=== PATIENT | male | born 1935 | race Caucasian/White ===

== ENCOUNTER → 2021-11-28 | Outpatient (CLI) | payer MEDICARE, SELFPAY ==
[2021-11-28 11:39] LABS: Absolute Lymphocyte Count 3.25 X10^3/uL (0.83-4.51); Absolute Neutrophil Count 2.6 X10^3/uL (2.0-7.7); Basophil# 0.04 X10^3/uL; Basophil% 0.6 % (0-1); Eosinophil# 0.09 X10^3/uL; Eosinophils% 1.4 % (0-5); Hematocrit 43.5 % (40-54); Hemoglobin 14.5 g/dL (13.0-16.5); Lymphocyte # 3.25 X10^3/ul (0.83-4.51); Lymphocyte % 50.5 % (19-41); Mean Corp Hgb Conc 33.3 g/dL (32-36); Mean Corpuscular Hgb 33.2 pg (27.0-32.0); Mean Corpuscular Volume 99.5 fL (80-94); Mean Platelet Vol. 10.8 fl (6.2-12.0); Monocyte# 0.44 X10^3/uL; Monocyte% 6.8 % (0-10); NRBC Flagged by Analyzer 0 % (0-5); Neutrophil # 2.59 X10^3/uL (2.7-7.7); Neutrophil % 40.4 % (47-70); Platelet Count 193 K/mm3 (150-450); RBC Distribution Width CV 13.2 % (11.6-14.6); RBC Distribution Width SD 48.6 fl (35.1-43.9); Red Blood Count 4.37 M/mm3 (4.6-6.2); White Blood Count 6.4 K/mm3 (4.4-11.0)
[2021-11-28 12:07] LABS: ALB/GLOB Ratio 0.9 RATIO (0.9-2.4); AST(SGOT) 19 U/L (15-37); Alanine Aminotransfer ALT/SGPT 16 U/L (16-61); Albumin, Serum 3.4 g/dL (3.2-5.0); Alkaline Phosphatase 55 U/L (45-117); Anion Gap 2 (5-15); BUN 25 mg/dL (7-18); BUN/Creat Ratio 22.1 RATIO (10-20); Chloride 111 mmol/L (98-107); Cholesterol 167 mg/dL (200); Creatinine, Serum 1.13 mg/dL (0.70-1.30); EST Glomerular Filtration Rate 66 mL/min (>60); Est Glom Filt Rate - Afr Amer 79 mL/min (>60); Globulin 3.7 g/dL (2.2-4.2); Glucose 122 mg/dL (74-106); High Density Lipoprotein 54 mg/dL; Potassium 4.6 mmol/L (3.5-5.1); Protein, Total 7.1 g/dL (6.4-8.2); Sodium Level 142 mmol/L (136-145); Triglycerides 67 mg/dL; Very Low Density Lipoprotein 13 mg/dL (5-40)
== END | disposition home or self-care (01) ==
PROVIDERS: PCP Internal Medicine; Referring Provider Internal Medicine; Visit Provider Internal Medicine
DX: E11.9 Type 2 diabetes mellitus without complications (principal)
CPT/HCPCS: 36415; 80053; 80061; 85025

== ENCOUNTER → 2023-01-21 | Outpatient (CLI) | payer MEDICARE, SELFPAY ==
[2023-01-21 11:33] LABS: Bacteria 0 SEEN /hpf (None Seen); Mucous, Urine 0 SEEN /hpf (<or=2+); Red Blood Cells-Urine 0 SEEN /hpf (0-5); Squamous Epithelial Cells - UA 0 SEEN /hpf (0-5); White Blood Cells 0 SEEN /hpf (0-5)
[2023-01-21 12:23] LABS: Color, Urine Yellow (Yellow); Glucose, Dipstick Normal (Normal); Ketone-Dipstick 5 mg/dl (Negative); Leukocyte Esterase-Dipstick Negative /ul (Negative); Nitrite-Dipstick Negative (Negative); Occult Blood-Urine Negative /ul (Negative); Protein-Dipstick Negative (Negative); Urine Bilirubin Dipstick Negative (Negative); Urine Clarity Clear (Clear); Urine Urobilinogen Normal (Normal)
[2023-01-21 12:28] LABS: Erythrocyte Sedimentation Rate 6 mm/hr (0-20)
[2023-01-21 12:30] LABS: Absolute Lymphocyte Count 2.87 X10^3/uL (0.83-4.51); Absolute Neutrophil Count 3.1 X10^3/uL (2.0-7.7); Basophil# 0.04 X10^3/uL; Basophil% 0.6 % (0-1); Eosinophil# 0.08 X10^3/uL; Eosinophils% 1.2 % (0-5); Hematocrit 46.1 % (40-54); Hemoglobin 14.9 g/dL (13.0-16.5); Lymphocyte # 2.87 X10^3/ul (0.83-4.51); Lymphocyte % 43.9 % (19-41); Mean Corp Hgb Conc 32.3 g/dL (32-36); Mean Corpuscular Volume 102.2 fL (80-94); Mean Platelet Vol. 10.5 fl (6.2-12.0); Monocyte# 0.45 X10^3/uL; Monocyte% 6.9 % (0-10); NRBC Flagged by Analyzer 0 % (0-5); Neutrophil # 3.08 X10^3/uL (2.7-7.7); Neutrophil % 47.1 % (47-70); Platelet Count 213 K/mm3 (150-450); RBC Distribution Width CV 13.3 % (11.6-14.6); RBC Distribution Width SD 50.8 fl (35.1-43.9); Red Blood Count 4.51 M/mm3 (4.6-6.2); White Blood Count 6.5 K/mm3 (4.4-11.0)
[2023-01-21 13:27] LABS: ALB/GLOB Ratio 0.9 RATIO (0.9-2.4); AST(SGOT) 14 U/L (15-37); Alanine Aminotransfer ALT/SGPT 15 U/L (16-61); Albumin, Serum 3.5 g/dL (3.2-5.0); Alkaline Phosphatase 84 U/L (45-117); Anion Gap 7 (5-15); BUN 22 mg/dL (7-18); BUN/Creat Ratio 19.8 RATIO (10-20); Calcium,Total 9.2 mg/dL (8.5-10.1); Chloride 109 mmol/L (98-107); Cholesterol 164 mg/dL (200); Creatinine, Serum 1.11 mg/dL (0.70-1.30); EST Glomerular Filtration Rate 67 mL/min (>60); Est Glom Filt Rate - Afr Amer 81 mL/min (>60); Globulin 3.7 g/dL (2.2-4.2); Glucose 129 mg/dL (74-106); High Density Lipoprotein 54 mg/dL; Potassium 4.6 mmol/L (3.5-5.1); Protein, Total 7.2 g/dL (6.4-8.2); Sodium Level 141 mmol/L (136-145); T4 Free Direct 1.15 ng/dL (0.76-1.46); Thyroid Stim Hormone (TSH) 1.86 uIU/mL (0.358-3.74); Triglycerides 88 mg/dL; Very Low Density Lipoprotein 18 mg/dL (5-40)
== END | disposition home or self-care (01) ==
LOC: BIMLAB 08:47
PROVIDERS: PCP Internal Medicine; Referring Provider Internal Medicine; Visit Provider Internal Medicine
DX: E11.9 Type 2 diabetes mellitus without complications (principal); N40.0 Benign prostatic hyperplasia without lower urinary tract symptoms; Z12.5 Encounter for screening for malignant neoplasm of prostate
CPT/HCPCS: 36415; 80053; 80061; 81001; 84153; 84439; 84443; 85025; 85652; G0103

== ENCOUNTER 2023-02-12 12:53 | Observation (INO) | payer MEDICARE, SELFPAY ==
[2023-02-12 12:54] VITALS: BP 141/89; PULSE 74; RESP 18; TEMP 36.6; O2SAT 97; BMI 25.5
--- NOTE | 2023-02-12 14:11 | EX.ED.UPPERE ---
HPI History of Present Illness HPI Narrative: On Wednesday injuring his left upper extremity. Has developed pain, redness and swelling in the forearm and elbow. Was seen today in urgent care they did x-rays of the elbow, left forearm, left hand and wrist. There is soft tissue swelling but no broken bones. Sent to the emergency department. Chief Complaint: Upper Extremity Injury Informant: patient and spouse/S.O. Occured/Mechanism Mechanism/Context: Yes injury and Yes blunt trauma Onset/Context/Timing Onset: Days Context: Sudden Onset Timing: Continuous Quality of Pain: Dull and Aching Current Severity: Moderate Maximum Severity: Moderate Associated Symptoms Associated Symptoms: Negative for Parasthesia Narrative Narrative: 87-year-old male no seen past medical history. States that he tripped and fell at home over his slippers on Wednesday morning since that time he has developed redness and swelling to his left elbow and forearm. Trouble using the left arm. Denies shoulder pain. Denies wrist or hand pain. Was seen in urgent care earlier today had x-ray showing soft tissue swelling but no fracture. He was sent to the emergency department. Prior similar symptoms: No Recent Illness/Hospitalization: No PFSH PFSH Medical History (Updated 02/12/23 @ 15:[address] Mariana Brown MD) Bone fracture BPH (benign prostatic hyperplasia) Change in skin mole Elevated PSA Flu vaccine need Hypertension Type 2 diabetes mellitus Weight loss, non-intentional Home Medications multivitamin (Daily Multi-Vitamin tablet) 1 tab PO DAILY 02/12/23 [History Last Taken 02/12/23] Allergy/AdvReac Type Severity Reaction Status Date / Time shellfish derived Allergy Mild swelling Verified 02/12/23 12:54 in throat Family History Father Melanoma Mother Ovarian cancer Surgical History (Updated 02/12/23 @ 15:[address] Mariana Brown MD) History of dental surgery Social History (Updated 02/12/23 @ 15:[address] Mariana Brown MD) household members: spouse Smoking Status: Never smoker alcohol intake: never substance use type: does not use what type of physical activity do you participate in: none ROS ROS ED ROS Narrative Denies recent illness. Review of Systems ROS Unobtainable: Denies due to encephalopathy Constitutional Constitutional ED: Denies chills or fever(s) Eyes Eyes: Denies blurry vision ENT ENT ED: Denies ear pain Cardiovascular Cardiovascular: Denies chest pain or palpitations Respiratory/Chest Respiratory/Chest: Denies cough or dyspnea Gastrointestinal Gastrointestinal: Denies abdominal pain Genitourinary Genitourinary ED: Denies dysuria or hematuria Musculoskeletal Musculoskeletal: Denies back pain Integumentary Denies abscess Neurologic Neurologic: Denies headache(s) Psychiatric Psychiatric: Denies anxiety Endocrine Endocrinology: Denies cold intolerance Hematologic/Lymphatic Hematologic/Lymphatic: Denies easy bleeding or easy bruising Allergic/Immunologic Allergic/Immunologic ED: Denies mouth swelling or tongue swelling EXAM Physical Exam Narrative Exam Narrative: 87-year-old male. Vital signs stable afebrile. HEENT exam unremarkable atraumatic. Moist mucous membranes. Neck nontender. Back spine nontender. Lungs clear to auscultation bilaterally. Heart regular rhythm rate about 70 no murmur. Chest wall and ribs nontender. Abdomen soft nontender. Right upper and both lower extremities are nontender. No deformity. Normal range of motion. Normal strength. He does have 1+ pitting edema both lower extremities which is chronic. The left shoulder is nontender is able to shrug the shoulder. There is no deformity. From the left elbow down to the left hand is swollen. Redness consistent with cellulitis of the elbow and proximal and mid forearm. There does not appear to be a septic joint. He can flex and extend the elbow. He has a strong radial pulse. He has hairspring staker strength in his left hand. And sensation. Neurologically he is awake and alert. Answering questions and following commands. Const Vital Signs: 02/12/23 12:54 Temperature 97.8 F Temperature Source Temporal Pulse Rate 74 Respiratory Rate 18 Blood Pressure 141/89 H Blood Pressure Mean 106 Pulse Ox 97 Oxygen Delivery Method Room Air Positive well nourished and well developed; Negative for cachectic, contractures or unkempt General Appearance ED: well developed and NAD; Negative for unkempt, cachectic, contractures, cyanotic or diaphoretic Nutritional Appearance: Negative for cachectic HEENT Reports moist mucous membranes normocephalic and atraumatic; Negative for trauma or tenderness Eyes PERRL and EOMs intact bilaterally General Eye ED: Negative for other Neck full ROM and supple General: Negative for tenderness Lymph Lymphatic: Negative for other Chest Wall inspection of chest normal and palpation of chest normal Chest: Negative for other Resp normal respiratory effort and clear to auscultation bilaterally Effort and Inspection: Negative for pain with movement Auscultation: Negative for rales, rhonchi, wheezes or diminished lung sounds Cardio regular rate, regular rhythm, S1 normal heart sound, S2 normal heart sound and no murmurs Rate: Negative for bradycardia or tachycardic GI non-tender, non-distended and no masses Inspection: Negative for abdominal distention Auscultation: normoactive bowel sounds Palpation: soft; Negative for tender or guarding Bladder / Kidney Exam: No other Back/Spine no CVA tenderness General Back: Negative for CVA tenderness Cervical Spine: Negative for cervical spine tenderness Thoracic Spine / Upper Back: Negative for thoracic spinal tenderness Lumbar Spine / Lower Back: Negative for lumbar spinal tenderness Extremity Negative for normal to inspection Extremity Narrative: Left arm cellulitis. From the elbow to the wrist. Normal hairspring staker strength. Normal radial pulse. Swelling of the forearm, elbow and hand. The proximal humerus is nontender. No deformity. He is able to shrug his shoulder. Normal touch sensation in his hand. Normal radial pulse. General Extremety ED: Yes edema General Extremity: edema Neuro oriented x3, CN's II-XII intact bilaterally and moves all extremities Sensorium / Orientation: alert, oriented to person, oriented to place and oriented to time; Negative for orientation impaired, lethargic or stuporous Motor Exam: strength 5/5 throughout Psych mental status grossly normal Appearance: Negative for unkempt Attitude: No agitated Mood & Affect: Negative for depressed, anxious or tearful Skin Skin Narrative: Cellulitis left forearm. General Skin Exam: Negative for petechiae Lesions: no lesions Rashes: No no rashes MDM MDM MDM Narrative Medical decision making narrative: There is [id number] male who has had recent falls. Is soft tissue swelling to his left arm. There is also cellulitis. Will be started on IV Unasyn. Screening labs to be obtained. He had x-rays already done at the urgent care today I reviewed them the elbow, forearm, wrist and hand have no acute fractures. Soft tissue swelling. I am can obtain an x-ray of his humerus but I do not believe there to be a fracture. No signs of a septic joint and he can flex and extend the elbow and the wrist. Repeat exam patient doing well at 2:58 PM. Given morphine for pain Zofran to prevent nausea. Will be placed in a long arm posterior splint of the left upper arm to immobilize the midshaft humerus fracture. He will be admitted to medicine and they can consult orthopedics. History & Record Review Discussion w/independent historian: Patient and Family Additional record(s) reviewed:: Prior inpatient record, Prior outpatient record, Prior ED visit and Prior labs Lab Data Attestation: I reviewed the patient's lab results. Lab results narrative: CBC unremarkable. White count of 7. H&H 14 and 44. Chemistries unremarkable other than BUN 28 creatinine 1. Glucose 145. Admitting physician ordered a noninvasive study of the left upper extremity there was no signs of any DVT. Radiography Diagnostic Testing: Left humerus x-ray 2 views interpreted by myself shows a midshaft humerus fracture with mild angulation. Procedures Upper Extremity Splints Upper Extremity Splint: Orthoglass and Long arm Splint Fabrication: Fabricated Location: Left Discharge Plan Dx/Rx/DC Orders Clinical Impression: Fall, Cellulitis of arm, left, Closed left humeral fracture, History of diabetes mellitus Disposition Disposition: Acute Care Hospital [facility]
--- NOTE | 2023-02-12 14:20 | RAD_ITS ---
STUDY: X-RAY - LEFT HUMERUS REASON FOR EXAM: Male, 87 years old. Pain following a fall. TECHNIQUE: 2 view(s) of the humerus. COMPARISON: None. FINDINGS: Transverse fracture through the mid humeral diaphysis. This is suspicious for a pathological fracture. There is no demonstrated fracture or osseous destructive process. Soft tissue swelling. RAD/Humerus min 2 Views IMPRESSION: Transverse fracture through the mid humeral diaphysis. This is suspicious for a pathological fracture. Electronically Signed: Jai Menjviar MD at 14:42 EDT ,
[2023-02-12 14:26] LABS: Absolute Lymphocyte Count 1.81 X10^3/uL (0.83-4.51); Absolute Neutrophil Count 5.2 X10^3/uL (2.0-7.7); Basophil# 0.03 X10^3/uL; Basophil% 0.4 % (0-1); Eosinophil# 0.04 X10^3/uL; Eosinophils% 0.5 % (0-5); Hematocrit 44.4 % (40-54); Hemoglobin 14.4 g/dL (13.0-16.5); Lymphocyte # 1.81 X10^3/ul (0.83-4.51); Lymphocyte % 23.5 % (19-41); Mean Corp Hgb Conc 32.4 g/dL (32-36); Mean Corpuscular Hgb 32.7 pg (27.0-32.0); Mean Corpuscular Volume 100.7 fL (80-94); Mean Platelet Vol. 9.2 fl (6.2-12.0); Monocyte# 0.63 X10^3/uL; Monocyte% 8.2 % (0-10); NRBC Flagged by Analyzer 0 % (0-5); Neutrophil # 5.15 X10^3/uL (2.7-7.7); Neutrophil % 66.8 % (47-70); Platelet Count 160 K/mm3 (150-450); RBC Distribution Width SD 48.6 fl (35.1-43.9); Red Blood Count 4.41 M/mm3 (4.6-6.2); White Blood Count 7.7 K/mm3 (4.4-11.0)
[2023-02-12 14:32] VITALS: BP 150/67; PULSE 77; RESP 20; O2SAT 98
--- OUTSIDE RECORDS SUMMARY | 2023-02-12 14:35 | XMS RPT_ITS | CCD ---
Author Name Unknown Address [address] [place] [address] Organization [facility] Care Team Providers Care Religious Activities Director Name Role Phone Catarina Corcoran MD Primary Care Provider Allergies Allergy Classification Reported Allergen(s) Allergy Type Date of Onset Reaction(s) Facility (1 source) Shellfish Drug Allergy 12-12-2015 Swelling [facility] Medications Completed/Discontinued Medications Medication Drug Class(es) Dates Sig (Normalized) Sig (Original) 24 hr metFORMIN hydrochloride 500 mg extended release oral tablet (2 sources) Biguanide Start: 12-13-2020 End: 12-10-2021 metFORMIN ER (GLUCOPHAGE XR) 500 mg 24 hr tablet Indications: Controlled type 2 diabetes mellitus with stage 3 chronic kidney disease, without long-term current use of insulin (HCC) TAKE 1 TABLET BY MOUTH EVERY DAY WITH BREAKFAST 90 tablet 0 12/10/2021 Active Problems Active Problems Problem Classification Problem Date Documented Da te Episodic/Chronic Diabetes mellitus with complications (1 source) Type 2 diabetes mellitus; Translations: [Type 2 diabetes mellitus with diabetic chronic kidney disease] Chronic Past or Other Problems Problem Classification Problem Date Documented Da te Episodic/Chronic Fracture of lower limb (1 source) Closed fracture of fibula; Translations: [Unspecified fracture of shaft of unspecified fibula, initial encounter for closed fracture] Onset: 12-24-2015 12-24-2015 Episodic Results Test Name Value Interpretation Reference Range Facil ity Encounters Encounter Date Encounter Type Care Provider Facility Start: 12-10-2021 Refill Glen Roach PRN.CNP Work Phone: [facility] Plan of Treatment Date Care Activity Detail Author Start: 11-23-2023 DIABETES SCREEN DIABETES SCREEN [facility] Start: 01-22-2022 Influenza vaccination INFLUENZA (#1) [facility] Start: 05-24-2021 ADVANCE DIRECTIVE DISCUSSION ADVANCE DIRECTIVE DISCUSSION [facility] Start: 02-18-2021 COVID-19 VACCINE (3 - Booster for Moderna series) COVID-19 VACCINE (3 - Booster for Moderna series) [facility] Start: 02-07-2021 PNEUMOCOCCAL: 65+ (2 - PPSV23 or PCV20) PNEUMOCOCCAL: 65+ (2 - PPSV23 or PCV20) [facility] Start: 1954 Urine microalbumin profile DTAP,TDAP ,TD (1 - Tdap) [facility] Immunizations Immunization Date Immunization Notes Care Provider Fa clay 09-18-2020 COVID-19 vaccine, fu ll dose (MODERNA) Glen Montalvo APRN.[facility] Work Phone: [facility] 08-20-2020 COVID-19 vaccine, fu ll dose (MODERNA) Glen Montalvo APRN.[facility] Work Phone: [facility] Work Phone: 04-11-2020 zoster vaccine recombinant Glen Montalvo APRN.[facility] Work Phone: [facility] Work Phone: 02-08-2020 influenza, injectabl e, quadrivalent, preservative free Glen Montalvo APRN.[facility] Work Phone: [facility] Work Phone: 02-08-2020 pneumococcal conjuga te vaccine, 13 valent Glen Montalvo APRN.[employer]PER[employer] Work Phone: [facility] Work Phone: 02-08-2020 zoster vaccine recombinant Glen Montalvo APRN.[employer] SUPERVISOR Work Phone: [facility] Work Phone: Payers Date Payer Category Payer Medicare A[employer] MEDICARE A ETNA MEDICARE PPO [id number] 2014-Present [phone] [address] [place] [address] PPO 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) [facility] Start: 1935 Sex Assigned At Not on file [facility] Note 12-10-2021 Telephone Encounter - Sania Gregory APRN.CNP - 12/10/2021 2:44 PM EDTTelephone Encounter - Kimi Reyes - 12/10/2021 8:02 AM EDT Note Date & Type Note Facility 12-10-2021 Miscellaneous Notes Patient is overdue for annual exam Thank you Sania Gregory APRN.[facility] electronically sent a request for the following prescription(s) Pending Prescriptions Disp Refills METFORMIN ER 500 MG TABLET,EXTENDED RELEASE 24 HR 90 tablet 3 Sig: TAKE 1 TABLET BY MOUTH EVERY DAY WITH BREAKFAST MICA: Yes Patient aware RX will be sent to pharmacy. No need to notify patient. Last Office Visit: 09/20/2020 with Glen Montalvo CNP Next Office Visit: NONE Please review. Kimi Reyes documented in this encounter [facility] Progress note 11-28-2020 Note Date & Type Note Facility 11-28-2020 Note HNO ID: [id number] Author: Sophia Pineda LPN Service: ? Author Type: ? Type: Progress Notes Filed: 11/28/2020 10:01 AM Note Text: Manual Readin/80 Pulse: 104 BP [place] average: 132/79 P: 105 Repeat BP Check: 147/86 P111 #1 135/79 P105 #2 131/76 P102 #3 128/79 P108 #4 129/77 P102 #5 123/74 P99 #6 Reason for blood pressure check - Last BP elevated Patient is: Taking medication as prescribed Yes Took medication today Yes If no, date medication last taken N/A Experiencing side effects No BP was elevated at last appt 09/20/20. No BP medication changes were made at that time. Taking all medications as prescribed. Denies any chest pain, shortness of breath, dizziness, or headaches. Daily caffeine use; none today. No personal history of tobacco use; no current exposure. Alert and oriented. Pt has been identified by name and birthdate: Yes Allergies reviewed: Yes Latex allergy: no. Medication - prescribed and OTC reviewed and updated: Yes Do you need any prescription refills prior to your next visit: No Health Maintenance: Reviewed and not up to date and provider notified Patient advised to continue with current medications and would be contacted if any further instructions after review by PCP. Sophia Pineda LPN [facility] Progress note 09-20-2020 Note Date & Type Note Facility 09-20-2020 Note HNO ID: [id number] Author: Glen Montalvo APRN.[employer] SUPERVISOR Service: ? Author Type: Nurse Practitioner Type: Progress Notes Filed: 09/23/2020 8:09 AM Note Text: CC: Patient presents with: Follow Up: DM follow up; rx refills HPI Serafin Reyes is a 85 year old male who presents today for DM follow up. DIABETES MELLITUS: Mr. Reyes was last seen 1 year ago. Since our last visit he denies excessive thirst or increased frequency of urination, new or unusual visual symptoms, low sugar/hypoglycemic reactions, weight loss/gain, lightheadedness/dizziness and bowel changes/loose stools. He has avoided white sugar for the last year until recently- accidentally had sugar in his coffee. Weight is stable. Patient's last HgA1C was Hemoglobin A1C (%) Date Value 06/04/2020 5.7 08/31/2019 5.9 ) Eye exam: in the last 2 months. Small adjustment to prescription. Elevated BP in office today. Denies any new headaches, chest pain, palpitations, edema or dizziness. BP 143/87 at home this morning HR 86. Admits he may have been consuming more salt recently Mood: notes that COVID has triggered some increased emotions. Noting over the last year- doesn't go anywhere, weather kept him indoors. 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 Also reflecting on life- several friends or close acquaintances are . Patient is somewhat tearful during our discussion. Patient admits that he has not routinely admitted his feelings to his providers, thanked him for trusting me enough to share this information. No SI/HI. Not interested in medication. Looking forward to warmer weather. Recently completed the COVID vaccine series, hopeful this will allow for more socialization REVIEW OF SYSTEMS General: no fevers, no chills, no change in appetite, no change in energy and no significant changes in weight HEENT: no frequent or significant headaches, no visual changes, no sinus or nasal problems Respiratory: no cough, no wheezing, no shortness of breath Cardiovascular: no chest pain, no chest pressure, no palpitations and no swelling GI: No nausea, vomiting, or diarrhea : Negative for dysuria and hematuria, Positive for frequency every 1.5-2 hours, chronic Endocrine: no fatigue, no weight gain, no weight loss, no polyuria, no polyphagia and no polydipsia Neurologic: no headaches, no syncope, no dizziness Psych: see HPI See HPI No past medical history on file. PAST SURGICAL HISTORY Procedure Laterality Date - NONE ALLERGIES Shellfish Derived MEDICATIONS metFORMIN ER (GLUCOPHAGE XR) 500 mg 24 hr tablet Take 1 tablet by mouth daily with breakfast. multivit-min/FA/lycopen/lutein (CENTRUM SILVER MEN ORAL) Take by mouth. polyethylene glycol 3350 (MIRALAX, GLYCOLAX) 17 gram/dose powder Take 17 g by mouth once daily. Drink a mix of 1 scoop in 8oz of water/beverage once daily as needed for constipation. FAMILY HISTORY Problem Relation Age of Onset - Cancer Mother ovarian - Cancer Father melanoma - Diabetes Unknown - Diabetes Father - Diabetes Unknown Social History Tobacco Use - Smoking status: Former Smoker Years: 1.00 Types: Cigarettes - Smokeless tobacco: Never Used Substance Use Topics - Alcohol use: No - Drug use: No PHYSICAL EXAM BP 150/96 Pulse 88 Resp 16 Ht 179.1 cm (5' 10.5 ) Wt 84.4 kg (186 lb) BMI 26.31 kg/m? General Appearance: well appearing, in no acute distress, alert Pysch: mood and affect broad and appropriate, tearful at times as above Skin: Skin color, texture, turgor normal for age; Head: normocephalic, atraumatic Eyes: EOM's intact, conjunctiva pink and moist, no icterus, sclera white, non-injected Lungs: Lungs clear to auscultation. No wheezing, rhonchi, rales. Heart: RRR without murmur, gallop, or rubs. No ectopy Bilateral Lower Extremities: no edema DTAP,TDAP,TD(1 - Tdap) Never done SHINGRIX VACCINE(1 of 2) Never done ADVANCE DIRECTIVE DISCUSSION Never done PNEUMOVAX AGE 65 AND OVER WITH 5YR LOOKBACK(1) Never done COVID-19 VACCINE(2 - Moderna 2-dose series) due on 09/17/2020 DIABETES SCREEN due on 06/04/2023 INFLUENZA Completed MENINGOCOCCAL CONJUGATE Aged Out ASSESSMENT/PLAN: 1. Controlled type 2 diabetes mellitus with stage 3 chronic kidney disease, without long-term current use of insulin (HCC) - ICD9: 250.40, 585.3, ICD10: E11.22, N18.30 (primary diagnosis) Controlled. - Continue current medications - Check HgA1C and BMP in October 2020 as discussed - Follow up in 6 months, sooner should any other issues arise. - BP goal of <130/80 - LDL goal of <100 - BMP (BMP) (FOR REMOTE [facility] USE) - HEMOGLOBIN A1C (FOR REMOTE [facility] USE) 2. Elevated blood pressure reading without diagnosis of hypertension - ICD9: 796.2, ICD10: R03.0 - Encouraged dietary sodium restriction/DASH diet - Recheck in 2-4 weeks, sooner if needed. 3. Situation (more content not included)... [facility] Evaluation note Note Date & Type Note Facility documented in this encounter [facility] Summary Purpose Family History No Family History Records Found Advance Directives No Advanced Directives Records Found Additional Source Comments (unrecognized sect ion and content) No Status Records Found INFORMATION SOURCE (unrecogn ized section and content) Source Comments (unrecognize d section and content) In the event this informatio n is protected by the Federal Confidentiality of Alcohol and Drug Abuse Patient Records regulations: The Federal rules restrict any use of the information to criminally investigate or prosecute any alcohol or drug abuse patient.[facility] Reason for Visit (unrecogniz ed section and content) Care Teams (unrecognized sec tion and content) FOR RECORDS PERTAINING TO PATIENTS WHO ARE OR HAVE BEEN ENROLLED IN A CHEMICAL DEPENDENCY/SUBSTANCEABUSE PROGRAM, SOME INFORMATION MAY BE OMITTED. This clinical summary was aggregated from multiple sources. Caution should be exercised in using it in the provision of clinical care. This summary normalizes information from multiple sources, and as a consequence, information in this document may materially change the coding, format and clinical context of patient data. In addition, data may be omitted in some cases. CLINICAL DECISIONS SHOULD BE BASED ON THE PRIMARY CLINICAL RECORDS. [facility]. provides no warranty or guarantee of the accuracy or completeness of information in this document.
[2023-02-12] MEDS: Ampicillin/Sulbactam 3 GM in 0.9% Normal Saline (100mL MB+) 100 ML IV ×2 (14:41→23:26)
[2023-02-12 14:42] LABS: Anion Gap 1 (5-15); BUN 28 mg/dL (7-18); BUN/Creat Ratio 26.4 RATIO (10-20); Calcium,Total 8.9 mg/dL (8.5-10.1); Chloride 110 mmol/L (98-107); Creatinine, Serum 1.06 mg/dL (0.70-1.30); EST Glomerular Filtration Rate 70 mL/min (>60); Est Glom Filt Rate - Afr Amer 85 mL/min (>60); Estimated Creatinine Clearance 52.61 ml/min; Glucose 145 mg/dL (74-106); Potassium 3.6 mmol/L (3.5-5.1); Sodium Level 142 mmol/L (136-145)
[2023-02-12] MEDS: Morphine 4 MG/ML Syringe IV ×2 (15:00→16:00)
[2023-02-12] MEDS: Ondansetron 4 MG/2 ML Vial IV (15:00)
--- NOTE | 2023-02-12 15:28 | VDUE_ITS ---
Reason For Study: Left arm swelling Left Proximal Left jugular vein is spontaneous, widely patent, phasic, with no intraluminal echogenicity noted. Left subclavian vein is spontaneous, widely patent, phasic, with no intraluminal echogenicity noted. Left Arm Left axillary vein is spontaneous, patent, phasic, competent, compressible and demonstrates augmentation. Left brachial vein is compressible. Left cephalic vein is compressible. Left basilic vein is compressible. Left Lower Arm Left radial vein is compressible. Left ulnar vein is compressible. Patient Safety Preliminary report given to Dr. Gusman and Cathryn RN. VL/Venous Duplex US, Unilateral Interpretation Summary Deep veins of the left upper extremity are patent and compressible segmentally. There is no evidence of deep vein thrombosis. Superficial veins of the left upper extremity are patent and compressible segme ntally. There is no evidence of superficial vein thrombosis. Ordering Physician: Mariana Brown Referring Physician: Maximiliano Kyle Performed By: Judy Dorman RVT ???
--- NOTE | 2023-02-12 15:28 | PCM.HP.STD ---
HPI - General General Date of Admission: 02/12/23 Date of Service: 02/12/23 Chief Complaint: LUE pain, redness, swelling s/p fall. HPI Narrative The patient is an 87 y/o M w/ PMHx: BPH, HTN, Diabetes mellitus type II who presents to the [facility] ED on 02/12/23 with history of mechanical fall on 02/08/23 with unclear injury pattern but since then left arm discomfort and swelling as well as redness prompting initially evaluation at the urgent care earlier in the day reporting difficulty moving it since with increased redness and swelling over the last 48 hours with no fevers or chills with plain films at their site with specifically of forearm, hand and elbow film with no obvious findings per report as well as no acute finding per radiology follow-up read at that time however encouraged ED follow-up given appearance and ongoing discomfort. In the ED upon arrival patient with significant swelling from the left elbow down to the left hand with erythema from the elbow region as well as in the proximal and mid forearm consistent with cellulitic findings with appropriate sensation and energy conservation representative strength with dressing and splint taken down for duplex while in the room. Discussed weight loss as patient had noted initially unintentional weight loss however from discussion starting in 2019 when he had an elevated hemoglobin A1c he did alter his diet notably and lost weight with most recently potentially over the last several months a 6 to 7 pound weight loss but he does report that this amount of weight was not intentional. With dressing and splint takedown in the room patient reporting pain increased to the left upper extremity with muscle fasciculations with pain dull/aching/throbbing 8 out of 10 in severity work-up in the ED included vital signs with T97.8, heart rate 74, BP 141/89, respiratory rate 18, 97% on room air, CBC with WBC 7.7, hemoglobin 14.4, platelet 160 without marked shift, BMP with chloride 110, BUN/creatinine 28/1.06, glucose 145 otherwise no marked findings, plain film of the left humerus with a transverse fracture through the mid humeral diaphysis suspicious for pathological fracture. Given findings on plain film of the humerus patient was placed in a long-arm posterior splint to immobilize the midshaft humeral fracture. In the ED patient ministered Unasyn, morphine 4 mg IV x1, Zofran 4 mg IV x1. ED physician discussed case with Dr. Starks Orthopedic surgery who noted intention to see patient in consult. [facility] Medical History (Updated 02/12/23 @ 15:[address] Mariana Brown MD) Bone fracture BPH (benign prostatic hyperplasia) Change in skin mole Elevated PSA Flu vaccine need Hypertension Type 2 diabetes mellitus Weight loss, non-intentional Home Medications multivitamin (Daily Multi-Vitamin tablet) 1 tab PO DAILY 02/12/23 [History Last Taken 02/12/23] Allergy/AdvReac Type Severity Reaction Status Date / Time shellfish derived Allergy Mild swelling Verified 02/12/23 12:54 in throat Family History Father Melanoma Mother Ovarian cancer Surgical History (Updated 02/12/23 @ 15:[address] Mariana Brown MD) History of dental surgery Social History (Updated 02/12/23 @ 15:[address] Mariana Brown MD) household members: spouse Smoking Status: Never smoker alcohol intake: never substance use type: does not use what type of physical activity do you participate in: none ROS ROS Narrative Admission Review of Systems: CONSTITUTIONAL: No weight loss, fever, chills, + weakness or fatigue. HEENT: Eyes: No visual loss, blurred vision, double vision or yellow sclerae. Ears, Nose, Throat: No hearing loss, sneezing, congestion, runny nose or sore throat. SKIN: + Left upper extremity erythema, edema, pain. CARDIOVASCULAR: + Left upper extremity pain status post fall otherwise no peripheral l edema. No chest pain, chest pressure or chest discomfort, palpitations, orthopnea, syncopal events. RESPIRATORY: No shortness of breath, cough or sputum, wheezing, hemoptysis. GASTROINTESTINAL: No anorexia, nausea, vomiting or diarrhea, abdominal pain, melena, BRBPR. GENITOURINARY: No dysuria, frequency, urgency or retention. NEUROLOGICAL: No headache, dizziness, syncope, paralysis, ataxia, numbness or tingling in the extremities, focal weakness, change in bowel or bladder control, seizure. MUSCULOSKELETAL: + muscle, back pain, joint pain or stiffness. HEMATOLOGIC: + Easy bleeding or bruising. LYMPHATICS: No enlarged nodes. No history of splenectomy. PSYCHIATRIC: No history of depression or anxiety. ENDOCRINOLOGIC: No reports of sweating, cold or heat intolerance. No polyuria or polydipsia. ALLERGIES: + history of significant shellfish allergy. Vital Signs Vital Signs Vital Signs: 02/12/23 12:54 02/12/23 14:32 Temperature 97.8 F Temperature Source Temporal Pulse Rate 74 77 Respiratory Rate 18 20 H Blood Pressure 141/89 H 150/67 H Blood Pressure Mean 106 94 Pulse Ox 97 98 Oxygen Delivery Method Room Air Room Air Weight Weight: 178 lb Body Mass Index (BMI) 25.5 Physical Exam Narrative Physical Examination: General: Awake, alert, oriented x 3 and cooperative, seated upright in the ED bed in no apparent distress but with takedown of the splint for duplex he does report 10 out of 10 focal pain to the left upper extremity with some shaking and muscle fasciculation associated. Skin: Normal color, normal turgor, no icterus, no cyanosis except significant swelling from the left elbow down to the left hand with erythema from the elbow region as well as in the proximal and mid forearm as well as occasional staged ecchymoses and abrasion to the extremities. HEENT: AT/NC, EOMI, PERRLA, mildly dry MM, no carotid bruits or JVD noted. Lungs: CTA bilaterally, moderate effort, mild decrease BL bases, no rales, ronchi or wheezing. Heart: Regular rate and rhythm; no gallop, rub audible. Abdomen: Soft, NTTP, ND, hyperactive BS, no HSM. Extremities: No cyanosis, no clubbing, see skin as noted above. Neurological: Patient awake, alert, oriented as noted, cognitive function intact; pupils equally reactive to light and accommodation, cranial nerves grossly normal, moving all 4 extremities except extremely limited left upper extremity movement given fracture and pain elicited as well as initially splint in place, strength accordingly moderately globally decreased. Psychiatric: Affect appears uncomfortable, fatigued, no acute evidence of depressive or anxiety feelings. Results Lab / Micro Data 02/12/23 14:18 02/12/23 14:18 Labs: Laboratory Results - last 24 hr 02/12/23 14:18: WBC 7.7, RBC 4.41 L, Hgb 14.4, Hct 44.4, MCV 100.7 H, MCH 32.7 H, MCHC 32.4, RDW Std Deviation 48.6 H, RDW Coeff of Danilo 13.0, Plt Count 160, MPV 9.2, Immature Gran % (Auto) 0.600, Neut % (Auto) 66.8, Lymph % (Auto) 23.5, Brooks % (Auto) 8.2, Eos % (Auto) 0.5, Baso % (Auto) 0.4, Absolute Neuts (auto) 5.2, Absolute Lymphs (auto) 1.81, Nucleated RBC % 0, Sodium 142, Potassium 3.6, Chloride 110 H, Carbon Dioxide 31.0, Anion Gap 1 L, BUN 28 H, Creatinine 1.06, Estim Creat Clear Calc 52.61, Est GFR (MDRD) Af Amer 85, Est GFR (MDRD) Non-Af 70, BUN/Creatinine Ratio 26.4 H, Glucose 145 H, Calcium 8.9 Radiology Impression Humerus X-Ray 02/12/23 14:20 IMPRESSION: Transverse fracture through the mid humeral diaphysis. This is suspicious for a pathological fracture. Electronically Signed: Jai Menjivar MD at 14:42 EDT , Assessment & Plan Assessment/Plan (1) Closed left humeral fracture: (2) Cellulitis of arm, left: PLAN: Plan The patient is an 87 y/o M w/ PMHx: BPH, HTN, Diabetes mellitus type II who presents to the [facility] ED on 02/12/23 with history of mechanical fall on 02/08/23 with unclear injury pattern but since then left arm discomfort and swelling as well as redness prompting initially evaluation at the urgent care earlier in the day reporting difficulty moving it since with increased redness and swelling over the last 48 hours with no fevers or chills with plain films at their site with specifically of forearm, hand and elbow film with no obvious findings per report as well as no acute finding per radiology follow-up read at that time however encouraged ED follow-up given appearance and ongoing discomfort. #1. Mechanical fall with left humeral transverse fracture through the mid humeral diaphysis complicated by concurrent Acute Cellulitis as well as noted radiology read noting questionable pathologic however patient did fall of note: Will admit to medical surgical floor, maintain on IV Unasyn, requested MRSA PCR, plan repeat CBC in AM, continue affected extremity elevation above heart when seated and in bed, sling, ice application, will continue posterior splint initiated per ED with nonweightbearing status, monitor erythema outline with VS checks, will request duplex US to assure no DVT concurrently, orthopedic surgery consulted and evaluation pending but given concern for possible possible pathologic may need further imaging but will defer to Orthopedic surgery discretion. #2. Initially reported unintentional weight loss: Lengthy discussion with patient and he notes attempted diet changes given elevated blood sugars in 2019 with weight loss following which was at that time intentional however the last several months he reports approximately 6 to 7 pound weight loss and this has been unintentional thus the drop in weight has not been as severe. He does report that he felt as though he was eating less well but cannot give exact specifics. We will continue to monitor I's and O's and awaiting surgery follow-up as noted above #1 given radiology comments about possible pathologic nature. #3. Diabetes mellitus type II, reportedly diet controlled: Not on regimen per current review but prior PCP visit with metformin usage, glucose upon presentation 145, 01/20/23 POC in office with PCP noted to be 6.2%, mildly increased from the prior 5.7%, will maintain on ADA diet, accu checks w/ ISS and encourage lifestyle/diet changes with ongoing close PCP follow-up. #4. Hypertension, not on regimen: Noted in history, BP mildly above goal upon presentation but given age not severe, will continue to monitor and add oral regimen if appropriate but in the interim we will maintain on IV as needed hydralazine. #5. BPH: Per home medication list not on regimen however if necessary urinary retention issues may add Flomax. #6. DVT prophylaxis: SCDs, hold chemoprophylaxis pending orthopedic surgery evaluation in case of OR needs. #7. CODE status: Patient does note have HCPOA or LW in place. Notes his who is present would be his decision maker if he was unable. Discussed CODE status at length including difference between FULL code, DNR-CCA and DNR-CC status. He notes several mates who decided to have no interventions and he is current unsure. Following discussions about the differences in these status, requested to be placed as full code status at this time but would think further on it and if he changes his mind will notify staff. Advanced Care Planning Face to Face Time: 16 minutes. Charges/Coding Visit Charges Inpatient E&M: 72945 Init Hosp L3 Procedures Hospitalists Procedures: 75471 Advncd Care Plan 30 Min
[2023-02-12 15:44] VITALS: BP 160/76; PULSE 85; RESP 20; TEMP 36.8; O2SAT 95
--- OUTSIDE RECORDS SUMMARY | 2023-02-12 15:53 | XMS RPT_ITS | CCD ---
Author Name Unknown Address [address] [place] [address] Organization [facility] Care Team Providers Care Manager Of Manufacturing Name Role Phone Catarina Corcoran MD Primary Care Provider Allergies Allergy Classification Reported Allergen(s) Allergy Type Date of Onset Reaction(s) Facility (1 source) Shellfish Drug Allergy 12-12-2015 Swelling [facility] Medications Completed/Discontinued Medications Medication Drug Class(es) Dates [...] Glen Roach PRN.CNP Work Phone: Internal Medicine [facility] Plan of Treatment Date Care Activity Detail Author Start: 11-23-2023 DIABETES SCREEN DIABETES SCREEN [facility] Start: 01-22-2022 Influenza vaccination INFLUENZA (#1) [facility] Start: 05-24-2021 ADVANCE DIRECTIVE DISCUSSION ADVANCE DIRECTIVE DISCUSSION [facility] Start: 02-18-2021 COVID-19 VACCINE (3 - Booster for Moderna series) COVID-19 VACCINE (3 - Booster for Moderna series) [facility] Start: 02-07-2021 PNEUMOCOCCAL: 65+ (2 - PPSV23 or PCV20) PNEUMOCOCCAL: 65+ (2 - PPSV23 or PCV20) [facility] Start: 1954 Urine microalbumin profile DTAP,TDAP ,TD (1 - Tdap) [facility] Immunizations Immunization Date Immunization Notes Care Provider Fa clay 09-18-2020 COVID-19 vaccine, fu ll dose (MODERNA) Glen Montalvo APRN.[facility] Work Phone: [facility] 08-20-2020 COVID-19 vaccine, fu ll dose (MODERNA) Glen Montalvo APRN.[facility] Work Phone: [facility] Work Phone: 04-11-2020 zoster vaccine recombinant Glen Montalvo APRN.[facility] Work Phone: [facility] Work Phone: 02-08-2020 influenza, injectabl e, quadrivalent, preservative free Glen Montalvo APRN.[facility] Work Phone: [facility] Work Phone: 02-08-2020 pneumococcal conjuga te vaccine, 13 valent Glen Montalvo APRN.M48 M60 [employer] Work Phone: [facility] Work Phone: 02-08-2020 zoster vaccine recombinant Glen Montalvo APRN.M48 M60 [employer] Work Phone: [facility] Work Phone: Payers Date Payer Category Payer Medicare [employer] MEDICARE A ETNA MEDICARE PPO [id number] 2014-Present [phone] [address] [place] [address] PPO [id number] Social History Date Type Detail Facility Start: 12-24-2015 [facility] Work Phone: History of tobacco use Cigarette Smoker [facility] Work Phone: Start: 12-24-2015 Tobacco use and exposure Smokeless tobacco non-user [facility] Work Phone: Start: 11-28-2020 Alcohol intake Current non-dr typist of alcohol (finding) [facility] Start: 1935 Sex Assigned At Not on file [facility] Note 12-10-2021 Telephone Encounter - Sania [...] review. Kimi Reyes documented in this encounter [facility] Progress note 11-28-2020 Note Date & Type Note Facility 11-28-2020 Note HNO ID: [id number] Author: Sophia Pineda LPN Service: ? Author [...] after review by PCP. Sophia Pineda LPN [facility] Progress note 09-20-2020 Note Date & Type Note Facility 09-20-2020 Note HNO ID: [id number] Author: Glen Montalvo APRN.M48 M60 [employer] Service: ? Author Type: Nurse Practitioner Type: [...] of <100 - BMP (BMP) (FOR REMOTE COUNTS INCLUDE 234 BEDS AT THE [facility] USE) - HEMOGLOBIN A1C (FOR REMOTE COUNTS INCLUDE 234 [facility]S AT THE [facility] USE) 2. Elevated blood pressure reading without diagnosis of hypertension - ICD9: 796.2, ICD10: R03.0 - Encouraged dietary sodium restriction/DASH diet - Recheck in 2-4 weeks, sooner if needed. 3. Situation (more content not included)... [facility] Evaluation note Note Date & Type Note Facility documented in this encounter [facility] Summary Purpose Family History No Family History [...] or prosecute any alcohol or drug abuse patient.[facility] Reason for Visit (unrecogniz ed section and [...] BE BASED ON THE PRIMARY CLINICAL RECORDS. [employer] [facility]. provides no warranty or guarantee of the accuracy or completeness of information in this document.
[2023-02-12 16:05] LABS: Magnesium 2.5 mg/dL (1.6-2.6)
[2023-02-12 16:45] VITALS: BP 138/76; PULSE 80; PULSE 94; RESP 18; TEMP 37; O2SAT 98; BMI 25.5
[2023-02-12 17:38] LABS: Bedside Glucose 76 mg/dL (74-106)
[2023-02-12 20:30] VITALS: O2SAT 98
[2023-02-12] MEDS: 0.9% Normal Saline (1000mL) 1,000 ML 100 ML IV (21:11)
[2023-02-12 21:14] VITALS: BP 142/71; PULSE 76; RESP 16; TEMP 36.6; O2SAT 97
[2023-02-12 21:52] LABS: Bedside Glucose 170 mg/dL (74-106)
[2023-02-13] VITALS (8 sets, daily range): BP systolic 97–114; BP diastolic 66–69; PULSE 87–100; RESP 16–18; TEMP 36.6–37.1; O2SAT 89–95; BMI 25.5
[2023-02-13] MEDS: Ampicillin/Sulbactam 3 GM in 0.9% Normal Saline (100mL MB+) 100 ML IV ×4 (05:16→23:32)
[2023-02-13 06:15] LABS: Absolute Lymphocyte Count 1.61 X10^3/uL (0.83-4.51); Absolute Neutrophil Count 5.1 X10^3/uL (2.0-7.7); Basophil# 0.04 X10^3/uL; Basophil% 0.5 % (0-1); Eosinophil# 0.06 X10^3/uL; Eosinophils% 0.8 % (0-5); Hemoglobin 13.5 g/dL (13.0-16.5); Lymphocyte # 1.61 X10^3/ul (0.83-4.51); Lymphocyte % 21.9 % (19-41); Mean Corp Hgb Conc 32.9 g/dL (32-36); Mean Corpuscular Hgb 33.3 pg (27.0-32.0); Mean Platelet Vol. 9.7 fl (6.2-12.0); Monocyte# 0.55 X10^3/uL; Monocyte% 7.5 % (0-10); NRBC Flagged by Analyzer 0 % (0-5); Neutrophil # 5.07 X10^3/uL (2.7-7.7); Neutrophil % 68.9 % (47-70); Platelet Count 144 K/mm3 (150-450); RBC Distribution Width CV 12.9 % (11.6-14.6); RBC Distribution Width SD 48.1 fl (35.1-43.9); Red Blood Count 4.06 M/mm3 (4.6-6.2); White Blood Count 7.4 K/mm3 (4.4-11.0)
[2023-02-13 07:02] LABS: ALB/GLOB Ratio 0.8 RATIO (0.9-2.4); AST(SGOT) 10 U/L (15-37); Alanine Aminotransfer ALT/SGPT 12 U/L (16-61); Albumin, Serum 2.6 g/dL (3.2-5.0); Alkaline Phosphatase 89 U/L (45-117); Anion Gap 5 (5-15); BUN 20 mg/dL (7-18); BUN/Creat Ratio 21.8 RATIO (10-20); Calcium,Total 8.3 mg/dL (8.5-10.1); Chloride 112 mmol/L (98-107); Creatinine, Serum 0.92 mg/dL (0.70-1.30); EST Glomerular Filtration Rate 83 mL/min (>60); Est Glom Filt Rate - Afr Amer 101 mL/min (>60); Estimated Creatinine Clearance 60.61 ml/min; Globulin 3.2 g/dL (2.2-4.2); Glucose 134 mg/dL (74-106); Protein, Total 5.8 g/dL (6.4-8.2); Sodium Level 143 mmol/L (136-145)
--- NOTE | 2023-02-13 08:11 | PCM.PN.HOSP ---
Reason for Visit Reason for Visit: Diagnoses Cellulitis of left upper limb (02/12/23) Unspecified fracture of shaft of humerus, left arm, initial encounter for closed fracture (02/12/23) Objective Data Objective Data Vital Signs: Vital Signs Temp Pulse Resp BP Pulse Ox O2 Del Method 98.4 F 100 16 97/67 93 Room Air 02/13/23 04:30 02/13/23 04:30 02/13/23 04:30 02/13/23 04:30 02/13/23 04:30 02/13/23 04:30 Oxygen Delivery Method Room Air Weight: 178 lb 2.136 oz Body Mass Index (BMI) 25.5 Intake & Output: Intake and Output for Last 24 Hours 02/11/23 02/12/23 02/13/23 23:59 23:59 23:59 Intake Total 837 / 837 499 / 499 Output Total 200 / 200 Balance 837 / 837 299 / 299 Lab / Micro Data 02/13/23 05:29 02/13/23 05:29 Labs: Laboratory Results - last 24 hr 02/12/23 14:18: WBC 7.7, RBC 4.41 L, Hgb 14.4, Hct 44.4, MCV 100.7 H, MCH 32.7 H, MCHC 32.4, RDW Std Deviation 48.6 H, RDW Coeff of Danilo 13.0, Plt Count 160, MPV 9.2, Immature Gran % (Auto) 0.600, Neut % (Auto) 66.8, Lymph % (Auto) 23.5, Livingston % (Auto) 8.2, Eos % (Auto) 0.5, Baso % (Auto) 0.4, Absolute Neuts (auto) 5.2, Absolute Lymphs (auto) 1.81, Nucleated RBC % 0, Sodium 142, Potassium 3.6, Chloride 110 H, Carbon Dioxide 31.0, Anion Gap 1 L, BUN 28 H, Creatinine 1.06, Estim Creat Clear Calc 52.61, Est GFR (MDRD) Af Amer 85, Est GFR (MDRD) Non-Af 70, BUN/Creatinine Ratio 26.4 H, Glucose 145 H, Calcium 8.9, Magnesium 2.5 02/12/23 17:17: POC Glucose 76 02/12/23 21:30: POC Glucose 170 H 02/13/23 05:29: WBC 7.4, RBC 4.06 L, Hgb 13.5, Hct 41.0, MCV 101.0 H, MCH 33.3 H, MCHC 32.9, RDW Std Deviation 48.1 H, RDW Coeff of Danilo 12.9, Plt Count 144 L, MPV 9.7, Immature Gran % (Auto) 0.400, Neut % (Auto) 68.9, Lymph % (Auto) 21.9, Livingston % (Auto) 7.5, Eos % (Auto) 0.8, Baso % (Auto) 0.5, Absolute Neuts (auto) 5.1, Absolute Lymphs (auto) 1.61, Nucleated RBC % 0, Sodium 143, Potassium 4.0, Chloride 112 H, Carbon Dioxide 26.0, Anion Gap 5, BUN 20 H, Creatinine 0.92, Estim Creat Clear Calc 60.61, Est GFR (MDRD) Af Amer 101, Est GFR (MDRD) Non-Af 83, BUN/Creatinine Ratio 21.8 H, Glucose 134 H, Calcium 8.3 L, Total Bilirubin 0.70, AST 10 L, ALT 12 L, Alkaline Phosphatase 89, Total Protein 5.8 L, Albumin 2.6 L, Globulin 3.2, Albumin/Globulin Ratio 0.8 L Radiography Diagnostic Testing: Radiology Impression Humerus X-Ray 02/12/23 14:20 IMPRESSION: Transverse fracture through the mid humeral diaphysis. This is suspicious for a pathological fracture. Electronically Signed: Jai Menjivar MD at 14:42 EDT , Physical Exam Narrative Seen and examined. Patient history. He had a ground-level trip and fall on 918 55-year-old he had some prior left shoulder decreased mobility as he states he was mainly right-handed person denies pain, prior dislocation or fracture of the left upper extremity or tomorrow or osteomyelitis. Physical exam General: Alert, Oriented x3, Cooperative HEENT: Atraumatic, PERRLA, EOMI, Normocephalic Oral: No Gingival or Mucosal Lesions/ Ulcerations Neck: Supple, No JVD, Negative Carotid Bruits Lungs: Air entry diminished in bilateral lung bases. No crepitation/rhonchi Cardiovascular: Regular rate, Regular Rhythm, Normal S1, Normal S2, No murmurs Abdomen: Bowel Sounds Present, Soft, Non Tender, Non-Distended : No renal angle tenderness. No suprapubic tenderness. Extremities: No edema, Capillary Refill Less than 3 Seconds Skin: No rashes, No breakdown Musculoskeletal: Left upper extremity swath. Tenderness present over left midshaft of humerus. Left shoulder nontender but mobility/ROM could not be checked because of fracture. No Tenderness to Palpation of other joints or Extremities Neurological: Cranial nerves II-XII grossly intact, DTR 2+/4. No acute focal neurological deficit. Psych/Mental Status: Normal Affect, Appropriate. Assessment & Plan Assessment/Plan (1) Closed left humeral fracture: QUALIFIERS: Encounter type: initial encounter Humerus Location: shaft Fracture morphology: transverse Fracture alignment: nondisplaced Qualified Code(s): S42.325A - Nondisplaced transverse fracture of shaft of humerus, left arm, initial encounter for closed fracture (2) Cellulitis of arm, left: PLAN: Plan The patient is an 87 y/o M is admitted with left arm discomfort and swelling as well as redness, difficulty in ROM, with continued worsening in last 48 hours with no fevers or chills was admitted with left humeral transverse fracture #1. Mechanical fall with left humeral transverse fracture, nondisplaced of the midshaft/diaphysis, complicated by concurrent Acute Cellulitis with possibility of pathological fracture: The patient is admitted to [facility] floor. Patient was evaluated by the orthopedic surgeon and we discussed. X-rays reviewed and shows moth-eaten appearance suggestive of pathological fracture history of injury, osteoporosis, tumor or vascular Currently nonweightbearing, sling and swath.Dr. Starks advised Trujillo clamshell type brace to the left upper arm for better stabilization early range of motion. Patient on IV Unasyn. Upper extremity MRIs done but not reported. #2. Initially reported unintentional weight loss: Patient has weight loss of about 6 to 7 pounds last several months. History does not lead to suspicion for focal cancer #3. Diabetes mellitus type II, reportedly diet controlled: glucose upon presentation 145, 01/20/23 POC in office with PCP noted to be 6.2%, mildly increased from the prior 5.7%. Accu-Cheks AC at bedtime with Humalog sliding scale #4. Hypertension: Blood pressure in normal range. #5. BPH: Currently no obstructive or irritative acute lower urinary tract symptoms. #6. DVT prophylaxis: SCDs, hold chemoprophylaxis pending orthopedic surgery evaluation in case of OR needs. #7. CODE status: Patient does note have HCPOA or LW in place. Notes his who is present would be his decision maker if he was unable. Discussed CODE status at length including difference between FULL code, DNR-CCA and DNR-CC status. He notes several mates who decided to have no interventions and he is current unsure. Following discussions about the differences in these status, requested to be placed as full code status at this time but would think further on it and if he changes his mind will notify staff. Discussed with the patient's 's and son regarding diagnosis, conservative management, expected hospital course and possible discharge Laboratory Results 02/12/23 14:18: Magnesium 2.5 02/12/23 17:17: POC Glucose 76 02/12/23 21:30: POC Glucose 170 H 02/13/23 05:29: WBC 7.4, RBC 4.06 L, Hgb 13.5, Hct 41.0, MCV 101.0 H, MCH 33.3 H, MCHC 32.9, RDW Std Deviation 48.1 H, RDW Coeff of Danilo 12.9, Plt Count 144 L, MPV 9.7, Immature Gran % (Auto) 0.400, Neut % (Auto) 68.9, Lymph % (Auto) 21.9, Livingston % (Auto) 7.5, Eos % (Auto) 0.8, Baso % (Auto) 0.5, Absolute Neuts (auto) 5.1, Absolute Lymphs (auto) 1.61, Nucleated RBC % 0, Sodium 143, Potassium 4.0, Chloride 112 H, Carbon Dioxide 26.0, Anion Gap 5, BUN 20 H, Creatinine 0.92, Estim Creat Clear Calc 60.61, Est GFR (MDRD) Af Amer 101, Est GFR (MDRD) Non-Af 83, BUN/Creatinine Ratio 21.8 H, Glucose 134 H, Calcium 8.3 L, Total Bilirubin 0.70, AST 10 L, ALT 12 L, Alkaline Phosphatase 89, Total Protein 5.8 L, Albumin 2.6 L, Globulin 3.2, Albumin/Globulin Ratio 0.8 L 02/13/23 07:12: POC Glucose 149 H Charges/Coding Visit Charges Inpatient E&M: 66498 Subs Hosp L2
--- NOTE | 2023-02-13 08:21 | MRI_ITS ---
STUDY: MRI UPPER EXTREMITY LEFT HUMERUS WITH T WITHOUT CONTRAST REASON FOR EXAM: Male, 87 years old. fx left humerus possible pathological TECHNIQUE: Standardized fat and water weighted pulse sequences were obtained in all 3 orthogonal planes, pre-and post contrast administration. IV 16ML CLARISCAN was administered for the contrast portion of the examination. COMPARISON: X-ray 02/12/2023 FINDINGS: There is diffuse non-specific edema of the upper extremity. There is no demonstrated solid, cystic, or lipomatous mass within the subcutaneous adipose space. There is diffuse muscular edema. Normal visualized neurovascular bundles. 6 cm marrow replacing lesion of the midshaft of the left humerus with cortical destruction anteriorly and possible extension of the mass into the surrounding soft tissues. Findings are worrisome for osteosarcoma or solitary metastasis. Furthermore, there is a nondisplaced fracture at the inferior margin of the mass consistent with a pathologic fracture. MRI/Upper Ext No Joint W/WO Cont IMPRESSION: 6 cm marrow replacing lesion the mid shaft of the humerus with nondisplaced pathologic fracture at the inferior margin and soft tissue extension worrisome for primary osteosarcoma or metastatic disease. Correlation with bone scan would be useful. Electronically Signed: Mahin Meng MD at 16:09 EDT ,
[2023-02-13] MEDS: Multivitamins,Therapeutic Tablet 1 TABLET PO (08:39)
--- NOTE | 2023-02-13 10:30 | NURSING ---
dr mera stopped to see pt and then pt to MRI via w/ch
--- NOTE | 2023-02-13 10:39 | CON.PCM_ITS ---
Assessment & Plan Assessment/Plan (1) Cellulitis of arm, left: (2) Nondisplaced transverse fracture of shaft of humerus, left arm, initial encounter for closed fracture: PLAN: Plan X-ray concerning for pathologic fracture ordered MRI left humerus, if underlying pathologic process would need orthopedic oncology for biopsy if wanted. Patient would benefit from a Trujillo clamshell type brace to the left upper arm which would allow better stabilization and early range of motion that his current splint in addition will allow elbow range of motion immediately to prevent stiffness. Antibiotic treatment for cellulitis left upper extremity. HPI Consult Data Date of Consult: 02/13/23 HPI Narrative Reason for Consultation: Left transverse humerus fracture HPI Narrative: JESS JAMES, is a 87 M who presents after ground-level fall on carpet 02/08/2023 onto his left upper extremity. He did not present to the emergency room until . He does have some cellulitis on his left upper extremity that is being treated. He does not have any known history of cancer however he does have a family history for melanoma and he does have a skin lesion on his right shoulder that was going to be worked up by dermatology. He did have x-rays in the emergency room department that demonstrated transverse left humeral shaft fracture that was in relatively good alignment however did have moth-eaten appearance consistent concerning for pathologic fracture. [facility] Medical History (Updated 02/13/23 @ 10:[address] Theodore Starks DO) Bone fracture BPH (benign prostatic hyperplasia) Change in skin mole Elevated PSA Flu vaccine need Hypertension Type 2 diabetes mellitus Weight loss, non-intentional Home Medications multivitamin (Daily Multi-Vitamin tablet) 1 tab PO DAILY 02/12/23 [History Last Taken 02/12/23] Allergy/AdvReac Type Severity Reaction Status Date / Time shellfish derived Allergy Mild swelling Verified 02/12/23 12:54 in throat Family History Father Melanoma Mother Ovarian cancer Surgical History (Updated 02/12/23 @ 15:[address] Mariana Brown MD) History of dental surgery Social History (Updated 02/12/23 @ 15:[address] Mariana Brown MD) household members: spouse Smoking Status: Never smoker alcohol intake: never substance use type: does not use what type of physical activity do you participate in: none Physical Exam Const alert, oriented x3 and no apparent distress General Appearance: cooperative and comfortable Extremity Extremity Narrative: Compartments soft arm and forearm and hand he is neurovascular intact radial median ulnar AIN PIN axillary , musculoocutaneous nerves. palpable radial pulse. Wrist capillary refill he is in a posterior slab splint and sling. Lab / Micro Data 02/13/23 05:29 02/13/23 05:29 Labs: Laboratory Results - last 24 hr 02/12/23 14:18: WBC 7.7, RBC 4.41 L, Hgb 14.4, Hct 44.4, MCV 100.7 H, MCH 32.7 H , MCHC 32.4, RDW Std Deviation 48.6 H, RDW Coeff of Danilo 13.0, Plt Count 160, MPV 9.2, Immature Gran % (Auto) 0.600, Neut % (Auto) 66.8, Lymph % (Auto) 23.5, Dickens % (Auto) 8.2, Eos % (Auto) 0.5, Baso % (Auto) 0.4, Absolute Neuts (auto) 5.2, Absolute Lymphs (auto) 1.81, Nucleated RBC % 0, Sodium 142, Potassium 3.6, Chloride 110 H, Carbon Dioxide 31.0, Anion Gap 1 L, BUN 28 H, Creatinine 1.06, Estim Creat Clear Calc 52.61, Est GFR (MDRD) Af Amer 85, Est GFR (MDRD) Non-Af 70, BUN/Creatinine Ratio 26.4 H, Glucose 145 H, Calcium 8.9, Magnesium 2.5 02/12/23 17:17: POC Glucose 76 02/12/23 21:30: POC Glucose 170 H 02/13/23 05:29: WBC 7.4, RBC 4.06 L, Hgb 13.5, Hct 41.0, MCV 101.0 H, MCH 33.3 H , MCHC 32.9, RDW Std Deviation 48.1 H, RDW Coeff of Danilo 12.9, Plt Count 144 L, MPV 9.7, Immature Gran % (Auto) 0.400, Neut % (Auto) 68.9, Lymph % (Auto) 21.9, Dickens % (Auto) 7.5, Eos % (Auto) 0.8, Baso % (Auto) 0.5, Absolute Neuts (auto) 5.1, Absolute Lymphs (auto) 1.61, Nucleated RBC % 0, Sodium 143, Potassium 4.0, Chloride 112 H, Carbon Dioxide 26.0, Anion Gap 5, BUN 20 H, Creatinine 0.92, Estim Creat Clear Calc 60.61, Est GFR (MDRD) Af Amer 101, Est GFR (MDRD) Non-Af 83, BUN/Creatinine Ratio 21.8 H, Glucose 134 H, Calcium 8.3 L, Total Bilirubin 0.70, AST 10 L, ALT 12 L, Alkaline Phosphatase 89, Total Protein 5.8 L, Albumin 2.6 L, Globulin 3.2, Albumin/Globulin Ratio 0.8 L Radiology Impression Humerus X-Ray 02/12/23 14:20 IMPRESSION: Transverse fracture through the mid humeral diaphysis. This is suspicious for a pathological fracture. Electronically Signed: Jai Menjivar MD at 14:42 EDT ,
--- NOTE | 2023-02-13 11:55 | CASEMGMT ---
MAVIS PATTON Face to Face with family for initial transition planning/care coordination assessment as patient is currently at MRI. MAVIS PATTON introduced self and role at [facility]. and son willing to participate in assessment and is able to answer all questions appropriately. Care providers, pharmacy, and demographics verified. and son wish for patient to discharge home, denies need for home health at this time. and son state theu have no further needs or concerns at this time. CM to follow for discharge planning needs that may arise. PCP: Saroj Specialists: John Quintanilla Pharmacy: [facility] Insurance: [employer] [facility] Prescription Benefit: yes Living Will/HPOA: none LNOK: , son Living Arrangements: Patient lives with in a single story home with 2 steps and railing to enter the home. Patient was independent at home. Transportation: self, sons DME/HHC: Patient has shower chair, raised toilet, cane, and grab bars. No previous HHC or SNF. Per son patient has appt with [email or web address] on Wednesday for sling/brace. Disposition Plan: Patient to discharge home with family support and follow-up plans in place. Judy BRADSHAW, RN, CM
[2023-02-13 12:10] LABS: Bedside Glucose 149 mg/dL (74-106)
[2023-02-13] MEDS: 0.9% Saline Lock 10 ML Syringe IV (12:53)
[2023-02-13] MEDS: Enoxaparin 40 MG/0.4 ML Syringe SC (17:48)
[2023-02-13] MEDS: Menthol/Lanolin/Calamine/Znox 113 GM Tube 1 APPLIC TOPICAL (22:08)
[2023-02-14] MEDS: Ampicillin/Sulbactam 3 GM in 0.9% Normal Saline (100mL MB+) 100 ML IV (05:33)
[2023-02-14 05:41] VITALS: BP 130/75; PULSE 77; RESP 16; TEMP 36.9; O2SAT 99
[2023-02-14 06:00] VITALS: BMI 25.7
[2023-02-14 07:40] VITALS: BP 140/77; PULSE 79; RESP 16; TEMP 36.5; O2SAT 98
[2023-02-14] MEDS: Acetaminophen 325 MG Tablet 650 MG PO (07:48)
[2023-02-14] MEDS: oxyCODONE 5 MG Tablet 2.5 MG PO (07:49)
[2023-02-14 07:58] VITALS: O2SAT 97
[2023-02-14] MEDS: Multivitamins,Therapeutic Tablet 1 TABLET PO (10:16)
[2023-02-14] MEDS: Enoxaparin 40 MG/0.4 ML Syringe SC (10:16)
--- NOTE | 2023-02-14 10:30 | PN.ORTHO_ITS ---
Subjective Subjective Seen and examined doing okay pain controlled. Family present and son. Objective Data Objective Data Vital Signs: Vital Signs Temp Pulse Resp BP Pulse Ox O2 Del Method O2 Flow Rate 97.7 F L 79 16 140/77 H 97 Room Air 2 02/14/23 07:40 02/14/23 07:40 02/14/23 07:40 02/14/23 07:40 02/14/23 07:58 02/14/23 08:25 02/14/23 05:41 Oxygen Flow Rate (L/min) 2 Oxygen Delivery Method Room Air Weight: 179 lb 7.3 oz Body Mass Index (BMI) 25.7 Intake & Output: Intake and Output for Last 24 Hours 02/12/23 02/13/23 02/14/23 23:59 23:59 23:59 Intake Total 837 / 837 923 / 923 224 / 224 Output Total 200 / 200 Balance 837 / 837 723 / 723 224 / 224 Lab / Micro Data 02/13/23 05:29 02/13/23 05:29 Labs: Laboratory Results - last 24 hr 02/13/23 07:12: POC Glucose 149 H Radiography Diagnostic Testing: Radiology Impression Upper Extremity MRI 02/13/23 08:21 IMPRESSION: 6 cm marrow replacing lesion the mid shaft of the humerus with nondisplaced pathologic fracture at the inferior margin and soft tissue extension worrisome for primary osteosarcoma or metastatic disease. Correlation with bone scan would be useful. Electronically Signed: Mahin Meng MD at 16:09 EDT , Physical Exam Const alert and oriented x3 General Appearance: cooperative Extremity Extremity Narrative: Compartments soft arm and forearm and hand he is neurovascular intact radial median ulnar AIN PIN axillary , musculoocutaneous nerves. palpable radial pulse. Wrist capillary refill he is in a posterior slab splint and sling. 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 No known primary. Patient's splint was changed today to a coaptation splint that extended more proximal than the previous posterior slab. This will provide better stability of the fracture site in addition I provided him with a prescription for a Trujillo clamshell brace to be obtained from [employer]. Instructed to call prior to arriving. Patient will need follow-up with oncology for further work-up and follow-up with orthopedic oncology for definitive diagnosis and treatment of pathologic humerus fracture. All questions were answered the best my ability.
--- NOTE | 2023-02-14 11:03 | DCINST_ITS ---
Discharge Instructions Diet Discharge Diet: No restrictions Activity Discharge Activity: Return to Normal Activity Weight Bearing Status: Weight bearing as tolerated Dressing / Incision Call your doctor if you observe: Fever of 101 or Higher, Coldness, Increased Pain, Numbness or Tingling, Change in Color, Inability to urinate, Inability to have a bowel movement, Shortness of breath, Dizziness, Fainting spells, Swelling in the ankles, Chest pain, Prolonged hiccupping, Increased palpitations (irregular heartbeat) and Calf discomfort Follow Up Care When: IN 2 WEEKS Test Results: Test results from this visit will be discussed in further detail at your follow- up appointment, if applicable. Discharge Plan Admission Admit Date/Time: 02/12/23 15:21 Primary Reason for Your Visit: Pathologic fracture of left humerus. Attending Provider: Ted Lee Primary Care Provider: Maximiliano Kyle Consulting Providers: Theodore Starks; Mariana Brown Instructions Additional Instructions / Restrictions: call [employer] [id number] [[facility] [id number]] and bring prescription to obtain Trujillo clam shell brace to left humerus. than begin elbow ROM and shoulder pendulums as demonstrated by dr Starks 3x/day, in addition to finger and wrist ROM to avoid loss of function and maintain range of motion. No lifting pushing or pulling with left arm. Advised to follow-up orthopedic oncology, Dr. Nicholas Menendez, [facility] Ortho quality are Dr. Lopez, in [facility]. Discharge Orders/Prescriptions Prescriptions: New oxycodone 5 mg Tablet 2.5 - 5 mg PO Q4H PRN PRN (Reason: Pain Score 4-10) 7 Days Qty: 20 0RF acetaminophen 325 mg Tablet 1,000 mg PO Q8H Qty: 0 0RF Rx Instructions: Lfsw-dmi-tksnndy. 1000 mg every 8 hourly for 1 week and then as needed. sennosides-docusate sodium [Stool Softener-Stimulant Laxat] 8.6-50 mg Tablet 2 tab PO BID Qty: 0 0RF Rx Instructions: scheduled while taking pain meds. OTC amoxicillin-pot clavulanate 875-125 mg tablet 1 tab PO BID 5 Days Qty: 10 0RF Continued multivitamin [Daily Multi-Vitamin] Tablet 1 tab PO DAILY Referrals / Follow Up: Maximiliano Kyle MD [Primary Care Provider] - Within 1 Week Carolina Mcgee MD [Med Staff - Active Staff] - Within 2 Weeks (Work-up for possible osteosarcoma unclear primary or secondary.) Disposition Disposition (needs filled in before D/C Order can be placed): Home, Self Care
--- NOTE | 2023-02-14 11:10 | PCM.DC.SUM ---
Providers Date of Admission: 02/12/23 Date of Discharge: 02/14/23 Primary Care Physician: Dr. Maximiliano Kyle MD Consultations 02/12/23 17:21 Consult: Orthopedics Routine Consulting Provider: Theodore Starks Reason for Consult: L humeral fracture with concurrent cellulitis EMERGENT Consult: No MD Notified: Yes Date Notified: 02/12/23 Time Notified: 15:27 Method of Notification: ED Physician Initiated Reason For Visit: FALL L HUMERAL FX,CELLULITIS Diagnosis Discharge Diagnosis (1) Pathologic fracture of humerus: Status: Acute Code(s): M84.429A - Pathological fracture, unspecified humerus, initial encounter for fracture Qualifiers: Encounter type: subsequent encounter Fracture healing: with routine healing Laterality: left Pathology associated with fracture: neoplastic disease Qualified Code(s): M84.522D - Pathological fracture in neoplastic disease, left humerus, subsequent encounter for fracture with routine healing Plan The patient is an 87 y/o M is admitted with left arm discomfort and swelling as well as redness, difficulty in ROM, with continued worsening in last 48 hours with no fevers or chills was admitted with left humeral transverse fracture #1. Mechanical fall with left humeral transverse fracture, nondisplaced of the midshaft/diaphysis, complicated by concurrent Acute Cellulitis with possibility of pathological fracture: [facility] Patient was evaluated by the orthopedic surgeon and we discussed. X-rays reviewed and shows moth-eaten appearance suggestive of pathological fracture history of injury, osteoporosis, tumor or vascular Currently nonweightbearing, sling and swath.Dr. Starks advised [place] clamshell type brace to the left upper arm for better stabilization early range of motion. Patient on IV Unasyn. Upper extremity MRIs done but not reported. 02/14: MRI reported 6 cm marrow replacing lesion in the midshaft of the humerus with nondisplaced pathologic fracture with soft tissue extension, worrisome for primary osteosarcoma or metastatic disease. This was discussed with orthopedics. Dr. Starks rounded on the patient and explained MRI findings with the patient and his family. Advised follow-up with the orthopedic oncologist, Dr. Nicholas Menendez, [facility] Ortho quality are Dr. Lopez, in [facility]. Discharge instructions were given to call [phone] [[facility] [address]] and ROM. #2. Initially reported unintentional weight loss: Patient has weight loss of about 6 to 7 pounds last several months. May be due to cancer admission #3. Diabetes mellitus type II, reportedly diet controlled: glucose upon presentation 145, 01/20/23 POC in office with PCP noted to be 6.2%, mildly increased from the prior 5.7%. Accu-Cheks AC at bedtime with Humalog sliding scale #4. Hypertension: Blood pressure in normal range. #5. BPH: Currently no obstructive or irritative acute lower urinary tract symptoms. #6. DVT prophylaxis: SCDs, hold chemoprophylaxis pending orthopedic surgery evaluation in case of OR needs. #7. CODE status: Patient does note have HCPOA or LW in place. Notes his who is present would be his decision maker if he was unable. Discussed CODE status at length including difference between FULL code, DNR-CCA and DNR-CC status. He notes several mates who decided to have no interventions and he is current unsure. Following discussions about the differences in these status, requested to be placed as full code status at this time but would think further on it and if he changes his mind will notify staff. Discussed with the patient's 's and son regarding diagnosis, conservative management, expected hospital course and possible discharge Clinical Impression(s) from Imaging Studies Humerus X-Ray 02/12/23 14:20 IMPRESSION: Transverse fracture through the mid humeral diaphysis. This is suspicious for a pathological fracture. Upper Extremity MRI 02/13/23 08:21 IMPRESSION: 6 cm marrow replacing lesion the mid shaft of the humerus with nondisplaced pathologic fracture at the inferior margin and soft tissue extension worrisome for primary osteosarcoma or metastatic disease. Correlation with bone scan would be useful. Electronically Signed: Mahin Meng MD at 16:09 EDT , Medications at Discharge Home Medications multivitamin (Daily Multi-Vitamin tablet) 1 tab PO DAILY 02/12/23 acetaminophen 325 mg tablet 1,000 mg (3.0769 x 325 mg) PO Q8H Fever, pain 1-10 #0 tabs 02/14/23 amoxicillin 875 mg-potassium clavulanate 125 mg tablet 1 tab PO BID 5 days #10 tabs 02/14/23 oxycodone 5 mg tablet 2.5 - 5 mg (0.5 - 1 x 5 mg) PO Q4H PRN PRN Pain Score 4-10 7 days #20 tabs 02/14/23 sennosides 8.6 mg-docusate sodium 50 mg tablet (Stool Softener-Stimulant Laxative) 2 tab PO BID #0 tabs 02/14/23 Physical Exam Narrative Seen and examined. Patient history. Right upper extremity splint was changed by orthopedic surgeon Dr. Starks and was padded well. Physical exam General: Alert, Oriented x3, Cooperative HEENT: Atraumatic, PERRLA, EOMI, Normocephalic Oral: No Gingival or Mucosal Lesions/ Ulcerations Neck: Supple, No JVD, Negative Carotid Bruits Lungs: Air entry diminished in bilateral lung bases. No crepitation/rhonchi Cardiovascular: Regular rate, Regular Rhythm, Normal S1, Normal S2, No murmurs Abdomen: Bowel Sounds Present, Soft, Non Tender, Non-Distended : No renal angle tenderness. No suprapubic tenderness. Extremities: No edema, Capillary Refill Less than 3 Seconds Skin: No rashes, No breakdown Musculoskeletal: Left upper extremity swath. Tenderness present over left midshaft of humerus. Left shoulder nontender. No Tenderness to Palpation of other joints or Extremities Neurological: Cranial nerves II-XII grossly intact, DTR 2+/4. No acute focal neurological deficit. Psych/Mental Status: Normal Affect, Appropriate. Weight / BMI Weight Weight: 179 lb 7.3 oz Body Mass Index (BMI) 25.7 ABG / Lab / Microbiology Data 02/13/23 05:29 02/13/23 05:29 Laboratory: Laboratory Results - last 24 hr 02/13/23 07:12: POC Glucose 149 H Radiography Diagnostic Testing: Radiology Impression Upper Extremity MRI 02/13/23 08:21 IMPRESSION: 6 cm marrow replacing lesion the mid shaft of the humerus with nondisplaced pathologic fracture at the inferior margin and soft tissue extension worrisome for primary osteosarcoma or metastatic disease. Correlation with bone scan would be useful. Electronically Signed: Mahin Meng MD at 16:09 EDT , D/C Instructions Discharge Diet: No restrictions Weight Bearing Status: Weight bearing as tolerated Call your doctor if you observe: Fever of 101 or Higher, Coldness, Increased Pain, Numbness or Tingling, Change in Color, Inability to urinate, Inability to have a bowel movement, Shortness of breath, Dizziness, Fainting spells, Swelling in the ankles, Chest pain, Prolonged hiccupping, Increased palpitations (irregular heartbeat) and Calf discomfort When: IN 2 WEEKS Meaningful Use Info Meaningful Use Diagnoses (Choose all that apply): None applicable Discharge Plan Admission Admit Date/Time: 02/12/23 15:21 Primary Reason for Your Visit: Pathologic fracture of left humerus. Attending Provider: Ted Lee Primary Care Provider: Maximiliano Kyle Consulting Providers: Theodore Starks; Mariana Brown Instructions Additional Instructions / Restrictions: call [address] [phone] [[facility] [id number]] and bring prescription to obtain [place] clam shell brace to left humerus. than begin elbow ROM and shoulder pendulums as demonstrated by dr Starks 3x/day, in addition to finger and wrist ROM to avoid loss of function and maintain range of motion. No lifting pushing or pulling with left arm. Advised to follow-up orthopedic oncology, Dr. Nicholas Menendez, [facility] Ortho quality are Dr. Lopez, in [facility]. Discharge Orders/Prescriptions Prescriptions: New oxycodone 5 mg Tablet 2.5 - 5 mg PO Q4H PRN PRN (Reason: Pain Score 4-10) 7 Days Qty: 20 0RF acetaminophen 325 mg Tablet 1,000 mg PO Q8H Qty: 0 0RF Rx Instructions: Wwpd-tmt-eopjuab. 1000 mg every 8 hourly for 1 week and then as needed. sennosides-docusate sodium [Stool Softener-Stimulant Laxat] 8.6-50 mg Tablet 2 tab PO BID Qty: 0 0RF Rx Instructions: scheduled while taking pain meds. OTC amoxicillin-pot clavulanate 875-125 mg tablet 1 tab PO BID 5 Days Qty: 10 0RF Continued multivitamin [Daily Multi-Vitamin] Tablet 1 tab PO DAILY Referrals / Follow Up: Maximiliano Kyle MD [Primary Care Provider] - Within 1 Week Carolina Mcgee MD [Med Staff - Active Staff] - Within 2 Weeks (Work-up for possible osteosarcoma unclear primary or secondary.) Disposition Disposition (needs filled in before D/C Order can be placed): Home, Self Care Charges/Coding Visit Charges Inpatient E&M: 17132 Disch Hosp >30min
--- OUTSIDE RECORDS SUMMARY | 2023-06-24 18:24 | XMS RPT_ITS | CCD ---
Author Name Unknown Address [address] [place] [address] Organization [facility] Care Team Providers Care Outdoor Education Teacher Name Role Phone Nilo COVARRUBIAS, Catarina Primary Care Provider [phone] Maximiliano Kyle MD Primary Care Provider [facility]rely [facility] Unavailable Eileen Molina RN Unavailable Unavailable CASSANDRA, EFEWONGBE B Referring Unavailable CASSANDRA, EFEWONGBE B Primary Care Unavailable LONNIE FISCHER Attending Unavailable CASSANDRA, EFEWONGBE B Primary Care Unavailable LONNIE FISCHER Referring Unavailable LONNIE FISCHER Attending Unavailable CAROLINA MCGEE Referring Unavailable CASSANDRA, EFEWONGBE B Primary Care Unavailable LONNIE FISCHER Attending Unavailable LONNIE FISCHER Attending Unavailable CASSANDRA, EFEWONGBE B Primary Care Unavailable LONNIE FISCHER Referring Unavailable Allergies Allergy Classification Reported Allergen(s) Allergy Type Date of Onset Reaction(s) Facility (1 source) Shellfish Drug Allergy 12-12-2015 [facility] (2 sources) Shellfish-Derive d Products Propensity to adverse reactions to drug 03-08-2023 [facility] Medications Current Medications Medication Drug Class(es) Dates Sig (Normalized) Sig (Original) acetaminophen 325 mg oral tablet (2 sources) take 1 tablet by mouth every four hours Acetaminophen 325 MG tablet Take 1 tablet by mouth every 4 hours. 0 Active enzalutamide 80 mg oral tablet (2 sources) Androgen Receptor Inhibitor Start: 03-02-2023 take 2 tablets by mouth once daily Xtandi 80 MG tablet Take 160 mg by mouth daily. 0 03/02/2023 Active Completed/Discontinued Medications Medication Drug Class(es) Dates Sig [...] Classification Problem Date Documented Da te Episodic/Chronic Cancer of bone and connective tissue (2 sources) Malignant neoplasm of bone and articular cartilage, unspecified; Translations: [Malignant neoplasm of bone and articular cartilage, unspecified] Onset: 02-26-2023 Chronic Cancer of prostate (2 sources) Malignant neoplasm of prostate; Translations: [Malignant neoplasm of prostate] Onset: 02-26-2023 Chronic Diabetes mellitus with complications (1 source) Type 2 diabetes mellitus; Translations: [Type 2 diabetes mellitus with diabetic chronic kidney disease] Chronic Pathological fracture (4 sources) 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; Translations: [Pathological fracture in neoplastic disease, left humerus, initial encounter for fracture] Onset: 04-12-2023 03-12-2023 Episodic Secondary malignancies (2 sources) Secondary malignant neoplasm of genital organs; 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-2023 Chronic Secondary malignancies (2 sources) Secondary malignant neoplasm of bone; Translations: [Secondary malignant neoplasm of bone] Onset: 02-26-2023 Chronic Past or Other Problems Problem Classification Problem Date Documented Da te Episodic/Chronic Fracture of lower limb (1 source) Closed fracture of fibula; Translations: [Unspecified fracture of shaft of unspecified fibula, initial encounter for closed fracture] Onset: 12-24-2015 12-24-2015 Episodic Mood disorders (2 sources) Mood disorders Onset: 03-12-2023 Resolved: 04-12-2023 03-12-2023 Unclassified (2 sources) Onset: 03-12-2023 Resolved: 04-12-2023 03-12-2023 NEGATED: Highlighted row has been ruled out!Unclassified (2 sources) No known active problems 03-12-2023 Results Test Name Value Interpretation Reference Range Facil ity Encounters Encounter Date Encounter Type Care Provider Facility Start: 04-12-2023 ambulatory MAXIMILAINO Gomez lity:[facility] Start: 04-12-2023 End: 04-12-2023 Subsequent hospital visit by physician Lonnie Fischer MD Work Phone: Department of Radiology Procedures Date Procedure Procedure Detail Performing Clinician Start: 04-12-2023 Radex humerus minimu m 2 views Lonnie Fischer MD Work Phone: Start: 03-12-2023 Radex humerus minimu m 2 views Daniel Carlos MD Work Phone: Plan of Treatment Date Care Activity Detail Author Start: 11-23-2023 DIABETES SCREEN DIABETES SCREEN [facility] Start: 05-12-2023 End: 05-12-2023 Patient encounter procedure Department of Radiology Start: 04-12-2023 End: 04-12-2023 Patient encounter procedure Department of Radiology Start: 01-22-2023 COVID-19 VACCINE ( season) COVID-19 VACCINE ( season) [facility] Start: 01-22-2023 Influenza vaccination INFLUENZA VACC INE (#1) [facility] Start: 01-22-2022 Influenza vaccination INFLUENZA (#1) [facility] Start: 05-24-2021 ADVANCE DIRECTIVE DISCUSSION ADVANCE DIRECTIVE DISCUSSION [facility] Start: 02-18-2021 COVID-19 VACCINE (3 - Booster for Moderna series) COVID-19 VACCINE (3 - Booster for Moderna series) [facility] Start: 02-07-2021 PNEUMOCOCCAL: 65+ (2 - PPSV23 or PCV20) PNEUMOCOCCAL: 65+ (2 - PPSV23 or PCV20) [facility] Start: 1982 Screening for malign ant neoplasm of colon COLORECTAL CANCER SCREENING DISCUSSION [facility] Start: 1956 Third diphtheria, tetanus and acellular pertussis (DTaP) vaccination TDAP (ADULT) [facility] Start: 1956 Urine microalbumin profile DTAP,TDAP,TD (1 - Tdap) [facility] Start: 1937 Tetanus vaccination TETANUS [facility] Immunizations Immunization Date Immunization Notes Care Provider Fa cility 04-06-2022 influenza virus vaccine, unspecified formulation Lonnie Fischer MD Work Phone: [facility] 09-18-2020 COVID-19 vaccine, fu ll dose (MODERNA) Glen Montalvo APRN.EXHAUSTER Work Phone: [facility] 08-20-2020 COVID-19 vaccine, fu ll dose (MODERNA) Glen Montalvo APRN.EXHAUSTER Work Phone: [facility] Work Phone: 04-11-2020 zoster vaccine recombinant Glen Montalvo APRN.EXHAUSTER Work Phone: [facility] Work Phone: 02-08-2020 influenza, injectabl e, quadrivalent, preservative free Glen Montalvo APRN.EXHAUSTER Work Phone: [facility] Work Phone: 02-08-2020 pneumococcal conjuga te vaccine, 13 valent Glen Montalvo APRN.EXHAUSTER Work Phone: [facility] Work Phone: 02-08-2020 zoster vaccine recombinant Glen Montalvo APRN.EXHAUSTER Work Phone: [facility] Work Phone: Payers Date Payer Category Payer Medicare MEDICARE AETNA H [place] PPO MEDICARE AETNA PPO [id number] 2021-Present [address] [place] [address] [id number] 2021 Medicare [id number] 2014 Medicare AETNA MEDICARE A ETNA MEDICARE PPO [id number] 2014-Present [phone] [address] [place] [address] O [id number] 1937 Unknown [id number] 1937 Unknown [id number] 1937 Unknown [id number] 1937 Unknown [id number] 1937 Unknown [id number] Social History Date Type Detail Facility [facility]: [facility] Work Phone: History of tobacco use Cigarette Smoker C [facility] Work Phone: Start: 12-24-2015 End: 03-12-2023 Tobacco use and exposure Smokeless tobacco non-user [facility] Work Phone: Start: 11-28-2020 Alcohol intake Current non-dr margin trimmer of alcohol (finding) [facility] Start: 1935 Sex Assigned At Not on file C [facility] Start: 03-12-2023 Tobacco smoking stat [facility] Never smoked tobacco [facility] Start: 03-12-2023 End: 04-12-2023 Alcohol intake Ex-drinker (finding) [facility] Start: 03-12-2023 End: 04-12-2023 History of Social function [facility] Start: 03-12-2023 End: 04-12-2023 Tobacco use panel [facility] Adolescent depressio n screening assessment 2 [facility] XR Humerus - left Views 04-12-2023 Note Date & Type Note Facility 04-12-2023 Note IMPRESSION: 1. Stable alignment and progressive healing of a mildly angulated pathologic fracture at the mid left humeral diaphysis. Underlying aggressive lytic lesion with cortical invasion. OLOGY Note 12-10-2021 Telephone Encounter - Sania Gregory [...] review. Kimi Reyes documented in this encounter [facility] Progress note 11-28-2020 Note Date & Type Note Facility 11-28-2020 Note HNO ID: [id number] Author: Sophia Pineda LPN Service: ? Author [...] after review by PCP. Sophia Pineda LPN [facility] Progress note 09-20-2020 Note Date & Type Note Facility 09-20-2020 Note HNO ID: [id number] Author: Glen Montalvo APRN.EXHAUSTER Service: ? Author Type: Nurse Practitioner Type: [...] of <100 - BMP (BMP) (FOR REMOTE [facility] USE) - HEMOGLOBIN A1C (FOR REMOTE [facility] USE) 2. Elevated blood pressure reading without diagnosis of hypertension - ICD9: 796.2, ICD10: R03.0 - Encouraged dietary sodium restriction/DASH diet - Recheck in 2-4 weeks, sooner if needed. 3. Situation (more content not included)... [facility] Evaluation note Note Date & Type Note Facility documented in this encounter 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, initial encounter Procedures XR HUMERUS LEFT Lonnie Fischer MD [address] [place] [address] Referral ID Status Reason Start Date Expiration Date V isits Requested Visits Authorized [id number] New Request 03/12/2023 04/05/2024 1 1 Additional Source Comments (unrecognized sect ion and content) No Status Records FoundNo Status Records Found INFORMATION SOURCE (unrecogn ized section and content) DATE CREATED AUTHOR AUTHOR'S ORGANIZ ATION 05/09/2023 [facility] Source Comments (unrecognize d section and content) In the event this informatio n is protected by the Federal Confidentiality of Alcohol and Drug Abuse Patient Records regulations: The Federal rules restrict any use of the information to criminally investigate or prosecute any alcohol or drug abuse patient.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, initial encounter Procedures XR HUMERUS LEFT Lonnie Fischer MD [address] [place] [id number] Referral ID Status Reason Start Date Expiration Date V isits Requested Visits Authorized [id number] New Request 03/12/2023 04/05/2024 1 1 Care Teams (unrecognized sec tion and content) Outdoor Education Teacher Relationship Specialty Start Date End Date Maximiliano Kyle MD [address] [address] PCP - General Internal Medicine 03/01/23 Carolina cMgee [facility] [address] [facility] [place], [place] [phone] Oncologist Medical Oncology 03/01/23 Eileen Molina, RN Registered Nurse 03/01/23 Outdoor Education Teacher Relationship Specialty Start Date End Date Maximiliano Kyle MD [address] [phone] PCP - General Internal Medicine 03/01/23 Carolina Mcgee [facility] [address] [facility] [address] [place], [place] [phone]- Oncologist Medical Oncology 03/01/23 Eileen Molina, RN Registered Nurse 03/01/23 FOR RECORDS PERTAINING TO PATIENTS WHO ARE [...] BE BASED ON THE PRIMARY CLINICAL RECORDS. [employer] [facility]. provides no warranty or guarantee of the accuracy or completeness of information in this document.
== END 2023-02-14 11:40 | disposition home or self-care (01) | DRG 543 ==
LOC: ED 15:02 → MS3 16:05
PROVIDERS: Admitting Provider Family Medicine; Emergency Provider Emergency Medicine; PCP Internal Medicine; Visit Provider Internal Medicine
DX: M84.522A Pathological fracture in neoplastic disease, left humerus, initial encounter for fracture (principal); C40.02 Malignant neoplasm of scapula and long bones of left upper limb; E11.9 Type 2 diabetes mellitus without complications; L03.114 Cellulitis of left upper limb; I10 Essential (primary) hypertension; N40.0 Benign prostatic hyperplasia without lower urinary tract symptoms; W01.198A Fall on same level from slipping, tripping and stumbling with subsequent striking against other object, initial encounter; R63.4 Abnormal weight loss; Z68.25 Body mass index [BMI] 25.0-25.9, adult; R29.6 Repeated falls; Y92.009 Unspecified place in unspecified non-institutional (private) residence as the place of occurrence of the external cause
CPT/HCPCS: 29105; 36415; 73060; 73080; 73090; 73130; 73220; 80048; 80053; 82962; 83735; 85025; 93971; 94668; 96361; 96365; 96366; 96372; 96375; 96376; 97161; 97166; 99221; 99252; 99284; A9575; J7030; J7050; A4216; G0378; G0463; J0295; J2405

== ENCOUNTER → 2023-02-12 | Outpatient (CLI) | payer MEDICARE, SELFPAY ==
--- NOTE | 2023-02-12 11:51 | RAD_ITS ---
STUDY: X-RAY - LEFT HAND REASON FOR EXAM: Male, 87 years old. Injury due to a fall. TECHNIQUE: 3 view(s) of the hand. COMPARISON: None. FINDINGS: Normal radiocarpal articulation. Normal distal radioulnar joint. Old avulsion fracture of the ulnar styloid. Normal visualized carpal bones. Normal carpal articulations Normal carpometacarpal articulation of the thumb. Normal second through fifth carpometacarpal joints. Normal metacarpi. Normal metacarpophalangeal joint of the thumb. Normal interphalangeal joint of the thumb. Normal proximal and distal phalanges of the thumb. Normal metacarpophalangeal joints of the second through fifth fingers. There is articular joint space narrowing of the proximal and distal interphalangeal joints of the second through fifth fingers, but without erosive changes or periarticular soft tissue swelling. Normal phalanges of the second through fifth fingers. Diffuse soft tissue swelling. RAD/Hand Min 3 Views IMPRESSION: Diffuse soft tissue swelling. Old avulsion fracture of the ulnar styloid. 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 Electronically Signed: Jai Menjivar MD at 12:25 EDT ,
--- NOTE | 2023-02-12 11:51 | RAD_ITS ---
STUDY: X-RAY - LEFT ELBOW REASON FOR EXAM: Male, 87 years old. Left arm inj Bindu 3 fall. TECHNIQUE: 3 view(s) of the elbow. COMPARISON: None. FINDINGS: Normal visualized humerus, radius and ulna. Normal radiocapitellar and ulnotrochlear articulations. Diffuse soft tissue swelling. RAD/Elbow min 3 Views IMPRESSION: Diffuse soft tissue swelling. Electronically Signed: Jai Menjivar MD at 12:26 EDT ,
--- NOTE | 2023-02-12 11:55 | RAD_ITS ---
STUDY: X-RAY - LEFT RADIUS AND ULNA REASON FOR EXAM: Male, 87 years old. Swelling due to recent injury. TECHNIQUE: 2 view(s) of the forearm. COMPARISON: None. FINDINGS: There is non-specific soft tissue swelling. Normal visualized radius. Normal visualized ulna. RAD/Forearm 2 Views IMPRESSION: Soft tissue swelling. Electronically Signed: Jai Menjivar MD at 12:23 EDT ,
== END | disposition home or self-care (01) ==
LOC: MTRAD 11:51
PROVIDERS: PCP Internal Medicine; Visit Provider Physician Assistant Surgical
DX: S59.912A Unspecified injury of left forearm, initial encounter (principal)
CPT/HCPCS: 73080; 73090; 73130

== ENCOUNTER → 2023-02-16 | Outpatient (CLI) | payer MEDICARE, SELFPAY ==
--- NOTE | 2023-02-16 14:42 | CT_ITS ---
STUDY: CT ABDOMEN AND PELVIS WITH CONTRAST REASON FOR EXAM: Male, 87 years old. Nonintentional Weight Loss. Elevated PSA RADIATION DOSAGE (If Supplied By Facility): CTDIvol = ( 17.75 ) mGy, DLP = ( 1138.04 ) mGycm TECHNIQUE: Transaxial images were obtained from the dome of the diaphragm to the symphysis pubis without oral contrast. IV 100mL Isovue-300 was administered. Sagittal and coronal images were reconstructed. Individualized dose optimization techniques were used for this CT. COMPARISON: None. FINDINGS: Increased linear markings at the lung bases suggests bibasilar scarring. Coronary artery calcification. There is a 1.3 cm cyst in the medial aspect of the left lobe of the liver. Normal gallbladder and extrahepatic biliary system. Normal spleen. Normal pancreas. Normal bilateral adrenal glands. There is an 8.3 cm x 10.9 cm x 13 cm cyst in the posterior aspect of the right kidney. There is a 6.1 mm calculus in the lower pole calyx of the right kidney. Mild degree of nonspecific right perinephric stranding. Normal left kidney. Normal visualized stomach. Normal small intestine. Normal colon. The appendix is visualized and appears normal. There is scattered atherosclerotic calcification of the abdominal aorta and its major visceral branches, without a demonstrated aneurysm. Normal inferior vena cava. Normal retroperitoneum. Normal urinary bladder. There is heterogeneous enlargement of the prostate. The prostate measures 4.97 x 5.4 cm. Calcifications are seen within the prostate. Biopsy is recommended. Normal abdominal wall. There are degenerative changes of the visualized lumbar spine. Grade 1 anterior listhesis of L4 on L5. Heterogeneous appearance of the inferior endplate of the L5 vertebrae. CT/Abdomen/Pelvis W IV Cont ONLY IMPRESSION: Heterogeneous enlargement of the prostate. Large right renal cyst and nonobstructive calculus in the right kidney. Small cyst in the left lobe of the liver. Heterogeneous appearance of the inferior endplate of the L5 vertebrae. Electronically Signed: Jai Menjivar MD at 15:20 EDT ,
== END | disposition home or self-care (01) ==
LOC: CT 14:20
PROVIDERS: PCP Internal Medicine; Referring Provider Internal Medicine; Visit Provider Internal Medicine
DX: R63.4 Abnormal weight loss (principal); R97.20 Elevated prostate specific antigen [PSA]
CPT/HCPCS: 74177; Q9967; A4216

== ENCOUNTER 2023-03-04 14:04 | Outpatient (RCR) | payer MEDICARE, SELFPAY ==
--- NOTE | 2023-03-05 11:51 | HP.OTEVAL ---
Patient's Visit Information Visit Information Visit Information: JESS JAMES is a 87 year old M, referred to Occupational Therapy by Dr. Carolina Mcgee MD, with a diagnosis of lymphedema. Date of Evaluation: 03/05/23 Occupational Therapist: Dona Payne, TERI/Crow, CHT Subjective Subjective: This 87 year old male was seen for OT eval with dx of lymphedema - pt had a fall on 02/12/23. pt suffered mid shaft humerus fx. Secondary malignant neoplasm of bone, malignant neoplasm of prostate. pt arrives with , left clamshell humerus support on. states he has not had if off yet- left UE swollen- denies tingling- states swelling was so bad his forearm was seeping. they both want to know what they can do to decrease edema Lymphedema (Circumferential Measure) MCP: left 22 right 20 Wrist: left 20 right 16 Lower forearm: left 22 right 17 Largest forearm: left 29 right 24 Elbow: right 30 left 25cm Upper Exremity Comments: pt demo with edema elbow distally- clam shell on humerus for support Goals Goal: Patient will demonstrate a 20% reduction in edema by discharge: Yes Goal: Patient will demonstrate adequate knowledge of self-massage by the end of the second week.: Yes Goal: Patient will demonstrate adequate knowledge of skin care and precautions by the end of the first week.: Yes Goal: Patient will demonstrate adequate knowledge of therapeutic exercises by discharge.: Yes Goal: Patient will select an appropriate compression garment and demonstrate adequate knowledge of correct donning technique, care and wearing schedule by discharge.: Yes Goal: Patient will voice understanding of need to replace compression garment every four to six months by discharge.: Yes Goal: Patient will demonstrate ROM WFL by discharge.: Yes Rehabilitation General Assessment: pt arrives with humerus clam shell on- edema of left UE- pt demo need for OT services for ed. on need of compression- and sizing form compression sleeve and glove- Therapist applied a tubigrip to assist with mtg of edema until pts can get 15-20 mmHg compression garment- (due to skin integrity went with a lightly marketing assistant [employer] compression value but still will assist with edema mtg.) ed. on edema glove as well- pt and pts family was given information to purchase garment and size. family to return next week to ensure fit of compression sleeve and glove. Rehabilitation Potential: Good Anticipated Interventions Anticipated Interventions: Neuro Reeducation, Education re Diagnosis, Education re Life-long lymphedema Management, Education re Self-Bandaging Techniques, Education re Skin Care and Precautions, Education re Self Massage Techniques, Education re Correct Donning Tech,Care&Wearing Sched Comp Garments, Caregiver Training and Home Program Visit Plan Frequency: 1-2x /Week Duration: 3 Weeks TEXT: Thank you for the opportunity to evaluate your patient. For Medicare and Medicare HMO plans, please review the plan of care and approve it. It will need to be FAXED BACK to us at [phone] for Medicare purposes. Please let me know if there are questions or concerns regarding this plan of care. Physician Signature: Date:
== END 2023-03-04 19:00 | disposition home or self-care (01) ==
LOC: OT 14:04
PROVIDERS: PCP Internal Medicine; Visit Provider Internal Medicine Hematology & Oncology
DX: C61 Malignant neoplasm of prostate (principal); C79.51 Secondary malignant neoplasm of bone; I89.0 Lymphedema, not elsewhere classified
CPT/HCPCS: 97166; 97530

== ENCOUNTER → 2023-03-08 | Outpatient (CLI) | payer MEDICARE, SELFPAY ==
--- NOTE | 2023-03-08 09:57 | NM_ITS ---
CLINICAL: 87-year-old male with history of primary prostate carcinoma. WHOLE BODY 99m Tc MDP RADIONUCLIDE BONE SCINTIGRAPHY COMPARISON: None available FINDINGS: Following the intravenous administration of 27.8 mCi of 99m Tc MDP, whole body bone images reveal: 1. Increased radiopharmaceutical concentration is identified in the intertrochanteric aspect of the right proximal femur, the mid-distal left humeral diaphysis, the right frontal and bilateral temporal calvarium, the proximal and distal left clavicle, the sacrum posteriorly, the left posterior ninth and left lateral ninth-10th ribs, the right anterior seventh rib. 2. Enhanced uptake is noted in the posterior compartment of the left ankle, the acromioclavicular compartments of both shoulders, the sternoclavicular compartment of the right shoulder, the seventh thoracic vertebra. 3. The remaining skeletal structures are scintigraphically unremarkable with left renal image and faintly demonstrated right kidney, urinary bladder activity identified. NM/Bone Scan Whole Body IMPRESSION: 1. The multifocal increase in tracer uptake noted in the left mid-distal diaphysis is commensurate with the patient''s known trauma-fracture, likely pathologic. 2. 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 3. Degenerative arthrosis is defined in the left ankle, the bilateral shoulders, the seventh thoracic vertebra. Electronically Signed: Mahin Haley DO at 22:48 EDT ,
== END | disposition home or self-care (01) ==
LOC: NM 09:56
PROVIDERS: PCP Internal Medicine; Referring Provider Internal Medicine Hematology & Oncology; Visit Provider Internal Medicine Hematology & Oncology
DX: C41.9 Malignant neoplasm of bone and articular cartilage, unspecified (principal)
CPT/HCPCS: 78306; A9503

== ENCOUNTER → 2023-03-30 | Outpatient (CLI) | payer MEDICARE, SELFPAY ==
--- NOTE | 2023-03-30 14:30 | RAD_ITS ---
STUDY: X-RAY - RIGHT FEMUR REASON FOR STUDY: Male, 87 years old. Prostatic carcinoma with bone metastases. TECHNIQUE: 2 view(s) of the femur on 4 images. COMPARISON: None. FINDINGS: Osteopenia. No lytic or blastic lesions. Vascular calcification. RAD/Femur Min 2 Views IMPRESSION: Osteopenia with no other abnormality. Electronically Signed: Logan Alexandre MD at 15:57 EST ,
== END | disposition home or self-care (01) ==
PROVIDERS: PCP Internal Medicine; Visit Provider Internal Medicine Hematology & Oncology
DX: C61 Malignant neoplasm of prostate (principal); C79.51 Secondary malignant neoplasm of bone; C41.9 Malignant neoplasm of bone and articular cartilage, unspecified
CPT/HCPCS: 73552

== ENCOUNTER → 2023-05-11 | Outpatient (CLI) | payer MEDICARE, SELFPAY ==
--- NOTE | 2023-05-11 11:52 | RAD_ITS ---
STUDY: X-RAY - LEFT HUMERUS REASON FOR EXAM: Male, 87 years old. PATH FX HEELING TECHNIQUE: 2 view(s) of the humerus. COMPARISON: 02/12/2023 FINDINGS: Healing nondisplaced fracture the midshaft of the humerus with abundant callus formation but a fracture line still evident worrisome for delayed union. There is no demonstrated fracture or osseous destructive process. There is no demonstrated soft tissue abnormality. RAD/Humerus min 2 Views IMPRESSION: Delayed union of fracture of the midshaft humerus. Electronically Signed: Mahin Meng MD at 20:24 EST ,
== END | disposition home or self-care (01) ==
LOC: RAD 11:49
PROVIDERS: PCP Internal Medicine; Referring Provider Radiology Diagnostic Radiology; Visit Provider Radiology Diagnostic Radiology
DX: M84.522A Pathological fracture in neoplastic disease, left humerus, initial encounter for fracture (principal); C79.82 Secondary malignant neoplasm of genital organs
CPT/HCPCS: 73060

== ENCOUNTER → 2023-07-13 | Outpatient (CLI) | payer MEDICARE, SELFPAY ==
--- OUTSIDE RECORDS SUMMARY | 2023-07-13 11:43 | XMS RPT_ITS | CCD ---
Author Name Unknown Address [address] [place] [address] Organization [facility] Care Team Providers Care Parts Person Name Role Phone Nilo COVARRUBIAS, Catarina Primary Care Provider Maximiliano Kyle MD Primary Care Provider [facility] Unavailable Eileen Molina RN Unavailable Unavailable LONNIE FISCHER Attending Unavailable OLEGHE, EFEWONGBE B Referring Unavailable OLEGHE, EFEWONGBE B Primary Care Unavailable ALVINO MONROE Attending Unavailable OLEGHE, EFEWONGBE B Referring Unavailable OLEGHE, EFEWONGBE B Primary Care Unavailable LONNIE FISCHER Attending Unavailable OLEGHE, EFEWONGBE B Primary Care Unavailable CRISTOPHERE, EFEWONGBE B Referring Unavailable LONNIE FISCHER Attending Unavailable LONNIE FISCHER Referring Unavailable OLEGHE, EFEWONGBE B Primary Care Unavailable LONNIE FISCHER Attending Unavailable LONNIE FISCHER Referring Unavailable OLEGHE, EFEWONGBE B Primary Care Unavailable LONNIE FISCHER Attending Unavailable OLEGHE, EFEWONGBE B Primary Care Unavailable CAROLINA MCGEE Referring Unavailable Allergies Allergy Classification Reported Allergen(s) Allergy Type Date of Onset Reaction(s) Facility (1 source) Shellfish Drug Allergy 12-12-2015 [facility] (2 sources) Shellfish-Derive d Products Propensity to adverse reactions to drug 03-08-2023 [facility] Medications Current Medications Medication Drug Class(es) Dates [...] left humerus, initial encounter for fracture] Onset: 05-12-2023 03-12-2023 Episodic Secondary malignancies (2 sources) Secondary [...] Date Encounter Type Care Provider Facility Start: 07-12-2023 ambulatory LONNIE Covarrubias TERRY Lay ty:[facility] Start: 05-12-2023 ambulatory ALVINO MONROE Facil ty:[facility] Start: 04-12-2023 ambulatory LONNIE Lay ty:[facility] Start: 04-12-2023 End: 04-12-2023 Subsequent [...] Author Start: 11-23-2023 DIABETES SCREEN DIABETES SCREEN [facility] Start: 05-12-2023 End: 05-12-2023 Patient encounter procedure Department of Radiology Start: 04-12-2023 End: 04-12-2023 Patient encounter procedure Department of Radiology Start: 01-22-2023 COVID-19 VACCINE ( season) COVID-19 VACCINE ( season) [facility] Start: 01-22-2023 Influenza vaccination INFLUENZA VACC INE (#1) [facility] Start: 01-22-2022 Influenza vaccination INFLUENZA (#1) [facility] Start: 05-24-2021 ADVANCE DIRECTIVE DISCUSSION ADVANCE DIRECTIVE DISCUSSION [facility] Start: 02-18-2021 COVID-19 VACCINE (3 - Booster for Moderna series) COVID-19 VACCINE (3 - Booster for Moderna series) [facility] Start: 02-07-2021 PNEUMOCOCCAL: 65+ (2 - PPSV23 or PCV20) PNEUMOCOCCAL: 65+ (2 - PPSV23 or PCV20) [facility] Start: 1982 Screening for malign ant neoplasm of colon COLORECTAL CANCER SCREENING DISCUSSION [facility] Start: 1956 Third diphtheria, tetanus and acellular pertussis (DTaP) vaccination TDAP (ADULT) [facility] Start: 1956 Urine microalbumin profile DTAP,TDAP,TD (1 - Tdap) [facility] Start: 1937 Tetanus vaccination TETANUS [facility] Immunizations Immunization Date Immunization Notes Care Provider Garrett williamson 04-06-2022 influenza virus vaccine, unspecified formulation Lonnie Fischer MD Work Phone: [facility] 09-18-2020 COVID-19 vaccine, fu ll dose (MODERNA) Glen Montalvo APRN.LABEL OPERATOR Work Phone: [facility] 08-20-2020 COVID-19 vaccine, fu ll dose (MODERNA) Glen Montalvo APRN.[facility] Work Phone: [facility] Work Phone: 04-11-2020 zoster vaccine recombinant Glen Montalvo APRN.[facility] Work Phone: [facility] Work Phone: 02-08-2020 influenza, injectabl e, quadrivalent, preservative free Glen Montalvo APRN.LABEL OPERATOR Work Phone: [facility] Work Phone: 02-08-2020 pneumococcal conjuga te vaccine, 13 valent Glen Montalvo APRN.[facility] Work Phone: [facility] Work Phone: 02-08-2020 zoster vaccine recombinant Glen Montalvo APRN.[facility] Work Phone: [facility] Work Phone: Payers Date Payer Category Payer Medicare MEDICARE AETNA H [place] PPO MEDICARE AETNA PPO [id number] 2021-Present [address] [place] [address] [id number] 2021 Medicare [id number] 2014 Medicare AETNA MEDICARE A ETNA MEDICARE PPO [id number] 2014-Present [phone] [address] [place] [address] [facility] [id number] 1937 Unknown [id number] 1937 Unknown [id number] 1937 Unknown [id number] 1937 Unknown [id number] 1937 Unknown [id number] 1937 Unknown [id number] 1937 Unknown [id number] Social History Date Type Detail Facility Start: 12-24-[facility] Work Phone: History of tobacco use Cigarette Smoker C [facility] Work Phone: Start: 12-24-2015 End: 03-12-2023 Tobacco use and exposure Smokeless tobacco non-user [facility] Work Phone: Start: 11-28-2020 Alcohol intake Current non-dr solution manager of alcohol (finding) [facility] Start: 1935 Sex Assigned At Not on file [facility] Start: 03-12-2023 Tobacco smoking stat [facility] Never smoked tobacco [facility] Start: 03-12-2023 End: 04-12-2023 Alcohol intake Ex-drinker (finding) [facility] Start: 03-12-2023 End: 04-12-2023 History of Social function [facility] Start: 03-12-2023 End: 04-12-2023 Tobacco use panel [facility] Adolescent depressio n screening [facility] 04-12-2023 Note [...] for annual exam Thank you Sania Gregory APRN.LABEL OPERATOR Pharmacy electronically sent a request for the [...] review. Kimi Reyes documented in this encounter [facility] Progress note 11-28-2020 Note Date & Type Note Facility 11-28-2020 Note HNO ID: [id number] Author: Sophia Pineda LPN Service: ? Author [...] after review by PCP. Sophia Pineda LPN [facility] Progress note 09-20-2020 Note Date & Type Note Facility 09-20-2020 Note HNO ID: [id number] Author: Glen Montalvo APRN.LABEL OPERATOR Service: ? Author Type: Nurse Practitioner Type: Progress Notes Filed: 09/23/2020 8:09 AM Note Text: CC: Patient presents with: Follow Up: DM follow up; rx refills HPI Jess Reyes is a 85 year old male [...] of <100 - BMP (BMP) (FOR REMOTE [facility] USE) - HEMOGLOBIN A1C (FOR REMOTE [facility] USE) 2. Elevated blood pressure reading without diagnosis of hypertension - ICD9: 796.2, ICD10: R03.0 - Encouraged dietary sodium restriction/DASH diet - Recheck in 2-4 weeks, sooner if needed. 3. Situation (more content not included)... [facility] Evaluation note Note Date & Type Note Facility documented in this encounter [facility] Evaluation note Note Date & Type Note Facility documented in this encounter [facility] Evaluation note Note Date & Type Note Facility documented in this encounter [facility] Summary Purpose Family History No Family History Records FoundNo Family History Records Found Advance Directives No Advanced Directives Records FoundNo Advanced Directives Records Found Reason for Referral Specialty Diagnoses / Procedures Referred By Ailyn valera Referred To Contact Diagnoses 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, initial encounter Procedures XR HUMERUS LEFT Lonnie Fischer MD [address] [place] [address] Referral ID Status Reason Start Date Expiration Date V isits Requested Visits Authorized [id number] New Request 03/12/2023 04/05/2024 1 1 Care Teams (unrecognized sec tion and content) Parts Person Relationship Specialty Start Date End Date Maximiliano Kyle MD [address] [facility] [address] [place] [address] PCP - General Internal Medicine 03/01/23 Carolina Mcgee [facility] [address] [place] [address] Oncologist Medical Oncology 03/01/23 Eileen Molina, RN Registered Nurse 03/01/23 Parts Person Relationship Specialty Start Date End Date Maximiliano Kyle MD [address] [phone] PCP - General Internal Medicine 03/01/23 Carolina Mcgee [facility] [address] [place], [place] [phone] Oncologist Medical Oncology 03/01/23 Eileen Molina, RN [...] BE BASED ON THE PRIMARY CLINICAL RECORDS. [employer] [facility]. provides no warranty or guarantee of the accuracy or completeness of information in this document.
--- NOTE | 2023-07-13 11:50 | RAD_ITS ---
STUDY: X-RAY - LEFT HUMERUS REASON FOR EXAM: Male, 88 years old. S/P PATHOLOGIC HUMERUS FACTURE TECHNIQUE: 3 view(s) of the humerus. COMPARISON: Comparison is made with prior study dated May 11, 2023. FINDINGS: There is healing of a mid humeral fracture with callus bony formation. There is no demonstrated soft tissue abnormality. RAD/Humerus min 2 Views IMPRESSION: Healing humeral fracture with interval bony callus formation. Electronically Signed: Jai Menjivar MD at 15:42 EST ,
== END | disposition home or self-care (01) ==
PROVIDERS: PCP Internal Medicine
DX: M84.422A Pathological fracture, left humerus, initial encounter for fracture (principal)
CPT/HCPCS: 73060

== ENCOUNTER → 2023-07-16 | Outpatient (CLI) | payer MEDICARE, SELFPAY ==
--- NOTE | 2023-07-16 10:07 | CDU_ITS ---
Reason For Study: LT Carotid Bruit Rt. Velocities/BP Lt. Velocities/BP Prox CCA 81.8/8.1 cm/sec. Prox CCA 72.1/16.0 cm/sec. Mid CCA 76.9/14.2 cm/sec. Mid CCA 73.2/16.0 cm/sec. Dist CCA 55.2/13.9 cm/sec. Dist CCA 56.7/14.9 cm/sec. Prox ICA 54.5/12.5 cm/sec. Mid ICA 55.6/16.0 cm/sec. Mid ICA 39.6/11.8 cm/sec. Prox ICA 49.0/16.0 cm/sec. Dist ICA 54.4/15.7 cm/sec. Dist ICA 66.0/18.9 cm/sec. Rt. ICA/CCA = 0.7. Lt. ICA/CCA = 0.9. Prox ECA 77.1/11.0 cm/sec. Prox ECA 72.1/7.3 cm/sec. Rt. Vert. 39.3/7.2 cm/sec. Lt. Vert. 38.4/10.0 cm/sec. Right Extracranial There is homogeneous, smooth atherosclerotic plaque noted in the right common carotid artery. The right common carotid artery is tortuous. There is heterogeneous, irregular atherosclerotic plaque noted in the right internal carotid artery. There is intimal thickening but no significant atherosclerotic plaque noted in the right external carotid artery. Antegrade flow is noted in the right vertebral artery. Left Extracranial There is heterogeneous, irregular atherosclerotic plaque noted in the left common carotid artery. The left common carotid artery is tortuous. There is heterogeneous, irregular atherosclerotic plaque noted in the left internal carotid artery. There is intimal thickening but no significant atherosclerotic plaque noted in the left external carotid artery. Antegrade flow is noted in the left vertebral artery. Procedure Carotid Duplex 22809. This is a Carotid Duplex examination using B-mode, color flow and specral Doppler. The exam was diagnostic. Exam performed in department. VL/Carotid Duplex Ultrasound Interpretation Summary Mild (<50%) stenosis right extracranial internal carotid. Mild (<50%) stenosis left extracranial internal carotid. Patent and antegrade vertebrals bilaterally. Ordering Physician: Maximiliano Kyel Referring Physician: Maximiliano Kyle Performed By: Sam Irvin RVT
--- OUTSIDE RECORDS SUMMARY | 2023-07-16 10:39 | XMS RPT_ITS | CCD ---
Author Name Unknown Address [address] [place] [address] Organization [facility] Care Team Providers Care Oil Burner Mechanic Name Role Phone Nilo COVARRUBIAS, Catarina Primary Care Provider [phone] Maximiliano Kyle MD Primary Care Provider [phone] [facility] Un[facility] Eileen Molina RN Unavailable Unavailable LONNIE [...] Facility (1 source) Shellfish Drug Allergy 12-12-2015 [facility] (2 sources) Shellfish-Derive d Products Propensity to adverse reactions to drug 03-08-2023 [facility] Medications Current Medications Medication Drug Class(es) Dates [...] Facility Start: 07-12-2023 ambulatory LONNIE Covarrubias TERRY aLy ty:[facility] Start: 05-12-2023 ambulatory ALVINO MONROE Facil ty:[facility] Start: 04-12-2023 ambulatory LONNIE Lay ty:[facility] Start: 04-12-2023 End: 04-12-2023 Subsequent hospital visit [...] Author Start: 11-23-2023 DIABETES SCREEN DIABETES SCREEN [facility] Start: 05-12-2023 End: 05-12-2023 Patient encounter procedure Department of Radiology Start: 04-12-2023 End: 04-12-2023 Patient encounter procedure Department of Radiology Start: 01-22-2023 COVID-19 VACCINE ( season) COVID-19 VACCINE ( season) [facility] Start: 01-22-2023 Influenza vaccination INFLUENZA VACC INE (#1) [facility] Start: 01-22-2022 Influenza vaccination INFLUENZA (#1) [facility] Start: 05-24-2021 ADVANCE DIRECTIVE DISCUSSION ADVANCE DIRECTIVE DISCUSSION [facility] Start: 02-18-2021 COVID-19 VACCINE (3 - Booster for Moderna series) COVID-19 VACCINE (3 - Booster for Moderna series) [facility] Start: 02-07-2021 PNEUMOCOCCAL: 65+ (2 - PPSV23 or PCV20) PNEUMOCOCCAL: 65+ (2 - PPSV23 or PCV20) [facility] Start: 1982 Screening for malign ant neoplasm of colon COLORECTAL CANCER SCREENING DISCUSSION [facility] Start: 1956 Third diphtheria, tetanus and acellular pertussis (DTaP) vaccination TDAP (ADULT) [facility] Start: 1956 Urine microalbumin profile DTAP,TDAP,TD (1 - Tdap) [facility] Start: 1937 Tetanus vaccination TETANUS [facility] Immunizations Immunization Date Immunization Notes Care Provider Garrett [email or web address] 04-06-2022 influenza virus vaccine, unspecified formulation Lonnie Fischer MD Work Phone: [facility] 09-18-2020 COVID-19 vaccine, fu ll dose (MODERNA) Glen Montalvo APRN.[employer] Work Phone: [facility] 08-20-2020 COVID-19 vaccine, fu ll dose (MODERNA) Glen Montalvo APRN.[facility] Work Phone: [facility] Work Phone: 04-11-2020 zoster vaccine recombinant Glen Montalvo APRN.[facility] Work Phone: [facility] Work Phone: 02-08-2020 influenza, injectabl e, quadrivalent, preservative free Glen Montalvo APRN.[employer] Work Phone: [facility] Work Phone: 02-08-2020 pneumococcal conjuga te vaccine, 13 valent Glen Montalvo APRN.[facility] Work Phone: [facility] Work Phone: 02-08-2020 zoster vaccine recombinant Glen Montalvo APRN.[facility] Work Phone: [facility] Work Phone: Payers Date Payer Category Payer Medicare MEDICARE AET[place] MEDICARE AETNA PPO [id number] 2021-Present [address] [place] [address] [id number] 2021 Medicare [id number] 2014 Medicare AETNA MEDICARE A ETNA MEDICARE PPO [id number] 2014-Present [phone] [address] [place] [address] [facility] [id number] 1937 Unknown [id number] 1937 Unknown [id number] 1937 Unknown [id number] 1937 Unknown [id number] 1937 Unknown [id number] 1937 Unknown [id number] 1937 Unknown [id number] Social History Date Type Detail Facility Start: 12-24-2015 Tobacco smoking stat RUSTIS Ex-smoker [facility] Work Phone: History of tobacco use Cigarette Smoker [facility] Work Phone: Start: 12-24-2015 End: 03-12-2023 Tobacco use and exposure Smokeless tobacco non-user [facility] Work Phone: Start: 11-28-2020 Alcohol intake Current non-dr engineering director of alcohol (finding) [facility] Start: 1935 Sex Assigned At Not on file [facility] Start: 03-12-2023 Tobacco smoking stat [facility] Never smoked tobacco [facility] Start: 03-12-2023 End: 04-12-2023 Alcohol intake Ex-drinker (finding) [facility] Start: 03-12-2023 End: 04-12-2023 History of Social function [facility] Start: 03-12-2023 End: 04-12-2023 Tobacco use panel [facility] Adolescent depressio n screening assessment [facility] Humerus - left Views 04-12-2023 Note [...] for annual exam Thank you Sania Gregory APRN.[employer] Pharmacy electronically sent a request for the [...] review. Kimi Reyes documented in this encounter [facility] Progress note 11-28-2020 Note Date & Type Note Facility 11-28-2020 Note HNO ID: [id number] Author: Sophia Pineda LPN Service: ? Author [...] by PCP. Sophia Pineda LPN [facility] Progress note 09-20-2020 Note Date & Type Note Facility 09-20-2020 Note HNO ID: [id number] Author: Glen Montalvo APRN.[employer] Service: ? Author Type: Nurse Practitioner [...] of <100 - BMP (BMP) (FOR REMOTE [facility] USE) - HEMOGLOBIN A1C (FOR REMOTE [facility] USE) 2. Elevated blood pressure reading without diagnosis of hypertension - ICD9: 796.2, ICD10: R03.0 - Encouraged dietary sodium restriction/DASH diet - Recheck in 2-4 weeks, sooner if needed. 3. Situation (more content not included)... [facility] Evaluation note Note Date & Type Note Facility documented in this encounter [facility] Evaluation note Note Date & Type Note Facility documented in this encounter [facility] Evaluation note Note Date & Type Note Facility documented in this encounter [facility] Summary Purpose Family History No Family History Records FoundNo Family History Records Found Advance Directives No Advanced Directives Records FoundNo Advanced Directives Records Found Reason for Referral Specialty Diagnoses / Procedures Referred By Ailyn valera Referred To Contact Diagnoses 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, initial encounter Procedures XR HUMERUS LEFT Lonnie Fischer MD [address] [place] [address] Referral ID Status Reason Start Date Expiration Date V isits Requested Visits Authorized [id number] New Request 03/12/2023 04/05/2024 1 1 Additional Source Comments (unrecognized sect ion and content) No Status Records FoundNo Status Records Found INFORMATION SOURCE (unrecogn ized section and content) DATE CREATED AUTHOR AUTHOR'S ORGANIZ ATION 07/12/2023 [facility] Comments (unrecognize d section and content) In the event this informatio n is protected by the Federal Confidentiality of Alcohol and Drug Abuse Patient Records regulations: The Federal rules restrict any use of the information to criminally investigate or prosecute any alcohol or drug abuse patient.[facility] Reason for Visit (unrecogniz ed section and content) Specialty Diagnoses / Procedures Referred By Contac t Referred To Contact Diagnoses 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, initial encounter Procedures XR HUMERUS LEFT Lonnie Fischer MD [address] [place] [address] Referral ID Status Reason Start Date Expiration Date V isits Requested Visits Authorized [id number] New Request 03/12/2023 04/05/2024 1 1 Care Teams (unrecognized sec tion and content) Oil Burner Mechanic Relationship Specialty Start Date End Date Maximiliano Kyle MD [address] [facility] [address] [place] [address] PCP - General Internal Medicine 03/01/23 Carolina Mcgee [facility] [address] [place] [address] Oncologist Medical Oncology 03/01/23 Eileen Molina, RN Registered Nurse 03/01/23 Oil Burner Mechanic Relationship Specialty Start Date End Date Maximiliano Kyle MD [address] [id number] PCP - General Internal Medicine 03/01/23 Carolina Mcgee [facility] [address] [place], [place] [id number] Oncologist Medical Oncology 03/01/23 Eileen Molina, RN [...] BE BASED ON THE PRIMARY CLINICAL RECORDS. [facility]. provides no warranty or guarantee of the accuracy or completeness of information in this document.
== END | disposition home or self-care (01) ==
LOC: CVS 10:07
PROVIDERS: PCP Internal Medicine; Referring Provider Internal Medicine; Visit Provider Internal Medicine
DX: R09.89 Other specified symptoms and signs involving the circulatory and respiratory systems (principal); I77.9 Disorder of arteries and arterioles, unspecified; I65.22 Occlusion and stenosis of left carotid artery
CPT/HCPCS: 93880

== ENCOUNTER → 2023-10-07 | Outpatient (CLI) | payer MEDICARE, SELFPAY ==
[2023-10-07 17:28] LABS: BNP,B-Type NATRIURETIC PEPTIDE 960.6 pg/mL (0-100)
== END | disposition home or self-care (01) ==
LOC: BIMLAB 14:45
PROVIDERS: PCP Internal Medicine; Visit Provider Internal Medicine
DX: R06.00 Dyspnea, unspecified (principal)
CPT/HCPCS: 36415; 83880

== ENCOUNTER → 2023-11-08 | Outpatient (CLI) | payer MEDICARE, SELFPAY ==
[2023-11-08 16:58] LABS: BNP,B-Type NATRIURETIC PEPTIDE 1036.8 pg/mL (0-100)
[2023-11-08 20:35] LABS: Anion Gap 7 (5-15); BUN 25 mg/dL (7-18); BUN/Creat Ratio 24.5 RATIO (10-20); Calcium,Total 9.2 mg/dL (8.5-10.1); Chloride 110 mmol/L (98-107); Creatinine, Serum 1.02 mg/dL (0.70-1.30); EST Glomerular Filtration Rate 74 mL/min (>60); Est Glom Filt Rate - Afr Amer 89 mL/min (>60); Glucose 115 mg/dL (74-106); Potassium 4.6 mmol/L (3.5-5.1); Sodium Level 144 mmol/L (136-145)
[2023-11-08 23:05] LABS: Hemoglobin A1c 5.8 % (3.8-5.6)
== END | disposition home or self-care (01) ==
LOC: BIMLAB 14:28
PROVIDERS: PCP Internal Medicine; Visit Provider Internal Medicine
DX: R06.02 Shortness of breath (principal); I10 Essential (primary) hypertension; Z86.39 Personal history of other endocrine, nutritional and metabolic disease
CPT/HCPCS: 36415; 80048; 83036; 83880

== ENCOUNTER → 2023-11-09 | Outpatient (CLI) | payer MEDICARE, SELFPAY ==
--- NOTE | 2023-11-09 11:35 | RAD_ITS ---
STUDY: X-RAY CHEST REASON FOR EXAM: Male, 88 years old. Dyspnea. TECHNIQUE: Frontal and lateral views of the chest. COMPARISON: None. FINDINGS: Diffuse mild interstitial prominence, most marked in the bases. Bilateral small pleural effusions/pleural thickening, left greater than right. Cardiomegaly. Normal mediastinum and preston. Normal visualized pulmonary arteries. Aortic tortuosity with calcification. Thoracic osteopenia with diffuse spondylosis and increased kyphosis. Normal visualized ribs, clavicles, and shoulders. No abnormality of the visualized soft tissue structures of the upper abdomen. RAD/Chest PA and Lateral IMPRESSION: Findings compatible with mild interstitial edema/congestive failure with small effusions. Follow-up chest imaging to resolution recommended. Electronically Signed: Logan Alexandre MD at 12:48 EDT ,
== END | disposition home or self-care (01) ==
LOC: MTRAD 11:35
PROVIDERS: PCP Internal Medicine; Referring Provider Internal Medicine; Visit Provider Internal Medicine
DX: R06.00 Dyspnea, unspecified (principal)
CPT/HCPCS: 71046

== ENCOUNTER 2023-11-12 15:35 | Inpatient (IN) | payer MEDICARE, SELFPAY ==
[2023-11-12 15:36] VITALS: BP 122/78; PULSE 101; RESP 18; TEMP 35.7; O2SAT 98
[2023-11-12 15:44] VITALS: O2SAT 98
--- NOTE | 2023-11-12 15:53 | RAD_ITS ---
INDICATION: sob EXAMINATION/TECHNIQUE: X-RAY - XR Chest 2 Views COMPARISON: November 09, 2019 FINDINGS: LINES/DEVICES: None. LUNGS: Interstitial prominence. Basilar atelectasis. Mild bilateral pleural effusions. No pneumothorax. MEDIASTINUM AND CARDIOVASCULAR STRUCTURES: Cardiac silhouette is slightly enlarged. Central airways and mediastinal contour are unremarkable. BONES AND SOFT TISSUES: Unremarkable. RAD/Chest PA and Lateral IMPRESSION: Interstitial prominence. Basilar atelectasis. Mild bilateral pleural effusions. Electronically Signed: Berny Manzano DO at 16:35 EDT ,
--- NOTE | 2023-11-12 15:53 | EKG12_ITS ---
Test Reason : SOB Blood Pressure : / mmHG Vent. Rate : 095 BPM Atrial Rate : 095 BPM P-R Int : 186 ms QRS Dur : 158 ms QT Int : 416 ms P-R-T Axes : 028 008 149 degrees QTc Int : 522 ms Sinus rhythm with frequent Premature ventricular complexes Left bundle branch block Abnormal ECG Confirmed by Daniel Phillips ([id number]), online content editor LETY GAMBOA ([id number]) on 11/16/2023 6:00:57 AM Referred By: Confirmed By:Daniel Phillips
[2023-11-12 16:02] LABS: Absolute Lymphocyte Count 2.15 X10^3/uL (0.83-4.51); Basophil# 0.01 X10^3/uL; Basophil% 0.2 % (0-1); Eosinophil# 0.04 X10^3/uL; Eosinophils% 0.7 % (0-5); Hematocrit 41.9 % (40-54); Hemoglobin 13.8 g/dL (13.0-16.5); Lymphocyte # 2.15 X10^3/ul (0.83-4.51); Lymphocyte % 37.3 % (19-41); Mean Corp Hgb Conc 32.9 g/dL (32-36); Mean Corpuscular Hgb 33.7 pg (27.0-32.0); Mean Corpuscular Volume 102.2 fL (80-94); Monocyte# 0.51 X10^3/uL; Monocyte% 8.9 % (0-10); NRBC Flagged by Analyzer 0 % (0-5); Neutrophil # 3.04 X10^3/uL (2.7-7.7); Neutrophil % 52.7 % (47-70); Platelet Count 192 K/mm3 (150-450); RBC Distribution Width SD 48.8 fl (35.1-43.9); White Blood Count 5.8 K/mm3 (4.4-11.0)
[2023-11-12 16:03] VITALS: BMI 27.6
--- NOTE | 2023-11-12 16:11 | EDS_ITS ---
HPI History of Present Illness Chief Complaint: Shortness of Breath Informant: patient Narrative Narrative: Patient sent over status post an echocardiogram for evaluation. He states he saw his PCP little over a week ago states he has been having signs of orthopnea with sleeping more inclined that makes him feel better but noting leg swelling. He has been more short of breath when he walks long distance. He denies chest tightness or pain with walking. He was put on a diuretic and had a chest x-ray with echocardiogram ordered. Since being on the diuretic he states legs seem to be slightly improving. He has no cardiac history. History of prostate cancer in the past from his description there was bony metastasis in his left arm that had a pathological fracture with nonsurgical repair. He denied any upper respiratory illness prior to symptoms occurring. Presentation pulse ox 98% on room air. Vitals are stable he is nontoxic in no distress. I discussed with cardiology department, they reported he had an EF of 10 to 15% with no previous echocardiograms. This was ran by the on-call delivery nurse Dr. Epstein, per department they also discussed with the PCP Dr. Kyle, both recommended going through the emergency department and requiring further testing. 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 Prostate cancer Abnormal CT of the abdomen Bone cancer Pathologic fracture of humerus Nondisplaced transverse fracture of shaft of humerus, left arm, initial encounter for closed fracture Elevated PSA BPH (benign prostatic hyperplasia) Weight loss, non-intentional Flu vaccine need Hypertension Change in skin mole Type 2 diabetes mellitus Bone fracture Home Medications ?Medication ?Instructions ?Recorded ?Last Taken ?Type JUXTA LITE #2 ea 03/24/23 Unknown Rx enzalutamide 80 mg tablet (Xtandi) 160 mg PO DAILY 03/24/23 11/11/23 History furosemide 20 mg tablet 20 mg PO BID 11/12/23 11/11/23 History Allergy/AdvReac Type Severity Reaction Status Date / Time shellfish derived Allergy Mild swelling Verified 11/12/23 15:36 in throat Family History Father Melanoma Mother Ovarian cancer Surgical History History of dental surgery Social History household members: spouse Smoking Status: Never smoker alcohol intake: never substance use type: does not use what type of physical activity do you participate in: none ROS ROS ED Constitutional Constitutional ED: Denies chills, fever(s) or sweats Eyes Eyes: Denies change in vision ENT ENT ED: Denies dysphagia or sore throat Cardiovascular Cardiovascular: Reports leg edema and orthopnea; Denies chest pain, palpitations or racing heartbeat Respiratory/Chest Respiratory/Chest: Reports dyspnea, dyspnea on exertion and orthopnea; Denies cough Gastrointestinal Gastrointestinal: Denies abdominal pain, diarrhea, nausea or vomiting Genitourinary Genitourinary ED: Denies dysuria, hematuria or urinary frequency Musculoskeletal Musculoskeletal: Denies back pain, extremity pain or neck pain Integumentary Denies rash or wounds Neurologic Neurologic: Denies headache(s), paresthesias or weakness EXAM Physical Exam Const Vital Signs: 11/12/23 15:36 11/12/23 15:44 11/12/23 16:35 Temperature 96.2 F L 97.8 F Temperature Source Temporal Pulse Rate 101 H 88 Respiratory Rate 18 18 Respiratory Pattern Normal Blood Pressure 122/78 H 122/78 H Blood Pressure Mean 92 92 Pulse Ox 98 98 Oxygen Delivery Method Room Air Room Air 11/12/23 16:51 Temperature Temperature Source Pulse Rate 82 Respiratory Rate 18 Respiratory Pattern Blood Pressure 147/85 H Blood Pressure Mean 105 Pulse Ox 96 Oxygen Delivery Method Room Air Positive well nourished and well developed General Appearance ED: well developed and NAD HEENT Reports moist mucous membranes normocephalic and atraumatic Eyes EOMs intact bilaterally and conjunctivae normal General Eye ED: Yes normal appearance of both eyes Neck no lymphadenopathy and supple General: Negative for tenderness Chest Wall Chest: Negative for tenderness Resp normal respiratory effort and normal air movement Effort and Inspection: symmetric chest movement; Negative for respiratory distress Cardio regular rate, regular rhythm and no murmurs Peripheral Pulses: pulses 2+ throughout GI normal to inspection, nondistended, normoactive bowel sounds and non-tender Palpation: Negative for guarding or rebound tenderness present Back/Spine no CVA tenderness and no thoracic nor lumbar tenderness Extremity normal to inspection Extremity Narrative: 1+ bilateral lower extremity edema at the proximal tibia. No calf tenderness. General Extremety ED: Yes edema; Negative for tenderness General Extremity: edema Neuro oriented x3 and no sensory deficits noted Sensorium / Orientation: awake and alert Skin no rashes or lesions noted and no wounds MDM MDM MDM Narrative Medical decision making narrative: Interventions / MDM: Differential diagnosis: Acute congestive heart failure, left bundle branch block Diagnosis considered but do not suspect: N/A My EKG interpretation: Sinus rate of 95, no ST changes, left bundle branch block noted, PVC noted. No old EKG for comparison. Imaging independently reviewed and interpreted by myself: 2 view chest x-ray: Mild pleural effusion bilaterally. External documents reviewed: N/A Test considered but not ordered:N/A ED course: Patient presented with CHF symptoms reported to me echo 10 to 15%. He has a new left bundle branch block. He has no angina symptoms. I will check cardiac labs, chest x-ray, I will speak with on-call delivery nurse for disposition plans. Pulse ox 98% on arrival. Labs BNP 836, glucose 124 initial troponin 50. Chest x-ray bilateral pleural effusion. I did speak with Dr. Epstein, he confirms that he did direct the patient to the emergency department. With a EF of 10 to 15%. Discussed the left bundle branch block with no old for comparison. Discussed no angina symptoms at this time. He recommended diuresis in the hospital starting baby aspirin, cycling troponins and admit to hospitalist with his consult for planned heart catheterization on Wednesday. Patient and family in the room updated on plan of care. Baby aspirin ordered along with 20 mg of IV Lasix. I spoke with Dr. Lee for admission to PCU. Re-evaluation: stable Disposition discussed with patient/family/significant other: Patient and family Case discussed with consulting clinician: Cardiology, hospitalist This note was generated with [employer] dictation software. It may contain incorrect words, spelling, and punctuation that were not noted in checking the note before signing. Lab Data Attestation: I reviewed the patient's lab results. Labs: Laboratory Results - last 24 hr 11/12/23 15:45 WBC 5.8 RBC 4.10 L Hgb 13.8 Hct 41.9 MCV 102.2 H MCH 33.7 H MCHC 32.9 RDW Std Deviation 48.8 H RDW Coeff of Danilo 13.0 Plt Count 192 MPV 10.0 Immature Gran % (Auto) 0.200 Neut % (Auto) 52.7 Lymph % (Auto) 37.3 [place] % (Auto) 8.9 Eos % (Auto) 0.7 Baso % (Auto) 0.2 Absolute Neuts (auto) 3.0 Absolute Lymphs (auto) 2.15 Nucleated RBC % 0 PT 14.9 INR 1.2 APTT 29.7 Sodium 141 Potassium 3.9 Chloride 107 Carbon Dioxide 28.0 Anion Gap 6 BUN 22 H Creatinine 1.02 Estim Creat Clear Calc 53.68 Est GFR (MDRD) Af Amer 89 Est GFR (MDRD) Non-Af 74 BUN/Creatinine Ratio 21.6 H Glucose 124 H Calcium 9.5 Phosphorus 3.2 Magnesium 2.2 Total Bilirubin 0.80 Direct Bilirubin 0.25 AST 20 ALT 13 L Alkaline Phosphatase 64 Troponin I High Sens 50 B-Natriuretic Peptide 836.8 H Total Protein 7.3 Albumin 3.5 Globulin 3.8 Radiography Diagnostic Testing: Clinical Impression(s) from Imaging Studies Chest X-Ray 11/12/23 15:53 IMPRESSION: Interstitial prominence. Basilar atelectasis. Mild bilateral pleural effusions. Electronically Signed: Berny Manzano DO at 16:35 EDT Reading Location ID and State: [facility] / [place] Tel [phone], Service support , Discharge Plan Dx/Rx/DC Orders Clinical Impression: Acute CHF (congestive heart failure), Cardiomyopathy, Complete left bundle branch block Disposition Disposition: Acute Care Hospital [facility] Discharge Date/Time: 11/12/23 18:02
[2023-11-12 16:19] LABS: International Normalized Ratio 1.2; Prothrombin Time (Protime)PT. 14.9 SECONDS (11.7-14.9)
[2023-11-12 16:20] LABS: Anion Gap 6 (5-15); BUN 22 mg/dL (7-18); BUN/Creat Ratio 21.6 RATIO (10-20); Calcium,Total 9.5 mg/dL (8.5-10.1); Chloride 107 mmol/L (98-107); Creatinine, Serum 1.02 mg/dL (0.70-1.30); EST Glomerular Filtration Rate 74 mL/min (>60); Est Glom Filt Rate - Afr Amer 89 mL/min (>60); Estimated Creatinine Clearance 53.68 ml/min; Glucose 124 mg/dL (74-106); Potassium 3.9 mmol/L (3.5-5.1); Sodium Level 141 mmol/L (136-145); Troponin-I HS 50 pg/mL (3.0-78.0)
[2023-11-12 16:21] LABS: Partial Thromboplast Time 29.7 Seconds (24.1-36.2)
[2023-11-12 16:35] VITALS: BP 122/78; PULSE 88; RESP 18; TEMP 36.6; O2SAT 98
[2023-11-12 16:35] LABS: BNP,B-Type NATRIURETIC PEPTIDE 836.8 pg/mL (0-100)
[2023-11-12] MEDS: Aspirin 81 MG TAB.CHEW PO (16:38)
[2023-11-12] MEDS: Furosemide 40 MG/4 ML Vial 20 MG IV (16:38)
[2023-11-12 16:51] VITALS: BP 147/85; PULSE 82; RESP 18; O2SAT 96
--- NOTE | 2023-11-12 17:20 | HP.PCM.HOS_ITS ---
HPI - General General Date of Admission: 11/12/23 Date of Service: 11/12/23 Chief Complaint: Shortness of breath, orthopnea was found to have low EF 10 to 15% on echocardiogram, new finding HPI Narrative JESS JAMES, wei a 88 M was seen by PCP over a week ago for shortness of breath on exertion, orthopnea requiring more pillows and was ordered outpatient echo. On the echo patient was found to have 10 to 15% and geological manager Dr. Epstein discussed with PCP Dr. Kyle and patient was told to go to ED Patient is states he feels dyspnea on exertion like walking 200 feet to get his mail and he feels winded for last 1 month. He also has bilateral leg swelling which he is not aware. Denies acute cough, sputum production, fever, chest pain, tightness or pressure. In ED, patient had an EKG which shows sinus rhythm with frequent PVCs, LBBB at 95 beats per 100. QTc 522 ms. 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 Prostate cancer Abnormal CT of the abdomen Bone cancer Pathologic fracture of humerus Nondisplaced transverse fracture of shaft of humerus, left arm, initial encounter for closed fracture Elevated PSA BPH (benign prostatic hyperplasia) Weight loss, non-intentional Flu vaccine need Hypertension Change in skin mole Type 2 diabetes mellitus Bone fracture Home Medications ?Medication ?Instructions ?Recorded ?Last Taken ?Type JUXTA LITE #2 ea 03/24/23 Unknown Rx enzalutamide 80 mg tablet (Xtandi) 160 mg PO DAILY 03/24/23 11/11/23 History furosemide 20 mg tablet 20 mg PO BID 11/12/23 11/11/23 History Allergy/AdvReac Type Severity Reaction Status Date / Time shellfish derived Allergy Mild swelling Verified 11/12/23 15:36 in throat Family History Father Melanoma Mother Ovarian cancer Surgical History History of dental surgery Social History household members: spouse Smoking Status: Never smoker alcohol intake: never substance use type: does not use what type of physical activity do you participate in: none ROS ROS Narrative Constitutional: Reports chronic and gradually progressive fatigue and weakness. No fever. HEENT: Reports systems reviewed and no addt'l complaints, except as documented Respiratory/Chest: As described in HPI. CVS: As described in HPI. Gastrointestinal: Denies coffee ground emesis, hematemesis or vomiting. No abdominal pain Genitourinary: Denies burning urination or new urinary tract symptoms Musculoskeletal: Denies acute joint pain or limited range of motion. No acute injury Neurologic: Denies seizure-like symptoms. skin: No ulcer. No rash Endocrinology: Reports systems reviewed and no addt'l complaints, except as documented Hematologic/Lymphatic: Reports systems reviewed and no addt'l complaints, except as documented Rest 14 ROS are negative except as mentioned in HPI Vital Signs Vital Signs Vital Signs: 11/12/23 15:36 11/12/23 15:44 11/12/23 16:35 Temperature 96.2 F L 97.8 F Temperature Source Temporal Pulse Rate 101 H 88 Respiratory Rate 18 18 Respiratory Pattern Normal Blood Pressure 122/78 H 122/78 H Blood Pressure Mean 92 92 Pulse Ox 98 98 Oxygen Delivery Method Room Air Room Air 11/12/23 16:51 Temperature Temperature Source Pulse Rate 82 Respiratory Rate 18 Respiratory Pattern Blood Pressure 147/85 H Blood Pressure Mean 105 Pulse Ox 96 Oxygen Delivery Method Room Air Weight Weight: 192 lb 14.472 oz Body Mass Index (BMI) 27.6 Physical Exam Narrative General: Alert, Oriented x3, Cooperative HEENT: Atraumatic, PERRLA, EOMI, Normocephalic Oral: Oral mucosa dry. No Gingival or Mucosal Lesions/ Ulcerations Neck: Supple, No JVD, Negative Carotid Bruits Chest wall/Lungs: Air entry diminished in bilateral lung bases. No crepitation/rhonchi. Dyspnea on exertion. Cardiovascular: Regular rate, Regular Rhythm, Normal S1, Normal S2, soft systolic murmur Abdomen: Bowel Sounds Present, Soft, Non Tender, Non-Distended : No dysuria. No renal angle tenderness. No suprapubic tenderness. Extremities: Bilateral lower extremity below-knee pitting edema edema, Capillary Refill Less than 3 Seconds Skin: No rashes, No breakdown Musculoskeletal: Uses 4-prong cane for ambulation. No Tenderness to Palpation of Joints or Extremities Neurological: Cranial nerves II-XII grossly intact, DTR 2+/4. No acute focal neurological deficit. Psych/Mental Status: Normal Affect, Appropriate. Results Lab / Micro Data 11/12/23 15:45 11/12/23 15:45 Labs: Laboratory Results - last 24 hr 11/12/23 15:45: WBC 5.8, RBC 4.10 L, Hgb 13.8, Hct 41.9, MCV 102.2 H, MCH 33.7 H , MCHC 32.9, RDW Std Deviation 48.8 H, RDW Coeff of Danilo 13.0, Plt Count 192, MPV 10.0, Immature Gran % (Auto) 0.200, Neut % (Auto) 52.7, Lymph % (Auto) 37.3, [place] % (Auto) 8.9, Eos % (Auto) 0.7, Baso % (Auto) 0.2, Absolute Neuts (auto) 3.0, Absolute Lymphs (auto) 2.15, Nucleated RBC % 0, PT 14.9, INR 1.2, APTT 29.7, Sodium 141, Potassium 3.9, Chloride 107, Carbon Dioxide 28.0, Anion Gap 6, BUN 22 H, Creatinine 1.02, Estim Creat Clear Calc 53.68, Est GFR (MDRD) Af Amer 89, Est GFR (MDRD) Non-Af 74, BUN/Creatinine Ratio 21.6 H, Glucose 124 H, Calcium 9.5, Troponin I High Sens 50, B-Natriuretic Peptide 836.8 H Imaging Radiology Impression Chest X-Ray 11/12/23 15:53 IMPRESSION: Interstitial prominence. Basilar atelectasis. Mild bilateral pleural effusions. Electronically Signed: Berny Manzano DO at 16:35 EDT Reading Location ID and State: [facility] / [place] Tel [phone], Service support , Assessment & Plan Assessment/Plan (1) Acute CHF (congestive heart failure): PLAN: Plan This is a 88-year-old gentleman being admitted for slowly progressive heart failure symptoms including dyspnea on exertion, orthopnea leg swelling and echo findings. 1. Acute HFrEF, etiology unclear, new onset: Patient is being admitted in PCU. Started on furosemide 40 mg every 12 hourly. Heart failure core measures including intake and output, fluid restriction less than 1500 mL, daily weight monitoring, kidney and electrolytes monitoring. Palliative Care Physician is consulted. Patient had 2 serial troponins therefore ACS ruled out and patient does not have any recent anginal-like symptoms. Started on low-dose carvedilol and lisinopril. Plan for possible cardiac cath or ischemic evaluation on Wednesday. 2. History of pathological fracture of left humerus on 02/14/2023 most likely due to metastatic prostate cancer: Patient follows Dr. Carolina Mcgee. Last seen 10/25/2023. PSA over 500 diagnostic of metastatic prostate cancer. Patient had a spontaneous developed left humerus pathological fracture and was evaluated by orthopedic oncology at [facility] acute treatment was recommended. Bone scan shows multiple metastatic bone lesions. Started on androgen deprivation therapy on the monitor 93 [place] will respond both clinically and PSA. On TIMOTHY agonist Lupron and antiandrogen 70. On zoledronic acid every every 12 weekly. 3. Diabetes mellitus type 2: Glucose is 124. Diet controlled. A1c ordered for tomorrow AM 4. Hypertension: Blood pressure in normal range. 135/93. #5. BPH: Currently no obstructive or irritative acute lower urinary tract symptoms. #6. DVT prophylaxis: SCDs, hold chemoprophylaxis pending orthopedic surgery evaluation in case of OR needs. #7. Living will/advanced directive/end of life care: Patient does not have living will or advanced directive. His is next of kin but does not have power of disability attorney for health. After discussion of benefits/risks procedures involved with full code, DNR CC arrest and DNR CC, the patient is not sure about the decision but he is kind of scared. For now, patient does want artificial life support including intubation, tube feed, ventilator and/chest compression, central venous catheter, vasopressor and DC shock if needed Total time spent in [id number] encounter in discussion of advanced directive 17 minutes. Laboratory Results 11/12/23 15:45: WBC 5.8, RBC 4.10 L, Hgb 13.8, Hct 41.9, MCV 102.2 H, MCH 33.7 H , MCHC 32.9, RDW Std Deviation 48.8 H, RDW Coeff of Danilo 13.0, Plt Count 192, MPV 10.0, Immature Gran % (Auto) 0.200, Neut % (Auto) 52.7, Lymph % (Auto) 37.3, [place] % (Auto) 8.9, Eos % (Auto) 0.7, Baso % (Auto) 0.2, Absolute Neuts (auto) 3.0, Absolute Lymphs (auto) 2.15, Nucleated RBC % 0, PT 14.9, INR 1.2, APTT 29.7, Sodium 141, Potassium 3.9, Chloride 107, Carbon Dioxide 28.0, Anion Gap 6, BUN 22 H, Creatinine 1.02, Estim Creat Clear Calc 53.68, Est GFR (MDRD) Af Amer 89, Est GFR (MDRD) Non-Af 74, BUN/Creatinine Ratio 21.6 H, Glucose 124 H, Calcium 9.5, Troponin I High Sens 50, B-Natriuretic Peptide 836.8 H Clinical Impression(s) from Imaging Studies Chest X-Ray 11/12/23 15:53 IMPRESSION: Interstitial prominence. Basilar atelectasis. Mild bilateral pleural effusions. Interpretation Summary The estimated ejection fraction is 10-15 %. Moderately dilated left ventricle. The left atrium is mildly enlarged. Moderate (2+) mitral valve insufficiency. Mild (1+) pulmonic valve insufficiency. No previous study for comparison The study was technically difficult. Contrast injection was performed. Charges/Coding Visit Charges Inpatient E&M: 17209 Init Hosp Procedures Hospitalists Procedures: 33114 Advncd Care Plan 30 Min
[2023-11-12 17:56] LABS: AST(SGOT) 20 U/L (15-37); Alanine Aminotransfer ALT/SGPT 13 U/L (16-61); Albumin, Serum 3.5 g/dL (3.2-5.0); Alkaline Phosphatase 64 U/L (45-117); Bilirubin, Direct 0.25 mg/dL (0.00-0.30); Globulin 3.8 g/dL (2.2-4.2); Magnesium 2.2 mg/dL (1.6-2.6); Phosphorus 3.2 mg/dL (2.5-4.9); Protein, Total 7.3 g/dL (6.4-8.2)
[2023-11-12 18:24] VITALS: BP 135/93; PULSE 89; RESP 18; TEMP 36.2; O2SAT 97
[2023-11-12 18:35] VITALS: BMI 24.1
[2023-11-12 19:34] LABS: Troponin-I HS 67 pg/mL (3.0-78.0)
[2023-11-12 20:28] VITALS: BP 111/62; PULSE 78; RESP 18; TEMP 36.1; O2SAT 94
[2023-11-12] MEDS: Enoxaparin 40 MG/0.4 ML Syringe SC (20:34)
[2023-11-12] MEDS: Carvedilol 3.125 MG TABLET PO (20:37)
[2023-11-12] MEDS: 0.9% Saline Lock 10 ML Syringe IV (20:37)
[2023-11-12] MEDS: Furosemide 20 MG/2 ML VIAL IV (20:37)
[2023-11-12 21:42] LABS: Troponin-I HS 73 pg/mL (3.0-78.0)
[2023-11-13 03:00] VITALS: BP 116/66; PULSE 66; RESP 16; TEMP 35.9; O2SAT 95
[2023-11-13 07:12] LABS: Absolute Lymphocyte Count 2.23 X10^3/uL (0.83-4.51); Absolute Neutrophil Count 2.2 X10^3/uL (2.0-7.7); Basophil# 0.03 X10^3/uL; Basophil% 0.6 % (0-1); Eosinophil# 0.08 X10^3/uL; Eosinophils% 1.6 % (0-5); Hematocrit 39.8 % (40-54); Hemoglobin 12.9 g/dL (13.0-16.5); Lymphocyte # 2.23 X10^3/ul (0.83-4.51); Lymphocyte % 44.4 % (19-41); Mean Corp Hgb Conc 32.4 g/dL (32-36); Mean Corpuscular Hgb 33.2 pg (27.0-32.0); Mean Corpuscular Volume 102.3 fL (80-94); Mean Platelet Vol. 10.3 fl (6.2-12.0); Monocyte# 0.49 X10^3/uL; Monocyte% 9.8 % (0-10); NRBC Flagged by Analyzer 0 % (0-5); Neutrophil # 2.16 X10^3/uL (2.7-7.7); Platelet Count 170 K/mm3 (150-450); RBC Distribution Width SD 49.1 fl (35.1-43.9); Red Blood Count 3.89 M/mm3 (4.6-6.2)
[2023-11-13 07:43] LABS: Anion Gap 3 (5-15); BUN 21 mg/dL (7-18); BUN/Creat Ratio 18.6 RATIO (10-20); Calcium,Total 8.9 mg/dL (8.5-10.1); Chloride 109 mmol/L (98-107); Cholesterol 142 mg/dL (200); Creatinine, Serum 1.13 mg/dL (0.70-1.30); EST Glomerular Filtration Rate 65 mL/min (>60); Est Glom Filt Rate - Afr Amer 79 mL/min (>60); Estimated Creatinine Clearance 49.98 ml/min; Glucose 99 mg/dL (74-106); High Density Lipoprotein 52 mg/dL; Potassium 3.9 mmol/L (3.5-5.1); Sodium Level 142 mmol/L (136-145); Thyroid Stim Hormone (TSH) 2.36 uIU/mL (0.358-3.74); Triglycerides 86 mg/dL; Very Low Density Lipoprotein 17 mg/dL (5-40)
[2023-11-13 08:05] VITALS: O2SAT 97
[2023-11-13 08:46] VITALS: BP 117/77; PULSE 75; RESP 16; TEMP 36.4; O2SAT 95
[2023-11-13] MEDS: Furosemide 20 MG/2 ML VIAL IV ×2 (08:50→18:24)
[2023-11-13] MEDS: Carvedilol 3.125 MG TABLET PO ×2 (08:50→20:58)
[2023-11-13] MEDS: Enoxaparin 40 MG/0.4 ML Syringe SC (08:50)
[2023-11-13] MEDS: Lisinopril 2.5 MG Tablet PO (08:50)
--- NOTE | 2023-11-13 10:45 | CASEMGMT ---
MAVIS PATTON Assessment: Face to Face with pt for initial transition planning/care coordination assessment. RN ABDI introduced self and role at [facility], pt voices understanding and consents to assessment. Pt is A&O x4 and answers all questions appropriately at this time. Pt sitting up in bed in no distress on RA. Care providers, pharmacy, and demographics verified/updated. Admitting Dx: CHF exac PCP:Saroj Specialists:BRENDAN, cardio; Arely, onc; Uzair, [place] Preferred Pharmacy: [facility] Insurance: [employer] Prescription Benefit: yes LNOK: Chela Reyes, Living Arrangements: Pt lives with in a single story home with 2 steps to enter. Pt reports he is typically I in ADL's and denies concerns at home. Transportation: Pt drives self and denies concerns with transportation. DME:shower chair, 3 canes HHC/SNF: Pt denies hx of HHC or SNF stays. Pt states he is active with CCN. He does want to continue this upon dc. Pt states no concerns with going home at time of dc. Discussed with pt having skilled HHC to see him in addition to his CCN for disease education and monitoring of CHF. Pt states he was told recently to weigh himself but he thinks it is because healthcare providers feel he might be losing too much weight. Attempted to educate on weighing self due to possible fluid gain. Pt needs much reinforcement of this as well as fluid/diet education. Pt unable to make decision if he would like HHC at this time. Pt needed time to process this information. Pt states no further concerns/needs. CM to follow. Advised pt to ask CM if any further question/concerns/needs arise, voices understanding. Pt Goal: Home with CCN resuming Plan: Home with CCN resuming and possible skilled HHC for SN [place] GAMBLE CM
--- NOTE | 2023-11-13 11:24 | PN.HOSP_ITS ---
Reason for Visit Reason for Visit: Diagnoses Heart failure, unspecified (11/12/23) Subjective Subjective Patient was admitted yesterday afternoon for new onset HFrEF noted on outpatient echo and volume overload. No acute events overnight. Saw patient at bedside this morning. Patient was sitting up comfortably in bed, conversing normally, in no acute distress. He was breathing comfortably on room air at rest. Patient states he feels mildly better today compared to yesterday but had not worked with physical therapy yet. He reports significant urine output on IV Lasix, has external catheter with wall suction set up for urine collection. Denies any other acute concerns morning. Objective Data Objective Data Vital Signs: Vital Signs Temp Pulse Resp BP Pulse Ox O2 Del Method 97.6 F L 75 16 117/77 95 Room Air 11/13/23 08:46 11/13/23 08:46 11/13/23 08:46 11/13/23 08:46 11/13/23 08:46 11/13/23 08:46 Oxygen Delivery Method Room Air Weight: 78.6 kg Body Mass Index (BMI) 24.1 Intake & Output: Intake and Output for Last 24 Hours 11/11/23 11/12/23 11/13/23 23:59 23:59 23:59 Intake Total 50 / 50 Output Total 1150 / 1150 Balance -1100 / -1100 Lab / Micro Data 11/13/23 06:19 11/13/23 06:19 Labs: Laboratory Results - last 24 hr 11/12/23 15:45: WBC 5.8, RBC 4.10 L, Hgb 13.8, Hct 41.9, MCV 102.2 H, MCH 33.7 H , MCHC 32.9, RDW Std Deviation 48.8 H, RDW Coeff of Danilo 13.0, Plt Count 192, MPV 10.0, Immature Gran % (Auto) 0.200, Neut % (Auto) 52.7, Lymph % (Auto) 37.3, [place] % (Auto) 8.9, Eos % (Auto) 0.7, Baso % (Auto) 0.2, Absolute Neuts (auto) 3.0, Absolute Lymphs (auto) 2.15, Nucleated RBC % 0, PT 14.9, INR 1.2, APTT 29.7, Sodium 141, Potassium 3.9, Chloride 107, Carbon Dioxide 28.0, Anion Gap 6, BUN 22 H, Creatinine 1.02, Estim Creat Clear Calc 53.68, Est GFR (MDRD) Af Amer 89, Est GFR (MDRD) Non-Af 74, BUN/Creatinine Ratio 21.6 H, Glucose 124 H, Calcium 9.5, Phosphorus 3.2, Magnesium 2.2, Total Bilirubin 0.80, Direct Bilirubin 0.25, AST 20, ALT 13 L, Alkaline Phosphatase 64, Troponin I High Sens 50, B-Natriuretic Peptide 836.8 H, Total Protein 7.3, Albumin 3.5, Globulin 3.8 11/12/23 19:07: Troponin I High Sens 67 11/12/23 21:16: Troponin I High Sens 73 11/13/23 06:19: WBC 5.0, RBC 3.89 L, Hgb 12.9 L, Hct 39.8 L, MCV 102.3 H, MCH 33.2 H, MCHC 32.4, RDW Std Deviation 49.1 H, RDW Coeff of Danilo 13.0, Plt Count 170, MPV 10.3, Immature Gran % (Auto) 0.600, Neut % (Auto) 43.0 L, Lymph % (Auto) 44.4 H, [place] % (Auto) 9.8, Eos % (Auto) 1.6, Baso % (Auto) 0.6, Absolute Neuts (auto) 2.2, Absolute Lymphs (auto) 2.23, Nucleated RBC % 0, Sodium 142, Potassium 3.9, Chloride 109 H, Carbon Dioxide 30.0, Anion Gap 3 L, BUN 21 H, Creatinine 1.13, Estim Creat Clear Calc 49.98, Est GFR (MDRD) Af Amer 79, Est GFR (MDRD) Non-Af 65, BUN/Creatinine Ratio 18.6, Glucose 99, Calcium 8.9, Triglycerides 86, Cholesterol 142, LDL Cholesterol 73, VLDL Cholesterol 17, HDL Cholesterol 52, TSH 2.36 Radiography Diagnostic Testing: Radiology Impression Chest X-Ray 11/12/23 15:53 IMPRESSION: Interstitial prominence. Basilar atelectasis. Mild bilateral pleural effusions. Electronically Signed: Berny Manzano DO at 16:35 EDT Reading Location ID and State: [facility] / [place] Tel [phone], Service support , Physical Exam Const alert, oriented x3, no apparent distress and average body habitus Constitutional Narrative: Pleasant elderly male, sitting up comfortably in bed, conversing normally, in no acute distress. General Appearance: cooperative and comfortable HEENT normocephalic, head/scalp atraumatic, hearing grossly normal bilaterally, nasal mucous membranes and turbinates normal and moist oral mucous membranes Eyes PERRL, EOMs intact bilaterally and conjunctivae normal Neck full ROM Chest inspection of chest normal Resp normal respiratory effort and no use of accessory muscles Resp Narrative: Mildly decreased breath sounds noted in bilateral lung bases with crackles noted. No wheezing noted. Breathing comfortably on room air at rest. Cardio regular rate, regular rhythm, no murmurs and peripheral pulses 2+ throughout GI normal to inspection, nondistended, normoactive bowel sounds, soft to palpation, non-tender and non-distended Back/Spine normal ROM Extremity full ROM Extremity Narrative: +3-4 lower extremity pitting edema noted up to knees. Skin no rashes or lesions noted Neuro moves all extremities and no focal motor deficits Speech: speech normal Psych mental status grossly normal Assessment & Plan Assessment/Plan (1) Acute CHF (congestive heart failure): (2) Debility: PLAN: Plan Patient is an 88-year-old male who presented [facility] ED on 11/12/2023 with abnormal outpatient echo and worsening shortness of breath on exertion. 1. New onset HFrEF with hypoxia on exertion ? Cardiology consulted. Echo 11/11 showed EF 10 to 15%, moderately dilated LV, severe global LV dysfunction, mildly enlarged LA, no significant valve disease. Chest x-ray showed interstitial edema with mild bilateral pleural effusions. Patient requiring low-flow oxygen at rest on admit, weaned off by hospital day 2 but still requiring supplemental oxygen with exertion. Has had good urine output on IV diuresis. Continue IV Lasix 20 mg twice daily. Follow daily BMP and urine output. Suspect patient will need ischemic evaluation prior to discharge but appreciate cardiology recommendations. Continue cardiac monitoring. 2. History of prostate cancer with metastasis to bone, history of pathologic left humerus fracture ? Previously followed with oncology at [facility], now follows with Dr. Mcgee with Oncology, last office visit on 10/25/2023. Initially diagnosed with prostate cancer in January 2023; sustained fall at that time with pathologic fracture of left humerus and was found to have a diagnostic PSA over 500. Fracture managed conservatively. Has had great treatment response with medication therapy. Continue home Xtandi while inpatient. Continue scheduled infusions of leuprolide and zoledronic acid on discharge. 3. Mild acute on chronic debility ? PT/OT/case management following. Lives at home with , uses cane for ambulation. Mildly weaker than his baseline currently presumed secondary to HFrEF exacerbation. Likely home with home health care on discharge. 4. Type 2 diabetes mellitus ? Diet controlled. Most recent A1c less than 6%. No need for sliding scale insulin with meals while inpatient. 5. Hypertension ? Reported history but not on any home antihypertensives. Blood pressure has been normotensive since admission. DVT prophylaxis: Lovenox CODE STATUS: Full code, verified Expected disposition: Home with home health care, TBD Total clinical time spent by myself addressing the patient's medical issues, reviewing all the data, and collaborating with patient's care team: 35 minutes. Charges/Coding Visit Charges Inpatient E&M: 36976 Subs Hosp L2
--- NOTE | 2023-11-13 15:07 | CON.PCM.CA_ITS ---
<Statement entered by Salvador Epstein MD - 11/13/23 15:15> Pt seen & evaluated w/BARBARA. I personally interviewed & exam the pt. I was involved in all aspects of pt's orders, interpretation of results & treatment Assessment & Plan Assessment/Plan (1) Debility: (2) Complete left bundle branch block: (3) Dyspnea: (4) Bilateral lower extremity edema: (5) Pathologic fracture of humerus: QUALIFIERS: Pathology associated with fracture: neoplastic disease Encounter type: subsequent encounter Laterality: left Fracture healing: with routine healing Qualified Code(s): M84.522D - Pathological fracture in neoplastic disease, left humerus, subsequent encounter for fracture with routine healing (6) Metastasis to bone: (7) Acute CHF (congestive heart failure): PLAN: Plan 88-year-old patient, seen and evaluated in PCU along with the nursing staff and family today Patient was sent from his primary care physician with bilateral lower extremity swelling or shortness of breath Echocardiogram revealed severe LV systolic dysfunction ejection fraction of 10- 15% And admitted for management of CHF. He is feeling better since started on low-dose diuretic with Lasix symptoms of shortness of breath is improving. He admitted to chronic symptoms of shortness of breath and home he been using 2 pillows at night and having still shortness of breath Denied any symptoms of chest pain. This patient has multiple other medical comorbidities With debility, complete left bundle branch block which is chronic Has longstanding history of bilateral lower extremity edema carotid bruit also has prostate cancer with metastasis to bone and pathological fracture of the humerus. On review of the EKG he had underlying left bundle branch block with PVC Review of the echocardiogram showed severe LV systolic dysfunction EF in the range of 10-15%. Cardiac care plan and recommendations; 1. I reviewed his current medication we will continue the current treatment Patient will need guideline directed medical therapy in the form of Entresto, carvedilol, Aldactone, Farxiga. This will be discussed further following a cardiac catheterization to assess for ischemic cardiomyopathy. Patient has been limited in activity he does not have any chest pain however he had severe LV dysfunction and chronic left bundle branch block. He will be scheduled for cardiac catheterization on Wednesday. His renal function is normal, noted BNP level elevated. Salvador Epstein MD,[facility] HPI Consult Data Date of Consult: 11/13/23 HPI Narrative Reason for Consultation: Patient with acute systolic heart failure HPI Narrative: JESS JAMES, is a 88 M who presents [facility] Medical History Bilateral lower extremity edema Dyspnea Carotid arterial disease Carotid artery bruit Arrhythmia Venous insufficiency of both lower extremities Metastasis to bone Prostate cancer Abnormal CT of the abdomen Bone cancer Pathologic fracture of humerus Nondisplaced transverse fracture of shaft of humerus, left arm, initial encounter for closed fracture Elevated PSA BPH (benign prostatic hyperplasia) Weight loss, non-intentional Flu vaccine need Hypertension Change in skin mole Type 2 diabetes mellitus Bone fracture Home Medications ?Medication ?Instructions ?Recorded ?Last Taken ?Type JUXTA LITE #2 ea 03/24/23 Unknown Rx enzalutamide 80 mg tablet (Xtandi) 160 mg PO QHS chemo 03/24/23 11/11/23 History furosemide 20 mg tablet 20 mg PO BID 11/12/23 11/11/23 History Allergy/AdvReac Type Severity Reaction Status Date / Time shellfish derived Allergy Mild swelling Verified 11/12/23 15:36 in throat Family History Father Melanoma Mother Ovarian cancer Surgical History History of dental surgery Social History household members: spouse Smoking Status: Never smoker alcohol intake: never substance use type: does not use what type of physical activity do you participate in: none Physical Exam Cardio Cardio Narrative: Patient seen and evaluated at bedside along with the nursing staff in PCU Family and son were at bedside at time of evaluation potline monitor reviewed Which revealed normal sinus with PVCs Cardiac exam; S1-S2 is regular Systolic murmur heard in the mitral valve area There is no diastolic murmur Chest examination mildly diminished air entry bilateral Examination lower extremity had +2?+3 lower extremity edema. Risk Stratification Risk Stratification Applicable: No Objective Data Vital Signs: Vital Signs Temp Pulse Resp BP Pulse Ox O2 Del Method 97.6 F L 75 16 117/77 95 Room Air 11/13/23 08:46 11/13/23 08:46 11/13/23 08:46 11/13/23 08:46 11/13/23 08:46 11/13/23 08:46 Oxygen Delivery Method Room Air Weight: 173 lb 4.533 oz Body Mass Index (BMI) 24.1 Intake & Output: Intake and Output for Last 24 Hours 11/11/23 11/12/23 11/13/23 23:59 23:59 23:59 Intake Total 50 / 50 Output Total 1150 / 1150 Balance -1100 / -1100 Lab / Micro Data 11/13/23 06:19 11/13/23 06:19 Labs: Laboratory Results - last 24 hr 11/12/23 15:45: WBC 5.8, RBC 4.10 L, Hgb 13.8, Hct 41.9, MCV 102.2 H, MCH 33.7 H , MCHC 32.9, RDW Std Deviation 48.8 H, RDW Coeff of Danilo 13.0, Plt Count 192, MPV 10.0, Immature Gran % (Auto) 0.200, Neut % (Auto) 52.7, Lymph % (Auto) 37.3, Wells % (Auto) 8.9, Eos % (Auto) 0.7, Baso % (Auto) 0.2, Absolute Neuts (auto) 3.0, Absolute Lymphs (auto) 2.15, Nucleated RBC % 0, PT 14.9, INR 1.2, APTT 29.7, Sodium 141, Potassium 3.9, Chloride 107, Carbon Dioxide 28.0, Anion Gap 6, BUN 22 H, Creatinine 1.02, Estim Creat Clear Calc 53.68, Est GFR (MDRD) Af Amer 89, Est GFR (MDRD) Non-Af 74, BUN/Creatinine Ratio 21.6 H, Glucose 124 H, Calcium 9.5, Phosphorus 3.2, Magnesium 2.2, Total Bilirubin 0.80, Direct Bilirubin 0.25, AST 20, ALT 13 L, Alkaline Phosphatase 64, Troponin I High Sens 50, B-Natriuretic Peptide 836.8 H, Total Protein 7.3, Albumin 3.5, Globulin 3.8 11/12/23 19:07: Troponin I High Sens 67 11/12/23 21:16: Troponin I High Sens 73 11/13/23 06:19: WBC 5.0, RBC 3.89 L, Hgb 12.9 L, Hct 39.8 L, MCV 102.3 H, MCH 33.2 H, MCHC 32.4, RDW Std Deviation 49.1 H, RDW Coeff of Danilo 13.0, Plt Count 170, MPV 10.3, Immature Gran % (Auto) 0.600, Neut % (Auto) 43.0 L, Lymph % (Auto) 44.4 H, Wells % (Auto) 9.8, Eos % (Auto) 1.6, Baso % (Auto) 0.6, Absolute Neuts (auto) 2.2, Absolute Lymphs (auto) 2.23, Nucleated RBC % 0, Sodium 142, Potassium 3.9, Chloride 109 H, Carbon Dioxide 30.0, Anion Gap 3 L, BUN 21 H, Creatinine 1.13, Estim Creat Clear Calc 49.98, Est GFR (MDRD) Af Amer 79, Est GFR (MDRD) Non-Af 65, BUN/Creatinine Ratio 18.6, Glucose 99, Calcium 8.9, Triglycerides 86, Cholesterol 142, LDL Cholesterol 73, VLDL Cholesterol 17, HDL Cholesterol 52, TSH 2.36 Cardiology Labs/Tests 11/12/23 15:45: WBC 5.8, RBC 4.10 L, Hgb 13.8, Hct 41.9, MCV 102.2 H, MCH 33.7 H , MCHC 32.9, Plt Count 192, MPV 10.0, Immature Gran % (Auto) 0.200, Neut % (Auto) 52.7, Lymph % (Auto) 37.3, Wells % (Auto) 8.9, Eos % (Auto) 0.7, Baso % (Auto) 0.2, Absolute Neuts (auto) 3.0, Nucleated RBC % 0, PT 14.9, INR 1.2, APTT 29.7, Sodium 141, Potassium 3.9, Chloride 107, Carbon Dioxide 28.0, Anion Gap 6, BUN 22 H, Creatinine 1.02, Est GFR (MDRD) Af Amer 89, Est GFR (MDRD) Non-Af 74, BUN/Creatinine Ratio 21.6 H, Glucose 124 H, Calcium 9.5, Phosphorus 3.2, Magnesium 2.2, Total Bilirubin 0.80, Direct Bilirubin 0.25, B-Natriuretic Peptide 836.8 H 11/13/23 06:19: WBC 5.0, RBC 3.89 L, Hgb 12.9 L, Hct 39.8 L, MCV 102.3 H, MCH 33.2 H, MCHC 32.4, Plt Count 170, MPV 10.3, Immature Gran % (Auto) 0.600, Neut % (Auto) 43.0 L, Lymph % (Auto) 44.4 H, Wells % (Auto) 9.8, Eos % (Auto) 1.6, Baso % (Auto) 0.6, Absolute Neuts (auto) 2.2, Nucleated RBC % 0, Sodium 142, Potassium 3.9, Chloride 109 H, Carbon Dioxide 30.0, Anion Gap 3 L, BUN 21 H, Creatinine 1.13, Est GFR (MDRD) Af Amer 79, Est GFR (MDRD) Non-Af 65, BUN/Creatinine Ratio 18.6, Glucose 99, Calcium 8.9, Triglycerides 86, Cholesterol 142, LDL Cholesterol 73, VLDL Cholesterol 17, HDL Cholesterol 52 Rhythm: EKG: ECHO: Stress Test: Cardiac Cath: PCI: CT Surgery: Holter monitor: EPS: PPM: CXR: Chest CT Scan: Radiography Diagnostic Testing: Radiology Impression Chest X-Ray 11/12/23 15:53 IMPRESSION: Interstitial prominence. Basilar atelectasis. Mild bilateral pleural effusions. Electronically Signed: Berny Manzano DO at 16:35 EDT Reading Location ID and State: [facility] / [place] Tel [phone], Service support ,
[2023-11-13 15:20] VITALS: BP 106/63; PULSE 68; RESP 16; TEMP 36.4; O2SAT 93
[2023-11-13 18:22] VITALS: BP 106/61; PULSE 75; RESP 16; TEMP 36.4; O2SAT 95
[2023-11-13] MEDS: ENZALUTAMIDE 80 MG TABLET 160 MG PO (19:52)
[2023-11-13 20:58] VITALS: BP 108/66; PULSE 69
[2023-11-14] VITALS (7 sets, daily range): BP systolic 97–116; BP diastolic 62–69; PULSE 64–75; RESP 16–18; TEMP 36.2–36.8; O2SAT 93–97; BMI 24.1
[2023-11-14 05:39] LABS: Anion Gap 5 (5-15); BUN 25 mg/dL (7-18); Calcium,Total 8.9 mg/dL (8.5-10.1); Chloride 109 mmol/L (98-107); Creatinine, Serum 1.04 mg/dL (0.70-1.30); EST Glomerular Filtration Rate 72 mL/min (>60); Est Glom Filt Rate - Afr Amer 87 mL/min (>60); Glucose 96 mg/dL (74-106); Potassium 3.8 mmol/L (3.5-5.1); Sodium Level 144 mmol/L (136-145)
[2023-11-14] MEDS: Carvedilol 3.125 MG TABLET PO ×2 (09:26→21:42)
[2023-11-14] MEDS: Enoxaparin 40 MG/0.4 ML Syringe SC (09:26)
[2023-11-14] MEDS: Senna/Docusate Sodium 1 Tablet 2 TABLET PO (09:26)
[2023-11-14] MEDS: SACUBITRIL/VALSARTAN 24/26 MG TABLET 1 EACH PO ×2 (09:30→21:42)
[2023-11-14] MEDS: 0.9% Saline Lock 10 ML Syringe IV ×3 (10:14→17:27)
[2023-11-14] MEDS: Furosemide 20 MG/2 ML VIAL IV ×2 (10:14→17:14)
--- NOTE | 2023-11-14 11:04 | PN.HOSP_ITS ---
Reason for Visit Reason for Visit: Diagnoses Secondary malignant neoplasm of bone (11/12/23) Left bundle-branch block, unspecified (11/12/23) Heart failure, unspecified (11/12/23) Pathological fracture in neoplastic disease, left humerus, subsequent encounter for fracture with routine healing (11/12/23) Dyspnea, unspecified (11/12/23) Other malaise (11/12/23) Localized edema (11/12/23) Subjective Subjective No acute events overnight. Saw patient at bedside this morning. Patient was just finishing using urinal in bed when I saw him. Reports continued heavy urine output after dose of IV Lasix. Mcgrady like he did well working with therapy yesterday and is being encouraged by nursing staff to get up and use the restroom in the room as able. He is breathing comfortably on room air at rest, similar to yesterday. Tolerating the new medications started per cardiology recommendations for his heart failure. No other new concerns morning. Objective Data Objective Data Vital Signs: Vital Signs Temp Pulse Resp BP Pulse Ox O2 Del Method 98.2 F 75 18 102/62 97 Room Air 11/14/23 09:10 11/14/23 09:10 11/14/23 09:10 11/14/23 10:14 11/14/23 09:10 11/14/23 09:19 Oxygen Delivery Method Room Air Weight: 78.5 kg Body Mass Index (BMI) 24.1 Intake & Output: Intake and Output for Last 24 Hours 11/12/23 11/13/23 11/14/23 23:59 23:59 23:59 Intake Total 970 / 1070 175 / 175 Output Total 1999 / 2374 650 / 650 Balance -1030 / -1305 -475 / -475 Lab / Micro Data 11/13/23 06:19 11/14/23 04:33 Labs: Laboratory Results - last 24 hr 11/14/23 04:33: Sodium 144, Potassium 3.8, Chloride 109 H, Carbon Dioxide 30.0, Anion Gap 5, BUN 25 H, Creatinine 1.04, Estim Creat Clear Calc 54.30, Est GFR (MDRD) Af Amer 87, Est GFR (MDRD) Non-Af 72, BUN/Creatinine Ratio 24.0 H, Glucose 96, Calcium 8.9 Physical Exam Const alert, oriented x3, no apparent distress and average body habitus Constitutional Narrative: Pleasant elderly male, sitting up comfortably in bed, conversing normally, in no acute distress. General Appearance: cooperative and comfortable HEENT normocephalic, head/scalp atraumatic, hearing grossly normal bilaterally, nasal mucous membranes and turbinates normal and moist oral mucous membranes Eyes PERRL, EOMs intact bilaterally and conjunctivae normal Neck full ROM Chest inspection of chest normal Resp normal respiratory effort and no use of accessory muscles Resp Narrative: Mildly decreased breath sounds noted in bilateral lung bases with crackles noted. No wheezing noted. Breathing comfortably on room air at rest. Stable. Cardio regular rate, regular rhythm, no murmurs and peripheral pulses 2+ throughout GI normal to inspection, nondistended, normoactive bowel sounds, soft to palpation, non-tender and non-distended Back/Spine normal ROM Extremity full ROM Extremity Narrative: +2-3 lower extremity pitting edema noted up to knees. Improving. Skin no rashes or lesions noted Neuro moves all extremities and no focal motor deficits Speech: speech normal Psych mental status grossly normal Assessment & Plan Assessment/Plan (1) Acute CHF (congestive heart failure): (2) Debility: PLAN: Plan Patient is an 88-year-old male who presented [facility] ED on 11/12/2023 with abnormal outpatient echo and worsening shortness of breath on exertion. 1. New onset HFrEF with hypoxia on exertion ? Cardiology following. Echo 11/11 showed EF 10 to 15%, moderately dilated LV, severe global LV dysfunction, mildly enlarged LA, no significant valve disease. Chest x-ray showed interstitial edema with mild bilateral pleural effusions. Patient requiring low-flow oxygen at rest on admit, weaned off by hospital day 2 but still requiring supplemental oxygen with exertion. Has had good urine output on IV diuresis. Continue IV Lasix 20 mg twice daily. Started on low- dose Entresto, Coreg and spironolactone on 11/13 per cardiology recommendations. Continue to follow daily BMP and urine output. Planning for left heart cath tomorrow for ischemic evaluation, n.p.o. at midnight. Continue cardiac monitoring. 2. History of prostate cancer with metastasis to bone, history of pathologic left humerus fracture ? Previously followed with oncology at [facility], now follows with Dr. Mcgee with Oncology, last office visit on 10/25/2023. Initially diagnosed with prostate cancer in January 2023; sustained fall at that time with pathologic fracture of left humerus and was found to have a diagnostic PSA over 500. Fracture managed conservatively. Has had great treatment response with medication therapy. Continue home Xtandi while inpatient. Continue scheduled infusions of leuprolide and zoledronic acid on discharge. 3. Mild acute on chronic debility ? PT/OT/case management following. Lives at home with , uses cane for ambulation. Mildly weaker than his baseline currently presumed secondary to HFrEF exacerbation. Likely home with home health care on discharge. 4. Type 2 diabetes mellitus ? Diet controlled. Most recent A1c less than 6%. No need for sliding scale insulin with meals while inpatient. 5. Hypertension ? Reported history but not on any home antihypertensives. Blood pressure has been normotensive since admission. DVT prophylaxis: Lovenox CODE STATUS: Full code, verified Expected disposition: Home with home health care, 1 to 2 days Total clinical time spent by myself addressing the patient's medical issues, reviewing all the data, and collaborating with patient's care team: 35 minutes. Charges/Coding Visit Charges Inpatient E&M: 58854 Subs Hosp L2
[2023-11-14] MEDS: Spironolactone 25 MG Tablet 12.5 MG PO (12:09)
--- NOTE | 2023-11-14 17:03 | PCM.PN.CARD ---
Subjective Subjective Patient seen and evaluated today at bedside along with the nursing staff Is feeling better and has been on low-dose diuretic. Does not have any active chest pain Still have bilateral lower extremity edema +2?+3 He was able to walk today, along with physical therapy assistance. Objective Data Vital Signs: Vital Signs Temp Pulse Resp BP Pulse Ox O2 Del Method 97.1 F L 69 16 104/67 94 Room Air 11/14/23 14:53 11/14/23 14:53 11/14/23 14:53 11/14/23 14:53 11/14/23 14:53 11/14/23 14:53 Oxygen Delivery Method Room Air Weight: 173 lb 1.006 oz Body Mass Index (BMI) 24.1 Intake & Output: Intake and Output for Last 24 Hours 11/12/23 11/13/23 11/14/23 23:59 23:59 23:59 Intake Total 970 / 1070 250 / 250 Output Total 2000 / 2375 950 / 950 Balance -1030 / -1305 -700 / -700 Lab / Micro Data 11/13/23 06:19 11/14/23 04:33 Labs: Laboratory Results - last 24 hr 11/14/23 04:33: Sodium 144, Potassium 3.8, Chloride 109 H, Carbon Dioxide 30.0, Anion Gap 5, BUN 25 H, Creatinine 1.04, Estim Creat Clear Calc 54.30, Est GFR (MDRD) Af Amer 87, Est GFR (MDRD) Non-Af 72, BUN/Creatinine Ratio 24.0 H, Glucose 96, Calcium 8.9 Cardiology Labs/Tests 11/14/23 04:33: Sodium 144, Potassium 3.8, Chloride 109 H, Carbon Dioxide 30.0, Anion Gap 5, BUN 25 H, Creatinine 1.04, Est GFR (MDRD) Af Amer 87, Est GFR (MDRD) Non-Af 72, BUN/Creatinine Ratio 24.0 H, Glucose 96, Calcium 8.9 Rhythm: EKG: ECHO: Stress Test: Cardiac Cath: PCI: CT Surgery: Holter monitor: EPS: PPM: CXR: Chest CT Scan: Physical Exam Cardio Cardio Narrative: Review of the cardiac telemetry revealed normal sinus with PVC no evidence of nonsustained ventricular tachycardia. Cardiac exam regular venous pressure mildly elevated S1-S2 is regular Chest exam mildly diminished air entry bilateral Examination lower extremity had +2?+3 lower extremity edema. Assessment & Plan Assessment/Plan (1) Debility: (2) Complete left bundle branch block: (3) Cardiomyopathy: (4) Dyspnea: (5) Prostate cancer: (6) History of diabetes mellitus: PLAN: Plan Cardiac care plan 88-year-old patient presented with acute systolic heart failure Has history of bilateral extremity edema and symptoms of shortness of breath Patient has multiple medical comorbidities Patient has history of prostate cancer with metastasis to bone.I Type 2 diabetes mellitus He has a chronic debility Hypertension From cardiac standpoint he has been evaluated by transthoracic echocardiogram Showed severe LV systolic dysfunction Ejection fraction in the range of 10 to 15%. He has moderate mitral regurgitation Trivial tricuspid and aortic regurgitation no pericardial effusion Patient currently on guideline directed medical therapy for CHF/acute systolic heart failure I scheduled the patient for cardiac catheterization/by Dr. Bettencourt and further plan will be based on results of cardiac cath. Cardiac care plan discussed in detail with the patient as well as nursing staff. Salvador Epstein MD,[facility]ACC,[facility]
[2023-11-14] MEDS: ENZALUTAMIDE 80 MG TABLET 160 MG PO (19:00)
[2023-11-14 19:21] LABS: Magnesium 2.2 mg/dL (1.6-2.6)
[2023-11-15] VITALS (11 sets, daily range): BP systolic 88–117; BP diastolic 53–73; PULSE 63–91; RESP 16–18; TEMP 36.3–36.6; O2SAT 92–99; BMI 24.0
--- NOTE | 2023-11-15 05:00 | EKG12_ITS ---
Test Reason : AM EKG Blood Pressure : / mmHG Vent. Rate : 064 BPM Atrial Rate : 064 BPM P-R Int : 190 ms QRS Dur : 164 ms QT Int : 498 ms P-R-T Axes : 021 000 154 degrees QTc Int : 513 ms Normal sinus rhythm Left bundle branch block Abnormal ECG When compared with ECG of 12-NOV-2023 16:00, MANUAL COMPARISON REQUIRED, DATA IS UNCONFIRMED Confirmed by Daniel Phillips ([id number]), newspaper or periodical editor SANJAY LOPEZ ([id number]) on 11/16/2023 8:20:10 AM Referred By: KATIE Confirmed By:Daniel Phillips
[2023-11-15] MEDS: SACUBITRIL/VALSARTAN 24/26 MG TABLET 1 EACH PO (05:55)
[2023-11-15] MEDS: Carvedilol 3.125 MG TABLET PO (05:55)
[2023-11-15 06:34] LABS: Anion Gap 6 (5-15); BUN 26 mg/dL (7-18); Calcium,Total 8.6 mg/dL (8.5-10.1); Chloride 107 mmol/L (98-107); EST Glomerular Filtration Rate 75 mL/min (>60); Est Glom Filt Rate - Afr Amer 91 mL/min (>60); Estimated Creatinine Clearance 56.48 ml/min; Glucose 113 mg/dL (74-106); Potassium 3.4 mmol/L (3.5-5.1); Sodium Level 142 mmol/L (136-145)
[2023-11-15] MEDS: Potassium Chloride Oral Tablet 20 MEQ 60 MEQ PO (06:50)
--- NOTE | 2023-11-15 08:32 | PN.CARD_ITS ---
Subjective Subjective Patient seen and evaluated. Underwent cardiac catheterization today. Objective Data Vital Signs: Vital Signs Temp Pulse Resp BP Pulse Ox O2 Del Method 97.4 F L 69 16 117/71 99 Room Air 11/15/23 05:53 11/15/23 05:53 11/15/23 05:53 11/15/23 05:53 11/15/23 05:53 11/15/23 05:53 Oxygen Delivery Method Room Air Weight: 172 lb 2.896 oz Body Mass Index (BMI) 24.0 Intake & Output: Intake and Output for Last 24 Hours 11/13/23 11/14/23 11/15/23 23:59 23:59 23:59 Intake Total 970 / 1070 370 / 370 Output Total 1999 / 2374 150 / 150 Balance -1030 / -1305 -1605 / -1605 -150 / -150 Lab / Micro Data 11/13/23 06:19 11/15/23 04:16 Labs: Laboratory Results - last 24 hr 11/14/23 18:47: Magnesium 2.2 11/15/23 04:16: Sodium 142, Potassium 3.4 L, Chloride 107, Carbon Dioxide 29.0, Anion Gap 6, BUN 26 H, Creatinine 1.00, Estim Creat Clear Calc 56.48, Est GFR (MDRD) Af Amer 91, Est GFR (MDRD) Non-Af 75, BUN/Creatinine Ratio 26.0 H, G lucose 113 H, Calcium 8.6 Cardiology Labs/Tests 11/14/23 18:47: Magnesium 2.2 11/15/23 04:16: Sodium 142, Potassium 3.4 L, Chloride 107, Carbon Dioxide 29.0, Anion Gap 6, BUN 26 H, Creatinine 1.00, Est GFR (MDRD) Af Amer 91, Est GFR (MDRD) Non-Af 75, BUN/Creatinine Ratio 26.0 H, Glucose 113 H, Calcium 8.6 Rhythm: EKG: ECHO: Stress Test: Cardiac Cath: PCI: CT Surgery: Holter monitor: EPS: PPM: CXR: Chest CT Scan: Physical Exam Const alert, oriented x3 and no apparent distress General Appearance: cooperative HEENT hearing grossly normal bilaterally Head and Scalp: atraumatic Eyes EOMs intact bilaterally Neck General: normal visual inspection Chest inspection of chest normal and palpation of chest normal Resp normal respiratory effort Auscultation: clear to auscultation bilaterally Cardio regular rate, regular rhythm, S1 normal heart sound and S2 normal heart sound Jugular Venous Distention: JVD GI normal to inspection, nondistended, normoactive bowel sounds Extremity normal capillary refill and no pedal edema Peripheral Pulses: Yes pulses 2+ throughout and femoral pulses present Skin no rashes or lesions noted Neuro oriented x3 and CN's II-XII intact bilaterally Psych Appearance: grossly normal and appropriate Assessment & Plan Assessment/Plan (1) Cardiomyopathy: PLAN: He presents with a cardiomyopathy with an estimated ejection fraction of 10 to 15%. His cardiac catheterization today demonstrated the following: Normal left main coronary artery. Left anterior descending artery with no significant stenosis. Nondominant but large left circumflex artery with no significant stenosis. Dominant right coronary artery with 60% mid segment stenosis. Reduced ejection fraction estimated at 10 to 15%. Based on the above angiographic findings would recommend aggressive guideline directed medical therapy as follows: Carvedilol 6.25 mg twice a day and titrate as appropriate Continue sacubitril Lasix 40 mg a day Continue spironolactone Add empagliflozin 10 mg a day Hopeful discharge later today for outpatient follow-up with the heart group.
--- NOTE | 2023-11-15 09:03 | CASEMGMT ---
Insurance review for hospitals In-network with?[employer] insurance if transfer is recommended is as follows: [facility], [facility], [facility], [facility], [facility], [facility]), [facility], [facility], and . Jing Reynolds, Discharge Planning Asst.
[2023-11-15] MEDS: Empagliflozin 10 MG Tablet PO (10:25)
[2023-11-15] MEDS: Furosemide 40 MG Tablet PO (10:25)
--- NOTE | 2023-11-15 11:32 | DCINST_ITS ---
Discharge Instructions Diet Discharge Diet: 4000 mg Sodium Diet Activity Discharge Activity: No Restrictions Follow Up Care Test Results: Test results from this visit will be discussed in further detail at your follow- up appointment, if applicable. Discharge Plan Admission Admit Date/Time: 11/12/23 17:21 Primary Reason for Your Visit: Worsening shortness of breath with exertion Attending Provider: Amado Jean Primary Care Provider: Maximiliano Kyle Consulting Providers: Salvador Epstein; Ted Lee Discharge Orders/Prescriptions Prescriptions: No Action (DME) JUXTA LITE See Rx Instructions .Route .MEDSUPPLY Qty: 2 0RF Rx Instructions: 30 - 40 mmHg Xtandi 80 mg tablet 160 mg PO QHS Patient Comments: PT STATES TAKES AT 1530 furosemide 20 mg tablet 20 mg PO BID Referrals / Follow Up: Maximiliano Kyle MD [Primary Care Provider] -
--- NOTE | 2023-11-15 11:32 | PCM.DC.SUM ---
Providers Date of Admission: 11/12/23 Date of Discharge: 11/15/23 Primary Care Physician: Dr. Maximiliano Kyle MD Consultations 11/12/23 18:15 Consult: Cardiology Routine Consulting Provider: Salvador Epstein Reason for Consult: New onset HF, EF 10-15% EMERGENT Consult: No MD Notified: Yes Date Notified: 11/12/23 Time Notified: 17:27 Method of Notification: ED Physician Initiated Reason For Visit: CHF EXA Diagnosis Discharge Diagnosis (1) Cardiomyopathy: Status: Acute Code(s): I42.9 - Cardiomyopathy, unspecified Medications at Discharge Home Medications JUXTA LITE #2 ea 03/24/23 enzalutamide 80 mg tablet (Xtandi) 160 mg PO QHS chemo 03/24/23 carvedilol 6.25 mg tablet 6.25 mg PO BID 30 days #60 tabs 11/15/23 empagliflozin 10 mg tablet (Jardiance) 10 mg PO DAILY 30 days #30 tabs 11/15/23 furosemide 40 mg tablet 40 mg PO DAILY 30 days #30 tabs 11/15/23 sacubitril 24 mg-valsartan 26 mg tablet (Entresto) 1 tab PO BID 30 days #60 tabs 11/15/23 spironolactone 25 mg tablet 12.5 mg (1/2 x 25 mg) PO LUNCH 30 days #15 tabs 11/15/23 Hospital Course Operations None Procedures Cardiac catheterization, EKG, Transthoracic echo and - (Chest x-ray) Summary of Care Provided Minutes Spent on Discharge: 35 Hospital Course: Patient is an 88-year-old male who presented [facility] ED on 11/12/2023 with abnormal outpatient echo and worsening shortness of breath on exertion. Hospital course as noted below. Patient discharged home in stable condition on 11/14. 1. 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 Cardiology followed. Echo 11/11 showed EF 10 to 15%, moderately dilated LV, severe global LV dysfunction, mildly enlarged LA, no significant valve disease. Chest x-ray showed interstitial edema with mild bilateral pleural effusions. Patient requiring low-flow oxygen at rest on admit, weaned off by hospital day 2. Treated with IV Lasix 20 mg twice daily from admission till morning of discharge with good urine output and improvement in lower extremity swelling and dyspnea on exertion. Was also started on low-dose Entresto, Coreg and spironolactone on 11/13 per cardiology recommendations and tolerated these well. Had left heart cath on 11/14 that showed no coronary artery disease. Patient was transitioned to p.o. Lasix at that time. Completed ambulatory O2 testing on day of discharge and did not require any supplemental oxygen. Stable for discharge home on new cardiac medications with close outpatient cardiology follow-up scheduled. 2. History of prostate cancer with metastasis to bone, history of pathologic left humerus fracture ? Previously followed with oncology at [facility], now follows with Dr. Mcgee with Oncology, last office visit on 10/25/2023. Initially diagnosed with prostate cancer in January 2023; sustained fall at that time with pathologic fracture of left humerus and was found to have a diagnostic PSA over 500. Fracture managed conservatively. Has had great treatment response with medication therapy. Continued home Xtandi while inpatient. Continue scheduled infusions of leuprolide and zoledronic acid on discharge. 3. Mild acute on chronic debility ? PT/OT/case management followed. Lives at home with , uses cane for ambulation. Mildly weaker than his baseline presumed secondary to HFrEF exacerbation but did well work with therapy and was fine for discharge home without home health care. 4. Type 2 diabetes mellitus ? Diet controlled. Most recent A1c less than 6%. No need for sliding scale insulin with meals while inpatient. Outpatient follow-up with PCP. 5. Hypertension ? Reported history but not on any home antihypertensives. Blood pressure normotensive during admission. Started on several medications as noted above with stable blood pressure. Total clinical time spent by myself addressing the patient's medical issues, reviewing all the data, and collaborating with patient's care team: 35 minutes. Physical Exam Const alert, oriented x3, no apparent distress and average body habitus Constitutional Narrative: Pleasant elderly male, sitting up comfortably in bed, conversing normally, in no acute distress. General Appearance: cooperative and comfortable HEENT normocephalic, head/scalp atraumatic, hearing grossly normal bilaterally, nasal mucous membranes and turbinates normal and moist oral mucous membranes Eyes PERRL, EOMs intact bilaterally and conjunctivae normal Neck full ROM Chest inspection of chest normal Resp normal respiratory effort and no use of accessory muscles Resp Narrative: Mildly decreased breath sounds noted in bilateral lung bases with crackles noted. No wheezing noted. Breathing comfortably on room air at rest. Stable. Cardio regular rate, regular rhythm, no murmurs and peripheral pulses 2+ throughout GI normal to inspection, nondistended, normoactive bowel sounds, soft to palpation, non-tender and non-distended Back/Spine normal ROM Extremity full ROM Extremity Narrative: +1-2 lower extremity pitting edema noted. Improving. Skin no rashes or lesions noted Neuro moves all extremities and no focal motor deficits Speech: speech normal Psych mental status grossly normal Weight / BMI Weight Weight: 78.1 kg Body Mass Index (BMI) 24.0 ABG / Lab / Microbiology Data 11/13/23 06:19 11/15/23 04:16 Laboratory: Laboratory Results - last 24 hr 11/14/23 18:47: Magnesium 2.2 11/15/23 04:16: Sodium 142, Potassium 3.4 L, Chloride 107, Carbon Dioxide 29.0, Anion Gap 6, BUN 26 H, Creatinine 1.00, Estim Creat Clear Calc 56.48, Est GFR (MDRD) Af Amer 91, Est GFR (MDRD) Non-Af 75, BUN/Creatinine Ratio 26.0 H, Glucose 113 H, Calcium 8.6 Meaningful Use Info Meaningful Use Meaningful Use Diagnoses (Choose all that apply): CHF CHF OSCAR/ARB ordered at discharge?: Yes Documented LVEF (%): 15 Ischemic Stroke Statin Dosing Therapy Reference: STATIN DOSE THERAPY REFERENCE: * Patients > 75 years receive moderate or high dose statin therapy. * Patients 75 years or YOUNGER should receive HIGH intensity statin dose unless contraindicated. You will be required to document reason for non-treatment if statin daily dose does not meet guidelines. HIGH DOSE STATIN THERAPY DAILY Atorvastatin > than or = to 40 mg Rosuvastatin > than or = to 20 mg Amlodipine + Atorvastatin > than or = to 2.5/40 mg Ezetimibe + Simvastatin 10/80 mg Simvastatin 80mg Discharge Plan Admission Admit Date/Time: 11/12/23 17:21 Primary Reason for Your Visit: Worsening shortness of breath with exertion Attending Provider: Amado Jean Primary Care Provider: Maximiliano Kyle Consulting Providers: Salvador Epstein; Ted Lee Instructions Additional Instructions / Restrictions: Please take all new medications for your heart failure as noted below. Follow-up with cardiology in the office as scheduled by them. Discharge Orders/Prescriptions Prescriptions: New furosemide 40 mg Tablet 40 mg PO DAILY 30 Days Qty: 30 2RF carvedilol 6.25 mg Tablet 6.25 mg PO BID 30 Days Qty: 60 2RF spironolactone 25 mg Tablet 12.5 mg PO LUNCH 30 Days Qty: 15 2RF Jardiance 10 mg Tablet 10 mg PO DAILY 30 Days Qty: 30 2RF Entresto 24-26 mg Tablet 1 tab PO BID 30 Days Qty: 60 2RF Continued (DME) JUXTA LITE See Rx Instructions .Route .MEDSUPPLY Qty: 2 0RF Rx Instructions: 30 - 40 mmHg Xtandi 80 mg tablet 160 mg PO QHS Patient Comments: PT STATES TAKES AT 1530 Discontinued furosemide 20 mg tablet 20 mg PO BID Referrals / Follow Up: Maximiliano Kyle MD [Primary Care Provider] - Disposition Disposition (needs filled in before D/C Order can be placed): Home, Self Care Charges/Coding Visit Charges Inpatient E&M: 59100 Disch Hosp >30min
[2023-11-15] MEDS: Spironolactone 25 MG Tablet 12.5 MG PO (12:06)
--- NOTE | 2023-11-15 12:12 | CASEMGMT ---
Patient does not have a Healthcare Power of Formula Bottler or a Healthcare Living Will. Per admission questions patient is not interested in documents. Francesca XIONG
--- NOTE | 2023-11-15 15:51 | CHAPLAIN ---
Type of Pastoral Visit _x__ Initial Visit ___ Follow-up Visit ___ On-call Visit ___ General Patient Visit ___ Spiritual Assessment ___ Family Conference ___ Bereavement ___ Rapid Response ___ Code Blue ___ Other (describe below) Pastoral Care Referral From _x__ Patient ___ Family ___ Nurse ___ Physician ___ Secondary Education Professor ___ [employer]man [employer] ___ Other (describe below) Sacrament/Intervention _x__ Active listening ___ Anointing ___ Mormon ___ Bereavement ___ Communion _x__ Christin exploration ___ _x__ Life review _x__ Prayer ___ Reconciliation ___ Sacrament of Sick _x__ Supportive presence ___ Wedding ___ Other (describe below) Pastoral Comments patient is welcoming and 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; pt is talkative and describes his last couple of days of learning of his illnesses and new diagnosis; pt goes into greater detail about his life experiences and his current family situation; pt has had some encounters that lead him to spirituality which he is now getting more in touch with and he admits this; pt has some questions about christin and admits to some honest reflection and praying that he has been doing; pt is given time to express himself and share his feelings and concerns; pt is also aware of needs that his might have if he is not around anymore; pt was baptized as a young man in the [employer] christ[employer] but has not been active in a chrsitin community in adulthood; pt desires for prayers and support from 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
--- NOTE | 2023-11-15 16:17 | CASEMGMT ---
Patient has order for discharge. RN CM called [facility] to inquire about Jardiance and Entresto, no copay for either. Patient ambulated 450ft with therapy. MAVIS CM in to discuss needs at discharge with patient, and son at bedside. Patient denies needs or help at discharge. 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 Patient, , and son had no further questions or concerns.
--- NOTE | 2023-11-23 12:53 | CL.D_ITS ---
Patient Name: JESS JAMES Study Date: 11/15/2023 Performing: Yadiel Bettencourt MD Ht: 71 inches 180.34 cm : 1935 Wt: 172.4 lbs 78.1 kg Age: 88 Gender: male BSA: 1.98 PROCEDURE(S) PERFORMED DC01-(69905)LHC/COR/LV CLINICAL PROFILE AND INDICATIONS Indications: Cardiomyopathy Heart Failure: NYHA Class: 3, Newly Diagnosed: Yes, Heart Failure Type: Systolic Stress/Imaging Stress/Image Study Performed: No CAD Presentations: Other: sob CONCLUSIONS Severe cardiomyopathy out of proportion to the extent of the right coronary artery lesion. RECOMMENDATIONS Medical therapy DESCRIPTION OF PROCEDURE The patient arrived to the procedure lab. The risks and benefits of the procedure as well as a full description of our services here and current unavailability of surgical backup were fully explained to the patient and/or their significant other prior to the catheterization. The Timeout was completed, verifying the correct patient and procedure. The patient's procedural site was prepped and draped in the usual fashion. Local anesthetic was given subcutaneously to right radial region with Lidocaine 2%. Using a modified Seldinger technique, arterial access was obtained via the right radial artery, a 6Fr sheath was inserted. rio bower Right Coronary Artery selective angiography was then performed in multiple views using a 5 Fr. 4.0 [place] catheter. Left Coronary Artery selective angiography was performed in multiple views using a 5 Fr. 4.0 [place] catheter. Left Ventriculography was performed in SANDOVAL projection using a 5 Fr. Pigtail catheter. LV to AO pullback pressures were then recorded.The arterial sheath was pulled and a TR Band was applied for hemostasis CORONARY ANGIOGRAPHY DOMINANCE: Right Dominant LEFT HEART ASSESSMENT Left Ventricular Ejection Fraction: by LV Gram 12 % Global Hypokinesis - Severe Depressed Left Ventricular systolic function LEFT MAIN: Angiographically normal LEFT ANTERIOR DESCENDING ARTERY: Mild luminal irregularities CIRCUMFLEX ARTERY: Mild luminal irregularities RIGHT CORONARY ARTERY: MID RCA: 60 smooth % Stenosis DISTAL RCA: Mild luminal irregularities COMPLICATIONS No Complications PROCEDURE MEDICATIONS Versed 1 mg IV Fentanyl 50 mcg IV Aspirin (325mg) 1 Tabs PO 11/15/2023 08:05:14 Benadryl 50 mg IV @ 11/15/2023 08:05:23 Heparin given IA 11/15/2023 08:15:19 Solu-medrol 125 mg IV 11/15/2023 08:05:30 SUMMARY OF HEMODYNAMIC DATA Time AIR REST ECG 08:01:10 AO 86/52 (69) SA 08:19:33 LV 60/-1, 4 08:27:06 LV 103/-1, 0 08:27:14 LV 91/0, 17 08:28:25 LV 98/0, 1 08:28:34 LVp 102/0, 2 08:28:38 AOp 0/-27 (10) 08:28:45 Signed By Yadiel Bettencourt MD On 11/23/2023 12:52:58 Yadiel Bettencourt MD
== END 2023-11-15 17:15 | disposition home or self-care (01) | DRG 286 ==
LOC: ED 16:57 → PCU 17:36
PROVIDERS: Internal Medicine Interventional Cardiology; Admitting Provider Internal Medicine; Emergency Provider Emergency Medicine; PCP Internal Medicine; Visit Provider Hospitalist
DX: I11.0 Hypertensive heart disease with heart failure (principal); I50.21 Acute systolic (congestive) heart failure; C79.51 Secondary malignant neoplasm of bone; I42.9 Cardiomyopathy, unspecified; E11.9 Type 2 diabetes mellitus without complications; C61 Malignant neoplasm of prostate; I08.0 Rheumatic disorders of both mitral and aortic valves; I44.7 Left bundle-branch block, unspecified; Z66 Do not resuscitate; R53.81 Other malaise; I49.3 Ventricular premature depolarization; M84.522D Pathological fracture in neoplastic disease, left humerus, subsequent encounter for fracture with routine healing; Z80.8 Family history of malignant neoplasm of other organs or systems; R09.02 Hypoxemia; Z51.5 Encounter for palliative care; Z80.41 Family history of malignant neoplasm of ovary
CPT/HCPCS: 36415; 71046; 80048; 80061; 80076; 83735; 83880; 84100; 84443; 84484; 85025; 85610; 85730; 93005; 93306; 93458; 94668; 97162; 97165; 97530; 97535; 99152; 99153; 99285; Q9957; Q9967; A4216; C1769; C1894; C8929; J1940

== ENCOUNTER → 2023-11-12 | Outpatient (CLI) | payer MEDICARE, SELFPAY ==
--- NOTE | 2023-11-12 14:08 | ECHOCS_ITS ---
Reason For Study: DYSPNEA Procedure This was a 2D Doppler, Color Flow transthoracic echocardiogram. The study was technically difficult. D/T poor accoustic windows. Contrast injection was performed. Exam performed in department. PT was taken to ED for further evaluation per Dr. Kyle and Dr. Epstein at conclusion of exam. Left Ventricle Moderately dilated left ventricle. Severe global left ventricular systolic dysfunction. The estimated ejection fraction is 10-15 %. Right Ventricle Normal RV size. Normal systolic function. Atria The left atrium is mildly enlarged. Normal right atrium. Mitral Valve The mitral valve is structurally normal. No prolapse or stenosis seen. Moderate (2+) mitral valve insufficiency. Tricuspid Valve Normal tricuspid valve. Trivial tricuspid valve insufficiency. Pulmonary artery systolic pressure is 46 mmHg. Aortic Valve Trisinus/trileaflet aortic valve. Mild focal aortic valve calcification. There is no aortic stenosis. Trivial aortic valve insufficiency. Pulmonic Valve Normal pulmonic valve. Mild (1+) pulmonic valve insufficiency. Great Vessels Normal aortic root. Pericardium/Pleural No pericardial effusion. Medication 22 gauge I.V. with prn adaptor inserted into right arm. Diluted definity 1.0ml given slow IV push to enhance endocardial definition. MMode/2D Measurements & Calculations LVIDd: 5.9 cm IVSd: 1.1 cm Ao root diam: 3.7 cm LVIDs: 5.1 cm LVPWd: 1.1 cm RVDd: 3.7 cm FS: 13.5 % LAV(MOD-bp): 120.2 ml LVAd ap4: 50.8 cm2 LVAd ap2: 38.8 cm2 LAV(MOD-bp) Indexed: 60.3 ml/m2 LVLd ap4: 10.2 cm LVLd ap2: 9.5 cm LAV(MOD-sp2): 136.6 ml EDV(MOD-sp4): 203.8 ml EDV(MOD-sp2): 130.2 ml LAV(MOD-sp4): 101.1 ml EDV(sp4-el): 215.8 ml EDV(sp2-el): 134.5 ml LVAs ap4: 46.9 cm2 LVAs ap2: 36.9 cm2 LVLs ap4: 9.7 cm LVLs ap2: 9.8 cm ESV(MOD-sp4): 185.0 ml ESV(MOD-sp2): 115.9 ml ESV(sp4-el): 192.9 ml ESV(sp2-el): 117.5 ml EF(MOD-sp4): 9.2 % EF(MOD-sp2): 11.0 % EF(sp4-el): 10.6 % SV(MOD-sp4): 18.7 ml SV(MOD-sp2): 14.3 ml SV(sp4-el): 22.9 ml LA A4 area: 27.7 cm2 LA dimension(2D): 4.1 cm RA A4 area: 21.2 cm2 TAPSE: 1.8 cm Doppler Measurements & Calculations MV E max greg: 113.8 cm/sec MV V2 max: 141.0 cm/sec MV P1/2t max greg: 143.7 cm/sec MV max P.0 mmHg MV P1/2t: 40.9 msec MV V2 mean: 72.3 cm/sec MV dec slope: 1028 cm/sec2 MV mean P.5 mmHg MV V2 VTI: 23.9 cm MVA(P1/2t): 5.4 cm2 Ao V2 max: 98.1 cm/sec LV V1 max: 81.0 cm/sec MR max greg: 493.2 cm/sec Ao max P.8 mmHg LV V1 max P.6 mmHg MR max P.3 mmHg Ao V2 mean: 71.6 cm/sec LV V1 mean P.5 mmHg MR mean greg: 374.6 cm/sec Ao mean P.4 mmHg LV V1 mean: 58.0 cm/sec MR mean P.7 mmHg Ao V2 VTI: 16.8 cm LV V1 VTI: 15.5 cm MR VTI: 159.0 cm AV (velocity ratio): 0.92 PA V2 max: 78.0 cm/sec PI end-d greg: 203.7 cm/sec TR max greg: 327.4 cm/sec PA V2 mean: 51.0 cm/sec TR max P.9 mmHg ECHO/Echo Complete W/ Contrast Interpretation Summary The estimated ejection fraction is 10-15 %. Moderately dilated left ventricle. The left atrium is mildly enlarged. Moderate (2+) mitral valve insufficiency. Mild (1+) pulmonic valve insufficiency. No previous study for comparison The study was technically difficult. Contrast injection was performed. Ordering Physician: Maximiliano Kyle Referring Physician: Maximiliano Kyle Performed By: Remedios Crisostomo, MELI, RVT
== END | disposition home or self-care (01) ==
PROVIDERS: PCP Internal Medicine; Referring Provider Internal Medicine; Visit Provider Internal Medicine
DX: R06.00 Dyspnea, unspecified (principal)
CPT/HCPCS: 93306; Q9957; A4216; C8929

== ENCOUNTER → 2023-11-30 | Outpatient (CLI) | payer MEDICARE, SELFPAY ==
[2023-11-30 15:57] LABS: Absolute Lymphocyte Count 2.37 X10^3/uL (0.83-4.51); Basophil# 0.04 X10^3/uL; Basophil% 0.7 % (0-1); Eosinophil# 0.08 X10^3/uL; Eosinophils% 1.4 % (0-5); Hematocrit 43.5 % (40-54); Hemoglobin 14.3 g/dL (13.0-16.5); Lymphocyte # 2.37 X10^3/ul (0.83-4.51); Lymphocyte % 40.2 % (19-41); Mean Corp Hgb Conc 32.9 g/dL (32-36); Mean Corpuscular Hgb 33.3 pg (27.0-32.0); Mean Corpuscular Volume 101.2 fL (80-94); Mean Platelet Vol. 10.6 fl (6.2-12.0); Monocyte# 0.43 X10^3/uL; Monocyte% 7.3 % (0-10); NRBC Flagged by Analyzer 0 % (0-5); Neutrophil # 2.96 X10^3/uL (2.7-7.7); Neutrophil % 50.1 % (47-70); Platelet Count 162 K/mm3 (150-450); RBC Distribution Width CV 13.2 % (11.6-14.6); White Blood Count 5.9 K/mm3 (4.4-11.0)
[2023-11-30 16:07] LABS: Anion Gap 6 (5-15); BUN 31 mg/dL (7-18); BUN/Creat Ratio 27.9 RATIO (10-20); Calcium,Total 8.9 mg/dL (8.5-10.1); Chloride 111 mmol/L (98-107); Creatinine, Serum 1.11 mg/dL (0.70-1.30); EST Glomerular Filtration Rate 67 mL/min (>60); Est Glom Filt Rate - Afr Amer 81 mL/min (>60); Glucose 127 mg/dL (74-106); Potassium 4.4 mmol/L (3.5-5.1); Sodium Level 141 mmol/L (136-145)
[2023-11-30 16:07] LABS: ALB/GLOB Ratio 0.8 RATIO (0.9-2.4); AST(SGOT) 16 U/L (15-37); Alanine Aminotransfer ALT/SGPT 10 U/L (16-61); Albumin, Serum 3.1 g/dL (3.2-5.0); Alkaline Phosphatase 60 U/L (45-117); Anion Gap 6 (5-15); BUN 31 mg/dL (7-18); BUN/Creat Ratio 28.7 RATIO (10-20); Calcium,Total 8.9 mg/dL (8.5-10.1); Chloride 111 mmol/L (98-107); Creatinine, Serum 1.08 mg/dL (0.70-1.30); EST Glomerular Filtration Rate 69 mL/min (>60); Est Glom Filt Rate - Afr Amer 83 mL/min (>60); Globulin 3.8 g/dL (2.2-4.2); Glucose 126 mg/dL (74-106); PSA,Total- Diagnostic 0.16 ng/mL (0.0-4.0); Potassium 4.3 mmol/L (3.5-5.1); Protein, Total 6.9 g/dL (6.4-8.2); Sodium Level 141 mmol/L (136-145)
== END | disposition home or self-care (01) ==
LOC: BIMLAB 11:25
PROVIDERS: Internal Medicine Hematology & Oncology; PCP Internal Medicine; Referring Provider Internal Medicine Cardiovascular Disease; Visit Provider Internal Medicine Cardiovascular Disease
DX: I42.0 Dilated cardiomyopathy (principal); C79.51 Secondary malignant neoplasm of bone; I50.20 Unspecified systolic (congestive) heart failure; C61 Malignant neoplasm of prostate
CPT/HCPCS: 36415; 80048; 80053; 83880; 84153; 85025

== ENCOUNTER → 2023-12-31 | Outpatient (CLI) | payer MEDICARE, SELFPAY ==
[2023-12-31 12:52] LABS: Anion Gap 4 (5-15); BUN 21 mg/dL (7-18); BUN/Creat Ratio 19.1 RATIO (10-20); Calcium,Total 8.8 mg/dL (8.5-10.1); Chloride 110 mmol/L (98-107); EST Glomerular Filtration Rate 67 mL/min (>60); Est Glom Filt Rate - Afr Amer 82 mL/min (>60); Glucose 147 mg/dL (74-106); Potassium 4.3 mmol/L (3.5-5.1); Sodium Level 142 mmol/L (136-145)
== END | disposition home or self-care (01) ==
LOC: BIMLAB 10:27
PROVIDERS: PCP Internal Medicine; Referring Provider Physician Assistant; Visit Provider Internal Medicine Cardiovascular Disease
DX: I50.20 Unspecified systolic (congestive) heart failure (principal)
CPT/HCPCS: 36415; 80048

== ENCOUNTER → 2024-03-03 | Outpatient (CLI) | payer MEDICARE, SELFPAY ==
--- NOTE | 2024-03-03 16:09 | RAD_ITS ---
INDICATION: right hip pain EXAMINATION/TECHNIQUE: X-RAY - XR Pelvis 1 View COMPARISON: FINDINGS: PELVIC BONES: No displaced fracture, destructive or sclerotic lesions. Note that overlapping bowel shadows may however obscure fine detail. Sacroiliac joints are unremarkable. No widening of the pubic symphysis. HIPS: The articular structures are unremarkable. There is a 3cm sclerotic bony lesion in the proximal right femur. No displaced fracture seen in this frontal view. SOFT TISSUES: No soft tissue swelling or gas. RAD/Pelvis 1 or 2 Views IMPRESSION: Sclerotic right femoral lesion. Electronically Signed: Berny Manzano DO at 20:03 EDT Reading Location ID and State: [facility] / [place] Tel [phone], Service support ,
--- NOTE | 2024-03-03 16:09 | RAD_ITS ---
STUDY: X-RAY - RIGHT FEMUR REASON FOR STUDY: Male, 88 years old. right hip pain TECHNIQUE: 2 view(s) of the femur. COMPARISON: 03/30/2023 FINDINGS: 3 cm round sclerotic lesion with geographic margins of the intertrochanteric right femur and correlation with bone scan and MRI may be useful. Normal visualized soft tissue structure. RAD/Femur Min 2 Views IMPRESSION: 3 cm sclerotic lesion of the intertrochanteric femur and correlation with bone scan and MRI may be useful. Electronically Signed: Mahin Meng MD at 23:19 EDT ,
== END | disposition home or self-care (01) ==
LOC: MTRAD 16:09
PROVIDERS: PCP Internal Medicine; Referring Provider Internal Medicine Hematology & Oncology; Visit Provider Internal Medicine Hematology & Oncology
DX: M25.551 Pain in right hip (principal)
CPT/HCPCS: 72170; 73552

== ENCOUNTER → 2024-03-23 | Outpatient (CLI) | payer MEDICARE, SELFPAY ==
--- NOTE | 2024-03-23 13:13 | ECHOLC_ITS ---
Reason For Study: lvef recovery Procedure This was a limited 2D transthoracic echocardiogram. The study was technically difficult. Contrast injection was performed. Exam performed in department. Left Ventricle Normal LV size. The left ventricular ejection fraction is 35 %. There is moderate global hypokinesis of the left ventricle. Right Ventricle Normal RV size. Normal systolic function. Atria Normal left atrium. Normal right atrium. Mitral Valve Normal mitral valve. Tricuspid Valve Normal tricuspid valve. Aortic Valve Trisinus/trileaflet aortic valve. Mild focal aortic valve calcification. Great Vessels Normal aortic root. Pericardium/Pleural No pericardial effusion. Medication 22 gauge I.V. with prn adaptor inserted into right arm. Diluted definity 1ml given slow IV push to enhance endocardial definition. MMode/2D Measurements & Calculations LVOT diam: 2.0 cm LAV(MOD-bp): 56.9 ml LVAd ap4: 47.4 cm2 LVOT area: 3.1 cm2 LAV(MOD-bp) Indexed: 28.5 ml/m2 LVLd ap4: 9.9 cm LAV(MOD-sp2): 70.3 ml EDV(MOD-sp4): 180.7 ml LAV(MOD-sp4): 43.3 ml EDV(sp4-el): 191.7 ml LVAs ap4: 37.5 cm2 LVLs ap4: 9.6 cm ESV(MOD-sp4): 127.0 ml ESV(sp4-el): 123.5 ml EF(MOD-sp4): 29.7 % EF(sp4-el): 35.6 % SV(MOD-sp4): 53.7 ml SV(sp4-el): 68.2 ml LA A4 area: 18.7 cm2 SI(MOD-sp4): 26.8 ml/m2 RA A4 area: 13.7 cm2 ECHO/Echo Limited w/Contrast Interpretation Summary The left ventricular ejection fraction is 35 %. Normal LV size. There is moderate global hypokinesis of the left ventricle. Contrast injection was performed. Compared to previous study, the left ventricu lar systolic function has improved.. Ordering Physician: Daniel Phillips Referring Physician: Daniel Phillips Performed By: Mattie Yoder and Student
== END | disposition home or self-care (01) ==
LOC: CVS 13:05
PROVIDERS: PCP Internal Medicine; Referring Provider Internal Medicine Cardiovascular Disease; Visit Provider Internal Medicine Cardiovascular Disease
DX: R60.0 Localized edema (principal); I50.9 Heart failure, unspecified
CPT/HCPCS: 93308; Q9957; A4216; C8924; J2785

== ENCOUNTER 2024-06-03 17:30 | Emergency (ER) | payer MEDICARE, SELFPAY ==
[2024-06-03 17:31] VITALS: BP 143/67; PULSE 57; RESP 18; TEMP 36; O2SAT 96
--- NOTE | 2024-06-03 17:39 | EDS_ITS ---
HPI History of Present Illness Chief Complaint: Foreign Body [facility] Medical History Bradycardia Driving safety issue Complete left bundle branch block Cardiomyopathy History of diabetes mellitus Bilateral lower extremity edema Dyspnea Carotid arterial disease Carotid artery bruit Arrhythmia Venous insufficiency of both lower extremities Metastasis to bone Prostate cancer Abnormal CT of the abdomen Bone cancer Pathologic fracture of humerus Nondisplaced transverse fracture of shaft of humerus, left arm, initial encounter for closed fracture Elevated PSA BPH (benign prostatic hyperplasia) Weight loss, non-intentional Flu vaccine need Hypertension Change in skin mole Type 2 diabetes mellitus Bone fracture Home Medications ?Medication ?Instructions ?Recorded ?Last Taken ?Type enzalutamide 80 mg tablet (Xtandi) 160 mg PO QHS chemo 03/24/23 11/11/23 History spironolactone 25 mg tablet 25 mg PO LUNCH 30 days #30 tabs 11/23/23 Unknown Rx sacubitril 49 mg-valsartan 51 mg 1 tab PO BID #60 tabs 12/07/23 Unknown Rx tablet (Entresto) carvedilol 25 mg tablet 25 mg PO BID 30 days #60 tabs 01/03/24 Unknown Rx empagliflozin 10 mg tablet 10 mg PO DAILY 30 days #30 tabs 02/16/24 Unknown Rx (Jardiance) furosemide 40 mg tablet 40 mg PO DAILY #90 tabs 03/20/24 Unknown Rx Allergy/AdvReac Type Severity Reaction Status Date / Time shellfish derived Allergy Mild swelling Verified 06/03/24 17:31 in throat Family History Father Melanoma Mother Ovarian cancer Surgical History History of dental surgery Social History household members: spouse Smoking Status: Never smoker alcohol intake: never substance use type: does not use what type of physical activity do you participate in: none EXAM Physical Exam Const Vital Signs: 06/03/24 17:31 06/03/24 17:40 06/03/24 18:38 Temperature 96.8 F L 96.8 F L Temperature Source Temporal Pulse Rate 57 L 57 L Respiratory Rate 18 18 Respiratory Pattern Normal Blood Pressure 143/67 H 143/67 H Blood Pressure Mean 92 92 Pulse Ox 96 96 Oxygen Delivery Method [place] [facility] [place] Medical decision making narrative: HISTORY OF PRESENT ILLNESS: 89-year-old male presents with concern for esophageal foreign body. Notes take his pills this evening he notes he feels like there is something stuck in my throat. REVIEW OF SYSTEMS: Pertinent positives: Esophageal foreign body Pertinent negatives: Chest pain, shortness of breath PHYSICAL EXAM: Nursing triage notes reviewed, Vital signs reviewed Constitutional: please see [facility] HENT: MMM, no drooling, posterior oropharynx patent, no pooling secretions Eyes: Pupils equal round and reactive to light, Extraocular muscles intact Neck: No stridor, no JVD, full neck ROM Lungs: Patient speaking in full sentences clear to auscultation, No wheezing or rales. No increased work of breathing, no conversational dyspnea, no accessory muscle use, no nasal flaring. No respiratory distress noted Heart: Regular rate and rhythm, No murmurs, No rubs and No gallops, 2+ distal pulses (radial, femoral, posterior tibial) in all extremities Abdomen: Soft, there is no tenderness, rigidity, rebound or guarding, no obvious peritoneal signs, no palpable pulsatile abdominal masses, no auscultated abdominal bruit : No CVAT Extremities: No edema Neuro: No new focal neurological deficits, cranial nerves II through XII intact, 5/5 strength in all present extremities. Intact sensation to light touch in all present extremities, 2+ reflexes bilateral patella tendons. Skin: No rash or lesions noted MEDICAL DECISION MAKING: Chief Complaint: Esophageal foreign body External records reviewed: Reviewed problem list, prior imaging studies Factors affecting care: Type 2 diabetes, prostate cancer with bone metastasis, Social determinants of health: none History obtained from others: none Consults: none [facility] Narrative: Patient was initially hemodynamically stable, afebrile and nontoxic-appearing. Exam respiratory distress, esophageal impaction obstruction, without signs of airway compromise. I considered the following differential diagnosis: Esophageal foreign body, indigestion Patient was given kenia orally and was able to swallow without vomiting. States he feels better. Discussed with pharmacy. Entresto is compounded with cellulose (carbohydrate) this should be automatically broken down by the patient's endogenous salivary amylase. Low concern for esophageal food impaction requiring emergent GI evaluation. 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 I discussed my suspicion that he would pass the pill on its own given his mostly carbohydrate-based. Discussed possible transfer to nearest center with GI capability. Patient refused transfer at this time. States he felt better after drinking kenia joy. The patient was tolerating p.o. He is appropriate for discharge home. Strict return precautions were discussed. The patient and/or family, caregivers express understanding. The patient and/or family, caregivers agrees with the plan. Shared decision making: I will have a discussion with the patient and or visitors regarding risk /benefits of further testing or admission. They will be made aware of of the risk/benefits inherent in this decision they will be given the opportunity to voice understanding. Total critical care time today provided was at least 0 minutes. This excludes separately billable procedures. Critical care time (if documented) is secondary to the patient having high probability of clinically significant/life threatening deterioration in the patient's condition which required my urgent intervention. Impression: 1. Esophageal foreign body 2. Pill esophagitis Dispo: Discharge This note was generated with [employer] dictation software. It may contain incorrect words, spelling, and punctuation that were not noted in review of the chart prior to signing. Discharge Plan Triage Chief Complaint: Foreign Body ED Provider: Carl Anders Dx/Rx/DC Orders Clinical Impression: Esophageal foreign body Instructions: ED Esophageal Foreign Body, Resolved Prescriptions: No Action spironolactone 25 mg tablet 25 mg PO LUNCH 30 Days Qty: 30 11RF Entresto 49-51 mg tablet 1 tab PO BID Qty: 60 11RF Xtandi 80 mg tablet 160 mg PO QHS Patient Comments: PT STATES TAKES AT 1530 carvedilol 25 mg tablet 25 mg PO BID 30 Days Qty: 60 11RF Jardiance 10 mg tablet 10 mg PO DAILY 30 Days Qty: 30 11RF furosemide 40 mg tablet 40 mg PO DAILY Qty: 90 3RF Primary Care Provider: Maximiliano Kyle Referrals: Maximiliano Kyle MD [Primary Care Provider] - Activity Restrictions/Additional Instructions: Thank you for trusting us with your care today! It is safe to crush your tablet of Entresto. Please return to the emergency department if your symptoms change or worsen. Specifically develop drooling, difficulty breathing, choking, vomiting, if he cannot tolerate food by mouth. Please follow with your primary care physician for further outpatient evaluation and management. Print Language: Danish Disposition Disposition: Home, Self Care Discharge Date/Time: 06/03/24 18:57
--- NOTE | 2024-06-03 17:52 | ED.RN ---
Dr. Anders bedside
[2024-06-03 18:38] VITALS: BP 143/67; PULSE 57; RESP 18; TEMP 36; O2SAT 96
== END 2024-06-03 18:57 | disposition home or self-care (01) ==
PROVIDERS: Emergency Provider Emergency Medicine; PCP Internal Medicine; Visit Provider Emergency Medicine
DX: T18.198A Other foreign object in esophagus causing other injury, initial encounter (principal); C79.51 Secondary malignant neoplasm of bone; C61 Malignant neoplasm of prostate; E11.9 Type 2 diabetes mellitus without complications; W44.8XXA Other foreign body entering into or through a natural orifice, initial encounter; I10 Essential (primary) hypertension; I87.2 Venous insufficiency (chronic) (peripheral); Z79.84 Long term (current) use of oral hypoglycemic drugs; Z79.899 Other long term (current) drug therapy
CPT/HCPCS: 99282

== ENCOUNTER → 2024-08-07 | Outpatient (CLI) | payer MEDICARE, SELFPAY ==
--- NOTE | 2024-08-07 09:38 | NM_ITS ---
PROCEDURE: Nuclear medicine bone scan. REASON FOR EXAM: Follow-up metastatic prostate cancer. TECHNIQUE: After the intravenous administration of 28 mCi technetium 99 M MDP, scintigraphic images of the axial and appendicular skeletal structures were obtained. COMPARISON: Prior nuclear medicine bone scan 03/08/2023 FINDINGS: There is activity in the left kidney and faint activity in the right kidney, similar to the previous study. Tiny focus of activity in the intertrochanteric region of the proximal right femur is similar. Decreased activity mid left humeral diaphysis. Activity in the region of the proximal sacrum/lower lumbar region is slightly decreased. Foci of activity projecting over the calvarium on the prior study are not clearly demonstrated on the current examination. Similar activity of the medial clavicles, greatest on the left. Activity of the distal left clavicle is slightly decreased. NM/Bone Scan Whole Body IMPRESSION: Overall, findings are suggestive of partial interval treatment response. The d egree of activity associated with the mid left humeral diaphysis and lower lumbar spine/sacrum is decreased. 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 Reading Location: [facility]
== END | disposition home or self-care (01) ==
LOC: NM 09:36
PROVIDERS: PCP Internal Medicine; Referring Provider Internal Medicine Hematology & Oncology; Visit Provider Internal Medicine Hematology & Oncology
DX: C61 Malignant neoplasm of prostate (principal); C79.51 Secondary malignant neoplasm of bone; C41.9 Malignant neoplasm of bone and articular cartilage, unspecified
CPT/HCPCS: 78306; A9503

== ENCOUNTER 2024-12-18 11:51 | Inpatient (IN) | payer MEDICARE, SELFPAY ==
[2024-12-18] VITALS (7 sets, daily range): BP systolic 117–167; BP diastolic 61–87; PULSE 50–80; RESP 16–18; TEMP 36.5–36.8; O2SAT 96–100; BMI 26.4; BMI 25.7
--- NOTE | 2024-12-18 12:59 | ED.VIS.FALL ---
HPI HPI - Fall History of Present Illness Chief Complaint: Fall Occured/Mechanism Occurred: Today Mechanism/Context: Yes same level fall Usually ambulates: Cane Pain/Injury Pain Location: lower extremity (Right hip) Quality of Pain: Aching Worsened by: Movement Relieved by: Rest Associated Symptoms Associated Symptoms: Negative for Parasthesias, Weakness, Loss of function, Inability to ambulate, Loss of consciousness or Amnesia Narrative Narrative: Patient presents after a fall that occurred today. Patient states his started to fall and she fell into him and knocked him down. Patient denies hitting his head. Patient admits to some abrasions over his posterior elbows bilaterally. Patient complains of pain in his right hip. Patient states he is unable to bear any weight since the fall. Patient describes her pain as aching. Patient states it is worse with movement. Patient denies any paresthesias or weakness. Patient denies any other injuries. [facility] Medical History (Updated 12/18/24 @ 15:38 by Elzbieta Rodriges) Non-smoker Irregular heart beat Cutaneous horn Congestive heart failure (CHF) Bradycardia Driving safety issue Complete left bundle branch block Cardiomyopathy Bilateral lower extremity edema Dyspnea Carotid arterial disease Carotid artery bruit Arrhythmia Venous insufficiency of both lower extremities Metastasis to bone Prostate cancer Abnormal CT of the abdomen Bone cancer Pathologic fracture of humerus Nondisplaced transverse fracture of shaft of humerus, left arm, initial encounter for closed fracture History of diabetes mellitus Elevated PSA BPH (benign prostatic hyperplasia) Weight loss, non-intentional Flu vaccine need Hypertension Change in skin mole Type 2 diabetes mellitus Bone fracture Home Medications ?Medication ?Instructions ?Recorded ?Last Taken ?Type enzalutamide 80 mg tablet (Xtandi) 160 mg PO QHS chemo 03/24/23 11/11/23 History empagliflozin 10 mg tablet 10 mg PO DAILY 30 days #30 tabs 02/16/24 Unknown Rx (Jardiance) spironolactone 25 mg tablet 25 mg PO LUNCH 90 days #90 tabs 06/29/24 Unknown Rx aspirin 81 mg tablet,delayed 81 mg PO QDAY #90 tabs 09/13/24 Unknown Rx release (Adult Aspirin Regimen) atorvastatin 10 mg tablet 10 mg PO QDAY #90 tabs 09/13/24 Unknown Rx furosemide 40 mg tablet 40 mg PO DAILY 10/25/24 Unknown History sacubitril 49 mg-valsartan 51 mg 1 tab PO BID #60 tabs 11/20/24 Unknown Rx tablet (Entresto) carvedilol 25 mg tablet 25 mg PO BID 30 days #180 tabs 12/11/24 Unknown Rx Allergy/AdvReac Type Severity Reaction Status Date / Time shellfish derived Allergy Mild swelling Verified 12/18/24 11:54 in throat Family History Father Melanoma Mother Ovarian cancer Surgical History History of dental surgery Social History household members: spouse Smoking Status: Never smoker alcohol intake: never substance use type: does not use what type of physical activity do you participate in: none ROS ROS ED Constitutional Constitutional ED: Denies chills or fever(s) Eyes Eyes: Reports blurry vision; Denies diplopia ENT ENT ED: Reports rhinorrhea; Denies sore throat Cardiovascular Cardiovascular: Denies chest pain or palpitations Respiratory/Chest Respiratory/Chest: Denies cough or dyspnea Gastrointestinal Gastrointestinal: Denies nausea or vomiting Genitourinary Genitourinary ED: Denies dysuria or hematuria Musculoskeletal Musculoskeletal: Denies back pain or neck pain Integumentary Denies abscess or rash Neurologic Neurologic: Denies headache(s) or weakness Allergic/Immunologic Allergic/Immunologic ED: Denies mouth swelling or urticaria EXAM Physical Exam Const Vital Signs: 12/18/24 11:52 12/18/24 11:55 12/18/24 13:51 Temperature 97.7 F L Temperature Source Oral Pulse Rate 80 58 L Respiratory Rate 16 16 Respiratory Effort Normal Respiratory Depth Normal Respiratory Pattern Normal Blood Pressure 167/78 H 146/82 H Blood Pressure Mean 107 103 Pulse Ox 97 99 Oxygen Delivery Method Room Air Room Air Positive well nourished and well developed General Appearance ED: well developed and NAD HEENT Reports normocephalic atraumatic Neck full ROM and supple Extremity Extremity Narrative: There is tenderness to palpation over the right hip. There is no obvious deformity noted. There is decreased range of motion of the right lower extremity secondary to pain. There is pain with internal and external rotation. Pedal pulses are equal bilaterally. Sensation was intact to light touch in all digits. Capillary refill was less than 2 seconds in all digits. Strength is 5/5 bilaterally in the lower extremities. Neuro oriented x3, CN's II-XII intact bilaterally, moves all extremities, no focal motor deficits and no sensory deficits noted Zaki Coma Scale: document GCS findings Spontaneous Obeys Commands Oriented 15 Sensorium / Orientation: alert Motor Exam: strength 5/5 throughout MDM MDM MDM Narrative Medical decision making narrative: Differential diagnosis includes hip fracture, contusion, and sprain. X-rays of the right hip will be obtained to assess for fracture. History & Record Review Additional record(s) reviewed:: Prior outpatient record and Prior labs Lab Data Attestation: I reviewed the patient's lab results. Lab results narrative: CBC was reviewed and was essentially within normal limits. Basic metabolic profile was reviewed. BUN was slightly elevated at 25. Chloride was slightly elevated at 110. Glucose was slightly elevated at 114. The remainder is within normal limits. Labs: Laboratory Results - last 24 hr 12/18/24 14:15 WBC 6.2 RBC 3.82 L Hgb 13.3 Hct 39.9 L MCV 104.5 H MCH 34.8 H MCHC 33.3 RDW Std Deviation 50.2 H RDW Coeff of Danilo 13.1 Plt Count 120 L MPV 9.5 Immature Gran % (Auto) 0.600 Neut % (Auto) 64.2 Lymph % (Auto) 28.2 [place] % (Auto) 5.6 Eos % (Auto) 1.1 Baso % (Auto) 0.3 Absolute Neuts (auto) 4.0 Absolute Lymphs (auto) 1.75 Nucleated RBC % 0 Sodium 142 Potassium 4.2 Chloride 110 H Carbon Dioxide 19.5 L Anion Gap 12 BUN 25 H Creatinine 1.05 Estim Creat Clear Calc 51.18 Est GFR (MDRD) Non-Af 69 BUN/Creatinine Ratio 23.4 H Glucose 114 H Calcium 8.7 Total Bilirubin 0.51 Direct Bilirubin 0.21 AST 17 ALT 7 Alkaline Phosphatase 44 NT pro BNP II 1126 Total Protein 6.0 Albumin 3.3 L Globulin 2.7 Radiography Chest X-Ray - ED: 1 View, Read by ED Physician, Read by Radiologist, No Acute Disease and Chronic Changes Diagnostic Testing: Clinical Impression(s) from Imaging Studies Chest X-Ray 12/18/24 13:15 IMPRESSION: Cardiomegaly. Findings suggestive of scarring in both lungs. Reading Location: [id number] Hip/Pelvis X-Ray 12/18/24 13:15 IMPRESSION: There is a fracture through the right femoral neck with 0.9 cm impaction. Critical results were discussed with Dr. Alberto by Dr. Bello at the time of dictation. [facility] of the right hip were obtained. There are 3 views. On my independent interpretation, there is a basicervical fracture of the right femoral neck. There is some mild impaction noted. Radiologist also interpreted the x-rays and agrees. Portable 1 view chest x-ray was obtained. On my independent interpretation, lung wyatt shows some scarring of both bases. There is normal cardiac silhouette. Bony thorax is normal. There is no acute process noted. Radiologist also interpreted the x-ray and agrees. Management Discussion w/another healthcare provider: Hospitalist Treatment and Re-Evaluation Narrative: Patient and family were advised of his findings. Case was discussed with Dr. Hamilton from orthopedics. He is agreeable to keep the patient here. Medical screening labs were obtained. CBC was obtained to assess for leukocytosis and anemia. Basic metabolic profile was obtained to assess for electrolyte abnormality renal function. Urinalysis was obtained to assess for urinary tract infection and hematuria. EKG was obtained to assess for cardiac dysrhythmia and cardiac ischemia. Case was discussed with the hospitalist. He will admit the patient to his service. Patient and family understood and were agreeable with plan. All questions were answered. Discharge Plan Dx/Rx/DC Orders Clinical Impression: Fracture of femoral neck, right, closed, Prostate cancer, Hypertension Disposition Disposition: Acute Care Hospital [facility] Discharge Date/Time: 12/18/24 15:17
--- NOTE | 2024-12-18 13:15 | RAD_ITS ---
PROCEDURE: CHEST 1 VIEW 12/18/2024 REASON FOR EXAM: FALL TECHNIQUE: Frontal view of the chest. COMPARISON: None FINDINGS: Hardware: None Heart: Cardiomegaly. Lungs: Increased interstitial markings in both lungs worse in the right hemithorax suggestive of chronic scarring. Bones: Degenerative changes are identified within the thoracic spine. Other: Calcification of the aortic arch. RAD/Chest 1 View IMPRESSION: Cardiomegaly. Findings suggestive of scarring in both lungs. Reading Location: [id number]
--- NOTE | 2024-12-18 13:15 | RAD_ITS ---
PROCEDURE: HIP, UNI W/ PELVIS 2-3 VIEWS 12/18/2024 REASON FOR EXAM: INJURY/PAIN TECHNIQUE: HIP, UNI W/ PELVIS 2-3 VIEWS COMPARISON: None FINDINGS: There is a fracture through the right femoral neck with 0.9 cm impaction. There is no dislocation. 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 The pelvic bones appear intact. Vascular calcifications are visible. RAD/HIP, UNI W/ Pelvis 2-3 Views IMPRESSION: There is a fracture through the right femoral neck with 0.9 cm impaction. Critical results were discussed with Dr. Alberto by Dr. Bello at the time of dictation. Reading Location: [facility]
--- NOTE | 2024-12-18 14:02 | EKG12_ITS ---
Test Reason : FALL Blood Pressure : */* mmHG Vent. Rate : 49 BPM Atrial Rate : 49 BPM P-R Int : 218 ms QRS Dur : 160 ms QT Int : 480 ms P-R-T Axes : 37 -4 135 degrees QTcB Int : 433 ms Sinus bradycardia with sinus arrhythmia with 1st degree A-V block Left bundle branch block Abnormal ECG Confirmed by YVROSE COVARRUBIAS, ELIEL ([id number]), editor department LETY GAMBOA ([id number]) on 12/19/2024 1:02:09 PM Referred By: Confirmed By: ELIEL FRANCES MD
[2024-12-18 14:24] LABS: Hematocrit 39.9 % (40-54); Hemoglobin 13.3 g/dL (13.0-16.5); Immature Granulocytes Count 0.040 X10^3/uL (0.0-0.0); Mean Corp Hgb Conc 33.3 g/dL (32-36); Mean Corpuscular Volume 104.5 fL (80-94); Mean Platelet Vol. 9.5 fl (6.2-12.0); NRBC Flagged by Analyzer 0 % (0-5); Platelet Count 120 K/mm3 (150-450); RBC Distribution Width CV 13.1 % (11.6-14.6); RBC Distribution Width SD 50.2 fl (35.1-43.9); Red Blood Count 3.82 M/mm3 (4.6-6.2); White Blood Count 6.2 K/mm3 (4.4-11.0)
--- NOTE | 2024-12-18 14:35 | PCM.HP.STD ---
HPI - General General Date of Admission: 12/18/24 Date of Service: 12/18/24 Chief Complaint: Fall with right hip pain HPI Narrative JESS JAMES, is a 89 M who presented to [facility] ED on 12/18/2024 with right hip pain after a fall at home. Patient lives at home with his . Medical history significant for HFrEF and prostate cancer. Patient follows with Dr. Mcgee, last office visit on 11/07. 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 Has now been on androgen deprivation therapy since March 2023 as well as zoledronic acid and has responded very well. He was found to have new onset acute heart failure with EF 10 to 15% in October 2023. Has been following with our cardiology group since then. 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 Had fairly good recovery of ejection fraction with medical therapy with most recent EF 35% in February 2024. Patient unfortunately fell at home today. His actually fell into him and knocked him to the ground, and he had significant right hip pain post fall and was unable to get up, so EMS brought him in for further evaluation. Hip x-ray showed a fracture through the right femoral neck with 0.9 cm impaction. Case was discussed with Dr. Hamilton with orthopedics who noted patient was okay to remain here with plan for surgical intervention likely tomorrow. Hospitalist was then contacted for admission. I saw the patient at bedside in the ED, was present. Patient was mildly fatigued appearing but otherwise sitting back fairly comfortably in bed, conversing normally and in no acute distress. He had been given a dose of IV morphine for the pain and noted this was moderately helpful. He does have pain with essentially any movement. Notes that home health care has been doing therapy with him and he does have a moderate degree of debility at baseline. He has been to a rehab facility in the past and would be willing to do this again if needed on discharge. Otherwise she denies any fever/chills or other systemic symptoms currently. Will be admitted for further management. [facility] Medical History (Updated 12/18/24 @ 15:38 by Elzbieta Rodriges) Non-smoker Irregular heart beat Cutaneous horn Congestive heart failure (CHF) Bradycardia Driving safety issue Complete left bundle branch block Cardiomyopathy Bilateral lower extremity edema Dyspnea Carotid arterial disease Carotid artery bruit Arrhythmia Venous insufficiency of both lower extremities Metastasis to bone Prostate cancer Abnormal CT of the abdomen Bone cancer Pathologic fracture of humerus Nondisplaced transverse fracture of shaft of humerus, left arm, initial encounter for closed fracture History of diabetes mellitus Elevated PSA BPH (benign prostatic hyperplasia) Weight loss, non-intentional Flu vaccine need Hypertension Change in skin mole Type 2 diabetes mellitus Bone fracture Home Medications ?Medication ?Instructions ?Recorded ?Last Taken ?Type enzalutamide 80 mg tablet (Xtandi) 160 mg PO QHS chemo 03/24/23 11/11/23 History empagliflozin 10 mg tablet 10 mg PO DAILY 30 days #30 tabs 02/16/24 Unknown Rx (Jardiance) spironolactone 25 mg tablet 25 mg PO LUNCH 90 days #90 tabs 06/29/24 Unknown Rx aspirin 81 mg tablet,delayed 81 mg PO QDAY #90 tabs 09/13/24 Unknown Rx release (Adult Aspirin Regimen) atorvastatin 10 mg tablet 10 mg PO QDAY #90 tabs 09/13/24 Unknown Rx furosemide 40 mg tablet 40 mg PO DAILY 10/25/24 Unknown History sacubitril 49 mg-valsartan 51 mg 1 tab PO BID #60 tabs 11/20/24 Unknown Rx tablet (Entresto) carvedilol 25 mg tablet 25 mg PO BID 30 days #180 tabs 12/11/24 Unknown Rx Allergy/AdvReac Type Severity Reaction Status Date / Time shellfish derived Allergy Mild swelling Verified 12/18/24 11:54 in throat Family History Father Melanoma Mother Ovarian cancer Surgical History History of dental surgery Social History household members: spouse Smoking Status: Never smoker alcohol intake: never substance use type: does not use what type of physical activity do you participate in: none ROS Constitutional Constitutional: Reports fatigue and weakness; Denies chills or fever(s) Eyes Eyes: Denies change in vision Cardiovascular Cardiovascular: Denies chest pain Respiratory/Chest Respiratory/Chest: Denies shortness of breath at rest Gastrointestinal Gastrointestinal: Denies abdominal pain Musculoskeletal Musculoskeletal: Reports joint pain; Denies myalgias Vital Signs Vital Signs Vital Signs: 12/18/24 11:52 12/18/24 11:55 12/18/24 13:51 Temperature 97.7 F L Temperature Source Oral Pulse Rate 80 58 L Respiratory Rate 16 16 Respiratory Effort Normal Respiratory Depth Normal Respiratory Pattern Normal Blood Pressure 167/78 H 146/82 H Blood Pressure Mean 107 103 Pulse Ox 97 99 Oxygen Delivery Method Room Air Room Air Weight Weight: 83.5 kg Body Mass Index (BMI) 26.4 Physical Exam Const alert, oriented x3, no apparent distress and average body habitus Constitutional Narrative: Elderly male, mildly fatigued appearing but otherwise sitting back fairly comfortably in bed, conversing normally, in no acute distress. General Appearance: cooperative and comfortable HEENT normocephalic, head/scalp atraumatic, hearing grossly normal bilaterally, nasal mucous membranes and turbinates normal and moist oral mucous membranes Eyes PERRL, EOMs intact bilaterally and conjunctivae normal Neck full ROM Chest inspection of chest normal Resp normal respiratory effort, normal air movement, no use of accessory muscles and clear to auscultation bilaterally Cardio regular rate, regular rhythm, no murmurs and peripheral pulses 2+ throughout GI normal to inspection, nondistended, normoactive bowel sounds, soft to palpation, non-tender and non-distended Back/Spine normal ROM Extremity Extremity Narrative: Tenderness to palpation over right hip noted. No obvious deformity noted. Did not attempt range of motion. Skin no rashes or lesions noted Psych mental status grossly normal Results Lab / Micro Data 12/18/24 14:15 12/18/24 14:15 Labs: Laboratory Results - last 24 hr 12/18/24 14:15: WBC 6.2, RBC 3.82 L, Hgb 13.3, Hct 39.9 L, MCV 104.5 H, MCH 34.8 H, MCHC 33.3, RDW Std Deviation 50.2 H, RDW Coeff of Danilo 13.1, Plt Count 120 L, MPV 9.5, Immature Gran % (Auto) 0.600, Neut % (Auto) 64.2, Lymph % (Auto) 28.2, [place] % (Auto) 5.6, Eos % (Auto) 1.1, Baso % (Auto) 0.3, Absolute Neuts (auto) 4.0, Absolute Lymphs (auto) 1.75, Nucleated RBC % 0 Imaging Radiology Impression Chest X-Ray 12/18/24 13:15 IMPRESSION: Cardiomegaly. Findings suggestive of scarring in both lungs. Reading Location: [id number] Hip/Pelvis X-Ray 12/18/24 13:15 IMPRESSION: There is a fracture through the right femoral neck with 0.9 cm impaction. Critical results were discussed with Dr. Alberto by Dr. Bello at the time of dictation. Reading Location: [facility] Assessment & Plan Assessment/Plan (1) Fracture of femoral neck, right, closed: PLAN: Plan Patient is an 89-year-old male who presented [facility] ED on 12/18/2024 with right hip pain after a fall at home. 1. Right femoral neck fracture ? Admit under inpatient status to [facility]. Orthopedic surgery consulted. PT/OT/case management consulted. Had mechanical fall at home with resultant right hip pain. Hip x-ray showed fracture through right femoral neck with 0.9 cm impaction. N.p.o. at midnight with plan for surgery tomorrow. Preoperative evaluation as below. Pain control with scheduled Tylenol, p.o. oxycodone as needed and IV Dilaudid as needed. SCDs for DVT prophylaxis for now. Patient currently active with home health care; suspect he will need placement on discharge. 2. Preoperative evaluation ? NSQIP score: Patient has average risk of complication, serious complication and discharge to rehab facility based on risk factors of age, mild systemic disease, metastatic cancer, hypertension and heart failure. ? Labs/imaging: Hemoglobin stable at baseline 13.1. Platelets slightly down at 120, baseline 150-200. Creatinine at baseline 1.05 and BMP otherwise normal. PT/INR and PTT ordered. Repeat CBC and BMP ordered for tomorrow morning. No further imaging needed. ? Cardiac eval: Last echo in February 2024 with EF 35%. In ED here, patient hemodynamically stable on room air at rest. Chest x-ray with no volume overload noted. BNP normal. EKG with normal sinus rhythm, stable from previous. Given that patient is in compensated heart failure, no need for further cardiac workup at this time. ? Medications: Continue home beta-keisha periprocedurally. Will hold home Lasix, spironolactone, Entresto and empagliflozin on day of procedure tomorrow, then will be okay to resume on postop day 1. Holding home baby aspirin; follow-up orthopedic recommendations for DVT prophylaxis postoperatively. ? Prior procedural complications: None. ? Recommendation: Patient is medically optimized for procedure. 3. Chronic HFrEF, hypertension, hyperlipidemia ? Follows with cardiology, last office visit in August. Most recent echo with EF 35% in February 2024 as above. Hemodynamically stable and no evidence of volume overload on admission. Continue home beta-keisha and statin. Holding other home medications on the day of procedure as above with plan to restart postoperatively. 4. Prostate cancer with metastasis to bone ? Follows with oncology, last office visit in October. Diagnosed in 2022 and had pathologic left humerus fracture at that time. Has responded very well to antiandrogen therapy. Continue home Xtandi. No inpatient oncology needs, continue close outpatient follow-up. DVT prophylaxis: SCDs for now, will defer to orthopedics CODE STATUS: Full code, verified Expected disposition: TBD Total clinical time spent by myself addressing the patient's medical issues, reviewing all the data, and collaborating with patient's care team: 75 minutes. Charges/Coding Visit Charges Inpatient E&M: 49561 Init Hosp L3
[2024-12-18 14:45] LABS: Anion Gap 12 (5-15); BUN 25 mg/dL (4-19); BUN/Creat Ratio 23.4 RATIO (10-20); Calcium,Total 8.7 mg/dL (7.6-11.0); Carbon Dioxide 19.5 mmol/L (21.0-32.0); Chloride 110 mmol/L (98-108); Estimated Creatinine Clearance 51.18 ml/min (50-250); Glucose 114 mg/dL (70-99); Potassium 4.2 mmol/L (3.3-5.1)
[2024-12-18 15:40] LABS: Pro- Brain NATRIURETIC PEPTIDE 1126 pg/mL (<=1800)
[2024-12-18 15:44] LABS: AST(SGOT) 17 U/L (<=37); Alanine Aminotransfer ALT/SGPT 7 U/L (<=46); Albumin, Serum 3.3 g/dL (3.4-4.8); Alkaline Phosphatase 44 U/L (40-129); Bilirubin, Direct 0.21 mg/dL (0.00-0.30); Globulin 2.7 g/dL (2.2-4.2)
[2024-12-18 17:07] LABS: Color, Urine Yellow (Yellow); Glucose, Dipstick 1000 mg/dl (Normal); Ketone-Dipstick 15 mg/dl (Negative); Leukocyte Esterase-Dipstick Negative /ul (Negative); Mucous, Urine 0 SEEN /hpf (<or=2+); Nitrite-Dipstick Negative (Negative); Occult Blood-Urine 10 /ul (Negative); Protein-Dipstick 15 mg/dl (Negative); Specific Gravity, Urine 1.010 (1.002-1.030); Squamous Epithelial Cells - UA 0 SEEN /hpf (0-5); Urine Bilirubin Dipstick Negative (Negative)
[2024-12-18 17:12] LABS: Prothrombin Time (Protime)PT. 14.8 SECONDS (11.7-14.9)
[2024-12-18 17:13] LABS: Partial Thromboplast Time 30.4 Seconds (24.1-36.2)
[2024-12-18 17:43] LABS: Red Blood Cells-Urine 0-5 SEEN /hpf (0-5)
[2024-12-18] MEDS: ENZALUTAMIDE 80 MG TABLET 160 MG PO (18:40)
[2024-12-18] MEDS: Senna Tablet 1 TABLET PO (21:58)
[2024-12-19] VITALS (13 sets, daily range): BP systolic 102–153; BP diastolic 50–95; PULSE 62–79; RESP 15–18; TEMP 36.3–36.9; O2SAT 86–100; BMI 25.7
[2024-12-19 05:55] LABS: Hematocrit 35.8 % (40-54); Hemoglobin 12.1 g/dL (13.0-16.5); Mean Corp Hgb Conc 33.8 g/dL (32-36); Mean Corpuscular Volume 102.9 fL (80-94); Mean Platelet Vol. 10.1 fl (6.2-12.0); Platelet Count 127 K/mm3 (150-450); RBC Distribution Width CV 13.2 % (11.6-14.6); RBC Distribution Width SD 49.3 fl (35.1-43.9); Red Blood Count 3.48 M/mm3 (4.6-6.2); White Blood Count 7.3 K/mm3 (4.4-11.0)
[2024-12-19 06:14] LABS: Anion Gap 11 (5-15); BUN 24 mg/dL (4-19); BUN/Creat Ratio 23.2 RATIO (10-20); Calcium,Total 8.4 mg/dL (7.6-11.0); Carbon Dioxide 22.6 mmol/L (21.0-32.0); Chloride 109 mmol/L (98-108); Estimated Creatinine Clearance 51.67 ml/min (50-250); Glucose 122 mg/dL (70-99); Potassium 3.8 mmol/L (3.3-5.1)
--- NOTE | 2024-12-19 07:42 | PCM.PN.HOSP ---
Reason for Visit Chief Complaint: Fall with right hip pain Subjective Subjective Patient states that he is having some discomfort in the hip overnight. Plan is for OR later today. Extensive discussion with regards to CODE STATUS given metastatic disease, age, and for EF. Patient elects to remain full code at this time despite extensive description of what cardiopulmonary arrest entails with regards to resuscitation and long-term outcomes. Objective Data Objective Data Vital Signs: Vital Signs Temp Pulse Resp BP Pulse Ox O2 Del Method O2 Flow Rate 98.4 F 62 18 109/56 L 96 Room Air 2 12/19/24 05:17 12/19/24 05:17 12/19/24 05:17 12/19/24 05:17 12/19/24 05:17 12/19/24 05:18 12/18/24 15:56 Oxygen Flow Rate (L/min) 2 Oxygen Delivery Method Room Air Weight: 81.238 kg Body Mass Index (BMI) 25.7 Intake & Output: Intake and Output for Last 24 Hours 12/17/24 12/18/24 12/19/24 23:59 23:59 23:59 Output Total 250 / 650 700 / 700 Balance -250 / -650 -700 / -700 Lab / Micro Data 12/19/24 04:50 12/19/24 04:50 Labs: Laboratory Results - last 24 hr 12/18/24 14:15: WBC 6.2, RBC 3.82 L, Hgb 13.3, Hct 39.9 L, MCV 104.5 H, MCH 34.8 H, MCHC 33.3, RDW Std Deviation 50.2 H, RDW Coeff of Danilo 13.1, Plt Count 120 L, MPV 9.5, Immature Gran % (Auto) 0.600, Neut % (Auto) 64.2, Lymph % (Auto) 28.2, [place] % (Auto) 5.6, Eos % (Auto) 1.1, Baso % (Auto) 0.3, Absolute Neuts (auto) 4.0, Absolute Lymphs (auto) 1.75, Nucleated RBC % 0, Sodium 142, Potassium 4.2, Chloride 110 H, Carbon Dioxide 19.5 L, Anion Gap 12, BUN 25 H, Creatinine 1.05, Estim Creat Clear Calc 51.18, Est GFR (MDRD) Non-Af 69, BUN/Creatinine Ratio 23.4 H, Glucose 114 H, Calcium 8.7, Total Bilirubin 0.51, Direct Bilirubin 0.21, AST 17, ALT 7, Alkaline Phosphatase 44, NT pro BNP II 1126, Total Protein 6.0, Albumin 3.3 L, Globulin 2.7 12/18/24 16:22: PT 14.8, INR 1.1, APTT 30.4 12/18/24 16:40: Urine Color Yellow, Urine Clarity Clear, Urine pH 7.0, Ur Specific [place] 1.010, Urine Protein 15 H, Urine Glucose (UA) 1000 H, Urine Ketones 15 H, Urine Occult Blood 10 H, Urine Nitrite Negative, Urine Bilirubin Negative, Urine Urobilinogen Normal, Ur Leukocyte Esterase Negative, Urine RBC 0-5 SEEN, Urine WBC 0 SEEN, Ur Squamous Epith Cells 0 SEEN, Urine Bacteria 0 SEEN, Urine Mucus 0 SEEN 12/19/24 04:50: WBC 7.3, RBC 3.48 L, Hgb 12.1 L, Hct 35.8 L, MCV 102.9 H, MCH 34.8 H, MCHC 33.8, RDW Std Deviation 49.3 H, RDW Coeff of Danilo 13.2, Plt Count 127 L, MPV 10.1, Sodium 142, Potassium 3.8, Chloride 109 H, Carbon Dioxide 22.6, Anion Gap 11, BUN 24 H, Creatinine 1.04, Estim Creat Clear Calc 51.67, Est GFR (MDRD) Non-Af 69, BUN/Creatinine Ratio 23.2 H, Glucose 122 H, Calcium 8.4, Blood Type A NEGATIVE, Antibody Screen NEGATIVE Radiography Diagnostic Testing: Radiology Impression Chest X-Ray 12/18/24 13:15 IMPRESSION: Cardiomegaly. Findings suggestive of scarring in both lungs. Reading Location: [id number] Hip/Pelvis X-Ray 12/18/24 13:15 IMPRESSION: There is a fracture through the right femoral neck with 0.9 cm impaction. Critical results were discussed with Dr. Alberto by Dr. Bello at the time of dictation. Reading [facility] Physical Exam Const alert, oriented x3, no apparent distress, average body habitus and well nourished Constitutional Narrative: Elderly, white male, sitting up in bed, appears comfortable as long as he is not moving his right lower extremity, nontoxic, very pleasant HEENT head/scalp atraumatic and moist oral mucous membranes Head and Scalp: normocephalic Resp normal respiratory effort, no retractions, no use of accessory muscles and clear to auscultation bilaterally Auscultation: Negative for rales, rhonchi or wheezes Cardio regular rate, regular rhythm, S1 normal heart sound, S2 normal heart sound, no murmurs, no rub, no gallops and no clicks GI normal to inspection, nondistended, normoactive bowel sounds, soft to palpation and non-tender Extremity Extremity Narrative: Trace lower extremity edema, no cyanosis or clubbing, pedal and radial pulses are 2+ bilaterally, right lower extremity is shortened and externally rotated Neuro oriented x3 and no focal motor deficits Neuro Narrative: Unable to move right lower extremity moves all other extremities without difficulty Speech: speech normal Psych affect normal Psych Narrative: Very pleasant, eye contact is good and patient interacts appropriately Assessment & Plan Assessment/Plan (1) Fracture of femoral neck, right, closed: QUALIFIERS: Encounter type: initial encounter Qualified Code(s): S72.001A - Fracture of unspecified part of neck of right femur, initial encounter for closed fracture PLAN: Plan Right femoral neck fracture-suspect pathological fracture with metastatic prostate cancer - Hold aspirin - OR today with Dr. Hamilton - Continue scheduled Tylenol - Continue as needed oxycodone - DVT prophylaxis per primary service postoperatively - PT/OT consultation postoperatively - Social work/case management consultation for assistance with either home health or placement after discharge depending on functional status - Per discussion with him both he and his do ambulate with canes and it sounds like they both may be frail Chronic HFrEF - Most recent echocardiogram from 03/12/2024 shows an EF of 35% - Hold Jardiance, Lasix, Aldactone, Entresto and restart postoperatively if able - Monitor closely in the perioperative period for volume overload Essential hypertension/hyperlipidemia - Continue home beta-keisha - Continue home statin - Continue home aspirin Chronic LBBB - last left heart catheterization 11/23/2023 demonstrating 60% smooth stenosis in the mid RCA and mild luminal irregularities in the distal RCA, circumflex artery, LAD - monitor post-op 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 Mcgee - bone supportive therapy with zoledronic acid every 12 weeks - monitor for post-op retention DM-2 - hold Jardiance perioperatively and restart post op - Last a1c 5.7 on 10/25/24 - Thrombocytopenia - plts down but stable - likely related to consumption with fracture DVT Prophylaxis - SCD's - post op chemoprophylaxis per ortho Code Status -FULL CODE--> will remain full code after extensive discussion Charges/Coding Visit Charges Inpatient E&M: 88315 Subs Hosp L2
--- NOTE | 2024-12-19 11:00 | CASEMGMT ---
MAVIS PATTON Assessment Face to Face with patient for initial transition planning/care coordination assessment. MAVIS PATTON introduced self and role at [facility], pt voices understanding. Pt is A&Ox4 and is resting comfortably in bed and is calm. Care providers, pharmacy, and demographics verified. Admitting dx: Right Hip Fracture after fall, see H&P. DANIE Strata: 2 PCP: Saroj Specialists: BRENDAN, Arely (Oncology), Joe (ENT), Uzair (Dermatology), Alfonso (Ortho) Preferred Pharmacy: [facility] Insurance: [employer] [facility] Prescription Benefit: Yes LNOK: Chela (W), Gordon (Son), Robson (Son), Simeon (Son) Living Arrangements: Pt lives with his in a single story home with a basement with a FFSU and 4 total steps to enter the home ADLs/IADLs: Reports indep @ baseline. Pt states that his mainly does the cooking.Pt states that his son Gordon helps with mowing. States that his other son Simeon comes q Wednesday to help with anything else they need. Transportation: Pt states that his does not drive any longer. Pt states that he normally drives and that his sons drive. SW plans to follow up for transportation needs/resources DME: Noted that the pt has a hx of DMII. Pt states that he does not need or want the equipment to check his BS levels and states that his PCP manages this and that the pt manages his diet accordingly with nutrient dense, high fiber foods. Pt also states that he has a cane, shower chair, FWW, hearing aids, and exercise equipment. Pt denies medical alert system resources at this time HHC/SNF/OP: Pt states that he is active with [facility] and wishes to continue their services. Pt states that he has been to in the past for OP PT. Pt?s goal: Return to PLOF Plan: TBD. Pt is scheduled for surgery today at 1330. PT/OT to follow. At this time, the pt states that it is too early to tell what he will need or want at the time of DC. Pt denies further questions or concerns at this time. Repot given to BIBIANA GAMBLE CM. David Montemayor RN, CM
--- NOTE | 2024-12-19 12:43 | CONS.ORTHO ---
HPI Consult Data Date of Consult: 12/19/24 HPI Narrative HPI Narrative: JESS JAMES, is a 89 M who presents with right hip pain after fall. Patient had a fall when his fell towards him yesterday at the parking lot. This was a ground-level fall. He was brought in and was found to have right femoral neck fracture. I was consulted for orthopedics. Saw the patient today in 324. Patient had some balance issues and was able to walk with 2 canes or a walker over the last year. He was predominantly household ambulator. He had a right tibia fracture many years ago which was treated conservatively. He had a left humerus fracture likely metastatic from prostate cancer which also healed nonoperatively. He is on Xtandi for chemotherapy for prostate cancer. He has known baseline bilateral pedal edema which may likely be from cardiac comorbidities. Patient is on baby aspirin. Medical history significant for HFrEF and prostate cancer. Patient follows with Dr. Mcgee, last office visit on 11/07. 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 Has now been on androgen deprivation therapy since March 2023 as well as zoledronic acid and has responded very well. He was found to have new onset acute heart failure with EF 10 to 15% in October 2023. Has been following with our cardiology group since then. 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 Had fairly good recovery of ejection fraction with medical therapy with most recent EF 35% in February 2024. [facility] Medical History (Updated 12/19/24 @ 12:[address] Bj Hamilton MD) Diabetes Difficulty swallowing Non-smoker Irregular heart beat Cutaneous horn Congestive heart failure (CHF) Bradycardia Driving safety issue Complete left bundle branch block Cardiomyopathy Bilateral lower extremity edema Dyspnea Carotid arterial disease Carotid artery bruit Arrhythmia Venous insufficiency of both lower extremities Metastasis to bone Prostate cancer Abnormal CT of the abdomen Bone cancer Pathologic fracture of humerus Nondisplaced transverse fracture of shaft of humerus, left arm, initial encounter for closed fracture History of diabetes mellitus Elevated PSA BPH (benign prostatic hyperplasia) Weight loss, non-intentional Flu vaccine need Hypertension Change in skin mole Type 2 diabetes mellitus Bone fracture Home Medications ?Medication ?Instructions ?Recorded ?Last Taken ?Type enzalutamide 80 mg tablet (Xtandi) 160 mg PO QHS chemo 03/24/23 11/11/23 History empagliflozin 10 mg tablet 10 mg PO DAILY 30 days #30 tabs 02/16/24 Unknown Rx (Jardiance) spironolactone 25 mg tablet 25 mg PO LUNCH 90 days #90 tabs 06/29/24 Unknown Rx aspirin 81 mg tablet,delayed 81 mg PO QDAY #90 tabs 09/13/24 Unknown Rx release (Adult Aspirin Regimen) atorvastatin 10 mg tablet 10 mg PO QDAY #90 tabs 09/13/24 Unknown Rx furosemide 40 mg tablet 40 mg PO DAILY 10/25/24 Unknown History sacubitril 49 mg-valsartan 51 mg 1 tab PO BID #60 tabs 11/20/24 Unknown Rx tablet (Entresto) carvedilol 25 mg tablet 25 mg PO BID 30 days #180 tabs 12/11/24 Unknown Rx Allergy/AdvReac Type Severity Reaction Status Date / Time shellfish derived Allergy Mild swelling Verified 12/18/24 11:54 in throat Family History Father Melanoma Mother Ovarian cancer Surgical History History of dental surgery Social History household members: spouse Smoking Status: Never smoker alcohol intake: never substance use type: does not use what type of physical activity do you participate in: none Vital Signs Vital Signs Vital Signs: 12/18/24 13:51 12/18/24 15:00 12/18/24 15:03 Temperature 97.8 F Temperature Source Pulse Rate 58 L 50 L 59 L Pulse Strength Respiratory Rate 16 16 16 Respiratory Effort Respiratory Depth Respiratory Pattern Blood Pressure 146/82 H 158/86 H 144/87 H Blood Pressure Mean 103 110 106 Blood Pressure Source Blood Pressure Position Blood Pressure Location Pulse Ox 99 98 98 Oxygen Delivery Method Oxygen Flow Rate (L/min) 12/18/24 15:43 12/18/24 15:56 12/18/24 22:00 Temperature 98.2 F 97.7 F L Temperature Source Oral Oral Pulse Rate 65 60 61 Pulse Strength Respiratory Rate 18 16 Respiratory Effort Normal Respiratory Depth Respiratory Pattern Blood Pressure 162/61 H 117/69 Blood Pressure Mean 94 85 Blood Pressure Source Monitor Monitor Blood Pressure Position Semi-Fowlers Semi-Fowlers Blood Pressure Location Right Arm Right Arm Pulse Ox 100 96 Oxygen Delivery Method Nasal Cannula Nasal Cannula Room Air Oxygen Flow Rate (L/min) 2 2 12/18/24 22:00 12/19/24 05:17 12/19/24 05:18 Temperature 98.4 F Temperature Source Oral Pulse Rate 62 Pulse Strength Respiratory Rate 18 Respiratory Effort Normal Non-Labored Respiratory Depth Normal Respiratory Pattern Normal Blood Pressure 109/56 L Blood Pressure Mean 73 Blood Pressure Source Monitor Blood Pressure Position Semi-Fowlers Blood Pressure Location Left Arm Pulse Ox 96 Oxygen Delivery Method Room Air Room Air Room Air Oxygen Flow Rate (L/min) 12/19/24 09:02 12/19/24 09:52 12/19/24 10:00 Temperature 98.4 F Temperature Source Oral Pulse Rate 62 Pulse Strength Normal (2+) Respiratory Rate 15 Respiratory Effort Respiratory Depth Respiratory Pattern Blood Pressure 113/57 L Blood Pressure Mean 75 Blood Pressure Source Monitor Blood Pressure Position Semi-Fowlers Blood Pressure Location Left Arm Pulse Ox 92 Oxygen Delivery Method Room Air Room Air Oxygen Flow Rate (L/min) Weight Weight: 179 lb 1.6 oz Body Mass Index (BMI) 25.7 Physical Exam Narrative Exam to the right lower extremity shows shortening, external rotation, pain around the right hip with tenderness. No obvious bruises or skin break around the right hip. Bruises noticed around her olecranon bilaterally with no significant swelling and full range of motion. Distal neurovascular exam in the right lower extremity is intact. Bilateral pedal edema noticed. Lab / Micro Data 12/19/24 04:50 12/19/24 04:50 Labs: Laboratory Results - last 24 hr 12/18/24 14:15: WBC 6.2, RBC 3.82 L, Hgb 13.3, Hct 39.9 L, MCV 104.5 H, MCH 34.8 H, MCHC 33.3, RDW Std Deviation 50.2 H, RDW Coeff of Danilo 13.1, Plt Count 120 L, MPV 9.5, Immature Gran % (Auto) 0.600, Neut % (Auto) 64.2, Lymph % (Auto) 28.2, [place] % (Auto) 5.6, Eos % (Auto) 1.1, Baso % (Auto) 0.3, Absolute Neuts (auto) 4.0, Absolute Lymphs (auto) 1.75, Nucleated RBC % 0, Sodium 142, Potassium 4.2, Chloride 110 H, Carbon Dioxide 19.5 L, Anion Gap 12, BUN 25 H, Creatinine 1.05, Estim Creat Clear Calc 51.18, Est GFR (MDRD) Non-Af 69, BUN/Creatinine Ratio 23.4 H, Glucose 114 H, Calcium 8.7, Total Bilirubin 0.51, Direct Bilirubin 0.21, AST 17, ALT 7, Alkaline Phosphatase 44, NT pro BNP II 1126, Total Protein 6.0, Albumin 3.3 L, Globulin 2.7 12/18/24 16:22: PT 14.8, INR 1.1, APTT 30.4 12/18/24 16:40: Urine Color Yellow, Urine Clarity Clear, Urine pH 7.0, Ur Specific [place] 1.010, Urine Protein 15 H, Urine Glucose (UA) 1000 H, Urine Ketones 15 H, Urine Occult Blood 10 H, Urine Nitrite Negative, Urine Bilirubin Negative, Urine Urobilinogen Normal, Ur Leukocyte Esterase Negative, Urine RBC 0-5 SEEN, Urine WBC 0 SEEN, Ur Squamous Epith Cells 0 SEEN, Urine Bacteria 0 SEEN, Urine Mucus 0 SEEN 12/19/24 04:50: WBC 7.3, RBC 3.48 L, Hgb 12.1 L, Hct 35.8 L, MCV 102.9 H, MCH 34.8 H, MCHC 33.8, RDW Std Deviation 49.3 H, RDW Coeff of Danilo 13.2, Plt Count 127 L, MPV 10.1, Sodium 142, Potassium 3.8, Chloride 109 H, Carbon Dioxide 22.6, Anion Gap 11, BUN 24 H, Creatinine 1.04, Estim Creat Clear Calc 51.67, Est GFR (MDRD) Non-Af 69, BUN/Creatinine Ratio 23.2 H, Glucose 122 H, Calcium 8.4, Blood Type A NEGATIVE, Antibody Screen NEGATIVE 12/19/24 11:40: POC Glucose 117 H Imaging Radiology Impression Chest X-Ray 12/18/24 13:15 IMPRESSION: Cardiomegaly. Findings suggestive of scarring in both lungs. Reading Location: [id number] Hip/Pelvis X-Ray 12/18/24 13:15 IMPRESSION: There is a fracture through the right femoral neck with 0.9 cm impaction. Critical results were discussed with Dr. Alberto by Dr. Bello at the time of dictation. Reading Location: [facility] Assessment & Plan Assessment/Plan (1) Fracture of femoral neck, right, closed: QUALIFIERS: Encounter type: initial encounter Qualified Code(s): S72.001A - Fracture of unspecified part of neck of right femur, initial encounter for closed fracture PLAN: Plan I reviewed the x-rays of the pelvis and hip done in the ER yesterday. These showed right femoral neck fracture, transcervical, displaced. Discussed imaging findings in detail. Explained to him that patient has intracapsular femoral neck fracture which is displaced. Explained to patient that this is a surgical injury and will require surgical treatment. Hemiarthroplasty was recommended and discussed in detail. All risk benefits and alternatives were discussed. The risks include but are not limited to infection, bleeding, injury to nerves and vessels, sciatic nerve injury, foot drop, hematoma formation, need for further surgery, need for total hip replacement in future, periprosthetic fracture, cement embolism, DVT, pulm embolism, cardiopulmonary event, . Patient understands and agrees to proceed with surgery. All questions were answered with the patient and family. Charges/Coding Visit Charges Inpatient E&M: 36376 Init Hosp L3
--- NOTE | 2024-12-19 12:43 | NURSING ---
pt leaving unit via bed for scheduled procedure
[2024-12-19] MEDS: Lactated Ringers 1,000 ML 15 ML IV (13:06)
--- NOTE | 2024-12-19 13:18 | PCM.PRE.AN2 ---
ASA Classification* ASA Classification ASA Classification: 3 Assessment & Plan Anesthesia* Anesthesia Assessment Anesthesia Assessment: Discussed sedation and/or anesthesia options, risks, benefits, and alternatives with patient/parents/legal guardian/POA. Questions invited. The patient/parents/legal guardian/POA seems to understand and agrees to proceed with anesthesia plan. Reviewed the physical assessment, medical history, allergy history and patient home medications list prior to surgery/procedure/anesthetic and documented any changes. Performed airway and anesthesia risk assessments. Anesthesia Type Anesthesia Type: General History Source History Obtained from:: Patient and Chart Anesthesia Focused Assessment* Temperature: 98.4 F Pulse Rate: 62 Blood Pressure: 113/57 Respiratory Rate: 15 Pulse Ox: 92 Oxygen Delivery Method: Room Air Oxygen Flow Rate (L/min): 2 Airway Assessment Mouth opens: >3 cm Mallampati Score: I Teeth Condition: Caps/Crowns (Patient has 1 crown it is tight.) Neck Range of motion (ROM): Limited ROM (Somewhat Decreased) Labs Anesthesia Preop lab: CBC WBC 7.3 K/mm3 (4.4-11.0) 12/19/24 04:50 12/19/24 RBC 3.48 M/mm3 (4.6-6.2) L 12/19/24 04:50 12/19/24 Hgb 12.1 g/dL (13.0-16.5) L 12/19/24 04:50 12/19/24 Hct 35.8 % (40-54) L 12/19/24 04:50 12/19/24 Plt Count 127 K/mm3 (150-450) L 12/19/24 04:50 12/19/24 CHEMISTRY Potassium 3.8 mmol/L (3.3-5.1) 12/19/24 04:50 12/19/24 Sodium 142 mmol/L (133-145) 12/19/24 04:50 12/19/24 Magnesium 2.2 mg/dL (1.6-2.6) 11/14/23 18:47 11/14/23 Phosphorus 3.2 mg/dL (2.5-4.9) 11/12/23 15:45 11/12/23 BUN 24 mg/dL (4-19) H 12/19/24 04:50 12/19/24 Creatinine 1.04 mg/dL (0.70-1.20) 12/19/24 04:50 12/19/24 Glucose 122 mg/dL (70-99) H 12/19/24 04:50 12/19/24 POC Glucose 117 mg/dL (74-106) H 12/19/24 11:40 12/19/24 TSH 2.36 uIU/mL (0.358-3.74) 11/13/23 06:19 11/13/23 COAG PT 14.8 SECONDS (11.7-14.9) 12/18/24 16:22 12/18/24 Pre-Assessment Diagnosis/Proposed Procedure Planned Operative Procedure(s): Right hip hemiarthroplasty. Anesthesia History Anesthesia History - registered route associate: Anesthesia History - registered route associate Hx Hospitalization Any Problems With Anesthesia No 12/19/24 10:42 Cholinesterase deficiency No 12/19/24 10:42 You/Your Family Experience No 12/19/24 10:42 fever (hyperthermia) with Relationship Recent Exposure to Contagious No 12/19/24 10:42 Disease Does patient have nerve No 12/19/24 10:42 stimulator Patient instructed to have device shut off --Does patient have Pacemaker No 12/19/24 10:42 or ICD? When Was Last Pacemaker Check QUESTION #4 FULL TEXT: You/Your Family Experience fever (hyperthermia) with Anesthesia Last Oral Intake Last Oral intake: Last Oral Intake NPO since 00:01 12/19/24 10:42 Meds taken in AM with sips of No 12/19/24 10:42 water? Meds patient instructed to take am of surgery Any additional information?: Yes Meds taken in AM with sips of water?: No PONV PONV - registered route associate: PONV - registered route associate Female HX of Motion Sickness HX of N/V After Surgery Non-Smoker Duration of Surgery greater than 60 minutes Number of Risk Factors PONV Score Height & Weight Height & Weight: Anesthesia: Height & Weight Height 5 ft 10 in 12/19/24 10:42 Weight: 81.238 kg 12/19/24 10:42 Body Mass Index (BMI) 25.7 12/19/24 10:42 Respiratory Assessment Respiratory Assessment - registered route associate: Respiratory Tract Infection Hx - registered route associate Hx Respiratory Tract Infection No 12/19/24 10:42 STOP Sleep Apnea STOP Sleep Apnea - registered route associate: STOP Sleep Apnea - registered route associate Hx Hypertension No 12/18/24 15:28 Hx Sleep Apnea No 12/18/24 15:28 CPAP BIPAP Do you snore loudly (louder No 12/18/24 15:28 than talking or can be heard Do you often feel tired/ Yes 12/18/24 15:28 fatigued/ sleepy during daytime? Has anyone observed you stop No 12/18/24 15:28 breathing during sleep? STOP Results Negative 12/18/24 15:28 QUESTION #5 FULL TEXT : Do you snore loudly (louder than talking or can be heard through closed doors)? Tobacco Use History Tobacco Use History - registered route associate: Tobacco Use History - registered route associate Tobacco Use Smoking Status Never smoker 12/18/24 15:28 Hx Tobacco Use No 12/18/24 15:28 Years Smoking Packs Smoked per Day Smoking Cessation Date was within the last 15 years Hx Smoking Cessation Date Hx Smoking Cessation Counseling Hematologic Medial History Hematologic Hx - registered route associate: Hematologic Medical Hx - back tender paper machine Hx of Blood Transfusion No 12/18/24 15:28 Hx of Transfusion in last 3 No 12/18/24 15:28 Months Date of Last Transfusion (if within last 3 months) Ever experience any problems No 12/18/24 15:28 with transfusion(s)? Specify any problems Hx of Preganancy in last 3 N/A 12/18/24 15:28 Months Nurse Filling Out Transfusion FSTEINER 12/18/24 15:28 & Questions: Date: 12/18/24 12/18/24 15:28 Time: 15:31 12/18/24 15:28 Patient unable to answer at this time (ie. confused, unrespo /Reproduction History /Reproductive History - registered route associate: /Reproductive Hx- registered route associate Hx Now No 12/19/24 10:42 Gestational Age (in weeks): EDC: Hx Hx Para Hx Section SAB Active Medications Active Medications: Current Medications Generic Name Dose Route Start Last Admin Trade Name Freq PRN Reason Stop Dose Admin Acetaminophen 1,000 mg 12/18/24 17:00 12/19/24 05:20 Acetaminophen 500 Mg Tablet PO Not Given Q8 NURIS Aspirin 81 mg 12/20/24 08:00 Aspirin E.C. 81 Mg Tablet PO BREAKFAST [facility] Atorvastatin Calcium 10 mg 12/18/24 22:00 12/18/24 21:58 Atorvastatin Calcium 10 Mg Tablet PO 10 mg QHS [facility] Administration Carvedilol 25 mg 12/18/24 17:00 12/19/24 09:04 Carvedilol 25 Mg Tablet PO Not Given BIDCM [facility] Protocol Empagliflozin 10 mg 12/20/24 10:00 Empagliflozin 10 Mg Tablet PO DAILY [facility] Furosemide 40 mg 12/20/24 10:00 Furosemide 40 Mg Tablet PO DAILY [facility] Protocol Hydromorphone HCl 0.5 mg 12/18/24 16:06 Hydromorphone 0.5 Mg/0.5 Ml Syringe IV Q4H PRN PRN Pain Score 6-10 Sodium Chloride 250 mls @ 15 mls/hr 12/18/24 15:40 IV .[id number] PRN Saline Flush Sodium Chloride 250 mls @ 15 mls/hr 12/18/24 15:40 IV .[id number] PRN Additional IVPB Infusion Lactated Ringer's 1,000 mls @ 15 mls/hr 12/19/24 13:15 12/19/24 13:06 IV 15 mls/hr .Q48H NURIS Administration Melatonin 3 mg 12/18/24 16:06 Melatonin 3 Mg Tablet PO QHS PRN PRN INSOMNIA Ondansetron HCl 4 mg 12/18/24 16:06 Ondansetron 4 Mg/2 Ml Vial IV Q8H PRN PRN NAUSEA/VOMITING Oxycodone HCl 5 mg 12/18/24 16:06 Oxycodone 5 Mg Tablet PO Q4H PRN PRN Pain Score 4-10 Sacubitril/Valsartan 1 each 12/20/24 10:00 Sacubitril/Valsartan 49-51 Mg Tablet PO BID NURIS Senna 1 tablet 12/18/24 22:00 12/19/24 07:09 Senna Tablet PO Not Given BID [facility] Sodium Chloride 10 - 40 ml 12/18/24 15:40 0.9% Saline Lock 10 Ml Syringe IV UD PRN SALINE FLUSH Spironolactone 25 mg 12/20/24 12:00 Spironolactone 25 Mg Tablet PO LUNCH [facility] Protocol [facility] Medical History (Updated 12/19/24 @ 13:[address] Bernardino Brian MD) Left humeral fracture Diabetes Difficulty swallowing Non-smoker Irregular heart beat Cutaneous horn Congestive heart failure (CHF) Bradycardia Driving safety issue Complete left bundle branch block Cardiomyopathy Bilateral lower extremity edema Dyspnea Carotid arterial disease Carotid artery bruit Arrhythmia Venous insufficiency of both lower extremities Metastasis to bone Prostate cancer Abnormal CT of the abdomen Bone cancer Pathologic fracture of humerus Nondisplaced transverse fracture of shaft of humerus, left arm, initial encounter for closed fracture History of diabetes mellitus Elevated PSA BPH (benign prostatic hyperplasia) Weight loss, non-intentional Flu vaccine need Hypertension Change in skin mole Type 2 diabetes mellitus Bone fracture Home Medications ?Medication ?Instructions ?Recorded ?Last Taken ?Type enzalutamide 80 mg tablet (Xtandi) 160 mg PO QHS chemo 03/24/23 12/18/24 History empagliflozin 10 mg tablet 10 mg PO DAILY 30 days #30 tabs 02/16/24 Unknown Rx (Jardiance) spironolactone 25 mg tablet 25 mg PO LUNCH 90 days #90 tabs 06/29/24 Unknown Rx aspirin 81 mg tablet,delayed 81 mg PO QDAY #90 tabs 09/13/24 Unknown Rx release (Adult Aspirin Regimen) atorvastatin 10 mg tablet 10 mg PO QDAY #90 tabs 09/13/24 Unknown Rx furosemide 40 mg tablet 40 mg PO DAILY 10/25/24 Unknown History sacubitril 49 mg-valsartan 51 mg 1 tab PO BID #60 tabs 11/20/24 Unknown Rx tablet (Entresto) carvedilol 25 mg tablet 25 mg PO BID 30 days #180 tabs 12/11/24 Unknown Rx Allergy/AdvReac Type Severity Reaction Status Date / Time shellfish derived Allergy Mild swelling Verified 12/19/24 13:02 in throat Family History Father Melanoma Mother Ovarian cancer Surgical History History of dental surgery Social History household members: spouse Smoking Status: Never smoker alcohol intake: never substance use type: does not use what type of physical activity do you participate in: none Review of Systems (Anesthesia) ROS Narrative System reviewed and no additional complaints, except as documented.
--- NOTE | 2024-12-19 15:03 | CHAPLAIN ---
Type of Pastoral Visit ___ Initial Visit ___ Follow-up Visit ___ On-call Visit ___ General Patient Visit ___ Spiritual Assessment ___ Family Conference ___ Bereavement ___ Rapid Response ___ Code Blue ___ Other (describe below) Pastoral Care Referral From ___ Patient ___ Family ___ Nurse ___ Physician ___ Cyanide Case Hardener ___ Vice President [employer] Sales ___ Other (describe below) Sacrament/Intervention ___ Active listening ___ Anointing ___ Yazidism ___ Bereavement ___ Communion ___ Christin exploration ___ ___ Life review ___ Prayer ___ Reconciliation ___ Sacrament of Sick ___ Supportive presence ___ Wedding ___ Other (describe below) Pastoral Comments patient had been taken to surgery right before attempted visit
[2024-12-19] MEDS: JPS (Morphine 10mg/ml) OPERA.SITE (15:50)
--- NOTE | 2024-12-19 15:50 | RAD_ITS ---
PROCEDURE: HIP 1 VIEW WITH PELVIS 12/19/2024 REASON FOR EXAM: HIP HEMIARTHROPLASTY TECHNIQUE: Single intraoperative view of the right hip COMPARISON: Preoperative study of 12/18/2024 RAD/Hip 1 view with Pelvis IMPRESSION: Interval placement a right proximal femoral endoprosthesis. No complication is seen on the solitary view obtained. Reading Location: [place] [id number]
--- NOTE | 2024-12-19 16:37 | PCM.POST.ANE ---
Anesthesia: Postop Eval I Current Vital Signs Temperature: 98.1 F Pulse Rate: 74 Blood Pressure: 146/95 Respiratory Rate: 16 Pulse Ox: 99 Oxygen Delivery Method: Simple Mask Oxygen Flow Rate (L/min): 6 Assessment Airway patent: Yes Spontaneous unlabored respirations: Yes Mental status: Asleep nausea: No Vomiting: No Anesthesia Complication: No Fluid Hydration Crystalloid volume administer (ml): 900 Total IV fluid infused: 900 Progress Note Anesthesia document: Postop Eval 1 completed: Yes
--- NOTE | 2024-12-19 16:42 | OP.PCM_ITS ---
Procedures Musculoskeletal 20xxx-29xxx: Other Procedure See Report Operative Report (Standard) Operative Information Date of Procedure: 12/19/24 Pre-Operative Diagnosis: Right femoral neck fracture, transcervical, displaced Post-Operative Diagnosis: Same Surgery/Procedure Performed: Right hip cemented hemiarthroplasty chemical equipment controller: Yes Wooden Barrel Mechanic: Linda Bernstein Tasks completed by certified surgical tech/first assistant: Closing, Removing tissue, Implanting device, Hemostasis: Electrocautery and Retracting Type of Anesthesia: General RN Documented Start/Stop Times: Operation Date: 12/19/24 13:30 Case Time Into Pre-Op 12/19/24 13:02 Anesthesia Start 12/19/24 13:50 Into Room 12/19/24 13:50 Procedure Start 12/19/24 14:27 Procedure End 12/19/24 16:24 Anesthesia End 12/19/24 16:31 Out of Room 12/19/24 16:31 Into Recovery 12/19/24 16:35 Procedure Start Time: 14:27 Procedure Stop Time: 16:24 Select all DRAINS/GRAFTS/IMPLANTS that apply: Prosthetic device Prosthetic device details: Frances Accolade C cemented hip hemiarthroplasty Estimated Blood Loss: 50 cc Specimen collected: No Description of surgery: PRINCIPAL PRE-OP DIAGNOSIS: Right displaced FEMORAL NECK FRACTURE PRINCIPAL POST-OP DIAG: Same PRINCIPAL PROCEDURE: Right cemented HIP HEMIARTHROPLASTY CPT 11565 Surgeon: Bj Hamilton MD ANESTHESIA: General Anesthesia Record E.B.L. 50 SPECIMENS: None COMPLICATIONS: None DISPOSITION: PACU then potentially floor Implants: Purlear Accolade C cemented femoral stem, bipolar head OPERATIVE REPORT: INDICATION FOR SURGERY: Patient sustained a ground-level fall on the right hip with a subsequent displaced right femoral neck fracture. After discussion with the patient as well as family risk, patient elected for operative intervention with a hemiarthroplasty. Risks were discussed with the patient family including but not limited to blood loss, infection, nerve damage, instability, need for revision surgery, intraoperative fracture, cardiac arrest, . Patient signed consent for surgery. Patient was evaluated preoperatively by anesthesia who deemed the patient medically appropriate for the operating room. PROCEDURE: The patient was brought to the operating room and initial timeout was performed prior to induction of anesthesia. After confirming the patient's side, patient name with 2 unique identifiers as well as surgical plan, the patient was sedated per the anesthesiologist and intubated. Preoperative IV antibiotic was given. Patient was then placed in left lateral decubitus position with a beanbag and all bony prominences well-padded. The right lower extremity was sterilely prepped and draped in standard fashion. A second confirmatory timeout was completed which the patient's name and identification with 2 unique identifiers as well as the appropriate side and procedure was confirmed by everyone in the operating room. A standard posterior approach to the hip was performed with sharp dissection through the IT band and fascia. The piriformis tendon and some of the short external rotators were released off of the right hip and tagged. Capsulotomy was performed and tagging stitch was also placed in the capsule. The femoral neck was then cut 1 cm proximal to the lesser trochanter. The femoral head was then removed. The head measured a 54 and a trial of 54 and 55 mm were used. 55 mm head appeared to have a more stable fit. Next the femoral canal was prepped, the canal was broached up to a size 4 stem which had stable fixation. The canal was then prepped and a size 4 stem was cemented into the femur. After the cement was hard, a 26 shell standard offset, 0 neck was trialed which had appropriate leg length, range of motion, and stability. Trial was then removed the acetabulum was irrigated to ensure there was no cement in the acetabulum. A 26 shell with a 55 head standard offset, 0 neck was then placed and hip was reduced. Stability was then confirmed as well as leg length and range of motion which were all adequate and appropriate. The wound was then again irrigated with Pulsavac saline. Betadine solution was then placed in the wound for 5 minutes & washed off. Irrisept solution was then placed in the wound for 1 minutes & washed off. The short external rotators were repaired as well as the capsule through 3 drill holes in the greater trochanter. Pain cocktail was then injected into the local soft tissues. The wound was then closed in layered fashion with interrupted0 Vicryl, #2 strata fix for deep fascia, 2-0 Vicryl for subcutaneous. And the skin was closed with dutch. Wound was covered with mepilex dressing. The patient was awoken from anesthesia which they tolerated well. Patient was then taken to the PACU in stable fashion. Patient will be weightbearing as tolerated with posterior hip precautions of the right lower extremity. They will complete a course of postoperative DVT prophylaxis. We will see them back in clinic in 2 weeks for x-rays, wound check. Surgical Findings: See operative note Complications Complications: No
[2024-12-19] MEDS: ENZALUTAMIDE 80 MG TABLET 160 MG PO (17:45)
--- NOTE | 2024-12-19 20:24 | NURSING ---
if case management or social work would like to talk to a family member, please call stewart (patient's son) at [phone]
--- NOTE | 2024-12-19 20:34 | POSTOPAN2_ITS ---
Anesthesia Postop Eval I Sum Postop Eval Completion status Anesthesia document: Postop Eval 1 completed: Yes Anesthesia Postop Eval I Summary Anesthesia Postop Eval I Summary: Anesthesia Postop Eval I: Assessment Summary Airway patent Yes 12/19/24 16:38 QUARRYING MANAGER.[email or web address] Spontaneous unlabored Yes 12/19/24 16:38 QUARRYING MANAGER.[place] respirations Mental status Asleep 12/19/24 16:38 QUARRYING MANAGER.[place] nausea No 12/19/24 16:38 QUARRYING MANAGER.[place] Vomiting No 12/19/24 16:38 QUARRYING MANAGERTONY Anesthesia Postop Eval I: Fluid Summary Crystalloid volume administer 900 12/19/24 16:38 QUARRYING MANAGER.[place] (ml) Colloids volume administered ( ml) Blood Product volume administered (ml) Total IV fluid infused 900 12/19/24 16:38 QUARRYING MANAGER.[place] Anesthesia Postop Eval I: Summary Notes Anesthesia Complication No 12/19/24 16:38 QUARRYING MANAGERTONY Anesthesia Complication Comment: Post-operative progress note Anesthesia: Postop Eval II Evaluation Mental status: Awake and Calm Pain Level: 2 nausea: No Vomiting: No Complications Anesthesia Complication: No
--- NOTE | 2024-12-19 20:34 | PCM.POSTANE2 ---
Anesthesia Postop Eval I Sum Postop Eval Completion status Anesthesia document: Postop Eval 1 completed: Yes Anesthesia Postop Eval I Summary Anesthesia Postop Eval I Summary: Anesthesia Postop Eval I: Assessment Summary Airway patent Yes 12/19/24 16:38 BUSH AND VINE FRUIT CROP FARMER.[email or web address] Spontaneous unlabored Yes 12/19/24 16:38 B[employer] FRUIT CROP FARMER.[place] respirations Mental status Asleep 12/19/24 16:38 B[employer] FRUIT CROP FARMER.[place] nausea No 12/19/24 16:38 BUSH [employer]INE FRUIT CROP FARMER.[place] Vomiting No 12/19/24 16:38 BUSH AND VINE FRUIT CROP FARMERTONY Anesthesia Postop Eval I: Fluid Summary Crystalloid volume administer 900 12/19/24 16:38 B[employer] FR[employer] CROP FARMER.[place] (ml) Colloids volume administered ( ml) Blood Product volume administered (ml) Total IV fluid infused 900 12/19/24 16:38 BUSH AND VINE FRUIT CROP FARMER.[place] Anesthesia Postop Eval I: Summary Notes Anesthesia Complication No 12/19/24 16:38 BUSH AND VINE FRUIT CROP FARMERTONY Anesthesia Complication Comment: Post-operative progress note Anesthesia: Postop Eval II Evaluation Mental status: Awake and Calm Pain Level: 2 nausea: No Vomiting: No Complications Anesthesia Complication: No
[2024-12-19] MEDS: Cefazolin 2 GM in 0.9% Normal Saline (100mL Bag) 100 ML IV (21:51)
[2024-12-19] MEDS: 0.9% Normal Saline (250mL Bag) 250 ML 15 ML IV (21:59)
[2024-12-19] MEDS: Senna Tablet 1 TABLET PO (22:00)
[2024-12-19] MEDS: APIXABAN 2.5 MG TABLET (WCH) PO (22:00)
[2024-12-20] VITALS (7 sets, daily range): BP systolic 91–131; BP diastolic 44–59; PULSE 61–86; RESP 15–16; TEMP 36.3–36.8; O2SAT 94–99
[2024-12-20] MEDS: 0.9% Saline Lock 10 ML Syringe IV (06:20)
[2024-12-20] MEDS: Cefazolin 2 GM in 0.9% Normal Saline (100mL Bag) 100 ML IV (06:21)
[2024-12-20 06:29] LABS: Hematocrit 33.4 % (40-54); Hemoglobin 11.3 g/dL (13.0-16.5); Mean Corp Hgb Conc 33.8 g/dL (32-36); Mean Corpuscular Volume 103.4 fL (80-94); Mean Platelet Vol. 9.4 fl (6.2-12.0); Platelet Count 117 K/mm3 (150-450); RBC Distribution Width CV 13.2 % (11.6-14.6); RBC Distribution Width SD 50.2 fl (35.1-43.9); Red Blood Count 3.23 M/mm3 (4.6-6.2); White Blood Count 10.2 K/mm3 (4.4-11.0)
[2024-12-20 07:04] LABS: Anion Gap 11 (5-15); BUN 34 mg/dL (4-19); BUN/Creat Ratio 22.6 RATIO (10-20); Calcium,Total 8.4 mg/dL (7.6-11.0); Carbon Dioxide 23.9 mmol/L (21.0-32.0); Chloride 108 mmol/L (98-108); Estimated Creatinine Clearance 35.59 ml/min (50-250); Glucose 138 mg/dL (70-99); Potassium 4.7 mmol/L (3.3-5.1)
[2024-12-20] MEDS: Aspirin E.C. 81 MG Tablet PO (07:51)
[2024-12-20] MEDS: APIXABAN 2.5 MG TABLET (WCH) PO ×2 (07:52→21:32)
--- NOTE | 2024-12-20 13:40 | PN.HOSP_ITS ---
Reason for Visit Chief Complaint: Fall with right hip pain Subjective Subjective Patient states his right hip pain is minimal after surgery. Would like to go to acute rehab at discharge we did explain the process with regards to his insurance. No current issues. Objective Data Objective Data Vital Signs: Vital Signs Temp Pulse Resp BP Pulse Ox O2 Del Method O2 Flow Rate 97.4 F L 61 15 103/44 L 97 Room Air 2 12/20/24 07:38 12/20/24 07:38 12/20/24 07:38 12/20/24 07:38 12/20/24 07:38 12/20/24 07:38 12/19/24 21:40 Oxygen Flow Rate (L/min) 2 Oxygen Delivery Method Room Air Weight: 81.238 kg Body Mass Index (BMI) 25.7 Intake & Output: Intake and Output for Last 24 Hours 12/18/24 12/19/24 12/20/24 23:59 23:59 23:59 Intake Total 258 / 258 356.5 / 356.5 Output Total 250 / 650 1050 / 1350 450 / 450 Balance -250 / -650 -792 / -1092 -93.5 / -93.5 Lab / Micro Data 12/20/24 06:23 12/20/24 06:23 Labs: Laboratory Results - last 24 hr 12/20/24 06:23: WBC 10.2, RBC 3.23 L, Hgb 11.3 L, Hct 33.4 L, MCV 103.4 H, MCH 35.0 H, MCHC 33.8, RDW Std Deviation 50.2 H, RDW Coeff of Danilo 13.2, Plt Count 117 L, MPV 9.4, Sodium 143, Potassium 4.7, Chloride 108, Carbon Dioxide 23.9, Anion Gap 11, BUN 34 H, Creatinine 1.51 H, Estim Creat Clear Calc 35.59 L, Est GFR (MDRD) Non-Af 44 L, BUN/Creatinine Ratio 22.6 H, Glucose 138 H, Calcium 8.4 Radiography Diagnostic Testing: Radiology Impression Hip/Pelvis X-Ray 12/19/24 15:50 IMPRESSION: Interval placement a right proximal femoral endoprosthesis. No complication is seen on the solitary view obtained. Reading Location: [id number] Physical Exam Const alert, oriented x3, no apparent distress, average body habitus and well nourished Constitutional Narrative: Elderly, white male, sitting up in a chair at the bedside, appears comfortable, nontoxic General Appearance: cooperative and comfortable HEENT normocephalic, head/scalp atraumatic and moist oral mucous membranes HEENT Narrative: Moderate hearing loss, dentition is fair, Mallampati is 2, no thrush Resp normal respiratory effort, normal air movement, no retractions, no use of accessory muscles and clear to auscultation bilaterally Auscultation: Negative for rales, rhonchi or wheezes Cardio regular rate, regular rhythm, S1 normal heart sound, S2 normal heart sound, no murmurs, no rub, no gallops and no clicks GI normal to inspection, nondistended, normoactive bowel sounds, soft to palpation and non-tender Extremity Extremity Narrative: Trace lower extremity edema, no cyanosis or clubbing, pedal and radial pulses are 2+ bilaterally, right lower extremity within normal limits and postop dressing in place and is clean dry and intact Neuro moves all extremities and no focal motor deficits Speech: speech normal Psych mental status grossly normal and affect normal Psych Narrative: Very pleasant, eye contact is good and patient interacts appropriately Assessment & Plan Assessment/Plan (1) Fracture of femoral neck, right, closed: QUALIFIERS: Encounter type: initial encounter Qualified Code(s): S72.001A - Fracture of unspecified part of neck of right femur, initial encounter for closed fracture PLAN: Plan Right femoral neck fracture-suspect pathological fracture with metastatic prostate cancer - Restart aspirin -Postop day 1 status post right hip cemented hemiarthroplasty with Dr. Hamilton - Continue scheduled Tylenol - Continue as needed oxycodone -DVT prophylaxis per primary with Eliquis 2.5 mg p.o. twice daily - PT/OT following and recommending rehab at discharge - Social work/case management following and working on placement CODY secondary to ATN - Patient was noted to get multiple doses of phenylephrine in the OR and was hypotensive -will hold home antihypertensives today as well as diuretics - Avoid aggressive fluids due to history of heart failure - Try to maintain MAP greater than 65 and recheck lab in a.m. Mild anemia - Hemoglobin 11.3 with about 1 g drop postoperatively - Likely related to intraoperative blood loss and possibly dilutional - Continue to monitor Thrombocytopenia - Platelet count 117,000 - Likely consumptive related to fracture and postop - Can continue to monitor Chronic HFrEF - Most recent echocardiogram from 03/12/2024 shows an EF of 35% -Continue Jardiance but continue to hold Lasix, Aldactone, Entresto, and beta- keisha - Monitor closely in the perioperative period for volume overload Essential hypertension/hyperlipidemia -Hold home beta-keisha - Continue home statin - Continue home aspirin Chronic LBBB - last left heart catheterization 11/23/2023 demonstrating 60% smooth stenosis in the mid RCA and mild luminal irregularities in the distal RCA, circumflex artery, LAD - monitor post-op 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 Mcgee - bone supportive therapy with zoledronic acid every 12 weeks - monitor for post-op retention DM-2 -Continue Jardiance - Last a1c 5.7 on 10/25/24 DVT Prophylaxis - SCD's -Eliquis 2.5 mg p.o. twice daily Code Status -FULL CODE Charges/Coding Visit Charges Inpatient E&M: 14466 Subs Hosp L2
--- NOTE | 2024-12-20 14:05 | PN.ORTHO_ITS ---
Subjective Subjective Postop day 1 status post right hip cemented hemiarthroplasty. Saw patient in 324 today. Patient was sitting on recliner. Says there is no pain. He was able to walk with physical therapy in the hallway. Uses a walker. Objective Data Objective Data Vital Signs: Vital Signs Temp Pulse Resp BP Pulse Ox O2 Del Method O2 Flow Rate 97.4 F L 61 15 103/44 L 97 Room Air 2 12/20/24 07:38 12/20/24 07:38 12/20/24 07:38 12/20/24 07:38 12/20/24 07:38 12/20/24 07:38 12/19/24 21:40 Oxygen Flow Rate (L/min) 2 Oxygen Delivery Method Room Air Weight: 179 lb 1.6 oz Body Mass Index (BMI) 25.7 Intake & Output: Intake and Output for Last 24 Hours 12/18/24 12/19/24 12/20/24 23:59 23:59 23:59 Intake Total 258 / 258 356.5 / 356.5 Output Total 250 / 650 1050 / 1350 450 / 450 Balance -250 / -650 -792 / -1092 -93.5 / -93.5 Lab / Micro Data 12/20/24 06:23 12/20/24 06:23 Labs: Laboratory Results - last 24 hr 12/20/24 06:23: WBC 10.2, RBC 3.23 L, Hgb 11.3 L, Hct 33.4 L, MCV 103.4 H, MCH 35.0 H, MCHC 33.8, RDW Std Deviation 50.2 H, RDW Coeff of Danilo 13.2, Plt Count 117 L, MPV 9.4, Sodium 143, Potassium 4.7, Chloride 108, Carbon Dioxide 23.9, Anion Gap 11, BUN 34 H, Creatinine 1.51 H, Estim Creat Clear Calc 35.59 L, Est GFR (MDRD) Non-Af 44 L, BUN/Creatinine Ratio 22.6 H, Glucose 138 H, Calcium 8.4 Radiography Diagnostic Testing: Radiology Impression Hip/Pelvis X-Ray 12/19/24 15:50 IMPRESSION: Interval placement a right proximal femoral endoprosthesis. No complication is seen on the solitary view obtained. Reading Location: [facility] Physical Exam Narrative Dressing?CDI. Distal neurovascular exam is intact. Assessment & Plan Assessment/Plan (1) Status post hemiarthroplasty of right hip: PLAN: Plan Postop day 1 status post right hip hemiarthroplasty. Pain well-controlled. Was able to walk with PT. DVT chemoprophylaxis with Eliquis. Weightbearing as tolerated. Posterior hip precautions. Follow-up in clinic in 2 weeks for staple removal.
--- NOTE | 2024-12-20 14:23 | CHAPLAIN ---
Type of Pastoral Visit _x__ Initial Visit ___ Follow-up Visit ___ On-call Visit ___ General Patient Visit ___ Spiritual Assessment ___ Family Conference ___ Bereavement ___ Rapid Response ___ Code Blue ___ Other (describe below) Pastoral Care Referral From _x__ Patient ___ Family ___ Nurse ___ Physician ___ Concrete Wall Grinder Operator ___ Marine Pipefitter Helper ___ Other (describe below) Sacrament/Intervention _x__ Active listening ___ Anointing ___ Pentecostal ___ Bereavement ___ Communion ___ Christin exploration ___ ___ Life review ___ Prayer ___ Reconciliation ___ Sacrament of Sick _x__ Supportive presence ___ Wedding ___ Other (describe below) Pastoral Comments patient, spouse, and two sons are together in the room; introduction of self and role given to all; patient gives description of his day and surgery experience; pt admits to some confusion of yesterday but feeling like he is regaining sense of self; family members also offered support but they are mostly quiet allowing pt to answer questions for himself; no other needs identified; family acknowledges that they are waiting for a plan of what is coming next for pt
[2024-12-20] MEDS: ENZALUTAMIDE 80 MG TABLET 160 MG PO (15:39)
--- NOTE | 2024-12-20 16:07 | CASEMGMT ---
Social Work- SW met with pt, pt , and pt son to discuss discharge plans. Pt reports that he would like to go home, but pt reports that she cannot take care of him if he needs assistance. Pt son reports that his dtr works at [facility]; pt agreeable for referral there. Pt reports that he has 4-5 steps total to get into home that he has to be able to complete. Pt reports that he will need to be able to toilet as well. SW completed referral to [facility] via [facility]. SW remains available to follow. NORTH Maravilla
[2024-12-20] MEDS: Senna Tablet 1 TABLET PO (21:32)
[2024-12-21 01:21] VITALS: BP 95/52; PULSE 86; RESP 16; TEMP 36.4; O2SAT 94
[2024-12-21 03:12] VITALS: BP 111/47
[2024-12-21 05:15] VITALS: BP 125/60; PULSE 77; RESP 16; TEMP 36.8; O2SAT 97
[2024-12-21 06:19] LABS: Hematocrit 30.8 % (40-54); Hemoglobin 10.3 g/dL (13.0-16.5); Mean Corp Hgb Conc 33.4 g/dL (32-36); Mean Corpuscular Volume 104.8 fL (80-94); Mean Platelet Vol. 9.6 fl (6.2-12.0); Platelet Count 109 K/mm3 (150-450); RBC Distribution Width CV 13.0 % (11.6-14.6); RBC Distribution Width SD 50.3 fl (35.1-43.9); Red Blood Count 2.94 M/mm3 (4.6-6.2); White Blood Count 9.2 K/mm3 (4.4-11.0)
[2024-12-21 06:50] LABS: Anion Gap 11 (5-15); BUN 49 mg/dL (4-19); BUN/Creat Ratio 32.2 RATIO (10-20); Calcium,Total 8.4 mg/dL (7.6-11.0); Carbon Dioxide 22.8 mmol/L (21.0-32.0); Chloride 106 mmol/L (98-108); Estimated Creatinine Clearance 35.12 ml/min (50-250); Glucose 115 mg/dL (70-99); Potassium 4.0 mmol/L (3.3-5.1)
[2024-12-21 06:54] LABS: Scan Indicated on CBC? Y/N NO
--- NOTE | 2024-12-21 08:23 | PN.HOSP_ITS ---
Reason for Visit Chief Complaint: Fall with right hip pain Objective Data Objective Data Vital Signs: Vital Signs Temp Pulse Resp BP Pulse Ox O2 Del Method O2 Flow Rate 98.3 F 77 16 125/60 H 97 Room Air 2 12/21/24 05:15 12/21/24 05:15 12/21/24 05:15 12/21/24 05:15 12/21/24 05:15 12/21/24 05:15 12/19/24 21:40 Oxygen Flow Rate (L/min) 2 Oxygen Delivery Method Room Air Weight: 81.238 kg Body Mass Index (BMI) 25.7 Intake & Output: Intake and Output for Last 24 Hours 12/19/24 12/20/24 12/21/24 23:59 23:59 23:59 Intake Total 258 / 258 356.5 / 506.5 350 / 350 Output Total 1050 / 1350 450 / 450 Balance -792 / -1092 -93.5 / 56.5 350 / 350 Lab / Micro Data 12/21/24 06:04 12/21/24 06:04 Labs: Laboratory Results - last 24 hr 12/21/24 06:04: WBC 9.2, RBC 2.94 L, Hgb 10.3 L, Hct 30.8 L, MCV 104.8 H, MCH 35.0 H, MCHC 33.4, RDW Std Deviation 50.3 H, RDW Coeff of Danilo 13.0, Plt Count 109 L, MPV 9.6, Sodium 140, Potassium 4.0, Chloride 106, Carbon Dioxide 22.8, Anion Gap 11, BUN 49 H, Creatinine 1.53 H, Estim Creat Clear Calc 35.12 L, Est GFR (MDRD) Non-Af 44 L, BUN/Creatinine Ratio 32.2 H, Glucose 115 H, Calcium 8.4 Physical Exam Const alert, oriented x3, no apparent distress, average body habitus and well nourished Constitutional Narrative: Elderly, white male, sitting up in a chair at the bedside, appears comfortable, nontoxic General Appearance: cooperative and comfortable HEENT normocephalic, head/scalp atraumatic, hearing grossly normal bilaterally, nasal mucous membranes and turbinates normal and moist oral mucous membranes Eyes PERRL, EOMs intact bilaterally and conjunctivae normal Neck full ROM Chest inspection of chest normal Resp normal respiratory effort, normal air movement, no retractions, no use of accessory muscles and clear to auscultation bilaterally Auscultation: Negative for rales, rhonchi or wheezes Cardio regular rate, regular rhythm, S1 normal heart sound, S2 normal heart sound, no murmurs, no rub, no gallops, no clicks and peripheral pulses 2+ throughout GI normal to inspection, nondistended, normoactive bowel sounds, soft to palpation, non-tender and non-distended Back/Spine normal ROM Extremity Extremity Narrative: Trace lower extremity edema, no cyanosis or clubbing, pedal and radial pulses are 2+ bilaterally, right lower extremity within normal limits and postop dressing in place and is clean dry and intact Skin no rashes or lesions noted Neuro oriented x3, moves all extremities and no focal motor deficits Neuro Narrative: Unable to move right lower extremity moves all other extremities without difficulty Speech: speech normal Psych mental status grossly normal and affect normal Psych Narrative: Very pleasant, eye contact is good and patient interacts appropriately Assessment & Plan Assessment/Plan (1) Fracture of femoral neck, right, closed: QUALIFIERS: Encounter type: initial encounter Qualified Code(s): S72.001A - Fracture of unspecified part of neck of right femur, initial encounter for closed fracture PLAN: Plan Right femoral neck fracture-suspect pathological fracture with metastatic prostate cancer - Continue aspirin - Postop day 2 status post right hip cemented hemiarthroplasty with Dr. Hamilton - Continue scheduled Tylenol - Continue as needed oxycodone - continue DVT prophylaxis per primary with Eliquis 2.5 mg p.o. twice daily - PT/OT following - Social work/case management following and working on placement -[facility] once approved by insurance CODY secondary to ATN - Patient was noted to get multiple doses of phenylephrine in the OR and was hypotensive - continue to hold home antihypertensives today as well as diuretics - Avoid aggressive fluids due to history of heart failure - Try to maintain MAP greater than 65 and recheck lab in a.m. - renal function is stable but still elevated suspect should start trending down with the next 24 hours Mild anemia -Hemoglobin relatively stable -Repeat CBC in a.m. - Likely related to intraoperative blood loss and possibly dilutional from intraoperative volume expansion Thrombocytopenia - Platelet count 109,000 - Likely consumptive related to fracture and postop - continue to monitor Chronic HFrEF - Most recent echocardiogram from 03/12/2024 shows an EF of 35% -Continue Jardiance but continue to hold Lasix, Aldactone, Entresto, and beta- keisha - Monitor closely in the perioperative period for volume overload Essential hypertension/hyperlipidemia - Hold home beta-keisha/Lasix/Aldactone/Entresto - Continue home statin - Continue home aspirin Chronic LBBB - last left heart catheterization 11/23/2023 demonstrating 60% smooth stenosis in the mid RCA and mild luminal irregularities in the distal RCA, circumflex artery, LAD - monitor post-op 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 Mcgee - bone supportive therapy with zoledronic acid every 12 weeks - monitor for post-op retention DM-2 -Continue Jardiance - Last a1c 5.7 on 10/25/24 - Fasting blood sugar 115 DVT Prophylaxis - SCD's -Eliquis 2.5 mg p.o. twice daily Code Status -FULL CODE Charges/Coding Visit Charges Inpatient E&M: 35103 Subs Hosp L2
[2024-12-21] MEDS: APIXABAN 2.5 MG TABLET (WCH) PO ×2 (10:14→20:10)
[2024-12-21] MEDS: Senna Tablet 1 TABLET PO ×2 (10:14→20:10)
[2024-12-21] MEDS: Aspirin E.C. 81 MG Tablet PO (10:14)
--- NOTE | 2024-12-21 11:13 | CASEMGMT ---
Addendum entered by Kenya Jimenez 12/21/24 13:07: SW requested [facility] start precert, as family would like to proceed with placement. NORTH Maravilla Original Note: Social Work- SW spoke with therapists for updates. JILLIAN then called pt to follow up on [facility] referral. Pt agreeable to providing chemo medication for [facility]. SW updated pt son as well on discharge readiness. JILLIAN updated [facility]. SW remains available to follow. NORTH Maravilla
[2024-12-21] MEDS: Polyethylene Glycol 3350 17 GM PACKET PO (20:10)
[2024-12-21 20:20] VITALS: BP 93/48; PULSE 88; RESP 16; TEMP 36.9; O2SAT 94
[2024-12-21] MEDS: MELATONIN 3 MG TABLET PO (20:40)
[2024-12-22 03:06] VITALS: BP 116/46; PULSE 75; RESP 16; TEMP 36.4; O2SAT 97
[2024-12-22 07:01] LABS: Hematocrit 28.3 % (40-54); Hemoglobin 9.5 g/dL (13.0-16.5); Mean Corp Hgb Conc 33.6 g/dL (32-36); Mean Corpuscular Volume 103.7 fL (80-94); Mean Platelet Vol. 9.9 fl (6.2-12.0); Platelet Count 134 K/mm3 (150-450); RBC Distribution Width CV 13.2 % (11.6-14.6); RBC Distribution Width SD 50.1 fl (35.1-43.9); Red Blood Count 2.73 M/mm3 (4.6-6.2); White Blood Count 6.9 K/mm3 (4.4-11.0)
[2024-12-22 07:27] LABS: Anion Gap 11 (5-15); BUN 40 mg/dL (4-19); BUN/Creat Ratio 36.6 RATIO (10-20); Calcium,Total 8.2 mg/dL (7.6-11.0); Carbon Dioxide 19.9 mmol/L (21.0-32.0); Chloride 110 mmol/L (98-108); Estimated Creatinine Clearance 49.30 ml/min (50-250); Glucose 81 mg/dL (70-99); Potassium 3.9 mmol/L (3.3-5.1)
--- NOTE | 2024-12-22 07:54 | PN.ORTHO_ITS ---
Subjective Subjective Patient seen 12/21/[address] Hamilton. Postop day 2 status post right hip cemented hemiarthroplasty. Saw patient in 324 today. Saw patient at bedside. Says there is minimal pain. He was able to walk with physical therapy in the hallway. Uses a walker. Objective Data Objective Data Vital Signs: Vital Signs Temp Pulse Resp BP Pulse Ox O2 Del Method O2 Flow Rate 97.5 F L 75 16 116/46 L 97 Room Air 2 12/22/24 03:06 12/22/24 03:06 12/22/24 03:06 12/22/24 03:06 12/22/24 03:06 12/22/24 03:06 12/19/24 21:40 Oxygen Flow Rate (L/min) 2 Oxygen Delivery Method Room Air Weight: 179 lb 1.586 oz Body Mass Index (BMI) 25.7 Intake & Output: Intake and Output for Last 24 Hours 12/20/24 12/21/24 12/22/24 23:59 23:59 23:59 Intake Total 356.5 / 506.5 1190 / 1190 Output Total 450 / 450 600 / 600 300 / 300 Balance -93.5 / 56.5 590 / 590 -300 / -300 Lab / Micro Data 12/22/24 06:11 12/22/24 06:11 Labs: Laboratory Results - last 24 hr 12/22/24 06:11: WBC 6.9, RBC 2.73 L, Hgb 9.5 L, Hct 28.3 L, MCV 103.7 H, MCH 34.8 H, MCHC 33.6, RDW Std Deviation 50.1 H, RDW Coeff of Danilo 13.2, Plt Count 134 L, MPV 9.9, Sodium 140, Potassium 3.9, Chloride 110 H, Carbon Dioxide 19.9 L , Anion Gap 11, BUN 40 H, Creatinine 1.09, Estim Creat Clear Calc 49.30 L, Est GFR (MDRD) Non-Af 66, BUN/Creatinine Ratio 36.6 H, Glucose 81, Calcium 8.2 Physical Exam Narrative Dressing?CDI. Distal neurovascular exam is intact. No significant lower extremity edema. No pain in distal extremity. Mika's negative. Const alert, oriented x3 and no apparent distress Assessment & Plan Assessment/Plan (1) Status post hemiarthroplasty of right hip: PLAN: Plan Postop day 2 status post right hip hemiarthroplasty. Pain well-controlled. Was able to walk with PT. DVT chemoprophylaxis with Eliquis. Weightbearing as tolerated. Posterior hip precautions. Plan for SNF discharge. Orthopedics will sign off. Follow-up in clinic in 2 weeks for staple removal.
[2024-12-22] MEDS: Aspirin E.C. 81 MG Tablet PO (08:27)
[2024-12-22] MEDS: APIXABAN 2.5 MG TABLET (WCH) PO ×2 (09:37→20:39)
[2024-12-22] MEDS: Senna Tablet 1 TABLET PO ×2 (09:39→20:40)
--- NOTE | 2024-12-22 10:59 | CASEMGMT ---
Addendum entered by Kenya Jimenez 12/22/24 17:52: Social Work- SW met with pt, pt , and pt sons to discuss precert status. SW provided updates and answered questions. SW remains available to follow. PASRR, transport, and green sheet on chart in the event of weekend discharge. [place] Original Note: Social Work- SW sent updates to [facility] via [employer]. JILLIAN remains available to follow. [place]
[2024-12-22 12:35] LABS: Hemoglobin 10.0 g/dL (13.0-16.5)
[2024-12-22 13:52] VITALS: BP 109/47; PULSE 73; RESP 16; TEMP 36.8; O2SAT 97
--- NOTE | 2024-12-22 16:38 | PCM.PN.HOSP ---
Reason for Visit Chief Complaint: Fall with right hip pain Subjective Subjective No issues overnight. Patient is moving bowels. States he is feeling okay. No complaints at this time. Awaiting pre-CERT. Objective Data Objective Data Vital Signs: Vital Signs Temp Pulse Resp BP Pulse Ox O2 Del Method O2 Flow Rate 98.2 F 73 16 109/47 L 97 Room Air 2 12/22/24 13:52 12/22/24 13:52 12/22/24 13:52 12/22/24 13:52 12/22/24 13:52 12/22/24 13:52 12/19/24 21:40 Oxygen Flow Rate (L/min) 2 Oxygen Delivery Method Room Air Weight: 81.238 kg Body Mass Index (BMI) 25.7 Intake & Output: Intake and Output for Last 24 Hours 12/20/24 12/21/24 12/22/24 23:59 23:59 23:59 Intake Total 356.5 / 506.5 1190 / 1190 Output Total 450 / 450 600 / 600 300 / 300 Balance -93.5 / 56.5 590 / 590 -300 / -300 Lab / Micro Data 12/22/24 12:27 12/22/24 06:11 Labs: Laboratory Results - last 24 hr 12/22/24 06:11: WBC 6.9, RBC 2.73 L, Hgb 9.5 L, Hct 28.3 L, MCV 103.7 H, MCH 34.8 H, MCHC 33.6, RDW Std Deviation 50.1 H, RDW Coeff of Danilo 13.2, Plt Count 134 L, MPV 9.9, Sodium 140, Potassium 3.9, Chloride 110 H, Carbon Dioxide 19.9 L, Anion Gap 11, BUN 40 H, Creatinine 1.09, Estim Creat Clear Calc 49.30 L, Est GFR (MDRD) Non-Af 66, BUN/Creatinine Ratio 36.6 H, Glucose 81, Calcium 8.2 12/22/24 12:27: Hgb 10.0 L Physical Exam Const alert, oriented x3, no apparent distress, average body habitus and well nourished Constitutional Narrative: Elderly, white male, sitting up in a chair at the bedside, appears comfortable, nontoxic General Appearance: cooperative and comfortable HEENT normocephalic and head/scalp atraumatic HEENT Narrative: Hard of hearing Extremity no clubbing, cyanosis or edema Psych mental status grossly normal and affect normal Psych Narrative: Very pleasant, eye contact is good and patient interacts appropriately Assessment & Plan Assessment/Plan (1) Fracture of femoral neck, right, closed: QUALIFIERS: Encounter type: initial encounter Qualified Code(s): S72.001A - Fracture of unspecified part of neck of right femur, initial encounter for closed fracture PLAN: Plan Right femoral neck fracture-suspect pathological fracture with metastatic prostate cancer - Continue aspirin - Postop day 3 status post right hip cemented hemiarthroplasty with Dr. Hamilton - Continue scheduled Tylenol - Continue as needed oxycodone - continue DVT prophylaxis per primary with Eliquis 2.5 mg p.o. twice daily - PT/OT following - Social work/case management following and working on placement -[facility] once approved by insurance CODY secondary to ATN -Renal function has normalized Mild anemia -Hemoglobin relatively stable with slight drop this morning however repeat is stable -Repeat CBC in a.m. - Likely related to intraoperative blood loss and possibly dilutional from intraoperative volume expansion Thrombocytopenia -Platelet count is trending up and is now 134,000 and normalizing - Likely consumptive related to fracture and postop - continue to monitor Chronic HFrEF - Most recent echocardiogram from 03/12/2024 shows an EF of 35% -Continue Jardiance we will continue to hold Lasix Aldactone, Entresto and beta-keisha and monitor blood pressure for appropriateness of reinitiation - Monitor closely in the perioperative period for volume overload Essential hypertension/hyperlipidemia -Continue to hold home beta-keisha/Lasix/Aldactone/Entresto - Continue home statin - Continue home aspirin Chronic LBBB - last left heart catheterization 11/23/2023 demonstrating 60% smooth stenosis in the mid RCA and mild luminal irregularities in the distal RCA, circumflex artery, LAD - monitor post-op 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 Mcgee - bone supportive therapy with zoledronic acid every 12 weeks - monitor for post-op retention DM-2 -Continue Jardiance - Last a1c 5.7 on 10/25/24 - Fasting blood sugar 81 DVT Prophylaxis - SCD's -Eliquis 2.5 mg p.o. twice daily Code Status -FULL CODE Charges/Coding Visit Charges Inpatient E&M: 47773 Subs Hosp L1 Date medically ready for discharge: 12/22/24 Reason for DC delay: Precert pending from insurance
[2024-12-22 20:43] VITALS: BP 105/43; PULSE 65; RESP 16; TEMP 36.5; O2SAT 100
[2024-12-22] MEDS: MELATONIN 3 MG TABLET PO (20:49)
[2024-12-23 04:55] VITALS: BP 132/48; PULSE 66; RESP 16; TEMP 36.8; O2SAT 98
[2024-12-23 08:39] VITALS: PULSE 90
[2024-12-23 08:44] VITALS: BP 114/89; PULSE 74; RESP 16; TEMP 36.7; O2SAT 96
[2024-12-23] MEDS: Aspirin E.C. 81 MG Tablet PO (08:49)
[2024-12-23] MEDS: Polyethylene Glycol 3350 17 GM PACKET PO (08:49)
[2024-12-23] MEDS: Senna Tablet 1 TABLET PO ×2 (08:50→20:46)
[2024-12-23] MEDS: APIXABAN 2.5 MG TABLET (WCH) PO ×2 (08:50→20:46)
--- NOTE | 2024-12-23 15:36 | PCM.PN.HOSP ---
Reason for Visit Chief Complaint: Fall with right hip pain Subjective Subjective Patient is having bowel movements. Does not complain of any considerable pain at this time. No complaints. Objective Data Objective Data Vital Signs: Vital Signs Temp Pulse Resp BP Pulse Ox O2 Del Method O2 Flow Rate 98.0 F 74 16 114/89 H 96 Room Air 2 12/23/24 08:44 12/23/24 08:44 12/23/24 08:44 12/23/24 08:44 12/23/24 08:44 12/23/24 08:44 12/19/24 21:40 Oxygen Flow Rate (L/min) 2 Oxygen Delivery Method Room Air Weight: 81.238 kg Body Mass Index (BMI) 25.7 Intake & Output: Intake and Output for Last 24 Hours 12/21/24 12/22/24 12/23/24 23:59 23:59 23:59 Intake Total 1190 / 1190 150 / 150 150 / 150 Output Total 600 / 600 700 / 700 350 / 350 Balance 590 / 590 -550 / -550 -200 / -200 Lab / Micro Data 12/22/24 12:27 12/22/24 06:11 Physical Exam Const alert, oriented x3, no apparent distress, average body habitus and well nourished Constitutional Narrative: Elderly, white male, sitting up in a chair at the bedside, appears comfortable, nontoxic General Appearance: cooperative and comfortable HEENT normocephalic, head/scalp atraumatic and moist oral mucous membranes; Negative for hearing grossly normal bilaterally HEENT Narrative: Moderate to severe hearing loss Neuro moves all extremities and no focal motor deficits Neuro Narrative: Unable to move right lower extremity moves all other extremities without difficulty Speech: speech normal Psych mental status grossly normal and affect normal Psych Narrative: Very pleasant, eye contact is good and patient interacts appropriately Assessment & Plan Assessment/Plan (1) Fracture of femoral neck, right, closed: QUALIFIERS: Encounter type: initial encounter Qualified Code(s): S72.001A - Fracture of unspecified part of neck of right femur, initial encounter for closed fracture PLAN: Plan Right femoral neck fracture-suspect pathological fracture with metastatic prostate cancer - Continue aspirin - Postop day 4 status post right hip cemented hemiarthroplasty with Dr. Hamilton - Continue scheduled Tylenol - Continue as needed oxycodone - continue DVT prophylaxis per primary with Eliquis 2.5 mg p.o. twice daily - PT/OT following - Social work/case management following and working on placement -[facility] once approved by insurance Mild anemia -Hemoglobin is stabilized Thrombocytopenia -Thrombocytopenia is stable - Repeat lab in a.m. Chronic HFrEF - Most recent echocardiogram from 03/12/2024 shows an EF of 35% -Continue Jardiance we will continue to hold Lasix Aldactone, Entresto and beta-keisha and monitor blood pressure for appropriateness of reinitiation - Monitor closely in the perioperative period for volume overload Essential hypertension/hyperlipidemia -Continue to hold home beta-keisha/Lasix/Aldactone/Entresto - Continue home statin - Continue home aspirin Chronic LBBB - last left heart catheterization 11/23/2023 demonstrating 60% smooth stenosis in the mid RCA and mild luminal irregularities in the distal RCA, circumflex artery, LAD - monitor post-op 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 Mcgee - bone supportive therapy with zoledronic acid every 12 weeks - monitor for post-op retention DM-2 -Continue Jardiance - Last a1c 5.7 on 10/25/24 - Fasting blood sugar 81 DVT Prophylaxis - SCD's -Eliquis 2.5 mg p.o. twice daily Code Status -FULL CODE Charges/Coding Visit Charges Inpatient E&M: 27785 [facility] Hosp L1 Date medically ready for discharge: 12/22/24 Reason for DC delay: Precert pending from insurance
[2024-12-23 16:28] VITALS: PULSE 80
[2024-12-23 20:36] VITALS: BP 127/54; PULSE 78; RESP 16; TEMP 37.2; O2SAT 98
[2024-12-24 04:39] VITALS: BP 148/61; PULSE 60; RESP 16; TEMP 36.1; O2SAT 99
[2024-12-24 04:55] LABS: Hematocrit 28.0 % (40-54); Hemoglobin 9.4 g/dL (13.0-16.5); Mean Corp Hgb Conc 33.6 g/dL (32-36); Mean Corpuscular Volume 103.3 fL (80-94); Mean Platelet Vol. 9.6 fl (6.2-12.0); Platelet Count 187 K/mm3 (150-450); RBC Distribution Width CV 13.2 % (11.6-14.6); RBC Distribution Width SD 50.4 fl (35.1-43.9); Red Blood Count 2.71 M/mm3 (4.6-6.2); White Blood Count 5.4 K/mm3 (4.4-11.0)
[2024-12-24 05:35] LABS: Anion Gap 10 (5-15); BUN 37 mg/dL (4-19); BUN/Creat Ratio 38.0 RATIO (10-20); Calcium,Total 8.1 mg/dL (7.6-11.0); Carbon Dioxide 21.8 mmol/L (21.0-32.0); Chloride 113 mmol/L (98-108); Estimated Creatinine Clearance 55.40 ml/min (50-250); Glucose 98 mg/dL (70-99); Potassium 3.9 mmol/L (3.3-5.1)
[2024-12-24 07:21] VITALS: BP 145/58; PULSE 64; RESP 20; TEMP 36.4; O2SAT 97
[2024-12-24 07:24] VITALS: PULSE 70
--- NOTE | 2024-12-24 07:27 | PCM.PN.HOSP ---
Reason for Visit Chief Complaint: Fall with right hip pain Objective Data Objective Data Vital Signs: Vital Signs Temp Pulse Resp BP Pulse Ox O2 Del Method O2 Flow Rate 97.6 F L 64 20 H 145/58 H 97 Room Air 2 12/24/24 07:21 12/24/24 07:21 12/24/24 07:21 12/24/24 07:21 12/24/24 07:21 12/24/24 07:21 12/19/24 21:40 Oxygen Flow Rate (L/min) 2 Oxygen Delivery Method Room Air Weight: 81.238 kg Body Mass Index (BMI) 25.7 Intake & Output: Intake and Output for Last 24 Hours 12/22/24 12/23/24 12/24/24 23:59 23:59 23:59 Intake Total 150 / 150 150 / 300 300 / 300 Output Total 700 / 700 350 / 525 475 / 475 Balance -550 / -550 -200 / -225 -175 / -175 Lab / Micro Data 12/24/24 03:34 12/24/24 03:34 Labs: Laboratory Results - last 24 hr 12/24/24 03:34: WBC 5.4, RBC 2.71 L, Hgb 9.4 L, Hct 28.0 L, MCV 103.3 H, MCH 34.7 H, MCHC 33.6, RDW Std Deviation 50.4 H, RDW Coeff of Danilo 13.2, Plt Count 187, MPV 9.6, Sodium 144, Potassium 3.9, Chloride 113 H, Carbon Dioxide 21.8, Anion Gap 10, BUN 37 H, Creatinine 0.97, Estim Creat Clear Calc 55.40, Est GFR (MDRD) Non-Af 76, BUN/Creatinine Ratio 38.0 H, Glucose 98, Calcium 8.1 Date medically ready for discharge: 12/22/24 Reason for DC delay: Precert pending from insurance
[2024-12-24] MEDS: Senna Tablet 1 TABLET PO (07:34)
[2024-12-24] MEDS: APIXABAN 2.5 MG TABLET (WCH) PO (07:35)
[2024-12-24] MEDS: Aspirin E.C. 81 MG Tablet PO (07:35)
--- NOTE | 2024-12-24 11:21 | NURSING ---
Spoke with pt's son, Simeon about pt's med xtandi. Simeon had called the company about taking it while here in the hospital. the company said they would contact his cancer Dr. Dr. Cope said it was fine for him to take it, and Simeon was fine with this plan. Dr Cope was notified, and replied Okay.
--- NOTE | 2024-12-24 13:09 | NURSING ---
Report called to Brenda the nurse.
--- NOTE | 2024-12-24 13:21 | PCM.TXEXTCAR ---
Diet Diet Order/Speech Therapy: INPATIENT Hospital Diet / Speech Therapy Order(s) 12/20/24 10:33 Diet: Regular - No Added Salt Food consistency:: Regular Liquid Consistency:: Regular/Thin Type of Dietary Supplement:: Ensure Plus High Protein Diet Comments: 240mL ensure plus HP w/ breakfast tray Routine Orders/Code Status Suppository Frequency: Daily PRN Routine Lab Work: CBC (1 week) and BMP (1 week) Code Status: Full Code DC O2, CPAP, BIPAP needs Home O2 Discharge instructions: No Wound(s) rt elbow: Wound Type: Skin Tear left elbow: Wound Type: Skin Tear RIGHT HIP, LATERAL: Wound Type: Surgical Incision Suggestions for Active Care Change Position every (hours): 2 Hours to sit in a chair: 2 Times a day to sit in chair: 3 Therapies Weight Bearing: Weight bearing as tolerated Extremity Affected:: Left Lower Physical Therapy: Eval and Treat Occupational Therapy: Eval and Treat Problem/Diagnosis (1) Fracture of femoral neck, right, closed: Status: Acute Code(s): S72.001A - Fracture of unspecified part of neck of right femur, initial encounter for closed fracture Allergies/Procedures Done in Hospital Allergies shellfish derived Allergy (Mild, Verified 12/19/24 13:02) swelling in throat Procedures: EKG and - (Chest x-ray/hip and pelvic x-rays) Type of Care/Length of Stay Estimated LOS: Convalescent Care Less Than 30 days Type of Care Needed: Skilled Rehab Potential: Good Prognosis: Fair Additional Orders/Day of Discharge Day of Discharge: 12/24/24 Dietary and Speech Recommendations Dietitian Recommendations/Changes: Will continue Regular; no added salt diet. Will add 240mL Ensure Plus HP w/ breakfast tray. Fluid restriction as needed per physician given diuretics and history of CHF. Follow Up Care Please Follow Up With: Adi Lopez DO When: 2 weeks Discharge Plan Admission Admit Date/Time: 12/18/24 14:35 Attending Provider: Radha Cope Primary Care Provider: Maximiliano Kyle Consulting Providers: Bj Hamilton; Amado Jean Discharge Orders/Prescriptions Prescriptions: No Action furosemide 40 mg tablet 40 mg PO DAILY aspirin [Adult Aspirin Regimen] 81 mg tablet,delayed release (DR/EC) 81 mg PO QDAY Qty: 90 3RF atorvastatin 10 mg tablet 10 mg PO QDAY Qty: 90 3RF Xtandi 80 mg tablet 160 mg PO QHS Patient Comments: PT STATES TAKES AT 1530 Jardiance 10 mg tablet 10 mg PO DAILY 30 Days Qty: 30 11RF spironolactone 25 mg tablet 25 mg PO LUNCH 90 Days Qty: 90 3RF Entresto 49-51 mg tablet 1 tab PO BID Qty: 60 11RF carvedilol 25 mg tablet 25 mg PO BID 30 Days Qty: 180 3RF Referrals / Follow Up: Maximiliano Kyle MD [Primary Care Provider] - 12/27/24 11:00 am (1) Fracture of femoral neck, right, closed Qualifiers: Encounter type: initial encounter Qualified Code(s): S72.001A - Fracture of unspecified part of neck of right femur, initial encounter for closed fracture
--- NOTE | 2024-12-24 13:22 | PCM.DC.SUM ---
Providers Date of Admission: 12/18/24 Date of Discharge: 12/24/24 Primary Care Physician: Dr. Maximiliano Kyle MD Consultations 12/18/24 16:06 Consult: Orthopedics Routine Consulting Provider: Bj Hamilton Reason for Consult: right hip fracture EMERGENT Consult: No MD Notified: Yes Date Notified: 12/18/24 Time Notified: 14:40 Method of Notification: Text Reason For Visit: RIGHT HIP FRACTURE Diagnosis Discharge Diagnosis (1) Fracture of femoral neck, right, closed: Status: Acute Code(s): S72.001A - Fracture of unspecified part of neck of right femur, initial encounter for closed fracture Qualifiers: Encounter type: initial encounter Qualified Code(s): S72.001A - Fracture of unspecified part of neck of right femur, initial encounter for closed fracture Medications at Discharge Home Medications enzalutamide 80 mg tablet (Xtandi) 160 mg PO QHS chemo 03/24/23 empagliflozin 10 mg tablet (Jardiance) 10 mg PO DAILY 30 days #30 tabs 02/16/24 spironolactone 25 mg tablet 25 mg PO LUNCH 90 days #90 tabs 06/29/24 aspirin 81 mg tablet,delayed release (Adult Aspirin Regimen) 81 mg PO QDAY #90 tabs 09/13/24 atorvastatin 10 mg tablet 10 mg PO QDAY #90 tabs 09/13/24 furosemide 40 mg tablet 40 mg PO DAILY 10/25/24 sacubitril 49 mg-valsartan 51 mg tablet (Entresto) 1 tab PO BID #60 tabs 11/20/24 Held on 12/24/24. Instructions: Restart once systolic blood pressure is consistently greater than 130 carvedilol 25 mg tablet 25 mg PO BID 30 days #180 tabs 12/11/24 Held on 12/24/24. Instructions: Restart once systolic blood pressure is consistently greater than 130 acetaminophen 500 mg tablet 1,000 mg (2 x 500 mg) PO Q8 #0 tabs 12/24/24 apixaban 5 mg tablet (Eliquis) 2.5 mg (1/2 x 5 mg) PO BID #0 tabs 12/24/24 calcium carbonate 500 mg (2.5 x 200 mg calcium (500 mg)) PO TIDCM #0 tabs 12/24/24 sennosides 8.6 mg tablet (senna) 8.6 mg PO BID #1 TAB 12/24/24 Hospital Course Operations None Procedures EKG and - (Chest x-ray/hip and pelvic x-rays x 2) Summary of Care Provided Minutes Spent on Discharge: 38 Hospital Course: Mr. Reyes is an 89-year-old white male with a history of metastatic prostate cancer to bone who follows with oncology and reported the emergency department was from the hospital on 12/10/2024 status post mechanical fall and resultant right hip pain. Patient had a pathologic fracture of his left humerus in 2022 and was at time found to have metastatic prostate cancer to bone. He has been on androgen deprivation therapy since that point in time as well as zoledronic acid and had responded very well. He was found to have a new acute onset heart failure with an EF of 10 to 15% in October 2023 with improved echocardiogram in February with an EF of 35%. Patient suffered a fall. They were at Dr. Diaz's office and his actually fell and knocked him to the ground. Following the fall EMS to the emergency department for the evaluation. Imaging revealed a fracture of the right femoral neck with a 0.9 cm impaction. The case was discussed with orthopedic surgery by the emergency department physician and plan was for surgical intervention. He was admitted to medical surgical floor. Vital signs on presentation showed temperature of 97.7, heart rate was 80, respiratory 16, blood pressure was 167/78 and pulse ox was 97% on room air. CBC showed mild stable thrombocytopenia. Chemistry panel was overall unremarkable. Chest x-ray was unremarkable for any acute findings.'s EKG was unremarkable for any acute changes. He was admitted to the medical floor and orthopedic surgery was consulted. He was taken to the OR on 12/19/2024 at which time a right cemented hip hemiarthroplasty was performed. Patient overall had a fairly uneventful postoperative course. He was noted to have some hypotension intraoperatively and ended up with some mild CODY following which had resolved by the time of discharge. Blood pressures were starting to increase at the time of discharge so we did restart his Lasix and Aldactone but his carvedilol and Entresto were remained on hold and were instructed to remain on hold until his systolic pressures were consistently greater than 130 at that time they should be restarted. He was not requiring any narcotic pain medication at the time of discharge and was doing well with scheduled Tylenol. He will continue this at discharge. He is to follow posterior hip precautions per orthopedic surgery and be weightbearing as tolerated. He is on Eliquis 2.5 mg p.o. twice daily at least for a month and until instructed otherwise by orthopedic surgery for DVT prophylaxis. He was evaluated by physical and Occupational Therapy and they felt he would benefit from ongoing rehab after discharge. He was accepted at [facility] and pre-CERT was obtained by his insurance company on the evening of 12/23/2024. We were notified by the nursing facility midday on 12/24/2024 that pre-CERT was obtained and he was discharged to [facility] in stable condition at that time. He has to follow-up with Dr. Hamilton in 2 weeks. Discharge diagnoses: Right femoral neck fracture-suspected pathological with history of metastatic prostate cancer Postop day 5 right cemented hip hemiarthroplasty Mild anemia Thrombocytopenia Chronic HFrEF Essential hypertension CODY-resolved Hyperlipidemia Chronic left bundle branch block Metastatic prostate cancer BPH DM-2 Physical Exam Narrative Patient states he had a bowel movement this morning. He states it was not large but he had several small turds Const alert, oriented x3, no apparent distress, average body habitus, no limitations and well nourished Constitutional Narrative: Elderly, white male, sitting up in a chair at the bedside, appears comfortable, nontoxic General Appearance: cooperative, comfortable, well kempt and well developed Exam Limitations: no limitations HEENT normocephalic and head/scalp atraumatic; Negative for hearing grossly normal bilaterally HEENT Narrative: Marked hearing loss, Mallampati 2-3, no thrush Eyes conjunctivae normal Eyes Narrative: No scleral icterus Neck supple Neck Narrative: Trachea midline Resp normal respiratory effort, normal air movement, no retractions, no use of accessory muscles and clear to auscultation bilaterally Auscultation: Negative for rales, rhonchi or wheezes Cardio regular rate, regular rhythm, S1 normal heart sound, S2 normal heart sound, no murmurs, no rub, no gallops and no clicks GI normal to inspection, nondistended, normoactive bowel sounds, soft to palpation and non-tender GI Narrative: Excellent bowel sounds Extremity Extremity Narrative: Trace lower extremity edema, no cyanosis or clubbing, pedal and radial pulses are 2+ bilaterally, right lower extremity within normal limits and postop dressing in place and is clean dry and intact Skin Skin Narrative: Postoperative dressing right hip in place with no signs of ecchymosis, dressing is clean dry and intact Neuro oriented x3, moves all extremities and no focal motor deficits Neuro Narrative: Generalized weakness, proximal greater than distal accentuated in right lower extremity due to injury Speech: speech normal Psych mental status grossly normal and affect normal Psych Narrative: Very pleasant, eye contact is good and patient interacts appropriately Weight / BMI Weight Weight: 81.238 kg Body Mass Index (BMI) 25.7 ABG / Lab / Microbiology Data 12/24/24 03:34 12/24/24 03:34 Laboratory: Laboratory Results - last 24 hr 12/24/24 03:34: WBC 5.4, RBC 2.71 L, Hgb 9.4 L, Hct 28.0 L, MCV 103.3 H, MCH 34.7 H, MCHC 33.6, RDW Std Deviation 50.4 H, RDW Coeff of Danilo 13.2, Plt Count 187, MPV 9.6, Sodium 144, Potassium 3.9, Chloride 113 H, Carbon Dioxide 21.8, Anion Gap 10, BUN 37 H, Creatinine 0.97, Estim Creat Clear Calc 55.40, Est GFR (MDRD) Non-Af 76, BUN/Creatinine Ratio 38.0 H, Glucose 98, Calcium 8.1 D/C Instructions DC O2, CPAP, BIPAP Needs Home O2 Discharge instructions: No Please Follow Up With: Adi Lopez, DO Meaningful Use Info Meaningful Use Meaningful Use Diagnoses (Choose all that apply): None applicable Discharge Plan Admission Admit Date/Time: 12/18/24 14:35 Primary Reason for Your Visit: Right hip pain after fall Attending Provider: Radha Cope Primary Care Provider: Maximiliano Kyle Consulting Providers: Bj Hamilton; Amado Jean Instructions Additional Instructions / Restrictions: 1. Patient should have a repeat BMP and CBC in 1 week 2. Weightbearing as tolerated right lower extremity 3. DVT prophylaxis with Eliquis until instructed to stop by orthopedic surgery 4. Posterior hip precautions Discharge Orders/Prescriptions Prescriptions: New sennosides [senna] 8.6 mg Tablet 8.6 mg PO BID Qty: 1 0RF acetaminophen 500 mg Tablet 1,000 mg PO Q8 Qty: 0 0RF calcium carbonate 200 mg calcium (500 mg) Tablet,Chewable 500 mg PO TIDCM Qty: 0 0RF Eliquis 5 mg Tablet 2.5 mg PO BID Qty: 0 0RF Continued furosemide 40 mg tablet 40 mg PO DAILY aspirin [Adult Aspirin Regimen] 81 mg tablet,delayed release (DR/EC) 81 mg PO QDAY Qty: 90 3RF atorvastatin 10 mg tablet 10 mg PO QDAY Qty: 90 3RF Xtandi 80 mg tablet 160 mg PO QHS Patient Comments: PT STATES TAKES AT 1530 Jardiance 10 mg tablet 10 mg PO DAILY 30 Days Qty: 30 11RF spironolactone 25 mg tablet 25 mg PO LUNCH 90 Days Qty: 90 3RF Held Entresto 49-51 mg tablet 1 tab PO BID Qty: 60 11RF Hold Instructions: Restart once systolic blood pressure is consistently greater than 130 carvedilol 25 mg tablet 25 mg PO BID 30 Days Qty: 180 3RF Hold Instructions: Restart once systolic blood pressure is consistently greater than 130 Referrals / Follow Up: Bj Hamilton MD [Med Staff - Active Staff] - Within 2 Weeks Maximiliano Kyle MD [Primary Care Provider] - 12/27/24 11:00 am Disposition Disposition (needs filled in before D/C Order can be placed): [facility] Charges/Coding Visit Charges Inpatient E&M: 80816 SNF Disch >30 Min
[2024-12-24 13:49] VITALS: BP 108/60; PULSE 83; RESP 18; TEMP 36.9; O2SAT 95
== END 2024-12-24 15:11 | disposition skilled nursing facility (03) | DRG 480 ==
LOC: ED 14:26 → MS3 15:02
PROVIDERS: Orthopaedic Surgery Orthopaedic Surgery of the Spine; Admitting Provider Hospitalist; Emergency Provider Emergency Medicine; PCP Internal Medicine; Visit Provider Internal Medicine
PROC: 0QS604Z Reposition Right Upper Femur with Internal Fixation Device, Open Approach (ICD-10-PCS; CPT 27125; principal; 2024-12-19 13:10)
DX: M84.551A Pathological fracture in neoplastic disease, right femur, initial encounter for fracture (principal); N17.0 Acute kidney failure with tubular necrosis; C79.51 Secondary malignant neoplasm of bone; I42.8 Other cardiomyopathies; I50.22 Chronic systolic (congestive) heart failure; D69.6 Thrombocytopenia, unspecified; D64.9 Anemia, unspecified; C61 Malignant neoplasm of prostate; I11.0 Hypertensive heart disease with heart failure; E11.9 Type 2 diabetes mellitus without complications; S50.311A Abrasion of right elbow, initial encounter; E78.5 Hyperlipidemia, unspecified; S50.312A Abrasion of left elbow, initial encounter; I44.7 Left bundle-branch block, unspecified; W19.XXXA Unspecified fall, initial encounter; Z79.899 Other long term (current) drug therapy; Z79.890 Hormone replacement therapy; Z80.8 Family history of malignant neoplasm of other organs or systems; Z79.84 Long term (current) use of oral hypoglycemic drugs; Z79.82 Long term (current) use of aspirin; Z79.01 Long term (current) use of anticoagulants; N40.0 Benign prostatic hyperplasia without lower urinary tract symptoms
CPT/HCPCS: 36415; 71045; 73501; 73502; 80048; 80076; 81001; 82962; 83880; 85018; 85025; 85027; 85610; 85730; 86850; 86900; 86901; 93005; 94668; 97116; 97162; 97165; 97530; 97535; 99285; C1776; A4216; J2405

== ENCOUNTER → 2025-01-09 05:00 | Outpatient (REF) | payer MEDICARE, SELFPAY ==
--- OUTSIDE RECORDS SUMMARY | 2025-01-09 04:00 | XMS RPT_ITS | CCD ---
Author Organization [facility] Care Team Providers Care Floral Designer Name Role Phone Brenda Raymond Attending Provider Unavailable Rosi Adair Attending Provider Unavailable Dr. Dyan Kyle Primary Care Provider [phone] Dr. Dyan Kyle Attending Provider [phone] Dr. Dyan Kyle Referring Provider [phone] Jennifer Trent MD Primary Care Provider Dr. Dyan Kyle Primary Care Provider [phone] Dr. Dyan Kyle Attending Provider [phone] Dr. Dyan Kyle Referring Provider [phone] KELSIE De La Rosa Attending Provider Dr. Simeon Gusman Emergency Provider Dr. Mariana Brown Admit Provider Dr. Mariana Brown Attending Provider Dr. Mariana Brown Other Provider Dr. Theodore Starks Other Provider Dr. Ted Lee Attending Provider Dr. Ted Lee Other Provider Dr. Theodore Starks Attending Provider Dr. Win Ramey Attending Provider Dr. Ted Lee Referring Provider KELSIE De La Rosa Attending Provider Dr. Mariana Brown Referring Provider Dr. Carolina Mcgee Attending Provider Dyan Kyle MD Primary Care Provider Carolina Prieto Unavailable Jesse GAMBLE, Eileen Unavailable Unavailable Dr. Dyan Kyle Primary Care Provider Dr. Dyan Kyle Attending Provider Dr. Dyan Kyle Referring Provider KELSIE De La Rosa Attending Provider Dr. Simeon Gusman Emergency Provider Dr. Mariana Brown Admit Provider Dr. Mariana Brown Attending Provider Dr. Mariana Brown Other Provider Dr. Win Ramey Attending Provider Dr. Mariana Brown Referring Provider Dr. Theodore Starks Other Provider Dr. Ted Lee Attending Provider Dr. Ted Lee Other Provider Dr. Theodore Starks Attending Provider Dr. Ted Lee Referring Provider Dr. Carolina Mcgee Attending Provider Albino EAP COUNSELOR, EAP COUNSELOR-C Rachael Attending Provider Dr. Dyan Kyle Primary Care Provider Dr. Dyan Kyle Attending Provider Dr. Dyan Kyle Referring Provider Dr. Carolina Mcgee Attending Provider Dr. Win Ramey Attending Provider DYAN KYLE Referring Unavailable DYAN KYLE Primary Care Unavailable LONNIE FISCHER Attending Unavailable MAADO, LONNIE H Attending Unavailable OLEGHE, EFEWONGBE B Referring Unavailable OLEGHE, EFEWONGBE B Primary Care Unavailable OLEGHE, EFEWONGBE B Primary Care Unavailable LONNIE FISCHER H Attending Unavailable CAROLINA MCGEE Referring Unavailable OLEGHE, EFEWONGBE B Primary Care Unavailable AMADO, LONNIE H Attending Unavailable AMADO, LONNIE H Referring Unavailable OLEGHE, EFEWONGBE B Primary Care Unavailable AMADO, LONNIE H Referring Unavailable AMADO, LONNIE H Attending Unavailable OLEGHE, EFEWONGBE B Referring Unavailable OLEGHE, EFEWONGBE B Primary Care Unavailable AMADO, LONNIE H Attending Unavailable OLEGHE, EFEWONGBE B Referring Unavailable OLEGHE, EFEWONGBE B Primary Care Unavailable TIFFANIE MONROE Attending Unavailable Saroj COVARRUBIAS, Dr. Viera Primary Care Provider Saroj COVARRUBIAS, Dr. Viera Attending Provider [phone] Saroj COVARRUBIAS, Dr. Viera Referring Provider [phone] Albino MELCHOR-C, Rachael Attending Provider Dr. Carl Anders DO Attending Provider Dr. Carl Anders DO Emergency Provider Dr. Carolina Mcgee MD Attending Provider Dr. Carolina Mcgee MD Referring Provider Dr. Dyan Kyle MD Primary Care Provider Dr. Dyan Kyle MD Referring Provider [phone] Dr. Carolina Mcgee MD Attending Provider Dr. Carolina Mcgee MD Referring Provider Bob Johnson Attending Provider Dr. Dyan Kyle MD Attending Provider [phone] Dr. Dyan Kyle MD Primary Care Provider Dr. Carolina Mcgee MD Attending Provider Dr. Dyan Kyle MD Referring Provider Saroj COVARRUBIAS, Dr. Viera Primary Care Provider Saroj COVARRUBIAS, Dr. Viera Referring Provider Arely COVARRUBIAS, Dr. Figueroa Attending Provider Arely COVARRUBIAS, Dr. Figueroa Referring Provider oDlly NUÑEZ, Dr. Walden Emergency Provider Miranda NUÑEZ, Dr. Fischer Admit Provider Miranda NUÑEZ, Dr. Fischer Attending Provider Miranda NUÑEZ, Dr. Fischer Other Provider Alfonso COVARRUBIAS, Dr. Lorenzo Other Provider Anatoliy NUÑEZ, Dr. Garcia Attending Provider Anatoliy NUÑEZ, Dr. Garcia Other Provider Alfonso COVARRUBIAS, Dr. Lorenzo Attending Provider Renae Araujo Attending Provider Trista COVARRUBIAS, Dr. Hinkle Attending Provider Unavail michelle Patel NP-CJackie Attending Provider Sg COVARRUBIAS, Dr. Cotto Attending Provider Arely, Vaishnaviour Referring Unavailable Carolina Mcgee Attending Unavailable Oleghe, Efewongbe Primary Care Unavailable Oleghe, Efewongbe Primary Care Unavailable Carl Anders Attending Unavailable Oleghe, Efewongbe Primary Care Unavailable Arin Kline Attending Unavailable Kaciekarus, Carolina Attending Unavailable Oleghe, Efewongbe Primary Care Unavailable Isckarus, Mansour Referring Unavailable Oleghe, Efewongbe Attending Unavailable Oleghe, Efewongbe Primary Care Unavailable Oleghe, Efewongbe Referring Unavailable Isckarus, Mansour Attending Unavailable Oleghe, Efewongbe Primary Care Unavailable Oleghe, Efewongbe Referring Unavailable Oleghe, Efewongbe Primary Care Unavailable Lisy Nguyễn Attending Unavailable Amado Jean Admitting Unavailable Oleghe, Efewongbe Primary Care Unavailable Amado Jean Attending Unavailable Amado Jean Consulting Unavailable Arin Kline Attending Unavailable Oleghe, Efewongbe Primary Care Unavailable Carolina Mcgee Attending Unavailable Oleghe, Efewongbe Referring Unavailable Oleghe, Efewongbe Primary Care Unavailable Oleghe, Efewongbe Primary Care Unavailable Albino EAP COUNSELOR, Rachael Attending Unavailable Oleghe, Efewongbe Referring Unavailable Oleghe, Efewongbe Primary Care Unavailable Oleghe, Efewongbe Referring Unavailable Oleghe, Efewongbe Attending Unavailable Oleghe, Efewongbe Primary Care Unavailable Albino EAP COUNSELOR, Rachael Attending Unavailable Oleghe, Efewongbe Referring Unavailable Oleghe, Efewongbe Primary Care Unavailable Yadiel Bettencourt Attending Unavailable Bj Hamilton Consulting Unavailable Renae Rodríguez Attending Unavailable Radha Cope Consulting Unavailable Radha Cope Attending Unavailable Oleghe, Efewongbe Primary Care Unavailable Yadiel Bettencourt Attending Unavailable Oleghe, Efewongbe Primary Care Unavailable Daniel Phillips Attending Unavailable Oleghe, Efewongbe Referring Unavailable KaciekarCarolina woodward Attending Unavailable Oleghe, Efewongbe Referring Unavailable Oleghe, Efewongbe Primary Care Unavailable Bob Snyder Attending Unavailable Oleghe, Efewongbe Referring Unavailable Oleghe, Efewongbe Primary Care Unavailable Bj Hamilton Attending Unavailable Carolina Mcgee Attending Unavailable Arely Mansour Referring Unavailable Oleghe, Efewongbe Primary Care Unavailable Radha Cope Attending Unavailable Bj Hamilton Consulting Unavailable Amado Jean Admitting Unavailable Oleghe, Efewongbe Primary Care Unavailable Amado Jean Consulting Unavailable Oleghe, Efewongbe Primary Care Unavailable NURSE, CHERELLE Attending Unavailable Oleghe, Efewongbe Referring Unavailable Oleghe, Efewongbe Primary Care Unavailable Albino EAP COUNSELOR, Rachael Attending Unavailable Oleghe, Efewongbe Referring Unavailable Oleghe, Efewongbe Primary Care Unavailable Oleghe, Efewongbe Referring Unavailable Albino EAP COUNSELOR, Rachael Attending Unavailable Oleghe, Efewongbe Primary Care Unavailable Oleghe, Efewongbe Attending Unavailable Oleghe, Efewongbe Referring Unavailable IsckarusCarolina Attending Unavailable Oleghe, Efewongbe Primary Care Unavailable Oleghe, Efewongbe Referring Unavailable Oleghe, Efewongbe Primary Care Unavailable Jackie Patel Attending Unavailable Olejuliane, Efewongbe Referring Unavailable Olejuliane, Efewongbe Primary Care Unavailable Daniel Phillips Referring Unavailable Daniel Phillips Attending Unavailable Allergies Allergy Classification Reported Allergen(s) Allergy Type Date of Onset Reaction(s) Facility (20 sources) Shellfish; Translations: [shellfish derived] Allergy to substance 12-12-2015 [facility] (2 sources) Shellfish-Derive d Products Propensity to adverse reactions to drug 03-08-2023 [facility] Medications Current Medications Medication Drug Class(es) Dates Sig (Normalized) Sig (Original) acetaminophen 650 mg rectal suppository (20 sources) Start: 01-05-2025 take 1 capsule by mouth once as needed Acetaminophen 325 mg capsule Active 325 mg PO ONCE as needed January 05, 2025 12:00am Start: 01-05-2025 Acetaminophen 650 mg suppository Active 650 mg RC Q4H as needed January 05, 2025 12:00am Start: 12-24-2024 End: 01-05-2025 take 2 tablets by mouth every eight hours Acetaminophen 500 mg Tablet Discontinued 1000 mg PO EVERY 8 HOURS 0 0 December 24, 2024 12:00am January 05, 2025 9:26am Start: 02-14-2023 End: 03-12-2023 Acetaminophen 325 mg Tablet Discontinued 1000 mg PO Q8H 0 0 February 14, 2023 12:00am March 12, 2023 3:31pm Fever, pain 1-10 Rgmy-xsn-ftrvzpb. 1000 mg every 8 hourly for 1 week and then as needed. Start: 02-14-2023 End: 03-12-2023 Acetaminophen Discontinued 1 000 MG PO Q8H 0 February 13, 2023 11:00pm March 12, 2023 2:31pm Rwke-kgr-dxszwis. 1000 mg every 8 hourly for 1 week and then as needed. take 1 tablet by bernardino th every four hours Acetaminophen 325 MG tablet Take 1 tablet by mouth every 4 hours. 0 Active Aluminum-Magnesium Hydroxide 225-200 mg/5 mL suspension (2 sources) Start: 01-05-2025 take 1 mL by mouth every four hours as needed Aluminum-Magnesium Hydroxide 225-200 mg/5 mL suspension Active 30 mL PO EVERY 4 HOURS NEEDED January 05, 2025 12:00am apixaban 5 mg oral tablet (3 sources) Factor Xa Inhibitor Start: 12-24-2024 take 2.5 mg by mouth twice daily Apixaban (Eliquis) 5 mg Tablet Active 2.5 mg PO TWICE A DAY 0 0 December 24, 2024 12:00am aspirin 81 mg delayed release oral tablet (6 sources) Platelet Aggregation Inhibitor, Nonsteroidal Anti-inflammatory Drug Start: 09-13-2024 take 1 tablet by mouth once daily Aspirin (Adult Aspirin Regimen) 81 mg tablet,delayed release (DR/EC) Active 81 mg PO daily 90 September 13, 2024 12:00am atorvastatin 10 mg oral tablet (6 sources) HMG-CoA Reductase Inhibitor Start: 09-13-2024 take 1 tablet by mouth once daily Atorvastatin 10 mg tablet Active 10 mg PO daily 90 September 13, 2024 12:00am bisacodyl 10 mg rectal suppository (2 sources) Stimulant Laxative Start: 01-05-2025 Bisacodyl 10 mg suppository Active 10 mg RC ONCE January 05, 2025 12:00am calcium carbonate 500 mg chewable tablet (3 sources) Start: 12-24-2024 take 1 tablet by mouth three times daily at mealtime Calcium Carbonate 200 mg calcium (500 mg) Tablet,Chewable Active 500 mg PO 3 TIMES DAILY WITH MEALS 0 0 December 24, 2024 12:00am dapagliflozin 5 mg oral tablet (2 sources) Sodium-Glucose Cotransporter 2 Inhibitor Start: 01-05-2025 take 1 tablet by mouth once daily in the morning Dapagliflozin Propanediol 5 mg tablet Active 5 mg PO EVERY MORNING January 05, 2025 12:00am ergocalciferol 1.25 mg oral capsule (2 sources) Provitamin D2 Compound Start: 01-05-2025 Ergocalciferol (Vitamin D2) 1,250 mcg (50,000 unit) capsule Active 1250 ug PO EVERY WEEK January 05, 2025 12:00am glucagon (rdna) 1 mg injection (2 sources) Antihypoglycemic Agent Start: 01-05-2025 Glucagon (Glucagon Emergency Kit (Human)) 1 mg recon soln Active 1 mg SC Q20M as needed January 05, 2025 12:00am until target blood sugar attained glucose 0.4 mg/mg oral gel (2 sources) Start: 01-05-2025 Dextrose (Glucose Gel) 40 % gel Active 10 g PO Q15M as needed January 05, 2025 12:00am until symptoms of low blood sugar are controlled guaiFENesin 20 mg/ml oral solution (2 sources) Start: 01-05-2025 take 200 mg by mouth every four hours as needed Guaifenesin 100 mg/5 mL liquid Active 200 mg PO Q4H as needed January 05, 2025 12:00am Lift Chair (2 sources) Start: 01-02-2025 Lift Chair Active 0 .Route .MEDSUPPLY 1 0 January 02, 2025 12:00am Malignant neoplasm metastatic to bone Debility Cardiomyopathy Secondary malignant neoplasm of bone Other malaise Cardiomyopathy, unspecified As directed Magnesium Hydroxide (2 sources) Start: 01-05-2025 take 1 mL by mouth once as needed Magnesium Hydroxide (Milk Of Magnesia) 400 mg/5 mL suspension Active 30 mL PO ONCE as needed January 05, 2025 12:00am Multiple Vitamin (multivitamin) capsule (2 sources) take 1 capsule by mouth once daily Multiple Vitamin (multivitamin) capsule Take 1 capsule by mouth daily. 0 Active Sennosides (Senna) 8.6 mg Tablet (3 sources) Start: 12-24-2024 take 1 tablet by mouth twice daily Sennosides (Senna) 8.6 mg Tablet Active 8.6 mg PO TWICE A DAY 1 0 December 24, 2024 12:00am sennosides, long-term 8.6 mg oral tablet (2 sources) take 1 tablet by mouth once daily Senna 8.6 MG tablet Take 1 tablet by mouth daily. 0 Active spironolactone 25 mg oral tablet (20 sources) Aldosterone Antagonist Start: 11-23-2023 End: 06-29-2024 take 1 tablet by mouth at lunch Spironolactone 25 mg tablet Active 25 mg PO WITH LUNCH 90 90 3 June 29, 2024 10:48am Start: 11-15-2023 End: 11-23-2023 Spironolactone 25 mg Tablet Discontinued 12.5 mg PO WITH LUNCH 15 30 2 November 15, 2023 12:00am November 23, 2023 9:08am Completed/Discontinued Medications Medication Drug Class(es) Dates Sig (Normalized) Sig (Original) amoxicillin 875 mg / clavulanate 125 mg oral tablet (16 sources) Penicillin-class Antibacterial Start: 02-14-2023 End: 03-12-2023 Amoxicillin-Pot Clavulanate 875-125 mg tablet Discontinued 1 {tbl} PO TWICE A DAY 10 5 0 February 14, 2023 12:00am March 12, 2023 3:31pm Start: 02-14-2023 End: 03-12-2023 take 1 tablet by mouth twice daily Amoxicillin-Pot Clavulanate Discontinued 1 TABLET PO TWICE A DAY 10 5 February 13, 2023 11:00pm March 12, 2023 2:31pm Ascorbic Yxzg-Kdawdslx-Evl (Vitamin C Fizzy Drink) 1,000 mg powder effervescent in packet (7 sources) Start: 10-25-2023 End: 11-12-2023 Ascorbic Ldgo-Pbcxrcgx-Dng (Vitamin C Fizzy Drink) 1,000 mg powder effervescent in packet Discontinued NMA PO October 25, 2023 12:00am November 12, 2023 4:42pm carvedilol 25 mg oral tablet (20 sources) alpha-Adrenergi c Keisha, beta-Adrenergic Keisha Start: 12-11-2024 Carvedilol 25 mg tab let Active 25 mg PO TWICE A DAY 180 30 December 11, 2024 11:14am On Hold: Restart once systolic blood pressure is consistently greater than 130 Start: 01-03-2024 End: 12-11-2024 take 1 tablet by mouth twice daily Carvedilol 25 mg tablet Discontinued 25 mg PO TWICE A DAY 60 30 January 03, 2024 3:23pm December 11, 2024 11:15am Start: 11-23-2023 End: 01-03-2024 take 1 tablet by mouth twice daily Carvedilol 12.5 mg tablet Discontinued 12.5 mg PO TWICE A DAY 60 30 November 23, 2023 9:05am January 03, 2024 3:23pm Start: 11-15-2023 End: 11-23-2023 take 1 tablet by mouth twice daily Carvedilol 6.25 mg Tablet Discontinued 6.25 mg PO TWICE A DAY 60 30 2 November 15, 2023 12:00am November 23, 2023 9:08am docusate sodium 50 mg / sennosides, long-term 8.6 mg oral tablet (16 sources) Start: 02-14-2023 End: 03-24-2023 Sennosides-Docusate Sodium (Stool Softener-Stimulant Laxat) 8.6-50 mg Tablet Discontinued 2 {tbl} PO TWICE A DAY 0 0 February 14, 2023 12:00am March 24, 2023 10:35am scheduled while taking pain meds. OTC empagliflozin 10 mg oral tablet (14 sources) Sodium-Glucose Cotransporter 2 Inhibitor Start: 11-15-2023 End: 01-05-2025 take 1 tablet by mouth once daily Empagliflozin (Jardiance) 10 mg tablet Discontinued 10 mg PO DAILY 30 22 04February 16, 2024 12:04pm January 05, 2025 9:35am enzalutamide 80 mg oral tablet (20 sources) Androgen Receptor Inhibitor Start: 03-02-2023 End: 03-24-2023 Enzalutamide (Enzalutamide 80 Mg Tablet) 80 mg tablet Discontinued mg PO March 12, 2023 12:00am March 24, 2023 10:35am Start: 03-02-2023 take 2 tablets by mo uth once daily Xtandi 80 MG tablet Take 160 mg by mouth daily. 0 03/02/2023 Active furosemide 40 mg oral tablet (20 sources) Loop Diuretic Start: 11-15-2023 End: 10-25-2024 take 1 tablet by mouth once daily Furosemide 40 mg tablet Discontinued 40 mg PO DAILY 90 3 March 20, 2024 1:38pm October 25, 2024 2:44pm Start: 11-09-2023 End: 11-15-2023 take 1 tablet by mouth twice daily Furosemide 20 mg tablet Discontinued 20 mg PO TWICE A DAY November 12, 2023 12:00am November 15, 2023 3:33pm Start: 10-08-2023 End: 11-09-2023 take 1 tablet by mouth once daily Furosemide 20 mg tablet Discontinued 20 mg PO DAILY 30 1 November 01, 2023 4:43pm November 08, 2023 2:18pm JUXTA LITE (12 sources) Start: 03-24-2023 End: 12-06-2023 JUXTA LITE Discontinued 0 .R oute .MEDSUPPLY 2 0 March 24, 2023 12:00am December 06, 2023 1:09pm Venous insufficiency of both lower extremities Venous insufficiency (chronic) (peripheral) 30 - 40 mmHg Start: 03-24-2023 End: 12-06-2023 JUXTA LITE Discontinued 0 .R oute .MEDSUPPLY 2 March 24, 2023 12:00am December 06, 2023 1:09pm 30 - 40 mmHg Start: 03-24-2023 JUXTA LITE Act chloe 0 .Route .MEDSUPPLY 2 March 23, 2023 11:00pm 30 - 40 mmHg metFORMIN hydrochloride 500 mg oral tablet (20 sources) Biguanide Start: 10-16-2021 End: 04-06-2022 take 1 tablet by mouth once daily Metformin 500 mg tablet Discontinued 500 mg PO DAILY October 16, 2021 12:00am April 06, 2022 2:17pm Start: 12-13-2020 End: 12-10-2021 metFORMIN ER (GLUCOPHAGE XR) 500 mg 24 hr tablet Indications: Controlled type 2 diabetes mellitus with stage 3 chronic kidney disease, without long-term current use of insulin (HCC) TAKE 1 TABLET BY MOUTH EVERY DAY WITH BREAKFAST 90 tablet 0 12/10/2021 Active Comment on above: TAKE 1 TABLET BY BERNARDINO TH EVERY DAY WITH BREAKFAST Take 1 tablet by bernardino th daily with breakfast. multivit-min/FA/lycopen/l utein (CENTRUM SILVER MEN ORAL) (1 source) multivit-min/FA/ lycopen/ lutein (CENTRUM SILVER MEN ORAL) Take by mouth. 0 Active Comment on above: Take by mouth. Multivitamin (Daily Multi-Vitamin) tablet (17 sources) Start: 02-12-2023 End: 10-25-2023 Multivitamin (Daily Multi-Vitamin) tablet Discontinued 1 {tbl} PO DAILY February 12, 2023 12:00am October 25, 2023 2:07pm Start: 02-12-2023 take 1 tablet by bernardino th once daily Multivitamin (Daily Multi-Vitamin) tablet Active 1 TABLET PO DAILY February 11, 2023 11:00pm Start: 02-12-2023 take 1 tablet by bernardino th once daily Multivitamin (Daily Multi-Vitamin) tablet Active 1 TABLET PO DAILY February 12, 2023 12:00am Fd-Evj-Vitwf-S6-Nwrbxou-Pkqv in (Centrum Silver Men) 300-600-300 mcg tablet (17 sources) Start: 04-06-2022 End: 07-09-2022 Wk-Ptx-Fzuwb-P5-Orfkloi-Disv in (Centrum Silver Men) 300-600-300 mcg tablet Discontinued 1 {tbl} PO DAILY April 06, 2022 1:00am July 09, 2022 3:51pm Start: 04-06-2022 End: 07-09-2022 take 300-600 tablets by mouth once daily Bp-Fvk-Gvmag-V9-Waiovzd-Buefte (Centrum Silver Men) 300-600-300 mcg tablet Discontinued 1 TABLET PO DAILY April 06, 2022 12:00am July 09, 2022 2:51pm Start: 04-06-2022 End: 07-09-2022 take 300-600 tablets by mouth once daily Az-Fri-Kcbtv-V7-Rpktyfg-Ucbyid (Centrum Silver Men) 300-600-300 mcg tablet Discontinued 1 TABLET PO DAILY April 06, 2022 1:00am July 09, 2022 3:51pm oxyCODONE hydrochloride 5 mg oral tablet (18 sources) Opioid Agonist Start: 02-14-2023 End: 03-24-2023 take 2.5-5 mg by mouth every four hours as needed for pain Oxycodone 5 mg Tablet Discontinued 2.5 - 5 mg PO EVERY 4 HOURS NEEDED as needed for Pain Score 4-10 20 7 0 February 14, 2023 March 24, 2023 10:35am sacubitril 49 mg / valsartan 51 mg oral tablet (18 sources) Angiotensin 2 Receptor Keisha Start: 12-07-2023 End: 11-20-2024 Sacubitril-Valsart an (Entresto) 49-51 mg tablet Active 1 {tbl} PO TWICE A DAY 60 November 20, 2024 12:25pm On Hold: Restart once systolic blood pressure is consistently greater than 130 Start: 11-15-2023 End: 12-07-2023 Sacubitril-Valsartan (Entres to) 24-26 mg Tablet Discontinued 1 {tbl} PO TWICE A DAY 60 30 November 15, 2023 12:00am December 07, 2023 2:22pm Vitamin B Complex (B Complex-Vitamin B12) tablet (17 sources) Start: 04-06-2022 End: 02-12-2023 Vitamin B Complex (B Complex-Vitamin B12) tablet Discontinued 1 {tbl} PO DAILY April 06, 2022 1:00am February 12, 2023 3:13pm Start: 04-06-2022 End: 02-12-2023 take 1 tablet by mouth once daily Vitamin B Complex (B Complex-Vitamin B12) tablet Discontinued 1 TABLET PO DAILY April 06, 2022 12:00am February 12, 2023 2:13pm Start: 04-06-2022 End: 02-12-2023 take 1 tablet by mouth once daily Vitamin B Complex (B Complex-Vitamin B12) tablet Discontinued 1 TABLET PO DAILY April 06, 2022 1:00am February 12, 2023 3:13pm Problems Active Problems Problem Classification Problem Date Documented Date Episodic/Chronic Cancer of bone and connective tissue (20 sources) Malignant neoplasm of bone; Translations: [Malignant neoplasm of bone and articular cartilage, unspecified] Onset: 02-26-2023 02-17-2023 Chronic Cancer of prostate (20 sources) Malignant tumor of prostate; Translations: [Malignant neoplasm of prostate] Onset: 02-26-2023 02-24-2023 Chronic Cardiac dysrhythmias (17 sources) Cardiac arrhythmia; Translations: [Cardiac arrhythmia, unspecified] 03-24-2023 Chronic Cardiac dysrhythmias (8 sources) Bradycardia; Translations: [Bradycardia, unspecified] 04-26-2024 Episodic Conduction disorders (20 sources) Complete left bundle branch block; Translations: [Left bundle-branch block, unspecified] 11-16-2023 Chronic Congestive heart failure; nonhypertensive (20 sources) Heart failure with reduced ejection fraction; Translations: [Unspecified systolic (congestive) heart failure] 01-19-2024 Chronic Coronary atherosclerosis and other heart disease (12 sources) Non-obstructive atherosclerosis of coronary artery; Translations: [Atherosclerotic heart disease of [place] coronary artery without angina pectoris] 09-13-2024 Chronic Diabetes mellitus without complication (20 sources) Type 2 diabetes mellitus; Translations: [Type 2 diabetes mellitus without complications] Onset: 10-25-2024 Chronic E Codes: Fall (20 sources) Fall; Translations: [Unspecified fall, initial encounter] 02-12-2023 Episodic Essential hypertension (20 sources) Hypertensive disorder; Translations: [Essential (primary) hypertension] 01-20-2023 Chronic Fracture of neck of femur (hip) (11 sources) Closed fracture of neck of femur; Translations: [Fracture of unspecified part of neck of right femur, initial encounter for closed fracture] Onset: 12-24-2024 12-18-2024 Episodic Fracture of upper limb (20 sources) Closed fracture of humerus; Translations: [Unspecified fracture of shaft of humerus, left arm, initial encounter for closed fracture] 02-12-2023 Episodic Hyperplasia of prostate (20 sources) Benign prostatic hyperplasia; Translations: [Benign prostatic hyperplasia without lower urinary tract symptoms] 01-20-2023 Chronic Malaise and fatigue (7 sources) Asthenia; Translations: [Other malaise] 11-16-2023 Episodic Other aftercare (4 sources) Long-term current use of diuretic; Translations: [Encounter for therapeutic drug level monitoring] 12-13-2024 Episodic Other and unspecified benign neoplasm (18 sources) Change in skin lesion; Translations: [Melanocytic nevi, unspecified] 11-27-2021 Episodic Other and unspecified benign neoplasm (8 sources) Melanocytic nevi, unspecified; Translations: [Benign neoplasm of skin, site unspecified] Episodic Other circulatory disease (9 sources) Disorder of carotid artery; Translations: [Disorder of arteries and arterioles, unspecified] 07-07-2023 Chronic Other circulatory disease (18 sources) Elevated blood pressure; Translations: [Elevated blood-pressure reading, without diagnosis of hypertension] 02-12-2023 Episodic Other circulatory disease (1 source) Elevated blood-pressure reading, without diagnosis of hypertension; Translations: [Elevated blood pressure reading without diagnosis of hypertension] Episodic Other circulatory disease (9 sources) Carotid bruit; Translations: [Other specified symptoms and signs involving the circulatory and respiratory systems] 07-07-2023 Episodic Other circulatory disease (2 sources) Other specified symptoms and signs involving the circulatory and respiratory systems; Translations: [Other symptoms involving cardiovascular system] 07-07-2023 Episodic Other connective tissue disease (8 sources) History of repair of hip joint; Translations: [Presence of right artificial hip joint] 12-20-2024 Chronic Other connective tissue disease (2 sources) Presence of right artificial hip joint; Translations: [Presence of right artificial hip joint] Onset: 12-24-2024 Chronic Other diseases of veins and lymphatics (12 sources) Venous insufficiency of leg; Translations: [Venous insufficiency (chronic) (peripheral)] 03-24-2023 Episodic Other diseases of veins and lymphatics (7 sources) Venous insufficiency (chronic) (peripheral); Translations: [Venous (peripheral) insufficiency, unspecified] 03-24-2023 Episodic Other injuries and conditions due to external causes (17 sources) Injury of forearm; Translations: [Unspecified injury of left forearm, initial encounter] 02-12-2023 Episodic Other injuries and conditions due to external causes (7 sources) Unspecified injury of left forearm, initial encounter; Translations: [Elbow, forearm, and wrist injury] 02-12-2023 Episodic Other injuries and conditions due to external causes (7 sources) Foreign body in esophagus; Translations: [Unspecified foreign body in esophagus causing other injury, initial encounter] 06-11-2024 Episodic Other lower respiratory disease (7 sources) Dyspnea; Translations: [Dyspnea, unspecified] 11-16-2023 Episodic Other nutritional; endocrine; and metabolic disorders (17 sources) Unintentional weight loss; Translations: [Abnormal weight loss] 01-20-2023 Episodic Other nutritional; endocrine; and metabolic disorders (17 sources) H/O: diabetes mellitus; Translations: [Personal history of other endocrine, nutritional and metabolic disease] 02-12-2023 Episodic Other nutritional; endocrine; and metabolic disorders (9 sources) Abnormal weight loss; Translations: [Loss of weight] 01-20-2023 Episodic Other nutritional; endocrine; and metabolic disorders (7 sources) Personal history of other endocrine, nutritional and metabolic disease; Translations: [Personal history of other endocrine, metabolic, and immunity disorders] 02-12-2023 Episodic Other screening for suspected conditions (not mental disorders or infectious disease) (20 sources) Raised prostate specific antigen; Translations: [Elevated prostate specific antigen [PSA]] 01-21-2023 Episodic Pathological fracture (20 sources) Pathological fracture - upper arm; Translations: [Pathological fracture, unspecified humerus, initial encounter for fracture] Onset: 05-12-2023 02-14-2023 Episodic Maru-; endo-; and myocarditis; cardiomyopathy (except that caused by tuberculosis or sexually transmitted disease) (7 sources) Cardiomyopathy; Translations: [Cardiomyopathy, unspecified] 11-16-2023 Chronic Residual codes; unclassified (8 sources) Driving fitness status; Translations: [Other specified personal risk factors, not elsewhere classified] 04-26-2024 Episodic Residual codes; unclassified (7 sources) Bilateral lower limb edema; Translations: [Localized edema] 11-16-2023 Episodic Residual codes; unclassified (4 sources) Edema; Translations: [Edema, unspecified] 12-13-2024 Episodic Secondary malignancies (20 sources) Secondary malignant neoplasm of bone; 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 Secondary malignancies (19 sources) Secondary malignant neoplasm of bone; 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] Onset: 02-26-2023 02-24-2023 Chronic Secondary malignancies (2 sources) Secondary malignant neoplasm of genital organs; 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-2023 Chronic Skin and subcutaneous tissue infections (20 sources) Cellulitis of upper limb; Translations: [Cellulitis of left upper limb] 02-12-2023 Episodic Past or Other Problems Problem Classification Problem Date Documented Da te Episodic/Chronic Fracture of lower limb (1 source) Closed fracture of fibula; Translations: [Unspecified fracture of shaft of unspecified fibula, initial encounter for closed fracture] Onset: 12-24-2015 12-24-2015 Episodic Immunizations and screening for infectious disease (18 sources) Needs influenza immunization; Translations: [Encounter for immunization] Onset: 03-03-2024 04-06-2022 Episodic Mood disorders (2 sources) Mood disorders Onset: 03-12-2023 Resolved: 04-12-2023 03-12-2023 Nonspecific chest pain (1 source) Chest pain, unspecified; Translations: [Chest pain, unspecified] Onset: 06-26-2024 Episodic Other non-traumatic joint disorders (1 source) Pain in right hip; Translations: [Pain in right hip] Onset: 03-27-2024 Episodic Residual codes; unclassified (1 source) Localized edema; Translations: [Localized edema] Onset: 04-11-2024 Episodic Unclassified (2 sources) Onset: 03-12-2023 Resolved: 11-20-2023 10-20-2023 NEGATED: Highlighted row has been ruled out!Unclassified (2 sources) No known active problems 03-12-2023 Results Test Name Value Interpretation Reference Range Facility HIP, UNI W/ Pelvis 2-3 Views on 01-05-2025 HIP, UNI W/ Pelvis 2-3 Views Normal [facility] Orthopedic Visit Reporton Orthopedic Visit Report Normal [facility] Absolute lymphocyte countOrd ered By: Arin Weston on 01-02-2025 Lymphocytes Auto (Unsp spec) [#/Vol] 1.73 10*3/uL 0.83-4.51 [facility] Absolute neutrophil countOrd ered By: Arinpierre Weston on 01-02-2025 Neutrophils (Bld) [#/Vol] 2.8 10*3/uL 2.0-7.7 [facility] Anion gap in Serum or Plasma Ordered By: Arin Weston on 01-02-2025 Anion gap [Moles/Vol] 11 mmol/L 10-05 [facility] Automated lymphocyte count a s percentage of total leukocytesOrdered By: Arin Weston on 01-02-2025 Lymphocytes/100 WBC Auto (Unsp spec) 32.7 % [facility] BUN/creatinine ratioOrdered By: Arin Weston on 01-02-2025 Urea nitrogen/Creatinine [Mass ratio] 28.5 mg/mg High 03-12 [facility] Basophil percentageOrdered B y: Arin Weston on 01-02-2025 Basophils/100 WBC (Bld) 0.4 % 0- [facility] Bilirubin, totalOrdered By: Arin Weston on 01-02-2025 Bilirubin [Mass/Vol] 0.50 mg/dL 0.00-1.30 [facility] CBC W/Diff, Automatedon 12-22 Absolute Lymph 1.73 X10 3/uL Normal 0.83-4.51 [facility] Comment on above: Order Comment: 210 Performed By: #### L 500.4050, L501.9985, L501.5200, L501.9520, L506.1001, L500.4100, L100.0100 ####[facility] [address] [place], [address] Absolute Neut 2.8 X10 3/uL Normal 2.0-7.7 [facility] Comment on above: Order Comment: 210 Performed By: #### L 500.4050, L501.9985, L501.5200, L501.9520, L506.1001, L500.4100, L100.0100 ####[facility] [address] [place], [address] Basophils/100 WBC (Bld) 0.4 % Normal 0-1 [facility] Comment on above: Order Comment: 210 Performed By: #### L 500.4050, L501.9985, L501.5200, L501.9520, L506.1001, L500.4100, L100.0100 ####[facility] [address] [place], [address] Eosinophils/100 WBC (Bld) 3.6 % Normal 0-5 [facility] Comment on above: Order Comment: 210 Performed By: #### L 500.4050, L501.9985, L501.5200, L501.9520, L506.1001, L500.4100, L100.0100 ####[facility] [address] [place], [address] Erythrocyte distribution width (RBC) [Ratio] 14.6 % Normal 11.6-14.6 [facility] Comment on above: Order Comment: 210 Performed By: #### L 500.4050, L501.9985, L501.5200, L501.9520, L506.1001, L500.4100, L100.0100 ####[facility] [address] [place], [address] Hematocrit (Bld) [Volume fraction] 33.1 % Low 40-54 [facility] Comment on above: Order Comment: 210 Performed By: #### L 500.4050, L501.9985, L501.5200, L501.9520, L506.1001, L500.4100, L100.0100 ####[facility] [address] [place], [address] Hemoglobin (Bld) [Mass/Vol] 10.7 g/dL Low 13.0-16.5 [facility] Comment on above: Order Comment: 210 Performed By: #### L 500.4050, L501.9985, L501.5200, L501.9520, L506.1001, L500.4100, L100.0100 ####[facility] [address] [place], [address]( IG% 1.100 High 0.0-0.9 [facility] Comment on above: Order Comment: 210 Result Comment: IG% - Immature Granulocytes (promyelocytes, myelocytes andmetamyelocytes) > 1% indicates that a LEFT SHIFT is Present. Performed By: #### L 500.4050, L501.9985, L501.5200, L501.9520, L506.1001, L500.4100, L100.0100 ####[facility] [address] [place], [address] Lymphocytes/100 WBC (Bld) 32.7 % Normal 19-41 [facility] Comment on above: Order Comment: 210 Performed By: #### L 500.4050, L501.9985, L501.5200, L501.9520, L506.1001, L500.4100, L100.0100 ####[facility] [address] [place], [address] MCH (RBC) [Entitic mass] 35.0 pg High 27.0-32.0 [facility] Comment on above: Order Comment: 210 Performed By: #### L 500.4050, L501.9985, L501.5200, L501.9520, L506.1001, L500.4100, L100.0100 ####[facility] [address] [place], [address] MCHC (RBC) [Mass/Vol] 32.3 g/dL Normal 32-36 [facility] Comment on above: Order Comment: 210 Performed By: #### L 500.4050, L501.9985, L501.5200, L501.9520, L506.1001, L500.4100, L100.0100 ####[facility] [address] [place], [address] MCV (RBC) [Entitic vol] 108.2 fL High 80-94 [facility] Comment on above: Order Comment: 210 Performed By: #### L 500.4050, L501.9985, L501.5200, L501.9520, L506.1001, L500.4100, L100.0100 ####[facility] [address] [place], [address] Monocytes/100 WBC (Bld) 9.5 % Normal 0-10 [facility] Comment on above: Order Comment: 210 Performed By: #### L 500.4050, L501.9985, L501.5200, L501.9520, L506.1001, L500.4100, L100.0100 ####[facility] [address] [place], [address] Neutrophils/100 WBC (Bld) 52.7 % Normal 47-70 [facility] Comment on above: Order Comment: 210 Performed By: #### L 500.4050, L501.9985, L501.5200, L501.9520, L506.1001, L500.4100, L100.0100 ####[facility] [address] [place], [address] Nucleated RBC (Bld) [#/Vol] 0 10*3/uL Normal 0-5 [facility] Comment on above: Order Comment: 210 Performed By: #### L 500.4050, L501.9985, L501.5200, L501.9520, L506.1001, L500.4100, L100.0100 ####[facility] [address] [place], [address] Platelet mean volume (Bld) [Entitic vol] 9.1 fL Normal 6.2-12.0 [facility] Comment on above: Order Comment: 210 Performed By: #### L 500.4050, L501.9985, L501.5200, L501.9520, L506.1001, L500.4100, L100.0100 ####[facility] [address] [place], [address] Platelets (Bld) [#/Vol] 378 10*3/uL Normal 150-450 [facility] Comment on above: Order Comment: 210 Performed By: #### L 500.4050, L501.9985, L501.5200, L501.9520, L506.1001, L500.4100, L100.0100 ####[facility] [address] [place], [address] RBC (Bld) [#/Vol] 3.06 10*6/uL Low 4.6-6.2 [facility] Comment on above: Order Comment: 210 Performed By: #### L 500.4050, L501.9985, L501.5200, L501.9520, L506.1001, L500.4100, L100.0100 ####[facility] [address] [place], [address] RDW SD 57.1 fl High 35.1-43.9 [facility] Comment on above: Order Comment: 210 Performed By: #### L 500.4050, L501.9985, L501.5200, L501.9520, L506.1001, L500.4100, L100.0100 ####[facility] [address] [place], [address] WBC (Bld) [#/Vol] 5.3 10*3/uL Normal 4.4-11.0 [facility] Comment on above: Order Comment: 210 Performed By: #### L 500.4050, L501.9985, L501.5200, L501.9520, L506.1001, L500.4100, L100.0100 ####[facility] [address] [place], [address] Calculated very low density lipoprotein (VLDL) cholesterol measurementOrdered By: Arin Weston on 01-02-2025 Calculated very low density lipoprotein (VLDL) cholesterol measurement 19 mg/dL 5-40 [facility] Carbon dioxide, total [Moles /volume] in Central venous bloodOrdered By: Arin Weston on 01-02-2025 CO2 [Moles/Vol] 24.5 mmol/L 21.0-32.0 [facility] Chloride assayOrdered By: Lebron Weston on 01-02-2025 Chloride [Moles/Vol] 108 mmol/L 98-108 [facility] Comprehensive Metabolic Prof ilon 01-02-2025 Albumin [Mass/Vol] 3.2 g/dL Low 3.4-4.8 [facility] Comment on above: Order Comment: 210 Performed By: #### L 500.4050, L501.9985, L501.5200, L501.9520, L506.1001, L500.4100, L100.0100 ####[facility] [address] [place], [address] Albumin/Globulin [Mass ratio] 1.2 {ratio} Normal 0.9-2.4 [facility] Comment on above: Order Comment: 210 Performed By: #### L 500.4050, L501.9985, L501.5200, L501.9520, L506.1001, L500.4100, L100.0100 ####[facility] [address] [place], [address] ALK PHOS 64 U/L Normal 40-129 [facility] Comment on above: Order Comment: 210 Performed By: #### L 500.4050, L501.9985, L501.5200, L501.9520, L506.1001, L500.4100, L100.0100 ####[facility] [address] [place], [address] ALT [Catalytic activity/Vol] 8 U/L Normal <=46 [facility] Comment on above: Order Comment: 210 Performed By: #### L 500.4050, L501.9985, L501.5200, L501.9520, L506.1001, L500.4100, L100.0100 ####[facility] [address] [place], [address] AST [Catalytic activity/Vol] 15 U/L Normal <=37 [facility] Comment on above: Order Comment: 210 Performed By: #### L 500.4050, L501.9985, L501.5200, L501.9520, L506.1001, L500.4100, L100.0100 ####[facility] [address] [place], [address] Bilirubin [Mass/Vol] 0.50 mg/dL Normal 0.00-1.30 [facility] Comment on above: Order Comment: 210 Performed By: #### L 500.4050, L501.9985, L501.5200, L501.9520, L506.1001, L500.4100, L100.0100 ####[facility] [address] [place], [address] BUN/CRE 28.5 RATIO High 10-20 [facility] Comment on above: Order Comment: 210 Performed By: #### L 500.4050, L501.9985, L501.5200, L501.9520, L506.1001, L500.4100, L100.0100 ####[facility] [address] [place], [address] Calcium [Mass/Vol] 8.9 mg/dL Normal 7.6-11.0 [facility] Comment on above: Order Comment: 210 Performed By: #### L 500.4050, L501.9985, L501.5200, L501.9520, L506.1001, L500.4100, L100.0100 ####[facility] [address] [place], [address] Chloride [Moles/Vol] 108 mmol/L Normal 98-108 [facility] Comment on above: Order Comment: 210 Performed By: #### L 500.4050, L501.9985, L501.5200, L501.9520, L506.1001, L500.4100, L100.0100 ####[facility] [address] [place], [address] CO2 [Moles/Vol] 24.5 mmol/L Normal 21.0-32.0 [facility] Comment on above: Order Comment: 210 Performed By: #### L 500.4050, L501.9985, L501.5200, L501.9520, L506.1001, L500.4100, L100.0100 ####[facility] [address] [place], [address] Creatinine [Mass/Vol] 1.06 mg/dL Normal 0.70-1.20 [facility] Comment on above: Order Comment: 210 Performed By: #### L 500.4050, L501.9985, L501.5200, L501.9520, L506.1001, L500.4100, L100.0100 ####[facility] [address] [place], [address] GAP 11 Normal 5-15 [facility] Comment on above: Order Comment: 210 Performed By: #### L 500.4050, L501.9985, L501.5200, L501.9520, L506.1001, L500.4100, L100.0100 ####[facility] [address] [place], [address] GFR/1.73 sq M.predicted among non-blacks MDRD (S/P/Bld) [Vol rate/Area] 68 mL/min/{1.73_m2} Normal >60 [facility] Comment on above: Order Comment: 210 Result Comment: mL/m in/1.73m2 CKD-EPI Creatinine Equation (2020) Performed By: #### L 500.4050, L501.9985, L501.5200, L501.9520, L506.1001, L500.4100, L100.0100 ####[facility] [address] [place], [address] Globulin (S) [Mass/Vol] 2.7 g/dL Normal 2.2-4.2 [facility] Comment on above: Order Comment: 210 Performed By: #### L 500.4050, L501.9985, L501.5200, L501.9520, L506.1001, L500.4100, L100.0100 ####[facility] [address] [place], [address] Glucose [Mass/Vol] 91 mg/dL Normal 70-99 [facility] Comment on above: Order Comment: 210 Performed By: #### L 500.4050, L501.9985, L501.5200, L501.9520, L506.1001, L500.4100, L100.0100 ####[facility] [address] [place], [address] Potassium [Moles/Vol] 3.8 mmol/L Normal 3.3-5.1 [facility] Comment on above: Order Comment: 210 Performed By: #### L 500.4050, L501.9985, L501.5200, L501.9520, L506.1001, L500.4100, L100.0100 ####[facility] [address] [place], [address] Sodium [Moles/Vol] 144 mmol/L Normal 133-145 [facility] Comment on above: Order Comment: 210 Performed By: #### L 500.4050, L501.9985, L501.5200, L501.9520, L506.1001, L500.4100, L100.0100 ####[facility] [address] [place], [address] T PROT 5.9 g/dL Normal 5.9-8.4 [facility] Comment on above: Order Comment: 210 Performed By: #### L 500.4050, L501.9985, L501.5200, L501.9520, L506.1001, L500.4100, L100.0100 ####[facility] [address] [place], [address] Urea nitrogen [Mass/Vol] 30 mg/dL High 4-19 [facility] Comment on above: Order Comment: 210 Performed By: #### L 500.4050, L501.9985, L501.5200, L501.9520, L506.1001, L500.4100, L100.0100 ####[facility] [address] [place], [address] Eosinophil percentageOrdered By: Arin Weston on 01-02-2025 Eosinophils/100 WBC (Bld) 3.6 % 0-5 [facility] Erythrocyte distribution wid th ratioOrdered By: Arin Weston on 01-02-2025 Erythrocyte distribution width (RBC) [Ratio] 14.6 % 11.6-14.6 [facility] Erythrocyte distribution wid th standard deviationOrdered By: Arin Weston on 01-02-2025 Erythrocyte distribution width (RBC) [Ratio] 57.1 fl High 35.1-43.9 [facility] Glomerular filtration rate ( GFR) estimation/1.73 sq m using serum, plasma, or whole bOrdered By: Arin Weston on 01-02-2025 GFR/1.73 sq M.predicted among non-blacks MDRD (S/P/Bld) [Vol rate/Area] 68 mL/min/{1.73_m2} >60 [facility] Comment on above: mL/min/1.73m2 CKD-EP I Creatinine Equation (2020) Hematocrit Auto (Bld) [Volum e fraction]Ordered By: Arin Weston on 01-02-2025 Hematocrit (Bld) [Volume fraction] 33.1 % Low 40-54 [facility] Hemoglobin A1con 01-02-2025 HbA1c (Bld) [Mass fraction] 5.5 % Normal <=5.6 [facility] Comment on above: Order Comment: 210 Result Comment: Norm al < 5.7 % Prediabetic 5.7 - 6.4 % Diabetic >or= 6.5 % Please note range changes. Performed By: #### L 500.4050, L501.9985, L501.5200, L501.9520, L506.1001, L500.4100, L100.0100 ####[facility] [address] [place], [place], [address] Hemoglobin A1c percentageOrd ered By: Arin Weston on 01-02-2025 HbA1c (Bld) [Mass fraction] 5.5 % <5.7 [facility] Comment on above: Normal < 5.7 % Predi abetic 5.7 - 6.4 % Diabetic >or= 6.5 % Please note range changes. Hemoglobin measurementOrdere d By: Arin Weston on 01-02-2025 Hemoglobin (Bld) [Mass/Vol] 10.7 g/dL Low 13.0-16.5 [facility] Immature granulocytes/100 WB C Auto (Bld)Ordered By: Arin Weston on 01-02-2025 Immature granulocytes/100 WBC (Bld) 1.100 % High 0.0-0.9 [facility] Comment on above: IG% - Immature Granu locytes (promyelocytes, myelocytes and metamyelocytes) > 1% indicates that a LEFT SHIFT is Present. LDL calc ser/plasOrdered By: Arin Weston on 01-02-2025 Cholesterol in LDL [Mass/Vol] 52 mg/dL [facility] Comment on above: Ibqjueoaix=906-723 m g/dL & Higher Hbpo=100 mg/dL or greaterFriedwald Equation for LDL-C Laboratory - Chemistry and C hemistry - challengeOrdered By: Arin Weston on 01-02-2025 AST [Catalytic activity/Vol] 15 U/L <38 [facility] Lipid Profileon 01-02-2025 CHOL:HDL 2.39 Normal [facility] Comment on above: Order Comment: 210 Performed By: #### L 500.4050, L501.9985, L501.5200, L501.9520, L506.1001, L500.4100, L100.0100 ####[facility] [address] [place], [address] Cholesterol [Mass/Vol] 121 mg/dL Normal <=200 [facility] Comment on above: Order Comment: 210 Result Comment: Chol esterol level, Desirable <200 mg/dLBorderline high cholesterol 200-239 mg/dLHigh cholesterol >=240 mg/dLRecommendations of the NCEP Adult Treatment Panel for thefollowing risk-cutoff thresholds for the [place] Americanpulation. Performed By: #### L 500.4050, L501.9985, L501.5200, L501.9520, L506.1001, L500.4100, L100.0100 ####[facility] [address] [place], [address] Cholesterol in HDL [Mass/Vol] 51 mg/dL Normal [facility] Comment on above: Order Comment: 210 Result Comment: Kelly onal Cholesterol Education Program (NCEP) guidelines:<40 mg/dL: Low HDL-cholesterol (major risk factor for CHD)>= 60 mg/dL: High HDL-cholesterol (negative risk factor forCHD)HDL-cholesterol is affected by a number of factors, e.g.smoking, exercise, hormones, sex and age. Performed By: #### L 500.4050, L501.9985, L501.5200, L501.9520, L506.1001, L500.4100, L100.0100 ####[facility] [address] [place], [address] Cholesterol in LDL [Mass/Vol] 52 mg/dL Normal [facility] Comment on above: Order Comment: 210 Result Comment: Bord ppbhiv=921-803 mg/dL Higher Celq=882 mg/dL or greaterFriedwald Equation for LDL-C Performed By: #### L 500.4050, L501.9985, L501.5200, L501.9520, L506.1001, L500.4100, L100.0100 ####[facility] [address] [place], [address] Cholesterol in VLDL [Mass/Vol] 19 mg/dL Normal 5-40 [facility] Comment on above: Order Comment: 210 Performed By: #### L 500.4050, L501.9985, L501.5200, L501.9520, L506.1001, L500.4100, L100.0100 ####[facility] [address] [place], [address] Triglyceride [Mass/Vol] 93 mg/dL Normal [facility] Comment on above: Order Comment: 210 Result Comment: The drugs N-Acetylcysteine and Metamizole may falselydepress this assay.Normal range: <150 mg/dLBorderline High: 150-199 mg/dLHigh: 200-499 mg/dLVery High: >500 mg/dL Performed By: #### L 500.4050, L501.9985, L501.5200, L501.9520, L506.1001, L500.4100, L100.0100 ####[facility] [address] [place], [address] MCV (mean corpuscular volume ) determinationOrdered By: Arin Weston on 01-02-2025 MCV (RBC) [Entitic vol] 108.2 fL High 80-94 [facility] Magnesiumon 01-02-2025 Magnesium [Mass/Vol] 2.5 mg/dL High 1.5-2.2 [facility] Comment on above: Order Comment: 210 Performed By: #### L 500.4050, L501.9985, L501.5200, L501.9520, L506.1001, L500.4100, L100.0100 ####[facility] [address] [facility] [place], [address] Magnesium measurement (mass/ volume)Ordered By: Arin Weston on 01-02-2025 Magnesium (Unsp spec) [Mass/Vol] 2.5 mg/dL High 1.5-2.2 [facility] Mean corpuscular hemoglobin (MCH) determinationOrdered By: Arni Weston on 01-02-2025 MCH (RBC) [Entitic mass] 35.0 pg High 27.0-32.0 [facility] Mean corpuscular hemoglobin concentration (MCHC) determinationOrdered By: Arin Weston on 01-02-2025 MCHC (RBC) [Mass/Vol] 32.3 g/dL 32-36 [facility] Mean platelet volume determi nationOrdered By: Arin Weston on 01-02-2025 Platelet mean volume (Bld) [Entitic vol] 9.1 fL 6.2-12.0 [facility] Monocyte percentageOrdered B y: Arin Weston on 01-02-2025 Monocytes/100 WBC (Bld) 9.5 % 0-10 [facility] Neutrophil percentageOrdered By: Arin Weston on 01-02-2025 Neutrophils/100 WBC (Bld) 52.7 % 47-70 [facility] Nucleated red blood cell per centageOrdered By: Arin Weston on 01-02-2025 Nucleated RBC/100 WBC (Bld) [Ratio] 0 % 0-5 [facility] Platelet countOrdered By: Lebron Weston on 01-02-2025 Platelets (Bld) [#/Vol] 378 10*3/uL 150-450 [facility] Potassium measurement (mass/ volume)Ordered By: Arin Weston on 01-02-2025 Potassium (Unsp spec) [Mass/Vol] 3.8 mmol/L 3.3-5.1 [facility] RBC Auto (Bld) [#/Vol]Ordere d By: Arin Weston on 01-02-2025 RBC (Bld) [#/Vol] 3.06 10*6/uL Low 4.6-6.2 [facility] Screening total cholesterol/ high density lipoprotein (HDL) cholesterol ratioOrdered By: Arin Weston on 01-02-2025 Cholesterol.total/Choles terol in HDL [Mass ratio] 2.39 {ratio} [facility] Serum creatinine measurement (mass/volume)Ordered By: Arin Weston on 01-02-2025 Creatinine [Mass/Vol] 1.06 mg/dL 0.70-1.20 [facility] Serum globulin measurementOr dered By: Arin Weston on 01-02-2025 Globulin (S) [Mass/Vol] 2.7 g/dL 2.2-4.2 [facility] Serum glucose measurement (m ass/volume)Ordered By: Arin Weston on 01-02-2025 Glucose [Mass/Vol] 91 mg/dL 70-99 [facility] Serum or plasma alanine rausch otransferase (ALT) measurementOrdered By: Arin Weston on 01-02-2025 ALT [Catalytic activity/Vol] 8 U/L <47 [facility] Serum or plasma albumin patricia urement (mass/volume)Ordered By: Arin Weston on 01-02-2025 Albumin [Mass/Vol] 3.2 g/dL Low 3.4-4.8 [facility] Serum or plasma albumin/glob ulin mass ratioOrdered By: Arin Weston on 01-02-2025 Albumin/Globulin [Mass ratio] 1.2 {ratio} 0.9-2.4 [facility] Serum or plasma alkaline martín sphatase measurementOrdered By: Arin Weston on 01-02-2025 ALP [Catalytic activity/Vol] 64 U/L 40-129 [facility] Serum or plasma calcium patricia urement (mass/volume)Ordered By: Arin Weston on 01-02-2025 Calcium [Mass/Vol] 8.9 mg/dL 7.6-11.0 [facility] Serum or plasma cholesterol in HDL measurement (mass/volume)Ordered By: Arin Weston on 01-02-2025 Cholesterol in HDL [Mass/Vol] 51 mg/dL >40 [facility] Comment on above: National Cholesterol Education Program (NCEP) guidelines:<40 mg/dL: Low HDL-cholesterol (major risk factor for CHD)>= 60 mg/dL: High HDL-cholesterol (negative risk factor for CHD)HDL-cholesterol is affected by a number of factors, e.g. smoking, exercise, hormones, sex and age. Serum or plasma cholesterol measurement (mass/volume)Ordered By: Arin Weston on 01-02-2025 Cholesterol [Mass/Vol] 121 mg/dL <201 [facility] Comment on above: Cholesterol level, D esirable <200 mg/dLBorderline high cholesterol 200-239 mg/dLHigh cholesterol >=240 mg/dLRecommendations of the NCEP Adult Treatment Panel for the following risk-cutoff thresholds for the [place] population. Serum or plasma urea nitroge n measurement (mass/volume)Ordered By: Arin Weston on 01-02-2025 Urea nitrogen [Mass/Vol] 30 mg/dL High 4-19 [facility] Sodium levelOrdered By: Chapo Weston on 01-02-2025 Sodium [Moles/Vol] 144 mmol/L 133-145 [facility] TSH DL <= 0.005 mIU/L QnOrde red By: Arin Weston on 01-02-2025 TSH Qn 1.620 uIU/mL 0.300-4.200 [facility] Thyroid Stim Hormone (TSH)on 01-02-2025 TSH 1.620 uIU/mL Normal 0.300-4.200 [facility] Comment on above: Order Comment: 210 Performed By: #### L 500.4050, L501.9985, L501.5200, L501.9520, L506.1001, L500.4100, L100.0100 ####[facility] [address] [place], [place], [id number] Total proteinOrdered By: Hari Weston on 01-02-2025 Protein [Mass/Vol] 5.9 g/dL 5.9-8.4 [facility] Triglycerides measurementOrd ered By: Arin Weston on 01-02-2025 Triglyceride [Mass/Vol] 93 mg/dL <199 [facility] Comment on above: The drugs N-Acetylcy steine and Metamizole may falsely depress this assay. Normal range: <150 mg/dLBorderline High: 150-199 mg/dLHigh: 200-499 mg/dLVery High: >500 mg/dL Vitamin D,25 Hydroxyon 01-02 Vitamin D 25-OH 14.1 ng/mL Low 30-100 [facility] Comment on above: Order Comment: 210 Result Comment: Marita min D StatusDeficiency: <20 ng/mL (50nmol/L)Insufficiency: 20-30 ng/mL (50-75 nmol/L)Sufficiency: 30-100 ng/mL (75-250 nmol/L)Toxicity: >100 ng/mL (>250 nmol/L) Performed By: #### L 500.4050, L501.9985, L501.5200, L501.9520, L506.1001, L500.4100, L100.0100 ####[facility] [address] [place], [place], [id number] White blood cell (WBC) count Ordered By: Arin Weston on 01-02-2025 WBC (Bld) [#/Vol] 5.3 10*3/uL 4.4-11.0 [facility] Absolute lymphocyte countOrd ered By: Arin Weston on 12-26-2024 Lymphocytes Auto (Unsp spec) [#/Vol] 2.08 10*3/uL 0.83-4.51 [facility] Absolute neutrophil countOrd ered By: Arin Weston on 12-26-2024 Neutrophils (Bld) [#/Vol] 2.6 10*3/uL 2.0-7.7 [facility] Anion gap in Serum or Plasma Ordered By: Arin Weston on 12-26-2024 Anion gap [Moles/Vol] 10 mmol/L 5-15 [facility] Automated lymphocyte count a s percentage of total leukocytesOrdered By: rAin Weston on 12-26-2024 Lymphocytes/100 WBC Auto (Unsp spec) 38.0 % 19-41 [facility] BUN/creatinine ratioOrdered By: Arin Weston on 12-26-2024 Urea nitrogen/Creatinine [Mass ratio] 26.8 mg/mg High 10-20 [facility] Basic Metabolic Profile (BMP )on 12-26-2024 BUN/CRE 26.8 RATIO High 10-20 [facility] Comment on above: Order Comment: 210 Performed By: #### L 100.0100, L500.2500 ####[facility] [address] [place], [address] Calcium [Mass/Vol] 8.4 mg/dL Normal 7.6-11.0 [facility] Comment on above: Order Comment: 210 Performed By: #### L 100.0100, L500.2500 ####[facility] [address] [place], [address] Chloride [Moles/Vol] 110 mmol/L High 98-108 [facility] Comment on above: Order Comment: 210 Performed By: #### L 100.0100, L500.2500 ####[facility] [address] [place], [address] CO2 [Moles/Vol] 24.6 mmol/L Normal 21.0-32.0 [facility] Comment on above: Order Comment: 210 Performed By: #### L 100.0100, L500.2500 ####[facility] [address] [place], [address] Creatinine [Mass/Vol] 0.94 mg/dL Normal 0.70-1.20 [facility] Comment on above: Order Comment: 210 Performed By: #### L 100.0100, L500.2500 ####[facility] [address] [place], [address] GAP 10 Normal 5-15 [facility] Comment on above: Order Comment: 210 Performed By: #### L 100.0100, L500.2500 ####[facility] [address] [place], [address] GFR/1.73 sq M.predicted among non-blacks MDRD (S/P/Bld) [Vol rate/Area] 78 mL/min/{1.73_m2} Normal >60 [facility] Comment on above: Order Comment: 210 Result Comment: mL/m in/1.73m2 CKD-EPI Creatinine Equation (2020) Performed By: #### L 100.0100, L500.2500 ####[facility] [address] [place], [address] Glucose [Mass/Vol] 103 mg/dL High 70-99 [facility] Comment on above: Order Comment: 210 Performed By: #### L 100.0100, L500.2500 ####[facility] [address] [place], [address] Potassium [Moles/Vol] 4.1 mmol/L Normal 3.3-5.1 [facility] Comment on above: Order Comment: 210 Performed By: #### L 100.0100, L500.2500 ####[facility] [address] [place], [address] Sodium [Moles/Vol] 144 mmol/L Normal 133-145 [facility] Comment on above: Order Comment: 210 Performed By: #### L 100.0100, L500.2500 ####[facility] [address] [place], [address] Urea nitrogen [Mass/Vol] 25 mg/dL High 4-19 [facility] Comment on above: Order Comment: 210 Performed By: #### L 100.0100, L500.2500 ####[facility] [address] [place], [address] Basophil percentageOrdered B y: Arin Ralfoscarroland on 12-26-2024 Basophils/100 WBC (Bld) 0.4 % 0-1 [facility] CBC W/Diff, Automatedon Absolute Lymph 2.08 X10 3/uL Normal 0.83-4.51 [facility] Comment on above: Order Comment: 210 Performed By: #### L 100.0100, L500.2500 ####[facility] [address] [place], [address] Absolute Neut 2.6 X10 3/uL Normal 2.0-7.7 [facility] Comment on above: Order Comment: 210 Performed By: #### L 100.0100, L500.2500 ####[facility] [address] [place], [address] Basophils/100 WBC (Bld) 0.4 % Normal 0-1 [facility] Comment on above: Order Comment: 210 Performed By: #### L 100.0100, L500.2500 ####[facility] [address] [place], [address] Eosinophils/100 WBC (Bld) 2.7 % Normal 0-5 [facility] Comment on above: Order Comment: 210 Performed By: #### L 100.0100, L500.2500 ####[facility] [address] [place], [address] Erythrocyte distribution width (RBC) [Ratio] 13.5 % Normal 11.6-14.6 [facility] Comment on above: Order Comment: 210 Performed By: #### L 100.0100, L500.2500 ####[facility] [address] [place], [address] Hematocrit (Bld) [Volume fraction] 29.9 % Low 40-54 [facility] Comment on above: Order Comment: 210 Performed By: #### L 100.0100, L500.2500 ####[facility] [address] [place], [address] Hemoglobin (Bld) [Mass/Vol] 9.8 g/dL Low 13.0-16.5 [facility] Comment on above: Order Comment: 210 Performed By: #### L 100.0100, L500.2500 ####[facility] [address] [place], [address] IG% 2.000 High 0.0-0.9 [facility] Comment on above: Order Comment: 210 Result Comment: IG% - Immature Granulocytes (promyelocytes, myelocytes andmetamyelocytes) > 1% indicates that a LEFT SHIFT is Present. Performed By: #### L 100.0100, L500.2500 ####[facility] [address] [place], [address] Lymphocytes/100 WBC (Bld) 38.0 % Normal 19-41 [facility] Comment on above: Order Comment: 210 Performed By: #### L 100.0100, L500.2500 ####[facility] [address] [place], [address] MCH (RBC) [Entitic mass] 34.5 pg High 27.0-32.0 [facility] Comment on above: Order Comment: 210 Performed By: #### L 100.0100, L500.2500 ####[facility] [address] [place], [address] MCHC (RBC) [Mass/Vol] 32.8 g/dL Normal 32-36 [facility] Comment on above: Order Comment: 210 Performed By: #### L 100.0100, L500.2500 ####[facility] [address] [place], [address] MCV (RBC) [Entitic vol] 105.3 fL High 80-94 [facility] Comment on above: Order Comment: 210 Performed By: #### L 100.0100, L500.2500 ####[facility] [address] [place], [address] Monocytes/100 WBC (Bld) 9.3 % Normal 0-10 [facility] Comment on above: Order Comment: 210 Performed By: #### L 100.0100, L500.2500 ####[facility] [address] [place], [address] Neutrophils/100 WBC (Bld) 47.6 % Normal 47-70 [facility] Comment on above: Order Comment: 210 Performed By: #### L 100.0100, L500.2500 ####[facility] [address] [place], [address] Nucleated RBC (Bld) [#/Vol] 0 10*3/uL Normal 0-5 [facility] Comment on above: Order Comment: 210 Performed By: #### L 100.0100, L500.2500 ####[facility] [address] [place], [address] Platelet mean volume (Bld) [Entitic vol] 9.7 fL Normal 6.2-12.0 [facility] Comment on above: Order Comment: 210 Performed By: #### L 100.0100, L500.2500 ####[facility] [address] [place], [address] Platelets (Bld) [#/Vol] 250 10*3/uL Normal 150-450 [facility] Comment on above: Order Comment: 210 Performed By: #### L 100.0100, L500.2500 ####[facility] [address] [place], [address] RBC (Bld) [#/Vol] 2.84 10*6/uL Low 4.6-6.2 [facility] Comment on above: Order Comment: 210 Performed By: #### L 100.0100, L500.2500 ####[facility] [address] [place], [address] RDW SD 52.7 fl High 35.1-43.9 [facility] Comment on above: Order Comment: 210 Performed By: #### L 100.0100, L500.2500 ####[facility] [address] [place], [address] WBC (Bld) [#/Vol] 5.5 10*3/uL Normal 4.4-11.0 [facility] Comment on above: Order Comment: 210 Performed By: #### L 100.0100, L500.2500 ####[facility] [address] [place], [address] Carbon dioxide, total [Moles /volume] in Central venous bloodOrdered By: Arin Weston on 12-26-2024 CO2 [Moles/Vol] 24.6 mmol/L 21.0-32.0 [facility] Chloride assayOrdered By: Lebron Weston on 12-26-2024 Chloride [Moles/Vol] 110 mmol/L High 98-108 [facility] Eosinophil percentageOrdered By: Arin Weston on 12-26-2024 Eosinophils/100 WBC (Bld) 2.7 % 0-5 [facility] Erythrocyte distribution wid th ratioOrdered By: Arin Weston on 12-26-2024 Erythrocyte distribution width (RBC) [Ratio] 13.5 % 11.6-14.6 [facility] Erythrocyte distribution wid th standard deviationOrdered By: Arin Weston on 12-26-2024 Erythrocyte distribution width (RBC) [Ratio] 52.7 fl High 35.1-43.9 [facility] Glomerular filtration rate ( GFR) estimation/1.73 sq m using serum, plasma, or whole bOrdered By: Arin Weston on 12-26-2024 GFR/1.73 sq M.predicted among non-blacks MDRD (S/P/Bld) [Vol rate/Area] 78 mL/min/{1.73_m2} >60 [facility] Comment on above: mL/min/1.73m2 CKD-EP I Creatinine Equation (2020) Hematocrit Auto (Bld) [Volum e fraction]Ordered By: Arin Weston on 12-26-2024 Hematocrit (Bld) [Volume fraction] 29.9 % Low 40-54 [facility] Hemoglobin measurementOrdere d By: Arin Weston on 12-26-2024 Hemoglobin (Bld) [Mass/Vol] 9.8 g/dL Low 13.0-16.5 [facility] Immature granulocytes/100 WB C Auto (Bld)Ordered By: Arin Weston on 12-26-2024 Immature granulocytes/100 WBC (Bld) 2.000 % High 0.0-0.9 [facility] Comment on above: IG% - Immature Granu locytes (promyelocytes, myelocytes and metamyelocytes) > 1% indicates that a LEFT SHIFT is Present. MCV (mean corpuscular volume ) determinationOrdered By: Arin Weston on 12-26-2024 MCV (RBC) [Entitic vol] 105.3 fL High 80-94 [facility] Mean corpuscular hemoglobin (MCH) determinationOrdered By: Arin Weston on 12-26-2024 MCH (RBC) [Entitic mass] 34.5 pg High 27.0-32.0 [facility] Mean corpuscular hemoglobin concentration (MCHC) determinationOrdered By: Arin Weston on 12-26-2024 MCHC (RBC) [Mass/Vol] 32.8 g/dL 32-36 [facility] Mean platelet volume determi nationOrdered By: Arin eWston on 12-26-2024 Platelet mean volume (Bld) [Entitic vol] 9.7 fL 6.2-12.0 [facility] Monocyte percentageOrdered B y: Arin Weston on 12-26-2024 Monocytes/100 WBC (Bld) 9.3 % 0-10 [facility] Neutrophil percentageOrdered By: Arin Weston on 12-26-2024 Neutrophils/100 WBC (Bld) 47.6 % 47-70 [facility] Nucleated red blood cell per centageOrdered By: Arin Weston on 12-26-2024 Nucleated RBC/100 WBC (Bld) [Ratio] 0 % 0-5 [facility] Platelet countOrdered By: Lebron Weston on 12-26-2024 Platelets (Bld) [#/Vol] 250 10*3/uL 150-450 [facility] Potassium measurement (mass/ volume)Ordered By: Arin Weston on 12-26-2024 Potassium (Unsp spec) [Mass/Vol] 4.1 mmol/L 3.3-5.1 [facility] RBC Auto (Bld) [#/Vol]Ordere d By: Arin Weston on 12-26-2024 RBC (Bld) [#/Vol] 2.84 10*6/uL Low 4.6-6.2 [facility] Serum creatinine measurement (mass/volume)Ordered By: Arin Weston on 12-26-2024 Creatinine [Mass/Vol] 0.94 mg/dL 0.70-1.20 [facility] Serum glucose measurement (m ass/volume)Ordered By: Arin Weston on 12-26-2024 Glucose [Mass/Vol] 103 mg/dL High 70-99 [facility] Serum or plasma calcium patricia urement (mass/volume)Ordered By: Arin Weston on 12-26-2024 Calcium [Mass/Vol] 8.4 mg/dL 7.6-11.0 [facility] Serum or plasma urea nitroge n measurement (mass/volume)Ordered By: Arin Weston on 12-26-2024 Urea nitrogen [Mass/Vol] 25 mg/dL High 4-19 [facility] Sodium levelOrdered By: Chapo Weston on 12-26-2024 Sodium [Moles/Vol] 144 mmol/L 133-145 [facility] White blood cell (WBC) count Ordered By: Arin Weston on 12-26-2024 WBC (Bld) [#/Vol] 5.5 10*3/uL 4.4-11.0 [facility] Anion gap in Serum or Plasma Ordered By: Radha Cope on 12-24-2024 Anion gap [Moles/Vol] 10 mmol/L 5-15 [facility] BUN/creatinine ratioOrdered By: Radha Cope on 12-24-2024 Urea nitrogen/Creatinine [Mass ratio] 38.0 mg/mg High 10- [facility] Basic Metabolic Profile (BMP )on 12-24-2024 BUN/CRE 38.0 RATIO High - [facility] Comment on above: Performed By: #### L 100.0500, L500.2500 ####[facility] [address] [place], [address] Calcium [Mass/Vol] 8.1 mg/dL Normal 7.6-11.0 [facility] Comment on above: Performed By: #### L 100.0500, L500.2500 ####[facility] [address] [place], [address] Chloride [Moles/Vol] 113 mmol/L High 98-108 [facility] Comment on above: Performed By: #### L 100.0500, L500.2500 ####[facility] [address] [place], [address] CO2 [Moles/Vol] 21.8 mmol/L Normal 21.0-32.0 [facility] Comment on above: Performed By: #### L 100.0500, L500.2500 ####[facility] [address] [place], [address] Creatinine [Mass/Vol] 0.97 mg/dL Normal 0.70-1.20 [facility] Comment on above: Performed By: #### L 100.0500, L500.2500 ####[facility] [address] [place], [address] ECRCL 55.40 ml/min Normal 50-250 [facility] Comment on above: Performed By: #### L 100.0500, L500.2500 ####[facility] [address] [place], [address] GAP 10 Normal 5-15 [facility] Comment on above: Performed By: #### L 100.0500, L500.2500 ####[facility] [address] [place], [address] GFR/1.73 sq M.predicted among non-blacks MDRD (S/P/Bld) [Vol rate/Area] 76 mL/min/{1.73_m2} Normal >60 [facility] Comment on above: Result Comment: mL/m in/1.73m2 CKD-EPI Creatinine Equation (2020) Performed By: #### L 100.0500, L500.2500 ####[facility] [address] [place], [address] Glucose [Mass/Vol] 98 mg/dL Normal 70-99 [facility] Comment on above: Performed By: #### L 100.0500, L500.2500 ####[facility] [address] [place], [address] Potassium [Moles/Vol] 3.9 mmol/L Normal 3.3-5.1 [facility] Comment on above: Performed By: #### L 100.0500, L500.2500 ####[facility] [address] [place], [address] Sodium [Moles/Vol] 144 mmol/L Normal 133-145 [facility] Comment on above: Performed By: #### L 100.0500, L500.2500 ####[facility] [address] [place], [address] Urea nitrogen [Mass/Vol] 37 mg/dL High 4-19 [facility] Comment on above: Performed By: #### L 100.0500, L500.2500 ####[facility] [address] [place], [address] CBC-Complete Blood Cnt No Di ffon 12-24-2024 Erythrocyte distribution width (RBC) [Ratio] 13.2 % Normal 11.6-14.6 [facility] Comment on above: Performed By: #### L 100.0500, L500.2500 ####[facility] [address] [place], [address] Hematocrit (Bld) [Volume fraction] 28.0 % Low 40-54 [facility] Comment on above: Performed By: #### L 100.0500, L500.2500 ####[facility] [address] [place], [address] Hemoglobin (Bld) [Mass/Vol] 9.4 g/dL Low 13.0-16.5 [facility] Comment on above: Performed By: #### L 100.0500, L500.2500 ####[facility] [address] [place], [address] MCH (RBC) [Entitic mass] 34.7 pg High 27.0-32.0 [facility] Comment on above: Performed By: #### L 100.0500, L500.2500 ####[facility] [address] [place], [address] MCHC (RBC) [Mass/Vol] 33.6 g/dL Normal 32-36 [facility] Comment on above: Performed By: #### L 100.0500, L500.2500 ####[facility] [address] [place], [address] MCV (RBC) [Entitic vol] 103.3 fL High 80-94 [facility] Comment on above: Performed By: #### L 100.0500, L500.2500 ####[facility] [address] [place], [address] Platelet mean volume (Bld) [Entitic vol] 9.6 fL Normal 6.2-12.0 [facility] Comment on above: Performed By: #### L 100.0500, L500.2500 ####[facility] [address] [place], [address] Platelets (Bld) [#/Vol] 187 10*3/uL Normal 150-450 [facility] Comment on above: Performed By: #### L 100.0500, L500.2500 ####[facility] [address] [place], [address] RBC (Bld) [#/Vol] 2.71 10*6/uL Low 4.6-6.2 [facility] Comment on above: Performed By: #### L 100.0500, L500.2500 ####[facility] [address] [place], [address] RDW SD 50.4 fl High 35.1-43.9 [facility] Comment on above: Performed By: #### L 100.0500, L500.2500 ####[facility] [address] [place], [address] WBC (Bld) [#/Vol] 5.4 10*3/uL Normal 4.4-11.0 [facility] Comment on above: Performed By: #### L 100.0500, L500.2500 ####[facility] [address] [place], [address] Carbon dioxide, total [Moles /volume] in Central venous bloodOrdered By: Radha Cope on 12-24-2024 CO2 [Moles/Vol] 21.8 mmol/L 21.0-32.0 [facility] Chloride assayOrdered By: Heather Cope on 12-24-2024 Chloride [Moles/Vol] 113 mmol/L High 98-108 [facility] Erythrocyte distribution wid th ratioOrdered By: Radha Cope on 12-24-2024 Erythrocyte distribution width (RBC) [Ratio] 13.2 % 11.6-14.6 [facility] Erythrocyte distribution wid th standard deviationOrdered By: Radha Cope on 12-24-2024 Erythrocyte distribution width (RBC) [Ratio] 50.4 fl High 35.1-43.9 [facility] Glomerular filtration rate ( GFR) estimation/1.73 sq m using serum, plasma, or whole bOrdered By: Radha Cope on 12-24-2024 GFR/1.73 sq M.predicted among non-blacks MDRD (S/P/Bld) [Vol rate/Area] 76 mL/min/{1.73_m2} >60 [facility] Comment on above: mL/min/1.73m2 CKD-EP I Creatinine Equation (2020) Hematocrit Auto (Bld) [Volum e fraction]Ordered By: Radha Cope on 12-24-2024 Hematocrit (Bld) [Volume fraction] 28.0 % Low 40-54 [facility] Hemoglobin measurementOrdere d By: Radha Cope on 12-24-2024 Hemoglobin (Bld) [Mass/Vol] 9.4 g/dL Low 13.0-16.5 [facility] MCV (mean corpuscular volume ) determinationOrdered By: Radha Cope on 12-24-2024 MCV (RBC) [Entitic vol] 103.3 fL High 80-94 [facility] Mean corpuscular hemoglobin (MCH) determinationOrdered By: Radha Cope on 12-24-2024 MCH (RBC) [Entitic mass] 34.7 pg High 27.0-32.0 [facility] Mean corpuscular hemoglobin concentration (MCHC) determinationOrdered By: Radha Cope on 12-24-2024 MCHC (RBC) [Mass/Vol] 33.6 g/dL 32-36 [facility] Mean platelet volume determi nationOrdered By: Radha Cope on 12-24-2024 Platelet mean volume (Bld) [Entitic vol] 9.6 fL 6.2-12.0 [facility] Platelet countOrdered By: Heather Cope on 12-24-2024 Platelets (Bld) [#/Vol] 187 10*3/uL 150-450 [facility] Potassium measurement (mass/ volume)Ordered By: Radha Cope on 12-24-2024 Potassium (Unsp spec) [Mass/Vol] 3.9 mmol/L 3.3-5.1 [facility] RBC Auto (Bld) [#/Vol]Ordere d By: Radha Cope on 12-24-2024 RBC (Bld) [#/Vol] 2.71 10*6/uL Low 4.6-6.2 [facility] Serum creatinine measurement (mass/volume)Ordered By: Radha Cope on 12-24-2024 Creatinine [Mass/Vol] 0.97 mg/dL 0.70-1.20 [facility] Serum glucose measurement (m ass/volume)Ordered By: Radha Cope on 12-24-2024 Glucose [Mass/Vol] 98 mg/dL 70-99 [facility] Serum or plasma calcium patricia urement (mass/volume)Ordered By: Radha Cope on 12-24-2024 Calcium [Mass/Vol] 8.1 mg/dL 7.6-11.0 [facility] Serum or plasma urea nitroge n measurement (mass/volume)Ordered By: Radha Cope on 12-24-2024 Urea nitrogen [Mass/Vol] 37 mg/dL High 4-19 [facility] Sodium levelOrdered By: Sola Cope on 12-24-2024 Sodium [Moles/Vol] 144 mmol/L 133-145 [facility] White blood cell (WBC) count Ordered By: Radha Cope on 12-24-2024 WBC (Bld) [#/Vol] 5.4 10*3/uL 4.4-11.0 [facility] Basic Metabolic Profile (BMP )on 12-22-2024 BUN/CRE 36.6 RATIO High 10-20 [facility] Comment on above: Performed By: #### L 500.2500 ####[facility] [address] [place], [address] Calcium [Mass/Vol] 8.2 mg/dL Normal 7.6-11.0 [facility] Comment on above: Performed By: #### L 500.2500 ####[facility] [address] [place], [address] Chloride [Moles/Vol] 110 mmol/L High 98-108 [facility] Comment on above: Performed By: #### L 500.2500 ####[facility] [address] [place], [address] CO2 [Moles/Vol] 19.9 mmol/L Low 21.0-32.0 [facility] Comment on above: Performed By: #### L 500.2500 ####[facility] [address] [place], [address] Creatinine [Mass/Vol] 1.09 mg/dL Normal 0.70-1.20 [facility] Comment on above: Performed By: #### L 500.2500 ####[facility] [address] [place], [address] ECRCL 49.30 ml/min Low 50-250 [facility] Comment on above: Performed By: #### L 500.2500 ####[facility] [address] [place], [address] GAP 11 Normal 5-15 [facility] Comment on above: Performed By: #### L 500.2500 ####[facility] [address] [place], [address] GFR/1.73 sq M.predicted among non-blacks MDRD (S/P/Bld) [Vol rate/Area] 66 mL/min/{1.73_m2} Normal >60 [facility] Comment on above: Result Comment: mL/m in/1.73m2 CKD-EPI Creatinine Equation (2020) Performed By: #### L 500.2500 ####[facility] [address] [place], [address] Glucose [Mass/Vol] 81 mg/dL Normal 70-99 [facility] Comment on above: Performed By: #### L 500.2500 ####[facility] [address] [place], [address] Potassium [Moles/Vol] 3.9 mmol/L Normal 3.3-5.1 [facility] Comment on above: Performed By: #### L 500.2500 ####[facility] [address] [place], [address] Sodium [Moles/Vol] 140 mmol/L Normal 133-145 [facility] Comment on above: Performed By: #### L 500.2500 ####[facility] [address] [place], [address] Urea nitrogen [Mass/Vol] 40 mg/dL High 4-19 [facility] Comment on above: Performed By: #### L 500.2500 ####[facility] [address] [place], [address] CBC-Complete Blood [facility]nt [facility] Erythrocyte distribution width (RBC) [Ratio] 13.2 % Normal 11.6-14.6 [facility] Comment on above: Performed By: #### L 100.0500 ####[facility] [address] [place], [address] Hematocrit (Bld) [Volume fraction] 28.3 % Low 40-54 [facility] Comment on above: Performed By: #### L 100.0500 ####[facility] [address] [place], [address] Hemoglobin (Bld) [Mass/Vol] 9.5 g/dL Low 13.0-16.5 [facility] Comment on above: Performed By: #### L 100.0500 ####[facility] [address] [place] [facility] [place], [address] MCH (RBC) [Entitic mass] 34.8 pg High 27.0-32.0 [facility] Comment on above: Performed By: #### L 100.0500 ####[facility] [address] [place], [address] MCHC (RBC) [Mass/Vol] 33.6 g/dL Normal 32-36 [facility] Comment on above: Performed By: #### L 100.0500 ####[facility] [address] [place], [address] MCV (RBC) [Entitic vol] 103.7 fL High 80-94 [facility] Comment on above: Performed By: #### L 100.0500 ####[facility] [address] [place], [address] Platelet mean volume (Bld) [Entitic vol] 9.9 fL Normal 6.2-12.0 [facility] Comment on above: Performed By: #### L 100.0500 ####[facility] [address] [place], [address] Platelets (Bld) [#/Vol] 134 10*3/uL Low 150-450 [facility] Comment on above: Performed By: #### L 100.0500 ####[facility] [address] [place], [address] RBC (Bld) [#/Vol] 2.73 10*6/uL Low 4.6-6.2 [facility] Comment on above: Performed By: #### L 100.0500 ####[facility] [address] [place], [address] RDW SD 50.1 fl High 35.1-43.9 [facility] Comment on above: Performed By: #### L 100.0500 ####[facility] [address] [place], [address] WBC (Bld) [#/Vol] 6.9 10*3/uL Normal 4.4-11.0 [facility] Comment on above: Performed By: #### L 100.0500 ####[facility] [address] [place], [address] Hemoglobinon 12-22-2024 Hemoglobin (Bld) [Mass/Vol] 10.0 g/dL Low 13.0-16.5 [facility] Comment on above: Performed By: #### L 100.1300 ####[facility] [address] [place], [address] Basic Metabolic Profile (BMP )on 12-21-2024 BUN/CRE 32.2 RATIO High 10-20 [facility] Comment on above: Performed By: #### L 500.2500 ####[facility] [address] [place], [address] Calcium [Mass/Vol] 8.4 mg/dL Normal 7.6-11.0 [facility] Comment on above: Performed By: #### L 500.2500 ####[facility] [address] [place], [address] Chloride [Moles/Vol] 106 mmol/L Normal 98-108 [facility] Comment on above: Performed By: #### L 500.2500 ####[facility] [address] [place], [address] CO2 [Moles/Vol] 22.8 mmol/L Normal 21.0-32.0 [facility] Comment on above: Performed By: #### L 500.2500 ####[facility] [address] [place], [address] Creatinine [Mass/Vol] 1.53 mg/dL High 0.70-1.20 [facility] Comment on above: Performed By: #### L 500.2500 ####[facility] [address] [place], [address] ECRCL 35.12 ml/min Low 50-250 [facility] Comment on above: Performed By: #### L 500.2500 ####[facility] [address] [place], [address] GAP 11 Normal 5-15 [facility] Comment on above: Performed By: #### L 500.2500 ####[facility] [address] [place], [address] GFR/1.73 sq M.predicted among non-blacks MDRD (S/P/Bld) [Vol rate/Area] 44 mL/min/{1.73_m2} Low >60 [facility] Comment on above: Result Comment: mL/m in/1.73m2 CKD-EPI Creatinine Equation (2020) Performed By: #### L 500.2500 ####[facility] [address] [place], [address] Glucose [Mass/Vol] 115 mg/dL High 70-99 [facility] Comment on above: Performed By: #### L 500.2500 ####[facility] [address] [place], [address] Potassium [Moles/Vol] 4.0 mmol/L Normal 3.3-5.1 [facility] Comment on above: Performed By: #### L 500.2500 ####[facility] [address] [place], [address] Sodium [Moles/Vol] 140 mmol/L Normal 133-145 [facility] Comment on above: Performed By: #### L 500.2500 ####[facility] [address] [place], [address] Urea nitrogen [Mass/Vol] 49 mg/dL High 4-19 [facility] Comment on above: Performed By: #### L 500.2500 ####[facility] [address] [place], [address] CBC-Complete Blood Cnt No Ida pritchardon 12-21-2024 Erythrocyte distribution width (RBC) [Ratio] 13.0 % Normal 11.6-14.6 [facility] Comment on above: Performed By: #### L 100.0500 ####[facility] [address] [place], [address] Hematocrit (Bld) [Volume fraction] 30.8 % Low 40-54 [facility] Comment on above: Performed By: #### L 100.0500 ####[facility] [address] [place], [address] Hemoglobin (Bld) [Mass/Vol] 10.3 g/dL Low 13.0-16.5 [facility] Comment on above: Performed By: #### L 100.0500 ####[facility] [address] [place], [address] MCH (RBC) [Entitic mass] 35.0 pg High 27.0-32.0 [facility] Comment on above: Performed By: #### L 100.0500 ####[facility] [address] [place], [address] MCHC (RBC) [Mass/Vol] 33.4 g/dL Normal 32-36 [facility] Comment on above: Performed By: #### L 100.0500 ####[facility] [address] [place], [address] MCV (RBC) [Entitic vol] 104.8 fL High 80-94 [facility] Comment on above: Performed By: #### L 100.0500 ####[facility] [address] [place], [address] Platelet mean volume (Bld) [Entitic vol] 9.6 fL Normal 6.2-12.0 [facility] Comment on above: Performed By: #### L 100.0500 ####[facility] [address] [place], [address] Platelets (Bld) [#/Vol] 109 10*3/uL Low 150-450 [facility] Comment on above: Performed By: #### L 100.0500 ####[facility] [address] [place], [address] RBC (Bld) [#/Vol] 2.94 10*6/uL Low 4.6-6.2 [facility] Comment on above: Performed By: #### L 100.0500 ####[facility] [address] [place], [address] RDW SD 50.3 fl High 35.1-43.9 [facility] Comment on above: Performed By: #### L 100.0500 ####[facility] [address] [place], [address] WBC (Bld) [#/Vol] 9.2 10*3/uL Normal 4.4-11.0 [facility] Comment on above: Performed By: #### L 100.0500 ####[facility] [address] [place], [address] Basic Metabolic Profile (BMP )on 12-20-2024 BUN/CRE 22.6 RATIO High 10-20 [facility] Comment on above: Performed By: #### L 100.0500, L500.2500 ####[facility] [address] [place], [address] Calcium [Mass/Vol] 8.4 mg/dL Normal 7.6-11.0 [facility] Comment on above: Performed By: #### L 100.0500, L500.2500 ####[facility] [address] [place], [address] Chloride [Moles/Vol] 108 mmol/L Normal 98-108 [facility] Comment on above: Performed By: #### L 100.0500, L500.2500 ####[facility] [address] [place], [address] CO2 [Moles/Vol] 23.9 mmol/L Normal 21.0-32.0 [facility] Comment on above: Performed By: #### L 100.0500, L500.2500 ####[facility] [address] [place], [address] Creatinine [Mass/Vol] 1.51 mg/dL High 0.70-1.20 [facility] Comment on above: Performed By: #### L 100.0500, L500.2500 ####[facility] [address] [place], [address] ECRCL 35.59 ml/min Low 50-250 [facility] Comment on above: Performed By: #### L 100.0500, L500.2500 ####[facility] [address] [place], [address] GAP 11 Normal 5-15 [facility] Comment on above: Performed By: #### L 100.0500, L500.2500 ####[facility] [address] [place], [address] GFR/1.73 sq M.predicted among non-blacks MDRD (S/P/Bld) [Vol rate/Area] 44 mL/min/{1.73_m2} Low >60 [facility] Comment on above: Result Comment: mL/m in/1.73m2 CKD-EPI Creatinine Equation (2020) Performed By: #### L 100.0500, L500.2500 ####[facility] [address] [place], [address] Glucose [Mass/Vol] 138 mg/dL High 70-99 [facility] Comment on above: Performed By: #### L 100.0500, L500.2500 ####[facility] [address] [place], [address] Potassium [Moles/Vol] 4.7 mmol/L Normal 3.3-5.1 [facility] Comment on above: Performed By: #### L 100.0500, L500.2500 ####[facility] [address] [place], [address] Sodium [Moles/Vol] 143 mmol/L Normal 133-145 [facility] Comment on above: Performed By: #### L 100.0500, L500.2500 ####[facility] [address] [place], [address] Urea nitrogen [Mass/Vol] 34 mg/dL High 4-19 [facility] Comment on above: Performed By: #### L 100.0500, L500.2500 ####[facility] [address] [place], [address] CBC-Complete Blood Cnt No Di ffon 12-20-2024 Erythrocyte distribution width (RBC) [Ratio] 13.2 % Normal 11.6-14.6 [facility] Comment on above: Performed By: #### L 100.0500, L500.2500 ####[facility] [address] [place], [address] Hematocrit (Bld) [Volume fraction] 33.4 % Low 40-54 [facility] Comment on above: Performed By: #### L 100.0500, L500.2500 ####[facility] [address] [place], [address] Hemoglobin (Bld) [Mass/Vol] 11.3 g/dL Low 13.0-16.5 [facility] Comment on above: Performed By: #### L 100.0500, L500.2500 ####[facility] [address] [place], [address] MCH (RBC) [Entitic mass] 35.0 pg High 27.0-32.0 [facility] Comment on above: Performed By: #### L 100.0500, L500.2500 ####[facility] [address] [place], [address] MCHC (RBC) [Mass/Vol] 33.8 g/dL Normal 32-36 [facility] Comment on above: Performed By: #### L 100.0500, L500.2500 ####[facility] [address] [place], [address] MCV (RBC) [Entitic vol] 103.4 fL High 80-94 [facility] Comment on above: Performed By: #### L 100.0500, L500.2500 ####[facility] [address] [place], [address] Platelet mean volume (Bld) [Entitic vol] 9.4 fL Normal 6.2-12.0 [facility] Comment on above: Performed By: #### L 100.0500, L500.2500 ####[facility] [address] [place], [address] Platelets (Bld) [#/Vol] 117 10*3/uL Low 150-450 [facility] Comment on above: Performed By: #### L 100.0500, L500.2500 ####[facility] [address] [place], [address] RBC (Bld) [#/Vol] 3.23 10*6/uL Low 4.6-6.2 [facility] Comment on above: Performed By: #### L 100.0500, L500.2500 ####[facility] [address] [place], [address] RDW SD 50.2 fl High 35.1-43.9 [facility] Comment on above: Performed By: #### L 100.0500, L500.2500 ####[facility] [address] [place], [address] WBC (Bld) [#/Vol] 10.2 10*3/uL Normal 4.4-11.0 [facility] Comment on above: Performed By: #### L 100.0500, L500.2500 ####[facility] [address] [place], [address] Basic Metabolic Profile (BMP )on 12-19-2024 BUN/CRE 23.2 RATIO High 10-20 [facility] Comment on above: Performed By: #### L 500.2500, L100.0500 ####[facility] [address] [place], [address] Calcium [Mass/Vol] 8.4 mg/dL Normal 7.6-11.0 [facility] Comment on above: Performed By: #### L 500.2500, L100.0500 ####[facility] [address] [place], [address] Chloride [Moles/Vol] 109 mmol/L High 98-108 [facility] Comment on above: Performed By: #### L 500.2500, L100.0500 ####[facility] [address] [place], [address] CO2 [Moles/Vol] 22.6 mmol/L Normal 21.0-32.0 [facility] Comment on above: Performed By: #### L 500.2500, L100.0500 ####[facility] [address] [place], [address] Creatinine [Mass/Vol] 1.04 mg/dL Normal 0.70-1.20 [facility] Comment on above: Performed By: #### L 500.2500, L100.0500 ####[facility] [address] [place], [address] ECRCL 51.67 ml/min Normal 50-250 [facility] Comment on above: Performed By: #### L 500.2500, L100.0500 ####[facility] [address] [place], [address] GAP 11 Normal 5-15 [facility] Comment on above: Performed By: #### L 500.2500, L100.0500 ####[facility] [address] [place], [address] GFR/1.73 sq M.predicted among non-blacks MDRD (S/P/Bld) [Vol rate/Area] 69 mL/min/{1.73_m2} Normal >60 [facility] Comment on above: Result Comment: mL/m in/1.73m2 CKD-EPI Creatinine Equation (2020) Performed By: #### L 500.2500, L100.0500 ####[facility] [address] [place], [address] Glucose [Mass/Vol] 122 mg/dL High 70-99 [facility] Comment on above: Performed By: #### L 500.2500, L100.0500 ####[facility] [address] [place], [address] Potassium [Moles/Vol] 3.8 mmol/L Normal 3.3-5.1 [facility] Comment on above: Result Comment: Hemo lysis present, Results??could be affected.?? Performed By: #### L 500.2500, L100.0500 ####[facility] [address] [place], [address] Sodium [Moles/Vol] 142 mmol/L Normal 133-145 [facility] Comment on above: Performed By: #### L 500.2500, L100.0500 ####[facility] [address] [place], [address] Urea nitrogen [Mass/Vol] 24 mg/dL High 4-19 [facility] Comment on above: Performed By: #### L 500.2500, L100.0500 ####[facility] [address] [place], [address] Bedside Glucoseon 12-19-2024 FINGERSTICK GLU 117 mg/dL High 74-106 [facility] Comment on above: Result Comment: RADHA MENDOZA OF PATIENT CARE PER NURSING PROTOCOL Performed By: #### L 501.080 ####[facility] [address] [place], [address] CBC-Complete Blood Cnt No Di ffon 12-19-2024 Erythrocyte distribution width (RBC) [Ratio] 13.2 % Normal 11.6-14.6 [facility] Comment on above: Performed By: #### L 500.2500, L100.0500 ####[facility] [address] [place], [address] Hematocrit (Bld) [Volume fraction] 35.8 % Low 40-54 [facility] Comment on above: Performed By: #### L 500.2500, L100.0500 ####[facility] [address] [place], [address] Hemoglobin (Bld) [Mass/Vol] 12.1 g/dL Low 13.0-16.5 [facility] Comment on above: Performed By: #### L 500.2500, L100.0500 ####[facility] [address] [place], [address] MCH (RBC) [Entitic mass] 34.8 pg High 27.0-32.0 [facility] Comment on above: Performed By: #### L 500.2500, L100.0500 ####[facility] [address] [place], [address] MCHC (RBC) [Mass/Vol] 33.8 g/dL Normal 32-36 [facility] Comment on above: Performed By: #### L 500.2500, L100.0500 ####[facility] [address] [place], [address] MCV (RBC) [Entitic vol] 102.9 fL High 80-94 [facility] Comment on above: Performed By: #### L 500.2500, L100.0500 ####[facility] [address] [place], [address] Platelet mean volume (Bld) [Entitic vol] 10.1 fL Normal 6.2-12.0 [facility] Comment on above: Performed By: #### L 500.2500, L100.0500 ####[facility] [address] [place], [address] Platelets (Bld) [#/Vol] 127 10*3/uL Low 150-450 [facility] Comment on above: Performed By: #### L 500.2500, L100.0500 ####[facility] [address] [place], [address] RBC (Bld) [#/Vol] 3.48 10*6/uL Low 4.6-6.2 [facility] Comment on above: Performed By: #### L 500.2500, L100.0500 ####[facility] [address] [place], [address] RDW SD 49.3 fl High 35.1-43.9 [facility] Comment on above: Performed By: #### L 500.2500, L100.0500 ####[facility] [address] [place], [address] WBC (Bld) [#/Vol] 7.3 10*3/uL Normal 4.4-11.0 [facility] Comment on above: Performed By: #### L 500.2500, L100.0500 ####[facility] [address] [place], [address] Consultation - Orthopedicson 12-19-2024 Consultation - Orthopedics Normal [facility] Electrocardiogram reportOrde red By: Yadiel Bettencourt on 12-19-2024 EKG study [facility] [address] [place] [address] 12 Lead EKG 12/18/24 1428 MR#: [id number] Acct: [id number] Name: JESS JAMES Rep #:[id number] : [id number] 89 From: Yadiel Bettencourt MD Attending Dr: Dr. Radha Cope DO S tatus: ADM IN Ordering Dr: Win Alberto DO Date: 12/18/24 [place] [facility] [place] M C Admitted: 12/18/24 Test Reason : FALL Blood Pressure : */* mmHG Vent. Rate : 49 BPM Atrial Rate : 49 BPM P-R Int : 218 ms QRS Dur : 160 ms QT Int : 480 ms P-R-T Axes : 37 -4 135 degrees QTcB Int : 433 ms Sinus bradycardia with sinus arrhythmia with 1st degree A-V block Left bundle branch block Abnormal ECG Confirmed by SG COVARRUBIAS, YADIEL ([id number]), development editor LETY GAMBOA ([id number]) on 51:02:09 PM Referred By: Confirmed By: YADIEL BETTENCOURT MD 12/19/24 1302 Date _ Yadiel Bettencourt MD CC: Dr. Dyan Kyle MD; Dr. Win Alberto DO; Dr. Radha Cope DO ~ Signed [facility] Other Glucose measurement at bedsi deOrdered By: Radha Cope on 12-19-2024 Glucose [Mass/Vol] 117 mg/dL High 74-106 [facility] Comment on above: MANAGEMENT OF PATIEN T CARE PER NURSING PROTOCOL Hip 1 view with Pelvison Hip 1 view with Pelvis Normal [facility] MR/POSTOP.ANEon 12-19-2024 MR/POSTOP.ANE Normal [facility] MR/[id number] 12-19-2024 MR/POSTOPAN2 Normal [facility] Operative Reporton Operative Report Normal [facility] Type AND Screenon 12-19-2024 ABO and Rh group Nom (Bld) Blood group A Rh(D) negative Normal [facility] Comment on above: Order Comment: S Performed By: #### B TS ####[facility] [address] [place], [address] 12 Lead EKGon 12-18-2024 12 Lead EKG Normal [facility] Absolute lymphocyte countOrd ered By: Win Alberto on 12-18-2024 Lymphocytes Auto (Unsp spec) [#/Vol] 1.75 10*3/uL 0.83-4.51 [facility] Absolute neutrophil countOrd ered By: Win Alberto on 12-18-2024 Neutrophils (Bld) [#/Vol] 4.0 10*3/uL 2.0-7.7 [facility] Activated partial thrombopla stin time (aPTT) in platelet poor plasma by coagulation aOrdered By: Amado Jean on 12-18-2024 aPTT Coag (PPP) [Time] 30.4 s 24.1-36.2 [facility] Anion gap in Serum or Plasma Ordered By: Win Alberto on 12-18-2024 Anion gap [Moles/Vol] 12 mmol/L 5-15 [facility] Automated lymphocyte count a s percentage of total leukocytesOrdered By: Wni Alberto on 12-18-2024 Lymphocytes/100 WBC Auto (Unsp spec) 28.2 % 19-41 [facility] BUN/creatinine ratioOrdered By: Win Alberto on 12-18-2024 Urea nitrogen/Creatinine [Mass ratio] 23.4 mg/mg High 10- [facility] Basic Metabolic Profile (BMP )on 12-18-2024 BUN/CRE 23.4 RATIO High 03-12 [facility] Comment on above: Performed By: #### L 100.0100, L500.2500 ####[facility] [address] [place], [address] Calcium [Mass/Vol] 8.7 mg/dL Normal 7.6-11.0 [facility] Comment on above: Performed By: #### L 100.0100, L500.2500 ####[facility] [address] [place], [address] Chloride [Moles/Vol] 110 mmol/L High 98-108 [facility] Comment on above: Performed By: #### L 100.0100, L500.2500 ####[facility] [address] [place], [address] CO2 [Moles/Vol] 19.5 mmol/L Low 21.0-32.0 [facility] Comment on above: Performed By: #### L 100.0100, L500.2500 ####[facility] [address] [place], [address] Creatinine [Mass/Vol] 1.05 mg/dL Normal 0.70-1.20 [facility] Comment on above: Performed By: #### L 100.0100, L500.2500 ####[facility] [address] [place], [address] ECRCL 51.18 ml/min Normal 50-250 [facility] Comment on above: Performed By: #### L 100.0100, L500.2500 ####[facility] [address] [place], [address] GAP 12 Normal 5-15 [facility] Comment on above: Performed By: #### L 100.0100, L500.2500 ####[facility] [address] [place], [address] GFR/1.73 sq M.predicted among non-blacks MDRD (S/P/Bld) [Vol rate/Area] 69 mL/min/{1.73_m2} Normal >60 [facility] Comment on above: Result Comment: mL/m in/1.73m2 CKD-EPI Creatinine Equation (2020) Performed By: #### L 100.0100, L500.2500 ####[facility] [address] [place], [address] Glucose [Mass/Vol] 114 mg/dL High 70-99 [facility] Comment on above: Performed By: #### L 100.0100, L500.2500 ####[facility] [address] [place], [address] Potassium [Moles/Vol] 4.2 mmol/L Normal 3.3-5.1 [facility] Comment on above: Result Comment: Hemo lysis present, Results??could be affected.?? Performed By: #### L 100.0100, L500.2500 ####[facility] [address] [place], [address] Sodium [Moles/Vol] 142 mmol/L Normal 133-145 [facility] Comment on above: Performed By: #### L 100.0100, L500.2500 ####[facility] [address] [place], [address] Urea nitrogen [Mass/Vol] 25 mg/dL High 4-19 [facility] Comment on above: Performed By: #### L 100.0100, L500.2500 ####[facility] [address] [place], [address] Basophil percentageOrdered B y: Win Alberto on 12-18-2024 Basophils/100 WBC (Bld) 0.3 % 0-1 [facility] Bilirubin Test strip Ql (U)O rdered By: Win Alberto on 12-18-2024 Bilirubin Ql (U) Negative Negative [facility] Bilirubin directOrdered By: Amado Jean on 12-18-2024 Bilirubin.direct [Mass/Vol] 0.21 mg/dL 0.00-0.30 [facility] Comment on above: Hemolysis present, R esults could be affected. Bilirubin, totalOrdered By: Amado Jean on 12-18-2024 Bilirubin [Mass/Vol] 0.51 mg/dL 0.00-1.30 [facility] CBC W/Diff, Automatedon 11-22 Absolute Lymph 1.75 X10 3/uL Normal 0.83-4.51 [facility] Comment on above: Performed By: #### L 100.0100, L500.2500 ####[facility] [address] [place], [address] Absolute Neut 4.0 X10 3/uL Normal 2.0-7.7 [facility] Comment on above: Performed By: #### L 100.0100, L500.2500 ####[facility] [address] [place], [address] Basophils/100 WBC (Bld) 0.3 % Normal 0-1 [facility] Comment on above: Performed By: #### L 100.0100, L500.2500 ####[facility] [address] [place], [address] Eosinophils/100 WBC (Bld) 1.1 % Normal 0-5 [facility] Comment on above: Performed By: #### L 100.0100, L500.2500 ####[facility] [address] [place], [address] Erythrocyte distribution width (RBC) [Ratio] 13.1 % Normal 11.6-14.6 [facility] Comment on above: Performed By: #### L 100.0100, L500.2500 ####[facility] [address] [place], [address] Hematocrit (Bld) [Volume fraction] 39.9 % Low 40-54 [facility] Comment on above: Performed By: #### L 100.0100, L500.2500 ####[facility] [address] [place], [address] Hemoglobin (Bld) [Mass/Vol] 13.3 g/dL Normal 13.0-16.5 [facility] Comment on above: Performed By: #### L 100.0100, L500.2500 ####[facility] [address] [place], [address] IG% 0.600 Normal 0.0-0.9 [facility] Comment on above: Result Comment: IG% - Immature Granulocytes (promyelocytes, myelocytes andmetamyelocytes) > 1% indicates that a LEFT SHIFT is Present. Performed By: #### L 100.0100, L500.2500 ####[facility] [address] [place], [address] Lymphocytes/100 WBC (Bld) 28.2 % Normal 19-41 [facility] Comment on above: Performed By: #### L 100.0100, L500.2500 ####[facility] [address] [place], [address] MCH (RBC) [Entitic mass] 34.8 pg High 27.0-32.0 [facility] Comment on above: Performed By: #### L 100.0100, L500.2500 ####[facility] [address] [place], [address] MCHC (RBC) [Mass/Vol] 33.3 g/dL Normal 32-36 [facility] Comment on above: Performed By: #### L 100.0100, L500.2500 ####[facility] [address] [place], [address] MCV (RBC) [Entitic vol] 104.5 fL High 80-94 [facility] Comment on above: Performed By: #### L 100.0100, L500.2500 ####[facility] [address] [place], [address] Monocytes/100 WBC (Bld) 5.6 % Normal 0-10 [facility] Comment on above: Performed By: #### L 100.0100, L500.2500 ####[facility] [address] [place], [address] Neutrophils/100 WBC (Bld) 64.2 % Normal 47-70 [facility] Comment on above: Performed By: #### L 100.0100, L500.2500 ####[facility] [address] [place], [address] Nucleated RBC (Bld) [#/Vol] 0 10*3/uL Normal 0-5 [facility] Comment on above: Performed By: #### L 100.0100, L500.2500 ####[facility] [address] [place], [address] Platelet mean volume (Bld) [Entitic vol] 9.5 fL Normal 6.2-12.0 [facility] Comment on above: Performed By: #### L 100.0100, L500.2500 ####[facility] [address] [place], [address] Platelets (Bld) [#/Vol] 120 10*3/uL Low 150-450 [facility] Comment on above: Performed By: #### L 100.0100, L500.2500 ####[facility] [address] [place], [address] RBC (Bld) [#/Vol] 3.82 10*6/uL Low 4.6-6.2 [facility] Comment on above: Performed By: #### L 100.0100, L500.2500 ####[facility] [address] [place], [address] RDW SD 50.2 fl High 35.1-43.9 [facility] Comment on above: Performed By: #### L 100.0100, L500.2500 ####[facility] [address] [place], [address] WBC (Bld) [#/Vol] 6.2 10*3/uL Normal 4.4-11.0 [facility] Comment on above: Performed By: #### L 100.0100, L500.2500 ####[facility] [address] [place], [address] Carbon dioxide, total [Moles /volume] in Central venous bloodOrdered By: Win Alberto on 12-18-2024 CO2 [Moles/Vol] 19.5 mmol/L Low 21.0-32.0 [facility] Chest 1 Viewon 12-18-2024 Chest 1 View Normal [facility] Chloride assayOrdered By: Derek Alberto on 12-18-2024 Chloride [Moles/Vol] 110 mmol/L High 98-108 [facility] Emergency Department Summary on 12-18-2024 Emergency Department Summary Normal [facility] Eosinophil percentageOrdered By: Win Alberto on 12-18-2024 Eosinophils/100 WBC (Bld) 1.1 % 0-5 [facility] Erythrocyte distribution wid th ratioOrdered By: Win Alberto on 12-18-2024 Erythrocyte distribution width (RBC) [Ratio] 13.1 % 11.6-14.6 [facility] Erythrocyte distribution wid th standard deviationOrdered By: Win Alberto on 12-18-2024 Erythrocyte distribution width (RBC) [Ratio] 50.2 fl High 35.1-43.9 [facility] Glomerular filtration rate ( GFR) estimation/1.73 sq m using serum, plasma, or whole bOrdered By: Win Alberto on 12-18-2024 GFR/1.73 sq M.predicted among non-blacks MDRD (S/P/Bld) [Vol rate/Area] 69 mL/min/{1.73_m2} >60 [facility] Comment on above: mL/min/1.73m2 CKD-EP I Creatinine Equation (2020) H AND P Exam - Hospitaliston 12-18-2024 H&P Exam - Hospitalist Normal [facility] HIP, UNI W/ Pelvis 2-3 Views on 12-18-2024 HIP, UNI W/ Pelvis 2-3 Views Normal [facility] Hematocrit Auto (Bld) [Volum e fraction]Ordered By: Win Alberto on 12-18-2024 Hematocrit (Bld) [Volume fraction] 39.9 % Low 40-54 [facility] Hemoglobin measurementOrdere d By: Win Alberto on 12-18-2024 Hemoglobin (Bld) [Mass/Vol] 13.3 g/dL 13.0-16.5 [facility] Immature granulocytes/100 WB C Auto (Bld)Ordered By: Win Alberto on 12-18-2024 Immature granulocytes/100 WBC (Bld) 0.600 % 0.0-0.9 [facility] Comment on above: IG% - Immature Granu locytes (promyelocytes, myelocytes and metamyelocytes) > 1% indicates that a LEFT SHIFT is Present. International normalized rat io (INR) calculationOrdered By: Amado Jean on 12-18-2024 INR Coag (Bld) [Relative time] 1.1 {INR} [facility] Ketones Test strip Ql (U)Ord ered By: Win Alberto on 12-18-2024 Ketones Ql (U) 15 mg/dl High Negative [facility] Laboratory - Chemistry and C hemistry - challengeOrdered By: Amado Jean on 12-18-2024 AST [Catalytic activity/Vol] 17 U/L <38 [facility] Comment on above: Hemolysis present, R esults could be affected. Liver Profileon 12-18-2024 Albumin [Mass/Vol] 3.3 g/dL Low 3.4-4.8 [facility] Comment on above: Performed By: #### L 500.3400, L503.7505 ####[facility] [address] [place], [place], [id number] ALK PHOS 44 U/L Normal 40-129 [facility] Comment on above: Performed By: #### L 500.3400, L503.7505 ####[facility] [address] [place], [address] ALT [Catalytic activity/Vol] 7 U/L Normal <=46 [facility] Comment on above: Performed By: #### L 500.3400, L503.7505 ####[facility] [address] [place], [address] AST [Catalytic activity/Vol] 17 U/L Normal <=37 [facility] Comment on above: Result Comment: Hemo lysis present, Results??could be affected.?? Performed By: #### L 500.3400, L503.7505 ####[facility] [address] [place], [address] Bilirubin [Mass/Vol] 0.51 mg/dL Normal 0.00-1.30 [facility] Comment on above: Performed By: #### L 500.3400, L503.7505 ####[facility] [address] [place], [address] Bilirubin.direct [Mass/Vol] 0.21 mg/dL Normal 0.00-0.30 [facility] Comment on above: Result Comment: Hemo lysis present, Results??could be affected.?? Performed By: #### L 500.3400, L503.7505 ####[facility] [address] [place], [address] Globulin (S) [Mass/Vol] 2.7 g/dL Normal 2.2-4.2 [facility] Comment on above: Performed By: #### L 500.3400, L503.7505 ####[facility] [address] [place], [address] T PROT 6.0 g/dL Normal 5.9-8.4 [facility] Comment on above: Performed By: #### L 500.3400, L503.7505 ####[facility] [address] [place], [address] MCV (mean corpuscular volume ) determinationOrdered By: Win Alberto on 12-18-2024 MCV (RBC) [Entitic vol] 104.5 fL High 80-94 [facility] Mean corpuscular hemoglobin (MCH) determinationOrdered By: Win Alberto on 12-18-2024 MCH (RBC) [Entitic mass] 34.8 pg High 27.0-32.0 [facility] Mean corpuscular hemoglobin concentration (MCHC) determinationOrdered By: Win Alberto on 12-18-2024 MCHC (RBC) [Mass/Vol] 33.3 g/dL 32-36 [facility] Mean platelet volume determi nationOrdered By: Win Alberto on 12-18-2024 Platelet mean volume (Bld) [Entitic vol] 9.5 fL 6.2-12.0 [facility] Microscopic analysis of urin e for red blood cells (RBC)Ordered By: Win Alberto on 12-18-2024 Microscopic analysis of urine for red blood cells (RBC) 0-5 SEEN /hpf 0-5 [facility] Monocyte percentageOrdered B y: Win Alberto on 12-18-2024 Monocytes/100 WBC (Bld) 5.6 % 0-10 [facility] Mucus LM Ql (Urine sed)Order ed By: Win Alberto on 12-18-2024 Mucus Ql (Urine sed) 0 SEEN /hpf [facility] Natriuretic peptide.B prohor leo N-Terminal [Mass/volume] in Serum or PlasmaOrdered By: Amado Jean on 12-18-2024 Natriuretic peptide.B prohormone N-Terminal [Mass/Vol] 1126 pg/mL <1800 [facility] Comment on above: Heart Failure Unlike ly: < 300 pg/mLHeart Failure Likely< 50 Years: > 450 pg/mL50-75 Years: > 900 pg/mL>75 Years: > 1800 pg/mL Neutrophil percentageOrdered By: Win Alberto on 12-18-2024 Neutrophils/100 WBC (Bld) 64.2 % 47-70 [facility] Nitrite Test strip Ql (U)Ord ered By: Win Alberto on 12-18-2024 Nitrite Ql (U) Negative Negative [facility] Nucleated red blood cell per centageOrdered By: Win Alberto on 12-18-2024 Nucleated RBC/100 WBC (Bld) [Ratio] 0 % 0-5 [facility] Partial Thromboplast Timeon 12-18-2024 aPTT Coag (Bld) [Time] 30.4 s Normal 24.1-36.2 [facility] Comment on above: Performed By: #### L 300.3900, L300.4310 ####[facility] [address] [place], [address] Platelet countOrdered By: Derek Alberto on 12-18-2024 Platelets (Bld) [#/Vol] 120 10*3/uL Low 150-450 [facility] Potassium measurement (mass/ volume)Ordered By: Win Alberto on 12-18-2024 Potassium (Unsp spec) [Mass/Vol] 4.2 mmol/L 3.3-5.1 [facility] Comment on above: Hemolysis present, R esults could be affected. Pro- Brain NATRIURETIC PEPTI Rylee 12-18-2024 Natriuretic peptide B (Bld) [Mass/Vol] 1126 pg/mL Normal <=1800 [facility] Comment on above: Result Comment: Hear t Failure Unlikely: < 300 pg/mLHeart Failure Likely< 50 Years: > 450 pg/mL50-75 Years: > 900 pg/mL>75 Years: > 1800 pg/mL Performed By: #### L 500.3400, L503.1925 ####[facility] [address] [place], [place], [id number] Protein Test strip Ql (U)Ord ered By: Win Alberto on 12-18-2024 Protein Ql (U) 15 mg/dl High Negative [facility] Prothrombin Time w/INRon INR Coag (PPP) [Relative time] 1.1 {INR} Normal [facility] Comment on above: Performed By: #### L 300.3900, L300.4310 ####[facility] [address] [place], [address] PT Coag (PPP) [Time] 14.8 s Normal 11.7-14.9 [facility] Comment on above: Performed By: #### L 300.9258, L362.3721 ####[facility] [address] [place], [address] Prothrombin timeOrdered By: Amado Jean on 12-18-2024 PT Coag (PPP) [Time] 14.8 s 11.7-14.9 [facility] RBC Auto (Bld) [#/Vol]Ordere d By: Win Alberto on 12-18-2024 RBC (Bld) [#/Vol] 3.82 10*6/uL Low 4.6-6.2 [facility] Serum creatinine measurement (mass/volume)Ordered By: Win Alberto on 12-18-2024 Creatinine [Mass/Vol] 1.05 mg/dL 0.70-1.20 [facility] Serum globulin measurementOr dered By: Amado Jean on 12-18-2024 Globulin (S) [Mass/Vol] 2.7 g/dL 2.2-4.2 [facility] Serum glucose measurement (m ass/volume)Ordered By: Win Alberto on 12-18-2024 Glucose [Mass/Vol] 114 mg/dL High 70-99 [facility] Serum or plasma alanine rausch otransferase (ALT) measurementOrdered By: Amado Jean on 12-18-2024 ALT [Catalytic activity/Vol] 7 U/L <47 [facility] Serum or plasma albumin patricia urement (mass/volume)Ordered By: Amado Jean on 12-18-2024 Albumin [Mass/Vol] 3.3 g/dL Low 3.4-4.8 [facility] Serum or plasma alkaline martín sphatase measurementOrdered By: Amado Jean on 12-18-2024 ALP [Catalytic activity/Vol] 44 U/L 40-129 [facility] Serum or plasma calcium patricia urement (mass/volume)Ordered By: Win Alberto on 12-18-2024 Calcium [Mass/Vol] 8.7 mg/dL 7.6-11.0 [facility] Serum or plasma urea nitroge n measurement (mass/volume)Ordered By: Win Alberto on 12-18-2024 Urea nitrogen [Mass/Vol] 25 mg/dL High 4-19 [facility] Sodium levelOrdered By: Win Alberto on 12-18-2024 Sodium [Moles/Vol] 142 mmol/L 133-145 [facility] Squamous epithelial cells de tection in urine sediment by light microscopyOrdered By: Win Alberto on 12-18-2024 Epithelial cells.squamous LM Ql (Urine sed) 0 SEEN /hpf 0-5 [facility] Total proteinOrdered By: Alysia Jean on 12-18-2024 Protein [Mass/Vol] 6.0 g/dL 5.9-8.4 [facility] Urinalysis, Completeon 12-18 RBC 0-5 SEEN Normal 0-5 [facility] Comment on above: Order Comment: CLEAN CATCH Performed By: #### L 400.0001 ####[facility] [address] [place], [place], [id number] BACTERIA 0 SEEN Normal None Seen [facility] Comment on above: Order Comment: CLEAN CATCH Performed By: #### L 400.0001 ####[facility] [address] [place], [address] EPI,SQUAMOUS 0 SEEN Normal 0-5 [facility] Comment on above: Order Comment: CLEAN CATCH Performed By: #### L 400.0001 ####[facility] [address] [place], [address] Mucus Ql (Urine sed) 0 SEEN Normal [facility] Comment on above: Order Comment: CLEAN CATCH Performed By: #### L 400.0001 ####[facility] [address] [place], [address] WBC 0 SEEN Normal 0-5 [facility] Comment on above: Order Comment: CLEAN CATCH Performed By: #### L 400.0001 ####[facility] [address] [place], [place], [id number] Urine clarityOrdered By: Cindy Alberto on 12-18-2024 Clarity (U) Clear Clear [facility] Urine color determinationOrd ered By: Win Alberto on 12-18-2024 Color (U) Yellow Yellow [facility] Urine glucose detectionOrder ed By: Win Alberto on 12-18-2024 Glucose Ql (U) 1000 mg/dl High Normal [facility] Urine leukocyte esterase det ection by dipstickOrdered By: Win Alberto on 12-18-2024 Leukocyte esterase Test strip Ql (U) Negative Negative [facility] Urine pHOrdered By: Win yu on 12-18-2024 pH (U) 7.0 [pH] 5.0 - 8.0 [facility] Urine sediment bacteria coun t by microscopy (number/high power field)Ordered By: Win Alberto on 12-18-2024 Bacteria LM.HPF (Urine sed) [#/Area] 0 /[HPF] None Seen [facility] Urine specific gravity measu rementOrdered By: Win Alberto on 12-18-2024 Specific gravity (U) [Rel density] 1.010 1.002-1.030 [facility] Urine urobilinogen measureme ntOrdered By: Win Alberto on 12-18-2024 Urobilinogen Ql (U) Normal mg/dl Normal [facility] White blood cell (WBC) count Ordered By: Win Alberto on 12-18-2024 WBC (Bld) [#/Vol] 6.2 10*3/uL 4.4-11.0 [facility] White blood cell countOrdere d By: Win Alberto on 12-18-2024 White blood cell count 0 SEEN /hpf 0-5 [facility] Absolute lymphocyte countOrd ered By: Carolina Mcgee on 11-07-2024 Lymphocytes Auto (Unsp spec) [#/Vol] 2.56 10*3/uL 0.83-4.51 [facility] Absolute neutrophil countOrd ered By: Carolina Mcgee on 11-07-2024 Neutrophils (Bld) [#/Vol] 2.3 10*3/uL 2.0-7.7 [facility] Anion gap in Serum or Plasma Ordered By: Carolina Mcgee on 11-07-2024 Anion gap [Moles/Vol] 11 mmol/L 5-15 [facility] Automated lymphocyte count a s percentage of total leukocytesOrdered By: Carolina Arely on 11-07-2024 Lymphocytes/100 WBC Auto (Unsp spec) 45.7 % High 19-41 [facility] BUN/creatinine ratioOrdered By: [facility] on 11-07-2024 Urea nitrogen/Creatinine [Mass ratio] 23.8 mg/mg High 10-20 [facility] Basophil percentageOrdered B y: Carolina Arely on 11-07-2024 Basophils/100 WBC (Bld) 0.5 % 0-1 [facility] Bilirubin, totalOrdered By: [facility] on 11-07-2024 Bilirubin [Mass/Vol] 0.55 mg/dL 0.00-1.30 [facility] CBC W/Diff, Automatedon 10-22 Absolute Lymph 2.56 X10 3/uL Normal 0.83-4.51 [facility] Comment on above: Performed By: #### L 100.0100, L500.4050, L501.9940 ####[facility] [address] [place], [address] Absolute Neut 2.3 X10 3/uL Normal 2.0-7.7 [facility] Comment on above: Performed By: #### L 100.0100, L500.4050, L501.9940 ####[facility] [address] [place], [address] Basophils/100 WBC (Bld) 0.5 % Normal 0-1 [facility] Comment on above: Performed By: #### L 100.0100, L500.4050, L501.9940 ####[facility] [address] [place], [address] Eosinophils/100 WBC (Bld) 3.0 % Normal 0-5 [facility] Comment on above: Performed By: #### L 100.0100, L500.4050, L501.9940 ####[facility] [address] [place], [address] Erythrocyte distribution width (RBC) [Ratio] 13.5 % Normal 11.6-14.6 [facility] Comment on above: Performed By: #### L 100.0100, L500.4050, L501.9940 ####[facility] [address] [place], [address] Hematocrit (Bld) [Volume fraction] 39.6 % Low 40-54 [facility] Comment on above: Performed By: #### L 100.0100, L500.4050, L501.9940 ####[facility] [address] [place], [address] Hemoglobin (Bld) [Mass/Vol] 13.4 g/dL Normal 13.0-16.5 [facility] Comment on above: Performed By: #### L 100.0100, L500.4050, L501.9940 ####[facility] [address] [place], [address] IG% 0.700 Normal 0.0-0.9 [facility] Comment on above: Result Comment: IG% - Immature Granulocytes (promyelocytes, myelocytes andmetamyelocytes) > 1% indicates that a LEFT SHIFT is Present. Performed By: #### L 100.0100, L500.4050, L501.9940 ####[facility] [address] [place], [address] Lymphocytes/100 WBC (Bld) 45.7 % High 19-41 [facility] Comment on above: Performed By: #### L 100.0100, L500.4050, L501.9940 ####[facility] [address] [place], [address] MCH (RBC) [Entitic mass] 34.3 pg High 27.0-32.0 [facility] Comment on above: Performed By: #### L 100.0100, L500.4050, L501.9940 ####[facility] [address] [place], [address] MCHC (RBC) [Mass/Vol] 33.8 g/dL Normal 32-36 [facility] Comment on above: Performed By: #### L 100.0100, L500.4050, L501.9940 ####[facility] [address] [place], [address] MCV (RBC) [Entitic vol] 101.3 fL High 80-94 [facility] Comment on above: Performed By: #### L 100.0100, L500.4050, L501.9940 ####[facility] [address] [place], [address] Monocytes/100 WBC (Bld) 9.1 % Normal 0-10 [facility] Comment on above: Performed By: #### L 100.0100, L500.4050, L501.9940 ####[facility] [address] [place], [address] Neutrophils/100 WBC (Bld) 41.0 % Low 47-70 [facility] Comment on above: Performed By: #### L 100.0100, L500.4050, L501.9940 ####[facility] [address] [place], [address] Nucleated RBC (Bld) [#/Vol] 0 10*3/uL Normal 0-5 [facility] Comment on above: Performed By: #### L 100.0100, L500.4050, L501.9940 ####[facility] [address] [place], [address] Platelet mean volume (Bld) [Entitic vol] 9.1 fL Normal 6.2-12.0 [facility] Comment on above: Performed By: #### L 100.0100, L500.4050, L501.9940 ####[facility] [address] [place], [address] Platelets (Bld) [#/Vol] 153 10*3/uL Normal 150-450 [facility] Comment on above: Performed By: #### L 100.0100, L500.4050, L501.9940 ####[facility] [address] [place], [address] RBC (Bld) [#/Vol] 3.91 10*6/uL Low 4.6-6.2 [facility] Comment on above: Performed By: #### L 100.0100, L500.4050, L501.9940 ####[facility] [address] [place], [address] RDW SD 50.3 fl High 35.1-43.9 [facility] Comment on above: Performed By: #### L 100.0100, L500.4050, L501.9940 ####[facility] [address] [place], [address] WBC (Bld) [#/Vol] 5.6 10*3/uL Normal 4.4-11.0 [facility] Comment on above: Performed By: #### L 100.0100, L500.4050, L501.9940 ####[facility] [address] [place], [address] Carbon dioxide, total [Moles /volume] in Central venous bloodOrdered By: Carolina Mcgee on 11-07-2024 CO2 [Moles/Vol] 22.5 mmol/L 21.0-32.0 [facility] Chloride assayOrdered By: Sánchez Mcgee on 11-07-2024 Chloride [Moles/Vol] 111 mmol/L High 98-108 [facility] Comprehensive Metabolic Prof ilon 11-07-2024 Albumin [Mass/Vol] 3.8 g/dL Normal 3.4-4.8 [facility] Comment on above: Performed By: #### L 100.0100, L500.4050, L501.9940 ####[facility] [address] [place], [address] Albumin/Globulin [Mass ratio] 1.3 {ratio} Normal 0.9-2.4 [facility] Comment on above: Performed By: #### L 100.0100, L500.4050, L501.9940 ####[facility] [address] [place], [address] ALK PHOS 51 U/L Normal 40-129 [facility] Comment on above: Performed By: #### L 100.0100, L500.4050, L501.9940 ####[facility] [address] [place], [address] ALT [Catalytic activity/Vol] U/L Normal <=46 [facility] Comment on above: Performed By: #### L 100.0100, L500.4050, L501.9940 ####[facility] [address] [place], [address] AST [Catalytic activity/Vol] 15 U/L Normal <=37 [facility] Comment on above: Performed By: #### L 100.0100, L500.4050, L501.9940 ####[facility] [address] [place], [address] Bilirubin [Mass/Vol] 0.55 mg/dL Normal 0.00-1.30 [facility] Comment on above: Performed By: #### L 100.0100, L500.4050, L501.9940 ####[facility] [address] [place], [address] BUN/CRE 23.8 RATIO High 10-20 [facility] Comment on above: Performed By: #### L 100.0100, L500.4050, L501.9940 ####[facility] [address] [place], [address] Calcium [Mass/Vol] 8.9 mg/dL Normal 7.6-11.0 [facility] Comment on above: Performed By: #### L 100.0100, L500.4050, L501.9940 ####[facility] [address] [place], [address] Chloride [Moles/Vol] 111 mmol/L High 98-108 [facility] Comment on above: Performed By: #### L 100.0100, L500.4050, L501.9940 ####[facility] [address] [place], [address] CO2 [Moles/Vol] 22.5 mmol/L Normal 21.0-32.0 [facility] Comment on above: Performed By: #### L 100.0100, L500.4050, L501.9940 ####[facility] [address] [place], [address] Creatinine [Mass/Vol] 0.90 mg/dL Normal 0.70-1.20 [facility] Comment on above: Performed By: #### L 100.0100, L500.4050, L501.9940 ####[facility] [address] [place], [address] ECRCL 59.71 ml/min Normal 50-250 [facility] Comment on above: Performed By: #### L 100.0100, L500.4050, L501.9940 ####[facility] [address] [place], [address] GAP 11 Normal 5-15 [facility] Comment on above: Performed By: #### L 100.0100, L500.4050, L501.9940 ####[facility] [address] [place], [address] GFR/1.73 sq M.predicted among non-blacks MDRD (S/P/Bld) [Vol rate/Area] 83 mL/min/{1.73_m2} Normal >60 [facility] Comment on above: Result Comment: mL/m in/1.73m2 CKD-EPI Creatinine Equation (2020) Performed By: #### L 100.0100, L500.4050, L501.9940 ####[facility] [address] [place], [address] Globulin (S) [Mass/Vol] 2.9 g/dL Normal 2.2-4.2 [facility] Comment on above: Performed By: #### L 100.0100, L500.4050, L501.9940 ####[facility] [address] [place], [address] Glucose [Mass/Vol] 107 mg/dL High 70-99 [facility] Comment on above: Performed By: #### L 100.0100, L500.4050, L501.9940 ####[facility] [address] [place], [address] Potassium [Moles/Vol] 4.2 mmol/L Normal 3.3-5.1 [facility] Comment on above: Performed By: #### L 100.0100, L500.4050, L501.9940 ####[facility] [address] [place], [address] Sodium [Moles/Vol] 145 mmol/L Normal 133-145 [facility] Comment on above: Performed By: #### L 100.0100, L500.4050, L501.9940 ####[facility] [address] [place], [address] T PROT 6.7 g/dL Normal 5.9-8.4 [facility] Comment on above: Performed By: #### L 100.0100, L500.4050, L501.9940 ####[facility] [address] [place], [place], [id number] Urea nitrogen [Mass/Vol] 21 mg/dL High 4-19 [facility] Comment on above: Performed By: #### L 100.0100, L500.4050, L501.9940 ####[facility] [address] [place], [place], [id number] Eosinophil percentageOrdered By: Carolina Mcgee on 11-07-2024 Eosinophils/100 WBC (Bld) 3.0 % 0-5 [facility] Erythrocyte distribution wid th ratioOrdered By: [facility] on 11-07-2024 Erythrocyte distribution width (RBC) [Ratio] 13.5 % 11.6-14.6 [facility] Erythrocyte distribution wid th standard deviationOrdered By: [facility] on 11-07-2024 Erythrocyte distribution width (RBC) [Ratio] 50.3 fl High 35.1-43.9 [facility] Glomerular filtration rate ( GFR) estimation/1.73 sq m using serum, plasma, or whole bOrdered By: Carolina Mcgee on 11-07-2024 GFR/1.73 sq M.predicted among non-blacks MDRD (S/P/Bld) [Vol rate/Area] 83 mL/min/{1.73_m2} >60 [facility] Comment on above: mL/min/1.73m2 CKD-EP I Creatinine Equation (2020) Hematocrit Auto (Bld) [Volum e fraction]Ordered By: Carolina Mcgee on 11-07-2024 Hematocrit (Bld) [Volume fraction] 39.6 % Low 40-54 [facility] Hemoglobin measurementOrdere d By: Carolina Mcgee on 11-07-2024 Hemoglobin (Bld) [Mass/Vol] 13.4 g/dL 13.0-16.5 [facility] Immature granulocytes/100 WB C Auto (Bld)Ordered By: Carolina Mcgee on 11-07-2024 Immature granulocytes/100 WBC (Bld) 0.700 % 0.0-0.9 [facility] Comment on above: IG% - Immature Granu locytes (promyelocytes, myelocytes and metamyelocytes) > 1% indicates that a LEFT SHIFT is Present. Laboratory - Chemistry and C hemistry - challengeOrdered By: Carolina Mcgee on 11-07-2024 AST [Catalytic activity/Vol] 15 U/L <38 [facility] MCV (mean corpuscular volume ) determinationOrdered By: Carolina Mcgee on 11-07-2024 MCV (RBC) [Entitic vol] 101.3 fL High 80-94 [facility] Mean corpuscular hemoglobin (MCH) determinationOrdered By: [facility] on 11-07-2024 MCH (RBC) [Entitic mass] 34.3 pg High 27.0-32.0 [facility] Mean corpuscular hemoglobin concentration (MCHC) determinationOrdered By: [facility] on 11-07-2024 MCHC (RBC) [Mass/Vol] 33.8 g/dL 32-36 [facility] Mean platelet volume determi nationOrdered By: Carolina Mcgee on 11-07-2024 Platelet mean volume (Bld) [Entitic vol] 9.1 fL 6.2-12.0 [facility] Monocyte percentageOrdered B y: Carolina Mcgee on 11-07-2024 Monocytes/100 WBC (Bld) 9.1 % 0-10 [facility] Neutrophil percentageOrdered By: [facility] Arely on 11-07-2024 Neutrophils/100 WBC (Bld) 41.0 % Low 47-70 [facility] Nucleated red blood cell per centageOrdered By: [facility] on 11-07-2024 Nucleated RBC/100 WBC (Bld) [Ratio] 0 % 0-5 [facility] Oncology Visit Reporton 10-22 Oncology Visit Report Normal [facility] PSA,Total- Diagnosticon 10-22 PSA, DIAGNOSTIC < 0.02 Normal 0.00-4.00 [facility] Comment on above: Result Comment: This test was performed using the Jose Wizer tPSAmethod. Measured values of a patient??sample can varydepending on the testing procedure used. PSA valuesdetermined on patient samples by different testingprocedures cannot be used interchangeably. If there is achange in PSA assays while monitoring therapy, sequentialtesting should be performed to confirm baseline values. Performed By: #### L 100.0100, L500.4050, L501.9940 ####[facility] [address] [place], [address] Platelet countOrdered By: Sánchez Mcgee on 11-07-2024 Platelets (Bld) [#/Vol] 153 10*3/uL 150-450 [facility] Potassium measurement (mass/ volume)Ordered By: Carolina Mcgee on 11-07-2024 Potassium (Unsp spec) [Mass/Vol] 4.2 mmol/L 3.3-5.1 [facility] RBC Auto (Bld) [#/Vol]Ordere d By: Carolina Mcgee on 11-07-2024 RBC (Bld) [#/Vol] 3.91 10*6/uL Low 4.6-6.2 [facility] Serum creatinine measurement (mass/volume)Ordered By: Carolina Mcgee on 11-07-2024 Creatinine [Mass/Vol] 0.90 mg/dL 0.70-1.20 [facility] Serum globulin measurementOr dered By: Carolina Mcgee on 11-07-2024 Globulin (S) [Mass/Vol] 2.9 g/dL 2.2-4.2 [facility] Serum glucose measurement (m ass/volume)Ordered By: Carolina Mcgee on 11-07-2024 Glucose [Mass/Vol] 107 mg/dL High 70-99 [facility] Serum or plasma alanine rausch otransferase (ALT) measurementOrdered By: Carolina Mcgee on 11-07-2024 ALT [Catalytic activity/Vol] U/L <47 [facility] Serum or plasma albumin patricia urement (mass/volume)Ordered By: Carolina Mcgee on 11-07-2024 Albumin [Mass/Vol] 3.8 g/dL 3.4-4.8 [facility] Serum or plasma albumin/glob ulin mass ratioOrdered By: Carolina Mcgee on 11-07-2024 Albumin/Globulin [Mass ratio] 1.3 {ratio} 0.9-2.4 [facility] Serum or plasma alkaline martín sphatase measurementOrdered By: Carolina Mcgee on 11-07-2024 ALP [Catalytic activity/Vol] 51 U/L 40-129 [facility] Serum or plasma calcium patircia urement (mass/volume)Ordered By: Carolina Mcgee on 11-07-2024 Calcium [Mass/Vol] 8.9 mg/dL 7.6-11.0 [facility] Serum or plasma urea nitroge n measurement (mass/volume)Ordered By: Carolina Mcgee on 11-07-2024 Urea nitrogen [Mass/Vol] 21 mg/dL High 4-19 [facility] Sodium levelOrdered By: Vaishnavi Mcgee on 11-07-2024 Sodium [Moles/Vol] 145 mmol/L 133-145 [facility] Total proteinOrdered By: Graham Mcgee on 11-07-2024 Protein [Mass/Vol] 6.7 g/dL 5.9-8.4 [facility] White blood cell (WBC) count Ordered By: Carolina Mcgee on 11-07-2024 WBC (Bld) [#/Vol] 5.6 10*3/uL 4.4-11.0 [facility] Internal Medicine Office Vis odin 10-25-2024 Internal Medicine Office Visit Normal [facility] Laboratory - Hematology and Cell countsOrdered By: Dyan Kyle on 10-25-2024 HbA1c (Bld) [Mass fraction] 5.7 % 4.2-6.3 [facility] Absolute lymphocyte countOrd ered By: Carolina Mcgee on 09-26-2024 Lymphocytes Auto (Unsp spec) [#/Vol] 2.33 10*3/uL 0.83-4.51 [facility] Absolute neutrophil countOrd ered By: Carolina Mcgee on 09-26-2024 Neutrophils (Bld) [#/Vol] 2.0 10*3/uL 2.0-7.7 [facility] Anion gap in Serum or Plasma Ordered By: Carolina Mcgee on 09-26-2024 Anion gap [Moles/Vol] 10 mmol/L 5-15 [facility] Automated lymphocyte count a s percentage of total leukocytesOrdered By: Carolina Hesterloretta on 09-26-2024 Lymphocytes/100 WBC Auto (Unsp spec) 46.6 % High 19-41 [facility] BUN/creatinine ratioOrdered By: [facility] Hesterloretta on 09-26-2024 Urea nitrogen/Creatinine [Mass ratio] 24.2 mg/mg High 10-20 [facility] Basophil percentageOrdered B y: Carolina Arely on 09-26-2024 Basophils/100 WBC (Bld) 0.6 % 0-1 [facility] Bilirubin, totalOrdered By: [facility] Kacieloretta on 09-26-2024 Bilirubin [Mass/Vol] 0.54 mg/dL 0.00-1.30 [facility] CBC W/Diff, Automatedon Absolute Lymph 2.33 X10 3/uL Normal 0.83-4.51 [facility] Comment on above: Performed By: #### L 501.9940, L500.4050, L100.0100 ####[facility] [address] [place], [address] Absolute Neut 2.0 X10 3/uL Normal 2.0-7.7 [facility] Comment on above: Performed By: #### L 501.9940, L500.4050, L100.0100 ####[facility] [address] [place], [address] Basophils/100 WBC (Bld) 0.6 % Normal 0-1 [facility] Comment on above: Performed By: #### L 501.9940, L500.4050, L100.0100 ####[facility] [address] [place], [address] Eosinophils/100 WBC (Bld) 2.8 % Normal 0-5 [facility] Comment on above: Performed By: #### L 501.9940, L500.4050, L100.0100 ####[facility] [address] [place], [address] Erythrocyte distribution width (RBC) [Ratio] 13.4 % Normal 11.6-14.6 [facility] Comment on above: Performed By: #### L 501.9940, L500.4050, L100.0100 ####[facility] [address] [place], [address] Hematocrit (Bld) [Volume fraction] 40.2 % Normal 40-54 [facility] Comment on above: Performed By: #### L 501.9940, L500.4050, L100.0100 ####[facility] [address] [place], [address] Hemoglobin (Bld) [Mass/Vol] 13.4 g/dL Normal 13.0-16.5 [facility] Comment on above: Performed By: #### L 501.9940, L500.4050, L100.0100 ####[facility] [address] [place], [address] IG% 0.600 Normal 0.0-0.9 [facility] Comment on above: Result Comment: IG% - Immature Granulocytes (promyelocytes, myelocytes andmetamyelocytes) > 1% indicates that a LEFT SHIFT is Present. Performed By: #### L 501.9940, L500.4050, L100.0100 ####[facility] [address] [place], [address] Lymphocytes/100 WBC (Bld) 46.6 % High 19-41 [facility] Comment on above: Performed By: #### L 501.9940, L500.4050, L100.0100 ####[facility] [address] [place], [address] MCH (RBC) [Entitic mass] 34.4 pg High 27.0-32.0 [facility] Comment on above: Performed By: #### L 501.9940, L500.4050, L100.0100 ####[facility] [address] [place], [address] MCHC (RBC) [Mass/Vol] 33.3 g/dL Normal 32-36 [facility] Comment on above: Performed By: #### L 501.9940, L500.4050, L100.0100 ####[facility] [address] [place], [address] MCV (RBC) [Entitic vol] 103.1 fL High 80-94 [facility] Comment on above: Performed By: #### L 501.9940, L500.4050, L100.0100 ####[facility] [address] [place], [address] Monocytes/100 WBC (Bld) 8.8 % Normal 0-10 [facility] Comment on above: Performed By: #### L 501.9940, L500.4050, L100.0100 ####[facility] [address] [place], [address] Neutrophils/100 WBC (Bld) 40.6 % Low 47-70 [facility] Comment on above: Performed By: #### L 501.9940, L500.4050, L100.0100 ####[facility] [address] [place], [address] Nucleated RBC (Bld) [#/Vol] 0 10*3/uL Normal 0-5 [facility] Comment on above: Performed By: #### L 501.9940, L500.4050, L100.0100 ####[facility] [address] [place], [address] Platelet mean volume (Bld) [Entitic vol] 9.2 fL Normal 6.2-12.0 [facility] Comment on above: Performed By: #### L 501.9940, L500.4050, L100.0100 ####[facility] [address] [place], [address] Platelets (Bld) [#/Vol] 175 10*3/uL Normal 150-450 [facility] Comment on above: Performed By: #### L 501.9940, L500.4050, L100.0100 ####[facility] [address] [place], [address] RBC (Bld) [#/Vol] 3.90 10*6/uL Low 4.6-6.2 [facility] Comment on above: Performed By: #### L 501.9940, L500.4050, L100.0100 ####[facility] [address] [place], [address] RDW SD 51.2 fl High 35.1-43.9 [facility] Comment on above: Performed By: #### L 501.9940, L500.4050, L100.0100 ####[facility] [address] [place], [address] WBC (Bld) [#/Vol] 5.0 10*3/uL Normal 4.4-11.0 [facility] Comment on above: Performed By: #### L 501.9940, L500.4050, L100.0100 ####[facility] [address] [place], [address] Carbon dioxide, total [Moles /volume] in Central venous bloodOrdered By: Carolina Mcgee on 09-26-2024 CO2 [Moles/Vol] 25.9 mmol/L 21.0-32.0 [facility] Chloride assayOrdered By: Sánchez Mcgee on 09-26-2024 Chloride [Moles/Vol] 107 mmol/L 98-108 [facility] Comprehensive Metabolic Prof ilon 09-26-2024 Albumin [Mass/Vol] 3.7 g/dL Normal 3.4-4.8 [facility] Comment on above: Performed By: #### L 501.9940, L500.4050, L100.0100 ####[facility] [address] [place], [address] Albumin/Globulin [Mass ratio] 1.2 {ratio} Normal 0.9-2.4 [facility] Comment on above: Performed By: #### L 501.9940, L500.4050, L100.0100 ####[facility] [address] [place], [address] ALK PHOS 52 U/L Normal 40-129 [facility] Comment on above: Performed By: #### L 501.9940, L500.4050, L100.0100 ####[facility] [address] [place], [address] ALT [Catalytic activity/Vol] U/L Normal <=46 [facility] Comment on above: Performed By: #### L 501.9940, L500.4050, L100.0100 ####[facility] [address] [place], [address] AST [Catalytic activity/Vol] 16 U/L Normal <=37 [facility] Comment on above: Performed By: #### L 501.9940, L500.4050, L100.0100 ####[facility] [address] [place], [address] Bilirubin [Mass/Vol] 0.54 mg/dL Normal 0.00-1.30 [facility] Comment on above: Performed By: #### L 501.9940, L500.4050, L100.0100 ####[facility] [address] [place], [address] BUN/CRE 24.2 RATIO High 10-20 [facility] Comment on above: Performed By: #### L 501.9940, L500.4050, L100.0100 ####[facility] [address] [place], [address] Calcium [Mass/Vol] 9.0 mg/dL Normal 7.6-11.0 [facility] Comment on above: Performed By: #### L 501.9940, L500.4050, L100.0100 ####[facility] [address] [place], [address] Chloride [Moles/Vol] 107 mmol/L Normal 98-108 [facility] Comment on above: Performed By: #### L 501.9940, L500.4050, L100.0100 ####[facility] [address] [place], [address] CO2 [Moles/Vol] 25.9 mmol/L Normal 21.0-32.0 [facility] Comment on above: Performed By: #### L 501.9940, L500.4050, L100.0100 ####[facility] [address] [place], [address] Creatinine [Mass/Vol] 1.05 mg/dL Normal 0.70-1.20 [facility] Comment on above: Performed By: #### L 501.9940, L500.4050, L100.0100 ####[facility] [address] [place], [address] ECRCL 51.18 ml/min Normal 50-250 [facility] Comment on above: Performed By: #### L 501.9940, L500.4050, L100.0100 ####[facility] [address] [place], [address] GAP 10 Normal 5-15 [facility] Comment on above: Performed By: #### L 501.9940, L500.4050, L100.0100 ####[facility] [address] [place], [address] GFR/1.73 sq M.predicted among non-blacks MDRD (S/P/Bld) [Vol rate/Area] 69 mL/min/{1.73_m2} Normal >60 [facility] Comment on above: Result Comment: mL/m in/1.73m2 CKD-EPI Creatinine Equation (2020) Performed By: #### L 501.9940, L500.4050, L100.0100 ####[facility] [address] [place], [address] Globulin (S) [Mass/Vol] 3.0 g/dL Normal 2.2-4.2 [facility] Comment on above: Performed By: #### L 501.9940, L500.4050, L100.0100 ####[facility] [address] [place], [address] Glucose [Mass/Vol] 121 mg/dL High 70-99 [facility] Comment on above: Performed By: #### L 501.9940, L500.4050, L100.0100 ####[facility] [address] [place], [address] Potassium [Moles/Vol] 4.2 mmol/L Normal 3.3-5.1 [facility] Comment on above: Performed By: #### L 501.9940, L500.4050, L100.0100 ####[facility] [address] [place], [address] Sodium [Moles/Vol] 143 mmol/L Normal 133-145 [facility] Comment on above: Performed By: #### L 501.9940, L500.4050, L100.0100 ####[facility] [address] [place], [address] T PROT 6.8 g/dL Normal 5.9-8.4 [facility] Comment on above: Performed By: #### L 501.9940, L500.4050, L100.0100 ####[facility] [address] [place], [place], [address] Urea nitrogen [Mass/Vol] 25 mg/dL High 4-19 [facility] Comment on above: Performed By: #### L 501.9940, L500.4050, L100.0100 ####[facility] [address] [place], [address] Eosinophil percentageOrdered By: Carolina Mcgee on 09-26-2024 Eosinophils/100 WBC (Bld) 2.8 % 0-5 [facility] Erythrocyte distribution wid th ratioOrdered By: [facility] 09-[facility]24 Erythrocyte distribution width (RBC) [Ratio] 13.4 % 11.6-14.6 [facility] Erythrocyte distribution wid th standard deviationOrdered By: [facility] on 09-26-2024 Erythrocyte distribution width (RBC) [Ratio] 51.2 fl High 35.1-43.9 [facility] Glomerular filtration rate ( GFR) estimation/1.73 sq m using serum, plasma, or whole bOrdered By: Carolina Mcgee on 09-26-2024 GFR/1.73 sq M.predicted among non-blacks MDRD (S/P/Bld) [Vol rate/Area] 69 mL/min/{1.73_m2} >60 [facility] Comment on above: mL/min/1.73m2 CKD-EP I Creatinine Equation (2020) Hematocrit Auto (Bld) [Volum e fraction]Ordered By: Carolina Mcgee on 09-26-2024 Hematocrit (Bld) [Volume fraction] 40.2 % 40-54 [facility] Hemoglobin measurementOrdere d By: Carolina Mcgee on 09-26-2024 Hemoglobin (Bld) [Mass/Vol] 13.4 g/dL 13.0-16.5 [facility] Immature granulocytes/100 WB C Auto (Bld)Ordered By: Carolina Mcgee on 09-26-2024 Immature granulocytes/100 WBC (Bld) 0.600 % 0.0-0.9 [facility] Comment on above: IG% - Immature Granu locytes (promyelocytes, myelocytes and metamyelocytes) > 1% indicates that a LEFT SHIFT is Present. Laboratory - Chemistry and C hemistry - challengeOrdered By: Carolina Mcgee on 09-26-2024 AST [Catalytic activity/Vol] 16 U/L <38 [facility] MCV (mean corpuscular volume ) determinationOrdered By: [facility] Arely on 09-26-2024 MCV (RBC) [Entitic vol] 103.1 fL High 80-94 [facility] Mean corpuscular hemoglobin (MCH) determinationOrdered By: [facility] Arely on 09-26-2024 MCH (RBC) [Entitic mass] 34.4 pg High 27.0-32.0 [facility] Mean corpuscular hemoglobin concentration (MCHC) determinationOrdered By: [facility] Arely on 09-26-2024 MCHC (RBC) [Mass/Vol] 33.3 g/dL 32-36 [facility] Mean platelet volume determi nationOrdered By: [facility] on 09-26-2024 Platelet mean volume (Bld) [Entitic vol] 9.2 fL 6.2-12.0 [facility] Monocyte percentageOrdered B y: [facility] Arely on 09-26-2024 Monocytes/100 WBC (Bld) 8.8 % 0-10 [facility] Neutrophil percentageOrdered By: [facility] Arely on 09-26-2024 Neutrophils/100 WBC (Bld) 40.6 % Low 47-70 [facility] Nucleated red blood cell per centageOrdered By: [facility] on 09-26-2024 Nucleated RBC/100 WBC (Bld) [Ratio] 0 % 0-5 [facility] Oncology Visit Reporton Oncology Visit Report Normal [facility] PSA,Total- Diagnosticon PSA, DIAGNOSTIC < 0.02 Normal 0.00-4.00 [facility] Comment on above: Result Comment: This test was performed using the [employer] tPSAmethod. Measured values of a patient??sample can varydepending on the testing procedure used. PSA valuesdetermined on patient samples by different testingprocedures cannot be used interchangeably. If there is achange in PSA assays while monitoring therapy, sequentialtesting should be performed to confirm baseline values. Performed By: #### L 501.9900, L500.4050, L100.0100 ####[facility] [address] [place], [address] Platelet countOrdered By: Sánchez Mcgee on 09-26-2024 Platelets (Bld) [#/Vol] 175 10*3/uL 150-450 [facility] Potassium measurement (mass/ volume)Ordered By: Carolina Mcgee on 09-26-2024 Potassium (Unsp spec) [Mass/Vol] 4.2 mmol/L 3.3-5.1 [facility] RBC Auto (Bld) [#/Vol]Ordere d By: Carolina Mcgee on 09-26-2024 RBC (Bld) [#/Vol] 3.90 10*6/uL Low 4.6-6.2 [facility] Serum creatinine measurement (mass/volume)Ordered By: Carolina Mcgee on 09-26-2024 Creatinine [Mass/Vol] 1.05 mg/dL 0.70-1.20 [facility] Serum globulin measurementOr dered By: Carolina Mcgee on 09-26-2024 Globulin (S) [Mass/Vol] 3.0 g/dL 2.2-4.2 [facility] Serum glucose measurement (m ass/volume)Ordered By: Carolina Mcgee on 09-26-2024 Glucose [Mass/Vol] 121 mg/dL High 70-99 [facility] Serum or plasma alanine rausch otransferase (ALT) measurementOrdered By: Carolina Mcgee on 09-26-2024 ALT [Catalytic activity/Vol] U/L <47 [facility] Serum or plasma albumin patricia urement (mass/volume)Ordered By: Carolina Mcgee on 09-26-2024 Albumin [Mass/Vol] 3.7 g/dL 3.4-4.8 [facility] Serum or plasma albumin/glob ulin mass ratioOrdered By: Carolina Mcgee on 09-26-2024 Albumin/Globulin [Mass ratio] 1.2 {ratio} 0.9-2.4 [facility] Serum or plasma alkaline martín sphatase measurementOrdered By: Carolina Mcgee on 09-26-2024 ALP [Catalytic activity/Vol] 52 U/L 40-129 [facility] Serum or plasma calcium patricia urement (mass/volume)Ordered By: Carolina Mcgee on 09-26-2024 Calcium [Mass/Vol] 9.0 mg/dL 7.6-11.0 [facility] Serum or plasma urea nitroge n measurement (mass/volume)Ordered By: Carolina Mcgee on 09-26-2024 Urea nitrogen [Mass/Vol] 25 mg/dL High 4-19 [facility] Sodium levelOrdered By: Vaishnavi Mcgee on 09-26-2024 Sodium [Moles/Vol] 143 mmol/L 133-145 [facility] Total proteinOrdered By: Graham Mcgee on 09-26-2024 Protein [Mass/Vol] 6.8 g/dL 5.9-8.4 [facility] White blood cell (WBC) count Ordered By: Carolina Mcgee on 09-26-2024 WBC (Bld) [#/Vol] 5.0 10*3/uL 4.4-11.0 [facility] Cardiology Visit Reporton Cardiology Visit Report Normal [facility] CBC W/Diff, Automatedon 07-23 Absolute Lymph 2.43 X10 3/uL Normal 0.83-4.51 [facility] Comment on above: Performed By: #### L 500.4050, L100.0100, L501.9940 ####[facility] [address] [place], [address] Absolute Neut 2.2 X10 3/uL Normal 2.0-7.7 [facility] Comment on above: Performed By: #### L 500.4050, L100.0100, L501.9940 ####[facility] [address] [place], [address] Basophils/100 WBC (Bld) 0.6 % Normal 0-1 [facility] Comment on above: Performed By: #### L 500.4050, L100.0100, L501.9940 ####[facility] [address] [place], [address] Eosinophils/100 WBC (Bld) 1.9 % Normal 0-5 [facility] Comment on above: Performed By: #### L 500.4050, L100.0100, L501.9940 ####[facility] [address] [place], [address] Erythrocyte distribution width (RBC) [Ratio] 13.5 % Normal 11.6-14.6 [facility] Comment on above: Performed By: #### L 500.4050, L100.0100, L501.9940 ####[facility] [address] [place], [address] Hematocrit (Bld) [Volume fraction] 41.1 % Normal 40-54 [facility] Comment on above: Performed By: #### L 500.4050, L100.0100, L501.9940 ####[facility] [address] [place], [address] Hemoglobin (Bld) [Mass/Vol] 14.0 g/dL Normal 13.0-16.5 [facility] Comment on above: Performed By: #### L 500.4050, L100.0100, L501.9940 ####[facility] [address] [place], [address] IG% 0.600 Normal 0.0-0.9 [facility] Comment on above: Result Comment: IG% - Immature Granulocytes (promyelocytes, myelocytes andmetamyelocytes) > 1% indicates that a LEFT SHIFT is Present. Performed By: #### L 500.4050, L100.0100, L501.9940 ####[facility] [address] [place], [address] Lymphocytes/100 WBC (Bld) 46.3 % High 19-41 [facility] Comment on above: Performed By: #### L 500.4050, L100.0100, L501.9940 ####[facility] [address] [place], [address] MCH (RBC) [Entitic mass] 34.4 pg High 27.0-32.0 [facility] Comment on above: Performed By: #### L 500.4050, L100.0100, L501.9940 ####[facility] [address] [place], [address] MCHC (RBC) [Mass/Vol] 34.1 g/dL Normal 32-36 [facility] Comment on above: Performed By: #### L 500.4050, L100.0100, L501.9940 ####[facility] [address] [place], [address] MCV (RBC) [Entitic vol] 101.0 fL High 80-94 [facility] Comment on above: Performed By: #### L 500.4050, L100.0100, L501.9940 ####[facility] [address] [place], [address] Monocytes/100 WBC (Bld) 8.8 % Normal 0-10 [facility] Comment on above: Performed By: #### L 500.4050, L100.0100, L501.9940 ####[facility] [address] [place], [address] Neutrophils/100 WBC (Bld) 41.8 % Low 47-70 [facility] Comment on above: Performed By: #### L 500.4050, L100.0100, L501.9940 ####[facility] [address] [place], [address] Nucleated RBC (Bld) [#/Vol] 0 10*3/uL Normal 0-5 [facility] Comment on above: Performed By: #### L 500.4050, L100.0100, L501.9940 ####[facility] [address] [place], [address] Platelet mean volume (Bld) [Entitic vol] 9.2 fL Normal 6.2-12.0 [facility] Comment on above: Performed By: #### L 500.4050, L100.0100, L501.9940 ####[facility] [address] [place], [address] Platelets (Bld) [#/Vol] 167 10*3/uL Normal 150-450 [facility] Comment on above: Performed By: #### L 500.4050, L100.0100, L501.9940 ####[facility] [address] [place], [address] RBC (Bld) [#/Vol] 4.07 10*6/uL Low 4.6-6.2 [facility] Comment on above: Performed By: #### L 500.4050, L100.0100, L501.9940 ####[facility] [address] [place], [address] RDW SD 50.0 fl High 35.1-43.9 [facility] Comment on above: Performed By: #### L 500.4050, L100.0100, L501.9940 ####[facility] [address] [place], [address] WBC (Bld) [#/Vol] 5.3 10*3/uL Normal 4.4-11.0 [facility] Comment on above: Performed By: #### L 500.4050, L100.0100, L501.9940 ####[facility] [address] [place], [address] Comprehensive Metabolic Prof [facility] 08-15-2024 BUN/CRE 20.9 RATIO High 10-20 [facility] Comment on above: Performed By: #### L 500.4050, L100.0100, L501.9940 ####[facility] [address] [place], [address] Urea nitrogen [Mass/Vol] 19 mg/dL Normal 4-19 [facility] Comment on above: Performed By: #### L 500.4050, L100.0100, L501.9940 ####[facility] [address] [place], [address] Oncology Visit Reporton 07-23 Oncology Visit Report Normal [facility] PSA,Total- Diagnosticon 07-23 PSA, DIAGNOSTIC < 0.02 Normal 0.00-4.00 [facility] Comment on above: Result Comment: This test was performed using the [employer] tPSAmethod. Measured values of a patient??sample can varydepending on the testing procedure used. PSA valuesdetermined on patient samples by different testingprocedures cannot be used interchangeably. If there is achange in PSA assays while monitoring therapy, sequentialtesting should be performed to confirm baseline values. Performed By: #### L 500.4050, L100.0100, L501.9940 ####[facility] [address] [place], [address] Bone Scan Whole Bodyon 08-07 Bone Scan Whole Body Normal [facility] Absolute neutrophil countOrd ered By: Rachael Posada on 07-04-2024 Neutrophils (Bld) [#/Vol] 2.5 10*3/uL 2.0-7.7 [facility] Albumin to globulin ratioOrd ered By: Rachael Posada on 07-04-2024 Albumin/Globulin [Mass ratio] 0.8 {ratio} Low 0.9-2.4 [facility] Basophil percentageOrdered B y: Rachael Posada on 07-04-2024 Basophils/100 WBC (Bld) 0.3 % 0-1 [facility] Bilirubin, totalOrdered By: Rachael Posada on 07-04-2024 Bilirubin [Mass/Vol] 0.60 mg/dL 0.20-1.00 [facility] Comment on above: For patients on eltr ombopag therapy, use of Dimension [place] TBIL is not recommended. Blood urea nitrogen (BUN)/cr eatinine ratioOrdered By: Rachael Posada on 07-04-2024 Urea nitrogen/Creatinine [Mass ratio] 17.5 mg/mg 10-20 [facility] CBC W/Diff, Automatedon 06-24 Absolute Lymph 2.73 X10 3/uL Normal 0.83-4.51 [facility] Comment on above: Performed By: #### L 100.0100, L500.4050, L501.9940 ####[facility] [address] [place], [address] Absolute Neut 2.5 X10 3/uL Normal 2.0-7.7 [facility] Comment on above: Performed By: #### L 100.0100, L500.4050, L501.9940 ####[facility] [address] [place], [address] Basophils/100 WBC (Bld) 0.3 % Normal 0-1 [facility] Comment on above: Performed By: #### L 100.0100, L500.4050, L501.9940 ####[facility] [address] [place], [address] Eosinophils/100 WBC (Bld) 1.2 % Normal 0-5 [facility] Comment on above: Performed By: #### L 100.0100, L500.4050, L501.9940 ####[facility] [address] [place], [address] Erythrocyte distribution width (RBC) [Ratio] 13.6 % Normal 11.6-14.6 [facility] Comment on above: Performed By: #### L 100.0100, L500.4050, L501.9940 ####[facility] [address] [place], [address] Hematocrit (Bld) [Volume fraction] 41.3 % Normal 40-54 [facility] Comment on above: Performed By: #### L 100.0100, L500.4050, L501.9940 ####[facility] [address] [place], [address] Hemoglobin (Bld) [Mass/Vol] 13.5 g/dL Normal 13.0-16.5 [facility] Comment on above: Performed By: #### L 100.0100, L500.4050, L501.9940 ####[facility] [address] [place], [address] IG% 0.300 Normal 0.0-0.9 [facility] Comment on above: Result Comment: IG% - Immature Granulocytes (promyelocytes, myelocytes andmetamyelocytes) > 1% indicates that a LEFT SHIFT is Present. Performed By: #### L 100.0100, L500.4050, L501.9940 ####[facility] [address] [place], [address] Lymphocytes/100 WBC (Bld) 47.7 % High 19-41 [facility] Comment on above: Performed By: #### L 100.0100, L500.4050, L501.9940 ####[facility] [address] [place], [address] MCH (RBC) [Entitic mass] 33.8 pg High 27.0-32.0 [facility] Comment on above: Performed By: #### L 100.0100, L500.4050, L501.9940 ####[facility] [address] [place], [address] MCHC (RBC) [Mass/Vol] 32.7 g/dL Normal 32-36 [facility] Comment on above: Performed By: #### L 100.0100, L500.4050, L501.9940 ####[facility] [address] [place], [address] MCV (RBC) [Entitic vol] 103.3 fL High 80-94 [facility] Comment on above: Performed By: #### L 100.0100, L500.4050, L501.9940 ####[facility] [address] [place], [address] Monocytes/100 WBC (Bld) 7.3 % Normal 0-10 [facility] Comment on above: Performed By: #### L 100.0100, L500.4050, L501.9940 ####[facility] [address] [place], [address] Neutrophils/100 WBC (Bld) 43.2 % Low 47-70 [facility] Comment on above: Performed By: #### L 100.0100, L500.4050, L501.9940 ####[facility] [address] [place], [address] Nucleated RBC (Bld) [#/Vol] 0 10*3/uL Normal 0-5 [facility] Comment on above: Performed By: #### L 100.0100, L500.4050, L501.9940 ####[facility] [address] [place], [address] Platelet mean volume (Bld) [Entitic vol] 9.2 fL Normal 6.2-12.0 [facility] Comment on above: Performed By: #### L 100.0100, L500.4050, L501.9940 ####[facility] [address] [place], [address] Platelets (Bld) [#/Vol] 161 10*3/uL Normal 150-450 [facility] Comment on above: Performed By: #### L 100.0100, L500.4050, L501.9940 ####[facility] [address] [place], [address] RBC (Bld) [#/Vol] 4.00 10*6/uL Low 4.6-6.2 [facility] Comment on above: Performed By: #### L 100.0100, L500.4050, L501.9940 ####[facility] [address] [place], [address] RDW SD 51.8 fl High 35.1-43.9 [facility] Comment on above: Performed By: #### L 100.0100, L500.4050, L501.9940 ####[facility] [address] [place], [address] WBC (Bld) [#/Vol] 5.7 10*3/uL Normal 4.4-11.0 [facility] Comment on above: Performed By: #### L 100.0100, L500.4050, L501.9940 ####[facility] [address] [place], [address] Carbon dioxide measurementOr dered By: Rachael Posada on 07-04-2024 CO2 [Moles/Vol] 28.0 mmol/L 21.0-32.0 [facility] Chloride measurementOrdered By: Rachael Posada on 07-04-2024 Chloride [Moles/Vol] 112 mmol/L High 98-107 [facility] Comprehensive Metabolic Prof ilon 07-04-2024 Albumin [Mass/Vol] 3.2 g/dL Normal 3.2-5.0 [facility] Comment on above: Performed By: #### L 100.0100, L500.4050, L501.9940 ####[facility] [address] [place], [address] Albumin/Globulin [Mass ratio] 0.8 {ratio} Low 0.9-2.4 [facility] Comment on above: Performed By: #### L 100.0100, L500.4050, L501.9940 ####[facility] [address] [place], [address] ALK P 51 U/L Normal 45-117 [facility] Comment on above: Performed By: #### L 100.0100, L500.4050, L501.9940 ####[facility] [address] [place], [address] ALT [Catalytic activity/Vol] 13 U/L Low 16-61 [facility] Comment on above: Performed By: #### L 100.0100, L500.4050, L501.9940 ####[facility] [address] [place], [address] AST [Catalytic activity/Vol] 15 U/L Normal 15-37 [facility] Comment on above: Performed By: #### L 100.0100, L500.4050, L501.9940 ####[facility] [address] [place], [address] Bilirubin [Mass/Vol] 0.60 mg/dL Normal 0.20-1.00 [facility] Comment on above: Result Comment: For patients on eltrombopag therapy, use of Dimension [place] TBIL is not recommended. Performed By: #### L 100.0100, L500.4050, L501.9940 ####[facility] [address] [place], [address] BUN/CRE 17.5 RATIO Normal 10-20 [facility] Comment on above: Performed By: #### L 100.0100, L500.4050, L501.9940 ####[facility] [address] [place], [address] CA,Total 8.8 mg/dL Normal 8.5-10.1 [facility] Comment on above: Performed By: #### L 100.0100, L500.4050, L501.9940 ####[facility] [address] [place], [address] Chloride [Moles/Vol] 112 mmol/L High 98-107 [facility] Comment on above: Performed By: #### L 100.0100, L500.4050, L501.9940 ####[facility] [address] [place], [address] CO2 [Moles/Vol] 28.0 mmol/L Normal 21.0-32.0 [facility] Comment on above: Performed By: #### L 100.0100, L500.4050, L501.9940 ####[facility] [address] [place], [address] Creatinine [Mass/Vol] 1.14 mg/dL Normal 0.70-1.30 [facility] Comment on above: Result Comment: The validity of the calculated GFR GFRAA in patients over70 years has not been determined. Clinical correlation isessential. Performed By: #### L 100.0100, L500.4050, L501.9940 ####[facility] [address] [place], [address] ECRCL 47.14 ml/min Normal [facility] Comment on above: Performed By: #### L 100.0100, L500.4050, L501.9940 ####[facility] [address] [place], [address] EST GFR - AA 78 mL/min Normal >60 [facility] Comment on above: Result Comment: Afri can Finnish GFR Calc Performed By: #### L 100.0100, L500.4050, L501.9940 ####[facility] [address] [place], [address] GAP 5 Normal 5-15 [facility] Comment on above: Performed By: #### L 100.0100, L500.4050, L501.9940 ####[facility] [address] [place], [address] GFR/1.73 sq M.predicted among non-blacks MDRD (S/P/Bld) [Vol rate/Area] 65 mL/min/{1.73_m2} Normal >60 [facility] Comment on above: Result Comment: Non- GFR Calc Performed By: #### L 100.0100, L500.4050, L501.9940 ####[facility] [address] [place], [address] Globulin (S) [Mass/Vol] 3.8 g/dL Normal 2.2-4.2 [facility] Comment on above: Performed By: #### L 100.0100, L500.4050, L501.9940 ####[facility] [address] [place], [address] Glucose [Mass/Vol] 107 mg/dL High 74-106 [facility] Comment on above: Result Comment: Fast ing Glucose result from 100 to 125 mg/dLsuggests IMPAIRED HOMEOSTASIS per A.D.A. criteria. Performed By: #### L 100.0100, L500.4050, L501.9940 ####[facility] [address] [place], [address] Potassium [Moles/Vol] 3.9 mmol/L Normal 3.5-5.1 [facility] Comment on above: Performed By: #### L 100.0100, L500.4050, L501.9940 ####[facility] [address] [place], [address] Sodium [Moles/Vol] 146 mmol/L High 136-145 [facility] Comment on above: Performed By: #### L 100.0100, L500.4050, L501.9940 ####[facility] [address] [place], [address] T PROT 7.0 g/dL Normal 6.4-8.2 [facility] Comment on above: Performed By: #### L 100.0100, L500.4050, L501.9940 ####[facility] [address] [place], [address] Urea nitrogen [Mass/Vol] 20 mg/dL High 7-18 [facility] Comment on above: Performed By: #### L 100.0100, L500.4050, L501.9940 ####[facility] [address] [place], [address] Diagnostic total prostate sp ecific antigen (PSA) measurementOrdered By: Rachael Posada on 07-04-2024 Prostate Specific Antigen Total 0.02 ng/mL 0.0-4.0 [facility] Comment on above: This test was perfor med using the TPSA assay method for [employer] chemistry system. Values obtained with differentassay methods cannot be used interchangably.When changing PSA assays in the course of monitoring apatient, additional sequential testing should be carriedout to confirm baseline values. Eosinophil percentageOrdered By: Rachael Posada on 07-04-2024 Eosinophils/100 WBC (Bld) 1.2 % 0-5 [facility] Erythrocyte distribution wid th ratioOrdered By: Rachael Posada on 07-04-2024 Erythrocyte distribution width (RBC) [Ratio] 13.6 % 11.6-14.6 [facility] Erythrocyte distribution wid th standard deviationOrdered By: Rachael Posada on 07-04-2024 Erythrocyte distribution width (RBC) [Entitic vol] 51.8 fL High 35.1-43.9 [facility] Estimated glomerular filtrat ion rate (GFR) AmericanOrdered By: Rachael Posada on 07-04-2024 Estimated GFR (MDRD) Amer 78 mL/min >60 [facility] Comment on above: GFR Calc Estimation of creatinine lenora aranceOrdered By: Rachael Posada on 07-04-2024 Estimated Creatinine Clearance Calc 47.14 ml/min [facility] Glomerular filtration rate ( GFR) estimationOrdered By: Rachael Posada on 07-04-2024 Estimated GFR (MDRD) Non-Af Amer 65 mL/min >60 [facility] Comment on above: Non- GFR Calc Glucose measurementOrdered B y: Rachael Posada on 07-04-2024 Glucose [Mass/Vol] 107 mg/dL High 74-106 [facility] Comment on above: Fasting Glucose resu lt from 100 to 125 mg/dL suggests IMPAIRED HOMEOSTASIS per A.D.A. criteria. Hematocrit Auto (Bld) [Volum e fraction]Ordered By: Rachael Posada on 07-04-2024 Hematocrit (Bld) [Volume fraction] 41.3 % 40-54 [facility] Hemoglobin measurementOrdere d By: Rachael Posada on 07-04-2024 Hemoglobin (Bld) [Mass/Vol] 13.5 g/dL 13.0-16.5 [facility] Immature granulocytes/100 WB C Auto (Bld)Ordered By: Rachael Posada on 07-04-2024 Immature granulocytes/100 WBC (Bld) 0.300 % 0.0-0.9 [facility] Comment on above: IG% - Immature Granu locytes (promyelocytes, myelocytes and metamyelocytes) > 1% indicates that a LEFT SHIFT is Present. Laboratory - Chemistry and C hemistry - challengeOrdered By: Rachael Posada on 07-04-2024 AST [Catalytic activity/Vol] 15 U/L 15-37 [facility] Lymphocytes Auto (Unsp spec) [#/Vol]Ordered By: Rachael Posada on 07-04-2024 Lymphocytes (Bld) [#/Vol] 2.73 10*3/uL 0.83-4.51 [facility] Lymphocytes/100 WBC Auto (Un sp spec)Ordered By: Rachael Posada on 07-04-2024 Lymphocytes/100 WBC (Bld) 47.7 % High 19-41 [facility] MCV (mean corpuscular volume ) determinationOrdered By: Rachael Posada on 07-04-2024 MCV (RBC) [Entitic vol] 103.3 fL High 80-94 [facility] Mean corpuscular hemoglobin (MCH) determinationOrdered By: Rachael Posada on 07-04-2024 MCH (RBC) [Entitic mass] 33.8 pg High 27.0-32.0 [facility] Mean corpuscular hemoglobin concentration (MCHC) determinationOrdered By: Rachael McclellanAlbino on 07-04-2024 MCHC (RBC) [Mass/Vol] 32.7 g/dL 32-36 [facility] Mean platelet volume determi nationOrdered By: Rachael McclellanAlbino on 07-04-2024 Platelet mean volume (Bld) [Entitic vol] 9.2 fL 6.2-12.0 [facility] Monocyte percentageOrdered B y: Rachael Posada on 07-04-2024 Monocytes/100 WBC (Bld) 7.3 % 0-10 [facility] Neutrophil percentageOrdered By: Rachael Posada on 07-04-2024 Neutrophils/100 WBC (Bld) 43.2 % Low 47-70 [facility] Nucleated red blood cell per centageOrdered By: Rachael Posada on 07-04-2024 Nucleated RBC/100 WBC (Bld) [Ratio] 0 % 0-5 [facility] Oncology Visit Reporton 06-24 Oncology Visit Report Normal [facility] PSA,Total- Diagnosticon 06-24 PSA, DIAGNOSTIC 0.02 ng/mL Normal 0.0-4.0 [facility] Comment on above: Result Comment: This test was performed using the TPSA assay method for [facility] system. Values obtained with differentassay methods cannot be used interchangably.When changing PSA assays in the course of monitoring apatient, additional sequential testing should be carriedout to confirm baseline values. Performed By: #### L 100.0100, L500.4050, L501.9940 ####[facility] [address] [place], [address] Platelet countOrdered By: Anurag Posada on 07-04-2024 Platelets (Bld) [#/Vol] 161 10*3/uL 150-450 [facility] Potassium measurementOrdered By: Rachael Posada on 07-04-2024 Potassium [Moles/Vol] 3.9 mmol/L 3.5-5.1 [facility] RBC Auto (Bld) [#/Vol]Ordere d By: Rachael Posada on 07-04-2024 RBC (Bld) [#/Vol] 4.00 10*6/uL Low 4.6-6.2 [facility] Serum anion gap measurementO rdered By: Rachael Posada on 07-04-2024 Anion gap [Moles/Vol] 5 mmol/L 5-15 [facility] Serum globulin measurementOr dered By: Rachael Posada on 07-04-2024 Globulin (S) [Mass/Vol] 3.8 g/dL 2.2-4.2 [facility] Serum or plasma alanine rausch otransferase (ALT) measurementOrdered By: Rachael Posada on 07-04-2024 ALT [Catalytic activity/Vol] 13 U/L Low 16-61 [facility] Serum or plasma albumin patricia urement (mass/volume)Ordered By: Rachael Posada on 07-04-2024 Albumin [Mass/Vol] 3.2 g/dL 3.2-5.0 [facility] Serum or plasma alkaline martín sphatase measurementOrdered By: Rachael Posada on 07-04-2024 ALP [Catalytic activity/Vol] 51 U/L 45-117 [facility] Serum or plasma calcium patricia urement (mass/volume)Ordered By: Rachael Posada on 07-04-2024 Calcium [Mass/Vol] 8.8 mg/dL 8.5-10.1 [facility] Serum or plasma creatinine m easurement (mass/volume)Ordered By: Rachael Posada on 07-04-2024 Creatinine [Mass/Vol] 1.14 mg/dL 0.70-1.30 [facility] Comment on above: The validity of the calculated GFR & GFRAA in patients over 70 years has not been determined. Clinical correlation is essential. Serum or plasma urea nitroge n measurement (mass/volume)Ordered By: Rachael Posada on 07-04-2024 Urea nitrogen [Mass/Vol] 20 mg/dL High 7-18 [facility] Sodium levelOrdered By: Rachael Posada on 07-04-2024 Sodium [Moles/Vol] 146 mmol/L High 136-145 [facility] Total proteinOrdered By: Mert Posada on 07-04-2024 Protein [Mass/Vol] 7.0 g/dL 6.4-8.2 [facility] White blood cell (WBC) count Ordered By: Rachael Posada on 07-04-2024 WBC (Bld) [#/Vol] 5.7 10*3/uL 4.4-11.0 [facility] Emergency Department Summary on 06-03-2024 Emergency Department Summary Normal [facility] CBC W/Diff, Automatedon 12-3 Absolute Lymph 2.24 X10 3/uL Normal 0.83-4.51 [facility] Comment on above: Performed By: #### L 501.9940, L100.0100, L500.4050 ####[facility] [address] [place], [address] Absolute Neut 2.1 X10 3/uL Normal 2.0-7.7 [facility] Comment on above: Performed By: #### L 501.9940, L100.0100, L500.4050 ####[facility] [address] [place], [address] Basophils/100 WBC (Bld) 0.8 % Normal 0-1 [facility] Comment on above: Performed By: #### L 501.9940, L100.0100, L500.4050 ####[facility] [address] [place], [address] Eosinophils/100 WBC (Bld) 3.8 % Normal 0-5 [facility] Comment on above: Performed By: #### L 501.9940, L100.0100, L500.4050 ####[facility] [address] [place], [address] Erythrocyte distribution width (RBC) [Ratio] 12.9 % Normal 11.6-14.6 [facility] Comment on above: Performed By: #### L 501.9940, L100.0100, L500.4050 ####[facility] [address] [place], [address] Hematocrit (Bld) [Volume fraction] 43.7 % Normal 40-54 [facility] Comment on above: Performed By: #### L 501.9940, L100.0100, L500.4050 ####[facility] [address] [place], [address] Hemoglobin (Bld) [Mass/Vol] 14.6 g/dL Normal 13.0-16.5 [facility] Comment on above: Performed By: #### L 501.9940, L100.0100, L500.4050 ####[facility] [address] [place], [address] IG% 0.800 Normal 0.0-0.9 [facility] Comment on above: Result Comment: IG% - Immature Granulocytes (promyelocytes, myelocytes andmetamyelocytes) > 1% indicates that a LEFT SHIFT is Present. Performed By: #### L 501.9940, L100.0100, L500.4050 ####[facility] [address] [place], [address] Lymphocytes/100 WBC (Bld) 44.8 % High 19-41 [facility] Comment on above: Performed By: #### L 501.9940, L100.0100, L500.4050 ####[facility] [address] [place], [address] MCH (RBC) [Entitic mass] 33.9 pg High 27.0-32.0 [facility] Comment on above: Performed By: #### L 501.9940, L100.0100, L500.4050 ####[facility] [address] [place], [address] MCHC (RBC) [Mass/Vol] 33.4 g/dL Normal 32-36 [facility] Comment on above: Performed By: #### L 501.9940, L100.0100, L500.4050 ####[facility] [address] [place], [address] MCV (RBC) [Entitic vol] 101.4 fL High 80-94 [facility] Comment on above: Performed By: #### L 501.9940, L100.0100, L500.4050 ####[facility] [address] [place], [address] Monocytes/100 WBC (Bld) 8.2 % Normal 0-10 [facility] Comment on above: Performed By: #### L 501.9940, L100.0100, L500.4050 ####[facility] [address] [place], [address] Neutrophils/100 WBC (Bld) 41.6 % Low 47-70 [facility] Comment on above: Performed By: #### L 501.9940, L100.0100, L500.4050 ####[facility] [address] [place], [address] Nucleated RBC (Bld) [#/Vol] 0 10*3/uL Normal 0-5 [facility] Comment on above: Performed By: #### L 501.9940, L100.0100, L500.4050 ####[facility] [address] [place], [address] Platelet mean volume (Bld) [Entitic vol] 9.2 fL Normal 6.2-12.0 [facility] Comment on above: Performed By: #### L 501.9940, L100.0100, L500.4050 ####[facility] [address] [place], [address] Platelets (Bld) [#/Vol] 207 10*3/uL Normal 150-450 [facility] Comment on above: Performed By: #### L 501.9940, L100.0100, L500.4050 ####[facility] [address] [place], [address] RBC (Bld) [#/Vol] 4.31 10*6/uL Low 4.6-6.2 [facility] Comment on above: Performed By: #### L 501.9940, L100.0100, L500.4050 ####[facility] [address] [place], [address] RDW SD 48.8 fl High 35.1-43.9 [facility] Comment on above: Performed By: #### L 501.9940, L100.0100, L500.4050 ####[facility] [address] [place], [address] WBC (Bld) [#/Vol] 5.0 10*3/uL Normal 4.4-11.0 [facility] Comment on above: Performed By: #### L 501.9940, L100.0100, L500.4050 ####[facility] [address] [place], [address] Comprehensive Metabolic Prof [facility] 05-23-2024 Albumin [Mass/Vol] 3.1 g/dL Low 3.2-5.0 [facility] Comment on above: Performed By: #### L 501.9940, L100.0100, L500.4050 ####[facility] [address] [place], [address] Albumin/Globulin [Mass ratio] 0.7 {ratio} Low 0.9-2.4 [facility] Comment on above: Performed By: #### L 501.9940, L100.0100, L500.4050 ####[facility] [address] [place], [address] ALK P 61 U/L Normal 45-117 [facility] Comment on above: Performed By: #### L 501.9940, L100.0100, L500.4050 ####[facility] [address] [place], [address] ALT [Catalytic activity/Vol] 9 U/L Low 16-61 [facility] Comment on above: Performed By: #### L 501.9940, L100.0100, L500.4050 ####[facility] [address] [place], [address] AST [Catalytic activity/Vol] 10 U/L Low 15-37 [facility] Comment on above: Performed By: #### L 501.9940, L100.0100, L500.4050 ####[facility] [address] [place], [address] Bilirubin [Mass/Vol] 0.80 mg/dL Normal 0.20-1.00 [facility] Comment on above: Result Comment: For patients on eltrombopag therapy, use of Dimension [place] TBIL is not recommended. Performed By: #### L 501.9940, L100.0100, L500.4050 ####[facility] [address] [place], [address] BUN/CRE 19.3 RATIO Normal 10-20 [facility] Comment on above: Performed By: #### L 501.9940, L100.0100, L500.4050 ####[facility] [address] [place], [address] CA,Total 8.7 mg/dL Normal 8.5-10.1 [facility] Comment on above: Performed By: #### L 501.9940, L100.0100, L500.4050 ####[facility] [address] [place], [address] Chloride [Moles/Vol] 111 mmol/L High 98-107 [facility] Comment on above: Performed By: #### L 501.9940, L100.0100, L500.4050 ####[facility] [address] [place], [address] CO2 [Moles/Vol] 27.0 mmol/L Normal 21.0-32.0 [facility] Comment on above: Performed By: #### L 501.9940, L100.0100, L500.4050 ####[facility] [address] [place], [address] Creatinine [Mass/Vol] 0.99 mg/dL Normal 0.70-1.30 [facility] Comment on above: Result Comment: The validity of the calculated GFR GFRAA in patients over70 years has not been determined. Clinical correlation isessential. Performed By: #### L 501.9940, L100.0100, L500.4050 ####[facility] [address] [place], [address] ECRCL 54.28 ml/min Normal [facility] Comment on above: Performed By: #### L 501.9940, L100.0100, L500.4050 ####[facility] [address] [place], [address] EST GFR - AA 92 mL/min Normal >60 [facility] Comment on above: Result Comment: Afri can Finnish GFR Calc Performed By: #### L 501.9940, L100.0100, L500.4050 ####[facility] [address] [place], [address] GAP 6 Normal 5-15 [facility] Comment on above: Performed By: #### L 501.9940, L100.0100, L500.4050 ####[facility] [address] [place], [address] GFR/1.73 sq M.predicted among non-blacks MDRD (S/P/Bld) [Vol rate/Area] 76 mL/min/{1.73_m2} Normal >60 [facility] Comment on above: Result Comment: Non- GFR Calc Performed By: #### L 501.9940, L100.0100, L500.4050 ####[facility] [address] [place], [address] Globulin (S) [Mass/Vol] 4.2 g/dL Normal 2.2-4.2 [facility] Comment on above: Performed By: #### L 501.9940, L100.0100, L500.4050 ####[facility] [address] [place], [address] Glucose [Mass/Vol] 121 mg/dL High 74-106 [facility] Comment on above: Result Comment: Fast ing Glucose result from 100 to 125 mg/dLsuggests IMPAIRED HOMEOSTASIS per A.D.A. criteria. Performed By: #### L 501.9940, L100.0100, L500.4050 ####[facility] [address] [place], [address] Potassium [Moles/Vol] 3.8 mmol/L Normal 3.5-5.1 [facility] Comment on above: Performed By: #### L 501.9940, L100.0100, L500.4050 ####[facility] [address] [place], [address] Sodium [Moles/Vol] 144 mmol/L Normal 136-145 [facility] Comment on above: Performed By: #### L 501.9940, L100.0100, L500.4050 ####[facility] [address] [place], [address] T PROT 7.3 g/dL Normal 6.4-8.2 [facility] Comment on above: Performed By: #### L 501.9940, L100.0100, L500.4050 ####[facility] [address] [place], [address] Urea nitrogen [Mass/Vol] 19 mg/dL High 7-18 [facility] Comment on above: Performed By: #### L 501.9940, L100.0100, L500.4050 ####[facility] [address] [place], [address] Oncology Visit Reporton 04-25 Oncology Visit Report Normal [facility] PSA,Total- Diagnosticon 04-25 PSA, DIAGNOSTIC 0.03 ng/mL Normal 0.0-4.0 [facility] Comment on above: Result Comment: This test was performed using the TPSA assay method for [employer] chemistry system. Values obtained with differentassay methods cannot be used interchangably.When changing PSA assays in the course of monitoring apatient, additional sequential testing should be carriedout to confirm baseline values. Performed By: #### L 501.9940, L100.0100, L500.4050 ####[facility] [address] [place], [address] Internal Medicine Office Vis iton 04-26-2024 Internal Medicine Office Visit Normal [facility] Laboratory - Hematology and Cell countson 04-26-2024 HbA1c (Bld) [Mass fraction] 5.7 % 4.2-6.3 [facility] CBC W/Diff, Automatedon 03-24 Absolute Lymph 2.41 X10 3/uL Normal 0.83-4.51 [facility] Comment on above: Performed By: #### L 500.4050, L100.0100, L501.9940 ####[facility] [address] [place], [address] Absolute Neut 2.1 X10 3/uL Normal 2.0-7.7 [facility] Comment on above: Performed By: #### L 500.4050, L100.0100, L501.9940 ####[facility] [address] [place], [address] Basophils/100 WBC (Bld) 0.4 % Normal 0-1 [facility] Comment on above: Performed By: #### L 500.4050, L100.0100, L501.9940 ####[facility] [address] [place], [address] Eosinophils/100 WBC (Bld) 1.4 % Normal 0-5 [facility] Comment on above: Performed By: #### L 500.4050, L100.0100, L501.9940 ####[facility] [address] [place], [address] Erythrocyte distribution width (RBC) [Ratio] 13.1 % Normal 11.6-14.6 [facility] Comment on above: Performed By: #### L 500.4050, L100.0100, L501.9940 ####[facility] [address] [place], [address] Hematocrit (Bld) [Volume fraction] 42.6 % Normal 40-54 [facility] Comment on above: Performed By: #### L 500.4050, L100.0100, L501.9940 ####[facility] [address] [place], [address] Hemoglobin (Bld) [Mass/Vol] 14.3 g/dL Normal 13.0-16.5 [facility] Comment on above: Performed By: #### L 500.4050, L100.0100, L501.9940 ####[facility] [address] [place], [address] IG% 0.200 Normal 0.0-0.9 [facility] Comment on above: Result Comment: IG% - Immature Granulocytes (promyelocytes, myelocytes andmetamyelocytes) > 1% indicates that a LEFT SHIFT is Present. Performed By: #### L 500.4050, L100.0100, L501.9940 ####[facility] [address] [place], [address] Lymphocytes/100 WBC (Bld) 48.0 % High 19-41 [facility] Comment on above: Performed By: #### L 500.4050, L100.0100, L501.9940 ####[facility] [address] [place], [address] MCH (RBC) [Entitic mass] 34.5 pg High 27.0-32.0 [facility] Comment on above: Performed By: #### L 500.4050, L100.0100, L501.9940 ####[facility] [address] [place], [address] MCHC (RBC) [Mass/Vol] 33.6 g/dL Normal 32-36 [facility] Comment on above: Performed By: #### L 500.4050, L100.0100, L501.9940 ####[facility] [address] [place], [address] MCV (RBC) [Entitic vol] 102.7 fL High 80-94 [facility] Comment on above: Performed By: #### L 500.4050, L100.0100, L501.9940 ####[facility] [address] [place], [address] Monocytes/100 WBC (Bld) 8.6 % Normal 0-10 [facility] Comment on above: Performed By: #### L 500.4050, L100.0100, L501.9940 ####[facility] [address] [place], [address] Neutrophils/100 WBC (Bld) 41.4 % Low 47-70 [facility] Comment on above: Performed By: #### L 500.4050, L100.0100, L501.9940 ####[facility] [address] [place], [address] Nucleated RBC (Bld) [#/Vol] 0 10*3/uL Normal 0-5 [facility] Comment on above: Performed By: #### L 500.4050, L100.0100, L501.9940 ####[facility] [address] [place], [address] Platelet mean volume (Bld) [Entitic vol] 9.1 fL Normal 6.2-12.0 [facility] Comment on above: Performed By: #### L 500.4050, L100.0100, L501.9940 ####[facility] [address] [place], [address] Platelets (Bld) [#/Vol] 157 10*3/uL Normal 150-450 [facility] Comment on above: Performed By: #### L 500.4050, L100.0100, L501.9940 ####[facility] [address] [place], [address] RBC (Bld) [#/Vol] 4.15 10*6/uL Low 4.6-6.2 [facility] Comment on above: Performed By: #### L 500.4050, L100.0100, L501.9940 ####[facility] [address] [place], [address] RDW SD 50.2 fl High 35.1-43.9 [facility] Comment on above: Performed By: #### L 500.4050, L100.0100, L501.9940 ####[facility] [address] [place], [address] WBC (Bld) [#/Vol] 5.0 10*3/uL Normal 4.4-11.0 [facility] Comment on above: Performed By: #### L 500.4050, L100.0100, L501.9940 ####[facility] [address] [place], [address] Comprehensive Metabolic [facility] ilon 04-10-2024 Albumin [Mass/Vol] 3.5 g/dL Normal 3.2-5.0 [facility] Comment on above: Performed By: #### L 500.4050, L100.0100, L501.9940 ####[facility] [address] [place], [address] Albumin/Globulin [Mass ratio] 1.0 {ratio} Normal 0.9-2.4 [facility] Comment on above: Performed By: #### L 500.4050, L100.0100, L501.9940 ####[facility] [address] [place], [address] ALK P 47 U/L Normal 45-117 [facility] Comment on above: Performed By: #### L 500.4050, L100.0100, L501.9940 ####[facility] [address] [place], [address] ALT [Catalytic activity/Vol] 14 U/L Low 16-61 [facility] Comment on above: Performed By: #### L 500.4050, L100.0100, L501.9940 ####[facility] [address] [place], [address] AST [Catalytic activity/Vol] 12 U/L Low 15-37 [facility] Comment on above: Performed By: #### L 500.4050, L100.0100, L501.9940 ####[facility] [address] [place], [address] Bilirubin [Mass/Vol] 0.80 mg/dL Normal 0.20-1.00 [facility] Comment on above: Result Comment: For patients on eltrombopag therapy, use of Dimension [place] TBIL is not recommended. Performed By: #### L 500.4050, L100.0100, L501.9940 ####[facility] [address] [place], [address] BUN/CRE 18.9 RATIO Normal 10-20 [facility] Comment on above: Performed By: #### L 500.4050, L100.0100, L501.9940 ####[facility] [address] [place], [address] CA,Total 8.9 mg/dL Normal 8.5-10.1 [facility] Comment on above: Performed By: #### L 500.4050, L100.0100, L501.9940 ####[facility] [address] [place], [address] Chloride [Moles/Vol] 111 mmol/L High 98-107 [facility] Comment on above: Performed By: #### L 500.4050, L100.0100, L501.9940 ####[facility] [address] [place], [address] CO2 [Moles/Vol] 27.0 mmol/L Normal 21.0-32.0 [facility] Comment on above: Performed By: #### L 500.4050, L100.0100, L501.9940 ####[facility] [address] [place], [address] Creatinine [Mass/Vol] 1.06 mg/dL Normal 0.70-1.30 [facility] Comment on above: Result Comment: The validity of the calculated GFR GFRAA in patients over70 years has not been determined. Clinical correlation isessential. Performed By: #### L 500.4050, L100.0100, L501.9940 ####[facility] [address] [place], [address] ECRCL 51.65 ml/min Normal [facility] Comment on above: Performed By: #### L 500.4050, L100.0100, L501.9940 ####[facility] [address] [place], [address] EST GFR - AA 85 mL/min Normal >60 [facility] Comment on above: Result Comment: Afri can Finnish GFR Calc Performed By: #### L 500.4050, L100.0100, L501.9940 ####[facility] [address] [place], [address] GAP 4 Low 5-15 [facility] Comment on above: Performed By: #### L 500.4050, L100.0100, L501.9940 ####[facility] [address] [place], [address] GFR/1.73 sq M.predicted among non-blacks MDRD (S/P/Bld) [Vol rate/Area] 70 mL/min/{1.73_m2} Normal >60 [facility] Comment on above: Result Comment: Non- GFR Calc Performed By: #### L 500.4050, L100.0100, L501.9940 ####[facility] [address] [place], [address] Globulin (S) [Mass/Vol] 3.4 g/dL Normal 2.2-4.2 [facility] Comment on above: Performed By: #### L 500.4050, L100.0100, L501.9940 ####[facility] [address] [place], [address] Glucose [Mass/Vol] 137 mg/dL High 74-106 [facility] Comment on above: Result Comment: Fast ing Glucose result greater than or equal to 126 mg/dLsuggests DIABETES MELLITUS per A.D.A. criteria. Performed By: #### L 500.4050, L100.0100, L501.9940 ####[facility] [address] [place], [address] Potassium [Moles/Vol] 4.1 mmol/L Normal 3.5-5.1 [facility] Comment on above: Performed By: #### L 500.4050, L100.0100, L501.9940 ####[facility] [address] [place], [address] Sodium [Moles/Vol] 142 mmol/L Normal 136-145 [facility] Comment on above: Performed By: #### L 500.4050, L100.0100, L501.9940 ####[facility] [address] [place], [address] T PROT 6.9 g/dL Normal 6.4-8.2 [facility] Comment on above: Performed By: #### L 500.4050, L100.0100, L501.9940 ####[facility] [address] [place], [address] Urea nitrogen [Mass/Vol] 20 mg/dL High 7-18 [facility] Comment on above: Performed By: #### L 500.4050, L100.0100, L501.9940 ####[facility] [address] [place], [address] Oncology Visit Reporton 03-24 Oncology Visit Report Normal [facility] PSA,Total- Diagnosticon 03-24 PSA, DIAGNOSTIC 0.03 ng/mL Normal 0.0-4.0 [facility] Comment on above: Result Comment: This test was performed using the TPSA assay method for [employer] chemistry system. Values obtained with differentassay methods cannot be used interchangably.When changing PSA assays in the course of monitoring apatient, additional sequential testing should be carriedout to confirm baseline values. Performed By: #### L 500.4050, L100.0100, L501.9940 ####[facility] [address] [place], [address] Echo Limited w/Contraston Echo Limited w/Contrast Normal [facility] Femur Min 2 Viewson 03-03-20 Femur Min 2 Views Normal [facility] Office Visit Reporton 2023 Office Visit Report Normal [facility] Pelvis 1 or 2 Viewson 2023 Pelvis 1 or 2 Views Normal [facility] Cardiology Visit Reporton Cardiology Visit Report Normal [facility] CBC W/Diff, Automatedon Absolute Lymph 2.50 X10 3/uL Normal 0.83-4.51 [facility] Comment on above: Performed By: #### L 100.0100 ####[facility] [address] [place], [address] Absolute Neut 2.0 X10 3/uL Normal 2.0-7.7 [facility] Comment on above: Performed By: #### L 100.0100 ####[facility] [address] [place], [address] Basophils/100 WBC (Bld) 0.2 % Normal 0-1 [facility] Comment on above: Performed By: #### L 100.0100 ####[facility] [address] [place], [address] Eosinophils/100 WBC (Bld) 1.0 % Normal 0-5 [facility] Comment on above: Performed By: #### L 100.0100 ####[facility] [address] [place], [address] Erythrocyte distribution width (RBC) [Ratio] 13.6 % Normal 11.6-14.6 [facility] Comment on above: Performed By: #### L 100.0100 ####[facility] [address] [place], [address] Hematocrit (Bld) [Volume fraction] 42.7 % Normal 40-54 [facility] Comment on above: Performed By: #### L 100.0100 ####[facility] [address] [place], [address] Hemoglobin (Bld) [Mass/Vol] 14.4 g/dL Normal 13.0-16.5 [facility] Comment on above: Performed By: #### L 100.0100 ####[facility] [address] [place], [address] IG% 0.400 Normal 0.0-0.9 [facility] Comment on above: Result Comment: IG% - Immature Granulocytes (promyelocytes, myelocytes andmetamyelocytes) > 1% indicates that a LEFT SHIFT is Present. Performed By: #### L 100.0100 ####[facility] [address] [place], [address] Lymphocytes/100 WBC (Bld) 49.9 % High 19-41 [facility] Comment on above: Performed By: #### L 100.0100 ####[facility] [address] [place], [address] MCH (RBC) [Entitic mass] 34.5 pg High 27.0-32.0 [facility] Comment on above: Performed By: #### L 100.0100 ####[facility] [address] [place], [address] MCHC (RBC) [Mass/Vol] 33.7 g/dL Normal 32-36 [facility] Comment on above: Performed By: #### L 100.0100 ####[facility] [address] [place], [address] MCV (RBC) [Entitic vol] 102.4 fL High 80-94 [facility] Comment on above: Performed By: #### L 100.0100 ####[facility] [address] [place], [address] Monocytes/100 WBC (Bld) 7.8 % Normal 0-10 [facility] Comment on above: Performed By: #### L 100.0100 ####[facility] [address] [place], [address] Neutrophils/100 WBC (Bld) 40.7 % Low 47-70 [facility] Comment on above: Performed By: #### L 100.0100 ####[facility] [address] [place], [address] Nucleated RBC (Bld) [#/Vol] 0 10*3/uL Normal 0-5 [facility] Comment on above: Performed By: #### L 100.0100 ####[facility] [address] [place], [address] Platelet mean volume (Bld) [Entitic vol] 9.5 fL Normal 6.2-12.0 [facility] Comment on above: Performed By: #### L 100.0100 ####[facility] [address] [place], [address] Platelets (Bld) [#/Vol] 157 10*3/uL Normal 150-450 [facility] Comment on above: Performed By: #### L 100.0100 ####[facility] [address] [place], [address] RBC (Bld) [#/Vol] 4.17 10*6/uL Low 4.6-6.2 [facility] Comment on above: Performed By: #### L 100.0100 ####[facility] [address] [place], [address] RDW SD 51.1 fl High 35.1-43.9 [facility] Comment on above: Performed By: #### L 100.0100 ####[facility] [address] [place], [address] WBC (Bld) [#/Vol] 5.0 10*3/uL Normal 4.4-11.0 [facility] Comment on above: Performed By: #### L 100.0100 ####[facility] [address] [place], [address] Comprehensive Metabolic Prof ilon 02-28-2024 Albumin [Mass/Vol] 3.4 g/dL Normal 3.2-5.0 [facility] Comment on above: Performed By: #### L 500.4050, L501.9940 ####[facility] [address] [place], [address] Albumin/Globulin [Mass ratio] 0.9 {ratio} Normal 0.9-2.4 [facility] Comment on above: Performed By: #### L 500.4050, L501.9940 ####[facility] [address] [place], [address] ALK P 49 U/L Normal 45-117 [facility] Comment on above: Performed By: #### L 500.4050, L501.9940 ####[facility] [address] [place], [address] ALT [Catalytic activity/Vol] 11 U/L Low 16-61 [facility] Comment on above: Performed By: #### L 500.4050, L501.9940 ####[facility] [address] [place], [address] AST [Catalytic activity/Vol] 16 U/L Normal 15-37 [facility] Comment on above: Result Comment: Slig ht Hemolysis, Result may be falsely increased. Performed By: #### L 500.4050, L501.9940 ####[facility] [address] [place], [address] Bilirubin [Mass/Vol] 0.80 mg/dL Normal 0.20-1.00 [facility] Comment on above: Result Comment: For patients on eltrombopag therapy, use of Dimension [place] TBIL is not recommended. Performed By: #### L 500.4050, L501.9940 ####[facility] [address] [place], [address] BUN/CRE 24.4 RATIO High 10-20 [facility] Comment on above: Performed By: #### L 500.4050, L501.9940 ####[facility] [address] [place], [address] CA,Total 9.0 mg/dL Normal 8.5-10.1 [facility] Comment on above: Performed By: #### L 500.4050, L501.9940 ####[facility] [address] [place], [address] Chloride [Moles/Vol] 110 mmol/L High 98-107 [facility] Comment on above: Performed By: #### L 500.4050, L501.9940 ####[facility] [address] [place], [address] CO2 [Moles/Vol] 30.0 mmol/L Normal 21.0-32.0 [facility] Comment on above: Performed By: #### L 500.4050, L501.9940 ####[facility] [address] [place], [address] Creatinine [Mass/Vol] 1.19 mg/dL Normal 0.70-1.30 [facility] Comment on above: Result Comment: The validity of the calculated GFR GFRAA in patients over70 years has not been determined. Clinical correlation isessential. Performed By: #### L 500.4050, L501.9940 ####[facility] [address] [place], [address] ECRCL 46.01 ml/min Normal [facility] Comment on above: Performed By: #### L 500.4050, L501.9940 ####[facility] [address] [place], [address] EST GFR - AA 74 mL/min Normal >60 [facility] Comment on above: Result Comment: Afri can Finnish GFR Calc Performed By: #### L 500.4050, L501.9940 ####[facility] [address] [place], [address] GAP 4 Low 5-15 [facility] Comment on above: Performed By: #### L 500.4050, L501.9940 ####[facility] [address] [place], [address] GFR/1.73 sq M.predicted among non-blacks MDRD (S/P/Bld) [Vol rate/Area] 62 mL/min/{1.73_m2} Normal >60 [facility] Comment on above: Result Comment: Non- GFR Calc Performed By: #### L 500.4050, L501.9940 ####[facility] [address] [place], [address] Globulin (S) [Mass/Vol] 3.7 g/dL Normal 2.2-4.2 [facility] Comment on above: Performed By: #### L 500.4050, L501.9940 ####[facility] [address] [place], [address] Glucose [Mass/Vol] 113 mg/dL High 74-106 [facility] Comment on above: Result Comment: Fast ing Glucose result from 100 to 125 mg/dLsuggests IMPAIRED HOMEOSTASIS per A.D.A. criteria. Performed By: #### L 500.4050, L501.9940 ####[facility] [address] [place], [address] Potassium [Moles/Vol] 4.2 mmol/L Normal 3.5-5.1 [facility] Comment on above: Result Comment: Slig ht Hemolysis, Result may be falsely increased. Performed By: #### L 500.4050, L501.9940 ####[facility] [address] [place], [address] Sodium [Moles/Vol] 144 mmol/L Normal 136-145 [facility] Comment on above: Performed By: #### L 500.4050, L501.9940 ####[facility] [address] [place], [address] T PROT 7.1 g/dL Normal 6.4-8.2 [facility] Comment on above: Performed By: #### L 500.4050, L501.9940 ####[facility] [address] [place], [address] Urea nitrogen [Mass/Vol] 29 mg/dL High 7-18 [facility] Comment on above: Performed By: #### L 500.4050, L501.9940 ####[facility] [address] [place], [address] Oncology Visit Reporton 10-0 Oncology Visit Report Normal [facility] PSA,Total- Diagnosticon 10-0 PSA, DIAGNOSTIC 0.04 ng/mL Normal 0.0-4.0 [facility] Comment on above: Result Comment: This test was performed using the TPSA assay method for [employer] chemistry system. Values obtained with differentassay methods cannot be used interchangably.When changing PSA assays in the course of monitoring apatient, additional sequential testing should be carriedout to confirm baseline values. Performed By: #### L 500.4050, L501.9940 ####[facility] [address] [place], [address] Internal Medicine Office Vis iton 01-19-2024 Internal Medicine Office Visit Normal [facility] CBC W/Diff, Automatedon 08-2 Absolute Lymph 2.30 X10 3/uL Normal 0.83-4.51 [facility] Comment on above: Performed By: #### L 501.9940, L500.4050, L100.0100 ####[facility] [address] [place], [address] Absolute Neut 2.0 X10 3/uL Normal 2.0-7.7 [facility] Comment on above: Performed By: #### L 501.9940, L500.4050, L100.0100 ####[facility] [address] [place], [address] Basophils/100 WBC (Bld) 0.4 % Normal 0-1 [facility] Comment on above: Performed By: #### L 501.9940, L500.4050, L100.0100 ####[facility] [address] [place], [address] Eosinophils/100 WBC (Bld) 1.5 % Normal 0-5 [facility] Comment on above: Performed By: #### L 501.9940, L500.4050, L100.0100 ####[facility] [address] [place], [address] Erythrocyte distribution width (RBC) [Ratio] 13.9 % Normal 11.6-14.6 [facility] Comment on above: Performed By: #### L 501.9940, L500.4050, L100.0100 ####[facility] [address] [place], [address] Hematocrit (Bld) [Volume fraction] 40.5 % Normal 40-54 [facility] Comment on above: Performed By: #### L 501.9940, L500.4050, L100.0100 ####[facility] [address] [place], [address] Hemoglobin (Bld) [Mass/Vol] 13.5 g/dL Normal 13.0-16.5 [facility] Comment on above: Performed By: #### L 501.9940, L500.4050, L100.0100 ####[facility] [address] [place], [address] IG% 0.400 Normal 0.0-0.9 [facility] Comment on above: Result Comment: IG% - Immature Granulocytes (promyelocytes, myelocytes andmetamyelocytes) > 1% indicates that a LEFT SHIFT is Present. Performed By: #### L 501.9940, L500.4050, L100.0100 ####[facility] [address] [place], [address] Lymphocytes/100 WBC (Bld) 47.8 % High 19-41 [facility] Comment on above: Performed By: #### L 501.9940, L500.4050, L100.0100 ####[facility] [address] [place], [address] MCH (RBC) [Entitic mass] 33.6 pg High 27.0-32.0 [facility] Comment on above: Performed By: #### L 501.9940, L500.4050, L100.0100 ####[facility] [address] [place], [address] MCHC (RBC) [Mass/Vol] 33.3 g/dL Normal 32-36 [facility] Comment on above: Performed By: #### L 501.9940, L500.4050, L100.0100 ####[facility] [address] [place], [address] MCV (RBC) [Entitic vol] 100.7 fL High 80-94 [facility] Comment on above: Performed By: #### L 501.9940, L500.4050, L100.0100 ####[facility] [address] [place], [address] Monocytes/100 WBC (Bld) 8.9 % Normal 0-10 [facility] Comment on above: Performed By: #### L 501.9940, L500.4050, L100.0100 ####[facility] [address] [place], [address] Neutrophils/100 WBC (Bld) 41.0 % Low 47-70 [facility] Comment on above: Performed By: #### L 501.9940, L500.4050, L100.0100 ####[facility] [address] [place], [address] Nucleated RBC (Bld) [#/Vol] 0 10*3/uL Normal 0-5 [facility] Comment on above: Performed By: #### L 501.9940, L500.4050, L100.0100 ####[facility] [address] [place], [address] Platelet mean volume (Bld) [Entitic vol] 9.1 fL Normal 6.2-12.0 [facility] Comment on above: Performed By: #### L 501.9940, L500.4050, L100.0100 ####[facility] [address] [place], [address] Platelets (Bld) [#/Vol] 155 10*3/uL Normal 150-450 [facility] Comment on above: Performed By: #### L 501.9940, L500.4050, L100.0100 ####[facility] [address] [place], [address] RBC (Bld) [#/Vol] 4.02 10*6/uL Low 4.6-6.2 [facility] Comment on above: Performed By: #### L 501.9940, L500.4050, L100.0100 ####[facility] [address] [place], [address] RDW SD 51.6 fl High 35.1-43.9 [facility] Comment on above: Performed By: #### L 501.9940, L500.4050, L100.0100 ####[facility] [address] [place], [address] WBC (Bld) [#/Vol] 4.8 10*3/uL Normal 4.4-11.0 [facility] Comment on above: Performed By: #### L 501.9940, L500.4050, L100.0100 ####[facility] [address] [place], [address] Comprehensive Metabolic Prof [facility] 01-17-2024 Albumin [Mass/Vol] 3.1 g/dL Low 3.2-5.0 [facility] Comment on above: Performed By: #### L 501.9940, L500.4050, L100.0100 ####[facility] [address] [place], [address] Albumin/Globulin [Mass ratio] 0.9 {ratio} Normal 0.9-2.4 [facility] Comment on above: Performed By: #### L 501.9940, L500.4050, L100.0100 ####[facility] [address] [place], [address] ALK P 54 U/L Normal 45-117 [facility] Comment on above: Performed By: #### L 501.9940, L500.4050, L100.0100 ####[facility] [address] [place], [address] ALT [Catalytic activity/Vol] 11 U/L Low 16-61 [facility] Comment on above: Performed By: #### L 501.9940, L500.4050, L100.0100 ####[facility] [address] [place], [address] AST [Catalytic activity/Vol] 13 U/L Low 15-37 [facility] Comment on above: Performed By: #### L 501.9940, L500.4050, L100.0100 ####[facility] [address] [place], [address] Bilirubin [Mass/Vol] 0.60 mg/dL Normal 0.20-1.00 [facility] Comment on above: Result Comment: For patients on eltrombopag therapy, use of Dimension [place] TBIL is not recommended. Performed By: #### L 501.9940, L500.4050, L100.0100 ####[facility] [address] [place], [address] BUN/CRE 25.5 RATIO High 10-20 [facility] Comment on above: Performed By: #### L 501.9940, L500.4050, L100.0100 ####[facility] [address] [place], [address] CA,Total 8.5 mg/dL Normal 8.5-10.1 [facility] Comment on above: Performed By: #### L 501.9940, L500.4050, L100.0100 ####[facility] [address] [place], [address] Chloride [Moles/Vol] 111 mmol/L High 98-107 [facility] Comment on above: Performed By: #### L 501.9940, L500.4050, L100.0100 ####[facility] [address] [place], [address] CO2 [Moles/Vol] 27.0 mmol/L Normal 21.0-32.0 [facility] Comment on above: Performed By: #### L 501.9940, L500.4050, L100.0100 ####[facility] [address] [place], [address] Creatinine [Mass/Vol] 1.10 mg/dL Normal 0.70-1.30 [facility] Comment on above: Result Comment: The validity of the calculated GFR GFRAA in patients over70 years has not been determined. Clinical correlation isessential. Performed By: #### L 501.9940, L500.4050, L100.0100 ####[facility] [address] [place], [address] ECRCL 49.77 ml/min Normal [facility] Comment on above: Performed By: #### L 501.9940, L500.4050, L100.0100 ####[facility] [address] [place], [address] EST GFR - AA 82 mL/min Normal >60 [facility] Comment on above: Result Comment: Afri can Finnish GFR Calc Performed By: #### L 501.9940, L500.4050, L100.0100 ####[facility] [address] [place], [address] GAP 5 Normal 5-15 [facility] Comment on above: Performed By: #### L 501.9940, L500.4050, L100.0100 ####[facility] [address] [place], [address] GFR/1.73 sq M.predicted among non-blacks MDRD (S/P/Bld) [Vol rate/Area] 67 mL/min/{1.73_m2} Normal >60 [facility] Comment on above: Result Comment: Non- GFR Calc Performed By: #### L 501.9940, L500.4050, L100.0100 ####[facility] [address] [place], [address] Globulin (S) [Mass/Vol] 3.5 g/dL Normal 2.2-4.2 [facility] Comment on above: Performed By: #### L 501.9940, L500.4050, L100.0100 ####[facility] [address] [place], [address] Glucose [Mass/Vol] 122 mg/dL High 74-106 [facility] Comment on above: Result Comment: Fast ing Glucose result from 100 to 125 mg/dLsuggests IMPAIRED HOMEOSTASIS per A.D.A. criteria. Performed By: #### L 501.9940, L500.4050, L100.0100 ####[facility] [address] [place], [address] Potassium [Moles/Vol] 4.2 mmol/L Normal 3.5-5.1 [facility] Comment on above: Performed By: #### L 501.9940, L500.4050, L100.0100 ####[facility] [address] [place], [address] Sodium [Moles/Vol] 143 mmol/L Normal 136-145 [facility] Comment on above: Performed By: #### L 501.9940, L500.4050, L100.0100 ####[facility] [address] [place], [address] T PROT 6.6 g/dL Normal 6.4-8.2 [facility] Comment on above: Performed By: #### L 501.9940, L500.4050, L100.0100 ####[facility] [address] [place], [address] Urea nitrogen [Mass/Vol] 28 mg/dL High 7-18 [facility] Comment on above: Performed By: #### L 501.9940, L500.4050, L100.0100 ####[facility] [address] [place], [address] Oncology Visit Reporton 08-2 6-2024 Oncology Visit Report Normal [facility] PSA,Total- Diagnosticon 12-23 PSA, DIAGNOSTIC 0.05 ng/mL Normal 0.0-4.0 [facility] Comment on above: Result Comment: This test was performed using the TPSA assay method for theDimension chemistry system. Values obtained with differentassay methods cannot be used interchangably.When changing PSA assays in the course of monitoring apatient, additional sequential testing should be carriedout to confirm baseline values. Performed By: #### L 501.9940, L500.4050, L100.0100 ####[facility] [address] [place], [address] Absolute lymphocyte countOrd ered By: Rachael Posada on 06-21-2023 Lymphocytes Auto (Unsp spec) [#/Vol] 3.26 10*3/uL 0.83-4.51 [facility] Automated lymphocyte count a s percentage of total leukocytesOrdered By: Rachael Posada on 06-21-2023 Lymphocytes/100 WBC Auto (Unsp spec) 47.8 % 19-41 [facility] Basophil percentageOrdered B y: Rachael Posada on 06-21-2023 Basophil percentage 7.03 ng/mL 0.0-4.0 [facility] Comment on above: This test was perfor med using the TPSA assay method for theDimension chemistry system. Values obtained with differentassay methods cannot be used interchangably.When changing PSA assays in the course of monitoring apatient, additional sequential testing should be carriedout to confirm baseline values. Basophils/100 WBC (Bld) 0.3 % 0-1 [facility] Bilirubin [Mass/Vol] 1.10 mg/dL 0.20-1.00 [facility] Comment on above: For patients on eltr ombopag therapy, use of Dimension [place] TBIL is not recommended. Chloride [Moles/Vol] 108 mmol/L 98-107 [facility] Eosinophils/100 WBC (Bld) 0.6 % 0-5 [facility] Glucose [Mass/Vol] 110 mg/dL 74-106 [facility] Comment on above: Fasting Glucose resu lt from 100 to 125 mg/dL suggests IMPAIRED HOMEOSTASIS per A.D.A. criteria. Hemoglobin (Bld) [Mass/Vol] 14.2 g/dL 13.0-16.5 [facility] Monocytes/100 WBC (Bld) 8.7 % 0-10 [facility] Neutrophils (Bld) [#/Vol] 2.9 10*3/uL 2.0-7.7 [facility] Neutrophils/100 WBC (Bld) 42.3 % 47-70 [facility] Potassium [Moles/Vol] 3.4 mmol/L 3.5-5.1 [facility] Protein [Mass/Vol] 7.5 g/dL 6.4-8.2 [facility] Sodium [Moles/Vol] 140 mmol/L 136-145 [facility] WBC (Bld) [#/Vol] 6.8 10*3/uL 4.4-11.0 [facility] Determination of erythrocyte mean corpuscular volume (MCV)Ordered By: Rachael Posada on 06-21-2023 MCV (RBC) [Entitic vol] 100.0 fL 80-94 [facility] Erythrocyte distribution wid th ratioOrdered By: Rachael Posada on 06-21-2023 Erythrocyte distribution width (RBC) [Ratio] 13.4 % 11.6-14.6 [facility] Erythrocyte distribution wid th standard deviationOrdered By: Rachael Posada on 06-21-2023 Erythrocyte distribution width (RBC) [Entitic vol] 49.7 fL 35.1-43.9 [facility] Hematocrit Auto (Bld) [Volum e fraction]Ordered By: Rachael Posada on 06-21-2023 Hematocrit (Bld) [Volume fraction] 43.6 % 40-54 [facility] Immature granulocytes/100 WB C Auto (Bld)Ordered By: Rachael Posada on 06-21-2023 Immature granulocytes/100 WBC (Bld) 0.300 % 0.0-0.9 [facility] Comment on above: IG% - Immature Granu locytes (promyelocytes, myelocytes and metamyelocytes) > 1% indicates that a LEFT SHIFT is Present. Laboratory - Chemistry and C hemistry - challengeOrdered By: Rachael Posada on 06-21-2023 Albumin/Globulin [Mass ratio] 0.8 {ratio} 0.9-2.4 [facility] ALP [Catalytic activity/Vol] 76 U/L 45-117 [facility] ALT [Catalytic activity/Vol] 13 U/L 16-61 [facility] CO2 [Moles/Vol] 30.0 mmol/L 21.0-32.0 [facility] Globulin (S) [Mass/Vol] 4.1 g/dL 2.2-4.2 [facility] Urea nitrogen/Creatinine [Mass ratio] 21.9 mg/mg 10-20 [facility] Laboratory - Hematology and Cell countsOrdered By: Rachael Posada on 06-21-2023 MCH (RBC) [Entitic mass] 32.6 pg 27.0-32.0 [facility] MCHC (RBC) [Mass/Vol] 32.6 g/dL 32-36 [facility] Nucleated RBC/100 WBC (Bld) [Ratio] 0 % 0-5 [facility] Platelets (Bld) [#/Vol] 181 10*3/uL 150-450 [facility] No Panel InformationOrdered By: Rachael Posada on 06-21-2023 Estimated Creatinine Clearance Calc 60.16 ml/min [facility] Estimated GFR (MDRD) Amer 101 mL/min >60 [facility] Comment on above: GFR Calc Estimated GFR (MDRD) Non-Af Amer 84 mL/min >60 [facility] Comment on above: Non- GFR Calc Platelet mean volume Santhosh-Ec ker (Bld) [Entitic vol]Ordered By: Rachael Posada on 06-21-2023 Platelet mean volume (Bld) [Entitic vol] 9.5 fL 6.2-12.0 [facility] RBC Auto (Bld) [#/Vol]Ordere d By: Rachael Posada on 06-21-2023 RBC (Bld) [#/Vol] 4.36 10*6/uL 4.6-6.2 [facility] Serum or plasma calcium patricia urement (mass/volume)Ordered By: Rachael Posada on 06-21-2023 Calcium [Mass/Vol] 9.0 mg/dL 8.5-10.1 [facility] Serum or plasma creatinine m easurement (mass/volume)Ordered By: Rachael Posada on 06-21-2023 Creatinine [Mass/Vol] 0.91 mg/dL 0.70-1.30 [facility] Comment on above: The validity of the calculated GFR & GFRAA in patients over 70 years has not been determined. Clinical correlation is essential. Serum or plasma urea nitroge n measurement (mass/volume)Ordered By: Rachael Posada on 06-21-2023 Urea nitrogen [Mass/Vol] 20 mg/dL 7-18 [facility] Thin prep Papanicolaou smear with manual screeningOrdered By: Rachael Posada on 06-21-2023 Thin prep Papanicolaou smear with manual screening 3.4 g/dL 3.2-5.0 [facility] Thin prep Papanicolaou smear with manual screening 14 U/L 15-37 [facility] Thin prep Papanicolaou smear with manual screening 2 5-15 [facility] Absolute lymphocyte countOrd ered By: Carolina Mcgee on 05-10-2023 Lymphocytes Auto (Unsp spec) [#/Vol] 2.45 10*3/uL 0.83-4.51 [facility] Basophil percentageOrdered B y: Carolina Mcgee on 05-10-2023 Basophils/100 WBC (Bld) 0.5 % 0-1 [facility] Bilirubin [Mass/Vol] 0.60 mg/dL 0.20-1.00 [facility] Comment on above: For patients on eltr ombopag therapy, use of Dimension [place] TBIL is not recommended. Chloride [Moles/Vol] 112 mmol/L 98-107 [facility] Eosinophils/100 WBC (Bld) 0.9 % 0-5 [facility] Glucose [Mass/Vol] 124 mg/dL 74-106 [facility] Comment on above: Fasting Glucose resu lt from 100 to 125 mg/dL suggests IMPAIRED HOMEOSTASIS per A.D.A. criteria. Neutrophils (Bld) [#/Vol] 2.8 10*3/uL 2.0-7.7 [facility] Neutrophils/100 WBC (Bld) 48.5 % 47-70 [facility] Potassium [Moles/Vol] 3.6 mmol/L 3.5-5.1 [facility] Protein [Mass/Vol] 7.1 g/dL 6.4-8.2 [facility] Sodium [Moles/Vol] 145 mmol/L 136-145 [facility] WBC (Bld) [#/Vol] 5.8 10*3/uL 4.4-11.0 [facility] Blood erythrocytes count (nu mber/volume)Ordered By: Carolina Mcgee on 05-10-2023 RBC (Bld) [#/Vol] 4.14 10*6/uL 4.6-6.2 [facility] Blood hemoglobin measurement (mass/volume)Ordered By: Carolina Mcgee on 05-10-2023 Hemoglobin (Bld) [Mass/Vol] 13.5 g/dL 13.0-16.5 [facility] Blood lymphocytes/100 leukoc ytesOrdered By: Carolina Mcgee on 05-10-2023 Lymphocytes/100 WBC (Bld) 42.5 % 19-41 [facility] Blood monocytes/100 leukocyt esOrdered By: Carolina Mcgee on 05-10-2023 Monocytes/100 WBC (Bld) 7.3 % 0-10 [facility] Blood platelet mean volumeOr dered By: Carolina Mcgee on 05-10-2023 Platelet mean volume (Bld) [Entitic vol] 9.1 fL 6.2-12.0 [facility] Determination of erythrocyte mean corpuscular volume (MCV)Ordered By: Carolina Mcgee on 05-10-2023 MCV (RBC) [Entitic vol] 100.2 fL 80-94 [facility] Hematocrit Auto (Bld) [Volum e fraction]Ordered By: Carolina Mcgee on 05-10-2023 Hematocrit (Bld) [Volume fraction] 41.5 % 40-54 [facility] Laboratory - Chemistry and C hemistry - challengeOrdered By: Carolina Mcgee on 05-10-2023 ALP [Catalytic activity/Vol] 90 U/L 45-117 [facility] ALT [Catalytic activity/Vol] 13 U/L 16-61 [facility] CO2 [Moles/Vol] 25.0 mmol/L 21.0-32.0 [facility] Globulin (S) [Mass/Vol] 3.8 g/dL 2.2-4.2 [facility] Urea nitrogen/Creatinine [Mass ratio] 19.8 mg/mg 10-20 [facility] Laboratory - Hematology and Cell countsOrdered By: Carolina Mcgee on 05-10-2023 Erythrocyte distribution width (RBC) [Entitic vol] 49.9 fL 35.1-43.9 [facility] Erythrocyte distribution width (RBC) [Ratio] 13.3 % 11.6-14.6 [facility] Immature granulocytes/100 WBC (Bld) 0.300 % 0.0-0.9 [facility] Comment on above: IG% - Immature Granu locytes (promyelocytes, myelocytes and metamyelocytes) > 1% indicates that a LEFT SHIFT is Present. MCH (RBC) [Entitic mass] 32.6 pg 27.0-32.0 [facility] Nucleated RBC/100 WBC (Bld) [Ratio] 0 % 0-5 [facility] MCHC Auto (RBC) [Mass/Vol]Or dered By: Carolina Mcgee on 05-10-2023 MCHC (RBC) [Mass/Vol] 32.5 g/dL 32-36 [facility] No Panel InformationOrdered By: Carolina Mcgee on 05-10-2023 Estimated Creatinine Clearance Calc 52.61 ml/min [facility] Estimated GFR (MDRD) Amer 85 mL/min >60 [facility] Comment on above: GFR Calc Estimated GFR (MDRD) Non-Af Amer 70 mL/min >60 [facility] Comment on above: Non- GFR Calc Prostate Specific Antigen Total 32.00 ng/mL 0.0-4.0 [facility] Comment on above: This test was perfor med using the [facility] method [facility]. Values obtained with differentassay methods cannot be used interchangably.When changing PSA assays in the course of monitoring apatient, additional sequential testing should be carriedout to confirm baseline values. Platelets bldOrdered By: Graham Mcgee on 05-10-2023 Platelets (Bld) [#/Vol] 204 10*3/uL 150-450 [facility] Serum or plasma albumin patricia urement (mass/volume)Ordered By: Carolina Mcgee on 05-10-2023 Albumin [Mass/Vol] 3.3 g/dL 3.2-5.0 [facility] Serum or plasma albumin/glob ulin mass ratioOrdered By: [facility] Albumin/Globulin [Mass ratio] 0.9 {ratio} 0.9-2.4 [facility] Serum or plasma calcium patricia urement (mass/volume)Ordered By: [facility] on 05-10-2023 Calcium [Mass/Vol] 8.0 mg/dL 8.5-10.1 [facility] Serum or plasma creatinine m easurement (mass/volume)Ordered By: [facility] on 05-10-2023 Creatinine [Mass/Vol] 1.06 mg/dL 0.70-1.30 [facility] Comment on above: The validity of the calculated GFR & GFRAA in patients over 70 years has not been determined. Clinical correlation is essential. Serum or plasma urea nitroge n measurement (mass/volume)Ordered By: [facility] on 05-10-2023 Urea nitrogen [Mass/Vol] 21 mg/dL 7-18 [facility] Thin prep Papanicolaou smear with manual screeningOrdered By: [facility] Arely on 05-10-2023 Thin prep Papanicolaou smear with manual screening 13 U/L 15-37 [facility] Thin prep Papanicolaou smear with manual screening 8 5-15 [facility] XR HUMERUS LEFTon 04-12-2023 XR HUMERUS LEFT EXAM: XR HUMERUS LEF T 4 VIEWS, 04/12/2023 14:12 PM COMPARISON: March 12, 2023 CLINICAL INDICATIONS: left humeral shaft fracture RELEVANT CLINICAL HISTORY: 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 Soft Tissue: There is no obvious soft tissue swelling. Bone: Redemonstrated lytic lesion with indistinct margins in the mid humeral diaphysis with mild expansion and cortical invasion. Associated transverse pathologic fracture with mild apex medial angulation across the dominant fracture fragments. Increased volume and maturation of callus formation at the fracture margin. Joint: Limited evaluation of the elbow joint shows anatomic alignment. IMPRESSION: 1. Stable alignment and progressive healing of a mildly angulated pathologic fracture at the mid left humeral diaphysis. Underlying aggressive lytic lesion with cortical invasion. 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 Soft Tissue: There is no obvious soft tissue swelling. Bone: Redemonstrated lytic lesion with indistinct margins in the mid humeral diaphysis with mild expansion and cortical invasion. Associated transverse pathologic fracture with mild apex medial angulation across the dominant fracture fragments. Increased volume and maturation of callus formation at the fracture margin. Joint: Limited evaluation of the elbow joint shows anatomic alignment. 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 Soft Tissue: There is no obvious soft tissue swelling. Bone: Redemonstrated lytic lesion with indistinct margins in the mid humeral diaphysis with mild expansion and cortical invasion. Associated transverse pathologic fracture with mild apex medial angulation across the dominant fracture fragments. Increased volume and maturation of callus formation at the fracture margin. Joint: Limited evaluation of the elbow joint shows anatomic alignment. IMPRESSION IMPRESSION: 1. Stable alignment and progressive healing of a mildly angulated pathologic fracture at the mid left humeral diaphysis. Underlying aggressive lytic lesion with cortical invasion. [facility] Radiology Study observation (narrative) [facility] XR Humerus - left ViewsOrder ed By: Paulo Trujillo on 04-12-2023 [facility] Work Phone: Absolute lymphocyte countOrd ered By: Carolina Mcgee on 03-29-2023 Lymphocytes Auto (Unsp spec) [#/Vol] 3.04 10*3/uL 0.83-4.51 [facility] Basophil percentageOrdered B y: Carolina Mcgee on 03-29-2023 Basophils/100 WBC (Bld) 0.4 % 0-1 [facility] Bilirubin [Mass/Vol] 0.50 mg/dL 0.20-1.00 [facility] Comment on above: For patients on eltr ombopag therapy, use of Dimension [place] TBIL is not recommended. Chloride [Moles/Vol] 111 mmol/L 98-107 [facility] Eosinophils/100 WBC (Bld) 1.2 % 0-5 [facility] Glucose [Mass/Vol] 134 mg/dL 74-106 [facility] Comment on above: Fasting Glucose resu lt greater than or equal to 126 mg/dL suggests DIABETES MELLITUS per A.D.A. criteria. Neutrophils (Bld) [#/Vol] 3.0 10*3/uL 2.0-7.7 [facility] Neutrophils/100 WBC (Bld) 44.6 % 47-70 [facility] Potassium [Moles/Vol] 3.7 mmol/L 3.5-5.1 [facility] Protein [Mass/Vol] 7.5 g/dL 6.4-8.2 [facility] Sodium [Moles/Vol] 142 mmol/L 136-145 [facility] WBC (Bld) [#/Vol] 6.7 10*3/uL 4.4-11.0 [facility] Blood erythrocytes count (nu mber/volume)Ordered By: Carolina Mcgee on 03-29-2023 RBC (Bld) [#/Vol] 4.13 10*6/uL 4.6-6.2 [facility] Blood hemoglobin measurement (mass/volume)Ordered By: Carolina Mcgee on 03-29-2023 Hemoglobin (Bld) [Mass/Vol] 13.9 g/dL 13.0-16.5 [facility] Blood lymphocytes/100 leukoc ytesOrdered By: [facility] Arely on 03-29-2023 Lymphocytes/100 WBC (Bld) 45.6 % 19-41 [facility] Blood monocytes/100 leukocyt esOrdered By: [facility]23 Monocytes/100 WBC (Bld) 7.8 % 0-10 [facility] Blood platelet mean volumeOr dered By: [facility] Arely on 03-29-2023 Platelet mean volume (Bld) [Entitic vol] 8.8 fL 6.2-12.0 [facility] Determination of erythrocyte mean corpuscular volume (MCV)Or[facility] By: [facility] 03-29-2023 MCV (RBC) [Entitic vol] 101.5 fL 80-94 [facility] Hematocrit Auto (Bld) [Volum e fraction]Ordered By: [facility] Arely on 03-29-2023 Hematocrit (Bld) [Volume fraction] 41.9 % 40-54 [facility] Laboratory - Chemistry and C hemistry - challengeOrdered By: [facility] Arely on 03-29-2023 ALP [Catalytic activity/Vol] 134 U/L 45-117 [facility] ALT [Catalytic activity/Vol] 14 U/L 16-61 [facility] CO2 [Moles/Vol] 27.0 mmol/L 21.0-32.0 [facility] Globulin (S) [Mass/Vol] 4.2 g/dL 2.2-4.2 [facility] Urea nitrogen/Creatinine [Mass ratio] 23.9 mg/mg 10-20 [facility] Laboratory - Hematology and Cell countsOrdered By: [facility] Arely on 03-29-2023 Erythrocyte distribution width (RBC) [Entitic vol] 49.7 fL 35.1-43.9 [facility] Erythrocyte distribution width (RBC) [Ratio] 13.2 % 11.6-14.6 [facility] Immature granulocytes/100 WBC (Bld) 0.400 % 0.0-0.9 [facility] Comment on above: IG% - Immature Granu locytes (promyelocytes, myelocytes and metamyelocytes) > 1% indicates that a LEFT SHIFT is Present. MCH (RBC) [Entitic mass] 33.7 pg 27.0-32.0 [facility] Nucleated RBC/100 WBC (Bld) [Ratio] 0 % 0-5 [facility] MCHC Auto (RBC) [Mass/Vol]Or dered By: Carolina Mcgee on 03-29-2023 MCHC (RBC) [Mass/Vol] 33.2 g/dL 32-36 [facility] No Panel InformationOrdered By: Carolina Mcgee on 03-29-2023 Estimated Creatinine Clearance Calc 49.35 ml/min [facility] Estimated GFR (MDRD) Amer 79 mL/min >60 [facility] Comment on above: GFR Calc Estimated GFR (MDRD) Non-Af Amer 65 mL/min >60 [facility] Comment on above: Non- GFR Calc Prostate Specific Antigen Total 539.00 ng/mL 0.0-4.0 [facility] Comment on above: This test was perfor med using the TPSA assay method for the[employer] chemistry system. Values obtained with differentassay methods cannot be used interchangably.When changing PSA assays in the course of monitoring apatient, additional sequential testing should be carriedout to confirm baseline values. Platelets bldOrdered By: Graham Mcgee on 03-29-2023 Platelets (Bld) [#/Vol] 196 10*3/uL 150-450 [facility] Serum or plasma albumin patricia urement (mass/volume)Ordered By: Carolina Mcgee on 03-29-2023 Albumin [Mass/Vol] 3.3 g/dL 3.2-5.0 [facility] Serum or plasma albumin/glob ulin mass ratioOrdered By: Carolina Mcgee on 03-29-2023 Albumin/Globulin [Mass ratio] 0.8 {ratio} 0.9-2.4 [facility] Serum or plasma calcium patricia urement (mass/volume)Ordered By: Carolina Mcgee on 03-29-2023 Calcium [Mass/Vol] 8.7 mg/dL 8.5-10.1 [facility] Serum or plasma creatinine m easurement (mass/volume)Ordered By: Carolina Mcgee on 03-29-2023 Creatinine [Mass/Vol] 1.13 mg/dL 0.70-1.30 [facility] Comment on above: The validity of the calculated GFR & GFRAA in patients over 70 years has not been determined. Clinical correlation is essential. Serum or plasma urea nitroge n measurement (mass/volume)Ordered By: Carolina Mcgee on 03-29-2023 Urea nitrogen [Mass/Vol] 27 mg/dL 7-18 [facility] Thin prep Papanicolaou smear with manual screeningOrdered By: Carolina Mcgee on 03-29-2023 Thin prep Papanicolaou smear with manual screening 11 U/L 15-37 [facility] Thin prep Papanicolaou smear with manual screening 4 5-15 [facility] Laboratory - Hematology and Cell countson 03-24-2023 HbA1c (Bld) [Mass fraction] 5.9 % 4.2-6.3 [facility] XR HUMERUS LEFTon 03-12-2023 XR HUMERUS LEFT EXAM: XR HUMERUS LEF T 3 VIEWS, 03/12/2023 15:14 PM COMPARISON: February 12, 2023 CLINICAL INDICATIONS: pathologic fracture of left humerus RELEVANT CLINICAL HISTORY: 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 Soft Tissue: There is no obvious soft tissue swelling. Bone: Redemonstrated lytic lesion with indistinct margins in the mid humeral diaphysis with mild expansion and cortical invasion. Associated transverse pathologic fracture with mild apex medial angulation across the dominant fracture fragments. Increased volume of incompletely bridging immature callus formation at the fracture margin. Joint: Limited evaluation of the elbow joint shows anatomic alignment. IMPRESSION: 1. Redemonstrated mildly displaced and angulated pathologic fracture at the mid left humeral diaphysis. Underlying aggressive lytic lesion with cortical invasion. Interval increase in partially bridging immature callus formation at the fracture margin. Normal [facility] XR Humerus - left Viewson IMPRESSION: 1. Redemonstrated mildly displaced and angulated pathologic fracture at the mid left humeral diaphysis. Underlying aggressive lytic lesion with cortical invasion. Interval increase in partially bridging immature callus formation at the fracture margin. 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 Soft Tissue: There is no obvious soft tissue swelling. Bone: Redemonstrated lytic lesion with indistinct margins in the mid humeral diaphysis with mild expansion and cortical invasion. Associated transverse pathologic fracture with mild apex medial angulation across the dominant fracture fragments. Increased volume of incompletely bridging immature callus formation at the fracture margin. Joint: Limited evaluation of the elbow joint shows anatomic alignment. 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 Soft Tissue: There is no obvious soft tissue swelling. Bone: Redemonstrated lytic lesion with indistinct margins in the mid humeral diaphysis with mild expansion and cortical invasion. Associated transverse pathologic fracture with mild apex medial angulation across the dominant fracture fragments. Increased volume of incompletely bridging immature callus formation at the fracture margin. Joint: Limited evaluation of the elbow joint shows anatomic alignment. IMPRESSION IMPRESSION: 1. Redemonstrated mildly displaced and angulated pathologic fracture at the mid left humeral diaphysis. Underlying aggressive lytic lesion with cortical invasion. Interval increase in partially bridging immature callus formation at the fracture margin. [facility] Radiology Study observation (narrative) [facility] XR Humerus - left ViewsOrder ed By: Paulo Trujillo on 03-12-2023 [facility] Work Phone: Absolute lymphocyte countOrd ered By: Carolina Mcgee on 02-24-2023 Lymphocytes Auto (Unsp spec) [#/Vol] 1.69 10*3/uL 0.83-4.51 [facility] Basophil percentageOrdered B y: Carolina Mcgee on 02-24-2023 Basophils/100 WBC (Bld) 0.4 % 0-1 [facility] Bilirubin [Mass/Vol] 0.70 mg/dL 0.20-1.00 [facility] Comment on above: For patients on eltr ombopag therapy, use of Dimension [place] TBIL is not recommended. Chloride [Moles/Vol] 108 mmol/L 98-107 [facility] Eosinophils/100 WBC (Bld) 0.4 % 0-5 [facility] Glucose [Mass/Vol] 139 mg/dL 74-106 [facility] Comment on above: Fasting Glucose resu lt greater than or equal to 126 mg/dL suggests DIABETES MELLITUS per A.D.A. criteria. Neutrophils (Bld) [#/Vol] 5.0 10*3/uL 2.0-7.7 [facility] Neutrophils/100 WBC (Bld) 67.8 % 47-70 [facility] Potassium [Moles/Vol] 4.2 mmol/L 3.5-5.1 [facility] Protein [Mass/Vol] 7.3 g/dL 6.4-8.2 [facility] Sodium [Moles/Vol] 139 mmol/L 136-145 [facility] WBC (Bld) [#/Vol] 7.4 10*3/uL 4.4-11.0 [facility] Blood erythrocytes count (nu mber/volume)Ordered By: Carolina Mcgee on 02-24-2023 RBC (Bld) [#/Vol] 4.42 10*6/uL 4.6-6.2 [facility] Blood hemoglobin measurement (mass/volume)Ordered By: Carolina Mcgee on 02-24-2023 Hemoglobin (Bld) [Mass/Vol] 14.5 g/dL 13.0-16.5 [facility] Blood lymphocytes/100 leukoc ytesOrdered By: Carolina Mcgee on 02-24-2023 Lymphocytes/100 WBC (Bld) 22.8 % 19-41 [facility] Blood monocytes/100 leukocyt esOrdered By: Carolina Mcgee on 02-24-2023 Monocytes/100 WBC (Bld) 7.4 % 0-10 [facility] Blood platelet mean volumeOr dered By: Carolina Mcgee on 02-24-2023 Platelet mean volume (Bld) [Entitic vol] 8.8 fL 6.2-12.0 [facility] Determination of erythrocyte mean corpuscular volume (MCV)Ordered By: Carolina Mcgee on 02-24-2023 MCV (RBC) [Entitic vol] 100.9 fL 80-94 [facility] Hematocrit Auto (Bld) [Volum e fraction][facility]: [facility] 02-24-2023 Hematocrit (Bld) [Volume fraction] 44.6 % 40-54 [facility] Laboratory - Chemistry and C hemistry - challengeOrdered By: [facility] Arely on 02-24-2023 ALP [Catalytic activity/Vol] 228 U/L 45-117 [facility] ALT [Catalytic activity/Vol] 18 U/L 16-61 [facility] CO2 [Moles/Vol] 27.0 mmol/L 21.0-32.0 [facility] Globulin (S) [Mass/Vol] 4.0 g/dL 2.2-4.2 [facility] Urea nitrogen/Creatinine [Mass ratio] 20.9 mg/mg 10-20 [facility] Laboratory - Hematology and Cell countsOrdered By: [facility] Arely on 02-24-2023 Erythrocyte distribution width (RBC) [Entitic vol] 48.3 fL 35.1-43.9 [facility] Erythrocyte distribution width (RBC) [Ratio] 12.9 % 11.6-14.6 [facility] Immature granulocytes/100 WBC (Bld) 1.200 % 0.0-0.9 [facility] Comment on above: IG% - Immature Granu locytes (promyelocytes, myelocytes and metamyelocytes) > 1% indicates that a LEFT SHIFT is Present. MCH (RBC) [Entitic mass] 32.8 pg 27.0-32.0 [facility] Nucleated RBC/100 WBC (Bld) [Ratio] 0 % 0-5 [facility] MCHC Auto (RBC) [Mass/Vol]Or dered [facility]: [facility] on 02-24-[facility]23 MCHC (RBC) [Mass/Vol] 32.5 g/dL 32-36 [facility] No Panel InformationOrdered By: Carolina Mcgee on 02-24-2023 Estimated GFR (MDRD) Amer 82 mL/min >60 [facility] Comment on above: GFR Calc Estimated GFR (MDRD) Non-Af Amer 68 mL/min >60 [facility] Comment on above: Non- GFR Calc Prostate Specific Antigen Total 823.00 ng/mL 0.0-4.0 [facility] Comment on above: This test was perfor med using the TPSA assay method for the[employer] chemistry system. Values obtained with differentassay methods cannot be used interchangably.When changing PSA assays in the course of monitoring apatient, additional sequential testing should be carriedout to confirm baseline values. Platelets bldOrdered By: Graham Mcgee on 02-24-2023 Platelets (Bld) [#/Vol] 229 10*3/uL 150-450 [facility] Serum or plasma albumin patricia urement (mass/volume)Ordered By: Carolina Mcgee on 02-24-2023 Albumin [Mass/Vol] 3.3 g/dL 3.2-5.0 [facility] Serum or plasma albumin/glob ulin mass ratioOrdered By: Carolina Mcgee on 02-24-2023 Albumin/Globulin [Mass ratio] 0.8 {ratio} 0.9-2.4 [facility] Serum or plasma calcium patricia urement (mass/volume)Ordered By: Carolina Mcgee on 02-24-2023 Calcium [Mass/Vol] 8.8 mg/dL 8.5-10.1 [facility] Serum or plasma creatinine m easurement (mass/volume)Ordered By: Carolina Mcgee on 02-24-2023 Creatinine [Mass/Vol] 1.10 mg/dL 0.70-1.30 [facility] Comment on above: The validity of the calculated GFR & GFRAA in patients over 70 years has not been determined. Clinical correlation is essential. Serum or plasma urea nitroge n measurement (mass/volume)Ordered By: Carolina Mcgee on 02-24-2023 Urea nitrogen [Mass/Vol] 23 mg/dL 7-18 [facility] Thin prep Papanicolaou smear with manual screeningOrdered By: Carolina Hesterloretta on 02-24-2023 Thin prep Papanicolaou smear with manual screening 16 U/L 15-37 [facility] Thin prep Papanicolaou smear with manual screening 4 5-15 [facility] Absolute lymphocyte countOrd ered By: Mariana Stephanie on 02-13-2023 Lymphocytes Auto (Unsp spec) [#/Vol] 1.61 10*3/uL 0.83-4.51 [facility] Basophil percentageOrdered B y: Mariana Brown on 02-13-2023 Basophils/100 WBC (Bld) 0.5 % 0-1 [facility] Bilirubin [Mass/Vol] 0.70 mg/dL 0.20-1.00 [facility] Comment on above: For patients on eltr ombopag therapy, use of Dimension [place] TBIL is not recommended. Chloride [Moles/Vol] 112 mmol/L 98-107 [facility] Eosinophils/100 WBC (Bld) 0.8 % 0-5 [facility] Glucose [Mass/Vol] 134 mg/dL 74-106 [facility] Comment on above: Fasting Glucose resu lt greater than or equal to 126 mg/dL suggests DIABETES MELLITUS per A.D.A. criteria. Neutrophils (Bld) [#/Vol] 5.1 10*3/uL 2.0-7.7 [facility] Neutrophils/100 WBC (Bld) 68.9 % 47-70 [facility] Potassium [Moles/Vol] 4.0 mmol/L 3.5-5.1 [facility] Protein [Mass/Vol] 5.8 g/dL 6.4-8.2 [facility] Sodium [Moles/Vol] 143 mmol/L 136-145 [facility] WBC (Bld) [#/Vol] 7.4 10*3/uL 4.4-11.0 [facility] Blood erythrocytes count (nu mber/volume)Ordered By: Mariana Brown on 02-13-2023 RBC (Bld) [#/Vol] 4.06 10*6/uL 4.6-6.2 [facility] Blood hemoglobin measurement (mass/volume)Ordered By: Mariana Brown on 02-13-2023 Hemoglobin (Bld) [Mass/Vol] 13.5 g/dL 13.0-16.5 [facility] Blood lymphocytes/100 leukoc ytesOrdered By: Mariana Brown on 02-13-2023 Lymphocytes/100 WBC (Bld) 21.9 % 19-41 [facility] Blood monocytes/100 leukocyt esOrdered By: Mariana Brown on 02-13-2023 Monocytes/100 WBC (Bld) 7.5 % 0-10 [facility] Blood platelet mean volumeOr dered By: Mariana Brown on 02-13-2023 Platelet mean volume (Bld) [Entitic vol] 9.7 fL 6.2-12.0 [facility] Determination of erythrocyte mean corpuscular volume (MCV)Ordered By: Mariana Brown on 02-13-2023 MCV (RBC) [Entitic vol] 101.0 fL 80-94 [facility] Glucose Glucometer (dC) [M ass/Vol]Ordered By: Ted Lee on 02-13-2023 Glucose [Mass/Vol] 149 mg/dL 74-106 [facility] Comment on above: MANAGEMENT OF PATIEN T CARE PER NURSING PROTOCOL Hematocrit Auto (Bld) [Volum e fraction]Ordered By: Mariana Brown on 02-13-2023 Hematocrit (Bld) [Volume fraction] 41.0 % 40-54 [facility] Laboratory - Chemistry and C hemistry - challengeOrdered By: Mariana Brown on 02-13-2023 ALP [Catalytic activity/Vol] 89 U/L 45-117 [facility] ALT [Catalytic activity/Vol] 12 U/L 16-61 [facility] CO2 [Moles/Vol] 26.0 mmol/L 21.0-32.0 [facility] Globulin (S) [Mass/Vol] 3.2 g/dL 2.2-4.2 [facility] Urea nitrogen/Creatinine [Mass ratio] 21.8 mg/mg 10-20 [facility] Laboratory - Hematology and Cell countsOrdered By: Mariana Brown on 02-13-2023 Erythrocyte distribution width (RBC) [Entitic vol] 48.1 fL 35.1-43.9 [facility] Erythrocyte distribution width (RBC) [Ratio] 12.9 % 11.6-14.6 [facility] Immature granulocytes/100 WBC (Bld) 0.400 % 0.0-0.9 [facility] Comment on above: IG% - Immature Granu locytes (promyelocytes, myelocytes and metamyelocytes) > 1% indicates that a LEFT SHIFT is Present. MCH (RBC) [Entitic mass] 33.3 pg 27.0-32.0 [facility] Nucleated RBC/100 WBC (Bld) [Ratio] 0 % 0-5 [facility] MCHC Auto (RBC) [Mass/Vol]Or dered By: Mariana Brown on 02-13-2023 MCHC (RBC) [Mass/Vol] 32.9 g/dL 32-36 [facility] No Panel InformationOrdered By: Mariana Brown on 02-13-2023 Estimated Creatinine Clearance Calc 60.61 ml/min [facility] Estimated GFR (MDRD) Amer 101 mL/min >60 [facility] Comment on above: GFR Calc Estimated GFR (MDRD) Non-Af Amer 83 mL/min >60 [facility] Comment on above: Non- GFR Calc Platelets bldOrdered By: Martinez Brown on 02-13-2023 Platelets (Bld) [#/Vol] 144 10*3/uL 150-450 [facility] Serum or plasma albumin patricia urement (mass/volume)Ordered By: Mariana Brown on 02-13-2023 Albumin [Mass/Vol] 2.6 g/dL 3.2-5.0 [facility] Serum or plasma albumin/glob ulin mass ratioOrdered By: Mariana Brown on 02-13-2023 Albumin/Globulin [Mass ratio] 0.8 {ratio} 0.9-2.4 [facility] Serum or plasma calcium patricia urement (mass/volume)Ordered By: Mariana Brown on 02-13-2023 Calcium [Mass/Vol] 8.3 mg/dL 8.5-10.1 [facility] Serum or plasma creatinine m easurement (mass/volume)Ordered By: Mariana Brown on 02-13-2023 Creatinine [Mass/Vol] 0.92 mg/dL 0.70-1.30 [facility] Comment on above: The validity of the calculated GFR & GFRAA in patients over 70 years has not been determined. Clinical correlation is essential. Serum or plasma urea nitroge n measurement (mass/volume)Ordered By: Mariana Brown on 02-13-2023 Urea nitrogen [Mass/Vol] 20 mg/dL 7-18 [facility] Thin prep Papanicolaou smear with manual screeningOrdered By: Mariana Brown on 02-13-2023 Thin prep Papanicolaou smear with manual screening 10 U/L 15-37 [facility] Thin prep Papanicolaou smear with manual screening 5 5-15 [facility] Absolute lymphocyte countOrd ered By: Simeon Gusman on 02-12-2023 Lymphocytes Auto (Unsp spec) [#/Vol] 1.81 10*3/uL 0.83-4.51 [facility] Basophil percentageOrdered B y: Simeon Gusman on 02-12-2023 Basophils/100 WBC (Bld) 0.4 % 0-1 [facility] Chloride [Moles/Vol] 110 mmol/L 98-107 [facility] Eosinophils/100 WBC (Bld) 0.5 % 0-5 [facility] Glucose [Mass/Vol] 145 mg/dL 74-106 [facility] Comment on above: Fasting Glucose resu lt greater than or equal to 126 mg/dL suggests DIABETES MELLITUS per A.D.A. criteria. Neutrophils (Bld) [#/Vol] 5.2 10*3/uL 2.0-7.7 [facility] Neutrophils/100 WBC (Bld) 66.8 % 47-70 [facility] Potassium [Moles/Vol] 3.6 mmol/L 3.5-5.1 [facility] Sodium [Moles/Vol] 142 mmol/L 136-145 [facility] WBC (Bld) [#/Vol] 7.7 10*3/uL 4.4-11.0 [facility] Blood erythrocytes count (nu mber/volume)Ordered By: Simeon Gusman on 02-12-2023 RBC (Bld) [#/Vol] 4.41 10*6/uL 4.6-6.2 [facility] Blood hemoglobin measurement (mass/volume)Ordered By: Simeon Gusman on 02-12-2023 Hemoglobin (Bld) [Mass/Vol] 14.4 g/dL 13.0-16.5 [facility] Blood lymphocytes/100 leukoc ytesOrdered By: Simeon Gusman on 02-12-2023 Lymphocytes/100 WBC (Bld) 23.5 % 19-41 [facility] Blood monocytes/100 leukocyt esOrdered By: Simeon Gusman on 02-12-2023 Monocytes/100 WBC (Bld) 8.2 % 0-10 [facility] Blood platelet mean volumeOr dered By: Simeon Gusman on 02-12-2023 Platelet mean volume (Bld) [Entitic vol] 9.2 fL 6.2-12.0 [facility] Determination of erythrocyte mean corpuscular volume (MCV)Ordered By: Simeon Gusman on 02-12-2023 MCV (RBC) [Entitic vol] 100.7 fL 80-94 [facility] Hematocrit Auto (Bld) [Volum e fraction]Ordered By: Simeon Gusman on 02-12-2023 Hematocrit (Bld) [Volume fraction] 44.4 % 40-54 [facility] Laboratory - Chemistry and C hemistry - challengeOrdered By: Simeon Gusman on 02-12-2023 CO2 [Moles/Vol] 31.0 mmol/L 21.0-32.0 [facility] Urea nitrogen/Creatinine [Mass ratio] 26.4 mg/mg 10-20 [facility] Laboratory - Chemistry and C hemistry - challengeOrdered By: Mariana Brown on 02-12-2023 Magnesium [Mass/Vol] 2.5 mg/dL 1.6-2.6 [facility] Laboratory - Hematology and Cell countsOrdered By: Simeon Gusman on 02-12-2023 Erythrocyte distribution width (RBC) [Entitic vol] 48.6 fL 35.1-43.9 [facility] Erythrocyte distribution width (RBC) [Ratio] 13.0 % 11.6-14.6 [facility] Immature granulocytes/100 WBC (Bld) 0.600 % 0.0-0.9 [facility] Comment on above: IG% - Immature Granu locytes (promyelocytes, myelocytes and metamyelocytes) > 1% indicates that a LEFT SHIFT is Present. MCH (RBC) [Entitic mass] 32.7 pg 27.0-32.0 [facility] Nucleated RBC/100 WBC (Bld) [Ratio] 0 % 0-5 [facility] MCHC Auto (RBC) [Mass/Vol]Or dered By: Simeon Gusman on 02-12-2023 MCHC (RBC) [Mass/Vol] 32.4 g/dL 32-36 [facility] No Panel InformationOrdered By: Simeon Gusman on 02-12-2023 Estimated Creatinine Clearance Calc 52.61 ml/min [facility] Estimated GFR (MDRD) Amer 85 mL/min >60 [facility] Comment on above: GFR Calc Estimated GFR (MDRD) Non-Af Amer 70 mL/min >60 [facility] Comment on above: Non- GFR Calc Platelets bldOrdered By: Jerrell Gusman on 02-12-2023 Platelets (Bld) [#/Vol] 160 10*3/uL 150-450 [facility] Serum or plasma calcium patricia urement (mass/volume)Ordered By: Simeon Gusman on 02-12-2023 Calcium [Mass/Vol] 8.9 mg/dL 8.5-10.1 [facility] Serum or plasma creatinine m easurement (mass/volume)Ordered By: Simeon Gusman on 02-12-2023 Creatinine [Mass/Vol] 1.06 mg/dL 0.70-1.30 [facility] Comment on above: The validity of the calculated GFR & GFRAA in patients over 70 years has not been determined. Clinical correlation is essential. Serum or plasma urea nitroge n measurement (mass/volume)Ordered By: Simeon Gusman on 02-12-2023 Urea nitrogen [Mass/Vol] 28 mg/dL 7-18 [facility] Thin prep Papanicolaou smear with manual screeningOrdered By: Simeon Gusman on 02-12-2023 Thin prep Papanicolaou smear with manual screening 1 5-15 [facility] Absolute lymphocyte countOrd ered By: Dyan Kyle on 01-21-2023 Lymphocytes Auto (Unsp spec) [#/Vol] 2.87 10*3/uL 0.83-4.51 [facility] Basophil percentageOrdered B y: Dyan Kyle on 01-21-2023 Basophil percentage 0 SEEN /hpf 0-5 [facility] Basophils/100 WBC (Bld) 0.6 % 0-1 [facility] Bilirubin [Mass/Vol] 1.00 mg/dL 0.20-1.00 [facility] Comment on above: For patients on eltr ombopag therapy, use of Dimension [place] TBIL is not recommended. Chloride [Moles/Vol] 109 mmol/L 98-107 [facility] Cholesterol [Mass/Vol] 164 mg/dL <200 [facility] Comment on above: <200 mg/dL Desirable 200-240 mg/dL Borderline >240 mg/dL High Risk Eosinophils/100 WBC (Bld) 1.2 % 0-5 [facility] Glucose [Mass/Vol] 129 mg/dL 74-106 [facility] Comment on above: Fasting Glucose resu lt greater than or equal to 126 mg/dL suggests DIABETES MELLITUS per A.D.A. criteria. Neutrophils (Bld) [#/Vol] 3.1 10*3/uL 2.0-7.7 [facility] Neutrophils/100 WBC (Bld) 47.1 % 47-70 [facility] Potassium [Moles/Vol] 4.6 mmol/L 3.5-5.1 [facility] Protein [Mass/Vol] 7.2 g/dL 6.4-8.2 [facility] Sodium [Moles/Vol] 141 mmol/L 136-145 [facility] Triglyceride [Mass/Vol] 88 mg/dL <199 [facility] Comment on above: The drugs N-Acetylcy steine and Metamizole may falsely depress this assay.Serum Triglycerides Reference Interval Normal <150 mg/dL Borderline high 150 - 199 mg/dL High 200 - 499 mg/dL Very High > or = 500 mg/dL WBC (Bld) [#/Vol] 6.5 10*3/uL 4.4-11.0 [facility] Bilirubin Test strip Ql (U)O rdered By: Dyan Kyle on 01-21-2023 Bilirubin Ql (U) Negative Negative [facility] Blood erythrocytes count (nu mber/volume)Ordered By: Dyan Kyle on 01-21-2023 RBC (Bld) [#/Vol] 4.51 10*6/uL 4.6-6.2 [facility] Blood hemoglobin measurement (mass/volume)Ordered By: Dyan Kyle on 01-21-2023 Hemoglobin (Bld) [Mass/Vol] 14.9 g/dL 13.0-16.5 [facility] Blood lymphocytes/100 leukoc ytesOrdered By: Dyan Kyle on 01-21-2023 Lymphocytes/100 WBC (Bld) 43.9 % 19-41 [facility] Blood monocytes/100 leukocyt esOrdered By: Dyan Kyle on 01-21-2023 Monocytes/100 WBC (Bld) 6.9 % 0-10 [facility] Blood platelet mean volumeOr dered By: Dyan Kyle on 01-21-2023 Platelet mean volume (Bld) [Entitic vol] 10.5 fL 6.2-12.0 [facility] Determination of erythrocyte mean corpuscular volume (MCV)Ordered By: Dyan Kyle on 01-21-2023 MCV (RBC) [Entitic vol] 102.2 fL 80-94 [facility] Erythrocyte sedimentation ra teOrdered By: Dyan Kyle on 01-21-2023 ESR (Bld) [Velocity] 6 mm/h 0-20 [facility] Hematocrit Auto (Bld) [Volum e fraction]Ordered By: [facility] Kyle on 01-21-2023 Hematocrit (Bld) [Volume fraction] 46.1 % 40-54 [facility] Ketones Test strip Ql (U)Ord ered By: Dyan Kyle on 01-21-2023 Ketones Ql (U) 5 mg/dl Negative [facility] Laboratory - Chemistry and C hemistry - challengeOrdered By: Dyan Kyle on 01-21-2023 ALP [Catalytic activity/Vol] 84 U/L 45-117 [facility] ALT [Catalytic activity/Vol] 15 U/L 16-61 [facility] CO2 [Moles/Vol] 25.0 mmol/L 21.0-32.0 [facility] Free T4 [Mass/Vol] 1.15 ng/dL 0.76-1.46 [facility] Globulin (S) [Mass/Vol] 3.7 g/dL 2.2-4.2 [facility] Urea nitrogen/Creatinine [Mass ratio] 19.8 mg/mg 10-20 [facility] Laboratory - Hematology and Cell countsOrdered By: Dyan Kyle on 01-21-2023 Erythrocyte distribution width (RBC) [Entitic vol] 50.8 fL 35.1-43.9 [facility] Erythrocyte distribution width (RBC) [Ratio] 13.3 % 11.6-14.6 [facility] Immature granulocytes/100 WBC (Bld) 0.300 % 0.0-0.9 [facility] Comment on above: IG% - Immature Granu locytes (promyelocytes, myelocytes and metamyelocytes) > 1% indicates that a LEFT SHIFT is Present. MCH (RBC) [Entitic mass] 33.0 pg 27.0-32.0 [facility] Nucleated RBC/100 WBC (Bld) [Ratio] 0 % 0-5 [facility] MCHC Auto (RBC) [Mass/Vol]Or dered By: Dyan Kyle on 01-21-2023 MCHC (RBC) [Mass/Vol] 32.3 g/dL 32-36 [facility] Mucus LM Ql (Urine sed)Order ed By: Dyan Kyle on 01-21-2023 Mucus Ql (Urine sed) 0 SEEN /hpf [facility] Nitrite Test strip Ql (U)Ord ered By: Dyan Kyle on 01-21-2023 Nitrite Ql (U) Negative Negative [facility] No Panel InformationOrdered By: Dyan Kyle on 01-21-2023 Estimated GFR (MDRD) Amer 81 mL/min >60 [facility] Comment on above: GFR Calc Estimated GFR (MDRD) Non-Af Amer 67 mL/min >60 [facility] Comment on above: Non- GFR Calc Prostate Specific Antigen Screen 513.00 ng/mL 0.00-4.00 [facility] Comment on above: This test was perfor med using the TPSA assay method for the[employer] chemistry system. Values obtained with differentassay methods cannot be used interchangably.When changing PSA assays in the course of monitoring apatient, additional sequential testing should be carriedout to confirm baseline values. Thyroid Stimulating Hormone (TSH) 1.86 uIU/mL 0.358-3.74 [facility] Platelets bldOrdered By: Shayne Kyle on 01-21-2023 Platelets (Bld) [#/Vol] 213 10*3/uL 150-450 [facility] Protein Test strip Ql (U)Ord ered By: Dyan Kyle on 01-21-2023 Protein Ql (U) Negative Negative [facility] Serum or plasma albumin patricia urement (mass/volume)Ordered By: Lianechantalvania Sunjuliandayanara on 01-21-2023 Albumin [Mass/Vol] 3.5 g/dL 3.2-5.0 [facility] Serum or plasma albumin/glob ulin mass ratioOrdered By: Polloevachantalvania Sunjuliandayanara on 01-21-2023 Albumin/Globulin [Mass ratio] 0.9 {ratio} 0.9-2.4 [facility] Serum or plasma calcium patricia urement (mass/volume)Ordered By: Lianechantalvania Sunjuliandayanara on 01-21-2023 Calcium [Mass/Vol] 9.2 mg/dL 8.5-10.1 [facility] Serum or plasma cholesterol in HDL measurement (mass/volume)Ordered By: Polloevachantalvania Sunjuliandayanara on 01-21-2023 Cholesterol in HDL [Mass/Vol] 54 mg/dL >40 [facility] Comment on above: The drugs N-Acetylcy steine and Metamizole may falsely depress this assay. Reference Range HDL <40 mg/dL Low HDL Cholesterol HDL >or= 60 mg/dL High HDL Cholesterol Serum or plasma cholesterol in VLDL measurement (mass/volume)Ordered By: Dyan Kyle on 01-21-2023 Cholesterol in VLDL [Mass/Vol] 18 mg/dL 5-40 [facility] Serum or plasma creatinine m easurement (mass/volume)Ordered By: Polloevachantalvania Kyle on 01-21-2023 Creatinine [Mass/Vol] 1.11 mg/dL 0.70-1.30 [facility] Comment on above: The validity of the calculated GFR & GFRAA in patients over 70 years has not been determined. Clinical correlation is essential. Serum or plasma low density lipoprotein (LDL) cholesterol measurement (mass/volume)Ordered By: Dyan Kyle on 01-21-2023 Cholesterol in LDL [Mass/Vol] 92 mg/dL 0-130 [facility] Serum or plasma urea nitroge n measurement (mass/volume)Ordered By: Dyan Kyle on 01-21-2023 Urea nitrogen [Mass/Vol] 22 mg/dL 7-18 [facility] Squamous epithelial cells de tection in urine sediment by light microscopyOrdered By: Dyan Kyle on 01-21-2023 Epithelial cells.squamous LM Ql (Urine sed) 0 SEEN /hpf 0-5 [facility] Thin prep Papanicolaou smear with manual screeningOrdered By: Dyan Kyle on 01-21-2023 Thin prep Papanicolaou smear with manual screening 14 U/L 15-37 [facility] Thin prep Papanicolaou smear with manual screening 7 5-15 [facility] Urine blood detectionOrdered By: Dyan Kyle on 01-21-2023 RBC Ql (U) Negative Negative [facility] RBC Ql (U) 0 SEEN /hpf 0-5 [facility] Urine clarityOrdered By: Shayne Kyle on 01-21-2023 Clarity (U) Clear Clear [facility] Urine color determinationOrd ered By: Dyan Kyle on 01-21-2023 Color (U) Yellow Yellow [facility] Urine glucose detectionOrder ed By: Dyan Kyle on 01-21-2023 Glucose Ql (U) Normal mg/dl Normal [facility] Urine leukocyte esterase det ection by dipstickOrdered By: Dyan Kyle on 01-21-2023 Leukocyte esterase Test strip Ql (U) Negative Negative [facility] Urine pHOrdered By: Essence Kyle on 01-21-2023 pH (U) 5.0 [pH] 5.0 - 8.0 [facility] Urine sediment bacteria coun t by microscopy (number/high power field)Ordered By: Dyan Kyle on 01-21-2023 Bacteria LM.HPF (Urine sed) [#/Area] 0 /[HPF] None Seen [facility] Urine specific gravity measu rementOrdered By: Dyan Kyle on 01-21-2023 Specific gravity (U) [Rel density] 1.020 1.002-1.030 [facility] Urobilinogen Auto test strip Ql (U)Ordered By: Dyan Kyle on 01-21-2023 Urobilinogen Ql (U) Normal mg/dl Normal [facility] Laboratory - Hematology and Cell countson 01-20-2023 HbA1c (Bld) [Mass fraction] 6.2 % 4.2-6.3 [facility] Absolute lymphocyte counton 11-28-2021 Lymphocytes Auto (Unsp spec) [#/Vol] 3.25 10*3/uL 0.83-4.51 [facility] Work Phone: Basophil percentageon 2021 Basophils/100 WBC (Bld) 0.6 % 0-1 [facility] Work Phone: Bilirubin [Mass/Vol] 0.80 mg/dL 0.20-1.00 [facility] Work Phone: Comment on above: For patients on eltr ombopag therapy, use of Dimension [place] TBIL is not recommended. Chloride [Moles/Vol] 111 mmol/L 98-107 [facility] Work Phone: Cholesterol [Mass/Vol] 167 mg/dL <200 [facility] Work Phone: Comment on above: <200 mg/dL Desirable 200-240 mg/dL Borderline >240 mg/dL High Risk Eosinophils/100 WBC (Bld) 1.4 % 0-5 [facility] Work Phone: Glucose [Mass/Vol] 122 mg/dL 74-106 [facility] Work Phone: Comment on above: Fasting Glucose resu lt from 100 to 125 mg/dL suggests IMPAIRED HOMEOSTASIS per A.D.A. criteria. Neutrophils (Bld) [#/Vol] 2.6 10*3/uL 2.0-7.7 [facility] Work Phone: Neutrophils/100 WBC (Bld) 40.4 % 47-70 [facility] Work Phone: Potassium [Moles/Vol] 4.6 mmol/L 3.5-5.1 [facility] Work Phone: Protein [Mass/Vol] 7.1 g/dL 6.4-8.2 [facility] Work Phone: Sodium [Moles/Vol] 142 mmol/L 136-145 [facility] Work Phone: Triglyceride [Mass/Vol] 67 mg/dL <199 [facility] Work Phone: Comment on above: The drugs N-Acetylcy steine and Metamizole may falsely depress this assay.Serum Triglycerides Reference Interval Normal <150 mg/dL Borderline high 150 - 199 mg/dL High 200 - 499 mg/dL Very High > or = 500 mg/dL WBC (Bld) [#/Vol] 6.4 10*3/uL 4.4-11.0 [facility] Work Phone: Blood erythrocytes count (nu mber/volume)on 11-28-2021 RBC (Bld) [#/Vol] 4.37 10*6/uL 4.6-6.2 [facility] Work Phone: Blood hemoglobin measurement (mass/volume)on 11-28-2021 Hemoglobin (Bld) [Mass/Vol] 14.5 g/dL 13.0-16.5 [facility] Work Phone: Blood lymphocytes/100 leukoc yteson 11-28-2021 Lymphocytes/100 WBC (Bld) 50.5 % 19-41 [facility] Work Phone: Blood monocytes/100 leukocyt eson 11-28-2021 Monocytes/100 WBC (Bld) 6.8 % 0-10 [facility] Work Phone: Blood platelet mean volumeon 11-28-2021 Platelet mean volume (Bld) [Entitic vol] 10.8 fL 6.2-12.0 [facility] Work Phone: Determination of erythrocyte mean corpuscular volume (MCV)on 11-28-2021 MCV (RBC) [Entitic vol] 99.5 fL 80-94 [facility] Work Phone: [phone] Hematocrit Auto (Bld) [Volum e fraction]on 11-28-2021 Hematocrit (Bld) [Volume fraction] 43.5 % 40-54 [facility] Work Phone: Laboratory - Chemistry and C hemistry - challengeon 11-28-2021 ALP [Catalytic activity/Vol] 55 U/L 45-117 [facility] Work Phone: ALT [Catalytic activity/Vol] 16 U/L 16-61 [facility] Work Phone: [phone] CO2 [Moles/Vol] 29.0 mmol/L 21.0-32.0 [facility] Work Phone: [phone] Globulin (S) [Mass/Vol] 3.7 g/dL 2.2-4.2 [facility] Work Phone: [phone] Urea nitrogen/Creatinine [Mass ratio] 22.1 mg/mg 10-20 [facility] Work Phone: Laboratory - Hematology and Cell countson 11-28-2021 Erythrocyte distribution width (RBC) [Entitic vol] 48.6 fL 35.1-43.9 [facility] Work Phone: [phone] Erythrocyte distribution width (RBC) [Ratio] 13.2 % 11.6-14.6 [facility] Work Phone: Immature granulocytes/100 WBC (Bld) 0.300 % 0.0-0.9 [facility] Work Phone: [phone] Comment on above: IG% - Immature Granu locytes (promyelocytes, myelocytes and metamyelocytes) > 1% indicates that a LEFT SHIFT is Present. MCH (RBC) [Entitic mass] 33.2 pg 27.0-32.0 [facility] Work Phone: [phone] Nucleated RBC/100 WBC (Bld) [Ratio] 0 % 0-5 [facility] Work Phone: MCHC Auto (RBC) [Mass/Vol]on 11-28-2021 MCHC (RBC) [Mass/Vol] 33.3 g/dL 32-36 [facility] Work Phone: No Panel Informationon 11-28 Estimated GFR (MDRD) Amer 79 mL/min >60 [facility] Work Phone: Comment on above: GFR Calc Estimated GFR (MDRD) Non-Af Amer 66 mL/min >60 [facility] Work Phone: Comment on above: Non- GFR Calc Platelets bldon 11-28-2021 Platelets (Bld) [#/Vol] 193 10*3/uL 150-450 [facility] Work Phone: Serum or plasma albumin patricia urement (mass/volume)on 11-28-2021 Albumin [Mass/Vol] 3.4 g/dL 3.2-5.0 [facility] Work Phone: Serum or plasma albumin/glob ulin mass ratioon 11-28-2021 Albumin/Globulin [Mass ratio] 0.9 {ratio} 0.9-2.4 [facility] Work Phone: Serum or plasma calcium patricia urement (mass/volume)on 11-28-2021 Calcium [Mass/Vol] 9.0 mg/dL 8.5-10.1 [facility] Work Phone: Serum or plasma cholesterol in HDL measurement (mass/volume)on 11-28-2021 Cholesterol in HDL [Mass/Vol] 54 mg/dL >40 [facility] Work Phone: Comment on above: The drugs N-Acetylcy steine and Metamizole may falsely depress this assay. Reference Range HDL <40 mg/dL Low HDL Cholesterol HDL >or= 60 mg/dL High HDL Cholesterol Serum or plasma cholesterol in VLDL measurement (mass/volume)on 11-28-2021 Cholesterol in VLDL [Mass/Vol] 13 mg/dL 5-40 [facility] Work Phone: Serum or plasma creatinine m easurement (mass/volume)on 11-28-2021 Creatinine [Mass/Vol] 1.13 mg/dL 0.70-1.30 [facility] Work Phone: Comment on above: The validity of the calculated GFR & GFRAA in patients over 70 years has not been determined. Clinical correlation is essential. Serum or plasma low density lipoprotein (LDL) cholesterol measurement (mass/volume)on 11-28-2021 Cholesterol in LDL [Mass/Vol] 100 mg/dL 0-130 [facility] Work Phone: Serum or plasma urea nitroge n measurement (mass/volume)on 11-28-2021 Urea nitrogen [Mass/Vol] 25 mg/dL 7-18 [facility] Work Phone: Thin prep Papanicolaou smear with manual screeningon 11-28-2021 Thin prep Papanicolaou smear with manual screening 19 U/L 15-37 [facility] Work Phone: Thin prep Papanicolaou smear with manual screening 2 5-15 [facility] Work Phone: Laboratory - Hematology and Cell countson 11-27-2021 HbA1c (Bld) [Mass fraction] 5.7 % 4.2-6.3 [facility] Work Phone: [facility] ([id number]) 1935 M Date Time Provider Department 12/13/20 JENNIFER TRENT INTWS During your visit today, we recorded the following information about you: Lily Nguyễn RN 12/13/2020 4:13 PM Signed Patient notified of results and provider's instructions. Joce Hernandez APRN.[employer] 11/28/2020 11:49 PM EDT Back to Top Kidney function improved. A1C trending up, continue Metformin along with focus on low carb/low sugar diet and maintaining healthy weight. ? Joce Hernandez APRN.GEORGIE Patient verbalizes understanding. Lily Nguyễn RN Allergies As of Date: 12/13/2020 Noted Allergy Reaction SHELLFISH DERIVED 12/12/2015 7 - Swelling Date Reviewed: 11/28/2020 Reviewed by: Sophia Pineda LPN - Fully Assessed Reason for Visit: Results [95] Prescriptions as of 12/13/2020 - metFORMIN ER (GLUCOPHAGE XR) 500 mg 24 hr tablet Take 1 tablet by mouth daily with breakfast. - multivit-min/FA/lycop en/lutein (CENTRUM SILVER MEN ORAL) Take by mouth. Problem List As Of Date 12/13/2020 Noted Resolved Closed fracture of part of fibula [S82.409A] 12/24/2015 Encounter Status:Closed by LILY NGUYỄN on 12/13/20 [facility] OBSOLETEon 12-13-2020 OBSOLETE Refill (INTMWS) JESS JAMES ([id number]) 1935 M Date Time Provider Department 12/13/20 JENNIFER TRENT INTMWS During your visit today, we recorded the following information about you: Lily Nguyễn RN 12/13/2020 4:13 PM Signed Patient has been identified by name and date of : Yes Patient phones for refill(s): Pending Prescriptions Disp Refills METFORMIN ER 500 MG TABLET,EXTENDED RELEASE 24 HR 90 tablet 3 Sig: Take 1 tablet by mouth daily with breakfast. MICA: No Date of last office visit in primary care: 09/20/2020 Last 2 Encounter Wt Readings: Date: Wt: 09/20/2020 84.4 kg (186 lb) 06/23/2019 85.7 kg (189 lb) Previous labs/tests for medication: Diabetes: Hemoglobin A1C (%) Date Value 11/22/2020 6.1 06/04/2020 5.7 Please advise. Thank you. Lily Nguyễn RN Joce Hernandez APRN.[employer] 12/13/2020 4:15 PM Signed The following approved medication requests have been transmitted electronically. Signed Prescriptions Disp Refills metFORMIN ER (GLUCOPHAGE XR) 500 mg 24 hr tablet 90 tablet 3 Sig: Take 1 tablet by mouth daily with breakfast. MICA: No Authorizing Provider: JOCE HERNANDEZ APRN.[employer]ER Allergies As of Date: 12/13/2020 Noted Allergy Reaction SHELLFISH DERIVED 12/12/2015 7 - Swelling Date Reviewed: 11/28/2020 Reviewed by: Sophia Pineda LPN - Fully Assessed Reason for Visit: Refill Request [94] Visit Diagnosis:Controlled type 2 diabetes mellitus with stage 3 chronic kidney disease, without long-term current use of insulin (HCC) [E11.22, N18.30] Order(s):metFORMIN ER (GLUCOPHAGE XR) 500 mg 24 hr tabletTake 1 tablet by mouth daily with breakfast.Disp: 90 tabletRfl: 3 Prescriptions as of 12/13/2020 - metFORMIN ER (GLUCOPHAGE XR) 500 mg 24 hr tablet Take 1 tablet by mouth daily with breakfast. - multivit-min/FA/lycop en/lutein (CENTRUM SILVER MEN ORAL) Take by mouth. Problem List As Of Date 12/13/2020 Noted Resolved Closed fracture of part of fibula [S82.409A] 12/24/2015 Prescriptions ordered this encounter Disp Refills Start End METFORMIN ER 500 MG TABLET,EXTENDED * 90 t* 3 12/13/2020 Route: ORAL Sig: Take 1 tablet by mouth daily with breakfast. Medications Discontinued During This Encounter Prescriptions - metFORMIN ER (GLUCOPHAGE XR) 500 mg 24 hr tablet (Discontinued) Take 1 tablet by mouth daily with breakfast. Encounter Status:Closed by JOCE HERNANDEZ on 12/13/20 [facility] CNNURSEon 11-28-2020 [facility] Nurse Visit (FAMPWS) JESS JAMES ([id number]) 1935 M Date Time Provider Department 11/28/20 9:45 AM [place] NURSE MEGHAN During your visit today, we recorded the following information about you: Pulse Blood pressure 105/minute 132/79 Sophia Pineda LPN 11/28/2020 10:01 AM Signed Manual Readin/80 Pulse: 104 BP [place] average: [...] after review by PCP. Sophia Pineda LPN Referring Provider: JCOE HERNANDEZ [[id number]] Allergies As of Date: 11/28/2020 Noted Allergy Reaction SHELLFISH DERIVED 12/12/2015 7 - Swelling Date Reviewed: 11/28/2020 Reviewed by: Sophia Pineda LPN - Fully Assessed Reason for Visit: Blood Pressure Check [195] Primary Visit Diagnosis:Elevated blood pressure reading without diagnosis of hypertension [R03.0] Prescriptions as of 11/28/2020 - metFORMIN ER (GLUCOPHAGE XR) 500 mg 24 hr tablet Take 1 tablet by mouth daily with breakfast. - multivit-min/FA/lycop en/lutein (CENTRUM SILVER MEN ORAL) Take by mouth. Problem List As Of Date 11/28/2020 Noted Resolved Closed fracture of part of fibula [S82.409A] 12/24/2015 Encounter Status:Closed by SOPHIA PINEDA LPN on 11/28/20 [facility] 11-28-2020 [facility] Telephone (INTMWS) JESS JAMES ([id number]) 1935 M Date Time Provider Department 11/28/20 JENNIFER TRENT INTMWS During your visit today, we recorded the following information about you: Sophia Pineda LPN 11/28/2020 10:00 AM Signed Manual Readin/80 Pulse: 104 BP [place] average: [...] further instructions after review by PCP. Sophia Trent MD 11/28/2020 9:06 PM Signed Blood pressure is reasonable To cont the same , no medication changes Allergies As of Date: 11/28/2020 Noted Allergy Reaction SHELLFISH DERIVED 12/12/2015 7 - Swelling Date Reviewed: 11/28/2020 Reviewed by: Sophia Pineda LPN - Fully Assessed Reason for Visit: Blood Pressure Check [195] Prescriptions as of 11/29/2020 - metFORMIN ER (GLUCOPHAGE XR) 500 mg 24 hr tablet Take 1 tablet by mouth daily with breakfast. - multivit-min/FA/lycop en/lutein (CENTRUM SILVER MEN ORAL) Take by mouth. Problem List As Of Date 11/28/2020 Noted Resolved Closed fracture of part of fibula [S82.409A] 12/24/2015 Encounter Status:Closed by HAILEY PIMENTEL MA on 11/29/20 Normal [facility] Remote BMP (for [facility] use only )on 11-22-2020 Anion gap [Moles/Vol] 12 mmol/L Normal 9-18 [facility] Comment on above: Performed By: #### R BMP, RHBA1C #### [facility] [employer] [address] [place], [place] [address] Calcium [Mass/Vol] 9.4 mg/dL Normal 8.5-10.2 [facility] Comment on above: Performed By: #### R BMP, RHBA1C #### [facility] [employer] [address] [place], [place] [address] Chloride [Moles/Vol] 107 mmol/L High 97-105 [facility] Comment on above: Performed By: #### R BMP, RHBA1C #### [facility] [employer] [address] [place], [place] [address] CO2 [Moles/Vol] 24 mmol/L Normal 22-30 [facility] Comment on above: Performed By: #### R BMP, RHBA1C #### [facility] [employer] [address] [place], [place] [address] Creatinine [Mass/Vol] 1.15 mg/dL Normal 0.73-1.22 [facility] Comment on above: Performed By: #### R BMP, RHBA1C #### [facility] [address] [place], [place] [id number] eGFR- Amer. >60 Normal [facility] Comment on above: Performed By: #### R BMP, RHBA1C #### [facility] [address], [place] [id number] eGFR-All Other Races >60 Normal [facility] Comment on above: Result Comment: eGFR (Estimated GFR) Units of measure: mL/min/1.73 meters squared eGFR is derived from the reexpressed MDRD Study equation using the following parameters: serum creatinine, age, gender and race. The creatinine assay has been calibrated to be traceable to IDMS. An eGFR <60 mL/min/1.73m2 for >3 months is consistent with chronic kidney disease. Refer to KDOQI guidelines for clinical interpretation. In patients with unstable renal function, e.g. those with acute kidney injury, the eGFR may not accurately reflect actual GFR. Performed By: #### R BMP, RHBA1C #### [facility] [address], [place] [address] Glucose [Mass/Vol] 113 mg/dL High 74-99 [facility] Comment on above: Result Comment: The [place] Diabetes Association (ADA) provides guidance for cutoff values for fasting glucose and random glucose. The ADA defines fasting as no caloric intake for at least 8 hours. Fasting plasma glucose results between 100 to 125 mg/dL indicate increased risk for diabetes (prediabetes). Fasting plasma glucose results greater than or equal to 126 mg/dL meet the criteria for diagnosis of diabetes. In the absence of unequivocal hyperglycemia, results should be confirmed by repeat testing. In a patient with classic symptoms of hyperglycemia or hyperglycemic crisis, random plasma glucose results greater than or equal to 200 mg/dL meet the criteria for diagnosis of diabetes. Reference: Standards of Medical Care in Diabetes 2016, [place] Diabetes Association. Diabetes Care. 2016.39(Suppl 1). Performed By: #### R BMP, RHBA1C #### [facility] [address], [place] [address] Potassium [Moles/Vol] 4.5 mmol/L Normal 3.7-5.1 [facility] Comment on above: Performed By: #### R BMP, RHBA1C #### [facility] [employer] [address] [place] [address] Sodium [Moles/Vol] 143 mmol/L Normal 136-144 [facility] Comment on above: Performed By: #### R BMP, RHBA1C #### [facility] [employer] [facility] [place] [address] Urea nitrogen [Mass/Vol] 27 mg/dL High 9-24 [facility] Comment on above: Performed By: #### R BMP, RHBA1C #### [place] [address] Remote HBA1C (for [facility] use o nly)on 11-22-2020 Glucose [Mass/Vol] 128 mg/dL Normal [facility] Comment on above: Result Comment: eAG: (Estimated average glucose) is a calculated value from HgbA1c and is inside outside sales representative of the average blood glucose level in the last 2-3 month period. Performed By: #### R BMP, RHBA1C #### [place] [id number] [place] [address] HbA1c (Bld) [Mass fraction] 6.1 % High 4.3-5.6 [facility] Comment on above: Result Comment: Amer [place] Diabetes Association guidelines indicate that patients with HgbA1c in the range 5.7-6.4% are at increased risk for development of diabetes, and intervention by lifestyle modification may be beneficial. HgbA1c greater or equal to 6.5% is considered diagnostic of diabetes. Performed By: #### R BMP, RHBA1C #### [facility] [address] [place] [address] CNPNon 09-24-2020 CNPN Telephone (PSYLME) JACOBJESS ([id number]) 1935 M Date Time Provider Department 09/24/20 FAUSTO DUBOIS During your visit today, we recorded the following information about you: TYRESE Young 09/24/2020 1:42 PM Signed Behavioral Health Social Work Progress Note Patient identified for [facility] from: PCP (Joce Hernandez CNP) Reason for referral: Resources Behavioral Health Resources: Psychology - talk therapy (situational depression) [facility] encounter type: Telephone Encounter Attempts to Outreach: 1 attempt Final Disposition: Unable to reach (09-24-20 let ) Patient Discharged?: No Patient reported that caregiver was able to meet their needs today?: N/A [facility] received a consult from Joce Hernandez CNP, for psychology, to address situational depression -since pandemic increased emotions -doesn't go anywhere -isolation has been depressing -several friends have [facility] reviewed Pt's chart/insurance Pt resides in [facility]/[employer] medicare [facility]W attempted to contact Pt at [phone] -no answer -left vm to return call to [phone] -also left on voice message [facility] will be sending resources in a ltr [facility] will send the following resources in a ltr: [facility] [address] [facility], [address], [facility] [address] [facility] [address] [place] [address] [employer] [address] [place] [address] [place], [place] [id number] [address] [id number] If you are interested in receiving psychiatry/psychology services at the [facility], a behavioral health assessment needs to be completed prior to seeing a provider, I would be happy to complete your assessment, please call me at [phone] to schedule a virtual appointment. Crisis line [phone] [facility] will f/u with Pt TYRESE Young-S September 24, 2020 Allergies As of Date: 09/24/2020 Noted Allergy Reaction SHELLFISH DERIVED 12/12/2015 7 - Swelling Date Reviewed: 09/20/2020 Reviewed by: Viki Up MA - Fully Assessed Reason for Visit: Consult [173] Cmt: Initial [facility] Pt Outreach Prescriptions as of 09/24/2020 Sig: METFORMIN ER 500 MG TABLET,EX* Take 1 tablet by mouth daily * CENTRUM SILVER MEN ORAL Take by mouth. Problem List As Of Date 09/24/2020 Noted Resolved Closed fracture of part of fibula [S82.409A] 12/24/2015 Letter Text Encounter Status:Closed by FAUSTO DUBOIS on 09/24/20 Normal [facility] CNOVon 09-20-2020 CNOV Office Visit (INTMWS ) JESS JAMES ([id number]) 1935 M Date Time Provider Department 09/20/20 12:40 PM JOCE HERNANDEZ INTSabineWS During your visit today, we recorded the following information about you: Pulse Respiration Blood pressure Weight 88/minute 16/minute 150/96 84.4 kg Height 1.791 m Joce Hernandez APRN.CNP 09/23/2020 8:09 AM Signed CC: Patient presents with: Follow Up: DM follow up; rx refills HPI Jess James is a 85 year old male who presents today for DM follow up. DIABETES MELLITUS: Mr. James was last seen 1 year ago. Since our last visit he denies excessive thirst or increased frequency of urination, new or unusual visual symptoms, low sugar/hypoglycemic reactions, weight loss/gain, lightheadedness/dizzi ness and bowel changes/loose stools. He has avoided [...] 1 tablet by mouth daily with breakfast. multivit-min/FA/lycop en/lutein (CENTRUM SILVER MEN ORAL) Take by mouth. [...] 88 Resp 16 Ht 179.1 cm (5' 10.5") Wt 84.4 kg (186 lb) BMI 26.31 [...] - LDL goal of <100 - BMP (more content not included)... Normal [facility] OBSOLETEon 09-16-2020 OBSOLETE Refill (INTMWS) JESS JAMES ([id number]) 1935 M Date Time Provider Department 09/16/20 JOCE HERNANDEZ ([employer]KER) ANNABELLA During your visit today, we recorded the following information about you: Eileen Barajas Admin Sec 09/16/2020 11:17 AM Signed Patient has been identified by name and date of : Yes Last office visit in this department: 06/23/2019 RX INSTRUCTIONS: Patient aware RX will be sent to pharmacy. No need to notify patient. Patient phones requesting refills as follows: Pending Prescriptions Disp Refills METFORMIN ER 500 MG TABLET,EXTENDED RELEASE 24 HR 90 tablet 0 Sig: Take 1 tablet by mouth daily with breakfast. MICA: No Please review and advise. Eileen Barajas Admin Sec Susan Guerrero LPN 09/16/2020 12:44 PM Signed Patient has been identified by name and date of : Yes Patient phones for refill(s): Pending Prescriptions Disp Refills METFORMIN ER 500 MG TABLET,EXTENDED RELEASE 24 HR 90 tablet 0 Sig: Take 1 tablet by mouth daily with breakfast. MICA: No Date of last office visit in primary care: 09/04/2019 Last 2 Encounter Wt Readings: Date: Wt: 06/23/2019 85.7 kg (189 lb) 06/16/2019 87.5 kg (193 lb) Previous labs/tests for medication: Diabetes: Hemoglobin A1C (%) Date Value 06/04/2020 5.7 08/31/2019 5.9 Please advise. Thank you. Susan Guerrero LPN Appt made to see Joce WAYNE this Wednesday at 12:40 Allergies As of Date: 09/16/2020 Noted Allergy Reaction SHELLFISH DERIVED 12/12/2015 7 - Swelling Date Reviewed: 06/16/2019 Reviewed by: Rosa Chaudhry Ma - Fully Assessed Reason for Visit: Refill Request [94] Visit Diagnosis:Controlled type 2 diabetes mellitus with stage 3 chronic kidney disease, without long-term current use of insulin (HCC) [E11.22, N18.30] Order(s):metFORMIN ER (GLUCOPHAGE XR) 500 mg 24 hr tabletTake 1 tablet by mouth daily with breakfast.Disp: 90 tabletRfl: 0 Prescriptions as of 09/16/2020 Sig: METFORMIN ER 500 MG TABLET,EX* Take 1 tablet by mouth daily * CENTRUM SILVER MEN ORAL Take by mouth. POLYETHYLENE GLYCOL 3350 17 G* Take 17 g by mouth once daily* Problem List As Of Date 09/16/2020 Noted Resolved Closed fracture of part of fibula [S82.409A] 12/24/2015 Prescriptions ordered this encounter Disp Refills Start End METFORMIN ER 500 MG TABLET,EXTENDED * 90 t* 0 09/17/2020 Route: ORAL Sig: Take 1 tablet by mouth daily with breakfast. Medications Discontinued During This Encounter Prescriptions - metFORMIN ER (GLUCOPHAGE XR) 500 mg 24 hr tablet (Discontinued) Take 1 tablet by mouth daily with breakfast. Encounter Status:Closed by JENNIFER TRENT on 09/17/20 Normal [facility] Vital Signs Date Time Vital Sign Value Performing Clinician Jason dailey 12-24-2024 13:49-0400 Body temperature 98.5 [degF] Dr. Dyan Kyle MD Work Phone: [facility] 12-24-2024 13:49-0400 Diastolic blood pressure 60 mm[Hg] Dr. Dyan Kyle MD Work Phone: [facility] 12-24-2024 13:49-0400 Heart rate 83 /min Dr. Dyan Kyle MD Work Phone: [facility] 12-24-2024 13:49-0400 Respiratory rate 18 /min Dr. Dyan Kyle MD Work Phone: [facility] 12-24-2024 13:49-0400 SaO2% (BldA) [Mass fraction] 95 % Dr. Dyan Kyle MD Work Phone: [facility] 12-24-2024 13:49-0400 Systolic blood pressure 108 mm[Hg] Dr. Dyan Kyle MD Work Phone: [facility] 12-21-2024 16:07-0400 Body height 177.[address] Dyan Kyle MD Work Phone: [facility] 12-21-2024 16:07-0400 Body weight 81.[address] Dyan Kyle MD Work Phone: [facility] 12-19-2024 21:40-0400 Inhaled oxygen flow rate 2 L/min Dr. Dyan Kyle MD Work Phone: [facility] 12-19-2024 10:42-0400 Body mass index (BMI) [Ratio] 25.7 kg/m2 Dr. Dyan Kyle MD Work Phone: [facility] 12-18-2024 15:03-0400 Body temperature 97.8 [degF] Dr. Dyan Kyle MD Work Phone: [facility] 12-18-2024 15:03-0400 Diastolic blood pressure 87 mm[Hg] Dr. Dyan Kyle MD Work Phone: [facility] 12-18-2024 15:03-0400 Heart rate 59 /min Dr. Dyan Kyle MD Work Phone: [facility] 12-18-2024 15:03-0400 Respiratory rate 16 /min Dr. Dyan Kyle MD Work Phone: [facility] 12-18-2024 15:03-0400 SaO2% (BldA) [Mass fraction] 98 % Dr. Dyan Kyle MD Work Phone: [facility] 12-18-2024 15:03-0400 Systolic blood pressure 144 mm[Hg] Dr. Dyan Kyle MD Work Phone: [facility] 12-18-2024 11:52-0400 Body height 177.[address] Dyan Kyle MD Work Phone: [facility] 12-18-2024 11:52-0400 Body mass index (BMI) [Ratio] 26.4 kg/m2 Dr. Dyan Kyle MD Work Phone: [facility] 12-18-2024 11:52-0400 Body weight 83.[address] Dyan Kyle MD Work Phone: [facility] 11-07-2024 15:34-0400 Body temperature 97.5 [degF] Dr. Dyan Kyle MD Work Phone: [facility] 11-07-2024 15:34-0400 Diastolic blood pressure 74 mm[Hg] Dr. Dyan Kyle MD Work Phone: [facility] 11-07-2024 15:34-0400 Heart rate 49 /min Dr. Dyan Kyle MD Work Phone: [facility] 11-07-2024 15:34-0400 Respiratory rate 16 /min Dr. Dyan Kyle MD Work Phone: [facility] 11-07-2024 15:34-0400 SaO2% (BldA) [Mass fraction] 98 % Dr. Dyan Kyle MD Work Phone: [facility] 11-07-2024 15:34-0400 Systolic blood pressure 141 mm[Hg] Dr. Dyan Kyle MD Work Phone: [facility] 11-07-2024 14:56-0400 Body mass index (BMI) [Ratio] 25.5 kg/m2 Dr. Dyan Kyle MD Work Phone: [facility] 11-07-2024 14:56-0400 Body weight 80.[address] Dyan Kyle MD Work Phone: [facility] 11-07-2024 13:50-0400 Body height 177.[address] Dyan Kyle MD Work Phone: [facility] 11-07-2024 13:50-0400 Body mass index (BMI) [Ratio] 25.5 kg/m2 Dr. Dyan Kyle MD Work Phone: [facility] 11-07-2024 13:50-0400 Body temperature 97.9 [degF] Dr. Dyan Kyle MD Work Phone: [facility] 11-07-2024 13:50-0400 Body weight 80.[address] Dyan Kyle MD Work Phone: [facility] 11-07-2024 13:50-0400 Diastolic blood pressure 70 mm[Hg] Dr. Dyan Kyle MD Work Phone: [facility] 11-07-2024 13:50-0400 Heart rate 50 /min Dr. Dyan Kyle MD Work Phone: [facility] 11-07-2024 13:50-0400 Respiratory rate 16 /min Dr. Dyan Kyle MD Work Phone: [facility] 11-07-2024 13:50-0400 SaO2% (BldA) [Mass fraction] 94 % Dr. Dyan Kyle MD Work Phone: [facility] 11-07-2024 13:50-0400 Systolic blood pressure 130 mm[Hg] Dr. Dyan Kyle MD Work Phone: [facility] 10-25-2024 14:46-0400 Body height 177.[address] Dyan Kyle MD Work Phone: [facility] 10-25-2024 14:46-0400 Body mass index (BMI) [Ratio] 25.1 kg/m2 Dr. Dyan Kyle MD Work Phone: [facility] 10-25-2024 14:46-0400 Body temperature 97.7 [degF] Dr. Dyan Kyle MD Work Phone: [facility] 10-25-2024 14:46-0400 Body weight 79.[address] Dyan Kyle MD Work Phone: [facility] 10-25-2024 14:46-0400 Diastolic blood pressure 64 mm[Hg] Dr. Dyan Kyle MD Work Phone: [facility] 10-25-2024 14:46-0400 Heart rate 48 /min Dr. Dyan Kyle MD Work Phone: [facility] 10-25-2024 14:46-0400 Respiratory rate 16 /min Dr. Dyan Kyle MD Work Phone: [facility] 10-25-2024 14:46-0400 SaO2% (BldA) [Mass fraction] 97 % Dr. Dyan Kyle MD Work Phone: [facility] 10-25-2024 14:46-0400 Systolic blood pressure 110 mm[Hg] Dr. Dyan Kyle MD Work Phone: [facility] 09-26-2024 14:20-0400 Body mass index (BMI) [Ratio] 25.2 kg/m2 Dr. Dyan Kyle MD Work Phone: [facility] 09-26-2024 14:20-0400 Body temperature 97.3 [degF] Dr. Dyan Kyle MD Work Phone: [facility] 09-26-2024 14:20-0400 Body weight 79.[address] Dyan Kyle MD Work Phone: [facility] 09-26-2024 14:20-0400 Diastolic blood pressure 73 mm[Hg] Dr. Dyan Kyle MD Work Phone: [facility] 09-26-2024 14:20-0400 Heart rate 48 /min Dr. Dyan Kyle MD Work Phone: [facility] 09-26-2024 14:20-0400 Respiratory rate 16 /min Dr. Dyan Kyle MD Work Phone: [facility] 09-26-2024 14:20-0400 SaO2% (BldA) [Mass fraction] 93 % Dr. Dyan Kyle MD Work Phone: [facility] 09-26-2024 14:20-0400 Systolic blood pressure 121 mm[Hg] Dr. Dyan Kyle MD Work Phone: [facility] 09-12-2024 07:41-0400 Body mass index (BMI) [Ratio] 25.1 kg/m2 Dr. Dyan Kyle MD Work Phone: [facility] 09-12-2024 07:41-0400 Body weight 79.[address] Dyan Kyle MD Work Phone: [facility] 09-12-2024 07:41-0400 Diastolic blood pressure 89 mm[Hg] Dr. Dyan Kyle MD Work Phone: [facility] 09-12-2024 07:41-0400 Heart rate 59 /min Dr. Dyan Kyle MD Work Phone: [facility] 09-12-2024 07:41-0400 Respiratory rate 18 /min Dr. Dyan Kyle MD Work Phone: [facility] 09-12-2024 07:41-0400 SaO2% (BldA) [Mass fraction] 96 % Dr. Dyan Kyle MD Work Phone: [facility] 09-12-2024 07:41-0400 Systolic blood pressure 135 mm[Hg] Dr. Dyan Kyle MD Work Phone: [facility] 08-15-2024 17:04-0400 Diastolic blood pressure 55 mm[Hg] Dr. Dyan Kyle MD Work Phone: [facility] 08-15-2024 17:04-0400 Heart rate 48 /min Dr. Dyan Kyle MD Work Phone: [facility] 08-15-2024 17:04-0400 Respiratory rate 16 /min Dr. Dyan Kyle MD Work Phone: [facility] 08-15-2024 17:04-0400 Systolic blood pressure 140 mm[Hg] Dr. Dyan Kyle MD Work Phone: [facility] 08-15-2024 15:18-0400 Body mass index (BMI) [Ratio] 25.4 kg/m2 Dr. Dyan Kyle MD Work Phone: [facility] 08-15-2024 15:18-0400 Body temperature 97.7 [degF] Dr. Dyan Kyle MD Work Phone: [facility] 08-15-2024 15:18-0400 Body weight 80.[address] Dyan Kyle MD Work Phone: [facility] 08-15-2024 15:18-0400 Diastolic blood pressure 69 mm[Hg] Dr. Dyan Kyle MD Work Phone: [facility] 08-15-2024 15:18-0400 Heart rate 38 /min Dr. Dyan Kyle MD Work Phone: [facility] 08-15-2024 15:18-0400 Respiratory rate 16 /min Dr. Dyan Kyle MD Work Phone: [facility] 08-15-2024 15:18-0400 SaO2% (BldA) [Mass fraction] 94 % Dr. Dyan Kyle MD Work Phone: [facility] 08-15-2024 15:18-0400 Systolic blood pressure 132 mm[Hg] Dr. Dyan Kyle MD Work Phone: [facility] 07-04-2024 14:07-0500 Body height 177.[address] Dyan Kyle MD Work Phone: [facility] 07-04-2024 14:07-0500 Body mass index (BMI) [Ratio] 25.2 kg/m2 Dr. Dyan Kyle MD Work Phone: [facility] 07-04-2024 14:07-0500 Body temperature 97.6 [degF] Dr. Dyan Kyle MD Work Phone: [facility] 07-04-2024 14:07-0500 Body weight [address] Dyan Kyle MD Work Phone: [facility] 07-04-2024 14:07-0500 Diastolic blood pressure 82 mm[Hg] Dr. Dyan Kyle MD Work Phone: [facility] 07-04-2024 14:07-0500 Heart rate 53 /min Dr. Dyan Kyle MD Work Phone: [facility] 07-04-2024 14:07-0500 Respiratory rate 16 /min Dr. Dyan Kyle MD Work Phone: [facility] 07-04-2024 14:07-0500 SaO2% (BldA) [Mass fraction] 96 % Dr. Dyan Kyle MD Work Phone: [facility] 07-04-2024 14:07-0500 Systolic blood pressure 158 mm[Hg] Dr. Dyan Kyle MD Work Phone: [facility] 06-03-2024 18:38-0500 Body temperature 96.8 [degF] Dr. Dyan Kyle MD Work Phone: [facility] 06-03-2024 18:38-0500 Diastolic blood pressure 67 mm[Hg] Dr. Dyan Kyle MD Work Phone: [facility] 06-03-2024 18:38-0500 Heart rate 57 /min Dr. Dyan Kyle MD Work Phone: [facility] 06-03-2024 18:38-0500 Respiratory rate 18 /min Dr. Dyan Kyle MD Work Phone: [facility] 06-03-2024 18:38-0500 SaO2% (BldA) [Mass fraction] 96 % Dr. Dyan Kyle MD Work Phone: [facility] 06-03-2024 18:38-0500 Systolic blood pressure 143 mm[Hg] Dr. Dyan Kyle MD Work Phone: [facility] 05-23-2024 12:17-0500 Body temperature 96.3 [degF] Dr. Dyan Kyle MD Work Phone: [facility] 05-23-2024 12:17-0500 Diastolic blood pressure 64 mm[Hg] Dr. Dyan Kyle MD Work Phone: [facility] 05-23-2024 12:17-0500 Heart rate 51 /min Dr. Dyan Kyle MD Work Phone: [facility] 05-23-2024 12:17-0500 Respiratory rate 16 /min Dr. Dyan Kyle MD Work Phone: [facility] 05-23-2024 12:17-0500 SaO2% (BldA) [Mass fraction] 95 % Dr. Dyan Kyle MD Work Phone: [facility] 05-23-2024 12:17-0500 Systolic blood pressure 128 mm[Hg] Dr. Dyan Kyle MD Work Phone: [facility] 05-23-2024 11:23-0500 Body mass index (BMI) [Ratio] 25.2 kg/m2 Dr. Dyan Kyle MD Work Phone: [facility] 05-23-2024 10:32-0500 Body mass index (BMI) [Ratio] 25.2 kg/m2 Dr. Dyan Kyle MD Work Phone: [facility] 05-23-2024 10:32-0500 Body temperature 976 [degF] Dr. Dyan Kyle MD Work Phone: [facility] 05-23-2024 10:32-0500 Body weight 79.[address] Dyan Kyle MD Work Phone: [facility] 05-23-2024 10:32-0500 Diastolic blood pressure 66 mm[Hg] Dr. Dyan Kyle MD Work Phone: [facility] 05-23-2024 10:32-0500 Heart rate 53 /min Dr. Dyan Kyle MD Work Phone: [facility] 05-23-2024 10:32-0500 Respiratory rate 18 /min Dr. Dyan Kyle MD Work Phone: [facility] 05-23-2024 10:32-0500 SaO2% (BldA) [Mass fraction] 97 % Dr. Dyan Kyle MD Work Phone: [facility] 05-23-2024 10:32-0500 Systolic blood pressure 138 mm[Hg] Dr. Dyan Kyle MD Work Phone: [facility] 04-26-2024 16:45-0500 Body mass index (BMI) [Ratio] 17.8 kg/m2 Dr. Dyan Kyle MD Work Phone: [facility] 04-26-2024 16:45-0500 Body temperature 99.5 [degF] Dr. Dyan Kyle MD Work Phone: [facility] 04-26-2024 16:45-0500 Body weight 56.[address] Dyan Kyle MD Work Phone: [facility] 04-26-2024 16:45-0500 Diastolic blood pressure 78 mm[Hg] Dr. Dyan Kyle MD Work Phone: [facility] 04-26-2024 16:45-0500 Heart rate 48 /min Dr. Dyan Kyle MD Work Phone: [facility] 04-26-2024 16:45-0500 Respiratory rate 16 /min Dr. Dyan Kyle MD Work Phone: [facility] 04-26-2024 16:45-0500 SaO2% (BldA) [Mass fraction] 98 % Dr. Dyan Kyle MD Work Phone: [facility] 04-26-2024 16:45-0500 Systolic blood pressure 126 mm[Hg] Dr. Dyan Kyle MD Work Phone: [facility] 07-07-2023 10:40-0500 Body height 177.[address] Dyan Kyle Work Phone: [facility] 07-07-2023 10:40-0500 Body mass index (BMI) [Ratio] 25 kg/m2 Dr. Dyan Kyle Work Phone: [facility] 07-07-2023 10:40-0500 Body temperature 97.3 [degF] Dr. Dyan Kyle Work Phone: [facility] 07-07-2023 10:40-0500 Body weight 79.[address] Dyan Kyle Work Phone: [facility] 07-07-2023 10:40-0500 Diastolic blood pressure 80 mm[Hg] Dr. Dyan Kyle Work Phone: [facility] 07-07-2023 10:40-0500 Heart rate 92 /min Dr. Dyan Kyle Work Phone: [facility] 07-07-2023 10:40-0500 Respiratory rate 16 /min Dr. Dyan Kyle Work Phone: [facility] 07-07-2023 10:40-0500 SaO2% (BldA) [Mass fraction] 97 % Dr. Dyan Kyle Work Phone: [facility] 07-07-2023 10:40-0500 Systolic blood pressure 138 mm[Hg] Dr. Dyan Kyle Work Phone: [facility] 06-21-2023 16:21-0500 Body temperature 96.6 [degF] Dr. Dyan Kyle Work Phone: [facility] 06-21-2023 16:21-0500 Diastolic blood pressure 78 mm[Hg] Dr. Dyan Kyle Work Phone: [facility] 06-21-2023 16:21-0500 Heart rate 75 /min Dr. Dyan Kyle Work Phone: [facility] 06-21-2023 16:21-0500 Respiratory rate 16 /min Dr. Dyan Kyle Work Phone: [facility] 06-21-2023 16:21-0500 SaO2% (BldA) [Mass fraction] 99 % Dr. Dyan Kyle Work Phone: [facility] [facility]-2023 16:21-0500 Systolic blood pressure 143 mm[Hg] Dr. Dyan Kyle Work Phone: [facility] 06-21-2023 15:20-0500 Body height 177.[address] Dyan Kyle Work Phone: [facility] 06-21-2023 14:14-0500 Body mass index (BMI) [Ratio] 25.5 kg/m2 Dr. Dyan Kyle Work Phone: [facility] 06-21-2023 14:14-0500 Body temperature 97.8 [degF] Dr. Dyan Kyle Work Phone: [facility] 06-21-2023 14:14-0500 Body weight 80.[address] Dyan Kyle Work Phone: [facility] 06-21-2023 14:14-0500 Diastolic blood pressure 92 mm[Hg] Dr. Dyan Kyle Work Phone: [facility] 06-21-2023 14:14-0500 Heart rate 98 /min Dr. Dyan Kyle Work Phone: [facility] 06-21-2023 14:14-0500 Respiratory rate 15 /min Dr. Dyan Kyle Work Phone: [facility] 06-21-2023 14:14-0500 SaO2% (BldA) [Mass fraction] 97 % Dr. Dyan Kyle Work Phone: [facility] 06-21-2023 14:14-0500 Systolic blood pressure 169 mm[Hg] Dr. Dyan Kyle Work Phone: [facility] 05-10-2023 11:38-0500 Body height 177.[address] Dyan Kyle Work Phone: [facility] 05-10-2023 11:38-0500 Body mass index (BMI) [Ratio] 25.7 kg/m2 Dr. Dyan Kyle Work Phone: [facility] 05-10-2023 11:38-0500 Body temperature 98.3 [degF] Dr. Dyan Kyle Work Phone: [facility] 05-10-2023 11:38-0500 Body weight 81.[address] Dyan Kyle Work Phone: [facility] 05-10-2023 11:38-0500 Diastolic blood pressure 78 mm[Hg] Dr. Dyan Kyle Work Phone: [facility] 05-10-2023 11:38-0500 Heart rate 78 /min Dr. Dyan Kyle Work Phone: [facility] 05-10-2023 11:38-0500 Respiratory rate 18 /min Dr. Dyan Kyle Work Phone: [facility] 05-10-2023 11:38-0500 SaO2% (BldA) [Mass fraction] 97 % Dr. Dyan Kyle Work Phone: [facility] 05-10-2023 11:38-0500 Systolic blood pressure 140 mm[Hg] Dr. Dyan Kyle Work Phone: [facility] 03-29-2023 16:39-0500 Body temperature 97 [degF] Dr. Dyan Kyle Work Phone: [facility] 03-29-2023 16:39-0500 Diastolic blood pressure 68 mm[Hg] Dr. Dyan Kyle Work Phone: [facility] 03-29-2023 16:39-0500 Heart rate 67 /min Dr. Dyan Kyle Work Phone: [facility] 03-29-2023 16:39-0500 Respiratory rate 16 /min Dr. Dyan Kyle Work Phone: [facility] 03-29-2023 16:39-0500 SaO2% (BldA) [Mass fraction] 100 % Dr. Dyan Kyle Work Phone: [facility] 03-29-2023 16:39-0500 Systolic blood pressure 142 mm[Hg] Dr. Dyan Kyle Work Phone: [facility] 03-29-2023 15:37-0500 Body height 177.[address] Dyan Kyle Work Phone: [facility] 03-29-2023 15:37-0500 Body mass index (BMI) [Ratio] 25.3 kg/m2 Dr. Dyan Kyle Work Phone: [facility] 03-29-2023 15:37-0500 Body weight 80.[address] Dyan Kyle Work Phone: [facility] 03-29-2023 14:59-0500 Body mass index (BMI) [Ratio] 25.3 kg/m2 Dr. Dyan Kyle Work Phone: [facility] 03-29-2023 14:59-0500 Body temperature 97.5 [degF] Dr. Dyan Kyle Work Phone: [facility] 03-29-2023 14:59-0500 Body weight 80.[address] Dyan Kyle Work Phone: [facility] 03-29-2023 14:59-0500 Diastolic blood pressure 77 mm[Hg] Dr. Dyan Kyle Work Phone: [facility] 03-29-2023 14:59-0500 Heart rate 79 /min Dr. Dyan Kyle Work Phone: [facility] 03-29-2023 14:59-0500 Respiratory rate 18 /min Dr. Dyan Kyle Work Phone: [facility] 03-29-2023 14:59-0500 SaO2% (BldA) [Mass fraction] 97 % Dr. Dyan Kyle Work Phone: [facility] 03-29-2023 14:59-0500 Systolic blood pressure 151 mm[Hg] Dr. Dyan Kyle Work Phone: [facility] 03-24-2023 10:37-0400 Body mass index (BMI) [Ratio] 25.5 kg/m2 Dr. Dyan Kyle Work Phone: [facility] 03-24-2023 10:37-0400 Body temperature 97.9 [degF] Dr. Dyan Kyle Work Phone: [facility] 03-24-2023 10:37-0400 Body weight 80.[address] Dyan Kyle Work Phone: [facility] 03-24-2023 10:37-0400 Diastolic blood pressure 62 mm[Hg] Dr. Dyan Kyle Work Phone: [facility] 03-24-2023 10:37-0400 Heart rate 53 /min Dr. Dyan Kyle Work Phone: [facility] 03-24-2023 10:37-0400 Respiratory rate 16 /min Dr. Dyan Kyle Work Phone: [facility] 03-24-2023 10:37-0400 SaO2% (BldA) [Mass fraction] 93 % Dr. Dyan Kyle Work Phone: [facility] 03-24-2023 10:37-0400 Systolic blood pressure 120 mm[Hg] Dr. Dyan Kyle Work Phone: [facility] 02-24-2023 10:38-0400 Body height 177.[address] Dyan Kyle Work Phone: [facility] 02-24-2023 10:38-0400 Body mass index (BMI) [Ratio] 25.4 kg/m2 Dr. Dyan Kyle Work Phone: [facility] 02-24-2023 10:38-0400 Body temperature 97.5 [degF] Dr. Dyan Kyle Work Phone: [facility] 02-24-2023 10:38-0400 Body weight 80.[address] Dyan Kyle Work Phone: [facility] 02-24-2023 10:38-0400 Diastolic blood pressure 76 mm[Hg] Dr. Dyan Kyle Work Phone: [facility] 02-24-2023 10:38-0400 Heart rate 102 /min Dr. Dyan Kyle Work Phone: [facility] 02-24-2023 10:38-0400 Respiratory rate 16 /min Dr. Dyan Kyle Work Phone: [facility] 02-24-2023 10:38-0400 SaO2% (BldA) [Mass fraction] 94 % Dr. Dyan Kyle Work Phone: [facility] 02-24-2023 10:38-0400 Systolic blood pressure 134 mm[Hg] Dr. Dyan Kyle Work Phone: [facility] 02-17-2023 13:11-0400 Body height 177.[address] Dyan Kyle Work Phone: [facility] 02-17-2023 13:11-0400 Body mass index (BMI) [Ratio] 25.9 kg/m2 Dr. Dyan Kyle Work Phone: [facility] 02-17-2023 13:11-0400 Body temperature 97.4 [degF] Dr. Dyan Kyle Work Phone: [facility] 02-17-2023 13:11-0400 Body weight 81.[address] Dyan Kyle Work Phone: [facility] 02-17-2023 13:11-0400 Diastolic blood pressure 78 mm[Hg] Dr. Dyan Kyle Work Phone: [facility] 02-17-2023 13:11-0400 Heart rate 86 /min Dr. Dyan Kyle Work Phone: [facility] 02-17-2023 13:11-0400 Respiratory rate 18 /min Dr. Dyan Kyle Work Phone: [facility] 02-17-2023 13:11-0400 SaO2% (BldA) [Mass fraction] 96 % Dr. Dyan Kyle Work Phone: [facility] 02-17-2023 13:11-0400 Systolic blood pressure 126 mm[Hg] Dr. Dyan Kyle Work Phone: [facility] 02-14-2023 07:58-0400 SaO2% (BldA) [Mass fraction] 97 % Dr. Dyan Kyle Work Phone: [facility] 02-14-2023 07:40-0400 Body temperature 97.7 [degF] Dr. Dyan Kyle Work Phone: [facility] 02-14-2023 07:40-0400 Diastolic blood pressure 77 mm[Hg] Dr. Dyan Kyle Work Phone: [facility] 02-14-2023 07:40-0400 Heart rate 79 /min Dr. Dyan Kyle Work Phone: [facility] 02-14-2023 07:40-0400 Respiratory rate 16 /min Dr. Dyan Kyle Work Phone: [facility] 02-14-2023 07:40-0400 Systolic blood pressure 140 mm[Hg] Dr. Dyan Kyle Work Phone: [facility] 02-14-2023 06:00-0400 Body mass index (BMI) [Ratio] 25.7 kg/m2 Dr. Dyan Kyle Work Phone: [facility] 02-14-2023 06:00-0400 Body weight 81.[address] Dyan Kyle Work Phone: [facility] 02-14-2023 05:41-0400 Inhaled oxygen flow rate 2 L/min Dr. Dyan Kyle Work Phone: [facility] 02-12-2023 16:45-0400 Body height 177.[address] Dyan Kyle Work Phone: [facility] 02-12-2023 15:44-0400 Body temperature 98.3 [degF] Dr. Dyan Kyle Work Phone: [facility] 02-12-2023 15:44-0400 Diastolic blood pressure 76 mm[Hg] Dr. Dyan Kyle Work Phone: [facility] 02-12-2023 15:44-0400 Heart rate 85 /min Dr. Dyan Kyle Work Phone: [facility] 02-12-2023 15:44-0400 Respiratory rate 20 /min Dr. Dyan Kyle Work Phone: [facility] 02-12-2023 15:44-0400 SaO2% (BldA) [Mass fraction] 95 % Dr. Dyan Kyle Work Phone: [facility] 02-12-2023 15:44-0400 Systolic blood pressure 160 mm[Hg] Dr. Dyan Kyle Work Phone: [facility] 02-12-2023 12:54-0400 Body height 177.[address] Dyan Kyle Work Phone: [facility] 02-12-2023 12:54-0400 Body mass index (BMI) [Ratio] 25.5 kg/m2 Dr. Dyan Kyle Work Phone: [facility] 02-12-2023 12:54-0400 Body weight 80.[address] Dyan Kyle Work Phone: [facility] 02-12-2023 11:36-0400 Body mass index (BMI) [Ratio] 24 kg/m2 Dr. Dyan Kyle Work Phone: [facility] 02-12-2023 11:36-0400 Body temperature 99.6 [degF] Dr. Dyan Kyle Work Phone: [facility] 02-12-2023 11:36-0400 Body weight 80.[address] Dyan Kyle Work Phone: [facility] 02-12-2023 11:36-0400 Diastolic blood pressure 76 mm[Hg] Dr. Dyan Kyle Work Phone: [facility] 02-12-2023 11:36-0400 SaO2% (BldA) [Mass fraction] 97 % Dr. Dyan Kyle Work Phone: [facility] 02-12-2023 11:36-0400 Systolic blood pressure 124 mm[Hg] Dr. Dyan Kyle Work Phone: [facility] 01-20-2023 11:51-0400 Body mass index (BMI) [Ratio] 24 kg/m2 Dr. Dyan Kyle Work Phone: [facility] 01-20-2023 11:51-0400 Body temperature 97.1 [degF] Dr. Dyan Kyle Work Phone: [facility] 01-20-2023 11:51-0400 Body weight 80.[address] Dyan Kyle Work Phone: [facility] 01-20-2023 11:51-0400 Diastolic blood pressure 78 mm[Hg] Dr. Dyan Kyle Work Phone: [facility] 01-20-2023 11:51-0400 Heart rate 86 /min Dr. Dyan Kyle Work Phone: [facility] 01-20-2023 11:51-0400 Respiratory rate 16 /min Dr. Dyan Kyle Work Phone: [facility] 01-20-2023 11:51-0400 SaO2% (BldA) [Mass fraction] 98 % Dr. Dyan Kyle Work Phone: [facility] 01-20-2023 11:51-0400 Systolic blood pressure 142 mm[Hg] Dr. Dyan Kyle Work Phone: [facility] 11-27-2021 17:47-0400 Body height 182.88 cm [facility] Work Phone: 11-27-2021 17:47-0400 Body mass index (BMI) [Ratio] 24.9 kg/m2 [facility] Work Phone: 11-27-2021 17:47-0400 Body temperature 98 [degF] [facility] Work Phone: 11-27-2021 17:47-0400 Body weight 83.46 kg [facility] Work Phone: 11-27-2021 17:47-0400 Diastolic blood pressure 76 mm[Hg] [facility] Work Phone: 11-27-2021 17:47-0400 Heart rate 72 /min [facility] Work Phone: 11-27-2021 17:47-0400 Respiratory rate 14 /min [facility] Work Phone: 11-27-2021 17:47-0400 SaO2% (BldA) [Mass fraction] 98 % [facility] Work Phone: 11-27-2021 17:47-0400 Systolic blood pressure 142 mm[Hg] [facility] Work Phone: Encounters Encounter Date Encounter Type Care Provider Facility Start: 01-05-2025 End: 01-05-[address] Yadiel Bettencourt MD -[facility] Start: 01-05-2025 End: 01-05-[address] Dyan Kyle MD Work Phone: -[facility] Start: 01-02-2025 ambulatory Dyan Lay ty:[facility] Start: 01-02-[address] Arin Weston MD -[facility] Start: 12-26-2024 ambulatory Arin Lay ty:[facility] Start: 12-26-[address] Arin Weston MD -[facility] Start: 12-24-2024 Non-patient / Non-visit Dr. Radha Cope [facility] Work Phone: Start: 12-23-2024 Non-patient / Non-visit Dr. Radha Cope [facility] Work Phone: Start: 12-22-2024 Non-patient / Non-visit Dr. Radha Cope [facility] Work Phone: Start: 12-22-2024 [facility]: 12-21-2024 Non-patient / Non-visit Dr. Radha Cope [facility] Work Phone: Start: 12-20-2024 [facility]: 12-19-[facility] Start: 12-19-2024 Non-patient / Non-visit Dr. Radha Cope [facility] Work Phone: Start: 12-18-2024 ambulatory Amado Vick ility:[facility] Start: 12-18-2024 End: 12-24-2024 Evaluation and management of inpatient Dr. Amado Jean DO [facility] 3 Work Phone: Start: 11-07-[address] Lindsey Mcgee MD -[facility] Start: 11-07-2024 End: 11-07-[address] Carolina Mcgee MD -[facility] Work Phone: Start: 11-07-2024 End: 11-07-[address] Dyan Kyle MD Work Phone: [facility] Work Phone: Start: 10-25-2024 End: 10-25-[address] Dyan Kyle MD -[facility] Work Phone: Start: 10-25-2024 End: 10-25-[address] Dyan Kyle MD Work Phone: [facility] Work Phone: Start: 09-26-2024 End: 09-26-[address] Carolina Mcgee MD -[facility] Work Phone: Start: 09-26-2024 End: 09-26-2024 [facility] Start: 09-26-[address] Lindsey Mcgee MD -[facility] Start: 09-12-2024 End: 09-12-2024 Patient encounter procedure Bob Snyder CT -[facility] Work Phone: Start: 09-12-2024 End: 09-12-2024 ambulatory Bob Snyder Facility:[facility] Start: 08-15-2024 End: 08-15-[address] Carolina Mcgee MD -[facility] Work Phone: Start: 08-15-2024 End: 08-15-2024 [facility] Start: 08-07-2024 End: 08-07-[address] Dyan Kyle MD Work Phone: [facility] Work Phone: Start: 08-07-2024 End: 08-07-[address] Carolina Mcgee MD -Nuclear Medicine, [facility] Work Phone: Start: 08-07-2024 End: 08-07-2024 ambulatory Carolina Mcgee Facility:[facility] Start: 07-04-2024 End: 07-04-[address] Carolina Mcgee MD -[facility] Work Phone: Start: 07-04-2024 End: 07-04-2024 ambulatory [facility] Facility:[facility] Start: 07-04-[address] Lindsey Mcgee MD -[facility] Start: 06-03-2024 End: 06-03-2024 Emergency department patient visit Dr. Carl Anders DO -Emergency Department Work Phone: Start: 05-23-2024 End: 05-23-2024 Patient encounter procedure Rachael MONZON -[facility] Work Phone: Start: 05-23-2024 End: 05-23-2024 ambulatory Efewongbe Oleghe Facility:[facility] Start: 04-26-2024 End: 04-26-2024 ambulatory Efewongbe Oleghe Facility:[facility] Start: 04-26-2024 End: 04-26-[address] Dyan Kyle MD -[facility] Work Phone: Start: 04-10-2024 End: 04-10-2024 ambulatory Efewongbe Oleghe Facility:[facility] Start: 03-24-2024 ambulatory Efewongbe Oleghe Facili ty:[facility] Start: 03-23-2024 ambulatory Efewongbe Oleghe Facili ty:[facility] Start: 03-23-2024 End: 03-23-2024 ambulatory Efewongbe Oleghe Facility:[facility] Start: 03-03-2024 End: 03-03-2024 ambulatory Efewongbe Oleghe Facility:[facility] Start: 03-02-2024 End: 03-03-2024 [facility] Start: 02-28-2024 End: 02-28-2024 ambulatory Efewongbe Oleghe Facility:[facility] Start: 01-19-2024 End: 01-19-2024 ambulatory Efewongbe Oleghe Facility:[facility] Start: 01-17-2024 End: 01-17-2024 ambulatory Efewongbe Oleghe Facility:[facility] Start: 07-16-2023 Non-patient / Non-visit Dr. Pollo Kyle Work Phone: [facility] Start: 07-16-2023 End: 07-16-[address] Dyan Kyle Work Phone: [facility] Work Phone: Start: 07-16-2023 End: 07-16-[address] Dyan Kyle Work Phone: [facility]-Cardiovascular Services Work Phone: Start: 07-16-2023 ambulatory LONNIE AMADO Med[place] ty:[facility] Start: 07-13-2023 End: 07-13-[address] Dyan Kyle Work Phone: [facility] Work Phone: Start: 07-13-2023 End: 07-13-[address] Dyan Kyle Work Phone: [facility], [facility] Work Phone: Start: 07-12-2023 ambulatory DYAN Gomez lity:[facility] Start: 07-07-2023 End: 07-07-[address] Dyan Kyle Work Phone: [facility] Work Phone: Start: 06-21-2023 End: 06-21-[address] Dyan Kyle Work Phone: [facility] Work Phone: Start: 06-21-[address] Joaquin Kyle Work Phone: [facility] On[facility] Start: 05-12-2023 ambulatory DYAN Gomez lity:[facility] Start: 05-11-2023 End: 05-11-[address] Dyan Kyle Work Phone: [facility] Work Phone: Start: 05-11-2023 End: 05-11-[address] [facility] Work Phone: Start: 05-10-2023 End: 05-10-[address] Dyan Kyle Work Phone: [facility] Work Phone: Start: 05-10-[address] Joaquin Kyle Work Phone: [facility] Oncology Start: 04-12-2023 ambulatory EFEWONGBE B RAMIROGHE Faci lity:[facility] Start: 04-12-2023 End: 04-12-2023 Subsequent hospital visit by physician Lonnie Fischer MD Work Phone: Department of Radiology Comment on above: Arrived Start: 03-30-2023 End: 03-30-[address] Dyan Kyle Work Phone: [facility] Work Phone: Start: 03-30-2023 End: 03-30-[address] Dyan Kyle Work Phone: [facility] Work Phone: Start: 03-29-2023 End: 03-29-[address] Dyan Kyle Work Phone: [facility] Work Phone: Start: 03-29-[address] Joaquin Kyle Work Phone: [facility] Oncology Start: 03-24-2023 End: 03-24-[address] Dyan Kyle Work Phone: [facility] Work Phone: Start: 03-12-2023 ambulatory EFEWONGBE David SUNGHE Faci lity:[facility] Start: 03-12-2023 End: 03-12-2023 Subsequent hospital visit by physician Lonnie Fischer MD Work Phone: Department of Radiology Comment on above: Arrived Start: 03-12-[address] Joaquin Kyle Work Phone: [facility] Work Phone: Start: 03-12-2023 ambulatory DYAN Gomez lity:[facility] Start: 03-08-2023 End: 03-08-[address] Dyan Kyle Work Phone: [facility] Work Phone: Start: 03-08-2023 End: 03-08-[address] Dyan Kyle Work Phone: [facility]-Nuclear Medicine, [facility] Work Phone: Start: 03-04-2023 End: 03-04-[address] Dyan Kyle Work Phone: [facility] Work Phone: Start: 03-04-2023 End: 03-04-[address] Dyan Kyle Work Phone: [facility]-Occupational Therapy Work Phone: Start: 03-04-[address] Joaquin Kyle Work Phone: [facility]-Occupational Therapy Work Phone: Start: 02-26-2023 ambulatory DYAN Lay ty:[facility] Start: 02-24-[address] Joaquin Kyle Work Phone: [facility] Oncology Start: 02-24-2023 End: 02-24-[address] Dyan Kyle Work Phone: [facility] Work Phone: Start: 02-17-2023 End: 02-17-[address] Dyan Kyle Work Phone: [facility] Work Phone: Start: 02-16-2023 End: 02-16-[address] Dyan Kyle Work Phone: [facility] Work Phone: Start: 02-16-2023 End: 02-16-[address] Dyan Kyle Work Phone: [facility] Work Phone: Start: 02-14-2023 Non-patient / Non-visit Dr. Pollo Kyle Work Phone: [facility] Start: 02-13-2023 Non-patient / Non-visit Dr. Pollo Kyle Work Phone: [facility] Start: 02-13-2023 Non-patient / Non-visit Dr. Pollo Kyle Work Phone: [facility] Work Phone: Start: 02-12-2023 Non-patient / Non-visit Dr. Pollo Kyle Work Phone: [facility] Work Phone: Start: 02-12-2023 End: 02-14-2023 Evaluation and management of inpatient Dr. Dyan Kyle Work Phone: [facility]-Medical Surgical 3 Work Phone: Start: 02-12-2023 End: 02-12-[address] Dyan Kyle Work Phone: [facility] Work Phone: Start: 02-12-2023 End: 02-12-[address] Dyan Kyle Work Phone: [facility] Work Phone: Start: 01-21-2023 End: 01-21-[address] Dyan Kyle Work Phone: [facility] [place] Start: 01-20-2023 End: 01-20-[address] Dyan Kyle Work Phone: [facility] Work Phone: Start: 12-10-2021 Refill Joce Roach PRN.CNP Work Phone: Internal Medicine [place] Comment on above: Refill Request Start: 11-28-2021 End: 11-28-2021 Patient encounter procedure Brenda [facility] [place] Start: 11-27-2021 End: 11-27-2021 Patient encounter procedure [facility] Internal Medicine Start: 11-13-2021 Non-patient / Non-visit [facility] Start: 10-16-2021 Non-patient / Non-visit [facility] Internal Medicine Procedures Date Procedure Procedure Detail Performing Clinician Start: 01-02-2025 Vitamin D, 25-hydrox y measurement Dr. Dyan Kyle MD Work Phone: Comment on above: Vitamin D StatusDefi ciency: <20 ng/mL (50nmol/L)Insufficiency: 20-30 ng/mL (50-75 nmol/L)Sufficiency: 30-100 ng/mL (75-250 nmol/L)Toxicity: >100 ng/mL (>250 nmol/L) Start: 12-24-[address] Dyan Kyle MD Work Phone: Start: 12-19-2024 Plain x-ray of pelvi s and lower extremity Dr. Dyan Kyle MD Work Phone: Start: 12-19-2024 Prosthetic uncemente d hemiarthroplasty of hip Dr. Dyan Kyle MD Work Phone: Start: 12-18-2024 Urnls dip stick/tabl et reagent auto microscopy Dr. Dyan Kyle MD Work Phone: Start: 12-18-[address] Dyan Kyle MD Work Phone: Start: 12-18-2024 Plain chest X-ray Dr. Dayanara Kyle MD Work Phone: Start: 12-18-2024 Plain x-ray of pelvi s and lower extremity Dr. Dyan Kyle MD Work Phone: Start: 11-07-2024 Assay of prostate sp ecific antigen total Dr. Dyan Kyle MD Work Phone: Comment on above: This test was perfor med using the [employer] tPSA method. Measured values of a patient sample can vary depending on the testing procedure used. PSA values determined on patient samples by different testing procedures cannot be used interchangeably. If there is a change in PSA assays while monitoring therapy, sequential testing should be performed to confirm baseline values. Start: 11-07-[address] Dyan Kyle MD Work Phone: Start: 09-26-2024 Assay of prostate sp ecific antigen total Dr. Dyan Kyle MD Work Phone: Comment on above: This test was perfor med using the [employer] tPSA method. Measured values of a patient sample can vary depending on the testing procedure used. PSA values determined on patient samples by different testing procedures cannot be used interchangeably. If there is a change in PSA assays while monitoring therapy, sequential testing should be performed to confirm baseline values. Start: 09-26-[address] Dyan Kyle MD Work Phone: Start: 08-07-2024 Radionuclide whole b juan r bone study Dr. Dyan Kyle MD Work Phone: Start: 07-04-2024 Measurement of renal function Dr. Dyan Kyle MD Work Phone: Comment on above: GFR Calc Start: 07-13-2023 Plain x-ray of humerus Dr. Dyan Kyle Work Phone: Start: 05-11-2023 Plain x-ray of humerus Dr. Dyan Kyle Work Phone: Start: 04-12-2023 Radex humerus minimu m 2 views Lonnie Fischer MD Work Phone: Start: 03-30-2023 Plain X-ray of femur Dr Martina Kyle Work Phone: Start: 03-12-2023 Radex humerus minimu m 2 views Daniel Carlos MD Work Phone: Start: 03-08-2023 Radionuclide whole b juan r bone study Dr. Dyan Kyle Work Phone: Start: 02-16-2023 Computed tomography of abdomen and pelvis with intravenous contrast Dr. Dyan Kyle Work Phone: Start: 02-13-2023 MRI of upper limb Dr. Dayanara Kyle Work Phone: Start: 02-12-2023 Plain x-ray of humerus Dr. Dyan Kyle Work Phone: Start: 02-12-2023 X-ray of radius and ulna Dr. Dyan Kyle Work Phone: Start: 02-12-2023 Plain x-ray of elbow Dr Martina Kyle Work Phone: Start: 02-12-2023 Plain x-ray of hand Dr. Dyan Kyle Work Phone: Plan of Treatment Date Care Activity Detail Author Start: 01-05-2025 Plain X-ray of hip Hip uni 4+ views with Pelvis [facility] Start: 01-05-2025 XR Hip Views [facility] Start: 01-05-2025 Plain x-ray of pelvis and lower extremity HIP, UNI W/ Pelvis 2-3 Views [facility] Start: 01-05-2025 XR Pelvis and Hip Views [facility] Start: 12-24-2024 Patient discharge [facility] Start: 12-19-2024 End: 12-19-2024 [facility] Start: 12-19-2024 Ambulation therapy management [facility] Start: 12-19-2024 Application of device [facility] Start: 12-19-2024 Exercises [facility] Start: 12-19-2024 Following clinical pathway protocol [facility] Start: 12-19-2024 Introduction of urinary catheter [facility] Start: 12-19-2024 Neurovascular assessment [facility] Start: 12-19-2024 Patient education [facility] Start: 12-19-2024 Provision of activity privileges [facility] Start: 12-19-2024 Referral to occupational therapist [facility] Start: 12-19-2024 Referral to service [facility] Start: 12-19-2024 Vital signs measurements [facility] Start: 12-19-2024 Wound care [facility] Start: 12-18-2024 Application of intermittent pneumatic compression device [facility] Start: 12-18-2024 Assessment of risk of venous thromboembolism [facility] Start: 12-18-2024 Consultation [facility] Start: 12-18-2024 Insertion of catheter into peripheral vein [facility] Start: 12-18-2024 Measuring intake and output [facility] Start: 12-18-2024 Providing care according to standard [facility] Start: 12-18-2024 Provision of activity privileges [facility] Start: 12-18-2024 Referral to occupational therapist [facility] Start: 12-18-2024 Referral to service [facility] Start: 12-18-2024 [facility] Start: 12-18-2024 Following clinical pathway protocol [facility] Start: 12-18-2024 Verification routine [facility] Start: 12-18-2024 Hospital admission, emergency, from emergency room, medical nature [facility] Start: 12-18-2024 Admission procedure [facility] Start: 12-18-2024 Hepatic function panel [facility] Start: 12-18-2024 [facility] Start: 12-18-2024 Consultation [facility] Start: 12-18-2024 [facility] Start: 11-07-2024 [facility] Start: 06-03-2024 [facility] Start: 11-23-2023 DIABETES SCREEN DIABETES SCREEN [facility] Start: 05-12-2023 End: 05-12-2023 Patient encounter procedure [facility] Start: 04-12-2023 End: 04-12-2023 Patient encounter procedure [facility] Start: 03-24-2023 Evaluation of diagnostic study results [facility] Start: 02-24-2023 Patient referral [facility] Work Phone: Start: 02-17-2023 Patient referral [facility] Work Phone: Start: 02-14-2023 Patient discharge [facility] Start: 02-13-2023 Bacterial nucleic acid assay [facility] Start: 02-12-2023 Application of ice collar, cap or bag [facility] Start: 02-12-2023 Assessment of risk of venous thromboembolism [facility] Start: 02-12-2023 Consultation [facility] Start: 02-12-2023 Elevation of affected extremity [facility] Start: 02-12-2023 Fall prevention [facility] Start: 02-12-2023 Inhalation therapy procedure [facility] Start: 02-12-2023 Insertion of catheter into peripheral vein [facility] Start: 02-12-2023 Introduction of urinary catheter [facility] Start: 02-12-2023 Measuring intake and output [facility] Start: 02-12-2023 Methicillin resistant Staphylococcus aureus screening test [facility] Start: 02-12-2023 Providing care according to standard [facility] Start: 02-12-2023 Provision of activity privileges [facility] Start: 02-12-2023 Referral to occupational therapist [facility] Start: 02-12-2023 Referral to service [facility] Start: 02-12-2023 [facility] Start: 02-12-2023 Following clinical pathway protocol [facility] Start: 02-12-2023 Verification routine [facility] Start: 02-12-2023 Admission procedure [facility] Start: 02-12-2023 [facility] Start: 01-22-2023 COVID-19 VACCINE ( season) COVID-19 VACCINE ( season) [facility] Start: 01-22-2023 Influenza vaccination INFLUENZA VACCINE (#1) [facility] Start: 01-20-2023 Patient referral [facility] Work Phone: Start: 01-22-2022 Influenza vaccination INFLUENZA (#1) [facility] Start: 11-27-2021 Patient referral [facility] Work Phone: Start: 05-24-2021 ADVANCE DIRECTIVE DISCUSSION ADVANCE DIRECTIVE DISCUSSION [facility] Start: 02-18-2021 COVID-19 VACCINE (3 - Booster for Moderna series) COVID-19 VACCINE (3 - Booster for Moderna series) [facility] Start: 02-07-2021 PNEUMOCOCCAL: 65+ (2 - PPSV23 or PCV20) PNEUMOCOCCAL: 65+ (2 - PPSV23 or PCV20) [facility] Start: 1982 Screening for malignant neoplasm of colon COLORECTAL CANCER SCREENING DISCUSSION [facility] Start: 1956 Third diphtheria, tetanus and acellular pertussis (DTaP) vaccination TDAP (ADULT) [facility] Start: 1956 Urine microalbumin profile DTAP,TDAP,TD (1 - Tdap) [facility] Start: 1937 Tetanus vaccination TETANUS [facility] Alanine aminotransfe rase [Enzymatic activity/volume] in Serum or Plasma [facility] Albumin [Mass/volume ] in Serum or Plasma [facility] Alkaline phosphatase [Enzymatic activity/volume] in Serum or Plasma [facility] Bilirubin measuremen t, urine [facility] Bilirubin, total measurement [facility] Bilirubin.direct [Mass/volume] in Serum or Plasma [facility] CBC W Auto Different ial panel - Blood [facility] CBC W Auto Different ial panel - Blood [facility] CBC W Auto Different ial panel - Blood [facility] CBC W Auto Different ial panel - Blood [facility] CBC W Auto Different ial panel - Blood [facility] CBC W Auto Different ial panel - Blood [facility] metabo lic 1999 panel - Serum or Plasma [facility] metabo [facility] 1999 panel - Serum or Plasma [facility] 1999 panel - Serum or Plasma [facility] Hemoglobin [Presence ] in Urine [facility] Hemoglobin A1c/Hemoglobin.total in Blood [facility] Hepatic function panel [facility] Lipid 1995 panel - S alfonso or Plasma [facility] Measurement of keton es in urine using dipstick [facility] Microscopic urinalysis [facility] Natriuretic peptide. B prohormone N-Terminal [Mass/volume] in Serum or Plasma [facility] Patient Education ED Esophageal Foreign Body, Resolved [facility] Work Phone: Patient referral [facility] Work Phone: pH of Urine [facility] Prostate specific an tigen measurement [facility] Prostate specific an tigen measurement [facility] Prostate specific an tigen measurement [facility] Prostate specific an tigen measurement [facility] Prostate specific an tigen measurement [facility] Prostate specific an tigen measurement [facility] Specific gravity of Urine [facility] Total protein measurement [facility] Urine blood test [facility] Urine dipstick for glucose [facility] Urine dipstick for leukocyte esterase [facility] Urine dipstick for nitrite [facility] Urine dipstick for protein [facility] Urine examination [facility] Urine microscopy: epithelial cells [facility] Urine Microscopy: wh ite cells [facility] Urobilinogen [Presen ce] in Urine [facility] Immunizations Immunization Date Immunization Notes Care Provider Garrett williamson 03-03-2024 Seasonal trivalent influenza vaccine, adjuvanted, preservative free Dr. Dyan Kyle MD Work Phone: [facility] 07-07-2023 influenza, injectabl e, quadrivalent, preservative free Dr. Dyan Kyle Work Phone: [facility] 04-06-2022 influenza, injectabl e, quadrivalent, preservative free Dr. Dyan Kyle Work Phone: [facility] 04-06-2022 influenza virus vaccine, unspecified formulation Lonnie Fischer MD Work Phone: [facility] 09-18-2020 COVID-19 vaccine, fu ll dose (MODERNA) Joce Hernandez APRN.[employer] Work Phone: [facility] 08-20-2020 COVID-19 vaccine, fu ll dose (MODERNA) Joce Hernandez APRN.[facility] Work Phone: [facility] Work Phone: 04-11-2020 zoster vaccine recombinant Joce Hernandez APRN.[employer] Work Phone: [facility] Work Phone: 02-08-2020 influenza, injectabl e, quadrivalent, preservative free Joce Hernandez APRN.[employer] Work Phone: [facility] Work Phone: 02-08-2020 pneumococcal conjuga te vaccine, 13 valent Joce Hernandez APRN.[facility] Work Phone: [facility] Work Phone: 02-08-2020 zoster vaccine recombinant Joce Hernandez APRN.[facility] Work Phone: [facility] Work Phone: Payers Date Payer Category Payer Self-pay [id number] 2021 Medicare [place] MED[place] PPO [id number] 2021-Present [address] [place] [address] [id number] 2015 Private Health Insurance 101 [id number] 2014 Medicare AETNA MEDICARE A ETNA MEDICARE PPO [id number] 2014-Present [phone] [facility] [id number] [place] [address] PPO [id number] 1937 Unknown [id number] 2.16.840.1.715557.3.579.2.5 94 1937 Unknown [id number] 2.16.840.1.225180.3.579.2.5 94 1937 Unknown [id number] 2.16.840.1.011144.3.579.2.5 94 1937 Unknown [id number] 2.16.840.1.164055.3.579.2.5 94 1937 Unknown [id number] 2.16.840.1.340636.3.579.2.5 94 1937 Unknown [id number] 2.16.840.1.409343.3.579.2.5 94 1937 Unknown [id number] 2.16.840.1.504880.3.579.2.5 94 1937 Unknown [id number] 2.16.840.1.218113.3.579.2.5 94 Medicare [id number] Unknown [id number] 2.16.840.1.434129.3.579.2.4 62 Unknown [id number] 2.16.840.1.680093.3.579.2.4 62 Unknown [id number] 2.16.840.1.508713.3.579.2.4 62 Unknown [id number] 2.16.840.1.175488.3.579.2.4 62 Unknown [id number] 2.16.840.1.313361.3.579.2.4 62 Unknown [id number] 2.16.840.1.594295.3.579.2.4 62 Unknown [id number] 2.16.840.1.891455.3.579.2.4 62 Unknown [id number] 2.16.840.1.120714.3.579.2.4 62 Unknown [id number] 2.16.840.1.460542.3.579.2.4 62 Unknown [id number] 2.16.840.1.065079.3.579.2.4 62 Unknown [id number] 2.16.840.1.748182.3.579.2.4 62 Unknown [id number] 2.16.840.1.220203.3.579.2.4 62 Unknown [id number] 2.16.840.1.179569.3.579.2.4 62 Unknown [id number] 2.16.840.1.553531.3.579.2.4 62 Unknown [id number] 2.16.840.1.096893.3.579.2.4 62 Unknown [id number] 2.16.840.1.853415.3.579.2.4 62 Unknown [id number] 2.16.840.1.075717.3.579.2.4 62 Unknown [id number] 2.16.840.1.213869.3.579.2.4 62 Unknown [id number] 2.16.840.1.820946.3.579.2.4 62 Unknown [id number] 2.16.840.1.900714.3.579.2.4 62 Unknown [id number] 2.16.840.1.379887.3.579.2.4 62 Unknown [id number] 2.16.840.1.917754.3.579.2.4 62 Unknown [id number] 2.16.840.1.639214.3.579.2.4 62 Unknown [id number] 2.16.840.1.028427.3.579.2.4 62 Unknown [id number] 2.16.840.1.061113.3.579.2.4 62 Unknown [id number] 2.16.840.1.097053.3.579.2.4 62 Unknown [id number] 2.16.840.1.447783.3.579.2.4 62 Unknown [id number] 2.16.840.1.841326.3.579.2.4 62 Unknown [id number] 2.16.840.1.457451.3.579.2.4 62 Unknown [id number] 2.16.840.1.820722.3.579.2.4 62 Unknown [id number] 2.16.840.1.917277.3.579.2.4 62 Unknown [id number] 2.16.840.1.369030.3.579.2.4 62 Unknown [id number] 2.16.840.1.108584.3.579.2.4 62 Unknown [id number] 2.16.840.1.304443.3.579.2.4 62 Unknown [id number] 2.16.840.1.878351.3.579.2.4 62 Unknown [id number] 2.16.840.1.626527.3.579.2.4 62 Social History Date Type Detail Facility Start: 11-27-2021 End: 07-07-2023 Tobacco smoking status MNIS Unknown if ever smoked [facility] Start: 1935 Sex Assigned At Male W [facility] Start: 12-24-2015 Tobacco smoking stat us MNIS Ex-smoker [facility] Work Phone: History of tobacco use Cigarette Smoker [facility] Work Phone: Start: 12-24-2015 End: 03-12-2023 Tobacco use and exposure Smokeless tobacco non-user [facility] Work Phone: Start: 11-28-2020 Alcohol intake Current non-dr staple side laster of alcohol (finding) [facility] Start: 1935 Sex Assigned At Not on file [facility] Start: 03-12-2023 End: 12-18-2024 Tobacco smoking status NHIS Never smoked tobacco [facility] Start: 03-12-2023 End: 04-12-2023 Alcohol intake Ex-drinker (finding) [facility] Start: 03-12-2023 End: 04-12-2023 History of Social function [facility] Start: 03-12-2023 End: 04-12-2023 Tobacco use panel [facility] Adolescent depressio n screening assessment 2 [facility] Start: 08-14-2024 Sex Male (finding) [facility] Medical Equipment Procedure Code Equipment Code Equipment Origin al Text Equipment Identifier Dates Primary uncemented hemiarthroplasty of hip KIT,FEMORAL BONE CEMENT PREP FDA Start: 12-19-2024 Primary uncemented hemiarthroplasty of hip Metallic femoral head prosthesis ()[id number] FDA Start: 12-19-2024 Primary uncemented hemiarthroplasty of hip ([id number]) Orthopaedic cement spacer ()[id number] FDA Start: 12-19-2024 Primary uncemented hemiarthroplasty of hip Bipolar femoral head outer component, hemiarthroplasty ()[id number] FDA Start: 12-19-2024 Primary uncemented hemiarthroplasty of hip Uncoated hip femur prosthesis, modular ()[id number] FDA Start: 12-19-2024 Primary uncemented hemiarthroplasty of hip Orthopaedic cement, antimicrobial ()[id number] FDA Start: 12-19-2024 Primary uncemented hemiarthroplasty of hip KIT,FEMORAL BONE CEMENT PREP FDA Start: 12-19-2024 Primary uncemented hemiarthroplasty of hip KIT,FEMORAL BONE CEMENT PREP FDA Start: 12-19-2024 Goals Date Patient Goal Desired Activity /State Functional Status Date Assessment Result Facility 12-24-2024 Functional status Bathroom Privilege [facility] Work Phone: 02-14-2023 Functional status Activity Abili ty Standby Assist;With Assist of 1 [facility] Work Phone: 02-14-2023 Functional status Patient Activity Ambula sandoval [facility] Work Phone: 02-13-2023 Functional status Assistive Rossana lily Straight Cane [facility] Work Phone: Mental Status Date Assessment Result Facility 12-24-2024 Cognitive function Voice/Name [facility] Work Phone: 11-07-2024 Cognitive function Voice/Name [facility] Work Phone: 08-15-2024 Cognitive function Awake;Alert;A ppropriate;Loude[employer]o [employer] [facility] Work Phone: 06-03-2024 Cognitive function Level Of Cons ciousness Awake;Alert;Appropriate;Follo [facility] Work Phone: 05-23-2024 Cognitive function Voice/Name [facility] Work Phone: 06-21-2023 Cognitive function Awake;Alert;A ppropriate;[employer] Work Phone: 03-29-2023 Cognitive function Awake;Alert;A ppropriate;[facility] Work Phone: 02-14-2023 Cognitive function Voice/Name [facility] Work Phone: Clinical Notes 09-20-2020 to 12-24-2024 Note Date & Type Note Facility 12-24-2024 Hospital Discharg e instructions Additional Instructions 1. Patient should have a repeat BMP and CBC in 1 week 2. Weightbearing as tolerated right lower extremity 3. DVT prophylaxis with Eliquis until instructed to stop by orthopedic surgery 4. Posterior hip precautions Date of Discharge: 12/24/24 [facility] Work Phone: 12-24-2024 Discharge summary [facility] 12-24-2024 Discharge summary [facility] 12-24-2024 Note [facility] 12-23-2024 Progress note Note Date/Time December 23, 2024 3:40pm [facility] Medical Records Department [address] [place] [address] Progress Note - Hospitalist 12/23/24 1536 MR#: [id number] Acct: [id number] Name: JESS JAMES Rep #:[id number] : 1935 89 From: Radha Cope DO PCP: Dr. Dyan Kyle MD Status:A DM IN Location: MS3 [id number] Reason for Visit Chief Complaint: Fall with right hip pain Subjective Subjective Patient is having bowel movements. Does not complain of any considerable pain at this time. No complaints. Objective Data Objective Data Vital Signs: Vital Signs Temp Pulse Resp BP Pulse Ox O2 Del Method O2 Flow Rate 98.0 F 74 16 114/89 H 96 Room Air 2 12/23/24 08:44 12/23/24 08:44 12/23/24 08:44 12/23/24 08:44 12/23/24 08:44 12/23/24 08:44 12/19/24 21:40 Oxygen Flow Rate (L/min) 2 Oxygen Delivery Method Room Air Weight: 81.238 kg Body Mass Index (BMI) 25.7 Intake & Output: Intake and Output for Last 24 Hours 12/21/24 12/22/24 12/23/24 23:59 23:59 23:59 Intake Total 1190 / 1190 150 / 150 150 / 150 Output Total 600 / 600 700 / 700 350 / 350 Balance 590 / 590 -550 / -550 -200 / -200 Lab / Micro Data 12/22/24 12:27 12/22/24 06:11 Physical Exam Const alert, oriented x3, no apparent distress, average body habitus and well nourished Constitutional Narrative: Elderly, white male, sitting up in a chair at the bedside, appears comfortable, nontoxic General Appearance: cooperative and comfortable HEENT normocephalic, head/scalp atraumatic and moist oral mucous membranes; Negative for hearing grossly normal bilaterally HEENT Narrative: Moderate to severe hearing loss Neuro moves all extremities and no focal motor deficits Neuro Narrative: Unable to move right lower extremity moves all other extremities without difficulty Speech: speech normal Psych mental status grossly normal and affect normal Psych Narrative: Very pleasant, eye contact is good and patient interacts appropriately Assessment & Plan Assessment/Plan (1) Fracture of femoral neck, right, closed: QUALIFIERS: Encounter type: initial encounter Qualified Code(s): S72.001A - Fracture of unspecified part of neck of right femur, initial encounter for closed fracture PLAN: Plan Right femoral neck fracture-suspect pathological fracture with metastatic prostate cancer - Continue aspirin - Postop day 4 status post right hip cemented hemiarthroplasty with Dr. Hamilton - Continue scheduled Tylenol - Continue as needed oxycodone - continue DVT prophylaxis per primary with Eliquis 2.5 mg p.o. twice daily - PT/OT following - Social work/case management following and working on placement -[facility] once approved by insurance Mild anemia -Hemoglobin is stabilized Thrombocytopenia -Thrombocytopenia is stable - Repeat lab in a.m. Chronic HFrEF - Most recent echocardiogram from 03/12/2024 shows an EF of 35% -Continue Jardiance we will continue to hold Lasix Aldactone, Entresto and beta-keisha and monitor blood pressure for appropriateness of reinitiation - Monitor closely in the perioperative period for volume overload Essential hypertension/hyperlipidemia -Continue to hold home beta-keisha/Lasix/Aldactone/Entresto - Continue home statin - Continue home aspirin Chronic LBBB - last left heart catheterization 11/23/2023 demonstrating 60% smooth stenosis in the mid RCA and mild luminal irregularities in the distal RCA, circumflex artery, LAD - monitor post-op 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 Mcgee - bone supportive therapy with zoledronic acid every 12 weeks - monitor for post-op retention DM-2 -Continue Jardiance - Last a1c 5.7 on 10/25/24 - Fasting blood sugar 81 DVT Prophylaxis - SCD's -Eliquis 2.5 mg p.o. twice daily Code Status -FULL CODE Charges/Coding Visit Charges Inpatient E&M: 35573 Subs Hosp L1 Date medically ready for discharge: 12/22/24 Reason for DC delay: Precert pending from insurance 12/23/24 1540 <Electronically signed by Radha Cope DO> Cosigner Signature (if applicable): CC: ~ Signed [facility] Work Phone: 1(820) 440-820708-02-2025 Progress note [facility] Medical Records Department [address] [place] [address] Progress Note - Hospitalist 12/23/24 1536 MR#: [id number] Acct: [id number] Name: JESS JAMES Rep #:[id number] : 1935 89 From: Radha Cope DO PCP: Dr. Dyan Kyle MD Status:A DM IN Location: MS3 BT802-0 Reason for Visit Chief Complaint: Fall with right hip pain Subjective Subjective Patient is having bowel movements. Does not complain of any considerable pain at this time. No complaints. Objective Data Objective Data Vital Signs: Vital Signs Temp Pulse Resp BP Pulse Ox O2 Del Method O2 Flow Rate 98.0 F 74 16 114/89 H 96 Room Air 2 12/23/24 08:44 12/23/24 08:44 12/23/24 08:44 12/23/24 08:44 12/23/24 08:44 12/23/24 08:44 12/19/24 21:40 Oxygen Flow Rate (L/min) 2 Oxygen Delivery Method Room Air Weight: 81.238 kg Body Mass Index (BMI) 25.7 Intake & Output: Intake and Output for Last 24 Hours 12/21/24 12/22/24 12/23/24 23:59 23:59 23:59 Intake Total 1190 / 1190 150 / 150 150 / 150 Output Total 600 / 600 700 / 700 350 / 350 Balance 590 / 590 -550 / -550 -200 / -200 Lab / Micro Data 12/22/24 12:27 12/22/24 06:11 Physical Exam Const alert, oriented x3, no apparent distress, average body habitus and well nourished Constitutional Narrative: Elderly, white male, sitting up in a chair at the bedside, appears comfortable, nontoxic General Appearance: cooperative and comfortable HEENT normocephalic, head/scalp atraumatic and moist oral mucous membranes; Negative for hearing grossly normal bilaterally HEENT Narrative: Moderate to severe hearing loss Neuro moves all extremities and no focal motor deficits Neuro Narrative: Unable to move right lower extremity moves all other extremities without difficulty Speech: speech normal Psych mental status grossly normal and affect normal Psych Narrative: Very pleasant, eye contact is good and patient interacts appropriately Assessment & Plan Assessment/Plan (1) Fracture of femoral neck, right, closed: QUALIFIERS: Encounter type: initial encounter Qualified Code(s): S72.001A - Fracture of unspecifiedpart of neck of right femur, initial encounter for closed fracture PLAN: Plan Right femoral neck fracture-suspect pathological fracture with metastatic prostate cancer - Continue aspirin - Postop day 4 status post right hip cemented hemiarthroplasty with Dr. Hamilton - Continue scheduled Tylenol - Continue as needed oxycodone - continue DVT prophylaxis per primary with Eliquis 2.5 mg p.o. twice daily - PT/OT following - Social work/case management following and working on placement -[facility] once approved by insurance Mild anemia -Hemoglobin is stabilized Thrombocytopenia -Thrombocytopenia is stable - Repeat lab in a.m. Chronic HFrEF - Most recent echocardiogram from 03/12/2024 shows an EF of 35% -Continue Jardiance we will continue to hold Lasix Aldactone, Entresto and beta- keisha and monitorblood pressure for appropriateness of reinitiation - Monitor closely in the perioperative period for volume overload Essential hypertension/hyperlipidemia -Continue to hold home beta-keisha/Lasix/Aldactone/Entresto - Continue home statin - Continue home aspirin Chronic LBBB - last left heart catheterization 11/23/2023 demonstrating 60% smooth stenosis in the mid RCA and mild luminal irregularities in the distal RCA, circumflex artery, LAD - monitor post-op 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 Mcgee - bone supportive therapy with zoledronic acid every 12 weeks - monitor for post-op retention DM-2 -Continue Jardiance - Last a1c 5.7 on 10/25/24 - Fasting blood sugar 81 DVT Prophylaxis - SCD's -Eliquis 2.5 mg p.o. twice daily Code Status -FULL CODE Charges/Coding Visit Charges Inpatient E&M: 06535 Subs Hosp L1 Date medically ready for discharge: 12/22/24 Reason for DC delay: Precert pending from insurance 12/23/24 1540 Cosigner Signature (if applicable): CC: ~ Signed [facility]08-01-2025 Progress note Author Radha Cope [facility] Note Date/Time December 22, 2024 4:4 3pm [facility] Medical Records Department [address] [place] [address] Progress Note - Hospitalist 12/22/24 1638 MR#: [id number] Acct: [id number] Name: JESS JAMES Rep #:[id number] : 1935 89 From: Radha Cope DO PCP: Dr. Dyan Kyle MD Status:A DM IN Location: MS3 GG889-6 Reason for Visit Chief Complaint: Fall with right hip pain Subjective Subjective No issues overnight. Patient is moving bowels. States he is feeling okay. No complaints at this time. Awaiting pre-CERT. Objective Data Objective Data Vital Signs: Vital Signs Temp Pulse Resp BP Pulse Ox O2 Del Method O2 Flow Rate 98.2 F 73 16 109/47 L 97 Room Air 2 12/22/24 13:52 12/22/24 13:52 12/22/24 13:52 12/22/24 13:52 12/22/24 13:52 12/22/24 13:52 12/19/24 21:40 Oxygen Flow Rate (L/min) 2 Oxygen Delivery Method Room Air Weight: 81.238 kg Body Mass Index (BMI) 25.7 Intake & Output: Intake and Output for Last 24 Hours 12/20/24 12/21/24 12/22/24 23:59 23:59 23:59 Intake Total 356.5 / 506.5 1190 / 1190 Output Total 450 / 450 600 / 600 300 / 300 Balance -93.5 / 56.5 590 / 590 -300 / -300 Lab / Micro Data 12/22/24 12:27 12/22/24 06:11 Labs: Laboratory Results - last 24 hr 12/22/24 06:11: WBC 6.9, RBC 2.73 L, Hgb 9.5 L, Hct 28.3 L, MCV 103.7 H, MCH 34.8 H, MCHC 33.6, RDW Std Deviation 50.1 H, RDW Coeff of Danilo 13.2, Plt Count 134 L, MPV 9.9, Sodium 140, Potassium 3.9, Chloride 110 H, Carbon Dioxide 19.9 L, Anion Gap 11, BUN 40 H, Creatinine 1.09, Estim Creat Clear Calc 49.30 L, Est GFR (MDRD) Non-Af 66, BUN/Creatinine Ratio 36.6 H, Glucose 81, Calcium 8.2 12/22/24 12:27: Hgb 10.0 L Physical Exam Const alert, oriented x3, no apparent distress, average body habitus and well nourished Constitutional Narrative: Elderly, white male, sitting up in a chair at the bedside, appears comfortable, nontoxic General Appearance: cooperative and comfortable HEENT normocephalic and head/scalp atraumatic HEENT Narrative: Hard of hearing Extremity no clubbing, cyanosis or edema Psych mental status grossly normal and affect normal Psych Narrative: Very pleasant, eye contact is good and patient interacts appropriately Assessment & Plan Assessment/Plan (1) Fracture of femoral neck, right, closed: QUALIFIERS: Encounter type: initial encounter Qualified Code(s): S72.001A - Fracture of unspecified part of neck of right femur, initial encounter for closed fracture PLAN: Plan Right femoral neck fracture-suspect pathological fracture with metastatic prostate cancer - Continue aspirin - Postop day 3 status post right hip cemented hemiarthroplasty with Dr. Hamilton - Continue scheduled Tylenol - Continue as needed oxycodone - continue DVT prophylaxis per primary with Eliquis 2.5 mg p.o. twice daily - PT/OT following - Social work/case management following and working on placement -[facility] once approved by insurance CODY secondary to ATN -Renal function has normalized Mild anemia -Hemoglobin relatively stable with slight drop this morning however repeat is stable -Repeat CBC in a.m. - Likely related to intraoperative blood loss and possibly dilutional from intraoperative volume expansion Thrombocytopenia -Platelet count is trending up and is now 134,000 and normalizing - Likely consumptive related to fracture and postop - continue to monitor Chronic HFrEF - Most recent echocardiogram from 03/12/2024 shows an EF of 35% -Continue Jardiance we will continue to hold Lasix Aldactone, Entresto and beta-keisha and monitor blood pressure for appropriateness of reinitiation - Monitor closely in the perioperative period for volume overload Essential hypertension/hyperlipidemia -Continue to hold home beta-keisha/Lasix/Aldactone/Entresto - Continue home statin - Continue home aspirin Chronic LBBB - last left heart catheterization 11/23/2023 demonstrating 60% smooth stenosis in the mid RCA and mild luminal irregularities in the distal RCA, circumflex artery, LAD - monitor post-op 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 Mcgee - bone supportive therapy with zoledronic acid every 12 weeks - monitor for post-op retention DM-2 -Continue Jardiance - Last a1c 5.7 on 10/25/24 - Fasting blood sugar 81 DVT Prophylaxis - SCD's -Eliquis 2.5 mg p.o. twice daily Code Status -FULL CODE Charges/Coding Visit Charges Inpatient E&M: 21679 Subs Hosp L1 Date medically ready for discharge: 12/22/24 Reason for DC delay: Precert pending from insurance 12/22/24 1642 <Electronically signed by Radha Cope DO> Cosigner Signature (if applicable): CC: ~ Signed [facility] Work Phone: 1(206) 949-898408-01-2025 Progress note [facility] Medical Records Department [address] [place] [address] Progress Note - Hospitalist 12/22/24 1638 MR#: [id number] Acct: [id number] Name: JESS JAMES Rep #:[id number] : 1935 89 From: Radha Cope DO PCP: Dr. Dyan Kyle MD Status:A DM IN Location: VA3 WN982-5 Reason for Visit Chief Complaint: Fall with right hip pain Subjective Subjective No issues overnight. Patient is moving bowels. States he is feeling okay. No complaints at this time. Awaiting pre-CERT. Objective Data Objective Data Vital Signs: Vital Signs Temp Pulse Resp BP Pulse Ox O2 Del Method O2 Flow Rate 98.2 F 73 16 109/47 L 97 Room Air 2 12/22/24 13:52 12/22/24 13:52 12/22/24 13:52 12/22/24 13:52 12/22/24 13:52 12/22/24 13:52 12/19/24 21:40 Oxygen Flow Rate (L/min) 2 Oxygen Delivery Method Room Air Weight: 81.238 kg Body Mass Index (BMI) 25.7 Intake & Output: Intake and Output for Last 24 Hours 12/20/24 12/21/24 12/22/24 23:59 23:59 23:59 Intake Total 356.5 / 506.5 1190 / 1190 Output Total 450 / 450 600 / 600 300 / 300 Balance -93.5 / 56.5 590 / 590 -300 / -300 Lab / Micro Data 12/22/24 12:27 12/22/24 06:11 Labs: Laboratory Results - last 24 hr 12/22/24 06:11: WBC 6.9, RBC 2.73 L, Hgb 9.5 L, Hct 28.3 L, MCV 103.7 H, MCH 34.8 H, MCHC 33.6, RDWStd Deviation 50.1 H, RDW Coeff of Danilo 13.2, Plt Count 134 L, MPV 9.9, Sodium 140, Potassium 3.9, Chloride 110 H, Carbon Dioxide 19.9 L, Anion Gap 11, BUN 40 H, Creatinine 1.09, Estim Creat Clear Calc 49.30 L, Est GFR (MDRD) Non-Af 66, BUN/Creatinine Ratio 36.6 H, Glucose 81, Calcium 8.2 12/22/24 12:27: Hgb 10.0 L Physical Exam Const alert, oriented x3, no apparent distress, average body habitus and well nourished Constitutional Narrative: Elderly, white male, sitting up in a chair at the bedside, appears comfortable, nontoxic General Appearance: cooperative and comfortable HEENT normocephalic and head/scalp atraumatic HEENT Narrative: Hard of hearing Extremity no clubbing, cyanosis or edema Psych mental status grossly normal and affect normal Psych Narrative: Very pleasant, eye contact is good and patient interacts appropriately Assessment & Plan Assessment/Plan (1) Fracture of femoral neck, right, closed: QUALIFIERS: Encounter type: initial encounter Qualified Code(s): S72.001A - Fracture of unspecifiedpart of neck of right femur, initial encounter for closed fracture PLAN: Plan Right femoral neck fracture-suspect pathological fracture with metastatic prostate cancer - Continue aspirin - Postop day 3 status post right hip cemented hemiarthroplasty with Dr. Hamilton - Continue scheduled Tylenol - Continue as needed oxycodone - continue DVT prophylaxis per primary with Eliquis 2.5 mg p.o. twice daily - PT/OT following - Social work/case management following and working on placement -[facility] once approved by insurance CODY secondary to ATN -Renal function has normalized Mild anemia -Hemoglobin relatively stable with slight drop this morning however repeat is stable -Repeat CBC in a.m. - Likely related to intraoperative blood loss and possibly dilutional from intraoperative volume expansion Thrombocytopenia -Platelet count is trending up and is now 134,000 and normalizing - Likely consumptive related to fracture and postop - continue to monitor Chronic HFrEF - Most recent echocardiogram from 03/12/2024 shows an EF of 35% -Continue Jardiance we will continue to hold Lasix Aldactone, Entresto and beta- keisha and monitorblood pressure for appropriateness of reinitiation - Monitor closely in the perioperative period for volume overload Essential hypertension/hyperlipidemia -Continue to hold home beta-keisha/Lasix/Aldactone/Entresto - Continue home statin - Continue home aspirin Chronic LBBB - last left heart catheterization 11/23/2023 demonstrating 60% smooth stenosis in the mid RCA and mild luminal irregularities in the distal RCA, circumflex artery, LAD - monitor post-op 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 Mcgee - bone supportive therapy with zoledronic acid every 12 weeks - monitor for post-op retention DM-2 -Continue Jardiance - Last a1c 5.7 on 10/25/24 - Fasting blood sugar 81 DVT Prophylaxis - SCD's -Eliquis 2.5 mg p.o. twice daily Code Status -FULL CODE Charges/Coding Visit Charges Inpatient E&M: 34681 Subs Hosp L1 Date medically ready for discharge: 12/22/24 Reason for DC delay: Precert pending from insurance 12/22/24 1643 Cosigner Signature (if applicable): CC: ~ Signed [facility]08-01-2025 Progress note Author Renae Rodríguez [facility] Note Date/Time December 22, 2024 7:5 7am [facility] Medical Records Department [address] [place] [address] Progress Note - Orthopedic 12/22/24 7798 MR#: [id number] Acct: [id number] Name: JESS JAMES Rep #:[id number] : 1935 89 From: Renae IGLESIAS PCP: Dr. Dyan Kyle MD Status:A DM IN Location: MS3 XQ951-1 Subjective Subjective Patient seen 12/21/[address] Hamilton. Postop day 2 status post right hip cemented hemiarthroplasty. Saw patient in 324 today. Saw patient at bedside. Says there is minimal pain. He was able to walk with physical therapy in the hallway. Uses a walker. Objective Data Objective Data Vital Signs: Vital Signs Temp Pulse Resp BP Pulse Ox O2 Del Method O2 Flow Rate 97.5 F L 75 16 116/46 L 97 Room Air 2 12/22/24 03:06 12/22/24 03:06 12/22/24 03:06 12/22/24 03:06 12/22/24 03:06 12/22/24 03:06 12/19/24 21:40 Oxygen Flow Rate (L/min) 2 Oxygen Delivery Method Room Air Weight: 179 lb 1.586 oz Body Mass Index (BMI) 25.7 Intake & Output: Intake and Output for Last 24 Hours 12/20/24 12/21/24 12/22/24 23:59 23:59 23:59 Intake Total 356.5 / 506.5 1190 / 1190 Output Total 450 / 450 600 / 600 300 / 300 Balance -93.5 / 56.5 590 / 590 -300 / -300 Lab / Micro Data 12/22/24 06:11 12/22/24 06:11 Labs: Laboratory Results - last 24 hr 12/22/24 06:11: WBC 6.9, RBC 2.73 L, Hgb 9.5 L, Hct 28.3 L, MCV 103.7 H, MCH 34.8 H, MCHC 33.6, RDW Std Deviation 50.1 H, RDW Coeff of Danilo 13.2, Plt Count 134 L, MPV 9.9, Sodium 140, Potassium 3.9, Chloride 110 H, Carbon Dioxide 19.9 L, Anion Gap 11, BUN 40 H, Creatinine 1.09, Estim Creat Clear Calc 49.30 L, Est GFR (MDRD) Non-Af 66, BUN/Creatinine Ratio 36.6 H, Glucose 81, Calcium 8.2 Physical Exam Narrative Dressing?CDI. Distal neurovascular exam is intact. No significant lower extremity edema. No pain in distal extremity. Mika's negative. Const alert, oriented x3 and no apparent distress Assessment & Plan Assessment/Plan (1) Status post hemiarthroplasty of right hip: PLAN: Plan Postop day 2 status post right hip hemiarthroplasty. Pain well-controlled. Was able to walk with PT. DVT chemoprophylaxis with Eliquis. Weightbearing as tolerated. Posterior hip precautions. Plan for SNF discharge. Orthopedics will sign off. Follow-up in clinic in 2 weeks for staple removal. 12/22/24 0757 <Electronically signed by Renae IGLESIAS> Cosigner Signature (if applicable): CC: ~ Signed [facility] Work Phone: 1(315) 504-229108-01-2025 Progress note [facility] Medical Records Department [address] [place] [address] Progress Note - Orthopedic 12/22/24 0754 MR#: [id number] Acct: [id number] Name: JESS JAMES Rep #:[id number] : 1935 89 From: Renae IGLESIAS PCP: Dr. Dyan Kyle MD Status:A DM IN [place] [facility] Subjective Subjective Patient seen 12/21/[address] Hamilton. Postop day 2 status post right hip cemented hemiarthroplasty. Saw patient in 324 today. Saw patient at bedside. Says there is minimal pain. He was able to walk with physical therapy in the hallway. Uses a walker. Objective Data Objective Data Vital Signs: Vital Signs Temp Pulse Resp BP Pulse Ox O2 Del Method O2 Flow Rate 97.5 F L 75 16 116/46 L 97 Room Air 2 12/22/24 03:06 12/22/24 03:06 12/22/24 03:06 12/22/24 03:06 12/22/24 03:06 12/22/24 03:06 12/19/24 21:40 Oxygen Flow Rate (L/min) 2 Oxygen Delivery Method Room Air Weight: 179 lb 1.586 oz Body Mass Index (BMI) 25.7 Intake & Output: Intake and Output for Last 24 Hours 12/20/24 12/21/24 12/22/24 23:59 23:59 23:59 Intake Total 356.5 / 506.5 1190 / 1190 Output Total 450 / 450 600 / 600 300 / 300 Balance -93.5 / 56.5 590 / 590 -300 / -300 Lab / Micro Data 12/22/24 06:11 12/22/24 06:11 Labs: Laboratory Results - last 24 hr 12/22/24 06:11: WBC 6.9, RBC 2.73 L, Hgb 9.5 L, Hct 28.3 L, MCV 103.7 H, MCH 34.8 H, MCHC 33.6, RDWStd Deviation 50.1 H, RDW Coeff of Danilo 13.2, Plt Count 134 L, MPV 9.9, Sodium 140, Potassium 3.9, Chloride 110 H, Carbon Dioxide 19.9 L, Anion Gap 11, BUN 40 H, Creatinine 1.09, Estim Creat Clear Calc 49.30 L, Est GFR (MDRD) Non-Af 66, BUN/Creatinine Ratio 36.6 H, Glucose 81, Calcium 8.2 Physical Exam Narrative Dressing?CDI. Distal neurovascular exam is intact. No significant lower extremity edema. No pain indistal extremity. Mika's negative. Const alert, oriented x3 and no apparent distress Assessment & Plan Assessment/Plan (1) Status post hemiarthroplasty of right hip: PLAN: Plan Postop day 2 status post right hip hemiarthroplasty. Pain well-controlled. Was able to walk with PT. DVT chemoprophylaxis with Eliquis. Weightbearing as tolerated. Posterior hip precautions. Plan for SNF discharge. Orthopedics will sign off. Follow-up in clinic in 2 weeks for staple removal. 12/22/24 1210 Cosigner Signature (if applicable): CC: ~ Signed [facility]07-31-2025 Progress note Author Radha Cope [facility] Note Date/Time December 21, 2024 5:56 pm [facility] Medical Records Department [address] [place] [address] Progress Note - Hospitalist 12/21/24 0823 MR#: [id number] Acct: [id number] Name: JACOBJESS Covarrubias Rep #:[id number] : 1935 89 From: Radha Cope DO PCP: Dr. Dyan Kyle MD Status:A DM IN Location: MS3 FQ719-6 Reason for Visit Chief Complaint: Fall with right hip pain Objective Data Objective Data Vital Signs: Vital Signs Temp Pulse Resp BP Pulse Ox O2 Del Method O2 Flow Rate 98.3 F 77 16 125/60 H 97 Room Air 2 12/21/24 05:15 12/21/24 05:15 12/21/24 05:15 12/21/24 05:15 12/21/24 05:15 12/21/24 05:15 12/19/24 21:40 Oxygen Flow Rate (L/min) 2 Oxygen Delivery Method Room Air Weight: 81.238 kg Body Mass Index (BMI) 25.7 Intake & Output: Intake and Output for Last 24 Hours 12/19/24 12/20/24 12/21/24 23:59 23:59 23:59 Intake Total 258 / 258 356.5 / 506.5 350 / 350 Output Total 1050 / 1350 450 / 450 Balance -792 / -1092 -93.5 / 56.5 350 / 350 Lab / Micro Data 12/21/24 06:04 12/21/24 06:04 Labs: Laboratory Results - last 24 hr 12/21/24 06:04: WBC 9.2, RBC 2.94 L, Hgb 10.3 L, Hct 30.8 L, MCV 104.8 H, MCH 35.0 H, MCHC 33.4, RDW Std Deviation 50.3 H, RDW Coeff of Danilo 13.0, Plt Count 109 L, MPV 9.6, Sodium 140, Potassium 4.0, Chloride 106, Carbon Dioxide 22.8, Anion Gap 11, BUN 49 H, Creatinine 1.53 H, Estim Creat Clear Calc 35.12 L, Est GFR (MDRD) Non-Af 44 L, BUN/Creatinine Ratio 32.2 H, Glucose 115 H, Calcium 8.4 Physical Exam Const alert, oriented x3, no apparent distress, average body habitus and well nourished Constitutional Narrative: Elderly, white male, sitting up in a chair at the bedside, appears comfortable, nontoxic General Appearance: cooperative and comfortable HEENT normocephalic, head/scalp atraumatic, hearing grossly normal bilaterally, nasal mucous membranes and turbinates normal and moist oral mucous membranes Eyes PERRL, EOMs intact bilaterally and conjunctivae normal Neck full ROM Chest inspection of chest normal Resp normal respiratory effort, normal air movement, no retractions, no use of accessory muscles and clear to auscultation bilaterally Auscultation: Negative for rales, rhonchi or wheezes Cardio regular rate, regular rhythm, S1 normal heart sound, S2 normal heart sound, no murmurs, no rub, no gallops, no clicks and peripheral pulses 2+ throughout GI normal to inspection, nondistended, normoactive bowel sounds, soft to palpation,non-tender and non-distended Back/Spine normal ROM Extremity Extremity Narrative: Trace lower extremity edema, no cyanosis or clubbing, pedal and radial pulses are 2+ bilaterally, right lower extremity within normal limits and postop dressing in place and is clean dry and intact Skin no rashes or lesions noted Neuro oriented x3, moves all extremities and no focal motor deficits Neuro Narrative: Unable to move right lower extremity moves all other extremities without difficulty Speech: speech normal Psych mental status grossly normal and affect normal Psych Narrative: Very pleasant, eye contact is good and patient interacts appropriately Assessment & Plan Assessment/Plan (1) Fracture of femoral neck, right, closed: QUALIFIERS: Encounter type: initial encounter Qualified Code(s): S72.001A - Fracture of unspecified part of neck of right femur, initial encounter for closed fracture PLAN: Plan Right femoral neck fracture-suspect pathological fracture with metastatic prostate cancer - Continue aspirin - Postop day 2 status post right hip cemented hemiarthroplasty with Dr. Hamilton - Continue scheduled Tylenol - Continue as needed oxycodone - continue DVT prophylaxis per primary with Eliquis 2.5 mg p.o. twice daily - PT/OT following - Social work/case management following and working on placement -[facility] once approved by insurance CODY secondary to ATN - Patient was noted to get multiple doses of phenylephrine in the OR and was hypotensive - continue to hold home antihypertensives today as well as diuretics - Avoid aggressive fluids due to history of heart failure - Try to maintain MAP greater than 65 and recheck lab in a.m. - renal function is stable but still elevated suspect should start trending downwith the next 24 hours Mild anemia -Hemoglobin relatively stable -Repeat CBC in a.m. - Likely related to intraoperative blood loss and possibly dilutional from intraoperative volume expansion Thrombocytopenia - Platelet count 109,000 - Likely consumptive related to fracture and postop - continue to monitor Chronic HFrEF - Most recent echocardiogram from 03/12/2024 shows an EF of 35% -Continue Jardiance but continue to hold Lasix, Aldactone, Entresto, and beta- keisha - Monitor closely in the perioperative period for volume overload Essential hypertension/hyperlipidemia - Hold home beta-keisha/Lasix/Aldactone/Entresto - Continue home statin - Continue home aspirin Chronic LBBB - last left heart catheterization 11/23/2023 demonstrating 60% smooth stenosis in the mid RCA and mild luminal irregularities in the distal RCA, circumflex artery, LAD - monitor post-op 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 Mcgee - bone supportive therapy with zoledronic acid every 12 weeks - monitor for post-op retention DM-2 -Continue Jardiance - Last a1c 5.7 on 10/25/24 - Fasting blood sugar 115 DVT Prophylaxis - SCD's -Eliquis 2.5 mg p.o. twice daily Code Status -FULL CODE Charges/Coding Visit Charges Inpatient E&M: 23594 Subs Hosp L2 12/21/24 9357 <Electronically signed by Radha Cope DO> Cosigner Signature (if applicable): CC: ~ Signed [facility] Work Phone: 1(622) 279-466007-31-2025 Progress note [facility] Medical Records Department [address] [place] [address] Progress Note - Hospitalist 12/21/24 0823 MR#: [id number] Acct: [id number] Name: JESS JAMES Rep #:[id number] : 1935 89 From: Radha Cope DO PCP: Dr. Dyan Kyle MD Status:A DM IN [place] [facility]-4 Reason for Visit Chief Complaint: Fall with right hip pain Objective Data Objective Data Vital Signs: Vital Signs Temp Pulse Resp BP Pulse Ox O2 Del Method O2 Flow Rate 98.3 F 77 16 125/60 H 97 Room Air 2 12/21/24 05:15 12/21/24 05:15 12/21/24 05:15 12/21/24 05:15 12/21/24 05:15 12/21/24 05:15 12/19/24 21:40 Oxygen Flow Rate (L/min) 2 Oxygen Delivery Method Room Air Weight: 81.238 kg Body Mass Index (BMI) 25.7 Intake & Output: Intake and Output for Last 24 Hours 12/19/24 12/20/24 12/21/24 23:59 23:59 23:59 Intake Total 258 / 258 356.5 / 506.5 350 / 350 Output Total 1050 / 1350 450 / 450 Balance -792 / -1092 -93.5 / 56.5 350 / 350 Lab / Micro Data 12/21/24 06:04 12/21/24 06:04 Labs: Laboratory Results - last 24 hr 12/21/24 06:04: WBC 9.2, RBC 2.94 L, Hgb 10.3 L, Hct 30.8 L, MCV 104.8 H, MCH 35.0 H, MCHC 33.4, RDW Std Deviation 50.3 H, RDW Coeff of Danilo 13.0, Plt Count 109 L, MPV 9.6, Sodium 140, Potassium 4.0, Chloride 106, Carbon Dioxide 22.8, Anion Gap 11, BUN 49 H, Creatinine 1.53 H, Estim Creat Clear Calc35.12 L, Est GFR (MDRD) Non-Af 44 L, BUN/Creatinine Ratio 32.2 H, Glucose 115 H, Calcium 8.4 Physical Exam Const alert, oriented x3, no apparent distress, average body habitus and well nourished Constitutional Narrative: Elderly, white male, sitting up in a chair at the bedside, appears comfortable, nontoxic General Appearance: cooperative and comfortable HEENT normocephalic, head/scalp atraumatic, hearing grossly normal bilaterally, nasal mucous membranes and turbinates normal and moist oral mucous membranes Eyes PERRL, EOMs intact bilaterally and conjunctivae normal Neck full ROM Chest inspection of chest normal Resp normal respiratory effort, normal air movement, no retractions, no use of accessory muscles and clear to auscultation bilaterally Auscultation: Negative for rales, rhonchi or wheezes Cardio regular rate, regular rhythm, S1 normal heart sound, S2 normal heart sound, no murmurs, no rub, no gallops, no clicks and peripheral pulses 2+ throughout GI normal to inspection, nondistended, normoactive bowel sounds, soft to palpation,non-tender and non-distended Back/Spine normal ROM Extremity Extremity Narrative: Trace lower extremity edema, no cyanosis or clubbing, pedal and radial pulses are 2+ bilaterally, right lower extremity within normal limits and postop dressing in place and is clean dry and intact Skin no rashes or lesions noted Neuro oriented x3, moves all extremities and no focal motor deficits Neuro Narrative: Unable to move right lower extremity moves all other extremities without difficulty Speech: speech normal Psych mental status grossly normal and affect normal Psych Narrative: Very pleasant, eye contact is good and patient interacts appropriately Assessment & Plan Assessment/Plan (1) Fracture of femoral neck, right, closed: QUALIFIERS: Encounter type: initial encounter Qualified Code(s): S72.001A - Fracture of unspecifiedpart of neck of right femur, initial encounter for closed fracture PLAN: Plan Right femoral neck fracture-suspect pathological fracture with metastatic prostate cancer - Continue aspirin - Postop day 2 status post right hip cemented hemiarthroplasty with Dr. Hamilton - Continue scheduled Tylenol - Continue as needed oxycodone - continue DVT prophylaxis per primary with Eliquis 2.5 mg p.o. twice daily - PT/OT following - Social work/case management following and working on placement -[facility] once approved by insurance CODY secondary to ATN - Patient was noted to get multiple doses of phenylephrine in the OR and was hypotensive - continue to hold home antihypertensives today as well as diuretics - Avoid aggressive fluids due to history of heart failure - Try to maintain MAP greater than 65 and recheck lab in a.m. - renal function is stable but still elevated suspect should start trending downwith the next 24 hours Mild anemia -Hemoglobin relatively stable -Repeat CBC in a.m. - Likely related to intraoperative blood loss and possibly dilutional from intraoperative volume expansion Thrombocytopenia - Platelet count 109,000 - Likely consumptive related to fracture and postop - continue to monitor Chronic HFrEF - Most recent echocardiogram from 03/12/2024 shows an EF of 35% -Continue Jardiance but continue to hold Lasix, Aldactone, Entresto, and beta-keisha - Monitor closely in the perioperative period for volume overload Essential hypertension/hyperlipidemia - Hold home beta-keisha/Lasix/Aldactone/Entresto - Continue home statin - Continue home aspirin Chronic LBBB - last left heart catheterization 11/23/2023 demonstrating 60% smooth stenosis in the mid RCA and mild luminal irregularities in the distal RCA, circumflex artery, LAD - monitor post-op 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 Mcgee - bone supportive therapy with zoledronic acid every 12 weeks - monitor for post-op retention DM-2 -Continue Jardiance - Last a1c 5.7 on 10/25/24 - Fasting blood sugar 115 DVT Prophylaxis - SCD's -Eliquis 2.5 mg p.o. twice daily Code Status -FULL CODE Charges/Coding Visit Charges Inpatient E&M: 93130 Subs Hosp L2 12/21/24 5359 Cosigner Signature (if applicable): CC: ~ Signed [facility]07-30-2025 Progress note Author Bj Hamilton [facility] Note Date/Time December 20, 2024 2:06 pm [facility] Medical Records Department [address] [place] [address] Progress Note - Orthopedic 12/20/24 1405 MR#: [id number] Acct: [id number] Name: JESS JAMES Rep #:[id number] : 1935 89 From: Bj Haimlton MD PCP: Dr. Dyan Kyle MD Status:A DM IN [facility] Subject[facility] Subjective Postop day 1 status post right hip cemented hemiarthroplasty. Saw patient in 324 today. Patient was sitting on recliner. Says there is no pain. He was able to walk with physical therapy in the hallway. Uses a walker. Objective Data Objective Data Vital Signs: Vital Signs Temp Pulse Resp BP Pulse Ox O2 Del Method O2 Flow Rate 97.4 F L 61 15 103/44 L 97 Room Air 2 12/20/24 07:38 12/20/24 07:38 12/20/24 07:38 12/20/24 07:38 12/20/24 07:38 12/20/24 07:38 12/19/24 21:40 Oxygen Flow Rate (L/min) 2 Oxygen Delivery Method Room Air Weight: 179 lb 1.6 oz Body Mass Index (BMI) 25.7 Intake & Output: Intake and Output for Last 24 Hours 12/18/24 12/19/24 12/20/24 23:59 23:59 23:59 Intake Total 258 / 258 356.5 / 356.5 Output Total 250 / 650 1050 / 1350 450 / 450 Balance -250 / -650 -792 / -1092 -93.5 / -93.5 Lab / Micro Data 12/20/24 06:23 12/20/24 06:23 Labs: Laboratory Results - last 24 hr 12/20/24 06:23: WBC 10.2, RBC 3.23 L, Hgb 11.3 L, Hct 33.4 L, MCV 103.4 H, MCH 35.0 H, MCHC 33.8, RDW Std Deviation 50.2 H, RDW Coeff of Danilo 13.2, Plt Count 117 L, MPV 9.4, Sodium 143, Potassium 4.7, Chloride 108, Carbon Dioxide 23.9, Anion Gap 11, BUN 34 H, Creatinine 1.51 H, Estim Creat Clear Calc 35.59 L, Est GFR (MDRD) Non-Af 44 L, BUN/Creatinine Ratio 22.6 H, Glucose 138 H, Calcium 8.4 Radiography Diagnostic Testing: Radiology Impression Hip/Pelvis X-Ray 12/19/24 15:50 IMPRESSION: Interval placement a right proximal femoral endoprosthesis. No complication is seen on the solitary view obtained. Reading Location: [place] [address] Physical Exam Narrative Dressing?CDI. Distal neurovascular exam is intact. Assessment & Plan Assessment/Plan (1) Status post hemiarthroplasty of right hip: PLAN: Plan Postop day 1 status post right hip hemiarthroplasty. Pain well-controlled. Was able to walk with PT. DVT chemoprophylaxis with Eliquis. Weightbearing as tolerated. Posterior hip precautions. Follow-up in clinic in 2 weeks for staple removal. 12/20/24 1406 <Electronically signed by Bj Hamilton MD> Cosigner Signature (if applicable): CC: ~ Signed [facility] Work Phone: 1(907) 402-511607-30-2025 Progress note Author Radha Cope [facility] Note Date/Time December 20, 2024 1:48 pm [facility] Medical Records Department [address] [place] [address] Progress Note - Hospitalist 12/20/24 1340 MR#: [id number] Acct: [id number] Name: JESS JAMES Rep #:[id number] : 1935 89 From: Radha Cope DO PCP: Dr. Dyan Kyle MD Status:A DM IN Location: [facility] NO608-8 Reason for Visit Chief Complaint: Fall with right hip pain Subjective Subjective Patient states his right hip pain is minimal after surgery. Would like to go toacute rehab at discharge we did explain the process with regards to his insurance. No current issues. Objective Data Objective Data Vital Signs: Vital Signs Temp Pulse Resp BP Pulse Ox O2 Del Method O2 Flow Rate 97.4 F L 61 15 103/44 L 97 Room Air 2 12/20/24 07:38 12/20/24 07:38 12/20/24 07:38 12/20/24 07:38 12/20/24 07:38 12/20/24 07:38 12/19/24 21:40 Oxygen Flow Rate (L/min) 2 Oxygen Delivery Method Room Air Weight: 81.238 kg Body Mass Index (BMI) 25.7 Intake & Output: Intake and Output for Last 24 Hours 12/18/24 12/19/24 12/20/24 23:59 23:59 23:59 Intake Total 258 / 258 356.5 / 356.5 Output Total 250 / 650 1050 / 1350 450 / 450 Balance -250 / -650 -792 / -1092 -93.5 / -93.5 Lab / Micro Data 12/20/24 06:23 12/20/24 06:23 Labs: Laboratory Results - last 24 hr 12/20/24 06:23: WBC 10.2, RBC 3.23 L, Hgb 11.3 L, Hct 33.4 L, MCV 103.4 H, MCH 35.0 H, MCHC 33.8, RDW Std Deviation 50.2 H, RDW Coeff of Danilo 13.2, Plt Count 117 L, MPV 9.4, Sodium 143, Potassium 4.7, Chloride 108, Carbon Dioxide 23.9, Anion Gap 11, BUN 34 H, Creatinine 1.51 H, Estim Creat Clear Calc 35.59 L, Est GFR (MDRD) Non-Af 44 L, BUN/Creatinine Ratio 22.6 H, Glucose 138 H, Calcium 8.4 Radiography Diagnostic Testing: Radiology Impression Hip/Pelvis X-Ray 12/19/24 15:50 IMPRESSION: Interval placement a right proximal femoral endoprosthesis. No complication is seen on the solitary view obtained. Reading Location: [place] [address] Physical Exam Const alert, oriented x3, no apparent distress, average body habitus and well nourished Constitutional Narrative: Elderly, white male, sitting up in a chair at the bedside, appears comfortable, nontoxic General Appearance: cooperative and comfortable HEENT normocephalic, head/scalp atraumatic and moist oral mucous membranes HEENT Narrative: Moderate hearing loss, dentition is fair, Mallampati is 2, no thrush Resp normal respiratory effort, normal air movement, no retractions, no use of accessory muscles and clear to auscultation bilaterally Auscultation: Negative for rales, rhonchi or wheezes Cardio regular rate, regular rhythm, S1 normal heart sound, S2 normal heart sound, no murmurs, no rub, no gallops and no clicks GI normal to inspection, nondistended, normoactive bowel sounds, soft to palpation and non-tender Extremity Extremity Narrative: Trace lower extremity edema, no cyanosis or clubbing, pedal and radial pulses are 2+ bilaterally, right lower extremity within normal limits and postop dressing in place and is clean dry and intact Neuro moves all extremities and no focal motor deficits Speech: speech normal Psych mental status grossly normal and affect normal Psych Narrative: Very pleasant, eye contact is good and patient interacts appropriately Assessment & Plan Assessment/Plan (1) Fracture of femoral neck, right, closed: QUALIFIERS: Encounter type: initial encounter Qualified Code(s): S72.001A - Fracture of unspecified part of neck of right femur, initial encounter for closed fracture PLAN: Plan Right femoral neck fracture-suspect pathological fracture with metastatic prostate cancer - Restart aspirin -Postop day 1 status post right hip cemented hemiarthroplasty with Dr. Hamilton - Continue scheduled Tylenol - Continue as needed oxycodone -DVT prophylaxis per primary with Eliquis 2.5 mg p.o. twice daily - PT/OT following and recommending rehab at discharge - Social work/case management following and working on placement CODY secondary to ATN - Patient was noted to get multiple doses of phenylephrine in the OR and was hypotensive -will hold home antihypertensives today as well as diuretics - Avoid aggressive fluids due to history of heart failure - Try to maintain MAP greater than 65 and recheck lab in a.m. Mild anemia - Hemoglobin 11.3 with about 1 g drop postoperatively - Likely related to intraoperative blood loss and possibly dilutional - Continue to monitor Thrombocytopenia - Platelet count 117,000 - Likely consumptive related to fracture and postop - Can continue to monitor Chronic HFrEF - Most recent echocardiogram from 03/12/2024 shows an EF of 35% -Continue Jardiance but continue to hold Lasix, Aldactone, Entresto, and beta- keisha - Monitor closely in the perioperative period for volume overload Essential hypertension/hyperlipidemia -Hold home beta-keisha - Continue home statin - Continue home aspirin Chronic LBBB - last left heart catheterization 11/23/2023 demonstrating 60% smooth stenosis in the mid RCA and mild luminal irregularities in the distal RCA, circumflex artery, LAD - monitor post-op 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 Mcgee - bone supportive therapy with zoledronic acid every 12 weeks - monitor for post-op retention DM-2 -Continue Jardiance - Last a1c 5.7 on 10/25/24 DVT Prophylaxis - SCD's -Eliquis 2.5 mg p.o. twice daily Code Status -FULL CODE Charges/Coding Visit Charges Inpatient E&M: 15191 Subs Hosp L2 12/20/24 1348 <Electronically signed by Radha Cope DO> Cosigner Signature (if applicable): CC: ~ Signed [facility] Work Phone: 1(393) 936-447507-30-2025 Progress note [facility] Medical Records Department [address] [place] [address] Progress Note - Orthopedic 12/20/24 1405 MR#: [id number] Acct: [id number] Name: JESS JAMES Rep #:[id number] : 1935 89 From: Bj Hamilton MD PCP: Dr. Dyan Kyle MD Status:A DM IN Location: [facility] [id number] Subjective Subjective Postop day 1 status post right hip cemented hemiarthroplasty. Saw patient in 324 today. Patient was sitting on recliner. Says there is no pain. He was able to walk with physical therapy in the hallway. Uses a walker. Objective Data Objective Data Vital Signs: Vital Signs Temp Pulse Resp BP Pulse Ox O2 Del Method O2 Flow Rate 97.4 F L 61 15 103/44 L 97 Room Air 2 12/20/24 07:38 12/20/24 07:38 12/20/24 07:38 12/20/24 07:38 12/20/24 07:38 12/20/24 07:38 12/19/24 21:40 Oxygen Flow Rate (L/min) 2 Oxygen Delivery Method Room Air Weight: 179 lb 1.6 oz Body Mass Index (BMI) 25.7 Intake & Output: Intake and Output for Last 24 Hours 12/18/24 12/19/24 12/20/24 23:59 23:59 23:59 Intake Total 258 / 258 356.5 / 356.5 Output Total 250 / 650 1050 / 1350 450 / 450 Balance -250 / -650 -792 / -1092 -93.5 / -93.5 Lab / Micro Data 12/20/24 06:23 12/20/24 06:23 Labs: Laboratory Results - last 24 hr 12/20/24 06:23: WBC 10.2, RBC 3.23 L, Hgb 11.3 L, Hct 33.4 L, MCV 103.4 H, MCH 35.0 H, MCHC 33.8, RDW Std Deviation 50.2 H, RDW Coeff of Danilo 13.2, Plt Count 117 L, MPV 9.4, Sodium 143, Potassium 4.7,Chloride 108, Carbon Dioxide 23.9, Anion Gap 11, BUN 34 H, Creatinine 1.51 H, Estim Creat Clear Calc 35.59 L, Est GFR (MDRD) Non-Af 44 L, BUN/Creatinine Ratio 22.6 H, Glucose 138 H, Calcium 8.4 Radiography Diagnostic Testing: Radiology Impression Hip/Pelvis X-Ray 12/19/24 15:50 IMPRESSION: Interval placement a right proximal femoral endoprosthesis. No complication is seen on the solitaryview obtained. Reading Location: [place] [address] Physical Exam Narrative Dressing?CDI. Distal neurovascular exam is intact. Assessment & Plan Assessment/Plan (1) Status post hemiarthroplasty of right hip: PLAN: Plan Postop day 1 status post right hip hemiarthroplasty. Pain well-controlled. Was able to walk with PT. DVT chemoprophylaxis with Eliquis. Weightbearing as tolerated. Posterior hip precautions. Follow-up in clinic in 2 weeks for staple removal. 12/20/24 1406 Cosigner Signature (if applicable): CC: ~ Signed [facility]07-30-2025 Progress note [facility] Medical Records Department [address] [place] [address] Progress Note - Hospitalist 12/20/24 1340 MR#: [id number] Acct: [id number] Name: JESS JAMES Rep #:[id number] : 1935 89 From: Radha Cope DO PCP: Dr. Dyan Kyle MD Status:A DM IN [place] [facility]-6 Reason for Visit Chief Complaint: Fall with right hip pain Subjective Subjective Patient states his right hip pain is minimal after surgery. Would like to go toacute rehab at discharge we did explain the process with regards to his insurance. No current issues. Objective Data Objective Data Vital Signs: Vital Signs Temp Pulse Resp BP Pulse Ox O2 Del Method O2 Flow Rate 97.4 F L 61 15 103/44 L 97 Room Air 2 12/20/24 07:38 12/20/24 07:38 12/20/24 07:38 12/20/24 07:38 12/20/24 07:38 12/20/24 07:38 12/19/24 21:40 Oxygen Flow Rate (L/min) 2 Oxygen Delivery Method Room Air Weight: 81.238 kg Body Mass Index (BMI) 25.7 Intake & Output: Intake and Output for Last 24 Hours 12/18/24 12/19/24 12/20/24 23:59 23:59 23:59 Intake Total 258 / 258 356.5 / 356.5 Output Total 250 / 650 1050 / 1350 450 / 450 Balance -250 / -650 -792 / -1092 -93.5 / -93.5 Lab / Micro Data 12/20/24 06:23 12/20/24 06:23 Labs: Laboratory Results - last 24 hr 12/20/24 06:23: WBC 10.2, RBC 3.23 L, Hgb 11.3 L, Hct 33.4 L, MCV 103.4 H, MCH 35.0 H, MCHC 33.8, RDW Std Deviation 50.2 H, RDW Coeff of Danilo 13.2, Plt Count 117 L, MPV 9.4, Sodium 143, Potassium 4.7,Chloride 108, Carbon Dioxide 23.9, Anion Gap 11, BUN 34 H, Creatinine 1.51 H, Estim Creat Clear Calc 35.59 L, Est GFR (MDRD) Non-Af 44 L, BUN/Creatinine Ratio 22.6 H, Glucose 138 H, Calcium 8.4 Radiography Diagnostic Testing: Radiology Impression Hip/Pelvis X-Ray 12/19/24 15:50 IMPRESSION: Interval placement a right proximal femoral endoprosthesis. No complication is seen on the solitaryview obtained. Reading Location: [place] [address] Physical Exam Const alert, oriented x3, no apparent distress, average body habitus and well nourished Constitutional Narrative: Elderly, white male, sitting up in a chair at the bedside, appears comfortable, nontoxic General Appearance: cooperative and comfortable HEENT normocephalic, head/scalp atraumatic and moist oral mucous membranes HEENT Narrative: Moderate hearing loss, dentition is fair, Mallampati is 2, no thrush Resp normal respiratory effort, normal air movement, no retractions, no use of accessory muscles and clear to auscultation bilaterally Auscultation: Negative for rales, rhonchi or wheezes Cardio regular rate, regular rhythm, S1 normal heart sound, S2 normal heart sound, no murmurs, no rub, no gallops and no clicks GI normal to inspection, nondistended, normoactive bowel sounds, soft to palpation and non-tender Extremity Extremity Narrative: Trace lower extremity edema, no cyanosis or clubbing, pedal and radial pulses are 2+ bilaterally, right lower extremity within normal limits and postop dressing in place and is clean dry and intact Neuro moves all extremities and no focal motor deficits Speech: speech normal Psych mental status grossly normal and affect normal Psych Narrative: Very pleasant, eye contact is good and patient interacts appropriately Assessment & Plan Assessment/Plan (1) Fracture of femoral neck, right, closed: QUALIFIERS: Encounter type: initial encounter Qualified Code(s): S72.001A - Fracture of unspecifiedpart of neck of right femur, initial encounter for closed fracture PLAN: Plan Right femoral neck fracture-suspect pathological fracture with metastatic prostate cancer - Restart aspirin -Postop day 1 status post right hip cemented hemiarthroplasty with Dr. Hamilton - Continue scheduled Tylenol - Continue as needed oxycodone -DVT prophylaxis per primary with Eliquis 2.5 mg p.o. twice daily - PT/OT following and recommending rehab at discharge - Social work/case management following and working on placement CODY secondary to ATN - Patient was noted to get multiple doses of phenylephrine in the OR and was hypotensive -will hold home antihypertensives today as well as diuretics - Avoid aggressive fluids due to history of heart failure - Try to maintain MAP greater than 65 and recheck lab in a.m. Mild anemia - Hemoglobin 11.3 with about 1 g drop postoperatively - Likely related to intraoperative blood loss and possibly dilutional - Continue to monitor Thrombocytopenia - Platelet count 117,000 - Likely consumptive related to fracture and postop - Can continue to monitor Chronic HFrEF - Most recent echocardiogram from 03/12/2024 shows an EF of 35% -Continue Jardiance but continue to hold Lasix, Aldactone, Entresto, and beta-keisha - Monitor closely in the perioperative period for volume overload Essential hypertension/hyperlipidemia -Hold home beta-keisha - Continue home statin - Continue home aspirin Chronic LBBB - last left heart catheterization 11/23/2023 demonstrating 60% smooth stenosis in the mid RCA and mild luminal irregularities in the distal RCA, circumflex artery, LAD - monitor post-op 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 Mcgee - bone supportive therapy with zoledronic acid every 12 weeks - monitor for post-op retention DM-2 -Continue Jardiance - Last a1c 5.7 on 10/25/24 DVT Prophylaxis - SCD's -Eliquis 2.5 mg p.o. twice daily Code Status -FULL CODE Charges/Coding Visit Charges Inpatient E&M: 08936 Subs Hosp L2 12/20/24 1348 Cosigner Signature (if applicable): CC: ~ Signed [facility]07-29-2025 Consult note Author Bernardino Brian [facility] Note Date/Time December 19, 2024 8:35 pm [facility] Medical Records Department [address] [place] [address] Anesthesia Postop Eval II 12/19/242033 MR#: [id number] Acct: [id number] Name: JESS JAMES Rep #:[id number] : 1935 89 From: Bernardino Brian MD PCP: Dr. Dyan Kyle MD Status:A DM IN Y Race: C [place] [facility] [place] -1 Anesthesia Postop Eval I Sum Postop Eval Completion status Anesthesia document: Postop Eval 1 completed: Yes Anesthesia Postop Eval I Summary Anesthesia Postop Eval I Summary: Anesthesia Postop Eval I: Assessment Summary 3 Airway patent Yes 12/19/24 16:38 DAIRY POWDER MIXER OPERATOR.TOMOBY Spontaneous unlabored Yes 12/19/24 16:38 DAIRY POWDER MIXER OPERATOR.[place] respirations Mental status Asleep 12/19/24 16:38 DAIRY POWDER MIXER OPERATOR.TOMOBY nausea No 12/19/24 16:38 DAIRY POWDER MIXER OPERATOR.SKOBY Vomiting No 12/19/24 16:38 DAIRY POWDER MIXER OPERATOR.TOMOBY Anesthesia Postop Eval I: Fluid Summary Crystalloid volume administer 900 12/19/24 16:38 DAIRY POWDER MIXER OPERATOR.TOMOBY (ml) Colloids volume administered ( ml) Blood Product volume administered (ml) Total IV fluid infused 900 12/19/24 16:38 DAIRY POWDER MIXER OPERATOR.TOMOBY Anesthesia Postop Eval I: Summary Notes Anesthesia Complication No 12/19/24 16:38 DAIRY POWDER MIXER OPERATOR.TOMOBArturo Anesthesia Complication Comment: Post-operative progress note Anesthesia: Postop Eval II Evaluation Mental status: Awake and Calm Pain Level: 2 nausea: No Vomiting: No Complications Anesthesia Complication: No 12/19/242034 <Electronically signed by Bernardino bermudez MD> Date _ Bernardino Brian MD Cosigner Signature: Date CC: ~ Signed [facility] Work Phone: 1(731) 917-339307-29-2025 Consult note [facility] Medical Records Department [address] [place] [address] Anesthesia Postop Eval II 12/19/242033 MR#: [id number] Acct: [id number] Name: JESS JAMES Rep #:[id number] : 1935 89 From: Bernardino Brian MD PCP: Dr. Dyna Kyle MD Status:A DM IN Y Race: C [place] [facility] [id number] Anesthesia Postop Eval I Sum Postop Eval Completion status Anesthesia document: Postop Eval 1 completed: Yes Anesthesia Postop Eval I Summary Anesthesia Postop Eval I Summary: Anesthesia Postop Eval I: Assessment Summary 3 Airway patent Yes 12/19/24 16:38 DAIRY POWDER MIXER OPERATOR.TOMOBY Spontaneous unlabored Yes 12/19/24 16:38 DAIRY POWDER MIXER OPERATOR.TOMOBArturo respirations Mental status Asleep 12/19/24 16:38 DAIRY POWDER MIXER OPERATOR.SKOBY nausea No 12/19/24 16:38 DAIRY POWDER MIXER OPERATOR.SKOBY Vomiting No 12/19/24 16:38 DAIRY POWDER MIXER OPERATOR.SKOBY Anesthesia Postop Eval I: Fluid Summary Crystalloid volume administer 900 12/19/24 16:38 DAIRY POWDER MIXER OPERATOR.SKOBY (ml) Colloids volume administered ( ml) Blood Product volume administered (ml) Total IV fluid infused 900 12/19/24 16:38 DAIRY POWDER MIXER OPERATOR.SKOBY Anesthesia Postop Eval I: Summary Notes Anesthesia Complication No 12/19/24 16:38 DAIRY POWDER MIXER OPERATOR.SKOBY Anesthesia Complication Comment: Post-operative progress note Anesthesia: Postop Eval II Evaluation Mental status: Awake and Calm Pain Level: 2 nausea: No Vomiting: No Complications Anesthesia Complication: No 12/19/242034 aidan COVARRUBIAS> Date _ Bernardino Brian Cosigner Signature: Date CC: ~ Signed [facility]07-29-2025 Consult note Author Wanda Garcia [facility] Note Date/Time December 19, 2024 4:38 pm [facility] Medical Records Department [address] [place] [id number] Anesthesia Postop Eval I 12/19/241636 MR#: [id number] Acct: [id number] Name: JESS JAMES Rep #:[id number] : 1935 89 From: Wanda jensen DAIRY POWDER MIXER OPERATOR PCP: Dr. Dyan Kyle MD Status:A DM IN Y Race: C Location: [place] [address] Anesthesia: Postop Eval I Current Vital Signs Temperature: 98.1 F Pulse Rate: 74 Blood Pressure: 146/95 Respiratory Rate: 16 Pulse Ox: 99 Oxygen Delivery Method: Simple Mask Oxygen Flow Rate (L/min): 6 Assessment Airway patent: Yes Spontaneous unlabored respirations: Yes Mental status: Asleep nausea: No Vomiting: No Anesthesia Complication: No Fluid Hydration Crystalloid volume administer (ml): 900 Total IV fluid infused: 900 Progress Note Anesthesia document: Postop Eval 1 completed: Yes 12/19/241637 <Electronically signed by Wanda sandoval CRNA> Date _ Wanda Garcia CRNA Cosigner Signature: CC: ~ Signed [facility] Work Phone: 1(392) 886-221607-29-2025 Progress note Author Radha Cope [facility] Note Date/Time December 19, 2024 3:44 pm [facility] Medical Records Department [address] [place] [address] Progress Note - Hospitalist 12/19/24 0742 MR#: [id number] Acct: [id number] Name: JESS JAMES Rep #:[id number] : 1935 89 From: Radha Cope DO PCP: Dr. Dyan Kyle MD Status:A DM IN [facility] Reason for Visit Chief Complaint: Fall with right hip pain Subjective Subjective Patient states that he is having some discomfort in the hip overnight. Plan is for OR later today. Extensive discussion with regards to CODE STATUS given metastatic disease, age, and for EF. Patient elects to remain full code at thistime despite extensive description of what cardiopulmonary arrest entails with regards to resuscitation and long-term outcomes. Objective Data Objective Data Vital Signs: Vital Signs Temp Pulse Resp BP Pulse Ox O2 Del Method O2 Flow Rate 98.4 F 62 18 109/56 L 96 Room Air 2 12/19/24 05:17 12/19/24 05:17 12/19/24 05:17 12/19/24 05:17 12/19/24 05:17 12/19/24 05:18 12/18/24 15:56 Oxygen Flow Rate (L/min) 2 Oxygen Delivery Method Room Air Weight: 81.238 kg Body Mass Index (BMI) 25.7 Intake & Output: Intake and Output for Last 24 Hours 12/17/24 12/18/24 12/19/24 23:59 23:59 23:59 Output Total 250 / 650 700 / 700 Balance -250 / -650 -700 / -700 Lab / Micro Data 12/19/24 04:50 12/19/24 04:50 Labs: Laboratory Results - last 24 hr 12/18/24 14:15: WBC 6.2, RBC 3.82 L, Hgb 13.3, Hct 39.9 L, MCV 104.5 H, MCH 34.8H, MCHC 33.3, RDW Std Deviation 50.2 H, RDW Coeff of Danilo 13.1, Plt Count 120 L, MPV 9.5, Immature Gran % (Auto) 0.600, Neut % (Auto) 64.2, Lymph % (Auto) 28.2, Terry % (Auto) 5.6, Eos % (Auto) 1.1, Baso % (Auto) 0.3, Absolute Neuts (auto) 4.0, Absolute Lymphs (auto) 1.75, Nucleated RBC % 0, Sodium 142, Potassium 4.2, Chloride 110 H, Carbon Dioxide 19.5 L, Anion Gap 12, BUN 25 H, Creatinine 1.05, Estim Creat Clear Calc 51.18, Est GFR (MDRD) Non-Af 69, BUN/Creatinine Ratio 23.4 H, Glucose 114 H, Calcium 8.7, Total Bilirubin 0.51, Direct Bilirubin 0.21,AST 17, ALT 7, Alkaline Phosphatase 44, NT pro BNP II 1126, Total Protein 6.0, Albumin 3.3 L, Globulin 2.7 12/18/24 16:22: PT 14.8, INR 1.1, APTT 30.4 12/18/24 16:40: Urine Color Yellow, Urine Clarity Clear, Urine pH 7.0, Ur Specific [place] 1.010, Urine Protein 15 H, Urine Glucose (UA) 1000 H, Urine Ketones 15 H, Urine Occult Blood 10 H, Urine Nitrite Negative, Urine Bilirubin Negative, Urine Urobilinogen Normal, Ur Leukocyte Esterase Negative, Urine RBC 0-5 SEEN, Urine WBC 0 SEEN, Ur Squamous Epith Cells 0 SEEN, Urine Bacteria 0 SEEN, Urine Mucus 0 SEEN 12/19/24 04:50: WBC 7.3, RBC 3.48 L, Hgb 12.1 L, Hct 35.8 L, MCV 102.9 H, MCH 34.8 H, MCHC 33.8, RDW Std Deviation 49.3 H, RDW Coeff of Danilo 13.2, Plt Count 127 L, MPV 10.1, Sodium 142, Potassium 3.8, Chloride 109 H, Carbon Dioxide 22.6,Anion Gap 11, BUN 24 H, Creatinine 1.04, Estim Creat Clear Calc 51.67, Est GFR (MDRD) Non-Af 69, BUN/Creatinine Ratio 23.2 H, Glucose 122 H, Calcium 8.4, BloodType A NEGATIVE, Antibody Screen NEGATIVE Radiography Diagnostic Testing: Radiology Impression Chest X-Ray 12/18/24 13:15 IMPRESSION: Cardiomegaly. Findings suggestive of scarring in both lungs. Reading Location: [facility] Hip/Pelvis X-Ray 12/18/24 13:15 IMPRESSION: There is a fracture through the right femoral neck with 0.9 cm impaction. Critical results were discussed with Dr. Alberto by Dr. Bello at the time of dictation. Reading [facility] Physical Exam Const alert, oriented x3, no apparent distress, average body habitus and well nourished Constitutional Narrative: Elderly, white male, sitting up in bed, appears comfortable as long as he is notmoving his right lower extremity, nontoxic, very pleasant HEENT head/scalp atraumatic and moist oral mucous membranes Head and Scalp: normocephalic Resp normal respiratory effort, no retractions, no use of accessory muscles and clearto auscultation bilaterally Auscultation: Negative for rales, rhonchi or wheezes Cardio regular rate, regular rhythm, S1 normal heart sound, S2 normal heart sound, no murmurs, no rub, no gallops and no clicks GI normal to inspection, nondistended, normoactive bowel sounds, soft to palpation and non-tender Extremity Extremity Narrative: Trace lower extremity edema, no cyanosis or clubbing, pedal and radial pulses are 2+ bilaterally, right lower extremity is shortened and externally rotated Neuro oriented x3 and no focal motor deficits Neuro Narrative: Unable to move right lower extremity moves all other extremities without difficulty Speech: speech normal Psych affect normal Psych Narrative: Very pleasant, eye contact is good and patient interacts appropriately Assessment & Plan Assessment/Plan (1) Fracture of femoral neck, right, closed: QUALIFIERS: Encounter type: initial encounter Qualified Code(s): S72.001A - Fracture of unspecified part of neck of right femur, initial encounter for closed fracture PLAN: Plan Right femoral neck fracture-suspect pathological fracture with metastatic prostate cancer - Hold aspirin - OR today with Dr. Hamilton - Continue scheduled Tylenol - Continue as needed oxycodone - DVT prophylaxis per primary service postoperatively - PT/OT consultation postoperatively - Social work/case management consultation for assistance with either home health or placement after discharge depending on functional status - Per discussion with him both he and his do ambulate with canes and it sounds like they both may be frail Chronic HFrEF - Most recent echocardiogram from 03/12/2024 shows an EF of 35% - Hold Jardiance, Lasix, Aldactone, Entresto and restart postoperatively if able - Monitor closely in the perioperative period for volume overload Essential hypertension/hyperlipidemia - Continue home beta-keisha - Continue home statin - Continue home aspirin Chronic LBBB - last left heart catheterization 11/23/2023 demonstrating 60% smooth stenosis in the mid RCA and mild luminal irregularities in the distal RCA, circumflex artery, LAD - monitor post-op 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 Mcgee - bone supportive therapy with zoledronic acid every 12 weeks - monitor for post-op retention DM-2 - hold Jardiance perioperatively and restart post op - Last a1c 5.7 on 10/25/24 - Thrombocytopenia - plts down but stable - likely related to consumption with fracture DVT Prophylaxis - SCD's - post op chemoprophylaxis per ortho Code Status -FULL CODE--> will remain full code after extensive discussion Charges/Coding Visit Charges Inpatient E&M: 43992 Subs Hosp L2 12/19/24 1544 <Electronically signed by Radha Cope DO> Cosigner Signature (if applicable): CC: ~ Signed [facility] Work Phone: 1(424) 330-317707-29-2025 Procedure note [facility] Medical Records Department [address] [place] [address] Operative Report 12/19/24 1642 MR#: [id number] Acct: [id number] Name: JESS JAMES Rep #:[id number] : 1935 89 From: Bj Hamilton MD PCP: Dr. Dyan Kyle MD Status:A DM IN Location: MS3 [id number] Procedures Musculoskeletal 20xxx-29xxx: Other Procedure See Report Operative Report (Standard) Operative Information Date of Procedure: 12/19/24 Pre-Operative Diagnosis: Right femoral neck fracture, transcervical, displaced Post-Operative Diagnosis: Same Surgery/Procedure Performed: Right hip cemented hemiarthroplasty business applications developer: Yes Mine Inspector Federal: Linda Bernstein Tasks completed by roofer assistant: Closing, Removing tissue, Implanting device, Hemostasis: Electrocautery and Retracting Type of Anesthesia: General RN Documented Start/Stop Times: Operation Date: 12/19/24 13:30 Case Time Into Pre-Op 12/19/24 13:02 Anesthesia Start 12/19/24 13:50 Into Room 12/19/24 13:50 Procedure Start 12/19/24 14:27 Procedure End 12/19/24 16:24 Anesthesia End 12/19/24 16:31 Out of Room 12/19/24 16:31 Into Recovery 12/19/24 16:35 Procedure Start Time: 14:27 Procedure Stop Time: 16:24 Select all DRAINS/GRAFTS/IMPLANTS that apply: Prosthetic device Prosthetic device details: Frances Accolade C cemented hip hemiarthroplasty Estimated Blood Loss: 50 cc Specimen collected: No Description of surgery: PRINCIPAL PRE-OP DIAGNOSIS: Right displaced FEMORAL NECK FRACTURE PRINCIPAL POST-OP DIAG: Same PRINCIPAL PROCEDURE: Right cemented HIP HEMIARTHROPLASTY CPT 66903 Surgeon: Bj Hamilton MD ANESTHESIA: General Anesthesia Record E.B.L. 50 SPECIMENS: None COMPLICATIONS: None DISPOSITION: PACU then potentially floor Implants: [place] Accolade C cemented femoral stem, bipolar head OPERATIVE REPORT: INDICATION FOR SURGERY: Patient sustained a ground-level fall on the right hip with a subsequent displaced right femoral neck fracture. After discussion with the patient as well as family risk, patient elected for operative intervention with a hemiarthroplasty. Risks were discussed with the patient family including but not limited to blood loss, infection, nerve damage,instability, need for revision surgery, intraoperative fracture, cardiac arrest,. Patient signed consentfor surgery. Patient was evaluated preoperatively by anesthesia who deemed the patient medically appropriate for the operating room. PROCEDURE: The patient was brought to the operating room and initial timeout wasperformed prior to induction of anesthesia. After confirming the patient's side,patient name with 2 unique identifiers as well as surgical plan, the patient wassedated per the anesthesiologist and intubated. Preoperative IV antibiotic was given. Patient was then placed in left lateral decubitus position with a beanbagand all bony prominences well-padded. The right lower extremity was sterilely prepped and draped instandard fashion. A second confirmatory timeout was completed which the patient's name and identification with 2 unique identifiers as well as the appropriate side and procedure was confirmed by every one in the operating room. A standard posterior approach to the hip was performed with sharp dissection through the IT band and fascia. The piriformis tendon and some of the short external rotators were released off of the right hip and tagged. Capsulotomy was performed and tagging stitch was also placed in the capsule. The femoral neck was then cut 1 cm proximal to the lesser trochanter. The femoral head was then removed. The head measured a 54 and a trial of 54 and 55 mm were used. 55 mm headappeared to have a more stable fit.Next the femoral canal was prepped, the canal was broached up toa size 4 stem which had stable fixation. The canal was then prepped and a size 4 stem was cemented into the femur. After the cement was hard, a 26 shell standard offset, 0 neck was trialed which had appropriate leg length, range of motion, and stability. Trial was then removed the acetabulum was irrigated to ensure there was no cement in the acetabulum. A 26 shell with a 55 head standard offset, 0 neck was then placed and hip was reduced. Stability was then confirmed as well as leg length and range of motion which were all adequate and appropriate. The wound was then again irrigated with Pulsavac saline. Betadine solution was then placed in the wound for 5 minutes & washed off. Irriseptsolution was then placed in the wound for 1 minutes & washed off. The short external rotators we rerepaired as well as the capsule through 3 drill holes in the greater trochanter.Pain cocktail wasthen injected into the local soft tissues. The wound was thenclosed in layered fashion with interrupted0 Vicryl, #2 strata fix for deep fascia, 2-0 Vicryl for subcutaneous. And the skin was closed with dutch. Woundwas covered with mepilex dressing. The patient was awoken from anesthesia which they tolerated well. Patient was then taken to the PACU in stable fashion. Patient will be weightbearing as tolerated with posterior hip precautions of theright lower extremity. They will complete a course of postoperative DVT prophylaxis. We will see them back in clinic in 2 weeks for x-rays, wound check. Surgical Findings: See operative note Complications Complications: No 12/19/24 1645 Cosigner Signature (if applicable): CC: Dr. Amado Jean DO; Dr. Bj Hamilton MD; Dr. Dyan Kyle MD~ Signed [facility]07-29-2025 Consult note [facility] Medical Records Department [address] [place] [address] Anesthesia Postop Eval I 12/19/24 163 MR#: [id number] Acct: [id number] Name: JESS JAMES Rep #:[id number] : 1935 89 From: Wanda jensen CRNA PCP: Dr. Dyan Kyle MD Status:A DM IN Y Race: C Location: [place] [address] Anesthesia: Postop Eval I Current Vital Signs Temperature: 98.1 F Pulse Rate: 74 Blood Pressure: 146/95 Respiratory Rate: 16 Pulse Ox: 99 Oxygen Delivery Method: Simple Mask Oxygen Flow Rate (L/min): 6 Assessment Airway patent: Yes Spontaneous unlabored respirations: Yes Mental status: Asleep nausea: No Vomiting: No Anesthesia Complication: No Fluid Hydration Crystalloid volume administer (ml): 900 Total IV fluid infused: 900 Progress Note Anesthesia document: Postop Eval 1 completed: Yes 12/19/24 163 jaime DAIRY POWDER MIXER OPERATOR> Date _ Wanda Garcia DAIRY POWDER MIXER OPERATOR Cosigner Signature: Date CC: ~ Signed [facility]07-29-2025 Radiology Diagnostic study note [facility] Imaging Services [address] [place] [address] Hip 1 view with Pelvis MR#: [id number] Acct: [id number] Name: JESS JAMES Rep #: [id number] : 1935 M 89 From: Sanchez Aguayo MD PCP: Dr. Dyan Kyle MD Status: A DM IN Study:Hip 1 view with Pelvis Date of Exam: 12/19/24 Exam# [id number] Ordering Dr: Keysha Hamilton MD PROCEDURE: HIP 1 VIEW WITH PELVIS 12/19/2024 REASON FOR EXAM: HIP HEMIARTHROPLASTY TECHNIQUE: Single intraoperative view of the right hip COMPARISON: Preoperative study of 12/18/2024 RAD/Hip 1 view with Pelvis IMPRESSION: Interval placement a right proximal femoral endoprosthesis. No complication is seen on the solitaryview obtained. Reading Location: [place] [address] CC: Dr. Bj Hamilton MD; Dr. Dyan Kyle MD ~ Terrazzo Roller: Signed [facility]07-29-2025 Progress note [facility] Medical Records Department [address] [place] [address] Progress Note - Hospitalist 12/19/24 0742 MR#: [id number] Acct: [id number] Name: JESS JAMES Rep #:[id number] : 1935 89 From: Radha Cope DO PCP: Dr. Dyan Kyle MD Status:A DM IN Location: [place] [address] Reason for Visit Chief Complaint: Fall with right hip pain Subjective Subjective Patient states that he is having some discomfort in the hip overnight. Plan is for OR later today. Extensive discussion with regards to CODE STATUS given metastatic disease, age, and for EF. Patient elects to remain full code at thistime despite extensive description of what cardiopulmonary arrest entails with regards to resuscitation and long-term outcomes. Objective Data Objective Data Vital Signs: Vital Signs Temp Pulse Resp BP Pulse Ox O2 Del Method O2 Flow Rate 98.4 F 62 18 109/56 L 96 Room Air 2 12/19/24 05:17 12/19/24 05:17 12/19/24 05:17 12/19/24 05:17 12/19/24 05:17 12/19/24 05:18 12/18/24 15:56 Oxygen Flow Rate (L/min) 2 Oxygen Delivery Method Room Air Weight: 81.238 kg Body Mass Index (BMI) 25.7 Intake & Output: Intake and Output for Last 24 Hours 12/17/24 12/18/24 12/19/24 23:59 23:59 23:59 Output Total 250 / 650 700 / 700 Balance -250 / -650 -700 / -700 Lab / Micro Data 12/19/24 04:50 12/19/24 04:50 Labs: Laboratory Results - last 24 hr 12/18/24 14:15: WBC 6.2, RBC 3.82 L, Hgb 13.3, Hct 39.9 L, MCV 104.5 H, MCH 34.8H, MCHC 33.3, RDW Std Deviation 50.2 H, RDW Coeff of Danilo 13.1, Plt Count 120 L, MPV 9.5, Immature Gran % (Auto) 0.600, Neut % (Auto) 64.2, Lymph % (Auto) 28.2, Terry % (Auto) 5.6, Eos % (Auto) 1.1, Baso % (Auto) 0.3, Absolute Neuts (auto) 4.0, Absolute Lymphs (auto) 1.75, Nucleated RBC % 0, Sodium 142, Potassium 4.2, Chloride 110 H, Carbon Dioxide 19.5 L, Anion Gap 12, BUN 25 H, Creatinine 1.05, Estim Creat Clear Calc 51.18, Est GFR (MDRD) Non-Af 69, BUN/Creatinine Ratio 23.4 H, Glucose 114 H, Calcium 8.7, Total Bilirubin 0.51, Direct Bilirubin 0.21,AST 17, ALT 7, Alkaline Phosphatase 44, NT pro BNP II 1126, Total Protein 6.0, Albumin 3.3 L, Globulin 2.7 12/18/24 16:22: PT 14.8, INR 1.1, APTT 30.4 12/18/24 16:40: Urine Color Yellow, Urine Clarity Clear, Urine pH 7.0, Ur Specific [place] 1.010, Urine Protein 15 H, Urine Glucose (UA) 1000 H, Urine Ketones 15 H, Urine Occult Blood 10 H, Urine Nitrite Negative, Urine Bilirubin Negative, Urine Urobilinogen Normal, Ur Leukocyte Esterase Negative, Urine RBC 0-5 SEEN, Urine WBC 0 SEEN, Ur Squamous Epith Cells 0 SEEN, Urine Bacteria 0 SEEN, Urine Mucus 0 SEEN 12/19/24 04:50: WBC 7.3, RBC 3.48 L, Hgb 12.1 L, Hct 35.8 L, MCV 102.9 H, MCH 34.8 H, MCHC 33.8, RDW Std Deviation 49.3 H, RDW Coeff of Danilo 13.2, Plt Count 127 L, MPV 10.1, Sodium 142, Potassium 3.8,Chloride 109 H, Carbon Dioxide 22.6,Anion Gap 11, BUN 24 H, Creatinine 1.04, Estim Creat Clear Calc51.67, Est GFR (MDRD) Non-Af 69, BUN/Creatinine Ratio 23.2 H, Glucose 122 H, Calcium 8.4, BloodTypeA NEGATIVE, Antibody Screen NEGATIVE Radiography Diagnostic Testing: Radiology Impression Chest X-Ray 12/18/24 13:15 IMPRESSION: Cardiomegaly. Findings suggestive of scarring in both lungs. Reading Location: [facility] Hip/Pelvis X-Ray 12/18/24 13:15 IMPRESSION: There is a fracture through the right femoral neck with 0.9 cm impaction. Critical results were discussed with Dr. Alberto by Dr. Bello at the time of dictation. Reading Location: [facility] Physical Exam Const alert, oriented x3, no apparent distress, average body habitus and well nourished Constitutional Narrative: Elderly, white male, sitting up in bed, appears comfortable as long as he is notmoving his right lower extremity, nontoxic, very pleasant HEENT head/scalp atraumatic and moist oral mucous membranes Head and Scalp: normocephalic Resp normal respiratory effort, no retractions, no use of accessory muscles and clearto auscultation bilaterally Auscultation: Negative for rales, rhonchi or wheezes Cardio regular rate, regular rhythm, S1 normal heart sound, S2 normal heart sound, no murmurs, no rub, no gallops and no clicks GI normal to inspection, nondistended, normoactive bowel sounds, soft to palpation and non-tender Extremity Extremity Narrative: Trace lower extremity edema, no cyanosis or clubbing, pedal and radial pulses are 2+ bilaterally, right lower extremity is shortened and externally rotated Neuro oriented x3 and no focal motor deficits Neuro Narrative: Unable to move right lower extremity moves all other extremities without difficulty Speech: speech normal Psych affect normal Psych Narrative: Very pleasant, eye contact is good and patient interacts appropriately Assessment & Plan Assessment/Plan (1) Fracture of femoral neck, right, closed: QUALIFIERS: Encounter type: initial encounter Qualified Code(s): S72.001A - Fracture of unspecifiedpart of neck of right femur, initial encounter for closed fracture PLAN: Plan Right femoral neck fracture-suspect pathological fracture with metastatic prostate cancer - Hold aspirin - OR today with Dr. Hamilton - Continue scheduled Tylenol - Continue as needed oxycodone - DVT prophylaxis per primary service postoperatively - PT/OT consultation postoperatively - Social work/case management consultation for assistance with either home health or placement after discharge depending on functional status - Per discussion with him both he and his do ambulate with canes and it sounds like they both may be frail Chronic HFrEF - Most recent echocardiogram from 03/12/2024 shows an EF of 35% - Hold Jardiance, Lasix, Aldactone, Entresto and restart postoperatively if able - Monitor closely in the perioperative period for volume overload Essential hypertension/hyperlipidemia - Continue home beta-keisha - Continue home statin - Continue home aspirin Chronic LBBB - last left heart catheterization 11/23/2023 demonstrating 60% smooth stenosis in the mid RCA and mild luminal irregularities in the distal RCA, circumflex artery, LAD - monitor post-op 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 Mcgee - bone supportive therapy with zoledronic acid every 12 weeks - monitor for post-op retention DM-2 - hold Jardiance perioperatively and restart post op - Last a1c 5.7 on 10/25/24 - Thrombocytopenia - plts down but stable - likely related to consumption with fracture DVT Prophylaxis - SCD's - post op chemoprophylaxis per ortho Code Status -FULL CODE--> will remain full code after extensive discussion Charges/Coding Visit Charges Inpatient E&M: 93044 Subs Hosp L2 12/19/24 1544 Cosigner Signature (if applicable): CC: ~ Signed [facility]07-29-2025 Consult note Author Bernardino Brian [facility] Note Date/Time December 19, 2024 1:33 pm [facility] Medical Records Department [address] [place] [address] Pre-Anesthesia Evaluation 12/19/24 1318 MR#: [id number] Acct: [id number] Name: JESS JAMES Rep #:[id number] : [id number] From: Bernardino Brian MD PCP: Dr. Dyan Kyle MD Status:A DM IN Y Race: C Location: [address] ASA Classification* ASA Classification ASA Classification: 3 Assessment & Plan Anesthesia* Anesthesia Assessment Anesthesia Assessment: Discussed sedation and/or anesthesia options, risks, benefits, and alternatives with patient/parents/legal guardian/POA. Questions invited. The patient/parents/legal guardian/POA seems to understand and agrees to proceedwith anesthesia plan. Reviewed the physical assessment, medical history, allergy history and patient home medications list prior to surgery/procedure/anesthetic and documented any changes. Performed airway and anesthesia risk assessments. Anesthesia Type Anesthesia Type: General History Source History Obtained from:: Patient and Chart Anesthesia Focused Assessment* Temperature: 98.4 F Pulse Rate: 62 Blood Pressure: 113/57 Respiratory Rate: 15 Pulse Ox: 92 Oxygen Delivery Method: Room Air Oxygen Flow Rate (L/min): 2 Airway Assessment Mouth opens: >3 cm Mallampati Score: I Teeth Condition: Caps/Crowns (Patient has 1 crown it is tight.) Neck Range of motion (ROM): Limited ROM (Somewhat Decreased) Labs Anesthesia Preop lab: CBC WBC 7.3 K/mm3 (4.4-11.0) 12/19/24 04:50 12/19/24 RBC 3.48 M/mm3 (4.6-6.2) L 12/19/24 04:50 12/19/24 Hgb 12.1 g/dL (13.0-16.5) L 12/19/24 04:50 5 Hct 35.8 % (40-54) L 12/19/24 04:50 12/19/24 Plt Count 127 K/mm3 (150-450) L 12/19/24 04:50 12/19/24 CHEMISTRY Potassium 3.8 mmol/L (3.3-5.1) 12/19/24 04:50 12/19/24 Sodium 142 mmol/L (133-145) 12/19/24 04:50 12/19/24 Magnesium 2.2 mg/dL (1.6-2.6) 11/14/23 18:47 11/14/23 Phosphorus 3.2 mg/dL (2.5-4.9) 11/12/23 15:45 11/12/23 BUN 24 mg/dL (4-19) H 12/19/24 04:50 12/19/24 Creatinine 1.04 mg/dL (0.70-1.20) 12/19/24 04:50 12/19/24 Glucose 122 mg/dL (70-99) H 12/19/24 04:50 12/19/24 POC Glucose 117 mg/dL (74-106) H 12/19/24 11:40 12/19/24 TSH 2.36 uIU/mL (0.358-3.74) 11/13/23 06:19 COAG PT 14.8 SECONDS (11.7-14.9) 12/18/24 16:22 Pre-Assessment Diagnosis/Proposed Procedure Planned Operative Procedure(s): Right hip hemiarthroplasty. 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 When Was Last Pacemaker Check QUESTION #4 FULL TEXT: You/Your Family Experience fever (hyperthermia) with Anesthesia Last Oral Intake Last Oral intake: Last Oral Intake NPO since 00:01 12/19/24 10:42 Meds taken in AM with sips of No 12/19/24 10:42 water? Meds patient instructed to take am of surgery Any additional information?: Yes Meds taken in AM with sips of water?: No PONV PONV - political organizer: PONV - political organizer Female HX of Motion Sickness HX of N/V After Surgery Non-Smoker Duration of Surgery greater than 60 minutes Number of Risk Factors PONV Score Height & Weight Height & Weight: Anesthesia: Height & Weight Height 5 ft 10 in 12/19/24 10:42 Weight: 81.238 kg 12/19/24 10:42 Body Mass Index (BMI) 25.7 12/19/24 10:42 Respiratory Assessment Respiratory Assessment - political organizer: Respiratory Tract Infection Hx - political organizer Hx Respiratory Tract Infection No 12/19/24 10:42 STOP Sleep Apnea STOP Sleep Apnea - political organizer: STOP Sleep Apnea - political organizer Hx Hypertension No 12/18/24 15:28 Hx Sleep Apnea No 12/18/24 15:28 CPAP BIPAP Do you snore loudly (louder No 12/18/24 15:28 than talking or can be heard Do you often feel tired/ Yes 12/18/24 15:28 fatigued/ sleepy during daytime? Has anyone observed you stop No 12/18/24 15:28 breathing during sleep? STOP Results Negative 12/18/24 15:28 QUESTION #5 FULL TEXT : Do you snore loudly (louder than talking or can be heard through closed doors)? 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 Specify any problems Hx of Preganancy in last 3 N/A 12/18/24 15:28 Months Nurse Filling Out Transfusion FSTEINER 12/18/24 15:28 & Questions: Date: 12/18/24 12/18/24 15:28 Time: 15:31 12/18/24 15:28 Patient unable to answer at this time (ie. confused, unrespo /Reproduction History /Reproductive History - political organizer: /Reproductive Hx- political organizer Hx Now No 12/19/24 10:42 Gestational Age (in weeks): EDC: Hx Hx Para Hx Section SAB Active Medications Active Medications: Current Medications Generic Name Dose Route Start Last Admin Trade Name Freq PRN Reason Stop Dose Admin Acetaminophen 1,000 mg 12/18/24 17:00 12/19/24 05:20 Acetaminophen 500 Mg Tablet PO Not Given Q8 NURIS Aspirin 81 mg 12/20/24 08:00 Aspirin E.C. 81 Mg Tablet PO BREAKFAST NURIS Atorvastatin Calcium 10 mg 12/18/24 22:00 12/18/24 21:58 Atorvastatin Calcium 10 Mg Tablet PO 10 mg QHS NURIS Administration Carvedilol 25 mg 12/18/24 17:00 12/19/24 09:04 Carvedilol 25 Mg Tablet PO Not Given BIDCM NURIS Protocol Empagliflozin 10 mg 12/20/24 10:00 Empagliflozin 10 Mg Tablet PO DAILY NURIS Furosemide 40 mg 12/20/24 10:00 Furosemide 40 Mg Tablet PO DAILY NURIS Protocol Hydromorphone HCl 0.5 mg 12/18/24 16:06 Hydromorphone 0.5 Mg/0.5 Ml Syringe IV Q4H PRN PRN Pain Score 6-10 Sodium Chloride 250 mls @ 15 mls/hr 12/18/24 15:40 IV .[id number] PRN Saline Flush Sodium Chloride 250 mls @ 15 mls/hr 12/18/24 15:40 IV .[id number] PRN Additional IVPB Infusion Lactated Ringer's 1,000 mls @ 15 mls/hr 12/19/24 13:15 12/19/24 13:06 IV 15 mls/hr .Q48H NURIS Administration Melatonin 3 mg 12/18/24 16:06 Melatonin 3 Mg Tablet PO QHS PRN PRN INSOMNIA Ondansetron HCl 4 mg 12/18/24 16:06 Ondansetron 4 Mg/2 Ml Vial IV Q8H PRN PRN NAUSEA/VOMITING Oxycodone HCl 5 mg 12/18/24 16:06 Oxycodone 5 Mg Tablet PO Q4H PRN PRN Pain Score 4-10 Sacubitril/Valsartan 1 each 12/20/24 10:00 Sacubitril/Valsartan 49-51 Mg Tablet PO BID NURIS Senna 1 tablet 12/18/24 22:00 12/19/24 07:09 Senna Tablet PO Not Given BID NURIS Sodium Chloride 10 - 40 ml 12/18/24 15:40 0.9% Saline Lock 10 Ml Syringe IV UD PRN SALINE FLUSH Spironolactone 25 mg 12/20/24 12:00 Spironolactone 25 Mg Tablet PO LUNCH [facility] Protocol PFSH Medical History (Updated 12/19/24 @ 13:[address] Bernardino Brian MD) Left humeral fracture Diabetes Difficulty swallowing Non-smoker Irregular heart beat Cutaneous horn Congestive heart failure (CHF) Bradycardia Driving safety issue Complete left bundle branch block Cardiomyopathy Bilateral lower extremity edema Dyspnea Carotid arterial disease Carotid artery bruit Arrhythmia Venous insufficiency of both lower extremities Metastasis to bone Prostate cancer Abnormal CT of the abdomen Bone cancer Pathologic fracture of humerus Nondisplaced transverse fracture of shaft of humerus, left arm, initial encounter for closed fracture History of diabetes mellitus Elevated PSA BPH (benign prostatic hyperplasia) Weight loss, non-intentional Flu vaccine need Hypertension Change in skin mole Type 2 diabetes mellitus Bone fracture Home Medications ?Medication ?Instructions ?Recorded ?Last Taken ?Type enzalutamide 80 mg tablet (Xtandi) 160 mg PO QHS chemo 03/24/23 12/18/24 History empagliflozin 10 mg tablet 10 mg PO DAILY 30 days #30 tabs 02/16/24 Unknown Rx (Jardiance) spironolactone 25 mg tablet 25 mg PO LUNCH 90 days #90 tabs 06/29/24 Unknown Rx aspirin 81 mg tablet,delayed 81 mg PO QDAY #90 tabs Unknown Rx release (Adult Aspirin Regimen) atorvastatin 10 mg tablet 10 mg PO QDAY #90 tabs 09/13 Unknown Rx furosemide 40 mg tablet 40 mg PO DAILY 10/25/24 Unkn own History sacubitril 49 mg-valsartan 51 mg 1 tab PO BID #60 tabs 11/20/24 Unknown Rx tablet (Entresto) carvedilol 25 mg tablet 25 mg PO BID 30 days #180 ta bs 12/11/24 Unknown Rx Allergy/AdvReac Type Severity Reaction Status Date / Time shellfish derived Allergy Mild swelling Verified 12/19/24 13:02 in throat Family History Father Melanoma Mother Ovarian cancer Surgical History History of dental surgery Social History household members: spouse Smoking Status: Never smoker alcohol intake: never substance use type: does not use what type of physical activity do you participate in: none Review of Systems (Anesthesia) ROS Narrative System reviewed and no additional complaints, except as documented. 12/19/24 1333 <Electronically signed by Bernardino bermudez MD> Date _ Bernardino Brian MD Cosigner Signature: Date CC: ~ Signed [facility] Work Phone: [phone]) 461-346707-29-2025 Consult note Author Bj Hamilton [facility] Note Date/Time December 19, 2024 12:4 9pm [facility] Medical Records Department [address] [place] [id number] Consultation - Orthopedics 12/19/24 1243 MR#: [id number] Acct: [id number] Name: JESS JAMES Rep #:[id number] : 1935 89 From: Bj Hamilton MD PCP: Dr. Dyan Kyle MD Status:A DM IN [place] [facility] [place] [facility] HPI Consult Data Date of Consult: 12/19/24 HPI Narrative HPI Narrative: JESS JAMES, is a 89 M who presents with right hip pain after fall. Patient had a fall when his fell towards him yesterday at the parking lot. This was a ground-level fall. He was brought in and was found to have right femoral neck fracture. I was consulted for orthopedics. Saw the patient today in [facility]. Patient had some balance issues and was able to walk with 2 canes or a walker over the last year. He was predominantly household ambulator. He had a right tibia fracture many years ago which was treated conservatively. He had a left humerus fracture likely metastatic from prostate cancer which also healed nonoperatively. He is on Xtandi for chemotherapy for prostate cancer. He has known baseline bilateral pedal edema which may likely be from cardiac comorbidities. Patient is on baby aspirin. Medical history significant for HFrEF and prostate cancer. Patient follows withDr. Mcgee, last office visit on 11/07. 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 Has now been on androgen deprivation therapy since March 2023 as well as zoledronic acid and has responded very well. He was found to have new onset acute heart failure with EF 10 to 15% in October 2023. Has been following with our cardiology group since then. 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 Had fairly good recovery of ejection fraction with medical therapy with most recent EF 35% in February 2024. [facility] Medical History (Updated 12/19/24 @ 12:[address] Bj Hamilton MD) Diabetes Difficulty swallowing Non-smoker Irregular heart beat Cutaneous horn Congestive heart failure (CHF) Bradycardia Driving safety issue Complete left bundle branch block Cardiomyopathy Bilateral lower extremity edema Dyspnea Carotid arterial disease Carotid artery bruit Arrhythmia Venous insufficiency of both lower extremities Metastasis to bone Prostate cancer Abnormal CT of the abdomen Bone cancer Pathologic fracture of humerus Nondisplaced transverse fracture of shaft of humerus, left arm, initial encounter for closed fracture History of diabetes mellitus Elevated PSA BPH (benign prostatic hyperplasia) Weight loss, non-intentional Flu vaccine need Hypertension Change in skin mole Type 2 diabetes mellitus Bone fracture Home Medications ?Medication ?Instructions ?Recorded ?Last Taken ?Type enzalutamide 80 mg tablet (Xtandi) 160 mg PO QHS chemo 03/24/23 11/11/23 History empagliflozin 10 mg tablet 10 mg PO DAILY 30 days #30 tabs 02/16/24 Unknown Rx (Jardiance) spironolactone 25 mg tablet 25 mg PO LUNCH 90 days #90 tabs 06/29/24 Unknown Rx aspirin 81 mg tablet,delayed 81 mg PO QDAY #90 tabs Unknown Rx release (Adult Aspirin Regimen) atorvastatin 10 mg tablet 10 mg PO QDAY #90 tabs 09/13 Unknown Rx furosemide 40 mg tablet 40 mg PO DAILY 10/25/24 Unkn own History sacubitril 49 mg-valsartan 51 mg 1 tab PO BID #60 tabs 11/20/24 Unknown Rx tablet (Entresto) carvedilol 25 mg tablet 25 mg PO BID 30 days #180 ta bs 12/11/24 Unknown Rx Allergy/AdvReac Type Severity Reaction Status Date / Time shellfish derived Allergy Mild swelling Verified 12/18/24 11:54 in throat Family History Father Melanoma Mother Ovarian cancer Surgical History History of dental surgery Social History household members: spouse Smoking Status: Never smoker alcohol intake: never substance use type: does not use what type of physical activity do you participate in: none Vital Signs Vital Signs Vital Signs: 12/18/24 13:51 12/18/24 15:00 12/18/24 15:03 Temperature 97.8 F Temperature Source Pulse Rate 58 L 50 L 59 L Pulse Strength Respiratory Rate 16 16 16 Respiratory Effort Respiratory Depth Respiratory Pattern Blood Pressure 146/82 H 158/86 H 144/87 H Blood Pressure Mean 103 110 106 Blood Pressure Source Blood Pressure Position Blood Pressure Location Pulse Ox 99 98 98 Oxygen Delivery Method Oxygen Flow Rate (L/min) 12/18/24 15:43 12/18/24 15:56 12/18/24 22:00 Temperature 98.2 F 97.7 F L Temperature Source Oral Oral Pulse Rate 65 60 61 Pulse Strength Respiratory Rate 18 16 Respiratory Effort Normal Respiratory Depth Respiratory Pattern Blood Pressure 162/61 H 117/69 Blood Pressure Mean 94 85 Blood Pressure Source Monitor Monitor Blood Pressure Position Semi-Fowlers Semi-Fowlers Blood Pressure Location Right Arm Right Arm Pulse Ox 100 96 Oxygen Delivery Method Nasal Cannula Nasal Cannula Room Air Oxygen Flow Rate (L/min) 2 2 12/18/24 22:00 12/19/24 05:17 12/19/24 05:18 Temperature 98.4 F Temperature Source Oral Pulse Rate 62 Pulse Strength Respiratory Rate 18 Respiratory Effort Normal Non-Labored Respiratory Depth Normal Respiratory Pattern Normal Blood Pressure 109/56 L Blood Pressure Mean 73 Blood Pressure Source Monitor Blood Pressure Position Semi-Fowlers Blood Pressure Location Left Arm Pulse Ox 96 Oxygen Delivery Method Room Air Room Air Room Air Oxygen Flow Rate (L/min) 12/19/24 09:02 12/19/24 09:52 12/19/24 10:00 Temperature 98.4 F Temperature Source Oral Pulse Rate 62 Pulse Strength Normal (2+) Respiratory Rate 15 Respiratory Effort Respiratory Depth Respiratory Pattern Blood Pressure 113/57 L Blood Pressure Mean 75 Blood Pressure Source Monitor Blood Pressure Position Semi-Fowlers Blood Pressure Location Left Arm Pulse Ox 92 Oxygen Delivery Method Room Air Room Air Oxygen Flow Rate (L/min) Weight Weight: 179 lb 1.6 oz Body Mass Index (BMI) 25.7 Physical Exam Narrative Exam to the right lower extremity shows shortening, external rotation, pain around the right hip with tenderness. No obvious bruises or skin break around the right hip. Bruises noticed around her olecranon bilaterally with no significant swelling and full range of motion. Distal neurovascular exam in theright lower extremity is intact. Bilateral pedal edema noticed. Lab / Micro Data 12/19/24 04:50 12/19/24 04:50 Labs: Laboratory Results - last 24 hr 12/18/24 14:15: WBC 6.2, RBC 3.82 L, Hgb 13.3, Hct 39.9 L, MCV 104.5 H, MCH 34.8H, MCHC 33.3, RDW Std Deviation 50.2 H, RDW Coeff of Danilo 13.1, Plt Count 120 L, MPV 9.5, Immature Gran % (Auto) 0.600, Neut % (Auto) 64.2, Lymph % (Auto) 28.2, Terry % (Auto) 5.6, Eos % (Auto) 1.1, Baso % (Auto) 0.3, Absolute Neuts (auto) 4.0, Absolute Lymphs (auto) 1.75, Nucleated RBC % 0, Sodium 142, Potassium 4.2, Chloride 110 H, Carbon Dioxide 19.5 L, Anion Gap 12, BUN 25 H, Creatinine 1.05, Estim Creat Clear Calc 51.18, Est GFR (MDRD) Non-Af 69, BUN/Creatinine Ratio 23.4 H, Glucose 114 H, Calcium 8.7, Total Bilirubin 0.51, Direct Bilirubin 0.21,AST 17, ALT 7, Alkaline Phosphatase 44, NT pro BNP II 1126, Total Protein 6.0, Albumin 3.3 L, Globulin 2.7 12/18/24 16:22: PT 14.8, INR 1.1, APTT 30.4 12/18/24 16:40: Urine Color Yellow, Urine Clarity Clear, Urine pH 7.0, Ur Specific [place] 1.010, Urine Protein 15 H, Urine Glucose (UA) 1000 H, Urine Ketones 15 H, Urine Occult Blood 10 H, Urine Nitrite Negative, Urine Bilirubin Negative, Urine Urobilinogen Normal, Ur Leukocyte Esterase Negative, Urine RBC 0-5 SEEN, Urine WBC 0 SEEN, Ur Squamous Epith Cells 0 SEEN, Urine Bacteria 0 SEEN, Urine Mucus 0 SEEN 12/19/24 04:50: WBC 7.3, RBC 3.48 L, Hgb 12.1 L, Hct 35.8 L, MCV 102.9 H, MCH 34.8 H, MCHC 33.8, RDW Std Deviation 49.3 H, RDW Coeff of Danilo 13.2, Plt Count 127 L, MPV 10.1, Sodium 142, Potassium 3.8, Chloride 109 H, Carbon Dioxide 22.6,Anion Gap 11, BUN 24 H, Creatinine 1.04, Estim Creat Clear Calc 51.67, Est GFR (MDRD) Non-Af 69, BUN/Creatinine Ratio 23.2 H, Glucose 122 H, Calcium 8.4, BloodType A NEGATIVE, Antibody Screen NEGATIVE 12/19/24 11:40: POC Glucose 117 H Imaging Radiology Impression Chest X-Ray 12/18/24 13:15 IMPRESSION: Cardiomegaly. Findings suggestive of scarring in both lungs. Reading Location: [id number] Hip/Pelvis X-Ray 12/18/24 13:15 IMPRESSION: There is a fracture through the right femoral neck with 0.9 cm impaction. Critical results were discussed with Dr. Alberto by Dr. Bello at the time of dictation. Reading [facility] Assessment & Plan Assessment/Plan (1) Fracture of femoral neck, right, closed: QUALIFIERS: Encounter type: initial encounter Qualified Code(s): S72.001A - Fracture of unspecified part of neck of right femur, initial encounter for closed fracture PLAN: Plan I reviewed the x-rays of the pelvis and hip done in the ER yesterday. These showed right femoral neck fracture, transcervical, displaced. Discussed imaging findings in detail. Explained to him that patient has intracapsular femoral neck fracture which is displaced. Explained to patient that this is a surgical injury and will require surgical treatment. Hemiarthroplasty was recommended and discussed in detail. All risk benefits andalternatives were discussed. The risks include but are not limited to infection, bleeding, injury to nerves and vessels, sciatic nerve injury, foot drop, hematoma formation, need for further surgery, need for total hip replacement in future, periprosthetic fracture, cement embolism, DVT, pulm embolism, cardiopulmonary event, . Patient understands and agrees to proceed with surgery. All questions were answered with the patient and family. Charges/Coding Visit Charges Inpatient E&M: 67547 Init Hosp L3 12/19/24 1249 <Electronically signed by Bj Hamilton MD> Cosigner Signature (if applicable): CC: Dr. Dyan Kyle MD; Dr. Radha Cope, DO~ Signed [facility] Work Phone: [phone] Consult note [facility] Medical Records Department [address] [place] [id number] Pre-Anesthesia Evaluation 12/19/24 1318 MR#: [id number] Acct: [id number] Name: JESS JAMES Rep #:[id number] : 1935 89 From: Bernardino Brian MD PCP: Dr. Dyan Kyle MD Status:A DM IN Y Race: C [facility] -[facility] ASA Classification* ASA Classification ASA Classification: 3 Assessment & Plan Anesthesia* Anesthesia Assessment Anesthesia Assessment: Discussed sedation and/or anesthesia options, risks, benefits, and alternatives with patient/parents/legal guardian/POA. Questions invited. The patient/parents/legal guardian/POA seems to understand and agrees to proceedwith anesthesia plan. Reviewed the physical assessment, medical history, allergy history and patient home medications list prior to surgery/procedure/anesthetic and documented any changes. Performed airway and anesthesia risk assessments. Anesthesia Type Anesthesia Type: General History Source History Obtained from:: Patient and Chart Anesthesia Focused Assessment* Temperature: 98.4 F Pulse Rate: 62 Blood Pressure: 113/57 Respiratory Rate: 15 Pulse Ox: 92 Oxygen Delivery Method: Room Air Oxygen Flow Rate (L/min): 2 Airway Assessment Mouth opens: >3 cm Mallampati Score: I Teeth Condition: Caps/Crowns (Patient has 1 crown it is tight.) Neck Range of motion (ROM): Limited ROM (Somewhat Decreased) Labs Anesthesia Preop lab: CBC WBC 7.3 K/mm3 (4.4-11.0) 12/19/24 04:50 12/19/24 RBC 3.48 M/mm3 (4.6-6.2) L 12/19/24 04:50 12/19/24 Hgb 12.1 g/dL (13.0-16.5) L 12/19/24 04:50 5 Hct 35.8 % (40-54) L 12/19/24 04:50 12/19/24 Plt Count 127 K/mm3 (150-450) L 12/19/24 04:50 12/19/24 CHEMISTRY Potassium 3.8 mmol/L (3.3-5.1) 12/19/24 04:50 12/19/24 Sodium 142 mmol/L (133-145) 12/19/24 04:50 12/19/24 Magnesium 2.2 mg/dL (1.6-2.6) 11/14/23 18:47 11/14/23 Phosphorus 3.2 mg/dL (2.5-4.9) 11/12/23 15:45 11/12/23 BUN 24 mg/dL (4-19) H 12/19/24 04:50 12/19/24 Creatinine 1.04 mg/dL (0.70-1.20) 12/19/24 04:50 12/19/24 Glucose 122 mg/dL (70-99) H 12/19/24 04:50 12/19/24 POC Glucose 117 mg/dL (74-106) H 12/19/24 11:40 12/19/24 TSH 2.36 uIU/mL (0.358-3.74) 11/13/23 06:19 COAG PT 14.8 SECONDS (11.7-14.9) 12/18/24 16:22 Pre-Assessment Diagnosis/Proposed Procedure Planned Operative Procedure(s): Right hip hemiarthroplasty. 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 When Was Last Pacemaker Check QUESTION #4 FULL TEXT: You/Your Family Experience fever (hyperthermia) with Anesthesia Last Oral Intake Last Oral intake: Last Oral Intake NPO since 00:01 12/19/24 10:42 Meds taken in AM with sips of No 12/19/24 10:42 water? Meds patient instructed to take am of surgery Any additional information?: Yes Meds taken in AM with sips of water?: No PONV PONV - political organizer: PONV - political organizer Female HX of Motion Sickness HX of N/V After Surgery Non-Smoker Duration of Surgery greater than 60 minutes Number of Risk Factors PONV Score Height & Weight Height & Weight: Anesthesia: Height & Weight Height 5 ft 10 in 12/19/24 10:42 Weight: 81.238 kg 12/19/24 10:42 Body Mass Index (BMI) 25.7 12/19/24 10:42 Respiratory Assessment Respiratory Assessment - political organizer: Respiratory Tract Infection Hx - political organizer Hx Respiratory Tract Infection No 12/19/24 10:42 STOP Sleep Apnea STOP Sleep Apnea - political organizer: STOP Sleep Apnea - political organizer Hx Hypertension No 12/18/24 15:28 Hx Sleep Apnea No 12/18/24 15:28 CPAP BIPAP Do you snore loudly (louder No 12/18/24 15:28 than talking or can be heard Do you often feel tired/ Yes 12/18/24 15:28 fatigued/ sleepy during daytime? Has anyone observed you stop No 12/18/24 15:28 breathing during sleep? STOP Results Negative 12/18/24 15:28 QUESTION #5 FULL TEXT : Do you snore loudly (louder than talking or can be heard through closeddoors)? 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 Specify any problems Hx of Preganancy in last 3 N/A 12/18/24 15:28 Months Nurse Filling Out Transfusion FSTEINER 12/18/24 15:28 & Questions: Date: 12/18/24 12/18/24 15:28 Time: 15:31 12/18/24 15:28 Patient unable to answer at this time (ie. confused, unrespo /Reproduction History /Reproductive History - political organizer: /Reproductive Hx- political organizer Hx Now No 12/19/24 10:42 Gestational Age (in weeks): EDC: Hx Hx Para Hx Section SAB Active Medications Active Medications: Current Medications Generic Name Dose Route Start Last Admin Trade Name Freq PRN Reason Stop Dose Admin Acetaminophen 1,000 mg 12/18/24 17:00 12/19/24 05:20 Acetaminophen 500 Mg Tablet PO Not Given Q8 NURIS Aspirin 81 mg 12/20/24 08:00 Aspirin E.C. 81 Mg Tablet PO BREAKFAST NURIS Atorvastatin Calcium 10 mg 12/18/24 22:00 12/18/24 21:58 Atorvastatin Calcium 10 Mg Tablet PO 10 mg QHS [facility] Administration Carvedilol 25 mg 12/18/24 17:00 12/19/24 09:04 Carvedilol 25 Mg Tablet PO Not Given BIDCM [facility] Protocol Empagliflozin 10 mg 12/20/24 10:00 Empagliflozin 10 Mg Tablet PO DAILY NURIS Furosemide 40 mg 12/20/24 10:00 Furosemide 40 Mg Tablet PO DAILY [facility] Protocol Hydromorphone HCl 0.5 mg 12/18/24 16:06 Hydromorphone 0.5 Mg/0.5 Ml Syringe IV Q4H PRN PRN Pain Score 6-10 Sodium Chloride 250 mls @ 15 mls/hr 12/18/24 15:40 IV .[id number] PRN Saline Flush Sodium Chloride 250 mls @ 15 mls/hr 12/18/24 15:40 IV .[id number] PRN Additional IVPB Infusion Lactated Ringer's 1,000 mls @ 15 mls/hr 12/19/24 13:15 12/19/24 13:06 IV 15 mls/hr .Q48H [facility] Administration Melatonin 3 mg 12/18/24 16:06 Melatonin 3 Mg Tablet PO QHS PRN PRN INSOMNIA Ondansetron HCl 4 mg 12/18/24 16:06 Ondansetron 4 Mg/2 Ml Vial IV Q8H PRN PRN NAUSEA/VOMITING Oxycodone HCl 5 mg 12/18/24 16:06 Oxycodone 5 Mg Tablet PO Q4H PRN PRN Pain Score 4-10 Sacubitril/Valsartan 1 each 12/20/24 10:00 Sacubitril/Valsartan 49-51 Mg Tablet PO BID [facility] Senna 1 tablet 12/18/24 22:00 12/19/24 07:09 Senna Tablet PO Not Given BID [facility] Sodium Chloride 10 - 40 ml 12/18/24 15:40 0.9% Saline Lock 10 Ml Syringe IV UD PRN SALINE FLUSH Spironolactone 25 mg 12/20/24 12:00 Spironolactone 25 Mg Tablet PO LUNCH [facility] Protocol PFSH Medical History (Updated 12/19/24 @ 13:[address] Bernardino Brian MD) Left humeral fracture Diabetes Difficulty swallowing Non-smoker Irregular heart beat Cutaneous horn Congestive heart failure (CHF) Bradycardia Driving safety issue Complete left bundle branch block Cardiomyopathy Bilateral lower extremity edema Dyspnea Carotid arterial disease Carotid artery bruit Arrhythmia Venous insufficiency of both lower extremities Metastasis to bone Prostate cancer Abnormal CT of the abdomen Bone cancer Pathologic fracture of humerus Nondisplaced transverse fracture of shaft of humerus, left arm, initial encounter for closed fracture History of diabetes mellitus Elevated PSA BPH (benign prostatic hyperplasia) Weight loss, non-intentional Flu vaccine need Hypertension Change in skin mole Type 2 diabetes mellitus Bone fracture Home Medications ?Medication ?Instructions ?Recorded ?Last Taken ?Type enzalutamide 80 mg tablet (Xtandi) 160 mg PO QHS chemo 03/24/23 12/18/24 History empagliflozin 10 mg tablet 10 mg PO DAILY 30 days #30 tabs 02/16/24 Unknown Rx (Jardiance) spironolactone 25 mg tablet 25 mg PO LUNCH 90 days #90 tabs 06/29/24 Unknown Rx aspirin 81 mg tablet,delayed 81 mg PO QDAY #90 tabs Unknown Rx release (Adult Aspirin Regimen) atorvastatin 10 mg tablet 10 mg PO QDAY #90 tabs 09/13 Unknown Rx furosemide 40 mg tablet 40 mg PO DAILY 10/25/24 Unkn own History sacubitril 49 mg-valsartan 51 mg 1 tab PO BID #60 tabs 11/20/24 Unknown Rx tablet (Entresto) carvedilol 25 mg tablet 25 mg PO BID 30 days #180 ta bs 12/11/24 Unknown Rx Allergy/AdvReac Type Severity Reaction Status Date / Time shellfish derived Allergy Mild swelling Verified 12/19/24 13:02 in throat Family History Father Melanoma Mother Ovarian cancer Surgical History History of dental surgery Social History household members: spouse Smoking Status: Never smoker alcohol intake: never substance use type: does not use what type of physical activity do you participate in: none Review of Systems (Anesthesia) ROS Narrative System reviewed and no additional complaints, except as documented. 12/19/24 1333 aidan COVARRUBIAS> Date _ Bernardino Brian MD Cosigner Signature: Date CC: ~ Signed [facility]07-29-2025 Consult note [facility] Medical Records Department [address] [place] [address] Consultation - Orthopedics 12/19/24 1243 MR#: [id number] Acct: [id number] Name: JESS JAMES Rep #:[id number] : 1935 89 From: Bj Hamilton MD PCP: Dr. Dyan Kyle MD Status:A DM IN [place] [facility] [place] HPI Consult Data Date of Consult: 12/19/24 HPI Narrative HPI Narrative: JESS JAMES, is a 89 M who presents with right hip pain after fall. Patient had a fall when his fell towards him yesterday at the parking lot. This was a ground-level fall. He was brought in and was found to have right femoral neck fracture. I was consulted for orthopedics. Saw the patient today in [facility]. Patient had some balance issues and was able to walk with 2 canes or a walker over the last year. He was predominantly household ambulator. He had a right tibia fracturemany years ago which was treated conservatively. He had a left humerus fracture likely metastatic from prostate cancer which also healed nonoperatively. He is on Xtandi for chemotherapy for prostate cancer. He has known baseline bilateral pedal edema which may likely be from cardiac comorbidities. Patient is on baby aspirin. Medical history significant for HFrEF and prostate cancer. Patient follows withDr. Mcgee, last office visit on 11/07. 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 Has now been on androgen deprivation therapy since March 2023 as well as zoledronic acid and has responded very well. He was found to have new onsetacute heart failure with EF 10 to 15% in October 2023. Has been following with our cardiology group since then. 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 Had fairly good recovery of ejection fraction with medical therapy with most recent EF 35% in February 2024. [facility] Medical History (Updated 12/19/24 @ 12:[address] Bj Hamilton MD) Diabetes Difficulty swallowing Non-smoker Irregular heart beat Cutaneous horn Congestive heart failure (CHF) Bradycardia Driving safety issue Complete left bundle branch block Cardiomyopathy Bilateral lower extremity edema Dyspnea Carotid arterial disease Carotid artery bruit Arrhythmia Venous insufficiency of both lower extremities Metastasis to bone Prostate cancer Abnormal CT of the abdomen Bone cancer Pathologic fracture of humerus Nondisplaced transverse fracture of shaft of humerus, left arm, initial encounter for closed fracture History of diabetes mellitus Elevated PSA BPH (benign prostatic hyperplasia) Weight loss, non-intentional Flu vaccine need Hypertension Change in skin mole Type 2 diabetes mellitus Bone fracture Home Medications ?Medication ?Instructions ?Recorded ?Last Taken ?Type enzalutamide 80 mg tablet (Xtandi) 160 mg PO QHS chemo 03/24/23 11/11/23 History empagliflozin 10 mg tablet 10 mg PO DAILY 30 days #30 tabs 02/16/24 Unknown Rx (Jardiance) spironolactone 25 mg tablet 25 mg PO LUNCH 90 days #90 tabs 06/29/24 Unknown Rx aspirin 81 mg tablet,delayed 81 mg PO QDAY #90 tabs Unknown Rx release (Adult Aspirin Regimen) atorvastatin 10 mg tablet 10 mg PO QDAY #90 tabs 09/13 Unknown Rx furosemide 40 mg tablet 40 mg PO DAILY 10/25/24 Unkn own History sacubitril 49 mg-valsartan 51 mg 1 tab PO BID #60 tabs 11/20/24 Unknown Rx tablet (Entresto) carvedilol 25 mg tablet 25 mg PO BID 30 days #180 ta bs 12/11/24 Unknown Rx Allergy/AdvReac Type Severity Reaction Status Date / Time shellfish derived Allergy Mild swelling Verified 12/18/24 11:54 in throat Family History Father Melanoma Mother Ovarian cancer Surgical History History of dental surgery Social History household members: spouse Smoking Status: Never smoker alcohol intake: never substance use type: does not use what type of physical activity do you participate in: none Vital Signs Vital Signs Vital Signs: 12/18/24 13:51 12/18/24 15:00 12/18/24 15:03 Temperature 97.8 F Temperature Source Pulse Rate 58 L 50 L 59 L Pulse Strength Respiratory Rate 16 16 16 Respiratory Effort Respiratory Depth Respiratory Pattern Blood Pressure 146/82 H 158/86 H 144/87 H Blood Pressure Mean 103 110 106 Blood Pressure Source Blood Pressure Position Blood Pressure Location Pulse Ox 99 98 98 Oxygen Delivery Method Oxygen Flow Rate (L/min) 12/18/24 15:43 12/18/24 15:56 12/18/24 22:00 Temperature 98.2 F 97.7 F L Temperature Source Oral Oral Pulse Rate 65 60 61 Pulse Strength Respiratory Rate 18 16 Respiratory Effort Normal Respiratory Depth Respiratory Pattern Blood Pressure 162/61 H 117/69 Blood Pressure Mean 94 85 Blood Pressure Source Monitor Monitor Blood Pressure Position Semi-Fowlers Semi-Fowlers Blood Pressure Location Right Arm Right Arm Pulse Ox 100 96 Oxygen Delivery Method Nasal Cannula Nasal Cannula Room Air Oxygen Flow Rate (L/min) 2 2 12/18/24 22:00 12/19/24 05:17 12/19/24 05:18 Temperature 98.4 F Temperature Source Oral Pulse Rate 62 Pulse Strength Respiratory Rate 18 Respiratory Effort Normal Non-Labored Respiratory Depth Normal Respiratory Pattern Normal Blood Pressure 109/56 L Blood Pressure Mean 73 Blood Pressure Source Monitor Blood Pressure Position Semi-Fowlers Blood Pressure Location Left Arm Pulse Ox 96 Oxygen Delivery Method Room Air Room Air Room Air Oxygen Flow Rate (L/min) 12/19/24 09:02 12/19/24 09:52 12/19/24 10:00 Temperature 98.4 F Temperature Source Oral Pulse Rate 62 Pulse Strength Normal (2+) Respiratory Rate 15 Respiratory Effort Respiratory Depth Respiratory Pattern Blood Pressure 113/57 L Blood Pressure Mean 75 Blood Pressure Source Monitor Blood Pressure Position Semi-Fowlers Blood Pressure Location Left Arm Pulse Ox 92 Oxygen Delivery Method Room Air Room Air Oxygen Flow Rate (L/min) Weight Weight: 179 lb 1.6 oz Body Mass Index (BMI) 25.7 Physical Exam Narrative Exam to the right lower extremity shows shortening, external rotation, pain around the right hip with tenderness. No obvious bruises or skin break around the right hip. Bruises noticed around her olecranon bilaterally with no significant swelling and full range of motion. Distal neurovascular exam in theright lower extremity is intact. Bilateral pedal edema noticed. Lab / Micro Data 12/19/24 04:50 12/19/24 04:50 Labs: Laboratory Results - last 24 hr 12/18/24 14:15: WBC 6.2, RBC 3.82 L, Hgb 13.3, Hct 39.9 L, MCV 104.5 H, MCH 34.8H, MCHC 33.3, RDW Std Deviation 50.2 H, RDW Coeff of Danilo 13.1, Plt Count 120 L, MPV 9.5, Immature Gran % (Auto) 0.600, Neut % (Auto) 64.2, Lymph % (Auto) 28.2, Terry % (Auto) 5.6, Eos % (Auto) 1.1, Baso % (Auto) 0.3, Absolute Neuts (auto) 4.0, Absolute Lymphs (auto) 1.75, Nucleated RBC % 0, Sodium 142, Potassium 4.2, Chloride 110 H, Carbon Dioxide 19.5 L, Anion Gap 12, BUN 25 H, Creatinine 1.05, Estim Creat Clear Calc 51.18, Est GFR (MDRD) Non-Af 69, BUN/Creatinine Ratio 23.4 H, Glucose 114 H, Calcium 8.7, Total Bilirubin 0.51, Direct Bilirubin 0.21,AST 17, ALT 7, Alkaline Phosphatase 44, NT pro BNP II 1126, Total Protein 6.0, Albumin 3.3 L, Globulin 2.7 12/18/24 16:22: PT 14.8, INR 1.1, APTT 30.4 12/18/24 16:40: Urine Color Yellow, Urine Clarity Clear, Urine pH 7.0, Ur Specific [place] 1.010, Urine Protein 15 H, Urine Glucose (UA) 1000 H, Urine Ketones 15 H, Urine Occult Blood 10 H, Urine Nitrite Negative, Urine Bilirubin Negative, Urine Urobilinogen Normal, Ur Leukocyte Esterase Negative, Urine RBC 0-5 SEEN, Urine WBC 0 SEEN, Ur Squamous Epith Cells 0 SEEN, Urine Bacteria 0 SEEN, Urine Mucus 0 SEEN 12/19/24 04:50: WBC 7.3, RBC 3.48 L, Hgb 12.1 L, Hct 35.8 L, MCV 102.9 H, MCH 34.8 H, MCHC 33.8, RDW Std Deviation 49.3 H, RDW Coeff of Danilo 13.2, Plt Count 127 L, MPV 10.1, Sodium 142, Potassium 3.8,Chloride 109 H, Carbon Dioxide 22.6,Anion Gap 11, BUN 24 H, Creatinine 1.04, Estim Creat Clear Calc51.67, Est GFR (MDRD) Non-Af 69, BUN/Creatinine Ratio 23.2 H, Glucose 122 H, Calcium 8.4, BloodTypeA NEGATIVE, Antibody Screen NEGATIVE 12/19/24 11:40: POC Glucose 117 H Imaging Radiology Impression Chest X-Ray 12/18/24 13:15 IMPRESSION: Cardiomegaly. Findings suggestive of scarring in both lungs. Reading Location: [id number] Hip/Pelvis X-Ray 12/18/24 13:15 IMPRESSION: There is a fracture through the right femoral neck with 0.9 cm impaction. Critical results were discussed with Dr. Alberto by Dr. Bello at the time of dictation. Reading Location: [facility] Assessment & Plan Assessment/Plan (1) Fracture of femoral neck, right, closed: QUALIFIERS: Encounter type: initial encounter Qualified Code(s): S72.001A - Fracture of unspecifiedpart of neck of right femur, initial encounter for closed fracture PLAN: Plan I reviewed the x-rays of the pelvis and hip done in the ER yesterday. These showed right femoral neck fracture, transcervical, displaced. Discussed imaging findings in detail. Explained to him that patient has intracapsular femoral neck fracture which is displaced. Explained to patient that this is a surgical injury and will require surgical treatment. Hemiarthroplasty was recommended and discussed in detail. All risk benefits andalternatives were discussed. The risks include but are not limited to infection, bleeding, injury to nerves and vessels, sciatic nerve injury, foot drop, hematoma formation, need for further surgery, need for total hip replacement in future, periprosthetic fracture, cement embolism, DVT, pulm embolism,cardiopulmonary event, . Patient understands and agrees to proceed with surgery. All questionswere answered with the patient and family. Charges/Coding Visit Charges Inpatient E&M: 56233 Init Hosp L3 12/19/24 124 Cosigner Signature (if applicable): CC: Dr. Dyan Kyle MD; Dr. Radha Cope, DO~ Signed [facility]07-28-2025 Discharge summary Author Win Alberto [facility] Note Date/Time December 18, 2024 4:36 pm [facility] Medical Records Department [address] [place] [address] Emergency Department Summary 12/18/24 MR#: [id number] Acct: [id number] Name: JESS JAMES Rep #:[id number] : 1935 89 From: Win Morales PCP: Dr. Dyan Kyle MD Status:A DM IN Location: [facility] OC903-5 HPI HPI - Fall History of Present Illness Chief Complaint: Fall Occured/Mechanism Occurred: Today Mechanism/Context: Yes same level fall Usually ambulates: Cane Pain/Injury Pain Location: lower extremity (Right hip) Quality of Pain: Aching Worsened by: Movement Relieved by: Rest Associated Symptoms Associated Symptoms: Negative for Parasthesias, Weakness, Loss of function, Inability to ambulate, Loss of consciousness or Amnesia Narrative Narrative: Patient presents after a fall that occurred today. Patient states his started to fall and she fell into him and knocked him down. Patient denies hitting his head. Patient admits to some abrasions over his posterior elbows bilaterally. Patient complains of pain in his right hip. Patient states he is unable to bear any weight since the fall. Patient describes her pain as aching. Patient states it is worse with movement. Patient denies any paresthesias or weakness. Patient denies any other injuries. [facility] Medical History (Updated 12/18/24 @ 15:38 by Elzbieta Rodriges) Non-smoker Irregular heart beat Cutaneous horn Congestive heart failure (CHF) Bradycardia Driving safety issue Complete left bundle branch block Cardiomyopathy Bilateral lower extremity edema Dyspnea Carotid arterial disease Carotid artery bruit Arrhythmia Venous insufficiency of both lower extremities Metastasis to bone Prostate cancer Abnormal CT of the abdomen Bone cancer Pathologic fracture of humerus Nondisplaced transverse fracture of shaft of humerus, left arm, initial encounter for closed fracture History of diabetes mellitus Elevated PSA BPH (benign prostatic hyperplasia) Weight loss, non-intentional Flu vaccine need Hypertension Change in skin mole Type 2 diabetes mellitus Bone fracture Home Medications ?Medication ?Instructions ?Recorded ?Last Taken ?Type enzalutamide 80 mg tablet (Xtandi) 160 mg PO QHS chemo 03/24/23 11/11/23 History empagliflozin 10 mg tablet 10 mg PO DAILY 30 days #30 tabs 02/16/24 Unknown Rx (Jardiance) spironolactone 25 mg tablet 25 mg PO LUNCH 90 days #90 tabs 06/29/24 Unknown Rx aspirin 81 mg tablet,delayed 81 mg PO QDAY #90 tabs Unknown Rx release (Adult Aspirin Regimen) atorvastatin 10 mg tablet 10 mg PO QDAY #90 tabs 09/13 Unknown Rx furosemide 40 mg tablet 40 mg PO DAILY 10/25/24 Unkn own History sacubitril 49 mg-valsartan 51 mg 1 tab PO BID #60 tabs 11/20/24 Unknown Rx tablet (Entresto) carvedilol 25 mg tablet 25 mg PO BID 30 days #180 ta bs 12/11/24 Unknown Rx Allergy/AdvReac Type Severity Reaction Status Date / Time shellfish derived Allergy Mild swelling Verified 12/18/24 11:54 in throat Family History Father Melanoma Mother Ovarian cancer Surgical History History of dental surgery Social History household members: spouse Smoking Status: Never smoker alcohol intake: never substance use type: does not use what type of physical activity do you participate in: none ROS ROS ED Constitutional Constitutional ED: Denies chills or fever(s) Eyes Eyes: Reports blurry vision; Denies diplopia ENT ENT ED: Reports rhinorrhea; Denies sore throat Cardiovascular Cardiovascular: Denies chest pain or palpitations Respiratory/Chest Respiratory/Chest: Denies cough or dyspnea Gastrointestinal Gastrointestinal: Denies nausea or vomiting Genitourinary Genitourinary ED: Denies dysuria or hematuria Musculoskeletal Musculoskeletal: Denies back pain or neck pain Integumentary Denies abscess or rash Neurologic Neurologic: Denies headache(s) or weakness Allergic/Immunologic Allergic/Immunologic ED: Denies mouth swelling or urticaria EXAM Physical Exam Const Vital Signs: 12/18/24 11:52 12/18/24 11:55 12/18/24 13:51 Temperature 97.7 F L Temperature Source Oral Pulse Rate 80 58 L Respiratory Rate 16 16 Respiratory Effort Normal Respiratory Depth Normal Respiratory Pattern Normal Blood Pressure 167/78 H 146/82 H Blood Pressure Mean 107 103 Pulse Ox 97 99 Oxygen Delivery Method Room Air Room Air Positive well nourished and well developed General Appearance ED: well developed and NAD HEENT Reports normocephalic atraumatic Neck full ROM and supple Extremity Extremity Narrative: There is tenderness to palpation over the right hip. There is no obvious deformity noted. There is decreased range of motion of the right lower extremity secondary to pain. There is pain with internal and external rotation. Pedal pulses are equal bilaterally. Sensation was intact to light touch in alldigits. Capillary refill was less than 2 seconds in all digits. Strength is 5/5 bilaterally in the lower extremities. Neuro oriented x3, CN's II-XII intact bilaterally, moves all extremities, no focal motor deficits and no sensory deficits noted Zaki Coma Scale: document GCS findings Spontaneous Obeys Commands Oriented 15 Sensorium / Orientation: alert Motor Exam: strength 5/5 throughout MDM MDM MDM Narrative Medical decision making narrative: Differential diagnosis includes hip fracture, contusion, and sprain. X-rays of the right hip will be obtained to assess for fracture. History & Record Review Additional record(s) reviewed:: Prior outpatient record and Prior labs Lab Data Attestation: I reviewed the patient's lab results. Lab results narrative: CBC was reviewed and was essentially within normal limits. Basic metabolic profile was reviewed. BUN was slightly elevated at 25. Chloride was slightly elevated at 110. Glucose was slightly elevated at 114. The remainder is withinnormal limits. Labs: Laboratory Results - last 24 hr 12/18/24 14:15 WBC 6.2 RBC 3.82 L Hgb 13.3 Hct 39.9 L MCV 104.5 H MCH 34.8 H MCHC 33.3 RDW Std Deviation 50.2 H RDW Coeff of Danilo 13.1 Plt Count 120 L MPV 9.5 Immature Gran % (Auto) 0.600 Neut % (Auto) 64.2 Lymph % (Auto) 28.2 Terry % (Auto) 5.6 Eos % (Auto) 1.1 Baso % (Auto) 0.3 Absolute Neuts (auto) 4.0 Absolute Lymphs (auto) 1.75 Nucleated RBC % 0 Sodium 142 Potassium 4.2 Chloride 110 H Carbon Dioxide 19.5 L Anion Gap 12 BUN 25 H Creatinine 1.05 Estim Creat Clear Calc 51.18 Est GFR (MDRD) Non-Af 69 BUN/Creatinine Ratio 23.4 H Glucose 114 H Calcium 8.7 Total Bilirubin 0.51 Direct Bilirubin 0.21 AST 17 ALT 7 Alkaline Phosphatase 44 NT pro BNP II 1126 Total Protein 6.0 Albumin 3.3 L Globulin 2.7 Radiography Chest X-Ray - ED: 1 View, Read by ED Physician, Read by Radiologist, No Acute Disease and Chronic Changes Diagnostic Testing: Clinical Impression(s) from Imaging Studies Chest X-Ray 12/18/24 13:15 IMPRESSION: Cardiomegaly. Findings suggestive of scarring in both lungs. Reading Location: [facility] Hip/Pelvis X-Ray 12/18/24 13:15 IMPRESSION: There is a fracture through the right femoral neck with 0.9 cm impaction. Critical results were discussed with Dr. Alberto by Dr. Bello at the time of dictation. Reading Location: [facility] X-rays of the right hip were obtained. There are 3 views. On my independent interpretation, there is a basicervical fracture of the right femoral neck. There is some mild impaction noted. Radiologist also interpreted the x-rays andagrees. Portable 1 view chest x-ray was obtained. On my independent interpretation, lung wyatt shows some scarring of both bases. There is normal cardiac silhouette. Bony thorax is normal. There is no acute process noted. Radiologist also interpreted the x-ray and agrees. Management Discussion w/another healthcare provider: Hospitalist Treatment and Re-Evaluation Narrative: Patient and family were advised of his findings. Case was discussed with Dr. Hamilton from orthopedics. He is agreeable to keep the patient here. Medical screening labs were obtained. CBC was obtained to assess for leukocytosis and anemia. Basic metabolic profile was obtained to assess for electrolyte abnormality renal function. Urinalysis was obtained to assess for urinary tractinfection and hematuria. EKG was obtained to assess for cardiac dysrhythmia andcardiac ischemia. Case was discussed with the hospitalist. He will admit the patient to his service. Patient and family understood and were agreeable with plan. All questions were answered. Discharge Plan Dx/Rx/DC Orders Clinical Impression: Fracture of femoral neck, right, closed, Prostate cancer, Hypertension Disposition Disposition: Acute Care Hospital [facility] Discharge Date/Time: 12/18/24 15:17 What to do if you have Problems For any increased pain, shortness of breath, bleeding, nausea or vomiting, chestpain, or any unexpected problems, contact your Primary Care Provider. Call [facility] ([phone]) or report to the closest Emergency Room. Call 911 if necessary. 12/18/24 1636 <Electronically signed by Win Alberto DO> Cosigner Signature (if applicable): CC: Dr. Dyan Kyle MD ~ Signed [facility] Work Phone: [phone] 186-226307-28-2025 History and physical note Author Amado Jean [facility] Note Date/Time December 18, 2024 4:01 pm [facility] Medical Records Department [address] [place] [address] H&P Exam - Hospitalist 12/18/24 1435 MR#: [id number] Acct: [id number] Name: JESS JAMES Rep #:[id number] : 1935 89 From: Amado ramírez DO PCP: Dr. Dyan Kyle MD Status:A DM IN [place] [facility] [place]-[place] HPI - General General Date of Admission: 12/18/24 Date of Service: 12/18/24 Chief Complaint: Fall with right hip pain HPI Narrative JESS JAMES, is a 89 M who presented to [facility] ED on 12/18/2024 with right hip pain after a fall at home. Patient lives at home with his . Medical history significant for HFrEF and prostate cancer. Patient follows with Dr. Mcgee, last office visit on 11/07. 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 Has now been on androgen deprivation therapy since March 2023 as well as zoledronic acid and has responded very well. He was found to have new onset acute heart failure with EF 10 to 15% in October 2023. Has been following with our cardiology group since then. 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 Had fairly good recovery of ejection fraction with medical therapy with most recent EF 35% in February 2024. Patient unfortunately fell at home today. His actually fell into him and knocked him to the ground, and he had significant right hip pain post fall and was unable to get up, so EMS brought him in for further evaluation. Hip x-ray showed a fracture through the right femoral neck with 0.9 cm impaction. Case was discussed with Dr. Hamilton with orthopedics who noted patient was okay to remain here with plan for surgical intervention likely tomorrow. Hospitalist was then contacted for admission. I saw the patient at bedside in the ED, was present. Patient was mildly fatigued appearing but otherwise sitting back fairly comfortably in bed, conversing normally and in no acute distress. He had been given a dose of IV morphine for the pain and noted this was moderately helpful. He does have pain with essentially any movement. Notes that home health care has been doing therapy with him and he does have a moderate degree of debility at baseline. Hehas been to a rehab facility in the past and would be willing to do this again if needed on discharge. Otherwise she denies any fever/chills or other systemicsymptoms currently. Will be admitted for further management. [facility] Medical History (Updated 12/18/24 @ 15:38 by Elzbieta Rodriges) Non-smoker Irregular heart beat Cutaneous horn Congestive heart failure (CHF) Bradycardia Driving safety issue Complete left bundle branch block Cardiomyopathy Bilateral lower extremity edema Dyspnea Carotid arterial disease Carotid artery bruit Arrhythmia Venous insufficiency of both lower extremities Metastasis to bone Prostate cancer Abnormal CT of the abdomen Bone cancer Pathologic fracture of humerus Nondisplaced transverse fracture of shaft of humerus, left arm, initial encounter for closed fracture History of diabetes mellitus Elevated PSA BPH (benign prostatic hyperplasia) Weight loss, non-intentional Flu vaccine need Hypertension Change in skin mole Type 2 diabetes mellitus Bone fracture Home Medications ?Medication ?Instructions ?Recorded ?Last Taken ?Type enzalutamide 80 mg tablet (Xtandi) 160 mg PO QHS chemo 03/24/23 11/11/23 History empagliflozin 10 mg tablet 10 mg PO DAILY 30 days #30 tabs 02/16/24 Unknown Rx (Jardiance) spironolactone 25 mg tablet 25 mg PO LUNCH 90 days #90 tabs 06/29/24 Unknown Rx aspirin 81 mg tablet,delayed 81 mg PO QDAY #90 tabs Unknown Rx release (Adult Aspirin Regimen) atorvastatin 10 mg tablet 10 mg PO QDAY #90 tabs 09/13 Unknown Rx furosemide 40 mg tablet 40 mg PO DAILY 10/25/24 Unkn own History sacubitril 49 mg-valsartan 51 mg 1 tab PO BID #60 tabs 11/20/24 Unknown Rx tablet (Entresto) carvedilol 25 mg tablet 25 mg PO BID 30 days #180 ta bs 12/11/24 Unknown Rx Allergy/AdvReac Type Severity Reaction Status Date / Time shellfish derived Allergy Mild swelling Verified 12/18/24 11:54 in throat Family History Father Melanoma Mother Ovarian cancer Surgical History History of dental surgery Social History household members: spouse Smoking Status: Never smoker alcohol intake: never substance use type: does not use what type of physical activity do you participate in: none ROS Constitutional Constitutional: Reports fatigue and weakness; Denies chills or fever(s) Eyes Eyes: Denies change in vision Cardiovascular Cardiovascular: Denies chest pain Respiratory/Chest Respiratory/Chest: Denies shortness of breath at rest Gastrointestinal Gastrointestinal: Denies abdominal pain Musculoskeletal Musculoskeletal: Reports joint pain; Denies myalgias Vital Signs Vital Signs Vital Signs: 12/18/24 11:52 12/18/24 11:55 12/18/24 13:51 Temperature 97.7 F L Temperature Source Oral Pulse Rate 80 58 L Respiratory Rate 16 16 Respiratory Effort Normal Respiratory Depth Normal Respiratory Pattern Normal Blood Pressure 167/78 H 146/82 H Blood Pressure Mean 107 103 Pulse Ox 97 99 Oxygen Delivery Method Room Air Room Air Weight Weight: 83.5 kg Body Mass Index (BMI) 26.4 Physical Exam Const alert, oriented x3, no apparent distress and average body habitus Constitutional Narrative: Elderly male, mildly fatigued appearing but otherwise sitting back fairly comfortably in bed, conversing normally, in no acute distress. General Appearance: cooperative and comfortable HEENT normocephalic, head/scalp atraumatic, hearing grossly normal bilaterally, nasal mucous membranes and turbinates normal and moist oral mucous membranes Eyes PERRL, EOMs intact bilaterally and conjunctivae normal Neck full ROM Chest inspection of chest normal Resp normal respiratory effort, normal air movement, no use of accessory muscles and clear to auscultation bilaterally Cardio regular rate, regular rhythm, no murmurs and peripheral pulses 2+ throughout GI normal to inspection, nondistended, normoactive bowel sounds, soft to palpation,non-tender and non-distended Back/Spine normal ROM Extremity Extremity Narrative: Tenderness to palpation over right hip noted. No obvious deformity noted. Did not attempt range of motion. Skin no rashes or lesions noted Psych mental status grossly normal Results Lab / Micro Data 12/18/24 14:15 12/18/24 14:15 Labs: Laboratory Results - last 24 hr 12/18/24 14:15: WBC 6.2, RBC 3.82 L, Hgb 13.3, Hct 39.9 L, MCV 104.5 H, MCH 34.8H, MCHC 33.3, RDW Std Deviation 50.2 H, RDW Coeff of Danilo 13.1, Plt Count 120 L, MPV 9.5, Immature Gran % (Auto) 0.600, Neut % (Auto) 64.2, Lymph % (Auto) 28.2, Terry % (Auto) 5.6, Eos % (Auto) 1.1, Baso % (Auto) 0.3, Absolute Neuts (auto) 4.0, Absolute Lymphs (auto) 1.75, Nucleated RBC % 0 Imaging Radiology Impression Chest X-Ray 12/18/24 13:15 IMPRESSION: Cardiomegaly. Findings suggestive of scarring in both lungs. Reading Location: [id number] Hip/Pelvis X-Ray 12/18/24 13:15 IMPRESSION: There is a fracture through the right femoral neck with 0.9 cm impaction. Critical results were discussed with Dr. Alberto by Dr. Bello at the time of dictation. Reading Location: [facility] Assessment & Plan Assessment/Plan (1) Fracture of femoral neck, right, closed: PLAN: Plan Patient is an 89-year-old male who presented [facility] ED on 12/18/2024 with right hip pain after a fall at home. 1. Right femoral neck fracture ? Admit under inpatient status to [facility]. Orthopedic surgery consulted. PT/OT/case management consulted. Had mechanical fall at home with resultant right hip pain. Hip x-ray showed fracture through right femoral neck with 0.9 cm impaction. N.p.o. at midnight with plan for surgery tomorrow. Preoperative evaluation as below. Pain control with scheduled Tylenol, p.o. oxycodone as needed and IV Dilaudid as needed. SCDs for DVT prophylaxis for now. Patient currently active with home health care; suspect he will need placement on discharge. 2. Preoperative evaluation ? NSQIP score: Patient has average risk of complication, serious complication and discharge to rehab facility based on risk factors of age, mild systemic disease, metastatic cancer, hypertension and heart failure. ? Labs/imaging: Hemoglobin stable at baseline 13.1. Platelets slightly down at 120, baseline 150-200. Creatinine at baseline 1.05 and BMP otherwise normal. PT/INR and PTT ordered. Repeat CBC and BMP ordered for tomorrow morning. No further imaging needed. ? Cardiac eval: Last echo in February 2024 with EF 35%. In ED here, patient hemodynamically stable on room air at rest. Chest x-ray with no volume overloadnoted. BNP normal. EKG with normal sinus rhythm, stable from previous. Given that patient is in compensated heart failure, no need for further cardiac workupat this time. ? Medications: Continue home beta-keisha periprocedurally. Will hold home Lasix, spironolactone, Entresto and empagliflozin on day of procedure tomorrow, then will be okay to resume on postop day 1. Holding home baby aspirin; follow-up orthopedic recommendations for DVT prophylaxis postoperatively. ? Prior procedural complications: None. ? Recommendation: Patient is medically optimized for procedure. 3. Chronic HFrEF, hypertension, hyperlipidemia ? Follows with cardiology, last office visit in August. Most recent echo with EF35% in February 2024 as above. Hemodynamically stable and no evidence of volume overload on admission. Continue home beta-keisha and statin. Holding other home medications on the day of procedure as above with plan to restart postoperatively. 4. Prostate cancer with metastasis to bone ? Follows with oncology, last office visit in October. Diagnosed in 2022 and had pathologic left humerus fracture at that time. Has responded very well to antiandrogen therapy. Continue home Xtandi. No inpatient oncology needs, continue close outpatient follow-up. DVT prophylaxis: SCDs for now, will defer to orthopedics CODE STATUS: Full code, verified Expected disposition: TBD Total clinical time spent by myself addressing the patient's medical issues, reviewing all the data, and collaborating with patient's care team: 75 minutes. Charges/Coding Visit Charges Inpatient E&M: 72230 Init Hosp L3 12/18/24 1601 <Electronically signed by Amado Jean DO> Cosigner Signature (if applicable): CC: Dr. Amado Jean DO; Dr. Dyan Kyle MD~ Signed [facility] Work Phone: [phone]) 516-426807-28-2025 Discharge summary [facility] Medical Records Department [address] [place] [address] Emergency Department Summary 12/18/24 MR#: [id number] Acct: [id number] Name: JESS JAMES Rep #:[id number] : 1935 89 From: Win Morales PCP: Dr. Dyan Kyle MD Status:A DM IN Location: [place] [address] HPI HPI - Fall History of Present Illness Chief Complaint: Fall Occured/Mechanism Occurred: Today Mechanism/Context: Yes same level fall Usually ambulates: Cane Pain/Injury Pain Location: lower extremity (Right hip) Quality of Pain: Aching Worsened by: Movement Relieved by: Rest Associated Symptoms Associated Symptoms: Negative for Parasthesias, Weakness, Loss of function, Inability to ambulate, Loss of consciousness or Amnesia Narrative Narrative: Patient presents after a fall that occurred today. Patient states his started to fall and she fell into him and knocked him down. Patient denies hitting his head. Patient admits to some abrasions over his posterior elbows bilaterally. Patient complains of pain in his right hip. Patient states he is unable to bear any weight since the fall. Patient describes her pain as aching. Patient statesit is worse with movement. Patient denies any paresthesias or weakness. Patient denies any other injuries. [facility] Medical History (Updated 12/18/24 @ 15:38 by Elzbieta Rodriges) Non-smoker Irregular heart beat Cutaneous horn Congestive heart failure (CHF) Bradycardia Driving safety issue Complete left bundle branch block Cardiomyopathy Bilateral lower extremity edema Dyspnea Carotid arterial disease Carotid artery bruit Arrhythmia Venous insufficiency of both lower extremities Metastasis to bone Prostate cancer Abnormal CT of the abdomen Bone cancer Pathologic fracture of humerus Nondisplaced transverse fracture of shaft of humerus, left arm, initial encounter for closed fracture History of diabetes mellitus Elevated PSA BPH (benign prostatic hyperplasia) Weight loss, non-intentional Flu vaccine need Hypertension Change in skin mole Type 2 diabetes mellitus Bone fracture Home Medications ?Medication ?Instructions ?Recorded ?Last Taken ?Type enzalutamide 80 mg tablet (Xtandi) 160 mg PO QHS chemo 03/24/23 11/11/23 History empagliflozin 10 mg tablet 10 mg PO DAILY 30 days #30 tabs 02/16/24 Unknown Rx (Jardiance) spironolactone 25 mg tablet 25 mg PO LUNCH 90 days #90 tabs 06/29/24 Unknown Rx aspirin 81 mg tablet,delayed 81 mg PO QDAY #90 tabs Unknown Rx release (Adult Aspirin Regimen) atorvastatin 10 mg tablet 10 mg PO QDAY #90 tabs 09/13 Unknown Rx furosemide 40 mg tablet 40 mg PO DAILY 10/25/24 Unkn own History sacubitril 49 mg-valsartan 51 mg 1 tab PO BID #60 tabs 11/20/24 Unknown Rx tablet (Entresto) carvedilol 25 mg tablet 25 mg PO BID 30 days #180 ta bs 12/11/24 Unknown Rx Allergy/AdvReac Type Severity Reaction Status Date / Time shellfish derived Allergy Mild swelling Verified 12/18/24 11:54 in throat Family History Father Melanoma Mother Ovarian cancer Surgical History History of dental surgery Social History household members: spouse Smoking Status: Never smoker alcohol intake: never substance use type: does not use what type of physical activity do you participate in: none ROS ROS ED Constitutional Constitutional ED: Denies chills or fever(s) Eyes Eyes: Reports blurry vision; Denies diplopia ENT ENT ED: Reports rhinorrhea; Denies sore throat Cardiovascular Cardiovascular: Denies chest pain or palpitations Respiratory/Chest Respiratory/Chest: Denies cough or dyspnea Gastrointestinal Gastrointestinal: Denies nausea or vomiting Genitourinary Genitourinary ED: Denies dysuria or hematuria Musculoskeletal Musculoskeletal: Denies back pain or neck pain Integumentary Denies abscess or rash Neurologic Neurologic: Denies headache(s) or weakness Allergic/Immunologic Allergic/Immunologic ED: Denies mouth swelling or urticaria EXAM Physical Exam Const Vital Signs: 12/18/24 11:52 12/18/24 11:55 12/18/24 13:51 Temperature 97.7 F L Temperature Source Oral Pulse Rate 80 58 L Respiratory Rate 16 16 Respiratory Effort Normal Respiratory Depth Normal Respiratory Pattern Normal Blood Pressure 167/78 H 146/82 H Blood Pressure Mean 107 103 Pulse Ox 97 99 Oxygen Delivery Method Room Air Room Air Positive well nourished and well developed General Appearance ED: well developed and NAD HEENT Reports normocephalic atraumatic Neck full ROM and supple Extremity Extremity Narrative: There is tenderness to palpation over the right hip. There is no obvious deformity noted. There is decreased range of motion of the right lower extremity secondary to pain. There is pain with internal and external rotation. Pedal pulses are equal bilaterally. Sensation was intact to light touch in alldigits. Capillary refill was less than 2 seconds in all digits. Strength is 5/5 bilaterally in the lower extremities. Neuro oriented x3, CN's II-XII intact bilaterally, moves all extremities, no focal motor deficits and no sensory deficits noted Zaki Coma Scale: document GCS findings Spontaneous Obeys Commands Oriented 15 Sensorium / Orientation: alert Motor Exam: strength 5/5 throughout MDM MDM MDM Narrative Medical decision making narrative: Differential diagnosis includes hip fracture, contusion, and sprain. X-rays of the right hip will be obtained to assess for fracture. History & Record Review Additional record(s) reviewed:: Prior outpatient record and Prior labs Lab Data Attestation: I reviewed the patient's lab results. Lab results narrative: CBC was reviewed and was essentially within normal limits. Basic metabolic profile was reviewed. BUN was slightly elevated at 25. Chloride was slightly elevated at 110. Glucose was slightly elevated at 114. The remainder is withinnormal limits. Labs: Laboratory Results - last 24 hr 12/18/24 14:15 WBC 6.2 RBC 3.82 L Hgb 13.3 Hct 39.9 L MCV 104.5 H MCH 34.8 H MCHC 33.3 RDW Std Deviation 50.2 H RDW Coeff of Danilo 13.1 Plt Count 120 L MPV 9.5 Immature Gran % (Auto) 0.600 Neut % (Auto) 64.2 Lymph % (Auto) 28.2 Terry % (Auto) 5.6 Eos % (Auto) 1.1 Baso % (Auto) 0.3 Absolute Neuts (auto) 4.0 Absolute Lymphs (auto) 1.75 Nucleated RBC % 0 Sodium 142 Potassium 4.2 Chloride 110 H Carbon Dioxide 19.5 L Anion Gap 12 BUN 25 H Creatinine 1.05 Estim Creat Clear Calc 51.18 Est GFR (MDRD) Non-Af 69 BUN/Creatinine Ratio 23.4 H Glucose 114 H Calcium 8.7 Total Bilirubin 0.51 Direct Bilirubin 0.21 AST 17 ALT 7 Alkaline Phosphatase 44 NT pro BNP II 1126 Total Protein 6.0 Albumin 3.3 L Globulin 2.7 Radiography Chest X-Ray - ED: 1 View, Read by ED Physician, Read by Radiologist, No Acute Disease and Chronic Changes Diagnostic Testing: Clinical Impression(s) from Imaging Studies Chest X-Ray 12/18/24 13:15 IMPRESSION: Cardiomegaly. Findings suggestive of scarring in both lungs. Reading Location: [id number] Hip/Pelvis X-Ray 12/18/24 13:15 IMPRESSION: There is a fracture through the right femoral neck with 0.9 cm impaction. Critical results were discussed with Dr. Alberto by Dr. Bello at the time of dictation. Reading [facility] of the right hip were obtained. There are 3 views. On my independent interpretation, there is a basicervical fracture of the right femoral neck. There is some mild impaction noted. Radiologistalso interpreted the x-rays andagrees. Portable 1 view chest x-ray was obtained. On my independent interpretation, lung wyatt shows some scarring of both bases. There is normal cardiac silhouette. Bony thorax is normal. There is no acuteprocess noted. Radiologist also interpreted the x-ray and agrees. Management Discussion w/another healthcare provider: Hospitalist Treatment and Re-Evaluation Narrative: Patient and family were advised of his findings. Case was discussed with Dr. Hamilton from orthopedics. He is agreeable to keep the patient here. Medical screening labs were obtained. CBC was obtained to assess for leukocytosis and anemia. Basic metabolic profile was obtained to assess for electrolyte abnormality renal function. Urinalysis was obtained to assess for urinary tractinfection and hematuria. EKG was obtained to assess for cardiac dysrhythmia andcardiac ischemia. Case was discussed withthe hospitalist. He will admit the patient to his service. Patient and family understood and were agreeable with plan. All questions were answered. Discharge Plan Dx/Rx/DC Orders Clinical Impression: Fracture of femoral neck, right, closed, Prostate cancer, Hypertension Disposition Disposition: Acute Care Hospital [facility] Discharge Date/Time: 12/18/24 15:17 What to do if you have Problems For any increased pain, shortness of breath, bleeding, nausea or vomiting, chestpain, or any unexpected problems, contact your Primary Care Provider. Call [facility] ([phone]) or report tothe closest Emergency Room. Call 911 if necessary. 12/18/24 1636 Cosigner Signature (if applicable): CC: Dr. Dyan Kyle MD ~ Signed [facility]07-28-2025 History and physical note [facility] Medical Records Department [address] [place] [address] H&P Exam - Hospitalist 12/18/24 1435 MR#: [id number] Acct: [id number] Name: JESS JAMES Rep #:[id number] : 1935 89 From: Amado ramírez DO PCP: Dr. Dyan Kyle MD Status:A DM IN Location: [facility] [id number] HPI - General General Date of Admission: 12/18/24 Date of Service: 12/18/24 Chief Complaint: Fall with right hip pain HPI Narrative JESS JAMES, is a 89 M who presented to [facility] ED on 12/18/2024 with right hip pain after a fall at home. Patient lives at home with his . Medical history significant for HFrEFand prostate cancer. Patient follows with Dr. Mcgee, last office visit on 11/07. Suffered fall with pathologic left humerus fracture back in 2022 and was found to have metastatic prostate cancer atthat time. Has now been on androgen deprivation therapy since March 2023 as well as zoledronic acid and has responded very well. He was found to have new onset acute heart failure with EF 10 to 15% in October 2023. Has been following with our cardiology group since then. 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 Had fairly good recovery of ejection fraction with medical therapy with most recent EF 35% in February 2024. Patient unfortunately fell at home today. His actually fell into him and knocked him to the ground, and he had significant right hip pain post fall and was unable toget up, so EMS brought him in for further evaluation. Hip x-ray showed a fracture through the rightfemoral neck with 0.9 cm impaction. Case was discussed with Dr. Hamilton with orthopedics who noted patient was okay to remain here with plan for surgical intervention likely tomorrow. Hospitalist was then contacted for admission. I saw the patient at bedside in the ED, was present. Patient was mildly fatigued appearing but otherwise sitting back fairly comfortably in bed, conversing normally and in no acute distress. He had been given a dose of IV morphine for the pain and noted this was moderately helpful. He does have pain with essentially any movement. Notes that home health care has been doing therapy with him and he does have a moderate degree of debility at baseline. Hehas been to a rehab facility in the past and would be willing to do this again if needed on discharge. Otherwiseshe denies any fever/chills or other systemicsymptoms currently. Will be admitted for further management. [facility] Medical History (Updated 12/18/24 @ 15:38 by Elzbieta Rodriges) Non-smoker Irregular heart beat Cutaneous horn Congestive heart failure (CHF) Bradycardia Driving safety issue Complete left bundle branch block Cardiomyopathy Bilateral lower extremity edema Dyspnea Carotid arterial disease Carotid artery bruit Arrhythmia Venous insufficiency of both lower extremities Metastasis to bone Prostate cancer Abnormal CT of the abdomen Bone cancer Pathologic fracture of humerus Nondisplaced transverse fracture of shaft of humerus, left arm, initial encounter for closed fracture History of diabetes mellitus Elevated PSA BPH (benign prostatic hyperplasia) Weight loss, non-intentional Flu vaccine need Hypertension Change in skin mole Type 2 diabetes mellitus Bone fracture Home Medications ?Medication ?Instructions ?Recorded ?Last Taken ?Type enzalutamide 80 mg tablet (Xtandi) 160 mg PO QHS chemo 03/24/23 11/11/23 History empagliflozin 10 mg tablet 10 mg PO DAILY 30 days #30 tabs 02/16/24 Unknown Rx (Jardiance) spironolactone 25 mg tablet 25 mg PO LUNCH 90 days #90 tabs 06/29/24 Unknown Rx aspirin 81 mg tablet,delayed 81 mg PO QDAY #90 tabs Unknown Rx release (Adult Aspirin Regimen) atorvastatin 10 mg tablet 10 mg PO QDAY #90 tabs 09/13 Unknown Rx furosemide 40 mg tablet 40 mg PO DAILY 10/25/24 Unkn own History sacubitril 49 mg-valsartan 51 mg 1 tab PO BID #60 tabs 11/20/24 Unknown Rx tablet (Entresto) carvedilol 25 mg tablet 25 mg PO BID 30 days #180 ta bs 12/11/24 Unknown Rx Allergy/AdvReac Type Severity Reaction Status Date / Time shellfish derived Allergy Mild swelling Verified 12/18/24 11:54 in throat Family History Father Melanoma Mother Ovarian cancer Surgical History History of dental surgery Social History household members: spouse Smoking Status: Never smoker alcohol intake: never substance use type: does not use what type of physical activity do you participate in: none ROS Constitutional Constitutional: Reports fatigue and weakness; Denies chills or fever(s) Eyes Eyes: Denies change in vision Cardiovascular Cardiovascular: Denies chest pain Respiratory/Chest Respiratory/Chest: Denies shortness of breath at rest Gastrointestinal Gastrointestinal: Denies abdominal pain Musculoskeletal Musculoskeletal: Reports joint pain; Denies myalgias Vital Signs Vital Signs Vital Signs: 12/18/24 11:52 12/18/24 11:55 12/18/24 13:51 Temperature 97.7 F L Temperature Source Oral Pulse Rate 80 58 L Respiratory Rate 16 16 Respiratory Effort Normal Respiratory Depth Normal Respiratory Pattern Normal Blood Pressure 167/78 H 146/82 H Blood Pressure Mean 107 103 Pulse Ox 97 99 Oxygen Delivery Method Room Air Room Air Weight Weight: 83.5 kg Body Mass Index (BMI) 26.4 Physical Exam Const alert, oriented x3, no apparent distress and average body habitus Constitutional Narrative: Elderly male, mildly fatigued appearing but otherwise sitting back fairly comfortably in bed, conversing normally, in no acute distress. General Appearance: cooperative and comfortable HEENT normocephalic, head/scalp atraumatic, hearing grossly normal bilaterally, nasal mucous membranes and turbinates normal and moist oral mucous membranes Eyes PERRL, EOMs intact bilaterally and conjunctivae normal Neck full ROM Chest inspection of chest normal Resp normal respiratory effort, normal air movement, no use of accessory muscles and clear to auscultation bilaterally Cardio regular rate, regular rhythm, no murmurs and peripheral pulses 2+ throughout GI normal to inspection, nondistended, normoactive bowel sounds, soft to palpation,non-tender and non-distended Back/Spine normal ROM Extremity Extremity Narrative: Tenderness to palpation over right hip noted. No obvious deformity noted. Did not attempt range of motion. Skin no rashes or lesions noted Psych mental status grossly normal Results Lab / Micro Data 12/18/24 14:15 12/18/24 14:15 Labs: Laboratory Results - last 24 hr 12/18/24 14:15: WBC 6.2, RBC 3.82 L, Hgb 13.3, Hct 39.9 L, MCV 104.5 H, MCH 34.8H, MCHC 33.3, RDW Std Deviation 50.2 H, RDW Coeff of Danilo 13.1, Plt Count 120 L, MPV 9.5, Immature Gran % (Auto) 0.600, Neut % (Auto) 64.2, Lymph % (Auto) 28.2, Terry % (Auto) 5.6, Eos % (Auto) 1.1, Baso % (Auto) 0.3, Absolute Neuts (auto) 4.0, Absolute Lymphs (auto) 1.75, Nucleated RBC % 0 Imaging Radiology Impression Chest X-Ray 12/18/24 13:15 IMPRESSION: Cardiomegaly. Findings suggestive of scarring in both lungs. Reading Location: [id number] Hip/Pelvis X-Ray 12/18/24 13:15 IMPRESSION: There is a fracture through the right femoral neck with 0.9 cm impaction. Critical results were discussed with Dr. Alberto by Dr. Bello at the time of dictation. Reading Location: SERGIOSHAE Assessment & Plan Assessment/Plan (1) Fracture of femoral neck, right, closed: PLAN: Plan Patient is an 89-year-old male who presented [facility] ED on 12/18/2024 with right hip pain after a fall at home. 1. Right femoral neck fracture ? Admit under inpatient status to [facility]. Orthopedic surgery consulted. PT/OT/case management consulted. Had mechanical fall at home with resultant right hip pain. Hip x-ray showed fracture through right femoral neck with 0.9 cm impaction. N.p.o. at midnight with plan for surgery tomorrow. Preoperative evaluation as below. Pain control with scheduled Tylenol, p.o. oxycodone as needed and IV Dilaudid as needed. SCDs for DVT prophylaxis for now. Patient currently active with home health care; suspect he will need placement on discharge. 2. Preoperative evaluation ? NSQIP score: Patient has average risk of complication, serious complication and discharge to rehab facility based on risk factors of age, mild systemic disease, metastatic cancer, hypertension and heart failure. ? Labs/imaging: Hemoglobin stable at baseline 13.1. Platelets slightly down at 120, baseline 150-200. Creatinine at baseline 1.05 and BMP otherwise normal. PT/INR and PTT ordered. Repeat CBC and BMP ordered for tomorrow morning. No further imaging needed. ? Cardiac eval: Last echo in February 2024 with EF 35%. In ED here, patient hemodynamically stable on room air at rest. Chest x-ray with no volume overloadnoted. BNP normal. EKG with normal sinus rhythm, stable from previous. Given that patient is in compensated heart failure, no need for further cardiac workupat this time. ? Medications: Continue home beta-keisha periprocedurally. Will hold home Lasix, spironolactone, Entresto and empagliflozin on day of procedure tomorrow, then will be okay to resume on postop day 1.Holding home baby aspirin; follow-up orthopedic recommendations for DVT prophylaxis postoperatively. ? Prior procedural complications: None. ? Recommendation: Patient is medically optimized for procedure. 3. Chronic HFrEF, hypertension, hyperlipidemia ? Follows with cardiology, last office visit in August. Most recent echo with EF35% in February 2024 as above. Hemodynamically stable and no evidence of volume overload on admission. Continue home beta-keisha and statin. Holding other home medications on the day of procedure as above with plan to restart postoperatively. 4. Prostate cancer with metastasis to bone ? Follows with oncology, last office visit in October. Diagnosed in 2022 and had pathologic left humerus fracture at that time. Has responded very well to antiandrogen therapy. Continue home Xtandi. No inpatient oncology needs, continue close outpatient follow-up. DVT prophylaxis: SCDs for now, will defer to orthopedics CODE STATUS: Full code, verified Expected disposition: TBD Total clinical time spent by myself addressing the patient's medical issues, reviewing all the data, and collaborating with patient's care team: 75 minutes. Charges/Coding Visit Charges Inpatient E&M: 18435 Init Hosp L3 12/18/24 1601 Cosigner Signature (if applicable): CC: Dr. Amado Jean DO; Dr. Dyan Kyle MD~ Signed [facility]07-28-2025 Radiology Diagnostic study note [facility] Imaging Services [address] [place], [place] [id number] HIP, UNI W/ Pelvis 2-3 Views MR#: [id number] Acct: [id number] Name: JESS JAMES Rep #: [id number] : 1935 M 89 From: Mark Bello MD PCP: Dr. Dyan Kyle MD Status: R EG ER Study:HIP, UNI W/ Pelvis 2-3 Views Date of Ex am: 12/18/24 Exam# [id number] Ordering Dr: Win Alberto DO PROCEDURE: HIP, UNI W/ PELVIS 2-3 VIEWS 12/18/2024 REASON FOR EXAM: INJURY/PAIN TECHNIQUE: HIP, UNI W/ PELVIS 2-3 VIEWS COMPARISON: None FINDINGS: There is a fracture through the right femoral neck with 0.9 cm impaction. Thereis no dislocation. 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 The pelvic bones appear intact. Vascular calcifications are visible. RAD/HIP, UNI W/ Pelvis 2-3 Views IMPRESSION: There is a fracture through the right femoral neck with 0.9 cm impaction. Critical results were discussed with Dr. Alberto by Dr. Bello at the time of dictation. Reading Location: [facility] CC: Dr. Dyan Kyle MD; Dr. Win Alberto DO ~ Terrazzo Roller: Signed [facility]07-28-2025 Radiology Diagnostic study note [facility] Imaging Services [address] [place], [place] [id number] Chest 1 View MR#: [id number] Acct: [id number] Name: JESS JAMES Rep #: [id number] : 1935 M 89 From: Talat Menjivar MD PCP: Dr. Dyan Kyle MD Status: R ER Study:Chest 1 View Date of Exam: 5 Exam# [id number] Ordering Dr: Win Alberto DO PROCEDURE: CHEST 1 VIEW 12/18/2024 REASON FOR EXAM: FALL TECHNIQUE: Frontal view of the chest. COMPARISON: None FINDINGS: Hardware: None Heart: Cardiomegaly. Lungs: Increased interstitial markings in both lungs worse in the right hemithorax suggestive of chronic scarring. Bones: Degenerative changes are identified within the thoracic spine. Other: Calcification of the aortic arch. RAD/Chest 1 View IMPRESSION: Cardiomegaly. Findings suggestive of scarring in both lungs. Reading Location: SIOBHAN CC: Dr. Dyan Kyle MD; Dr. Win Schwiger, DO ~ Terrazzo Roller: Signed [facility]06-17-2025 Progress [facility] [address] [place] [address] OFFICE VISIT Date of Service: 11/07/24 1350 MR#: [id number] Acct: [id number] Name: JESS JAMES Rep #: [id number] : 1935 From: Carolina adams MD Age/Sex: 89/M [place] [facility] [place]: Signed HPI Subjective Date of Service 11/07/24 Chief Complaint prostate cancer on treatment History of Present Illness 89-year-old gentleman with no prior history of malignancies who accidentally fell in January sustained soft tissue injury mainly the left upper extremity with a pathologic fracture of the left humerus. A diagnostic PSA came back over 500. March 08, 2023 bone scan: IMPRESSION: 1. The multifocal increase in tracer uptake noted in the left mid-distal diaphysis is commensurate with the patient''s known trauma-fracture, likely pathologic. 2. 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 3. Degenerative arthrosis is defined in the left ankle, the bilateral shoulders, the seventh thoracic vertebra. March 12, 2023 orthopedic oncology evaluation at [facility], Dr. Fischer: Advised conservative management. August 07, 2024 bone scan: IMPRESSION: Overall, findings are suggestive of partial interval treatment response. The degree of activity associated with the mid left humeral diaphysis and lower lumbar spine/sacrum is decreased. The metastatic foci of the calvarium present on the prior study are not clearly demonstrated on the current examination. Treatment summary and response: Androgen deprivation therapy started with Xtandi February 2023 and Lupron starting March 29, 2023. Bone supportive therapy with Zometa every 12 weeks starting March 29, 2023 [facility] Medical History (Updated 11/07/24 @ 13:58 by Tiffanie Lucia) Cutaneous horn Congestive heart failure (CHF) Bradycardia Driving safety issue Complete left bundle branch block Cardiomyopathy History of diabetes mellitus Bilateral lower extremity edema Dyspnea Carotid arterial disease Carotid artery bruit Arrhythmia Venous insufficiency of both lower extremities Metastasis to bone Prostate cancer Abnormal CT of the abdomen Bone cancer Pathologic fracture of humerus Nondisplaced transverse fracture of shaft of humerus, left arm, initial encounter for closed fracture Elevated PSA BPH (benign prostatic hyperplasia) Weight loss, non-intentional Flu vaccine need Hypertension Change in skin mole Type 2 diabetes mellitus Bone fracture Surgical History History of dental surgery Family History Father Melanoma Mother Ovarian cancer Social History household members: spouse Smoking Status: Never smoker alcohol intake: never substance use type: does not use what type of physical activity do you participate in: none ROS Constitutional Constitutional: Reports systems reviewed and no addt'l complaints, except as documented; Denies fever(s) or weight loss Eyes Eyes: Reports systems reviewed and no addt'l complaints, except as documented ENT HEENT: Reports systems reviewed and no addt'l complaints, except as documented and hearing loss; Denies headache(s) Cardiovascular Cardiovascular: Reports systems reviewed and no addt'l complaints, except as documented and edema; Denies chest pain with activity Respiratory/Chest Respiratory/Chest: Reports systems reviewed and no addt'l complaints, except as documented; Denies cough, dyspnea or hemoptysis Gastrointestinal Gastrointestinal: Reports systems reviewed and no addt'l complaints, except as documented; Denies change in bowel habits, hematochezia or melena Genitourinary Genitourinary: Reports systems reviewed and no addt'l complaints, except as documented, urinary frequency, urinary incontinence and other Details: Urge incontinence, if not fast enough to go to the bathroom ; Denies hematuria Musculoskeletal Musculoskeletal: Reports systems reviewed and no addt'l complaints, except as documented; Denies back pain or extremity pain Integumentary Integumentary: Reports systems reviewed and no addt'l complaints, except as documented; Denies bleeding lesions or new lesions Neurologic Neurologic: Reports systems reviewed and no addt'l complaints, except as documented; Denies focal weakness, frequent falls or paresthesias Psychiatric Psychiatric: Reports systems reviewed and no addt'l complaints, except as documented Endocrine Endocrinology: Reports systems reviewed and no addt'l complaints, except as documented Hematologic/Lymphatic Hematologic/Lymphatic: Reports systems reviewed and no addt'l complaints, exceptas documented and easy bruising Allergic/Immunologic Allergic/Immunologic: Reports systems reviewed and no addt'l complaints, except as documented Intake Vital Signs 09/26/24 14:20 10/25/24 14:46 11/07/24 13:50 Height 5 ft 10 in 5 ft 10 in 5 ft 10 in Weight: 79.832 kg 79.379 kg 80.739 kg BMI 25.2 25.1 25.5 BP 121/73 H 110/64 130/70 H Blood Pressure Location Lt brachial Lt brachial Lt brachial Position Sitting Sitting Sitting Respiration 16 16 16 Pulse 48 L 48 L 50 L Pulse Source Monitor Monitor Monitor Temp 97.3 F L 97.7 F L 97.9 F Temperature Source Temporal Artery Temporal Artery Pulse Oximetry (%) 93 97 94 Oxygen Delivery Method room air room air room air Intake Agricultural Inspector Required: No Accompanied by: Is patient in pain?: No Allergies shellfish derived Allergy (Mild, Verified 11/07/24 13:54) swelling in throat Medications ?Medication ?Instructions ?Recorded ?Confirmed ?Type enzalutamide 80 mg tablet (Xtandi) 160 mg PO QHS chemo 03/24/23 11/07/24 History sacubitril 49 mg-valsartan 51 mg 1 tab PO BID #60 tabs 12/07/23 11/07/24 Rx tablet (Entresto) carvedilol 25 mg tablet 25 mg PO BID 30 days #60 tab s 01/03/24 11/07/24 Rx empagliflozin 10 mg tablet 10 mg PO DAILY 30 days #30 tabs 02/16/24 11/07/24 Rx (Jardiance) spironolactone 25 mg tablet 25 mg PO LUNCH 90 days #90 tabs 06/29/24 11/07/24 Rx aspirin 81 mg tablet,delayed 81 mg PO QDAY #90 tabs 11/07/24 Rx release (Adult Aspirin Regimen) atorvastatin 10 mg tablet 10 mg PO QDAY #90 tabs 09/1311/07/24 Rx furosemide 40 mg tablet 40 mg PO DAILY PRN 10/25/24 11/07/24 History Have you fallen in the past year?: Yes Central Venous Access Central Venous Access: No Laboratory Tests 01/21/23 02/24/23 03/29/23 08:47 11:51 14:30 PSA Screen 513.00 H Total PSA 823.00 H 539.00 H 05/10/23 06/21/23 08/02/23 11:10 13:58 13:17 PSA Screen Total PSA 32.00 H 7.03 H 1.75 09/13/23 10/25/23 11/30/23 13:53 13:24 11:29 PSA Screen Total PSA 0.81 0.44 0.16 04/10/24 05/23/24 07/04/24 12:57 10:12 13:22 PSA Screen Total PSA 0.03 0.03 0.02 08/15/24 09/26/24 11/07/24 14:53 13:53 13:30 PSA Screen Total PSA < 0.02 < 0.02 < 0.02 Exam Physical Exam Narrative Elderly, frail ECOG 2 Const alert and no apparent distress General Appearance: cooperative, comfortable and frail HEENT normocephalic Face and Sinus: normal facial exam General Ear: hearing grossly impaired Mouth: oral and palatal mucosa normal Eyes General Eye: normal appearance of both eyes Neck supple and no JVD Lymph Lymphatic: no lymphadenopathy noted and lymphedema moderate (Left upper extremity) Resp clear to auscultation bilaterally Cardio regular rate and regular rhythm Jugular Venous Distention: Negative for JVD GI soft to palpation, non-tender and non-distended; Negative for hepatosplenomegaly Back/Spine no thoracic nor lumbar tenderness Extremity Extremity Narrative: Left upper extremity in a sling, left arm in a fixation sleeve. Moderately severe lymphedema of theleft forearm. General Extremity: edema right lower extremity moderate and left lower extremitymild; Negative for clubbing or cyanosis Skin Skin Narrative: Left arm was wrapped, patient described it as intact but oozing skin General Skin Exam: ecchymosis Neuro CN's II-XII intact bilaterally, moves all extremities and no focal motor deficits Speech: speech normal Gait (Neuro): normal gait and assistive device used cane Coordination: [id number] test normal Psych mental status grossly normal Coding Level of Care Code Off vis,est,level 4 Exam Problem Focused Diagnoses Prostate cancer C61 Metastasis to bone C79.51 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, subsequent encounter M84.522D Encounter type: subsequent encounter Fracture healing: with routine healing Laterality: left Pathology associated with fracture: neoplastic disease Assessment and Plan Assessment and Plan (1) Prostate cancer: Status: Chronic (2) Metastasis to bone: Status: Chronic (3) Pathologic fracture of humerus: Status: Chronic Qualifiers: Encounter type: subsequent encounter Fracture healing: with routine healing Laterality: left Pathology associated with fracture: neoplastic disease Qualified Code(s): M84.522D - Pathological fracturein neoplastic disease, left humerus, subsequent encounter for fracture with routine healing Plan 89-year-old gentleman who presented after an accidental fall with a pathologic fracture of the lefthumerus. PSA over 500 diagnostic of metastatic prostate cancer. The patient had the left arm and a fixation sleeve and left upper extremity in asling. Had significant lymphedema that significantly improved over time. His pain is also subsided. Was evaluated by orthopedic oncology at [facility] and conservative management of the fractured left humerus advised. His bone scan shows multiple metastatic bone lesions. He started androgen deprivation therapy March 2023 and has shown favorable response both clinically and by PSA. Chronic comorbid conditions: Diabetes, hypertension, chronic congestive heart failure and history of frequent falls (twice in 2022, none reported in 2023) Plan: 1. Continue androgen deprivation therapy with combination LHRH agonist (Lupron)every 12 weeks and antiandrogen Xtandi daily. 2. Continue bone supportive therapy with zoledronic acid every 12 weeks. Patient was seen . Impression and plan discussed Carolina Mcgee MD [employer], [facility] Divisions of Medical Oncology & Hematology Department of Internal Medicine [place] [id number] This note was generated using a voice recognition system software. Although itwas reviewed by the author prior to finalization, it may still contain incorrectwords, spelling, and punctuation that were not noted when reviewing prior to saving. If a clinically significant typo or inaccurately typed phrase is noted,please notify the author. Clinical Quality Measures Falls Risk Screening/Assistive Devices Have you fallen in the past year?: Yes 11/07/[address] [place] [address]> Date _ Carolina Mcgee MD Cosigner Signature: Date (if applicable) CC: Dr. Dyan Kyle MD ~ [facility]06-17-2025 Progress note Author Carolina Mcgee [facility] Note Date/Time November 07, 2024 2:29 pm [facility] [address] [place] [id number] OFFICE VISIT Date of Service: 11/07/24 1350 MR#: [id number] Acct: [id number] Name: JESS JAMES Rep #: [id number] : 1935 From: Carolina adams MD Age/Sex: 89/M [place] [facility] [place]: Signed HPI Subjective Date of Service 11/07/24 Chief Complaint prostate cancer on treatment History of Present Illness 89-year-old gentleman with no prior history of malignancies who accidentally fell in January 2023 and sustained soft tissue injury mainly the left upper extremity with a pathologic fracture of the left humerus. A diagnostic PSA came back over 500. March 08, 2023 bone scan: IMPRESSION: 1. The multifocal increase in tracer uptake noted in the left mid-distal diaphysis is commensurate with the patient''s known trauma-fracture, likely pathologic. 2. 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 3. Degenerative arthrosis is defined in the left ankle, the bilateral shoulders, the seventh thoracic vertebra. March 12, 2023 orthopedic oncology evaluation at [facility], Dr. Fischer: Advised conservative management. August 07, 2024 bone scan: IMPRESSION: Overall, findings are suggestive of partial interval treatment response. The degree of activity associated with the mid left humeral diaphysis and lower lumbar spine/sacrum is decreased. The metastatic foci of the calvarium present on the prior study are not clearly demonstrated on the current examination. Treatment summary and response: Androgen deprivation therapy started with Xtandi February 2023 and Lupron starting March 29, 2023. Bone supportive therapy with Zometa every 12 weeks starting March 29, 2023 [facility] Medical History (Updated 11/07/24 @ 13:58 by Tiffanie Lucia) Cutaneous horn Congestive heart failure (CHF) Bradycardia Driving safety issue Complete left bundle branch block Cardiomyopathy History of diabetes mellitus Bilateral lower extremity edema Dyspnea Carotid arterial disease Carotid artery bruit Arrhythmia Venous insufficiency of both lower extremities Metastasis to bone Prostate cancer Abnormal CT of the abdomen Bone cancer Pathologic fracture of humerus Nondisplaced transverse fracture of shaft of humerus, left arm, initial encounter for closed fracture Elevated PSA BPH (benign prostatic hyperplasia) Weight loss, non-intentional Flu vaccine need Hypertension Change in skin mole Type 2 diabetes mellitus Bone fracture Surgical History History of dental surgery Family History Father Melanoma Mother Ovarian cancer Social History household members: spouse Smoking Status: Never smoker alcohol intake: never substance use type: does not use what type of physical activity do you participate in: none ROS Constitutional Constitutional: Reports systems reviewed and no addt'l complaints, except as documented; Denies fever(s) or weight loss Eyes Eyes: Reports systems reviewed and no addt'l complaints, except as documented ENT HEENT: Reports systems reviewed and no addt'l complaints, except as documented and hearing loss; Denies headache(s) Cardiovascular Cardiovascular: Reports systems reviewed and no addt'l complaints, except as documented and edema; Denies chest pain with activity Respiratory/Chest Respiratory/Chest: Reports systems reviewed and no addt'l complaints, except as documented; Denies cough, dyspnea or hemoptysis Gastrointestinal Gastrointestinal: Reports systems reviewed and no addt'l complaints, except as documented; Denies change in bowel habits, hematochezia or melena Genitourinary Genitourinary: Reports systems reviewed and no addt'l complaints, except as documented, urinary frequency, urinary incontinence and other Details: Urge incontinence, if not fast enough to go to the bathroom ; Denies hematuria Musculoskeletal Musculoskeletal: Reports systems reviewed and no addt'l complaints, except as documented; Denies back pain or extremity pain Integumentary Integumentary: Reports systems reviewed and no addt'l complaints, except as documented; Denies bleeding lesions or new lesions Neurologic Neurologic: Reports systems reviewed and no addt'l complaints, except as documented; Denies focal weakness, frequent falls or paresthesias Psychiatric Psychiatric: Reports systems reviewed and no addt'l complaints, except as documented Endocrine Endocrinology: Reports systems reviewed and no addt'l complaints, except as documented Hematologic/Lymphatic Hematologic/Lymphatic: Reports systems reviewed and no addt'l complaints, exceptas documented and easy bruising Allergic/Immunologic Allergic/Immunologic: Reports systems reviewed and no addt'l complaints, except as documented Intake Vital Signs 09/26/24 14:20 10/25/24 14:46 11/07/24 13:50 Height 5 ft 10 in 5 ft 10 in 5 ft 10 in Weight: 79.832 kg 79.379 kg 80.739 kg BMI 25.2 25.1 25.5 BP 121/73 H 110/64 130/70 H Blood Pressure Location Lt brachial Lt brachial Lt brachial Position Sitting Sitting Sitting Respiration 16 16 16 Pulse 48 L 48 L 50 L Pulse Source Monitor Monitor Monitor Temp 97.3 F L 97.7 F L 97.9 F Temperature Source Temporal Artery Temporal Artery Pulse Oximetry (%) 93 97 94 Oxygen Delivery Method room air room air room air Intake Agricultural Inspector Required: No Accompanied by: Is patient in pain?: No Allergies shellfish derived Allergy (Mild, Verified 11/07/24 13:54) swelling in throat Medications ?Medication ?Instructions ?Recorded ?Confirmed ?Type enzalutamide 80 mg tablet (Xtandi) 160 mg PO QHS chemo 03/24/23 11/07/24 History sacubitril 49 mg-valsartan 51 mg 1 tab PO BID #60 tabs 12/07/23 11/07/24 Rx tablet (Entresto) carvedilol 25 mg tablet 25 mg PO BID 30 days #60 tab s 01/03/24 11/07/24 Rx empagliflozin 10 mg tablet 10 mg PO DAILY 30 days #30 tabs 02/16/24 11/07/24 Rx (Jardiance) spironolactone 25 mg tablet 25 mg PO LUNCH 90 days #90 tabs 06/29/24 11/07/24 Rx aspirin 81 mg tablet,delayed 81 mg PO QDAY #90 tabs 11/07/24 Rx release (Adult Aspirin Regimen) atorvastatin 10 mg tablet 10 mg PO QDAY #90 tabs 09/1311/07/24 Rx furosemide 40 mg tablet 40 mg PO DAILY PRN 10/25/24 11/07/24 History Have you fallen in the past year?: Yes Central Venous Access Central Venous Access: No Laboratory Tests 01/21/23 02/24/23 03/29/23 08:47 11:51 14:30 PSA Screen 513.00 H Total PSA 823.00 H 539.00 H 05/10/23 06/21/23 08/02/23 11:10 13:58 13:17 PSA Screen Total PSA 32.00 H 7.03 H 1.75 09/13/23 10/25/23 11/30/23 13:53 13:24 11:29 PSA Screen Total PSA 0.81 0.44 0.16 04/10/24 05/23/24 07/04/24 12:57 10:12 13:22 PSA Screen Total PSA 0.03 0.03 0.02 08/15/24 09/26/24 11/07/24 14:53 13:53 13:30 PSA Screen Total PSA < 0.02 < 0.02 < 0.02 Exam Physical Exam Narrative Elderly, frail ECOG 2 Const alert and no apparent distress General Appearance: cooperative, comfortable and frail HEENT normocephalic Face and Sinus: normal facial exam General Ear: hearing grossly impaired Mouth: oral and palatal mucosa normal Eyes General Eye: normal appearance of both eyes Neck supple and no JVD Lymph Lymphatic: no lymphadenopathy noted and lymphedema moderate (Left upper extremity) Resp clear to auscultation bilaterally Cardio regular rate and regular rhythm Jugular Venous Distention: Negative for JVD GI soft to palpation, non-tender and non-distended; Negative for hepatosplenomegaly Back/Spine no thoracic nor lumbar tenderness Extremity Extremity Narrative: Left upper extremity in a sling, left arm in a fixation sleeve. Moderately severe lymphedema of the left forearm. General Extremity: edema right lower extremity moderate and left lower extremitymild; Negative for clubbing or cyanosis Skin Skin Narrative: Left arm was wrapped, patient described it as intact but oozing skin General Skin Exam: ecchymosis Neuro CN's II-XII intact bilaterally, moves all extremities and no focal motor deficits Speech: speech normal Gait (Neuro): normal gait and assistive device used cane Coordination: [id number] test normal Psych mental status grossly normal Coding Level of Care Code Off vis,est,level 4 Exam Problem Focused Diagnoses Prostate cancer C61 Metastasis to bone C79.51 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, subsequent encounter M84.522D Encounter type: subsequent encounter Fracture healing: with routine healing Laterality: left Pathology associated with fracture: neoplastic disease Assessment and Plan Assessment and Plan (1) Prostate cancer: Status: Chronic (2) Metastasis to bone: Status: Chronic (3) Pathologic fracture of humerus: Status: Chronic Qualifiers: Encounter type: subsequent encounter Fracture healing: with routine healing Laterality: left Pathology associated with fracture: neoplastic disease Qualified Code(s): M84.522D - Pathological fracture in neoplastic disease, left humerus, subsequent encounter for fracture with routine healing Plan 89-year-old gentleman who presented after an accidental fall with a pathologic fracture of the left humerus. PSA over 500 diagnostic of metastatic prostate cancer. The patient had the left arm and a fixation sleeve and left upper extremity in asling. Had significant lymphedema that significantly improved over time. His pain is also subsided. Was evaluated by orthopedic oncology at [facility] and conservative management of the fractured left humerus advised. His bone scan shows multiple metastatic bone lesions. He started androgen deprivation therapy March 2023 and has shown favorable response both clinically and by PSA. Chronic comorbid conditions: Diabetes, hypertension, chronic congestive heart failure and history of frequent falls (twice in 2022, none reported in 2023) Plan: 1. Continue androgen deprivation therapy with combination LHRH agonist (Lupron)every 12 weeks and antiandrogen Xtandi daily. 2. Continue bone supportive therapy with zoledronic acid every 12 weeks. Patient was seen . Impression and plan discussed Carolina Mcgee MD [employer], [facility] Divisions of Medical Oncology & Hematology Department of Internal Medicine [place] [id number] This note was generated using a voice recognition system software. Although itwas reviewed by the author prior to finalization, it may still contain incorrectwords, spelling, and punctuation that were not noted when reviewing prior to saving. If a clinically significant typo or inaccurately typed phrase is noted,please notify the author. Clinical Quality Measures Falls Risk Screening/Assistive Devices Have you fallen in the past year?: Yes 11/07/24 1429 <Electronically signed by Carolina romero MD> Date _ Carolina Mcgee MD Cosigner Signature: Date (if applicable) CC: Dr. 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 September 12, 2024 10:10am 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 September 1:49pm Pathologic fracture of humerus chron September 26, 2024 1:49pm Prostate cancer chronic September 26, 2024 1:49pm BPH (benign prostatic hyperplasia) chronic October 25, 2024 2 :05pm Congestive heart failure (CHF) chron ic October 25, 2024 2:05pm Hypertension chronic October 25 2:05pm Type 2 diabetes mellitus chronic October 25, 2024 2:05pm 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 October 222024 1:17pm Pathologic fracture of humerus chron November 07, 2024 1:17pm Prostate cancer chronic October 1:17pm [facility] Work Phone: 1(700) 629-243004-22-2025 Evaluation note* Diagnosis Onset Date Resolution Status Admit Date 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 September 12 10:10am Hypertension chronic September 12, 2024 10:10am Left bundle branch block chronic September 12, 2024 10:10am 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 September 12, 2024 10:10am 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 September 1:49pm Pathologic fracture of humerus chron ic September 26, 2024 1:49pm Prostate cancer chronic September 26, 2024 1:49pm BPH (benign prostatic hyperplasia) chronic October 25, 2024 2 :05pm Congestive heart failure (CHF) chron ic October 25, 2024 2:05pm Hypertension chronic October 25 2:05pm Type 2 diabetes mellitus chronic October 25, 2024 2:05pm 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 October 222024 1:17pm Pathologic fracture of humerus chron ic November 07, 2024 1:17pm Prostate cancer chronic October 1:17pm Fracture of femoral neck, ri ght, closed acute December 18, 2024 2:35pm Status post hemiarthroplasty of right hip acute December 18, 2024 2:35pm [facility] Work Phone: [phone]) 629-123304-22-2025 Evaluation note* Diagnosis Onset Date Resolution Status Admit Date 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 September 12 10:10am Hypertension chronic September 12, 2024 10:10am Left bundle branch block chronic September 12, 2024 10:10am 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 September 12, 2024 10:10am 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 September 1:49pm Pathologic fracture of humerus chron ic September 26, 2024 1:49pm Prostate cancer chronic September 26, 2024 1:49pm BPH (benign prostatic hyperplasia) chronic October 25, 2024 2 :05pm Congestive heart failure (CHF) chron ic October 25, 2024 2:05pm Hypertension chronic October 25 2:05pm Type 2 diabetes mellitus chronic October 25, 2024 2:05pm 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 October 222024 1:17pm Pathologic fracture of humerus chron ic November 07, 2024 1:17pm Prostate cancer chronic October 1:17pm Fracture of femoral neck, ri ght, closed acute December 18, 2024 2:35pm Status post hemiarthroplasty of right hip acute December 18, 2024 2:35pm Fracture of femoral neck, ri ght, closed acute January 05 8:59am Status post hemiarthroplasty of right hip acute January 05 8:59am [facility] Work Phone: [phone]) 754-215603-25-2025 Evaluation note* Diagnosis Onset Date Resolution Status Admit Date 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 August 15, 2024 2:18pm Pathologic fracture of humerus chron ic August 15, 2024 2:18pm Prostate cancer chronic July h2024 2:18pm 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 September 12 10:10am Hypertension chronic September 12, 2024 10:10am Left bundle branch block chronic September 12, 2024 10:10am 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 September 12, 2024 10:10am 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 September h, 2024 1:49pm Pathologic fracture of humerus chron September 26, 2024 1:49pm Prostate cancer chronic September 26, 2024 1:49pm BPH (benign prostatic hyperplasia) chronic October 25, 2024 2 :05pm Congestive heart failure (CHF) chron October 25, 2024 2:05pm Hypertension chronic October 25 2:05pm Type 2 diabetes mellitus chronic October 25, 2024 2:05pm 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 October 222024 1:17pm Pathologic fracture of humerus chron November 07, 2024 1:17pm Prostate cancer chronic October 1:17pm [facility] Work Phone: 1(915) 737-797303-18-2025 Nuclear medicine Diagnostic study note [facility] Imaging Services [address] [place], [place] [id number] Bone Scan Whole Body MR#: [id number] Acct: [id number] Name: JESS JAMES Rep #: [id number] : 1935 M 89 From: iBju Araujo DO PCP: Dr. Dyan Kyle MD Status: R EG CLI Study:Bone Scan Whole Body Date of Exam: 08/07/24 Exam# [id number] Ordering Dr: Carolina Mcgee MD PROCEDURE: Nuclear medicine bone scan. REASON FOR EXAM: Follow-up metastatic prostate cancer. TECHNIQUE: After the intravenous administration of 28 mCi technetium 99 M MDP, scintigraphic images of the axial and appendicular skeletal structures were obtained. COMPARISON: Prior nuclear medicine bone scan 03/08/2023 FINDINGS: There is activity in the left kidney and faint activity in the right kidney, similar to the previous study. Tiny focus of activity in the intertrochanteric region of the proximal right femur is similar. Decreased activitymid left humeral diaphysis. Activity in the region of the proximal sacrum/lower lumbar region is slightly decreased. Foci of activity projecting over the calvarium on the prior study are not clearly demonstrated on the current examination. Similar activity of the medial clavicles, greatest on the left. Activity of the distal left clavicle is slightly decreased. NM/Bone Scan Whole Body IMPRESSION: Overall, findings are suggestive of partial interval treatment response. The degree of activity associated with the mid left humeral diaphysis and lower lumbar spine/sacrum is decreased. 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 Reading Location: [facility] CC: Dr. Dyan Kyle MD; Dr. Carolina Mcgee MD ~ [employer]: Signed [facility]02-11-2025 Evaluation note* Diagnosis Onset Date Resolution Status Admit Date 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 Februa 2024 1:19pm Pathologic fracture of humerus chron July 04, 2024 1:19pm Prostate cancer chronic July 04, 2024 1:19pm 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 August 15, 2024 2:18pm Pathologic fracture of humerus chron August 15, 2024 2:18pm Prostate cancer chronic July 2:18pm 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 September 12 10:10am Hypertension chronic September 12, 2024 10:10am Left bundle branch block chronic September 12, 2024 10:10am 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 September 12, 2 025 10:10am 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 September 1:49pm Pathologic fracture of humerus chron September 26, 2024 1:49pm Prostate cancer chronic September 26, 2024 1:49pm [facility] Work Phone: [phone] Evaluation note* Diagnosis Onset Date Resolution Status Admit Date Bradycardia acute April 26, 2024 4:33pm Driving safety issue acute Dece mber 2023 4:33pm 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 April 26, 2024 4:33pm Hypertension chronic April 4:33pm Type 2 diabetes mellitus chronic April 26, 2024 4:33pm 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 Decemb er 2023 9:52am Prostate cancer chronic May 23, 2024 9:52am 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 Februa ry 2024 1:19pm Prostate cancer chronic July 04, 2024 1:19pm Pathologic fracture of humerus inactive July 04, 2 1:19pm [facility] Work Phone: [phone]) 370-437411-20-2023 NoteIMPRESSION: 1. Stable alignment and progressive healing of a mildly angulated pathologic fracture at the mid left humeral diaphysis. Underlying aggressive lytic lesion with cortical invasion. RADIOLOGY 02-13-2023 Progress note Author [facility] February 13, 2023 4:06pm Note Date/Time February 13, 2023 8:13am [facility] Medical Records Department [address] [place] [address] Progress Note - Hospitalist 02/13/23 0811 MR#: [id number] Acct: [id number] Name: JESS JAMES Rep #:[id number] : 1935 87 From: Ted Loya PCP: Dr. Dyan Kyle MD Status:A DM IN Location: [facility] WA246-2 Reason for Visit Reason for Visit: Diagnoses Cellulitis of left upper limb (02/12/23) Unspecified fracture of shaft of humerus, left arm, initial encounter for closedfracture (02/12/23) Objective Data Objective Data Vital Signs: Vital Signs Temp Pulse Resp BP Pulse Ox O2 Del Method 98.4 F 100 16 97/67 93 Room Air 02/13/23 04:30 02/13/23 04:30 02/13/23 04:30 02/13/23 04:30 02/13/23 04:30 02/13/23 04:30 Oxygen Delivery Method Room Air Weight: 178 lb 2.136 oz Body Mass Index (BMI) 25.5 Intake & Output: Intake and Output for Last 24 Hours 02/11/23 02/12/23 02/13/23 23:59 23:59 23:59 Intake Total 837 / 837 499 / 499 Output Total 200 / 200 Balance 837 / 837 299 / 299 Lab / Micro Data 02/13/23 05:29 02/13/23 05:29 Labs: Laboratory Results - last 24 hr 02/12/23 14:18: WBC 7.7, RBC 4.41 L, Hgb 14.4, Hct 44.4, MCV 100.7 H, MCH 32.7 H, MCHC 32.4, RDW Std Deviation 48.6 H, RDW Coeff of Danilo 13.0, Plt Count 160, MPV9.2, Immature Gran % (Auto) 0.600, Neut % (Auto) 66.8, Lymph % (Auto) 23.5, Terry% (Auto) 8.2, Eos % (Auto) 0.5, Baso % (Auto) 0.4, Absolute Neuts (auto) 5.2, Absolute Lymphs (auto) 1.81, Nucleated RBC % 0, Sodium 142, Potassium 3.6, Chloride 110 H, Carbon Dioxide 31.0, Anion Gap 1 L, BUN 28 H, Creatinine 1.06, Estim Creat Clear Calc 52.61, Est GFR (MDRD) Af Amer 85, Est GFR (MDRD) Non-Af 70, BUN/Creatinine Ratio 26.4 H, Glucose 145 H, Calcium 8.9, Magnesium 2.5 02/12/23 17:17: POC Glucose 76 02/12/23 21:30: POC Glucose 170 H 02/13/23 05:29: WBC 7.4, RBC 4.06 L, Hgb 13.5, Hct 41.0, MCV 101.0 H, MCH 33.3 H, MCHC 32.9, RDW Std Deviation 48.1 H, RDW Coeff of Danilo 12.9, Plt Count 144 L, MPV 9.7, Immature Gran % (Auto) 0.400, Neut % (Auto) 68.9, Lymph % (Auto) 21.9, Terry % (Auto) 7.5, Eos % (Auto) 0.8, Baso % (Auto) 0.5, Absolute Neuts (auto) 5.1, Absolute Lymphs (auto) 1.61, Nucleated RBC % 0, Sodium 143, Potassium 4.0, Chloride 112 H, Carbon Dioxide 26.0, Anion Gap 5, BUN 20 H, Creatinine 0.92, Estim Creat Clear Calc 60.61, Est GFR (MDRD) Af Amer 101, Est GFR (MDRD) Non-Af 83, BUN/Creatinine Ratio 21.8 H, Glucose 134 H, Calcium 8.3 L, Total Bilirubin 0.70, AST 10 L, ALT 12 L, Alkaline Phosphatase 89, Total Protein 5.8 L, Albumin 2.6 L, Globulin 3.2, Albumin/Globulin Ratio 0.8 L Radiography Diagnostic Testing: Radiology Impression Humerus X-Ray 02/12/23 14:20 IMPRESSION: Transverse fracture through the mid humeral diaphysis. This is suspicious for a pathological fracture. Electronically Signed: Jai Menjivar MD at 14:42 EDT , Physical Exam Narrative Seen and examined. Patient history. He had a ground-level trip and fall on 918 55-year-old he had some prior left shoulder decreased mobility as he states he was mainly right-handed person denies pain, prior dislocation or fracture of the left upperextremity or tomorrow or osteomyelitis. Physical exam General: Alert, Oriented x3, Cooperative HEENT: Atraumatic, PERRLA, EOMI, Normocephalic Oral: No Gingival or Mucosal Lesions/ Ulcerations Neck: Supple, No JVD, Negative Carotid Bruits Lungs: Air entry diminished in bilateral lung bases. No crepitation/rhonchi Cardiovascular: Regular rate, Regular Rhythm, Normal S1, Normal S2, No murmurs Abdomen: Bowel Sounds Present, Soft, Non Tender, Non-Distended : No renal angle tenderness. No suprapubic tenderness. Extremities: No edema, Capillary Refill Less than 3 Seconds Skin: No rashes, No breakdown Musculoskeletal: Left upper extremity swath. Tenderness present over left midshaft of humerus. Left shoulder nontender but mobility/ROM could not be checked because of fracture. No Tenderness to Palpation of other joints or Extremities Neurological: Cranial nerves II-XII grossly intact, DTR 2+/4. No acute focal neurological deficit. Psych/Mental Status: Normal Affect, Appropriate. Assessment & Plan Assessment/Plan (1) Closed left humeral fracture: QUALIFIERS: Encounter type: initial encounter Humerus Location: shaft Fracture morphology: transverse Fracture alignment: nondisplaced Qualified Code(s): S42.325A - Nondisplaced transverse fracture of shaft of humerus, left arm, initial encounter for closed fracture (2) Cellulitis of arm, left: PLAN: Plan The patient is an 87 y/o M is admitted with left arm discomfort and swelling as well as redness, difficulty in ROM, with continued worsening in last 48 hours with no fevers or chills was admitted with left humeral transverse fracture #1. Mechanical fall with left humeral transverse fracture, nondisplaced of the midshaft/diaphysis, complicated by concurrent Acute Cellulitis with possibility of pathological fracture: [facility] Patient wasevaluated by the orthopedic surgeon and we discussed. X-rays reviewed and showsmoth-eaten appearance suggestive of pathological fracture history of injury, osteoporosis, tumor or vascular Currently nonweightbearing, sling and swath.Dr. Starks advised Trujillo clamshell type brace to the left upper arm for better stabilization early range of motion. Patient on IV Unasyn. Upper extremity MRIs done but not reported. #2. Initially reported unintentional weight loss: Patient has weight loss of about 6 to 7 pounds last several months. History does not lead to suspicion forfocal cancer #3. Diabetes mellitus type II, reportedly diet controlled: glucose upon presentation 145, 01/20/23 POC in office with PCP noted to be 6.2%, mildly increased from the prior 5.7%. Accu-Cheks AC at bedtime with Humalog sliding scale #4. Hypertension: Blood pressure in normal range. #5. BPH: Currently no obstructive or irritative acute lower urinary tract symptoms. #6. DVT prophylaxis: SCDs, hold chemoprophylaxis pending orthopedic surgery evaluation in case of OR needs. #7. CODE status: Patient does note have HCPOA or LW in place. Notes his who is present would be his decision maker if he was unable. Discussed CODE status at length including difference between FULL code, DNR-CCA and DNR-CC status. He notes several mates who decided to have no interventions and he is current unsure. Following discussions about the differences in these status, requested to be placed as full code status at this time but would think further on it and if he changes his mind will notify staff. Discussed with the patient's 's and son regarding diagnosis, conservative management, expected hospital course and possible discharge Laboratory Results 02/12/23 14:18: Magnesium 2.5 02/12/23 17:17: POC Glucose 76 02/12/23 21:30: POC Glucose 170 H 02/13/23 05:29: WBC 7.4, RBC 4.06 L, Hgb 13.5, Hct 41.0, MCV 101.0 H, MCH 33.3 H, MCHC 32.9, RDW Std Deviation 48.1 H, RDW Coeff of Danilo 12.9, Plt Count 144 L, MPV 9.7, Immature Gran % (Auto) 0.400, Neut % (Auto) 68.9, Lymph % (Auto) 21.9, Terry % (Auto) 7.5, Eos % (Auto) 0.8, Baso % (Auto) 0.5, Absolute Neuts (auto) 5.1, Absolute Lymphs (auto) 1.61, Nucleated RBC % 0, Sodium 143, Potassium 4.0, Chloride 112 H, Carbon Dioxide 26.0, Anion Gap 5, BUN 20 H, Creatinine 0.92, Estim Creat Clear Calc 60.61, Est GFR (MDRD) Af Amer 101, Est GFR (MDRD) Non-Af 83, BUN/Creatinine Ratio 21.8 H, Glucose 134 H, Calcium 8.3 L, Total Bilirubin 0.70, AST 10 L, ALT 12 L, Alkaline Phosphatase 89, Total Protein 5.8 L, Albumin 2.6 L, Globulin 3.2, Albumin/Globulin Ratio 0.8 L 02/13/23 07:12: POC Glucose 149 H Charges/Coding Visit Charges Inpatient E&M: 23844 Subs Hosp L2 02/13/23 1606 <Electronically signed by Ted Lee MD> Cosigner Signature (if applicable): CC: ~ Signed [facility] Work Phone: 1(209) 144-690109-23-2023 Consult note Author Theodore Starks [facility] February 13, 2023 10:45am Note Date/Time February 13, 2023 10:45am [facility] Medical Records Department [address] [place] [address] Consultation 02/13/23 1039 MR#: [id number] Acct: [id number] Name: JESS JAMES Rep #:[id number] : 1935 87 From: Theodore Starks DO PCP: Dr. Dyan Kyle MD Status:A DM IN Location[place] [facility] [id number] Assessment & Plan Assessment/Plan (1) Cellulitis of arm, left: (2) Nondisplaced transverse fracture of shaft of humerus, left arm, initial encounter for closed fracture: PLAN: Plan X-ray concerning for pathologic fracture ordered MRI left humerus, if underlyingpathologic process would need orthopedic oncology for biopsy if wanted. Patient would benefit from a Trujillo clamshell type brace to the left upper arm which would allow better stabilization and early range of motion that his current splint in addition will allow elbow range of motion immediately to prevent stiffness. Antibiotic treatment for cellulitis left upper extremity. HPI Consult Data Date of Consult: 02/13/23 HPI Narrative Reason for Consultation: Left transverse humerus fracture HPI Narrative: JESS JAMES, is a 87 M who presents after ground-level fall on carpet 02/08/2023 onto his left upper extremity. He did not present to the emergency room until 02/12/2023. He does have some cellulitis on his left upper extremity that is being treated. He does not have any known history of cancer however he does have a family history for melanoma and he does have a skin lesion on his right shoulder that was going to be worked up by dermatology. He did have x-rays in the emergency room department that demonstrated transverse left humeral shaft fracture that was in relatively good alignment however did have moth-eaten appearance consistent concerning for pathologic fracture. [facility] Medical History (Updated 02/13/23 @ 10:[address] Theodore Borruso, DO) Bone fracture BPH (benign prostatic hyperplasia) Change in skin mole Elevated PSA Flu vaccine need Hypertension Type 2 diabetes mellitus Weight loss, non-intentional Home Medications multivitamin (Daily Multi-Vitamin tablet) 1 tab PO DAILY 02/12/23 [History Last Taken 02/12/23] Allergy/AdvReac Type Severity Reaction Status Date / Time shellfish derived Allergy Mild swelling Verified 02/12/23 12:54 in throat Family History Father Melanoma Mother Ovarian cancer Surgical History (Updated 02/12/23 @ 15:[address] Mariana Brown MD) History of dental surgery Social History (Updated 02/12/23 @ 15:[address] Mariana Brown MD) household members: spouse Smoking Status: Never smoker alcohol intake: never substance use type: does not use what type of physical activity do you participate in: none Physical Exam Const alert, oriented x3 and no apparent distress General Appearance: cooperative and comfortable Extremity Extremity Narrative: Compartments soft arm and forearm and hand he is neurovascular intact radial median ulnar AIN PIN axillary , musculoocutaneous nerves. palpable radial pulse. Wrist capillary refill he is in a posterior slab splint and sling. Lab / Micro Data 02/13/23 05:29 02/13/23 05:29 Labs: Laboratory Results - last 24 hr 02/12/23 14:18: WBC 7.7, RBC 4.41 L, Hgb 14.4, Hct 44.4, MCV 100.7 H, MCH 32.7 H, MCHC 32.4, RDW Std Deviation 48.6 H, RDW Coeff of Danilo 13.0, Plt Count 160, MPV9.2, Immature Gran % (Auto) 0.600, Neut % (Auto) 66.8, Lymph % (Auto) 23.5, Terry% (Auto) 8.2, Eos % (Auto) 0.5, Baso % (Auto) 0.4, Absolute Neuts (auto) 5.2, Absolute Lymphs (auto) 1.81, Nucleated RBC % 0, Sodium 142, Potassium 3.6, Chloride 110 H, Carbon Dioxide 31.0, Anion Gap 1 L, BUN 28 H, Creatinine 1.06, Estim Creat Clear Calc 52.61, Est GFR (MDRD) Af Amer 85, Est GFR (MDRD) Non-Af 70, BUN/Creatinine Ratio 26.4 H, Glucose 145 H, Calcium 8.9, Magnesium 2.5 02/12/23 17:17: POC Glucose 76 02/12/23 21:30: POC Glucose 170 H 02/13/23 05:29: WBC 7.4, RBC 4.06 L, Hgb 13.5, Hct 41.0, MCV 101.0 H, MCH 33.3 H, MCHC 32.9, RDW Std Deviation 48.1 H, RDW Coeff of Danilo 12.9, Plt Count 144 L, MPV 9.7, Immature Gran % (Auto) 0.400, Neut % (Auto) 68.9, Lymph % (Auto) 21.9, Terry % (Auto) 7.5, Eos % (Auto) 0.8, Baso % (Auto) 0.5, Absolute Neuts (auto) 5.1, Absolute Lymphs (auto) 1.61, Nucleated RBC % 0, Sodium 143, Potassium 4.0, Chloride 112 H, Carbon Dioxide 26.0, Anion Gap 5, BUN 20 H, Creatinine 0.92, Estim Creat Clear Calc 60.61, Est GFR (MDRD) Af Amer 101, Est GFR (MDRD) Non-Af 83, BUN/Creatinine Ratio 21.8 H, Glucose 134 H, Calcium 8.3 L, Total Bilirubin 0.70, AST 10 L, ALT 12 L, Alkaline Phosphatase 89, Total Protein 5.8 L, Albumin 2.6 L, Globulin 3.2, Albumin/Globulin Ratio 0.8 L Radiology Impression Humerus X-Ray 02/12/23 14:20 IMPRESSION: Transverse fracture through the mid humeral diaphysis. This is suspicious for a pathological fracture. Electronically Signed: Jai Menjivar MD at 14:42 EDT , 02/13/23 2291 <Electronically signed by Theodore Starks DO> Cosigner Signature (if applicable): CC: Dr. Mariana Brown MD; Dr. Dyan Kyle MD; Dr. Theodore Starks DO~ Signed [facility] Work Phone: 1(672) 457-854609-22-2023 Discharge summary Author Simeon Gusman [facility] February 12, 2023 4:47pm Note Date/Time February 12, 2023 2:16pm [facility] Medical Records Department [address] [place] [address] Emergency Department Summary 02/12/23 MR#: [id number] Acct: [id number] Name: JESS JAMES Rep #:[id number] : 1935 87 From: Simeon Gusman MD PCP: Dr. Dyan Kyle MD Status:A DM IN Location: [facility]3 QY877-7 HPI History of Present Illness HPI Narrative: On Wednesday injuring his left upper extremity. Has developed pain, redness and swelling in the forearm and elbow. Was seen today in urgent care they did x-rays of the elbow, left forearm, left hand and wrist. There is soft tissue swelling but no broken bones. Sent to the emergency department. Chief Complaint: Upper Extremity Injury Informant: patient and spouse/S.O. Occured/Mechanism Mechanism/Context: Yes injury and Yes blunt trauma Onset/Context/Timing Onset: Days Context: Sudden Onset Timing: Continuous Quality of Pain: Dull and Aching Current Severity: Moderate Maximum Severity: Moderate Associated Symptoms Associated Symptoms: Negative for Parasthesia Narrative Narrative: 87-year-old male no seen past medical history. States that he tripped and fell at home over his slippers on Wednesday morning since that time he has developed redness and swelling to his left elbow and forearm. Trouble using the left arm. Denies shoulder pain. Denies wrist or hand pain. Was seen in urgent care earlier today had x-ray showing soft tissue swelling but no fracture. He was sent to the emergency department. Prior similar symptoms: No Recent Illness/Hospitalization: No PFSH PFSH Medical History (Updated 02/12/23 @ 15:[address] Mariana Brown MD) Bone fracture BPH (benign prostatic hyperplasia) Change in skin mole Elevated PSA Flu vaccine need Hypertension Type 2 diabetes mellitus Weight loss, non-intentional Home Medications multivitamin (Daily Multi-Vitamin tablet) 1 tab PO DAILY 02/12/23 [History Last Taken 09/22/23] Allergy/AdvReac Type Severity Reaction Status Date / Time shellfish derived Allergy Mild swelling Verified 02/12/23 12:54 in throat Family History Father Melanoma Mother Ovarian cancer Surgical History (Updated 02/12/23 @ 15:[address] Mariana Brown MD) History of dental surgery Social History (Updated 02/12/23 @ 15:[address] Mariana Brown MD) household members: spouse Smoking Status: Never smoker alcohol intake: never substance use type: does not use what type of physical activity do you participate in: none ROS ROS ED ROS Narrative Denies recent illness. Review of Systems ROS Unobtainable: Denies due to encephalopathy Constitutional Constitutional ED: Denies chills or fever(s) Eyes Eyes: Denies blurry vision ENT ENT ED: Denies ear pain Cardiovascular Cardiovascular: Denies chest pain or palpitations Respiratory/Chest Respiratory/Chest: Denies cough or dyspnea Gastrointestinal Gastrointestinal: Denies abdominal pain Genitourinary Genitourinary ED: Denies dysuria or hematuria Musculoskeletal Musculoskeletal: Denies back pain Integumentary Denies abscess Neurologic Neurologic: Denies headache(s) Psychiatric Psychiatric: Denies anxiety Endocrine Endocrinology: Denies cold intolerance Hematologic/Lymphatic Hematologic/Lymphatic: Denies easy bleeding or easy bruising Allergic/Immunologic Allergic/Immunologic ED: Denies mouth swelling or tongue swelling EXAM Physical Exam Narrative Exam Narrative: 87-year-old male. Vital signs stable afebrile. HEENT exam unremarkable atraumatic. Moist mucous membranes. Neck nontender. Back spine nontender. Lungs clear to auscultation bilaterally. Heart regular rhythm rate about 70 no murmur. Chest wall and ribs nontender. Abdomen soft nontender. Right upper and both lower extremities are nontender. No deformity. Normal range of motion. Normal strength. He does have 1+ pitting edema both lower extremities which is chronic. The left shoulder is nontender is able to shrug the shoulder. There is no deformity. From the left elbow down to the left hand is swollen. Redness consistent with cellulitis of the elbow and proximal and mid forearm. There does not appear to be a septic joint. He can flex and extend the elbow. He has a strong radial pulse. He has physical education department chair strength in his left hand. And sensation. Neurologically he is awake and alert. Answering questions and following commands. Const Vital Signs: 02/12/23 12:54 Temperature 97.8 F Temperature Source Temporal Pulse Rate 74 Respiratory Rate 18 Blood Pressure 141/89 H Blood Pressure Mean 106 Pulse Ox 97 Oxygen Delivery Method Room Air Positive well nourished and well developed; Negative for cachectic, contracturesor unkempt General Appearance ED: well developed and NAD; Negative for unkempt, cachectic, contractures, cyanotic or diaphoretic Nutritional Appearance: Negative for cachectic HEENT Reports moist mucous membranes normocephalic and atraumatic; Negative for trauma or tenderness Eyes PERRL and EOMs intact bilaterally General Eye ED: Negative for other Neck full ROM and supple General: Negative for tenderness Lymph Lymphatic: Negative for other Chest Wall inspection of chest normal and palpation of chest normal Chest: Negative for other Resp normal respiratory effort and clear to auscultation bilaterally Effort and Inspection: Negative for pain with movement Auscultation: Negative for rales, rhonchi, wheezes or diminished lung sounds Cardio regular rate, regular rhythm, S1 normal heart sound, S2 normal heart sound and no murmurs Rate: Negative for bradycardia or tachycardic GI non-tender, non-distended and no masses Inspection: Negative for abdominal distention Auscultation: normoactive bowel sounds Palpation: soft; Negative for tender or guarding Bladder / Kidney Exam: No other Back/Spine no CVA tenderness General Back: Negative for CVA tenderness Cervical Spine: Negative for cervical spine tenderness Thoracic Spine / Upper Back: Negative for thoracic spinal tenderness Lumbar Spine / Lower Back: Negative for lumbar spinal tenderness Extremity Negative for normal to inspection Extremity Narrative: Left arm cellulitis. From the elbow to the wrist. Normal physical education department chair strength. Normal radial pulse. Swelling of the forearm, elbow and hand. The proximal humerus is nontender. No deformity. He is able to shrug his shoulder. Normal touch sensation in his hand. Normal radial pulse. General Extremety ED: Yes edema General Extremity: edema Neuro oriented x3, CN's II-XII intact bilaterally and moves all extremities Sensorium / Orientation: alert, oriented to person, oriented to place and oriented to time; Negative for orientation impaired, lethargic or stuporous Motor Exam: strength 5/5 throughout Psych mental status grossly normal Appearance: Negative for unkempt Attitude: No agitated Mood & Affect: Negative for depressed, anxious or tearful Skin Skin Narrative: Cellulitis left forearm. General Skin Exam: Negative for petechiae Lesions: no lesions Rashes: No no rashes MDM MDM MDM Narrative Medical decision making narrative: There is cn3-[id number]-dwu male who has had recent falls. Is soft tissue swelling tohis left arm. There is also cellulitis. Will be started on IV Unasyn. Screening labs to be obtained. He had x-rays already done at the urgent care today I reviewed them the elbow, forearm, wrist and hand have no acute fractures. Soft tissue swelling. I am can obtain an x-ray of his humerus but Ranjith not believe there to be a fracture. No signs of a septic joint and he can flex and extend the elbow and the wrist. Repeat exam patient doing well at 2:58 PM. Given morphine for pain Zofran to prevent nausea. Will be placed in a long arm posterior splint of the left upperarm to immobilize the midshaft humerus fracture. He will be admitted to medicine and they can consult orthopedics. History & Record Review Discussion w/independent historian: Patient and Family Additional record(s) reviewed:: Prior inpatient record, Prior outpatient record,Prior ED visit and Prior labs Lab Data Attestation: I reviewed the patient's lab results. Lab results narrative: CBC unremarkable. White count of 7. H&H 14 and 44. Chemistries unremarkable other than BUN 28 creatinine 1. Glucose 145. Admitting physician ordered a noninvasive study of the left upper extremity there was no signs of any DVT. Radiography Diagnostic Testing: Left humerus x-ray 2 views interpreted by myself shows a midshaft humerus fracture with mild angulation. Procedures Upper Extremity Splints Upper Extremity Splint: Orthoglass and Long arm Splint Fabrication: Fabricated Location: Left Discharge Plan Dx/Rx/DC Orders Clinical Impression: Fall, Cellulitis of arm, left, Closed left humeral fracture, History of diabetes mellitus Disposition Disposition: Acute Care Hospital [facility] What to do if you have Problems For any increased pain, shortness of breath, bleeding, nausea or vomiting, chestpain, or any unexpected problems, contact your Primary Care Provider. Call [facility] ([phone]) or report to the closest Emergency Room. Call 911 if necessary. 02/12/23 8876 <Electronically signed by Simeon Gusman MD> Cosigner Signature (if applicable): CC: Dr. Dyan Kyle MD ~ Signed [facility] Work Phone: 1(282) 671-688809-22-2023 History and physical note Author Mariana Brown [facility] February 12, 2023 3:54pm Note Date/Time February 12, 2023 3:32pm [facility] Medical Records Department [address] [place] [address] H&P Exam - Hospitalist 02/12/23 1528 MR#: [id number] Acct: [id number] Name: JESS JAMES Rep #:[id number] : 1935 87 From: Mariana Brown MD PCP: Dr. Dyan Kyle MD Status:A DM IN [place] [facility] [id number] HPI - General General Date of Admission: 02/12/23 Date of Service: 02/12/23 Chief Complaint: LUE pain, redness, swelling s/p fall. HPI Narrative The patient is an 87 y/o M w/ PMHx: BPH, HTN, Diabetes mellitus type II who presents to the [facility] ED on 02/12/23 with history of mechanical fall on 02/08/23 with unclear injury pattern but since then left arm discomfort and swelling as well as redness prompting initially evaluation at the urgent care earlier in theday reporting difficulty moving it since with increased redness and swelling over the last 48 hours with no fevers or chills with plain films at their site with specifically of forearm, hand and elbow film with no obvious findings per report as well as no acute finding per radiology follow-up read at that time however encouraged ED follow-up given appearance and ongoing discomfort. In theED upon arrival patient with significant swelling from the left elbow down to the left hand with erythema from the elbow region as well as in the proximal andmid forearm consistent with cellulitic findings with appropriate sensation and physical education department chair strength with dressing and splint taken down for duplex while in the room. Discussed weight loss as patient had noted initially unintentional weight loss however from discussion starting in 2019 when he had an elevated hemoglobin A1c he did alter his diet notably and lost weight with most recently potentially over the last several months a 6 to 7 pound weight loss but he does report that this amount of weight was not intentional. With dressing and splint takedown inthe room patient reporting pain increased to the left upper extremity with muscle fasciculations with pain dull/aching/throbbing 8 out of 10 in severity work-up in the ED included vital signs with T97.8, heart rate 74, BP 141/89, respiratory rate 18, 97% on room air, CBC with WBC 7.7, hemoglobin 14.4, platelet 160 without marked shift, BMP with chloride 110, BUN/creatinine 28/1.06, glucose 145 otherwise no marked findings, plain film of the left humerus with a transverse fracture through the mid humeral diaphysis suspicious for pathological fracture. Given findings on plain film of the humerus patient was placed in a long-arm posterior splint to immobilize the midshaft humeral fracture. In the ED patient ministered Unasyn, morphine 4 mg IV x1, Zofran 4 mgIV x1. ED physician discussed case with Dr. Starks Orthopedic surgery who notedintention to see patient in consult. [facility] Medical History (Updated 02/12/23 @ 15:[address] Mariana Brown MD) Bone fracture BPH (benign prostatic hyperplasia) Change in skin mole Elevated PSA Flu vaccine need Hypertension Type 2 diabetes mellitus Weight loss, non-intentional Home Medications multivitamin (Daily Multi-Vitamin tablet) 1 tab PO DAILY 02/12/23 [History Last Taken 02/12/23] Allergy/AdvReac Type Severity Reaction Status Date / Time shellfish derived Allergy Mild swelling Verified 02/12/23 12:54 in throat Family History Father Melanoma Mother Ovarian cancer Surgical History (Updated 02/12/23 @ 15:[address] Mariana Brown MD) History of dental surgery Social History (Updated 02/12/23 @ 15:[address] Mariana Brown MD) household members: spouse Smoking Status: Never smoker alcohol intake: never substance use type: does not use what type of physical activity do you participate in: none ROS ROS Narrative Admission Review of Systems: CONSTITUTIONAL: No weight loss, fever, chills, + weakness or fatigue. HEENT: Eyes: No visual loss, blurred vision, double vision or yellow sclerae. Ears, Nose, Throat: No hearing loss, sneezing, congestion, runny nose or sore throat. SKIN: + Left upper extremity erythema, edema, pain. CARDIOVASCULAR: + Left upper extremity pain status post fall otherwise no peripheral l edema. No chest pain, chest pressure or chest discomfort, palpitations, orthopnea, syncopal events. RESPIRATORY: No shortness of breath, cough or sputum, wheezing, hemoptysis. GASTROINTESTINAL: No anorexia, nausea, vomiting or diarrhea, abdominal pain, melena, BRBPR. GENITOURINARY: No dysuria, frequency, urgency or retention. NEUROLOGICAL: No headache, dizziness, syncope, paralysis, ataxia, numbness or tingling in the extremities, focal weakness, change in bowel or bladder control,seizure. MUSCULOSKELETAL: + muscle, back pain, joint pain or stiffness. HEMATOLOGIC: + Easy bleeding or bruising. LYMPHATICS: No enlarged nodes. No history of splenectomy. PSYCHIATRIC: No history of depression or anxiety. ENDOCRINOLOGIC: No reports of sweating, cold or heat intolerance. No polyuria orpolydipsia. ALLERGIES: + history of significant shellfish allergy. Vital Signs Vital Signs Vital Signs: 02/12/23 12:54 02/12/23 14:32 Temperature 97.8 F Temperature Source Temporal Pulse Rate 74 77 Respiratory Rate 18 20 H Blood Pressure 141/89 H 150/67 H Blood Pressure Mean 106 94 Pulse Ox 97 98 Oxygen Delivery Method Room Air Room Air Weight Weight: 178 lb Body Mass Index (BMI) 25.5 Physical Exam Narrative Physical Examination: General: Awake, alert, oriented x 3 and cooperative, seated upright in the ED bed in no apparent distress but with takedown of the splint for duplex he does report 10 out of 10 focal pain to the left upper extremity with some shaking andmuscle fasciculation associated. Skin: Normal color, normal turgor, no icterus, no cyanosis except significant swelling from the left elbow down to the left hand with erythema from the elbow region as well as in the proximal and mid forearm as well as occasional staged ecchymoses and abrasion to the extremities. HEENT: AT/NC, EOMI, PERRLA, mildly dry MM, no carotid bruits or JVD noted. Lungs: CTA bilaterally, moderate effort, mild decrease BL bases, no rales, ronchi or wheezing. Heart: Regular rate and rhythm; no gallop, rub audible. Abdomen: Soft, NTTP, ND, hyperactive BS, no HSM. Extremities: No cyanosis, no clubbing, see skin as noted above. Neurological: Patient awake, alert, oriented as noted, cognitive function intact; pupils equally reactive to light and accommodation, cranial nerves grossly normal, moving all 4 extremities except extremely limited left upper extremity movement given fracture and pain elicited as well as initially splint in place, strength accordingly moderately globally decreased. Psychiatric: Affect appears uncomfortable, fatigued, no acute evidence of depressive or anxiety feelings. Results Lab / Micro Data 02/12/23 14:18 02/12/23 14:18 Labs: Laboratory Results - last 24 hr 02/12/23 14:18: WBC 7.7, RBC 4.41 L, Hgb 14.4, Hct 44.4, MCV 100.7 H, MCH 32.7 H, MCHC 32.4, RDW Std Deviation 48.6 H, RDW Coeff of Danilo 13.0, Plt Count 160, MPV9.2, Immature Gran % (Auto) 0.600, Neut % (Auto) 66.8, Lymph % (Auto) 23.5, Terry% (Auto) 8.2, Eos % (Auto) 0.5, Baso % (Auto) 0.4, Absolute Neuts (auto) 5.2, Absolute Lymphs (auto) 1.81, Nucleated RBC % 0, Sodium 142, Potassium 3.6, Chloride 110 H, Carbon Dioxide 31.0, Anion Gap 1 L, BUN 28 H, Creatinine 1.06, Estim Creat Clear Calc 52.61, Est GFR (MDRD) Af Amer 85, Est GFR (MDRD) Non-Af 70, BUN/Creatinine Ratio 26.4 H, Glucose 145 H, Calcium 8.9 Radiology Impression Humerus X-Ray 02/12/23 14:20 IMPRESSION: Transverse fracture through the mid humeral diaphysis. This is suspicious for a pathological fracture. Electronically Signed: Jai Menjivar MD at 14:42 EDT , Assessment & Plan Assessment/Plan (1) Closed left humeral fracture: (2) Cellulitis of arm, left: PLAN: Plan The patient is an 87 y/o M w/ PMHx: BPH, HTN, Diabetes mellitus type II who presents to the [facility] ED on 02/12/23 with history of mechanical fall on 02/08/23 with unclear injury pattern but since then left arm discomfort and swelling as well as redness prompting initially evaluation at the urgent care earlier in theday reporting difficulty moving it since with increased redness and swelling over the last 48 hours with no fevers or chills with plain films at their site with specifically of forearm, hand and elbow film with no obvious findings per report as well as no acute finding per radiology follow-up read at that time however encouraged ED follow-up given appearance and ongoing discomfort. #1. Mechanical fall with left humeral transverse fracture through the mid humeral diaphysis complicated by concurrent Acute Cellulitis as well as noted radiology read noting questionable pathologic however patient did fall of note: Will admit to medical surgical floor, maintain on IV Unasyn, requested MRSA PCR,plan repeat CBC in AM, continue affected extremity elevation above heart when seated and in bed, sling, ice application, will continue posterior splint initiated per ED with nonweightbearing status, monitor erythema outline with VS checks, will request duplex US to assure no DVT concurrently, orthopedic surgeryconsulted and evaluation pending but given concern for possible possible pathologic may need further imaging but will defer to Orthopedic surgery discretion. #2. Initially reported unintentional weight loss: Lengthy discussion with patient and he notes attempted diet changes given elevated blood sugars in 2019 with weight loss following which was at that time intentional however the last several months he reports approximately 6 to 7 pound weight loss and this has been unintentional thus the drop in weight has not been as severe. He does report that he felt as though he was eating less well but cannot give exact specifics. We will continue to monitor I's and O's and awaiting surgery follow-up as noted above #1 given radiology comments about possible pathologic nature. #3. Diabetes mellitus type II, reportedly diet controlled: Not on regimen per current review but prior PCP visit with metformin usage, glucose upon presentation 145, 01/20/23 POC in office with PCP noted to be 6.2%, mildly increased from the prior 5.7%, will maintain on ADA diet, accu checks w/ ISS andencourage lifestyle/diet changes with ongoing close PCP follow-up. #4. Hypertension, not on regimen: Noted in history, BP mildly above goal upon presentation but given age not severe, will continue to monitor and add oral regimen if appropriate but in the interim we will maintain on IV as needed hydralazine. #5. BPH: Per home medication list not on regimen however if necessary urinary retention issues may add Flomax. #6. DVT prophylaxis: SCDs, hold chemoprophylaxis pending orthopedic surgery evaluation in case of OR needs. #7. CODE status: Patient does note have HCPOA or LW in place. Notes his who is present would be his decision maker if he was unable. Discussed CODE status at length including difference between FULL code, DNR-CCA and DNR-CC status. He notes several mates who decided to have no interventions and he is current unsure. Following discussions about the differences in these status, requested to be placed as full code status at this time but would think further on it and if he changes his mind will notify staff. Advanced Care Planning Face to Face Time: 16 minutes. Charges/Coding Visit Charges Inpatient E&M: 35266 Init Hosp L3 Procedures Hospitalists Procedures: 44285 Advncd Care Plan 30 Min 02/12/23 1554 <Electronically signed by Mariana Brown MD> Cosigner Signature (if applicable): CC: Dr. Mariana Brown MD; Dr. Dyan Kyle MD~ Signed [facility] Work Phone: 1(420) 720-319207-20-2022 Miscellaneous Notes* Telephone Encounter - Sania Gregory APRN.CNP - 12/10/2021 2:44 PM EDT Patient is overdue for annual exam Thank you Sania Gregory APRN.CNP * Telephone Encounter - Kimi Reyes - 12/10/2021 8:02 AM EDT Pharmacy electronically sent a request for the following prescription(s) Pending Prescriptions Disp Refills METFORMIN ER 500 MG TABLET,EXTENDED RELEASE 24 HR 90 tablet 3 Sig: TAKE 1 TABLET BY MOUTH EVERY DAY WITH BREAKFAST MICA: Yes Patient aware RX will be sent to pharmacy. No need to notify patient. Last Office Visit: 09/20/2020 with Joce Hernandez CNP Next Office Visit: NONE Please review. Kimi Reyes [facility]21 NoteHNO ID: [id number] Author: Sophia Pineda LPN Service: ? Author [...] instructions after review by PCP. [facility]ined[facility]ri[facility]21 NoteHNO ID: [id number] Author: Joce Hernandez APRN.GEOR[place]IE Service: ? Author Type: Nurse Practitioner Type: Progress Notes Filed: 09/23/2020 8:09 AM Note Text: CC: Patient presents with: Follow Up: DM follow up; rx refills HPI Jess James is a 85 year old male who presents today for DM follow up. DIABETES MELLITUS: Mr. James was last seen 1 year ago. Since [...] 88 Resp 16 Ht 179.1 cm (5' 10.5") Wt 84.4 kg (186 lb) BMI 26.31 [...] of <100 - BMP (BMP) (FOR REMOTE [facility] USE) - HEMOGLOBIN A1C (FOR REMOTE [facility] USE) 2. Elevated blood pressure reading without diagnosis of hypertension - ICD9: 796.2, ICD10: R03.0 - Encouraged dietary sodium restriction/DASH diet - Recheck in 2-4 weeks, sooner if needed. 3. Situation (more content not included)...[facility] Author Ted Lee [facility] February 14, 2023 11:10am Note Date/Time February 14, 2023 11:05am [facility] Medical Records Department [address] [place] [address] Instructions for Home/Discharge Instructions 02/14/23 1103 MR#: [id number] Acct: [id number] Name: JESS JAMES Rep #:[id number] : 1935 87 From: Ted Loya PCP: Dr. Dyan Kyle MD Status:A DM IN Discharge Instructions Diet Discharge Diet: No restrictions Activity Discharge Activity: Return to Normal Activity Weight Bearing Status: Weight bearing as tolerated Dressing / Incision Call your doctor if you observe: Fever of 101 or Higher, Coldness, Increased Pain, Numbness or Tingling, Change in Color, Inability to urinate, Inability to have a bowel movement, Shortness of breath, Dizziness, Fainting spells, Swellingin the ankles, Chest pain, Prolonged hiccupping, Increased palpitations (irregular heartbeat) and Calf discomfort Follow Up Care When: IN 2 WEEKS Test Results: Test results from this visit will be discussed in further detail at your follow- up appointment, if applicable. Discharge Plan Admission Admit Date/Time: 02/12/23 15:21 Primary Reason for Your Visit: Pathologic fracture of left humerus. Attending Provider: Ted Lee Primary Care Provider: Dyan Kyle Consulting Providers: Theodore Starks; Mariana Brown Instructions Additional Instructions / Restrictions: call [id number] [[facility] [address]] and bring prescription to obtain [place] clam shell brace to left humerus. than begin elbow ROM and shoulder pendulums as demonstrated by dr Starks 3x/day, in addition to finger and wrist ROM to avoid loss of function and maintain range ofmotion. No lifting pushing or pulling with left arm. Advised to follow-up orthopedic oncology, Dr. Nicholas Menendez, [facility] Ortho quality are Dr. Lopez, in [facility]. Discharge Orders/Prescriptions Prescriptions: New oxycodone 5 mg Tablet 2.5 - 5 mg PO Q4H PRN PRN (Reason: Pain Score 4-10) 7 Days Qty: 20 0RF acetaminophen 325 mg Tablet 1,000 mg PO Q8H Qty: 0 0RF Rx Instructions: Zidp-puf-wmqloab. 1000 mg every 8 hourly for 1 week and then as needed. sennosides-docusate sodium [Stool Softener-Stimulant Laxat] 8.6-50 mg Tablet 2 tab PO BID Qty: 0 0RF Rx Instructions: scheduled while taking pain meds. OTC amoxicillin-pot clavulanate 875-125 mg tablet 1 tab PO BID 5 Days Qty: 10 0RF Continued multivitamin [Daily Multi-Vitamin] Tablet 1 tab PO DAILY Referrals / Follow Up: Dyan Kyle MD [Primary Care Provider] - Within 1 Week Carolina Mcgee MD [Med Staff - Active Staff] - Within 2 Weeks (Work-up for possible osteosarcoma unclear primary or secondary.) Disposition Disposition (needs filled in before D/C Order can be placed): Home, Self Care 02/14/23 1110<Electronically signed by Ted Lee MD>Ted Lee MD CC: Dr. Mariana Brown MD; Dr. Dyan Kyle MD; Dr. Theodore Starks DO ~ Signed [facility] Work Phone: Discharge summary Author Radha Cope [facility] Note Date/Time December 24, 2024 1:2 8pm [facility] Medical Records Department [address] [place] [id number] Transfer to [facility] MR#: [id number] Acct: [id number] Name: JESS JAMES Rep #:[id number] : 1935 89 From: Radha Cope DO PCP: Dr. Dyan Kyle MD Status:A DM IN Certification of patient admission REQUIRED AT TIME OF ADMISSION. I CERTIFY THAT POST-HOSPITAL F SERVICES ARE REQUIRED TO BE GIVEN ON AN IN-PATIENT BASIS BECAUSE OF THE ABOVE NAMED PATIENT'S NEED FOR GROUP HOME CARE ON A CONTINUING BASIS FOR THE CONDITION(S) FOR WHICH HE/SHE WAS RECEIVINGIN-PATIENT HOSPITAL SERVICES PRIOR TO HIS/HER TRANSFER TO THE [facility]. 12/24/24 1322<Electronically signed by Radha Cope DO> Diet Diet Order/Speech Therapy: INPATIENT Hospital Diet / Speech Therapy Order(s) 12/20/24 10:33 Diet: Regular - No Added Salt Food consistency:: Regular Liquid Consistency:: Regular/Thin Type of Dietary Supplement:: Ensure Plus High Protein Diet Comments: 240mL ensure plus HP w/ breakfast tray Routine Orders/Code Status Suppository Frequency: Daily PRN Routine Lab Work: CBC (1 week) and BMP (1 week) Code Status: Full Code DC O2, CPAP, BIPAP needs Home O2 Discharge instructions: No Wound(s) rt elbow: Wound Type: Skin Tear left elbow: Wound Type: Skin Tear RIGHT HIP, LATERAL: Wound Type: Surgical Incision Suggestions for Active Care Change Position every (hours): 2 Hours to sit in a chair: 2 Times a day to sit in chair: 3 Therapies Weight Bearing: Weight bearing as tolerated Extremity Affected:: Left Lower Physical Therapy: Eval and Treat Occupational Therapy: Eval and Treat Problem/Diagnosis (1) Fracture of femoral neck, right, closed: Status: Acute Code(s): S72.001A - Fracture of unspecified part of neck of right femur, initial encounter for closed fracture Allergies/Procedures Done in Hospital Allergies shellfish derived Allergy (Mild, Verified 12/19/24 13:02) swelling in throat Procedures: EKG and - (Chest x-ray/hip and pelvic x-rays) Type of Care/Length of Stay Estimated LOS: Convalescent Care Less Than 30 days Type of Care Needed: Skilled Rehab Potential: Good Prognosis: Fair Additional Orders/Day of Discharge Day of Discharge: 12/24/24 Dietary and Speech Recommendations Dietitian Recommendations/Changes: Will continue Regular; no added salt diet. Will add 240mL Ensure Plus HP w/ breakfast tray. Fluid restriction as needed per physician given diuretics and history of CHF. Follow Up Care Please Follow Up With: Adi Lopez DO When: 2 weeks Discharge Plan Admission Admit Date/Time: 12/18/24 14:35 Attending Provider: Radha Cope Primary Care Provider: Dyan Kyle Consulting Providers: Bj Hamilton; Amado Jean Discharge Orders/Prescriptions Prescriptions: No Action furosemide 40 mg tablet 40 mg PO DAILY aspirin [Adult Aspirin Regimen] 81 mg tablet,delayed release (DR/EC) 81 mg PO QDAY Qty: 90 3RF atorvastatin 10 mg tablet 10 mg PO QDAY Qty: 90 3RF Xtandi 80 mg tablet 160 mg PO QHS Patient Comments: PT STATES TAKES AT 1530 Jardiance 10 mg tablet 10 mg PO DAILY 30 Days Qty: 30 11RF spironolactone 25 mg tablet 25 mg PO LUNCH 90 Days Qty: 90 3RF Entresto 49-51 mg tablet 1 tab PO BID Qty: 60 11RF carvedilol 25 mg tablet 25 mg PO BID 30 Days Qty: 180 3RF Referrals / Follow Up: Dyan Kyle MD [Primary Care Provider] - 12/27/24 11:00 am (1) Fracture of femoral neck, right, closed Qualifiers: Encounter type: initial encounter Qualified Code(s): S72.001A - Fracture of unspecified part of neck of right femur, initial encounter for closed fracture 12/24/24 1322 <Electronically signed by Radha Cope DO> Cosigner Signature (if applicable): CC: Dr. Amado Jean DO; Dr. Bj Hamilton MD; Dr. Dyan Kyle MD~ ADDENDUM by Dr. Radha Cope DO on 12/24/24 at 1327 Addendum Addendum to follow-up after discharge. Patient will follow-up with Dr. Hamilton not Dr. Lopez in 2 weeks 12/24/24 1327 <Electronically signed by Radha Cope DO> cc: Dr. Amado Jean DO; Dr. Bj Hamilton MD; Dr. Dyan Kyle MD~* Signed [facility] Work Phone: Discharge summary Author Radha Cope [facility] Note Date/Time December 24, 2024 1:3 6pm [facility] Medical Records Department [address] [place] [address] Discharge Summary 12/24/24 1322 MR#: [id number] Acct: [id number] Name: JESS JAMES Rep #:[id number] : 1935 89 From: Radha Cope DO PCP: Dr. Dyan Kyle MD Status:A DM IN Location: MS3 [id number] Providers Date of Admission: 12/18/24 Date of Discharge: 12/24/24 Primary Care Physician: Dr. Dyan Kyle MD Consultations 12/18/24 16:06 Consult: Orthopedics Routine Consulting Provider: Bj Hamilton Reason for Consult: right hip fracture EMERGENT Consult: No MD Notified: Yes Date Notified: 12/18/24 Time Notified: 14:40 Method of Notification: Text Reason For Visit: RIGHT HIP FRACTURE Diagnosis Discharge Diagnosis (1) Fracture of femoral neck, right, closed: Status: Acute Code(s): S72.001A - Fracture of unspecified part of neck of right femur, initial encounter for closed fracture Qualifiers: Encounter type: initial encounter Qualified Code(s): S72.001A - Fracture of unspecified part of neck of right femur, initial encounter for closed fracture Medications at Discharge Home Medications enzalutamide 80 mg tablet (Xtandi) 160 mg PO QHS chemo 03/24/23 empagliflozin 10 mg tablet (Jardiance) 10 mg PO DAILY 30 days #30 tabs 02/16/24 spironolactone 25 mg tablet 25 mg PO LUNCH 90 days #90 tabs 06/29/24 aspirin 81 mg tablet,delayed release (Adult Aspirin Regimen) 81 mg PO QDAY #90 tabs 09/13/24 atorvastatin 10 mg tablet 10 mg PO QDAY #90 tabs 09/13/24 furosemide 40 mg tablet 40 mg PO DAILY 10/25/24 sacubitril 49 mg-valsartan 51 mg tablet (Entresto) 1 tab PO BID #60 tabs 11/20/24 Held on 12/24/24. Instructions: Restart once systolic blood pressure is consistently greater than 130 carvedilol 25 mg tablet 25 mg PO BID 30 days #180 tabs 12/11/24 Held on 12/24/24. Instructions: Restart once systolic blood pressure is consistently greater than 130 acetaminophen 500 mg tablet 1,000 mg (2 x 500 mg) PO Q8 #0 tabs 12/24/24 apixaban 5 mg tablet (Eliquis) 2.5 mg (1/2 x 5 mg) PO BID #0 tabs 12/24/24 calcium carbonate 500 mg (2.5 x 200 mg calcium (500 mg)) PO TIDCM #0 tabs 12/24/24 sennosides 8.6 mg tablet (senna) 8.6 mg PO BID #1 TAB 12/24/24 Hospital Course Operations None Procedures EKG and - (Chest x-ray/hip and pelvic x-rays x 2) Summary of Care Provided Minutes Spent on Discharge: 38 Hospital Course: Mr. James is an 89-year-old white male with a history of metastatic prostate cancer to bone who follows with oncology and reported the emergency department was from the hospital on 12/10/2024 status post mechanical fall and resultant right hip pain. Patient had a pathologic fracture of his left humerus in 2022 and was at time found to have metastatic prostate cancer to bone. He has been on androgen deprivation therapy since that point in time as well as zoledronic acid and had responded very well. He was found to have a new acute onset heart failure with an EF of 10 to 15% in October 2023 with improved echocardiogram in February with an EF of 35%. Patient suffered a fall. They were at Dr. Diaz's office and his actually fell and knocked him to the ground. Following the fall EMS to the emergency department for the evaluation. Imaging revealed a fracture of the right femoral neck with a 0.9 cm impaction. The case was discussed with orthopedic surgery by the emergency department physician and jory for surgical intervention. He was admitted to medical surgical floor. Vital signs on presentation showed temperature of 97.7, heart rate was 80, respiratory 16, blood pressure was 167/78 and pulse ox was 97% on room air. CBCshowed mild stable thrombocytopenia. Chemistry panel was overall unremarkable. Chest x-ray was unremarkable for any acute findings.'s EKG was unremarkable for any acute changes. He was admitted to the medical floor and orthopedic surgery was consulted. He was taken to the OR on 12/19/2024 at which time a right cemented hip hemiarthroplasty was performed. Patient overall had a fairly uneventful postoperative course. He was noted to have some hypotension intraoperatively and ended up with some mild CODY following which had resolved bythe time of discharge. Blood pressures were starting to increase at the time ofdischarge so we did restart his Lasix and Aldactone but his carvedilol and Entresto were remained on hold and were instructed to remain on hold until his systolic pressures were consistently greater than 130 at that time they should be restarted. He was not requiring any narcotic pain medication at the time of discharge and was doing well with scheduled Tylenol. He will continue this at discharge. He is to follow posterior hip precautions per orthopedic surgery andbe weightbearing as tolerated. He is on Eliquis 2.5 mg p.o. twice daily at least for a month and until instructed otherwise by orthopedic surgery for DVT prophylaxis. He was evaluated by physical and Occupational Therapy and they felt he would benefit from ongoing rehab after discharge. He was accepted at [facility] and pre-CERT was obtained by his insurance company on the evening of 12/23/2024. We were notified by the nursing facility midday on 12/24/2024 that pre-CERT was obtained and he was discharged to [facility] in stable condition at that time. He has to follow-up with Dr. Hamilton in 2 weeks. Discharge diagnoses: Right femoral neck fracture-suspected pathological with history of metastatic prostate cancer Postop day 5 right cemented hip hemiarthroplasty Mild anemia Thrombocytopenia Chronic HFrEF Essential hypertension CODY-resolved Hyperlipidemia Chronic left bundle branch block Metastatic prostate cancer BPH DM-2 Physical Exam Narrative Patient states he had a bowel movement this morning. He states it was not largebut he had several small "turds" Const alert, oriented x3, no apparent distress, average body habitus, no limitations and well nourished Constitutional Narrative: Elderly, white male, sitting up in a chair at the bedside, appears comfortable, nontoxic General Appearance: cooperative, comfortable, well kempt and well developed Exam Limitations: no limitations HEENT normocephalic and head/scalp atraumatic; Negative for hearing grossly normal bilaterally HEENT Narrative: Marked hearing loss, Mallampati 2-3, no thrush Eyes conjunctivae normal Eyes Narrative: No scleral icterus Neck supple Neck Narrative: Trachea midline Resp normal respiratory effort, normal air movement, no retractions, no use of accessory muscles and clear to auscultation bilaterally Auscultation: Negative for rales, rhonchi or wheezes Cardio regular rate, regular rhythm, S1 normal heart sound, S2 normal heart sound, no murmurs, no rub, no gallops and no clicks GI normal to inspection, nondistended, normoactive bowel sounds, soft to palpation and non-tender GI Narrative: Excellent bowel sounds Extremity Extremity Narrative: Trace lower extremity edema, no cyanosis or clubbing, pedal and radial pulses are 2+ bilaterally, right lower extremity within normal limits and postop dressing in place and is clean dry and intact Skin Skin Narrative: Postoperative dressing right hip in place with no signs of ecchymosis, dressing is clean dry and intact Neuro oriented x3, moves all extremities and no focal motor deficits Neuro Narrative: Generalized weakness, proximal greater than distal accentuated in right lower extremity due to injury Speech: speech normal Psych mental status grossly normal and affect normal Psych Narrative: Very pleasant, eye contact is good and patient interacts appropriately Weight / BMI Weight Weight: 81.238 kg Body Mass Index (BMI) 25.7 ABG / Lab / Microbiology Data 12/24/24 03:34 12/24/24 03:34 Laboratory: Laboratory Results - last 24 hr 12/24/24 03:34: WBC 5.4, RBC 2.71 L, Hgb 9.4 L, Hct 28.0 L, MCV 103.3 H, MCH 34.7 H, MCHC 33.6, RDW Std Deviation 50.4 H, RDW Coeff of Danilo 13.2, Plt Count 187, MPV 9.6, Sodium 144, Potassium 3.9, Chloride 113 H, Carbon Dioxide 21.8, Anion Gap 10, BUN 37 H, Creatinine 0.97, Estim Creat Clear Calc 55.40, Est GFR (MDRD) Non-Af 76, BUN/Creatinine Ratio 38.0 H, Glucose 98, Calcium 8.1 D/C Instructions DC O2, CPAP, BIPAP Needs Home O2 Discharge instructions: No Please Follow Up With: Adi Lopez, DO Meaningful Use Info Meaningful Use Meaningful Use Diagnoses (Choose all that apply): None applicable Discharge Plan Admission Admit Date/Time: 12/18/24 14:35 Primary Reason for Your Visit: Right hip pain after fall Attending Provider: Radha Cope Primary Care Provider: Dyan Kyle Consulting Providers: Bj Hamilton; Amado Jean Instructions Additional Instructions / Restrictions: 1. Patient should have a repeat BMP and CBC in 1 week 2. Weightbearing as tolerated right lower extremity 3. DVT prophylaxis with Eliquis until instructed to stop by orthopedic surgery 4. Posterior hip precautions Discharge Orders/Prescriptions Prescriptions: New sennosides [senna] 8.6 mg Tablet 8.6 mg PO BID Qty: 1 0RF acetaminophen 500 mg Tablet 1,000 mg PO Q8 Qty: 0 0RF calcium carbonate 200 mg calcium (500 mg) Tablet,Chewable 500 mg PO TIDCM Qty: 0 0RF Eliquis 5 mg Tablet 2.5 mg PO BID Qty: 0 0RF Continued furosemide 40 mg tablet 40 mg PO DAILY aspirin [Adult Aspirin Regimen] 81 mg tablet,delayed release (DR/EC) 81 mg PO QDAY Qty: 90 3RF atorvastatin 10 mg tablet 10 mg PO QDAY Qty: 90 3RF Xtandi 80 mg tablet 160 mg PO QHS Patient Comments: PT STATES TAKES AT 1530 Jardiance 10 mg tablet 10 mg PO DAILY 30 Days Qty: 30 11RF spironolactone 25 mg tablet 25 mg PO LUNCH 90 Days Qty: 90 3RF Held Entresto 49-51 mg tablet 1 tab PO BID Qty: 60 11RF Hold Instructions: Restart once systolic blood pressure is consistently greater than 130 carvedilol 25 mg tablet 25 mg PO BID 30 Days Qty: 180 3RF Hold Instructions: Restart once systolic blood pressure is consistently greater than 130 Referrals / Follow Up: Bj Hamilton MD [Med Staff - Active Staff] - Within 2 Weeks Dyan Kyle MD [Primary Care Provider] - 12/27/24 11:00 am Disposition Disposition (needs filled in before D/C Order can be placed): [facility] Charges/Coding Visit Charges Inpatient E&M: 10576 SNF Disch >30 Min 12/24/24 1336 <Electronically signed by Radha Cope DO> Cosigner Signature (if applicable): CC: Dr. Bj Hamilton MD; Dr. Dyan Kyle MD; Dr. Radha Cope DO~ Signed [facility] Work Phone: Evaluation note* Diagnosis Onset Date Resolution Status Change in skin mole acute Elevated blood pressure reading acute Type 2 diabetes mellitus chr onic [facility] Work Phone: Evaluation note* Diagnosis Controlled type 2 diabetes mellitus with stage 3 chronic kidney disease, without long-term current use of insulin (HCC) [facility] Diagnosis Onset Date Resolution Status Change in skin mole acute BPH (benign prostatic hyperplasia) chronic Hypertension chronic Type 2 diabetes mellitus chr onic Weight loss, non-intentional chronic Cellulitis of left arm acute Injury of left lower arm acu te Type 2 diabetes mellitus chr onic Cellulitis of arm, left acut e Closed left humeral fracture acute Fall acute History of diabetes mellitus acute [facility] Work Phone: Evaluation note* Diagnosis Onset Date Resolution Status Change in skin mole acute BPH (benign prostatic hyperplasia) chronic Hypertension chronic Type 2 diabetes mellitus chr onic Weight loss, non-intentional chronic Cellulitis of left arm acute Injury of left lower arm acu te Type 2 diabetes mellitus chr onic Cellulitis of arm, left acut e Closed left humeral fracture acute Fall acute History of diabetes mellitus acute [id number] acute Pathologic fracture of humerus acute [facility] Work Phone: Evaluation note* Diagnosis Onset Date Resolution Status Change in skin mole acute BPH (benign prostatic hyperplasia) chronic Hypertension chronic Type 2 diabetes mellitus chr onic Weight loss, non-intentional chronic Cellulitis of left arm acute Injury of left lower arm acu te Type 2 diabetes mellitus chr onic Cellulitis of arm, left acut e Closed left humeral fracture acute Fall acute History of diabetes mellitus acute Abnormal CT of the abdomen a cute Bone cancer acute Elevated PSA acute Prostate enlargement acute [facility] Work Phone: Evaluation note* Diagnosis Onset Date Resolution Status Change in skin mole acute BPH (benign prostatic hyperplasia) chronic Hypertension chronic Type 2 diabetes mellitus chr onic Weight loss, non-intentional chronic Cellulitis of left arm acute Injury of left lower arm acu te Type 2 diabetes mellitus chr onic Cellulitis of arm, left acut e Closed left humeral fracture acute Fall acute History of diabetes mellitus acute Pathologic fracture of humerus acute Abnormal CT of the abdomen a cute Bone cancer acute Elevated PSA acute Pathologic fracture of humerus acute Metastasis to bone acute Pathologic fracture of humerus acute Prostate cancer acute [facility] Work Phone: Evaluation note* Diagnosis 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, initial encounter [facility] Diagnosis Onset Date Resolution Status Change in skin mole acute BPH (benign prostatic hyperplasia) chronic Hypertension chronic Type 2 diabetes mellitus chr onic Weight loss, non-intentional chronic Cellulitis of left arm acute Injury of left lower arm acu te Type 2 diabetes mellitus chr onic Cellulitis of arm, left acut e Closed left humeral fracture acute Fall acute History of diabetes mellitus acute Pathologic fracture of humerus chronic Abnormal CT of the abdomen a cute Bone cancer acute Elevated PSA acute Pathologic fracture of humerus chronic 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 Pathologic fracture of humerus chronic Prostate cancer chronic Arrhythmia acute Hypertension chronic Pathologic fracture of humerus chronic Prostate cancer chronic Type 2 diabetes mellitus chr onic 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 Pathologic fracture of humerus chronic Prostate cancer chronic [facility] Work Phone: Evaluation note* Diagnosis 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, initial encounter [facility] Diagnosis Onset Date Resolution Status Change in skin mole acute BPH (benign prostatic hyperplasia) chronic Hypertension chronic Type 2 diabetes mellitus chr onic Weight loss, non-intentional chronic Cellulitis of left arm acute Injury of left lower arm acu te Type 2 diabetes mellitus chr onic Cellulitis of arm, left acut e Closed left humeral fracture acute Fall acute History of diabetes mellitus acute Pathologic fracture of humerus chronic Abnormal CT of the abdomen a cute Bone cancer acute Elevated PSA acute Pathologic fracture of humerus chronic 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 Pathologic fracture of humerus chronic Prostate cancer chronic Arrhythmia acute Hypertension chronic Pathologic fracture of humerus chronic Prostate cancer chronic Type 2 diabetes mellitus chr onic 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 Pathologic fracture of humerus chronic Prostate cancer chronic 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 Pathologic fracture of humerus chronic Prostate cancer chronic [facility] Work Phone: Evaluation note* Diagnosis Onset Date Resolution Status Arrhythmia acute Hypertension chronic Pathologic fracture of humerus chronic Prostate cancer chronic Type 2 diabetes mellitus chr onic 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 Pathologic fracture of humerus chronic Prostate cancer chronic 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 Pathologic fracture of humerus chronic Prostate cancer chronic 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 Pathologic fracture of humerus chronic Prostate cancer chronic [facility] Work Phone: Evaluation note* Diagnosis Onset Date Resolution Status Arrhythmia acute Hypertension chronic Pathologic fracture of humerus chronic Prostate cancer chronic Type 2 diabetes mellitus chr onic 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 Pathologic fracture of humerus chronic Prostate cancer chronic 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 Pathologic fracture of humerus chronic Prostate cancer chronic 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 Pathologic fracture of humerus chronic Prostate cancer chronic Carotid artery bruit acute Hypertension chronic Prostate cancer chronic Type 2 diabetes mellitus chr onic 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 Dyan Kyle MD Status:A DM IN [place] [facility] [place] HPI - General General Date of Admission: 02/12/23 Date of Service: 02/12/23 Chief Complaint: LUE pain, redness, swelling s/p fall. HPI Narrative The patient is an 87 y/o M w/ PMHx: BPH, HTN, Diabetes mellitus type II who presents to the [facility] ED on 02/12/23 with history of mechanical fall on 02/08/23 with unclear injury pattern but since then left arm discomfort and swelling as well as redness prompting initially evaluation at the urgent care earlier in theday reporting difficulty moving it since with increased redness and swelling over the last 48 hours with no fevers or chills with plain films at their site with specifically of forearm, hand and elbow film with no obvious findings per report as well as no acute finding per radiology follow-up read at that time however encouraged ED follow-up given appearance and ongoing discomfort. In theED upon arrival patient with significant swelling from the left elbow down to the left hand with erythema from the elbow region as well as in the proximal andmid forearm consistent with cellulitic findings with appropriate sensation and physical education department chair strength with dressing and splint taken down for duplex while in the room. Discussed weight loss as patient had noted initially unintentional weight loss however from discussion starting in 2019 when he had an elevated hemoglobin A1c he did alter his diet notably and lost weight with most recently potentially over the last several months a 6 to 7 pound weight loss but he does report that this amount of weight was not intentional. With dressing and splint takedown inthe room patient reporting pain increased to the left upper extremity with muscle fasciculations with pain dull/aching/throbbing 8 out of 10 in severity work-up in the ED included vital signs with T97.8, heart rate 74, BP 141/89, respiratory rate 18, 97% on room air, CBC with WBC 7.7, hemoglobin 14.4, platelet 160 without marked shift, BMP with chloride 110, BUN/creatinine 28/1.06, glucose 145 otherwise no marked findings, plain film of the left humerus with a transverse fracture through the mid humeral diaphysis suspicious for pathological fracture. Given findings on plain film of the humerus patient was placed in a long-arm posterior splint to immobilize the midshaft humeral fracture. In the ED patient ministered Unasyn, morphine 4 mg IV x1, Zofran 4 mgIV x1. ED physician discussed case with Dr. Starks Orthopedic surgery who notedintention to see patient in consult. [facility] Medical History (Updated 02/12/23 @ 15:[address] Mariana Brown MD) Bone fracture BPH (benign prostatic hyperplasia) Change in skin mole Elevated PSA Flu vaccine need Hypertension Type 2 diabetes mellitus Weight loss, non-intentional Home Medications multivitamin (Daily Multi-Vitamin tablet) 1 tab PO DAILY 02/12/23 [History Last Taken 02/12/23] Allergy/AdvReac Type Severity Reaction Status Date / Time shellfish derived Allergy Mild swelling Verified 02/12/23 12:54 in throat Family History Father Melanoma Mother Ovarian cancer Surgical History (Updated 02/12/23 @ 15:[address] Mariana Brown MD) History of dental surgery Social History (Updated 02/12/23 @ 15:[address] Maraina Brown MD) household members: spouse Smoking Status: Never smoker alcohol intake: never substance use type: does not use what type of physical activity do you participate in: none ROS ROS Narrative Admission Review of Systems: CONSTITUTIONAL: No weight loss, fever, chills, + weakness or fatigue. HEENT: Eyes: No visual loss, blurred vision, double vision or yellow sclerae. Ears, Nose, Throat: No hearing loss, sneezing, congestion, runny nose or sore throat. SKIN: + Left upper extremity erythema, edema, pain. CARDIOVASCULAR: + Left upper extremity pain status post fall otherwise no peripheral l edema. No chest pain, chest pressure or chest discomfort, palpitations, orthopnea, syncopal events. RESPIRATORY: No shortness of breath, cough or sputum, wheezing, hemoptysis. GASTROINTESTINAL: No anorexia, nausea, vomiting or diarrhea, abdominal pain, melena, BRBPR. GENITOURINARY: No dysuria, frequency, urgency or retention. NEUROLOGICAL: No headache, dizziness, syncope, paralysis, ataxia, numbness or tingling in the extremities, focal weakness, change in bowel or bladder control,seizure. MUSCULOSKELETAL: + muscle, back pain, joint pain or stiffness. HEMATOLOGIC: + Easy bleeding or bruising. LYMPHATICS: No enlarged nodes. No history of splenectomy. PSYCHIATRIC: No history of depression or anxiety. ENDOCRINOLOGIC: No reports of sweating, cold or heat intolerance. No polyuria orpolydipsia. ALLERGIES: + history of significant shellfish allergy. Vital Signs Vital Signs Vital Signs: 02/12/23 12:54 02/12/23 14:32 Temperature 97.8 F Temperature Source Temporal Pulse Rate 74 77 Respiratory Rate 18 20 H Blood Pressure 141/89 H 150/67 H Blood Pressure Mean 106 94 Pulse Ox 97 98 Oxygen Delivery Method Room Air Room Air Weight Weight: 178 lb Body Mass Index (BMI) 25.5 Physical Exam Narrative Physical Examination: General: Awake, alert, oriented x 3 and cooperative, seated upright in the ED bed in no apparent distress but with takedown of the splint for duplex he does report 10 out of 10 focal pain to the left upper extremity with some shaking andmuscle fasciculation associated. Skin: Normal color, normal turgor, no icterus, no cyanosis except significant swelling from the left elbow down to the left hand with erythema from the elbow region as well as in the proximal and mid forearm as well as occasional staged ecchymoses and abrasion to the extremities. HEENT: AT/NC, EOMI, PERRLA, mildly dry MM, no carotid bruits or JVD noted. Lungs: CTA bilaterally, moderate effort, mild decrease BL bases, no rales, ronchi or wheezing. Heart: Regular rate and rhythm; no gallop, rub audible. Abdomen: Soft, NTTP, ND, hyperactive BS, no HSM. Extremities: No cyanosis, no clubbing, see skin as noted above. Neurological: Patient awake, alert, oriented as noted, cognitive function intact; pupils equally reactive to light and accommodation, cranial nerves grossly normal, moving all 4 extremities except extremely limited left upper extremity movement given fracture and pain elicited as well as initially splint in place, strength accordingly moderately globally decreased. Psychiatric: Affect appears uncomfortable, fatigued, no acute evidence of depressive or anxiety feelings. Results Lab / Micro Data 02/12/23 14:18 02/12/23 14:18 Labs: Laboratory Results - last 24 hr 02/12/23 14:18: WBC 7.7, RBC 4.41 L, Hgb 14.4, Hct 44.4, MCV 100.7 H, MCH 32.7 H, MCHC 32.4, RDW Std Deviation 48.6 H, RDW Coeff of Danilo 13.0, Plt Count 160, MPV9.2, Immature Gran % (Auto) 0.600, Neut % (Auto) 66.8, Lymph % (Auto) 23.5, Terry% (Auto) 8.2, Eos % (Auto) 0.5, Baso % (Auto) 0.4, Absolute Neuts (auto) 5.2, Absolute Lymphs (auto) 1.81, Nucleated RBC % 0, Sodium 142, Potassium 3.6, Chloride 110 H, Carbon Dioxide 31.0, Anion Gap 1 L, BUN 28 H, Creatinine 1.06, Estim Creat Clear Calc 52.61, Est GFR (MDRD) Af Amer 85, Est GFR (MDRD) Non-Af 70, BUN/Creatinine Ratio 26.4 H, Glucose 145 H, Calcium 8.9 Radiology Impression Humerus X-Ray 02/12/23 14:20 IMPRESSION: Transverse fracture through the mid humeral diaphysis. This is suspicious for a pathological fracture. Electronically Signed: Jai Menjivar MD at 14:42 EDT , Assessment & Plan Assessment/Plan (1) Closed left humeral fracture: (2) Cellulitis of arm, left: PLAN: Plan The patient is an 87 y/o M w/ PMHx: BPH, HTN, Diabetes mellitus type II who presents to the [facility] ED on 02/12/23 with history of mechanical fall on 02/08/23 with unclear injury pattern but since then left arm discomfort and swelling as well as redness prompting initially evaluation at the urgent care earlier in theday reporting difficulty moving it since with increased redness and swelling over the last 48 hours with no fevers or chills with plain films at their site with specifically of forearm, hand and elbow film with no obvious findings per report as well as no acute finding per radiology follow-up read at that time however encouraged ED follow-up given appearance and ongoing discomfort. #1. Mechanical fall with left humeral transverse fracture through the mid humeral diaphysis complicated by concurrent Acute Cellulitis as well as noted radiology read noting questionable pathologic however patient did fall of note: Will admit to medical surgical floor, maintain on IV Unasyn, requested MRSA PCR,plan repeat CBC in AM, continue affected extremity elevation above heart when seated and in bed, sling, ice application, will continue posterior splint initiated per ED with nonweightbearing status, monitor erythema outline with VS checks, will request duplex US to assure no DVT concurrently, orthopedic surgeryconsulted and evaluation pending but given concern for possible possible pathologic may need further imaging but will defer to Orthopedic surgery discretion. #2. Initially reported unintentional weight loss: Lengthy discussion with patient and he notes attempted diet changes given elevated blood sugars in 2019 with weight loss following which was at that time intentional however the last several months he reports approximately 6 to 7 pound weight loss and this has been unintentional thus the drop in weight has not been as severe. He does report that he felt as though he was eating less well but cannot give exact specifics. We will continue to monitor I's and O's and awaiting surgery follow-up as noted above #1 given radiology comments about possible pathologic nature. #3. Diabetes mellitus type II, reportedly diet controlled: Not on regimen per current review but prior PCP visit with metformin usage, glucose upon presentation 145, 01/20/23 POC in office with PCP noted to be 6.2%, mildly increased from the prior 5.7%, will maintain on ADA diet, accu checks w/ ISS andencourage lifestyle/diet changes with ongoing close PCP follow-up. #4. Hypertension, not on regimen: Noted in history, BP mildly above goal upon presentation but given age not severe, will continue to monitor and add oral regimen if appropriate but in the interim we will maintain on IV as needed hydralazine. #5. BPH: Per home medication list not on regimen however if necessary urinary retention issues may add Flomax. #6. DVT prophylaxis: SCDs, hold chemoprophylaxis pending orthopedic surgery evaluation in case of OR needs. #7. CODE status: Patient does note have HCPOA or LW in place. Notes his who is present would be his decision maker if he was unable. Discussed CODE status at length including difference between FULL code, DNR-CCA and DNR-CC status. He notes several mates who decided to have no interventions and he is current unsure. Following discussions about the differences in these status, requested to be placed as full code status at this time but would think further on it and if he changes his mind will notify staff. Advanced Care Planning Face to Face Time: 16 minutes. Charges/Coding Visit Charges Inpatient E&M: 08443 Init Hosp L3 Procedures Hospitalists Procedures: 74146 Advncd Care Plan 30 Min 02/12/23 1554 <Electronically signed by Mariana Brown MD> Cosigner Signature (if applicable): CC: Dr. Mariana Brown MD; Dr. Dyan Kyle MD~ Signed [facility] Work Phone: Hospital Discharge instructionsAmbulatory Orders* Oncology Location: None Selected [facility] Work Phone: Progress note Author Theodore [facility] February 14, 2023 10:40am Note Date/Time February 14, 2023 10:35am [facility] Medical Records Department [address] [place] [address] Progress Note - Orthopedic 02/14/23 1030 MR#: [id number] Acct: [id number] Name: JESS JAMES Rep #:[id number] : 1935 87 From: Theodore Starks DO PCP: Dr. Dyan Kyle MD Status:A DM IN Location: MS3 SD745-8 Subjective Subjective Seen and examined doing okay pain controlled. Family present and son. Objective Data Objective Data Vital Signs: Vital Signs Temp Pulse Resp BP Pulse Ox O2 Del Method O2 Flow Rate 97.7 F L 79 16 140/77 H 97 Room Air 2 02/14/23 07:40 02/14/23 07:40 02/14/23 07:40 02/14/23 07:40 02/14/23 07:58 02/14/23 08:25 02/14/23 05:41 Oxygen Flow Rate (L/min) 2 Oxygen Delivery Method Room Air Weight: 179 lb 7.3 oz Body Mass Index (BMI) 25.7 Intake & Output: Intake and Output for Last 24 Hours 02/12/23 02/13/23 02/14/23 23:59 23:59 23:59 Intake Total 837 / 837 923 / 923 224 / 224 Output Total 200 / 200 Balance 837 / 837 723 / 723 224 / 224 Lab / Micro Data 02/13/23 05:29 02/13/23 05:29 Labs: Laboratory Results - last 24 hr 02/13/23 07:12: POC Glucose 149 H Radiography Diagnostic Testing: Radiology Impression Upper Extremity MRI 02/13/23 08:21 IMPRESSION: 6 cm marrow replacing lesion the mid shaft of the humerus with nondisplaced pathologic fracture at the inferior margin and soft tissue extension worrisome for primary osteosarcoma or metastatic disease. Correlation with bone scan would be useful. Electronically Signed: Mahin Meng MD at 16:09 EDT , Physical Exam Const alert and oriented x3 General Appearance: cooperative Extremity Extremity Narrative: Compartments soft arm and forearm and hand he is neurovascular intact radial median ulnar AIN PIN axillary , musculoocutaneous nerves. palpable radial pulse. Wrist capillary refill he is in a posterior slab splint and sling. 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 No known primary. Patient's splint was changed today to a coaptation splint that extended more proximal than the previous posterior slab. This will provide better stability of the fracture site in addition I provided him with a prescription for a [place] clamshell brace to be obtained from [employer]. Instructed to call prior to arriving. Patient will need follow-up with oncology for further work-up and follow-up withorthopedic oncology for definitive diagnosis and treatment of pathologic humerusfracture. All questions were answered the best my ability. 02/14/23 1035 <Electronically signed by Theodore Starks DO> Cosigner Signature (if applicable): CC: ~ Signed ADDENDUM by Dr. Theodore Starks DO on 02/14/23 at 1040 Addendum Once brace is obtained from [employer] begin elbow range of motion and shoulder pendulum exercises as were demonstrated no lifting pushing or pulling left arm. I provided narcotic prescription left on the chart. 02/14/23 1040<Electronically signed by Theodore Starks DO> Cosigner Signature (if applicable): cc: ~* Signed [facility] Work Phone: Reason for referral (narrative)No reason for referral information availableWMercy [facility] Work Phone: Summary Purpose Family History No Family History Records Found Relationship Condition Age at Onset Recorded Date/T kae father Malignant melanoma Unknown mother Malignant neoplasm of ovary Unknown Advance Directives No Advanced Directives Records Found Advance Directive Response Recorded Date/ Time Living Will No February 12, 2023 2:32pm Power of Pharmacy Technologist No January 2:32pm Advance Directive Response Recorded Date/ Time Living Will No February 12, 2023 4:45pm Power of Pharmacy Technologist No January 4:45pm Advance Directive Response Recorded Date/ Time Living Will No February 12, 2023 3:45pm Power of Pharmacy Technologist No January 3:45pm Advance Directive Response Recorded Date/ Time Living Will No December 06, 2023 1:29pm Do you have a Healthcare Power of Pharmacy Technologist? No December 06, 2023 1:29pm Living Will No February 12, 2023 4:45pm Do you have a Healthcare Power of Pharmacy Technologist? No February 12, 2023 4:45pm Living Will No June 03 6:39pm Do you have a Healthcare Power of Pharmacy Technologist? No June 03, 2024 6:39pm Advance Directive Response Recorded Date/ Time Living Will No February 12, 2023 4:45pm Do you have a Healthcare Power of Pharmacy Technologist? No February 12, 2023 4:45pm Advance Directive Response Recorded Date/ Time Living Will No February 12, 2023 4:45pm Do you have a Healthcare Power of Pharmacy Technologist? No February 12, 2023 4:45pm Do you have a Healthcare Power of Pharmacy Technologist? No December 18, 2024 11:55am Advance Directive Response Recorded Date/ Time Living Will No February 12, 2023 4:45pm Do you have a Healthcare Power of Pharmacy Technologist? No February 12, 2023 4:45pm Do you have a Healthcare Power of Pharmacy Technologist? 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 CARE - NPP SENT Reason for Visit Change in skin mole Elevated blood pressure reading Type 2 diabetes mellitus Chief Complaint 6 M FU LEFT ARM INJURY Left arm inj l arm injury left arm injury FALL L HUMERUS FX,CELLULITIS FALL L HUMERUS FX,CELLULITIS Reason for Visit Change in skin mole BPH (benign prostatic hyperplasia) Hypertension Type 2 diabetes mellitus Weight loss, non-intentional Cellulitis of left arm Injury of left lower arm Type 2 diabetes mellitus Cellulitis of arm, left Closed left humeral fracture Fall History of diabetes mellitus Chief Complaint 6 M FU LEFT ARM INJURY Left arm inj l arm injury left arm injury FALL L HUMERAL FX,CELLULITIS FALL L HUMERUS FX,CELLULITIS FALL L HUMERAL FX,CELLULITIS FALL L HUMERAL FX,CELLULITIS FALL L HUMERAL FX,CELLULITIS Reason for Visit Change in skin mole BPH (benign prostatic hyperplasia) Hypertension Type 2 diabetes mellitus Weight loss, non-intentional Cellulitis of left arm Injury of left lower arm Type 2 diabetes mellitus Cellulitis of arm, left Closed left humeral fracture Fall History of diabetes mellitus [id number] Pathologic fracture of humerus Chief Complaint 6 M FU LEFT ARM INJURY Left arm inj l arm injury left arm injury FALL L HUMERAL FX,CELLULITIS FALL L HUMERUS FX,CELLULITIS FALL L HUMERAL FX,CELLULITIS FALL L HUMERAL FX,CELLULITIS FALL L HUMERAL FX,CELLULITIS FALL L HUMERAL FX,CELLULITIS Reason for Visit Change in skin mole BPH (benign prostatic hyperplasia) Hypertension Type 2 diabetes mellitus Weight loss, non-intentional Cellulitis of left arm Injury of left lower arm Type 2 diabetes mellitus Cellulitis of arm, left Closed left humeral fracture Fall History of diabetes mellitus [id number] Pathologic fracture of humerus Chief Complaint 6 M FU LEFT ARM INJURY Left arm inj l arm injury left arm injury FALL L HUMERAL FX,CELLULITIS FALL L HUMERUS FX,CELLULITIS FALL L HUMERAL FX,CELLULITIS FALL L HUMERAL FX,CELLULITIS FALL L HUMERAL FX,CELLULITIS FALL L HUMERAL FX,CELLULITIS ABN WEIGHT LOSS BROKEN ARM Reason for Visit Change in skin mole BPH (benign prostatic hyperplasia) Hypertension Type 2 diabetes mellitus Weight loss, non-intentional Cellulitis of left arm Injury of left lower arm Type 2 diabetes mellitus Cellulitis of arm, left Closed left humeral fracture Fall History of diabetes mellitus Abnormal CT of the abdomen Bone cancer Elevated PSA Prostate enlargement Chief Complaint 6 M FU LEFT ARM INJURY Left arm inj l arm injury left arm injury FALL L HUMERAL FX,CELLULITIS FALL L HUMERUS FX,CELLULITIS FALL L HUMERAL FX,CELLULITIS FALL L HUMERAL FX,CELLULITIS FALL L HUMERAL FX,CELLULITIS FALL L HUMERAL FX,CELLULITIS ABN WEIGHT LOSS BROKEN ARM NEW-BONE CA LYMPHEDMA. DR BLESSING RESTREPO RX Malignant neoplasm of bone and articular cartilage Reason for Visit Change in skin mole BPH (benign prostatic hyperplasia) Hypertension Type 2 diabetes mellitus Weight loss, non-intentional Cellulitis of left arm Injury of left lower arm Type 2 diabetes mellitus Cellulitis of arm, left Closed left humeral fracture Fall History of diabetes mellitus Pathologic fracture of humerus Abnormal CT of the abdomen Bone cancer Elevated PSA Pathologic fracture of humerus Metastasis to bone Pathologic fracture of humerus Prostate cancer Chief Complaint 6 M FU LEFT ARM INJURY Left arm inj l arm injury left arm injury FALL L HUMERAL FX,CELLULITIS FALL L HUMERUS FX,CELLULITIS FALL L HUMERAL FX,CELLULITIS FALL L HUMERAL FX,CELLULITIS FALL L HUMERAL FX,CELLULITIS FALL L HUMERAL FX,CELLULITIS ABN WEIGHT LOSS BROKEN ARM NEW-BONE CA LYMPHEDMA. DR BLESSING RESTREPO RX Malignant neoplasm of bone and articular cartilage Continuation of care fu F/U AFTER STARTING MEDS - LABS - [facility] F/U AFTER STARTING MEDS - LABS - [facility] Reason for Visit Change in skin mole BPH (benign prostatic hyperplasia) Hypertension Type 2 diabetes mellitus Weight loss, non-intentional Cellulitis of left arm Injury of left lower arm Type 2 diabetes mellitus Cellulitis of arm, left Closed left humeral fracture Fall History of diabetes mellitus Pathologic fracture of humerus Abnormal CT of the abdomen Bone cancer Elevated PSA Pathologic fracture of humerus Metastasis to bone Pathologic fracture of humerus Prostate cancer Arrhythmia Hypertension Pathologic fracture of humerus Prostate cancer Type 2 diabetes mellitus Venous insufficiency of both lower extremities Metastasis to bone Pathologic fracture of humerus Prostate cancer Chief Complaint 6 M FU LEFT ARM INJURY Left arm inj l arm injury left arm injury FALL L HUMERAL FX,CELLULITIS FALL L HUMERUS FX,CELLULITIS FALL L HUMERAL FX,CELLULITIS FALL L HUMERAL FX,CELLULITIS FALL L HUMERAL FX,CELLULITIS FALL L HUMERAL FX,CELLULITIS ABN WEIGHT LOSS BROKEN ARM NEW-BONE CA LYMPHEDMA. DR BLESSING RESTREPO RX Malignant neoplasm of bone and articular cartilage Continuation of care fu F/U AFTER STARTING MEDS - LABS - [facility] F/U AFTER STARTING MEDS - LABS - [facility] 6 WKS - LABS Reason for Visit Change in skin mole BPH (benign prostatic hyperplasia) Hypertension Type 2 diabetes mellitus Weight loss, non-intentional Cellulitis of left arm Injury of left lower arm Type 2 diabetes mellitus Cellulitis of arm, left Closed left humeral fracture Fall History of diabetes mellitus Pathologic fracture of humerus Abnormal CT of the abdomen Bone cancer Elevated PSA Pathologic fracture of humerus Metastasis to bone Pathologic fracture of humerus Prostate cancer Arrhythmia Hypertension Pathologic fracture of humerus Prostate cancer Type 2 diabetes mellitus Venous insufficiency of both lower extremities Metastasis to bone Pathologic fracture of humerus Prostate cancer Metastasis to bone Pathologic fracture of humerus Prostate cancer Chief Complaint LYMPHEDMA. DR BLESSING RESTREPO RX Malignant neoplasm of bone and articular cartilage Continuation of care fu F/U AFTER STARTING MEDS - LABS - [facility] 6 WKS - LABS F/U AFTER STARTING MEDS - LABS - [facility] 6 WKS - LABS - [facility]/ZOMETA Reason for Visit Arrhythmia Hypertension Pathologic fracture of humerus Prostate cancer Type 2 diabetes mellitus Venous insufficiency of both lower extremities Metastasis to bone Pathologic fracture of humerus Prostate cancer Metastasis to bone Pathologic fracture of humerus Prostate cancer Metastasis to bone Pathologic fracture of humerus Prostate cancer Chief Complaint fu F/U AFTER STARTING MEDS - LABS - LUPRON 6 WKS - LABS F/U AFTER STARTING MEDS - LABS - LUPRON 6 WKS - LABS - LUPRON/ZOMETA 3 M FU VERTIGO Reason for Visit Arrhythmia Hypertension Pathologic fracture of humerus Prostate cancer Type 2 diabetes mellitus Venous insufficiency of both lower extremities Metastasis to bone Pathologic fracture of humerus Prostate cancer Metastasis to bone Pathologic fracture of humerus Prostate cancer Metastasis to bone Pathologic fracture of humerus Prostate cancer Carotid artery bruit Hypertension Prostate cancer Type 2 diabetes mellitus Venous insufficiency of both lower extremities Weight loss, non-intentional Chief Complaint Admit Date 3 M FU April 26, 2024 4 :33pm 6WKS LABS ZOMETA/LUPRON May 23, 2 024 9:52am foreign body June 03, 2024 5 :30pm Eligard July 04, 2024 1:15pm 6 WKS - LABS July 04, 2024 1:19pm CANCER August 07, 2024 9:3 1am Reason for Visit Admit Date Bradycardia April 26, 2024 4 :33pm Driving safety issue April 26, 2024 4:33pm Heart failure with reduced ejection frac tion April 26, 2024 4:33pm Hypertension April 26, 2024 4 :33pm Type 2 diabetes mellitus April 26, 2 024 4:33pm Metastasis to bone May 23, 2024 9:52am Prostate cancer May 23, 2024 9:52am Metastasis to bone July 04, 2024 1:19pm Prostate cancer July 04, 2024 1:19pm Pathologic fracture of humerus July 04, 2024 1:19pm Chief Complaint Admit Date 6 WKS - LABS July 04, 2024 1:19pm CANCER August 07, 2024 9:3 1am 6 WKS - LABS - LUPRON/ZOMETA - REVIEW ROMELIA NE SCAN August 15, 2024 2:18pm 6 M FU September 12, 2024 10: 10am Eligard September 26, 2024 1:45pm 6 WKS - LABS September 26, 2024 1:49pm 6 M FU October 25, 2024 2:05p m Reason for Visit Admit Date Metastasis to bone July 04, 2024 1:19pm Pathologic fracture of humerus July 04, 2024 1:19pm Prostate cancer July 04, 2024 1:19pm Metastasis to bone August 15, 2024 2:1 8pm Pathologic fracture of humerus July 2:18pm Prostate cancer August 15, 2024 2:1 8pm Heart failure with reduced ejection frac tion September 12, 2024 10:10am Hypertension September 12, 2024 10: 10am Left bundle branch block September 12 10:10am Nonobstructive atherosclerosis of chapman ry artery September 12, 2024 10:10am Metastasis to bone September 26, 2024 1:49pm Pathologic fracture of humerus September 26, 2024 1:49pm Prostate cancer September 26, 2024 1:49pm Chief Complaint Admit Date CANCER August 07, 2024 9:3 1am 6 WKS - LABS - LUPRON/ZOMETA - REVIEW ROMELIA NE SCAN August 15, 2024 2:18pm 6 M FU September 12, 2024 10: 10am 6 WKS - LABS September 26, 2024 1:49pm 6 M FU October 25, 2024 2:05p m 6 WKS - LABS - LUPRON/ZOMETA November 07, 2024 1:17pm Eligard November 07, 2024 1:30 pm Reason for Visit Admit Date Metastasis to bone August 15, 2024 2:1 8pm Pathologic fracture of humerus July 2:18pm Prostate cancer August 15, 2024 2:1 8pm Heart failure with reduced ejection frac tion September 12, 2024 10:10am Hypertension September 12, 2024 10: 10am Left bundle branch block September 12 10:10am Nonobstructive atherosclerosis of chapman ry artery September 12, 2024 10:10am Metastasis to bone September 26, 2024 1:49pm Pathologic fracture of humerus September 26, 2024 1:49pm Prostate cancer September 26, 2024 1:49pm BPH (benign prostatic hyperplasia) October 25, 2024 2:05pm Congestive heart failure (CHF) October 25, 2024 2:05pm Hypertension October 25, 2024 2:05p m Type 2 diabetes mellitus October 25, 2024 2:05pm Metastasis to bone November 07, 2024 1:17 pm Pathologic fracture of humerus October 1:17pm Prostate cancer November 07, 2024 1:17 pm Chief Complaint Admit Date 6 M FU September 12, 2024 10: 10am 6 WKS - LABS September 26, 2024 1:49pm 6 M FU October 25, 2024 2:05p m 6 WKS - LABS - LUPRON/ZOMETA November 07, 2024 1:17pm Eligard November 07, 2024 1:30 pm RIGHT HIP FRACTURE December 18, 2024 2:35 pm Reason for Visit Admit Date Heart failure with reduced ejection frac tion September 12, 2024 10:10am Hypertension September 12, 2024 10: 10am Left bundle branch block September 12 10:10am Nonobstructive atherosclerosis of chapman ry artery September 12, 2024 10:10am Metastasis to bone September 26, 2024 1:49pm Pathologic fracture of humerus September 26, 2024 1:49pm Prostate cancer September 26, 2024 1:49pm BPH (benign prostatic hyperplasia) October 25, 2024 2:05pm Congestive heart failure (CHF) October 25, 2024 2:05pm Hypertension October 25, 2024 2:05p m Type 2 diabetes mellitus October 25, 2024 2:05pm Metastasis to bone November 07, 2024 1:17 pm Pathologic fracture of humerus October 1:17pm Prostate cancer November 07, 2024 1:17 pm Chief Complaint Admit Date 6 M FU September 12, 2024 10: 10am 6 WKS - LABS September 26, 2024 1:49pm 6 M FU October 25, 2024 2:05p m 6 WKS - LABS - LUPRON/ZOMETA November 07, 2024 1:17pm Eligard November 07, 2024 1:30 pm RIGHT HIP FRACTURE December 18, 2024 2:35 pm RIGHT HIP FRACTURE December 19, 2024 7:42 am RIGHT HIP FRACTURE December 19, 2024 12:4 3pm RIGHT HIP FRACTURE December 20, 2024 1:40 pm RIGHT HIP FRACTURE December 20, 2024 2:05 pm RIGHT HIP FRACTURE December 21, 2024 8:23 am RIGHT HIP FRACTURE December 22, 2024 7:5 4am RIGHT HIP FRACTURE December 22, 2024 4:3 8pm RIGHT HIP FRACTURE December 23, 2024 3:3 6pm RIGHT HIP FRACTURE December 24, 2024 1:2 1pm Reason for Visit Admit Date Heart failure with reduced ejection frac tion September 12, 2024 10:10am Hypertension September 12, 2024 10: 10am Left bundle branch block September 12 10:10am Nonobstructive atherosclerosis of chapman ry artery September 12, 2024 10:10am Metastasis to bone September 26, 2024 1:49pm Pathologic fracture of humerus September 26, 2024 1:49pm Prostate cancer September 26, 2024 1:49pm BPH (benign prostatic hyperplasia) October 25, 2024 2:05pm Congestive heart failure (CHF) October 25, 2024 2:05pm Hypertension October 25, 2024 2:05p m Type 2 diabetes mellitus October 25, 2024 2:05pm Metastasis to bone November 07, 2024 1:17 pm Pathologic fracture of humerus October 1:17pm Prostate cancer November 07, 2024 1:17 pm Fracture of femoral neck, right, closed December 18, 2024 2:35pm Status post hemiarthroplasty of right hi p December 18, 2024 2:35pm Chief Complaint Admit Date 6 M FU September 12, 2024 10: 10am 6 WKS - LABS September 26, 2024 1:49pm 6 M FU October 25, 2024 2:05p m 6 WKS - LABS - LUPRON/ZOMETA November 07, 2024 1:17pm Eligard November 07, 2024 1:30 pm RIGHT HIP FRACTURE December 18, 2024 2:35 pm RIGHT HIP FRACTURE December 19, 2024 7:42 am RIGHT HIP FRACTURE December 19, 2024 12:4 3pm RIGHT HIP FRACTURE December 20, 2024 1:40 pm RIGHT HIP FRACTURE December 20, 2024 2:05 pm RIGHT HIP FRACTURE December 21, 2024 8:23 am RIGHT HIP FRACTURE December 22, 2024 7:5 4am RIGHT HIP FRACTURE December 22, 2024 4:3 8pm RIGHT HIP FRACTURE December 23, 2024 3:3 6pm RIGHT HIP FRACTURE December 24, 2024 1:2 1pm RIGHT HIP January 05, 2025 8: 59am Room 4 January 05, 2025 9: 23am Reason for Visit Admit Date Heart failure with reduced ejection frac tion September 12, 2024 10:10am Hypertension September 12, 2024 10: 10am Left bundle branch block September 12 10:10am Nonobstructive atherosclerosis of chapman ry artery September 12, 2024 10:10am Metastasis to bone September 26, 2024 1:49pm Pathologic fracture of humerus September 26, 2024 1:49pm Prostate cancer September 26, 2024 1:49pm BPH (benign prostatic hyperplasia) October 25, 2024 2:05pm Congestive heart failure (CHF) October 25, 2024 2:05pm Hypertension October 25, 2024 2:05p m Type 2 diabetes mellitus October 25, 2024 2:05pm Metastasis to bone November 07, 2024 1:17 pm Pathologic fracture of humerus October 1:17pm Prostate cancer November 07, 2024 1:17 pm Fracture of femoral neck, right, closed December 18, 2024 2:35pm Status post hemiarthroplasty of right hi p December 18, 2024 2:35pm Fracture of femoral neck, right, closed January 05, 2025 8:59am Status post hemiarthroplasty of right hi p January 05, 2025 8:59am Reason for Referral Specialty Diagnoses / Procedures Referred By Ailyn t Referred To Contact Diagnoses 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, initial encounter Procedures XR HUMERUS LEFT Lonnie Fischer MD [address] [place] [address] Referral ID Status Reason Start Date Expiration Date V isits Requested Visits Authorized [id number] New Request 03/12/2023 04/05/2024 1 1 Additional Source Comments (unrecognized sect ion and content) No Status Records FoundNo Status Records FoundNo Status Records Found INFORMATION SOURCE (unrecogn ized section and content) DATE CREATED AUTHOR 06/20/2021 [facility] [place] DATE CREATED AUTHOR AUTHOR'S ORGANIZ ATION 11/11/2023 [facility] DATE CREATED AUTHOR AUTHOR'S ORGANIZ ATION 01/08/2025 [facility] Goals (unrecognized section and content) Goals may be documented in a n alternate sectionGoals may be documented in an alternate sectionGoals may be documented in an alternate sectionGoals may be documented in an alternate sectionGoals may be documented in an alternate sectionGoals may be documented in an alternate sectionGoals may be documented in an alternate sectionGoals may be documented in an alternate sectionGoals may be documented in an alternate section Source Comments (unrecognize d section and content) In the event this informatio n is protected by the Federal Confidentiality of Alcohol and Drug Abuse Patient Records regulations: The Federal rules restrict any use of the information to criminally investigate or prosecute any alcohol or drug abuse patient.[facility] Reason for Visit (unrecogniz ed section and content) Reason Comments Refill Request Specialty Diagnoses / Procedures Referred By Contac t Referred To Contact Diagnoses 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 Tian Roberto MD Family Provider Active Dr. Dyan Kyle MD Primary Care Provider Active Team Status: Inactive Member Role Status Dates Dr. Dyan Kyle MD Primary Care P kyler, Attending Provider, Referring Provider Active Team Status: Inactive Member Role Status Dates Dr. Dyan Kyle MD Primary Care Provider, Refer ring Provider Active KELSIE Benton Attending Provider Active Team Status: Active Member Role Status Dates Dr. Dyan Kyle MD Primary Care Provider Active Dr. Simeon Gusman MD Emergency Provider Active Dr. Mariana Brown MD Admit Provider, Attending Provider, Other Provider Active Team Status: Active Member Role Status Dates Dr. Dyan Kyle MD Primary Care Provider Active KELSIE Benton Attending Provider Active Gladis Moreira Referring Provider Active Team Status: Active Member Role Status Dates Dr. Dyan Kyle MD Primary Care Provider Active Dr. Simeon Gusman MD Emergency Provider Active Dr. Mariana Brown MD Admit Provider, Attending Prov ider Active Team Status: Active Member Role Status Dates Dr. Dyan Kyle MD Primary Care Provider Active Dr. Simeon Gusman MD Emergency Provider Active Dr. Mariana Brown MD Admit Provider, Other Provider Active Dr. Theodore Starks DO Attending Provider, Other Prov ider Active Dr. Ted Lee MD Other Provider Active Team Status: Active Member Role Status Dates Dr. Dyan Kyle MD Primary Care Provider Active Dr. Simeon Gusman MD Emergency Provider Active Dr. Mariana Brown MD Admit Provider, Other Provider Active Dr. Theodore Starks DO Other Provider Active Dr. Ted Lee MD Attending Provider, Other Provi marie Active Team Status: Inactive Member Role Status Dates Dr. Dyan Kyle MD Primary Care Provider Active Dr. Simeon Gusman MD Emergency Provider Active Dr. Mariana Brown MD Admit Provider, Other Provider Active Dr. Theodore Starks DO Other Provider Active Dr. Ted Lee MD Attending Provider Active Team Status: Active Member Role Status Dates Dr. Dyan Kyle MD Primary Care Provider Active Dr. Win Ramey MD Attending Provider Active Team Status: Inactive Member Role Status Dates Dr. Dyan Kyle MD Primary Care Provider Active Albin IGLESIAS, [place] Attending Provider Active Gladis Moreira Referring Provider Active Team Status: Active Member Role Status Dates Dr. Dyan Kyle MD Primary Care Provider Active Dr. Simeon Gusman MD Emergency Provider Active Dr. Mariana Brown MD Admit Provider, Other Provider Active Dr. Theodore Starks DO Attending Provider, Other Prov ider Active Dr. Ted Lee MD Referring Provider, Other Provi marie Active Team Status: Active Member Role Status Dates Dr. Dyan Kyle MD Primary Care Provider Active Dr. Win Ramey MD Attending Provider Active Dr. Mariana Brown MD Referring Provider Active Team Status: Inactive Member Role Status Dates Dr. Dyan Kyle MD Primary Care Provider, Refer ring Provider Active Dr. Carolina Mcgee MD Attending Provider Active Team Status: Active Member Role Status Dates Dr. Dyan Kyle MD Primary Care Provider Active Dr. Carolina Mcgee MD Attending Provider, Referrin g Provider Active Team Status: Inactive Member Role Status Dates Dr. Dyan Kyle MD Primary Care Provider Active Dr. Carolina Mcgee MD Attending Provider, Referrin g Provider Active Team Status: Active Member Role Status Dates Dr. Dyan Kyle MD Primary Care Provider Active Dr. Carolina Mcgee MD Attending Provider Active Floral Designer Relationship Specialty Start Date End Date Dyan Kyle MD [address] [phone] PCP - General Internal Medicine 03/01/23 Carolina Mcgee [facility] [address] [facility] [place] [place] [phone] Oncologist Medical Oncology 03/01/23 Eileen Molina, MAVIS Registered Nurse 03/01/23 Team Status: Inactive Member Role Status Dates Dr. Dyan Kyle MD Primary Care Provider Active Dr. Carolina Mcgee MD Attending Provider Active Team Status: Active Member Role Status Dates Dr. Dyan Kyle MD Primary Care Provider, Atten ding Provider Active Dr. Carolina Mcgee MD Other Provider Active Floral Designer Relationship Specialty Start Date End Date Dyan Kyle MD [address] [phone] PCP - General Internal Medicine 03/01/23 Carolina [facility]gee [facility] [address] [facility] [place], [place] [id number] [phone] Oncologist Medical Oncology 03/01/23 Eileen Molina, RN Registered Nurse 03/01/23 Team Status: Inactive Member Role Status Dates Dr. Dyan Kyle MD Primary Care Provider, Refer ring Provider Active Rachael Posada EAP COUNSELOR, EAP COUNSELOR-C Attending Provider Active Team Status: Inactive Member Role Status Dates Dr. Dyan Kyle MD Primary Care Provider Active Dr. Jewel Fischer MD Attending Provider, Referrin g Provider Active Team Status: Active Member Role Status Dates Dr. Dyan Kyle MD Primary Care P rovider, Attending Provider, Referring Provider Active Team Status: Inactive Member Role Status Dates FER DE OLIVEIRA Attending Provider, Referring Provider Active Dr. Dyan Kyle MD Primary Care Provider Active Team Status: Active Member Role Status Dates Dr. Dyan Kyle MD Primary Care Provider Active Team Status: Inactive Member Role Status Dates Dr. Dyan Kyle MD Primary Care Provider Active Start: April 26, 2024 End: April 26, 2024 Dr. Dyan Kyle MD Attending Provider Active Start: April 26, 2024 End: April 26, 2024 Dr. Dyan Kyle MD Referring Provider Active Start: April 26, 2024 End: April 26, 2024 Team Status: Inactive Member Role Status Dates Dr. Dyan Kyle MD Primary Care Provider Active Start: May 23, 2024 End: May 23, 2024 Dr. Dyan Kyle MD Referring Provider Active Start: May 23, 2024 End: May 23, 2024 Racahel Posada EAP COUNSELOR, EAP COUNSELOR-C Attending Provider Active Start: May 23, 2024 End: May 23, 2024 Team Status: Inactive Member Role Status Dates Dr. Dyan Kyle MD Primary Care Provider Active Start: June 03, 2024 End: June 03, 2024 Dr. Carl Anders DO Attending Provider Active Start: June 03, 2024 End: June 03, 2024 Dr. Carl Anders DO Emergency Provider Active Start: June 03, 2024 End: June 03, 2024 Team Status: Active Member Role Status Dates Dr. Dyan Kyle MD Primary Care Provider Active Start: July 04, 2024 Dr. Carolina Mcgee MD Attending Provider Active Start: July 04, 2024 Dr. Carolina Mcgee MD Referring Provider Active Start: July 04, 2024 Team Status: Inactive Member Role Status Dates Dr. Dyan Kyle MD Primary Care Provider Active Start: July 04, 2024 End: July 04, 2024 Dr. Dyan Kyle MD Referring Provider Active Start: July 04, 2024 End: July 04, 2024 Dr. Carolina Mcgee MD Attending Provider Active Start: July 04, 2024 End: July 04, 2024 Team Status: Inactive Member Role Status Dates Dr. Dyan Kyle MD Primary Care Provider Active Start: August 07, 2024 End: August 07, 2024 Dr. Carolina Mcgee MD Attending Provider Active Start: August 07, 2024 End: August 07, 2024 Dr. Carolina Mcgee MD Referring Provider Active Start: August 07, 2024 End: August 07, 2024 Team Status: Inactive Member Role Status Dates Dr. Dyan Kyle MD Primary Care Provider Active Start: August 15, 2024 End: August 15, 2024 Dr. Dyan Kyle MD Referring Provider Active Start: August 15, 2024 End: August 15, 2024 Dr. Carolina Mcgee MD Attending Provider Active Start: August 15, 2024 End: August 15, 2024 Team Status: Inactive Member Role Status Dates Dr. Dyan Kyle MD Primary Care Provider Active Start: September 12, 2024 End: September 12, 2024 Dr. Dyan Kyle MD Referring Provider Active Start: September 12, 2024 End: September 12, 2024 KELSIE Andres Attending Provider Active St art: September 12, 2024 End: September 12, 2024 Team Status: Active Member Role Status Dates Dr. Dyan Kyle MD Primary Care Provider Active Start: September 26, 2024 Dr. Carolina Mcgee MD Attending Provider Active Start: September 26, 2024 Dr. Carolina Mcgee MD Referring Provider Active Start: September 26, 2024 Team Status: Inactive Member Role Status Dates Dr. Dyan Kyle MD Primary Care Provider Active Start: September 26, 2024 End: September 26, 2024 Dr. Dyan Kyle MD Referring Provider Active Start: September 26, 2024 End: September 26, 2024 Dr. Carolina Mcgee MD Attending Provider Active Start: September 26, 2024 End: September 26, 2024 Team Status: Inactive Member Role Status Dates Dr. Dyan Kyle MD Primary Care Provider Active Start: October 25, 2024 End: October 25, 2024 Dr. Dyan Kyle MD Attending Provider Active Start: October 25, 2024 End: October 25, 2024 Dr. Dyan Kyle MD Referring Provider Active Start: October 25, 2024 End: October 25, 2024 Team Status: Inactive Member Role Status Dates Dr. Dyan Kyle MD Primary Care Provider Active Start: November 07, 2024 End: November 07, 2024 Dr. Dyan Kyle MD Referring Provider Active Start: November 07, 2024 End: November 07, 2024 Dr. Carolina Mcgee MD Attending Provider Active Start: November 07, 2024 End: November 07, 2024 Team Status: Active Member Role Status Dates Dr. Dyan Kyle MD Primary Care Provider Active Start: November 07, 2024 Dr. Carolina Mcgee MD Attending Provider Active Start: November 07, 2024 Dr. Carolina Mcgee MD Referring Provider Active Start: November 07, 2024 Team Status: Active Member Role/Relationship Status Dates Dr. Dyan Kyle MD Primary Care Provider Active Team Status: Inactive Member Role/Relationship Status Dates Dr. Dyan Kyle MD Primary Care Provider Active Start: September 12, 2024 End: September 12, 2024 Dr. Dyan Kyle MD Referring Provider Active Start: September 12, 2024 End: September 12, 2024 KELSIE Andres Attending Provider Active St art: September 12, 2024 End: September 12, 2024 Team Status: Inactive Member Role/Relationship Status Dates Dr. Dyan Kyle MD Primary Care Provider Active Start: September 26, 2024 End: September 26, 2024 Dr. Dyan Kyle MD Referring Provider Active Start: September 26, 2024 End: September 26, 2024 Dr. Carolina Mcgee MD Attending Provider Active Start: September 26, 2024 End: September 26, 2024 Team Status: Inactive Member Role/Relationship Status Dates Dr. Dyan Kyle MD Primary Care Provider Active Start: October 25, 2024 End: October 25, 2024 Dr. Dyan Kyle MD Attending Provider Active Start: October 25, 2024 End: October 25, 2024 Dr. Dyan Kyle MD Referring Provider Active Start: October 25, 2024 End: October 25, 2024 Team Status: Inactive Member Role/Relationship Status Dates Dr. Dyan Kyle MD Primary Care Provider Active Start: November 07, 2024 End: November 07, 2024 Dr. Dyan Kyle MD Referring Provider Active Start: November 07, 2024 End: November 07, 2024 Dr. Carolina Mcgee MD Attending Provider Active Start: November 07, 2024 End: November 07, 2024 Team Status: Active Member Role/Relationship Status Dates Dr. Dyan Kyle MD Primary Care Provider Active Start: November 07, 2024 Dr. Carolina Mcgee MD Attending Provider Active Start: November 07, 2024 Dr. Carolina Mcgee MD Referring Provider Active Start: November 07, 2024 Team Status: Active Member Role/Relationship Status Dates Dr. Dyan Kyle MD Primary Care Provider Active Start: December 18, 2024 Dr. Win Alberto DO Emergency Provider Active Start: December 18, 2024 Dr. Amado Jean DO Admit Provider Active Start: December 18, 2024 Dr. Amado Jean DO Attending Provider Active Start: December 18, 2024 Team Status: Inactive Member Role/Relationship Status Dates Dr. Dyan Kyle MD Primary Care Provider Active Start: December 18, 2024 End: December 24, 2024 Dr. Win Alberto DO Emergency Provider Active Start: December 18, 2024 End: December 24, 2024 Dr. Amado Jean DO Admit Provider Active Start: December 18, 2024 End: December 24, 2024 Dr. Amado Jean DO Other Provider Active Start: December 18, 2024 End: December 24, 2024 Dr. Bj Hamilton MD Other Provider Active Star t: December 18, 2024 End: December 24, 2024 Dr. Radha Cope , DO Attending Provider Active S tart: December 18, 2024 End: December 24, 2024 Team Status: Active Member Role/Relationship Status Dates Dr. Dyan Kyle MD Primary Care Provider Active Start: December 19, 2024 Dr. Win Alberto , DO Emergency Provider Active Start: December 19, 2024 Dr. Amado Jean , DO Admit Provider Active Start: December 19, 2024 Dr. Amado Jean , DO Other Provider Active Start: December 19, 2024 Dr. Bj Hamilton MD Other Provider Active Star t: December 19, 2024 Dr. Radha Cope , DO Attending Provider Active S tart: December 19, 2024 Dr. Radha Cope , DO Other Provider Active Start : December 19, 2024 Team Status: Active Member Role/Relationship Status Dates Dr. Dyan Kyle MD Primary Care Provider Active Start: December 19, 2024 Dr. Win Alberto , DO Emergency Provider Active Start: December 19, 2024 Dr. Amado Jean , DO Admit Provider Active Start: December 19, 2024 Dr. Amado Jean , DO Other Provider Active Start: December 19, 2024 Dr. Bj Hamilton MD Attending Provider Active Start: December 19, 2024 Dr. Bj Hamilton MD Other Provider Active Star t: December 19, 2024 Dr. Radha Cope , DO Other Provider Active Start : December 19, 2024 Team Status: Active Member Role/Relationship Status Dates Dr. Dyan Kyle MD Primary Care Provider Active Start: December 20, 2024 Dr. Win Alberto , DO Emergency Provider Active Start: December 20, 2024 Dr. Amado Jean , DO Admit Provider Active Start: December 20, 2024 Dr. Amado Jean , DO Other Provider Active Start: December 20, 2024 Dr. Bj Hamilton MD Other Provider Active Star t: December 20, 2024 Dr. Radha Cope , DO Attending Provider Active S tart: December 20, 2024 Dr. Radha Cope , DO Other Provider Active Start : December 20, 2024 Team Status: Active Member Role/Relationship Status Dates Dr. Dyan Kyle MD Primary Care Provider Active Start: December 20, 2024 Dr. Win Alberto , DO Emergency Provider Active Start: December 20, 2024 Dr. Amado Jean , DO Admit Provider Active Start: December 20, 2024 Dr. Amado Jean DO Other Provider Active Start: December 20, 2024 Dr. Bj Hamilton MD Attending Provider Active Start: December 20, 2024 Dr. Bj Hamilton MD Other Provider Active Star t: December 20, 2024 Dr. Radha Cope , DO Other Provider Active Start : December 20, 2024 Team Status: Active Member Role/Relationship Status Dates Dr. Dyan Kyle MD Primary Care Provider Active Start: December 21, 2024 Dr. Win Alberto , DO Emergency Provider Active Start: December 21, 2024 Dr. Amado Jean , Admit Provider Active Start: December 21, 2024 Dr. Amado Jean , DO Other Provider Active Start: December 21, 2024 Dr. Bj Hamilton MD Other Provider Active Star t: December 21, 2024 Dr. Radha Cope DO Attending Provider Active S tart: December 21, 2024 Dr. Radha Cope , DO Other Provider Active Start : December 21, 2024 Team Status: Active Member Role/Relationship Status Dates Dr. Dyan Kyle MD Primary Care Provider Active Start: December 22, 2024 Dr. Win Alberto , DO Emergency Provider Active Start: December 22, 2024 Dr. Amado Jean , DO Admit Provider Active Start: December 22, 2024 Dr. Amado Jean , DO Other Provider Active Start: December 22, 2024 Dr. Bj Hamilton MD Other Provider Active Star t: December 22, 2024 Dr. Radha Cope , DO Other Provider Active Start : December 22, 2024 KELSIE Pisano Attending Provider Active Star t: December 22, 2024 Team Status: Active Member Role/Relationship Status Dates Dr. Dyan Kyle MD Primary Care Provider Active Start: December 22, 2024 Dr. Win Alberto , DO Emergency Provider Active Start: December 22, 2024 Dr. Amado Jean , DO Admit Provider Active Start: December 22, 2024 Dr. Amado Jean , DO Other Provider Active Start: December 22, 2024 Dr. Bj Hamilton MD Other Provider Active Star t: December 22, 2024 Dr. Radha Cope , Attending Provider Active S tart: December 22, 2024 Dr. Radha Cope , DO Other Provider Active Start : December 22, 2024 Team Status: Active Member Role/Relationship Status Dates Dr. Dyan Kyle MD Primary Care Provider Active Start: December 23, 2024 Dr. Win Alberto , Emergency Provider Active Start: December 23, 2024 Dr. Amado Jean , Admit Provider Active Start: December 23, 2024 Dr. Amado Jean , DO Other Provider Active Start: December 23, 2024 Dr. Bj Hamilton MD Other Provider Active Star t: December 23, 2024 Dr. Radha Cope , Attending Provider Active S tart: December 23, 2024 Dr. Radha Cope DO Other Provider Active Start : December 23, 2024 Team Status: Active Member Role/Relationship Status Dates Dr. Dyan Kyle MD Primary Care Provider Active Start: December 24, 2024 Dr. Win Alberto DO Emergency Provider Active Start: December 24, 2024 Dr. Amado Jean , DO Admit Provider Active Start: December 24, 2024 Dr. Amado Jean , Other Provider Active Start: December 24, 2024 Dr. Bj Hamilton MD Other Provider Active Star t: December 24, 2024 Dr. Radha Cope DO Attending Provider Active S tart: December 24, 2024 Dr. Radha Cope DO Other Provider Active Start : December 24, 2024 Team Status: Active Member Role/Relationship Status Dates Dr. Dyan Kyle MD Primary Care Provider Active Start: December 26, 2024 Dr. Arin ARGUETA MD Attending Provider Active Start: December 26, 2024 Team Status: Active Member Role/Relationship Status Dates Dr. Dyan Kyle MD Primary Care Provider Active Start: January 02, 2025 Dr. Arin ARGUETA MD Attending Provider Active Start: January 02, 2025 Team Status: Active Member Role/Relationship Status Dates Dr. Dyan Kyle MD Primary Care Provider Active Start: January 05, 2025 Dr. Dyan Kyle MD Referring Provider Active Start: January 05, 2025 NICOLÁS Barnes Attending Provider Active Start: January 05, 2025 Team Status: Inactive Member Role/Relationship Status Dates Dr. Dyan Kyle MD Primary Care Provider Active Start: January 05, 2025 End: January 05, 2025 Dr. Yadiel Bettencourt MD Attending Provider Active S tart: January 05, 2025 End: January 05, 2025 Team Status: Inactive Member Role/Relationship Status Dates Dr. Dyan Kyle MD Primary Care Provider Active Start: January 05, 2025 End: January 05, 2025 Dr. Dyan Kyle MD Referring Provider Active Start: January 05, 2025 End: January 05, 2025 NICOLÁS Barnes Attending Provider Active Start: January 05, 2025 End: January 05, 2025 FOR RECORDS PERTAINING TO PATIENTS WHO ARE [...] BE BASED ON THE PRIMARY CLINICAL RECORDS. [facility] [email or web address] provides no warranty or guarantee of the accuracy or completeness of information in this document.
[2025-01-09 07:46] LABS: Hematocrit 32.8 % (40-54); Hemoglobin 10.6 g/dL (13.0-16.5); Immature Granulocytes Count 0.030 X10^3/uL (0.0-0.0); Mean Corp Hgb Conc 32.3 g/dL (32-36); Mean Corpuscular Volume 109.3 fL (80-94); Mean Platelet Vol. 9.8 fl (6.2-12.0); NRBC Flagged by Analyzer 0 % (0-5); Platelet Count 273 K/mm3 (150-450); RBC Distribution Width CV 14.6 % (11.6-14.6); RBC Distribution Width SD 58.7 fl (35.1-43.9); Red Blood Count 3.00 M/mm3 (4.6-6.2); White Blood Count 4.1 K/mm3 (4.4-11.0)
[2025-01-09 08:11] LABS: AST(SGOT) 17 U/L (<=37); Alanine Aminotransfer ALT/SGPT 6 U/L (<=46); Albumin, Serum 3.3 g/dL (3.4-4.8); Alkaline Phosphatase 73 U/L (40-129); Anion Gap 12 (5-15); BUN 32 mg/dL (4-19); BUN/Creat Ratio 28.9 RATIO (10-20); Calcium,Total 8.6 mg/dL (7.6-11.0); Carbon Dioxide 23.1 mmol/L (21.0-32.0); Chloride 111 mmol/L (98-108); Globulin 3.0 g/dL (2.2-4.2); Glucose 89 mg/dL (70-99); Magnesium 2.6 mg/dL (1.5-2.2); Potassium 3.7 mmol/L (3.3-5.1)
== END ==
LOC: OLS.SW 05:00
PROVIDERS: PCP Internal Medicine; Visit Provider Internal Medicine
DX: C61 Malignant neoplasm of prostate (principal); C79.51 Secondary malignant neoplasm of bone; N40.0 Benign prostatic hyperplasia without lower urinary tract symptoms; S72.001D Fracture of unspecified part of neck of right femur, subsequent encounter for closed fracture with routine healing
CPT/HCPCS: 36415; 80053; 83735; 85025

== ENCOUNTER → 2025-01-17 | Outpatient (CLI) | payer MEDICARE, SELFPAY ==
[2025-01-17 15:56] LABS: Anion Gap 13 (5-15); BUN 29 mg/dL (4-19); BUN/Creat Ratio 23.7 RATIO (10-20); Calcium,Total 9.3 mg/dL (7.6-11.0); Carbon Dioxide 23.7 mmol/L (21.0-32.0); Chloride 106 mmol/L (98-108); Glucose 153 mg/dL (70-99); Potassium 4.2 mmol/L (3.3-5.1)
--- OUTSIDE RECORDS SUMMARY | 2025-01-17 21:13 | XMS RPT_ITS | CCD ---
Author Organization [facility] Care Team Providers Care Briquette Molder Name Role Phone Brenda Raymond Attending Provider [...] MD Primary Care Provider Carolina Prieto Unavailable Eileen Molina RN Unavailable Unavailable Dr. Dyan Kyle Primary Care Provider Dr. Dyan Kyle Attending Provider [phone] Dr. Dyan Kyle Referring Provider KELSIE De [...] Provider Dr. Carolina Mcgee Attending Provider Albino FARM MANAGEMENT TEACHER, FARM MANAGEMENT TEACHER-C Rachael Attending Provider Dr. Dyan Kyle Primary Care Provider Dr. Dyan Kyle Attending Provider Dr. Dyan Kyle Referring Provider [phone] Dr. Carolina Mcgee Attending Provider Dr. Win Ramey Attending Provider DYAN KYLE Referring Unavailable DYAN KYLE Primary Care Unavailable LONNIE FISCHER Attending Unavailable AMADO, LONNIE H Attending Unavailable OLEGHE, [...] Viera Referring Provider [phone] Albino MELCHOR-C, Racahel Attending Provider Dr. Carl Anders DO Attending [...] Dr. Dyan Kyle MD Attending Provider [phone] Dr. Dyan Kyle MD Primary Care Provider Dr. Carolina Mcgee MD Attending Provider Dr. Dyan Kyle MD Referring Provider Saroj COVARRUBIAS, Dr. Viera Primary Care Provider Saroj COVARRUBIAS, Dr. Viera Referring Provider Arely COVARRUBIAS, Dr. Figueroa Attending Provider Arely COVARRUBIAS, Dr. Figueroa Referring Provider Dolly NUÑEZ, Dr. Walden Emergency Provider Miranda NUÑEZ, Dr. Fischer Admit Provider Miranda NUÑEZ, Dr. Fischer Attending Provider Miranda NUÑEZ, Dr. Fischer Other Provider Alfonso COVARRUBIAS, Dr. Lorenzo Other Provider Anatoliy NUÑEZ, Dr. Garcia Attending Provider Anatoliy NUÑEZ, Dr. Garcia Other Provider Alfonso COVARRUBIAS, Dr. Lorenzo Attending Provider Renae Araujo Attending Provider Dr. Arin Weston MD Attending Provider Unavaila michelle Patel NP-CJackie Attending Provider Sg COVARRUBIAS, Dr. Cotto Attending Provider Saroj COVARRUBIAS, Dr. Viera Primary Care Provider Saroj COVARRUBIAS, Dr. Viera Referring Provider Dr. Arin Weston MD Referring Provider Unavaila ble Carolina Mcgee Attending Unavailable Oleghe, Efewongbe Primary Care Unavailable Carolina Mcgee Referring Unavailable Oleghe, Efewongbe Primary Care Unavailable Arin Kline Attending Unavailable Oleghe, Efewongbe Primary Care Unavailable Gudla Arin ARGUETA Attending Unavailable Oleghe, Efewongbe Primary Care Unavailable Arin Kline Referring Unavailable Guoscara Arin ARGUETA Attending Unavailable Carolina Mcgee Referring Unavailable Carolina Mcgee Attending Unavailable Oleghe, Efewongbe Primary Care Unavailable Radha Cope Attending Unavailable Oleghe, Efewongbe Primary Care Unavailable Bj Hamilton Consulting Unavailable Amado Jean Admitting Unavailable Amado Jean Consulting Unavailable Radha Cope Consulting Unavailable Oleghe, Efewongbe Primary Care Unavailable Yadiel Bettencourt Attending Unavailable Oleghe, Efewongbe Primary Care Unavailable Lisy Nguyễn Attending Unavailable Bj Hamilton Consulting Unavailable Amado Jean Admitting Unavailable Oleghe, Efewongbe Primary Care Unavailable Radha Cope Attending Unavailable Amado Jean Consulting Unavailable Oleghe, Efewongbe Primary Care Unavailable Oleghe, Efewongbe Referring Unavailable Oleghe, Efewongbe Attending Unavailable Oleghe, Efewongbe Primary Care Unavailable Albino FARM MANAGEMENT TEACHER, Rachael Attending Unavailable Oleghe, Efewongbe Referring Unavailable Oleghe, Efewongbe Attending Unavailable Oleghe, Efewongbe Primary Care Unavailable Oleghe, Efewongbe Referring Unavailable Renae Rodríguez Attending Unavailable Oleghe, Efewongbe Primary Care Unavailable Oleghe, Efewongbe Attending Unavailable Oleghe, Efewongbe Referring Unavailable IscCarolina burgos Attending Unavailable Oleghe, Efewongbe Primary Care Unavailable Oleghe, Efewongbe Referring Unavailable IsckarCarolina woodward Attending Unavailable Oleghe, Efewongbe Referring Unavailable Oleghe, Efewongbe Primary Care Unavailable Bob Snyder Attending Unavailable Oleghe, Efewongbe Referring Unavailable Oleghe, Efewongbe Primary Care Unavailable Carolina Mcgee Attending Unavailable Oleghe, Efewongbe Referring Unavailable Oleghe, Efewongbe Primary Care Unavailable Oleghe, Efewongbe Primary Care Unavailable Albino FARM MANAGEMENT TEACHER, Rachael Attending Unavailable Oleghe, Efewongbe Referring Unavailable Oleghe, Efewongbe Primary Care Unavailable Daniel Phillips Referring Unavailable Daniel Phillips Attending Unavailable Amado Jean Attending Unavailable MagdyusCarolina Attending Unavailable Isckarus, Mansour Referring Unavailable Oleghe, Efewongbe Primary Care Unavailable Bj Hamilton Attending Unavailable Oleghe, Efewongbe Primary Care Unavailable NURSE, CHERELLE Attending Unavailable Oleghe, Efewongbe Referring Unavailable Oleghe, Efewongbe Primary Care Unavailable Albino FARM MANAGEMENT TEACHER, Rachael Attending Unavailable Oleghe, Efewongbe Referring Unavailable Oleghe, Efewongbe Primary Care Unavailable Oleghe, Efewongbe Referring Unavailable Rachael Posada NP Attending Unavailable Oleghe, Efewongbe Primary Care Unavailable Oleghe, Efewongbe Attending Unavailable Oleghe, Efewongbe Referring Unavailable Carolina Mcgee Attending Unavailable Oleghe, Efewongbe Primary Care Unavailable Oleghe, Efewongbe Referring Unavailable Oleghe, Efewongbe Primary Care Unavailable Jackie Patel Attending Unavailable Oleghe, Efewongbe Referring Unavailable Oleghe, Efewongbe Primary Care Unavailable Yadiel Bettencourt Attending Unavailable Oleghe, Efewongbe Primary Care Unavailable Daniel Phillips Attending Unavailable Oleghe, Efewongbe Referring Unavailable Oleghe, Efewongbe Primary Care Unavailable Carl Anders Attending Unavailable Allergies Allergy Classification Reported Allergen(s) Allergy Type Date of Onset Reaction(s) Facility (20 sources) Shellfish; Translations: [shellfish derived] Allergy to substance 12-12-2015 [facility] (2 sources) Shellfish-Derive d Products Propensity to adverse reactions to drug 03-08-2023 [facility] Medications Current Medications Medication Drug [...] March 12, 2023 3:31pm Fever, pain 1-10 Nflw-dud-eqgjxdh. 1000 mg every 8 hourly for 1 week and then as needed. Start: 02-14-2023 End: 03-12-2023 Acetaminophen Discontinued 1 000 MG PO Q8H 0 February 13, 2023 11:00pm March 12, 2023 2:31pm Poek-ozb-evxennv. 1000 mg every 8 hourly for 1 week and then as needed. take 1 tablet by bernardino th every four hours Acetaminophen 325 MG tablet Take 1 tablet by mouth every 4 hours. 0 Active Aluminum-Magnesium Hydroxide 225-200 mg/5 mL suspension (3 sources) Start: 01-05-2025 take 1 mL by mouth every four hours as needed Aluminum-Magnesium Hydroxide 225-200 mg/5 mL suspension Active 30 mL PO EVERY 4 HOURS NEEDED January 05, 2025 12:00am apixaban 5 mg oral tablet (4 sources) Factor Xa Inhibitor Start: 12-24-2024 take 2.5 mg by mouth twice daily Apixaban (Eliquis) 5 mg Tablet Active 2.5 mg PO TWICE A DAY 0 0 December 24, 2024 12:00am aspirin 81 mg delayed release oral tablet (7 sources) Platelet Aggregation Inhibitor, Nonsteroidal Anti-inflammatory Drug Start: 09-13-2024 take 1 tablet by mouth once daily Aspirin (Adult Aspirin Regimen) 81 mg tablet,delayed release (DR/EC) Active 81 mg PO daily 90 September 13, 2024 12:00am atorvastatin 10 mg oral tablet (7 sources) HMG-CoA Reductase Inhibitor Start: 09-13-2024 take 1 tablet by mouth once daily Atorvastatin 10 mg tablet Active 10 mg PO daily 90 September 13, 2024 12:00am bisacodyl 10 mg rectal suppository (3 sources) Stimulant Laxative Start: 01-05-2025 Bisacodyl 10 mg suppository Active 10 mg RC ONCE January 05, 2025 12:00am calcium carbonate 500 mg chewable tablet (4 sources) Start: 12-24-2024 take 1 tablet by mouth three times daily at mealtime Calcium Carbonate 200 mg calcium (500 mg) Tablet,Chewable Active 500 mg PO 3 TIMES DAILY WITH MEALS 0 0 December 24, 2024 12:00am dapagliflozin 5 mg oral tablet (3 sources) Sodium-Glucose Cotransporter 2 Inhibitor Start: 01-05-2025 take 1 tablet by mouth once daily in the morning Dapagliflozin Propanediol 5 mg tablet Active 5 mg PO EVERY MORNING January 05, 2025 12:00am empagliflozin 25 mg oral tablet (17 sources) Sodium-Glucose Cotransporter 2 Inhibitor Start: 01-15-2025 take 1 tablet by mouth once daily Empagliflozin (Jardiance) 25 mg tablet Active 25 mg PO daily 90 January 15, 2025 12:00am Start: 11-15-2023 End: 01-05-2025 take 1 tablet by mouth once daily Empagliflozin (Jardiance) 10 mg tablet Discontinued 10 mg PO DAILY 30 30 February 16, 2024 12:04pm January 05, 2025 9:35am ergocalciferol 1.25 mg oral capsule (3 sources) Provitamin D2 Compound Start: 01-05-2025 Ergocalciferol (Marita min D2) 1,250 mcg (50,000 unit) capsule Active 1250 ug PO EVERY WEEK January 05, 2025 12:00am furosemide 40 mg oral tablet (20 sources) Loop Diuretic Start: 01-15-2025 Furosemide 40 mg tablet Active 20 mg PO DAILY 90 January 15, 2025 8:21am Start: 11-15-2023 End: 01-15-2025 take 1 tablet by mouth once daily Furosemide 40 mg tablet Discontinued 40 mg PO DAILY 90 3 January 12, 2025 8:01am January 15, 2025 8:22am Start: 11-09-2023 End: 11-15-2023 take 1 tablet by mouth twice daily Furosemide 20 mg tablet Discontinued 20 mg PO TWICE A DAY November 12, 2023 12:00am November 15, 2023 3:33pm Start: 10-08-2023 End: 11-09-2023 take 1 tablet by mouth once daily Furosemide 20 mg tablet Discontinued 20 mg PO DAILY 30 November 01, 2023 4:43pm November 08, 2023 2:18pm glucagon (rdna) 1 mg injection (3 sources) Antihypoglycemic Agent Start: 01-05-2025 Glucagon (Glucagon Emergency Kit (Human)) 1 mg recon soln Active 1 mg SC Q20M as needed January 05, 2025 12:00am until target blood sugar attained glucose 0.4 mg/mg oral gel (3 sources) Start: 01-05-2025 Dextrose (Glucose Gel) 40 % gel Active 10 g PO Q15M as needed January 05, 2025 12:00am until symptoms of low blood sugar are controlled guaiFENesin 20 mg/ml oral solution (3 sources) Start: 01-05-2025 take 200 mg by mouth every four hours as needed Guaifenesin 100 mg/5 mL liquid Active 200 mg PO Q4H as needed January 05, 2025 12:00am Lift Chair (3 sources) Start: 01-02-2025 Lift Chair Active 0 .Route .MEDSUPPLY 1 0 January 02, 2025 12:00am Malignant neoplasm metastatic to bone Debility Cardiomyopathy Secondary malignant neoplasm of bone Other malaise Cardiomyopathy, unspecified As directed Magnesium Hydroxide (3 sources) Start: 01-05-2025 take 1 mL by mouth once as needed Magnesium Hydroxide (Milk Of Magnesia) 400 mg/5 mL suspension Active 30 mL PO ONCE as needed January 05, 2025 12:00am Multiple Vitamin (multivitamin) capsule (2 sources) take 1 capsule by mouth once daily Multiple Vitamin (multivitamin) capsule Take 1 capsule by mouth daily. 0 Active Sennosides (Senna) 8.6 mg Tablet (4 sources) Start: 12-24-2024 take 1 tablet by mouth twice daily Sennosides (Senna) 8.6 mg Tablet Active 8.6 mg PO TWICE A DAY 1 0 December 24, 2024 12:00am sennosides, retirement 8.6 mg oral tablet (2 sources) take [...] mg / clavulanate 125 mg oral tablet (17 sources) Penicillin-class Antibacterial Start: 02-14-2023 End: 03-12-2023 Amoxicillin-Pot Clavulanate 875-125 mg tablet Discontinued 1 {tbl} PO TWICE A DAY 10 5 0 February 14, 2023 12:00am March 12, 2023 3:31pm Start: 02-14-2023 End: 03-12-2023 take 1 tablet by mouth twice daily Amoxicillin-Pot Clavulanate Discontinued 1 TABLET PO TWICE A DAY 10 5 February 13, 2023 11:00pm March 12, 2023 2:31pm Ascorbic Tbeq-Gnhnbzqn-Xvf (Vitamin C Fizzy Drink) 1,000 mg powder effervescent in packet (8 sources) Start: 10-25-2023 End: 11-12-2023 Ascorbic Ecrz-Yhawbvdc-Pqd (Vitamin C Fizzy Drink) 1,000 mg powder effervescent in packet Discontinued NMA PO October 25, 2023 12:00am November 12, 2023 4:42pm carvedilol 25 mg oral tablet (20 sources) alpha-Adrenergi c Keisha, beta-Adrenergic Keihsa Start: 12-11-2024 Carvedilol 25 mg tab let Active 25 mg PO TWICE A DAY 180 30 3 December 11, 2024 11:14am On Hold: Restart once systolic blood pressure is consistently greater than 130 Start: 01-03-2024 End: 12-11-2024 take 1 tablet by mouth twice daily Carvedilol 25 mg tablet Discontinued 25 mg PO TWICE A DAY 60 30 11 January 03, 2024 3:23pm December 11, 2024 [...] 9:08am docusate sodium 50 mg / sennosides, retirement 8.6 mg oral tablet (17 sources) Start: 02-14-2023 End: 03-24-2023 Sennosides-Docusate Sodium (Stool Softener-Stimulant Laxat) 8.6-50 mg Tablet Discontinued 2 {tbl} PO TWICE A DAY 0 0 February 14, 2023 12:00am March 24, 2023 10:35am scheduled while taking pain meds. OTC enzalutamide 80 mg oral tablet (20 sources) Androgen Receptor Inhibitor Start: 03-02-2023 End: 03-24-2023 Enzalutamide (Enzalutamide 80 Mg Tablet) 80 mg tablet Discontinued mg PO March 12, 2023 12:00am March 24, 2023 10:35am Start: 03-02-2023 take 2 tablets by mo uth once daily Xtandi 80 MG tablet Take 160 mg by mouth daily. 0 03/02/2023 Active JUXTA LITE (13 sources) Start: 03-24-2023 End: 12-06-2023 JUXTA LITE [...] Take by mouth. Multivitamin (Daily Multi-Vitamin) tablet (18 sources) Start: 02-12-2023 End: 10-25-2023 Multivitamin (Daily [...] TABLET PO DAILY February 12, 2023 12:00am Eh-Hgo-Wxnmf-A0-Oennuji-Wmho in (Centrum Silver Men) 300-600-300 mcg tablet (18 sources) Start: 04-06-2022 End: 07-09-2022 Pa-Elr-Lwfsi-Y6-Dlbvvyo-Hxwe in (Centrum Silver Men) 300-600-300 mcg tablet Discontinued 1 {tbl} PO DAILY April 06, 2022 1:00am July 09, 2022 3:51pm Start: 04-06-2022 End: 07-09-2022 take 300-600 tablets by mouth once daily Ua-Set-Mjarw-P8-Gctldsv-Ktsitt (Centrum Silver Men) 300-600-300 mcg tablet Discontinued 1 TABLET PO DAILY April 06, 2022 12:00am July 09, 2022 2:51pm Start: 04-06-2022 End: 07-09-2022 take 300-600 tablets by mouth once daily Se-Wul-Rpusv-M5-Urkeqso-Kfgaxz (Centrum Silver Men) 300-600-300 mcg tablet Discontinued 1 TABLET PO DAILY April 06, 2022 1:00am July 09, 2022 3:51pm oxyCODONE hydrochloride 5 mg oral tablet (19 sources) Opioid Agonist Start: 02-14-2023 End: 03-24-2023 take 2.5-5 mg by mouth every four hours as needed for pain Oxycodone 5 mg Tablet Discontinued 2.5 - 5 mg PO EVERY 4 HOURS NEEDED as needed for Pain Score 4-10 20 7 0 February 14, 2023 March 24, 2023 10:35am sacubitril 49 mg / valsartan 51 mg oral tablet (20 sources) Angiotensin 2 Receptor Keisha Start: 12-07-2023 End: 11-20-2024 Sacubitril-Valsart an (Entresto) 49-51 mg tablet Active 1 {tbl} PO TWICE A DAY 60 11 November 20, 2024 12:25pm On Hold: Restart once systolic blood pressure is consistently greater than 130 Start: 11-15-2023 End: 12-07-2023 Sacubitril-Valsartan (Entres to) 24-26 mg Tablet Discontinued 1 {tbl} PO TWICE A DAY 60 30 2 November 15, 2023 12:00am December 07, 2023 2:22pm Vitamin B Complex (B Complex-Vitamin B12) tablet (18 sources) Start: 04-06-2022 End: 02-12-2023 Vitamin B [...] prostate] Onset: 02-26-2023 02-24-2023 Chronic Cardiac dysrhythmias (18 sources) Cardiac arrhythmia; Translations: [Cardiac arrhythmia, unspecified] 03-24-2023 Chronic Cardiac dysrhythmias (9 sources) Bradycardia; Translations: [Bradycardia, unspecified] 04-26-2024 Episodic Conduction disorders (20 sources) Complete left bundle branch block; Translations: [Left bundle-branch block, unspecified] 11-16-2023 Chronic Congestive heart failure; nonhypertensive (20 sources) Heart failure with reduced ejection fraction; Translations: [Unspecified systolic (congestive) heart failure] 01-19-2024 Chronic Coronary atherosclerosis and other heart disease (13 sources) Non-obstructive atherosclerosis of coronary artery; Translations: [Atherosclerotic heart disease of [place] coronary artery without angina pectoris] 09-13-2024 Chronic Diabetes mellitus without complication (20 sources) Type 2 diabetes mellitus; Translations: [Type 2 diabetes mellitus without complications] Onset: 10-25-2024 Chronic E Codes: Fall (20 sources) Fall; Translations: [Unspecified fall, initial encounter] 02-12-2023 Episodic Essential hypertension (20 sources) Hypertensive disorder; Translations: [Essential (primary) hypertension] 01-20-2023 Chronic Fracture of neck of femur (hip) (14 sources) Closed fracture of neck of femur; [...] tract symptoms] 01-20-2023 Chronic Malaise and fatigue (8 sources) Asthenia; Translations: [Other malaise] 11-16-2023 Episodic Nonspecific chest pain (1 source) Chest pain, unspecified; Translations: [Chest pain, unspecified] Onset: 01-15-2025 Episodic Other aftercare (5 sources) Long-term current use of diuretic; Translations: [Encounter for therapeutic drug level monitoring] 12-13-2024 Episodic Other and unspecified benign neoplasm (19 sources) Change in skin lesion; Translations: [Melanocytic nevi, unspecified] 11-27-2021 Episodic Other and unspecified benign neoplasm (8 sources) Melanocytic nevi, unspecified; Translations: [Benign neoplasm of skin, site unspecified] Episodic Other circulatory disease (10 sources) Disorder of carotid artery; Translations: [Disorder of arteries and arterioles, unspecified] 07-07-2023 Chronic Other circulatory disease (19 sources) Elevated blood pressure; Translations: [Elevated blood-pressure reading, without diagnosis of hypertension] 02-12-2023 Episodic Other circulatory disease (1 source) Elevated blood-pressure reading, without diagnosis of hypertension; Translations: [Elevated blood pressure reading without diagnosis of hypertension] Episodic Other circulatory disease (10 sources) Carotid bruit; Translations: [Other specified symptoms and signs involving the circulatory and respiratory systems] 07-07-2023 Episodic Other circulatory disease (2 sources) Other specified symptoms and signs involving the circulatory and respiratory systems; Translations: [Other symptoms involving cardiovascular system] 07-07-2023 Episodic Other connective tissue disease (11 sources) History of repair of hip joint; Translations: [Presence of right artificial hip joint] 12-20-2024 Chronic Other connective tissue disease (2 sources) Presence of right artificial hip joint; Translations: [Presence of right artificial hip joint] Onset: 12-24-2024 Chronic Other diseases of veins and lymphatics (13 sources) Venous insufficiency of leg; Translations: [Venous insufficiency (chronic) (peripheral)] 03-24-2023 Episodic Other diseases of veins and lymphatics (7 sources) Venous insufficiency (chronic) (peripheral); Translations: [Venous (peripheral) insufficiency, unspecified] 03-24-2023 Episodic Other injuries and conditions due to external causes (18 sources) Injury of forearm; Translations: [Unspecified injury of left forearm, initial encounter] 02-12-2023 Episodic Other injuries and conditions due to external causes (7 sources) Unspecified injury of left forearm, initial encounter; Translations: [Elbow, forearm, and wrist injury] 02-12-2023 Episodic Other injuries and conditions due to external causes (8 sources) Foreign body in esophagus; Translations: [Unspecified foreign body in esophagus causing other injury, initial encounter] 06-11-2024 Episodic Other lower respiratory disease (8 sources) Dyspnea; Translations: [Dyspnea, unspecified] 11-16-2023 Episodic Other nutritional; endocrine; and metabolic disorders (18 sources) Unintentional weight loss; Translations: [Abnormal weight loss] 01-20-2023 Episodic Other nutritional; endocrine; and metabolic disorders (18 sources) H/O: diabetes mellitus; Translations: [Personal history [...] caused by tuberculosis or sexually transmitted disease) (8 sources) Cardiomyopathy; Translations: [Cardiomyopathy, unspecified] 11-16-2023 Chronic Residual codes; unclassified (9 sources) Driving fitness status; Translations: [Other specified personal risk factors, not elsewhere classified] 04-26-2024 Episodic Residual codes; unclassified (8 sources) Bilateral lower limb edema; Translations: [Localized edema] 11-16-2023 Episodic Residual codes; unclassified (5 sources) Edema; Translations: [Edema, unspecified] 12-13-2024 Episodic [...] Episodic Immunizations and screening for infectious disease (19 sources) Needs influenza immunization; Translations: [Encounter for immunization] Onset: 03-03-2024 04-06-2022 Episodic Mood disorders (2 sources) Mood disorders Onset: 03-12-2023 Resolved: 04-12-2023 03-12-2023 Other non-traumatic joint disorders (1 source) Pain in right hip; Translations: [Pain in right hip] Onset: 03-27-2024 Episodic Residual codes; unclassified (1 source) Localized edema; Translations: [Localized edema] Onset: 04-11-2024 Episodic Unclassified (2 sources) Onset: 03-12-2023 Resolved: 04-12-2023 03-12-2023 NEGATED: Highlighted row has been ruled out!Unclassified (2 sources) No known active problems 03-12-2023 Results Test Name Value Interpretation Reference Range Facility Absolute lymphocyte countOrd ered By: Arin Weston on 01-09-2025 Lymphocytes Auto (Unsp spec) [#/Vol] 1.57 10*3/uL 0.83-4.51 [facility] Absolute neutrophil countOrd ered By: Arin Weston on 01-09-2025 Neutrophils (Bld) [#/Vol] 2.0 10*3/uL 2.0-7.7 [facility] Anion gap in Serum or Plasma Ordered By: Arin Weston on 01-09-2025 Anion gap [Moles/Vol] 12 mmol/L 5-15 [facility] Automated lymphocyte count a s percentage of total leukocytesOrdered By: Arin Weston on 01-09-2025 Lymphocytes/100 WBC Auto (Unsp spec) 38.1 % [facility] BUN/creatinine ratioOrdered By: Arin Weston on 01-09-2025 Urea nitrogen/Creatinine [Mass ratio] 28.9 mg/mg High 10-20 [facility] Basophil percentageOrdered B y: Arin Weston on 01-09-2025 Basophils/100 WBC (Bld) 1.2 % High 0-1 [facility] Bilirubin, totalOrdered By: Arin Weston on 01-09-2025 Bilirubin [Mass/Vol] 0.45 mg/dL 0.00-1.30 [facility] CBC W/Diff, Automatedon 12-22 Absolute Lymph 1.57 X10 3/uL Normal 0.83-4.51 [facility] Comment on above: Order Comment: 210.1 Performed By: #### L [id number], [id number], L100.0100 ####[facility] [id number] [place], [address] Absolute Neut 2.0 X10 3/uL Normal 2.0-7.7 [facility] Comment on above: Order Comment: 210.1 Performed By: #### L [id number], [id number], L100.0100 ####[facility] [address] [place], [address] Basophils/100 WBC (Bld) 1.2 % High 0-1 [facility] Comment on above: Order Comment: 210.1 Performed By: #### L [id number], [id number], L100.0100 ####[facility] [address] [place], [address] Eosinophils/100 WBC (Bld) 2.4 % Normal 0-5 [facility] Comment on above: Order Comment: 210.1 Performed By: #### L [id number], [id number], L100.0100 ####[facility] [address] [place], [address] Erythrocyte distribution width (RBC) [Ratio] 14.6 % Normal 11.6-14.6 [facility] Comment on above: Order Comment: 210.1 Performed By: #### L [id number], [id number], L100.0100 ####[facility] [address] [place], [address] Hematocrit (Bld) [Volume fraction] 32.8 % Low 40-54 [facility] Comment on above: Order Comment: 210.1 Performed By: #### L [id number], [id number], L100.0100 ####[facility] [address] [place], [address] Hemoglobin (Bld) [Mass/Vol] 10.6 g/dL Low 13.0-16.5 [facility] Comment on above: Order Comment: 210.1 Performed By: #### L [id number], [id number], L100.0100 ####[facility] [address] [place], [address] IG% 0.700 Normal 0.0-0.9 [facility] Comment on above: Order Comment: 210.1 Result Comment: IG% - Immature Granulocytes (promyelocytes, myelocytes andmetamyelocytes) > 1% indicates that a LEFT SHIFT is Present. Performed By: #### L [id number], [id number], L100.0100 ####[facility] [address] [place], [address] Lymphocytes/100 WBC (Bld) 38.1 % Normal 19-41 [facility] Comment on above: Order Comment: 210.1 Performed By: #### L [id number], [id number], L100.0100 ####[facility] [address] [place], [address] MCH (RBC) [Entitic mass] 35.3 pg High 27.0-32.0 [facility] Comment on above: Order Comment: 210.1 Performed By: #### L [id number], [id number], L100.0100 ####[facility] [address] [place], [address] MCHC (RBC) [Mass/Vol] 32.3 g/dL Normal 32-36 [facility] Comment on above: Order Comment: 210.1 Performed By: #### L 501.5200, L500.4050, L100.0100 ####[facility] [address] [place], [address] MCV (RBC) [Entitic vol] 109.3 fL High 80-94 [facility] Comment on above: Order Comment: 210.1 Performed By: #### L 501.5200, L500.4050, L100.0100 ####[facility] [address] [place], [address] Monocytes/100 WBC (Bld) 9.2 % Normal 0-10 [facility] Comment on above: Order Comment: 210.1 Performed By: #### L 501.5200, L500.4050, L100.0100 ####[facility] [address] [place], [address] Neutrophils/100 WBC (Bld) 48.4 % Normal 47-70 [facility] Comment on above: Order Comment: 210.1 Performed By: #### L 501.5200, L500.4050, L100.0100 ####[facility] [address] [place], [address] Nucleated RBC (Bld) [#/Vol] 0 10*3/uL Normal 0-5 [facility] Comment on above: Order Comment: 210.1 Performed By: #### L 501.5200, L500.4050, L100.0100 ####[facility] [address] [place], [address] Platelet mean volume (Bld) [Entitic vol] 9.8 fL Normal 6.2-12.0 [facility] Comment on above: Order Comment: 210.1 Performed By: #### L 501.5200, L500.4050, L100.0100 ####[facility] [address] [place], [address] Platelets (Bld) [#/Vol] 273 10*3/uL Normal 150-450 [facility] Comment on above: Order Comment: 210.1 Performed By: #### L 501.5200, L500.4050, L100.0100 ####[facility] [address] [place], [address] RBC (Bld) [#/Vol] 3.00 10*6/uL Low 4.6-6.2 [facility] Comment on above: Order Comment: 210.1 Performed By: #### L 501.5200, L500.4050, L100.0100 ####[facility] [address] [place], [address] RDW SD 58.7 fl High 35.1-43.9 [facility] Comment on above: Order Comment: 210.1 Performed By: #### L 501.5200, L500.4050, L100.0100 ####[facility] [address] [place], [address] WBC (Bld) [#/Vol] 4.1 10*3/uL Low 4.4-11.0 [facility] Comment on above: Order Comment: 210.1 Performed By: #### L 501.5200, L500.4050, L100.0100 ####[facility] [address] [place], [address] Carbon dioxide, total [Moles /volume] in Central venous bloodOrdered By: Arin Weston on 01-09-2025 CO2 [Moles/Vol] 23.1 mmol/L 21.0-32.0 [facility] Chloride assayOrdered By: Lebron Weston on 01-09-2025 Chloride [Moles/Vol] 111 mmol/L High 98-108 [facility] Comprehensive Metabolic Prof ilon 01-09-2025 Albumin [Mass/Vol] 3.3 g/dL Low 3.4-4.8 [facility] Comment on above: Order Comment: 210.1 Performed By: #### L 501.5200, L500.4050, L100.0100 ####[facility] [address] [place], [address] Albumin/Globulin [Mass ratio] 1.1 {ratio} Normal 0.9-2.4 [facility] Comment on above: Order Comment: 210.1 Performed By: #### L 501.5200, L500.4050, L100.0100 ####[facility] [address] [place], [address] ALK PHOS 73 U/L Normal 40-129 [facility] Comment on above: Order Comment: 210.1 Performed By: #### L 501.5200, L500.4050, L100.0100 ####[facility] [address] [place], [address] ALT [Catalytic activity/Vol] 6 U/L Normal <=46 [facility] Comment on above: Order Comment: 210.1 Performed By: #### L 501.5200, L500.4050, L100.0100 ####[facility] [address] [place], [address] AST [Catalytic activity/Vol] 17 U/L Normal <=37 [facility] Comment on above: Order Comment: 210.1 Performed By: #### L 501.5200, L500.4050, L100.0100 ####[facility] [address] [place], [address] Bilirubin [Mass/Vol] 0.45 mg/dL Normal 0.00-1.30 [facility] Comment on above: Order Comment: 210.1 Performed By: #### L 501.5200, L500.4050, L100.0100 ####[facility] [address] [place], [address] BUN/CRE 28.9 RATIO High 10-20 [facility] Comment on above: Order Comment: 210.1 Performed By: #### L 501.5200, L500.4050, L100.0100 ####[facility] [address] [place], [address] Calcium [Mass/Vol] 8.6 mg/dL Normal 7.6-11.0 [facility] Comment on above: Order Comment: 210.1 Performed By: #### L 501.5200, L500.4050, L100.0100 ####[facility] [address] [place], [address] Chloride [Moles/Vol] 111 mmol/L High 98-108 [facility] Comment on above: Order Comment: 210.1 Performed By: #### L 501.5200, L500.4050, L100.0100 ####[facility] [address] [place], [address] CO2 [Moles/Vol] 23.1 mmol/L Normal 21.0-32.0 [facility] Comment on above: Order Comment: 210.1 Performed By: #### L 501.5200, L500.4050, L100.0100 ####[facility] [address] [place], [address] Creatinine [Mass/Vol] 1.10 mg/dL Normal 0.70-1.20 [facility] Comment on above: Order Comment: 210.1 Performed By: #### L 501.5200, L500.4050, L100.0100 ####[facility] [address] [place], [address] GAP 12 Normal 5-15 [facility] Comment on above: Order Comment: 210.1 Performed By: #### L 501.5200, L500.4050, L100.0100 ####[facility] [address] [place], [address] GFR/1.73 sq M.predicted among non-blacks MDRD (S/P/Bld) [Vol rate/Area] 65 mL/min/{1.73_m2} Normal >60 [facility] Comment on above: Order Comment: 210.1 Result Comment: mL/m in/1.73m2 CKD-EPI Creatinine Equation (2020) Performed By: #### L 501.5200, L500.4050, L100.0100 ####[facility] [address] [place], [address] Globulin (S) [Mass/Vol] 3.0 g/dL Normal 2.2-4.2 [facility] Comment on above: Order Comment: 210.1 Performed By: #### L 501.5200, L500.4050, L100.0100 ####[facility] [address] [place], [address] Glucose [Mass/Vol] 89 mg/dL Normal 70-99 [facility] Comment on above: Order Comment: 210.1 Performed By: #### L 501.5200, L500.4050, L100.0100 ####[facility] [address] [place], [address] Potassium [Moles/Vol] 3.7 mmol/L Normal 3.3-5.1 [facility] Comment on above: Order Comment: 210.1 Performed By: #### L 501.5200, L500.4050, L100.0100 ####[facility] [address] [place], [address] Sodium [Moles/Vol] 146 mmol/L High 133-145 [facility] Comment on above: Order Comment: 210.1 Performed By: #### L 501.5200, L500.4050, L100.0100 ####[facility] [address] [place], [address] T PROT 6.3 g/dL Normal 5.9-8.4 [facility] Comment on above: Order Comment: 210.1 Performed By: #### L 501.5200, L500.4050, L100.0100 ####[facility] [address] [place], [address] Urea nitrogen [Mass/Vol] 32 mg/dL High 4-19 [facility] Comment on above: Order Comment: 210.1 Performed By: #### L 501.5200, L500.4050, L100.0100 ####[facility] [address] [place], [address] Eosinophil percentageOrdered By: Arin Weston on 01-09-2025 Eosinophils/100 WBC (Bld) 2.4 % 0-5 [facility] Erythrocyte distribution wid th ratioOrdered By: Arin Weston on 01-09-2025 Erythrocyte distribution width (RBC) [Ratio] 14.6 % 11.6-14.6 [facility] Erythrocyte distribution wid th standard deviationOrdered By: Arin Weston on 01-09-2025 Erythrocyte distribution width (RBC) [Ratio] 58.7 fl High 35.1-43.9 [facility] Glomerular filtration rate ( GFR) estimation/1.73 sq m using serum, plasma, or whole bOrdered By: Arin Weston on 01-09-2025 GFR/1.73 sq M.predicted among non-blacks MDRD (S/P/Bld) [Vol rate/Area] 65 mL/min/{1.73_m2} >60 [facility] Comment on above: mL/min/1.73m2 CKD-EP I Creatinine Equation (2020) Hematocrit Auto (Bld) [Volum e fraction]Ordered By: Arin Weston on 01-09-2025 Hematocrit (Bld) [Volume fraction] 32.8 % Low 40-54 [facility] Hemoglobin measurementOrdere d By: Arin Weston on 01-09-2025 Hemoglobin (Bld) [Mass/Vol] 10.6 g/dL Low 13.0-16.5 [facility] Immature granulocytes/100 WB C Auto (Bld)Ordered By: Arin Weston on 01-09-2025 Immature granulocytes/100 WBC (Bld) 0.700 % 0.0-0.9 [facility] Comment on above: IG% - Immature Granu locytes (promyelocytes, myelocytes and metamyelocytes) > 1% indicates that a LEFT SHIFT is Present. Laboratory - Chemistry and C hemistry - challengeOrdered By: Arin Weston on 01-09-2025 AST [Catalytic activity/Vol] 17 U/L <38 [facility] MCV (mean corpuscular volume ) determinationOrdered By: Arin Weston on 01-09-2025 MCV (RBC) [Entitic vol] 109.3 fL High 80-94 [facility] Magnesiumon 01-09-2025 Magnesium [Mass/Vol] 2.6 mg/dL High 1.5-2.2 [facility] Comment on above: Order Comment: 210.1 Performed By: #### L 501.5200, L500.4050, L100.0100 ####[facility] [address] [place], [address] Magnesium measurement (mass/ volume)Ordered By: Arin Weston on 01-09-2025 Magnesium (Unsp spec) [Mass/Vol] 2.6 mg/dL High 1.5-2.2 [facility] Mean corpuscular hemoglobin (MCH) determinationOrdered By: Arin Weston on 01-09-2025 MCH (RBC) [Entitic mass] 35.3 pg High 27.0-32.0 [facility] Mean corpuscular hemoglobin concentration (MCHC) determinationOrdered By: Arin Weston on 01-09-2025 MCHC (RBC) [Mass/Vol] 32.3 g/dL 32-36 [facility] Mean platelet volume determi nationOrdered By: Arin Weston on 01-09-2025 Platelet mean volume (Bld) [Entitic vol] 9.8 fL 6.2-12.0 [facility] Monocyte percentageOrdered B y: Arin Weston on 01-09-2025 Monocytes/100 WBC (Bld) 9.2 % 0-10 [facility] Neutrophil percentageOrdered By: Arin Weston on 01-09-2025 Neutrophils/100 WBC (Bld) 48.4 % 47-70 [facility] Nucleated red blood cell per centageOrdered By: Arin Weston on 01-09-2025 Nucleated RBC/100 WBC (Bld) [Ratio] 0 % 0-5 [facility] Platelet countOrdered By: Lebron Weston on 01-09-2025 Platelets (Bld) [#/Vol] 273 10*3/uL 150-450 [facility] Potassium measurement (mass/ volume)Ordered By: Arin Weston on 01-09-2025 Potassium (Unsp spec) [Mass/Vol] 3.7 mmol/L 3.3-5.1 [facility] RBC Auto (Bld) [#/Vol]Ordere d By: Arin Weston on 01-09-2025 RBC (Bld) [#/Vol] 3.00 10*6/uL Low 4.6-6.2 [facility] Serum creatinine measurement (mass/volume)Ordered By: Arin Weston on 01-09-2025 Creatinine [Mass/Vol] 1.10 mg/dL 0.70-1.20 [facility] Serum globulin measurementOr dered By: Arin Weston on 01-09-2025 Globulin (S) [Mass/Vol] 3.0 g/dL 2.2-4.2 [facility] Serum glucose measurement (m ass/volume)Ordered By: Arin Weston on 01-09-2025 Glucose [Mass/Vol] 89 mg/dL 70-99 [facility] Serum or plasma alanine rausch otransferase (ALT) measurementOrdered By: Arin Weston on 01-09-2025 ALT [Catalytic activity/Vol] 6 U/L <47 [facility] Serum or plasma albumin patricia urement (mass/volume)Ordered By: Arin Weston on 01-09-2025 Albumin [Mass/Vol] 3.3 g/dL Low 3.4-4.8 [facility] Serum or plasma albumin/glob ulin mass ratioOrdered By: Arin Weston on 01-09-2025 Albumin/Globulin [Mass ratio] 1.1 {ratio} 0.9-2.4 [facility] Serum or plasma alkaline martín sphatase measurementOrdered By: Arin Weston on 01-09-2025 ALP [Catalytic activity/Vol] 73 U/L 40-129 [facility] Serum or plasma calcium patricia urement (mass/volume)Ordered By: Arin Weston on 01-09-2025 Calcium [Mass/Vol] 8.6 mg/dL 7.6-11.0 [facility] Serum or plasma urea nitroge n measurement (mass/volume)Ordered By: Arin Weston on 01-09-2025 Urea nitrogen [Mass/Vol] 32 mg/dL High 4-19 [facility] Sodium levelOrdered By: Chapo Weston on 01-09-2025 Sodium [Moles/Vol] 146 mmol/L High 133-145 [facility] Total proteinOrdered By: Hari Weston on 01-09-2025 Protein [Mass/Vol] 6.3 g/dL 5.9-8.4 [facility] White blood cell (WBC) count Ordered By: Arin Weston on 01-09-2025 WBC (Bld) [#/Vol] 4.1 10*3/uL Low 4.4-11.0 [facility] HIP, UNI W/ Pelvis 2-3 Views on 01-05-2025 HIP, UNI W/ Pelvis 2-3 Views Normal [facility] Orthopedic Visit Reporton Orthopedic Visit Report Normal [facility] Absolute lymphocyte countOrd ered By: Arin Weston on 01-02-2025 Lymphocytes Auto (Unsp spec) [#/Vol] 1.73 10*3/uL 0.83-4.51 [facility] Absolute neutrophil countOrd ered By: Arin Weston on 01-02-2025 Neutrophils (Bld) [#/Vol] 2.8 10*3/uL 2.0-7.7 [facility] Anion gap in Serum or Plasma Ordered By: Arin Weston on 01-02-2025 Anion gap [Moles/Vol] 11 mmol/L 5-15 [facility] Automated lymphocyte count a s percentage of total leukocytesOrdered By: Arin Ralfkailee on 01-02-2025 Lymphocytes/100 WBC Auto (Unsp spec) 32.7 % 19-41 [facility] BUN/creatinine ratioOrdered By: Arin Ralfkailee on 01-02-2025 Urea nitrogen/Creatinine [Mass ratio] 28.5 mg/mg High 10-20 [facility] Basophil percentageOrdered B y: Arin Weston on 01-02-2025 Basophils/100 WBC (Bld) 0.4 % 0-1 [facility] Bilirubin, totalOrdered By: Arin Ralfkailee on 01-02-2025 Bilirubin [Mass/Vol] 0.50 mg/dL 0.00-1.30 [facility] CBC W/Diff, Automatedon 12-22 Absolute Lymph 1.73 X10 3/uL Normal 0.83-4.51 [facility] Comment on above: Order Comment: 210 Performed By: #### L 500.4050, L501.9985, L501.5200, L501.9520, L506.1001, L500.4100, L100.0100 ####[facility] [address] [place], [address] Absolute Neut 2.8 X10 3/uL Normal 2.0-7.7 [facility] Comment on above: Order Comment: 210 Performed By: #### L 500.4050, L501.9985, L501.5200, L501.9520, L506.1001, L500.4100, L100.0100 ####[facility] [address] [place], [address] Basophils/100 WBC (Bld) 0.4 % Normal 0-1 [facility] Comment on above: Order Comment: 210 Performed By: #### L 500.4050, L501.9985, L501.5200, L501.9520, L506.1001, L500.4100, L100.0100 ####[facility] [address] [place], [address] Eosinophils/100 WBC (Bld) 3.6 % Normal 0-5 [facility] Comment on above: Order Comment: 210 Performed By: #### L 500.4050, L501.9985, L501.5200, L501.9520, L506.1001, L500.4100, L100.0100 ####[facility] [address] [place], [address] Erythrocyte distribution width (RBC) [Ratio] 14.6 % Normal 11.6-14.6 [facility] Comment on above: Order Comment: 210 Performed By: #### L 500.4050, L501.9985, L501.5200, L501.9520, L506.1001, L500.4100, L100.0100 ####[facility] [address] [place], [address] Hematocrit (Bld) [Volume fraction] 33.1 % Low 40-54 [facility] Comment on above: Order Comment: 210 Performed By: #### L 500.4050, L501.9985, L501.5200, L501.9520, L506.1001, L500.4100, L100.0100 ####[facility] [address] [place], [address] Hemoglobin (Bld) [Mass/Vol] 10.7 g/dL Low 13.0-16.5 [facility] Comment on above: Order Comment: 210 Performed By: #### L 500.4050, L501.9985, L501.5200, L501.9520, L506.1001, L500.4100, L100.0100 ####[facility] [address] [place], [address] IG% 1.100 High 0.0-0.9 [facility] Comment on above: Order Comment: 210 Result Comment: IG% - Immature Granulocytes (promyelocytes, myelocytes andmetamyelocytes) > 1% indicates that a LEFT SHIFT is Present. Performed By: #### L 500.4050, L501.9985, L501.5200, L501.9520, L506.1001, L500.4100, L100.0100 ####[facility] [address] [place], [address] Lymphocytes/100 WBC (Bld) 32.7 % Normal 19-41 [facility] Comment on above: Order Comment: 210 Performed By: #### L 500.4050, L501.9985, L501.5200, L501.9520, L506.1001, L500.4100, L100.0100 ####[facility] [address] [place], [address] MCH (RBC) [Entitic mass] 35.0 pg High 27.0-32.0 [facility] Comment on above: Order Comment: 210 Performed By: #### L 500.4050, L501.9985, L501.5200, L501.9520, L506.1001, L500.4100, L100.0100 ####[facility] [address] [place], [address] MCHC (RBC) [Mass/Vol] 32.3 g/dL Normal 32-36 [facility] Comment on above: Order Comment: 210 Performed By: #### L 500.4050, L501.9985, L501.5200, L501.9520, L506.1001, L500.4100, L100.0100 ####[facility] [address] [place], [address] MCV (RBC) [Entitic vol] 108.2 fL High 80-94 [facility] Comment on above: Order Comment: 210 Performed By: #### L 500.4050, L501.9985, L501.5200, L501.9520, L506.1001, L500.4100, L100.0100 ####[facility] [address] [place], [address] Monocytes/100 WBC (Bld) 9.5 % Normal 0-10 [facility] Comment on above: Order Comment: 210 Performed By: #### L 500.4050, L501.9985, L501.5200, L501.9520, L506.1001, L500.4100, L100.0100 ####[facility] [address] [place], [address] Neutrophils/100 WBC (Bld) 52.7 % Normal 47-70 [facility] Comment on above: Order Comment: 210 Performed By: #### L 500.4050, L501.9985, L501.5200, L501.9520, L506.1001, L500.4100, L100.0100 ####[facility] [address] [place], [address] Nucleated RBC (Bld) [#/Vol] 0 10*3/uL Normal 0-5 [facility] Comment on above: Order Comment: 210 Performed By: #### L 500.4050, L501.9985, L501.5200, L501.9520, L506.1001, L500.4100, L100.0100 ####[facility] [address] [place], [address] Platelet mean volume (Bld) [Entitic vol] 9.1 fL Normal 6.2-12.0 [facility] Comment on above: Order Comment: 210 Performed By: #### L 500.4050, L501.9985, L501.5200, L501.9520, L506.1001, L500.4100, L100.0100 ####[facility] [address] [place], [address] Platelets (Bld) [#/Vol] 378 10*3/uL Normal 150-450 [facility] Comment on above: Order Comment: 210 Performed By: #### L 500.4050, L501.9985, L501.5200, L501.9520, L506.1001, L500.4100, L100.0100 ####[facility] [address] [place], [place], [address](113) RBC (Bld) [#/Vol] 3.06 10*6/uL Low 4.6-6.2 [facility] Comment on above: Order Comment: 210 Performed By: #### L 500.4050, L501.9985, L501.5200, L501.9520, L506.1001, L500.4100, L100.0100 ####[facility] [address] [place], [address] RDW SD 57.1 fl High 35.1-43.9 [facility] Comment on above: Order Comment: 210 Performed By: #### L 500.4050, L501.9985, L501.5200, L501.9520, L506.1001, L500.4100, L100.0100 ####[facility] [address] [place], [address] WBC (Bld) [#/Vol] 5.3 10*3/uL Normal 4.4-11.0 [facility] Comment on above: Order Comment: 210 Performed By: #### L 500.4050, L501.9985, L501.5200, L501.9520, L506.1001, L500.4100, L100.0100 ####[facility] [address] [place], [address] Calculated very low density lipoprotein (VLDL) cholesterol measurementOrdered By: Arin Weston on 01-02-2025 Calculated very low density lipoprotein (VLDL) cholesterol measurement 19 mg/dL 5-40 [facility] Carbon dioxide, total [Moles /volume] in Central venous bloodOrdered By: Arin Weston on 01-02-2025 CO2 [Moles/Vol] 24.5 mmol/L 21.0-32.0 [facility] Chloride assayOrdered By: Lebron Weston on 01-02-2025 Chloride [Moles/Vol] 108 mmol/L 98-108 [facility] Comprehensive Metabolic Prof ilon 01-02-2025 Albumin [Mass/Vol] 3.2 g/dL Low 3.4-4.8 [facility] Comment on above: Order Comment: 210 Performed By: #### L 500.4050, L501.9985, L501.5200, L501.9520, L506.1001, L500.4100, L100.0100 ####[facility] [address] [place], [address] Albumin/Globulin [Mass ratio] 1.2 {ratio} Normal 0.9-2.4 [facility] Comment on above: Order Comment: 210 Performed By: #### L 500.4050, L501.9985, L501.5200, L501.9520, L506.1001, L500.4100, L100.0100 ####[facility] [address] [place], [address] ALK PHOS 64 U/L Normal 40-129 [facility] Comment on above: Order Comment: 210 Performed By: #### L 500.4050, L501.9985, L501.5200, L501.9520, L506.1001, L500.4100, L100.0100 ####[facility] [address] [place], [address] ALT [Catalytic activity/Vol] 8 U/L Normal <=46 [facility] Comment on above: Order Comment: 210 Performed By: #### L 500.4050, L501.9985, L501.5200, L501.9520, L506.1001, L500.4100, L100.0100 ####[facility] [address] [place], [address] AST [Catalytic activity/Vol] 15 U/L Normal <=37 [facility] Comment on above: Order Comment: 210 Performed By: #### L 500.4050, L501.9985, L501.5200, L501.9520, L506.1001, L500.4100, L100.0100 ####[facility] [address] [place], [address] Bilirubin [Mass/Vol] 0.50 mg/dL Normal 0.00-1.30 [facility] Comment on above: Order Comment: 210 Performed By: #### L 500.4050, L501.9985, L501.5200, L501.9520, L506.1001, L500.4100, L100.0100 ####[facility] [address] [place], [address] BUN/CRE 28.5 RATIO High 10-20 [facility] Comment on above: Order Comment: 210 Performed By: #### L 500.4050, L501.9985, L501.5200, L501.9520, L506.1001, L500.4100, L100.0100 ####[facility] [address] [place], [address] Calcium [Mass/Vol] 8.9 mg/dL Normal 7.6-11.0 [facility] Comment on above: Order Comment: 210 Performed By: #### L 500.4050, L501.9985, L501.5200, L501.9520, L506.1001, L500.4100, L100.0100 ####[facility] [address] [place], [address] Chloride [Moles/Vol] 108 mmol/L Normal 98-108 [facility] Comment on above: Order Comment: 210 Performed By: #### L 500.4050, L501.9985, L501.5200, L501.9520, L506.1001, L500.4100, L100.0100 ####[facility] [address] [place], [place], [id number] CO2 [Moles/Vol] 24.5 mmol/L Normal 21.0-32.0 [facility] Comment on above: Order Comment: 210 Performed By: #### L 500.4050, L501.9985, L501.5200, L501.9520, L506.1001, L500.4100, L100.0100 ####[facility] [address] [place], [place], [id number] Creatinine [Mass/Vol] 1.06 mg/dL Normal 0.70-1.20 [facility] Comment on above: Order Comment: 210 Performed By: #### L 500.4050, L501.9985, L501.5200, L501.9520, L506.1001, L500.4100, L100.0100 ####[facility] [address] [place], [place], [id number] GAP 11 Normal 5-15 [facility] Comment on above: Order Comment: 210 Performed By: #### L 500.4050, L501.9985, L501.5200, L501.9520, L506.1001, L500.4100, L100.0100 ####[facility] [address] [place], [address] GFR/1.73 sq M.predicted among non-blacks MDRD (S/P/Bld) [Vol rate/Area] 68 mL/min/{1.73_m2} Normal >60 [facility] Comment on above: Order Comment: 210 Result Comment: mL/m in/1.73m2 CKD-EPI Creatinine Equation (2020) Performed By: #### L 500.4050, L501.9985, L501.5200, L501.9520, L506.1001, L500.4100, L100.0100 ####[facility] [address] [place], [address] Globulin (S) [Mass/Vol] 2.7 g/dL Normal 2.2-4.2 [facility] Comment on above: Order Comment: 210 Performed By: #### L 500.4050, L501.9985, L501.5200, L501.9520, L506.1001, L500.4100, L100.0100 ####[facility] [address] [place], [address] Glucose [Mass/Vol] 91 mg/dL Normal 70-99 [facility] Comment on above: Order Comment: 210 Performed By: #### L 500.4050, L501.9985, L501.5200, L501.9520, L506.1001, L500.4100, L100.0100 ####[facility] [address] [place], [address] Potassium [Moles/Vol] 3.8 mmol/L Normal 3.3-5.1 [facility] Comment on above: Order Comment: 210 Performed By: #### L 500.4050, L501.9985, L501.5200, L501.9520, L506.1001, L500.4100, L100.0100 ####[facility] [address] [place], [address] Sodium [Moles/Vol] 144 mmol/L Normal 133-145 [facility] Comment on above: Order Comment: 210 Performed By: #### L 500.4050, L501.9985, L501.5200, L501.9520, L506.1001, L500.4100, L100.0100 ####[facility] [address] [place], [address] T PROT 5.9 g/dL Normal 5.9-8.4 [facility] [facility] Comment on above: Order Comment: 210 Performed By: #### L 500.4050, L501.9985, L501.5200, L501.9520, L506.1001, L500.4100, L100.0100 ####[facility] [address] [place], [place], [address](762) Urea nitrogen [Mass/Vol] 30 mg/dL High 4-19 [facility] Comment on above: Order Comment: 210 Performed By: #### L 500.4050, L501.9985, L501.5200, L501.9520, L506.1001, L500.4100, L100.0100 ####[facility] [address] [place], [place], [id number] Eosinophil percentageOrdered By: Arin Weston on 01-02-2025 Eosinophils/100 WBC (Bld) 3.6 % 0-5 [facility] Erythrocyte distribution wid th ratioOrdered By: Arin Weston on 01-02-2025 Erythrocyte distribution width (RBC) [Ratio] 14.6 % 11.6-14.6 [facility] Erythrocyte distribution wid th standard deviationOrdered By: Arin Weston on 01-02-2025 Erythrocyte distribution width (RBC) [Ratio] 57.1 fl High 35.1-43.9 [facility] Glomerular filtration rate ( GFR) estimation/1.73 sq m using serum, plasma, or whole bOrdered By: Arin Weston on 01-02-2025 GFR/1.73 sq M.predicted among non-blacks MDRD (S/P/Bld) [Vol rate/Area] 68 mL/min/{1.73_m2} >60 [facility] Comment on above: mL/min/1.73m2 CKD-EP I Creatinine Equation (2020) Hematocrit Auto (Bld) [Volum e fraction]Ordered By: Arin Weston on 01-02-2025 Hematocrit (Bld) [Volume fraction] 33.1 % Low 40-54 [facility] Hemoglobin A1con 01-02-2025 HbA1c (Bld) [Mass fraction] 5.5 % Normal <=5.6 [facility] Comment on above: Order Comment: 210 Result Comment: Norm al < 5.7 % Prediabetic 5.7 - 6.4 % Diabetic >or= 6.5 % Please note range changes. Performed By: #### L 500.4050, L501.9985, L501.5200, L501.9520, L506.1001, L500.4100, L100.0100 ####[facility] [address] [place], [address] Hemoglobin A1c percentageOrd ered By: Arin Weston on 01-02-2025 HbA1c (Bld) [Mass fraction] 5.5 % <5.7 [facility] Comment on above: Normal < 5.7 % Predi abetic 5.7 - 6.4 % Diabetic >or= 6.5 % Please note range changes. Hemoglobin measurementOrdere d By: Arin Weston on 01-02-2025 Hemoglobin (Bld) [Mass/Vol] 10.7 g/dL Low 13.0-16.5 [facility] Immature granulocytes/100 WB C Auto (Bld)Ordered By: Arin Weston on 01-02-2025 Immature granulocytes/100 WBC (Bld) 1.100 % High 0.0-0.9 [facility] Comment on above: IG% - Immature Granu locytes (promyelocytes, myelocytes and metamyelocytes) > 1% indicates that a LEFT SHIFT is Present. LDL calc ser/plasOrdered By: Arin Weston on 01-02-2025 Cholesterol in LDL [Mass/Vol] 52 mg/dL [facility] Comment on above: Nbilzdwiub=576-980 m g/dL & Higher Hnih=204 mg/dL or greaterFriedwald Equation for LDL-C Laboratory - Chemistry and C hemistry - challengeOrdered By: Arin Weston on 01-02-2025 AST [Catalytic activity/Vol] 15 U/L <38 [facility] Lipid Profileon 01-02-2025 CHOL:HDL 2.39 Normal [facility] Comment on above: Order Comment: 210 Performed By: #### L 500.4050, L501.9985, L501.5200, L501.9520, L506.1001, L500.4100, L100.0100 ####[facility] [address] [place], [address] Cholesterol [Mass/Vol] 121 mg/dL Normal <=200 [facility] Comment on above: Order Comment: 210 Result Comment: Chol esterol level, Desirable <200 mg/dLBorderline high cholesterol 200-239 mg/dLHigh cholesterol >=240 mg/dLRecommendations of the NCEP Adult Treatment Panel for thefollowing risk-cutoff thresholds for the [place] Americanpulation. Performed By: #### L 500.4050, L501.9985, L501.5200, L501.9520, L506.1001, L500.4100, L100.0100 ####[facility] [address] [place], [address] Cholesterol in HDL [Mass/Vol] 51 mg/dL Normal [facility] Comment on above: Order Comment: 210 Result Comment: Kelly onal Cholesterol Education Program (NCEP) guidelines:<40 mg/dL: Low HDL-cholesterol (major risk factor for CHD)>= 60 mg/dL: High HDL-cholesterol (negative risk factor forCHD)HDL-cholesterol is affected by a number of factors, e.g.smoking, exercise, hormones, sex and age. Performed By: #### L 500.4050, L501.9985, L501.5200, L501.9520, L506.1001, L500.4100, L100.0100 ####[facility] [address] [place], [address] Cholesterol in LDL [Mass/Vol] 52 mg/dL Normal [facility] Comment on above: Order Comment: 210 Result Comment: Bord ncvyqy=370-960 mg/dL Higher Zqwa=170 mg/dL or greaterFriedwald Equation for LDL-C Performed By: #### L 500.4050, L501.9985, L501.5200, L501.9520, L506.1001, L500.4100, L100.0100 ####[facility] [address] [place], [address] Cholesterol in VLDL [Mass/Vol] 19 mg/dL Normal 5-40 [facility] Comment on above: Order Comment: 210 Performed By: #### L 500.4050, L501.9985, L501.5200, L501.9520, L506.1001, L500.4100, L100.0100 ####[facility] [address] [place], [address] Triglyceride [Mass/Vol] 93 mg/dL Normal [facility] Comment on above: Order Comment: 210 Result Comment: The drugs N-Acetylcysteine and Metamizole may falselydepress this assay.Normal range: <150 mg/dLBorderline High: 150-199 mg/dLHigh: 200-499 mg/dLVery High: >500 mg/dL Performed By: #### L 500.4050, L501.9985, L501.5200, L501.9520, L506.1001, L500.4100, L100.0100 ####[facility] [address] [place], [address] MCV (mean corpuscular volume ) determinationOrdered By: Arin Weston on 01-02-2025 MCV (RBC) [Entitic vol] 108.2 fL High 80-94 [facility] Magnesiumon 01-02-2025 Magnesium [Mass/Vol] 2.5 mg/dL High 1.5-2.2 [facility] Comment on above: Order Comment: 210 Performed By: #### L 500.4050, L501.9985, L501.5200, L501.9520, L506.1001, L500.4100, L100.0100 ####[facility] [address] [place], [address] Magnesium measurement (mass/ volume)Ordered By: Arin Weston on 01-02-2025 Magnesium (Unsp spec) [Mass/Vol] 2.5 mg/dL High 1.5-2.2 [facility] Mean corpuscular hemoglobin (MCH) determinationOrdered By: Arin Weston on 01-02-2025 MCH (RBC) [Entitic mass] 35.0 pg High 27.0-32.0 [facility] Mean corpuscular hemoglobin concentration (MCHC) determinationOrdered By: Arin Weston on 01-02-2025 MCHC (RBC) [Mass/Vol] 32.3 g/dL 32-36 [facility] Mean platelet volume determi nationOrdered By: Arin Weston on 01-02-2025 Platelet mean volume (Bld) [Entitic vol] 9.1 fL 6.2-12.0 [facility] Monocyte percentageOrdered B y: Arin Weston on 01-02-2025 Monocytes/100 WBC (Bld) 9.5 % 0-10 [facility] Neutrophil percentageOrdered By: Arin Weston on 01-02-2025 Neutrophils/100 WBC (Bld) 52.7 % 47-70 [facility] Nucleated red blood cell per centageOrdered By: Arin Weston on 01-02-2025 Nucleated RBC/100 WBC (Bld) [Ratio] 0 % 0-5 [facility] Platelet countOrdered By: Lebron Weston on 01-02-2025 Platelets (Bld) [#/Vol] 378 10*3/uL 150-450 [facility] Potassium measurement (mass/ volume)Ordered By: Arin Weston on 01-02-2025 Potassium (Unsp spec) [Mass/Vol] 3.8 mmol/L 3.3-5.1 [facility] RBC Auto (Bld) [#/Vol]Ordere d By: Arin Weston on 01-02-2025 RBC (Bld) [#/Vol] 3.06 10*6/uL Low 4.6-6.2 [facility] Screening total cholesterol/ high density lipoprotein (HDL) cholesterol ratioOrdered By: Arin Weston on 01-02-2025 Cholesterol.total/Choles terol in HDL [Mass ratio] 2.39 {ratio} [facility] Serum creatinine measurement (mass/volume)Ordered By: Arin Weston on 01-02-2025 Creatinine [Mass/Vol] 1.06 mg/dL 0.70-1.20 [facility] Serum globulin measurementOr dered By: Arin Weston on 01-02-2025 Globulin (S) [Mass/Vol] 2.7 g/dL 2.2-4.2 [facility] Serum glucose measurement (m ass/volume)Ordered By: Arin Weston on 01-02-2025 Glucose [Mass/Vol] 91 mg/dL 70-99 [facility] Serum or plasma alanine rausch otransferase (ALT) measurementOrdered By: Arin Weston on 01-02-2025 ALT [Catalytic activity/Vol] 8 U/L <47 [facility] Serum or plasma albumin patricia urement (mass/volume)Ordered By: Arin Weston on 01-02-2025 Albumin [Mass/Vol] 3.2 g/dL Low 3.4-4.8 [facility] Serum or plasma albumin/glob ulin mass ratioOrdered By: Arin Weston on 01-02-2025 Albumin/Globulin [Mass ratio] 1.2 {ratio} 0.9-2.4 [facility] Serum or plasma alkaline martín sphatase measurementOrdered By: Arin Weston on 01-02-2025 ALP [Catalytic activity/Vol] 64 U/L 40-129 [facility] Serum or plasma calcium patricia urement (mass/volume)Ordered By: Arin Weston on 01-02-2025 Calcium [Mass/Vol] 8.9 mg/dL 7.6-11.0 [facility] Serum or plasma cholesterol in HDL measurement (mass/volume)Ordered By: Arin Weston on 01-02-2025 Cholesterol in HDL [Mass/Vol] 51 mg/dL >40 [facility] Comment on above: National Cholesterol Education Program (NCEP) guidelines:<40 mg/dL: Low HDL-cholesterol (major risk factor for CHD)>= 60 mg/dL: High HDL-cholesterol (negative risk factor for CHD)HDL-cholesterol is affected by a number of factors, e.g. smoking, exercise, hormones, sex and age. Serum or plasma cholesterol measurement (mass/volume)Ordered By: Arin Weston on 01-02-2025 Cholesterol [Mass/Vol] 121 mg/dL <201 [facility] Comment on above: Cholesterol level, D esirable <200 mg/dLBorderline high cholesterol 200-239 mg/dLHigh cholesterol >=240 mg/dLRecommendations of the NCEP Adult Treatment Panel for the following risk-cutoff thresholds for the [place] population. Serum or plasma urea nitroge n measurement (mass/volume)Ordered By: Arin Weston on 01-02-2025 Urea nitrogen [Mass/Vol] 30 mg/dL High 4-19 [facility] Sodium levelOrdered By: Chapo Weston on 01-02-2025 Sodium [Moles/Vol] 144 mmol/L 133-145 [facility] TSH DL <= 0.005 mIU/L QnOrde red By: Arin Weston on 01-02-2025 TSH Qn 1.620 uIU/mL 0.300-4.200 [facility] Thyroid Stim Hormone (TSH)on 01-02-2025 TSH 1.620 uIU/mL Normal 0.300-4.200 [facility] Comment on above: Order Comment: 210 Performed By: #### L 500.4050, L501.9985, L501.5200, L501.9520, L506.1001, L500.4100, L100.0100 ####[facility] [address] [place], [address] Total proteinOrdered By: Hari Weston on 01-02-2025 Protein [Mass/Vol] 5.9 g/dL 5.9-8.4 [facility] Triglycerides measurementOrd ered By: Arin Weston on 01-02-2025 Triglyceride [Mass/Vol] 93 mg/dL <199 [facility] Comment on above: The drugs N-Acetylcy steine and Metamizole may falsely depress this assay. Normal range: <150 mg/dLBorderline High: 150-199 mg/dLHigh: 200-499 mg/dLVery High: >500 mg/dL Vitamin D,25 Hydroxyon 01-02 Vitamin D 25-OH 14.1 ng/mL Low 30-100 [facility] Comment on above: Order Comment: 210 Result Comment: Marita min D StatusDeficiency: <20 ng/mL (50nmol/L)Insufficiency: 20-30 ng/mL (50-75 nmol/L)Sufficiency: 30-100 ng/mL (75-250 nmol/L)Toxicity: >100 ng/mL (>250 nmol/L) Performed By: #### L 500.4050, L501.9985, L501.5200, L501.9520, L506.1001, L500.4100, L100.0100 ####[facility] [address] [place], [address] White blood cell (WBC) count Ordered By: Arin Weston on 01-02-2025 WBC (Bld) [#/Vol] 5.3 10*3/uL 4.4-11.0 [facility] Absolute lymphocyte countOrd ered By: Arin Weston on 12-26-2024 Lymphocytes Auto (Unsp spec) [#/Vol] 2.08 10*3/uL 0.83-4.51 [facility] Absolute neutrophil countOrd ered By: Arin Weston on 12-26-2024 Neutrophils (Bld) [#/Vol] 2.6 10*3/uL 2.0-7.7 [facility] Anion gap in Serum or Plasma Ordered By: Arin Weston on 12-26-2024 Anion gap [Moles/Vol] 10 mmol/L 5-15 [facility] Automated lymphocyte count a s percentage of total leukocytesOrdered By: Arin Weston on 12-26-2024 Lymphocytes/100 WBC Auto (Unsp spec) 38.0 % - [facility] BUN/creatinine ratioOrdered By: Arin Weston on 12-26-2024 Urea nitrogen/Creatinine [Mass ratio] 26.8 mg/mg High 10-20 [facility] Basic Metabolic Profile (BMP )on 12-26-2024 BUN/CRE 26.8 RATIO High 10-20 [facility] Comment on above: Order Comment: 210 Performed By: #### L 100.0100, L500.2500 ####[facility] [address] [place], [address] Calcium [Mass/Vol] 8.4 mg/dL Normal 7.6-11.0 [facility] Comment on above: Order Comment: 210 Performed By: #### L 100.0100, L500.2500 ####[facility] [address] [place], [address] Chloride [Moles/Vol] 110 mmol/L High 98-108 [facility] Comment on above: Order Comment: 210 Performed By: #### L 100.0100, L500.2500 ####[facility] [address] [place], [address] CO2 [Moles/Vol] 24.6 mmol/L Normal 21.0-32.0 [facility] Comment on above: Order Comment: 210 Performed By: #### L 100.0100, L500.2500 ####[facility] [address] [place], [address] Creatinine [Mass/Vol] 0.94 mg/dL Normal 0.70-1.20 [facility] Comment on above: Order Comment: 210 Performed By: #### L 100.0100, L500.2500 ####[facility] [address] [place], [address] GAP 10 Normal 5-15 [facility] Comment on above: Order Comment: 210 Performed By: #### L 100.0100, L500.2500 ####[facility] [address] [place], [address] GFR/1.73 sq M.predicted among non-blacks MDRD (S/P/Bld) [Vol rate/Area] 78 mL/min/{1.73_m2} Normal >60 [facility] Comment on above: Order Comment: 210 Result Comment: mL/m in/1.73m2 CKD-EPI Creatinine Equation (2020) Performed By: #### L 100.0100, L500.2500 ####[facility] [address] [place], [address] Glucose [Mass/Vol] 103 mg/dL High 70-99 [facility] Comment on above: Order Comment: 210 Performed By: #### L 100.0100, L500.2500 ####[facility] [address] [place], [address] Potassium [Moles/Vol] 4.1 mmol/L Normal 3.3-5.1 [facility] Comment on above: Order Comment: 210 Performed By: #### L 100.0100, L500.2500 ####[facility] [address] [place], [address] Sodium [Moles/Vol] 144 mmol/L Normal 133-145 [facility] Comment on above: Order Comment: 210 Performed By: #### L 100.0100, L500.2500 ####[facility] [address] [place], [address] Urea nitrogen [Mass/Vol] 25 mg/dL High 4-19 [facility] Comment on above: Order Comment: 210 Performed By: #### L 100.0100, L500.2500 ####[facility] [address] [place], [address] Basophil percentageOrdered B y: Arin Weston on 12-26-2024 Basophils/100 WBC (Bld) 0.4 % 0-1 [facility] CBC W/Diff, Automatedon Absolute Lymph 2.08 X10 3/uL Normal 0.83-4.51 [facility] Comment on above: Order Comment: 210 Performed By: #### L 100.0100, L500.2500 ####[facility] [address] [place], [address] Absolute Neut 2.6 X10 3/uL Normal 2.0-7.7 [facility] Comment on above: Order Comment: 210 Performed By: #### L 100.0100, L500.2500 ####[facility] [address] [place], [address] Basophils/100 WBC (Bld) 0.4 % Normal 0-1 [facility] Comment on above: Order Comment: 210 Performed By: #### L 100.0100, L500.2500 ####[facility] [address] [place], [address] Eosinophils/100 WBC (Bld) 2.7 % Normal 0-5 [facility] Comment on above: Order Comment: 210 Performed By: #### L 100.0100, L500.2500 ####[facility] [address] [place], [address] Erythrocyte distribution width (RBC) [Ratio] 13.5 % Normal 11.6-14.6 [facility] Comment on above: Order Comment: 210 Performed By: #### L 100.0100, L500.2500 ####[facility] [address] [place], [address] Hematocrit (Bld) [Volume fraction] 29.9 % Low 40-54 [facility] Comment on above: Order Comment: 210 Performed By: #### L 100.0100, L500.2500 ####[facility] [address] [place], [address] Hemoglobin (Bld) [Mass/Vol] 9.8 g/dL Low 13.0-16.5 [facility] Comment on above: Order Comment: 210 Performed By: #### L 100.0100, L500.2500 ####[facility] [address] [place], [address] IG% 2.000 High 0.0-0.9 [facility] Comment on above: Order Comment: 210 Result Comment: IG% - Immature Granulocytes (promyelocytes, myelocytes andmetamyelocytes) > 1% indicates that a LEFT SHIFT is Present. Performed By: #### L 100.0100, L500.2500 ####[facility] [address] [place], [address] Lymphocytes/100 WBC (Bld) 38.0 % Normal 19-41 [facility] Comment on above: Order Comment: 210 Performed By: #### L 100.0100, L500.2500 ####[facility] [address] [place], [address] MCH (RBC) [Entitic mass] 34.5 pg High 27.0-32.0 [facility] Comment on above: Order Comment: 210 Performed By: #### L 100.0100, L500.2500 ####[facility] [address] [place], [address] MCHC (RBC) [Mass/Vol] 32.8 g/dL Normal 32-36 [facility] Comment on above: Order Comment: 210 Performed By: #### L 100.0100, L500.2500 ####[facility] [address] [place], [address] MCV (RBC) [Entitic vol] 105.3 fL High 80-94 [facility] Comment on above: Order Comment: 210 Performed By: #### L 100.0100, L500.2500 ####[facility] [address] [place], [address] Monocytes/100 WBC (Bld) 9.3 % Normal 0-10 [facility] Comment on above: Order Comment: 210 Performed By: #### L 100.0100, L500.2500 ####[facility] [address] [place], [address] Neutrophils/100 WBC (Bld) 47.6 % Normal 47-70 [facility] Comment on above: Order Comment: 210 Performed By: #### L 100.0100, L500.2500 ####[facility] [address] [place], [address] Nucleated RBC (Bld) [#/Vol] 0 10*3/uL Normal 0-5 [facility] Comment on above: Order Comment: 210 Performed By: #### L 100.0100, L500.2500 ####[facility] [address] [place], [address] Platelet mean volume (Bld) [Entitic vol] 9.7 fL Normal 6.2-12.0 [facility] Comment on above: Order Comment: 210 Performed By: #### L 100.0100, L500.2500 ####[facility] [address] [place], [address] Platelets (Bld) [#/Vol] 250 10*3/uL Normal 150-450 [facility] Comment on above: Order Comment: 210 Performed By: #### L 100.0100, L500.2500 ####[facility] [address] [place], [address] RBC (Bld) [#/Vol] 2.84 10*6/uL Low 4.6-6.2 [facility] Comment on above: Order Comment: 210 Performed By: #### L 100.0100, L500.2500 ####[facility] [address] [place], [address] RDW SD 52.7 fl High 35.1-43.9 [facility] Comment on above: Order Comment: 210 Performed By: #### L 100.0100, L500.2500 ####[facility] [address] [place], [address] WBC (Bld) [#/Vol] 5.5 10*3/uL Normal 4.4-11.0 [facility] Comment on above: Order Comment: 210 Performed By: #### L 100.0100, L500.2500 ####[facility] [address] [place], [address] Carbon dioxide, total [Moles /volume] in Central venous bloodOrdered By: Arin Weston on 12-26-2024 CO2 [Moles/Vol] 24.6 mmol/L 21.0-32.0 [facility] Chloride assayOrdered By: Lebron Weston on 12-26-2024 Chloride [Moles/Vol] 110 mmol/L High 98-108 [facility] Eosinophil percentageOrdered By: Arin Weston on 12-26-2024 Eosinophils/100 WBC (Bld) 2.7 % 0-5 [facility] Erythrocyte distribution wid th ratioOrdered By: Arin Weston on 12-26-2024 Erythrocyte distribution width (RBC) [Ratio] 13.5 % 11.6-14.6 [facility] Erythrocyte distribution wid th standard deviationOrdered By: Arin Weston on 12-26-2024 Erythrocyte distribution width (RBC) [Ratio] 52.7 fl High 35.1-43.9 [facility] Glomerular filtration rate ( GFR) estimation/1.73 sq m using serum, plasma, or whole bOrdered By: Arin Weston on 12-26-2024 GFR/1.73 sq M.predicted among non-blacks MDRD (S/P/Bld) [Vol rate/Area] 78 mL/min/{1.73_m2} >60 [facility] Comment on above: mL/min/1.73m2 CKD-EP I Creatinine Equation (2020) Hematocrit Auto (Bld) [Volum e fraction]Ordered By: Arin Weston on 12-26-2024 Hematocrit (Bld) [Volume fraction] 29.9 % Low 40-54 [facility] Hemoglobin measurementOrdere d By: Arin Weston on 12-26-2024 Hemoglobin (Bld) [Mass/Vol] 9.8 g/dL Low 13.0-16.5 [facility] Immature granulocytes/100 WB C Auto (Bld)Ordered By: Arin Weston on 12-26-2024 Immature granulocytes/100 WBC (Bld) 2.000 % High 0.0-0.9 [facility] Comment on above: IG% - Immature Granu locytes (promyelocytes, myelocytes and metamyelocytes) > 1% indicates that a LEFT SHIFT is Present. MCV (mean corpuscular volume ) determinationOrdered By: Arin Weston on 12-26-2024 MCV (RBC) [Entitic vol] 105.3 fL High 80-94 [facility] Mean corpuscular hemoglobin (MCH) determinationOrdered By: Arin Weston on 12-26-2024 MCH (RBC) [Entitic mass] 34.5 pg High 27.0-32.0 [facility] Mean corpuscular hemoglobin concentration (MCHC) determinationOrdered By: Arin Weston on 12-26-2024 MCHC (RBC) [Mass/Vol] 32.8 g/dL 32-36 [facility] Mean platelet volume determi nationOrdered By: Arin Weston on 12-26-2024 Platelet mean volume (Bld) [Entitic vol] 9.7 fL 6.2-12.0 [facility] Monocyte percentageOrdered B y: Arin Weston on 12-26-2024 Monocytes/100 WBC (Bld) 9.3 % 0-10 [facility] Neutrophil percentageOrdered By: Arin Weston on 12-26-2024 Neutrophils/100 WBC (Bld) 47.6 % 47-70 [facility] Nucleated red blood cell per centageOrdered By: Arin Weston on 12-26-2024 Nucleated RBC/100 WBC (Bld) [Ratio] 0 % 0-5 [facility] Platelet countOrdered By: Lebron Weston on 12-26-2024 Platelets (Bld) [#/Vol] 250 10*3/uL 150-450 [facility] Potassium measurement (mass/ volume)Ordered By: Arin Weston on 12-26-2024 Potassium (Unsp spec) [Mass/Vol] 4.1 mmol/L 3.3-5.1 [facility] RBC Auto (Bld) [#/Vol]Ordere d By: Arin Weston on 12-26-2024 RBC (Bld) [#/Vol] 2.84 10*6/uL Low 4.6-6.2 [facility] Serum creatinine measurement (mass/volume)Ordered By: Arin Weston on 12-26-2024 Creatinine [Mass/Vol] 0.94 mg/dL 0.70-1.20 [facility] Serum glucose measurement (m ass/volume)Ordered By: Arin Weston on 12-26-2024 Glucose [Mass/Vol] 103 mg/dL High 70-99 [facility] Serum or plasma calcium patricia urement (mass/volume)Ordered By: Arin Weston on 12-26-2024 Calcium [Mass/Vol] 8.4 mg/dL 7.6-11.0 [facility] Serum or plasma urea nitroge n measurement (mass/volume)Ordered By: Arin Weston on 12-26-2024 Urea nitrogen [Mass/Vol] 25 mg/dL High 4-19 [facility] Sodium levelOrdered By: Chapo Weston on 12-26-2024 Sodium [Moles/Vol] 144 mmol/L 133-145 [facility] White blood cell (WBC) count Ordered By: Arin Weston on 12-26-2024 WBC (Bld) [#/Vol] 5.5 10*3/uL 4.4-11.0 [facility] Anion gap in Serum or Plasma Ordered By: Radha Cope on 12-24-2024 Anion gap [Moles/Vol] 10 mmol/L 5-15 [facility] BUN/creatinine ratioOrdered By: Radha Cope on 12-24-2024 Urea nitrogen/Creatinine [Mass ratio] 38.0 mg/mg High 10- [facility] Basic Metabolic Profile (BMP )on 12-24-2024 BUN/CRE 38.0 RATIO High - [facility] Comment on above: Performed By: #### L 100.0500, L500.2500 ####[facility] [address] [place], [address] Calcium [Mass/Vol] 8.1 mg/dL Normal 7.6-11.0 [facility] Comment on above: Performed By: #### L 100.0500, L500.2500 ####[facility] [address] [place], [address] Chloride [Moles/Vol] 113 mmol/L High 98-108 [facility] Comment on above: Performed By: #### L 100.0500, L500.2500 ####[facility] [address] [place], [address] CO2 [Moles/Vol] 21.8 mmol/L Normal 21.0-32.0 [facility] Comment on above: Performed By: #### L 100.0500, L500.2500 ####[facility] [address] [place], [address] Creatinine [Mass/Vol] 0.97 mg/dL Normal 0.70-1.20 [facility] Comment on above: Performed By: #### L 100.0500, L500.2500 ####[facility] [address] [place], [address] ECRCL 55.40 ml/min Normal 50-250 [facility] Comment on above: Performed By: #### L 100.0500, L500.2500 ####[facility] [address] [place], [address] GAP 10 Normal 5-15 [facility] Comment on above: Performed By: #### L 100.0500, L500.2500 ####[facility] [address] [place], [address] GFR/1.73 sq M.predicted among non-blacks MDRD (S/P/Bld) [Vol rate/Area] 76 mL/min/{1.73_m2} Normal >60 [facility] Comment on above: Result Comment: mL/m in/1.73m2 CKD-EPI Creatinine Equation (2020) Performed By: #### L 100.0500, L500.2500 ####[facility] [address] [place], [address] Glucose [Mass/Vol] 98 mg/dL Normal 70-99 [facility] Comment on above: Performed By: #### L 100.0500, L500.2500 ####[facility] [address] [place], [address] Potassium [Moles/Vol] 3.9 mmol/L Normal 3.3-5.1 [facility] Comment on above: Performed By: #### L 100.0500, L500.2500 ####[facility] [address] [place], [address] Sodium [Moles/Vol] 144 mmol/L Normal 133-145 [facility] Comment on above: Performed By: #### L 100.0500, L500.2500 ####[facility] [address] [place], [address] Urea nitrogen [Mass/Vol] 37 mg/dL High 4-19 [facility] Comment on above: Performed By: #### L 100.0500, L500.2500 ####[facility] [address] [place], [address] CBC-Complete Blood Cnt No Di ffon 12-24-2024 Erythrocyte distribution width (RBC) [Ratio] 13.2 % Normal 11.6-14.6 [facility] Comment on above: Performed By: #### L 100.0500, L500.2500 ####[facility] [address] [place], [address] Hematocrit (Bld) [Volume fraction] 28.0 % Low 40-54 [facility] Comment on above: Performed By: #### L 100.0500, L500.2500 ####[facility] [address] [place], [address] Hemoglobin (Bld) [Mass/Vol] 9.4 g/dL Low 13.0-16.5 [facility] Comment on above: Performed By: #### L 100.0500, L500.2500 ####[facility] [address] [place], [address] MCH (RBC) [Entitic mass] 34.7 pg High 27.0-32.0 [facility] Comment on above: Performed By: #### L 100.0500, L500.2500 ####[facility] [address] [place], [address] MCHC (RBC) [Mass/Vol] 33.6 g/dL Normal 32-36 [facility] Comment on above: Performed By: #### L 100.0500, L500.2500 ####[facility] [address] [place], [address] MCV (RBC) [Entitic vol] 103.3 fL High 80-94 [facility] Comment on above: Performed By: #### L 100.0500, L500.2500 ####[facility] [address] [place], [address] Platelet mean volume (Bld) [Entitic vol] 9.6 fL Normal 6.2-12.0 [facility] Comment on above: Performed By: #### L 100.0500, L500.2500 ####[facility] [address] [place], [address] Platelets (Bld) [#/Vol] 187 10*3/uL Normal 150-450 [facility] Comment on above: Performed By: #### L 100.0500, L500.2500 ####[facility] [address] [place], [address] RBC (Bld) [#/Vol] 2.71 10*6/uL Low 4.6-6.2 [facility] Comment on above: Performed By: #### L 100.0500, L500.2500 ####[facility] [address] [place], [address] RDW SD 50.4 fl High 35.1-43.9 [facility] Comment on above: Performed By: #### L 100.0500, L500.2500 ####[facility] [address] [place], [address] WBC (Bld) [#/Vol] 5.4 10*3/uL Normal 4.4-11.0 [facility] Comment on above: Performed By: #### L 100.0500, L500.2500 ####[facility] [address] [place], [address] Carbon dioxide, total [Moles /volume] in Central venous bloodOrdered By: Radha Cope on 12-24-2024 CO2 [Moles/Vol] 21.8 mmol/L 21.0-32.0 [facility] Chloride assayOrdered By: Heather Cope on 12-24-2024 Chloride [Moles/Vol] 113 mmol/L High 98-108 [facility] Erythrocyte distribution wid th ratioOrdered By: Radha Cope on 12-24-2024 Erythrocyte distribution width (RBC) [Ratio] 13.2 % 11.6-14.6 [facility] Erythrocyte distribution wid th standard deviationOrdered By: Radha Cope on 12-24-2024 Erythrocyte distribution width (RBC) [Ratio] 50.4 fl High 35.1-43.9 [facility] Glomerular filtration rate ( GFR) estimation/1.73 sq m using serum, plasma, or whole bOrdered By: Radha Cope on 12-24-2024 GFR/1.73 sq M.predicted among non-blacks MDRD (S/P/Bld) [Vol rate/Area] 76 mL/min/{1.73_m2} >60 [facility] Comment on above: mL/min/1.73m2 CKD-EP I Creatinine Equation (2020) Hematocrit Auto (Bld) [Volum e fraction]Ordered By: Radha Cope on 12-24-2024 Hematocrit (Bld) [Volume fraction] 28.0 % Low 40-54 [facility] Hemoglobin measurementOrdere d By: Radha Cope on 12-24-2024 Hemoglobin (Bld) [Mass/Vol] 9.4 g/dL Low 13.0-16.5 [facility] MCV (mean corpuscular volume ) determinationOrdered By: Radha Cope on 12-24-2024 MCV (RBC) [Entitic vol] 103.3 fL High 80-94 [facility] Mean corpuscular hemoglobin (MCH) determinationOrdered By: Radha Cope on 12-24-2024 MCH (RBC) [Entitic mass] 34.7 pg High 27.0-32.0 [facility] Mean corpuscular hemoglobin concentration (MCHC) determinationOrdered By: Radha Cope on 12-24-2024 MCHC (RBC) [Mass/Vol] 33.6 g/dL 32-36 [facility] Mean platelet volume determi nationOrdered By: Radha Cope on 12-24-2024 Platelet mean volume (Bld) [Entitic vol] 9.6 fL 6.2-12.0 [facility] Platelet countOrdered By: Heather Cope on 12-24-2024 Platelets (Bld) [#/Vol] 187 10*3/uL 150-450 [facility] Potassium measurement (mass/ volume)Ordered By: Radha Cope on 12-24-2024 Potassium (Unsp spec) [Mass/Vol] 3.9 mmol/L 3.3-5.1 [facility] RBC Auto (Bld) [#/Vol]Ordere d By: Radha Cope on 12-24-2024 RBC (Bld) [#/Vol] 2.71 10*6/uL Low 4.6-6.2 [facility] Serum creatinine measurement (mass/volume)Ordered By: Radha Cope on 12-24-2024 Creatinine [Mass/Vol] 0.97 mg/dL 0.70-1.20 [facility] Serum glucose measurement (m ass/volume)Ordered By: Radha Cope on 12-24-2024 Glucose [Mass/Vol] 98 mg/dL 70-99 [facility] Serum or plasma calcium patricia urement (mass/volume)Ordered By: Radha Cope on 12-24-2024 Calcium [Mass/Vol] 8.1 mg/dL 7.6-11.0 [facility] Serum or plasma urea nitroge n measurement (mass/volume)Ordered By: Radha Cope on 12-24-2024 Urea nitrogen [Mass/Vol] 37 mg/dL High 4-19 [facility] Sodium levelOrdered By: Sola Cope on 12-24-2024 Sodium [Moles/Vol] 144 mmol/L 133-145 [facility] White blood cell (WBC) count Ordered By: Radha Cope on 12-24-2024 WBC (Bld) [#/Vol] 5.4 10*3/uL 4.4-11.0 [facility] Basic Metabolic Profile (BMP )on 12-22-2024 BUN/CRE 36.6 RATIO High 10-20 [facility] Comment on above: Performed By: #### L 500.2500 ####[facility] [address] [place], [address] Calcium [Mass/Vol] 8.2 mg/dL Normal 7.6-11.0 [facility] Comment on above: Performed By: #### L 500.2500 ####[facility] [address] [place], [address] Chloride [Moles/Vol] 110 mmol/L High 98-108 [facility] Comment on above: Performed By: #### L 500.2500 ####[facility] [address] [place], [address] CO2 [Moles/Vol] 19.9 mmol/L Low 21.0-32.0 [facility] Comment on above: Performed By: #### L 500.2500 ####[facility] [address] [place], [address] Creatinine [Mass/Vol] 1.09 mg/dL Normal 0.70-1.20 [facility] Comment on above: Performed By: #### L 500.2500 ####[facility] [address] [place], [address] ECRCL 49.30 ml/min Low 50-250 [facility] Comment on above: Performed By: #### L 500.2500 ####[facility] [address] [place], [address] GAP 11 Normal 5-15 [facility] Comment on above: Performed By: #### L 500.2500 ####[facility] [address] [place], [address] GFR/1.73 sq M.predicted among non-blacks MDRD (S/P/Bld) [Vol rate/Area] 66 mL/min/{1.73_m2} Normal >60 [facility] Comment on above: Result Comment: mL/m in/1.73m2 CKD-EPI Creatinine Equation (2020) Performed By: #### L 500.2500 ####[facility] [address] [place], [address] Glucose [Mass/Vol] 81 mg/dL Normal 70-99 [facility] Comment on above: Performed By: #### L 500.2500 ####[facility] [address] [place], [address] Potassium [Moles/Vol] 3.9 mmol/L Normal 3.3-5.1 [facility] Comment on above: Performed By: #### L 500.2500 ####[facility] [address] [place], [address] Sodium [Moles/Vol] 140 mmol/L Normal 133-145 [facility] Comment on above: Performed By: #### L 500.2500 ####[facility] [address] [place], [address] Urea nitrogen [Mass/Vol] 40 mg/dL High 4-19 [facility] Comment on above: Performed By: #### L 500.2500 ####[facility] [address] [place], [address] CBC-Complete Blood Cnt No Di ffon 12-22-2024 Erythrocyte distribution width (RBC) [Ratio] 13.2 % Normal 11.6-14.6 [facility] Comment on above: Performed By: #### L 100.0500 ####[facility] [address] [place], [address] Hematocrit (Bld) [Volume fraction] 28.3 % Low 40-54 [facility] Comment on above: Performed By: #### L 100.0500 ####[facility] [address] [place], [address] Hemoglobin (Bld) [Mass/Vol] 9.5 g/dL Low 13.0-16.5 [facility] Comment on above: Performed By: #### L 100.0500 ####[facility] [address] [place], [address] MCH (RBC) [Entitic mass] 34.8 pg High 27.0-32.0 [facility] Comment on above: Performed By: #### L 100.0500 ####[facility] [address] [place], [address] MCHC (RBC) [Mass/Vol] 33.6 g/dL Normal 32-36 [facility] Comment on above: Performed By: #### L 100.0500 ####[facility] [address] [place], [address] MCV (RBC) [Entitic vol] 103.7 fL High 80-94 [facility] Comment on above: Performed By: #### L 100.0500 ####[facility] [address] [place], [address] Platelet mean volume (Bld) [Entitic vol] 9.9 fL Normal 6.2-12.0 [facility] Comment on above: Performed By: #### L 100.0500 ####[facility] [address] [place], [address] Platelets (Bld) [#/Vol] 134 10*3/uL Low 150-450 [facility] Comment on above: Performed By: #### L 100.0500 ####[facility] [address] [place], [address] RBC (Bld) [#/Vol] 2.73 10*6/uL Low 4.6-6.2 [facility] Comment on above: Performed By: #### L 100.0500 ####[facility] [address] [place], [address] RDW SD 50.1 fl High 35.1-43.9 [facility] Comment on above: Performed By: #### L 100.0500 ####[facility] [address] [place], [address] WBC (Bld) [#/Vol] 6.9 10*3/uL Normal 4.4-11.0 [facility] Comment on above: Performed By: #### L 100.0500 ####[facility] [address] [place], [address] Hemoglobinon 12-22-2024 Hemoglobin (Bld) [Mass/Vol] 10.0 g/dL Low 13.0-16.5 [facility] Comment on above: Performed By: #### L 100.1300 ####[facility] [address] [place], [address] Basic Metabolic Profile (BMP )on 12-21-2024 BUN/CRE 32.2 RATIO High 10-20 [facility] Comment on above: Performed By: #### L 500.2500 ####[facility] [address] [place], [address] Calcium [Mass/Vol] 8.4 mg/dL Normal 7.6-11.0 [facility] Comment on above: Performed By: #### L 500.2500 ####[facility] [address] [place], [address] Chloride [Moles/Vol] 106 mmol/L Normal 98-108 [facility] Comment on above: Performed By: #### L 500.2500 ####[facility] [address] [place], [address] CO2 [Moles/Vol] 22.8 mmol/L Normal 21.0-32.0 [facility] Comment on above: Performed By: #### L 500.2500 ####[facility] [address] [place], [address] Creatinine [Mass/Vol] 1.53 mg/dL High 0.70-1.20 [facility] Comment on above: Performed By: #### L 500.2500 ####[facility] [address] [place], [address] ECRCL 35.12 ml/min Low 50-250 [facility] Comment on above: Performed By: #### L 500.2500 ####[facility] [address] [place], [address] GAP 11 Normal 5-15 [facility] Comment on above: Performed By: #### L 500.2500 ####[facility] [address] [place], [address] GFR/1.73 sq M.predicted among non-blacks MDRD (S/P/Bld) [Vol rate/Area] 44 mL/min/{1.73_m2} Low >60 [facility] Comment on above: Result Comment: mL/m in/1.73m2 CKD-EPI Creatinine Equation (2020) Performed By: #### L 500.2500 ####[facility] [address] [place], [address] Glucose [Mass/Vol] 115 mg/dL High 70-99 [facility] Comment on above: Performed By: #### L 500.2500 ####[facility] [address] [place], [address] Potassium [Moles/Vol] 4.0 mmol/L Normal 3.3-5.1 [facility] Comment on above: Performed By: #### L 500.2500 ####[facility] [address] [place], [address] Sodium [Moles/Vol] 140 mmol/L Normal 133-145 [facility] Comment on above: Performed By: #### L 500.2500 ####[facility] [address] [place], [address] Urea nitrogen [Mass/Vol] 49 mg/dL High 4-19 [facility] Comment on above: Performed By: #### L 500.2500 ####[facility] [address] [place], [address] CBC-Complete Blood Cnt No Di ffon 12-21-2024 Erythrocyte distribution width (RBC) [Ratio] 13.0 % Normal 11.6-14.6 [facility] Comment on above: Performed By: #### L 100.0500 ####[facility] [address] [place], [address] Hematocrit (Bld) [Volume fraction] 30.8 % Low 40-54 [facility] Comment on above: Performed By: #### L 100.0500 ####[facility] [address] [place], [address] Hemoglobin (Bld) [Mass/Vol] 10.3 g/dL Low 13.0-16.5 [facility] Comment on above: Performed By: #### L 100.0500 ####[facility] [address] [place], [address] MCH (RBC) [Entitic mass] 35.0 pg High 27.0-32.0 [facility] Comment on above: Performed By: #### L 100.0500 ####[facility] [address] [place], [address] MCHC (RBC) [Mass/Vol] 33.4 g/dL Normal 32-36 [facility] Comment on above: Performed By: #### L 100.0500 ####[facility] [address] [place], [address] MCV (RBC) [Entitic vol] 104.8 fL High 80-94 [facility] Comment on above: Performed By: #### L 100.0500 ####[facility] [address] [place], [address] Platelet mean volume (Bld) [Entitic vol] 9.6 fL Normal 6.2-12.0 [facility] Comment on above: Performed By: #### L 100.0500 ####[facility] [address] [place], [address] Platelets (Bld) [#/Vol] 109 10*3/uL Low 150-450 [facility] Comment on above: Performed By: #### L 100.0500 ####[facility] [address] [place], [address] RBC (Bld) [#/Vol] 2.94 10*6/uL Low 4.6-6.2 [facility] Comment on above: Performed By: #### L 100.0500 ####[facility] [address] [place], [address] RDW SD 50.3 fl High 35.1-43.9 [facility] Comment on above: Performed By: #### L 100.0500 ####[facility] [address] [place], [address] WBC (Bld) [#/Vol] 9.2 10*3/uL Normal 4.4-11.0 [facility] Comment on above: Performed By: #### L 100.0500 ####[facility] [address] [place], [address] Basic Metabolic Profile (BMP )on 12-20-2024 BUN/CRE 22.6 RATIO High 10-20 [facility] Comment on above: Performed By: #### L 100.0500, L500.2500 ####[facility] [address] [place], [address] Calcium [Mass/Vol] 8.4 mg/dL Normal 7.6-11.0 [facility] Comment on above: Performed By: #### L 100.0500, L500.2500 ####[facility] [address] [place], [address] Chloride [Moles/Vol] 108 mmol/L Normal 98-108 [facility] Comment on above: Performed By: #### L 100.0500, L500.2500 ####[facility] [address] [place], [address] CO2 [Moles/Vol] 23.9 mmol/L Normal 21.0-32.0 [facility] Comment on above: Performed By: #### L 100.0500, L500.2500 ####[facility] [address] [place], [address] Creatinine [Mass/Vol] 1.51 mg/dL High 0.70-1.20 [facility] Comment on above: Performed By: #### L 100.0500, L500.2500 ####[facility] [address] [place], [address] ECRCL 35.59 ml/min Low 50-250 [facility] Comment on above: Performed By: #### L 100.0500, L500.2500 ####[facility] [address] [place], [address] GAP 11 Normal 5-15 [facility] Comment on above: Performed By: #### L 100.0500, L500.2500 ####[facility] [address] [place], [address] GFR/1.73 sq M.predicted among non-blacks MDRD (S/P/Bld) [Vol rate/Area] 44 mL/min/{1.73_m2} Low >60 [facility] Comment on above: Result Comment: mL/m in/1.73m2 CKD-EPI Creatinine Equation (2020) Performed By: #### L 100.0500, L500.2500 ####[facility] [address] [place], [address] Glucose [Mass/Vol] 138 mg/dL High 70-99 [facility] Comment on above: Performed By: #### L 100.0500, L500.2500 ####[facility] [address] [place], [address] Potassium [Moles/Vol] 4.7 mmol/L Normal 3.3-5.1 [facility] Comment on above: Performed By: #### L 100.0500, L500.2500 ####[facility] [address] [place], [address] Sodium [Moles/Vol] 143 mmol/L Normal 133-145 [facility] Comment on above: Performed By: #### L 100.0500, L500.2500 ####[facility] [address] [place], [address] Urea nitrogen [Mass/Vol] 34 mg/dL High 4-19 [facility] Comment on above: Performed By: #### L 100.0500, L500.2500 ####[facility] [address] [place], [address] CBC-Complete Blood Cnt No Di ffon 12-20-2024 Erythrocyte distribution width (RBC) [Ratio] 13.2 % Normal 11.6-14.6 [facility] Comment on above: Performed By: #### L 100.0500, L500.2500 ####[facility] [address] [place], [address] Hematocrit (Bld) [Volume fraction] 33.4 % Low 40-54 [facility] Comment on above: Performed By: #### L 100.0500, L500.2500 ####[facility] [address] [place], [address] Hemoglobin (Bld) [Mass/Vol] 11.3 g/dL Low 13.0-16.5 [facility] Comment on above: Performed By: #### L 100.0500, L500.2500 ####[facility] [address] [place], [address] MCH (RBC) [Entitic mass] 35.0 pg High 27.0-32.0 [facility] Comment on above: Performed By: #### L 100.0500, L500.2500 ####[facility] [address] [place], [address] MCHC (RBC) [Mass/Vol] 33.8 g/dL Normal 32-36 [facility] Comment on above: Performed By: #### L 100.0500, L500.2500 ####[facility] [address] [place], [address] MCV (RBC) [Entitic vol] 103.4 fL High 80-94 [facility] Comment on above: Performed By: #### L 100.0500, L500.2500 ####[facility] [address] [place], [address] Platelet mean volume (Bld) [Entitic vol] 9.4 fL Normal 6.2-12.0 [facility] Comment on above: Performed By: #### L 100.0500, L500.2500 ####[facility] [address] [place], [address] Platelets (Bld) [#/Vol] 117 10*3/uL Low 150-450 [facility] Comment on above: Performed By: #### L 100.0500, L500.2500 ####[facility] [address] [place], [address] RBC (Bld) [#/Vol] 3.23 10*6/uL Low 4.6-6.2 [facility] Comment on above: Performed By: #### L 100.0500, L500.2500 ####[facility] [address] [place], [address] RDW SD 50.2 fl High 35.1-43.9 [facility] Comment on above: Performed By: #### L 100.0500, L500.2500 ####[facility] [address] [place], [address] WBC (Bld) [#/Vol] 10.2 10*3/uL Normal 4.4-11.0 [facility] Comment on above: Performed By: #### L 100.0500, L500.2500 ####[facility] [address] [place], [address] Basic Metabolic Profile (BMP )on 12-19-2024 BUN/CRE 23.2 RATIO High 10-20 [facility] Comment on above: Performed By: #### L 500.2500, L100.0500 ####[facility] [address] [place], [address] Calcium [Mass/Vol] 8.4 mg/dL Normal 7.6-11.0 [facility] Comment on above: Performed By: #### L 500.2500, L100.0500 ####[facility] [address] [place], [address] Chloride [Moles/Vol] 109 mmol/L High 98-108 [facility] Comment on above: Performed By: #### L 500.2500, L100.0500 ####[facility] [address] [place], [address] CO2 [Moles/Vol] 22.6 mmol/L Normal 21.0-32.0 [facility] Comment on above: Performed By: #### L 500.2500, L100.0500 ####[facility] [address] [place], [address] Creatinine [Mass/Vol] 1.04 mg/dL Normal 0.70-1.20 [facility] Comment on above: Performed By: #### L 500.2500, L100.0500 ####[facility] [address] [place], [address] ECRCL 51.67 ml/min Normal 50-250 [facility] Comment on above: Performed By: #### L 500.2500, L100.0500 ####[facility] [address] [place], [address] GAP 11 Normal 5-15 [facility] Comment on above: Performed By: #### L 500.2500, L100.0500 ####[facility] [address] [place], [address] GFR/1.73 sq M.predicted among non-blacks MDRD (S/P/Bld) [Vol rate/Area] 69 mL/min/{1.73_m2} Normal >60 [facility] Comment on above: Result Comment: mL/m in/1.73m2 CKD-EPI Creatinine Equation (2020) Performed By: #### L 500.2500, L100.0500 ####[facility] [address] [place], [address] Glucose [Mass/Vol] 122 mg/dL High 70-99 [facility] Comment on above: Performed By: #### L 500.2500, L100.0500 ####[facility] [address] [place], [address] Potassium [Moles/Vol] 3.8 mmol/L Normal 3.3-5.1 [facility] Comment on above: Result Comment: Hemo lysis present, Results??could be affected.?? Performed By: #### L 500.2500, L100.0500 ####[facility] [address] [place], [address] Sodium [Moles/Vol] 142 mmol/L Normal 133-145 [facility] Comment on above: Performed By: #### L 500.2500, L100.0500 ####[facility] [address] [place], [address] Urea nitrogen [Mass/Vol] 24 mg/dL High 4-19 [facility] Comment on above: Performed By: #### L 500.2500, L100.0500 ####[facility] [address] [place], [address] Bedside Glucoseon 12-19-2024 FINGERSTICK GLU 117 mg/dL High 74-106 [facility] Comment on above: Result Comment: RADHA ABDULAZIZENT OF PATIENT CARE PER NURSING PROTOCOL Performed By: #### L 501.080 ####[facility] [address] [place], [address] CBC-Complete Blood Cnt No Di ffon 12-19-2024 Erythrocyte distribution width (RBC) [Ratio] 13.2 % Normal 11.6-14.6 [facility] Comment on above: Performed By: #### L 500.2500, L100.0500 ####[facility] [address] [place], [address] Hematocrit (Bld) [Volume fraction] 35.8 % Low 40-54 [facility] Comment on above: Performed By: #### L 500.2500, L100.0500 ####[facility] [address] [place], [address] Hemoglobin (Bld) [Mass/Vol] 12.1 g/dL Low 13.0-16.5 [facility] Comment on above: Performed By: #### L 500.2500, L100.0500 ####[facility] [address] [place], [address] MCH (RBC) [Entitic mass] 34.8 pg High 27.0-32.0 [facility] Comment on above: Performed By: #### L 500.2500, L100.0500 ####[facility] [address] [place], [address] MCHC (RBC) [Mass/Vol] 33.8 g/dL Normal 32-36 [facility] Comment on above: Performed By: #### L 500.2500, L100.0500 ####[facility] [address] [place], [address] MCV (RBC) [Entitic vol] 102.9 fL High 80-94 [facility] Comment on above: Performed By: #### L 500.2500, L100.0500 ####[facility] [address] [place], [address] Platelet mean volume (Bld) [Entitic vol] 10.1 fL Normal 6.2-12.0 [facility] Comment on above: Performed By: #### L 500.2500, L100.0500 ####[facility] [address] [place], [address] Platelets (Bld) [#/Vol] 127 10*3/uL Low 150-450 [facility] Comment on above: Performed By: #### L 500.2500, L100.0500 ####[facility] [address] [place], [address] RBC (Bld) [#/Vol] 3.48 10*6/uL Low 4.6-6.2 [facility] Comment on above: Performed By: #### L 500.2500, L100.0500 ####[facility] [address] [place], [address] RDW SD 49.3 fl High 35.1-43.9 [facility] Comment on above: Performed By: #### L 500.2500, L100.0500 ####[facility] [address] [place], [address] WBC (Bld) [#/Vol] 7.3 10*3/uL Normal 4.4-11.0 [facility] Comment on above: Performed By: #### L 500.2500, L100.0500 ####[facility] [address] [place], [address] Consultation - Orthopedicson 12-19-2024 Consultation - Orthopedics Normal [facility] Electrocardiogram reportOrde red By: Yadiel Bettencourt on 12-19-2024 EKG study [facility] [address] [place] [address] 12 Lead EKG 12/18/24 1428 MR#: [id number] Acct: [id number] Name: JESS JAMES Rep #:[id number] : 1935 89 From: Yadiel Bettencourt MD Attending Dr: DO Marc Narvaez tatus: ADM IN Ordering Dr: Win Alberto DO Date: 0 12/18/24 Location: [place] Sex: M C Admitted: 12/18/24 Test Reason [...] Abnormal ECG Confirmed by SG COVARRUBIAS, YADIEL ([id number]), editor publications LETY GAMBOA ([id number]) on :02:09 PM Referred By: Confirmed By: YADIEL BETTENCOURT MD 12/19/24 1302 Date _ Yadiel Bettencourt MD CC: Dr. Dyan Kyle MD; Dr. Win Alberto DO; Dr. Radha Cope DO ~ Signed [facility] Other Glucose measurement at [facility] deOrdered By: Radha Cope on 12-19-2024 Glucose [Mass/Vol] 117 mg/dL High 74-106 [facility] Comment on above: MANAGEMENT OF PATIEN T CARE PER NURSING PROTOCOL Hip 1 view with Pelvison Hip 1 view with Pelvis Normal [facility] MR/POSTOP.ANEon 12-19-2024 MR/POSTOP.ANE Normal [facility] MR/[id number] 12-19-2024 MR/POSTOPAN2 [facility] Operative Reporton Operative Report Normal [facility] Type AND Screenon 12-19-2024 ABO and Rh group Nom (Bld) Blood group A Rh(D) negative Normal [facility] Comment on above: Order Comment: S Performed By: #### B TS ####[facility] [address] [place], [address] 12 Lead EKGon 12-18-2024 12 Lead EKG Normal [facility] Absolute lymphocyte countOrd ered By: Win Alberto on 12-18-2024 Lymphocytes Auto (Unsp spec) [#/Vol] 1.75 10*3/uL 0.83-4.51 [facility] Absolute neutrophil countOrd ered By: Win Alberto on 12-18-2024 Neutrophils (Bld) [#/Vol] 4.0 10*3/uL 2.0-7.7 [facility] Activated partial thrombopla stin time (aPTT) in platelet poor plasma by coagulation aOrdered By: Amado Jean on 12-18-2024 aPTT Coag (PPP) [Time] 30.4 s 24.1-36.2 [facility] Anion gap in Serum or Plasma Ordered By: Win Alberto on 12-18-2024 Anion gap [Moles/Vol] 12 mmol/L 5-15 [facility] Automated lymphocyte count a s percentage of total leukocytesOrdered By: Win Alberto on 12-18-2024 Lymphocytes/100 WBC Auto (Unsp spec) 28.2 % -41 [facility] BUN/creatinine ratioOrdered By: Win Alberto on 12-18-2024 Urea nitrogen/Creatinine [Mass ratio] 23.4 mg/mg High 10-20 [facility] Basic Metabolic Profile (BMP )on 12-18-2024 BUN/CRE 23.4 RATIO High 10-20 [facility] Comment on above: Performed By: #### L 100.0100, L500.2500 ####[facility] [address] [place], [address] Calcium [Mass/Vol] 8.7 mg/dL Normal 7.6-11.0 [facility] Comment on above: Performed By: #### L 100.0100, L500.2500 ####[facility] [address] [place], [address] Chloride [Moles/Vol] 110 mmol/L High 98-108 [facility] Comment on above: Performed By: #### L 100.0100, L500.2500 ####[facility] [address] [place], [address] CO2 [Moles/Vol] 19.5 mmol/L Low 21.0-32.0 [facility] Comment on above: Performed By: #### L 100.0100, L500.2500 ####[facility] [address] [place], [address] Creatinine [Mass/Vol] 1.05 mg/dL Normal 0.70-1.20 [facility] Comment on above: Performed By: #### L 100.0100, L500.2500 ####[facility] [address] [place], [address] ECRCL 51.18 ml/min Normal 50-250 [facility] Comment on above: Performed By: #### L 100.0100, L500.2500 ####[facility] [address] [place], [address] GAP 12 Normal 5-15 [facility] Comment on above: Performed By: #### L 100.0100, L500.2500 ####[facility] [address] [place], [address] GFR/1.73 sq M.predicted among non-blacks MDRD (S/P/Bld) [Vol rate/Area] 69 mL/min/{1.73_m2} Normal >60 [facility] Comment on above: Result Comment: mL/m in/1.73m2 CKD-EPI Creatinine Equation (2020) Performed By: #### L 100.0100, L500.2500 ####[facility] [address] [place], [address] Glucose [Mass/Vol] 114 mg/dL High 70-99 [facility] Comment on above: Performed By: #### L 100.0100, L500.2500 ####[facility] [address] [place], [address] Potassium [Moles/Vol] 4.2 mmol/L Normal 3.3-5.1 [facility] Comment on above: Result Comment: Hemo lysis present, Results??could be affected.?? Performed By: #### L 100.0100, L500.2500 ####[place] [facility] [address] [place], [address] Sodium [Moles/Vol] 142 mmol/L Normal 133-145 [facility] Comment on above: Performed By: #### L 100.0100, L500.2500 ####[facility] [address] [place], [address] Urea nitrogen [Mass/Vol] 25 mg/dL High 4-19 [facility] Comment on above: Performed By: #### L 100.0100, L500.2500 ####[facility] [address] [place], [address] Basophil percentageOrdered B y: Win Alberto on 12-18-2024 Basophils/100 WBC (Bld) 0.3 % 0-1 [facility] Bilirubin Test strip Ql (U)O rdered By: Win Alberto on 12-18-2024 Bilirubin Ql (U) Negative Negative [facility] Bilirubin directOrdered By: Amado Jean on 12-18-2024 Bilirubin.direct [Mass/Vol] 0.21 mg/dL 0.00-0.30 [facility] Comment on above: Hemolysis present, R esults could be affected. Bilirubin, totalOrdered By: Amado Jean on 12-18-2024 Bilirubin [Mass/Vol] 0.51 mg/dL 0.00-1.30 [facility] CBC W/Diff, Automatedon 11-22 Absolute Lymph 1.75 X10 3/uL Normal 0.83-4.51 [facility] Comment on above: Performed By: #### L 100.0100, L500.2500 ####[facility] [address] [place], [address] Absolute Neut 4.0 X10 3/uL Normal 2.0-7.7 [facility] Comment on above: Performed By: #### L 100.0100, L500.2500 ####[facility] [address] [place], [address] Basophils/100 WBC (Bld) 0.3 % Normal 0-1 [facility] Comment on above: Performed By: #### L 100.0100, L500.2500 ####[facility] [address] [place], [address] Eosinophils/100 WBC (Bld) 1.1 % Normal 0-5 [facility] Comment on above: Performed By: #### L 100.0100, L500.2500 ####[facility] [address] [place], [address] Erythrocyte distribution width (RBC) [Ratio] 13.1 % Normal 11.6-14.6 [facility] Comment on above: Performed By: #### L 100.0100, L500.2500 ####[facility] [address] [place], [address] Hematocrit (Bld) [Volume fraction] 39.9 % Low 40-54 [facility] Comment on above: Performed By: #### L 100.0100, L500.2500 ####[facility] [address] [place], [address] Hemoglobin (Bld) [Mass/Vol] 13.3 g/dL Normal 13.0-16.5 [facility] Comment on above: Performed By: #### L 100.0100, L500.2500 ####[facility] [address] [place], [address] IG% 0.600 Normal 0.0-0.9 [facility] Comment on above: Result Comment: IG% - Immature Granulocytes (promyelocytes, myelocytes andmetamyelocytes) > 1% indicates that a LEFT SHIFT is Present. Performed By: #### L 100.0100, L500.2500 ####[facility] [address] [place], [address] Lymphocytes/100 WBC (Bld) 28.2 % Normal 19-41 [facility] Comment on above: Performed By: #### L 100.0100, L500.2500 ####[facility] [address] [place], [address] MCH (RBC) [Entitic mass] 34.8 pg High 27.0-32.0 [facility] Comment on above: Performed By: #### L 100.0100, L500.2500 ####[facility] [address] [place], [address] MCHC (RBC) [Mass/Vol] 33.3 g/dL Normal 32-36 [facility] Comment on above: Performed By: #### L 100.0100, L500.2500 ####[facility] [address] [place], [address] MCV (RBC) [Entitic vol] 104.5 fL High 80-94 [facility] Comment on above: Performed By: #### L 100.0100, L500.2500 ####[facility] [address] [place], [address] Monocytes/100 WBC (Bld) 5.6 % Normal 0-10 [facility] Comment on above: Performed By: #### L 100.0100, L500.2500 ####[facility] [address] [place], [address] Neutrophils/100 WBC (Bld) 64.2 % Normal 47-70 [facility] Comment on above: Performed By: #### L 100.0100, L500.2500 ####[facility] [address] [place], [address] Nucleated RBC (Bld) [#/Vol] 0 10*3/uL Normal 0-5 [facility] Comment on above: Performed By: #### L 100.0100, L500.2500 ####[facility] [address] [place], [address] Platelet mean volume (Bld) [Entitic vol] 9.5 fL Normal 6.2-12.0 [facility] Comment on above: Performed By: #### L 100.0100, L500.2500 ####[facility] [address] [place], [address] Platelets (Bld) [#/Vol] 120 10*3/uL Low 150-450 [facility] Comment on above: Performed By: #### L 100.0100, L500.2500 ####[facility] [address] [place], [address] RBC (Bld) [#/Vol] 3.82 10*6/uL Low 4.6-6.2 [facility] Comment on above: Performed By: #### L 100.0100, L500.2500 ####[facility] [address] [place], [address] RDW SD 50.2 fl High 35.1-43.9 [facility] Comment on above: Performed By: #### L 100.0100, L500.2500 ####[facility] [address] [place], [address] WBC (Bld) [#/Vol] 6.2 10*3/uL Normal 4.4-11.0 [facility] Comment on above: Performed By: #### L 100.0100, L500.2500 ####[facility] [address] [place], [address] Carbon dioxide, total [Moles /volume] in Central venous bloodOrdered By: Win Alberto on 12-18-2024 CO2 [Moles/Vol] 19.5 mmol/L Low 21.0-32.0 [facility] Chest 1 Viewon 12-18-2024 Chest 1 View Normal [facility] Chloride assayOrdered By: Derek Alberto on 12-18-2024 Chloride [Moles/Vol] 110 mmol/L High 98-108 [facility] Emergency Department Summary on 12-18-2024 Emergency Department Summary Normal [facility] Eosinophil percentageOrdered By: Win Alberto on 12-18-2024 Eosinophils/100 WBC (Bld) 1.1 % 0-5 [facility] Erythrocyte distribution wid th ratioOrdered By: Win Alberto on 12-18-2024 Erythrocyte distribution width (RBC) [Ratio] 13.1 % 11.6-14.6 [facility] Erythrocyte distribution wid th standard deviationOrdered By: Win Alberto on 12-18-2024 Erythrocyte distribution width (RBC) [Ratio] 50.2 fl High 35.1-43.9 [facility] Glomerular filtration rate ( GFR) estimation/1.73 sq m using serum, plasma, or whole bOrdered By: Win Alberto on 12-18-2024 GFR/1.73 sq M.predicted among non-blacks MDRD (S/P/Bld) [Vol rate/Area] 69 mL/min/{1.73_m2} >60 [facility] Comment on above: mL/min/1.73m2 CKD-EP I Creatinine Equation (2020) H AND P Exam - Hospitaliston 12-18-2024 H&P Exam - Hospitalist Normal [facility] HIP, UNI W/ Pelvis 2-3 Views on 12-18-2024 HIP, UNI W/ Pelvis 2-3 Views Normal [facility] Hematocrit Auto (Bld) [Volum e fraction]Ordered By: Win Alberto on 12-18-2024 Hematocrit (Bld) [Volume fraction] 39.9 % Low 40-54 [facility] Hemoglobin measurementOrdere d By: Win Alberto on 12-18-2024 Hemoglobin (Bld) [Mass/Vol] 13.3 g/dL 13.0-16.5 [facility] Immature granulocytes/100 WB C Auto (Bld)Ordered By: Win Alberto on 12-18-2024 Immature granulocytes/100 WBC (Bld) 0.600 % 0.0-0.9 [facility] Comment on above: IG% - Immature Granu locytes (promyelocytes, myelocytes and metamyelocytes) > 1% indicates that a LEFT SHIFT is Present. International normalized rat io (INR) calculationOrdered By: Amado Jean on 12-18-2024 INR Coag (Bld) [Relative time] 1.1 {INR} [facility] Ketones Test strip Ql (U)Ord ered By: Win Alberto on 12-18-2024 Ketones Ql (U) 15 mg/dl High Negative [facility] Laboratory - Chemistry and C hemistry - challengeOrdered By: Amado Jean on 12-18-2024 AST [Catalytic activity/Vol] 17 U/L <38 [facility] Comment on above: Hemolysis present, R esults could be affected. Liver Profileon 12-18-2024 Albumin [Mass/Vol] 3.3 g/dL Low 3.4-4.8 [facility] Comment on above: Performed By: #### L 500.3400, L503.7505 ####[facility] [address] [place], [address] ALK PHOS 44 U/L Normal 40-129 [facility] Comment on above: Performed By: #### L 500.3400, L503.7505 ####[facility] [address] [place], [address] ALT [Catalytic activity/Vol] 7 U/L Normal <=46 [facility] Comment on above: Performed By: #### L 500.3400, L503.7505 ####[facility] [address] [place], [address] AST [Catalytic activity/Vol] 17 U/L Normal <=37 [facility] Comment on above: Result Comment: Hemo lysis present, Results??could be affected.?? Performed By: #### L 500.3400, L503.7505 ####[facility] [address] [place], [address] Bilirubin [Mass/Vol] 0.51 mg/dL Normal 0.00-1.30 [facility] Comment on above: Performed By: #### L 500.3400, L503.7505 ####[facility] [address] [place], [address] Bilirubin.direct [Mass/Vol] 0.21 mg/dL Normal 0.00-0.30 [facility] Comment on above: Result Comment: Hemo lysis present, Results??could be affected.?? Performed By: #### L 500.3400, L503.7505 ####[facility] [address] [place], [address] Globulin (S) [Mass/Vol] 2.7 g/dL Normal 2.2-4.2 [facility] Comment on above: Performed By: #### L 500.3400, L503.7505 ####[facility] [address] [place], [address] T PROT 6.0 g/dL Normal 5.9-8.4 [facility] Comment on above: Performed By: #### L 500.3400, L503.7505 ####[facility] [address] [place], [address] MCV (mean corpuscular volume ) determinationOrdered By: Win Alberto on 12-18-2024 MCV (RBC) [Entitic vol] 104.5 fL High 80-94 [facility] Mean corpuscular hemoglobin (MCH) determinationOrdered By: Win Alberto on 12-18-2024 MCH (RBC) [Entitic mass] 34.8 pg High 27.0-32.0 [facility] Mean corpuscular hemoglobin concentration (MCHC) determinationOrdered By: Win Alberto on 12-18-2024 MCHC (RBC) [Mass/Vol] 33.3 g/dL 32-36 [facility] Mean platelet volume determi nationOrdered By: Win Alberto on 12-18-2024 Platelet mean volume (Bld) [Entitic vol] 9.5 fL 6.2-12.0 [facility] Microscopic analysis of urin e for red blood cells (RBC)Ordered By: Win Alberto on 12-18-2024 Microscopic analysis of urine for red blood cells (RBC) 0-5 SEEN /hpf 0-5 [facility] Monocyte percentageOrdered B y: Win Alberto on 12-18-2024 Monocytes/100 WBC (Bld) 5.6 % 0-10 [facility] Mucus LM Ql (Urine sed)Order ed By: Win Alberto on 12-18-2024 Mucus Ql (Urine sed) 0 SEEN /hpf [facility] Natriuretic peptide.B prohor leo N-Terminal [Mass/volume] in Serum or PlasmaOrdered By: Amado Jean on 12-18-2024 Natriuretic peptide.B prohormone N-Terminal [Mass/Vol] 1126 pg/mL <1800 [facility] Comment on above: Heart Failure Unlike ly: < 300 pg/mLHeart Failure Likely< 50 Years: > 450 pg/mL50-75 Years: > 900 pg/mL>75 Years: > 1800 pg/mL Neutrophil percentageOrdered By: Win Alberto on 12-18-2024 Neutrophils/100 WBC (Bld) 64.2 % 47-70 [facility] Nitrite Test strip Ql (U)Ord ered By: Win Alberto on 12-18-2024 Nitrite Ql (U) Negative Negative [facility] Nucleated red blood cell per centageOrdered By: Win Alberto on 12-18-2024 Nucleated RBC/100 WBC (Bld) [Ratio] 0 % 0-5 [facility] Partial Thromboplast Timeon 12-18-2024 aPTT Coag (Bld) [Time] 30.4 s Normal 24.1-36.2 [facility] Comment on above: Performed By: #### L 300.3900, L300.4310 ####[facility] [address] [place], [place], [address] Platelet countOrdered By: Derek Alberto on 12-18-2024 Platelets (Bld) [#/Vol] 120 10*3/uL Low 150-450 [facility] Potassium measurement (mass/ volume)Ordered By: Win Alberto on 12-18-2024 Potassium (Unsp spec) [Mass/Vol] 4.2 mmol/L 3.3-5.1 [facility] Comment on above: Hemolysis present, R esults could be affected. Pro- Brain NATRIURETIC PEPTI Rylee 12-18-2024 Natriuretic peptide B (Bld) [Mass/Vol] 1126 pg/mL Normal <=1800 [facility] Comment on above: Result Comment: Hear t Failure Unlikely: < 300 pg/mLHeart Failure Likely< 50 Years: > 450 pg/mL50-75 Years: > 900 pg/mL>75 Years: > 1800 pg/mL Performed By: #### L 500.3400, L503.7505 ####[facility] [address] [place], [address] Protein Test strip Ql (U)Ord ered By: Win Alberto on 12-18-2024 Protein Ql (U) 15 mg/dl High Negative [facility] Prothrombin Time w/INRon INR Coag (PPP) [Relative time] 1.1 {INR} Normal [facility] Comment on above: Performed By: #### L 300.3900, L300.4310 ####[facility] [address] [place], [address] PT Coag (PPP) [Time] 14.8 s Normal 11.7-14.9 [facility] Comment on above: Performed By: #### L 300.3900, L300.4310 ####[facility] [address] [place], [address] Prothrombin timeOrdered By: Amado Jean on 12-18-2024 PT Coag (PPP) [Time] 14.8 s 11.7-14.9 [facility] RBC Auto (Bld) [#/Vol]Ordere d By: Win Alberto on 12-18-2024 RBC (Bld) [#/Vol] 3.82 10*6/uL Low 4.6-6.2 [facility] Serum creatinine measurement (mass/volume)Ordered By: Win Alberto on 12-18-2024 Creatinine [Mass/Vol] 1.05 mg/dL 0.70-1.20 [facility] Serum globulin measurementOr dered By: Amado Jean on 12-18-2024 Globulin (S) [Mass/Vol] 2.7 g/dL 2.2-4.2 [facility] Serum glucose measurement (m ass/volume)Ordered By: Win Alberto on 12-18-2024 Glucose [Mass/Vol] 114 mg/dL High 70-99 [facility] Serum or plasma alanine rausch otransferase (ALT) measurementOrdered By: Amado Jean on 12-18-2024 ALT [Catalytic activity/Vol] 7 U/L <47 [facility] Serum or plasma albumin patricia urement (mass/volume)Ordered By: Amado Jean on 12-18-2024 Albumin [Mass/Vol] 3.3 g/dL Low 3.4-4.8 [facility] Serum or plasma alkaline martín sphatase measurementOrdered By: Amado Jean on 12-18-2024 ALP [Catalytic activity/Vol] 44 U/L 40-129 [facility] Serum or plasma calcium patricia urement (mass/volume)Ordered By: Win Alberto on 12-18-2024 Calcium [Mass/Vol] 8.7 mg/dL 7.6-11.0 [facility] Serum or plasma urea nitroge n measurement (mass/volume)Ordered By: Win Alberto on 12-18-2024 Urea nitrogen [Mass/Vol] 25 mg/dL High 4-19 [facility] Sodium levelOrdered By: Win Alberto on 12-18-2024 Sodium [Moles/Vol] 142 mmol/L 133-145 [facility] Squamous epithelial cells de tection in urine sediment by light microscopyOrdered By: Win Alberto on 12-18-2024 Epithelial cells.squamous LM Ql (Urine sed) 0 SEEN /hpf 0-5 [facility] Total proteinOrdered By: Alysia Jean on 12-18-2024 Protein [Mass/Vol] 6.0 g/dL 5.9-8.4 [facility] Urinalysis, Completeon 12-18 RBC 0-5 SEEN Normal 0-5 [facility] Comment on above: Order Comment: CLEAN CATCH Performed By: #### L 400.0001 ####[facility] [address] [place], [address] BACTERIA 0 SEEN Normal None Seen [facility] Comment on above: Order Comment: CLEAN CATCH Performed By: #### L 400.0001 ####[facility] [address] [place], [address] EPI,SQUAMOUS 0 SEEN Normal 0-5 [facility] Comment on above: Order Comment: CLEAN CATCH Performed By: #### L 400.0001 ####[facility] [address] [place], [address] Mucus Ql (Urine sed) 0 SEEN Normal [facility] Comment on above: Order Comment: CLEAN CATCH Performed By: #### L 400.0001 ####[facility] [address] [place], [address] WBC 0 SEEN Normal 0-5 [facility] Comment on above: Order Comment: CLEAN CATCH Performed By: #### L 400.0001 ####[facility] [address] [place], [address] Urine clarityOrdered By: Cindy Alberto on 12-18-2024 Clarity (U) Clear Clear [facility] Urine color determinationOrd ered By: Win Alberto on 12-18-2024 Color (U) Yellow Yellow [facility] Urine glucose detectionOrder ed By: Win Alberto on 12-18-2024 Glucose Ql (U) 1000 mg/dl High Normal [facility] Urine leukocyte esterase det ection by dipstickOrdered By: Win Alberto on 12-18-2024 Leukocyte esterase Test strip Ql (U) Negative Negative [facility] Urine pHOrdered By: Win yu on 12-18-2024 pH (U) 7.0 [pH] 5.0 - 8.0 [facility] Urine sediment bacteria coun t by microscopy (number/high power field)Ordered By: Win Alberto on 12-18-2024 Bacteria LM.HPF (Urine sed) [#/Area] 0 /[HPF] None Seen [facility] Urine specific gravity measu rementOrdered By: Win Alberto on 12-18-2024 Specific gravity (U) [Rel density] 1.010 1.002-1.030 [facility] Urine urobilinogen measureme ntOrdered By: Win Alberto on 12-18-2024 Urobilinogen Ql (U) Normal mg/dl Normal [facility] White blood cell (WBC) count Ordered By: Win Alberto on 12-18-2024 WBC (Bld) [#/Vol] 6.2 10*3/uL 4.4-11.0 [facility] White blood cell countOrdere d By: Win Alberto on 12-18-2024 White blood cell count 0 SEEN /hpf 0-5 [facility] Absolute lymphocyte countOrd ered By: Carolina Mcgee on 11-07-2024 Lymphocytes Auto (Unsp spec) [#/Vol] 2.56 10*3/uL 0.83-4.51 [facility] Absolute neutrophil countOrd ered By: Carolina Mcgee on 11-07-2024 Neutrophils (Bld) [#/Vol] 2.3 10*3/uL 2.0-7.7 [facility] Anion gap in Serum or Plasma Ordered By: Carolina Mcgee on 11-07-2024 Anion gap [Moles/Vol] 11 mmol/L 5-15 [facility] Automated lymphocyte count a s percentage of total leukocytesOrdered By: Carolina Mcgee on 11-07-2024 Lymphocytes/100 WBC Auto (Unsp spec) 45.7 % High 19-41 [facility] BUN/creatinine ratioOrdered By: Carolina Mcgee on 11-07-2024 Urea nitrogen/Creatinine [Mass ratio] 23.8 mg/mg High 10-20 [facility] Basophil percentageOrdered B y: Carolina Mcgee on 11-07-2024 Basophils/100 WBC (Bld) 0.5 % 0-1 [facility] Bilirubin, totalOrdered By: Carolina Mcgee on 11-07-2024 Bilirubin [Mass/Vol] 0.55 mg/dL 0.00-1.30 [facility] CBC W/Diff, Automatedon 10-22 Absolute Lymph 2.56 X10 3/uL Normal 0.83-4.51 [facility] Comment on above: Performed By: #### L 100.0100, L500.4050, L501.9940 ####[facility] [address] [place], [address] Absolute Neut 2.3 X10 3/uL Normal 2.0-7.7 [facility] Comment on above: Performed By: #### L 100.0100, L500.4050, L501.9940 ####[facility] [address] [place], [address] Basophils/100 WBC (Bld) 0.5 % Normal 0-1 [facility] Comment on above: Performed By: #### L 100.0100, L500.4050, L501.9940 ####[facility] [address] [place], [address] Eosinophils/100 WBC (Bld) 3.0 % Normal 0-5 [facility] Comment on above: Performed By: #### L 100.0100, L500.4050, L501.9940 ####[facility] [address] [place], [address] Erythrocyte distribution width (RBC) [Ratio] 13.5 % Normal 11.6-14.6 [facility] Comment on above: Performed By: #### L 100.0100, L500.4050, L501.9940 ####[facility] [address] [place], [address] Hematocrit (Bld) [Volume fraction] 39.6 % Low 40-54 [facility] Comment on above: Performed By: #### L 100.0100, L500.4050, L501.9940 ####[facility] [address] [place], [address] Hemoglobin (Bld) [Mass/Vol] 13.4 g/dL Normal 13.0-16.5 [facility] Comment on above: Performed By: #### L 100.0100, L500.4050, L501.9940 ####[facility] [address] [place], [address] IG% 0.700 Normal 0.0-0.9 [facility] Comment on above: Result Comment: IG% - Immature Granulocytes (promyelocytes, myelocytes andmetamyelocytes) > 1% indicates that a LEFT SHIFT is Present. Performed By: #### L 100.0100, L500.4050, L501.9940 ####[facility] [address] [place], [address] Lymphocytes/100 WBC (Bld) 45.7 % High 19-41 [facility] Comment on above: Performed By: #### L 100.0100, L500.4050, L501.9940 ####[facility] [address] [place], [address] MCH (RBC) [Entitic mass] 34.3 pg High 27.0-32.0 [facility] Comment on above: Performed By: #### L 100.0100, L500.4050, L501.9940 ####[facility] [address] [place], [address] MCHC (RBC) [Mass/Vol] 33.8 g/dL Normal 32-36 [facility] Comment on above: Performed By: #### L 100.0100, L500.4050, L501.9940 ####[facility] [address] [place], [address] MCV (RBC) [Entitic vol] 101.3 fL High 80-94 [facility] Comment on above: Performed By: #### L 100.0100, L500.4050, L501.9940 ####[facility] [address] [place], [address] Monocytes/100 WBC (Bld) 9.1 % Normal 0-10 [facility] Comment on above: Performed By: #### L 100.0100, L500.4050, L501.9940 ####[facility] [address] [place], [address] Neutrophils/100 WBC (Bld) 41.0 % Low 47-70 [facility] Comment on above: Performed By: #### L 100.0100, L500.4050, L501.9940 ####[facility] [address] [place], [address] Nucleated RBC (Bld) [#/Vol] 0 10*3/uL Normal 0-5 [facility] Comment on above: Performed By: #### L 100.0100, L500.4050, L501.9940 ####[facility] [address] [place], [address] Platelet mean volume (Bld) [Entitic vol] 9.1 fL Normal 6.2-12.0 [facility] Comment on above: Performed By: #### L 100.0100, L500.4050, L501.9940 ####[facility] [address] [place], [address] Platelets (Bld) [#/Vol] 153 10*3/uL Normal 150-450 [facility] Comment on above: Performed By: #### L 100.0100, L500.4050, L501.9940 ####[facility] [address] [place], [address] RBC (Bld) [#/Vol] 3.91 10*6/uL Low 4.6-6.2 [facility] Comment on above: Performed By: #### L 100.0100, L500.4050, L501.9940 ####[facility] [address] [place], [address] RDW SD 50.3 fl High 35.1-43.9 [facility] Comment on above: Performed By: #### L 100.0100, L500.4050, L501.9940 ####[facility] [address] [place], [address] WBC (Bld) [#/Vol] 5.6 10*3/uL Normal 4.4-11.0 [facility] Comment on above: Performed By: #### L 100.0100, L500.4050, L501.9940 ####[facility] [address] [place], [address] Carbon dioxide, total [Moles /volume] in Central venous bloodOrdered By: Carolina Mcgee on 11-07-2024 CO2 [Moles/Vol] 22.5 mmol/L 21.0-32.0 [facility] Chloride assayOrdered By: Sánchez Mcgee on 11-07-2024 Chloride [Moles/Vol] 111 mmol/L High 98-108 [facility] Comprehensive Metabolic Prof ilon 11-07-2024 Albumin [Mass/Vol] 3.8 g/dL Normal 3.4-4.8 [facility] Comment on above: Performed By: #### L 100.0100, L500.4050, L501.9940 ####[facility] [address] [place], [address] Albumin/Globulin [Mass ratio] 1.3 {ratio} Normal 0.9-2.4 [facility] Comment on above: Performed By: #### L 100.0100, L500.4050, L501.9940 ####[facility] [address] [place], [address] ALK PHOS 51 U/L Normal 40-129 [facility] Comment on above: Performed By: #### L 100.0100, L500.4050, L501.9940 ####[facility] [address] [place], [address] ALT [Catalytic activity/Vol] U/L Normal <=46 [facility] Comment on above: Performed By: #### L 100.0100, L500.4050, L501.9940 ####[facility] [address] [place], [address] AST [Catalytic activity/Vol] 15 U/L Normal <=37 [facility] Comment on above: Performed By: #### L 100.0100, L500.4050, L501.9940 ####[facility] [address] [place], [address] Bilirubin [Mass/Vol] 0.55 mg/dL Normal 0.00-1.30 [facility] Comment on above: Performed By: #### L 100.0100, L500.4050, L501.9940 ####[facility] [address] [place], [address] BUN/CRE 23.8 RATIO High 10-20 [facility] Comment on above: Performed By: #### L 100.0100, L500.4050, L501.9940 ####[facility] [address] [place], [address] Calcium [Mass/Vol] 8.9 mg/dL Normal 7.6-11.0 [facility] Comment on above: Performed By: #### L 100.0100, L500.4050, L501.9940 ####[facility] [address] [place], [address] Chloride [Moles/Vol] 111 mmol/L High 98-108 [facility] Comment on above: Performed By: #### L 100.0100, L500.4050, L501.9940 ####[facility] [address] [place], [address] CO2 [Moles/Vol] 22.5 mmol/L Normal 21.0-32.0 [facility] Comment on above: Performed By: #### L 100.0100, L500.4050, L501.9940 ####[facility] [address] [place], [address] Creatinine [Mass/Vol] 0.90 mg/dL Normal 0.70-1.20 [facility] Comment on above: Performed By: #### L 100.0100, L500.4050, L501.9940 ####[facility] [address] [place], [address] ECRCL 59.71 ml/min Normal 50-250 [facility] Comment on above: Performed By: #### L 100.0100, L500.4050, L501.9940 ####[facility] [address] [place], [address] GAP 11 Normal 5-15 [facility] Comment on above: Performed By: #### L 100.0100, L500.4050, L501.9940 ####[facility] [address] [place], [address] GFR/1.73 sq M.predicted among non-blacks MDRD (S/P/Bld) [Vol rate/Area] 83 mL/min/{1.73_m2} Normal >60 [facility] Comment on above: Result Comment: mL/m in/1.73m2 CKD-EPI Creatinine Equation (2020) Performed By: #### L 100.0100, L500.4050, L501.9940 ####[facility] [address] [place], [address] Globulin (S) [Mass/Vol] 2.9 g/dL Normal 2.2-4.2 [facility] Comment on above: Performed By: #### L 100.0100, L500.4050, L501.9940 ####[facility] [address] [place], [address] Glucose [Mass/Vol] 107 mg/dL High 70-99 [facility] Comment on above: Performed By: #### L 100.0100, L500.4050, L501.9940 ####[facility] [address] [place], [address] Potassium [Moles/Vol] 4.2 mmol/L Normal 3.3-5.1 [facility] Comment on above: Performed By: #### L 100.0100, L500.4050, L501.9940 ####[facility] [address] [place], [address] Sodium [Moles/Vol] 145 mmol/L Normal 133-145 [facility] Comment on above: Performed By: #### L 100.0100, L500.4050, L501.9940 ####[facility] [address] [place], [address] T PROT 6.7 g/dL Normal 5.9-8.4 [facility] Comment on above: Performed By: #### L 100.0100, L500.4050, L501.9940 ####[facility] [address] [place], [address] Urea nitrogen [Mass/Vol] 21 mg/dL High 4-19 [facility] Comment on above: Performed By: #### L 100.0100, L500.4050, L501.9940 ####[facility] [address] [place], [address] Eosinophil percentageOrdered By: Carolina Mcgee on 11-07-2024 Eosinophils/100 WBC (Bld) 3.0 % 0-5 [facility] Erythrocyte distribution wid th ratioOrdered By: Carolina Mcgee on 11-07-2024 Erythrocyte distribution width (RBC) [Ratio] 13.5 % 11.6-14.6 [facility] Erythrocyte distribution wid th standard deviationOrdered By: Carolina Mcgee on 11-07-2024 Erythrocyte distribution width (RBC) [Ratio] 50.3 fl High 35.1-43.9 [facility] Glomerular filtration rate ( GFR) estimation/1.73 sq m using serum, plasma, or whole bOrdered By: Carolina Mcgee on 11-07-2024 GFR/1.73 sq M.predicted among non-blacks MDRD (S/P/Bld) [Vol rate/Area] 83 mL/min/{1.73_m2} >60 [facility] Comment on above: mL/min/1.73m2 CKD-EP I Creatinine Equation (2020) Hematocrit Auto (Bld) [Volum e fraction]Ordered By: Carolina Mcgee on 11-07-2024 Hematocrit (Bld) [Volume fraction] 39.6 % Low 40-54 [facility] Hemoglobin measurementOrdere d By: Carolina Mcgee on 11-07-2024 Hemoglobin (Bld) [Mass/Vol] 13.4 g/dL 13.0-16.5 [facility] Immature granulocytes/100 WB C Auto (Bld)Ordered By: Carolina Mcgee on 11-07-2024 Immature granulocytes/100 WBC (Bld) 0.700 % 0.0-0.9 [facility] Comment on above: IG% - Immature Granu locytes (promyelocytes, myelocytes and metamyelocytes) > 1% indicates that a LEFT SHIFT is Present. Laboratory - Chemistry and C hemistry - challengeOrdered By: Carolina Mcgee on 11-07-2024 AST [Catalytic activity/Vol] 15 U/L <38 [facility] MCV (mean corpuscular volume ) determinationOrdered By: Carolina Mcgee on 11-07-2024 MCV (RBC) [Entitic vol] 101.3 fL High 80-94 [facility] Mean corpuscular hemoglobin (MCH) determinationOrdered By: Carolina Mcgee on 11-07-2024 MCH (RBC) [Entitic mass] 34.3 pg High 27.0-32.0 [facility] Mean corpuscular hemoglobin concentration (MCHC) determinationOrdered By: Carolina Mcgee on 11-07-2024 MCHC (RBC) [Mass/Vol] 33.8 g/dL 32-36 [facility] Mean platelet volume determi nationOrdered By: Carolina Arely on 11-07-2024 Platelet mean volume (Bld) [Entitic vol] 9.1 fL 6.2-12.0 [facility] Monocyte percentageOrdered B y: Carolina Arely on 11-07-2024 Monocytes/100 WBC (Bld) 9.1 % 0-10 [facility] Neutrophil percentageOrdered By: [facility] on 11-07-2024 Neutrophils/100 WBC (Bld) 41.0 % Low 47-70 [facility] Nucleated red blood cell per centageOrdered By: [facility] on 11-07-2024 Nucleated RBC/100 WBC (Bld) [Ratio] 0 % 0-5 [facility] Oncology Visit Reporton 10-22 Oncology Visit Report Normal [facility] PSA,Total- Diagnosticon 10-22 PSA, DIAGNOSTIC < 0.02 Normal 0.00-4.00 [facility] Comment on above: Result Comment: This test was performed using the [employer] tPSAmethod. Measured values of a patient??sample can varydepending on the testing procedure used. PSA valuesdetermined on patient samples by different testingprocedures cannot be used interchangeably. If there is achange in PSA assays while monitoring therapy, sequentialtesting should be performed to confirm baseline values. Performed By: #### L 100.0100, L500.4050, L501.9940 ####[facility] [address] [place], [place], [address] Platelet countOrdered By: Sánchez Mcgee on 11-07-2024 Platelets (Bld) [#/Vol] 153 10*3/uL 150-450 [facility] Potassium measurement (mass/ volume)Ordered By: Carolina Mcgee on 11-07-2024 Potassium (Unsp spec) [Mass/Vol] 4.2 mmol/L 3.3-5.1 [facility] RBC Auto (Bld) [#/Vol]Ordere d By: Carolina Mcgee on 11-07-2024 RBC (Bld) [#/Vol] 3.91 10*6/uL Low 4.6-6.2 [facility] Serum creatinine measurement (mass/volume)Ordered By: Carolina Mcgee on 11-07-2024 Creatinine [Mass/Vol] 0.90 mg/dL 0.70-1.20 [facility] Serum globulin measurementOr dered By: Carolina Mcgee on 11-07-2024 Globulin (S) [Mass/Vol] 2.9 g/dL 2.2-4.2 [facility] Serum glucose measurement (m ass/volume)Ordered By: Carolina Mcgee on 11-07-2024 Glucose [Mass/Vol] 107 mg/dL High 70-99 [facility] Serum or plasma alanine rausch otransferase (ALT) measurementOrdered By: Carolina Mcgee on 11-07-2024 ALT [Catalytic activity/Vol] U/L <47 [facility] Serum or plasma albumin patricia urement (mass/volume)Ordered By: Carolina Mcgee on 11-07-2024 Albumin [Mass/Vol] 3.8 g/dL 3.4-4.8 [facility] Serum or plasma albumin/glob ulin mass ratioOrdered By: Carolina Mcgee on 11-07-2024 Albumin/Globulin [Mass ratio] 1.3 {ratio} 0.9-2.4 [facility] Serum or plasma alkaline martín sphatase measurementOrdered By: Carolina Mcgee on 11-07-2024 ALP [Catalytic activity/Vol] 51 U/L 40-129 [facility] Serum or plasma calcium patricia urement (mass/volume)Ordered By: Carolina Mcgee on 11-07-2024 Calcium [Mass/Vol] 8.9 mg/dL 7.6-11.0 [facility] Serum or plasma urea nitroge n measurement (mass/volume)Ordered By: Carolina Mcgee on 11-07-2024 Urea nitrogen [Mass/Vol] 21 mg/dL High 4-19 [facility] Sodium levelOrdered By: Vaishnavi Mcgee on 11-07-2024 Sodium [Moles/Vol] 145 mmol/L 133-145 [facility] Total proteinOrdered By: Graham Mcgee on 11-07-2024 Protein [Mass/Vol] 6.7 g/dL 5.9-8.4 [facility] White blood cell (WBC) count Ordered By: Carolina Mcgee on 11-07-2024 WBC (Bld) [#/Vol] 5.6 10*3/uL 4.4-11.0 [facility] Internal Medicine Office Vis odin 10-25-2024 Internal Medicine Office Visit Normal [facility] Laboratory - Hematology and Cell countsOrdered By: Dyan Kyle on 10-25-2024 HbA1c (Bld) [Mass fraction] 5.7 % 4.2-6.3 [facility] Absolute lymphocyte countOrd ered By: Carolina Mcgee on 09-26-2024 Lymphocytes Auto (Unsp spec) [#/Vol] 2.33 10*3/uL 0.83-4.51 [facility] Absolute neutrophil countOrd ered By: Carolina Mcgee on 09-26-2024 Neutrophils (Bld) [#/Vol] 2.0 10*3/uL 2.0-7.7 [facility] Anion gap in Serum or Plasma Ordered By: Carolina Mcgee on 09-26-2024 Anion gap [Moles/Vol] 10 mmol/L 5-15 [facility] Automated lymphocyte count a s percentage of total leukocytesOrdered By: Carolina Mcgee on 09-26-2024 Lymphocytes/100 WBC Auto (Unsp spec) 46.6 % High 19-41 [facility] BUN/creatinine ratioOrdered By: Carolina Mcgee on 09-26-2024 Urea nitrogen/Creatinine [Mass ratio] 24.2 mg/mg High 10-20 [facility] Basophil percentageOrdered B y: Carolina Mcgee on 09-26-2024 Basophils/100 WBC (Bld) 0.6 % 0-1 [facility] Bilirubin, totalOrdered By: Carolina Mcgee on 09-26-2024 Bilirubin [Mass/Vol] 0.54 mg/dL 0.00-1.30 [facility] CBC W/Diff, Automatedon Absolute Lymph 2.33 X10 3/uL Normal 0.83-4.51 [facility] Comment on above: Performed By: #### L 100.0100, L501.9940, L500.4050 ####[facility] [address] [place], [address] Absolute Neut 2.0 X10 3/uL Normal 2.0-7.7 [facility] Comment on above: Performed By: #### L 100.0100, L501.9940, L500.4050 ####[facility] [address] [place], [address] Basophils/100 WBC (Bld) 0.6 % Normal 0-1 [facility] Comment on above: Performed By: #### L 100.0100, L501.9940, L500.4050 ####[facility] [address] [place], [address] Eosinophils/100 WBC (Bld) 2.8 % Normal 0-5 [facility] Comment on above: Performed By: #### L 100.0100, L501.9940, L500.4050 ####[facility] [address] [place], [address] Erythrocyte distribution width (RBC) [Ratio] 13.4 % Normal 11.6-14.6 [facility] Comment on above: Performed By: #### L 100.0100, L501.9940, L500.4050 ####[facility] [address] [place], [address] Hematocrit (Bld) [Volume fraction] 40.2 % Normal 40-54 [facility] Comment on above: Performed By: #### L 100.0100, L501.9940, L500.4050 ####[facility] [address] [place], [address] Hemoglobin (Bld) [Mass/Vol] 13.4 g/dL Normal 13.0-16.5 [facility] Comment on above: Performed By: #### L 100.0100, L501.9940, L500.4050 ####[facility] [address] [place], [address] IG% 0.600 Normal 0.0-0.9 [facility] Comment on above: Result Comment: IG% - Immature Granulocytes (promyelocytes, myelocytes andmetamyelocytes) > 1% indicates that a LEFT SHIFT is Present. Performed By: #### L 100.0100, L501.9940, L500.4050 ####[facility] [address] [place], [address] Lymphocytes/100 WBC (Bld) 46.6 % High 19-41 [facility] Comment on above: Performed By: #### L 100.0100, L501.9940, L500.4050 ####[facility] [address] [place], [address] MCH (RBC) [Entitic mass] 34.4 pg High 27.0-32.0 [facility] Comment on above: Performed By: #### L 100.0100, L501.9940, L500.4050 ####[facility] [address] [place], [address] MCHC (RBC) [Mass/Vol] 33.3 g/dL Normal 32-36 [facility] Comment on above: Performed By: #### L 100.0100, L501.9940, L500.4050 ####[facility] [address] [place], [address] MCV (RBC) [Entitic vol] 103.1 fL High 80-94 [facility] Comment on above: Performed By: #### L 100.0100, L501.9940, L500.4050 ####[facility] [address] [place], [address] Monocytes/100 WBC (Bld) 8.8 % Normal 0-10 [facility] Comment on above: Performed By: #### L 100.0100, L501.9940, L500.4050 ####[facility] [address] [place], [address] Neutrophils/100 WBC (Bld) 40.6 % Low 47-70 [facility] Comment on above: Performed By: #### L 100.0100, L501.9940, L500.4050 ####[facility] [address] [place], [address] Nucleated RBC (Bld) [#/Vol] 0 10*3/uL Normal 0-5 [facility] Comment on above: Performed By: #### L 100.0100, L501.9940, L500.4050 ####[facility] [address] [place], [address] Platelet mean volume (Bld) [Entitic vol] 9.2 fL Normal 6.2-12.0 [facility] Comment on above: Performed By: #### L 100.0100, L501.9940, L500.4050 ####[facility] [address] [place], [address] Platelets (Bld) [#/Vol] 175 10*3/uL Normal 150-450 [facility] Comment on above: Performed By: #### L 100.0100, L501.9940, L500.4050 ####[facility] [address] [place], [address] RBC (Bld) [#/Vol] 3.90 10*6/uL Low 4.6-6.2 [facility] Comment on above: Performed By: #### L 100.0100, L501.9940, L500.4050 ####[facility] [address] [place], [address] RDW SD 51.2 fl High 35.1-43.9 [facility] Comment on above: Performed By: #### L 100.0100, L501.9940, L500.4050 ####[facility] [address] [place], [address] WBC (Bld) [#/Vol] 5.0 10*3/uL Normal 4.4-11.0 [facility] Comment on above: Performed By: #### L 100.0100, L501.9940, L500.4050 ####[facility] [address] [place], [address] Carbon dioxide, total [Moles /volume] in Central venous bloodOrdered By: Carolina Mcgee on 09-26-2024 CO2 [Moles/Vol] 25.9 mmol/L 21.0-32.0 [facility] Chloride assayOrdered By: Sánchez Mcgee on 09-26-2024 Chloride [Moles/Vol] 107 mmol/L 98-108 [facility] Comprehensive Metabolic Prof ilon 09-26-2024 Albumin [Mass/Vol] 3.7 g/dL Normal 3.4-4.8 [facility] Comment on above: Performed By: #### L 100.0100, L501.9940, L500.4050 ####[facility] [address] [place], [address] Albumin/Globulin [Mass ratio] 1.2 {ratio} Normal 0.9-2.4 [facility] Comment on above: Performed By: #### L 100.0100, L501.9940, L500.4050 ####[facility] [address] [place], [address] ALK PHOS 52 U/L Normal 40-129 [facility] Comment on above: Performed By: #### L 100.0100, L501.9940, L500.4050 ####[facility] [address] [place], [address] ALT [Catalytic activity/Vol] U/L Normal <=46 [facility] Comment on above: Performed By: #### L 100.0100, L501.9940, L500.4050 ####[facility] [address] [place], [address] AST [Catalytic activity/Vol] 16 U/L Normal <=37 [facility] Comment on above: Performed By: #### L 100.0100, L501.9940, L500.4050 ####[facility] [address] [place], [address] Bilirubin [Mass/Vol] 0.54 mg/dL Normal 0.00-1.30 [facility] Comment on above: Performed By: #### L 100.0100, L501.9940, L500.4050 ####[facility] [address] [place], [address] BUN/CRE 24.2 RATIO High 10-20 [facility] Comment on above: Performed By: #### L 100.0100, L501.9940, L500.4050 ####[facility] [address] [place], [address] Calcium [Mass/Vol] 9.0 mg/dL Normal 7.6-11.0 [facility] Comment on above: Performed By: #### L 100.0100, L501.9940, L500.4050 ####[facility] [address] [place], [address] Chloride [Moles/Vol] 107 mmol/L Normal 98-108 [facility] Comment on above: Performed By: #### L 100.0100, L501.9940, L500.4050 ####[facility] [address] [place], [address] CO2 [Moles/Vol] 25.9 mmol/L Normal 21.0-32.0 [facility] Comment on above: Performed By: #### L 100.0100, L501.9940, L500.4050 ####[facility] [address] [place], [address] Creatinine [Mass/Vol] 1.05 mg/dL Normal 0.70-1.20 [facility] Comment on above: Performed By: #### L 100.0100, L501.9940, L500.4050 ####[facility] [address] [place], [address] ECRCL 51.18 ml/min Normal 50-250 [facility] Comment on above: Performed By: #### L 100.0100, L501.9940, L500.4050 ####[facility] [address] [place], [address] GAP 10 Normal 5-15 [facility] Comment on above: Performed By: #### L 100.0100, L501.9940, L500.4050 ####[facility] [address] [place], [address] GFR/1.73 sq M.predicted among non-blacks MDRD (S/P/Bld) [Vol rate/Area] 69 mL/min/{1.73_m2} Normal >60 [facility] Comment on above: Result Comment: mL/m in/1.73m2 CKD-EPI Creatinine Equation (2020) Performed By: #### L 100.0100, L501.9940, L500.4050 ####[facility] [address] [place], [address] Globulin (S) [Mass/Vol] 3.0 g/dL Normal 2.2-4.2 [facility] Comment on above: Performed By: #### L 100.0100, L501.9940, L500.4050 ####[facility] [address] [place], [address] Glucose [Mass/Vol] 121 mg/dL High 70-99 [facility] Comment on above: Performed By: #### L 100.0100, L501.9940, L500.4050 ####[facility] [address] [place], [address] Potassium [Moles/Vol] 4.2 mmol/L Normal 3.3-5.1 [facility] Comment on above: Performed By: #### L 100.0100, L501.9940, L500.4050 ####[facility] [address] [place], [address] Sodium [Moles/Vol] 143 mmol/L Normal 133-145 [facility] Comment on above: Performed By: #### L 100.0100, L501.9940, L500.4050 ####[facility] [address] [place], [address] T PROT 6.8 g/dL Normal 5.9-8.4 [facility] Comment on above: Performed By: #### L 100.0100, L501.9940, L500.4050 ####[facility] [address] [place], [address] Urea nitrogen [Mass/Vol] 25 mg/dL High 4-19 [facility] Comment on above: Performed By: #### L 100.0100, L501.9940, L500.4050 ####[facility] [address] [place], [place], [id number] Eosinophil percentageOrdered By: Carolina Mcgee on 09-26-2024 Eosinophils/100 WBC (Bld) 2.8 % 0-5 [facility] Erythrocyte distribution wid th ratioOrdered By: Carolina Mcgee on 09-26-2024 Erythrocyte distribution width (RBC) [Ratio] 13.4 % 11.6-14.6 [facility] Erythrocyte distribution wid th standard deviationOrdered By: Carolina Mcgee on 09-26-2024 Erythrocyte distribution width (RBC) [Ratio] 51.2 fl High 35.1-43.9 [facility] Glomerular filtration rate ( GFR) estimation/1.73 sq m using serum, plasma, or whole bOrdered By: Carolina Mcgee on 09-26-2024 GFR/1.73 sq M.predicted among non-blacks MDRD (S/P/Bld) [Vol rate/Area] 69 mL/min/{1.73_m2} >60 [facility] Comment on above: mL/min/1.73m2 CKD-EP I Creatinine Equation (2020) Hematocrit Auto (Bld) [Volum e fraction]Ordered By: Carolina Mcgee on 09-26-2024 Hematocrit (Bld) [Volume fraction] 40.2 % 40-54 [facility] Hemoglobin measurementOrdere d By: Carolina Mcgee on 09-26-2024 Hemoglobin (Bld) [Mass/Vol] 13.4 g/dL 13.0-16.5 [facility] Immature granulocytes/100 WB C Auto (Bld)Ordered By: Carolina Mcgee on 09-26-2024 Immature granulocytes/100 WBC (Bld) 0.600 % 0.0-0.9 [facility] Comment on above: IG% - Immature Granu locytes (promyelocytes, myelocytes and metamyelocytes) > 1% indicates that a LEFT SHIFT is Present. Laboratory - Chemistry and C hemistry - challengeOrdered By: Carolina Mcgee on 09-26-2024 AST [Catalytic activity/Vol] 16 U/L <38 [facility] MCV (mean corpuscular volume ) determinationOrdered By: Carolina Mcgee on 09-26-2024 MCV (RBC) [Entitic vol] 103.1 fL High 80-94 [facility] Mean corpuscular hemoglobin (MCH) determinationOrdered By: Carolina Mcgee on 09-26-2024 MCH (RBC) [Entitic mass] 34.4 pg High 27.0-32.0 [facility] Mean corpuscular hemoglobin concentration (MCHC) determinationOrdered By: Carolina Mcgee on 09-26-2024 MCHC (RBC) [Mass/Vol] 33.3 g/dL 32-36 [facility] Mean platelet volume determi nationOrdered By: Vaishnavilivan Mcgee on 09-26-2024 Platelet mean volume (Bld) [Entitic vol] 9.2 fL 6.2-12.0 [facility] Monocyte percentageOrdered B y: Carolina Mcgee on 09-26-2024 Monocytes/100 WBC (Bld) 8.8 % 0-10 [facility] Neutrophil percentageOrdered By: Carolina Mcgee on 09-26-2024 Neutrophils/100 WBC (Bld) 40.6 % Low 47-70 [facility] Nucleated red blood cell per centageOrdered By: [facility] on 09-26-2024 Nucleated RBC/100 WBC (Bld) [Ratio] 0 % 0-5 [facility] Oncology Visit Reporton Oncology Visit Report Normal [facility] PSA,Total- Diagnosticon PSA, DIAGNOSTIC < 0.02 Normal 0.00-4.00 [facility] Comment on above: Result Comment: This test was performed using the [employer] tPSAmethod. Measured values of a patient??sample can varydepending on the testing procedure used. PSA valuesdetermined on patient samples by different testingprocedures cannot be used interchangeably. If there is achange in PSA assays while monitoring therapy, sequentialtesting should be performed to confirm baseline values. Performed By: #### L 100.0100, L501.9940, L500.4050 ####[facility] [address] [place], [address] Platelet countOrdered By: Sánchez Mcgee on 09-26-2024 Platelets (Bld) [#/Vol] 175 10*3/uL 150-450 [facility] Potassium measurement (mass/ volume)Ordered By: Carolina Mcgee on 09-26-2024 Potassium (Unsp spec) [Mass/Vol] 4.2 mmol/L 3.3-5.1 [facility] RBC Auto (Bld) [#/Vol]Ordere d By: Carolina Mcgee on 09-26-2024 RBC (Bld) [#/Vol] 3.90 10*6/uL Low 4.6-6.2 [facility] Serum creatinine measurement (mass/volume)Ordered By: Carolina Mcgee on 09-26-2024 Creatinine [Mass/Vol] 1.05 mg/dL 0.70-1.20 [facility] Serum globulin measurementOr dered By: Carolina Mcgee on 09-26-2024 Globulin (S) [Mass/Vol] 3.0 g/dL 2.2-4.2 [facility] Serum glucose measurement (m ass/volume)Ordered By: Carolina Mcgee on 09-26-2024 Glucose [Mass/Vol] 121 mg/dL High 70-99 [facility] Serum or plasma alanine rausch otransferase (ALT) measurementOrdered By: Carolina Mcgee on 09-26-2024 ALT [Catalytic activity/Vol] U/L <47 [facility] Serum or plasma albumin patricia urement (mass/volume)Ordered By: Carolina Mcgee on 09-26-2024 Albumin [Mass/Vol] 3.7 g/dL 3.4-4.8 [facility] Serum or plasma albumin/glob ulin mass ratioOrdered By: Carolina Mcgee on 09-26-2024 Albumin/Globulin [Mass ratio] 1.2 {ratio} 0.9-2.4 [facility] Serum or plasma alkaline martín sphatase measurementOrdered By: Carolina Mcgee on 09-26-2024 ALP [Catalytic activity/Vol] 52 U/L 40-129 [facility] Serum or plasma calcium patricia urement (mass/volume)Ordered By: Carolina Mcgee on 09-26-2024 Calcium [Mass/Vol] 9.0 mg/dL 7.6-11.0 [facility] Serum or plasma urea nitroge n measurement (mass/volume)Ordered By: Carolina Mcgee on 09-26-2024 Urea nitrogen [Mass/Vol] 25 mg/dL High 4-19 [facility] Sodium levelOrdered By: Vaishnavi Mcgee on 09-26-2024 Sodium [Moles/Vol] 143 mmol/L 133-145 [facility] Total proteinOrdered By: Graham Mcgee on 09-26-2024 Protein [Mass/Vol] 6.8 g/dL 5.9-8.4 [facility] White blood cell (WBC) count Ordered By: Carolina Mcgee on 09-26-2024 WBC (Bld) [#/Vol] 5.0 10*3/uL 4.4-11.0 [facility] Cardiology Visit Reporton Cardiology Visit Report Normal [facility] CBC W/Diff, Automatedon 07-23 Absolute Lymph 2.43 X10 3/uL Normal 0.83-4.51 [facility] Comment on above: Performed By: #### L 500.4050, L100.0100, L501.9940 ####[facility] [address] [place], [address] Absolute Neut 2.2 X10 3/uL Normal 2.0-7.7 [facility] Comment on above: Performed By: #### L 500.4050, L100.0100, L501.9940 ####[facility] [address] [place], [address] Basophils/100 WBC (Bld) 0.6 % Normal 0-1 [facility] Comment on above: Performed By: #### L 500.4050, L100.0100, L501.9940 ####[facility] [address] [place], [address] Eosinophils/100 WBC (Bld) 1.9 % Normal 0-5 [facility] Comment on above: Performed By: #### L 500.4050, L100.0100, L501.9940 ####[facility] [address] [place], [address] Erythrocyte distribution width (RBC) [Ratio] 13.5 % Normal 11.6-14.6 [facility] Comment on above: Performed By: #### L 500.4050, L100.0100, L501.9940 ####[facility] [address] [place], [address] Hematocrit (Bld) [Volume fraction] 41.1 % Normal 40-54 [facility] Comment on above: Performed By: #### L 500.4050, L100.0100, L501.9940 ####[facility] [address] [place], [address] Hemoglobin (Bld) [Mass/Vol] 14.0 g/dL Normal 13.0-16.5 [facility] Comment on above: Performed By: #### L 500.4050, L100.0100, L501.9940 ####[facility] [address] [place], [address] IG% 0.600 Normal 0.0-0.9 [facility] Comment on above: Result Comment: IG% - Immature Granulocytes (promyelocytes, myelocytes andmetamyelocytes) > 1% indicates that a LEFT SHIFT is Present. Performed By: #### L 500.4050, L100.0100, L501.9940 ####[facility] [address] [place], [address] Lymphocytes/100 WBC (Bld) 46.3 % High 19-41 [facility] Comment on above: Performed By: #### L 500.4050, L100.0100, L501.9940 ####[facility] [address] [place], [address] MCH (RBC) [Entitic mass] 34.4 pg High 27.0-32.0 [facility] Comment on above: Performed By: #### L 500.4050, L100.0100, L501.9940 ####[facility] [address] [place], [address] MCHC (RBC) [Mass/Vol] 34.1 g/dL Normal 32-36 [facility] Comment on above: Performed By: #### L 500.4050, L100.0100, L501.9940 ####[facility] [address] [place], [address] MCV (RBC) [Entitic vol] 101.0 fL High 80-94 [facility] Comment on above: Performed By: #### L 500.4050, L100.0100, L501.9940 ####[facility] [address] [place], [address] Monocytes/100 WBC (Bld) 8.8 % Normal 0-10 [facility] Comment on above: Performed By: #### L 500.4050, L100.0100, L501.9940 ####[facility] [address] [place], [address] Neutrophils/100 WBC (Bld) 41.8 % Low 47-70 [facility] Comment on above: Performed By: #### L 500.4050, L100.0100, L501.9940 ####[facility] [address] [place], [address] Nucleated RBC (Bld) [#/Vol] 0 10*3/uL Normal 0-5 [facility] Comment on above: Performed By: #### L 500.4050, L100.0100, L501.9940 ####[facility] [address] [place], [address] Platelet mean volume (Bld) [Entitic vol] 9.2 fL Normal 6.2-12.0 [facility] Comment on above: Performed By: #### L 500.4050, L100.0100, L501.9940 ####[facility] [address] [place], [address] Platelets (Bld) [#/Vol] 167 10*3/uL Normal 150-450 [facility] Comment on above: Performed By: #### L 500.4050, L100.0100, L501.9940 ####[facility] [address] [place], [address] RBC (Bld) [#/Vol] 4.07 10*6/uL Low 4.6-6.2 [facility] Comment on above: Performed By: #### L 500.4050, L100.0100, L501.9940 ####[facility] [address] [place], [address] RDW SD 50.0 fl High 35.1-43.9 [facility] Comment on above: Performed By: #### L 500.4050, L100.0100, L501.9940 ####[facility] [address] [place], [address] WBC (Bld) [#/Vol] 5.3 10*3/uL Normal 4.4-11.0 [facility] Comment on above: Performed By: #### L 500.4050, L100.0100, L501.9940 ####[facility] [address] [place], [address] Comprehensive Metabolic Prof ilon 08-15-2024 BUN/CRE 20.9 RATIO High 10-20 [facility] Comment on above: Performed By: #### L 500.4050, L100.0100, L501.9940 ####[facility] [address] [place], [address] Urea nitrogen [Mass/Vol] 19 mg/dL Normal 4-19 [facility] Comment on above: Performed By: #### L 500.4050, L100.0100, L501.9940 ####[facility] [address] [place], [address] Oncology Visit Reporton 07-23 Oncology Visit Report Normal [facility] PSA,Total- Diagnosticon 07-23 PSA, DIAGNOSTIC < 0.02 Normal 0.00-4.00 [facility] Comment on above: Result Comment: This test was performed using the [employer] tPSAmethod. Measured values of a patient??sample can varydepending on the testing procedure used. PSA valuesdetermined on patient samples by different testingprocedures cannot be used interchangeably. If there is achange in PSA assays while monitoring therapy, sequentialtesting should be performed to confirm baseline values. Performed By: #### L 500.4050, L100.0100, L501.9940 ####[facility] [address] [place], [place], [id number] Bone Scan Whole Bodyon 08-07 Bone Scan Whole Body Normal [facility] Absolute neutrophil countOrd ered By: Rachael Posada on 07-04-2024 Neutrophils (Bld) [#/Vol] 2.5 10*3/uL 2.0-7.7 [facility] Albumin to globulin ratioOrd ered By: Rachael Posada on 07-04-2024 Albumin/Globulin [Mass ratio] 0.8 {ratio} Low 0.9-2.4 [facility] Basophil percentageOrdered B y: Rachael Posada on 07-04-2024 Basophils/100 WBC (Bld) 0.3 % 0-1 [facility] Bilirubin, totalOrdered By: Rachael Posada on 07-04-2024 Bilirubin [Mass/Vol] 0.60 mg/dL 0.20-1.00 [facility] Comment on above: For patients on eltr ombopag therapy, use of [employer] [place] TBIL is not recommended. Blood urea nitrogen (BUN)/cr eatinine ratioOrdered By: Rachael Posada on 07-04-2024 Urea nitrogen/Creatinine [Mass ratio] 17.5 mg/mg 10-20 [facility] CBC W/Diff, Automatedon 06-24 Absolute Lymph 2.73 X10 3/uL Normal 0.83-4.51 [facility] Comment on above: Performed By: #### L 100.0100, L500.4050, L501.9940 ####[facility] [address] [place], [address] Absolute Neut 2.5 X10 3/uL Normal 2.0-7.7 [facility] Comment on above: Performed By: #### L 100.0100, L500.4050, L501.9940 ####[facility] [address] [place], [address] Basophils/100 WBC (Bld) 0.3 % Normal 0-1 [facility] Comment on above: Performed By: #### L 100.0100, L500.4050, L501.9940 ####[facility] [address] [place], [address] Eosinophils/100 WBC (Bld) 1.2 % Normal 0-5 [facility] Comment on above: Performed By: #### L 100.0100, L500.4050, L501.9940 ####[facility] [address] [place], [address] Erythrocyte distribution width (RBC) [Ratio] 13.6 % Normal 11.6-14.6 [facility] Comment on above: Performed By: #### L 100.0100, L500.4050, L501.9940 ####[facility] [address] [place], [address] Hematocrit (Bld) [Volume fraction] 41.3 % Normal 40-54 [facility] Comment on above: Performed By: #### L 100.0100, L500.4050, L501.9940 ####[facility] [address] [place], [address] Hemoglobin (Bld) [Mass/Vol] 13.5 g/dL Normal 13.0-16.5 [facility] Comment on above: Performed By: #### L 100.0100, L500.4050, L501.9940 ####[facility] [address] [place], [address] IG% 0.300 Normal 0.0-0.9 [facility] Comment on above: Result Comment: IG% - Immature Granulocytes (promyelocytes, myelocytes andmetamyelocytes) > 1% indicates that a LEFT SHIFT is Present. Performed By: #### L 100.0100, L500.4050, L501.9940 ####[facility] [address] [place], [address] Lymphocytes/100 WBC (Bld) 47.7 % High 19-41 [facility] Comment on above: Performed By: #### L 100.0100, L500.4050, L501.9940 ####[facility] [address] [place], [address] MCH (RBC) [Entitic mass] 33.8 pg High 27.0-32.0 [facility] Comment on above: Performed By: #### L 100.0100, L500.4050, L501.9940 ####[facility] [address] [place], [address] MCHC (RBC) [Mass/Vol] 32.7 g/dL Normal 32-36 [facility] Comment on above: Performed By: #### L 100.0100, L500.4050, L501.9940 ####[facility] [address] [place], [address] MCV (RBC) [Entitic vol] 103.3 fL High 80-94 [facility] Comment on above: Performed By: #### L 100.0100, L500.4050, L501.9940 ####[facility] [address] [place], [address] Monocytes/100 WBC (Bld) 7.3 % Normal 0-10 [facility] Comment on above: Performed By: #### L 100.0100, L500.4050, L501.9940 ####[facility] [address] [place], [address] Neutrophils/100 WBC (Bld) 43.2 % Low 47-70 [facility] Comment on above: Performed By: #### L 100.0100, L500.4050, L501.9940 ####[facility] [address] [place], [address] Nucleated RBC (Bld) [#/Vol] 0 10*3/uL Normal 0-5 [facility] Comment on above: Performed By: #### L 100.0100, L500.4050, L501.9940 ####[facility] [address] [place], [address] Platelet mean volume (Bld) [Entitic vol] 9.2 fL Normal 6.2-12.0 [facility] Comment on above: Performed By: #### L 100.0100, L500.4050, L501.9940 ####[facility] [address] [place], [address] Platelets (Bld) [#/Vol] 161 10*3/uL Normal 150-450 [facility] Comment on above: Performed By: #### L 100.0100, L500.4050, L501.9940 ####[facility] [address] [place], [address] RBC (Bld) [#/Vol] 4.00 10*6/uL Low 4.6-6.2 [facility] Comment on above: Performed By: #### L 100.0100, L500.4050, L501.9940 ####[facility] [address] [place], [address] RDW SD 51.8 fl High 35.1-43.9 [facility] Comment on above: Performed By: #### L 100.0100, L500.4050, L501.9940 ####[facility] [address] [place], [address] WBC (Bld) [#/Vol] 5.7 10*3/uL Normal 4.4-11.0 [facility] Comment on above: Performed By: #### L 100.0100, L500.4050, L501.9940 ####[facility] [address] [place], [address] Carbon dioxide measurementOr dered By: Rachael Posada on 07-04-2024 CO2 [Moles/Vol] 28.0 mmol/L 21.0-32.0 [facility] Chloride measurementOrdered By: Rachael Posada on 07-04-2024 Chloride [Moles/Vol] 112 mmol/L High 98-107 [facility] Comprehensive Metabolic Prof ilon 07-04-2024 Albumin [Mass/Vol] 3.2 g/dL Normal 3.2-5.0 [facility] Comment on above: Performed By: #### L 100.0100, L500.4050, L501.9940 ####[facility] [address] [place], [address] Albumin/Globulin [Mass ratio] 0.8 {ratio} Low 0.9-2.4 [facility] Comment on above: Performed By: #### L 100.0100, L500.4050, L501.9940 ####[facility] [address] [place], [address] ALK P 51 U/L Normal 45-117 [facility] Comment on above: Performed By: #### L 100.0100, L500.4050, L501.9940 ####[facility] [address] [place], [address] ALT [Catalytic activity/Vol] 13 U/L Low 16-61 [facility] Comment on above: Performed By: #### L 100.0100, L500.4050, L501.9940 ####[facility] [address] [place], [address] AST [Catalytic activity/Vol] 15 U/L Normal 15-37 [facility] Comment on above: Performed By: #### L 100.0100, L500.4050, L501.9940 ####[facility] [address] [place], [address] Bilirubin [Mass/Vol] 0.60 mg/dL Normal 0.20-1.00 [facility] Comment on above: Result Comment: For patients on eltrombopag therapy, use of [employer] [place] TBIL is not recommended. Performed By: #### L 100.0100, L500.4050, L501.9940 ####[facility] [address] [place], [address] BUN/CRE 17.5 RATIO Normal 10-20 [facility] Comment on above: Performed By: #### L 100.0100, L500.4050, L501.9940 ####[facility] [address] [place], [address] CA,Total 8.8 mg/dL Normal 8.5-10.1 [facility] Comment on above: Performed By: #### L 100.0100, L500.4050, L501.9940 ####[facility] [address] [place], [address] Chloride [Moles/Vol] 112 mmol/L High 98-107 [facility] Comment on above: Performed By: #### L 100.0100, L500.4050, L501.9940 ####[facility] [address] [place], [address] CO2 [Moles/Vol] 28.0 mmol/L Normal 21.0-32.0 [facility] Comment on above: Performed By: #### L 100.0100, L500.4050, L501.9940 ####[facility] [address] [place], [address] Creatinine [Mass/Vol] 1.14 mg/dL Normal 0.70-1.30 [facility] Comment on above: Result Comment: The validity of the calculated GFR GFRAA in patients over70 years has not been determined. Clinical correlation isessential. Performed By: #### L 100.0100, L500.4050, L501.9940 ####[facility] [address] [place], [address] ECRCL 47.14 ml/min Normal [facility] Comment on above: Performed By: #### L 100.0100, L500.4050, L501.9940 ####[facility] [address] [place], [address] EST GFR - AA 78 mL/min Normal >60 [facility] Comment on above: Result Comment: Afri can [place] GFR Calc Performed By: #### L 100.0100, L500.4050, L501.9940 ####[facility] [address] [place], [address] GAP 5 Normal 5-15 [facility] Comment on above: Performed By: #### L 100.0100, L500.4050, L501.9940 ####[facility] [address] [place], [address] GFR/1.73 sq M.predicted among non-blacks MDRD (S/P/Bld) [Vol rate/Area] 65 mL/min/{1.73_m2} Normal >60 [facility] Comment on above: Result Comment: Non- GFR Calc Performed By: #### L 100.0100, L500.4050, L501.9940 ####[facility] [address] [place], [address] Globulin (S) [Mass/Vol] 3.8 g/dL Normal 2.2-4.2 [facility] Comment on above: Performed By: #### L 100.0100, L500.4050, L501.9940 ####[facility] [address] [place], [address] Glucose [Mass/Vol] 107 mg/dL High 74-106 [facility] Comment on above: Result Comment: Fast ing Glucose result from 100 to 125 mg/dLsuggests IMPAIRED HOMEOSTASIS per A.D.A. criteria. Performed By: #### L 100.0100, L500.4050, L501.9940 ####[facility] [address] [place], [address] Potassium [Moles/Vol] 3.9 mmol/L Normal 3.5-5.1 [facility] Comment on above: Performed By: #### L 100.0100, L500.4050, L501.9940 ####[facility] [address] [place], [address] Sodium [Moles/Vol] 146 mmol/L High 136-145 [facility] Comment on above: Performed By: #### L 100.0100, L500.4050, L501.9940 ####[facility] [address] [place], [address] T PROT 7.0 g/dL Normal 6.4-8.2 [facility] Comment on above: Performed By: #### L 100.0100, L500.4050, L501.9940 ####[facility] [address] [place], [address] Urea nitrogen [Mass/Vol] 20 mg/dL High 7-18 [facility] Comment on above: Performed By: #### L 100.0100, L500.4050, L501.9940 ####[facility] [address] [place], [address] Diagnostic total prostate sp ecific antigen (PSA) measurementOrdered By: Rachael Posada on 07-04-2024 Prostate Specific Antigen Total 0.02 ng/mL 0.0-4.0 [facility] Comment on above: This test was perfor med using the TPSA assay method for [employer] chemistry system. Values obtained with differentassay methods cannot be used interchangably.When changing PSA assays in the course of monitoring apatient, additional sequential testing should be carriedout to confirm baseline values. Eosinophil percentageOrdered By: Rachael Posada on 07-04-2024 Eosinophils/100 WBC (Bld) 1.2 % 0-5 [facility] Erythrocyte distribution wid th ratioOrdered By: Rachael Posada on 07-04-2024 Erythrocyte distribution width (RBC) [Ratio] 13.6 % 11.6-14.6 [facility] Erythrocyte distribution wid th standard deviationOrdered By: Rachael Posada on 07-04-2024 Erythrocyte distribution width (RBC) [Entitic vol] 51.8 fL High 35.1-43.9 [facility] Estimated glomerular filtrat ion rate (GFR) AmericanOrdered By: Rachael Posada on 07-04-2024 Estimated GFR (MDRD) Amer 78 mL/min >60 [facility] Comment on above: GFR Calc Estimation of creatinine lenora aranceOrdered By: Rachael Posada on 07-04-2024 Estimated Creatinine Clearance Calc 47.14 ml/min [facility] Glomerular filtration rate ( GFR) estimationOrdered By: Rachael Posada on 07-04-2024 Estimated GFR (MDRD) Non-Af Amer 65 mL/min >60 [facility] Comment on above: Non- GFR Calc Glucose measurementOrdered B y: Rachael Posada on 07-04-2024 Glucose [Mass/Vol] 107 mg/dL High 74-106 [facility] Comment on above: Fasting Glucose resu lt from 100 to 125 mg/dL suggests IMPAIRED HOMEOSTASIS per A.D.A. criteria. Hematocrit Auto (Bld) [Volum e fraction]Ordered By: Rachael Psoada on 07-04-2024 Hematocrit (Bld) [Volume fraction] 41.3 % 40-54 [facility] Hemoglobin measurementOrdere d By: Rachael Posada on 07-04-2024 Hemoglobin (Bld) [Mass/Vol] 13.5 g/dL 13.0-16.5 [facility] Immature granulocytes/100 WB C Auto (Bld)Ordered By: Rachael Posada on 07-04-2024 Immature granulocytes/100 WBC (Bld) 0.300 % 0.0-0.9 [facility] Comment on above: IG% - Immature Granu locytes (promyelocytes, myelocytes and metamyelocytes) > 1% indicates that a LEFT SHIFT is Present. Laboratory - Chemistry and C hemistry - challengeOrdered By: Rachael Posada on 07-04-2024 AST [Catalytic activity/Vol] 15 U/L 15-37 [facility] Lymphocytes Auto (Unsp spec) [#/Vol]Ordered By: Rachael Posada on 07-04-2024 Lymphocytes (Bld) [#/Vol] 2.73 10*3/uL 0.83-4.51 [facility] Lymphocytes/100 WBC Auto (Un sp spec)Ordered By: Rachael Posada on 07-04-2024 Lymphocytes/100 WBC (Bld) 47.7 % High 19-41 [facility] MCV (mean corpuscular volume ) determinationOrdered By: Rachael Posada on 07-04-2024 MCV (RBC) [Entitic vol] 103.3 fL High 80-94 [facility] Mean corpuscular hemoglobin (MCH) determinationOrdered By: Rachael Posada on 07-04-2024 MCH (RBC) [Entitic mass] 33.8 pg High 27.0-32.0 [facility] Mean corpuscular hemoglobin concentration (MCHC) determinationOrdered By: Rachael Posada on 07-04-2024 MCHC (RBC) [Mass/Vol] 32.7 g/dL 32-36 [facility] Mean platelet volume determi nationOrdered By: Rachael Posada on 07-04-2024 Platelet mean volume (Bld) [Entitic vol] 9.2 fL 6.2-12.0 [facility] Monocyte percentageOrdered B y: Rachael Posada on 07-04-2024 Monocytes/100 WBC (Bld) 7.3 % 0-10 [facility] Neutrophil percentageOrdered By: Rachael Posada on 07-04-2024 Neutrophils/100 WBC (Bld) 43.2 % Low 47-70 [facility] Nucleated red blood cell per centageOrdered By: Rachael Posada on 07-04-2024 Nucleated RBC/100 WBC (Bld) [Ratio] 0 % 0-5 [facility] Oncology Visit Reporton 06-24 Oncology Visit Report Normal [facility] PSA,Total- Diagnosticon 06-24 PSA, DIAGNOSTIC 0.02 ng/mL Normal 0.0-4.0 [facility] Comment on above: Result Comment: This test was performed using the TPSA assay method for theAmplify.LA chemistry system. Values obtained with differentassay methods cannot be used interchangably.When changing PSA assays in the course of monitoring apatient, additional sequential testing should be carriedout to confirm baseline values. Performed By: #### L 100.0100, L500.4050, L501.9940 ####[facility] [address] [place], [address] Platelet countOrdered By: Ty ra Posada on 07-04-2024 Platelets (Bld) [#/Vol] 161 10*3/uL 150-450 [facility] Potassium measurementOrdered By: Rachael Posada on 07-04-2024 Potassium [Moles/Vol] 3.9 mmol/L 3.5-5.1 [facility] RBC Auto (Bld) [#/Vol]Ordere d By: Rachael McclellanAlbino on 07-04-2024 RBC (Bld) [#/Vol] 4.00 10*6/uL Low 4.6-6.2 [facility] Serum anion gap measurementO rdered By: Rachael McclellanAlbino on 07-04-2024 Anion gap [Moles/Vol] 5 mmol/L 5-15 [facility] Serum globulin measurementOr dered By: Rachael McclellanAlbino on 07-04-2024 Globulin (S) [Mass/Vol] 3.8 g/dL 2.2-4.2 [facility] Serum or plasma alanine rausch otransferase (ALT) measurementOrdered By: Rachael Posada on 07-04-2024 ALT [Catalytic activity/Vol] 13 U/L Low 16-61 [facility] Serum or plasma albumin patricia urement (mass/volume)Ordered By: Rachael Posada on 07-04-2024 Albumin [Mass/Vol] 3.2 g/dL 3.2-5.0 [facility] Serum or plasma alkaline martín sphatase measurementOrdered By: Rachael Posada on 07-04-2024 ALP [Catalytic activity/Vol] 51 U/L 45-117 [facility] Serum or plasma calcium patricia urement (mass/volume)Ordered By: Rachael Posada on 07-04-2024 Calcium [Mass/Vol] 8.8 mg/dL 8.5-10.1 [facility] Serum or plasma creatinine m easurement (mass/volume)Ordered By: Rachael Posada on 07-04-2024 Creatinine [Mass/Vol] 1.14 mg/dL 0.70-1.30 [facility] Comment on above: The validity of the calculated GFR & GFRAA in patients over 70 years has not been determined. Clinical correlation is essential. Serum or plasma urea nitroge n measurement (mass/volume)Ordered By: Rachael Posada on 07-04-2024 Urea nitrogen [Mass/Vol] 20 mg/dL High 7-18 [facility] Sodium levelOrdered By: Rachael Posada on 07-04-2024 Sodium [Moles/Vol] 146 mmol/L High 136-145 [facility] Total proteinOrdered By: Mert Posada on 07-04-2024 Protein [Mass/Vol] 7.0 g/dL 6.4-8.2 [facility] White blood cell (WBC) count Ordered By: Rachael Posada on 07-04-2024 WBC (Bld) [#/Vol] 5.7 10*3/uL 4.4-11.0 [facility] Emergency Department Summary on 06-03-2024 Emergency Department Summary Normal [facility] CBC W/Diff, Automatedon 12-3 Absolute Lymph 2.24 X10 3/uL Normal 0.83-4.51 [facility] Comment on above: Performed By: #### L 501.9940, L500.4050, L100.0100 ####[facility] [address] [place], [address] Absolute Neut 2.1 X10 3/uL Normal 2.0-7.7 [facility] Comment on above: Performed By: #### L 501.9940, L500.4050, L100.0100 ####[facility] [address] [place], [address] Basophils/100 WBC (Bld) 0.8 % Normal 0-1 [facility] Comment on above: Performed By: #### L 501.9940, L500.4050, L100.0100 ####[facility] [address] [place], [address] Eosinophils/100 WBC (Bld) 3.8 % Normal 0-5 [facility] Comment on above: Performed By: #### L 501.9940, L500.4050, L100.0100 ####[facility] [address] [place], [address] Erythrocyte distribution width (RBC) [Ratio] 12.9 % Normal 11.6-14.6 [facility] Comment on above: Performed By: #### L 501.9940, L500.4050, L100.0100 ####[facility] [address] [place], [address] Hematocrit (Bld) [Volume fraction] 43.7 % Normal 40-54 [facility] Comment on above: Performed By: #### L 501.9940, L500.4050, L100.0100 ####[facility] [address] [place], [address] Hemoglobin (Bld) [Mass/Vol] 14.6 g/dL Normal 13.0-16.5 [facility] Comment on above: Performed By: #### L 501.9940, L500.4050, L100.0100 ####[facility] [address] [place], [address] IG% 0.800 Normal 0.0-0.9 [facility] Comment on above: Result Comment: IG% - Immature Granulocytes (promyelocytes, myelocytes andmetamyelocytes) > 1% indicates that a LEFT SHIFT is Present. Performed By: #### L 501.9940, L500.4050, L100.0100 ####[facility] [address] [place], [address] Lymphocytes/100 WBC (Bld) 44.8 % High 19-41 [facility] Comment on above: Performed By: #### L 501.9940, L500.4050, L100.0100 ####[facility] [address] [place], [address] MCH (RBC) [Entitic mass] 33.9 pg High 27.0-32.0 [facility] Comment on above: Performed By: #### L 501.9940, L500.4050, L100.0100 ####[facility] [address] [place], [address] MCHC (RBC) [Mass/Vol] 33.4 g/dL Normal 32-36 [facility] Comment on above: Performed By: #### L 501.9940, L500.4050, L100.0100 ####[facility] [address] [place], [address] MCV (RBC) [Entitic vol] 101.4 fL High 80-94 [facility] Comment on above: Performed By: #### L 501.9940, L500.4050, L100.0100 ####[facility] [address] [place], [address] Monocytes/100 WBC (Bld) 8.2 % Normal 0-10 [facility] Comment on above: Performed By: #### L 501.9940, L500.4050, L100.0100 ####[facility] [address] [place], [address] Neutrophils/100 WBC (Bld) 41.6 % Low 47-70 [facility] Comment on above: Performed By: #### L 501.9940, L500.4050, L100.0100 ####[facility] [address] [place], [address] Nucleated RBC (Bld) [#/Vol] 0 10*3/uL Normal 0-5 [facility] Comment on above: Performed By: #### L 501.9940, L500.4050, L100.0100 ####[facility] [address] [place], [address] Platelet mean volume (Bld) [Entitic vol] 9.2 fL Normal 6.2-12.0 [facility] Comment on above: Performed By: #### L 501.9940, L500.4050, L100.0100 ####[facility] [address] [place], [address] Platelets (Bld) [#/Vol] 207 10*3/uL Normal 150-450 [facility] Comment on above: Performed By: #### L 501.9940, L500.4050, L100.0100 ####[facility] [address] [place], [address] RBC (Bld) [#/Vol] 4.31 10*6/uL Low 4.6-6.2 [facility] Comment on above: Performed By: #### L 501.9940, L500.4050, L100.0100 ####[facility] [address] [place], [address] RDW SD 48.8 fl High 35.1-43.9 [facility] Comment on above: Performed By: #### L 501.9940, L500.4050, L100.0100 ####[facility] [address] [place], [address] WBC (Bld) [#/Vol] 5.0 10*3/uL Normal 4.4-11.0 [facility] Comment on above: Performed By: #### L 501.9940, L500.4050, L100.0100 ####[facility] [address] [place], [address] Comprehensive Metabolic [facility] ilon 05-23-2024 Albumin [Mass/Vol] 3.1 g/dL Low 3.2-5.0 [facility] Comment on above: Performed By: #### L 501.9940, L500.4050, L100.0100 ####[facility] [address] [place], [address] Albumin/Globulin [Mass ratio] 0.7 {ratio} Low 0.9-2.4 [facility] Comment on above: Performed By: #### L 501.9940, L500.4050, L100.0100 ####[facility] [address] [place], [address] ALK P 61 U/L Normal 45-117 [facility] Comment on above: Performed By: #### L 501.9940, L500.4050, L100.0100 ####[facility] [address] [place], [address] ALT [Catalytic activity/Vol] 9 U/L Low 16-61 [facility] Comment on above: Performed By: #### L 501.9940, L500.4050, L100.0100 ####[facility] [address] [place], [address] AST [Catalytic activity/Vol] 10 U/L Low 15-37 [facility] Comment on above: Performed By: #### L 501.9940, L500.4050, L100.0100 ####[facility] [address] [place], [address] Bilirubin [Mass/Vol] 0.80 mg/dL Normal 0.20-1.00 [facility] Comment on above: Result Comment: For patients on eltrombopag therapy, use of Dimension [place] TBIL is not recommended. Performed By: #### L 501.9940, L500.4050, L100.0100 ####[facility] [address] [place], [address] BUN/CRE 19.3 RATIO Normal 10-20 [facility] Comment on above: Performed By: #### L 501.9940, L500.4050, L100.0100 ####[facility] [address] [place], [address] CA,Total 8.7 mg/dL Normal 8.5-10.1 [facility] Comment on above: Performed By: #### L 501.9940, L500.4050, L100.0100 ####[facility] [address] [place], [address] Chloride [Moles/Vol] 111 mmol/L High 98-107 [facility] Comment on above: Performed By: #### L 501.9940, L500.4050, L100.0100 ####[facility] [address] [place], [address] CO2 [Moles/Vol] 27.0 mmol/L Normal 21.0-32.0 [facility] Comment on above: Performed By: #### L 501.9940, L500.4050, L100.0100 ####[facility] [address] [place], [address] Creatinine [Mass/Vol] 0.99 mg/dL Normal 0.70-1.30 [facility] Comment on above: Result Comment: The validity of the calculated GFR GFRAA in patients over70 years has not been determined. Clinical correlation isessential. Performed By: #### L 501.9940, L500.4050, L100.0100 ####[facility] [address] [place], [address] ECRCL 54.28 ml/min Normal [facility] Comment on above: Performed By: #### L 501.9940, L500.4050, L100.0100 ####[facility] [address] [place], [address] EST GFR - AA 92 mL/min Normal >60 [facility] Comment on above: Result Comment: Afri can [place] GFR Calc Performed By: #### L 501.9940, L500.4050, L100.0100 ####[facility] [address] [place], [address] GAP 6 Normal 5-15 [facility] Comment on above: Performed By: #### L 501.9940, L500.4050, L100.0100 ####[facility] [address] [place], [address] GFR/1.73 sq M.predicted among non-blacks MDRD (S/P/Bld) [Vol rate/Area] 76 mL/min/{1.73_m2} Normal >60 [facility] Comment on above: Result Comment: Non- GFR Calc Performed By: #### L 501.9940, L500.4050, L100.0100 ####[facility] [address] [place], [address] Globulin (S) [Mass/Vol] 4.2 g/dL Normal 2.2-4.2 [facility] Comment on above: Performed By: #### L 501.9940, L500.4050, L100.0100 ####[facility] [address] [place], [address] Glucose [Mass/Vol] 121 mg/dL High 74-106 [facility] Comment on above: Result Comment: Fast ing Glucose result from 100 to 125 mg/dLsuggests IMPAIRED HOMEOSTASIS per A.D.A. criteria. Performed By: #### L 501.9940, L500.4050, L100.0100 ####[facility] [address] [place], [address] Potassium [Moles/Vol] 3.8 mmol/L Normal 3.5-5.1 [facility] Comment on above: Performed By: #### L 501.9940, L500.4050, L100.0100 ####[facility] [address] [place], [address] Sodium [Moles/Vol] 144 mmol/L Normal 136-145 [facility] Comment on above: Performed By: #### L 501.9940, L500.4050, L100.0100 ####[facility] [address] [place], [address] T PROT 7.3 g/dL Normal 6.4-8.2 [facility] Comment on above: Performed By: #### L 501.9940, L500.4050, L100.0100 ####[facility] [address] [place], [address] Urea nitrogen [Mass/Vol] 19 mg/dL High 7-18 [facility] Comment on above: Performed By: #### L 501.9940, L500.4050, L100.0100 ####[facility] [address] [place], [address] Oncology Visit Reporton 04-25 Oncology Visit Report Normal [facility] PSA,Total- Diagnosticon 04-25 PSA, DIAGNOSTIC 0.03 ng/mL Normal 0.0-4.0 [facility] Comment on above: Result Comment: This test was performed using the TPSA assay method for Miraculins chemistry system. Values obtained with differentassay methods cannot be used interchangably.When changing PSA assays in the course of monitoring apatient, additional sequential testing should be carriedout to confirm baseline values. Performed By: #### L 501.9940, L500.4050, L100.0100 ####[facility] [address] [place], [address] Internal Medicine Office Vis iton 04-26-2024 Internal Medicine Office Visit Normal [facility] Laboratory - Hematology and Cell countson 04-26-2024 HbA1c (Bld) [Mass fraction] 5.7 % 4.2-6.3 [facility] CBC W/Diff, Automatedon 03-24 Absolute Lymph 2.41 X10 3/uL Normal 0.83-4.51 [facility] Comment on above: Performed By: #### L 500.4050, L100.0100, L501.9940 ####[facility] [address] [place], [address] Absolute Neut 2.1 X10 3/uL Normal 2.0-7.7 [facility] Comment on above: Performed By: #### L 500.4050, L100.0100, L501.9940 ####[facility] [address] [place], [address] Basophils/100 WBC (Bld) 0.4 % Normal 0-1 [facility] Comment on above: Performed By: #### L 500.4050, L100.0100, L501.9940 ####[facility] [address] [place], [address] Eosinophils/100 WBC (Bld) 1.4 % Normal 0-5 [facility] Comment on above: Performed By: #### L 500.4050, L100.0100, L501.9940 ####[facility] [address] [place], [address] Erythrocyte distribution width (RBC) [Ratio] 13.1 % Normal 11.6-14.6 [facility] Comment on above: Performed By: #### L 500.4050, L100.0100, L501.9940 ####[facility] [address] [place], [address] Hematocrit (Bld) [Volume fraction] 42.6 % Normal 40-54 [facility] Comment on above: Performed By: #### L 500.4050, L100.0100, L501.9940 ####[facility] [address] [place], [address] Hemoglobin (Bld) [Mass/Vol] 14.3 g/dL Normal 13.0-16.5 [facility] Comment on above: Performed By: #### L 500.4050, L100.0100, L501.9940 ####[facility] [address] [place], [address] IG% 0.200 Normal 0.0-0.9 [facility] Comment on above: Result Comment: IG% - Immature Granulocytes (promyelocytes, myelocytes andmetamyelocytes) > 1% indicates that a LEFT SHIFT is Present. Performed By: #### L 500.4050, L100.0100, L501.9940 ####[facility] [address] [place], [address] Lymphocytes/100 WBC (Bld) 48.0 % High 19-41 [facility] Comment on above: Performed By: #### L 500.4050, L100.0100, L501.9940 ####[facility] [address] [place], [address] MCH (RBC) [Entitic mass] 34.5 pg High 27.0-32.0 [facility] Comment on above: Performed By: #### L 500.4050, L100.0100, L501.9940 ####[facility] [address] [place], [address] MCHC (RBC) [Mass/Vol] 33.6 g/dL Normal 32-36 [facility] Comment on above: Performed By: #### L 500.4050, L100.0100, L501.9940 ####[facility] [address] [place], [address] MCV (RBC) [Entitic vol] 102.7 fL High 80-94 [facility] Comment on above: Performed By: #### L 500.4050, L100.0100, L501.9940 ####[facility] [address] [place], [address] Monocytes/100 WBC (Bld) 8.6 % Normal 0-10 [facility] Comment on above: Performed By: #### L 500.4050, L100.0100, L501.9940 ####[facility] [address] [place], [address] Neutrophils/100 WBC (Bld) 41.4 % Low 47-70 [facility] Comment on above: Performed By: #### L 500.4050, L100.0100, L501.9940 ####[facility] [address] [place], [address] Nucleated RBC (Bld) [#/Vol] 0 10*3/uL Normal 0-5 [facility] Comment on above: Performed By: #### L 500.4050, L100.0100, L501.9940 ####[facility] [address] [place], [address] Platelet mean volume (Bld) [Entitic vol] 9.1 fL Normal 6.2-12.0 [facility] Comment on above: Performed By: #### L 500.4050, L100.0100, L501.9940 ####[facility] [address] [place], [address] Platelets (Bld) [#/Vol] 157 10*3/uL Normal 150-450 [facility] Comment on above: Performed By: #### L 500.4050, L100.0100, L501.9940 ####[facility] [address] [place], [address] RBC (Bld) [#/Vol] 4.15 10*6/uL Low 4.6-6.2 [facility] Comment on above: Performed By: #### L 500.4050, L100.0100, L501.9940 ####[facility] [address] [place], [address] RDW SD 50.2 fl High 35.1-43.9 [facility] Comment on above: Performed By: #### L 500.4050, L100.0100, L501.9940 ####[facility] [address] [place], [address] WBC (Bld) [#/Vol] 5.0 10*3/uL Normal 4.4-11.0 [facility] Comment on above: Performed By: #### L 500.4050, L100.0100, L501.9940 ####[facility] [address] [place], [address] Comprehensive Metabolic Prof [facility] 04-10-2024 Albumin [Mass/Vol] 3.5 g/dL Normal 3.2-5.0 [facility] Comment on above: Performed By: #### L 500.4050, L100.0100, L501.9940 ####[facility] [address] [place], [address] Albumin/Globulin [Mass ratio] 1.0 {ratio} Normal 0.9-2.4 [facility] Comment on above: Performed By: #### L 500.4050, L100.0100, L501.9940 ####[facility] [address] [place], [address] ALK P 47 U/L Normal 45-117 [facility] Comment on above: Performed By: #### L 500.4050, L100.0100, L501.9940 ####[facility] [address] [place], [address] ALT [Catalytic activity/Vol] 14 U/L Low 16-61 [facility] Comment on above: Performed By: #### L 500.4050, L100.0100, L501.9940 ####[facility] [address] [place], [address] AST [Catalytic activity/Vol] 12 U/L Low 15-37 [facility] Comment on above: Performed By: #### L 500.4050, L100.0100, L501.9940 ####[facility] [address] [place], [address] Bilirubin [Mass/Vol] 0.80 mg/dL Normal 0.20-1.00 [facility] Comment on above: Result Comment: For patients on eltrombopag therapy, use of Dimension [place] TBIL is not recommended. Performed By: #### L 500.4050, L100.0100, L501.9940 ####[facility] [address] [place], [address] BUN/CRE 18.9 RATIO Normal 10-20 [facility] Comment on above: Performed By: #### L 500.4050, L100.0100, L501.9940 ####[facility] [address] [place], [address] CA,Total 8.9 mg/dL Normal 8.5-10.1 [facility] Comment on above: Performed By: #### L 500.4050, L100.0100, L501.9940 ####[facility] [address] [place], [address] Chloride [Moles/Vol] 111 mmol/L High 98-107 [facility] Comment on above: Performed By: #### L 500.4050, L100.0100, L501.9940 ####[facility] [address] [place], [address] CO2 [Moles/Vol] 27.0 mmol/L Normal 21.0-32.0 [facility] Comment on above: Performed By: #### L 500.4050, L100.0100, L501.9940 ####[facility] [address] [place], [address] Creatinine [Mass/Vol] 1.06 mg/dL Normal 0.70-1.30 [facility] Comment on above: Result Comment: The validity of the calculated GFR GFRAA in patients over70 years has not been determined. Clinical correlation isessential. Performed By: #### L 500.4050, L100.0100, L501.9940 ####[facility] [address] [place], [address] ECRCL 51.65 ml/min Normal [facility] Comment on above: Performed By: #### L 500.4050, L100.0100, L501.9940 ####[facility] [address] [place], [address] EST GFR - AA 85 mL/min Normal >60 [facility] Comment on above: Result Comment: Afri can [place] GFR Calc Performed By: #### L 500.4050, L100.0100, L501.9940 ####[facility] [address] [place], [address] GAP 4 Low 5-15 [facility] Comment on above: Performed By: #### L 500.4050, L100.0100, L501.9940 ####[facility] [address] [place], [address] GFR/1.73 sq M.predicted among non-blacks MDRD (S/P/Bld) [Vol rate/Area] 70 mL/min/{1.73_m2} Normal >60 [facility] Comment on above: Result Comment: Non- GFR Calc Performed By: #### L 500.4050, L100.0100, L501.9940 ####[facility] [address] [place], [address] Globulin (S) [Mass/Vol] 3.4 g/dL Normal 2.2-4.2 [facility] Comment on above: Performed By: #### L 500.4050, L100.0100, L501.9940 ####[facility] [address] [place], [address] Glucose [Mass/Vol] 137 mg/dL High 74-106 [facility] Comment on above: Result Comment: Fast ing Glucose result greater than or equal to 126 mg/dLsuggests DIABETES MELLITUS per A.D.A. criteria. Performed By: #### L 500.4050, L100.0100, L501.9940 ####[facility] [address] [place], [address] Potassium [Moles/Vol] 4.1 mmol/L Normal 3.5-5.1 [facility] Comment on above: Performed By: #### L 500.4050, L100.0100, L501.9940 ####[facility] [address] [place], [address] Sodium [Moles/Vol] 142 mmol/L Normal 136-145 [facility] Comment on above: Performed By: #### L 500.4050, L100.0100, L501.9940 ####[facility] [address] [place], [address] T PROT 6.9 g/dL Normal 6.4-8.2 [facility] Comment on above: Performed By: #### L 500.4050, L100.0100, L501.9940 ####[facility] [address] [place], [place], [address] Urea nitrogen [Mass/Vol] 20 mg/dL High 7-18 [facility] Comment on above: Performed By: #### L 500.4050, L100.0100, L501.9940 ####[facility] [address] [place], [place], [address] Oncology Visit Reporton 03-24 Oncology Visit Report Normal [facility] PSA,Total- Diagnosticon 03-24 PSA, DIAGNOSTIC 0.03 ng/mL Normal 0.0-4.0 [facility] Comment on above: Result Comment: This test was performed using the TPSA assay method for [employer] chemistry system. Values obtained with differentassay methods cannot be used interchangably.When changing PSA assays in the course of monitoring apatient, additional sequential testing should be carriedout to confirm baseline values. Performed By: #### L 500.4050, L100.0100, L501.9940 ####[facility] [address] [place], [place], [address] Echo Limited w/Contraston Echo Limited w/Contrast Normal [facility] Femur Min 2 Viewson 03-03-20 24 Femur Min 2 Views Normal [facility] Office Visit Reporton 2023 Office Visit Report Normal [facility] Pelvis 1 or 2 Viewson 2023 Pelvis 1 or 2 Views Normal [facility] Cardiology Visit Reporton Cardiology Visit Report Normal [facility] CBC W/Diff, Automatedon Absolute Lymph 2.50 X10 3/uL Normal 0.83-4.51 [facility] Comment on above: Performed By: #### L 100.0100 ####[place] [facility] [address] [place], [address] Absolute Neut 2.0 X10 3/uL Normal 2.0-7.7 [facility] Comment on above: Performed By: #### L 100.0100 ####[facility] [address] [place], [address] Basophils/100 WBC (Bld) 0.2 % Normal 0-1 [facility] Comment on above: Performed By: #### L 100.0100 ####[facility] [address] [place], [address] Eosinophils/100 WBC (Bld) 1.0 % Normal 0-5 [facility] Comment on above: Performed By: #### L 100.0100 ####[facility] [address] [place], [address] Erythrocyte distribution width (RBC) [Ratio] 13.6 % Normal 11.6-14.6 [facility] Comment on above: Performed By: #### L 100.0100 ####[facility] [address] [place], [address] Hematocrit (Bld) [Volume fraction] 42.7 % Normal 40-54 [facility] Comment on above: Performed By: #### L 100.0100 ####[facility] [address] [place], [address] Hemoglobin (Bld) [Mass/Vol] 14.4 g/dL Normal 13.0-16.5 [facility] Comment on above: Performed By: #### L 100.0100 ####[facility] [address] [place], [address] IG% 0.400 Normal 0.0-0.9 [facility] Comment on above: Result Comment: IG% - Immature Granulocytes (promyelocytes, myelocytes andmetamyelocytes) > 1% indicates that a LEFT SHIFT is Present. Performed By: #### L 100.0100 ####[facility] [address] [place], [address] Lymphocytes/100 WBC (Bld) 49.9 % High 19-41 [facility] Comment on above: Performed By: #### L 100.0100 ####[facility] [address] [place], [address] MCH (RBC) [Entitic mass] 34.5 pg High 27.0-32.0 [facility] Comment on above: Performed By: #### L 100.0100 ####[facility] [address] [place], [address] MCHC (RBC) [Mass/Vol] 33.7 g/dL Normal 32-36 [facility] Comment on above: Performed By: #### L 100.0100 ####[facility] [address] [place], [address] MCV (RBC) [Entitic vol] 102.4 fL High 80-94 [facility] Comment on above: Performed By: #### L 100.0100 ####[facility] [address] [place], [address] Monocytes/100 WBC (Bld) 7.8 % Normal 0-10 [facility] Comment on above: Performed By: #### L 100.0100 ####[facility] [address] [place], [address] Neutrophils/100 WBC (Bld) 40.7 % Low 47-70 [facility] Comment on above: Performed By: #### L 100.0100 ####[facility] [address] [place], [address] Nucleated RBC (Bld) [#/Vol] 0 10*3/uL Normal 0-5 [facility] Comment on above: Performed By: #### L 100.0100 ####[facility] [address] [place], [address] Platelet mean volume (Bld) [Entitic vol] 9.5 fL Normal 6.2-12.0 [facility] Comment on above: Performed By: #### L 100.0100 ####[facility] [address] [place], [address] Platelets (Bld) [#/Vol] 157 10*3/uL Normal 150-450 [facility] Comment on above: Performed By: #### L 100.0100 ####[facility] [address] [place], [address] RBC (Bld) [#/Vol] 4.17 10*6/uL Low 4.6-6.2 [facility] Comment on above: Performed By: #### L 100.0100 ####[facility] [address] [place], [address] RDW SD 51.1 fl High 35.1-43.9 [facility] Comment on above: Performed By: #### L 100.0100 ####[facility] [address] [place], [address] WBC (Bld) [#/Vol] 5.0 10*3/uL Normal 4.4-11.0 [facility] Comment on above: Performed By: #### L 100.0100 ####[facility] [address] [place], [address] Comprehensive Metabolic Prof ilon 02-28-2024 Albumin [Mass/Vol] 3.4 g/dL Normal 3.2-5.0 [facility] Comment on above: Performed By: #### L 500.4050, L501.9940 ####[facility] [address] [place], [address] Albumin/Globulin [Mass ratio] 0.9 {ratio} Normal 0.9-2.4 [facility] Comment on above: Performed By: #### L 500.4050, L501.9940 ####[facility] [address] [place], [address] ALK P 49 U/L Normal 45-117 [facility] Comment on above: Performed By: #### L 500.4050, L501.9940 ####[facility] [address] [place], [address] ALT [Catalytic activity/Vol] 11 U/L Low 16-61 [facility] Comment on above: Performed By: #### L 500.4050, L501.9940 ####[facility] [address] [place], [address] AST [Catalytic activity/Vol] 16 U/L Normal 15-37 [facility] Comment on above: Result Comment: Slig ht Hemolysis, Result may be falsely increased. Performed By: #### L 500.4050, L501.9940 ####[facility] [address] [place], [address] Bilirubin [Mass/Vol] 0.80 mg/dL Normal 0.20-1.00 [facility] Comment on above: Result Comment: For patients on eltrombopag therapy, use of Dimension [place] TBIL is not recommended. Performed By: #### L 500.4050, L501.9940 ####[facility] [address] [place], [address] BUN/CRE 24.4 RATIO High 10-20 [facility] Comment on above: Performed By: #### L 500.4050, L501.9940 ####[facility] [address] [place], [address] CA,Total 9.0 mg/dL Normal 8.5-10.1 [facility] Comment on above: Performed By: #### L 500.4050, L501.9940 ####[facility] [address] [place], [address] Chloride [Moles/Vol] 110 mmol/L High 98-107 [facility] Comment on above: Performed By: #### L 500.4050, L501.9940 ####[facility] [address] [place], [address] CO2 [Moles/Vol] 30.0 mmol/L Normal 21.0-32.0 [facility] Comment on above: Performed By: #### L 500.4050, L501.9940 ####[facility] [address] [place], [address] Creatinine [Mass/Vol] 1.19 mg/dL Normal 0.70-1.30 [facility] Comment on above: Result Comment: The validity of the calculated GFR GFRAA in patients over70 years has not been determined. Clinical correlation isessential. Performed By: #### L 500.4050, L501.9940 ####[facility] [address] [place], [address] ECRCL 46.01 ml/min Normal [facility] Comment on above: Performed By: #### L 500.4050, L501.9940 ####[facility] [address] [place], [address] EST GFR - AA 74 mL/min Normal >60 [facility] Comment on above: Result Comment: Afri can Tanz[place] GFR Calc Performed By: #### L 500.4050, L501.9940 ####[facility] [address] [place], [address] GAP 4 Low 5-15 [facility] Comment on above: Performed By: #### L 500.4050, L501.9940 ####[facility] [address] [place], [address] GFR/1.73 sq M.predicted among non-blacks MDRD (S/P/Bld) [Vol rate/Area] 62 mL/min/{1.73_m2} Normal >60 [facility] Comment on above: Result Comment: Non- GFR Calc Performed By: #### L 500.4050, L501.9940 ####[facility] [address] [place], [address] Globulin (S) [Mass/Vol] 3.7 g/dL Normal 2.2-4.2 [facility] Comment on above: Performed By: #### L 500.4050, L501.9940 ####[facility] [address] [place], [address] Glucose [Mass/Vol] 113 mg/dL High 74-106 [facility] Comment on above: Result Comment: Fast ing Glucose result from 100 to 125 mg/dLsuggests IMPAIRED HOMEOSTASIS per A.D.A. criteria. Performed By: #### L 500.4050, L501.9940 ####[facility] [address] [place], [address] Potassium [Moles/Vol] 4.2 mmol/L Normal 3.5-5.1 [facility] Comment on above: Result Comment: Slig ht Hemolysis, Result may be falsely increased. Performed By: #### L 500.4050, L501.9940 ####[facility] [address] [place], [address] Sodium [Moles/Vol] 144 mmol/L Normal 136-145 [facility] Comment on above: Performed By: #### L 500.4050, L501.9940 ####[facility] [address] [place], [address] T PROT 7.1 g/dL Normal 6.4-8.2 [facility] Comment on above: Performed By: #### L 500.4050, L501.9940 ####[facility] [address] [place], [address] Urea nitrogen [Mass/Vol] 29 mg/dL High 7-18 [facility] Comment on above: Performed By: #### L 500.4050, L501.9940 ####[facility] [address] [place], [address] Oncology Visit Reporton Oncology Visit Report Normal [facility] PSA,Total- Diagnosticon PSA, DIAGNOSTIC 0.04 ng/mL Normal 0.0-4.0 [facility] Comment on above: Result Comment: This test was performed using the TPSA assay method for [employer] chemistry system. Values obtained with differentassay methods cannot be used interchangably.When changing PSA assays in the course of monitoring apatient, additional sequential testing should be carriedout to confirm baseline values. Performed By: #### L 500.4050, L501.9940 ####[facility] [address] [place], [address] Internal Medicine Office Vis iton 01-19-2024 Internal Medicine Office Visit Normal [facility] CBC W/Diff, Automatedon 12-23 Absolute Lymph 2.30 X10 3/uL Normal 0.83-4.51 [facility] Comment on above: Performed By: #### L 501.9940, L500.4050, L100.0100 ####[facility] [address] [place], [address] Absolute Neut 2.0 X10 3/uL Normal 2.0-7.7 [facility] Comment on above: Performed By: #### L 501.9940, L500.4050, L100.0100 ####[facility] [address] [place], [address] Basophils/100 WBC (Bld) 0.4 % Normal 0-1 [facility] Comment on above: Performed By: #### L 501.9940, L500.4050, L100.0100 ####[facility] [address] [place], [address] Eosinophils/100 WBC (Bld) 1.5 % Normal 0-5 [facility] Comment on above: Performed By: #### L 501.9940, L500.4050, L100.0100 ####[facility] [address] [place], [address] Erythrocyte distribution width (RBC) [Ratio] 13.9 % Normal 11.6-14.6 [facility] Comment on above: Performed By: #### L 501.9940, L500.4050, L100.0100 ####[facility] [address] [place], [address] Hematocrit (Bld) [Volume fraction] 40.5 % Normal 40-54 [facility] Comment on above: Performed By: #### L 501.9940, L500.4050, L100.0100 ####[facility] [address] [place], [address] Hemoglobin (Bld) [Mass/Vol] 13.5 g/dL Normal 13.0-16.5 [facility] Comment on above: Performed By: #### L 501.9940, L500.4050, L100.0100 ####[facility] [address] [place], [address] IG% 0.400 Normal 0.0-0.9 [facility] Comment on above: Result Comment: IG% - Immature Granulocytes (promyelocytes, myelocytes andmetamyelocytes) > 1% indicates that a LEFT SHIFT is Present. Performed By: #### L 501.9940, L500.4050, L100.0100 ####[facility] [address] [place], [address] Lymphocytes/100 WBC (Bld) 47.8 % High 19-41 [facility] Comment on above: Performed By: #### L 501.9940, L500.4050, L100.0100 ####[facility] [address] [place], [address] MCH (RBC) [Entitic mass] 33.6 pg High 27.0-32.0 [facility] Comment on above: Performed By: #### L 501.9940, L500.4050, L100.0100 ####[facility] [address] [place], [address] MCHC (RBC) [Mass/Vol] 33.3 g/dL Normal 32-36 [facility] Comment on above: Performed By: #### L 501.9940, L500.4050, L100.0100 ####[facility] [address] [place], [address] MCV (RBC) [Entitic vol] 100.7 fL High 80-94 [facility] Comment on above: Performed By: #### L 501.9940, L500.4050, L100.0100 ####[facility] [address] [place], [address] Monocytes/100 WBC (Bld) 8.9 % Normal 0-10 [facility] Comment on above: Performed By: #### L 501.9940, L500.4050, L100.0100 ####[facility] [address] [place], [address] Neutrophils/100 WBC (Bld) 41.0 % Low 47-70 [facility] Comment on above: Performed By: #### L 501.9940, L500.4050, L100.0100 ####[facility] [address] [place], [address] Nucleated RBC (Bld) [#/Vol] 0 10*3/uL Normal 0-5 [facility] Comment on above: Performed By: #### L 501.9940, L500.4050, L100.0100 ####[facility] [address] [place], [address] Platelet mean volume (Bld) [Entitic vol] 9.1 fL Normal 6.2-12.0 [facility] Comment on above: Performed By: #### L 501.9940, L500.4050, L100.0100 ####[facility] [address] [place], [address] Platelets (Bld) [#/Vol] 155 10*3/uL Normal 150-450 [facility] Comment on above: Performed By: #### L 501.9940, L500.4050, L100.0100 ####[facility] [address] [place], [address] RBC (Bld) [#/Vol] 4.02 10*6/uL Low 4.6-6.2 [facility] Comment on above: Performed By: #### L 501.9940, L500.4050, L100.0100 ####[facility] [address] [place], [address] RDW SD 51.6 fl High 35.1-43.9 [facility] Comment on above: Performed By: #### L 501.9940, L500.4050, L100.0100 ####[facility] [address] [place], [address] WBC (Bld) [#/Vol] 4.8 10*3/uL Normal 4.4-11.0 [facility] Comment on above: Performed By: #### L 501.9940, L500.4050, L100.0100 ####[facility] [address] [place], [address] Comprehensive Metabolic [facility] 01-17-2024 Albumin [Mass/Vol] 3.1 g/dL Low 3.2-5.0 [facility] Comment on above: Performed By: #### L 501.9940, L500.4050, L100.0100 ####[facility] [address] [place], [address] Albumin/Globulin [Mass ratio] 0.9 {ratio} Normal 0.9-2.4 [facility] Comment on above: Performed By: #### L 501.9940, L500.4050, L100.0100 ####[facility] [address] [place], [address] ALK P 54 U/L Normal 45-117 [facility] Comment on above: Performed By: #### L 501.9940, L500.4050, L100.0100 ####[facility] [address] [place], [address] ALT [Catalytic activity/Vol] 11 U/L Low 16-61 [facility] Comment on above: Performed By: #### L 501.9940, L500.4050, L100.0100 ####[facility] [address] [place], [address] AST [Catalytic activity/Vol] 13 U/L Low 15-37 [facility] Comment on above: Performed By: #### L 501.9940, L500.4050, L100.0100 ####[facility] [address] [place], [address] Bilirubin [Mass/Vol] 0.60 mg/dL Normal 0.20-1.00 [facility] Comment on above: Result Comment: For patients on eltrombopag therapy, use of Dimension [place] TBIL is not recommended. Performed By: #### L 501.9940, L500.4050, L100.0100 ####[facility] [address] [place], [address] BUN/CRE 25.5 RATIO High 10-20 [facility] Comment on above: Performed By: #### L 501.9940, L500.4050, L100.0100 ####[facility] [address] [place], [address] CA,Total 8.5 mg/dL Normal 8.5-10.1 [facility] Comment on above: Performed By: #### L 501.9940, L500.4050, L100.0100 ####[facility] [address] [place], [address] Chloride [Moles/Vol] 111 mmol/L High 98-107 [facility] Comment on above: Performed By: #### L 501.9940, L500.4050, L100.0100 ####[facility] [address] [place], [address] CO2 [Moles/Vol] 27.0 mmol/L Normal 21.0-32.0 [facility] Comment on above: Performed By: #### L 501.9940, L500.4050, L100.0100 ####[facility] [address] [place], [address] Creatinine [Mass/Vol] 1.10 mg/dL Normal 0.70-1.30 [facility] Comment on above: Result Comment: The validity of the calculated GFR GFRAA in patients over70 years has not been determined. Clinical correlation isessential. Performed By: #### L 501.9940, L500.4050, L100.0100 ####[facility] [address] [place], [address] ECRCL 49.77 ml/min Normal [facility] Comment on above: Performed By: #### L 501.9940, L500.4050, L100.0100 ####[facility] [address] [place], [address] EST GFR - AA 82 mL/min Normal >60 [facility] Comment on above: Result Comment: Afri can [place] GFR Calc Performed By: #### L 501.9940, L500.4050, L100.0100 ####[facility] [address] [place], [address] GAP 5 Normal 5-15 [facility] Comment on above: Performed By: #### L 501.9940, L500.4050, L100.0100 ####[facility] [address] [place], [address] GFR/1.73 sq M.predicted among non-blacks MDRD (S/P/Bld) [Vol rate/Area] 67 mL/min/{1.73_m2} Normal >60 [facility] Comment on above: Result Comment: Non- GFR Calc Performed By: #### L 501.9940, L500.4050, L100.0100 ####[facility] [address] [place], [address] Globulin (S) [Mass/Vol] 3.5 g/dL Normal 2.2-4.2 [facility] Comment on above: Performed By: #### L 501.9940, L500.4050, L100.0100 ####[facility] [address] [place], [address] Glucose [Mass/Vol] 122 mg/dL High 74-106 [facility] Comment on above: Result Comment: Fast ing Glucose result from 100 to 125 mg/dLsuggests IMPAIRED HOMEOSTASIS per A.D.A. criteria. Performed By: #### L 501.9940, L500.4050, L100.0100 ####[facility] [address] [place], [address] Potassium [Moles/Vol] 4.2 mmol/L Normal 3.5-5.1 [facility] Comment on above: Performed By: #### L 501.9940, L500.4050, L100.0100 ####[facility] [address] [place], [address] Sodium [Moles/Vol] 143 mmol/L Normal 136-145 [facility] Comment on above: Performed By: #### L 501.9940, L500.4050, L100.0100 ####[facility] [address] [place], [address] T PROT 6.6 g/dL Normal 6.4-8.2 [facility] Comment on above: Performed By: #### L 501.9940, L500.4050, L100.0100 ####[facility] [address] [place], [address] Urea nitrogen [Mass/Vol] 28 mg/dL High 7-18 [facility] Comment on above: Performed By: #### L 501.9940, L500.4050, L100.0100 ####[facility] [address] [place], [address] Oncology Visit Reporton 12-23 Oncology Visit Report Normal [facility] PSA,Total- Diagnosticon 12-23 PSA, DIAGNOSTIC 0.05 ng/mL Normal 0.0-4.0 [facility] Comment on above: Result Comment: This test was performed using the TPSA assay method for [facility] system. Values obtained with differentassay methods cannot be used interchangably.When changing PSA assays in the course of monitoring apatient, additional sequential testing should be carriedout to confirm baseline values. Performed By: #### L 501.9940, L500.4050, L100.0100 ####[facility] [address] [place], [address] Absolute lymphocyte countOrd ered By: Rachael Posada on 06-21-2023 Lymphocytes Auto (Unsp spec) [#/Vol] 3.26 10*3/uL 0.83-4.51 [facility] Automated lymphocyte count a s percentage of total leukocytesOrdered By: Rachael McclellanAlbino on 06-21-2023 Lymphocytes/100 WBC Auto (Unsp spec) 47.8 % 19-41 [facility] Basophil percentageOrdered B y: Rachael Fernandezach on 06-21-2023 Basophil percentage 7.03 ng/mL 0.0-4.0 [facility] Comment on above: This test was perfor med using the TPSA assay method for the[employer] chemistry system. Values obtained with differentassay methods cannot be used interchangably.When changing PSA assays in the course of monitoring apatient, additional sequential testing should be carriedout to confirm baseline values. Basophils/100 WBC (Bld) 0.3 % 0-1 [facility] Bilirubin [Mass/Vol] 1.10 mg/dL 0.20-1.00 [facility] Comment on above: For patients on eltr ombopag therapy, use of Dim[place] TBIL is not recommended. Chloride [Moles/Vol] 108 mmol/L 98-107 [facility] Eosinophils/100 WBC (Bld) 0.6 % 0-5 [facility] Glucose [Mass/Vol] 110 mg/dL 74-106 [facility] Comment on above: Fasting Glucose resu lt from 100 to 125 mg/dL suggests IMPAIRED HOMEOSTASIS per A.D.A. criteria. Hemoglobin (Bld) [Mass/Vol] 14.2 g/dL 13.0-16.5 [facility] Monocytes/100 WBC (Bld) 8.7 % 0-10 [facility] Neutrophils (Bld) [#/Vol] 2.9 10*3/uL 2.0-7.7 [facility] Neutrophils/100 WBC (Bld) 42.3 % 47-70 [facility] Potassium [Moles/Vol] 3.4 mmol/L 3.5-5.1 [facility] Protein [Mass/Vol] 7.5 g/dL 6.4-8.2 [facility] Sodium [Moles/Vol] 140 mmol/L 136-145 [facility] WBC (Bld) [#/Vol] 6.8 10*3/uL 4.4-11.0 [facility] Determination of erythrocyte mean corpuscular volume (MCV)Ordered By: Rachael Posada on 06-21-2023 MCV (RBC) [Entitic vol] 100.0 fL 80-94 [facility] Erythrocyte distribution wid th ratioOrdered By: [facility] on 06-21-2023 Erythrocyte distribution width (RBC) [Ratio] 13.4 % 11.6-14.6 [facility] Erythrocyte distribution wid th standard deviationOrdered By: [facility] Hospital[facility] on 06-21-2023 Erythrocyte distribution width (RBC) [Entitic vol] 49.7 fL 35.1-43.9 [facility] Hematocrit Auto (Bld) [Volum e fraction]Ordered By: [facility] on 06-21-2023 Hematocrit (Bld) [Volume fraction] 43.6 % 40-54 [facility] Immature granulocytes/100 WB C Auto (Bld)Ordered By: [facility] on 06-21-2023 Immature granulocytes/100 WBC (Bld) 0.300 % 0.0-0.9 [facility] Comment on above: IG% - Immature Granu locytes (promyelocytes, myelocytes and metamyelocytes) > 1% indicates that a LEFT SHIFT is Present. Laboratory - Chemistry and C hemistry - challengeOrdered By: [facility] Hospital[facility] on 06-21-2023 Albumin/Globulin [Mass ratio] 0.8 {ratio} 0.9-2.4 [facility] ALP [Catalytic activity/Vol] 76 U/L 45-117 [facility] ALT [Catalytic activity/Vol] 13 U/L 16-61 [facility] CO2 [Moles/Vol] 30.0 mmol/L 21.0-32.0 [facility] Globulin (S) [Mass/Vol] 4.1 g/dL 2.2-4.2 [facility] Urea nitrogen/Creatinine [Mass ratio] 21.9 mg/mg 10-20 [facility] Laboratory - Hematology and Cell countsOrdered By: [facility] on 06-21-2023 MCH (RBC) [Entitic mass] 32.6 pg 27.0-32.0 [facility] MCHC (RBC) [Mass/Vol] 32.6 g/dL 32-[facility] Nucle[facility] RBC/100 WBC (Bld) [Ratio] 0 % 0-5 [facility] Platelets (Bld) [#/Vol] 181 10*3/uL 150-450 [facility] No Panel InformationOrdered By: Rachael Posada on 06-21-2023 Estimated Creatinine Clearance Calc 60.16 ml/min [facility] Estimated GFR (MDRD) Amer 101 mL/min >60 [facility] Comment on above: GFR Calc Estimated GFR (MDRD) Non-Af Amer 84 mL/min >60 [facility] Comment on above: Non- GFR Calc Platelet mean volume Santhosh-Ec ker (Bld) [Entitic vol]Ordered By: Rachael Posada on 06-21-2023 Platelet mean volume (Bld) [Entitic vol] 9.5 fL 6.2-12.0 [facility] RBC Auto (Bld) [#/Vol]Ordere d By: Rachael Posada on 06-21-2023 RBC (Bld) [#/Vol] 4.36 10*6/uL 4.6-6.2 [facility] Serum or plasma calcium patricia urement (mass/volume)Ordered By: Rachael Posada on 06-21-2023 Calcium [Mass/Vol] 9.0 mg/dL 8.5-10.1 [facility] Serum or plasma creatinine m easurement (mass/volume)Ordered By: Rachael Posada on 06-21-2023 Creatinine [Mass/Vol] 0.91 mg/dL 0.70-1.30 [facility] Comment on above: The validity of the calculated GFR & GFRAA in patients over 70 years has not been determined. Clinical correlation is essential. Serum or plasma urea nitroge n measurement (mass/volume)Ordered By: Rachael Posada on 06-21-2023 Urea nitrogen [Mass/Vol] 20 mg/dL 7-18 [facility] Thin prep Papanicolaou smear with manual screeningOrdered By: Rachael Posada on 06-21-2023 Thin prep Papanicolaou smear with manual screening 3.4 g/dL 3.2-5.0 [facility] Thin prep Papanicolaou smear with manual screening 14 U/L 15-37 [facility] Thin prep Papanicolaou smear with manual screening 2 5-15 [facility] Absolute lymphocyte countOrd ered By: Carolina Mcgee on 05-10-2023 Lymphocytes Auto (Unsp spec) [#/Vol] 2.45 10*3/uL 0.83-4.51 [facility] Basophil percentageOrdered B y: Carolina Mcgee on 05-10-2023 Basophils/100 WBC (Bld) 0.5 % 0-1 [facility] Bilirubin [Mass/Vol] 0.60 mg/dL 0.20-1.00 [facility] Comment on above: For patients on eltr ombopag therapy, use of Dimension [place] TBIL is not recommended. Chloride [Moles/Vol] 112 mmol/L 98-107 [facility] Eosinophils/100 WBC (Bld) 0.9 % 0-5 [facility] Glucose [Mass/Vol] 124 mg/dL 74-106 [facility] Comment on above: Fasting Glucose resu lt from 100 to 125 mg/dL suggests IMPAIRED HOMEOSTASIS per A.D.A. criteria. Neutrophils (Bld) [#/Vol] 2.8 10*3/uL 2.0-7.7 [facility] Neutrophils/100 WBC (Bld) 48.5 % 47-70 [facility] Potassium [Moles/Vol] 3.6 mmol/L 3.5-5.1 [facility] Protein [Mass/Vol] 7.1 g/dL 6.4-8.2 [facility] Sodium [Moles/Vol] 145 mmol/L 136-145 [facility] WBC (Bld) [#/Vol] 5.8 10*3/uL 4.4-11.0 [facility] Blood erythrocytes count (nu mber/volume)Ordered By: Carolina Mcgee on 05-10-2023 RBC (Bld) [#/Vol] 4.14 10*6/uL 4.6-6.2 [facility] Blood hemoglobin measurement (mass/volume)Ordered By: Carolina Mcgee on 05-10-2023 Hemoglobin (Bld) [Mass/Vol] 13.5 g/dL 13.0-16.5 [facility] Blood lymphocytes/100 leukoc ytesOrdered By: [facility] on 05-10-2023 Lymphocytes/100 WBC (Bld) 42.5 % 19-41 [facility] Blood monocytes/100 leukocyt esOrdered By: [facility] [employer] Arely on 05-10-2023 Monocytes/100 WBC (Bld) 7.3 % 0-10 [facility] Blood platelet mean volumeOr dered By: [employer] Arely on 05-10-2023 Platelet mean volume (Bld) [Entitic vol] 9.1 fL 6.2-12.0 [facility] Determination of erythrocyte mean corpuscular volume (MCV)Ordered By: [employer] Arely on 05-10-2023 MCV (RBC) [Entitic vol] 100.2 fL 80-94 [facility] Hematocrit Auto (Bld) [Volum e fraction]Ordered By: [employer] Arely on 05-10-2023 Hematocrit (Bld) [Volume fraction] 41.5 % 40-54 [facility] - Chemistry and C hemistry - challengeOrdered By: [employer] Arely on 05-10-2023 ALP [Catalytic activity/Vol] 90 U/L 45-117 [facility] ALT [Catalytic activity/Vol] 13 U/L 16-61 [facility] CO2 [Moles/Vol] 25.0 mmol/L 21.0-32.0 [facility] Globulin (S) [Mass/Vol] 3.8 g/dL 2.2-4.2 [facility] Urea nitrogen/Creatinine [Mass ratio] 19.8 mg/mg 10-20 [facility] - Hematology and Cell countsOrdered By: [employer] Arely on 05-10-2023 Erythrocyte distribution width (RBC) [Entitic vol] 49.9 fL 35.1-43.9 [facility] Erythrocyte distribution width (RBC) [Ratio] 13.3 % 11.6-14.6 [facility] Immature granulocytes/100 WBC (Bld) 0.300 % 0.0-0.9 [facility] Comment on above: IG% - Immature Granu locytes (promyelocytes, myelocytes and metamyelocytes) > 1% indicates that a LEFT SHIFT is Present. MCH (RBC) [Entitic mass] 32.6 pg 27.0-32.0 [facility] Nucleated RBC/100 WBC (Bld) [Ratio] 0 % 0-5 [facility] MCHC Auto (RBC) [Mass/Vol]Or dered By: Carolina Mcgee on 05-10-2023 MCHC (RBC) [Mass/Vol] 32.5 g/dL 32-36 [facility] No Panel InformationOrdered By: Carolina Mcgee on 05-10-2023 Estimated Creatinine Clearance Calc 52.61 ml/min [facility] Estimated GFR (MDRD) Amer 85 mL/min >60 [facility] Comment on above: GFR Calc Estimated GFR (MDRD) Non-Af Amer 70 mL/min >60 [facility] Comment on above: Non- GFR Calc Prostate Specific Antigen Total 32.00 ng/mL 0.0-4.0 [facility] Comment on above: This test was perfor med using the TPSA assay method for the[employer] chemistry system. Values obtained with differentassay methods cannot be used interchangably.When changing PSA assays in the course of monitoring apatient, additional sequential testing should be carriedout to confirm baseline values. Platelets bldOrdered By: Graham Mcgee on 05-10-2023 Platelets (Bld) [#/Vol] 204 10*3/uL 150-450 [facility] Serum or plasma albumin patricia urement (mass/volume)Ordered By: Carolina Mcgee on 05-10-2023 Albumin [Mass/Vol] 3.3 g/dL 3.2-5.0 [facility] Serum or plasma albumin/glob ulin mass ratioOrdered By: Carolina Mcgee on 05-10-2023 Albumin/Globulin [Mass ratio] 0.9 {ratio} 0.9-2.4 [facility] Serum or plasma calcium patricia urement (mass/volume)Ordered By: Carolina Mcgee on 05-10-2023 Calcium [Mass/Vol] 8.0 mg/dL 8.5-10.1 [facility] Serum or plasma creatinine m easurement (mass/volume)Ordered By: Carolina Mcgee on 05-10-2023 Creatinine [Mass/Vol] 1.06 mg/dL 0.70-1.30 [facility] Comment on above: The validity of the calculated GFR & GFRAA in patients over 70 years has not been determined. Clinical correlation is essential. Serum or plasma urea nitroge n measurement (mass/volume)Ordered By: Carolina Mcgee on 05-10-2023 Urea nitrogen [Mass/Vol] 21 mg/dL 7-18 [facility] Thin prep Papanicolaou smear with manual screeningOrdered By: Carolina Mcgee on 05-10-2023 Thin prep Papanicolaou smear with manual screening 13 U/L 15- [facility] Thin prep Papanicolaou smear with manual screening 8 5-15 [facility] XR HUMERUS LEFTon 04-12-2023 XR HUMERUS LEFT [...] aggressive lytic lesion with cortical invasion. Normal [facility] XR Humerus - left [facility] EXAM: XR [...] Underlying aggressive lytic lesion with cortical invasion. [facility] Radiology Study observation (narrative) [facility] XR Humerus - left ViewsOrder ed By: Paulo Trujillo on 04-12-2023 [facility] Work Phone: Absolute lymphocyte countOrd ered By: Carolina Mcgee on 03-29-2023 Lymphocytes Auto (Unsp spec) [#/Vol] 3.04 10*3/uL 0.83-4.51 [facility] Basophil percentageOrdered B y: Carolian Mcgee on 03-29-2023 Basophils/100 WBC (Bld) 0.4 % 0-1 [facility] Bilirubin [Mass/Vol] 0.50 mg/dL 0.20-1.00 [facility] Comment on above: For patients on eltr ombopag therapy, use of Dimension [place] TBIL is not recommended. Chloride [Moles/Vol] 111 mmol/L 98-107 [facility] Eosinophils/100 WBC (Bld) 1.2 % 0-5 [facility] Glucose [Mass/Vol] 134 mg/dL 74-106 [facility] Comment on above: Fasting Glucose resu lt greater than or equal to 126 mg/dL suggests DIABETES MELLITUS per A.D.A. criteria. Neutrophils (Bld) [#/Vol] 3.0 10*3/uL 2.0-7.7 [facility] Neutrophils/100 WBC (Bld) 44.6 % 47-70 [facility] Potassium [Moles/Vol] 3.7 mmol/L 3.5-5.1 [facility] Protein [Mass/Vol] 7.5 g/dL 6.4-8.2 [facility] Sodium [Moles/Vol] 142 mmol/L 136-145 [facility] WBC (Bld) [#/Vol] 6.7 10*3/uL 4.4-11.0 [facility] Blood erythrocytes count (nu mber/volume)Ordered By: Carolina Mcgee on 03-29-2023 RBC (Bld) [#/Vol] 4.13 10*6/uL 4.6-6.2 [facility] Blood hemoglobin measurement (mass/volume)Ordered By: Carolina Mcgee on 03-29-2023 Hemoglobin (Bld) [Mass/Vol] 13.9 g/dL 13.0-16.5 [facility] Blood lymphocytes/100 leukoc ytesOrdered By: Carolina Mcgee on 03-29-2023 Lymphocytes/100 WBC (Bld) 45.6 % 19-41 [facility] Blood monocytes/100 leukocyt esOrdered By: Carolina Mcgee on 03-29-2023 Monocytes/100 WBC (Bld) 7.8 % 0-10 [facility] Blood platelet mean volumeOr dered By: Carolina Mcgee on 03-29-2023 Platelet mean volume (Bld) [Entitic vol] 8.8 fL 6.2-12.0 [facility] Determination of erythrocyte mean corpuscular volume (MCV)Ordered By: Carolina Mcgee on 03-29-2023 MCV (RBC) [Entitic vol] 101.5 fL 80-94 [facility] Hematocrit Auto (Bld) [Volum e fraction]Ordered By: Carolina Mcgee on 03-29-2023 Hematocrit (Bld) [Volume fraction] 41.9 % 40-54 [facility] - Chemistry and C hemistry - challengeOrdered By: Carolina Mcgee on 03-29-2023 ALP [Catalytic activity/Vol] 134 U/L 45-117 [facility] ALT [Catalytic activity/Vol] 14 U/L 16-61 [facility] CO2 [Moles/Vol] 27.0 mmol/L 21.0-32.0 [facility] Globulin (S) [Mass/Vol] 4.2 g/dL 2.2-4.2 [facility] Urea nitrogen/Creatinine [Mass ratio] 23.9 mg/mg 10-20 [facility] - Hematology and Cell countsOrdered By: Carolina Mcgee on 03-29-2023 Erythrocyte distribution width (RBC) [Entitic vol] 49.7 fL 35.1-43.9 [facility] Erythrocyte distribution width (RBC) [Ratio] 13.2 % 11.6-14.6 [facility] Immature granulocytes/100 WBC (Bld) 0.400 % 0.0-0.9 [facility] Comment on above: IG% - Immature Granu locytes (promyelocytes, myelocytes and metamyelocytes) > 1% indicates that a LEFT SHIFT is Present. MCH (RBC) [Entitic mass] 33.7 pg 27.0-32.0 [facility] Nucleated RBC/100 WBC (Bld) [Ratio] 0 % 0-5 [facility] MCHC Auto (RBC) [Mass/Vol]Or dered By: Carolina Mcgee on 03-29-2023 MCHC (RBC) [Mass/Vol] 33.2 g/dL 32-36 [facility] No Panel InformationOrdered By: Carolina Mcgee on 03-29-2023 Estimated Creatinine Clearance Calc 49.35 ml/min [facility] Estimated GFR (MDRD) Amer 79 mL/min >60 [facility] Comment on above: GFR Calc Estimated GFR (MDRD) Non-Af Amer 65 mL/min >60 [facility] Comment on above: Non- GFR Calc Prostate Specific Antigen Total 539.00 ng/mL 0.0-4.0 [facility] Comment on above: This test was perfor med using the TPSA assay method [facility]. Values obtained with differentassay methods cannot be used interchangably.When changing PSA assays in the course of monitoring apatient, additional sequential testing should be carriedout to confirm baseline values. Platelets bldOrdered By: Graham navi Arely on 03-29-2023 Platelets (Bld) [#/Vol] 196 10*3/uL 150-450 [facility] Serum or plasma albumin patricia urement (mass/volume)Ordered By: Carolina Mcgee on 03-29-2023 Albumin [Mass/Vol] 3.3 g/dL 3.2-5.0 [facility] Serum or plasma albumin/glob ulin mass ratioOrdered By: [facility] on 03-29-2023 Albumin/Globulin [Mass ratio] 0.8 {ratio} 0.9-2.4 [facility] Serum or plasma calcium patricia urement (mass/volume)Ordered By: Carolina Mcgee on 03-29-2023 Calcium [Mass/Vol] 8.7 mg/dL 8.5-10.1 [facility] Serum or plasma creatinine m easurement (mass/volume)Ordered By: Carolina Mcgee on 03-29-2023 Creatinine [Mass/Vol] 1.13 mg/dL 0.70-1.30 [facility] Comment on above: The validity of the calculated GFR & GFRAA in patients over 70 years has not been determined. Clinical correlation is essential. Serum or plasma urea nitroge n measurement (mass/volume)Ordered By: Carolina Mcgee on 03-29-2023 Urea nitrogen [Mass/Vol] 27 mg/dL 7-18 [facility] Thin prep Papanicolaou smear with manual screeningOrdered By: Carolina Mcgee on 03-29-2023 Thin prep Papanicolaou smear with manual screening 11 U/L 15-37 [facility] Thin prep Papanicolaou smear with manual screening 4 5-15 [facility] - Hematology and Cell countson 03-24-2023 HbA1c (Bld) [Mass fraction] 5.9 % 4.2-6.3 [facility] XR HUMERUS LEFTon 03-12-2023 XR HUMERUS LEFT [...] callus formation at the fracture margin. Normal [facility] XR Humerus - left [facility] IMPRESSION: 1. [...] immature callus formation at the fracture margin. [facility]narrative[facility] - [facility] ViewsOrder ed By: Paulo Trujillo on 03-12-2023 [facility] Work Phone: Absolute lymphocyte countOrd ered By: Carolina Mcgee on 02-24-2023 Lymphocytes Auto (Unsp spec) [#/Vol] 1.69 10*3/uL 0.83-4.51 [facility] Basophil percentageOrdered B y: Carolina Mcgee on 02-24-2023 Basophils/100 WBC (Bld) 0.4 % 0-1 [facility] Bilirubin [Mass/Vol] 0.70 mg/dL 0.20-1.00 [facility] Comment on above: For patients on eltr ombopag therapy, use of Dimension [place] TBIL is not recommended. Chloride [Moles/Vol] 108 mmol/L 98-107 [facility] Eosinophils/100 WBC (Bld) 0.4 % 0-5 [facility] Glucose [Mass/Vol] 139 mg/dL 74-106 [facility] Comment on above: Fasting Glucose resu lt greater than or equal to 126 mg/dL suggests DIABETES MELLITUS per A.D.A. criteria. Neutrophils (Bld) [#/Vol] 5.0 10*3/uL 2.0-7.7 [facility] Neutrophils/100 WBC (Bld) 67.8 % 47-70 [facility] Potassium [Moles/Vol] 4.2 mmol/L 3.5-5.1 [facility] Protein [Mass/Vol] 7.3 g/dL 6.4-8.2 [facility] Sodium [Moles/Vol] 139 mmol/L 136-145 [facility] WBC (Bld) [#/Vol] 7.4 10*3/uL 4.4-11.0 [facility] Blood erythrocytes count (nu mber/volume)Ordered By: Carolina Mcgee on 02-24-2023 RBC (Bld) [#/Vol] 4.42 10*6/uL 4.6-6.2 [facility] Blood hemoglobin measurement (mass/volume)Ordered By: Carolina Mcgee on 02-24-2023 Hemoglobin (Bld) [Mass/Vol] 14.5 g/dL 13.0-16.5 [facility] Blood lymphocytes/100 leukoc ytesOrdered By: Carolina Mcgee on 02-24-2023 Lymphocytes/100 WBC (Bld) 22.8 % 19-41 [facility] Blood monocytes/100 leukocyt esOrdered By: Carolina Mcgee on 02-24-2023 Monocytes/100 WBC (Bld) 7.4 % 0-10 [facility] Blood platelet mean volumeOr dered By: Carolina Mcgee on 02-24-2023 Platelet mean volume (Bld) [Entitic vol] 8.8 fL 6.2-12.0 [facility] Determination of erythrocyte mean corpuscular volume (MCV)Ordered By: Carolina Mcgee on 02-24-2023 MCV (RBC) [Entitic vol] 100.9 fL 80-94 [facility] Hematocrit Auto (Bld) [Volum e fraction]Ordered By: Carolina Mcgee on 02-24-2023 Hematocrit (Bld) [Volume fraction] 44.6 % 40-54 [facility] - Chemistry and C hemistry - challengeOrdered By: Carolina Mcgee on 02-24-2023 ALP [Catalytic activity/Vol] 228 U/L 45-117 [facility] ALT [Catalytic activity/Vol] 18 U/L 16-61 [facility] CO2 [Moles/Vol] 27.0 mmol/L 21.0-32.0 [facility] Globulin (S) [Mass/Vol] 4.0 g/dL 2.2-4.2 [facility] Urea nitrogen/Creatinine [Mass ratio] 20.9 mg/mg 10-20 [facility] - Hematology and Cell countsOrdered By: Carolina Mcgee on 02-24-2023 Erythrocyte distribution width (RBC) [Entitic vol] 48.3 fL 35.1-43.9 [facility] Erythrocyte distribution width (RBC) [Ratio] 12.9 % 11.6-14.6 [facility] Immature granulocytes/100 WBC (Bld) 1.200 % 0.0-0.9 [facility] Comment on above: IG% - Immature Granu locytes (promyelocytes, myelocytes and metamyelocytes) > 1% indicates that a LEFT SHIFT is Present. MCH (RBC) [Entitic mass] 32.8 pg 27.0-32.0 [facility] Nucleated RBC/100 WBC (Bld) [Ratio] 0 % 0-5 [facility] MCHC Auto (RBC) [Mass/Vol]Or dered By: Carolina Mcgee on 02-24-2023 MCHC (RBC) [Mass/Vol] 32.5 g/dL 32-36 [facility] No Panel InformationOrdered By: Carolina Mcgee on 02-24-2023 Estimated GFR (MDRD) Amer 82 mL/min >60 [facility] Comment on above: GFR Calc Estimated GFR (MDRD) Non-Af Amer 68 mL/min >60 [facility] Comment on above: Non- GFR Calc Prostate Specific Antigen Total 823.00 ng/mL 0.0-4.0 [facility] Comment on above: This test was perfor med using the TPSA assay method for the[employer] chemistry system. Values obtained with differentassay methods cannot be used interchangably.When changing PSA assays in the course of monitoring apatient, additional sequential testing should be carriedout to confirm baseline values. Platelets bldOrdered By: Graham Mcgee on 02-24-2023 Platelets (Bld) [#/Vol] 229 10*3/uL 150-450 [facility] Serum or plasma albumin patricia urement (mass/volume)Ordered By: [employer] Arely on 02-24-2023 Albumin [Mass/Vol] 3.3 g/dL 3.2-5.0 [facility] Serum or plasma albumin/glob ulin mass ratioOrdered By: [facility] 02-[facility]23 Albumin/Globulin [Mass ratio] 0.8 {ratio} 0.9-2.4 [facility] Serum or plasma calcium patricia urement (mass/volume)Ordered By: [facility] on 02-24-2023 Calcium [Mass/Vol] 8.8 mg/dL 8.5-10.1 [facility] Serum or plasma creatinine m easurement (mass/volume)Ordered By: [facility] on 02-24-2023 Creatinine [Mass/Vol] 1.10 mg/dL 0.70-1.30 [facility] Comment on above: The validity of the calculated GFR & GFRAA in patients over 70 years has not been determined. Clinical correlation is essential. Serum or plasma urea nitroge n measurement (mass/volume)Ordered By: [facility] on 02-24-2023 Urea nitrogen [Mass/Vol] 23 mg/dL 7-18 [facility] Thin prep Papanicolaou smear with manual screeningOrdered By: [facility] on 02-[facility]-2023 Thin prep Papanicolaou smear with manual screening 16 U/L 15-37 [facility] Thin prep Papanicolaou smear with manual screening 4 5-15 [facility] Absolute lymphocyte countOrd ered By: Mariana Stephanie on 02-13-2023 Lymphocytes Auto (Unsp spec) [#/Vol] 1.61 10*3/uL 0.83-4.51 [facility] Basophil percentageOrdered B y: Mariana Stephanie on 02-13-2023 Basophils/100 WBC (Bld) 0.5 % 0-1 [facility] Bilirubin [Mass/Vol] 0.70 mg/dL 0.20-1.00 [facility] Comment on above: For patients on eltr ombopag therapy, use of Dimension [place] TBIL is not recommended. Chloride [Moles/Vol] 112 mmol/L 98-107 [facility] Eosinophils/100 WBC (Bld) 0.8 % 0-5 [facility] Glucose [Mass/Vol] 134 mg/dL 74-106 [facility] Comment on above: Fasting Glucose resu lt greater than or equal to 126 mg/dL suggests DIABETES MELLITUS per A.D.A. criteria. Neutrophils (Bld) [#/Vol] 5.1 10*3/uL 2.0-7.7 [facility] Neutrophils/100 WBC (Bld) 68.9 % 47-70 [facility] Potassium [Moles/Vol] 4.0 mmol/L 3.5-5.1 [facility] Protein [Mass/Vol] 5.8 g/dL 6.4-8.2 [facility] Sodium [Moles/Vol] 143 mmol/L 136-145 [facility] WBC (Bld) [#/Vol] 7.4 10*3/uL 4.4-11.0 [facility] Blood erythrocytes count (nu mber/volume)Ordered By: Mariana Brown on 02-13-2023 RBC (Bld) [#/Vol] 4.06 10*6/uL 4.6-6.2 [facility] Blood hemoglobin measurement (mass/volume)Ordered By: Mariana Brown on 02-13-2023 Hemoglobin (Bld) [Mass/Vol] 13.5 g/dL 13.0-16.5 [facility] Blood lymphocytes/100 leukoc ytesOrdered By: Mariana Brown on 02-13-2023 Lymphocytes/100 WBC (Bld) 21.9 % 19-41 [facility] Blood monocytes/100 leukocyt esOrdered By: Mariana Brown on 02-13-2023 Monocytes/100 WBC (Bld) 7.5 % 0-10 [facility] Blood platelet mean volumeOr dered By: Mariana Brown on 02-13-2023 Platelet mean volume (Bld) [Entitic vol] 9.7 fL 6.2-12.0 [facility] Determination of erythrocyte mean corpuscular volume (MCV)Ordered By: Mariana Brown on 02-13-2023 MCV (RBC) [Entitic vol] 101.0 fL 80-94 [facility] Glucose Glucometer (BldC) [M ass/Vol]Ordered By: Ted Lee on 02-13-2023 Glucose [Mass/Vol] 149 mg/dL 74-106 [facility] Comment on above: MANAGEMENT OF PATIEN T CARE PER NURSING PROTOCOL Hematocrit Auto (Bld) [Volum e fraction]Ordered By: Mariana Brown on 02-13-2023 Hematocrit (Bld) [Volume fraction] 41.0 % 40-54 [facility] - Chemistry and C hemistry - challengeOrdered By: Mariana Brown on 02-13-2023 ALP [Catalytic activity/Vol] 89 U/L 45-117 [facility] ALT [Catalytic activity/Vol] 12 U/L 16-61 [facility] CO2 [Moles/Vol] 26.0 mmol/L 21.0-32.0 [facility] Globulin (S) [Mass/Vol] 3.2 g/dL 2.2-4.2 [facility] Urea nitrogen/Creatinine [Mass ratio] 21.8 mg/mg 10-20 [facility] - Hematology and Cell countsOrdered By: Mariana Brown on 02-13-2023 Erythrocyte distribution width (RBC) [Entitic vol] 48.1 fL 35.1-43.9 [facility] Erythrocyte distribution width (RBC) [Ratio] 12.9 % 11.6-14.6 [facility] Immature granulocytes/100 WBC (Bld) 0.400 % 0.0-0.9 [facility] Comment on above: IG% - Immature Granu locytes (promyelocytes, myelocytes and metamyelocytes) > 1% indicates that a LEFT SHIFT is Present. MCH (RBC) [Entitic mass] 33.3 pg 27.0-32.0 [facility] Nucleated RBC/100 WBC (Bld) [Ratio] 0 % 0-5 [facility] MCHC Auto (RBC) [Mass/Vol]Or dered By: Mariana Brown on 02-13-2023 MCHC (RBC) [Mass/Vol] 32.9 g/dL 32-36 [facility] No Panel InformationOrdered By: Mariana Brown on 02-13-2023 Estimated Creatinine Clearance Calc 60.61 ml/min [facility] Estimated GFR (MDRD) Amer 101 mL/min >60 [facility] Comment on above: GFR Calc Estimated GFR (MDRD) Non-Af Amer 83 mL/min >60 [facility] Comment on above: Non- GFR Calc Platelets bldOrdered By: Martinez juan Brown on 02-13-2023 Platelets (Bld) [#/Vol] 144 10*3/uL 150-450 [facility] Serum or plasma albumin patricia urement (mass/volume)Ordered By: Mariana Brown on 02-13-2023 Albumin [Mass/Vol] 2.6 g/dL 3.2-5.0 [facility] Serum or plasma albumin/glob ulin mass ratioOrdered By: Mariana Brown on 02-13-2023 Albumin/Globulin [Mass ratio] 0.8 {ratio} 0.9-2.4 [facility] Serum or plasma calcium patricia urement (mass/volume)Ordered By: Mariana Brown on 02-13-2023 Calcium [Mass/Vol] 8.3 mg/dL 8.5-10.1 [facility] Serum or plasma creatinine m easurement (mass/volume)Ordered By: Mariana Brown on 02-13-2023 Creatinine [Mass/Vol] 0.92 mg/dL 0.70-1.30 [facility] Comment on above: The validity of the calculated GFR & GFRAA in patients over 70 years has not been determined. Clinical correlation is essential. Serum or plasma urea nitroge n measurement (mass/volume)Ordered By: Mariana Brown on 02-13-2023 Urea nitrogen [Mass/Vol] 20 mg/dL 7-18 [facility] Thin prep Papanicolaou smear with manual screeningOrdered By: Mariana Brown on 02-13-2023 Thin prep Papanicolaou smear with manual screening 10 U/L 15-37 [facility] Thin prep Papanicolaou smear with manual screening 5 5-15 [facility] Absolute lymphocyte countOrd ered By: Simeon Gusman on 02-12-2023 Lymphocytes Auto (Unsp spec) [#/Vol] 1.81 10*3/uL 0.83-4.51 [facility] Basophil percentageOrdered B y: Simeon Gusman on 02-12-2023 Basophils/100 WBC (Bld) 0.4 % 0-1 [facility] Chloride [Moles/Vol] 110 mmol/L 98-107 [facility] Eosinophils/100 WBC (Bld) 0.5 % 0-5 [facility] Glucose [Mass/Vol] 145 mg/dL 74-106 [facility] Comment on above: Fasting Glucose resu lt greater than or equal to 126 mg/dL suggests DIABETES MELLITUS per A.D.A. criteria. Neutrophils (Bld) [#/Vol] 5.2 10*3/uL 2.0-7.7 [facility] Neutrophils/100 WBC (Bld) 66.8 % 47-70 [facility] Potassium [Moles/Vol] 3.6 mmol/L 3.5-5.1 [facility] Sodium [Moles/Vol] 142 mmol/L 136-145 [facility] WBC (Bld) [#/Vol] 7.7 10*3/uL 4.4-11.0 [facility] Blood erythrocytes count (nu mber/volume)Ordered By: Simeon Gusmna on 02-12-2023 RBC (Bld) [#/Vol] 4.41 10*6/uL 4.6-6.2 [facility] Blood hemoglobin measurement (mass/volume)Ordered By: Simeon Gusman on 02-12-2023 Hemoglobin (Bld) [Mass/Vol] 14.4 g/dL 13.0-16.5 [facility] Blood lymphocytes/100 leukoc ytesOrdered By: Simeon Gusman on 02-12-2023 Lymphocytes/100 WBC (Bld) 23.5 % 19-41 [facility] Blood monocytes/100 leukocyt esOrdered By: Simeon Gusman on 02-12-2023 Monocytes/100 WBC (Bld) 8.2 % 0-10 [facility] Blood platelet mean volumeOr dered By: Simeon Gusman on 02-12-2023 Platelet mean volume (Bld) [Entitic vol] 9.2 fL 6.2-12.0 [facility] Determination of erythrocyte mean corpuscular volume (MCV)Ordered By: Simeon Gusman on 02-12-2023 MCV (RBC) [Entitic vol] 100.7 fL 80-94 [facility] Hematocrit Auto (Bld) [Volum e fraction]Ordered By: Simeon Gusman on 02-12-2023 Hematocrit (Bld) [Volume fraction] 44.4 % 40-54 [facility] Laboratory - Chemistry and C hemistry - challengeOrdered By: Simeon Gusman on 02-12-2023 CO2 [Moles/Vol] 31.0 mmol/L 21.0-32.0 [facility] Urea nitrogen/Creatinine [Mass ratio] 26.4 mg/mg 10-20 [facility] Laboratory - Chemistry and C hemistry - challengeOrdered By: Mariana Brown on 02-12-2023 Magnesium [Mass/Vol] 2.5 mg/dL 1.6-2.6 [facility] Laboratory - Hematology and Cell countsOrdered By: Simeon Gusman on 02-12-2023 Erythrocyte distribution width (RBC) [Entitic vol] 48.6 fL 35.1-43.9 [facility] Erythrocyte distribution width (RBC) [Ratio] 13.0 % 11.6-14.6 [facility] Immature granulocytes/100 WBC (Bld) 0.600 % 0.0-0.9 [facility] Comment on above: IG% - Immature Granu locytes (promyelocytes, myelocytes and metamyelocytes) > 1% indicates that a LEFT SHIFT is Present. MCH (RBC) [Entitic mass] 32.7 pg 27.0-32.0 [facility] Nucleated RBC/100 WBC (Bld) [Ratio] 0 % 0-5 [facility] MCHC Auto (RBC) [Mass/Vol]Or dered By: Simeon Gusman on 02-12-2023 MCHC (RBC) [Mass/Vol] 32.4 g/dL 32-36 [facility] No Panel InformationOrdered By: Simeon Gusman on 02-12-2023 Estimated Creatinine Clearance Calc 52.61 ml/min [facility] Estimated GFR (MDRD) Amer 85 mL/min >60 [facility] Comment on above: GFR Calc Estimated GFR (MDRD) Non-Af Amer 70 mL/min >60 [facility] Comment on above: Non- GFR Calc Platelets bldOrdered By: Jerrell Gusman on 02-12-2023 Platelets (Bld) [#/Vol] 160 10*3/uL 150-450 [facility] Serum or plasma calcium patricia urement (mass/volume)Ordered By: Simeon Gusman on 02-12-2023 Calcium [Mass/Vol] 8.9 mg/dL 8.5-10.1 [facility] Serum or plasma creatinine m easurement (mass/volume)Ordered By: Simeno Gusman on 02-12-2023 Creatinine [Mass/Vol] 1.06 mg/dL 0.70-1.30 [facility] Comment on above: The validity of the calculated GFR & GFRAA in patients over 70 years has not been determined. Clinical correlation is essential. Serum or plasma urea nitroge n measurement (mass/volume)Ordered By: Simeon Gusman on 02-12-2023 Urea nitrogen [Mass/Vol] 28 mg/dL 7-18 [facility] Thin prep Papanicolaou smear with manual screeningOrdered By: Simeon Gusman on 02-12-2023 Thin prep Papanicolaou smear with manual screening 1 5-15 [facility] Absolute lymphocyte countOrd ered By: Dyan Kyle on 01-21-2023 Lymphocytes Auto (Unsp spec) [#/Vol] 2.87 10*3/uL 0.83-4.51 [facility] Basophil percentageOrdered B y: Dyan Kyle on 01-21-2023 Basophil percentage 0 SEEN /hpf 0-5 [facility] Basophils/100 WBC (Bld) 0.6 % 0-1 [facility] Bilirubin [Mass/Vol] 1.00 mg/dL 0.20-1.00 [facility] Comment on above: For patients on eltr ombopag therapy, use of Dimension [place] TBIL is not recommended. Chloride [Moles/Vol] 109 mmol/L 98-107 [facility] Cholesterol [Mass/Vol] 164 mg/dL <200 [facility] Comment on above: <200 mg/dL Desirable 200-240 mg/dL Borderline >240 mg/dL High Risk Eosinophils/100 WBC (Bld) 1.2 % 0-5 [facility] Glucose [Mass/Vol] 129 mg/dL 74-106 [facility] Comment on above: Fasting Glucose resu lt greater than or equal to 126 mg/dL suggests DIABETES MELLITUS per A.D.A. criteria. Neutrophils (Bld) [#/Vol] 3.1 10*3/uL 2.0-7.7 [facility] Neutrophils/100 WBC (Bld) 47.1 % 47-70 [facility] Potassium [Moles/Vol] 4.6 mmol/L 3.5-5.1 [facility] Protein [Mass/Vol] 7.2 g/dL 6.4-8.2 [facility] Sodium [Moles/Vol] 141 mmol/L 136-145 [facility] Triglyceride [Mass/Vol] 88 mg/dL <199 [facility] Comment on above: The drugs N-Acetylcy steine and Metamizole may falsely depress this assay.Serum Triglycerides Reference Interval Normal <150 mg/dL Borderline high 150 - 199 mg/dL High 200 - 499 mg/dL Very High > or = 500 mg/dL WBC (Bld) [#/Vol] 6.5 10*3/uL 4.4-11.0 [facility] Bilirubin Test strip Ql (U)O rdered By: Dyan Kyle on 01-21-2023 Bilirubin Ql (U) Negative Negative [facility] Blood erythrocytes count (nu mber/volume)Ordered By: Dyan Kyle on 01-21-2023 RBC (Bld) [#/Vol] 4.51 10*6/uL 4.6-6.2 [facility] Blood hemoglobin measurement (mass/volume)Ordered By: Dyan Kyle on 01-21-2023 Hemoglobin (Bld) [Mass/Vol] 14.9 g/dL 13.0-16.5 [facility] Blood lymphocytes/100 leukoc ytesOrdered By: Dyan Kyle on 01-21-2023 Lymphocytes/100 WBC (Bld) 43.9 % 19-41 [facility] Blood monocytes/100 leukocyt esOrdered By: Dyan Kyle on 01-21-2023 Monocytes/100 WBC (Bld) 6.9 % 0-10 [facility] Blood platelet mean volumeOr dered By: Dyan Kyle on 01-21-2023 Platelet mean volume (Bld) [Entitic vol] 10.5 fL 6.2-12.0 [facility] Determination of erythrocyte mean corpuscular volume (MCV)Ordered By: Dyan Kyle on 01-21-2023 MCV (RBC) [Entitic vol] 102.2 fL 80-94 [facility] Erythrocyte sedimentation ra teOrdered By: Dyan Kyle on 01-21-2023 ESR (Bld) [Velocity] 6 mm/h 0-20 [facility] Hematocrit Auto (Bld) [Volum e fraction]Ordered By: Dyan Kyle on 01-21-2023 Hematocrit (Bld) [Volume fraction] 46.1 % 40-54 [facility] Ketones Test strip Ql (U)Ord ered By: Dyan Kyle on 01-21-2023 Ketones Ql (U) 5 mg/dl Negative [facility] Laboratory - Chemistry and C hemistry - challengeOrdered By: [facility] Dinoday[facility]ara on 01-21-2023 ALP [Catalytic activity/Vol] 84 U/L 45-117 [facility] ALT [Catalytic activity/Vol] 15 U/L 16-61 [facility] CO2 [Moles/Vol] 25.0 mmol/L 21.0-32.0 [facility] Free T4 [Mass/Vol] 1.15 ng/dL 0.76-1.46 [facility] Globulin (S) [Mass/Vol] 3.7 g/dL 2.2-4.2 [facility] Urea nitrogen/Creatinine [Mass ratio] 19.8 mg/mg 10-20 [facility] - Hematology and Cell countsOrdered By: evarochestervania Kyle on 01-21-2023 Erythrocyte distribution width (RBC) [Entitic vol] 50.8 fL 35.1-43.9 [facility] Erythrocyte distribution width (RBC) [Ratio] 13.3 % 11.6-14.6 [facility] Immature granulocytes/100 WBC (Bld) 0.300 % 0.0-0.9 [facility] Comment on above: IG% - Immature Granu locytes (promyelocytes, myelocytes and metamyelocytes) > 1% indicates that a LEFT SHIFT is Present. MCH (RBC) [Entitic mass] 33.0 pg 27.0-32.0 [facility] Nucleated RBC/100 WBC (Bld) [Ratio] 0 % 0-5 [facility] MCHC Auto (RBC) [Mass/Vol]Or dered By: Dyan Kyle on 01-21-2023 MCHC (RBC) [Mass/Vol] 32.3 g/dL 32-36 [facility] Mucus LM Ql (Urine sed)Order ed By: Dyan Kyle on 01-21-2023 Mucus Ql (Urine sed) 0 SEEN /hpf [facility] Nitrite Test strip Ql (U)Ord ered By: Dyan Kyle on 01-21-2023 Nitrite Ql (U) Negative Negative [facility] No Panel InformationOrdered By: Dyan Kyle on 01-21-2023 Estimated GFR (MDRD) Amer 81 mL/min >60 [facility] Comment on above: GFR Calc Estimated GFR (MDRD) Non-Af Amer 67 mL/min >60 [facility] Comment on above: Non- GFR Calc Prostate Specific Antigen Screen 513.00 ng/mL 0.00-4.00 [facility] Comment on above: This test was perfor med using the TPSA assay method for [employer] chemistry system. Values obtained with differentassay methods cannot be used interchangably.When changing PSA assays in the course of monitoring apatient, additional sequential testing should be carriedout to confirm baseline values. Thyroid Stimulating Hormone (TSH) 1.86 uIU/mL 0.358-3.74 [facility] Platelets bldOrdered By: Shayne Kyle on 01-21-2023 Platelets (Bld) [#/Vol] 213 10*3/uL 150-450 [facility] Protein Test strip Ql (U)Ord ered By: Dyan Kyle on 01-21-2023 Protein Ql (U) Negative Negative [facility] Serum or plasma albumin patricia urement (mass/volume)Ordered By: Dyan Kyle on 01-21-2023 Albumin [Mass/Vol] 3.5 g/dL 3.2-5.0 [facility] Serum or plasma albumin/glob ulin mass ratioOrdered By: Dyan Kyle on 01-21-2023 Albumin/Globulin [Mass ratio] 0.9 {ratio} 0.9-2.4 [facility] Serum or plasma calcium patricia urement (mass/volume)Ordered By: Dyan Kyle on 01-21-2023 Calcium [Mass/Vol] 9.2 mg/dL 8.5-10.1 [facility] Serum or plasma cholesterol in HDL measurement (mass/volume)Ordered By: Dyan Kyle on 01-21-2023 Cholesterol in HDL [Mass/Vol] 54 mg/dL >40 [facility] Comment on above: The drugs N-Acetylcy steine and Metamizole may falsely depress this assay. Reference Range HDL <40 mg/dL Low HDL Cholesterol HDL >or= 60 mg/dL High HDL Cholesterol Serum or plasma cholesterol in VLDL measurement (mass/volume)Ordered By: Dyan Kyle on 01-21-2023 Cholesterol in VLDL [Mass/Vol] 18 mg/dL 5-40 [facility] Serum or plasma creatinine m easurement (mass/volume)Ordered By: Dyan Kyle on 01-21-2023 Creatinine [Mass/Vol] 1.11 mg/dL 0.70-1.30 [facility] Comment on above: The validity of the calculated GFR & GFRAA in patients over 70 years has not been determined. Clinical correlation is essential. Serum or plasma low density lipoprotein (LDL) cholesterol measurement (mass/volume)Ordered By: Dyan Kyle on 01-21-2023 Cholesterol in LDL [Mass/Vol] 92 mg/dL 0-130 [facility] Serum or plasma urea nitroge n measurement (mass/volume)Ordered By: Dyan Kyle on 01-21-2023 Urea nitrogen [Mass/Vol] 22 mg/dL 7-18 [facility] Squamous epithelial cells de tection in urine sediment by light microscopyOrdered By: Dyan Kyle on 01-21-2023 Epithelial cells.squamous LM Ql (Urine sed) 0 SEEN /hpf 0-5 [facility] Thin prep Papanicolaou smear with manual screeningOrdered By: Dyan Kyle on 01-21-2023 Thin prep Papanicolaou smear with manual screening 14 U/L 15-37 [facility] Thin prep Papanicolaou smear with manual screening 7 5-15 [facility] Urine blood detectionOrdered By: Dyan Kyle on 01-21-2023 RBC Ql (U) Negative Negative [facility] RBC Ql (U) 0 SEEN /hpf 0-5 [facility] Urine clarityOrdered By: Shayne Kyle on 01-21-2023 Clarity (U) Clear Clear [facility] Urine color determinationOrd ered By: Dyan Kyle on 01-21-2023 Color (U) Yellow Yellow [facility] Urine glucose detectionOrder ed By: Dyan Kyle on 01-21-2023 Glucose Ql (U) Normal mg/dl Normal [facility] Urine leukocyte esterase det ection by dipstickOrdered By: Dyan Kyle on 01-21-2023 Leukocyte esterase Test strip Ql (U) Negative Negative [facility] Urine pHOrdered By: Essence Kyle on 01-21-2023 pH (U) 5.0 [pH] 5.0 - 8.0 [facility] Urine sediment bacteria coun t by microscopy (number/high power field)Ordered By: Dyan Kyle on 01-21-2023 Bacteria LM.HPF (Urine sed) [#/Area] 0 /[HPF] None Seen [facility] Urine specific gravity measu rementOrdered By: Dyan Kyle on 01-21-2023 Specific gravity (U) [Rel density] 1.020 1.002-1.030 [facility] Urobilinogen Auto test strip Ql (U)Ordered By: Dyan Kyle on 01-21-2023 Urobilinogen Ql (U) Normal mg/dl Normal [facility] Laboratory - Hematology and Cell countson 01-20-2023 HbA1c (Bld) [Mass fraction] 6.2 % 4.2-6.3 [facility] Absolute lymphocyte counton 11-28-2021 Lymphocytes Auto (Unsp spec) [#/Vol] 3.25 10*3/uL 0.83-4.51 [facility] Work Phone: Basophil percentageon 2021 Basophils/100 WBC (Bld) 0.6 % 0-1 [facility] Work Phone: Bilirubin [Mass/Vol] 0.80 mg/dL 0.20-1.00 [facility] Work Phone: Comment on above: For patients on eltr ombopag therapy, use of Dimension [place] TBIL is not recommended. Chloride [Moles/Vol] 111 mmol/L 98-107 [facility] Work Phone: Cholesterol [Mass/Vol] 167 mg/dL <200 [facility] Work Phone: Comment on above: <200 mg/dL Desirable 200-240 mg/dL Borderline >240 mg/dL High Risk Eosinophils/100 WBC (Bld) 1.4 % 0-5 [facility] Work Phone: Glucose [Mass/Vol] 122 mg/dL 74-106 [facility] Work Phone: Comment on above: Fasting Glucose resu lt from 100 to 125 mg/dL suggests IMPAIRED HOMEOSTASIS per A.D.A. criteria. Neutrophils (Bld) [#/Vol] 2.6 10*3/uL 2.0-7.7 [facility] Work Phone: Neutrophils/100 WBC (Bld) 40.4 % 47-70 [facility] Work Phone: Potassium [Moles/Vol] 4.6 mmol/L 3.5-5.1 [facility] Work Phone: Protein [Mass/Vol] 7.1 g/dL 6.4-8.2 [facility] Work Phone: Sodium [Moles/Vol] 142 mmol/L 136-145 [facility] Work Phone: Triglyceride [Mass/Vol] 67 mg/dL <199 [facility] Work Phone: Comment on above: The drugs N-Acetylcy steine and Metamizole may falsely depress this assay.Serum Triglycerides Reference Interval Normal <150 mg/dL Borderline high 150 - 199 mg/dL High 200 - 499 mg/dL Very High > or = 500 mg/dL WBC (Bld) [#/Vol] 6.4 10*3/uL 4.4-11.0 [facility] Work Phone: Blood erythrocytes count (nu mber/volume)on 11-28-2021 RBC (Bld) [#/Vol] 4.37 10*6/uL 4.6-6.2 [facility]: Blood hemoglobin measurement (mass/volume)on 11-28-2021 Hemoglobin (Bld) [Mass/Vol] 14.5 g/dL 13.0-16.5 [facility] Work Phone: Blood lymphocytes/100 leukoc yteson 11-28-2021 Lymphocytes/100 WBC (Bld) 50.5 % 19-41 [facility] Work Phone: Blood monocytes/100 leukocyt eson 11-28-2021 Monocytes/100 WBC (Bld) 6.8 % 0-10 [facility] Work Phone: Blood platelet mean volumeon 11-28-2021 Platelet mean volume (Bld) [Entitic vol] 10.8 fL 6.2-12.0 [facility] Work Phone: Determination of erythrocyte mean corpuscular volume (MCV)on 11-28-2021 MCV (RBC) [Entitic vol] 99.5 fL 80-94 [facility] Work Phone: Hematocrit Auto (Bld) [Volum e fraction]on 11-28-2021 Hematocrit (Bld) [Volume fraction] 43.5 % 40-54 [facility] Work Phone: Laboratory - Chemistry and C hemistry - challengeon 11-28-2021 ALP [Catalytic activity/Vol] 55 U/L 45-117 [facility] Work Phone: ALT [Catalytic activity/Vol] 16 U/L 16-61 [facility] Work Phone: CO2 [Moles/Vol] 29.0 mmol/L 21.0-32.0 [facility] Work Phone: Globulin (S) [Mass/Vol] 3.7 g/dL 2.2-4.2 [facility] Work Phone: Urea nitrogen/Creatinine [Mass ratio] 22.1 mg/mg 10-20 [facility] Work Phone: Laboratory - Hematology and Cell countson 11-28-2021 Erythrocyte distribution width (RBC) [Entitic vol] 48.6 fL 35.1-43.9 [facility] Work Phone: Erythrocyte distribution width (RBC) [Ratio] 13.2 % 11.6-14.6 [facility] Work Phone: Immature granulocytes/100 WBC (Bld) 0.300 % 0.0-0.9 [facility] Work Phone: Comment on above: IG% - Immature Granu locytes (promyelocytes, myelocytes and metamyelocytes) > 1% indicates that a LEFT SHIFT is Present. MCH (RBC) [Entitic mass] 33.2 pg 27.0-32.0 [facility] Work Phone: Nucleated RBC/100 WBC (Bld) [Ratio] 0 % 0-5 [facility] Work Phone: MCHC Auto (RBC) [Mass/Vol]on 11-28-2021 MCHC (RBC) [Mass/Vol] 33.3 g/dL 32-36 [facility] Work Phone: No Panel Informationon 11-28 Estimated GFR (MDRD) Amer 79 mL/min >60 [facility] Work Phone: Comment on above: GFR Calc Estimated GFR (MDRD) Non-Af Amer 66 mL/min >60 [facility] Work Phone: Comment on above: Non- GFR Calc Platelets bldon 11-28-2021 Platelets (Bld) [#/Vol] 193 10*3/uL 150-450 [facility] Work Phone: Serum or plasma albumin patricia urement (mass/volume)on 11-28-2021 Albumin [Mass/Vol] 3.4 g/dL 3.2-5.0 [facility] Work Phone: Serum or plasma albumin/glob ulin mass ratioon 11-28-2021 Albumin/Globulin [Mass ratio] 0.9 {ratio} 0.9-2.4 [facility] Work Phone: Serum or plasma calcium patricia urement (mass/volume)on 11-28-2021 Calcium [Mass/Vol] 9.0 mg/dL 8.5-10.1 [facility] Work Phone: Serum or plasma cholesterol in HDL measurement (mass/volume)on 11-28-2021 Cholesterol in HDL [Mass/Vol] 54 mg/dL >40 [facility] Work Phone: Comment on above: The drugs N-Acetylcy steine and Metamizole may falsely depress this assay. Reference Range HDL <40 mg/dL Low HDL Cholesterol HDL >or= 60 mg/dL High HDL Cholesterol Serum or plasma cholesterol in VLDL measurement (mass/volume)on 11-28-2021 Cholesterol in VLDL [Mass/Vol] 13 mg/dL 5-40 [facility] Work Phone: Serum or plasma creatinine m easurement (mass/volume)on 11-28-2021 Creatinine [Mass/Vol] 1.13 mg/dL 0.70-1.30 [facility] Work Phone: Comment on above: The validity of the calculated GFR & GFRAA in patients over 70 years has not been determined. Clinical correlation is essential. Serum or plasma low density lipoprotein (LDL) cholesterol measurement (mass/volume)on 11-28-2021 Cholesterol in LDL [Mass/Vol] 100 mg/dL 0-130 [facility] Work Phone: Serum or plasma urea nitroge n measurement (mass/volume)on 11-28-2021 Urea nitrogen [Mass/Vol] 25 mg/dL 7-18 [facility] Work Phone: Thin prep Papanicolaou smear with manual screeningon 11-28-2021 Thin prep Papanicolaou smear with manual screening 19 U/L 15-37 [facility] Work Phone: Thin prep Papanicolaou smear with manual screening 2 5-15 [facility] Work Phone: Laboratory - Hematology and Cell countson 11-27-2021 HbA1c (Bld) [Mass fraction] 5.7 % 4.2-6.3 [facility] Work Phone: CNPNon 12-13-2020 CNPN Telephone (INTMWS) JESS JAMES ([id number]) 1935 M Date Time Provider Department 12/13/20 JENNIFER TRENT INTWS During your visit today, we recorded the following information about you: Lily Nguyễn RN 12/13/2020 4:13 PM Signed Patient notified of results and provider's instructions. Joce Hernandez APRN.GEORGIE 11/28/2020 11:49 PM EDT Back to Top Kidney function improved. A1C trending up, continue Metformin along with focus on low carb/low sugar diet and maintaining healthy weight. ? Joce Hernandez APRN.[employer] MAP [employer] CHART Patient verbalizes understanding. Lily Nguyễn RN Allergies [...] Encounter Status:Closed by LILY NGUYỄN on 12/13/20 [facility] OBSOLETEon 12-13-2020 OBSOLETE Refill (INTMWS) JACOBJESS ([id number]) 1935 M Date Time Provider Department 12/13/20 [...] 6.1 06/04/2020 5.7 Please advise. Thank you. MAVIS Chaves APRN.[employer] 12/13/2020 4:15 PM Signed The following approved medication requests have been transmitted electronically. Signed Prescriptions Disp Refills metFORMIN ER (GLUCOPHAGE XR) 500 mg 24 hr tablet 90 tablet 3 Sig: Take 1 tablet by mouth daily with breakfast. MICA: No Authorizing Provider: JOCE HERNANDEZ APRN.[employer] MAP [employer] CHART Allergies As of Date: 12/13/2020 Noted Allergy [...] Encounter Status:Closed by [facility]OC[facility] Nurse Visit (FAMPWS) JESS JAMES ([id number]) 1935 M Date Time Provider Department 11/28/20 9:45 AM [place] [facility] visit today, we recorded the [...] by PCP. Sophia Pineda LPN Referring Provider: JOCE HERNANDEZ [[id number]] Allergies As of Date: 11/28/2020 Noted Allergy [...] Status:Closed by SOPHIA PINEDA LPN [facility] Telephone (INTMWS) JESS JAMES ([id number]) 1935 M Date Time Provider Department 11/28/20 JENNIFER TRENT INTSabineWS During your visit today, we recorded [...] by HAILEY PIMENTEL MA on 11/29/20 Normal [facility] Remote BMP (for [facility] use only )on 11-22-2020 Anion gap [Moles/Vol] 12 mmol/L Normal 9-18 [facility] Comment on above: Performed By: #### R BMP, RHBA1C #### [facility] [address] [place] [address] Calcium [Mass/Vol] 9.4 mg/dL Normal 8.5-10.2 [facility] Comment on above: Performed By: #### R BMP, RHBA1C #### [place] [address] Chloride [Moles/Vol] 107 mmol/L High 97-105 [facility] Comment on above: Performed By: #### R BMP, RHBA1C #### [place] [phone] CO2 [Moles/Vol] 24 mmol/L Normal 22-30 [facility] Comment on above: Performed By: #### R BMP, RHBA1C #### [place] [phone] Creatinine [Mass/Vol] 1.15 mg/dL Normal 0.73-1.22 [facility] Comment on above: Performed By: #### R BMP, RHBA1C #### [place] [address] eGFR- Amer. >60 Normal [facility] Comment on above: Performed By: #### R BMP, RHBA1C #### [place] [phone] eGFR-All Other Races >60 Normal [facility] Comment on above: Result Comment: eGFR [...] Performed By: #### R BMP, RHBA1C #### [facility] [employer] [address] [place], [place] [address] Glucose [Mass/Vol] 113 mg/dL High 74-99 [facility] Comment on above: Result Comment: The [place] Diabetes Association (ADA) provides guidance for cutoff [...] Standards of Medical Care in Diabetes 2016, [place] [employer] Association. Diabetes Care. 2016.39(Suppl 1). Performed By: #### R WARREN, RHBA1C #### [facility] [employer] [address], [place] [address] Potassium [Moles/Vol] 4.5 mmol/L Normal 3.7-5.1 [facility] Comment on above: Performed By: #### R BMP, RHBA1C #### [facility] [employer] [address], [place] [address] Sodium [Moles/Vol] 143 mmol/L Normal 136-144 [facility] Comment on above: Performed By: #### R BMP, RHBA1C #### [facility] [employer] [address] [place], [place] [address] Urea nitrogen [Mass/Vol] 27 mg/dL High 9-24 [facility] Comment on above: Performed By: #### R BMP, RHBA1C #### [facility] [employer] [address] [place], [place] [address] Remote HBA1C (for [facility] use on ly)on 11-22-2020 Glucose [Mass/Vol] 128 mg/dL Normal [facility] Comment on above: Result Comment: eAG: (Estimated average glucose) is a calculated value from HgbA1c and is petroleum products sales representative of the average blood glucose level in the last 2-3 month period. Performed By: #### R BMP, RHBA1C #### [facility] [employer] [address] [place], [place] [address] HbA1c (Bld) [Mass fraction] 6.1 % High 4.3-5.6 [facility] Comment on above: Result Comment: [place] Diabetes Association guidelines indicate that patients with HgbA1c in the range 5.7-6.4% are at increased risk for development of diabetes, and intervention by lifestyle modification may be beneficial. HgbA1c greater or equal to 6.5% is considered diagnostic of diabetes. Performed By: #### R BMP, RHBA1C #### [facility] [employer] [address] [place], [place] [address] [place] 09-24-2020 [facility] Telephone (PSYLME) JESS JAMES ([id number]) 1935 M Date Time Provider Department 09/24/20 FAUSTO DUBOIS During your visit today, we recorded the following information about you: TYRESE Young 09/24/2020 1:42 PM Signed Behavioral Health Social Work Progress Note Patient identified for [facility] from: PCP (Joce Hernandez CNP) Reason for referral: Resources Behavioral Health Resources: Psychology - talk therapy (situational depression) [facility] encounter type: Telephone Encounter Attempts to Outreach: 1 attempt Final Disposition: Unable to reach (09-24-20 let vm) Patient Discharged?: No Patient reported that caregiver was able to meet their needs today?: N/A [facility] received a consult from Joce Hernandez CNP, for psychology, to address situational depression -since pandemic increased emotions -doesn't go anywhere -isolation has been depressing -several friends have [facility] reviewed Pt's chart/insurance Pt resides in [place]/[employer] medicare [facility] attempted to contact Pt at [phone] -no answer -left vm to return call to [phone] -also left on voice message [facility] will be sending resources in a ltr [facility] will send the following resources in a ltr: [facility] [address], [facility] [id number] [facility] [address] [place], [place] [address] [address] [facility] [address] [place], [place] [id number] [facility] Sarah Enedina [place], [place] [id number] If you are interested in receiving psychiatry/psychology services at the [facility], a behavioral health assessment needs to be completed prior to seeing a provider, I would be happy to complete your assessment, please call me at [phone] to schedule a virtual appointment. Crisis line [phone] [facility] will f/u with Pt ELOINA Young September 24, 2020 Allergies As of Date: 09/24/2020 Noted Allergy Reaction SHELLFISH DERIVED 12/12/2015 7 - Swelling Date Reviewed: 09/20/2020 Reviewed by: Viki Up MA - Fully Assessed Reason for Visit: Consult [173] Cmt: Initial [facility] Pt Outreach Prescriptions as of 09/24/2020 Sig: METFORMIN ER 500 MG TABLET,EX* Take 1 tablet by mouth daily * CENTRUM SILVER MEN ORAL Take by mouth. Problem List As Of Date 09/24/2020 Noted Resolved Closed fracture of part of fibula [S82.409A] 12/24/2015 Letter Text Encounter Status:Closed by FAUSTO DUBOIS on 09/24/20 Normal [facility] CNOVon 09-20-2020 CNOV Office Visit (INTMWS ) JESS JAMES ([id number]) 1935 M Date Time Provider Department 09/20/20 12:40 PM JOCE HERNANDEZ During your visit today, we recorded the following information about you: Pulse Respiration Blood pressure Weight 88/minute 16/minute 150/96 84.4 kg Height 1.791 m Joce Hernandez APRN.FINISHER MAP AND CHART 09/23/2020 8:09 AM Signed CC: Patient presents [...] 88 Resp 16 Ht 179.1 cm (5' 10.5) Wt 84.4 kg (186 lb) BMI 26.31 [...] - BMP (more content not included)... Normal [facility] OBSOLETEon 09-16-2020 OBSOLETE Refill (INTMWS) JESS JAMES ([id number]) 1935 M Date Time Provider Department 09/16/20 JOCE HERNANDEZ (GEORGIE) INTMWS During your visit today, we recorded [...] Status:Closed by JENNIFER TRENT on 09/17/20 Normal [facility] Vital Signs Date Time Vital Sign Value Performing Clinician Jason dailey 01-15-2025 08:03-0400 Body height 177.[address] Dyan Kyle MD Work Phone: [facility] 01-15-2025 08:03-0400 Body mass index (BMI) [Ratio] 24 kg/m2 Dr. Dyan Kyle MD Work Phone: [facility] 01-15-2025 08:03-0400 Body temperature 98.6 [degF] Dr. Dyan Kyle MD Work Phone: [facility] 01-15-2025 08:03-0400 Body weight 76.[address] Dyan Kyle MD Work Phone: [facility] 01-15-2025 08:03-0400 Diastolic blood pressure 46 mm[Hg] Dr. Dyan Kyle MD Work Phone: [facility] 01-15-2025 08:03-0400 Heart rate 58 /min Dr. Dyan Kyle MD Work Phone: [facility] 01-15-2025 08:03-0400 Respiratory rate 14 /min Dr. Dyan Kyle MD Work Phone: [facility] 01-15-2025 08:03-0400 Systolic blood pressure 94 mm[Hg] Dr. Dyan Kyle MD Work Phone: [facility] 12-24-2024 13:49-0400 Body temperature 98.5 [degF] Dr. Dyan Kyle MD Work Phone: [facility] 12-24-2024 13:49-0400 Diastolic blood pressure 60 mm[Hg] Dr. Dyan Kyle MD Work Phone: [facility] 12-24-2024 13:49-0400 Heart rate 83 /min Dr. Dyan Kyle MD Work Phone: [facility] 12-24-2024 13:49-0400 Respiratory rate 18 /min Dr. Dyan Kyle MD Work Phone: [facility] 12-24-2024 13:49-0400 SaO2% (BldA) [Mass fraction] 95 % Dr. Dyan Kyle MD Work Phone: [facility] 12-24-2024 13:49-0400 Systolic blood pressure 108 mm[Hg] Dr. Dyan Kyle MD Work Phone: [facility] 12-21-2024 16:07-0400 Body height 177.[address] Dyan Kyle MD Work Phone: [facility] 12-21-2024 16:07-0400 Body weight 81.[address] Dyan Kyle MD Work Phone: [facility] 12-19-2024 21:40-0400 Inhaled oxygen flow rate 2 L/min Dr. Dyan Kyle MD Work Phone: [facility] 12-19-2024 10:42-0400 Body mass index (BMI) [Ratio] 25.7 kg/m2 Dr. Dyan Kyle MD Work Phone: [facility] 12-18-2024 15:03-0400 Body temperature 97.8 [degF] Dr. Dyan Kyle MD Work Phone: [facility] 12-18-2024 15:03-0400 Diastolic blood pressure 87 mm[Hg] Dr. Dyan Kyle MD Work Phone: [facility] 12-18-2024 15:03-0400 Heart rate 59 /min Dr. Dyan Kyle MD Work Phone: [facility] 12-18-2024 15:03-0400 Respiratory rate 16 /min Dr. Dyan Kyle MD Work Phone: [facility] 12-18-2024 15:03-0400 SaO2% (BldA) [Mass fraction] 98 % Dr. Dyan Kyle MD Work Phone: [facility] 12-18-2024 15:03-0400 Systolic blood pressure 144 mm[Hg] Dr. Dyan Kyle MD Work Phone: [facility] 12-18-2024 11:52-0400 Body height 177.[address] Dyan Kyle MD Work Phone: [facility] 12-18-2024 11:52-0400 Body mass index (BMI) [Ratio] 26.4 kg/m2 Dr. Dyan Kyle MD Work Phone: [facility] 12-18-2024 11:52-0400 Body weight 83.[address] Dyan Kyle MD Work Phone: [facility] 11-07-2024 15:34-0400 Body temperature 97.5 [degF] Dr. Dyan Kyle MD Work Phone: [facility] 11-07-2024 15:34-0400 Diastolic blood pressure 74 mm[Hg] Dr. Dyan Kyle MD Work Phone: [facility] 11-07-2024 15:34-0400 Heart rate 49 /min Dr. Dyan Kyle MD Work Phone: [facility] 11-07-2024 15:34-0400 Respiratory rate 16 /min Dr. Dyan Kyle MD Work Phone: [facility] 11-07-2024 15:34-0400 SaO2% (BldA) [Mass fraction] 98 % Dr. Dyan Kyle MD Work Phone: [facility] 11-07-2024 15:34-0400 Systolic blood pressure 141 mm[Hg] Dr. Dyan Kyle MD Work Phone: [facility] 11-07-2024 14:56-0400 Body mass index (BMI) [Ratio] 25.5 kg/m2 Dr. Dyan Kyle MD Work Phone: [facility] 11-07-2024 14:56-0400 Body weight 80.[address] Dyan Kyle MD Work Phone: [facility] 11-07-2024 13:50-0400 Body height 177.[address] Dyan Kyle MD Work Phone: [facility] 11-07-2024 13:50-0400 Body mass index (BMI) [Ratio] 25.5 kg/m2 Dr. Dyan Kyle MD Work Phone: [facility] 11-07-2024 13:50-0400 Body temperature 97.9 [degF] Dr. Dyan Kyle MD Work Phone: [facility] 11-07-2024 13:50-0400 Body weight 80.[address] Dyan Kyle MD Work Phone: [facility] 11-07-2024 13:50-0400 Diastolic blood pressure 70 mm[Hg] Dr. Dyan Kyle MD Work Phone: [facility] 11-07-2024 13:50-0400 Heart rate 50 /min Dr. Dyan Kyle MD Work Phone: [facility] 11-07-2024 13:50-0400 Respiratory rate 16 /min Dr. Dyan Kyle MD Work Phone: [facility] 11-07-2024 13:50-0400 SaO2% (BldA) [Mass fraction] 94 % Dr. Dyan Kyle MD Work Phone: [facility] 11-07-2024 13:50-0400 Systolic blood pressure 130 mm[Hg] Dr. Dyan Kyle MD Work Phone: [facility] 10-25-2024 14:46-0400 Body height 177.[address] Dyan Kyle MD Work Phone: [facility] 10-25-2024 14:46-0400 Body mass index (BMI) [Ratio] 25.1 kg/m2 Dr. Dayn Kyle MD Work Phone: [facility] 10-25-2024 14:46-0400 Body temperature 97.7 [degF] Dr. Dyan Kyle MD Work Phone: [facility] 10-25-2024 14:46-0400 Body weight 79.[address] Dyan Kyle MD Work Phone: [facility] 10-25-2024 14:46-0400 Diastolic blood pressure 64 mm[Hg] Dr. Dyan Kyle MD Work Phone: [facility] 10-25-2024 14:46-0400 Heart rate 48 /min Dr. Dyan Kyle MD Work Phone: [facility] 10-25-2024 14:46-0400 Respiratory rate 16 /min Dr. Dyan Kyle MD Work Phone: [facility] 10-25-2024 14:46-0400 SaO2% (BldA) [Mass fraction] 97 % Dr. Dyan Kyle MD Work Phone: [facility] 10-25-2024 14:46-0400 Systolic blood pressure 110 mm[Hg] Dr. Dyan Kyle MD Work Phone: [facility] 09-26-2024 14:20-0400 Body mass index (BMI) [Ratio] 25.2 kg/m2 Dr. Dyan Kyle MD Work Phone: [facility] 09-26-2024 14:20-0400 Body temperature 97.3 [degF] Dr. Dyan Kyle MD Work Phone: [facility] 09-26-2024 14:20-0400 Body weight 79.[address] Dyan Kyle MD Work Phone: [facility] 09-26-2024 14:20-0400 Diastolic blood pressure 73 mm[Hg] Dr. Dyan Kyle MD Work Phone: [facility] 09-26-2024 14:20-0400 Heart rate 48 /min Dr. Dyan Kyle MD Work Phone: [facility] 09-26-2024 14:20-0400 Respiratory rate 16 /min Dr. Dyan Kyle MD Work Phone: [facility] 09-26-2024 14:20-0400 SaO2% (BldA) [Mass fraction] 93 % Dr. Dyan Kyle MD Work Phone: [facility] 09-26-2024 14:20-0400 Systolic blood pressure 121 mm[Hg] Dr. Dyan Kyle MD Work Phone: [facility] 09-12-2024 07:41-0400 Body mass index (BMI) [Ratio] 25.1 kg/m2 Dr. Dyan Kyle MD Work Phone: [facility] 09-12-2024 07:41-0400 Body weight 79.[address] Dyna Kyle MD Work Phone: [facility] 09-12-2024 07:41-0400 Diastolic blood pressure 89 mm[Hg] Dr. Dyan Kyle MD Work Phone: [facility] 09-12-2024 07:41-0400 Heart rate 59 /min Dr. Dyan Kyle MD Work Phone: [facility] 09-12-2024 07:41-0400 Respiratory rate 18 /min Dr. Dyan Kyle MD Work Phone: [facility] 09-12-2024 07:41-0400 SaO2% (BldA) [Mass fraction] 96 % Dr. Dyan Kyle MD Work Phone: [facility] 09-12-2024 07:41-0400 Systolic blood pressure 135 mm[Hg] Dr. Dyan Kyle MD Work Phone: [facility] 08-15-2024 17:04-0400 Diastolic blood pressure 55 mm[Hg] Dr. Dyan Kyle MD Work Phone: [facility] 08-15-2024 17:04-0400 Heart rate 48 /min Dr. Dyan Kyle MD Work Phone: [facility] 08-15-2024 17:04-0400 Respiratory rate 16 /min Dr. Dyan Kyle MD Work Phone: [facility] 08-15-2024 17:04-0400 Systolic blood pressure 140 mm[Hg] Dr. Dyan Kyle MD Work Phone: [facility] 08-15-2024 15:18-0400 Body mass index (BMI) [Ratio] 25.4 kg/m2 Dr. Dyan Kyle MD Work Phone: [facility] 08-15-2024 15:18-0400 Body temperature 97.7 [degF] Dr. Dyan Kyle MD Work Phone: [facility] 08-15-2024 15:18-0400 Body weight 80.[address] Dyan Kyle MD Work Phone: [facility] 08-15-2024 15:18-0400 Diastolic blood pressure 69 mm[Hg] Dr. Dyan Kyle MD Work Phone: [facility] 08-15-2024 15:18-0400 Heart rate 38 /min Dr. Dyan Kyle MD Work Phone: [facility] 08-15-2024 15:18-0400 Respiratory rate 16 /min Dr. Dyan Kyle MD Work Phone: [facility] 08-15-2024 15:18-0400 SaO2% (BldA) [Mass fraction] 94 % Dr. Dyan Kyle MD Work Phone: [facility] 08-15-2024 15:18-0400 Systolic blood pressure 132 mm[Hg] Dr. Dyan Kyle MD Work Phone: [facility] 07-04-2024 14:07-0500 Body height 177.[address] Dyan Kyle MD Work Phone: [facility] 07-04-2024 14:07-0500 Body mass index (BMI) [Ratio] 25.2 kg/m2 Dr. Dyan Kyle MD Work Phone: [facility] 07-04-2024 14:07-0500 Body temperature 97.6 [degF] Dr. Dyan Kyle MD Work Phone: [facility] 07-04-2024 14:07-0500 Body weight [address] Dyan Kyle MD Work Phone: [facility] 07-04-2024 14:07-0500 Diastolic blood pressure 82 mm[Hg] Dr. Dyan Kyle MD Work Phone: [facility] 07-04-2024 14:07-0500 Heart rate 53 /min Dr. Dyan Kyle MD Work Phone: [facility] 07-04-2024 14:07-0500 Respiratory rate 16 /min Dr. Dyan Kyle MD Work Phone: [facility] 07-04-2024 14:07-0500 SaO2% (BldA) [Mass fraction] 96 % Dr. Dyan Kyle MD Work Phone: [facility] 07-04-2024 14:07-0500 Systolic blood pressure 158 mm[Hg] Dr. Dyan Kyle MD Work Phone: [facility] 06-03-2024 18:38-0500 Body temperature 96.8 [degF] Dr. Dyan Kyle MD Work Phone: [facility] 06-03-2024 18:38-0500 Diastolic blood pressure 67 mm[Hg] Dr. Dyan Kyle MD Work Phone: [facility] 06-03-2024 18:38-0500 Heart rate 57 /min Dr. Dyan Kyle MD Work Phone: [facility] 06-03-2024 18:38-0500 Respiratory rate 18 /min Dr. Dyan Kyle MD Work Phone: [facility] 06-03-2024 18:38-0500 SaO2% (BldA) [Mass fraction] 96 % Dr. Dyan Kyle MD Work Phone: [facility] 06-03-2024 18:38-0500 Systolic blood pressure 143 mm[Hg] Dr. Dyan Kyle MD Work Phone: [facility] 05-23-2024 12:17-0500 Body temperature 96.3 [degF] Dr. Dyan Kyle MD Work Phone: [facility] 05-23-2024 12:17-0500 Diastolic blood pressure 64 mm[Hg] Dr. Dyan Kyle MD Work Phone: [facility] 05-23-2024 12:17-0500 Heart rate 51 /min Dr. Dyan Kyle MD Work Phone: [facility] 05-23-2024 12:17-0500 Respiratory rate 16 /min Dr. Dyan Kyle MD Work Phone: [facility] 05-23-2024 12:17-0500 SaO2% (BldA) [Mass fraction] 95 % Dr. Dyan Kyle MD Work Phone: [facility] 05-23-2024 12:17-0500 Systolic blood pressure 128 mm[Hg] Dr. Dyan Kyle MD Work Phone: [facility] 05-23-2024 11:23-0500 Body mass index (BMI) [Ratio] 25.2 kg/m2 Dr. Dyan Kyle MD Work Phone: [facility] 05-23-2024 10:32-0500 Body mass index (BMI) [Ratio] 25.2 kg/m2 Dr. Dyan Kyle MD Work Phone: [facility] 05-23-2024 10:32-0500 Body temperature 976 [degF] Dr. Dyan Kyle MD Work Phone: [facility] 05-23-2024 10:32-0500 Body weight 79.[address] Dyan Kyle MD Work Phone: [facility] 05-23-2024 10:32-0500 Diastolic blood pressure 66 mm[Hg] Dr. Dyan Kyle MD Work Phone: [facility] 05-23-2024 10:32-0500 Heart rate 53 /min Dr. Dyan Kyle MD Work Phone: [facility] 05-23-2024 10:32-0500 Respiratory rate 18 /min Dr. Dyan Kyle MD Work Phone: [facility] 05-23-2024 10:32-0500 SaO2% (BldA) [Mass fraction] 97 % Dr. Dyan Kyle MD Work Phone: [facility] 05-23-2024 10:32-0500 Systolic blood pressure 138 mm[Hg] Dr. Dyan Kyle MD Work Phone: [facility] 04-26-2024 16:45-0500 Body mass index (BMI) [Ratio] 17.8 kg/m2 Dr. Dyan Kyle MD Work Phone: [facility] 04-26-2024 16:45-0500 Body temperature 99.5 [degF] Dr. Dyan Kyle MD Work Phone: [facility] 04-26-2024 16:45-0500 Body weight 56.[address] Dyan Kyle MD Work Phone: [facility] 04-26-2024 16:45-0500 Diastolic blood pressure 78 mm[Hg] Dr. Dyan Kyle MD Work Phone: [facility] 04-26-2024 16:45-0500 Heart rate 48 /min Dr. Dyan Kyle MD Work Phone: [facility] 04-26-2024 16:45-0500 Respiratory rate 16 /min Dr. Dyan Kyle MD Work Phone: [facility] 04-26-2024 16:45-0500 SaO2% (BldA) [Mass fraction] 98 % Dr. Dyan Kyle MD Work Phone: [facility] 04-26-2024 16:45-0500 Systolic blood pressure 126 mm[Hg] Dr. Dyan Kyle MD Work Phone: [facility] 07-07-2023 10:40-0500 Body height 177.[address] Dyan Kyle Work Phone: [facility] 07-07-2023 10:40-0500 Body mass index (BMI) [Ratio] 25 kg/m2 Dr. Dyan Kyle Work Phone: [facility] 07-07-2023 10:40-0500 Body temperature 97.3 [degF] Dr. Dyan Kyle Work Phone: [facility] 07-07-2023 10:40-0500 Body weight 79.[address] Dyan Kyle Work Phone: [facility] 07-07-2023 10:40-0500 Diastolic blood pressure 80 mm[Hg] Dr. Dyan Kyle Work Phone: [facility] 07-07-2023 10:40-0500 Heart rate 92 /min Dr. Dyan Kyle Work Phone: [facility] 07-07-2023 10:40-0500 Respiratory rate 16 /min Dr. Dyan Kyle Work Phone: [facility] 07-07-2023 10:40-0500 SaO2% (BldA) [Mass fraction] 97 % Dr. Dyan Kyle Work Phone: [facility] 07-07-2023 10:40-0500 Systolic blood pressure 138 mm[Hg] Dr. Dyan Kyle Work Phone: [facility] 06-21-2023 16:21-0500 Body temperature 96.6 [degF] Dr. Dyan Kyle Work Phone: [facility] 06-21-2023 16:21-0500 Diastolic blood pressure 78 mm[Hg] Dr. Dyan Kyle Work Phone: [facility] 06-21-2023 16:21-0500 Heart rate 75 /min Dr. Dyan Kyle Work Phone: [facility] 06-21-2023 16:21-0500 Respiratory rate 16 /min Dr. Dyan Kyle Work Phone: [facility] 06-21-2023 16:21-0500 SaO2% (BldA) [Mass fraction] 99 % Dr. Dyan Kyle Work Phone: [facility] 06-21-2023 16:21-0500 Systolic blood pressure 143 mm[Hg] Dr. Dyan Kyle Work Phone: [facility] 06-21-2023 15:20-0500 Body height 177.[address] Dyan Kyle Work Phone: [facility] 06-21-2023 14:14-0500 Body mass index (BMI) [Ratio] 25.5 kg/m2 Dr. Dyan Kyle Work Phone: [facility] 06-21-2023 14:14-0500 Body temperature 97.8 [degF] Dr. Dyan Kyle Work Phone: [facility] 06-21-2023 14:14-0500 Body weight 80.[address] Dyan Kyle Work Phone: [facility] 06-21-2023 14:14-0500 Diastolic blood pressure 92 mm[Hg] Dr. Dyan Kyle Work Phone: [facility] 06-21-2023 14:14-0500 Heart rate 98 /min Dr. Dyan Kyle Work Phone: [facility] 06-21-2023 14:14-0500 Respiratory rate 15 /min Dr. Dyan Kyle Work Phone: [facility] 06-21-2023 14:14-0500 SaO2% (BldA) [Mass fraction] 97 % Dr. Dyan Kyle Work Phone: [facility] 06-21-2023 14:14-0500 Systolic blood pressure 169 mm[Hg] Dr. Dyan Kyle Work Phone: [facility] 05-10-2023 11:38-0500 Body height 177.[address] Dyan Kyle Work Phone: [facility] 05-10-2023 11:38-0500 Body mass index (BMI) [Ratio] 25.7 kg/m2 Dr. Dyan Kyle Work Phone: [facility] 05-10-2023 11:38-0500 Body temperature 98.3 [degF] Dr. Dyan Kyle Work Phone: [facility] 05-10-2023 11:38-0500 Body weight 81.[address] Dyan Kyle Work Phone: [facility] 05-10-2023 11:38-0500 Diastolic blood pressure 78 mm[Hg] Dr. Dyan Kyle Work Phone: [facility] 05-10-2023 11:38-0500 Heart rate 78 /min Dr. Dyan Kyle Work Phone: [facility] 05-10-2023 11:38-0500 Respiratory rate 18 /min Dr. Dyan Kyle Work Phone: [facility] 05-10-2023 11:38-0500 SaO2% (BldA) [Mass fraction] 97 % Dr. Dyan Kyle Work Phone: [facility] 05-10-2023 11:38-0500 Systolic blood pressure 140 mm[Hg] Dr. Dyan Kyle Work Phone: [facility] 03-29-2023 16:39-0500 Body temperature 97 [degF] Dr. Dyan Kyle Work Phone: [facility] 03-29-2023 16:39-0500 Diastolic blood pressure 68 mm[Hg] Dr. yDan Kyle Work Phone: [facility] 03-29-2023 16:39-0500 Heart rate 67 /min Dr. Dyan Kyle Work Phone: [facility] 03-29-2023 16:39-0500 Respiratory rate 16 /min Dr. Dyan Kyle Work Phone: [facility] 03-29-2023 16:39-0500 SaO2% (BldA) [Mass fraction] 100 % Dr. Dyan Kyle Work Phone: [facility] 03-29-2023 16:39-0500 Systolic blood pressure 142 mm[Hg] Dr. Dyan Kyle Work Phone: [facility] 03-29-2023 15:37-0500 Body height 177.[address] Dyan Kyle Work Phone: [facility] 03-29-2023 15:37-0500 Body mass index (BMI) [Ratio] 25.3 kg/m2 Dr. Dyan Kyle Work Phone: [facility] 03-29-2023 15:37-0500 Body weight 80.[address] Dyan Kyle Work Phone: [facility] 03-29-2023 14:59-0500 Body mass index (BMI) [Ratio] 25.3 kg/m2 Dr. Dyan Kyle Work Phone: [facility] 03-29-2023 14:59-0500 Body temperature 97.5 [degF] Dr. Dyan Kyle Work Phone: [facility] 03-29-2023 14:59-0500 Body weight 80.[address] Dyan Kyle Work Phone: [facility] 03-29-2023 14:59-0500 Diastolic blood pressure 77 mm[Hg] Dr. Dyan Kyle Work Phone: [facility] 03-29-2023 14:59-0500 Heart rate 79 /min Dr. Dyan Kyle Work Phone: [facility] 03-29-2023 14:59-0500 Respiratory rate 18 /min Dr. Dyan Kyle Work Phone: [facility] 03-29-2023 14:59-0500 SaO2% (BldA) [Mass fraction] 97 % Dr. Dyan Kyle Work Phone: [facility] 03-29-2023 14:59-0500 Systolic blood pressure 151 mm[Hg] Dr. Dyan Kyle Work Phone: [facility] 03-24-2023 10:37-0400 Body mass index (BMI) [Ratio] 25.5 kg/m2 Dr. Dyan Kyle Work Phone: [facility] 03-24-2023 10:37-0400 Body temperature 97.9 [degF] Dr. Dyan Kyle Work Phone: [facility] 03-24-2023 10:37-0400 Body weight 80.[address] Dyan Kyle Work Phone: [facility] 03-24-2023 10:37-0400 Diastolic blood pressure 62 mm[Hg] Dr. Dyan Kyle Work Phone: [facility] 03-24-2023 10:37-0400 Heart rate 53 /min Dr. Dyan Kyle Work Phone: [facility] 03-24-2023 10:37-0400 Respiratory rate 16 /min Dr. Dyan Kyle Work Phone: [facility] 03-24-2023 10:37-0400 SaO2% (BldA) [Mass fraction] 93 % Dr. Dyan Kyle Work Phone: [facility] 03-24-2023 10:37-0400 Systolic blood pressure 120 mm[Hg] Dr. Dyan Kyle Work Phone: [facility] 02-24-2023 10:38-0400 Body height 177.[address] Dyan Kyle Work Phone: [facility] 02-24-2023 10:38-0400 Body mass index (BMI) [Ratio] 25.4 kg/m2 Dr. Dyan Kyle Work Phone: [facility] 02-24-2023 10:38-0400 Body temperature 97.5 [degF] Dr. Dyan Kyle Work Phone: [facility] 02-24-2023 10:38-0400 Body weight 80.[address] Dyan Kyle Work Phone: [facility] 02-24-2023 10:38-0400 Diastolic blood pressure 76 mm[Hg] Dr. Dyan Kyle Work Phone: [facility] 02-24-2023 10:38-0400 Heart rate 102 /min Dr. Dyan Kyle Work Phone: [facility] 02-24-2023 10:38-0400 Respiratory rate 16 /min Dr. Dyan Kyle Work Phone: [facility] 02-24-2023 10:38-0400 SaO2% (BldA) [Mass fraction] 94 % Dr. Dyan Kyle Work Phone: [facility] 02-24-2023 10:38-0400 Systolic blood pressure 134 mm[Hg] Dr. Dyan Kyle Work Phone: [facility] 02-17-2023 13:11-0400 Body height 177.[address] Dyan Kyle Work Phone: [facility] 02-17-2023 13:11-0400 Body mass index (BMI) [Ratio] 25.9 kg/m2 Dr. Dyan Kyle Work Phone: [facility] 02-17-2023 13:11-0400 Body temperature 97.4 [degF] Dr. Dyan Kyle Work Phone: [facility] 02-17-2023 13:11-0400 Body weight 81.[address] Dyan Kyle Work Phone: [facility] 02-17-2023 13:11-0400 Diastolic blood pressure 78 mm[Hg] Dr. Dyan Kyle Work Phone: [facility] 02-17-2023 13:11-0400 Heart rate 86 /min Dr. Dyan Kyle Work Phone: [facility] 02-17-2023 13:11-0400 Respiratory rate 18 /min Dr. Dyan Kyle Work Phone: [facility] 02-17-2023 13:11-0400 SaO2% (BldA) [Mass fraction] 96 % Dr. Dyan Kyle Work Phone: [facility] 02-17-2023 13:11-0400 Systolic blood pressure 126 mm[Hg] Dr. Dyan Kyle Work Phone: [facility] 02-14-2023 07:58-0400 SaO2% (BldA) [Mass fraction] 97 % Dr. Dyan Kyle Work Phone: [facility] 02-14-2023 07:40-0400 Body temperature 97.7 [degF] Dr. Dyan Kyle Work Phone: [facility] 02-14-2023 07:40-0400 Diastolic blood pressure 77 mm[Hg] Dr. Dyan Kyle Work Phone: [facility] 02-14-2023 07:40-0400 Heart rate 79 /min Dr. Dyan Kyle Work Phone: [facility] 02-14-2023 07:40-0400 Respiratory rate 16 /min Dr. Dyan Kyle Work Phone: [facility] 02-14-2023 07:40-0400 Systolic blood pressure 140 mm[Hg] Dr. Dyan Kyle Work Phone: [facility] 02-14-2023 06:00-0400 Body mass index (BMI) [Ratio] 25.7 kg/m2 Dr. Dyan Kyle Work Phone: [facility] 02-14-2023 06:00-0400 Body weight 81.[address] Dyan Kyle Work Phone: [facility] 02-14-2023 05:41-0400 Inhaled oxygen flow rate 2 L/min Dr. Dyan Kyle Work Phone: [facility] 02-12-2023 16:45-0400 Body height 177.[address] Dyan Kyle Work Phone: [facility] 02-12-2023 15:44-0400 Body temperature 98.3 [degF] Dr. Dyan Kyle Work Phone: [facility] 02-12-2023 15:44-0400 Diastolic blood pressure 76 mm[Hg] Dr. Dyan Kyle Work Phone: [facility] 02-12-2023 15:44-0400 Heart rate 85 /min Dr. Dyan Kyle Work Phone: [facility] 02-12-2023 15:44-0400 Respiratory rate 20 /min Dr. Dyan Kyle Work Phone: [facility] 02-12-2023 15:44-0400 SaO2% (BldA) [Mass fraction] 95 % Dr. Dyan Kyle Work Phone: [facility] 02-12-2023 15:44-0400 Systolic blood pressure 160 mm[Hg] Dr. Dyan Kyle Work Phone: [facility] 02-12-2023 12:54-0400 Body height 177.[address] Dyan Kyle Work Phone: [facility] 02-12-2023 12:54-0400 Body mass index (BMI) [Ratio] 25.5 kg/m2 Dr. Dyan Kyle Work Phone: [facility] 02-12-2023 12:54-0400 Body weight 80.[address] Dyan Kyle Work Phone: [facility] 02-12-2023 11:36-0400 Body mass index (BMI) [Ratio] 24 kg/m2 Dr. Dyan Kyle Work Phone: [facility] 02-12-2023 11:36-0400 Body temperature 99.6 [degF] Dr. Dyan Kyle Work Phone: [facility] 02-12-2023 11:36-0400 Body weight 80.[address] Dyan Kyle Work Phone: [facility] 02-12-2023 11:36-0400 Diastolic blood pressure 76 mm[Hg] Dr. Dyan Kyle Work Phone: [facility] 02-12-2023 11:36-0400 SaO2% (BldA) [Mass fraction] 97 % Dr. Dyan Kyle Work Phone: [facility] 02-12-2023 11:36-0400 Systolic blood pressure 124 mm[Hg] Dr. Dyan Kyle Work Phone: [facility] 01-20-2023 11:51-0400 Body mass index (BMI) [Ratio] 24 kg/m2 Dr. Dyan Kyle Work Phone: [facility] 01-20-2023 11:51-0400 Body temperature 97.1 [degF] Dr. Dyan Kyle Work Phone: [facility] 01-20-2023 11:51-0400 Body weight 80.[address] Dyan Kyle Work Phone: [facility] 01-20-2023 11:51-0400 Diastolic blood pressure 78 mm[Hg] Dr. Dyan Kyle Work Phone: [facility] 01-20-2023 11:51-0400 Heart rate 86 /min Dr. Dyan Kyle Work Phone: [facility] 01-20-2023 11:51-0400 Respiratory rate 16 /min Dr. Dyan Kyle Work Phone: [facility] 01-20-2023 11:51-0400 SaO2% (BldA) [Mass fraction] 98 % Dr. Dyan Kyle Work Phone: [facility] 01-20-2023 11:51-0400 Systolic blood pressure 142 mm[Hg] Dr. Dyan Kyle Work Phone: [facility] 11-27-2021 17:47-0400 Body height 182.88 cm [facility] Work Phone: 11-27-2021 17:47-0400 Body mass index (BMI) [Ratio] 24.9 kg/m2 [facility] Work Phone: 11-27-2021 17:47-0400 Body temperature 98 [degF] [facility] Work Phone: 11-27-2021 17:47-0400 Body weight 83.46 kg [facility] Work Phone: 11-27-2021 17:47-0400 Diastolic blood pressure 76 mm[Hg] [facility] Work Phone: 11-27-2021 17:47-0400 Heart rate 72 /min [facility] Work Phone: 11-27-2021 17:47-0400 Respiratory rate 14 /min [facility] Work Phone: 11-27-2021 17:47-0400 SaO2% (BldA) [Mass fraction] 98 % [facility] Work Phone: 11-27-2021 17:47-0400 Systolic blood pressure 142 mm[Hg] [facility] Work Phone: Encounters Encounter Date Encounter Type Care Provider Facility Start: 01-15-2025 End: 01-15-[address] Dyan Kyle MD -[facility] Work Phone: Start: 01-15-2025 End: 01-15-[address] Dyan Kyle MD Work Phone: -[facility] Start: 01-09-2025 ambulatory Efewongbe Oleghe Facili ty:[facility] Start: 01-09-[address] Arin Weston MD -[facility] Start: 01-05-2025 End: 01-05-[address] Yadiel Bettencourt MD -[facility] Start: 01-05-2025 End: 01-05-[address] Dyan Kyle MD Work Phone: -[facility] Start: 01-02-2025 ambulatory Efewongbe Olejuliane Facili ty:[facility] Start: 01-02-[address] Arin Weston MD -[facility] Start: 12-26-2024 ambulatory Efewongvania Olejuliane Facili ty:[facility] Start: 12-26-[address] Arin Weston MD -[facility] Start: 12-24-2024 Non-patient / Non-visit Dr. Radha Cope DO [facility] Work Phone: Start: 12-23-2024 Non-patient / Non-visit Dr. Radha Cope [facility] Work Phone: Start: 12-22-2024 Non-patient / Non-visit Dr. Radha Cope [facility] Work Phone: Start: 12-22-2024 Non-[facility] / [facility] Start: 12-21-2024 Non-patient / Non-visit Dr. Radha Cope DO [facility] Work Phone: Start: 12-20-2024 Non-patient / [facility] Start: 12-19-2024 Non-patient / Non-visit [facility] Start: 12-19-2024 Non-patient / Non-visit Dr. Radha Cope DO -[facility] Work Phone: Start: 12-18-2024 ambulatory Radha Cope Facility:[facility] Start: 12-18-2024 End: 12-24-2024 Evaluation and management of inpatient Dr. Amado Jean DO -[facility] 3 Work Phone: Start: 11-07-[address] [facility] Start: 11-07-2024 End: 11-07-[address] Carolina Mcgee MD -[facility] Work Phone: Start: 11-07-2024 End: 11-07-[address] Dyan Kyle MD Work Phone: [facility] Work Phone: Start: 10-25-2024 End: 10-25-[address] Dyan Kyle MD -[facility] Work Phone: Start: 10-25-2024 End: 10-25-[address] Dyan Kyle MD Work Phone: [facility] Work Phone: Start: 09-26-2024 End: 09-26-[address] [facility] Work Phone: Start: 09-26-2024 End: 09-26-2024 ambulatory Carolina Mcgee Facility:[facility] Start: 09-26-[address] [facility] Start: 09-12-2024 End: 09-12-2024 Patient encounter procedure Bob Snyder [facility] Work Phone: Start: 09-12-2024 End: 09-12-2024 ambulatory Bob Snyder Facility:[facility] Start: 08-15-2024 End: 08-15-[address] Carolina Mcgee MD -[facility] Work Phone: Start: 08-15-2024 End: 08-15-2024 ambulatory [facility] Facility:[facility] Start: 08-07-2024 End: 08-07-[address] Dyan Kyle MD Work Phone: [facility] Work Phone: Start: 08-07-2024 End: 08-07-[address] Carolina Mcgee MD -Nuclear Medicine, [facility] Work Phone: Start: 08-07-2024 End: 08-07-2024 ambulatory [facility] Facility:[facility] Start: 07-04-2024 End: 07-04-[address] Carolina Mcgee MD -[facility] Work Phone: Start: 07-04-2024 End: 07-04-2024 ambulatory [facility] Facility:[facility] Start: 07-04-[address] Lindsey Mcgee MD -[facility] Start: 06-03-2024 End: 06-03-2024 Emergency department patient visit Dr. Carl Anders DO -Emergency Department Work Phone: Start: 05-23-2024 End: 05-23-2024 Patient encounter procedure Rachael MONZON -[facility] Work Phone: Start: 05-23-2024 End: 05-23-20[facility] Start: 04-26-2024 End: 04-26-2024 [facility] Start: 04-26-2024 End: 04-26-[address] Dyan Kyle MD -[facility] Work Phone: Start: 04-10-2024 End: 04-10-2024 ambulatory Dyan Kyle Facility:[facility] Start: 03-24-2024 ambulatory Dyan Kyle Facili ty:[facility] Start: 03-23-2024 ambulatory Efambikabe Saroj Facili ty:[facility] Start: 03-23-2024 End: 03-23-2024 ambulatory Efalva Olsone Facility:[facility] Start: 03-03-2024 End: 03-03-2024 ambulatory Dyan Olsone Facility:[facility] Start: 03-02-2024 End: 03-03-2024 ambulatory aCrolina Curranus Facility:[facility] Start: 02-28-2024 End: 02-28-2024 ambulatory Dyan Olsone Facility:[facility] Start: 01-19-2024 End: 01-19-2024 ambulatory Dyan Olsone Facility:[facility] Start: 01-17-2024 End: 01-17-2024 ambulatory Dyan Kyle Facility:[facility] Start: 07-16-2023 Non-patient / Non-visit Dr. Pollo Kyle Work Phone: [facility] Start: 07-16-2023 End: 07-16-[address] Dyan Kyle Work Phone: [facility] Work Phone: Start: 07-16-2023 End: 07-16-[address] Dyan Kyle Work Phone: [facility]-Cardiovascular Services Work Phone: Start: 07-16-2023 ambulatory LONNIE Covarrubias AMADO Lay ty:[facility] Start: 07-13-2023 End: 07-13-[address] Dyan Kyle Work Phone: [facility] Work Phone: Start: 07-13-2023 End: 07-13-[address] Dyan Kyle Work Phone: [facility]-Radiology, [facility] Work Phone: Start: 07-12-2023 ambulatory DYAN Gomez lity:[facility] Start: 07-07-2023 End: 07-07-[address] Dyan Kyle Work Phone: [facility] Work Phone: Start: 06-21-2023 End: 06-21-[address] Dyan Kyle Work Phone: [facility] Work Phone: Start: 06-21-[address] Joaquin Kyle Work Phone: [facility] Start: 05-12-2023 ambulatory DYAN Gomez lity:[facility] Start: 05-11-2023 End: 05-11-[address] Dyan Kyle Work Phone: [facility] Work Phone: Start: 05-11-2023 End: 05-11-[address] Dyan Kyle Work Phone: [facility]-Radiology, [facility] Work Phone: Start: 05-10-2023 End: 05-10-[address] Dyan Kyle Work Phone: [facility] Work Phone: Start: 05-10-[address] Joaquin Kyle Work Phone: [facility] Start: 04-12-2023 ambulatory DYAN oGmez lity:[facility] Start: 04-12-2023 End: 04-12-2023 Subsequent hospital visit by physician Lonnie Fischer MD Work Phone: Department of Radiology Comment on above: Arrived Start: 03-30-2023 End: 03-30-[address] Dyan Kyle Work Phone: [facility] Work Phone: Start: 03-30-2023 End: 03-30-[address] Dyan Kyle Work Phone: [facility]-Radiology, [facility] Work Phone: Start: 03-29-2023 End: 03-29-[address] Dyan Kyel Work Phone: [facility] Work Phone: Start: 03-29-[address] Joaquin Kyle Work Phone: [facility] Start: 03-24-2023 End: 03-24-[address] Dyan Kyle Work Phone: [facility] Work Phone: Start: 03-12-2023 ambulatory EFEWONGBE David RUBIOGHE Faci lity:[facility] Start: 03-12-2023 End: 03-12-2023 Subsequent hospital visit by physician Lonnie Fischer MD Work Phone: Department of Radiology Comment on above: Arrived Start: 03-12-[address] Joaquin Kyle Work Phone: [facility] Work Phone: Start: 03-12-2023 ambulatory EFEWONGBE David OLEGHE Faci lity:[facility] Start: 03-08-2023 End: 03-08-[address] Dyan Kyle Work Phone: [facility] Work Phone: Start: 03-08-2023 End: 03-08-[address] Dyan Kyle Work Phone: [facility]-Nuclear Medicine, [facility] Work Phone: Start: 03-04-2023 End: 03-04-[address] Dyan Kyle Work Phone: [facility] Work Phone: Start: 03-04-2023 End: 03-04-[address] Dyan Kyle Work Phone: [facility]Occupational [facility] Work Phone: Start: 03-04-[address] Joaquin Kyle Work Phone: [facility] Work Phone: Start: 02-26-2023 ambulatory DYAN Lay ty:[facility] Start: 02-24-[address] Joaquin Kyle Work Phone: [facility] Start: 02-24-2023 End: 02-24-[address] Dyan Kyle Work Phone: [facility] Work Phone: Start: 02-17-2023 End: 02-17-[address] Dyan Kyle Work Phone: [facility] Work Phone: Start: 02-16-2023 End: 02-16-[address] Dyan Kyle Work Phone: [facility] Work Phone: Start: 02-16-2023 End: 02-16-[address] Dyan Kyle Work Phone: [facility] Work Phone: Start: 02-14-2023 Non-patient / Non-visit Dr. Pollo Kyle Work Phone: [facility] Start: 02-13-2023 Non-patient / Non-visit Dr. Pollo Kyle Work Phone: [facility] Start: 02-13-2023 Non-patient / Non-visit Dr. Pollo Kyle Work Phone: [facility] Work Phone: Start: 02-12-2023 Non-patient / Non-visit Dr. Pollo Kyle Work Phone: [facility] Work Phone: Start: 02-12-2023 End: 02-14-2023 Evaluation and management of inpatient [facility] Start: 02-12-2023 End: 02-12-[address] Dyan Kyle Work Phone: [facility] Work Phone: Start: 02-12-2023 End: 02-12-[address] Dyan Kyle Work Phone: [facility] Work Phone: Start: 01-21-2023 End: 01-21-[address] Dyan Kyle Work Phone: [facility], [facility] Start: 01-20-2023 End: 01-20-[address] Dyan Kyle Work Phone: [facility] Work Phone: Start: 12-10-2021 Refill Joce CHRISTOPHERFINISHER MAP AND CHART Work Phone: Internal Medicine [facility] Comment on above: Refill Request Start: 11-28-2021 End: 11-28-2021 Patient encounter procedure Brenda Raymond [facility] Start: 11-27-2021 End: 11-27-2021 Patient encounter procedure Brenda [facility] Internal Medicine Start: 11-13-2021 Non-patient / [facility] Start: 10-16-2021 Non-patient / Non-visit Brenda [facility] Internal Medicine Procedures Date Procedure Procedure Detail Performing Clinician Start: 01-05-2025 Plain x-ray of pelvi s and lower extremity Dr. Dyan Kyle MD Work Phone: Start: 01-02-2025 Vitamin D, 25-hydrox y measurement [...] hip Hip uni 4+ views with Pelvis [facility] Start: 01-05-2025 XR Hip Views [facility] Start: 01-05-2025 Plain x-ray of pelvis and lower extremity HIP, UNI W/ Pelvis 2-3 Views [facility] Start: 01-05-2025 XR Pelvis and Hip Views [facility] Start: 12-24-2024 Patient discharge [facility] Start: 12-19-2024 End: 12-19-2024 [facility] Start: 12-19-2024 Ambulation therapy management [facility] Start: 12-19-2024 Application of device [facility] Start: 12-19-2024 Exercises [facility] Start: 12-19-2024 Following clinical pathway protocol [facility] Start: 12-19-2024 Introduction of urinary catheter [facility] Start: 12-19-2024 Neurovascular assessment [facility] Start: 12-19-2024 Patient education [facility] Start: 12-19-2024 Provision of activity privileges [facility] Start: 12-19-2024 Referral to occupational therapist [facility] Start: 12-19-2024 Referral to service [facility] Start: 12-19-2024 Vital signs measurements [facility] Start: 12-19-2024 Wound care [facility] Start: 12-18-2024 Application of intermittent pneumatic compression device [facility] Start: 12-18-2024 Assessment of risk of venous thromboembolism [facility] Start: 12-18-2024 Consultation [facility] Start: 12-18-2024 Insertion of catheter into peripheral vein [facility] Start: 12-18-2024 Measuring intake and output [facility] Start: 12-18-2024 Providing care according to standard [facility] Start: 12-18-2024 Provision of activity privileges [facility] Start: 12-18-2024 Referral to occupational therapist [facility] Start: 12-18-2024 Referral to service [facility] Start: 12-18-2024 [facility] Start: 12-18-2024 Following clinical pathway protocol [facility] Start: 12-18-2024 Verification routine [facility] Start: 12-18-2024 Hospital admission, emergency, from emergency room, medical nature [facility] Start: 12-18-2024 Admission procedure [facility] Start: 12-18-2024 Hepatic function panel [facility] Start: 12-18-2024 [facility] Start: 12-18-2024 Consultation [facility] Start: 12-18-2024 [facility] Start: 11-07-2024 [facility] Start: 06-03-2024 [facility] Start: 11-23-2023 DIABETES SCREEN DIABETES SCREEN [facility] Start: 05-12-2023 End: 05-12-2023 Patient encounter procedure Department o f Radiology Start: 04-12-2023 End: 04-12-2023 Patient encounter procedure [facility] Rad[facility] Start: 03-24-2023 Evaluation of diagnostic study results [facility] Start: 02-24-2023 Patient referral [facility] Work Phone: Start: 02-17-2023 Patient referral [facility] Work Phone: Start: 02-14-2023 Patient discharge [facility] Start: 02-13-2023 Bacterial nucleic acid assay [facility] Start: 02-12-2023 Application of ice collar, cap or bag [facility] Start: 02-12-2023 Assessment of risk of venous thromboembolism [facility] Start: 02-12-2023 Consultation [facility] Start: 02-12-2023 Elevation of affected extremity [facility] Start: 02-12-2023 Fall prevention [facility] Start: 02-12-2023 Inhalation therapy procedure [facility] Start: 02-12-2023 Insertion of catheter into peripheral vein [facility] Start: 02-12-2023 Introduction of urinary catheter [facility] Start: 02-12-2023 Measuring intake and output [facility] Start: 02-12-2023 Methicillin resistant Staphylococcus aureus screening test [facility] Start: 02-12-2023 Providing care according to standard [facility] Start: 02-12-2023 Provision of activity privileges [facility] Start: 02-12-2023 Referral to occupational therapist [facility] Start: 02-12-2023 Referral to service [facility] Start: 02-12-2023 [facility] Start: 02-12-2023 Following clinical pathway protocol [facility] Start: 02-12-2023 Verification routine [facility] Start: 02-12-2023 Admission procedure [facility] Start: 02-12-2023 [facility] Start: 01-22-2023 COVID-19 VACCINE ( season) COVID-19 VACCINE ( season) [facility] Start: 01-22-2023 Influenza vaccination INFLUENZA VACCINE (#1) [facility] Start: 01-20-2023 Patient referral [facility] Work Phone: Start: 01-22-2022 Influenza vaccination INFLUENZA (#1) [facility] Start: 11-27-2021 Patient referral [facility] Work Phone: Start: 05-24-2021 ADVANCE DIRECTIVE DISCUSSION ADVANCE DIRECTIVE DISCUSSION [facility] Start: 02-18-2021 COVID-19 VACCINE (3 - Booster for Moderna series) COVID-19 VACCINE (3 - Booster for Moderna series) [facility] Start: 02-07-2021 PNEUMOCOCCAL: 65+ (2 - PPSV23 or PCV20) PNEUMOCOCCAL: 65+ (2 - PPSV23 or PCV20) [facility] Start: 1982 Screening for malignant neoplasm of colon COLORECTAL CANCER SCREENING DISCUSSION [facility] Start: 1956 Third diphtheria, tetanus and acellular pertussis (DTaP) vaccination TDAP (ADULT) [facility] Start: 1956 Urine microalbumin profile DTAP,TDAP,TD (1 - Tdap) [facility] Start: 1937 Tetanus vaccination TETANUS [facility] Alanine aminotransfe rase [Enzymatic activity/volume] in Serum or Plasma [facility] Albumin [Mass/volume ] in Serum or Plasma [facility] Alkaline phosphatase [Enzymatic activity/volume] in Serum or Plasma [facility] Bilirubin measuremen t, urine [facility] Bilirubin, total measurement [facility] Bilirubin.direct [Mass/volume] in Serum or Plasma [facility] CBC W Auto Different ial panel - Blood [facility] CBC W Auto Different ial panel - Blood [facility] CBC W Auto Different ial panel - Blood [facility] CBC W Auto Different ial panel - Blood [facility] CBC W Auto Different ial panel - Blood [facility] CBC W Auto Different ial panel - Blood [facility] metabo lic 1999 panel - Serum or Plasma [facility] metabo lic 1999 panel - Serum or Plasma [facility] lic 1999 panel - Serum or Plasma [facility] Hemoglobin [Presence ] in Urine [facility] Hemoglobin A1c/Hemoglobin.total in Blood [facility] Hepatic function panel [facility] Lipid 1995 panel - S alfonso or Plasma [facility] Measurement of keton es in urine using dipstick [facility] Microscopic urinalysis [facility] Natriuretic peptide. B prohormone N-Terminal [Mass/volume] in Serum or Plasma [facility] Patient Education ED Esophageal Foreign Body, Resolved [facility] Work Phone: Patient referral [facility] Work Phone: pH of Urine [facility] Prostate specific an tigen measurement [facility] Prostate specific an tigen measurement [facility] Prostate specific an tigen measurement [facility] Prostate specific an tigen measurement [facility] Prostate specific an tigen measurement [facility] Prostate specific an tigen measurement [facility] Specific gravity of Urine [facility] Total protein measurement [facility] Urine blood test [facility] Urine dipstick for glucose W [facility] Urine dipstick for leukocyte esterase [facility] Urine dipstick for nitrite [facility] Urine dipstick for protein [facility] Urine examination [facility] Urine microscopy: epithelial cells [facility] Urine Microscopy: wh ite cells [facility] Urobilinogen [Presen ce] in Urine [facility] Immunizations Immunization Date Immunization Notes Care Provider [facility] 03-03-2024 Seasonal trivalent influenza vaccine, adjuvanted, preservative free Dr. Dyan Kyle MD Work Phone: [facility] 07-07-2023 influenza, injectabl e, quadrivalent, preservative free Dr. Dyan Kyle Work Phone: [facility] 04-06-2022 influenza, injectabl e, quadrivalent, preservative free Dr. Dyan Kyle Work Phone: [facility] 04-06-2022 influenza virus vaccine, unspecified formulation Lonnie Fischer MD Work Phone: [facility] 09-18-2020 COVID-19 vaccine, fu ll dose (MODERNA) Joce Hernandez APRN.FINISHER MAP [employer] CHART Work Phone: [facility] 08-20-2020 COVID-19 vaccine, fu ll dose (MODERNA) Joce Hernandez APRN.FIN[employer]ER MAP [employer] CHART Work Phone: [facility] Work Phone: 04-11-2020 zoster vaccine recombinant Joce Hernandez APRN.[employer]ER MAP [employer] CHART Work Phone: [facility] Work Phone: 02-08-2020 influenza, injectabl e, quadrivalent, preservative free Joce Hernandez CHELLE.[employer]ER MAP [employer] CHART Work Phone: [facility] Work Phone: 02-08-2020 pneumococcal conjuga te vaccine, 13 valent Joce Hernandez QUARRY BOSS.[employer]ER MAP [employer] CHART Work Phone: [facility] Work Phone: 02-08-2020 zoster vaccine recombinant Joce Hernandez QUARRY BOSS.[employer]ER MAP [employer] CHART Work Phone: [facility] Work Phone: Payers Date Payer Category Payer Medicare [id number] 2023 Self-pay [id number] 2021 Medicare [place]IC[place] MED[place] [employer]ET[employer] PPO [id number] 2021-Present [address] [place] [address] [id number] 2015 Private Health Insurance 101 [id number] 2014 Medicare AETNA MEDICARE A ETNA MEDICARE PPO [id number] 2014-Present [phone] [address] [place] [address] PPO [id number] 1937 Unknown [id number] 1937 Unknown [id number] 1937 Unknown [id number] 2.16.840.1.545291.3.579.2.5 94 1935 Unknown [id number] 2.16.840.1.076165.3.579.2.5 94 1937 Unknown [id number] 2.16.840.1.326394.3.579.2.5 94 1937 Unknown [id number] 2.16.840.1.025736.3.579.2.5 94 1937 Unknown [id number] 2.16.840.1.867159.3.579.2.5 94 1937 Unknown [id number] 2.16.840.1.042201.3.579.2.5 94 Medicare [id number] Unknown [id number] 2.16.840.1.725953.3.579.2.4 62 Unknown [id number] 2.16.840.1.695480.3.579.2.4 62 Unknown [id number] 2.16.840.1.005072.3.579.2.4 62 Unknown [id number] 2.16.840.1.996060.3.579.2.4 62 Unknown [id number] 2.16.840.1.851889.3.579.2.4 62 Unknown [id number] 2.16.840.1.719896.3.579.2.4 62 Unknown [id number] 2.16.840.1.384907.3.579.2.4 62 Unknown [id number] 2.16.840.1.330140.3.579.2.4 62 Unknown [id number] 2.16.840.1.012342.3.579.2.4 62 Unknown [id number] 2.16.840.1.885838.3.579.2.4 62 Unknown [id number] 2.16.840.1.374056.3.579.2.4 62 Unknown [id number] 2.16.840.1.536179.3.579.2.4 62 Unknown [id number] 2.16.840.1.015850.3.579.2.4 62 Unknown [id number] 2.16.840.1.982858.3.579.2.4 62 Unknown [id number] 2.16.840.1.934962.3.579.2.4 62 Unknown [id number] 2.16.840.1.807142.3.579.2.4 62 Unknown [id number] 2.16.840.1.735303.3.579.2.4 62 Unknown [id number] 2.16.840.1.442862.3.579.2.4 62 Unknown [id number] 2.16.840.1.467354.3.579.2.4 62 Unknown [id number] 2.16.840.1.155458.3.579.2.4 62 Unknown [id number] 2.16.840.1.042713.3.579.2.4 62 Unknown [id number] 2.16.840.1.462929.3.579.2.4 62 Unknown [id number] 2.16.840.1.168159.3.579.2.4 62 Unknown [id number] 2.16.840.1.274013.3.579.2.4 62 Unknown [id number] 2.16.840.1.767696.3.579.2.4 62 Unknown [id number] 2.16.840.1.702091.3.579.2.4 62 Unknown [id number] 2.16.840.1.459863.3.579.2.4 62 Unknown [id number] 2.16.840.1.109097.3.579.2.4 62 Unknown [id number] 2.16.840.1.766142.3.579.2.4 62 Unknown [id number] 2.16.840.1.736405.3.579.2.4 62 Unknown [id number] 2.16.840.1.650600.3.579.2.4 62 Unknown [id number] 2.16.840.1.082150.3.579.2.4 62 Unknown [id number] 2.16.840.1.400344.3.579.2.4 62 Unknown [id number] 2.16.840.1.328230.3.579.2.4 62 Unknown [id number] 2.16.840.1.938559.3.579.2.4 62 Unknown [id number] 2.16.840.1.147231.3.579.2.4 62 Unknown [id number] 2.16.840.1.919112.3.579.2.4 62 Unknown [id number] 2.16.840.1.713381.3.579.2.4 62 Social History Date Type Detail Facility Start: 11-27-2021 End: 07-07-2023 Tobacco smoking status MIIS Unknown if ever smoked [facility] Start: 1935 Sex Assigned At Male W [facility] Start: 12-24-2015 Tobacco smoking stat us MIIS Ex-smoker [facility] Work Phone: History of tobacco use Cigarette Smoker C [facility] Work Phone: Start: 12-24-2015 End: 03-12-2023 Tobacco use and exposure Smokeless tobacco non-user [facility] Work Phone: Start: 11-28-2020 Alcohol intake Current non-dr pipe cutter of alcohol (finding) [facility] Start: 1935 Sex Assigned At Not on file [facility] Start: 03-12-2023 End: 12-18-2024 Tobacco smoking status NHIS Never smoked tobacco [facility] Start: 03-12-2023 End: 04-12-2023 Alcohol intake Ex-drinker (finding) [facility] Start: 03-12-2023 End: 04-12-2023 History of Social function [facility] Start: 03-12-2023 End: 04-12-2023 Tobacco use panel [facility] Adolescent depressio n screening assessment 2 [facility] Start: 08-14-2024 Sex Male (finding) [facility] Medical Equipment Procedure Code Equipment Code Equipment Origin al Text Equipment Identifier Dates Primary uncemented hemiarthroplasty of hip KIT,FEMORAL BONE CEMENT PREP FDA Start: 12-19-2024 Primary uncemented hemiarthroplasty of hip Metallic femoral head prosthesis ()[id number]) [id number] FDA Start: 12-19-2024 Primary uncemented hemiarthroplasty of hip ([id number]) Orthopaedic cement spacer ()[id number]) [id number] FDA Start: 12-19-2024 Primary uncemented hemiarthroplasty of hip Bipolar femoral head outer component, hemiarthroplasty ()[id number]) [id number] FDA Start: 12-19-2024 Primary uncemented hemiarthroplasty of hip Uncoated hip femur prosthesis, modular ()[id number] [id number]) [id number] FDA Start: 12-19-2024 Primary uncemented hemiarthroplasty of hip Orthopaedic cement, antimicrobial ()[id number] [id number]) [id number] FDA Start: 12-19-2024 Primary uncemented hemiarthroplasty of hip KIT,FEMORAL BONE CEMENT PREP FDA Start: 12-19-2024 Primary uncemented hemiarthroplasty of hip KIT,FEMORAL BONE CEMENT PREP FDA Start: 12-19-2024 Primary uncemented hemiarthroplasty of hip KIT,FEMORAL BONE CEMENT PREP FDA Start: 12-19-2024 Goals Date Patient Goal Desired Activity /State Functional Status Date Assessment Result Facility 12-24-2024 Functional status Bathroom Privilege [facility] Work Phone: 02-14-2023 Functional status Activity Abili ty Standby Assist;With Assist of 1 [facility] Work Phone: 02-14-2023 Functional status Patient Activity Ambula sandoval [facility] Work Phone: 02-13-2023 Functional status Assistive Rossana lily Straight Cane [facility] Work Phone: Mental Status Date Assessment Result Facility 12-24-2024 Cognitive function Voice/Name [facility] Work Phone: 11-07-2024 Cognitive function Voice/Name [facility] Work Phone: 08-15-2024 Cognitive function Awake;Alert;A ppropriate;Nyo ws Commands [facility] Work Phone: 06-03-2024 Cognitive function Level Of Cons ciousness Awake;Alert;Appropriate;Follo [facility] Work Phone: 05-23-2024 Cognitive function Voice/Name [facility] Work Phone: 06-21-2023 Cognitive function Awake;Alert;A ppropriate;[facility] Work Phone: 03-29-2023 Cognitive function Awake;Alert;A ppropriate;[facility] Work Phone: 02-14-2023 Cognitive function Voice/Name [facility] Work Phone: Clinical Notes 09-20-2020 to 12-24-2024 Note Date & Type Note Facility 12-24-2024 Hospital Discharg e instructions Additional Instructions 1. Patient should have a repeat BMP and CBC in 1 week 2. Weightbearing as tolerated right lower extremity 3. DVT prophylaxis with Eliquis until instructed to stop by orthopedic surgery 4. Posterior hip precautions Date of Discharge: 12/24/24 [facility] Work Phone: 12-24-2024 Discharge summary [facility] 12-24-2024 Discharge summary [facility] 12-24-2024 Note [facility] 12-23-2024 Progress note Note Date/Time December 23, 2024 3:40pm [facility] Medical Records Department [address] [place] [address] Progress Note - Hospitalist 12/23/24 1536 MR#: [id number] Acct: [id number] Name: JESS JAMES Rep #:[id number] : 1935 89 From: Radha Cope DO PCP: Dr. Dyan Kyle MD Status:A DM IN Location: MS3 KY585-2 Reason for Visit Chief Complaint: Fall with [...] work/case management following and working on placement -[facility] once approved by insurance Mild anemia -Hemoglobin [...] -FULL CODE Charges/Coding Visit Charges Inpatient E&M: 83238 Subs Hosp L1 Date medically ready for discharge: 12/22/24 Reason for DC delay: Precert pending from insurance 12/23/24 3620 <Electronically signed by Radha Cope DO> Cosigner Signature (if applicable): CC: ~ Signed [facility] Work Phone: 1(831) 100-604408-02-2025 Progress note [facility] Medical Records Department [address] [place] [address] Progress Note - Hospitalist 12/23/24 8096 MR#: [id number] Acct: [id number] Name: JESS JAMES Rep #:[id number] : 1935 89 From: Radha Cope DO PCP: Dr. Dyan Kyle MD Status:A DM IN Location: MS3 PK828-8 Reason for Visit Chief Complaint: Fall with [...] work/case management following and working on placement -[facility] once approved by insurance Mild anemia -Hemoglobin [...] -FULL CODE Charges/Coding Visit Charges Inpatient E&M: 97470 Subs Hosp L1 Date medically ready for discharge: 12/22/24 Reason for DC delay: Precert pending from insurance 12/23/24 4580 Cosigner Signature (if applicable): CC: ~ Signed [facility]08-01-2025 Progress note Author Radha Cope [facility] Note Date/Time December 22, 2024 4:4 3pm [facility] Medical Records Department [address] [place] [address] Progress Note - Hospitalist 12/22/24 6478 MR#: [id number] Acct: [id number] Name: JESS JAMES Rep #:[id number] : 1935 89 From: Radha Cope DO PCP: Dr. Dyan Kyle MD Status:A DM IN Location: MS3 OL764-6 Reason for Visit Chief Complaint: Fall with [...] work/case management following and working on placement -[facility] once approved by insurance CODY secondary to [...] -FULL CODE Charges/Coding Visit Charges Inpatient E&M: 30426 Subs Hosp L1 Date medically ready for discharge: 12/22/24 Reason for DC delay: Precert pending from insurance 12/22/24 1643 <Electronically signed by Radha Cope DO> Cosigner Signature (if applicable): CC: ~ Signed [facility] Work Phone: 1(855) 839-598808-01-2025 Progress note [facility] Medical Records Department [address] [place] [address] Progress Note - Hospitalist 12/22/24 1632 MR#: [id number] Acct: [id number] Name: JESS JAMES Rep #:[id number] : 1935 89 From: Radha Cope DO PCP: Dr. Dyan Kyle MD Status:A DM IN Location: MS3 VV894-9 Reason for Visit Chief Complaint: Fall with [...] work/case management following and working on placement -[facility] once approved by insurance CODY secondary to [...] -FULL CODE Charges/Coding Visit Charges Inpatient E&M: 83281 Subs Hosp L1 Date medically ready for discharge: 12/22/24 Reason for DC delay: Precert pending from insurance 12/22/24 1643 Cosigner Signature (if applicable): CC: ~ Signed [facility]08-01-2025 Progress note Author Renae Rodríguez [facility] Note Date/Time December 22, 2024 7:5 7am [facility] Medical Records Department [address] [place] [address] Progress Note - Orthopedic 12/22/24 0754 MR#: [id number] Acct: [id number] Name: JESS JAMES Rep #:[id number] : 1935 89 From: Renae IGLESIAS PCP: Dr. Dyan Kyle MD Status:A DM IN Location: MS3 PW662-2 Subjective Subjective Patient seen 12/21/[address] [...] clinic in 2 weeks for staple removal. 12/22/24756 <Electronically signed by Renae IGLESIAS> Cosigner Signature (if applicable): CC: ~ Signed [facility] Work Phone: 1(707) 358-192308-01-2025 Progress note [facility] Medical Records Department [address] [place] [address] Progress Note - Orthopedic 12/22/24753 MR#: [id number] Acct: [id number] Name: JESS JAMES Rep #:[id number] : 1935 89 From: Renae IGLESIAS PCP: Dr. Dyan Kyle MD Status:A DM IN Location: [place] [address]-1 Subjective Subjective Patient seen 12/21/[address] [...] in 2 weeks for staple removal. 12/22/24 7267 Cosigner Signature (if applicable): CC: ~ Signed [facility]07-31-2025 Progress note Author Radha Cope [facility] Note Date/Time December 21, 2024 5:56 pm [facility] Medical Records Department [address] [facility] [place] [address] Progress Note - Hospitalist 12/21/24 0823 MR#: [id number] Acct: [id number] Name: JESS JAMES Rep #:[id number] : 1935 89 From: Radha Cope DO PCP: Dr. Dyan Kyle MD Status:A DM IN Location: [facility] AY956-2 Reason for Visit Chief Complaint: Fall with [...] work/case management following and working on placement -[facility] once approved by insurance CODY secondary to [...] -FULL CODE Charges/Coding Visit Charges Inpatient E&M: 91968 Subs Hosp L2 12/21/24 5044 <Electronically signed by Radha Cope DO> Cosigner Signature (if applicable): CC: ~ Signed [facility] Work Phone: 1(865) 494-811107-31-2025 Progress note [facility] Medical Records Department [address] [place] [address] Progress Note - Hospitalist 12/21/24 0823 MR#: [id number] Acct: [id number] Name: JESS JAMES Rep #:[id number] : 1935 89 From: Radha Cope DO PCP: Dr. Dyan Kyle MD Status:A DM IN Location: [address] Reason for Visit Chief Complaint: Fall with [...] work/case management following and working on placement -[facility] once approved by insurance CODY secondary to [...] -FULL CODE Charges/Coding Visit Charges Inpatient E&M: 84891 Subs Hosp L2 12/21/24 9806 Cosigner Signature (if applicable): CC: ~ Signed [facility]07-30-2025 Progress note Author Bj Hamilton [facility] Note Date/Time December 20, 2024 2:06 pm [facility] Medical Records Department [address] [place] [address] Progress Note - Orthopedic 12/20/24 1405 MR#: [id number] Acct: [id number] Name: JESS JAMES Rep #:[id number] : 1935 89 From: Bj [facility] MD PCP: Dr. Dyan Kyle MD Status:A DM IN Location: MS3 KU785-7 Subjective Subjective Postop day 1 status post [...] on the solitary view obtained. Reading Location: [place] [address] Physical Exam Narrative Dressing?CDI. Distal neurovascular exam [...] Cosigner Signature (if applicable): CC: ~ Signed [facility] Work Phone: 1(717) 294-376007-30-2025 Progress note Author Radha Cope [facility] Note Date/Time December 20, 2024 1:48 pm [facility] Medical Records Department [address] [place] [address] Progress Note - Hospitalist 12/20/24 1340 MR#: [id number] Acct: [id number] Name: JESS JAMES Rep #:[id number] : 1935 89 From: Radha Cope DO PCP: Dr. Dyan Kyle MD Status:A DM IN Location: MS3 XH280-6 Reason for Visit Chief Complaint: Fall with [...] on the solitary view obtained. Reading Location: [place] [address] Physical Exam Const alert, oriented x3, no [...] -FULL CODE Charges/Coding Visit Charges Inpatient E&M: 11413 Subs Hosp L2 12/20/24 1348 <Electronically signed by Radha Cope DO> Cosigner Signature (if applicable): CC: ~ Signed [facility] Work Phone: 1(825) 396-572407-30-2025 Progress note [facility] Medical Records Department [address] [place] [address] Progress Note - Orthopedic 12/20/24 1405 MR#: [id number] Acct: [id number] Name: JESS JAMES Rep #:[id number] : 1935 89 From: Bj [facility] MD PCP: Dr. Dyan Kyle MD Status:A DM IN Location: [place]3 LY143-4 Subjective Subjective Postop day 1 status post [...] seen on the solitaryview obtained. Reading Location: [facility] Physical Exam Narrative Dressing?CDI. Distal neurovascular exam [...] Cosigner Signature (if applicable): CC: ~ Signed [facility]07-30-2025 Progress note [facility] Medical Records Department [address] [place] [address] Progress Note - Hospitalist 12/20/24 1340 MR#: [id number] Acct: [id number] Name: JESS JAMES Rep #:[id number] : 1935 89 From: Radha Cope DO PCP: Dr. Dyan Kyle MD Status:A DM IN Location: [place] [address] Reason for Visit Chief Complaint: Fall with [...] seen on the solitaryview obtained. Reading Location: [place] [address] Physical Exam Const alert, oriented x3, no [...] -FULL CODE Charges/Coding Visit Charges Inpatient E&M: 83120 Subs Hosp L2 12/20/24 1348 Cosigner Signature (if applicable): CC: ~ Signed [facility]07-29-2025 Consult note Author Bernardino Brian [facility] Note Date/Time December 19, 2024 8:35 pm [facility] Medical Records Department [address] [place] [address] Anesthesia Postop Eval II 12/19/242033 MR#: [id number] Acct: [id number] Name: JESS JAMES Rep #:[id number] : 1935 89 From: Bernardino Brian MD PCP: Dr. Dyan Kyle MD Status:A DM IN Y Race: C Location: [place] [address] Anesthesia Postop Eval I Sum Postop Eval Completion status Anesthesia document: Postop Eval 1 completed: Yes Anesthesia Postop Eval I Summary Anesthesia Postop Eval I Summary: Anesthesia Postop Eval I: Assessment Summary 3 Airway patent Yes 12/19/24 16:38 RIVERBOAT CAPTAIN.SKOBY Spontaneous unlabored Yes 12/19/24 16:38 RIVERBOAT CAPTAIN.TOMOBY respirations Mental status Asleep 12/19/24 16:38 [employer]IVERBO[employer]TAIN.SKOBY nausea No 12/19/24 16:38 [employer].SKOBY Vomiting No 12/19/24 16:38 [employer].SKOBY Anesthesia Postop Eval I: Fluid Summary Crystalloid volume administer 900 12/19/24 16:38 RIVERBOAT CAPTAIN.SKOBY (ml) Colloids volume administered ( ml) Blood Product volume administered (ml) Total IV fluid infused 900 12/19/24 16:38 RIVERBOAT CAPTAIN.SKOBY Anesthesia Postop Eval I: Summary Notes Anesthesia Complication No 12/19/24 16:38 RIVERBOAT CAPTAIN.SKOBY Anesthesia Complication Comment: Post-operative progress note Anesthesia: Postop Eval II Evaluation Mental status: Awake and Calm Pain Level: 2 nausea: No Vomiting: No Complications Anesthesia Complication: No 12/19/242034 <Electronically signed by Bernardino bermudez MD> Date _ Bernardino Brian MD Cosigner Signature: Date CC: ~ Signed [facility] Work Phone: 1(612) 868-858107-29-2025 Consult note [facility] Medical Records Department [address] [place] [address] Anesthesia Postop Eval II 12/19/242033 MR#: [id number] Acct: [id number] Name: JESS JAMES Rep #:[id number] : 1935 89 From: Bernardino Brian MD PCP: Dr. Dyan Kyle MD Status:A DM IN Y Race: C Location: [place] [address] 1 Anesthesia Postop Eval I Sum Postop Eval Completion status Anesthesia document: Postop Eval 1 completed: Yes Anesthesia Postop Eval I Summary Anesthesia Postop Eval I Summary: Anesthesia Postop Eval I: Assessment Summary 3 Airway patent Yes 12/19/24 16:38 RIVERBOAT CAPTAIN.TOMOBY Spontaneous unlabored Yes 12/19/24 16:38 RIVERBOAT CAPTAIN.SKOBY respirations Mental status Asleep 12/19/24 16:38 RIVERBOAT CAPTAIN.SKOBY nausea No 12/19/24 16:38 RIVERBOAT CAPTAIN.SKOBY Vomiting No 12/19/24 16:38 [employer]IVERBO[employer]TAIN.SKOBY Anesthesia Postop Eval I: Fluid Summary Crystalloid volume administer 900 12/19/24 16:38 RIVERBOAT CAPTAIN.SKOBY (ml) Colloids volume administered ( ml) Blood Product volume administered (ml) Total IV fluid infused 900 12/19/24 16:38 RIVERBOAT CAPTAIN.SKOBY Anesthesia Postop Eval I: Summary Notes Anesthesia Complication No 12/19/24 16:38 RIVERBOAT CAPTAIN.SKOBY Anesthesia Complication Comment: Post-operative progress note Anesthesia: Postop Eval II Evaluation Mental status: Awake and Calm Pain Level: 2 nausea: No Vomiting: No Complications Anesthesia Complication: No 12/19/242034 aidan COVARRUBIAS> Date _ Bernardino Brian MD Cosigner Signature: Date CC: ~ Signed [facility]07-29-2025 Consult note Author Wanda Garcia [facility] Note Date/Time December 19, 2024 4:38 pm [facility] Medical Records Department [address] [place] [address] Anesthesia Postop Eval I 12/19/241636 MR#: [id number] Acct: [id number] Name: JESS JAMES Rep #:[id number] : 1935 89 From: Wanda jensen CRNA PCP: Dr. Dyan Kyle MD Status:A DM IN Y Race: C Location: [place] [address] Anesthesia: Postop Eval I Current Vital Signs [...] Date _ Wanda Garcia CRNA Cosigner Signature: Date CC: ~ Signed [facility] Work Phone: 1(269) 150-739207-29-2025 Progress note Author Radha Cope [facility] Note Date/Time December 19, 2024 3:44 pm [facility] Medical Records Department [address] [facility] [place] [address] Progress Note - Hospitalist 12/19/24 0742 MR#: [id number] Acct: [id number] Name: JESS JAMES Rep #:[id number] : 1935 89 From: Radha Cope DO PCP: Dr. Dyan Kyle MD Status:A DM IN Location: MS3 QU273-7 Reason for Visit Chief Complaint: Fall with [...] % (Auto) 64.2, Lymph % (Auto) 28.2, [place] % (Auto) 5.6, Eos % (Auto) 1.1, [...] Clarity Clear, Urine pH 7.0, Ur Specific [place] 1.010, Urine Protein 15 H, Urine Glucose [...] of scarring in both lungs. Reading Location: [id number] Hip/Pelvis X-Ray 12/18/24 13:15 IMPRESSION: There is a fracture through the right femoral neck with 0.9 cm impaction. Critical results were discussed with Dr. Alberto by Dr. Bello at the time of dictation. Reading Location: [facility] Physical Exam Const alert, oriented x3, no [...] extensive discussion Charges/Coding Visit Charges Inpatient E&M: 98374 Subs Hosp L2 12/19/24 1544 <Electronically signed by Radha Cope DO> Cosigner Signature (if applicable): CC: ~ Signed [facility] Work Phone: 1(533) 688-839007-29-2025 Procedure note [facility] Medical Records Department [address] [place] [address] Operative Report 12/19/24 1642 MR#: [id number] Acct: [id number] Name: JESS JAMES Rep #:[id number] : 1935 89 From: Bj [facility] MD PCP: Dr. Dyan Kyle MD Status:A DM IN Location: [facility] EL939-3 Procedures Musculoskeletal 20xxx-29xxx: Other Procedure See Report Operative Report (Standard) Operative Information Date of Procedure: 12/19/24 Pre-Operative Diagnosis: Right femoral neck fracture, transcervical, displaced Post-Operative Diagnosis: Same Surgery/Procedure Performed: Right hip cemented hemiarthroplasty cardiac care nurse: Yes Airplane Patrol Pilot: Linda Bernstein Tasks completed by miller first: Closing, Removing tissue, Implanting device, Hemostasis: Electrocautery [...] PRINCIPAL PROCEDURE: Right cemented HIP HEMIARTHROPLASTY CPT 08985 Surgeon: Bj [facility] MD ANESTHESIA: General Anesthesia Record E.B.L. 50 SPECIMENS: None COMPLICATIONS: None DISPOSITION: PACU then potentially floor Implants: Frances Accolade C cemented femoral stem, bipolar head [...] See operative note Complications Complications: No 12/19/24 9140 Cosigner Signature (if applicable): CC: Dr. Amado Jean DO; Dr. Bj Hamilton MD; Dr. Dyan Kyle MD~ Signed [facility]07-29-2025 Consult note [facility] Medical Records Department [address] [place] [address] Anesthesia Postop Eval I 12/19/24 1637 MR#: [id number] Acct: [id number] Name: JESS JAMES Rep #:[id number] : 1935 89 From: Wanda jensen RIVERBOAT CAPTAIN PCP: Dr. Dyan Kyle MD Status:A DM IN Y Race: C Location: [place] [address] Anesthesia: Postop Eval I Current Vital Signs [...] document: Postop Eval 1 completed: Yes 12/19/24 1638 jaime RIVERBOAT CAPTAIN> Date _ Wanda Garcia RIVERBO[employer] CAPTAIN Cosigner Signature: Date CC: ~ Signed [facility]07-29-2025 Radiology Diagnostic study note [facility] Imaging Services [address] [place] [address] Hip 1 view with Pelvis MR#: [id number] Acct: [id number] Name: JESS JAMES Rep #: [id number] : 1935 M 89 From: Sanchez Aguayo MD PCP: Dr. Dyan Kyle MD Status: A DM IN Study:Hip 1 view with Pelvis Date of Exam: 12/19/24 Exam# [id number] Ordering Dr: Keysha Hamilton MD PROCEDURE: HIP 1 VIEW WITH PELVIS 12/19/2024 REASON FOR EXAM: HIP HEMIARTHROPLASTY TECHNIQUE: Single intraoperative view of the right hip COMPARISON: Preoperative study of 12/18/2024 RAD/Hip 1 view with Pelvis IMPRESSION: Interval placement a right proximal femoral endoprosthesis. No complication is seen on the solitaryview obtained. Reading Location: [place] [address] CC: Dr. Bj [facility] MD; Dr. Dyan Kyle MD ~ Chemical Equipment Sales Engineer: Signed [facility]07-29-2025 Progress note [facility] Medical Records Department [address] [place] [address] Progress Note - Hospitalist 12/19/2442 MR#: [id number] Acct: [id number] Name: JESS JAMES Rep #:[id number] : 1935 89 From: Radha Cope DO PCP: Dr. Dyan Kyle MD Status:A DM IN [facility] Reason for Visit Chief Complaint: Fall with [...] % (Auto) 64.2, Lymph % (Auto) 28.2, [place] % (Auto) 5.6, Eos % (Auto) 1.1, [...] Clarity Clear, Urine pH 7.0, Ur Specific [place] 1.010, Urine Protein 15 H, Urine Glucose [...] of scarring in both lungs. Reading Location: [facility] Hip/Pelvis X-Ray 12/18/24 13:15 IMPRESSION: There is a fracture through the right femoral neck with 0.9 cm impaction. Critical results were discussed with Dr. Alberto by Dr. Bello at the time of dictation. Reading [facility] Const alert, oriented x3, no [...] extensive discussion Charges/Coding Visit Charges Inpatient E&M: 88875 Subs Hosp L2 12/19/24 1544 Cosigner Signature (if applicable): CC: ~ Signed [facility]07-29-2025 Consult note Author Bernardino Brian [facility] Note Date/Time December 19, 2024 1:33 pm [facility] Medical Records Department [address] [place] [address] Pre-Anesthesia Evaluation 12/19/24 1318 MR#: [id number] Acct: [id number] Name: JESS JAMES Rep #:[id number] : 1935 89 From: Bernardino Brian MD PCP: Dr. Dyan Kyle MD Status:A DM IN Y Race: C [place] [facility] [place] MS324 -1 ASA Classification* ASA Classification ASA Classification: [...] hip hemiarthroplasty. Anesthesia History Anesthesia History - healthcare associate: Anesthesia History - healthcare associate Hx Hospitalization Any Problems With Anesthesia No [...] sips of water?: No PONV PONV - healthcare associate: PONV - healthcare associate Female HX of Motion Sickness HX of N/V After Surgery Non-Smoker Duration of Surgery greater than 60 minutes Number of Risk Factors PONV Score Height & Weight Height & Weight: Anesthesia: Height & Weight Height 5 ft 10 in 12/19/24 10:42 Weight: 81.238 kg 12/19/24 10:42 Body Mass Index (BMI) 25.7 12/19/24 10:42 Respiratory Assessment Respiratory Assessment - healthcare associate: Respiratory Tract Infection Hx - healthcare associate Hx Respiratory Tract Infection No 12/19/24 10:42 STOP Sleep Apnea STOP Sleep Apnea - healthcare associate: STOP Sleep Apnea - healthcare associate Hx Hypertension No 12/18/24 15:28 Hx Sleep [...] Tobacco Use History Tobacco Use History - healthcare associate: Tobacco Use History - healthcare associate Tobacco Use Smoking Status Never smoker 12/18/24 15:28 Hx Tobacco Use No 12/18/24 15:28 Years Smoking Packs Smoked per Day Smoking Cessation Date was within the last 15 years Hx Smoking Cessation Date Hx Smoking Cessation Counseling Hematologic Medial History Hematologic Hx - healthcare associate: Hematologic Medical Hx - cash posting representative Hx of Blood Transfusion No 12/18/24 15:28 [...] confused, unrespo /Reproduction History /Reproductive History - healthcare associate: /Reproductive Hx- healthcare associate Hx Now No 12/19/24 10:42 Gestational Age [...] Aspirin E.C. 81 Mg Tablet PO BREAKFAST COUNTS INCLUDE 234 BEDS AT THE [facility] Atorvastatin Calcium 10 mg 12/18/24 22:00 12/18/24 21:58 Atorvastatin Calcium 10 Mg Tablet PO 10 mg QHS NURIS Administration Carvedilol 25 mg 12/18/24 17:00 12/19/24 09:04 Carvedilol 25 Mg Tablet PO Not Given BIDCM COUNTS INCLUDE 234 BEDS AT THE [facility] Protocol Empagliflozin 10 mg 12/20/24 10:00 Empagliflozin 10 Mg Tablet PO DAILY COUNTS INCLUDE 234 BEDS AT THE [facility] Furosemide 40 mg 12/20/24 10:00 Furosemide 40 Mg Tablet PO DAILY COUNTS INCLUDE 234 BEDS AT THE [facility] Protocol Hydromorphone HCl 0.5 mg 12/18/24 16:06 Hydromorphone 0.5 Mg/0.5 Ml Syringe IV Q4H PRN PRN Pain Score 6-10 Sodium Chloride 250 mls @ 15 mls/hr 12/18/24 15:40 IV .[id number] PRN Saline Flush Sodium Chloride 250 mls @ 15 mls/hr 12/18/24 15:40 IV .[id number] PRN Additional IVPB Infusion Lactated Ringer's 1,000 [...] 07:09 Senna Tablet PO Not Given BID COUNTS INCLUDE 234 BEDS AT THE [facility] Sodium Chloride 10 - 40 ml 12/18/24 15:40 0.9% Saline Lock 10 Ml Syringe IV UD PRN SALINE FLUSH Spironolactone 25 mg 12/20/24 12:00 Spironolactone 25 Mg Tablet PO LUNCH COUNTS INCLUDE 234 BEDS AT THE [facility] Protocol [facility] Medical History (Updated 12/19/24 @ 13:29 by [...] no additional complaints, except as documented. 12/19/24 1173 <Electronically signed by Bernardino bermudez MD> Date _ Bernardino Brian MD Cosigner Signature: Date CC: ~ Signed [facility] Work Phone: 1([phone]) 958-602407-29-2025 Consult note Author [facility] Note Date/Time December 19, 2024 12:4 9pm [facility] Medical Records Department [address] [place] [id number] Consultation - Orthopedics 12/19/24 1243 MR#: [id number] Acct: [id number] Name: JESS JAMES Rep #:[id number] : 1935 89 From: Bj Hamilton MD PCP: Dr. Dyan Kyle MD Status:A DM IN Location: [facility] VW489-1 HPI Consult Data Date of Consult: 12/19/24 [...] for orthopedics. Saw the patient today in [facility]. Patient had some balance issues and was [...] most recent EF 35% in February 2024. [facility] Medical History (Updated 12/19/24 @ 12:47 by [...] % (Auto) 64.2, Lymph % (Auto) 28.2, [place] % (Auto) 5.6, Eos % (Auto) 1.1, [...] Clarity Clear, Urine pH 7.0, Ur Specific [place] 1.010, Urine Protein 15 H, Urine Glucose [...] of scarring in both lungs. Reading Location: [facility] Hip/Pelvis X-Ray 12/18/24 13:15 IMPRESSION: There is [...] and family. Charges/Coding Visit Charges Inpatient E&M: 00388 Init Hosp L3 12/19/24 1249 <Electronically signed by Bj Hamilton MD> Cosigner Signature (if applicable): CC: Dr. Dyan Kyle MD; Dr. Radha Cope, DO~ Signed [facility] Work Phone: 1(513) 683-616507-29-2025 Consult note [facility] Medical Records Department [address] [place] [address] Pre-Anesthesia Evaluation 12/19/24 1318 MR#: [id number] Acct: [id number] Name: JESS JAMES Rep #:[id number] : 1935 89 From: Bernardino Brian MD PCP: Dr. Dyan Kyle MD Status:A DM IN Y Race: C Location: [place] [address] ASA Classification* ASA Classification ASA Classification: 3 [...] COAG PT 14.8 SECONDS (11.7-14.9) 12/18/24 16:22 07/28/ 25 Pre-Assessment Diagnosis/Proposed Procedure Planned Operative Procedure(s): Right hip hemiarthroplasty. Anesthesia History Anesthesia History - healthcare associate: Anesthesia History - healthcare associate Hx Hospitalization Any Problems With Anesthesia No [...] sips of water?: No PONV PONV - healthcare associate: PONV - healthcare associate Female HX of Motion Sickness HX of N/V After Surgery Non-Smoker Duration of Surgery greater than 60 minutes Number of Risk Factors PONV Score Height & Weight Height & Weight: Anesthesia: Height & Weight Height 5 ft 10 in 12/19/24 10:42 Weight: 81.238 kg 12/19/24 10:42 Body Mass Index (BMI) 25.7 12/19/24 10:42 Respiratory Assessment Respiratory Assessment - healthcare associate: Respiratory Tract Infection Hx - healthcare associate Hx Respiratory Tract Infection No 12/19/24 10:42 STOP Sleep Apnea STOP Sleep Apnea - healthcare associate: STOP Sleep Apnea - healthcare associate Hx Hypertension No 12/18/24 15:28 Hx Sleep [...] Tobacco Use History Tobacco Use History - healthcare associate: Tobacco Use History - healthcare associate Tobacco Use Smoking Status Never smoker 12/18/24 15:28 Hx Tobacco Use No 12/18/24 15:28 Years Smoking Packs Smoked per Day Smoking Cessation Date was within the last 15 years Hx Smoking Cessation Date Hx Smoking Cessation Counseling Hematologic Medial History Hematologic Hx - healthcare associate: Hematologic Medical Hx - cash posting representative Hx of Blood Transfusion No 12/18/24 15:28 [...] confused, unrespo /Reproduction History /Reproductive History - healthcare associate: /Reproductive Hx- healthcare associate Hx Now No 12/19/24 10:42 Gestational Age [...] 25 Mg Tablet PO Not Given BIDCM COUNTS INCLUDE 234 BEDS AT THE [facility] Protocol Empagliflozin 10 mg 12/20/24 10:00 Empagliflozin 10 Mg Tablet PO DAILY NURIS Furosemide 40 mg 12/20/24 10:00 Furosemide 40 Mg Tablet PO DAILY COUNTS INCLUDE 234 BEDS AT THE [facility] Protocol Hydromorphone HCl 0.5 mg 12/18/24 16:06 Hydromorphone 0.5 Mg/0.5 Ml Syringe IV Q4H PRN PRN Pain Score 6-10 Sodium Chloride 250 mls @ 15 mls/hr 12/18/24 15:40 IV .[id number] PRN Saline Flush Sodium Chloride 250 mls @ 15 mls/hr 12/18/24 15:40 IV .[id number] PRN Additional IVPB Infusion Lactated Ringer's 1,000 [...] 12:00 Spironolactone 25 Mg Tablet PO LUNCH COUNTS INCLUDE 234 BEDS AT [facility] (Updated 12/19/24 @ 13:29 by [...] MD Cosigner Signature: Date CC: ~ Signed [facility]07-29-2025 Consult note [facility] Medical Records Department [address] [place] [address] Consultation - Orthopedics 12/19/24 1243 MR#: [id number] Acct: [id number] Name: JESS JAMES Rep #:[id number] : 1935 89 From: Bj Hamilton MD PCP: Dr. Dyan Kyle MD Status:A DM IN Location: [facility] PH983-0 HPI Consult Data Date of Consult: 12/19/24 [...] for orthopedics. Saw the patient today in [facility]. Patient had some balance issues and was [...] most recent EF 35% in February 2024. [facility] Medical History (Updated 12/19/24 @ 12:47 by [...] % (Auto) 64.2, Lymph % (Auto) 28.2, [place] % (Auto) 5.6, Eos % (Auto) 1.1, [...] Clarity Clear, Urine pH 7.0, Ur Specific [place] 1.010, Urine Protein 15 H, Urine Glucose [...] of scarring in both lungs. Reading Location: [id number] Hip/Pelvis X-Ray 12/18/24 13:15 IMPRESSION: There is [...] and family. Charges/Coding Visit Charges Inpatient E&M: 08709 Init Hosp L3 12/19/24 1249 Cosigner Signature (if applicable): CC: Dr. Dyan Kyle MD; Dr. Radha Cope DO~ Signed [facility]07-28-2025 Discharge summary Author Win Alberto [facility] Note Date/Time December 18, 2024 4:36 pm [facility] Medical Records Department [address] [place] [address] Emergency Department Summary 12/18/24 MR#: [id number] Acct: [id number] Name: JESS JAMES Rep #:[id number] : 1935 89 From: Win Morales PCP: Dr. Dyan Kyle MD Status:A DM IN Location: MS3 WX052-7 HPI HPI - Fall History of Present [...] or weakness. Patient denies any other injuries. [facility] Medical History (Updated 12/18/24 @ 15:38 by [...] motor deficits and no sensory deficits noted [place] Coma Scale: document GCS findings Spontaneous Obeys [...] % (Auto) 64.2 Lymph % (Auto) 28.2 [place] % (Auto) 5.6 Eos % (Auto) 1.1 [...] of scarring in both lungs. Reading Location: [id number] Hip/Pelvis X-Ray 12/18/24 13:15 IMPRESSION: There is a fracture through the right femoral neck with 0.9 cm impaction. Critical results were discussed with Dr. Alberto by Dr. Bello at the time of dictation. Reading Location: [facility] X-rays of the right hip were obtained. [...] cancer, Hypertension Disposition Disposition: Acute Care [facility] Discharge Date/Time: 12/18/24 15:17 What to do if you have Problems For any increased pain, shortness of breath, bleeding, nausea or vomiting, chestpain, or any unexpected problems, contact your Primary Care Provider. Call [facility] ([phone]) or report to the closest Emergency Room. Call 911 if necessary. 12/18/24 1636 <Electronically signed by Win Alberto DO> Cosigner Signature (if applicable): CC: Dr. Dyan Kyle MD ~ Signed [facility] Work Phone: 1(644) 904-396707-28-2025 History and physical note Author Amado Jean [facility] Note Date/Time December 18, 2024 4:01 pm [facility] Medical Records Department [address] [place] [address] H&P Exam - Hospitalist 12/18/24 1435 MR#: [id number] Acct: [id number] Name: JESS JAMES Rep #:[id number] : 1935 89 From: Amado ramírez DO PCP: Dr. Dyan Kyle MD Status:A DM IN Location: [facility] GR847-2 HPI - General General Date of Admission: 12/18/24 Date of Service: 12/18/24 Chief Complaint: Fall with right hip pain HPI Narrative JESS JAMES, is a 89 M who presented to [facility] ED on 12/18/2024 with right hip pain [...] currently. Will be admitted for further management. [facility] Medical History (Updated 12/18/24 @ 15:38 by [...] % (Auto) 64.2, Lymph % (Auto) 28.2, [place] % (Auto) 5.6, Eos % (Auto) 1.1, Baso % (Auto) 0.3, Absolute Neuts (auto) 4.0, Absolute Lymphs (auto) 1.75, Nucleated RBC % 0 Imaging Radiology Impression Chest X-Ray 12/18/24 13:15 IMPRESSION: Cardiomegaly. Findings suggestive of scarring in both lungs. Reading Location: [facility] Hip/Pelvis X-Ray 12/18/24 13:15 IMPRESSION: There is a fracture through the right femoral neck with 0.9 cm impaction. Critical results were discussed with Dr. Alberto by Dr. Bello at the time of dictation. Reading Location: [facility] Assessment & Plan Assessment/Plan (1) Fracture of femoral neck, right, closed: PLAN: Plan Patient is an 89-year-old male who presented [facility] ED on 12/18/2024 with right hip pain after a fall at home. 1. Right femoral neck fracture ? Admit under inpatient status to [facility]. Orthopedic surgery consulted. PT/OT/case management consulted. Had [...] 75 minutes. Charges/Coding Visit Charges Inpatient E&M: 67569 Init Hosp L3 12/18/24 1601 <Electronically signed by Amado Jean DO> Cosigner Signature (if applicable): CC: Dr. Amado Jean DO; Dr. Dyan Kyle MD~ Signed [facility] Work Phone: 1([phone]) 284-411207-28-2025 Discharge summary [facility] Medical Records Department [address] [place] [address] Emergency Department Summary 12/18/24 MR#: [id number] Acct: [id number] Name: JESS JAMES Rep #:[id number] : 1935 89 From: Win Morales PCP: Dr. Dyan Kyle MD Status:A DM IN Location: [facility] RM001-4 HPI HPI - Fall History of Present [...] or weakness. Patient denies any other injuries. [facility] Medical History (Updated 12/18/24 @ 15:38 by [...] motor deficits and no sensory deficits noted [place] Coma Scale: document GCS findings Spontaneous Obeys [...] % (Auto) 64.2 Lymph % (Auto) 28.2 [place] % (Auto) 5.6 Eos % (Auto) 1.1 [...] of scarring in both lungs. Reading Location: [facility] Hip/Pelvis X-Ray 12/18/24 13:15 IMPRESSION: There is a fracture through the right femoral neck with 0.9 cm impaction. Critical results were discussed with Dr. Alberto by Dr. Bello at the time of dictation. Reading [facility] X-[facility] of the right hip were obtained. [...] cancer, Hypertension Disposition Disposition: [facility] Discharge Date/Time: 12/18/24 15:17 What to do if you have Problems For any increased pain, shortness of breath, bleeding, nausea or vomiting, chestpain, or any unexpected problems, contact your Primary Care Provider. Call [facility] ([phone]) or report tothe closest Emergency Room. Call 911 if necessary. 12/18/24 1636 Cosigner Signature (if applicable): CC: Dr. Dyan Kyle MD ~ Signed [facility]07-28-2025 History and physical note [facility] Medical Records Department [address] [place] [address] H&P Exam - Hospitalist 12/18/24 1435 MR#: [id number] Acct: [id number] Name: JESS JAMES Rep #:[id number] : 1935 89 From: Amado ramírez PCP: Dr. Dyan Kyle MD Status:A DM IN Location: MS3 HN245-3 HPI - General General Date of Admission: 12/18/24 Date of Service: 12/18/24 Chief Complaint: Fall with right hip pain HPI Narrative JESS JAMES, is a 89 M who presented to [facility] ED on 12/18/2024 with right hip pain [...] currently. Will be admitted for further management. [facility] Medical History (Updated 12/18/24 @ 15:38 by [...] % (Auto) 64.2, Lymph % (Auto) 28.2, [place] % (Auto) 5.6, Eos % (Auto) 1.1, Baso % (Auto) 0.3, Absolute Neuts (auto) 4.0, Absolute Lymphs (auto) 1.75, Nucleated RBC % 0 Imaging Radiology Impression Chest X-Ray 12/18/24 13:15 IMPRESSION: Cardiomegaly. Findings suggestive of scarring in both lungs. Reading Location: [id number] Hip/Pelvis X-Ray 12/18/24 13:15 IMPRESSION: There is a fracture through the right femoral neck with 0.9 cm impaction. Critical results were discussed with Dr. Alberto by Dr. Bello at the time of dictation. Reading Location: [facility] Assessment & Plan Assessment/Plan (1) Fracture of femoral neck, right, closed: PLAN: Plan Patient is an 89-year-old male who presented [facility] ED on 12/18/2024 with right hip pain after a fall at home. 1. Right femoral neck fracture ? Admit under inpatient status to [facility]. Orthopedic surgery consulted. PT/OT/case management consulted. Had [...] 75 minutes. Charges/Coding Visit Charges Inpatient E&M: 07668 Init Hosp L3 12/18/24 1601 Cosigner Signature (if applicable): CC: Dr. Amado Jean DO; Dr. Dyan Kyle MD~ Signed [facility]07-28-2025 Radiology Diagnostic study note [facility] Imaging Services [address] [place], [place] [address] HIP, UNI W/ Pelvis 2-3 Views MR#: [id number] Acct: [id number] Name: JESS JAMES Rep #: [id number] : 1935 M 89 From: Mark Bello MD PCP: Dr. Dyan Kyle MD Status: R EG ER Study:HIP, UNI W/ Pelvis 2-3 Views Date of Ex am: 12/18/24 Exam# [id number] Ordering Dr: Win Alberto DO PROCEDURE: HIP, [...] at the time of dictation. Reading [facility] CC: Dr. Dyan Kyle MD; Dr. Win Alberto DO ~ Chemical Equipment Sales Engineer: Signed [facility]07-28-2025 Radiology Diagnostic study note [facility] Imaging Services [address] [place] [address] Chest 1 View MR#: [id number] Acct: [id number] Name: JESS JAMES Rep #: [id number] : 1935 M 89 From: Talat Menjivar MD PCP: Dr. Dyan Kyle MD Status: R ER Study:Chest 1 View Date of Exam: 5 Exam# [id number] Ordering Dr: Win Alberto DO PROCEDURE: CHEST [...] of scarring in both lungs. Reading Location: [id number] CC: Dr. Dyan Kyle MD; Dr. Win Alberto DO ~ Chemical Equipment Sales Engineer: Signed [facility]06-17-2025 Progress [facility] [address] [place] [address] OFFICE VISIT Date of Service: 11/07/24 1350 MR#: [id number] Acct: [id number] Name: JESS JAMES Rep #: [id number] : 1935 From: Carolina adams MD Age/Sex: 89/M [place] [facility] [place]: Signed HPI Subjective Date of Service 11/07/24 Chief Complaint prostate cancer on treatment History of Present Illness 89-year-old gentleman with no prior history of malignancies who accidentally fell in Januarynd sustained soft tissue injury mainly the left [...] March 12, 2023 orthopedic oncology evaluation at [facility], Dr. Fischer: Advised conservative management. August 07, [...] every 12 weeks starting March 29, 2023 [facility] Medical History (Updated 11/07/24 @ 13:58 by [...] room air room air room air Intake Tape Editor Required: No Accompanied by: Is patient in [...] gait and assistive device used cane Coordination: rgrfxj-ak-rioe test normal Psych mental status grossly normal [...] subsided. Was evaluated by orthopedic oncology at [facility] and conservative management of the fractured left [...] Impression and plan discussed Carolina Mcgee MD General Partner, [facility] Divisions of Medical Oncology & Hematology Department of Internal Medicine [place] [address] This note was generated using a voice [...] in the past year?: Yes 11/07/24 1429 heather COVARRUBIAS> Date _ Carolina Mcgee MD Cosigner Signature: Date (if applicable) CC: Dr. Dyan Kyle MD ~ [facility]06-17-2025 Progress note Author Carolina Mcgee [facility] Note Date/Time November 07, 2024 2:29 pm [facility] [place] [address] OFFICE VISIT Date of Service: 11/07/24 1350 MR#: [id number] Acct: [id number] Name: JESS JAMES Rep #: [id number] : 1935 From: Carolina adams MD Age/Sex: 89/M [place] [facility] Status: Signed HPI Subjective Date of Service [...] March 12, 2023 orthopedic oncology evaluation at [facility], Dr. Fischer: Advised conservative management. August 07, [...] every 12 weeks starting March 29, 2023 [facility] Medical History (Updated 11/07/24 @ 13:58 by [...] room air room air room air Intake Tape Editor Required: No Accompanied by: Is patient in [...] gait and assistive device used cane Coordination: dyouhr-qz-ypnj test normal Psych mental status grossly normal [...] subsided. Was evaluated by orthopedic oncology at [facility] and conservative management of the fractured left [...] Impression and plan discussed Carolina Mcgee MD General Partner, [facility] Divisions of Medical Oncology & Hematology Department of Internal Medicine [place] [address] This note was generated using a voice [...] fallen in the past year?: Yes 11/07/24 2767 <Electronically signed by Carolina romero MD> Date _ Carolina Burnett Signature: Date (if applicable) CC: Dr. 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 September 1:49pm Pathologic [...] of right hip acute January 05 8:59am [facility] Work Phone: 1(826) 969-503004-22-2025 Evaluation note* Diagnosis Onset Date Resolution Status [...] 2024 1:17pm Prostate cancer chronic October 1:17pm [facility] Work Phone: 1(799) 308-713804-22-2025 Evaluation note* Diagnosis Onset Date Resolution Status [...] right hip acute December 18, 2024 2:35pm [facility] Work Phone: 1(142) 452-518204-22-2025 Evaluation note* Diagnosis Onset Date Resolution Status Admit Date 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 September 12 10:10am Hypertension chronic September 12, 2024 10:10am Left bundle branch block chronic September 12, 2024 10:10am 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 September 12, 2024 10:10am 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 September h2024 1:49pm Pathologic fracture of humerus chron ic [...] of right hip acute January 05 8:59am [facility] Work Phone: [phone]) 234-890603-25-2025 Evaluation note* Diagnosis Onset Date Resolution Status [...] 2024 1:17pm Prostate cancer chronic October 1:17pm [facility] Work Phone: 1([phone]) 404-319703-18-2025 Nuclear medicine Diagnostic study note [facility] Imaging Services [address] [place], [place] [address] Bone Scan Whole Body MR#: [id number] Acct: [id number] Name: JESS JAMES Rep #: [id number] : 1935 M 89 From: Biju Araujo DO PCP: Dr. Dyan Kyle MD Status: R EG CLI Study:Bone Scan Whole Body Date of Exam: 08/07/24 Exam# [id number] Ordering Dr: Carolina Mcgee MD PROCEDURE: Nuclear [...] Kyle MD; Dr. 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 Stable alignment and progressive healing of a mildly angulated pathologic fracture at the mid left humeral diaphysis. Underlying aggressive lytic lesion with cortical invasion. RADIOLOGY 02-13-2023 Progress note Author Ted Lee [facility] February 13, 2023 4:06pm Note Date/Time February 13, 2023 8:13am [facility] Medical Records Department [address] [place] [address] [place] [address] Progress Note - Hospitalist 02/13/23810 MR#: [id number] Acct: [id number] Name: JESS JAMES Rep #:[id number] : 1935 87 From: Ted Loya PCP: Dr. Dyan Kyle MD Status:A DM IN Location: [place]3 QE726-3 Reason for Visit Reason for Visit: Diagnoses [...] % (Auto) 66.8, Lymph % (Auto) 23.5, [place]% (Auto) 8.2, Eos % (Auto) 0.5, Baso [...] % (Auto) 68.9, Lymph % (Auto) 21.9, [place] % (Auto) 7.5, Eos % (Auto) 0.8, [...] fracture: [facility] Patient wasevaluated by the orthopedic surgeon and we discussed. X-rays reviewed and showsmoth-eaten appearance suggestive of pathological fracture history of injury, osteoporosis, tumor or vascular Currently nonweightbearing, sling and swath.Dr. Starks advised Trujillo clahell type brace to the left upper arm [...] % (Auto) 68.9, Lymph % (Auto) 21.9, [place] % (Auto) 7.5, Eos % (Auto) 0.8, [...] 149 H Charges/Coding Visit Charges Inpatient E&M: 45072 Subs Hosp L2 02/13/23 1606 <Electronically signed by Ted Lee MD> Cosigner Signature (if applicable): CC: ~ Signed [facility] Work Phone: 1(575) 315-700909-23-2023 Consult note Author Theodore [facility] February 13, 2023 10:45am Note Date/Time February 13, 2023 10:45am [facility] Medical Records Department [address] [place] [address] Consultation 02/13/23 1039 MR#: [id number] Acct: [id number] Name: JESS JAMES Rep #:[id number] : 1935 87 From: Theodore Mancininovato PCP: Dr. Dyan Kyle MD Status:A DM IN Location: [place] [id number] Assessment & Plan Assessment/Plan (1) Cellulitis of [...] moth-eaten appearance consistent concerning for pathologic fracture. [facility] Medical History (Updated 02/13/23 @ 10:[address] Theodore Starks DO) Bone fracture BPH (benign prostatic hyperplasia) [...] % (Auto) 66.8, Lymph % (Auto) 23.5, [place]% (Auto) 8.2, Eos % (Auto) 0.5, Baso [...] % (Auto) 68.9, Lymph % (Auto) 21.9, [place] % (Auto) 7.5, Eos % (Auto) 0.8, [...] Signed: Jai Menjivar MD at 14:42 EDT Reading Location ID and State: [facility] / [place] , Service support , 02/13/23 1045 <Electronically signed by Theodore Starks DO> Cosigner Signature (if applicable): CC: Dr. Mariana Brown MD; Dr. Dyan Kyle MD; Dr. Theodore Starks DO~ Signed [facility] Work Phone: 1(390) 763-453109-22-2023 Discharge summary Author Simeon Gusman [facility] February 12, 2023 4:47pm Note Date/Time February 12, 2023 2:16pm [facility] Medical Records Department [address] [place] [address] Emergency Department Summary 02/12/23 MR#: [id number] Acct: [id number] Name: JESS JAMES Rep #:[id number] : 1935 87 From: Simeon Gusman MD PCP: Dr. Dyan Kyle MD Status:A DM IN Location: [place] [address] HPI History of Present Illness HPI Narrative: [...] has a strong radial pulse. He has materials handler strength in his left hand. And sensation. [...] From the elbow to the wrist. Normal materials handler strength. Normal radial pulse. Swelling of the [...] Narrative Medical decision making narrative: There is [id number]-[id number] male who has had recent falls. Is [...] diabetes mellitus Disposition Disposition: Acute Care Hospital [facility] What to do if you have Problems For any increased pain, shortness of breath, bleeding, nausea or vomiting, chestpain, or any unexpected problems, contact your Primary Care Provider. Call [facility] ([phone]) or report to the closest Emergency Room. Call 911 if necessary. 02/12/23 1647 <Electronically signed by Simeon Gusman MD> Cosigner Signature (if applicable): CC: Dr. Dyan Kyle MD ~ Signed [facility] Work Phone: 1(296) 210-644809-22-2023 History and physical note Author Mariana Brown [facility] February 12, 2023 3:54pm Note Date/Time February 12, 2023 3:32pm [facility] Medical Records Department [address] [place] [address] H&P Exam - Hospitalist 02/12/23 1528 MR#: [id number] Acct: [id number] Name: JESS JAMES Rep #:[id number] : 1935 87 From: Mariana Brown MD PCP: Dr. Dyan Kyle MD Status:A DM IN [facility] - General General Date of Admission: 02/12/23 Date of Service: 02/12/23 Chief Complaint: LUE pain, redness, swelling s/p fall. HPI Narrative The patient is an 87 y/o M w/ PMHx: BPH, HTN, Diabetes mellitus type II who presents to the [facility] ED on 02/12/23 with history [...] with cellulitic findings with appropriate sensation and materials handler strength with dressing and splint taken down [...] who notedintention to see patient in consult. [facility] Medical History (Updated 02/12/23 @ 15:45 by [...] % (Auto) 66.8, Lymph % (Auto) 23.5, [place]% (Auto) 8.2, Eos % (Auto) 0.5, Baso [...] Signed: Jai Menjivar MD at 14:42 EDT Reading Location ID and State: [facility] / [place] , Service support , Assessment & Plan Assessment/Plan (1) Closed left humeral fracture: (2) Cellulitis of arm, left: PLAN: Plan The patient is an 87 y/o M w/ PMHx: BPH, HTN, Diabetes mellitus type II who presents to the [facility] ED on 02/12/23 with history [...] 16 minutes. Charges/Coding Visit Charges Inpatient E&M: 87484 Init Hosp L3 Procedures Hospitalists Procedures: 82725 Advncd Care Plan 30 Min 02/12/23 1554 <Electronically signed by Mariana Brown MD> Cosigner Signature (if applicable): CC: Dr. Mariana Brown MD; Dr. Dyan Kyle MD~ Signed [facility] Work Phone: 1(484) 712-726607-20-2022 Miscellaneous Notes* Telephone Encounter - Sania Gregory, CHELLE.FINISH[employer] MAP [employer] CHART - 12/10/2021 2:44 PM EDT Patient is overdue for annual exam Thank you Sania Gregory APRN.GEORGIE * Telephone Encounter - Kimi Reyes - [...] Please review. Kim[facility] Reyes [facility]21 NoteHNO ID: [id number] Author: Sophia Pineda LPN Service: ? Author [...] further instructions after review by PCP. Sophia Miriam [facility]04-30-2021 NoteHNO ID: [id number] Author: Joce Hernandez APRN.[employer]ISH[employer] MAP [employer] CHART Service: ? Author Type: Nurse Practitioner Type: [...] 88 Resp 16 Ht 179.1 cm (5' 10.5) Wt 84.4 kg (186 lb) BMI 26.31 [...] - BMP (BMP) (FOR REMOTE [facility] USE) - HEMOGLOBIN A1C (FOR REMOTE [facility] USE) 2. Elevated blood pressure reading without diagnosis of hypertension - ICD9: 796.2, ICD10: R03.0 - Encouraged dietary sodium restriction/DASH diet - Recheck in 2-4 weeks, sooner if needed. 3. Situation (more content not included)...[facility] summary Author Ted Lee [facility] February 14, 2023 11:10am Note Date/Time February 14, 2023 11:05am [facility] Medical Records Department [address] [place] [address] Instructions for Home/Discharge Instructions 02/14/23 1103 MR#: [id number] Acct: [id number] Name: JESS JAMES Rep #:[id number] : 1935 87 From: Ted Loya PCP: [...] Brown Instructions Additional Instructions / Restrictions: call [email or web address] 2922 [[facility] [address]] and bring prescription to obtain Trujillo clam shell brace to left humerus. than begin elbow ROM and shoulder pendulums as demonstrated by dr Starks 3x/day, in addition to finger and wrist ROM to avoid loss of function and maintain range ofmotion. No lifting pushing or pulling with left arm. Advised to follow-up orthopedic oncology, Dr. Nicholas Menendez, [facility] Ortho quality are Dr. Lopez, in [facility]. Discharge Orders/Prescriptions Prescriptions: New oxycodone 5 mg Tablet 2.5 - 5 mg PO Q4H PRN PRN (Reason: Pain Score 4-10) 7 Days Qty: 20 0RF acetaminophen 325 mg Tablet 1,000 mg PO Q8H Qty: 0 0RF Rx Instructions: Buby-szj-ozaaipw. 1000 mg every 8 hourly for 1 [...] MD; Dr. Theodore Starks DO ~ Signed [facility] Work Phone: Discharge summary Author Radha Cope [facility] Note Date/Time December 24, 2024 1:2 8pm [facility] Medical Records Department [address] [place] [address] Transfer to [facility] MR#: [id number] Acct: [id number] Name: JESS JAMES Rep #:[id number] : 1935 89 From: Radha Cope DO PCP: Dr. Dyan Kyle MD Status:A DM IN Certification of patient admission REQUIRED AT TIME OF ADMISSION. I CERTIFY THAT POST-HOSPITAL ECF SERVICES ARE REQUIRED TO BE GIVEN ON AN IN-PATIENT BASIS BECAUSE OF THE ABOVE NAMED PATIENT'S NEED FOR RESIDENTIAL CARE ON A CONTINUING BASIS FOR THE CONDITION(S) FOR WHICH HE/SHE WAS RECEIVINGIN-PATIENT HOSPITAL SERVICES PRIOR TO HIS/HER TRANSFER TO THE [facility]. 12/24/24 1322<Electronically signed by Radha Cope DO> [...] Hamilton MD; Dr. Dyan Kyle MD~* Signed [facility] Work Phone: Discharge summary Author Radha Cope [facility] Note Date/Time December 24, 2024 1:3 6pm [facility] Medical Records Department [address] [place] [address] Discharge Summary 12/24/24 1322 MR#: [id number] Acct: [id number] Name: JESS JAMES Rep #:[id number] : 1935 89 From: Radha Cope DO PCP: Dr. Dyan Kyle MD Status:A DM IN Location: [facility] TO[facility]-5 Providers Date of Admission: 12/18/24 Date of [...] surgery by the emergency department physician and planwamarc for surgical intervention. He was admitted to [...] rehab after discharge. He was accepted at [facility] and pre-CERT was obtained by his insurance company on the evening of 12/23/2024. We were notified by the nursing facility midday on 12/24/2024 that pre-CERT was obtained and he was discharged to [facility] in stable condition at that time. He [...] was not largebut he had several small turds Const alert, oriented x3, no apparent distress, [...] instructions: No Please Follow Up With: Adi Lopez DO Meaningful Use Info Meaningful Use Meaningful [...] in before D/C Order can be placed): Retirement Facility Charges/Coding Visit Charges Inpatient E&M: 66715 SNF Disch >30 Min 12/24/24 1336 <Electronically signed by Radha Cope DO> Cosigner Signature (if applicable): CC: Dr. Bj Hamilton MD; Dr. Dyan Kyle MD; Dr. Radha Cope DO~ Signed [facility] Work Phone: Evaluation note* Diagnosis Onset Date Resolution Status Change in skin mole acute Elevated blood pressure reading acute Type 2 diabetes mellitus chr onic [facility] Work Phone: Evaluation note* Diagnosis Controlled type 2 diabetes mellitus with stage 3 chronic kidney disease, without long-term current use of insulin (HCC) [facility] Diagnosis Onset Date Resolution Status Change [...] Fall acute History of diabetes mellitus acute [facility] Work Phone: Evaluation note* Diagnosis Onset Date [...] Fall acute History of diabetes mellitus acute [id number] acute Pathologic fracture of humerus acute [facility] Work Phone: Evaluation note* Diagnosis Onset Date [...] acute Elevated PSA acute Prostate enlargement acute [facility] Work Phone: Evaluation note* Diagnosis Onset Date [...] fracture of humerus acute Prostate cancer acute [facility] Work Phone: Evaluation note* Diagnosis 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, initial encounter [facility] Diagnosis Onset Date Resolution Status Change [...] fracture of humerus chronic Prostate cancer chronic [facility] Work Phone: Evaluation note* Diagnosis 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, initial encounter [facility] Diagnosis Onset Date Resolution Status [...] fracture of humerus chronic Prostate cancer chronic [facility] Work Phone: Evaluation note* Diagnosis Onset Date [...] fracture of humerus chronic Prostate cancer chronic [facility] Work Phone: Evaluation note* Diagnosis Onset Date [...] lower extremities chronic Weight loss, non-intentional chronic [facility] Work Phone: History and physical note Author Mariana Brown [facility] February 12, 2023 3:54pm Note Date/Time February 12, 2023 3:32pm [facility] Medical Records Department [address] [place] [address] H&P Exam - Hospitalist 02/12/23 1528 MR#: [id number] Acct: [id number] Name: JESS JAMES Rep #:[id number] : 1935 87 From: Mariana Brown MD PCP: Dr. Dyan Kyle MD Status:A DM IN Location: [address] HPI - General General Date of Admission: 02/12/23 Date of Service: 02/12/23 Chief Complaint: LUE pain, redness, swelling s/p fall. HPI Narrative The patient is an 87 y/o M w/ PMHx: BPH, HTN, Diabetes mellitus type II who presents to the [facility] ED on 02/12/23 with history [...] with cellulitic findings with appropriate sensation and materials handler strength with dressing and splint taken down [...] who notedintention to see patient in consult. [facility] Medical History (Updated 02/12/23 @ 15:45 by [...] (Updated 02/12/23 @ 15:[address] Mariana rBown MD) household members: spouse Smoking Status: Never [...] % (Auto) 66.8, Lymph % (Auto) 23.5, [place]% (Auto) 8.2, Eos % (Auto) 0.5, Baso [...] mellitus type II who presents to the [facility] ED on 02/12/23 with history [...] 16 minutes. Charges/Coding Visit Charges Inpatient E&M: 46182 Init Hosp L3 Procedures Hospitalists Procedures: 28020 Advncd Care Plan 30 Min 02/12/23 0574 <Electronically signed by Mariana Brown MD> Cosigner Signature (if applicable): CC: Dr. Mariana Brown MD; Dr. Dyan Kyle MD~ Signed [facility] Work Phone: Hospital Discharge instructionsAmbulatory Orders* Oncology Location: None Selected [facility] Work Phone: Progress note Author Theodore Addishoangraz [facility] February 14, 2023 10:40am Note Date/Time February 14, 2023 10:35am [facility] Medical Records Department [address] [place] [address] Progress Note - Orthopedic 02/14/23 1030 MR#: [id number] Acct: [id number] Name: JESS JAMES Rep #:[id number] : 1935 87 From: Theodore Starks DO PCP: Dr. Dyan Kyle MD Status:A DM IN [facility] Subjective Subjective Seen and examined doing okay [...] Trujillo clamshell brace to be obtained from [employer]. Instructed to call prior to arriving. Patient [...] 1040 Addendum Once brace is obtained from [employer] begin elbow range of motion and shoulder pendulum exercises as were demonstrated no lifting pushing or pulling left arm. I provided narcotic prescription left on the chart. 02/14/23 1040<Electronically signed by Theodore Starks DO> Cosigner Signature (if applicable): cc: ~* Signed [facility] Work Phone: Reason for referral (narrative)No reason for referral information availableWSelect [facility] Work Phone: Summary Purpose Family History No Family History Records Found Relationship Condition Age at Onset Recorded Date/T kae father Malignant melanoma Unknown mother Malignant neoplasm of ovary Unknown Advance Directives No Advanced Directives Records Found Advance Directive Response Recorded Date/ Time Living Will No February 12, 2023 2:32pm Power of Human Services Manager No January 2:32pm Advance Directive Response Recorded Date/ Time Living Will No February 12, 2023 4:45pm Power of Human Services Manager No January 4:45pm Advance Directive Response Recorded Date/ Time Living Will No February 12, 2023 3:45pm Power of Human Services Manager No January 3:45pm Advance Directive Response Recorded Date/ Time Living Will No December 06, 2023 1:29pm Do you have a Healthcare Power of Human Services Manager? No December 06, 2023 1:29pm Living Will No February 12, 2023 4:45pm Do you have a Healthcare Power of Human Services Manager? No February 12, 2023 4:45pm Living Will No June 03 6:39pm Do you have a Healthcare Power of Human Services Manager? No June 03, 2024 6:39pm Advance Directive Response Recorded Date/ Time Living Will No February 12, 2023 4:45pm Do you have a Healthcare Power of Human Services Manager? No February 12, 2023 4:45pm Advance Directive Response Recorded Date/ Time Living Will No February 12, 2023 4:45pm Do you have a Healthcare Power of Human Services Manager? No February 12, 2023 4:45pm Do you have a Healthcare Power of Human Services Manager? No December 18, 2024 11:55am Advance Directive Response Recorded Date/ Time Living Will No February 12, 2023 4:45pm Do you have a Healthcare Power of Human Services Manager? No February 12, 2023 4:45pm Do you have a Healthcare Power of Human Services Manager? 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 CARE - NPP SENT Reason for [...] humeral fracture Fall History of diabetes mellitus [id number] Pathologic fracture of humerus Chief Complaint 6 [...] humeral fracture Fall History of diabetes mellitus [id number] Pathologic fracture of humerus Chief Complaint 6 [...] WEIGHT LOSS BROKEN ARM NEW-BONE CA LYMPHEDMA. TO FAX RX Malignant neoplasm of bone and articular [...] WEIGHT LOSS BROKEN ARM NEW-BONE CA LYMPHEDMA. TO JORGEX RX Malignant neoplasm of bone and articular [...] humerus Prostate cancer Chief Complaint LYMPHEDMA. DR TO FAX RX Malignant neoplasm of bone and articular [...] right hi p January 05, 2025 8:59am Chief Complaint Admit Date 6 WKS - LABS September 26, 2024 [...] HIP FRACTURE December 24, 2024 1:2 1pm LAB WORK December 26, 2024 4:0 0am RIGHT HIP January 05, 2025 8: 59am Room 4 January 05, 2025 9: 23am [facility] Center Discharge Follow up December 232024 7:47am Reason for Visit Admit Date Metastasis to bone September 26, 2024 1:49pm [...] MD [address] [place] [address] Referral ID Status Reason Start Date Expiration Date V isits Requested Visits Authorized [id number] New Request 03/12/2023 04/05/2024 1 1 Additional Source Comments (unrecognized sect ion and content) No Status Records FoundNo Status Records FoundNo Status Records Found INFORMATION SOURCE (unrecogn ized section and content) DATE CREATED AUTHOR 06/20/2021 [facility] DATE CREATED AUTHOR AUTHOR'S ORGANIZ ATION 11/11/2023 [facility] DATE CREATED AUTHOR AUTHOR'S ORGANIZ ATION 01/16/2025 [facility] Goals (unrecognized section and content) Goals may [...] or prosecute any alcohol or drug abuse patient.[facility] Reason for Visit (unrecogniz ed section and content) Reason Comments Refill Request Specialty Diagnoses / Procedures Referred By Contac t Referred To Contact Diagnoses 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 Carolina Mcgee MD Attending Provider Active Briquette Molder Relationship Specialty Start Date End Date Dyan Kyle MD [address] [phone] PCP - General Internal Medicine 03/01/23 Carolina Mcgee, [facility] [address] [place] [address] [phone] Oncologist Medical Oncology 03/01/23 Eileen Molina, [facility] Registered Nurse 03/01/23 Team Status: Inactive Member Role Status Dates Dr. Dyan Kyle MD Primary Care Provider Active Dr. Carolina Mcgee MD Attending Provider Active Team Status: Active Member Role Status Dates Dr. Dyan Kyle MD Primary Care Provider, Atten ding Provider Active Dr. Carolina Mcgee MD Other Provider Active Briquette Molder Relationship Specialty Start Date End Date Dyan Kyle MD [address] [phone] PCP - General Internal Medicine 03/01/23 Magdy Vaishnavilivan Marc, [facility] [address] [place] [address] Oncologist Medical Oncology 03/01/23 Eileen Molina, [facility] Registered Nurse 03/01/23 Team Status: Inactive Member Role Status Dates Dr. Dyan Kyle MD Primary Care Provider, Refer ring Provider Active Rachael Posada FARM MANAGEMENT TEACHER, FARM MANAGEMENT TEACHER-C Attending Provider Active Team Status: Inactive Member [...] May 23, 2024 End: May 23, 2024 Rachael Posada NP, FARM MANAGEMENT TEACHER-C Attending Provider Active Start: May 23, 2024 [...] End: December 24, 2024 Dr. Win Alberto , Emergency Provider Active Start: December 18, 2024 End: December 24, 2024 Dr. Amado Jean DO Admit Provider Active Start: December 18, 2024 End: December 24, 2024 Dr. Amado Jean DO Other Provider Active Start: December 18, 2024 End: December 24, 2024 Dr. Bj Hamilton MD Other Provider Active Star t: December 18, 2024 End: December 24, 2024 Dr. Radha Cope , Attending Provider Active S tart: December 18, 2024 End: December 24, 2024 Team Status: Active Member Role/Relationship Status Dates Dr. Dyan Kyle MD Primary Care Provider Active Start: December 19, 2024 Dr. Win Alberto DO Emergency Provider Active Start: December 19, 2024 Dr. Amado Jean DO Admit Provider Active Start: December 19, 2024 Dr. Amado Jean DO Other Provider Active Start: December 19, 2024 Dr. Bj Hamilton MD Other Provider Active Star t: December 19, 2024 Dr. Radha Cope , Attending Provider Active S tart: December 19, 2024 Dr. Radha Cope , Other Provider Active Start : December 19, 2024 Team Status: Active Member Role/Relationship Status Dates Dr. Dyan Kyle MD Primary Care Provider Active Start: December 19, 2024 Dr. Win Alberto DO Emergency Provider Active Start: December 19, 2024 Dr. Amado Jean DO Admit Provider Active Start: December 19, 2024 Dr. Amado Jean DO Other Provider Active Start: December 19, 2024 Dr. Bj Hamilton MD Attending Provider Active Start: December 19, 2024 Dr. Bj Hamilton MD Other Provider Active Star t: December 19, 2024 Dr. Radha Cope DO Other Provider Active Start : December 19, 2024 Team Status: Active Member Role/Relationship Status Dates Dr. Dyan Kyle MD Primary Care Provider Active Start: December 20, 2024 Dr. Win Schwiger , DO Emergency Provider Active Start: December [...] December 21, 2024 Dr. Win Alberto , Emergency Provider Active Start: December 21, 2024 Dr. Amado Jean , DO Admit Provider Active Start: December 21, 2024 Dr. Amado Jean , DO Other Provider Active Start: December 21, 2024 Dr. Bj Hamilton MD Other Provider Active Star t: December 21, 2024 Dr. Radha Cope , Attending Provider Active S tart: December 21, [...] Start: December 22, 2024 Dr. Win Alberto DO Emergency Provider Active Start: December 22, 2024 Dr. Amado Jean , DO Admit Provider Active Start: December 22, 2024 Dr. Amado Jean DO Other Provider Active Start: December 22, 2024 Dr. Bj Hamilton MD Other Provider Active Star t: December 22, 2024 Dr. Radha Cope , Attending Provider Active S tart: December 22, 2024 Dr. Radha Cope DO Other Provider Active Start : December 22, 2024 Team Status: Active Member Role/Relationship Status Dates Dr. Dyan Kyle MD Primary Care Provider Active Start: December 23, 2024 Dr. Win Alberto DO Emergency Provider Active Start: December 23, 2024 Dr. Amado Jean DO Admit Provider Active Start: December 23, 2024 Dr. Amado Jean DO Other Provider Active Start: December 23, 2024 Dr. Bj Hamilton MD Other Provider Active Star t: December 23, 2024 Dr. Radha Cope DO Attending Provider Active S tart: December 23, 2024 Dr. Radha Cope DO Other Provider Active Start : December 23, 2024 Team Status: Active Member Role/Relationship Status Dates Dr. Dyan Kyle MD Primary Care Provider Active Start: December 24, 2024 Dr. Win Alberto DO Emergency Provider Active Start: December 24, 2024 Dr. Amado Jean DO Admit Provider Active Start: December 24, 2024 Dr. Amado Jean DO Other Provider Active Start: December 24, 2024 [...] Active Start: November 07, 2024 Team Status: Inactive Member Role/Relationship Status Dates Dr. Dyan Kyle MD Primary Care Provider Active Start: December 18, 2024 End: December 24, 2024 Dr. Win Alberto DO Emergency Provider Active Start: December 18, 2024 End: December 24, 2024 Dr. Amado Jean , Admit Provider Active Start: December 18, 2024 End: December 24, 2024 Dr. Amado Jean DO Other Provider Active Start: December 18, 2024 End: December 24, 2024 Dr. Bj Hamilton MD Other Provider Active Star t: December 18, 2024 End: December 24, 2024 Dr. Radha Cope DO Attending Provider Active S tart: December 18, 2024 End: December 24, 2024 Team Status: Active Member Role/Relationship Status Dates Dr. Dyan Kyle MD Primary Care Provider Active Start: December 19, 2024 Dr. Win Alberto DO Emergency Provider Active Start: December 19, 2024 Dr. Amado Jean DO Admit Provider Active Start: December 19, 2024 Dr. Amado Jean DO Other Provider Active Start: December 19, 2024 Dr. Bj Hamilton MD Other Provider Active Star t: December 19, 2024 Dr. Radha Cope DO Attending Provider Active S tart: December 19, 2024 Dr. Radha Cope DO Other Provider [...] December 20, 2024 Dr. Radha Cope , Attending Provider Active S tart: December 20, [...] 21, 2024 Dr. Amado Jean , DO Admit Provider Active Start: December 21, 2024 Dr. Amado Jean , DO Other Provider Active Start: December 21, 2024 Dr. Bj Hamilton MD Other Provider Active Star t: December 21, 2024 Dr. Radha Cope , DO Attending [...] 22, 2024 Dr. Radha Cope , DO Attending Provider Active S tart: December 22, 2024 Dr. Radha Cope , DO Other Provider Active Start : December 22, 2024 Team Status: Active Member Role/Relationship Status Dates Dr. Dyan Kyle MD Primary Care Provider Active Start: December 23, 2024 Dr. Win Alberto , DO Emergency Provider Active Start: December 23, 2024 Dr. Amado Jean , DO Admit Provider Active Start: December 23, 2024 Dr. Amado Jean , DO Other Provider Active Start: December 23, 2024 Dr. Bj Hamilton MD Other Provider Active Star t: December 23, 2024 Dr. Radha Cope , DO Attending Provider Active S tart: December 23, 2024 Dr. Radha Cope , DO Other Provider Active Start : December 23, 2024 Team Status: Active Member Role/Relationship Status Dates Dr. Dyan Kyle MD Primary Care Provider Active Start: December 24, 2024 Dr. Win Alberto DO Emergency Provider Active Start: December 24, 2024 Dr. Amado Jean DO Admit Provider Active Start: December 24, 2024 Dr. Amado Jean DO Other Provider Active Start: December 24, 2024 [...] Attending Provider Active Start: December 26, 2024 Dr. Arin ARGUETA MD Referring Provider Active Start: December 26, 2024 Team Status: Active Member Role/Relationship Status Dates Dr. Dyan Kyle MD Primary Care Provider Active Start: January 02, 2025 Dr. Arin ARGUETA MD Attending Provider Active Start: January 02, 2025 Team Status: Inactive Member Role/Relationship Status [...] 2025 End: January 05, 2025 Team Status: Active Member Role/Relationship Status Dates Dr. Dyan Kyle MD Primary Care Provider Active Start: January 09, 2025 Dr. Arin ARGUETA MD Attending Provider Active Start: January 09, 2025 Team Status: Inactive Member Role/Relationship Status Dates Dr. Dyan Kyle MD Primary Care Provider Active Start: January 15, 2025 End: January 15, 2025 Dr. Dyan Kyle MD Attending Provider Active Start: January 15, 2025 End: January 15, 2025 Dr. Dyan Kyle MD Referring Provider Active Start: January 15, 2025 End: January 15, 2025 FOR RECORDS PERTAINING TO PATIENTS WHO [...] BE BASED ON THE PRIMARY CLINICAL RECORDS. [facility] imagine [facility]. provides no warranty or guarantee of the accuracy or completeness of information in this document.
== END | disposition home or self-care (01) ==
PROVIDERS: PCP Internal Medicine; Referring Provider Internal Medicine; Visit Provider Internal Medicine
DX: I50.9 Heart failure, unspecified (principal)
CPT/HCPCS: 36415; 80048

== ENCOUNTER → 2025-04-27 | Outpatient (CLI) | payer MEDICARE, SELFPAY ==
--- OUTSIDE RECORDS SUMMARY | 2025-04-27 16:09 | XMS RPT_ITS | CCD ---
Author Organization [facility] Care Team Providers Care Staff Counselor Name Role Phone Brenda Raymond Attending Provider [...] Dr. Mariana Brown Attending Provider Dr. Mariana Borwn Other Provider Dr. Theodore Starks Other Provider Dr. Ted Lee Attending Provider Dr. Ted Lee Other Provider Dr. Theodore Starks Attending Provider Dr. Win Ramey Attending Provider Dr. Ted Lee Referring Provider KELSIE De La Rosa Attending Provider Dr. Mariana Brown Referring Provider Dr. Carolina Mcgee Attending Provider Dyan Kyle MD Primary Care Provider Arely CHAUCarolina Covarrubias Unavailable Eileen Molina RN Unavailable Unavailable Dr. [...] Other Provider Dr. Ted Lee Attending Provider Jesus, Dr. Jean Other Provider Dr. Theodore Starks Attending Provider Dr. Ted Lee Referring Provider Dr. Carolina Mcgee Attending Provider Albino HYDROLOGY PROFESSOR, JILL-Derrek Cano Attending Provider Dr. Dyan Kyle Primary Care Provider Dr. Dyan Kyle Attending Provider Dr. Dyan Kyle Referring Provider Dr. Carolina Mcgee Attending Provider Dr. Win Ramey Attending Provider DYAN KYLE Referring Unavailable DYAN KYLE Primary Care Unavailable LONNIE FISCHER Attending Unavailable LONNIE FISCHER Attending Unavailable OLEGHE, EFEWONGBE B Referring Unavailable OLEGHE, EFEWONGBE B Primary Care Unavailable OLEGHE, EFEWONGBE B Primary Care Unavailable AMADO, LONNIE H Attending Unavailable CAROLINA MCGEE Referring Unavailable [...] Unavailable OLEGHE, EFEWONGBE B Primary Care Unavailable FER TIFFANIE Oren Attending Unavailable Saroj COVARRUBIAS, Dr. Viera Primary Care Provider Saroj COVARRUBIAS, Dr. Viera Attending Provider [phone] Saroj COVARRUBIAS, Dr. Viera Referring Provider [phone] Albino MELCHOR-CRachael Attending Provider Dr. Carl Anders DO Attending Provider Dr. Carl Anders DO Emergency Provider Dr. Carolina Mcgee MD Attending Provider Dr. Carolina Mcgee MD Referring Provider Dr. Dyan Kyle MD Primary Care Provider Dr. Dyan Kyle MD Referring Provider [phone] Dr. Carolina Mcgee MD Attending Provider Dr. [...] Provider Trista COVARRUBIAS, Dr. Hinkle Attending Provider Unavailroland Patel NP-C, Jackie Attending Provider Sg COVARRUBIAS, Dr. Cotto Attending Provider Saroj COVARRUBIAS, Dr. Viera Primary Care Provider Saroj COVARRUBIAS, Dr. Viera Referring Provider Dr. Arin Weston MD Referring Provider Unavaila michelle Cope DO, Dr. Garcia Referring Provider Saroj COVARRUBIAS, Dr. Viera Primary Care Provider Saroj COVARRUBIAS, Dr. Viera Referring Provider Arely COVARRUBIAS, Dr. Figueroa Attending Provider Saroj COVARRUBIAS, Dr. Viera Primary Care Physician Saroj COVARRUBIAS, Dr. Viera Attending Physician [phone] Saroj COVARRUBIAS, Dr. Viera Referring Provider Arely COVARRUBIAS, Dr. Figueroa Attending Physician Arely COVARRUBIAS, Dr. Figueroa Referring Provider Dr. Win Alberto DO Emergency Department Physi hawa Miranda NUÑEZ, Dr. Fischer Admitting Physician Miranda NUÑEZ, Dr. Fischer Nurse Practitioner Alfonso COVARRUBIAS, Dr. Lorenzo Nurse Practitioner Anatoliy NUÑEZ, Dr. Garcia Attending Physician Anatoliy NUÑEZ, Dr. Garcia Nurse Practitioner Alfonso COVARRUBIAS, Dr. Lorenzo Attending Physician Anatoliy NUÑEZ, Dr. Garcia Referring Provider Renae Araujo Attending Physician Trista COVARRUBIAS, Dr. iHnkle Attending Physician Unavail steve Weston MD, Dr. Hinkle Referring Provider Unavail michelle Patel HYDROLOGY PROFESSOR-C, Jackie Attending Physician Sg COVARRUBIAS, Dr. Cotto Attending Physician Saroj COVARRUBIAS, Dr. Viera Primary Care Physician Dolly NUÑEZ, Dr. Walden Emergency Department Physi hawa Miranda NUÑEZ, Dr. Fischer Admitting Physician Miranda NUÑEZ, Dr. Fischer Nurse Practitioner Alfonso COVARRUBIAS, Dr. Lorenzo Nurse Practitioner Anatoliy NUÑEZ, Dr. Garcia Attending Physician Anatoliy NUÑEZ, Dr. Garcia Nurse Practitioner Alfonso COVARRUBIAS, Dr. Lorenzo Attending Physician Anatoliy NUÑEZ, Dr. Garcia Referring Provider Renae Araujo Attending Physician Trista COVARRUBIAS, Dr. Hinkle Attending Physician Unavail steve Weston MD, Dr. Hinkle Referring Provider Unavaila ble Saroj COVARRUBIAS, Dr. Viera Referring Provider Jorge MELCHOR-CJackie Attending Physician Sg COVARRUBIAS, Dr. Cotto Attending Physician Saroj COVARRUBIAS, Dr. Viera Attending Physician Bob Johnson Attending Physician Arely COVARRUBIAS, Dr. Figueroa Attending Physician Arely COVARRUBIAS, Dr. Figueroa Referring Provider Albino MELCHOR-CRachael Attending Physician Oleghe, Efewongbe Primary Care Unavailable Gudla Placido ARGUETAyothi Attending Unavailable Oleghe, Efewongbe Primary Care Unavailable Gudla Placido ARGUETAyothi Attending Unavailable Gudla OLS Arin Referring Unavailable Oleghe, Efewongbe Primary Care Unavailable Gudla KENDALL Arin Referring Unavailable Gudla Placido ARGUETAyothi Attending Unavailable Vaishnavi Mcgeeour Referring Unavailable KaciekarCarolina woodward Attending Unavailable Oleghe, Efewongbe Primary Care Unavailable Carolina Mcgee Attending Unavailable KaciekarCarolina woodward Referring Unavailable Oleghe, Efewongbe Primary Care Unavailable Oleghe, Efewongbe Primary Care Unavailable Carolina Mcgee Attending Unavailable Oleghe, Efewongbe Referring Unavailable Oleghe, Efewongbe Primary Care Unavailable Oleghe, Efewongbe Referring Unavailable Oleghe, Efewongbe Attending Unavailable Oleghe, Efewongbe Primary Care Unavailable Amado Jean Admitting Unavailable Amado Jean Attending Unavailable Amado Jean Consulting Unavailable Bj Hamilton Consulting Unavailable Renae Rodríguez Attending Unavailable Radha Cope Consulting Unavailable Oleghe, Efewongbe Primary Care Unavailable Yadiel Bettencourt Attending Unavailable Oleghe, Efewongbe Primary Care Unavailable Rachael Posada NP Attending Unavailable Oleghe, Efewongbe Referring Unavailable Oleghe, Efewongbe Primary Care Unavailable Bob Snyder Attending Unavailable Oleghe, Efewongbe Referring Unavailable IsckarCarolina woodward Attending Unavailable Oleghe, Efewongbe Primary Care Unavailable Oleghe, Efewongbe Referring Unavailable Radha Cope Attending Unavailable Bj Hamilton Attending Unavailable Oleghe, Efewongbe Primary Care Unavailable Jackie Patel Attending Unavailable Oleghe, Efewongbe Referring Unavailable Carolina Mcgee Attending Unavailable Oleghe, Efewongbe Primary Care Unavailable Oleghe, Efewongbe Referring Unavailable Oleghe, Efewongbe Primary Care Unavailable Yadiel Bettencourt Attending Unavailable Oleghe, Efewongbe Primary Care Unavailable Oleghe, Efewongbe Attending Unavailable Oleghe, Efewongbe Referring Unavailable Oleghe, Efewongbe Primary Care Unavailable Bob Snyder Attending Unavailable Oleghe, Efewongbe Referring Unavailable Oleghe, Efewongbe Primary Care Unavailable Jackie Patel Attending Unavailable Oleghe, Efewongbe Referring Unavailable Oleghe, Efewongbe Primary Care Unavailable Oleghe, Efewongbe Attending Unavailable Oleghe, Efewongbe Referring Unavailable Radha Cope Attending Unavailable Oleghe, Efewongbe Primary Care Unavailable Bj Hamilton Consulting Unavailable Amado Jean Admitting Unavailable Amado Jean Consulting Unavailable Radha Cope Referring Unavailable Carolina Mcgee Attending Unavailable Oleghe, Efewongbe Primary Care Unavailable Oleghe, Efewongbe Referring Unavailable Oleghe, Efewongbe Primary Care Unavailable Albino HYDROLOGY PROFESSOR, Rachael Attending Unavailable Oleghe, Efewongbe Referring Unavailable Oleghe, Efewongbe Primary Care Unavailable Albino HYDROLOGY PROFESSOR, Rachael Attending Unavailable Oleghe, Efewongbe Referring Unavailable Oleghe, Efewongbe Primary Care Unavailable Oleghe, Efewongbe Referring Unavailable Oleghe, Efewongbe Attending Unavailable Oleghe, Efewongbe Primary Care Unavailable Yadiel Bettencourt Attending Unavailable Oleghe, Efewongbe Primary Care Unavailable Oleghe, Efewongbe Referring Unavailable Oleghe, Efewongbe Attending Unavailable Oleghe, Efewongbe Primary Care Unavailable Jackie Patel Attending Unavailable Oleghe, Efewongbe Referring Unavailable Oleghe, Efewongbe Primary Care Unavailable Carl Anders Attending Unavailable Allergies Allergy Classification Reported Allergen(s) Allergy Type Date of Onset Reaction(s) Facility (20 sources) Shellfish; Translations: [shellfish derived] Allergy to substance 12-12-2015 Swelling [facility] (2 sources) Shellfish-Derive d Products Propensity to adverse reactions to drug 03-08-2023 [facility] Medications Current Medications Medication Drug Class(es) Dates Sig (Normalized) Sig (Original) aspirin 81 mg delayed release oral tablet (12 sources) Platelet Aggregation Inhibitor, Nonsteroidal Anti-inflammatory Drug Start: 09-13-2024 atorvastatin 10 mg oral tablet (12 sources) HMG-CoA Reductase Inhibitor Start: 09-13-2024 calcium carbonate 500 mg chewable tablet (9 sources) Start: 12-24-2024 carvedilol 3.125 mg oral tablet (20 sources) alpha-Adrenergic Keisha, beta-Adrenergic Keisha Start: 03-12-2025 Start: 01-03-2024 End: 03-12-2025 Start: 01-03-2024 End: 12-11-2024 take 1 tablet by mouth twice daily Carvedilol 25 mg tablet Discontinued 25 mg PO TWICE A DAY 60 30 11 January 03, 2024 3:23pm December 11, 2024 11:15am Start: 11-23-2023 End: 01-03-2024 Start: 11-15-2023 End: 11-23-2023 dapagliflozin 5 mg oral tabl et (8 sources) Sodium-Glucose Cotransporter 2 Inhibitor Start: 01-05-2025 empagliflozin 25 mg oral tab let (20 sources) Sodium-Glucose Cotransporter 2 Inhibitor Start: 01-15-2025 End: 01-26-2025 Start: 11-15-2023 End: 01-05-2025 glucagon (rdna) 1 mg injecti on (8 sources) Antihypoglycemic Agent Start: 01-05-2025 Start: 01-05-2025 Glucagon (Gluc agon Emergency Kit (Human)) 1 mg recon soln Active 1 mg SC Q20M as needed January 05, 2025 12:00am until target blood sugar attained Lift Chair (6 sources) Start: 01-02-2025 Lift Chair Act chloe 0 .Route .MEDSUPPLY 1 0 January 02, 2025 12:00am Malignant neoplasm metastatic to bone Debility Cardiomyopathy Secondary malignant neoplasm of bone Other malaise Cardiomyopathy, unspecified As directed magnesium hydroxide 80 mg/ml oral suspension (8 sources) Start: 01-05-2025 Start: 01-05-2025 take 1 mL by mouth o nce as needed Magnesium Hydroxide (Milk Of Magnesia) 400 mg/5 mL suspension Active 30 mL PO ONCE as needed January 05, 2025 12:00am Multiple Vitamin (multivitamin) capsule (2 sources) take 1 capsule by mouth once daily Multiple Vitamin (multivitamin) capsule Take 1 capsule by mouth daily. 0 Active sacubitril 49 mg / valsartan 51 mg oral tablet (20 sources) Angiotensin 2 Receptor Keisha Start: 12-07-19 End: 11-21-19 Start: 12-07-2023 End: 11-20-2024 Sacubitril-Valsartan (Entres to) 49-51 mg tablet Active 1 {tbl} PO TWICE A DAY 60 11 November 20, 2024 12:25pm On Hold: Restart once systolic blood pressure is consistently greater than 130 Start: 11-15-2023 End: 12-07-2023 Start: 11-15-2023 End: 12-07-2023 Sacubitril-Valsartan (Entres to) 24-26 mg Tablet Discontinued 1 {tbl} PO TWICE A DAY 60 30 November 15, 2023 12:00am December 07, 2023 2:22pm Completed/Discontinued Medications Medication Drug Class(es) Dates Sig (Normalized) Sig (Original) acetaminophen 650 mg rectal suppository (20 sources) Start: 01-05-2025 End: 02-02-2025 Start: 01-05-2025 End: 02-02-2025 Start: 01-05-2025 End: 02-02-2025 take 1 capsule by mouth once as needed Acetaminophen 325 mg capsule Discontinued 325 mg PO ONCE as needed January 05, 2025 12:00am February 02, 2025 1:37pm Start: 12-24-2024 End: 01-05-2025 Start: 02-14-2023 End: 03-12-2023 Start: 02-14-2023 End: 03-12-2023 Acetaminophen Discontinued 1 000 MG PO Q8H 0 February 13, 2023 11:00pm March 12, 2023 2:31pm Xmub-oex-kxvktyo. 1000 mg every 8 hourly for 1 week and then as needed. take 1 tablet by bernardino th every four hours Acetaminophen 325 MG tablet Take 1 tablet by mouth every 4 hours. 0 Active Aluminum-Magnesium Hydroxide 225-200 mg/5 mL suspension (6 sources) Start: 01-05-2025 End: 02-02-2025 take 1 mL by mouth every four hours as needed Aluminum-Magnesium Hydroxide 225-200 mg/5 mL suspension Discontinued 30 mL PO EVERY 4 HOURS NEEDED January 05, 2025 12:00am February 02, 2025 1:37pm Start: 01-05-2025 take 1 mL by mouth e very four hours as needed Aluminum-Magnesium Hydroxide 225-200 mg/5 mL suspension Active 30 mL PO EVERY 4 HOURS NEEDED January 05, 2025 12:00am amoxicillin 875 mg / clavula jennifer 125 mg oral tablet (20 sources) Penicillin-class Antibacterial Start: 02-14-2023 End: 03-12-2023 Start: 02-14-2023 End: 03-12-2023 Amoxicillin-Pot Clavulanate 875-125 mg tablet Discontinued 1 {tbl} PO TWICE A DAY 10 5 0 February 14, 2023 12:00am March 12, 2023 3:31pm Start: 02-14-2023 End: 03-12-2023 take 1 tablet by mouth twice daily Amoxicillin-Pot Clavulanate Discontinued 1 TABLET PO TWICE A DAY 10 5 February 13, 2023 11:00pm March 12, 2023 2:31pm apixaban 5 mg oral tablet (9 sources) Factor Xa Inhibitor Start: 12-24-2024 End: 02-14-2025 Ascorbic Svrk-Zjqfecyp-Cyz (Vitamin C Fizzy Drink) 1,000 mg powder effervescent in packet (11 sources) Start: 10-25-2023 End: 11-12-2023 Ascorbic Crcl-Vktsvcck-Nxh (Vitamin C Fizzy Drink) 1,000 mg powder effervescent in packet Discontinued NMA PO October 25, 2023 12:00am November 12, 2023 4:42pm bisacodyl 10 mg rectal suppository (8 sources) Stimulant Laxative Start: 01-05-2025 End: 02-02-2025 Start: 01-05-2025 End: 02-02-2025 Bisacodyl 10 mg suppository Discontinued 10 mg RC ONCE January 05, 2025 12:00am February 02, 2025 1:37pm docusate sodium 50 mg / dimitry osides, nursing home 8.6 mg oral tablet (20 sources) Start: 02-14-2023 End: 03-24-2023 Start: 02-14-2023 End: 03-24-2023 Sennosides-Docusate Sodium ( Stool Softener-Stimulant Laxat) 8.6-50 mg Tablet Discontinued 2 {tbl} PO TWICE A DAY 0 0 February 14, 2023 12:00am March 24, 2023 10:35am scheduled while taking pain meds. OTC enzalutamide 80 mg oral tabl et (20 sources) Androgen Receptor Inhibitor Start: 03-02-2023 End: 03-24-2023 Start: 03-02-2023 take 2 tablets by mo uth once daily Xtandi 80 MG tablet Take 160 mg by mouth daily. 0 03/02/2023 Active ergocalciferol 1.25 mg oral capsule (8 sources) Provitamin D2 Compound Start: 01-05-2025 End: 02-14-2025 furosemide 40 mg oral tablet (20 sources) Loop Diuretic Start: 11-15-2023 End: 01-25-2025 Start: 11-15-2023 End: 01-25-2025 Start: 10-08-2023 End: 11-15-2023 Start: 10-08-2023 End: 11-09-2023 take 1 tablet by mouth once daily Furosemide 20 mg tablet Discontinued 20 mg PO DAILY 30 1 November 01, 2023 4:43pm November 08, 2023 2:18pm glucose 0.4 mg/mg oral gel (8 sources) Start: 01-05-2025 End: 02-14-2025 Start: 01-05-2025 Dextrose (Gluc ose Gel) 40 % gel Active 10 g PO Q15M as needed January 05, 2025 12:00am until symptoms of low blood sugar are controlled guaiFENesin 20 mg/ml oral solution (8 sources) Start: 01-05-2025 End: 02-14-2025 JUXTA LITE (16 sources) Start: 03-24-2023 End: 12-06-2023 JUXTA LITE [...] (20 sources) Biguanide Start: 10-16-2021 End: 04-06-2022 Start: 12-13-2020 End: 12-10-2021 metFORMIN ER (GLUCOPHAGE [...] Take by mouth. Multivitamin (Daily Multi-Vitamin) tablet (20 sources) Start: 02-12-2023 End: 10-25-2023 Multivitamin (Daily [...] TABLET PO DAILY February 12, 2023 12:00am Lz-Haq-Fzjhu-I8-Dyebnrd-Uall in (Centrum Silver Men) 300-600-300 mcg tablet (20 sources) Start: 04-06-2022 End: 07-09-2022 Jn-Wca-Vicxx-V1-Symuaax-Nqsq in (Centrum Silver Men) 300-600-300 mcg tablet Discontinued 1 {tbl} PO DAILY April 06, 2022 1:00am July 09, 2022 3:51pm Start: 04-06-2022 End: 07-09-2022 take 300-600 tablets by mouth once daily Xi-Vph-Ayzgi-V4-Nphammq-Dueykk (Centrum Silver Men) 300-600-300 mcg tablet Discontinued 1 TABLET PO DAILY April 06, 2022 12:00am July 09, 2022 2:51pm Start: 04-06-2022 End: 07-09-2022 take 300-600 tablets by mouth once daily Eb-Sgp-Iotsd-K6-Bfvbjkh-Xdbiqv (Centrum Silver Men) 300-600-300 mcg tablet Discontinued 1 TABLET PO DAILY April 06, 2022 1:00am July 09, 2022 3:51pm oxyCODONE hydrochloride 5 mg oral tablet (20 sources) Opioid Agonist Start: 02-14-2023 End: 03-24-2023 Sennosides (Senna) 8.6 mg Tablet (7 sources) Start: 12-24-2024 End: 02-02-2025 take 1 tablet by mouth twice daily Sennosides (Senna) 8.6 mg Tablet Discontinued 8.6 mg PO TWICE A DAY 1 December 24, 2024 12:00am February 02, 2025 1:38pm Start: 12-24-2024 take 1 tablet by bernardino twice daily Sennosides (Senna) 8.6 mg Tablet Active 8.6 mg PO TWICE A DAY 1 December 24, 2024 12:00am sennosides, nursing home 8.6 mg oral tablet (4 sources) Start: 12-24-2024 End: 02-02-2025 take 1 tablet by mouth once madi y Senna 8.6 MG tablet Take 1 tablet by mouth daily. 0 Active spironolactone 25 mg oral tablet (20 sources) Aldosterone Antagonist Start: 11-23-2023 End: 06-29-2024 take 1 tablet by mouth at lunch Spironolactone 25 mg tablet Active 25 mg PO WITH LUNCH 90 90 June 29, 2024 10:48am Start: 11-15-2023 End: 06-29-2024 Start: 11-15-2023 End: 11-23-2023 Spironolactone 25 mg Tablet Discontinued 12.5 mg PO WITH LUNCH 15 30 November 15, 2023 12:00am November 23, 2023 9:08am Vitamin B Complex (B Complex-Vitamin B12) tablet (20 sources) Start: 04-06-2022 End: 02-12-2023 Vitamin B [...] 06, 2022 1:00am February 12, 2023 3:13pm (14 sources) Start: 01-05-2025 End: 02-02-2025 Start: 01-02-2025 Start: 10-25-2023 End: 11-12-2023 Start: 03-24-2023 End: 12-06-2023 Start: 02-12-2023 End: 10-25-2023 Start: 04-06-2022 End: 07-09-2022 Start: 04-06-2022 End: 02-12-2023 Problems Active Problems Problem Classification Problem Date Documented Date Episodic/Chronic Cancer of bone and connective tissue (20 sources) Malignant neoplasm of bone; Translations: [Malignant neoplasm of bone and articular cartilage, unspecified] Onset: 02-26-2023 02-17-2023 Chronic Cancer of prostate (20 sources) Malignant tumor of prostate; Translations: [Malignant neoplasm of prostate] Onset: 02-26-2023 02-24-2023 Chronic Cancer of prostate (4 sources) History of malignant neoplasm of prostate; Translations: [Personal history of malignant neoplasm of prostate] 02-14-2025 Episodic Cardiac dysrhythmias (20 sources) Cardiac arrhythmia; Translations: [Cardiac arrhythmia, unspecified] 03-24-2023 Chronic Cardiac dysrhythmias (14 sources) Bradycardia; Translations: [Bradycardia, unspecified] 04-26-2024 Episodic Conduction disorders (20 sources) Complete left bundle branch block; Translations: [Left bundle-branch block, unspecified] Onset: 03-30-2025 11-16-2023 Chronic Congestive heart failure; nonhypertensive (20 sources) Heart failure with reduced ejection fraction; Translations: [Unspecified systolic (congestive) heart failure] Onset: 02-06-2025 01-19-2024 Chronic Coronary atherosclerosis and other heart disease (20 sources) Non-obstructive atherosclerosis of coronary artery; Translations: [Atherosclerotic heart disease of [place] coronary artery without angina pectoris] Onset: 03-30-2025 09-13-2024 Chronic Diabetes mellitus without complication (20 sources) Type 2 diabetes mellitus; Translations: [Type 2 diabetes mellitus without complications] Onset: 02-14-2025 Chronic E Codes: Fall (20 sources) Fall; Translations: [Unspecified fall, initial encounter] 02-12-2023 Episodic Essential hypertension (20 sources) Hypertensive disorder; Translations: [Essential (primary) hypertension] Onset: 03-30-2025 01-20-2023 Chronic Fracture of neck of femur (hip) (20 sources) Closed fracture of neck of femur; Translations: [Fracture of unspecified part of neck of right femur, initial encounter for closed fracture] Onset: 01-17-2025 12-18-2024 Episodic Fracture of upper limb (20 sources) Closed fracture of humerus; Translations: [Unspecified fracture of shaft of humerus, left arm, initial encounter for closed fracture] 02-12-2023 Episodic Hyperplasia of prostate (20 sources) Benign prostatic hyperplasia; Translations: [Benign prostatic hyperplasia without lower urinary tract symptoms] 01-20-2023 Chronic Immunizations and screening for infectious disease (20 sources) Needs influenza immunization; Translations: [Encounter for immunization] 04-06-2022 Episodic Malaise and fatigue (20 sources) Asthenia; Translations: [Other malaise] Onset: 03-16-2025 11-16-2023 Episodic Nonspecific chest pain (1 source) Chest pain, unspecified; Translations: [Chest pain, unspecified] Onset: 01-15-2025 Episodic Other aftercare (10 sources) Long-term current use of diuretic; Translations: [Encounter for therapeutic drug level monitoring] 12-13-2024 Episodic Other and unspecified benign neoplasm (20 sources) Change in skin lesion; Translations: [Melanocytic nevi, unspecified] 11-27-2021 Episodic Other and unspecified benign neoplasm (8 sources) Melanocytic nevi, unspecified; Translations: [Benign neoplasm of skin, site unspecified] Episodic Other circulatory disease (15 sources) Disorder of carotid artery; Translations: [Disorder of arteries and arterioles, unspecified] 07-07-2023 Chronic Other circulatory disease (20 sources) Elevated blood pressure; Translations: [Elevated blood-pressure reading, without diagnosis of hypertension] 02-12-2023 Episodic Other circulatory disease (1 source) Elevated blood-pressure reading, without diagnosis of hypertension; Translations: [Elevated blood pressure reading without diagnosis of hypertension] Episodic Other circulatory disease (15 sources) Carotid bruit; Translations: [Other specified symptoms and signs involving the circulatory and respiratory systems] 07-07-2023 Episodic Other circulatory disease (2 sources) Other specified symptoms and signs involving the circulatory and respiratory systems; Translations: [Other symptoms involving cardiovascular system] 07-07-2023 Episodic Other connective tissue disease (20 sources) History of repair of hip joint; Translations: [Presence of right artificial hip joint] 12-20-2024 Chronic Other connective tissue disease (13 sources) History of hemiarthroplasty of right hip; Translations: [Presence of right artificial hip joint] 01-05-2025 Chronic Other connective tissue disease (2 sources) Presence of right artificial hip joint; Translations: [Presence of right artificial hip joint] Onset: 01-17-2025 Chronic Other diseases of veins and lymphatics (20 sources) Venous insufficiency of leg; Translations: [Venous insufficiency (chronic) (peripheral)] 03-24-2023 Episodic Other diseases of veins and lymphatics (7 sources) Venous insufficiency (chronic) (peripheral); Translations: [Venous (peripheral) insufficiency, unspecified] 03-24-2023 Episodic Other injuries and conditions due to external causes (20 sources) Injury of forearm; Translations: [Unspecified injury of left forearm, initial encounter] 02-12-2023 Episodic Other injuries and conditions due to external causes (7 sources) Unspecified injury of left forearm, initial encounter; Translations: [Elbow, forearm, and wrist injury] 02-12-2023 Episodic Other injuries and conditions due to external causes (13 sources) Foreign body in esophagus; Translations: [Unspecified foreign body in esophagus causing other injury, initial encounter] 06-11-2024 Episodic Other lower respiratory disease (13 sources) Dyspnea; Translations: [Dyspnea, unspecified] 11-16-2023 Episodic Other nutritional; endocrine; and metabolic disorders (20 sources) Unintentional weight loss; Translations: [Abnormal weight loss] 01-20-2023 Episodic Other nutritional; endocrine; and metabolic disorders (20 sources) H/O: diabetes mellitus; Translations: [Personal history [...] [Elevated prostate specific antigen [PSA]] 01-21-2023 Episodic Other skin disorders (4 sources) Mass of skin; Translations: [Localized swelling, mass and lump, unspecified] 02-15-2025 Episodic Pathological fracture (20 sources) Pathological fracture - upper arm; Translations: [Pathological fracture, unspecified humerus, initial encounter for fracture] Onset: 05-12-2023 02-14-2023 Episodic Maru-; endo-; and myocarditis; cardiomyopathy (except that caused by tuberculosis or sexually transmitted disease) (13 sources) Cardiomyopathy; Translations: [Cardiomyopathy, unspecified] 11-16-2023 Chronic Residual codes; unclassified (14 sources) Driving fitness status; Translations: [Other specified personal risk factors, not elsewhere classified] 04-26-2024 Episodic Residual codes; unclassified (13 sources) Bilateral lower limb edema; Translations: [Localized edema] 11-16-2023 Episodic Residual codes; unclassified (10 sources) Edema; Translations: [Edema, unspecified] 12-13-2024 Episodic [...] [Cellulitis of left upper limb] 02-12-2023 Episodic Unclassified (1 source) History of repair of hip joint Past or Other Problems Problem Classification Problem [...] Range Facility Absolute lymphocyte countOrd ered By: Carolina Mcgee on 03-22-2025 Lymphocytes Auto (Unsp spec) [#/Vol] 3.13 10*3/uL 0.83-4.51 [facility] Anion gap in Serum or Plasma Ordered By: Bob Snyder on 03-22-2025 Anion gap [Moles/Vol] 12 mmol/L 5-15 [facility] Automated lymphocyte count a s percentage of total leukocytesOrdered By: Carolina Mcgee on 03-22-2025 Lymphocytes/100 WBC Auto (Unsp spec) 50.2 % High [facility] BUN/creatinine ratioOrdered By: Bob Snyder on 03-22-2025 Urea nitrogen/Creatinine [Mass ratio] 22.7 mg/mg High 03-12 [facility] Basophil percentageOrdered B y: Carolina Mcgee on 10-30-2025 Basophils/100 WBC (Bld) 0.5 % 0-1 [facility] Bilirubin directOrdered By: Bob Snyder on 03-22-2025 Bilirubin.direct [Mass/Vol] 0.23 mg/dL 0.00-0.30 [facility] Bilirubin, Directon 03-22- 25 Bilirubin.direct [Mass/Vol] 0.23 mg/dL Normal 0.00-0.30 [facility] Comment on above: Performed By: #### L 500.4050, L500.4100, L501.4700 ####[facility] [address] [place], [address] Bilirubin, totalOrdered By: Bob Snyder on 03-22-2025 Bilirubin [Mass/Vol] 0.53 mg/dL 0.00-1.30 [facility] CBC W/Diff, Automatedon 02-23 Absolute Lymph 3.13 X10 3/uL Normal 0.83-4.51 [facility] Comment on above: Performed By: #### L 100.0100, L500.4050 ####[facility] [address] [place], [address] Absolute Neut 2.4 X10 3/uL Normal 2.0-7.7 [facility] Comment on above: Performed By: #### L 100.0100, L500.4050 ####[facility] [address] [place], [address] Basophils/100 WBC (Bld) 0.5 % Normal 0-1 [facility] Comment on above: Performed By: #### L 100.0100, L500.4050 ####[facility] [address] [place], [address] Eosinophils/100 WBC (Bld) 2.6 % Normal 0-5 [facility] Comment on above: Performed By: #### L 100.0100, L500.4050 ####[facility] [address] [place], [address] Erythrocyte distribution width (RBC) [Ratio] 14.0 % Normal 11.6-14.6 [facility] Comment on above: Performed By: #### L 100.0100, L500.4050 ####[facility] [address] [place], [address] Hematocrit (Bld) [Volume fraction] 36.8 % Low 40-54 [facility] Comment on above: Performed By: #### L 100.0100, L500.4050 ####[facility] [address] [place], [address] Hemoglobin (Bld) [Mass/Vol] 12.3 g/dL Low 13.0-16.5 [facility] Comment on above: Performed By: #### L 100.0100, L500.4050 ####[facility] [address] [place], [address] IG% 0.300 Normal 0.0-0.9 [facility] Comment on above: Result Comment: IG% - Immature Granulocytes (promyelocytes, myelocytes andmetamyelocytes) > 1% indicates that a LEFT SHIFT is Present. Performed By: #### L 100.0100, L500.4050 ####[facility] [address] [place], [address] Lymphocytes/100 WBC (Bld) 50.2 % High 19-41 [facility] Comment on above: Performed By: #### L 100.0100, L500.4050 ####[facility] [address] [place], [address] MCH (RBC) [Entitic mass] 34.8 pg High 27.0-32.0 [facility] Comment on above: Performed By: #### L 100.0100, L500.4050 ####[facility] [address] [place], [address] MCHC (RBC) [Mass/Vol] 33.4 g/dL Normal 32-36 [facility] Comment on above: Performed By: #### L 100.0100, L500.4050 ####[facility] [address] [place], [address] MCV (RBC) [Entitic vol] 104.2 fL High 80-94 [facility] Comment on above: Performed By: #### L 100.0100, L500.4050 ####[facility] [address] [place], [address] Monocytes/100 WBC (Bld) 8.2 % Normal 0-10 [facility] Comment on above: Performed By: #### L 100.0100, L500.4050 ####[facility] [address] [place], [address] Neutrophils/100 WBC (Bld) 38.2 % Low 47-70 [facility] Comment on above: Performed By: #### L 100.0100, L500.4050 ####[facility] [address] [place], [address] Nucleated RBC (Bld) [#/Vol] 0 10*3/uL Normal 0-5 [facility] Comment on above: Performed By: #### L 100.0100, L500.4050 ####[facility] [address] [place], [address] Platelet mean volume (Bld) [Entitic vol] 9.3 fL Normal 6.2-12.0 [facility] Comment on above: Performed By: #### L 100.0100, L500.4050 ####[facility] [address] [place], [address] Platelets (Bld) [#/Vol] 237 10*3/uL Normal 150-450 [facility] Comment on above: Performed By: #### L 100.0100, L500.4050 ####[facility] [address] [place], [address] RBC (Bld) [#/Vol] 3.53 10*6/uL Low 4.6-6.2 [facility] Comment on above: Performed By: #### L 100.0100, L500.4050 ####[facility] [address] [place], [address] RDW SD 53.3 fl High 35.1-43.9 [facility] Comment on above: Performed By: #### L 100.0100, L500.4050 ####[facility] [address] [place], [address] WBC (Bld) [#/Vol] 6.2 10*3/uL Normal 4.4-11.0 [facility] Comment on above: Performed By: #### L 100.0100, L500.4050 ####[facility] [address] [place], [address] Calculated very low density lipoprotein (VLDL) cholesterol measurementOrdered By: Bob Snyder on 03-22-2025 Calculated very low density lipoprotein (VLDL) cholesterol measurement 19 mg/dL 5-40 [facility] Carbon dioxide, total [Moles /volume] in Central venous bloodOrdered By: Bob Snyder on 03-22-2025 CO2 [Moles/Vol] 24.6 mmol/L 21.0-32.0 [facility] Chloride assayOrdered By: Lee Snyder on 03-22-2025 Chloride [Moles/Vol] 109 mmol/L High 98-108 [facility] Comprehensive Metabolic Prof ilon 03-22-2025 Albumin [Mass/Vol] 3.6 g/dL Normal 3.4-4.8 [facility] Comment on above: Performed By: #### L 500.4050, L500.4100, L501.4700 ####[facility] [address] [place], [address] Albumin/Globulin [Mass ratio] 1.2 {ratio} Normal 0.9-2.4 [facility] Comment on above: Performed By: #### L 500.4050, L500.4100, L501.4700 ####[facility] [address] [place], [address] ALK PHOS 65 U/L Normal 40-129 [facility] Comment on above: Performed By: #### L 500.4050, L500.4100, L501.4700 ####[facility] [address] [place], [address] ALT [Catalytic activity/Vol] 8 U/L Normal <=46 [facility] Comment on above: Performed By: #### L 500.4050, L500.4100, L501.4700 ####[facility] [address] [place], [address] AST [Catalytic activity/Vol] 17 U/L Normal <=37 [facility] Comment on above: Performed By: #### L 500.4050, L500.4100, L501.4700 ####[facility] [address] [place], [address] Bilirubin [Mass/Vol] 0.53 mg/dL Normal 0.00-1.30 [facility] Comment on above: Performed By: #### L 500.4050, L500.4100, L501.4700 ####[facility] [address] [place], [address] BUN/CRE 22.7 RATIO High 10-20 [facility] Comment on above: Performed By: #### L 500.4050, L500.4100, L501.4700 ####[facility] [address] [place], [address] Calcium [Mass/Vol] 9.3 mg/dL Normal 7.6-11.0 [facility] Comment on above: Performed By: #### L 500.4050, L500.4100, L501.4700 ####[facility] [address] [place], [address] Chloride [Moles/Vol] 109 mmol/L High 98-108 [facility] Comment on above: Performed By: #### L 500.4050, L500.4100, L501.4700 ####[facility] [address] [place], [address] CO2 [Moles/Vol] 24.6 mmol/L Normal 21.0-32.0 [facility] Comment on above: Performed By: #### L 500.4050, L500.4100, L501.4700 ####[facility] [address] [place], [address] Creatinine [Mass/Vol] 1.24 mg/dL High 0.70-1.20 [facility] Comment on above: Performed By: #### L 500.4050, L500.4100, L501.4700 ####[facility] [address] [place], [address] ECRCL 43.34 ml/min Low 50-250 [facility] Comment on above: Performed By: #### L 500.4050, L500.4100, L501.4700 ####[facility] [address] [place], [address] GAP 12 Normal 5-15 [facility] Comment on above: Performed By: #### L 500.4050, L500.4100, L501.4700 ####[facility] [address] [place], [address] GFR/1.73 sq M.predicted among non-blacks MDRD (S/P/Bld) [Vol rate/Area] 56 mL/min/{1.73_m2} Low >60 [facility] Comment on above: Result Comment: mL/m in/1.73m2 CKD-EPI Creatinine Equation (2020) Performed By: #### L 500.4050, L500.4100, L501.4700 ####[facility] [address] [place], [address] Globulin (S) [Mass/Vol] 3.1 g/dL Normal 2.2-4.2 [facility] Comment on above: Performed By: #### L 500.4050, L500.4100, L501.4700 ####[facility] [address] [place], [address] Glucose [Mass/Vol] 106 mg/dL High 70-99 [facility] Comment on above: Performed By: #### L 500.4050, L500.4100, L501.4700 ####[facility] [address] [place], [address] Potassium [Moles/Vol] 4.0 mmol/L Normal 3.3-5.1 [facility] Comment on above: Performed By: #### L 500.4050, L500.4100, L501.4700 ####[facility] [address] [place], [address] Sodium [Moles/Vol] 146 mmol/L High 133-145 [facility] Comment on above: Performed By: #### L 500.4050, L500.4100, L501.4700 ####[facility] [address] [place], [address] T PROT 6.7 g/dL Normal 5.9-8.4 [facility] Comment on above: Performed By: #### L 500.4050, L500.4100, L501.4700 ####[facility] [address] [place], [address] Urea nitrogen [Mass/Vol] 28 mg/dL High 4-19 [facility] Comment on above: Performed By: #### L 500.4050, L500.4100, L501.4700 ####[facility] [address] [place], [address] ALB Normal 3.4-4.8 [facility] Comment on above: Result Comment: WRON G TEST Performed By: #### L 100.0100, L500.4050 ####[facility] [address] [place], [address] ALK PHOS Normal 40-129 [facility] Comment on above: Result Comment: WRON G TEST Performed By: #### L 100.0100, L500.4050 ####[facility] [address] [place], [address] ALT Normal <=46 [facility] Comment on above: Result Comment: WRON G TEST Performed By: #### L 100.0100, L500.4050 ####[facility] [address] [place], [address] AST Normal <=37 [facility] Comment on above: Result Comment: WRON G TEST Performed By: #### L 100.0100, L500.4050 ####[facility] [address] [place], [address] BUN Normal 4-19 [facility] Comment on above: Result Comment: WRON G TEST Performed By: #### L 100.0100, L500.4050 ####[facility] [address] [place], [address] BUN/CRE Normal 10-20 [facility] Comment on above: Result Comment: WRON G TEST Performed By: #### L 100.0100, L500.4050 ####[facility] [address] [place], [address] Calcium Normal 7.6-11.0 [facility] Comment on above: Result Comment: WRON G TEST Performed By: #### L 100.0100, L500.4050 ####[facility] [address] [place], [address] CL Normal 98-108 [facility] Comment on above: Result Comment: WRON G TEST Performed By: #### L 100.0100, L500.4050 ####[facility] [address] [place], [address] CO2 Normal 21.0-32.0 [facility] Comment on above: Result Comment: WRON G TEST Performed By: #### L 100.0100, L500.4050 ####[facility] [address] [place], [address] CREAT,SERUM Normal 0.70-1.20 [facility] Comment on above: Result Comment: WRON G TEST Performed By: #### L 100.0100, L500.4050 ####[facility] [address] [place], [address] eGFR Normal >60 [facility] Comment on above: Result Comment: WRON G TEST Performed By: #### L 100.0100, L500.4050 ####[facility] [address] [place], [address] GAP Normal 5-15 [facility] Comment on above: Result Comment: WRON G TEST Performed By: #### L 100.0100, L500.4050 ####[facility] [address] [place], [address] GLU Normal 70-99 [facility] Comment on above: Result Comment: WRON G TEST Performed By: #### L 100.0100, L500.4050 ####[facility] [address] [place], [address] Potassium Normal 3.3-5.1 [facility] Comment on above: Result Comment: WRON G TEST Performed By: #### L 100.0100, L500.4050 ####[facility] [address] [place], [address] T BILI Normal 0.00-1.30 [facility] Comment on above: Result Comment: WRON G TEST Performed By: #### L 100.0100, L500.4050 ####[facility] [address] [place], [address] T PROT Normal 5.9-8.4 [facility] Comment on above: Result Comment: WRON G TEST Performed By: #### L 100.0100, L500.4050 ####[facility] [address] [place], [address] Comprehensive Metabolic Profil Normal 133-145 [facility] Comment on above: Result Comment: WRON G TEST Performed By: #### L 100.0100, L500.4050 ####[facility] [address] [place], [address] Eosinophil percentageOrdered By: Carolina Mcgee on 03-22-2025 Eosinophils/100 WBC (Bld) 2.6 % 0-5 [facility] Erythrocyte distribution wid th ratioOrdered By: Carolina Mcgee on 03-22-2025 Erythrocyte distribution width (RBC) [Ratio] 14.0 % 11.6-14.6 [facility] Erythrocyte distribution wid th standard deviationOrdered By: Carolina Mcgee on 03-22-2025 Erythrocyte distribution width (RBC) [Ratio] 53.3 fl High 35.1-43.9 [facility] Glomerular filtration rate ( GFR) estimation/1.73 sq m using serum, plasma, or whole bOrdered By: Bob Snyder on 03-22-2025 GFR/1.73 sq M.predicted among non-blacks MDRD (S/P/Bld) [Vol rate/Area] 56 mL/min/{1.73_m2} Low >60 [facility] Hematocrit Auto (Bld) [Volum e fraction]Ordered By: Carolina Mcgee on 03-22-2025 Hematocrit (Bld) [Volume fraction] 36.8 % Low 40-54 [facility] Hemoglobin measurementOrdere d By: Carolina Mcgee on 03-22-2025 Hemoglobin (Bld) [Mass/Vol] 12.3 g/dL Low 13.0-16.5 [facility] Immature granulocytes/100 WB C Auto (Bld)Ordered By: Carolina Mcgee on 03-22-2025 Immature granulocytes/100 WBC (Bld) 0.300 % 0.0-0.9 [facility] LDL calc ser/plasOrdered By: Bob Snyder on 03-22-2025 Cholesterol in LDL [Mass/Vol] 64 mg/dL [facility] Lipid Profileon 03-22-2025 CHOL:HDL 2.26 Normal [facility] Comment on above: Performed By: #### L 500.4050, L500.4100, L501.4700 ####[facility] [address] [facility] [place], [place], [phone] Cholesterol [Mass/Vol] 146 mg/dL Normal <=200 [facility] Comment on above: Result Comment: Chol esterol level, Desirable <200 mg/dLBorderline high cholesterol 200-239 mg/dLHigh cholesterol >=240 mg/dLRecommendations of the NCEP Adult Treatment Panel for thefollowing risk-cutoff thresholds for the [place] [employer]. Performed By: #### L 500.4050, L500.4100, L501.4700 ####[facility] [address] [place], [address] Cholesterol in HDL [Mass/Vol] 65 mg/dL Normal [facility] Comment on above: Result Comment: Kelly onal Cholesterol Education Program (NCEP) guidelines:<40 mg/dL: Low HDL-cholesterol (major risk factor for CHD)>= 60 mg/dL: High HDL-cholesterol (negative risk factor forCHD)HDL-cholesterol is affected by a number of factors, e.g.smoking, exercise, hormones, sex and age. Performed By: #### L 500.4050, L500.4100, L501.4700 ####[facility] [address] [place], [address] Cholesterol in LDL [Mass/Vol] 64 mg/dL Normal [facility] Comment on above: Result Comment: Bord samhhu=140-771 mg/dL Higher Ftkj=101 mg/dL or greaterSampson Equation 2020 for LDL-C Performed By: #### L 500.4050, L500.4100, L501.4700 ####[facility] [address] [place], [address] Cholesterol in VLDL [Mass/Vol] 19 mg/dL Normal 5-40 [facility] Comment on above: Performed By: #### L 500.4050, L500.4100, L501.4700 ####[facility] [address] [place], [address] Triglyceride [Mass/Vol] 95 mg/dL Normal [facility] Comment on above: Result Comment: The drugs N-Acetylcysteine and Metamizole may falselydepress this assay.Normal range: <150 mg/dLBorderline High: 150-199 mg/dLHigh: 200-499 mg/dLVery High: >500 mg/dL Performed By: #### L 500.4050, L500.4100, L501.4700 ####[facility] [address] [place], [address] MCV (mean corpuscular volume ) determinationOrdered By: Carolina Mcgee on 03-22-2025 MCV (RBC) [Entitic vol] 104.2 fL High 80-94 [facility] Mean corpuscular hemoglobin (MCH) determinationOrdered By: Carolina Mcgee on 03-22-2025 MCH (RBC) [Entitic mass] 34.8 pg High 27.0-32.0 [facility] Monocyte percentageOrdered B y: Carolina Mcgee on 03-22-2025 Monocytes/100 WBC (Bld) 8.2 % 0-10 [facility] Neutrophil percentageOrdered By: Carolina Mcgee on 03-22-2025 Neutrophils/100 WBC (Bld) 38.2 % Low 47-70 [facility] No Panel InformationOrdered By: Bob Snyder on 03-22-2025 17 U/L <38 [facility] Oncology Visit Reporton 02-23 Oncology Visit Report Normal [facility] Platelet countOrdered By: Sánchez Mcgee on 03-22-2025 Platelets (Bld) [#/Vol] 237 10*3/uL 150-450 [facility] Potassium measurement (mass/ volume)Ordered By: Bob Snyder on 03-22-2025 Potassium (Unsp spec) [Mass/Vol] 4.0 mmol/L 3.3-5.1 [facility] RBC Auto (Bld) [#/Vol]Ordere d By: Carolina Mcgee on 03-22-2025 RBC (Bld) [#/Vol] 3.53 10*6/uL Low 4.6-6.2 [facility] Serum creatinine measurement (mass/volume)Ordered By: Bob Snyder on 03-22-2025 Creatinine [Mass/Vol] 1.24 mg/dL High 0.70-1.20 [facility] Serum globulin measurementOr dered By: Bob Snyder on 03-22-2025 Globulin (S) [Mass/Vol] 3.1 g/dL 2.2-4.2 [facility] Serum glucose measurement (m ass/volume)Ordered By: Bob Snyder on 03-22-2025 Glucose [Mass/Vol] 106 mg/dL High 70-99 [facility] Serum or plasma alanine rausch otransferase (ALT) measurementOrdered By: Bob Snyder on 03-22-2025 ALT [Catalytic activity/Vol] 8 U/L <47 [facility] Serum or plasma albumin patricia urement (mass/volume)Ordered By: Bob Snyder on 03-22-2025 Albumin [Mass/Vol] 3.6 g/dL 3.4-4.8 [facility] Serum or plasma albumin/glob ulin mass ratioOrdered By: Bob Snyder on 03-22-2025 Albumin/Globulin [Mass ratio] 1.2 {ratio} 0.9-2.4 [facility] Serum or plasma alkaline martín sphatase measurementOrdered By: Bob Snyder on 03-22-2025 ALP [Catalytic activity/Vol] 65 U/L 40-129 [facility] Serum or plasma calcium patricia urement (mass/volume)Ordered By: Bob Snyder on 03-22-2025 Calcium [Mass/Vol] 9.3 mg/dL 7.6-11.0 [facility] Serum or plasma cholesterol in HDL measurement (mass/volume)Ordered By: Bob Snyder on 03-22-2025 Cholesterol in HDL [Mass/Vol] 65 mg/dL >40 [facility] Serum or plasma cholesterol measurement (mass/volume)Ordered By: Bob Snyder on 03-22-2025 Cholesterol [Mass/Vol] 146 mg/dL <201 [facility] Serum or plasma urea nitroge n measurement (mass/volume)Ordered By: Bob Snyder on 03-22-2025 Urea nitrogen [Mass/Vol] 28 mg/dL High 4-19 [facility] Sodium levelOrdered By: Dominique Snyder on 03-22-2025 Sodium [Moles/Vol] 146 mmol/L High 133-145 [facility] Total proteinOrdered By: Ricky Snyder on 03-22-2025 Protein [Mass/Vol] 6.7 g/dL 5.9-8.4 [facility] White blood cell (WBC) count Ordered By: Carolina Mcgee on 03-22-2025 WBC (Bld) [#/Vol] 6.2 10*3/uL 4.4-11.0 [facility] HIP, UNI W/ Pelvis 2-3 Views on 03-16-2025 HIP, UNI W/ Pelvis 2-3 Views Normal [facility] Orthopedic Visit Reporton Orthopedic Visit Report Normal [facility] Cardiology Visit Reporton Cardiology Visit Report Normal [facility] Internal Medicine Office Vis iton 02-14-2025 Internal Medicine Office Visit Normal [facility] No Panel InformationOrdered By: Dyan Kyle on 02-14-2025 5.4 % 4.2-6.3 [facility] HIP, UNI W/ Pelvis 2-3 Views on 02-02-2025 HIP, UNI W/ Pelvis 2-3 Views Normal [facility] Orthopedic Visit Reporton Orthopedic Visit Report Normal [facility] Anion gap in Serum or Plasma Ordered By: Dyan Kyle on 01-17-2025 Anion gap [Moles/Vol] 13 mmol/L 5-15 [facility] BUN/creatinine ratioOrdered By: Dyan Kyle on 01-17-2025 Urea nitrogen/Creatinine [Mass ratio] 23.7 mg/mg High - [facility] Basic Metabolic Profile (BMP )on 01-17-2025 BUN/CRE 23.7 RATIO High 03-12 [facility] Comment on above: Performed By: #### L 500.2500 ####[facility] [address] [place], [address] Calcium [Mass/Vol] 9.3 mg/dL Normal 7.6-11.0 [facility] Comment on above: Performed By: #### L 500.2500 ####[facility] [address] [place], [address] Chloride [Moles/Vol] 106 mmol/L Normal 98-[facility] Comment on above: Performed By: #### L 500.2500 ####[facility] [address] [place], [address] CO2 [Moles/Vol] 23.7 mmol/L Normal 21.0-32.0 [facility] Comment on above: Performed By: #### L 500.2500 ####[facility] [address] [place], [address] Creatinine [Mass/Vol] 1.23 mg/dL High 0.70-1.20 [facility] Comment on above: Performed By: #### L 500.2500 ####[facility] [address] [place], [address] GAP 13 Normal 5-15 [facility] Comment on above: Performed By: #### L 500.2500 ####[facility] [address] [place], [address] GFR/1.73 sq M.predicted among non-blacks MDRD (S/P/Bld) [Vol rate/Area] 57 mL/min/{1.73_m2} Low >60 [facility] Comment on above: Result Comment: mL/m in/1.73m2 CKD-EPI Creatinine Equation (2020) Performed By: #### L 500.2500 ####[facility] [address] [place], [address] Glucose [Mass/Vol] 153 mg/dL High 70-99 [facility] Comment on above: Performed By: #### L 500.2500 ####[facility] [address] [place], [address] Potassium [Moles/Vol] 4.2 mmol/L Normal 3.3-5.1 [facility] Comment on above: Performed By: #### L 500.2500 ####[facility] [address] [place], [address] Sodium [Moles/Vol] 143 mmol/L Normal 133-145 [facility] Comment on above: Performed By: #### L 500.2500 ####[facility] [address] [place], [address] Urea nitrogen [Mass/Vol] 29 mg/dL High 4-19 [facility] Comment on above: Performed By: #### L 500.2500 ####[facility] [address] [place], [address] Carbon dioxide, total [Moles /volume] in Central venous bloodOrdered By: Dyan Kyle on 01-17-2025 CO2 [Moles/Vol] 23.7 mmol/L 21.0-32.0 [facility] Chloride assayOrdered By: Pollo Kyle on 01-17-2025 Chloride [Moles/Vol] 106 mmol/L 98-108 [facility] Glomerular filtration rate ( GFR) estimation/1.73 sq m using serum, plasma, or whole bOrdered By: vania Sunjuliandayanara on 01-17-2025 GFR/1.73 sq M.predicted among non-blacks MDRD (S/P/Bld) [Vol rate/Area] 57 mL/min/{1.73_m2} Low >60 [facility] Comment on above: mL/min/1.73m2 CKD-EP I Creatinine Equation (2020) Potassium measurement (mass/ volume)Ordered By: Dyan Kyle on 01-17-2025 Potassium (Unsp spec) [Mass/Vol] 4.2 mmol/L 3.3-5.1 [facility] Serum creatinine measurement (mass/volume)Ordered By: Dyan Kyle on 01-17-2025 Creatinine [Mass/Vol] 1.23 mg/dL High 0.70-1.20 [facility] Serum glucose measurement (m ass/volume)Ordered By: Dyan Kyle on 01-17-2025 Glucose [Mass/Vol] 153 mg/dL High 70-99 [facility] Serum or plasma calcium patricia urement (mass/volume)Ordered By: Dyan Sunjuliandayanara on 01-17-2025 Calcium [Mass/Vol] 9.3 mg/dL 7.6-11.0 [facility] Serum or plasma urea nitroge n measurement (mass/volume)Ordered By: Dyan Kyle on 01-17-2025 Urea nitrogen [Mass/Vol] 29 mg/dL High 4-19 [facility] Sodium levelOrdered By: Liane romeromiguelina Dinojuliandayanara on 01-17-2025 Sodium [Moles/Vol] 143 mmol/L 133-145 [facility] Internal Medicine Office Vis rissan 01-15-2025 Internal Medicine Office Visit Normal [facility] Absolute lymphocyte countOrd ered By: Arin Weston on 01-09-2025 Lymphocytes Auto (Unsp spec) [#/Vol] 1.57 10*3/uL 0.83-4.51 [facility] Absolute neutrophil countOrd ered By: Arin Weston on 01-09-2025 Neutrophils (Bld) [#/Vol] 2.0 10*3/uL 2.0-7.7 [facility] Anion gap in Serum or Plasma Ordered By: Arin Weston on 01-09-2025 Anion gap [Moles/Vol] 12 mmol/L 5- [facility] Automated lymphocyte count a s percentage of total leukocytesOrdered By: Arin Weston on 01-09-2025 Lymphocytes/100 WBC Auto (Unsp spec) 38.1 % [facility] BUN/creatinine ratioOrdered By: Arinpierre Weston on 01-09-2025 Urea nitrogen/Creatinine [Mass ratio] 28.9 mg/mg High - [facility] Basophil percentageOrdered B y: Arin Weston on 01-09-2025 Basophils/100 WBC (Bld) 1.2 % High 0-1 [facility] Bilirubin, totalOrdered By: Arin Weston on 01-09-2025 Bilirubin [Mass/Vol] 0.45 mg/dL 0.00-1.30 [facility] CBC W/Diff, Automatedon 12-22 Absolute Lymph 1.57 X10 3/uL Normal 0.83-4.51 [facility] Comment on above: Order Comment: 210.1 Performed By: #### L 501.5200, L500.4050, L100.0100 ####[facility] [address] [place], [address] Absolute Neut 2.0 X10 3/uL Normal 2.0-7.7 [facility] Comment on above: Order Comment: 210.1 Performed By: #### L 501.5200, L500.4050, L100.0100 ####[facility] [address] [place], [address] Basophils/100 WBC (Bld) 1.2 % High 0-1 [facility] Comment on above: Order Comment: 210.1 Performed By: #### L 501.5200, L500.4050, L100.0100 ####[facility] [address] [place], [address] Eosinophils/100 WBC (Bld) 2.4 % Normal 0-5 [facility] Comment on above: Order Comment: 210.1 Performed By: #### L 501.5200, L500.4050, L100.0100 ####[facility] [address] [place], [address] Erythrocyte distribution width (RBC) [Ratio] 14.6 % Normal 11.6-14.6 [facility] Comment on above: Order Comment: 210.1 Performed By: #### L 501.5200, L500.4050, L100.0100 ####[facility] [address] [place], [address] Hematocrit (Bld) [Volume fraction] 32.8 % Low 40-54 [facility] Comment on above: Order Comment: 210.1 Performed By: #### L 501.5200, L500.4050, L100.0100 ####[facility] [address] [place], [address] Hemoglobin (Bld) [Mass/Vol] 10.6 g/dL Low 13.0-16.5 [facility] Comment on above: Order Comment: 210.1 Performed By: #### L 501.5200, L500.4050, L100.0100 ####[facility] [address] [place], [address] IG% 0.700 Normal 0.0-0.9 [facility] Comment on above: Order Comment: 210.1 Result Comment: IG% - Immature Granulocytes (promyelocytes, myelocytes andmetamyelocytes) > 1% indicates that a LEFT SHIFT is Present. Performed By: #### L 501.5200, L500.4050, L100.0100 ####[facility] [address] [place], [address] Lymphocytes/100 WBC (Bld) 38.1 % Normal 19-41 [facility] Comment on above: Order Comment: 210.1 Performed By: #### L 501.5200, L500.4050, L100.0100 ####[facility] [address] [place], [address] MCH (RBC) [Entitic mass] 35.3 pg High 27.0-32.0 [facility] Comment on above: Order Comment: 210.1 Performed By: #### L 501.5200, L500.4050, L100.0100 ####[facility] [address] [place], [address] MCHC (RBC) [Mass/Vol] 32.3 g/dL Normal 32-36 [facility] Comment on above: Order Comment: 210.1 Performed By: #### L 501.5200, L500.4050, L100.0100 ####[facility] [address] [place], [address] MCV (RBC) [Entitic vol] 109.3 fL High 80-94 [facility] Comment on above: Order Comment: 210.1 Performed By: #### L 501.5200, L500.4050, L100.0100 ####[facility] [address] [place], [address] Monocytes/100 WBC (Bld) 9.2 % Normal 0-10 [facility] Comment on above: Order Comment: 210.1 Performed By: #### L 501.5200, L500.4050, L100.0100 ####[facility] [address] [place], [address] Neutrophils/100 WBC (Bld) 48.4 % Normal 47-70 [facility] Comment on above: Order Comment: 210.1 Performed By: #### L 501.5200, L500.4050, L100.0100 ####[facility] [address] [place], [address] Nucleated RBC (Bld) [#/Vol] 0 10*3/uL Normal 0-5 [facility] Comment on above: Order Comment: 210.1 Performed By: #### L 501.5200, L500.4050, L100.0100 ####[facility] [address] [place], [address] Platelet mean volume (Bld) [Entitic vol] 9.8 fL Normal 6.2-12.0 [facility] Comment on above: Order Comment: 210.1 Performed By: #### L 501.5200, L500.4050, L100.0100 ####[facility] [address] [place], [address] Platelets (Bld) [#/Vol] 273 10*3/uL Normal 150-450 [facility] Comment on above: Order Comment: 210.1 Performed By: #### L 501.5200, L500.4050, L100.0100 ####[facility] [address] [place], [address] RBC (Bld) [#/Vol] 3.00 10*6/uL Low 4.6-6.2 [facility] Comment on above: Order Comment: 210.1 Performed By: #### L 501.5200, L500.4050, L100.0100 ####[facility] [address] [place], [address] RDW SD 58.7 fl High 35.1-43.9 [facility] Comment on above: Order Comment: 210.1 Performed By: #### L 501.5200, L500.4050, L100.0100 ####[facility] [address] [place], [address] WBC (Bld) [#/Vol] 4.1 10*3/uL Low 4.4-11.0 [facility] Comment on above: Order Comment: 210.1 Performed By: #### L 501.5200, L500.4050, L100.0100 ####[facility] [address] [place], [address] Carbon dioxide, total [Moles /volume] in Central venous bloodOrdered By: Arin Weston on 01-09-2025 CO2 [Moles/Vol] 23.1 mmol/L 21.0-32.0 [facility] Chloride assayOrdered By: Lebron Weston on 01-09-2025 Chloride [Moles/Vol] 111 mmol/L High 98-108 [facility] Comprehensive Metabolic Prof ilon 01-09-2025 Albumin [Mass/Vol] 3.3 g/dL Low 3.4-4.8 [facility] Comment on above: Order Comment: 210.1 Performed By: #### L 501.5200, L500.4050, L100.0100 ####[facility] [address] [place], [address] Albumin/Globulin [Mass ratio] 1.1 {ratio} Normal 0.9-2.4 [facility] Comment on above: Order Comment: 210.1 Performed By: #### L 501.5200, L500.4050, L100.0100 ####[facility] [address] [place], [address] ALK PHOS 73 U/L Normal 40-129 [facility] Comment on above: Order Comment: 210.1 Performed By: #### L 501.5200, L500.4050, L100.0100 ####[facility] [address] [place], [address] ALT [Catalytic activity/Vol] 6 U/L Normal <=46 [facility] Comment on above: Order Comment: 210.1 Performed By: #### L 501.5200, L500.4050, L100.0100 ####[facility] [address] [place], [address] AST [Catalytic activity/Vol] 17 U/L Normal <=37 [facility] Comment on above: Order Comment: 210.1 Performed By: #### L 501.5200, L500.4050, L100.0100 ####[facility] [address] [place], [address] Bilirubin [Mass/Vol] 0.45 mg/dL Normal 0.00-1.30 [facility] Comment on above: Order Comment: 210.1 Performed By: #### L 501.5200, L500.4050, L100.0100 ####[facility] [address] [place], [address] BUN/CRE 28.9 RATIO High 10-20 [facility] Comment on above: Order Comment: 210.1 Performed By: #### L 501.5200, L500.4050, L100.0100 ####[facility] [address] [place], [address] Calcium [Mass/Vol] 8.6 mg/dL Normal 7.6-11.0 [facility] Comment on above: Order Comment: 210.1 Performed By: #### L 501.5200, L500.4050, L100.0100 ####[facility] [address] [place], [address] Chloride [Moles/Vol] 111 mmol/L High 98-108 [facility] Comment on above: Order Comment: 210.1 Performed By: #### L 501.5200, L500.4050, L100.0100 ####[facility] [address] [place], [address] CO2 [Moles/Vol] 23.1 mmol/L Normal 21.0-32.0 [facility] Comment on above: Order Comment: 210.1 Performed By: #### L 501.5200, L500.4050, L100.0100 ####[facility] [address] [place], [address] Creatinine [Mass/Vol] 1.10 mg/dL Normal 0.70-1.20 [facility] Comment on above: Order Comment: 210.1 Performed By: #### L 501.5200, L500.4050, L100.0100 ####[facility] [address] [place], [address] GAP 12 Normal 5-15 [facility] Comment on above: Order Comment: 210.1 Performed By: #### L 501.5200, L500.4050, L100.0100 ####[facility] [address] [place], [address] GFR/1.73 sq M.predicted among non-blacks MDRD (S/P/Bld) [Vol rate/Area] 65 mL/min/{1.73_m2} Normal >60 [facility] Comment on above: Order Comment: 210.1 Result Comment: mL/m in/1.73m2 CKD-EPI Creatinine Equation (2020) Performed By: #### L 501.5200, L500.4050, L100.0100 ####[facility] [address] [place], [address] Globulin (S) [Mass/Vol] 3.0 g/dL Normal 2.2-4.2 [facility] Comment on above: Order Comment: 210.1 Performed By: #### L 501.5200, L500.4050, L100.0100 ####[facility] [address] [place], [address] Glucose [Mass/Vol] 89 mg/dL Normal 70-99 [facility] Comment on above: Order Comment: 210.1 Performed By: #### L 501.5200, L500.4050, L100.0100 ####[facility] [address] [place], [address] Potassium [Moles/Vol] 3.7 mmol/L Normal 3.3-5.1 [facility] Comment on above: Order Comment: 210.1 Performed By: #### L 501.5200, L500.4050, L100.0100 ####[facility] [address] [place], [address] Sodium [Moles/Vol] 146 mmol/L High 133-145 [facility] Comment on above: Order Comment: 210.1 Performed By: #### L 501.5200, L500.4050, L100.0100 ####[facility] [address] [place], [address] T PROT 6.3 g/dL Normal 5.9-8.4 [facility] Comment on above: Order Comment: 210.1 Performed By: #### L 501.5200, L500.4050, L100.0100 ####[facility] [address] [place], [address] Urea nitrogen [Mass/Vol] 32 mg/dL High 4-19 [facility] Comment on above: Order Comment: 210.1 Performed By: #### L 501.5200, L500.4050, L100.0100 ####[facility] [address] [place], [address] Eosinophil percentageOrdered By: Arin Weston on 01-09-2025 Eosinophils/100 WBC (Bld) 2.4 % 0-5 [facility] Erythrocyte distribution wid th ratioOrdered By: Arin Weston on 01-09-2025 Erythrocyte distribution width (RBC) [Ratio] 14.6 % 11.6-14.6 [facility] Erythrocyte distribution wid th standard deviationOrdered By: Arin Weston on 01-09-2025 Erythrocyte distribution width (RBC) [Ratio] 58.7 fl High 35.1-43.9 [facility] Glomerular filtration rate ( GFR) estimation/1.73 sq m using serum, plasma, or whole bOrdered By: Arin Weston on 01-09-2025 GFR/1.73 sq M.predicted among non-blacks MDRD (S/P/Bld) [Vol rate/Area] 65 mL/min/{1.73_m2} >60 [facility] Comment on above: mL/min/1.73m2 CKD-EP I Creatinine Equation (2020) Hematocrit Auto (Bld) [Volum e fraction]Ordered By: Arin Weston on 01-09-2025 Hematocrit (Bld) [Volume fraction] 32.8 % Low 40-54 [facility] Hemoglobin measurementOrdere d By: Arin Weston on 01-09-2025 Hemoglobin (Bld) [Mass/Vol] 10.6 g/dL Low 13.0-16.5 [facility] Immature granulocytes/100 WB C Auto (Bld)Ordered By: Arin Weston on 01-09-2025 Immature granulocytes/100 WBC (Bld) 0.700 % 0.0-0.9 [facility] Comment on above: IG% - Immature Granu locytes (promyelocytes, myelocytes and metamyelocytes) > 1% indicates that a LEFT SHIFT is Present. Laboratory - Chemistry and C hemistry - challengeOrdered By: Arin Weston on 01-09-2025 AST [Catalytic activity/Vol] 17 U/L <38 [facility] MCV (mean corpuscular volume ) determinationOrdered By: Arin Weston on 01-09-2025 MCV (RBC) [Entitic vol] 109.3 fL High 80-94 [facility] Magnesiumon 01-09-2025 Magnesium [Mass/Vol] 2.6 mg/dL High 1.5-2.2 [facility] Comment on above: Order Comment: 210.1 Performed By: #### L 501.5200, L500.4050, L100.0100 ####[facility] [address] [place], [address] Magnesium measurement (mass/ volume)Ordered By: Arin Weston on 01-09-2025 Magnesium (Unsp spec) [Mass/Vol] 2.6 mg/dL High 1.5-2.2 [facility] Mean corpuscular hemoglobin (MCH) determinationOrdered By: Arin Weston on 01-09-2025 MCH (RBC) [Entitic mass] 35.3 pg High 27.0-32.0 [facility] Mean corpuscular hemoglobin concentration (MCHC) determinationOrdered By: Arin Weston on 01-09-2025 MCHC (RBC) [Mass/Vol] 32.3 g/dL 32-36 [facility] Mean platelet volume determi nationOrdered By: Arin Weston on 01-09-2025 Platelet mean volume (Bld) [Entitic vol] 9.8 fL 6.2-12.0 [facility] Monocyte percentageOrdered B y: Arin Weston on 01-09-2025 Monocytes/100 WBC (Bld) 9.2 % 0-10 [facility] Neutrophil percentageOrdered By: Arin Weston on 01-09-2025 Neutrophils/100 WBC (Bld) 48.4 % 47-70 [facility] No Panel InformationOrdered By: Arin Weston on 01-09-2025 17 U/L <38 [facility] Nucleated red blood cell per centageOrdered By: Arin Weston on 01-09-2025 Nucleated RBC/100 WBC (Bld) [Ratio] 0 % 0-5 [facility] Platelet countOrdered By: Lebron Weston on 01-09-2025 Platelets (Bld) [#/Vol] 273 10*3/uL 150-450 [facility] Potassium measurement (mass/ volume)Ordered By: Arin Weston on 01-09-2025 Potassium (Unsp spec) [Mass/Vol] 3.7 mmol/L 3.3-5.1 [facility] RBC Auto (Bld) [#/Vol]Ordere d By: Arin Weston on 01-09-2025 RBC (Bld) [#/Vol] 3.00 10*6/uL Low 4.6-6.2 [facility] Serum creatinine measurement (mass/volume)Ordered By: Arin Weston on 01-09-2025 Creatinine [Mass/Vol] 1.10 mg/dL 0.70-1.20 [facility] Serum globulin measurementOr dered By: Arin Weston on 01-09-2025 Globulin (S) [Mass/Vol] 3.0 g/dL 2.2-4.2 [facility] Serum glucose measurement (m ass/volume)Ordered By: Arin Weston on 01-09-2025 Glucose [Mass/Vol] 89 mg/dL 70-99 [facility] Serum or plasma alanine rausch otransferase (ALT) measurementOrdered By: Arin Weston on 01-09-2025 ALT [Catalytic activity/Vol] 6 U/L <47 [facility] Serum or plasma albumin patricia urement (mass/volume)Ordered By: Arin Weston on 01-09-2025 Albumin [Mass/Vol] 3.3 g/dL Low 3.4-4.8 [facility] Serum or plasma albumin/glob ulin mass ratioOrdered By: Arin Weston on 01-09-2025 Albumin/Globulin [Mass ratio] 1.1 {ratio} 0.9-2.4 [facility] Serum or plasma alkaline martín sphatase measurementOrdered By: Arin Weston on 01-09-2025 ALP [Catalytic activity/Vol] 73 U/L 40-129 [facility] Serum or plasma calcium patricia urement (mass/volume)Ordered By: Arin Weston on 01-09-2025 Calcium [Mass/Vol] 8.6 mg/dL 7.6-11.0 [facility] Serum or plasma urea nitroge n measurement (mass/volume)Ordered By: Arin Weston on 01-09-2025 Urea nitrogen [Mass/Vol] 32 mg/dL High 4-19 [facility] Sodium levelOrdered By: Chapo Weston on 01-09-2025 Sodium [Moles/Vol] 146 mmol/L High 133-145 [facility] Total proteinOrdered By: Hari Weston on 01-09-2025 Protein [Mass/Vol] 6.3 g/dL 5.9-8.4 [facility] White blood cell (WBC) count Ordered By: Arin Weston on 01-09-2025 WBC (Bld) [#/Vol] 4.1 10*3/uL Low 4.4-11.0 [facility] HIP, UNI W/ Pelvis 2-3 Views on 01-05-2025 HIP, UNI W/ Pelvis 2-3 Views Normal [facility] Orthopedic Visit Reporton Orthopedic Visit Report Normal [facility] Absolute lymphocyte countOrd ered By: Arin Weston on 01-02-2025 Lymphocytes Auto (Unsp spec) [#/Vol] 1.73 10*3/uL 0.83-4.51 [facility] Absolute neutrophil countOrd ered By: Arin Weston on 01-02-2025 Neutrophils (Bld) [#/Vol] 2.8 10*3/uL 2.0-7.7 [facility] Anion gap in Serum or Plasma Ordered By: Arin Weston on 01-02-2025 Anion gap [Moles/Vol] 11 mmol/L 5- [facility] Automated lymphocyte count a s percentage of total leukocytesOrdered By: Arin Weston on 01-02-2025 Lymphocytes/100 WBC Auto (Unsp spec) 32.7 % - [facility] BUN/creatinine ratioOrdered By: Arin Weston on 01-02-2025 Urea nitrogen/Creatinine [Mass ratio] 28.5 mg/mg High 10- [facility] Basophil percentageOrdered B y: Arin Weston on 01-02-2025 Basophils/100 WBC (Bld) 0.4 % 0-1 [facility] Bilirubin, totalOrdered By: Arin Weston on 01-02-2025 Bilirubin [Mass/Vol] 0.50 mg/dL 0.00-1.30 [facility] CBC W/Diff, Automatedon 12-22 Absolute Lymph 1.73 X10 3/uL Normal 0.83-4.51 [facility] Comment on above: Order Comment: 210 Performed By: #### L 500.4050, L501.9985, L501.5200, L501.9520, L506.1001, L500.4100, L100.0100 ####[facility] [address] [place], [address] Absolute Neut 2.8 X10 3/uL Normal 2.0-7.7 [facility] Comment on above: Order Comment: 210 Performed By: #### L 500.4050, L501.9985, L501.5200, L501.9520, L506.1001, L500.4100, L100.0100 ####[facility] [address] [place], [address] Basophils/100 WBC (Bld) 0.4 % Normal 0-1 [facility] Comment on above: Order Comment: 210 Performed By: #### L 500.4050, L501.9985, L501.5200, L501.9520, L506.1001, L500.4100, L100.0100 ####[facility] [address] [place], [address] Eosinophils/100 WBC (Bld) 3.6 % Normal 0-5 [facility] Comment on above: Order Comment: 210 Performed By: #### L 500.4050, L501.9985, L501.5200, L501.9520, L506.1001, L500.4100, L100.0100 ####[facility] [address] [place], [address] Erythrocyte distribution width (RBC) [Ratio] 14.6 % Normal 11.6-14.6 [facility] Comment on above: Order Comment: 210 Performed By: #### L 500.4050, L501.9985, L501.5200, L501.9520, L506.1001, L500.4100, L100.0100 ####[facility] [address] [place], [address] Hematocrit (Bld) [Volume fraction] 33.1 % Low 40-54 [facility] Comment on above: Order Comment: 210 Performed By: #### L 500.4050, L501.9985, L501.5200, L501.9520, L506.1001, L500.4100, L100.0100 ####[facility] [address] [place], [address] Hemoglobin (Bld) [Mass/Vol] 10.7 g/dL Low 13.0-16.5 [facility] Comment on above: Order Comment: 210 Performed By: #### L 500.4050, L501.9985, L501.5200, L501.9520, L506.1001, L500.4100, L100.0100 ####[facility] [address] [place], [address] IG% 1.100 High 0.0-0.9 [facility] Comment on above: Order Comment: 210 Result Comment: IG% - Immature Granulocytes (promyelocytes, myelocytes andmetamyelocytes) > 1% indicates that a LEFT SHIFT is Present. Performed By: #### L 500.4050, L501.9985, L501.5200, L501.9520, L506.1001, L500.4100, L100.0100 ####[facility] [address] [place], [address] Lymphocytes/100 WBC (Bld) 32.7 % Normal 19-41 [facility] Comment on above: Order Comment: 210 Performed By: #### L 500.4050, L501.9985, L501.5200, L501.9520, L506.1001, L500.4100, L100.0100 ####[facility] [address] [place], [address] MCH (RBC) [Entitic mass] 35.0 pg High 27.0-32.0 [facility] Comment on above: Order Comment: 210 Performed By: #### L 500.4050, L501.9985, L501.5200, L501.9520, L506.1001, L500.4100, L100.0100 ####[facility] [address] [place], [address] MCHC (RBC) [Mass/Vol] 32.3 g/dL Normal 32-36 [facility] Comment on above: Order Comment: 210 Performed By: #### L 500.4050, L501.9985, L501.5200, L501.9520, L506.1001, L500.4100, L100.0100 ####[facility] [address] [place], [address] MCV (RBC) [Entitic vol] 108.2 fL High 80-94 [facility] Comment on above: Order Comment: 210 Performed By: #### L 500.4050, L501.9985, L501.5200, L501.9520, L506.1001, L500.4100, L100.0100 ####[facility] [address] [place], [address] Monocytes/100 WBC (Bld) 9.5 % Normal 0-10 [facility] Comment on above: Order Comment: 210 Performed By: #### L 500.4050, L501.9985, L501.5200, L501.9520, L506.1001, L500.4100, L100.0100 ####[facility] [address] [place], [address] Neutrophils/100 WBC (Bld) 52.7 % Normal 47-70 [facility] Comment on above: Order Comment: 210 Performed By: #### L 500.4050, L501.9985, L501.5200, L501.9520, L506.1001, L500.4100, L100.0100 ####[facility] [address] [place], [address] Nucleated RBC (Bld) [#/Vol] 0 10*3/uL Normal 0-5 [facility] Comment on above: Order Comment: 210 Performed By: #### L 500.4050, L501.9985, L501.5200, L501.9520, L506.1001, L500.4100, L100.0100 ####[facility] [address] [place], [address] Platelet mean volume (Bld) [Entitic vol] 9.1 fL Normal 6.2-12.0 [facility] Comment on above: Order Comment: 210 Performed By: #### L 500.4050, L501.9985, L501.5200, L501.9520, L506.1001, L500.4100, L100.0100 ####[facility] [id number] [place], [address] Platelets (Bld) [#/Vol] 378 10*3/uL Normal 150-450 [facility] Comment on above: Order Comment: 210 Performed By: #### L 500.4050, L501.9985, L501.5200, L501.9520, L506.1001, L500.4100, L100.0100 ####[facility] [address] [place], [address] RBC (Bld) [#/Vol] 3.06 10*6/uL Low 4.6-6.2 [facility] Comment on above: Order Comment: 210 Performed By: #### L 500.4050, L501.9985, L501.5200, L501.9520, L506.1001, L500.4100, L100.0100 ####[facility] [address] [place], [address] RDW SD 57.1 fl High 35.1-43.9 [facility] Comment on above: Order Comment: 210 Performed By: #### L 500.4050, L501.9985, L501.5200, L501.9520, L506.1001, L500.4100, L100.0100 ####[facility] [address] [place], [place], [address] WBC (Bld) [#/Vol] 5.3 10*3/uL Normal 4.4-11.0 [facility] Comment on above: Order Comment: 210 Performed By: #### L 500.4050, L501.9985, L501.5200, L501.9520, L506.1001, L500.4100, L100.0100 ####[facility] [address] [place], [place], [id number] Calculated very low density lipoprotein (VLDL) cholesterol measurementOrdered By: Arin Weston on 01-02-2025 Calculated very low density lipoprotein (VLDL) cholesterol measurement 19 mg/dL 5-40 [facility] Carbon dioxide, total [Moles /volume] in Central venous bloodOrdered By: Arin Weston on 01-02-2025 CO2 [Moles/Vol] 24.5 mmol/L 21.0-32.0 [facility] Chloride assayOrdered By: Lebron Weston on 01-02-2025 Chloride [Moles/Vol] 108 mmol/L 98-108 [facility] Comprehensive Metabolic Prof ilon 01-02-2025 Albumin [Mass/Vol] 3.2 g/dL Low 3.4-4.8 [facility] Comment on above: Order Comment: 210 Performed By: #### L 500.4050, L501.9985, L501.5200, L501.9520, L506.1001, L500.4100, L100.0100 ####[facility] [address] [place], [place], [id number] Albumin/Globulin [Mass ratio] 1.2 {ratio} Normal 0.9-2.4 [facility] Comment on above: Order Comment: 210 Performed By: #### L 500.4050, L501.9985, L501.5200, L501.9520, L506.1001, L500.4100, L100.0100 ####[facility] [address] [place], [place], [id number] ALK PHOS 64 U/L Normal 40-129 [facility] Comment on above: Order Comment: 210 Performed By: #### L 500.4050, L501.9985, L501.5200, L501.9520, L506.1001, L500.4100, L100.0100 ####[facility] [address] [place], [address] ALT [Catalytic activity/Vol] 8 U/L Normal <=46 [facility] Comment on above: Order Comment: 210 Performed By: #### L 500.4050, L501.9985, L501.5200, L501.9520, L506.1001, L500.4100, L100.0100 ####[facility] [address] [place], [address] AST [Catalytic activity/Vol] 15 U/L Normal <=37 [facility] Comment on above: Order Comment: 210 Performed By: #### L 500.4050, L501.9985, L501.5200, L501.9520, L506.1001, L500.4100, L100.0100 ####[facility] [address] [place], [address] Bilirubin [Mass/Vol] 0.50 mg/dL Normal 0.00-1.30 [facility] Comment on above: Order Comment: 210 Performed By: #### L 500.4050, L501.9985, L501.5200, L501.9520, L506.1001, L500.4100, L100.0100 ####[facility] [address] [place], [address] BUN/CRE 28.5 RATIO High 10-20 [facility] Comment on above: Order Comment: 210 Performed By: #### L 500.4050, L501.9985, L501.5200, L501.9520, L506.1001, L500.4100, L100.0100 ####[facility] [address] [place], [address] Calcium [Mass/Vol] 8.9 mg/dL Normal 7.6-11.0 [facility] Comment on above: Order Comment: 210 Performed By: #### L 500.4050, L501.9985, L501.5200, L501.9520, L506.1001, L500.4100, L100.0100 ####[facility] [address] [place], [address] Chloride [Moles/Vol] 108 mmol/L Normal 98-108 [facility] Comment on above: Order Comment: 210 Performed By: #### L 500.4050, L501.9985, L501.5200, L501.9520, L506.1001, L500.4100, L100.0100 ####[facility] [address] [place], [address] CO2 [Moles/Vol] 24.5 mmol/L Normal 21.0-32.0 [facility] Comment on above: Order Comment: 210 Performed By: #### L 500.4050, L501.9985, L501.5200, L501.9520, L506.1001, L500.4100, L100.0100 ####[facility] [address] [place], [address] Creatinine [Mass/Vol] 1.06 mg/dL Normal 0.70-1.20 [facility] Comment on above: Order Comment: 210 Performed By: #### L 500.4050, L501.9985, L501.5200, L501.9520, L506.1001, L500.4100, L100.0100 ####[facility] [address] [place], [address] GAP 11 Normal 5-15 [facility] Comment on above: Order Comment: 210 Performed By: #### L 500.4050, L501.9985, L501.5200, L501.9520, L506.1001, L500.4100, L100.0100 ####[facility] [address] [place], [address] GFR/1.73 sq M.predicted among non-blacks MDRD (S/P/Bld) [Vol rate/Area] 68 mL/min/{1.73_m2} Normal >60 [facility] Comment on above: Order Comment: 210 Result Comment: mL/m in/1.73m2 CKD-EPI Creatinine Equation (2020) Performed By: #### L 500.4050, L501.9985, L501.5200, L501.9520, L506.1001, L500.4100, L100.0100 ####[facility] [address] [place], [address] Globulin (S) [Mass/Vol] 2.7 g/dL Normal 2.2-4.2 [facility] Comment on above: Order Comment: 210 Performed By: #### L 500.4050, L501.9985, L501.5200, L501.9520, L506.1001, L500.4100, L100.0100 ####[facility] [address] [place], [address] Glucose [Mass/Vol] 91 mg/dL Normal 70-99 [facility] Comment on above: Order Comment: 210 Performed By: #### L 500.4050, L501.9985, L501.5200, L501.9520, L506.1001, L500.4100, L100.0100 ####[facility] [address] [place], [address] Potassium [Moles/Vol] 3.8 mmol/L Normal 3.3-5.1 [facility] Comment on above: Order Comment: 210 Performed By: #### L 500.4050, L501.9985, L501.5200, L501.9520, L506.1001, L500.4100, L100.0100 ####[facility] [address] [place], [address] Sodium [Moles/Vol] 144 mmol/L Normal 133-145 [facility] Comment on above: Order Comment: 210 Performed By: #### L 500.4050, L501.9985, L501.5200, L501.9520, L506.1001, L500.4100, L100.0100 ####[facility] [address] [place], [address] T PROT 5.9 g/dL Normal 5.9-8.4 [facility] Comment on above: Order Comment: 210 Performed By: #### L 500.4050, L501.9985, L501.5200, L501.9520, L506.1001, L500.4100, L100.0100 ####[facility] [address] [place], [address] Urea nitrogen [Mass/Vol] 30 mg/dL High 4-19 [facility] Comment on above: Order Comment: 210 Performed By: #### L 500.4050, L501.9985, L501.5200, L501.9520, L506.1001, L500.4100, L100.0100 ####[facility] [address] [place], [address] Eosinophil percentageOrdered By: Arin Weston on 01-02-2025 Eosinophils/100 WBC (Bld) 3.6 % 0-5 [facility] Erythrocyte distribution wid th ratioOrdered By: Arin Weston on 01-02-2025 Erythrocyte distribution width (RBC) [Ratio] 14.6 % 11.6-14.6 [facility] Erythrocyte distribution wid th standard deviationOrdered By: Arin Weston on 01-02-2025 Erythrocyte distribution width (RBC) [Ratio] 57.1 fl High 35.1-43.9 [facility] Glomerular filtration rate ( GFR) estimation/1.73 sq m using serum, plasma, or whole bOrdered By: Arin Weston on 01-02-2025 GFR/1.73 sq M.predicted among non-blacks MDRD (S/P/Bld) [Vol rate/Area] 68 mL/min/{1.73_m2} >60 [facility] Comment on above: mL/min/1.73m2 CKD-EP I Creatinine Equation (2020) Hematocrit Auto (Bld) [Volum e fraction]Ordered By: Arin Weston on 01-02-2025 Hematocrit (Bld) [Volume fraction] 33.1 % Low 40-54 [facility] Hemoglobin A1con 01-02-2025 HbA1c (Bld) [Mass fraction] 5.5 % Normal <=5.6 [facility] Comment on above: Order Comment: 210 Result Comment: Norm al < 5.7 % Prediabetic 5.7 - 6.4 % Diabetic >or= 6.5 % Please note range changes. Performed By: #### L 500.4050, L501.9985, L501.5200, L501.9520, L506.1001, L500.4100, L100.0100 ####[facility] [address] [place], [address] Hemoglobin A1c percentageOrd ered By: Arin Weston on 01-02-2025 HbA1c (Bld) [Mass fraction] 5.5 % <5.7 [facility] Comment on above: Normal < 5.7 % Predi abetic 5.7 - 6.4 % Diabetic >or= 6.5 % Please note range changes. Hemoglobin measurementOrdere d By: Arin Weston on 01-02-2025 Hemoglobin (Bld) [Mass/Vol] 10.7 g/dL Low 13.0-16.5 [facility] Immature granulocytes/100 WB C Auto (Bld)Ordered By: Arin Weston on 01-02-2025 Immature granulocytes/100 WBC (Bld) 1.100 % High 0.0-0.9 [facility] Comment on above: IG% - Immature Granu locytes (promyelocytes, myelocytes and metamyelocytes) > 1% indicates that a LEFT SHIFT is Present. LDL calc ser/plasOrdered By: Arin Weston on 01-02-2025 Cholesterol in LDL [Mass/Vol] 52 mg/dL [facility] Comment on above: Bjvggmmwjd=318-295 m g/dL & Higher Jglo=236 mg/dL or greaterFriedwald Equation for LDL-C Laboratory - Chemistry and C hemistry - challengeOrdered By: Arin Weston on 01-02-2025 AST [Catalytic activity/Vol] 15 U/L <38 [facility] Lipid Profileon 01-02-2025 CHOL:HDL 2.39 Normal [facility] Comment on above: Order Comment: 210 Performed By: #### L 500.4050, L501.9985, L501.5200, L501.9520, L506.1001, L500.4100, L100.0100 ####[facility] [address] [place], [place], [phone] Cholesterol [Mass/Vol] 121 mg/dL Normal <=200 [facility] Comment on above: Order Comment: 210 Result Comment: Chol esterol level, Desirable <200 mg/dLBorderline high cholesterol 200-239 mg/dLHigh cholesterol >=240 mg/dLRecommendations of the NCEP Adult Treatment Panel for thefollowing risk-cutoff thresholds for the [place] Americanpulation. Performed By: #### L 500.4050, L501.9985, L501.5200, L501.9520, L506.1001, L500.4100, L100.0100 ####[facility] [address] [place], [place], [phone] Cholesterol in HDL [Mass/Vol] 51 mg/dL Normal [facility] Comment on above: Order Comment: 210 Result Comment: Kelly onal Cholesterol Education Program (NCEP) guidelines:<40 mg/dL: Low HDL-cholesterol (major risk factor for CHD)>= 60 mg/dL: High HDL-cholesterol (negative risk factor forCHD)HDL-cholesterol is affected by a number of factors, e.g.smoking, exercise, hormones, sex and age. Performed By: #### L 500.4050, L501.9985, L501.5200, L501.9520, L506.1001, L500.4100, L100.0100 ####[facility] [address] [place], [address] Cholesterol in LDL [Mass/Vol] 52 mg/dL Normal [facility] Comment on above: Order Comment: 210 Result Comment: Bord lvsybj=165-787 mg/dL Higher Jiut=759 mg/dL or greaterFriedwald Equation for LDL-C Performed By: #### L 500.4050, L501.9985, L501.5200, L501.9520, L506.1001, L500.4100, L100.0100 ####[facility] [address] [place], [address] Cholesterol in VLDL [Mass/Vol] 19 mg/dL Normal 5-40 [facility] Comment on above: Order Comment: 210 Performed By: #### L 500.4050, L501.9985, L501.5200, L501.9520, L506.1001, L500.4100, L100.0100 ####[facility] [address] [place], [address] Triglyceride [Mass/Vol] 93 mg/dL Normal [facility] Comment on above: Order Comment: 210 Result Comment: The drugs N-Acetylcysteine and Metamizole may falselydepress this assay.Normal range: <150 mg/dLBorderline High: 150-199 mg/dLHigh: 200-499 mg/dLVery High: >500 mg/dL Performed By: #### L 500.4050, L501.9985, L501.5200, L501.9520, L506.1001, L500.4100, L100.0100 ####[facility] [address] [place], [place], [address] MCV (mean corpuscular volume ) determinationOrdered By: Arin Weston on 01-02-2025 MCV (RBC) [Entitic vol] 108.2 fL High 80-94 [facility] Magnesiumon 01-02-2025 Magnesium [Mass/Vol] 2.5 mg/dL High 1.5-2.2 [facility] Comment on above: Order Comment: 210 Performed By: #### L 500.4050, L501.9985, L501.5200, L501.9520, L506.1001, L500.4100, L100.0100 ####[facility] [address] [place], [place], [id number] Magnesium measurement (mass/ volume)Ordered By: Arin Weston on 01-02-2025 Magnesium (Unsp spec) [Mass/Vol] 2.5 mg/dL High 1.5-2.2 [facility] Mean corpuscular hemoglobin (MCH) determinationOrdered By: Arin Weston on 01-02-2025 MCH (RBC) [Entitic mass] 35.0 pg High 27.0-32.0 [facility] Mean corpuscular hemoglobin concentration (MCHC) determinationOrdered By: Arin Weston on 01-02-2025 MCHC (RBC) [Mass/Vol] 32.3 g/dL 32-36 [facility] Mean platelet volume determi nationOrdered By: Arin Weston on 01-02-2025 Platelet mean volume (Bld) [Entitic vol] 9.1 fL 6.2-12.0 [facility] Monocyte percentageOrdered B y: Arin Weston on 01-02-2025 Monocytes/100 WBC (Bld) 9.5 % 0-10 [facility] Neutrophil percentageOrdered By: Arin Weston on 01-02-2025 Neutrophils/100 WBC (Bld) 52.7 % 47-70 [facility] No Panel InformationOrdered By: Arin Weston on 01-02-2025 15 U/L <38 [facility] Nucleated red blood cell per centageOrdered By: Arin Weston on 01-02-2025 Nucleated RBC/100 WBC (Bld) [Ratio] 0 % 0-5 [facility] Platelet countOrdered By: Lebron Weston on 01-02-2025 Platelets (Bld) [#/Vol] 378 10*3/uL 150-450 [facility] Potassium measurement (mass/ volume)Ordered By: Arin Weston on 01-02-2025 Potassium (Unsp spec) [Mass/Vol] 3.8 mmol/L 3.3-5.1 [facility] RBC Auto (Bld) [#/Vol]Ordere d By: Arin Weston on 01-02-2025 RBC (Bld) [#/Vol] 3.06 10*6/uL Low 4.6-6.2 [facility] Screening total cholesterol/ high density lipoprotein (HDL) cholesterol ratioOrdered By: Arin Weston on 01-02-2025 Cholesterol.total/Choles terol in HDL [Mass ratio] 2.39 {ratio} [facility] Serum creatinine measurement (mass/volume)Ordered By: Arin Weston on 01-02-2025 Creatinine [Mass/Vol] 1.06 mg/dL 0.70-1.20 [facility] Serum globulin measurementOr dered By: Arin Weston on 01-02-2025 Globulin (S) [Mass/Vol] 2.7 g/dL 2.2-4.2 [facility] Serum glucose measurement (m ass/volume)Ordered By: Arin Weston on 01-02-2025 Glucose [Mass/Vol] 91 mg/dL 70-99 [facility] Serum or plasma alanine rausch otransferase (ALT) measurementOrdered By: Arin Weston on 01-02-2025 ALT [Catalytic activity/Vol] 8 U/L <47 [facility] Serum or plasma albumin patricia urement (mass/volume)Ordered By: Arin Weston on 01-02-2025 Albumin [Mass/Vol] 3.2 g/dL Low 3.4-4.8 [facility] Serum or plasma albumin/glob ulin mass ratioOrdered By: Arin Weston on 01-02-2025 Albumin/Globulin [Mass ratio] 1.2 {ratio} 0.9-2.4 [facility] Serum or plasma alkaline martín sphatase measurementOrdered By: Arin Weston on 01-02-2025 ALP [Catalytic activity/Vol] 64 U/L 40-129 [facility] Serum or plasma calcium patircia urement (mass/volume)Ordered By: Arin Weston on 01-02-2025 Calcium [Mass/Vol] 8.9 mg/dL 7.6-11.0 [facility] Serum or plasma cholesterol in HDL measurement (mass/volume)Ordered By: Arin Weston on 01-02-2025 Cholesterol in HDL [Mass/Vol] 51 mg/dL >40 [facility] Comment on above: National Cholesterol Education Program (NCEP) guidelines:<40 mg/dL: Low HDL-cholesterol (major risk factor for CHD)>= 60 mg/dL: High HDL-cholesterol (negative risk factor for CHD)HDL-cholesterol is affected by a number of factors, e.g. smoking, exercise, hormones, sex and age. Serum or plasma cholesterol measurement (mass/volume)Ordered By: Arin Weston on 01-02-2025 Cholesterol [Mass/Vol] 121 mg/dL <201 [facility] Comment on above: Cholesterol level, D esirable <200 mg/dLBorderline high cholesterol 200-239 mg/dLHigh cholesterol >=240 mg/dLRecommendations of the NCEP Adult Treatment Panel for the following risk-cutoff thresholds for the [place] population. Serum or plasma urea nitroge n measurement (mass/volume)Ordered By: Arin Weston on 01-02-2025 Urea nitrogen [Mass/Vol] 30 mg/dL High 4-19 [facility] Sodium levelOrdered By: Chapo Weston on 01-02-2025 Sodium [Moles/Vol] 144 mmol/L 133-145 [facility] TSH DL <= 0.005 mIU/L QnOrde red By: Arin Weston on 01-02-2025 TSH Qn 1.620 uIU/mL 0.300-4.200 [facility] Thyroid Stim Hormone (TSH)on 01-02-2025 TSH 1.620 uIU/mL Normal 0.300-4.200 [facility] Comment on above: Order Comment: 210 Performed By: #### L 500.4050, L501.9985, L501.5200, L501.9520, L506.1001, L500.4100, L100.0100 ####[facility] [address] [place], [place], [id number] Total proteinOrdered By: Hari Weston on 01-02-2025 Protein [Mass/Vol] 5.9 g/dL 5.9-8.4 [facility] Triglycerides measurementOrd ered By: Arin Weston on 01-02-2025 Triglyceride [Mass/Vol] 93 mg/dL <199 [facility] Comment on above: The drugs N-Acetylcy steine and Metamizole may falsely depress this assay. Normal range: <150 mg/dLBorderline High: 150-199 mg/dLHigh: 200-499 mg/dLVery High: >500 mg/dL Vitamin D,25 Hydroxyon 01-02 Vitamin D 25-OH 14.1 ng/mL Low 30-100 [facility] Comment on above: Order Comment: 210 Result Comment: Marita min D StatusDeficiency: <20 ng/mL (50nmol/L)Insufficiency: 20-30 ng/mL (50-75 nmol/L)Sufficiency: 30-100 ng/mL (75-250 nmol/L)Toxicity: >100 ng/mL (>250 nmol/L) Performed By: #### L 500.4050, L501.9985, L501.5200, L501.9520, L506.1001, L500.4100, L100.0100 ####[facility] [address] [place], [address] White blood cell (WBC) count Ordered By: Arin Weston on 01-02-2025 WBC (Bld) [#/Vol] 5.3 10*3/uL 4.4-11.0 [facility] Absolute lymphocyte countOrd ered By: Arin Weston on 12-26-2024 Lymphocytes Auto (Unsp spec) [#/Vol] 2.08 10*3/uL 0.83-4.51 [facility] Absolute neutrophil countOrd ered By: Arinpierre Weston on 12-26-2024 Neutrophils (Bld) [#/Vol] 2.6 10*3/uL 2.0-7.7 [facility] Anion gap in Serum or Plasma Ordered By: Arinpierre Weston on 12-26-2024 Anion gap [Moles/Vol] 10 mmol/L 5-15 [facility] Automated lymphocyte count a s percentage of total leukocytesOrdered By: Arin Weston on 12-26-2024 Lymphocytes/100 WBC Auto (Unsp spec) 38.0 % - [facility] BUN/creatinine ratioOrdered By: Arinpierre Weston on 12-26-2024 Urea nitrogen/Creatinine [Mass ratio] 26.8 mg/mg High 10- [facility] Basic Metabolic Profile (BMP )on 12-26-2024 BUN/CRE 26.8 RATIO High - [facility] Comment on above: Order Comment: 210 Performed By: #### L 100.0100, L500.2500 ####[facility] [address] [place], [address] Calcium [Mass/Vol] 8.4 mg/dL Normal 7.6-11.0 [facility] Comment on above: Order Comment: 210 Performed By: #### L 100.0100, L500.2500 ####[facility] [address] [place], [address] Chloride [Moles/Vol] 110 mmol/L High 98-108 [facility] Comment on above: Order Comment: 210 Performed By: #### L 100.0100, L500.2500 ####[facility] [address] [place], [address] CO2 [Moles/Vol] 24.6 mmol/L Normal 21.0-32.0 [facility] Comment on above: Order Comment: 210 Performed By: #### L 100.0100, L500.2500 ####[facility] [address] [place], [address] Creatinine [Mass/Vol] 0.94 mg/dL Normal 0.70-1.20 [facility] Comment on above: Order Comment: 210 Performed By: #### L 100.0100, L500.2500 ####[facility] [address] [place], [address] GAP 10 Normal 5-15 [facility] Comment on above: Order Comment: 210 Performed By: #### L 100.0100, L500.2500 ####[facility] [address] [place], [address] GFR/1.73 sq M.predicted among non-blacks MDRD (S/P/Bld) [Vol rate/Area] 78 mL/min/{1.73_m2} Normal >60 [facility] Comment on above: Order Comment: 210 Result Comment: mL/m in/1.73m2 CKD-EPI Creatinine Equation (2020) Performed By: #### L 100.0100, L500.2500 ####[facility] [address] [place], [address] Glucose [Mass/Vol] 103 mg/dL High 70-99 [facility] Comment on above: Order Comment: 210 Performed By: #### L 100.0100, L500.2500 ####[facility] [address] [place], [address] Potassium [Moles/Vol] 4.1 mmol/L Normal 3.3-5.1 [facility] Comment on above: Order Comment: 210 Performed By: #### L 100.0100, L500.2500 ####[facility] [address] [place], [address] Sodium [Moles/Vol] 144 mmol/L Normal 133-145 [facility] Comment on above: Order Comment: 210 Performed By: #### L 100.0100, L500.2500 ####[facility] [address] [place], [address] Urea nitrogen [Mass/Vol] 25 mg/dL High 4-19 [facility] Comment on above: Order Comment: 210 Performed By: #### L 100.0100, L500.2500 ####[facility] [address] [place], [address] Basophil percentageOrdered B y: Arin Weston on 12-26-2024 Basophils/100 WBC (Bld) 0.4 % 0-1 [facility] CBC W/Diff, Automatedon Absolute Lymph 2.08 X10 3/uL Normal 0.83-4.51 [facility] Comment on above: Order Comment: 210 Performed By: #### L 100.0100, L500.2500 ####[facility] [address] [place], [address] Absolute Neut 2.6 X10 3/uL Normal 2.0-7.7 [facility] Comment on above: Order Comment: 210 Performed By: #### L 100.0100, L500.2500 ####[facility] [address] [place], [address] Basophils/100 WBC (Bld) 0.4 % Normal 0-1 [facility] Comment on above: Order Comment: 210 Performed By: #### L 100.0100, L500.2500 ####[facility] [address] [place], [address] Eosinophils/100 WBC (Bld) 2.7 % Normal 0-5 [facility] Comment on above: Order Comment: 210 Performed By: #### L 100.0100, L500.2500 ####[facility] [address] [place], [address] Erythrocyte distribution width (RBC) [Ratio] 13.5 % Normal 11.6-14.6 [facility] Comment on above: Order Comment: 210 Performed By: #### L 100.0100, L500.2500 ####[facility] [address] [place], [address] Hematocrit (Bld) [Volume fraction] 29.9 % Low 40-54 [facility] Comment on above: Order Comment: 210 Performed By: #### L 100.0100, L500.2500 ####[facility] [address] [place], [address] Hemoglobin (Bld) [Mass/Vol] 9.8 g/dL Low 13.0-16.5 [facility] Comment on above: Order Comment: 210 Performed By: #### L 100.0100, L500.2500 ####[facility] [address] [place], [address] IG% 2.000 High 0.0-0.9 [facility] Comment on above: Order Comment: 210 Result Comment: IG% - Immature Granulocytes (promyelocytes, myelocytes andmetamyelocytes) > 1% indicates that a LEFT SHIFT is Present. Performed By: #### L 100.0100, L500.2500 ####[facility] [address] [place], [address] Lymphocytes/100 WBC (Bld) 38.0 % Normal 19-41 [facility] Comment on above: Order Comment: 210 Performed By: #### L 100.0100, L500.2500 ####[facility] [address] [place], [address] MCH (RBC) [Entitic mass] 34.5 pg High 27.0-32.0 [facility] Comment on above: Order Comment: 210 Performed By: #### L 100.0100, L500.2500 ####[facility] [address] [place], [address] MCHC (RBC) [Mass/Vol] 32.8 g/dL Normal 32-36 [facility] Comment on above: Order Comment: 210 Performed By: #### L 100.0100, L500.2500 ####[facility] [address] [place], [address] MCV (RBC) [Entitic vol] 105.3 fL High 80-94 [facility] Comment on above: Order Comment: 210 Performed By: #### L 100.0100, L500.2500 ####[facility] [address] [place], [address] Monocytes/100 WBC (Bld) 9.3 % Normal 0-10 [facility] Comment on above: Order Comment: 210 Performed By: #### L 100.0100, L500.2500 ####[facility] [address] [place], [address] Neutrophils/100 WBC (Bld) 47.6 % Normal 47-70 [facility] Comment on above: Order Comment: 210 Performed By: #### L 100.0100, L500.2500 ####[facility] [address] [place], [address] Nucleated RBC (Bld) [#/Vol] 0 10*3/uL Normal 0-5 [facility] Comment on above: Order Comment: 210 Performed By: #### L 100.0100, L500.2500 ####[facility] [address] [place], [address] Platelet mean volume (Bld) [Entitic vol] 9.7 fL Normal 6.2-12.0 [facility] Comment on above: Order Comment: 210 Performed By: #### L 100.0100, L500.2500 ####[facility] [address] [place], [address] Platelets (Bld) [#/Vol] 250 10*3/uL Normal 150-450 [facility] Comment on above: Order Comment: 210 Performed By: #### L 100.0100, L500.2500 ####[facility] [address] [place], [address] RBC (Bld) [#/Vol] 2.84 10*6/uL Low 4.6-6.2 [facility] Comment on above: Order Comment: 210 Performed By: #### L 100.0100, L500.2500 ####[facility] [address] [place], [address] RDW SD 52.7 fl High 35.1-43.9 [facility] Comment on above: Order Comment: 210 Performed By: #### L 100.0100, L500.2500 ####[facility] [address] [place], [address] WBC (Bld) [#/Vol] 5.5 10*3/uL Normal 4.4-11.0 [facility] Comment on above: Order Comment: 210 Performed By: #### L 100.0100, L500.2500 ####[facility] [address] [place], [address] Carbon dioxide, total [Moles /volume] in Central venous bloodOrdered By: Arin Weston on 12-26-2024 CO2 [Moles/Vol] 24.6 mmol/L 21.0-32.0 [facility] Chloride assayOrdered By: Lebron Weston on 12-26-2024 Chloride [Moles/Vol] 110 mmol/L High 98-108 [facility] Eosinophil percentageOrdered By: Arin Weston on 12-26-2024 Eosinophils/100 WBC (Bld) 2.7 % 0-5 [facility] Erythrocyte distribution wid th ratioOrdered By: Arin Weston on 12-26-2024 Erythrocyte distribution width (RBC) [Ratio] 13.5 % 11.6-14.6 [facility] Erythrocyte distribution wid th standard deviationOrdered By: Arin Weston on 12-26-2024 Erythrocyte distribution width (RBC) [Ratio] 52.7 fl High 35.1-43.9 [facility] Glomerular filtration rate ( GFR) estimation/1.73 sq m using serum, plasma, or whole bOrdered By: Arin Weston on 12-26-2024 GFR/1.73 sq M.predicted among non-blacks MDRD (S/P/Bld) [Vol rate/Area] 78 mL/min/{1.73_m2} >60 [facility] Comment on above: mL/min/1.73m2 CKD-EP I Creatinine Equation (2020) Hematocrit Auto (Bld) [Volum e fraction]Ordered By: Arin Weston on 12-26-2024 Hematocrit (Bld) [Volume fraction] 29.9 % Low 40-54 [facility] Hemoglobin measurementOrdere d By: Arin Weston on 12-26-2024 Hemoglobin (Bld) [Mass/Vol] 9.8 g/dL Low 13.0-16.5 [facility] Immature granulocytes/100 WB C Auto (Bld)Ordered By: Arin Weston on 12-26-2024 Immature granulocytes/100 WBC (Bld) 2.000 % High 0.0-0.9 [facility] Comment on above: IG% - Immature Granu locytes (promyelocytes, myelocytes and metamyelocytes) > 1% indicates that a LEFT SHIFT is Present. MCV (mean corpuscular volume ) determinationOrdered By: Arin Weston on 12-26-2024 MCV (RBC) [Entitic vol] 105.3 fL High 80-94 [facility] Mean corpuscular hemoglobin (MCH) determinationOrdered By: Arin Weston on 12-26-2024 MCH (RBC) [Entitic mass] 34.5 pg High 27.0-32.0 [facility] Mean corpuscular hemoglobin concentration (MCHC) determinationOrdered By: Arin Weston on 12-26-2024 MCHC (RBC) [Mass/Vol] 32.8 g/dL 32-36 [facility] Mean platelet volume determi nationOrdered By: Arin Weston on 12-26-2024 Platelet mean volume (Bld) [Entitic vol] 9.7 fL 6.2-12.0 [facility] Monocyte percentageOrdered B y: Arin Weston on 12-26-2024 Monocytes/100 WBC (Bld) 9.3 % 0-10 [facility] Neutrophil percentageOrdered By: Arin Weston on 12-26-2024 Neutrophils/100 WBC (Bld) 47.6 % 47-70 [facility] Nucleated red blood cell per centageOrdered By: Arin Weston on 12-26-2024 Nucleated RBC/100 WBC (Bld) [Ratio] 0 % 0-5 [facility] Platelet countOrdered By: Lebron Weston on 12-26-2024 Platelets (Bld) [#/Vol] 250 10*3/uL 150-450 [facility] Potassium measurement (mass/ volume)Ordered By: Arin Weston on 12-26-2024 Potassium (Unsp spec) [Mass/Vol] 4.1 mmol/L 3.3-5.1 [facility] RBC Auto (Bld) [#/Vol]Ordere d By: Arin Weston on 12-26-2024 RBC (Bld) [#/Vol] 2.84 10*6/uL Low 4.6-6.2 [facility] Serum creatinine measurement (mass/volume)Ordered By: Arin Weston on 12-26-2024 Creatinine [Mass/Vol] 0.94 mg/dL 0.70-1.20 [facility] Serum glucose measurement (m ass/volume)Ordered By: Arin Weston on 12-26-2024 Glucose [Mass/Vol] 103 mg/dL High 70-99 [facility] Serum or plasma calcium patricia urement (mass/volume)Ordered By: Arin Weston on 12-26-2024 Calcium [Mass/Vol] 8.4 mg/dL 7.6-11.0 [facility] Serum or plasma urea nitroge n measurement (mass/volume)Ordered By: Arin Weston on 12-26-2024 Urea nitrogen [Mass/Vol] 25 mg/dL High 4-19 [facility] Sodium levelOrdered By: Chapo Weston on 12-26-2024 Sodium [Moles/Vol] 144 mmol/L 133-145 [facility] White blood cell (WBC) count Ordered By: Arin Weston on 12-26-2024 WBC (Bld) [#/Vol] 5.5 10*3/uL 4.4-11.0 [facility] Anion gap in Serum or Plasma Ordered By: Radha Cope on 12-24-2024 Anion gap [Moles/Vol] 10 mmol/L 5-15 [facility] BUN/creatinine ratioOrdered By: Radha Cope on 12-24-2024 Urea nitrogen/Creatinine [Mass ratio] 38.0 mg/mg High 10- [facility] Basic Metabolic Profile (BMP )on 12-24-2024 BUN/CRE 38.0 RATIO High 10- [facility] Comment on above: Performed By: #### L 100.0500, L500.2500 ####[facility] [address] [place], [address] Calcium [Mass/Vol] 8.1 mg/dL Normal 7.6-11.0 [facility] Comment on above: Performed By: #### L 100.0500, L500.2500 ####[facility] [address] [place], [address] Chloride [Moles/Vol] 113 mmol/L High 98-108 [facility] Comment on above: Performed By: #### L 100.0500, L500.2500 ####[facility] [address] [place], [address] CO2 [Moles/Vol] 21.8 mmol/L Normal 21.0-32.0 [facility] Comment on above: Performed By: #### L 100.0500, L500.2500 ####[facility] [address] [place], [address] Creatinine [Mass/Vol] 0.97 mg/dL Normal 0.70-1.20 [facility] Comment on above: Performed By: #### L 100.0500, L500.2500 ####[facility] [address] [place], [address] ECRCL 55.40 ml/min Normal 50-250 [facility] Comment on above: Performed By: #### L 100.0500, L500.2500 ####[facility] [address] [place], [address] GAP 10 Normal 5-15 [facility] Comment on above: Performed By: #### L 100.0500, L500.2500 ####[facility] [address] [place], [address] GFR/1.73 sq M.predicted among non-blacks MDRD (S/P/Bld) [Vol rate/Area] 76 mL/min/{1.73_m2} Normal >60 [facility] Comment on above: Result Comment: mL/m in/1.73m2 CKD-EPI Creatinine Equation (2020) Performed By: #### L 100.0500, L500.2500 ####[facility] [address] [place], [address] Glucose [Mass/Vol] 98 mg/dL Normal 70-99 [facility] Comment on above: Performed By: #### L 100.0500, L500.2500 ####[facility] [address] [place], [address] Potassium [Moles/Vol] 3.9 mmol/L Normal 3.3-5.1 [facility] Comment on above: Performed By: #### L 100.0500, L500.2500 ####[facility] [address] [place], [address] Sodium [Moles/Vol] 144 mmol/L Normal 133-145 [facility] Comment on above: Performed By: #### L 100.0500, L500.2500 ####[facility] [address] [place], [address] Urea nitrogen [Mass/Vol] 37 mg/dL High 4-19 [facility] Comment on above: Performed By: #### L 100.0500, L500.2500 ####[facility] [address] [place], [address] CBC-Complete Blood Cnt No Di ffon 12-24-2024 Erythrocyte distribution width (RBC) [Ratio] 13.2 % Normal 11.6-14.6 [facility] Comment on above: Performed By: #### L 100.0500, L500.2500 ####[facility] [address] [place], [address] Hematocrit (Bld) [Volume fraction] 28.0 % Low 40-54 [facility] Comment on above: Performed By: #### L 100.0500, L500.2500 ####[facility] [address] [place], [address] Hemoglobin (Bld) [Mass/Vol] 9.4 g/dL Low 13.0-16.5 [facility] Comment on above: Performed By: #### L 100.0500, L500.2500 ####[facility] [address] [place], [address] MCH (RBC) [Entitic mass] 34.7 pg High 27.0-32.0 [facility] Comment on above: Performed By: #### L 100.0500, L500.2500 ####[facility] [address] [place], [address] MCHC (RBC) [Mass/Vol] 33.6 g/dL Normal 32-36 [facility] Comment on above: Performed By: #### L 100.0500, L500.2500 ####[facility] [address] [place], [address] MCV (RBC) [Entitic vol] 103.3 fL High 80-94 [facility] Comment on above: Performed By: #### L 100.0500, L500.2500 ####[facility] [address] [place], [address] Platelet mean volume (Bld) [Entitic vol] 9.6 fL Normal 6.2-12.0 [facility] Comment on above: Performed By: #### L 100.0500, L500.2500 ####[facility] [address] [place], [address] Platelets (Bld) [#/Vol] 187 10*3/uL Normal 150-450 [facility] Comment on above: Performed By: #### L 100.0500, L500.2500 ####[facility] [address] [place], [address] RBC (Bld) [#/Vol] 2.71 10*6/uL Low 4.6-6.2 [facility] Comment on above: Performed By: #### L 100.0500, L500.2500 ####[facility] [address] [place], [address] RDW SD 50.4 fl High 35.1-43.9 [facility] Comment on above: Performed By: #### L 100.0500, L500.2500 ####[facility] [address] [place], [address] WBC (Bld) [#/Vol] 5.4 10*3/uL Normal 4.4-11.0 [facility] Comment on above: Performed By: #### L 100.0500, L500.2500 ####[facility] [address] [place], [address] Carbon dioxide, total [Moles /volume] in Central venous bloodOrdered By: Radha Cope on 12-24-2024 CO2 [Moles/Vol] 21.8 mmol/L 21.0-32.0 [facility] Chloride assayOrdered By: Heather Cope on 12-24-2024 Chloride [Moles/Vol] 113 mmol/L High 98-108 [facility] Erythrocyte distribution wid th ratioOrdered By: Radha Cope on 12-24-2024 Erythrocyte distribution width (RBC) [Ratio] 13.2 % 11.6-14.6 [facility] Erythrocyte distribution wid th standard deviationOrdered By: Radha Cope on 12-24-2024 Erythrocyte distribution width (RBC) [Ratio] 50.4 fl High 35.1-43.9 [facility] Glomerular filtration rate ( GFR) estimation/1.73 sq m using serum, plasma, or whole bOrdered By: Radha Cope on 12-24-2024 GFR/1.73 sq M.predicted among non-blacks MDRD (S/P/Bld) [Vol rate/Area] 76 mL/min/{1.73_m2} >60 [facility] Comment on above: mL/min/1.73m2 CKD-EP I Creatinine Equation (2020) Hematocrit Auto (Bld) [Volum e fraction]Ordered By: Radha Cope on 12-24-2024 Hematocrit (Bld) [Volume fraction] 28.0 % Low 40-54 [facility] Hemoglobin measurementOrdere d By: Radha Cope on 12-24-2024 Hemoglobin (Bld) [Mass/Vol] 9.4 g/dL Low 13.0-16.5 [facility] MCV (mean corpuscular volume ) determinationOrdered By: Radha Cope on 12-24-2024 MCV (RBC) [Entitic vol] 103.3 fL High 80-94 [facility] Mean corpuscular hemoglobin (MCH) determinationOrdered By: Radha Cope on 12-24-2024 MCH (RBC) [Entitic mass] 34.7 pg High 27.0-32.0 [facility] Mean corpuscular hemoglobin concentration (MCHC) determinationOrdered By: Radha Cope on 12-24-2024 MCHC (RBC) [Mass/Vol] 33.6 g/dL 32-36 [facility] Mean platelet volume determi nationOrdered By: Radha Cope on 12-24-2024 Platelet mean volume (Bld) [Entitic vol] 9.6 fL 6.2-12.0 [facility] Platelet countOrdered By: Heather Cope on 12-24-2024 Platelets (Bld) [#/Vol] 187 10*3/uL 150-450 [facility] Potassium measurement (mass/ volume)Ordered By: Radha Cope on 12-24-2024 Potassium (Unsp spec) [Mass/Vol] 3.9 mmol/L 3.3-5.1 [facility] RBC Auto (Bld) [#/Vol]Ordere d By: Radha Cope on 12-24-2024 RBC (Bld) [#/Vol] 2.71 10*6/uL Low 4.6-6.2 [facility] Serum creatinine measurement (mass/volume)Ordered By: Radha Cope on 12-24-2024 Creatinine [Mass/Vol] 0.97 mg/dL 0.70-1.20 [facility] Serum glucose measurement (m ass/volume)Ordered By: Radha Cope on 12-24-2024 Glucose [Mass/Vol] 98 mg/dL 70-99 [facility] Serum or plasma calcium patricia urement (mass/volume)Ordered By: Radha Cope on 12-24-2024 Calcium [Mass/Vol] 8.1 mg/dL 7.6-11.0 [facility] Serum or plasma urea nitroge n measurement (mass/volume)Ordered By: Radha Cope on 12-24-2024 Urea nitrogen [Mass/Vol] 37 mg/dL High 4-19 [facility] Sodium levelOrdered By: Sola Cope on 12-24-2024 Sodium [Moles/Vol] 144 mmol/L 133-145 [facility] White blood cell (WBC) count Ordered By: Radha Cope on 12-24-2024 WBC (Bld) [#/Vol] 5.4 10*3/uL 4.4-11.0 [facility] Basic Metabolic Profile (BMP )on 12-22-2024 BUN/CRE 36.6 RATIO High 10-20 [facility] Comment on above: Performed By: #### L 500.2500 ####[facility] [address] [place], [address] Calcium [Mass/Vol] 8.2 mg/dL Normal 7.6-11.0 [facility] Comment on above: Performed By: #### L 500.2500 ####[facility] [address] [place], [address] Chloride [Moles/Vol] 110 mmol/L High 98-108 [facility] Comment on above: Performed By: #### L 500.2500 ####[facility] [address] [place], [address] CO2 [Moles/Vol] 19.9 mmol/L Low 21.0-32.0 [facility] Comment on above: Performed By: #### L 500.2500 ####[facility] [address] [place], [address] Creatinine [Mass/Vol] 1.09 mg/dL Normal 0.70-1.20 [facility] Comment on above: Performed By: #### L 500.2500 ####[facility] [address] [place], [address] ECRCL 49.30 ml/min Low 50-250 [facility] Comment on above: Performed By: #### L 500.2500 ####[facility] [address] [place], [address] GAP 11 Normal 5-15 [facility] Comment on above: Performed By: #### L 500.2500 ####[facility] [address] [place], [address] GFR/1.73 sq M.predicted among non-blacks MDRD (S/P/Bld) [Vol rate/Area] 66 mL/min/{1.73_m2} Normal >60 [facility] Comment on above: Result Comment: mL/m in/1.73m2 CKD-EPI Creatinine Equation (2020) Performed By: #### L 500.2500 ####[facility] [address] [place], [address] Glucose [Mass/Vol] 81 mg/dL Normal 70-99 [facility] Comment on above: Performed By: #### L 500.2500 ####[facility] [address] [place], [address] Potassium [Moles/Vol] 3.9 mmol/L Normal 3.3-5.1 [facility] Comment on above: Performed By: #### L 500.2500 ####[facility] [address] [place], [address] Sodium [Moles/Vol] 140 mmol/L Normal 133-145 [facility] Comment on above: Performed By: #### L 500.2500 ####[facility] [address] [place], [address] Urea nitrogen [Mass/Vol] 40 mg/dL High 4-19 [facility] Comment on above: Performed By: #### L 500.2500 ####[facility] [address] [place], [address] CBC-Complete Blood Cnt No Di ffon 12-22-2024 Erythrocyte distribution width (RBC) [Ratio] 13.2 % Normal 11.6-14.6 [facility] Comment on above: Performed By: #### L 100.0500 ####[facility] [address] [place], [address] Hematocrit (Bld) [Volume fraction] 28.3 % Low 40-54 [facility] Comment on above: Performed By: #### L 100.0500 ####[facility] [address] [place], [address] Hemoglobin (Bld) [Mass/Vol] 9.5 g/dL Low 13.0-16.5 [facility] Comment on above: Performed By: #### L 100.0500 ####[facility] [address] [place], [address] MCH (RBC) [Entitic mass] 34.8 pg High 27.0-32.0 [facility] Comment on above: Performed By: #### L 100.0500 ####[facility] [address] [place], [address] MCHC (RBC) [Mass/Vol] 33.6 g/dL Normal 32-36 [facility] Comment on above: Performed By: #### L 100.0500 ####[facility] [address] [place], [address] MCV (RBC) [Entitic vol] 103.7 fL High 80-94 [facility] Comment on above: Performed By: #### L 100.0500 ####[facility] [address] [place], [address] Platelet mean volume (Bld) [Entitic vol] 9.9 fL Normal 6.2-12.0 [facility] Comment on above: Performed By: #### L 100.0500 ####[facility] [address] [place], [address] Platelets (Bld) [#/Vol] 134 10*3/uL Low 150-450 [facility] Comment on above: Performed By: #### L 100.0500 ####[facility] [address] [place], [address] RBC (Bld) [#/Vol] 2.73 10*6/uL Low 4.6-6.2 [facility] Comment on above: Performed By: #### L 100.0500 ####[facility] [address] [place], [address] RDW SD 50.1 fl High 35.1-43.9 [facility] Comment on above: Performed By: #### L 100.0500 ####[facility] [address] [place], [address] WBC (Bld) [#/Vol] 6.9 10*3/uL Normal 4.4-11.0 [facility] Comment on above: Performed By: #### L 100.0500 ####[facility] [address] [place], [address] Hemoglobinon 12-22-2024 Hemoglobin (Bld) [Mass/Vol] 10.0 g/dL Low 13.0-16.5 [facility] Comment on above: Performed By: #### L 100.1300 ####[facility] [address] [place], [address] Basic Metabolic Profile (BMP )on 12-21-2024 BUN/CRE 32.2 RATIO High 10-20 [facility] Comment on above: Performed By: #### L 500.2500 ####[facility] [address] [place], [address] Calcium [Mass/Vol] 8.4 mg/dL Normal 7.6-11.0 [facility] Comment on above: Performed By: #### L 500.2500 ####[facility] [address] [place], [address] Chloride [Moles/Vol] 106 mmol/L Normal 98-108 [facility] Comment on above: Performed By: #### L 500.2500 ####[facility] [address] [place], [address] CO2 [Moles/Vol] 22.8 mmol/L Normal 21.0-32.0 [facility] Comment on above: Performed By: #### L 500.2500 ####[facility] [address] [place], [address] Creatinine [Mass/Vol] 1.53 mg/dL High 0.70-1.20 [facility] Comment on above: Performed By: #### L 500.2500 ####[facility] [address] [place], [address] ECRCL 35.12 ml/min Low 50-250 [facility] Comment on above: Performed By: #### L 500.2500 ####[facility] [address] [place], [address] GAP 11 Normal 5-15 [facility] Comment on above: Performed By: #### L 500.2500 ####[facility] [address] [place], [address] GFR/1.73 sq M.predicted among non-blacks MDRD (S/P/Bld) [Vol rate/Area] 44 mL/min/{1.73_m2} Low >60 [facility] Comment on above: Result Comment: mL/m in/1.73m2 CKD-EPI Creatinine Equation (2020) Performed By: #### L 500.2500 ####[facility] [address] [place], [address] Glucose [Mass/Vol] 115 mg/dL High 70-99 [facility] Comment on above: Performed By: #### L 500.2500 ####[facility] [address] [place], [address] Potassium [Moles/Vol] 4.0 mmol/L Normal 3.3-5.1 [facility] Comment on above: Performed By: #### L 500.2500 ####[facility] [address] [place], [address] Sodium [Moles/Vol] 140 mmol/L Normal 133-145 [facility] Comment on above: Performed By: #### L 500.2500 ####[facility] [address] [place], [address] Urea nitrogen [Mass/Vol] 49 mg/dL High 4-19 [facility] Comment on above: Performed By: #### L 500.2500 ####[facility] [address] [place], [address] CBC-Complete Blood Cnt No Di ffon 12-21-2024 Erythrocyte distribution width (RBC) [Ratio] 13.0 % Normal 11.6-14.6 [facility] Comment on above: Performed By: #### L 100.0500 ####[facility] [address] [place], [address] Hematocrit (Bld) [Volume fraction] 30.8 % Low 40-54 [facility] Comment on above: Performed By: #### L 100.0500 ####[facility] [address] [place], [address] Hemoglobin (Bld) [Mass/Vol] 10.3 g/dL Low 13.0-16.5 [facility] Comment on above: Performed By: #### L 100.0500 ####[facility] [address] [place], [address] MCH (RBC) [Entitic mass] 35.0 pg High 27.0-32.0 [facility] Comment on above: Performed By: #### L 100.0500 ####[facility] [address] [place], [address] MCHC (RBC) [Mass/Vol] 33.4 g/dL Normal 32-36 [facility] Comment on above: Performed By: #### L 100.0500 ####[facility] [address] [place], [address] MCV (RBC) [Entitic vol] 104.8 fL High 80-94 [facility] Comment on above: Performed By: #### L 100.0500 ####[facility] [address] [place], [address] Platelet mean volume (Bld) [Entitic vol] 9.6 fL Normal 6.2-12.0 [facility] Comment on above: Performed By: #### L 100.0500 ####[facility] [address] [place], [address] Platelets (Bld) [#/Vol] 109 10*3/uL Low 150-450 [facility] Comment on above: Performed By: #### L 100.0500 ####[facility] [address] [place], [address] RBC (Bld) [#/Vol] 2.94 10*6/uL Low 4.6-6.2 [facility] Comment on above: Performed By: #### L 100.0500 ####[facility] [address] [place], [address] RDW SD 50.3 fl High 35.1-43.9 [facility] Comment on above: Performed By: #### L 100.0500 ####[facility] [address] [place], [address] WBC (Bld) [#/Vol] 9.2 10*3/uL Normal 4.4-11.0 [facility] Comment on above: Performed By: #### L 100.0500 ####[facility] [address] [place], [address] Basic Metabolic Profile (BMP )on 12-20-2024 BUN/CRE 22.6 RATIO High 10-20 [facility] Comment on above: Performed By: #### L 500.2500, L100.0500 ####[facility] [address] [place], [address] Calcium [Mass/Vol] 8.4 mg/dL Normal 7.6-11.0 [facility] Comment on above: Performed By: #### L 500.2500, L100.0500 ####[facility] [address] [place], [address] Chloride [Moles/Vol] 108 mmol/L Normal 98-108 [facility] Comment on above: Performed By: #### L 500.2500, L100.0500 ####[facility] [address] [place], [address] CO2 [Moles/Vol] 23.9 mmol/L Normal 21.0-32.0 [facility] Comment on above: Performed By: #### L 500.2500, L100.0500 ####[facility] [address] [place], [address] Creatinine [Mass/Vol] 1.51 mg/dL High 0.70-1.20 [facility] Comment on above: Performed By: #### L 500.2500, L100.0500 ####[facility] [address] [place], [address] ECRCL 35.59 ml/min Low 50-250 [facility] Comment on above: Performed By: #### L 500.2500, L100.0500 ####[facility] [address] [place], [address] GAP 11 Normal 5-15 [facility] Comment on above: Performed By: #### L 500.2500, L100.0500 ####[facility] [address] [place], [address] GFR/1.73 sq M.predicted among non-blacks MDRD (S/P/Bld) [Vol rate/Area] 44 mL/min/{1.73_m2} Low >60 [facility] Comment on above: Result Comment: mL/m in/1.73m2 CKD-EPI Creatinine Equation (2020) Performed By: #### L 500.2500, L100.0500 ####[facility] [address] [place], [address] Glucose [Mass/Vol] 138 mg/dL High 70-99 [facility] Comment on above: Performed By: #### L 500.2500, L100.0500 ####[facility] [address] [place], [address] Potassium [Moles/Vol] 4.7 mmol/L Normal 3.3-5.1 [facility] Comment on above: Performed By: #### L 500.2500, L100.0500 ####[facility] [address] [place], [address] Sodium [Moles/Vol] 143 mmol/L Normal 133-145 [facility] Comment on above: Performed By: #### L 500.2500, L100.0500 ####[facility] [address] [place], [address] Urea nitrogen [Mass/Vol] 34 mg/dL High 4-19 [facility] Comment on above: Performed By: #### L 500.2500, L100.0500 ####[facility] [address] [place], [address] CBC-Complete Blood Cnt No Di ffon 12-20-2024 Erythrocyte distribution width (RBC) [Ratio] 13.2 % Normal 11.6-14.6 [facility] Comment on above: Performed By: #### L 500.2500, L100.0500 ####[facility] [address] [place], [address] Hematocrit (Bld) [Volume fraction] 33.4 % Low 40-54 [facility] Comment on above: Performed By: #### L 500.2500, L100.0500 ####[facility] [address] [place], [address] Hemoglobin (Bld) [Mass/Vol] 11.3 g/dL Low 13.0-16.5 [facility] Comment on above: Performed By: #### L 500.2500, L100.0500 ####[facility] [address] [place], [address] MCH (RBC) [Entitic mass] 35.0 pg High 27.0-32.0 [facility] Comment on above: Performed By: #### L 500.2500, L100.0500 ####[facility] [address] [place], [address] MCHC (RBC) [Mass/Vol] 33.8 g/dL Normal 32-36 [facility] Comment on above: Performed By: #### L 500.2500, L100.0500 ####[facility] [address] [place], [address] MCV (RBC) [Entitic vol] 103.4 fL High 80-94 [facility] Comment on above: Performed By: #### L 500.2500, L100.0500 ####[facility] [address] [place], [address] Platelet mean volume (Bld) [Entitic vol] 9.4 fL Normal 6.2-12.0 [facility] Comment on above: Performed By: #### L 500.2500, L100.0500 ####[facility] [address] [place], [address] Platelets (Bld) [#/Vol] 117 10*3/uL Low 150-450 [facility] Comment on above: Performed By: #### L 500.2500, L100.0500 ####[facility] [address] [place], [address] RBC (Bld) [#/Vol] 3.23 10*6/uL Low 4.6-6.2 [facility] Comment on above: Performed By: #### L 500.2500, L100.0500 ####[facility] [address] [place], [address] RDW SD 50.2 fl High 35.1-43.9 [facility] Comment on above: Performed By: #### L 500.2500, L100.0500 ####[facility] [address] [place], [address] WBC (Bld) [#/Vol] 10.2 10*3/uL Normal 4.4-11.0 [facility] Comment on above: Performed By: #### L 500.2500, L100.0500 ####[facility] [address] [place], [address] Basic Metabolic Profile (BMP )on 12-19-2024 BUN/CRE 23.2 RATIO High 10-20 [facility] Comment on above: Performed By: #### L 500.2500, L100.0500 ####[facility] [address] [place], [address] Calcium [Mass/Vol] 8.4 mg/dL Normal 7.6-11.0 [facility] Comment on above: Performed By: #### L 500.2500, L100.0500 ####[facility] [address] [place], [address] Chloride [Moles/Vol] 109 mmol/L High 98-108 [facility] Comment on above: Performed By: #### L 500.2500, L100.0500 ####[facility] [address] [place], [address] CO2 [Moles/Vol] 22.6 mmol/L Normal 21.0-32.0 [facility] Comment on above: Performed By: #### L 500.2500, L100.0500 ####[facility] [address] [place], [address] Creatinine [Mass/Vol] 1.04 mg/dL Normal 0.70-1.20 [facility] Comment on above: Performed By: #### L 500.2500, L100.0500 ####[facility] [address] [place], [address] ECRCL 51.67 ml/min Normal 50-250 [facility] Comment on above: Performed By: #### L 500.2500, L100.0500 ####[facility] [address] [place], [address] GAP 11 Normal 5-15 [facility] Comment on above: Performed By: #### L 500.2500, L100.0500 ####[facility] [address] [place], [address] GFR/1.73 sq M.predicted among non-blacks MDRD (S/P/Bld) [Vol rate/Area] 69 mL/min/{1.73_m2} Normal >60 [facility] Comment on above: Result Comment: mL/m in/1.73m2 CKD-EPI Creatinine Equation (2020) Performed By: #### L 500.2500, L100.0500 ####[facility] [address] [place], [address] Glucose [Mass/Vol] 122 mg/dL High 70-99 [facility] Comment on above: Performed By: #### L 500.2500, L100.0500 ####[facility] [address] [place], [address] Potassium [Moles/Vol] 3.8 mmol/L Normal 3.3-5.1 [facility] Comment on above: Result Comment: Hemo lysis present, Results??could be affected.?? Performed By: #### L 500.2500, L100.0500 ####[facility] [address] [place], [address] Sodium [Moles/Vol] 142 mmol/L Normal 133-145 [facility] Comment on above: Performed By: #### L 500.2500, L100.0500 ####[facility] [address] [place], [address] Urea nitrogen [Mass/Vol] 24 mg/dL High 4-19 [facility] Comment on above: Performed By: #### L 500.2500, L100.0500 ####[facility] [address] [place], [address] Bedside Glucoseon 12-19-2024 FINGERSTICK GLU 117 mg/dL High 74-106 [facility] Comment on above: Result Comment: RADHA MENDOZA OF PATIENT CARE PER NURSING PROTOCOL Performed By: #### L 501.080 ####[facility] [address] [place], [address] CBC-Complete Blood Cnt No Di ffon 12-19-2024 Erythrocyte distribution width (RBC) [Ratio] 13.2 % Normal 11.6-14.6 [facility] Comment on above: Performed By: #### L 500.2500, L100.0500 ####[facility] [address] [place], [address] Hematocrit (Bld) [Volume fraction] 35.8 % Low 40-54 [facility] Comment on above: Performed By: #### L 500.2500, L100.0500 ####[facility] [address] [place], [address] Hemoglobin (Bld) [Mass/Vol] 12.1 g/dL Low 13.0-16.5 [facility] Comment on above: Performed By: #### L 500.2500, L100.0500 ####[facility] [address] [place], [address] MCH (RBC) [Entitic mass] 34.8 pg High 27.0-32.0 [facility] Comment on above: Performed By: #### L 500.2500, L100.0500 ####[facility] [address] [place], [address] MCHC (RBC) [Mass/Vol] 33.8 g/dL Normal 32-36 [facility] Comment on above: Performed By: #### L 500.2500, L100.0500 ####[facility] [address] [place], [address] MCV (RBC) [Entitic vol] 102.9 fL High 80-94 [facility] Comment on above: Performed By: #### L 500.2500, L100.0500 ####[facility] [address] [place], [address] Platelet mean volume (Bld) [Entitic vol] 10.1 fL Normal 6.2-12.0 [facility] Comment on above: Performed By: #### L 500.2500, L100.0500 ####[facility] [address] [place], [address] Platelets (Bld) [#/Vol] 127 10*3/uL Low 150-450 [facility] Comment on above: Performed By: #### L 500.2500, L100.0500 ####[facility] [address] [place], [address] RBC (Bld) [#/Vol] 3.48 10*6/uL Low 4.6-6.2 [facility] Comment on above: Performed By: #### L 500.2500, L100.0500 ####[facility] [address] [place], [address] RDW SD 49.3 fl High 35.1-43.9 [facility] Comment on above: Performed By: #### L 500.2500, L100.0500 ####[facility] [address] [place], [address] WBC (Bld) [#/Vol] 7.3 10*3/uL Normal 4.4-11.0 [facility] Comment on above: Performed By: #### L 500.2500, L100.0500 ####[facility] [address] [place], [address] Consultation - Orthopedicson 12-19-2024 Consultation - Orthopedics Normal [facility] Electrocardiogram reportOrde red By: Yadiel Bettencourt on 12-19-2024 EKG study [facility] [address] [place] [address] 12 Lead EKG 12/18/24 1428 MR#: [id number] Acct: [id number] Name: JESS JAMES Rep #:[id number] : 1935 89 From: Yadiel Bettencourt MD Attending Dr: Dr. Radha Cope DO S tatus: ADM IN Ordering Dr: Win Alberto DO Date: 0 12/18/24 Location: [facility] Sex: M C Admitted: 12/18/24 Test Reason [...] bundle branch block Abnormal ECG Confirmed by YADIEL BETTENCOURT MD ([id number]), proposal editor LETY GAMBOA ([id number]) on 51:02:09 PM Referred By: Confirmed By: YADIEL BETTENCOURT MD 12/19/24 1302 Date _ Yadiel Bettencourt MD CC: Dr. Dyan Kyle MD; Dr. Win Alberto DO; Dr. Radha Cope DO ~ Signed [facility] Other Glucose measurement at bedsi deOrdered By: Radha Cope on 12-19-2024 Glucose [Mass/Vol] 117 mg/dL High 74-106 [facility] Comment on above: MANAGEMENT OF PATIEN T CARE PER NURSING PROTOCOL Hip 1 view with Pelvison Hip 1 view with Pelvis Normal [facility] MR/POSTOP.ANEon 12-19-2024 MR/POSTOP.ANE Normal [facility] MR/XGXRXMAS4ze 12-19-2024 MR/POSTOPAN2 Normal [facility] Operative Reporton Operative Report Normal [facility] Type AND Screenon 12-19-2024 ABO and Rh group Nom (Bld) Blood group A Rh(D) negative Normal [facility] Comment on above: Order Comment: S Performed By: #### B TS ####[facility] [address] [place], [address] 12 Lead EKGon 12-18-2024 12 Lead EKG Normal [facility] Absolute lymphocyte countOrd ered By: Win Alberto on 12-18-2024 Lymphocytes Auto (Unsp spec) [#/Vol] 1.75 10*3/uL 0.83-4.51 [facility] Absolute neutrophil countOrd ered By: Win Alberto on 12-18-2024 Neutrophils (Bld) [#/Vol] 4.0 10*3/uL 2.0-7.7 [facility] Activated partial thrombopla stin time (aPTT) in platelet poor plasma by coagulation aOrdered By: Amado Jean on 12-18-2024 aPTT Coag (PPP) [Time] 30.4 s 24.1-36.2 [facility] Anion gap in Serum or Plasma Ordered By: Win Alberto on 12-18-2024 Anion gap [Moles/Vol] 12 mmol/L 5-15 [facility] Automated lymphocyte count a s percentage of total leukocytesOrdered By: Win Alberto on 12-18-2024 Lymphocytes/100 WBC Auto (Unsp spec) 28.2 % 19-41 [facility] BUN/creatinine ratioOrdered By: Win Alberto on 12-18-2024 Urea nitrogen/Creatinine [Mass ratio] 23.4 mg/mg High 10-20 [facility] Basic Metabolic Profile (BMP )on 12-18-2024 BUN/CRE 23.4 RATIO High - [facility] Comment on above: Performed By: #### L 100.0100, L500.2500 ####[facility] [address] [place], [address] Calcium [Mass/Vol] 8.7 mg/dL Normal 7.6-11.0 [facility] Comment on above: Performed By: #### L 100.0100, L500.2500 ####[facility] [address] [place], [address] Chloride [Moles/Vol] 110 mmol/L High 98-108 [facility] Comment on above: Performed By: #### L 100.0100, L500.2500 ####[facility] [address] [place], [address] CO2 [Moles/Vol] 19.5 mmol/L Low 21.0-32.0 [facility] Comment on above: Performed By: #### L 100.0100, L500.2500 ####[facility] [address] [place], [address] Creatinine [Mass/Vol] 1.05 mg/dL Normal 0.70-1.20 [facility] Comment on above: Performed By: #### L 100.0100, L500.2500 ####[facility] [address] [place], [address] ECRCL 51.18 ml/min Normal 50-250 [facility] Comment on above: Performed By: #### L 100.0100, L500.2500 ####[facility] [address] [place], [address] GAP 12 Normal 5-15 [facility] Comment on above: Performed By: #### L 100.0100, L500.2500 ####[facility] [address] [place], [address] GFR/1.73 sq M.predicted among non-blacks MDRD (S/P/Bld) [Vol rate/Area] 69 mL/min/{1.73_m2} Normal >60 [facility] Comment on above: Result Comment: mL/m in/1.73m2 CKD-EPI Creatinine Equation (2020) Performed By: #### L 100.0100, L500.2500 ####[facility] [address] [place], [address] Glucose [Mass/Vol] 114 mg/dL High 70-99 [facility] Comment on above: Performed By: #### L 100.0100, L500.2500 ####[facility] [address] [place], [address] Potassium [Moles/Vol] 4.2 mmol/L Normal 3.3-5.1 [facility] Comment on above: Result Comment: Hemo lysis present, Results??could be affected.?? Performed By: #### L 100.0100, L500.2500 ####[facility] [address] [place], [address] Sodium [Moles/Vol] 142 mmol/L Normal 133-145 [facility] Comment on above: Performed By: #### L 100.0100, L500.2500 ####[facility] [address] [place], [address] Urea nitrogen [Mass/Vol] 25 mg/dL High 4-19 [facility] Comment on above: Performed By: #### L 100.0100, L500.2500 ####[facility] [address] [place], [address] Basophil percentageOrdered B y: Win Alberto on 12-18-2024 Basophils/100 WBC (Bld) 0.3 % 0-1 [facility] Bilirubin Test strip Ql (U)O rdered By: Win Alberto on 12-18-2024 Bilirubin Ql (U) Negative Negative [facility] Bilirubin directOrdered By: Amado Jean on 12-18-2024 Bilirubin.direct [Mass/Vol] 0.21 mg/dL 0.00-0.30 [facility] Comment on above: Hemolysis present, R esults could be affected. Bilirubin, totalOrdered By: Amado Jean on 12-18-2024 Bilirubin [Mass/Vol] 0.51 mg/dL 0.00-1.30 [facility] CBC W/Diff, Automatedon 11-22 Absolute Lymph 1.75 X10 3/uL Normal 0.83-4.51 [facility] Comment on above: Performed By: #### L 100.0100, L500.2500 ####[facility] [address] [place], [address] Absolute Neut 4.0 X10 3/uL Normal 2.0-7.7 [facility] Comment on above: Performed By: #### L 100.0100, L500.2500 ####[facility] [address] [place], [address] Basophils/100 WBC (Bld) 0.3 % Normal 0-1 [facility] Comment on above: Performed By: #### L 100.0100, L500.2500 ####[facility] [address] [place], [address] Eosinophils/100 WBC (Bld) 1.1 % Normal 0-5 [facility] Comment on above: Performed By: #### L 100.0100, L500.2500 ####[facility] [address] [place], [address] Erythrocyte distribution width (RBC) [Ratio] 13.1 % Normal 11.6-14.6 [facility] Comment on above: Performed By: #### L 100.0100, L500.2500 ####[facility] [address] [place], [address] Hematocrit (Bld) [Volume fraction] 39.9 % Low 40-54 [facility] Comment on above: Performed By: #### L 100.0100, L500.2500 ####[facility] [address] [place], [address] Hemoglobin (Bld) [Mass/Vol] 13.3 g/dL Normal 13.0-16.5 [facility] Comment on above: Performed By: #### L 100.0100, L500.2500 ####[facility] [address] [place], [address] IG% 0.600 Normal 0.0-0.9 [facility] Comment on above: Result Comment: IG% - Immature Granulocytes (promyelocytes, myelocytes andmetamyelocytes) > 1% indicates that a LEFT SHIFT is Present. Performed By: #### L 100.0100, L500.2500 ####[facility] [address] [place], [address] Lymphocytes/100 WBC (Bld) 28.2 % Normal 19-41 [facility] Comment on above: Performed By: #### L 100.0100, L500.2500 ####[facility] [address] [place], [address] MCH (RBC) [Entitic mass] 34.8 pg High 27.0-32.0 [facility] Comment on above: Performed By: #### L 100.0100, L500.2500 ####[facility] [address] [place], [address] MCHC (RBC) [Mass/Vol] 33.3 g/dL Normal 32-36 [facility] Comment on above: Performed By: #### L 100.0100, L500.2500 ####[facility] [address] [place], [address] MCV (RBC) [Entitic vol] 104.5 fL High 80-94 [facility] Comment on above: Performed By: #### L 100.0100, L500.2500 ####[facility] [address] [place], [address] Monocytes/100 WBC (Bld) 5.6 % Normal 0-10 [facility] Comment on above: Performed By: #### L 100.0100, L500.2500 ####[facility] [address] [place], [address] Neutrophils/100 WBC (Bld) 64.2 % Normal 47-70 [facility] Comment on above: Performed By: #### L 100.0100, L500.2500 ####[facility] [address] [place], [address] Nucleated RBC (Bld) [#/Vol] 0 10*3/uL Normal 0-5 [facility] Comment on above: Performed By: #### L 100.0100, L500.2500 ####[facility] [address] [place], [address] Platelet mean volume (Bld) [Entitic vol] 9.5 fL Normal 6.2-12.0 [facility] Comment on above: Performed By: #### L 100.0100, L500.2500 ####[facility] [address] [place], [address] Platelets (Bld) [#/Vol] 120 10*3/uL Low 150-450 [facility] Comment on above: Performed By: #### L 100.0100, L500.2500 ####[facility] [address] [place], [address] RBC (Bld) [#/Vol] 3.82 10*6/uL Low 4.6-6.2 [facility] Comment on above: Performed By: #### L 100.0100, L500.2500 ####[facility] [address] [place], [address] RDW SD 50.2 fl High 35.1-43.9 [facility] Comment on above: Performed By: #### L 100.0100, L500.2500 ####[facility] [address] [place], [address] WBC (Bld) [#/Vol] 6.2 10*3/uL Normal 4.4-11.0 [facility] Comment on above: Performed By: #### L 100.0100, L500.2500 ####[facility] [address] [place], [address] Carbon dioxide, total [Moles /volume] in Central venous bloodOrdered By: Win Alberto on 12-18-2024 CO2 [Moles/Vol] 19.5 mmol/L Low 21.0-32.0 [facility] Chest 1 Viewon 12-18-2024 Chest 1 View Normal [facility] Chloride assayOrdered By: Derek Alberto on 12-18-2024 Chloride [Moles/Vol] 110 mmol/L High 98-108 [facility] Emergency Department Summary on 12-18-2024 Emergency Department Summary Normal [facility] Eosinophil percentageOrdered By: Win Alberto on 12-18-2024 Eosinophils/100 WBC (Bld) 1.1 % 0-5 [facility] Erythrocyte distribution wid th ratioOrdered By: Win Alberto on 12-18-2024 Erythrocyte distribution width (RBC) [Ratio] 13.1 % 11.6-14.6 [facility] Erythrocyte distribution wid th standard deviationOrdered By: Win Alberto on 12-18-2024 Erythrocyte distribution width (RBC) [Ratio] 50.2 fl High 35.1-43.9 [facility] Glomerular filtration rate ( GFR) estimation/1.73 sq m using serum, plasma, or whole bOrdered By: Win Alberto on 12-18-2024 GFR/1.73 sq M.predicted among non-blacks MDRD (S/P/Bld) [Vol rate/Area] 69 mL/min/{1.73_m2} >60 [facility] Comment on above: mL/min/1.73m2 CKD-EP I Creatinine Equation (2020) H AND P Exam - Hospitaliston 12-18-2024 H&P Exam - Hospitalist Normal [facility] HIP, UNI W/ Pelvis 2-3 Views on 12-18-2024 HIP, UNI W/ Pelvis 2-3 Views Normal [facility] Hematocrit Auto (Bld) [Volum e fraction]Ordered By: Win Alberto on 12-18-2024 Hematocrit (Bld) [Volume fraction] 39.9 % Low 40-54 [facility] Hemoglobin measurementOrdere d By: Win Alberto on 12-18-2024 Hemoglobin (Bld) [Mass/Vol] 13.3 g/dL 13.0-16.5 [facility] Immature granulocytes/100 WB C Auto (Bld)Ordered By: Win Alberto on 12-18-2024 Immature granulocytes/100 WBC (Bld) 0.600 % 0.0-0.9 [facility] Comment on above: IG% - Immature Granu locytes (promyelocytes, myelocytes and metamyelocytes) > 1% indicates that a LEFT SHIFT is Present. International normalized rat io (INR) calculationOrdered By: Amado Jean on 12-18-2024 INR Coag (Bld) [Relative time] 1.1 {INR} [facility] Ketones Test strip Ql (U)Ord ered By: Win Alberto on 12-18-2024 Ketones Ql (U) 15 mg/dl High Negative [facility] Laboratory - Chemistry and C hemistry - challengeOrdered By: Amado Jean on 12-18-2024 AST [Catalytic activity/Vol] 17 U/L <38 [facility] Comment on above: Hemolysis present, R esults could be affected. Liver Profileon 12-18-2024 Albumin [Mass/Vol] 3.3 g/dL Low 3.4-4.8 [facility] Comment on above: Performed By: #### L 500.9640, L503.7505 ####[facility] [address] [place], [address] ALK PHOS 44 U/L Normal 40-129 [facility] Comment on above: Performed By: #### L 500.3400, L503.7505 ####[facility] [address] [place], [address] ALT [Catalytic activity/Vol] 7 U/L Normal <=46 [facility] Comment on above: Performed By: #### L 500.3400, L503.7505 ####[facility] [address] [place], [address] AST [Catalytic activity/Vol] 17 U/L Normal <=37 [facility] Comment on above: Result Comment: Hemo lysis present, Results??could be affected.?? Performed By: #### L 500.3400, L503.7505 ####[facility] [address] [place], [address] Bilirubin [Mass/Vol] 0.51 mg/dL Normal 0.00-1.30 [facility] Comment on above: Performed By: #### L 500.3400, L503.7505 ####[facility] [address] [place], [address] Bilirubin.direct [Mass/Vol] 0.21 mg/dL Normal 0.00-0.30 [facility] Comment on above: Result Comment: Hemo lysis present, Results??could be affected.?? Performed By: #### L 500.3400, L503.7505 ####[facility] [address] [place], [address] Globulin (S) [Mass/Vol] 2.7 g/dL Normal 2.2-4.2 [facility] Comment on above: Performed By: #### L 500.3400, L503.7505 ####[facility] [address] [place], [address] T PROT 6.0 g/dL Normal 5.9-8.4 [facility] Comment on above: Performed By: #### L 500.3400, L503.7505 ####[facility] [address] [place], [place], [id number] MCV (mean corpuscular volume ) determinationOrdered By: Win Alberto on 12-18-2024 MCV (RBC) [Entitic vol] 104.5 fL High 80-94 [facility] Mean corpuscular hemoglobin (MCH) determinationOrdered By: Win Alberto on 12-18-2024 MCH (RBC) [Entitic mass] 34.8 pg High 27.0-32.0 [facility] Mean corpuscular hemoglobin concentration (MCHC) determinationOrdered By: Win Alberto on 12-18-2024 MCHC (RBC) [Mass/Vol] 33.3 g/dL 32-36 [facility] Mean platelet volume determi nationOrdered By: Win Alberto on 12-18-2024 Platelet mean volume (Bld) [Entitic vol] 9.5 fL 6.2-12.0 [facility] Microscopic analysis of urin e for red blood cells (RBC)Ordered By: Win Alberto on 12-18-2024 Microscopic analysis of urine for red blood cells (RBC) 0-5 SEEN /hpf 0-5 [facility] Monocyte percentageOrdered B y: Win Alberto on 12-18-2024 Monocytes/100 WBC (Bld) 5.6 % 0-10 [facility] Mucus LM Ql (Urine sed)Order ed By: Win Alberto on 12-18-2024 Mucus Ql (Urine sed) 0 SEEN /hpf [facility] Natriuretic peptide.B prohor leo N-Terminal [Mass/volume] in Serum or PlasmaOrdered By: Amado Jean on 12-18-2024 Natriuretic peptide.B prohormone N-Terminal [Mass/Vol] 1126 pg/mL <1800 [facility] Comment on above: Heart Failure Unlike ly: < 300 pg/mLHeart Failure Likely< 50 Years: > 450 pg/mL50-75 Years: > 900 pg/mL>75 Years: > 1800 pg/mL Neutrophil percentageOrdered By: Win Alberto on 12-18-2024 Neutrophils/100 WBC (Bld) 64.2 % 47-70 [facility] Nitrite Test strip Ql (U)Ord ered By: Win Alberto on 12-18-2024 Nitrite Ql (U) Negative Negative [facility] No Panel InformationOrdered By: Amado Jean on 12-18-2024 17 U/L <38 [facility] Nucleated red blood cell per centageOrdered By: Win Alberto on 12-18-2024 Nucleated RBC/100 WBC (Bld) [Ratio] 0 % 0-5 [facility] Partial Thromboplast Timeon 12-18-2024 aPTT Coag (Bld) [Time] 30.4 s Normal 24.1-36.2 [facility] Comment on above: Performed By: #### L 300.3900, L300.4310 ####[facility] [address] [place], [place], [id number] Platelet countOrdered By: Derek Alberto on 12-18-2024 Platelets (Bld) [#/Vol] 120 10*3/uL Low 150-450 [facility] Potassium measurement (mass/ volume)Ordered By: Win Alberto on 12-18-2024 Potassium (Unsp spec) [Mass/Vol] 4.2 mmol/L 3.3-5.1 [facility] Comment on above: Hemolysis present, R esults could be affected. Pro- Brain NATRIURETIC PEPTI Rylee 12-18-2024 Natriuretic peptide B (Bld) [Mass/Vol] 1126 pg/mL Normal <=1800 [facility] Comment on above: Result Comment: Hear t Failure Unlikely: < 300 pg/mLHeart Failure Likely< 50 Years: > 450 pg/mL50-75 Years: > 900 pg/mL>75 Years: > 1800 pg/mL Performed By: #### L 500.3400, L503.7505 ####[facility] [address] [place], [address] Protein Test strip Ql (U)Ord ered By: Win Alberto on 12-18-2024 Protein Ql (U) 15 mg/dl High Negative [facility] Prothrombin Time w/INRon 07- 28-2025 INR Coag (PPP) [Relative time] 1.1 {INR} Normal [facility] Comment on above: Performed By: #### L 300.3900, L300.4310 ####[facility] [address] [place], [address] PT Coag (PPP) [Time] 14.8 s Normal 11.7-14.9 [facility] Comment on above: Performed By: #### L 300.3900, L300.4310 ####[facility] [address] [place], [address] Prothrombin timeOrdered By: Amado Jean on 12-18-2024 PT Coag (PPP) [Time] 14.8 s 11.7-14.9 [facility] RBC Auto (Bld) [#/Vol]Ordere d By: Win Alberto on 12-18-2024 RBC (Bld) [#/Vol] 3.82 10*6/uL Low 4.6-6.2 [facility] Serum creatinine measurement (mass/volume)Ordered By: Win Alberto on 12-18-2024 Creatinine [Mass/Vol] 1.05 mg/dL 0.70-1.20 [facility] Serum globulin measurementOr dered By: Amado Jean on 12-18-2024 Globulin (S) [Mass/Vol] 2.7 g/dL 2.2-4.2 [facility] Serum glucose measurement (m ass/volume)Ordered By: Win Alberto on 12-18-2024 Glucose [Mass/Vol] 114 mg/dL High 70-99 [facility] Serum or plasma alanine rausch otransferase (ALT) measurementOrdered By: Amado Jean on 12-18-2024 ALT [Catalytic activity/Vol] 7 U/L <47 [facility] Serum or plasma albumin patricia urement (mass/volume)Ordered By: Amado Jean on 12-18-2024 Albumin [Mass/Vol] 3.3 g/dL Low 3.4-4.8 [facility] Serum or plasma alkaline martín sphatase measurementOrdered By: Amado Jean on 12-18-2024 ALP [Catalytic activity/Vol] 44 U/L 40-129 [facility] Serum or plasma calcium patricia urement (mass/volume)Ordered By: Win Alberto on 12-18-2024 Calcium [Mass/Vol] 8.7 mg/dL 7.6-11.0 [facility] Serum or plasma urea nitroge n measurement (mass/volume)Ordered By: Win Alberto on 12-18-2024 Urea nitrogen [Mass/Vol] 25 mg/dL High 4-19 [facility] Sodium levelOrdered By: Win Alberto on 12-18-2024 Sodium [Moles/Vol] 142 mmol/L 133-145 [facility] Squamous epithelial cells de tection in urine sediment by light microscopyOrdered By: Win Alberto on 12-18-2024 Epithelial cells.squamous LM Ql (Urine sed) 0 SEEN /hpf 0-5 [facility] Total proteinOrdered By: Alysia Jean on 12-18-2024 Protein [Mass/Vol] 6.0 g/dL 5.9-8.4 [facility] Urinalysis, Completeon 12-18 RBC 0-5 SEEN Normal 0-5 [facility] Comment on above: Order Comment: CLEAN CATCH Performed By: #### L 400.0001 ####[facility] [address] [facility] [address] BACTERIA 0 SEEN Normal None Seen [facility] Comment on above: Order Comment: CLEAN CATCH Performed By: #### L 400.0001 ####[facility] [address] [facility] [address] EPI,SQUAMOUS 0 SEEN Normal 0-5 [facility] Comment on above: Order Comment: CLEAN CATCH Performed By: #### L 400.0001 ####[facility] [address] [place], [address] Mucus Ql (Urine sed) 0 SEEN Normal [facility] Comment on above: Order Comment: CLEAN CATCH Performed By: #### L 400.0001 ####[facility] [address] [place], [address] WBC 0 SEEN Normal 0-5 [facility] Comment on above: Order Comment: CLEAN CATCH Performed By: #### L 400.0001 ####[facility] [address] [place], [address] Urine clarityOrdered By: Cindy Alberto on 12-18-2024 Clarity (U) Clear Clear [facility] Urine color determinationOrd ered By: Win Alberto on 12-18-2024 Color (U) Yellow Yellow [facility] Urine glucose detectionOrder ed By: Win Alberto on 12-18-2024 Glucose Ql (U) 1000 mg/dl High Normal [facility] Urine leukocyte esterase det ection by dipstickOrdered By: Win Alberto on 12-18-2024 Leukocyte esterase Test strip Ql (U) Negative Negative [facility] Urine pHOrdered By: Win yu on 12-18-2024 pH (U) 7.0 [pH] 5.0 - 8.0 [facility] Urine sediment bacteria coun t by microscopy (number/high power field)Ordered By: Win Alberto on 12-18-2024 Bacteria LM.HPF (Urine sed) [#/Area] 0 /[HPF] None Seen [facility] Urine specific gravity measu rementOrdered By: Win Alberto on 12-18-2024 Specific gravity (U) [Rel density] 1.010 1.002-1.030 [facility] Urine urobilinogen measureme ntOrdered By: Win Alberto on 12-18-2024 Urobilinogen Ql (U) Normal mg/dl Normal [facility] White blood cell (WBC) count Ordered By: Win Alberto on 12-18-2024 WBC (Bld) [#/Vol] 6.2 10*3/uL 4.4-11.0 [facility] White blood cell countOrdere d By: Win Alberto on 12-18-2024 White blood cell count 0 SEEN /hpf 0-5 [facility] Absolute lymphocyte countOrd ered By: Carolina Mcgee on 11-07-2024 Lymphocytes Auto (Unsp spec) [#/Vol] 2.56 10*3/uL 0.83-4.51 [facility] Absolute neutrophil countOrd ered By: [facility] on 11-07-2024 Neutrophils (Bld) [#/Vol] 2.3 10*3/uL 2.0-7.7 [facility] Anion gap in Serum or Plasma Ordered By: Carolina Mcgee on 11-07-2024 Anion gap [Moles/Vol] 11 mmol/L 5-15 [facility] Automated lymphocyte count a s percentage of total leukocytesOrdered By: Carolina Mcgee on 11-07-2024 Lymphocytes/100 WBC Auto (Unsp spec) 45.7 % High 19-41 [facility] BUN/creatinine ratioOrdered By: [facility] Arely on 11-07-2024 Urea nitrogen/Creatinine [Mass ratio] 23.8 mg/mg High 10-20 [facility] Basophil percentageOrdered B y: Carolina Mcgee on 11-07-2024 Basophils/100 WBC (Bld) 0.5 % 0-1 [facility] Bilirubin, totalOrdered By: Carolina Mcgee on 11-07-2024 Bilirubin [Mass/Vol] 0.55 mg/dL 0.00-1.30 [facility] CBC W/Diff, Automatedon 10-22 Absolute Lymph 2.56 X10 3/uL Normal 0.83-4.51 [facility] Comment on above: Performed By: #### L 501.9940, L100.0100, L500.4050 ####[facility] [address] [place], [address] Absolute Neut 2.3 X10 3/uL Normal 2.0-7.7 [facility] Comment on above: Performed By: #### L 501.9940, L100.0100, L500.4050 ####[facility] [address] [place], [address] Basophils/100 WBC (Bld) 0.5 % Normal 0-1 [facility] Comment on above: Performed By: #### L 501.9940, L100.0100, L500.4050 ####[facility] [address] [place], [address] Eosinophils/100 WBC (Bld) 3.0 % Normal 0-5 [facility] Comment on above: Performed By: #### L 501.9940, L100.0100, L500.4050 ####[facility] [address] [place], [address] Erythrocyte distribution width (RBC) [Ratio] 13.5 % Normal 11.6-14.6 [facility] Comment on above: Performed By: #### L 501.9940, L100.0100, L500.4050 ####[facility] [address] [place], [address] Hematocrit (Bld) [Volume fraction] 39.6 % Low 40-54 [facility] Comment on above: Performed By: #### L 501.9940, L100.0100, L500.4050 ####[facility] [address] [place], [address] Hemoglobin (Bld) [Mass/Vol] 13.4 g/dL Normal 13.0-16.5 [facility] Comment on above: Performed By: #### L 501.9940, L100.0100, L500.4050 ####[facility] [address] [place], [address] IG% 0.700 Normal 0.0-0.9 [facility] Comment on above: Result Comment: IG% - Immature Granulocytes (promyelocytes, myelocytes andmetamyelocytes) > 1% indicates that a LEFT SHIFT is Present. Performed By: #### L 501.9940, L100.0100, L500.4050 ####[facility] [address] [place], [address] Lymphocytes/100 WBC (Bld) 45.7 % High 19-41 [facility] Comment on above: Performed By: #### L 501.9940, L100.0100, L500.4050 ####[facility] [address] [place], [address] MCH (RBC) [Entitic mass] 34.3 pg High 27.0-32.0 [facility] Comment on above: Performed By: #### L 501.9940, L100.0100, L500.4050 ####[facility] [address] [place], [address] MCHC (RBC) [Mass/Vol] 33.8 g/dL Normal 32-36 [facility] Comment on above: Performed By: #### L 501.9940, L100.0100, L500.4050 ####[facility] [address] [place], [address] MCV (RBC) [Entitic vol] 101.3 fL High 80-94 [facility] Comment on above: Performed By: #### L 501.9940, L100.0100, L500.4050 ####[facility] [address] [place], [address] Monocytes/100 WBC (Bld) 9.1 % Normal 0-10 [facility] Comment on above: Performed By: #### L 501.9940, L100.0100, L500.4050 ####[facility] [address] [place], [address] Neutrophils/100 WBC (Bld) 41.0 % Low 47-70 [facility] Comment on above: Performed By: #### L 501.9940, L100.0100, L500.4050 ####[facility] [address] [place], [address] Nucleated RBC (Bld) [#/Vol] 0 10*3/uL Normal 0-5 [facility] Comment on above: Performed By: #### L 501.9940, L100.0100, L500.4050 ####[facility] [address] [place], [address] Platelet mean volume (Bld) [Entitic vol] 9.1 fL Normal 6.2-12.0 [facility] Comment on above: Performed By: #### L 501.9940, L100.0100, L500.4050 ####[facility] [address] [place], [address] Platelets (Bld) [#/Vol] 153 10*3/uL Normal 150-450 [facility] Comment on above: Performed By: #### L 501.9940, L100.0100, L500.4050 ####[facility] [address] [place], [address] RBC (Bld) [#/Vol] 3.91 10*6/uL Low 4.6-6.2 [facility] Comment on above: Performed By: #### L 501.9940, L100.0100, L500.4050 ####[facility] [address] [place], [address] RDW SD 50.3 fl High 35.1-43.9 [facility] Comment on above: Performed By: #### L 501.9940, L100.0100, L500.4050 ####[facility] [address] [place], [address] WBC (Bld) [#/Vol] 5.6 10*3/uL Normal 4.4-11.0 [facility] Comment on above: Performed By: #### L 501.9940, L100.0100, L500.4050 ####[facility] [address] [place], [address] Carbon dioxide, total [Moles /volume] in Central venous bloodOrdered By: Carolina Mcgee on 11-07-2024 CO2 [Moles/Vol] 22.5 mmol/L 21.0-32.0 [facility] Chloride assayOrdered By: Sánchez Mcgee on 11-07-2024 Chloride [Moles/Vol] 111 mmol/L High 98-108 [facility] Comprehensive Metabolic Prof ilon 11-07-2024 Albumin [Mass/Vol] 3.8 g/dL Normal 3.4-4.8 [facility] Comment on above: Performed By: #### L 501.9940, L100.0100, L500.4050 ####[facility] [address] [place], [address] Albumin/Globulin [Mass ratio] 1.3 {ratio} Normal 0.9-2.4 [facility] Comment on above: Performed By: #### L 501.9940, L100.0100, L500.4050 ####[facility] [address] [place], [address] ALK PHOS 51 U/L Normal 40-129 [facility] Comment on above: Performed By: #### L 501.9940, L100.0100, L500.4050 ####[facility] [address] [place], [address] ALT [Catalytic activity/Vol] U/L Normal <=46 [facility] Comment on above: Performed By: #### L 501.9940, L100.0100, L500.4050 ####[facility] [address] [place], [address] AST [Catalytic activity/Vol] 15 U/L Normal <=37 [facility] Comment on above: Performed By: #### L 501.9940, L100.0100, L500.4050 ####[facility] [address] [place], [address] Bilirubin [Mass/Vol] 0.55 mg/dL Normal 0.00-1.30 [facility] Comment on above: Performed By: #### L 501.9940, L100.0100, L500.4050 ####[facility] [address] [place], [address] BUN/CRE 23.8 RATIO High 10-20 [facility] Comment on above: Performed By: #### L 501.9940, L100.0100, L500.4050 ####[facility] [address] [place], [address] Calcium [Mass/Vol] 8.9 mg/dL Normal 7.6-11.0 [facility] Comment on above: Performed By: #### L 501.9940, L100.0100, L500.4050 ####[facility] [address] [place], [address] Chloride [Moles/Vol] 111 mmol/L High 98-108 [facility] Comment on above: Performed By: #### L 501.9940, L100.0100, L500.4050 ####[facility] [address] [place], [address] CO2 [Moles/Vol] 22.5 mmol/L Normal 21.0-32.0 [facility] Comment on above: Performed By: #### L 501.9940, L100.0100, L500.4050 ####[facility] [address] [place], [address] Creatinine [Mass/Vol] 0.90 mg/dL Normal 0.70-1.20 [facility] Comment on above: Performed By: #### L 501.9940, L100.0100, L500.4050 ####[facility] [address] [place], [address] ECRCL 59.71 ml/min Normal 50-250 [facility] Comment on above: Performed By: #### L 501.9940, L100.0100, L500.4050 ####[facility] [address] [place], [address] GAP 11 Normal 5-15 [facility] Comment on above: Performed By: #### L 501.9940, L100.0100, L500.4050 ####[facility] [address] [place], [address] GFR/1.73 sq M.predicted among non-blacks MDRD (S/P/Bld) [Vol rate/Area] 83 mL/min/{1.73_m2} Normal >60 [facility] Comment on above: Result Comment: mL/m in/1.73m2 CKD-EPI Creatinine Equation (2020) Performed By: #### L 501.9940, L100.0100, L500.4050 ####[facility] [address] [place], [address] Globulin (S) [Mass/Vol] 2.9 g/dL Normal 2.2-4.2 [facility] Comment on above: Performed By: #### L 501.9940, L100.0100, L500.4050 ####[facility] [address] [place], [address] Glucose [Mass/Vol] 107 mg/dL High 70-99 [facility] Comment on above: Performed By: #### L 501.9940, L100.0100, L500.4050 ####[facility] [address] [place], [address] Potassium [Moles/Vol] 4.2 mmol/L Normal 3.3-5.1 [facility] Comment on above: Performed By: #### L 501.9940, L100.0100, L500.4050 ####[facility] [address] [place], [address] Sodium [Moles/Vol] 145 mmol/L Normal 133-145 [facility] Comment on above: Performed By: #### L 501.9940, L100.0100, L500.4050 ####[facility] [address] [place], [address] T PROT 6.7 g/dL Normal 5.9-8.4 [facility] Comment on above: Performed By: #### L 501.9940, L100.0100, L500.4050 ####[facility] [address] [place], [address] Urea nitrogen [Mass/Vol] 21 mg/dL High 4-19 [facility] Comment on above: Performed By: #### L 501.9940, L100.0100, L500.4050 ####[facility] [address] [place], [address] Eosinophil percentageOrdered By: Carolina Mcgee on 11-07-2024 Eosinophils/100 WBC (Bld) 3.0 % 0-5 [facility] Erythrocyte distribution wid th ratioOrdered By: [facility] on 11-07-2024 Erythrocyte distribution width (RBC) [Ratio] 13.5 % 11.6-14.6 [facility] Erythrocyte distribution wid th standard deviationOrdered By: [facility] on 11-07-2024 Erythrocyte distribution width (RBC) [Ratio] 50.3 fl High 35.1-43.9 [facility] Glomerular filtration rate ( GFR) estimation/1.73 sq m using serum, plasma, or whole bOrdered By: [facility] on 11-07-2024 GFR/1.73 sq M.predicted among non-blacks MDRD (S/P/Bld) [Vol rate/Area] 83 mL/min/{1.73_m2} >60 [facility] Comment on above: mL/min/1.73m2 CKD-EP I Creatinine Equation (2020) Hematocrit Auto (Bld) [Volum e fraction]Ordered By: Carolina Mcgee on 11-07-2024 Hematocrit (Bld) [Volume fraction] 39.6 % Low 40-54 [facility] Hemoglobin measurementOrdere d By: Carolina Mcgee on 11-07-2024 Hemoglobin (Bld) [Mass/Vol] 13.4 g/dL 13.0-16.5 [facility] Immature granulocytes/100 WB C Auto (Bld)Ordered By: Carolina Mcgee on 11-07-2024 Immature granulocytes/100 WBC (Bld) 0.700 % 0.0-0.9 [facility] Comment on above: IG% - Immature Granu locytes (promyelocytes, myelocytes and metamyelocytes) > 1% indicates that a LEFT SHIFT is Present. Laboratory - Chemistry and C hemistry - challengeOrdered By: Carolina Mcgee on 11-07-2024 AST [Catalytic activity/Vol] 15 U/L <38 [facility] MCV (mean corpuscular volume ) determinationOrdered By: Carolina Mcgee on 11-07-2024 MCV (RBC) [Entitic vol] 101.3 fL High 80-94 [facility] Mean corpuscular hemoglobin (MCH) determinationOrdered By: Carolina Mcgee on 11-07-2024 MCH (RBC) [Entitic mass] 34.3 pg High 27.0-32.0 [facility] Mean corpuscular hemoglobin concentration (MCHC) determinationOrdered By: Carolina Mcgee on 11-07-2024 MCHC (RBC) [Mass/Vol] 33.8 g/dL 32-36 [facility] Mean platelet volume determi nationOrdered By: Carolina Mcgee on 11-07-2024 Platelet mean volume (Bld) [Entitic vol] 9.1 fL 6.2-12.0 [facility] Monocyte percentageOrdered B y: Carolina Mcgee on 11-07-2024 Monocytes/100 WBC (Bld) 9.1 % 0-10 [facility] Neutrophil percentageOrdered By: Carolina Mcgee on 11-07-2024 Neutrophils/100 WBC (Bld) 41.0 % Low 47-70 [facility] No Panel InformationOrdered By: Carolina Mcgee on 11-07-2024 15 U/L <38 [facility] Nucleated red blood cell per centageOrdered By: Carolina Mcgee on 11-07-2024 Nucleated RBC/100 WBC (Bld) [Ratio] 0 % 0-5 [facility] Oncology Visit Reporton 10-22 Oncology Visit Report Normal [facility] PSA,Total- Diagnosticon 10-22 PSA, DIAGNOSTIC < 0.02 Normal 0.00-4.00 [facility] Comment on above: Result Comment: This [...] Performed By: #### L 501.9940, L100.0100, L500.4050 ####[facility] [address] [place], [address] Platelet countOrdered By: Sánchez Mcgee on 11-07-2024 Platelets (Bld) [#/Vol] 153 10*3/uL 150-450 [facility] Potassium measurement (mass/ volume)Ordered By: Carolina Mcgee on 11-07-2024 Potassium (Unsp spec) [Mass/Vol] 4.2 mmol/L 3.3-5.1 [facility] RBC Auto (Bld) [#/Vol]Ordere d By: Carolina Mcgee on 11-07-2024 RBC (Bld) [#/Vol] 3.91 10*6/uL Low 4.6-6.2 [facility] Serum creatinine measurement (mass/volume)Ordered By: Carolina Mcgee on 11-07-2024 Creatinine [Mass/Vol] 0.90 mg/dL 0.70-1.20 [facility] Serum globulin measurementOr dered By: Carolina Mcgee on 11-07-2024 Globulin (S) [Mass/Vol] 2.9 g/dL 2.2-4.2 [facility] Serum glucose measurement (m ass/volume)Ordered By: Carolina Mcgee on 11-07-2024 Glucose [Mass/Vol] 107 mg/dL High 70-99 [facility] Serum or plasma alanine rausch otransferase (ALT) measurementOrdered By: Carolina Mcgee on 11-07-2024 ALT [Catalytic activity/Vol] U/L <47 [facility] Serum or plasma albumin patricia urement (mass/volume)Ordered By: Carolina Mcgee on 11-07-2024 Albumin [Mass/Vol] 3.8 g/dL 3.4-4.8 [facility] Serum or plasma albumin/glob ulin mass ratioOrdered By: Carolina Mcgee on 11-07-2024 Albumin/Globulin [Mass ratio] 1.3 {ratio} 0.9-2.4 [facility] Serum or plasma alkaline martín sphatase measurementOrdered By: Carolina Mcgee on 11-07-2024 ALP [Catalytic activity/Vol] 51 U/L 40-129 [facility] Serum or plasma calcium patricia urement (mass/volume)Ordered By: Carolina Mcgee on 11-07-2024 Calcium [Mass/Vol] 8.9 mg/dL 7.6-11.0 [facility] Serum or plasma urea nitroge n measurement (mass/volume)Ordered By: Carolina Mcgee on 11-07-2024 Urea nitrogen [Mass/Vol] 21 mg/dL High 4-19 [facility] Sodium levelOrdered By: Vaishnavi Mcgee on 11-07-2024 Sodium [Moles/Vol] 145 mmol/L 133-145 [facility] Total proteinOrdered By: Graham Mcgee on 11-07-2024 Protein [Mass/Vol] 6.7 g/dL 5.9-8.4 [facility] White blood cell (WBC) count Ordered By: Carolina Mcgee on 11-07-2024 WBC (Bld) [#/Vol] 5.6 10*3/uL 4.4-11.0 [facility] Internal Medicine Office Vis itolurdes 10-25-2024 Internal Medicine Office Visit Normal [facility] Laboratory - Hematology and Cell countsOrdered By: Dyan Kyle on 10-25-2024 HbA1c (Bld) [Mass fraction] 5.7 % 4.2-6.3 [facility] No Panel InformationOrdered By: Dyan Kyle on 10-25-2024 5.7 % 4.2-6.3 [facility] Absolute lymphocyte countOrd ered By: [facility] on 09-26-2024 Lymphocytes Auto (Unsp spec) [#/Vol] 2.33 10*3/uL 0.83-4.51 [facility] Absolute neutrophil countOrd ered By: [facility] Arely on 09-26-2024 Neutrophils (Bld) [#/Vol] 2.0 10*3/uL 2.0-7.7 [facility] Anion gap in Serum or Plasma Ordered By: [facility] on 09-26-2024 Anion gap [Moles/Vol] 10 mmol/L 5-15 [facility] Automated lymphocyte count a s percentage of total leukocytesOrdered By: [facility] on 09-26-2024 Lymphocytes/100 WBC Auto (Unsp spec) 46.6 % High 19-41 [facility] BUN/creatinine ratioOrdered By: [facility] Arely on 09-26-2024 Urea nitrogen/Creatinine [Mass ratio] 24.2 mg/mg High 10-20 [facility] Basophil percentageOrdered B y: Carolina Mcgee on 09-26-2024 Basophils/100 WBC (Bld) 0.6 % 0-1 [facility] Bilirubin, totalOrdered By: [facility] on 09-26-2024 Bilirubin [Mass/Vol] 0.54 mg/dL 0.00-1.30 [facility] CBC W/Diff, Automatedon Absolute Lymph 2.33 X10 3/uL Normal 0.83-4.51 [facility] Comment on above: Performed By: #### L 100.0100, L501.9940, L500.4050 ####[facility] [address] [place], [address] Absolute Neut 2.0 X10 3/uL Normal 2.0-7.7 [facility] Comment on above: Performed By: #### L 100.0100, L501.9940, L500.4050 ####[facility] [address] [place], [address] Basophils/100 WBC (Bld) 0.6 % Normal 0-1 [facility] Comment on above: Performed By: #### L 100.0100, L501.9940, L500.4050 ####[facility] [address] [place], [address] Eosinophils/100 WBC (Bld) 2.8 % Normal 0-5 [facility] Comment on above: Performed By: #### L 100.0100, L501.9940, L500.4050 ####[facility] [address] [place], [address] Erythrocyte distribution width (RBC) [Ratio] 13.4 % Normal 11.6-14.6 [facility] Comment on above: Performed By: #### L 100.0100, L501.9940, L500.4050 ####[facility] [address] [place], [address] Hematocrit (Bld) [Volume fraction] 40.2 % Normal 40-54 [facility] Comment on above: Performed By: #### L 100.0100, L501.9940, L500.4050 ####[facility] [address] [place], [address] Hemoglobin (Bld) [Mass/Vol] 13.4 g/dL Normal 13.0-16.5 [facility] Comment on above: Performed By: #### L 100.0100, L501.9940, L500.4050 ####[facility] [address] [place], [address] IG% 0.600 Normal 0.0-0.9 [facility] Comment on above: Result Comment: IG% - Immature Granulocytes (promyelocytes, myelocytes andmetamyelocytes) > 1% indicates that a LEFT SHIFT is Present. Performed By: #### L 100.0100, L501.9940, L500.4050 ####[facility] [address] [place], [address] Lymphocytes/100 WBC (Bld) 46.6 % High 19-41 [facility] Comment on above: Performed By: #### L 100.0100, L501.9940, L500.4050 ####[facility] [address] [place], [address] MCH (RBC) [Entitic mass] 34.4 pg High 27.0-32.0 [facility] Comment on above: Performed By: #### L 100.0100, L501.9940, L500.4050 ####[facility] [address] [place], [address] MCHC (RBC) [Mass/Vol] 33.3 g/dL Normal 32-36 [facility] Comment on above: Performed By: #### L 100.0100, L501.9940, L500.4050 ####[facility] [address] [place], [address] MCV (RBC) [Entitic vol] 103.1 fL High 80-94 [facility] Comment on above: Performed By: #### L 100.0100, L501.9940, L500.4050 ####[facility] [address] [place], [address] Monocytes/100 WBC (Bld) 8.8 % Normal 0-10 [facility] Comment on above: Performed By: #### L 100.0100, L501.9940, L500.4050 ####[facility] [address] [place], [address] Neutrophils/100 WBC (Bld) 40.6 % Low 47-70 [facility] Comment on above: Performed By: #### L 100.0100, L501.9940, L500.4050 ####[facility] [address] [place], [address] Nucleated RBC (Bld) [#/Vol] 0 10*3/uL Normal 0-5 [facility] Comment on above: Performed By: #### L 100.0100, L501.9940, L500.4050 ####[facility] [address] [place], [address] Platelet mean volume (Bld) [Entitic vol] 9.2 fL Normal 6.2-12.0 [facility] Comment on above: Performed By: #### L 100.0100, L501.9940, L500.4050 ####[facility] [address] [place], [address] Platelets (Bld) [#/Vol] 175 10*3/uL Normal 150-450 [facility] Comment on above: Performed By: #### L 100.0100, L501.9940, L500.4050 ####[facility] [address] [place], [address] RBC (Bld) [#/Vol] 3.90 10*6/uL Low 4.6-6.2 [facility] Comment on above: Performed By: #### L 100.0100, L501.9940, L500.4050 ####[facility] [address] [place], [address] RDW SD 51.2 fl High 35.1-43.9 [facility] Comment on above: Performed By: #### L 100.0100, L501.9940, L500.4050 ####[facility] [address] [place], [address] WBC (Bld) [#/Vol] 5.0 10*3/uL Normal 4.4-11.0 [facility] Comment on above: Performed By: #### L 100.0100, L501.9940, L500.4050 ####[facility] [address] [place], [address] Carbon dioxide, total [Moles /volume] in Central venous bloodOrdered By: Carolina Mcgee on 09-26-2024 CO2 [Moles/Vol] 25.9 mmol/L 21.0-32.0 [facility] Chloride assayOrdered By: Sánchez Mcgee on 09-26-2024 Chloride [Moles/Vol] 107 mmol/L 98-108 [facility] Comprehensive Metabolic Prof ilon 09-26-2024 Albumin [Mass/Vol] 3.7 g/dL Normal 3.4-4.8 [facility] Comment on above: Performed By: #### L 100.0100, L501.9940, L500.4050 ####[facility] [address] [place], [address] Albumin/Globulin [Mass ratio] 1.2 {ratio} Normal 0.9-2.4 [facility] Comment on above: Performed By: #### L 100.0100, L501.9940, L500.4050 ####[facility] [address] [place], [address] ALK PHOS 52 U/L Normal 40-129 [facility] Comment on above: Performed By: #### L 100.0100, L501.9940, L500.4050 ####[facility] [address] [place], [address] ALT [Catalytic activity/Vol] U/L Normal <=46 [facility] Comment on above: Performed By: #### L 100.0100, L501.9940, L500.4050 ####[facility] [address] [place], [address] AST [Catalytic activity/Vol] 16 U/L Normal <=37 [facility] Comment on above: Performed By: #### L 100.0100, L501.9940, L500.4050 ####[facility] [address] [place], [address] Bilirubin [Mass/Vol] 0.54 mg/dL Normal 0.00-1.30 [facility] Comment on above: Performed By: #### L 100.0100, L501.9940, L500.4050 ####[facility] [address] [place], [address] BUN/CRE 24.2 RATIO High 10-20 [facility] Comment on above: Performed By: #### L 100.0100, L501.9940, L500.4050 ####[facility] [address] [place], [address] Calcium [Mass/Vol] 9.0 mg/dL Normal 7.6-11.0 [facility] Comment on above: Performed By: #### L 100.0100, L501.9940, L500.4050 ####[facility] [address] [place], [address] Chloride [Moles/Vol] 107 mmol/L Normal 98-108 [facility] Comment on above: Performed By: #### L 100.0100, L501.9940, L500.4050 ####[facility] [address] [place], [address] CO2 [Moles/Vol] 25.9 mmol/L Normal 21.0-32.0 [facility] Comment on above: Performed By: #### L 100.0100, L501.9940, L500.4050 ####[facility] [address] [place], [address] Creatinine [Mass/Vol] 1.05 mg/dL Normal 0.70-1.20 [facility] Comment on above: Performed By: #### L 100.0100, L501.9940, L500.4050 ####[facility] [address] [place], [address] ECRCL 51.18 ml/min Normal 50-250 [facility] Comment on above: Performed By: #### L 100.0100, L501.9940, L500.4050 ####[facility] [address] [place], [address] GAP 10 Normal 5-15 [facility] Comment on above: Performed By: #### L 100.0100, L501.9940, L500.4050 ####[facility] [address] [place], [address] GFR/1.73 sq M.predicted among non-blacks MDRD (S/P/Bld) [Vol rate/Area] 69 mL/min/{1.73_m2} Normal >60 [facility] Comment on above: Result Comment: mL/m in/1.73m2 CKD-EPI Creatinine Equation (2020) Performed By: #### L 100.0100, L501.9940, L500.4050 ####[facility] [address] [place], [address] Globulin (S) [Mass/Vol] 3.0 g/dL Normal 2.2-4.2 [facility] Comment on above: Performed By: #### L 100.0100, L501.9940, L500.4050 ####[facility] [address] [place], [address] Glucose [Mass/Vol] 121 mg/dL High 70-99 [facility] Comment on above: Performed By: #### L 100.0100, L501.9940, L500.4050 ####[facility] [address] [place], [address] Potassium [Moles/Vol] 4.2 mmol/L Normal 3.3-5.1 [facility] Comment on above: Performed By: #### L 100.0100, L501.9940, L500.4050 ####[facility] [address] [place], [address] Sodium [Moles/Vol] 143 mmol/L Normal 133-145 [facility] Comment on above: Performed By: #### L 100.0100, L501.9940, L500.4050 ####[facility] [address] [place], [address] T PROT 6.8 g/dL Normal 5.9-8.4 [facility] Comment on above: Performed By: #### L 100.0100, L501.9940, L500.4050 ####[facility] [address] [place], [address] Urea nitrogen [Mass/Vol] 25 mg/dL High 4-19 [facility] Comment on above: Performed By: #### L 100.0100, L501.9940, L500.4050 ####[facility] [address] [place], [address] Eosinophil percentageOrdered By: Carolina Mcgee on 09-26-2024 Eosinophils/100 WBC (Bld) 2.8 % 0-5 [facility] Erythrocyte distribution wid th ratioOrdered By: Carolina Mcgee on 09-26-2024 Erythrocyte distribution width (RBC) [Ratio] 13.4 % 11.6-14.6 [facility] Erythrocyte distribution wid th standard deviationOrdered By: Carolina Mcgee on 09-26-2024 Erythrocyte distribution width (RBC) [Ratio] 51.2 fl High 35.1-43.9 [facility] Glomerular filtration rate ( GFR) estimation/1.73 sq m using serum, plasma, or whole bOrdered By: Carolina Mcgee on 09-26-2024 GFR/1.73 sq M.predicted among non-blacks MDRD (S/P/Bld) [Vol rate/Area] 69 mL/min/{1.73_m2} >60 [facility] Comment on above: mL/min/1.73m2 CKD-EP I Creatinine Equation (2020) Hematocrit Auto (Bld) [Volum e fraction]Ordered By: Carolina Mcgee on 09-26-2024 Hematocrit (Bld) [Volume fraction] 40.2 % 40-54 [facility] Hemoglobin measurementOrdere d By: Carolina Mcgee on 09-26-2024 Hemoglobin (Bld) [Mass/Vol] 13.4 g/dL 13.0-16.5 [facility] Immature granulocytes/100 WB C Auto (Bld)Ordered By: Carolina Mcgee on 09-26-2024 Immature granulocytes/100 WBC (Bld) 0.600 % 0.0-0.9 [facility] Comment on above: IG% - Immature Granu locytes (promyelocytes, myelocytes and metamyelocytes) > 1% indicates that a LEFT SHIFT is Present. Laboratory - Chemistry and C hemistry - challengeOrdered By: Carolina Mcgee on 09-26-2024 AST [Catalytic activity/Vol] 16 U/L <38 [facility] MCV (mean corpuscular volume ) determinationOrdered By: Carolina Mcgee on 09-26-2024 MCV (RBC) [Entitic vol] 103.1 fL High 80-94 [facility] Mean corpuscular hemoglobin (MCH) determinationOrdered By: Carolina Mcgee on 09-26-2024 MCH (RBC) [Entitic mass] 34.4 pg High 27.0-32.0 [facility] Mean corpuscular hemoglobin concentration (MCHC) determinationOrdered By: Carolina Mcgee on 09-26-2024 MCHC (RBC) [Mass/Vol] 33.3 g/dL 32-36 [facility] Mean platelet volume determi nationOrdered By: Carolina Mcgee on 09-26-2024 Platelet mean volume (Bld) [Entitic vol] 9.2 fL 6.2-12.0 [facility] Monocyte percentageOrdered B y: Carolina Mcgee on 09-26-2024 Monocytes/100 WBC (Bld) 8.8 % 0-10 [facility] Neutrophil percentageOrdered By: Carolina Mcgee on 09-26-2024 Neutrophils/100 WBC (Bld) 40.6 % Low 47-70 [facility] Nucleated red blood cell per centageOrdered By: Carolina Mcgee on 09-26-2024 Nucleated RBC/100 WBC (Bld) [Ratio] 0 % 0-5 [facility] Oncology Visit Reporton Oncology Visit Report Normal [facility] PSA,Total- Diagnosticon PSA, DIAGNOSTIC < 0.02 Normal 0.00-4.00 [facility] Comment on above: Result Comment: This [...] Performed By: #### L 100.0100, L501.9940, L500.4050 ####[facility] [address] [place], [address] Platelet countOrdered By: Sánchez Mcgee on 09-26-2024 Platelets (Bld) [#/Vol] 175 10*3/uL 150-450 [facility] Potassium measurement (mass/ volume)Ordered By: Carolina Mcgee on 09-26-2024 Potassium (Unsp spec) [Mass/Vol] 4.2 mmol/L 3.3-5.1 [facility] RBC Auto (Bld) [#/Vol]Ordere d By: Carolina Mcgee on 09-26-2024 RBC (Bld) [#/Vol] 3.90 10*6/uL Low 4.6-6.2 [facility] Serum creatinine measurement (mass/volume)Ordered By: Carolina Mcgee on 09-26-2024 Creatinine [Mass/Vol] 1.05 mg/dL 0.70-1.20 [facility] Serum globulin measurementOr dered By: Carolina Mcgee on 09-26-2024 Globulin (S) [Mass/Vol] 3.0 g/dL 2.2-4.2 [facility] Serum glucose measurement (m ass/volume)Ordered By: Carolina Mcgee on 09-26-2024 Glucose [Mass/Vol] 121 mg/dL High 70-99 [facility] Serum or plasma alanine rausch otransferase (ALT) measurementOrdered By: Carolina Mcgee on 09-26-2024 ALT [Catalytic activity/Vol] U/L <47 [facility] Serum or plasma albumin patricia urement (mass/volume)Ordered By: Carolina Mcgee on 09-26-2024 Albumin [Mass/Vol] 3.7 g/dL 3.4-4.8 [facility] Serum or plasma albumin/glob ulin mass ratioOrdered By: Carolina Mcgee on 09-26-2024 Albumin/Globulin [Mass ratio] 1.2 {ratio} 0.9-2.4 [facility] Serum or plasma alkaline martín sphatase measurementOrdered By: Carolina Mcgee on 09-26-2024 ALP [Catalytic activity/Vol] 52 U/L 40-129 [facility] Serum or plasma calcium patricia urement (mass/volume)Ordered By: Carolina Mcgee on 09-26-2024 Calcium [Mass/Vol] 9.0 mg/dL 7.6-11.0 [facility] Serum or plasma urea nitroge n measurement (mass/volume)Ordered By: Carolina Mcgee on 09-26-2024 Urea nitrogen [Mass/Vol] 25 mg/dL High 4-19 [facility] Sodium levelOrdered By: Vaishnavi Mcgee on 09-26-2024 Sodium [Moles/Vol] 143 mmol/L 133-145 [facility] Total proteinOrdered By: Graham Mcgee on 09-26-2024 Protein [Mass/Vol] 6.8 g/dL 5.9-8.4 [facility] White blood cell (WBC) count Ordered By: Carolina Mcgee on 09-26-2024 WBC (Bld) [#/Vol] 5.0 10*3/uL 4.4-11.0 [facility] Cardiology Visit Reporton Cardiology Visit Report Normal [facility] CBC W/Diff, Automatedon 07-23 Absolute Lymph 2.43 X10 3/uL Normal 0.83-4.51 [facility] Comment on above: Performed By: #### L 500.4050, L100.0100, L501.9940 ####[facility] [address] [place], [address] Absolute Neut 2.2 X10 3/uL Normal 2.0-7.7 [facility] Comment on above: Performed By: #### L 500.4050, L100.0100, L501.9940 ####[facility] [address] [place], [address] Basophils/100 WBC (Bld) 0.6 % Normal 0-1 [facility] Comment on above: Performed By: #### L 500.4050, L100.0100, L501.9940 ####[facility] [address] [place], [address] Eosinophils/100 WBC (Bld) 1.9 % Normal 0-5 [facility] Comment on above: Performed By: #### L 500.4050, L100.0100, L501.9940 ####[facility] [address] [place], [address] Erythrocyte distribution width (RBC) [Ratio] 13.5 % Normal 11.6-14.6 [facility] Comment on above: Performed By: #### L 500.4050, L100.0100, L501.9940 ####[facility] [address] [place], [address] Hematocrit (Bld) [Volume fraction] 41.1 % Normal 40-54 [facility] Comment on above: Performed By: #### L 500.4050, L100.0100, L501.9940 ####[facility] [address] [place], [address] Hemoglobin (Bld) [Mass/Vol] 14.0 g/dL Normal 13.0-16.5 [facility] Comment on above: Performed By: #### L 500.4050, L100.0100, L501.9940 ####[facility] [address] [place], [address] IG% 0.600 Normal 0.0-0.9 [facility] Comment on above: Result Comment: IG% - Immature Granulocytes (promyelocytes, myelocytes andmetamyelocytes) > 1% indicates that a LEFT SHIFT is Present. Performed By: #### L 500.4050, L100.0100, L501.9940 ####[facility] [address] [place], [address] Lymphocytes/100 WBC (Bld) 46.3 % High 19-41 [facility] Comment on above: Performed By: #### L 500.4050, L100.0100, L501.9940 ####[facility] [address] [place], [address] MCH (RBC) [Entitic mass] 34.4 pg High 27.0-32.0 [facility] Comment on above: Performed By: #### L 500.4050, L100.0100, L501.9940 ####[facility] [address] [place], [address] MCHC (RBC) [Mass/Vol] 34.1 g/dL Normal 32-36 [facility] Comment on above: Performed By: #### L 500.4050, L100.0100, L501.9940 ####[facility] [address] [place], [address] MCV (RBC) [Entitic vol] 101.0 fL High 80-94 [facility] Comment on above: Performed By: #### L 500.4050, L100.0100, L501.9940 ####[facility] [address] [place], [address] Monocytes/100 WBC (Bld) 8.8 % Normal 0-10 [facility] Comment on above: Performed By: #### L 500.4050, L100.0100, L501.9940 ####[facility] [address] [place], [address] Neutrophils/100 WBC (Bld) 41.8 % Low 47-70 [facility] Comment on above: Performed By: #### L 500.4050, L100.0100, L501.9940 ####[facility] [address] [place], [address] Nucleated RBC (Bld) [#/Vol] 0 10*3/uL Normal 0-5 [facility] Comment on above: Performed By: #### L 500.4050, L100.0100, L501.9940 ####[facility] [address] [place], [address] Platelet mean volume (Bld) [Entitic vol] 9.2 fL Normal 6.2-12.0 [facility] Comment on above: Performed By: #### L 500.4050, L100.0100, L501.9940 ####[facility] [address] [place], [address] Platelets (Bld) [#/Vol] 167 10*3/uL Normal 150-450 [facility] Comment on above: Performed By: #### L 500.4050, L100.0100, L501.9940 ####[facility] [address] [place], [address] RBC (Bld) [#/Vol] 4.07 10*6/uL Low 4.6-6.2 [facility] Comment on above: Performed By: #### L 500.4050, L100.0100, L501.9940 ####[facility] [address] [place], [address] RDW SD 50.0 fl High 35.1-43.9 [facility] Comment on above: Performed By: #### L 500.4050, L100.0100, L501.9940 ####[facility] [address] [place], [address] WBC (Bld) [#/Vol] 5.3 10*3/uL Normal 4.4-11.0 [facility] Comment on above: Performed By: #### L 500.4050, L100.0100, L501.9940 ####[facility] [address] [place], [address] Comprehensive Metabolic Prof ilon 08-15-2024 BUN/CRE 20.9 RATIO High 10-20 [facility] Comment on above: Performed By: #### L 500.4050, L100.0100, L501.9940 ####[facility] [address] [place], [address] Urea nitrogen [Mass/Vol] 19 mg/dL Normal 4-19 [facility] Comment on above: Performed By: #### L 500.4050, L100.0100, L501.9940 ####[facility] [address] [place], [address] Oncology Visit Reporton 07-23 Oncology Visit Report Normal [facility] PSA,Total- Diagnosticon 07-23 PSA, DIAGNOSTIC < 0.02 Normal 0.00-4.00 [facility] Comment on above: Result Comment: This [...] Performed By: #### L 500.4050, L100.0100, L501.9940 ####[facility] [address] [place], [address] Bone Scan Whole Bodyon 08-07 Bone Scan Whole Body Normal [facility] Absolute neutrophil countOrd ered By: Rachael Posada on 07-04-2024 Neutrophils (Bld) [#/Vol] 2.5 10*3/uL 2.0-7.7 [facility] Albumin to globulin ratioOrd ered By: Rachael Posada on 07-04-2024 Albumin/Globulin [Mass ratio] 0.8 {ratio} Low 0.9-2.4 [facility] Basophil percentageOrdered B y: Rachael Posada on 07-04-2024 Basophils/100 WBC (Bld) 0.3 % 0-1 [facility] Bilirubin, totalOrdered By: Rachael Posada on 07-04-2024 Bilirubin [Mass/Vol] 0.60 mg/dL 0.20-1.00 [facility] Comment on above: For patients on eltr ombopag therapy, use of Dimension [place] TBIL is not recommended. Blood urea nitrogen (BUN)/cr eatinine ratioOrdered By: Rachael Posada on 07-04-2024 Urea nitrogen/Creatinine [Mass ratio] 17.5 mg/mg 10-20 [facility] CBC W/Diff, Automatedon 06-24 Absolute Lymph 2.73 X10 3/uL Normal 0.83-4.51 [facility] Comment on above: Performed By: #### L 100.0100, L500.4050, L501.9940 ####[facility] [address] [place], [address] Absolute Neut 2.5 X10 3/uL Normal 2.0-7.7 [facility] Comment on above: Performed By: #### L 100.0100, L500.4050, L501.9940 ####[facility] [address] [place], [address] Basophils/100 WBC (Bld) 0.3 % Normal 0-1 [facility] Comment on above: Performed By: #### L 100.0100, L500.4050, L501.9940 ####[facility] [address] [place], [address] Eosinophils/100 WBC (Bld) 1.2 % Normal 0-5 [facility] Comment on above: Performed By: #### L 100.0100, L500.4050, L501.9940 ####[facility] [address] [place], [address] Erythrocyte distribution width (RBC) [Ratio] 13.6 % Normal 11.6-14.6 [facility] Comment on above: Performed By: #### L 100.0100, L500.4050, L501.9940 ####[facility] [address] [place], [address] Hematocrit (Bld) [Volume fraction] 41.3 % Normal 40-54 [facility] Comment on above: Performed By: #### L 100.0100, L500.4050, L501.9940 ####[facility] [address] [place], [address] Hemoglobin (Bld) [Mass/Vol] 13.5 g/dL Normal 13.0-16.5 [facility] Comment on above: Performed By: #### L 100.0100, L500.4050, L501.9940 ####[facility] [address] [place], [address] IG% 0.300 Normal 0.0-0.9 [facility] Comment on above: Result Comment: IG% - Immature Granulocytes (promyelocytes, myelocytes andmetamyelocytes) > 1% indicates that a LEFT SHIFT is Present. Performed By: #### L 100.0100, L500.4050, L501.9940 ####[facility] [address] [place], [address] Lymphocytes/100 WBC (Bld) 47.7 % High 19-41 [facility] Comment on above: Performed By: #### L 100.0100, L500.4050, L501.9940 ####[facility] [address] [place], [address] MCH (RBC) [Entitic mass] 33.8 pg High 27.0-32.0 [facility] Comment on above: Performed By: #### L 100.0100, L500.4050, L501.9940 ####[facility] [address] [place], [address] MCHC (RBC) [Mass/Vol] 32.7 g/dL Normal 32-36 [facility] Comment on above: Performed By: #### L 100.0100, L500.4050, L501.9940 ####[facility] [address] [place], [address] MCV (RBC) [Entitic vol] 103.3 fL High 80-94 [facility] Comment on above: Performed By: #### L 100.0100, L500.4050, L501.9940 ####[facility] [address] [place], [address] Monocytes/100 WBC (Bld) 7.3 % Normal 0-10 [facility] Comment on above: Performed By: #### L 100.0100, L500.4050, L501.9940 ####[facility] [address] [place], [address] Neutrophils/100 WBC (Bld) 43.2 % Low 47-70 [facility] Comment on above: Performed By: #### L 100.0100, L500.4050, L501.9940 ####[facility] [address] [place], [address] Nucleated RBC (Bld) [#/Vol] 0 10*3/uL Normal 0-5 [facility] Comment on above: Performed By: #### L 100.0100, L500.4050, L501.9940 ####[facility] [address] [place], [address] Platelet mean volume (Bld) [Entitic vol] 9.2 fL Normal 6.2-12.0 [facility] Comment on above: Performed By: #### L 100.0100, L500.4050, L501.9940 ####[facility] [address] [place], [address] Platelets (Bld) [#/Vol] 161 10*3/uL Normal 150-450 [facility] Comment on above: Performed By: #### L 100.0100, L500.4050, L501.9940 ####[facility] [address] [place], [address] RBC (Bld) [#/Vol] 4.00 10*6/uL Low 4.6-6.2 [facility] Comment on above: Performed By: #### L 100.0100, L500.4050, L501.9940 ####[facility] [address] [place], [address] RDW SD 51.8 fl High 35.1-43.9 [facility] Comment on above: Performed By: #### L 100.0100, L500.4050, L501.9940 ####[facility] [address] [place], [address] WBC (Bld) [#/Vol] 5.7 10*3/uL Normal 4.4-11.0 [facility] Comment on above: Performed By: #### L 100.0100, L500.4050, L501.9940 ####[facility] [address] [place], [address] Carbon dioxide measurementOr dered By: Rachael Posada on 07-04-2024 CO2 [Moles/Vol] 28.0 mmol/L 21.0-32.0 [facility] Chloride measurementOrdered By: Rachael Posada on 07-04-2024 Chloride [Moles/Vol] 112 mmol/L High 98-107 [facility] Comprehensive Metabolic Prof ilon 07-04-2024 Albumin [Mass/Vol] 3.2 g/dL Normal 3.2-5.0 [facility] Comment on above: Performed By: #### L 100.0100, L500.4050, L501.9940 ####[facility] [address] [place], [address] Albumin/Globulin [Mass ratio] 0.8 {ratio} Low 0.9-2.4 [facility] Comment on above: Performed By: #### L 100.0100, L500.4050, L501.9940 ####[facility] [address] [place], [address] ALK P 51 U/L Normal 45-117 [facility] Comment on above: Performed By: #### L 100.0100, L500.4050, L501.9940 ####[facility] [address] [place], [address] ALT [Catalytic activity/Vol] 13 U/L Low 16-61 [facility] Comment on above: Performed By: #### L 100.0100, L500.4050, L501.9940 ####[facility] [address] [place], [address] AST [Catalytic activity/Vol] 15 U/L Normal 15-37 [facility] Comment on above: Performed By: #### L 100.0100, L500.4050, L501.9940 ####[facility] [address] [place], [address] Bilirubin [Mass/Vol] 0.60 mg/dL Normal 0.20-1.00 [facility] Comment on above: Result Comment: For patients on eltrombopag therapy, use of Dimension [place] TBIL is not recommended. Performed By: #### L 100.0100, L500.4050, L501.9940 ####[facility] [address] [place], [address] BUN/CRE 17.5 RATIO Normal 10-20 [facility] Comment on above: Performed By: #### L 100.0100, L500.4050, L501.9940 ####[facility] [address] [place], [address] CA,Total 8.8 mg/dL Normal 8.5-10.1 [facility] Comment on above: Performed By: #### L 100.0100, L500.4050, L501.9940 ####[facility] [address] [place], [address] Chloride [Moles/Vol] 112 mmol/L High 98-107 [facility] Comment on above: Performed By: #### L 100.0100, L500.4050, L501.9940 ####[facility] [address] [place], [address] CO2 [Moles/Vol] 28.0 mmol/L Normal 21.0-32.0 [facility] Comment on above: Performed By: #### L 100.0100, L500.4050, L501.9940 ####[facility] [address] [place], [address] Creatinine [Mass/Vol] 1.14 mg/dL Normal 0.70-1.30 [facility] Comment on above: Result Comment: The validity of the calculated GFR GFRAA in patients over70 years has not been determined. Clinical correlation isessential. Performed By: #### L 100.0100, L500.4050, L501.9940 ####[facility] [address] [place], [address] ECRCL 47.14 ml/min Normal [facility] Comment on above: Performed By: #### L 100.0100, L500.4050, L501.9940 ####[facility] [address] [place], [address] EST GFR - AA 78 mL/min Normal >60 [facility] Comment on above: Result Comment: Afri can Jamaican GFR Calc Performed By: #### L 100.0100, L500.4050, L501.9940 ####[facility] [address] [place], [address] GAP 5 Normal 5-15 [facility] Comment on above: Performed By: #### L 100.0100, L500.4050, L501.9940 ####[facility] [address] [place], [address] GFR/1.73 sq M.predicted among non-blacks MDRD (S/P/Bld) [Vol rate/Area] 65 mL/min/{1.73_m2} Normal >60 [facility] Comment on above: Result Comment: Non- GFR Calc Performed By: #### L 100.0100, L500.4050, L501.9940 ####[facility] [address] [place], [address] Globulin (S) [Mass/Vol] 3.8 g/dL Normal 2.2-4.2 [facility] Comment on above: Performed By: #### L 100.0100, L500.4050, L501.9940 ####[facility] [address] [place], [address] Glucose [Mass/Vol] 107 mg/dL High 74-106 [facility] Comment on above: Result Comment: Fast ing Glucose result from 100 to 125 mg/dLsuggests IMPAIRED HOMEOSTASIS per A.D.A. criteria. Performed By: #### L 100.0100, L500.4050, L501.9940 ####[facility] [address] [place], [address] Potassium [Moles/Vol] 3.9 mmol/L Normal 3.5-5.1 [facility] Comment on above: Performed By: #### L 100.0100, L500.4050, L501.9940 ####[facility] [address] [place], [address] Sodium [Moles/Vol] 146 mmol/L High 136-145 [facility] Comment on above: Performed By: #### L 100.0100, L500.4050, L501.9940 ####[facility] [address] [place], [address] T PROT 7.0 g/dL Normal 6.4-8.2 [facility] Comment on above: Performed By: #### L 100.0100, L500.4050, L501.9940 ####[facility] [address] [place], [address] Urea nitrogen [Mass/Vol] 20 mg/dL High 7-18 [facility] Comment on above: Performed By: #### L 100.0100, L500.4050, L501.9940 ####[facility] [address] [place], [address] Diagnostic total prostate sp ecific antigen (PSA) measurementOrdered By: Rachael Posada on 07-04-2024 Prostate Specific Antigen Total 0.02 ng/mL 0.0-4.0 [facility] Comment on above: This test was perfor med using the TPSA assay method for the[facility] chemistry system. Values obtained with differentassay methods cannot be used interchangably.When changing PSA assays in the course of monitoring apatient, additional sequential testing should be carriedout to confirm baseline values. Eosinophil percentageOrdered By: Rachael Posada on 07-04-2024 Eosinophils/100 WBC (Bld) 1.2 % 0-5 [facility] Erythrocyte distribution wid th ratioOrdered By: Rachael Posada on 07-04-2024 Erythrocyte distribution width (RBC) [Ratio] 13.6 % 11.6-14.6 [facility] Erythrocyte distribution wid th standard deviationOrdered By: Rachael Posada on 07-04-2024 Erythrocyte distribution width (RBC) [Entitic vol] 51.8 fL High 35.1-43.9 [facility] Estimated glomerular filtrat ion rate (GFR) AmericanOrdered By: Rachael Posada on 07-04-2024 Estimated GFR (MDRD) Amer 78 mL/min >60 [facility] Comment on above: GFR Calc Estimation of creatinine lenora aranceOrdered By: Rachael Posada on 07-04-2024 Estimated Creatinine Clearance Calc 47.14 ml/min [facility] Glomerular filtration rate ( GFR) estimationOrdered By: Rachael Posada on 07-04-2024 Estimated GFR (MDRD) Non-Af Amer 65 mL/min >60 [facility] Comment on above: Non- GFR Calc Glucose measurementOrdered B y: Rachael Posada on 07-04-2024 Glucose [Mass/Vol] 107 mg/dL High 74-106 [facility] Comment on above: Fasting Glucose resu lt from 100 to 125 mg/dL suggests IMPAIRED HOMEOSTASIS per A.D.A. criteria. Hematocrit Auto (Bld) [Volum e fraction]Ordered By: Rachael Posada on 07-04-2024 Hematocrit (Bld) [Volume fraction] 41.3 % 40-54 [facility] Hemoglobin measurementOrdere d By: Rachael Posada on 07-04-2024 Hemoglobin (Bld) [Mass/Vol] 13.5 g/dL 13.0-16.5 [facility] Immature granulocytes/100 WB C Auto (Bld)Ordered By: Rachael Posada on 07-04-2024 Immature granulocytes/100 WBC (Bld) 0.300 % 0.0-0.9 [facility] Comment on above: IG% - Immature Granu locytes (promyelocytes, myelocytes and metamyelocytes) > 1% indicates that a LEFT SHIFT is Present. Laboratory - Chemistry and C hemistry - challengeOrdered By: Rachael Posada on 07-04-2024 AST [Catalytic activity/Vol] 15 U/L 15-37 [facility] Lymphocytes Auto (Unsp spec) [#/Vol]Ordered By: Rachaelroland McclellanAlbino on 07-04-2024 Lymphocytes (Bld) [#/Vol] 2.73 10*3/uL 0.83-4.51 [facility] Lymphocytes/100 WBC Auto (Un sp spec)Ordered By: Rachael McclellanAlbino on 07-04-2024 Lymphocytes/100 WBC (Bld) 47.7 % High 19-41 [facility] MCV (mean corpuscular volume ) determinationOrdered By: Rachael McclellanAlbino on 07-04-2024 MCV (RBC) [Entitic vol] 103.3 fL High 80-94 [facility] Mean corpuscular hemoglobin (MCH) determinationOrdered By: Rachael Posada on 07-04-2024 MCH (RBC) [Entitic mass] 33.8 pg High 27.0-32.0 [facility] Mean corpuscular hemoglobin concentration (MCHC) determinationOrdered By: Rachael McclellanAlbino on 07-04-2024 MCHC (RBC) [Mass/Vol] 32.7 g/dL 32-36 [facility] Mean platelet volume determi nationOrdered By: Rachael McclellanAlbino on 07-04-2024 Platelet mean volume (Bld) [Entitic vol] 9.2 fL 6.2-12.0 [facility] Monocyte percentageOrdered B y: Rachael Posada on 07-04-2024 Monocytes/100 WBC (Bld) 7.3 % 0-10 [facility] Neutrophil percentageOrdered By: Rachael McclellanAlbino on 07-04-2024 Neutrophils/100 WBC (Bld) 43.2 % Low 47-70 [facility] Nucleated red blood cell per centageOrdered By: Rachael McclellanAlbino on 07-04-2024 Nucleated RBC/100 WBC (Bld) [Ratio] 0 % 0-5 [facility] Oncology Visit Reporton 06-24 Oncology Visit Report Normal [facility] PSA,Total- Diagnosticon 06-24 PSA, DIAGNOSTIC 0.02 ng/mL Normal 0.0-4.0 [facility] Comment on above: Result Comment: This test was performed using the TPSA assay method for the[employer] chemistry system. Values obtained with differentassay methods cannot be used interchangably.When changing PSA assays in the course of monitoring apatient, additional sequential testing should be carriedout to confirm baseline values. Performed By: #### L 100.0100, L500.4050, L501.9940 ####[facility] [address] [place], [address] Platelet countOrdered By: Ty ra Posada on 07-04-2024 Platelets (Bld) [#/Vol] 161 10*3/uL 150-450 [facility] Potassium measurementOrdered By: Rachael Posada on 07-04-2024 Potassium [Moles/Vol] 3.9 mmol/L 3.5-5.1 [facility] RBC Auto (Bld) [#/Vol]Ordere d By: Rachael Posada on 07-04-2024 RBC (Bld) [#/Vol] 4.00 10*6/uL Low 4.6-6.2 [facility] Serum anion gap measurementO rdered By: Rachael McclellanAlbino on 07-04-2024 Anion gap [Moles/Vol] 5 mmol/L 5-15 [facility] Serum globulin measurementOr dered By: Rachael Posada on 07-04-2024 Globulin (S) [Mass/Vol] 3.8 g/dL 2.2-4.2 [facility] Serum or plasma alanine rausch otransferase (ALT) measurementOrdered By: Rachaelroland McclellanAlbino on 07-04-2024 ALT [Catalytic activity/Vol] 13 U/L Low 16-61 [facility] Serum or plasma albumin patricia urement (mass/volume)Ordered By: Rachaelroland McclellanAlbino on 07-04-2024 Albumin [Mass/Vol] 3.2 g/dL 3.2-5.0 [facility] Serum or plasma alkaline martín sphatase measurementOrdered By: Rachael McclellanAlbino on 07-04-2024 ALP [Catalytic activity/Vol] 51 U/L 45-117 [facility] Serum or plasma calcium patricia urement (mass/volume)Ordered By: Rachael Posada on 07-04-2024 Calcium [Mass/Vol] 8.8 mg/dL 8.5-10.1 [facility] Serum or plasma creatinine m easurement (mass/volume)Ordered By: Rachael Posada on 07-04-2024 Creatinine [Mass/Vol] 1.14 mg/dL 0.70-1.30 [facility] Comment on above: The validity of the calculated GFR & GFRAA in patients over 70 years has not been determined. Clinical correlation is essential. Serum or plasma urea nitroge n measurement (mass/volume)Ordered By: Rachael Posada on 07-04-2024 Urea nitrogen [Mass/Vol] 20 mg/dL High 7-18 [facility] Sodium levelOrdered By: Rachael Posada on 07-04-2024 Sodium [Moles/Vol] 146 mmol/L High 136-145 [facility] Total proteinOrdered By: Mert Posada on 07-04-2024 Protein [Mass/Vol] 7.0 g/dL 6.4-8.2 [facility] White blood cell (WBC) count Ordered By: Rachael Posada on 07-04-2024 WBC (Bld) [#/Vol] 5.7 10*3/uL 4.4-11.0 [facility] Emergency Department Summary on 06-03-2024 Emergency Department Summary Normal [facility] CBC W/Diff, Automatedon 12-3 Absolute Lymph 2.24 X10 3/uL Normal 0.83-4.51 [facility] Comment on above: Performed By: #### L 501.9940, L500.4050, L100.0100 ####[facility] [address] [place], [address] Absolute Neut 2.1 X10 3/uL Normal 2.0-7.7 [facility] Comment on above: Performed By: #### L 501.9940, L500.4050, L100.0100 ####[facility] [address] [place], [address] Basophils/100 WBC (Bld) 0.8 % Normal 0-1 [facility] Comment on above: Performed By: #### L 501.9940, L500.4050, L100.0100 ####[facility] [address] [place], [address] Eosinophils/100 WBC (Bld) 3.8 % Normal 0-5 [facility] Comment on above: Performed By: #### L 501.9940, L500.4050, L100.0100 ####[facility] [address] [place], [address] Erythrocyte distribution width (RBC) [Ratio] 12.9 % Normal 11.6-14.6 [facility] Comment on above: Performed By: #### L 501.9940, L500.4050, L100.0100 ####[facility] [address] [place], [address] Hematocrit (Bld) [Volume fraction] 43.7 % Normal 40-54 [facility] Comment on above: Performed By: #### L 501.9940, L500.4050, L100.0100 ####[facility] [address] [place], [address] Hemoglobin (Bld) [Mass/Vol] 14.6 g/dL Normal 13.0-16.5 [facility] Comment on above: Performed By: #### L 501.9940, L500.4050, L100.0100 ####[facility] [address] [place], [address] IG% 0.800 Normal 0.0-0.9 [facility] Comment on above: Result Comment: IG% - Immature Granulocytes (promyelocytes, myelocytes andmetamyelocytes) > 1% indicates that a LEFT SHIFT is Present. Performed By: #### L 501.9940, L500.4050, L100.0100 ####[facility] [address] [place], [address] Lymphocytes/100 WBC (Bld) 44.8 % High 19-41 [facility] Comment on above: Performed By: #### L 501.9940, L500.4050, L100.0100 ####[facility] [address] [place], [address] MCH (RBC) [Entitic mass] 33.9 pg High 27.0-32.0 [facility] Comment on above: Performed By: #### L 501.9940, L500.4050, L100.0100 ####[facility] [address] [place], [address] MCHC (RBC) [Mass/Vol] 33.4 g/dL Normal 32-36 [facility] Comment on above: Performed By: #### L 501.9940, L500.4050, L100.0100 ####[facility] [address] [place], [address] MCV (RBC) [Entitic vol] 101.4 fL High 80-94 [facility] Comment on above: Performed By: #### L 501.9940, L500.4050, L100.0100 ####[facility] [address] [place], [address] Monocytes/100 WBC (Bld) 8.2 % Normal 0-10 [facility] Comment on above: Performed By: #### L 501.9940, L500.4050, L100.0100 ####[facility] [address] [place], [address] Neutrophils/100 WBC (Bld) 41.6 % Low 47-70 [facility] Comment on above: Performed By: #### L 501.9940, L500.4050, L100.0100 ####[facility] [address] [place], [address] Nucleated RBC (Bld) [#/Vol] 0 10*3/uL Normal 0-5 [facility] Comment on above: Performed By: #### L 501.9940, L500.4050, L100.0100 ####[facility] [address] [place], [address] Platelet mean volume (Bld) [Entitic vol] 9.2 fL Normal 6.2-12.0 [facility] Comment on above: Performed By: #### L 501.9940, L500.4050, L100.0100 ####[facility] [address] [place], [address] Platelets (Bld) [#/Vol] 207 10*3/uL Normal 150-450 [facility] Comment on above: Performed By: #### L 501.9940, L500.4050, L100.0100 ####[facility] [address] [place], [address] RBC (Bld) [#/Vol] 4.31 10*6/uL Low 4.6-6.2 [facility] Comment on above: Performed By: #### L 501.9940, L500.4050, L100.0100 ####[facility] [address] [place], [address] RDW SD 48.8 fl High 35.1-43.9 [facility] Comment on above: Performed By: #### L 501.9940, L500.4050, L100.0100 ####[facility] [address] [place], [address] WBC (Bld) [#/Vol] 5.0 10*3/uL Normal 4.4-11.0 [facility] Comment on above: Performed By: #### L 501.9940, L500.4050, L100.0100 ####[facility] [address] [place], [address] Comprehensive Metabolic Prof ilon 05-23-2024 Albumin [Mass/Vol] 3.1 g/dL Low 3.2-5.0 [facility] Comment on above: Performed By: #### L 501.9940, L500.4050, L100.0100 ####[facility] [address] [place], [address] Albumin/Globulin [Mass ratio] 0.7 {ratio} Low 0.9-2.4 [facility] Comment on above: Performed By: #### L 501.9940, L500.4050, L100.0100 ####[facility] [address] [place], [address] ALK P 61 U/L Normal 45-117 [facility] Comment on above: Performed By: #### L 501.9940, L500.4050, L100.0100 ####[facility] [address] [place], [address] ALT [Catalytic activity/Vol] 9 U/L Low 16-61 [facility] Comment on above: Performed By: #### L 501.9940, L500.4050, L100.0100 ####[facility] [address] [place], [address] AST [Catalytic activity/Vol] 10 U/L Low 15-37 [facility] Comment on above: Performed By: #### L 501.9940, L500.4050, L100.0100 ####[facility] [address] [place], [address] Bilirubin [Mass/Vol] 0.80 mg/dL Normal 0.20-1.00 [facility] Comment on above: Result Comment: For patients on eltrombopag therapy, use of Dimension [place] TBIL is not recommended. Performed By: #### L 501.9940, L500.4050, L100.0100 ####[facility] [address] [place], [address] BUN/CRE 19.3 RATIO Normal 10-20 [facility] Comment on above: Performed By: #### L 501.9940, L500.4050, L100.0100 ####[facility] [address] [place], [address] CA,Total 8.7 mg/dL Normal 8.5-10.1 [facility] Comment on above: Performed By: #### L 501.9940, L500.4050, L100.0100 ####[facility] [address] [place], [address] Chloride [Moles/Vol] 111 mmol/L High 98-107 [facility] Comment on above: Performed By: #### L 501.9940, L500.4050, L100.0100 ####[facility] [address] [place], [address] CO2 [Moles/Vol] 27.0 mmol/L Normal 21.0-32.0 [facility] Comment on above: Performed By: #### L 501.9940, L500.4050, L100.0100 ####[facility] [address] [place], [address] Creatinine [Mass/Vol] 0.99 mg/dL Normal 0.70-1.30 [facility] Comment on above: Result Comment: The validity of the calculated GFR GFRAA in patients over70 years has not been determined. Clinical correlation isessential. Performed By: #### L 501.9940, L500.4050, L100.0100 ####[facility] [address] [place], [address] ECRCL 54.28 ml/min Normal [facility] Comment on above: Performed By: #### L 501.9940, L500.4050, L100.0100 ####[facility] [address] [place], [address] EST GFR - AA 92 mL/min Normal >60 [facility] Comment on above: Result Comment: Afri can Jamaican GFR Calc Performed By: #### L 501.9940, L500.4050, L100.0100 ####[facility] [address] [place], [address] GAP 6 Normal 5-15 [facility] Comment on above: Performed By: #### L 501.9940, L500.4050, L100.0100 ####[facility] [address] [place], [address] GFR/1.73 sq M.predicted among non-blacks MDRD (S/P/Bld) [Vol rate/Area] 76 mL/min/{1.73_m2} Normal >60 [facility] Comment on above: Result Comment: Non- GFR Calc Performed By: #### L 501.9940, L500.4050, L100.0100 ####[facility] [address] [place], [address] Globulin (S) [Mass/Vol] 4.2 g/dL Normal 2.2-4.2 [facility] Comment on above: Performed By: #### L 501.9940, L500.4050, L100.0100 ####[facility] [address] [place], [address] Glucose [Mass/Vol] 121 mg/dL High 74-106 [facility] Comment on above: Result Comment: Fast ing Glucose result from 100 to 125 mg/dLsuggests IMPAIRED HOMEOSTASIS per A.D.A. criteria. Performed By: #### L 501.9940, L500.4050, L100.0100 ####[facility] [facility] [address] [place], [address] Potassium [Moles/Vol] 3.8 mmol/L Normal 3.5-5.1 [facility] Comment on above: Performed By: #### L 501.9940, L500.4050, L100.0100 ####[facility] [address] [place], [address] Sodium [Moles/Vol] 144 mmol/L Normal 136-145 [facility] Comment on above: Performed By: #### L 501.9940, L500.4050, L100.0100 ####[facility] [address] [place], [address] T PROT 7.3 g/dL Normal 6.4-8.2 [facility] Comment on above: Performed By: #### L 501.9940, L500.4050, L100.0100 ####[facility] [address] [place], [address] Urea nitrogen [Mass/Vol] 19 mg/dL High 7-18 [facility] Comment on above: Performed By: #### L 501.9940, L500.4050, L100.0100 ####[facility] [address] [place], [address] Oncology Visit Reporton 04-25 Oncology Visit Report Normal [facility] PSA,Total- Diagnosticon 04-25 PSA, DIAGNOSTIC 0.03 ng/mL Normal 0.0-4.0 [facility] Comment on above: Result Comment: This test was performed using the TPSA assay method for the[employer] chemistry system. Values obtained with differentassay methods cannot be used interchangably.When changing PSA assays in the course of monitoring apatient, additional sequential testing should be carriedout to confirm baseline values. Performed By: #### L 501.9940, L500.4050, L100.0100 ####[facility] [address] [place], [address] Internal Medicine Office Vis iton 04-26-2024 Internal Medicine Office Visit Normal [facility] Laboratory - Hematology and Cell countson 04-26-2024 HbA1c (Bld) [Mass fraction] 5.7 % 4.2-6.3 [facility] CBC W/Diff, Automatedon 03-24 Absolute Lymph 2.41 X10 3/uL Normal 0.83-4.51 [facility] Comment on above: Performed By: #### L 500.4050, L100.0100, L501.9940 ####[facility] [address] [place], [address] Absolute Neut 2.1 X10 3/uL Normal 2.0-7.7 [facility] Comment on above: Performed By: #### L 500.4050, L100.0100, L501.9940 ####[facility] [address] [place], [address] Basophils/100 WBC (Bld) 0.4 % Normal 0-1 [facility] Comment on above: Performed By: #### L 500.4050, L100.0100, L501.9940 ####[facility] [address] [place], [address] Eosinophils/100 WBC (Bld) 1.4 % Normal 0-5 [facility] Comment on above: Performed By: #### L 500.4050, L100.0100, L501.9940 ####[facility] [address] [place], [address] Erythrocyte distribution width (RBC) [Ratio] 13.1 % Normal 11.6-14.6 [facility] Comment on above: Performed By: #### L 500.4050, L100.0100, L501.9940 ####[facility] [address] [place], [address] Hematocrit (Bld) [Volume fraction] 42.6 % Normal 40-54 [facility] Comment on above: Performed By: #### L 500.4050, L100.0100, L501.9940 ####[facility] [address] [place], [address] Hemoglobin (Bld) [Mass/Vol] 14.3 g/dL Normal 13.0-16.5 [facility] Comment on above: Performed By: #### L 500.4050, L100.0100, L501.9940 ####[facility] [address] [place], [address] IG% 0.200 Normal 0.0-0.9 [facility] Comment on above: Result Comment: IG% - Immature Granulocytes (promyelocytes, myelocytes andmetamyelocytes) > 1% indicates that a LEFT SHIFT is Present. Performed By: #### L 500.4050, L100.0100, L501.9940 ####[facility] [address] [place], [address] Lymphocytes/100 WBC (Bld) 48.0 % High 19-41 [facility] Comment on above: Performed By: #### L 500.4050, L100.0100, L501.9940 ####[facility] [address] [place], [address] MCH (RBC) [Entitic mass] 34.5 pg High 27.0-32.0 [facility] Comment on above: Performed By: #### L 500.4050, L100.0100, L501.9940 ####[facility] [address] [place], [address] MCHC (RBC) [Mass/Vol] 33.6 g/dL Normal 32-36 [facility] Comment on above: Performed By: #### L 500.4050, L100.0100, L501.9940 ####[facility] [address] [place], [address] MCV (RBC) [Entitic vol] 102.7 fL High 80-94 [facility] Comment on above: Performed By: #### L 500.4050, L100.0100, L501.9940 ####[facility] [address] [place], [address] Monocytes/100 WBC (Bld) 8.6 % Normal 0-10 [facility] Comment on above: Performed By: #### L 500.4050, L100.0100, L501.9940 ####[facility] [address] [place], [address] Neutrophils/100 WBC (Bld) 41.4 % Low 47-70 [facility] Comment on above: Performed By: #### L 500.4050, L100.0100, L501.9940 ####[facility] [address] [place], [address] Nucleated RBC (Bld) [#/Vol] 0 10*3/uL Normal 0-5 [facility] Comment on above: Performed By: #### L 500.4050, L100.0100, L501.9940 ####[facility] [address] [place], [address] Platelet mean volume (Bld) [Entitic vol] 9.1 fL Normal 6.2-12.0 [facility] Comment on above: Performed By: #### L 500.4050, L100.0100, L501.9940 ####[facility] [address] [place], [address] Platelets (Bld) [#/Vol] 157 10*3/uL Normal 150-450 [facility] Comment on above: Performed By: #### L 500.4050, L100.0100, L501.9940 ####[facility] [address] [place], [address] RBC (Bld) [#/Vol] 4.15 10*6/uL Low 4.6-6.2 [facility] Comment on above: Performed By: #### L 500.4050, L100.0100, L501.9940 ####[facility] [address] [place], [address] RDW SD 50.2 fl High 35.1-43.9 [facility] Comment on above: Performed By: #### L 500.4050, L100.0100, L501.9940 ####[facility] [address] [place], [address] WBC (Bld) [#/Vol] 5.0 10*3/uL Normal 4.4-11.0 [facility] Comment on above: Performed By: #### L 500.4050, L100.0100, L501.9940 ####[facility] [address] [place], [address] Comprehensive Metabolic [facility] 04-10-2024 Albumin [Mass/Vol] 3.5 g/dL Normal 3.2-5.0 [facility] Comment on above: Performed By: #### L 500.4050, L100.0100, L501.9940 ####[facility] [address] [place], [address] Albumin/Globulin [Mass ratio] 1.0 {ratio} Normal 0.9-2.4 [facility] Comment on above: Performed By: #### L 500.4050, L100.0100, L501.9940 ####[facility] [address] [place], [address] ALK P 47 U/L Normal 45-117 [facility] Comment on above: Performed By: #### L 500.4050, L100.0100, L501.9940 ####[facility] [address] [place], [address] ALT [Catalytic activity/Vol] 14 U/L Low 16-61 [facility] Comment on above: Performed By: #### L 500.4050, L100.0100, L501.9940 ####[facility] [address] [place], [address] AST [Catalytic activity/Vol] 12 U/L Low 15-37 [facility] Comment on above: Performed By: #### L 500.4050, L100.0100, L501.9940 ####[facility] [address] [place], [address] Bilirubin [Mass/Vol] 0.80 mg/dL Normal 0.20-1.00 [facility] Comment on above: Result Comment: For patients on eltrombopag therapy, use of Dimension [place] TBIL is not recommended. Performed By: #### L 500.4050, L100.0100, L501.9940 ####[facility] [address] [place], [address] BUN/CRE 18.9 RATIO Normal 10-20 [facility] Comment on above: Performed By: #### L 500.4050, L100.0100, L501.9940 ####[facility] [address] [place], [address] CA,Total 8.9 mg/dL Normal 8.5-10.1 [facility] Comment on above: Performed By: #### L 500.4050, L100.0100, L501.9940 ####[facility] [address] [place], [address] Chloride [Moles/Vol] 111 mmol/L High 98-107 [facility] Comment on above: Performed By: #### L 500.4050, L100.0100, L501.9940 ####[facility] [address] [place], [address] CO2 [Moles/Vol] 27.0 mmol/L Normal 21.0-32.0 [facility] Comment on above: Performed By: #### L 500.4050, L100.0100, L501.9940 ####[facility] [address] [place], [address] Creatinine [Mass/Vol] 1.06 mg/dL Normal 0.70-1.30 [facility] Comment on above: Result Comment: The validity of the calculated GFR GFRAA in patients over70 years has not been determined. Clinical correlation isessential. Performed By: #### L 500.4050, L100.0100, L501.9940 ####[facility] [address] [place], [address] ECRCL 51.65 ml/min Normal [facility] Comment on above: Performed By: #### L 500.4050, L100.0100, L501.9940 ####[facility] [address] [place], [address] EST GFR - AA 85 mL/min Normal >60 [facility] Comment on above: Result Comment: Afri can Jamaican GFR Calc Performed By: #### L 500.4050, L100.0100, L501.9940 ####[facility] [address] [place], [address] GAP 4 Low 5-15 [facility] Comment on above: Performed By: #### L 500.4050, L100.0100, L501.9940 ####[facility] [address] [place], [address] GFR/1.73 sq M.predicted among non-blacks MDRD (S/P/Bld) [Vol rate/Area] 70 mL/min/{1.73_m2} Normal >60 [facility] Comment on above: Result Comment: Non- GFR Calc Performed By: #### L 500.4050, L100.0100, L501.9940 ####[facility] [address] [place], [address] Globulin (S) [Mass/Vol] 3.4 g/dL Normal 2.2-4.2 [facility] Comment on above: Performed By: #### L 500.4050, L100.0100, L501.9940 ####[facility] [address] [place], [address] Glucose [Mass/Vol] 137 mg/dL High 74-106 [facility] Comment on above: Result Comment: Fast ing Glucose result greater than or equal to 126 mg/dLsuggests DIABETES MELLITUS per A.D.A. criteria. Performed By: #### L 500.4050, L100.0100, L501.9940 ####[facility] [address] [place], [address] Potassium [Moles/Vol] 4.1 mmol/L Normal 3.5-5.1 [facility] Comment on above: Performed By: #### L 500.4050, L100.0100, L501.9940 ####[facility] [address] [place], [address] Sodium [Moles/Vol] 142 mmol/L Normal 136-145 [facility] Comment on above: Performed By: #### L 500.4050, L100.0100, L501.9940 ####[facility] [address] [place], [address] T PROT 6.9 g/dL Normal 6.4-8.2 [facility] Comment on above: Performed By: #### L 500.4050, L100.0100, L501.9940 ####[facility] [address] [place], [address] Urea nitrogen [Mass/Vol] 20 mg/dL High 7-18 [facility] Comment on above: Performed By: #### L 500.4050, L100.0100, L501.9940 ####[facility] [address] [place], [place], [address] Oncology Visit Reporton 03-24 Oncology Visit Report Normal [facility] PSA,Total- Diagnosticon 03-24 PSA, DIAGNOSTIC 0.03 ng/mL Normal 0.0-4.0 [facility] Comment on above: Result Comment: This test was performed using the TPSA assay method for the[employer] chemistry system. Values obtained with differentassay methods cannot be used interchangably.When changing PSA assays in the course of monitoring apatient, additional sequential testing should be carriedout to confirm baseline values. Performed By: #### L 500.4050, L100.0100, L501.9940 ####[facility] [address] [place], [address] Absolute lymphocyte countOrd ered By: Rachael Posada on 06-21-2023 Lymphocytes Auto (Unsp spec) [#/Vol] 3.26 10*3/uL 0.83-4.51 [facility] Automated lymphocyte count a s percentage of total leukocytesOrdered By: Rachael Posada on 06-21-2023 Lymphocytes/100 WBC Auto (Unsp spec) 47.8 % 19-41 [facility] Basophil percentageOrdered B y: Rachael Posada on 06-21-2023 Basophil percentage 7.03 ng/mL 0.0-4.0 [facility] Comment on above: This test was perfor med using the TPSA assay method for the[employer] chemistry system. Values obtained with differentassay methods cannot be used interchangably.When changing PSA assays in the course of monitoring apatient, additional sequential testing should be carriedout to confirm baseline values. Basophils/100 WBC (Bld) 0.3 % 0-1 [facility] Bilirubin [Mass/Vol] 1.10 mg/dL 0.20-1.00 [facility] Comment on above: For patients on eltr ombopag therapy, use of Dimension [place] TBIL is not recommended. Chloride [Moles/Vol] 108 mmol/L 98-107 [facility] Eosinophils/100 WBC (Bld) 0.6 % 0-5 [facility] Glucose [Mass/Vol] 110 mg/dL 74-106 [facility] Comment on above: Fasting Glucose resu lt from 100 to 125 mg/dL suggests IMPAIRED HOMEOSTASIS per A.D.A. criteria. Hemoglobin (Bld) [Mass/Vol] 14.2 g/dL 13.0-16.5 [facility] Monocytes/100 WBC (Bld) 8.7 % 0-10 [facility] Neutrophils (Bld) [#/Vol] 2.9 10*3/uL 2.0-7.7 [facility] Neutrophils/100 WBC (Bld) 42.3 % 47-70 [facility] Potassium [Moles/Vol] 3.4 mmol/L 3.5-5.1 [facility] Protein [Mass/Vol] 7.5 g/dL 6.4-8.2 [facility] Sodium [Moles/Vol] 140 mmol/L 136-145 [facility] WBC (Bld) [#/Vol] 6.8 10*3/uL 4.4-11.0 [facility] Determination of erythrocyte mean corpuscular volume (MCV)Ordered By: Rachael Posada on 06-21-2023 MCV (RBC) [Entitic vol] 100.0 fL 80-94 [facility] Erythrocyte distribution wid th ratioOrdered By: Rachael Posada on 06-21-2023 Erythrocyte distribution width (RBC) [Ratio] 13.4 % 11.6-14.6 [facility] Erythrocyte distribution wid th standard deviationOrdered By: Rachael Posada on 06-21-2023 Erythrocyte distribution width (RBC) [Entitic vol] 49.7 fL 35.1-43.9 [facility] Hematocrit Auto (Bld) [Volum e fraction]Ordered By: Rachael Posada on 06-21-2023 Hematocrit (Bld) [Volume fraction] 43.6 % 40-54 [facility] Immature granulocytes/100 WB C Auto (Bld)Ordered By: Rachael Posada on 06-21-2023 Immature granulocytes/100 WBC (Bld) 0.300 % 0.0-0.9 [facility] Comment on above: IG% - Immature Granu locytes (promyelocytes, myelocytes and metamyelocytes) > 1% indicates that a LEFT SHIFT is Present. Laboratory - Chemistry and C hemistry - challengeOrdered By: Rachael Posada on 06-21-2023 Albumin/Globulin [Mass ratio] 0.8 {ratio} 0.9-2.4 [facility] ALP [Catalytic activity/Vol] 76 U/L 45-117 [facility] ALT [Catalytic activity/Vol] 13 U/L 16-61 [facility] CO2 [Moles/Vol] 30.0 mmol/L 21.0-32.0 [facility] Globulin (S) [Mass/Vol] 4.1 g/dL 2.2-4.2 [facility] Urea nitrogen/Creatinine [Mass ratio] 21.9 mg/mg 10-20 [facility] Laboratory - Hematology and Cell countsOrdered By: Rahcael Posada on 06-21-2023 MCH (RBC) [Entitic mass] 32.6 pg 27.0-32.0 [facility] MCHC (RBC) [Mass/Vol] 32.6 g/dL 32-36 [facility] Nucleated RBC/100 WBC (Bld) [Ratio] 0 % 0-5 [facility] Platelets (Bld) [#/Vol] 181 10*3/uL 150-450 [facility] No Panel InformationOrdered By: Rachael Posada on 06-21-2023 Estimated Creatinine Clearance Calc 60.16 ml/min [facility] Estimated GFR (MDRD) Amer 101 mL/min >60 [facility] Comment on above: GFR Calc Estimated GFR (MDRD) Non-Af Amer 84 mL/min >60 [facility] Comment on above: Non- GFR Calc Platelet mean volume Santhosh-Ec ker (Bld) [Entitic vol]Ordered By: Rachael Posada on 06-21-2023 Platelet mean volume (Bld) [Entitic vol] 9.5 fL 6.2-12.0 [facility] RBC Auto (Bld) [#/Vol]Ordere d By: Rachael Posada on 06-21-2023 RBC (Bld) [#/Vol] 4.36 10*6/uL 4.6-6.2 [facility] Serum or plasma calcium patricia urement (mass/volume)Ordered By: Rachael Posada on 06-21-2023 Calcium [Mass/Vol] 9.0 mg/dL 8.5-10.1 [facility] Serum or plasma creatinine m easurement (mass/volume)Ordered By: Rachael Posada on 06-21-2023 Creatinine [Mass/Vol] 0.91 mg/dL 0.70-1.30 [facility] Comment on above: The validity of the calculated GFR & GFRAA in patients over 70 years has not been determined. Clinical correlation is essential. Serum or plasma urea nitroge n measurement (mass/volume)Ordered By: Rachael Posada on 06-21-2023 Urea nitrogen [Mass/Vol] 20 mg/dL 7-18 [facility] Thin prep Papanicolaou smear with manual screeningOrdered By: Rachael Posada on 06-21-2023 Thin prep Papanicolaou smear with manual screening 3.4 g/dL 3.2-5.0 [facility] Thin prep Papanicolaou smear with manual screening 14 U/L 15-37 [facility] Thin prep Papanicolaou smear with manual screening 2 5-15 [facility] Absolute lymphocyte countOrd ered By: Carolina Mcgee on 05-10-2023 Lymphocytes Auto (Unsp spec) [#/Vol] 2.45 10*3/uL 0.83-4.51 [facility] Basophil percentageOrdered B y: Carolina Mcgee on 05-10-2023 Basophils/100 WBC (Bld) 0.5 % 0-1 [facility] Bilirubin [Mass/Vol] 0.60 mg/dL 0.20-1.00 [facility] Comment on above: For patients on eltr ombopag therapy, use of Dimension [place] TBIL is not recommended. Chloride [Moles/Vol] 112 mmol/L 98-107 [facility] Eosinophils/100 WBC (Bld) 0.9 % 0-5 [facility] Glucose [Mass/Vol] 124 mg/dL 74-106 [facility] Comment on above: Fasting Glucose resu lt from 100 to 125 mg/dL suggests IMPAIRED HOMEOSTASIS per A.D.A. criteria. Neutrophils (Bld) [#/Vol] 2.8 10*3/uL 2.0-7.7 [facility] Neutrophils/100 WBC (Bld) 48.5 % 47-70 [facility] Potassium [Moles/Vol] 3.6 mmol/L 3.5-5.1 [facility] Protein [Mass/Vol] 7.1 g/dL 6.4-8.2 [facility] Sodium [Moles/Vol] 145 mmol/L 136-145 [facility] WBC (Bld) [#/Vol] 5.8 10*3/uL 4.4-11.0 [facility] Blood erythrocytes count (nu mber/volume)Ordered By: Carolina Mcgee on 05-10-2023 RBC (Bld) [#/Vol] 4.14 10*6/uL 4.6-6.2 [facility] Blood hemoglobin measurement (mass/volume)Ordered By: Carolina Mcgee on 05-10-2023 Hemoglobin (Bld) [Mass/Vol] 13.5 g/dL 13.0-16.5 [facility] Blood lymphocytes/100 leukoc ytesOrdered By: Carolina Mcgee on 05-10-2023 Lymphocytes/100 WBC (Bld) 42.5 % 19-41 [facility] Blood monocytes/100 leukocyt esOrdered By: Carolina Mcgee on 05-10-2023 Monocytes/100 WBC (Bld) 7.3 % 0-10 [facility] Blood platelet mean volumeOr dered By: Carolina Mcgee on 05-10-2023 Platelet mean volume (Bld) [Entitic vol] 9.1 fL 6.2-12.0 [facility] Determination of erythrocyte mean corpuscular volume (MCV)Ordered By: Carolina Mcgee on 05-10-2023 MCV (RBC) [Entitic vol] 100.2 fL 80-94 [facility] Hematocrit Auto (Bld) [Volum e fraction]Ordered By: Carolina Mcgee on 05-10-2023 Hematocrit (Bld) [Volume fraction] 41.5 % 40-54 [facility] Laboratory - Chemistry and C hemistry - challengeOrdered By: Carolina Mcgee on 05-10-2023 ALP [Catalytic activity/Vol] 90 U/L 45-117 [facility] ALT [Catalytic activity/Vol] 13 U/L 16-61 [facility] CO2 [Moles/Vol] 25.0 mmol/L 21.0-32.0 [facility] Globulin (S) [Mass/Vol] 3.8 g/dL 2.2-4.2 [facility] Urea nitrogen/Creatinine [Mass ratio] 19.8 mg/mg 10-20 [facility] Laboratory - Hematology and Cell countsOrdered By: Carolina Mcgee on 05-10-2023 Erythrocyte distribution width (RBC) [Entitic vol] 49.9 fL 35.1-43.9 [facility] Erythrocyte distribution width (RBC) [Ratio] 13.3 % 11.6-14.6 [facility] Immature granulocytes/100 WBC (Bld) 0.300 % 0.0-0.9 [facility] Comment on above: IG% - Immature Granu locytes (promyelocytes, myelocytes and metamyelocytes) > 1% indicates that a LEFT SHIFT is Present. MCH (RBC) [Entitic mass] 32.6 pg 27.0-32.0 [facility] Nucleated RBC/100 WBC (Bld) [Ratio] 0 % 0-5 [facility] MCHC Auto (RBC) [Mass/Vol]Or dered By: Carolina Mcgee on 05-10-2023 MCHC (RBC) [Mass/Vol] 32.5 g/dL 32-36 [facility] No Panel InformationOrdered By: Carolina Mcgee on 05-10-2023 Estimated Creatinine Clearance Calc 52.61 ml/min [facility] Estimated GFR (MDRD) Amer 85 mL/min >60 [facility] Comment on above: GFR Calc Estimated GFR (MDRD) Non-Af Amer 70 mL/min >60 [facility] Comment on above: Non- GFR Calc Prostate Specific Antigen Total 32.00 ng/mL 0.0-4.0 [facility] Comment on above: This test was perfor med using the TPSA assay method for the[facility] chemistry system. Values obtained with differentassay methods cannot be used interchangably.When changing PSA assays in the course of monitoring apatient, additional sequential testing should be carriedout to confirm baseline values. Platelets bldOrdered By: Graham anvi Arely on 05-10-2023 Platelets (Bld) [#/Vol] 204 10*3/uL 150-450 [facility] Serum or plasma albumin patricia urement (mass/volume)Ordered By: Carolina Mcgee on 05-10-2023 Albumin [Mass/Vol] 3.3 g/dL 3.2-5.0 [facility] Serum or plasma albumin/glob ulin mass ratioOrdered By: [facility] on 05-10-2023 Albumin/Globulin [Mass ratio] 0.9 {ratio} 0.9-2.4 [facility] Serum or plasma calcium patricia urement (mass/volume)Ordered By: Carolina Mcgee on 05-10-2023 Calcium [Mass/Vol] 8.0 mg/dL 8.5-10.1 [facility] Serum or plasma creatinine m easurement (mass/volume)Ordered By: Carolina Mcgee on 05-10-2023 Creatinine [Mass/Vol] 1.06 mg/dL 0.70-1.30 [facility] Comment on above: The validity of the calculated GFR & GFRAA in patients over 70 years has not been determined. Clinical correlation is essential. Serum or plasma urea nitroge n measurement (mass/volume)Ordered By: Carolina Mcgee on 05-10-2023 Urea nitrogen [Mass/Vol] 21 mg/dL 7-18 [facility] Thin prep Papanicolaou smear with manual screeningOrdered By: Carolina Mcgee on 05-10-2023 Thin prep Papanicolaou smear with manual screening 13 U/L 15-37 [facility] Thin prep Papanicolaou smear with manual screening 8 5-15 [facility] XR HUMERUS LEFTon 04-12-2023 XR HUMERUS [...] aggressive lytic lesion with cortical invasion. Normal [facility] XR Humerus - left Viewson EXAM: XR [...] Underlying aggressive lytic lesion with cortical invasion. [facility] Radiology Study observation (narrative) [facility] XR Humerus - left ViewsOrder ed By: Paulo Trujillo on 04-12-2023 [facility] Work Phone: Absolute lymphocyte countOrd ered By: Carolina Mcgee on 03-29-2023 Lymphocytes Auto (Unsp spec) [#/Vol] 3.04 10*3/uL 0.83-4.51 [facility] Basophil percentageOrdered B y: Carolina Mcgee on 03-29-2023 Basophils/100 WBC (Bld) 0.4 % 0-1 [facility] Bilirubin [Mass/Vol] 0.50 mg/dL 0.20-1.00 [facility] Comment on above: For patients on eltr ombopag therapy, use of Dimension [place] TBIL is not recommended. Chloride [Moles/Vol] 111 mmol/L 98-107 [facility] Eosinophils/100 WBC (Bld) 1.2 % 0-5 [facility] Glucose [Mass/Vol] 134 mg/dL 74-106 [facility] Comment on above: Fasting Glucose resu lt greater than or equal to 126 mg/dL suggests DIABETES MELLITUS per A.D.A. criteria. Neutrophils (Bld) [#/Vol] 3.0 10*3/uL 2.0-7.7 [facility] Neutrophils/100 WBC (Bld) 44.6 % 47-70 [facility] Potassium [Moles/Vol] 3.7 mmol/L 3.5-5.1 [facility] Protein [Mass/Vol] 7.5 g/dL 6.4-8.2 [facility] Sodium [Moles/Vol] 142 mmol/L 136-145 [facility] WBC (Bld) [#/Vol] 6.7 10*3/uL 4.4-11.0 [facility] Blood erythrocytes count (nu mber/volume)Ordered By: Carolina Mcgee on 03-29-2023 RBC (Bld) [#/Vol] 4.13 10*6/uL 4.6-6.2 [facility] Blood hemoglobin measurement (mass/volume)Ordered By: Carolina Mcgee on 03-29-2023 Hemoglobin (Bld) [Mass/Vol] 13.9 g/dL 13.0-16.5 [facility] Blood lymphocytes/100 leukoc ytesOrdered By: Carolina Mcgee on 03-29-2023 Lymphocytes/100 WBC (Bld) 45.6 % 19-41 [facility] Blood monocytes/100 leukocyt esOrdered By: Carolina Mcgee on 03-29-2023 Monocytes/100 WBC (Bld) 7.8 % 0-10 [facility] Blood platelet mean volumeOr dered By: Carolina Mcgee on 03-29-2023 Platelet mean volume (Bld) [Entitic vol] 8.8 fL 6.2-12.0 [facility] Determination of erythrocyte mean corpuscular volume (MCV)Ordered By: Carolina Mcgee on 03-29-2023 MCV (RBC) [Entitic vol] 101.5 fL 80-94 [facility] Hematocrit Auto (Bld) [Volum e fraction]Ordered By: Carolina Mcgee on 03-29-2023 Hematocrit (Bld) [Volume fraction] 41.9 % 40-54 [facility] Laboratory - Chemistry and C hemistry - challengeOrdered By: [facility]-29[facility]23 ALP [Catalytic activity/Vol] 134 U/L 45-117 [facility] ALT [Catalytic activity/Vol] 14 U/L 16-61 [facility] CO2 [Moles/Vol] 27.0 mmol/L 21.0-32.0 [facility] Globulin (S) [Mass/Vol] 4.2 g/dL 2.2-4.2 [facility] Urea nitrogen/Creatinine [Mass ratio] 23.9 mg/mg 10-20 [facility] - Hematology and Cell countsOrdered By: Carolina Mcgee on 03-29-2023 Erythrocyte distribution width (RBC) [Entitic vol] 49.7 fL 35.1-43.9 [facility] Erythrocyte distribution width (RBC) [Ratio] 13.2 % 11.6-14.6 [facility] Immature granulocytes/100 WBC (Bld) 0.400 % 0.0-0.9 [facility] Comment on above: IG% - Immature Granu locytes (promyelocytes, myelocytes and metamyelocytes) > 1% indicates that a LEFT SHIFT is Present. MCH (RBC) [Entitic mass] 33.7 pg 27.0-32.0 [facility] Nucleated RBC/100 WBC (Bld) [Ratio] 0 % 0-5 [facility] MCHC Auto (RBC) [Mass/Vol]Or dered By: Carolina Mcgee on 03-29-2023 MCHC (RBC) [Mass/Vol] 33.2 g/dL 32-36 [facility] No Panel InformationOrdered By: Carolina Mcgee on 03-29-2023 Estimated Creatinine Clearance Calc 49.35 ml/min [facility] Estimated GFR (MDRD) Amer 79 mL/min >60 [facility] Comment on above: GFR Calc Estimated GFR (MDRD) Non-Af Amer 65 mL/min >60 [facility] Comment on above: Non- GFR Calc Prostate Specific Antigen Total 539.00 ng/mL 0.0-4.0 [facility] Comment on above: This test was perfor med using the TPSA assay method for the[employer] chemistry system. Values obtained with differentassay methods cannot be used interchangably.When changing PSA assays in the course of monitoring apatient, additional sequential testing should be carriedout to confirm baseline values. Platelets bldOrdered By: Graham Mcgee on 03-29-2023 Platelets (Bld) [#/Vol] 196 10*3/uL 150-450 [facility] Serum or plasma albumin patricia urement (mass/volume)Ordered By: Carolina Mcgee on 03-29-2023 Albumin [Mass/Vol] 3.3 g/dL 3.2-5.0 [facility] Serum or plasma albumin/glob ulin mass ratioOrdered By: Carolina Mcgee on 03-29-2023 Albumin/Globulin [Mass ratio] 0.8 {ratio} 0.9-2.4 [facility] Serum or plasma calcium patricia urement (mass/volume)Ordered By: Carolina Mcgee on 03-29-2023 Calcium [Mass/Vol] 8.7 mg/dL 8.5-10.1 [facility] Serum or plasma creatinine m easurement (mass/volume)Ordered By: Carolina Mcgee on 03-29-2023 Creatinine [Mass/Vol] 1.13 mg/dL 0.70-1.30 [facility] Comment on above: The validity of the calculated GFR & GFRAA in patients over 70 years has not been determined. Clinical correlation is essential. Serum or plasma urea nitroge n measurement (mass/volume)Ordered By: Carolina Mcgee on 03-29-2023 Urea nitrogen [Mass/Vol] 27 mg/dL 7-18 [facility] Thin prep Papanicolaou smear with manual screeningOrdered By: [facility] on 03-29-2023 Thin prep Papanicolaou smear with manual screening 11 U/L 15-37 [facility] Thin prep Papanicolaou smear with manual screening 4 5-15 [facility] Laboratory - Hematology and Cell countson 03-24-2023 HbA1c (Bld) [Mass fraction] 5.9 % 4.2-6.3 [facility] XR HUMERUS LEFTon 03-12-2023 XR HUMERUS [...] callus formation at the fracture margin. Normal [facility] XR Humerus - left Viewson IMPRESSION: 1. [...] immature callus formation at the fracture margin. [facility] Radiology Study observation (narrative) [facility] XR Humerus - left ViewsOrder ed By: Paulo Trujillo on 03-12-2023 [facility] Work Phone: Absolute lymphocyte countOrd ered By: Carolina Mcgee on 02-24-2023 Lymphocytes Auto (Unsp spec) [#/Vol] 1.69 10*3/uL 0.83-4.51 [facility] Basophil percentageOrdered B y: Carolina Mcgee on 02-24-2023 Basophils/100 WBC (Bld) 0.4 % 0-1 [facility] Bilirubin [Mass/Vol] 0.70 mg/dL 0.20-1.00 [facility] Comment on above: For patients on eltr ombopag therapy, use of Dimension [place] TBIL is not recommended. Chloride [Moles/Vol] 108 mmol/L 98-107 [facility] Eosinophils/100 WBC (Bld) 0.4 % 0-5 [facility] Glucose [Mass/Vol] 139 mg/dL 74-106 [facility] Comment on above: Fasting Glucose resu lt greater than or equal to 126 mg/dL suggests DIABETES MELLITUS per A.D.A. criteria. Neutrophils (Bld) [#/Vol] 5.0 10*3/uL 2.0-7.7 [facility] Neutrophils/100 WBC (Bld) 67.8 % 47-70 [facility] Potassium [Moles/Vol] 4.2 mmol/L 3.5-5.1 [facility] Protein [Mass/Vol] 7.3 g/dL 6.4-8.2 [facility] Sodium [Moles/Vol] 139 mmol/L 136-145 [facility] WBC (Bld) [#/Vol] 7.4 10*3/uL 4.4-11.0 [facility] Blood erythrocytes count (nu mber/volume)Ordered By: Carolina Mcgee on 02-24-2023 RBC (Bld) [#/Vol] 4.42 10*6/uL 4.6-6.2 [facility] Blood hemoglobin measurement (mass/volume)Ordered By: Carolina Mcgee on 02-24-2023 Hemoglobin (Bld) [Mass/Vol] 14.5 g/dL 13.0-16.5 [facility] Blood lymphocytes/100 leukoc ytesOrdered By: Carolina Mcgee on 02-24-2023 Lymphocytes/100 WBC (Bld) 22.8 % 19-41 [facility] Blood monocytes/100 leukocyt esOrdered By: [facility] on 02-24-2023 Monocytes/100 WBC (Bld) 7.4 % 0-10 [facility] Blood platelet mean volumeOr dered By: [facility] on 02-24-2023 Platelet mean volume (Bld) [Entitic vol] 8.8 fL 6.2-12.0 [facility] Determination of erythrocyte mean corpuscular volume (MCV)Ordered By: Carolina Mcgee on 02-24-2023 MCV (RBC) [Entitic vol] 100.9 fL 80-94 [facility] Hematocrit Auto (Bld) [Volum e fraction]Ordered By: [facility] Aerly on 02-24-2023 Hematocrit (Bld) [Volume fraction] 44.6 % 40-54 [facility] - Chemistry and C hemistry - challengeOrdered By: [facility] Arely on 02-24-2023 ALP [Catalytic activity/Vol] 228 U/L 45-117 [facility] ALT [Catalytic activity/Vol] 18 U/L 16-61 [facility] CO2 [Moles/Vol] 27.0 mmol/L 21.0-32.0 [facility] Globulin (S) [Mass/Vol] 4.0 g/dL 2.2-4.2 [facility] Urea nitrogen/Creatinine [Mass ratio] 20.9 mg/mg 10-20 [facility] - Hematology and Cell countsOrdered By: [facility] Arely on 02-24-2023 Erythrocyte distribution width (RBC) [Entitic vol] 48.3 fL 35.1-43.9 [facility] Erythrocyte distribution width (RBC) [Ratio] 12.9 % 11.6-14.6 [facility] Immature granulocytes/100 WBC (Bld) 1.200 % 0.0-0.9 [facility] Comment on above: IG% - Immature Granu locytes (promyelocytes, myelocytes and metamyelocytes) > 1% indicates that a LEFT SHIFT is Present. MCH (RBC) [Entitic mass] 32.8 pg 27.0-32.0 [facility] Nucleated RBC/100 WBC (Bld) [Ratio] 0 % 0-[address] [facility] Auto (RBC) [Mass/Vol]Or dered By: Carolina Mcgee on 02-24-2023 MCHC (RBC) [Mass/Vol] 32.5 g/dL 32-36 [facility] No Panel InformationOrdered By: Carolina Mcgee on 02-24-2023 Estimated GFR (MDRD) Amer 82 mL/min >60 [facility] Comment on above: GFR Calc Estimated GFR (MDRD) Non-Af Amer 68 mL/min >60 [facility] Comment on above: Non- GFR Calc Prostate Specific Antigen Total 823.00 ng/mL 0.0-4.0 [facility] Comment on above: This test was perfor med using the TPSA assay method for [employer] chemistry system. Values obtained with differentassay methods cannot be used interchangably.When changing PSA assays in the course of monitoring apatient, additional sequential testing should be carriedout to confirm baseline values. Platelets bldOrdered By: Graham Mcgee on 02-24-2023 Platelets (Bld) [#/Vol] 229 10*3/uL 150-450 [facility] Serum or plasma albumin patricia urement (mass/volume)Ordered By: Carolina Mcgee on 02-24-2023 Albumin [Mass/Vol] 3.3 g/dL 3.2-5.0 [facility] Serum or plasma albumin/glob ulin mass ratioOrdered By: Carolina Mcgee on 02-24-2023 Albumin/Globulin [Mass ratio] 0.8 {ratio} 0.9-2.4 [facility] Serum or plasma calcium patricia urement (mass/volume)Ordered By: Carolina Mcgee on 02-24-2023 Calcium [Mass/Vol] 8.8 mg/dL 8.5-10.1 [facility] Serum or plasma creatinine m easurement (mass/volume)Ordered By: Carolina Mcgee on 02-24-2023 Creatinine [Mass/Vol] 1.10 mg/dL 0.70-1.30 [facility] Comment on above: The validity of the calculated GFR & GFRAA in patients over 70 years has not been determined. Clinical correlation is essential. Serum or plasma urea nitroge n measurement (mass/volume)Ordered By: Carolina Mcgee on 02-24-2023 Urea nitrogen [Mass/Vol] 23 mg/dL 7-18 [facility] Thin prep Papanicolaou smear with manual screeningOrdered By: Carolina Mcgee on 02-24-2023 Thin prep Papanicolaou smear with manual screening 16 U/L 15-37 [facility] Thin prep Papanicolaou smear with manual screening 4 5-15 [facility] Absolute lymphocyte countOrd ered By: Mariana Stephanie on 02-13-2023 Lymphocytes Auto (Unsp spec) [#/Vol] 1.61 10*3/uL 0.83-4.51 [facility] Basophil percentageOrdered B y: Mariana Stephanie on 02-13-2023 Basophils/100 WBC (Bld) 0.5 % 0-1 [facility] Bilirubin [Mass/Vol] 0.70 mg/dL 0.20-1.00 [facility] Comment on above: For patients on eltr ombopag therapy, use of [employer] [place] TBIL is not recommended. Chloride [Moles/Vol] 112 mmol/L 98-107 [facility] Eosinophils/100 WBC (Bld) 0.8 % 0-5 [facility] Glucose [Mass/Vol] 134 mg/dL 74-106 [facility] Comment on above: Fasting Glucose resu lt greater than or equal to 126 mg/dL suggests DIABETES MELLITUS per A.D.A. criteria. Neutrophils (Bld) [#/Vol] 5.1 10*3/uL 2.0-7.7 [facility] Neutrophils/100 WBC (Bld) 68.9 % 47-70 [facility] Potassium [Moles/Vol] 4.0 mmol/L 3.5-5.1 [facility] Protein [Mass/Vol] 5.8 g/dL 6.4-8.2 [facility] Sodium [Moles/Vol] 143 mmol/L 136-145 [facility] WBC (Bld) [#/Vol] 7.4 10*3/uL 4.4-11.0 [facility] Blood erythrocytes count (nu mber/volume)Ordered By: Mariana Brown on 02-13-2023 RBC (Bld) [#/Vol] 4.06 10*6/uL 4.6-6.2 [facility] Blood hemoglobin measurement (mass/volume)Ordered By: Mariana Brown on 02-13-2023 Hemoglobin (Bld) [Mass/Vol] 13.5 g/dL 13.0-16.5 [facility] Blood lymphocytes/100 leukoc ytesOrdered By: Mariana Brown on 02-13-2023 Lymphocytes/100 WBC (Bld) 21.9 % 19-41 [facility] Blood monocytes/100 leukocyt esOrdered By: Mariana Brown on 02-13-2023 Monocytes/100 WBC (Bld) 7.5 % 0-10 [facility] Blood platelet mean volumeOr dered By: Mariana Brown on 02-13-2023 Platelet mean volume (Bld) [Entitic vol] 9.7 fL 6.2-12.0 [facility] Determination of erythrocyte mean corpuscular volume (MCV)Ordered By: Mariana Brown on 02-13-2023 MCV (RBC) [Entitic vol] 101.0 fL 80-94 [facility] Glucose Glucometer (BldC) [M ass/Vol]Ordered By: Ted Lee on 02-13-2023 Glucose [Mass/Vol] 149 mg/dL 74-106 [facility] Comment on above: MANAGEMENT OF PATIEN T CARE PER NURSING PROTOCOL Hematocrit Auto (Bld) [Volum e fraction]Ordered By: Mariana Brown on 02-13-2023 Hematocrit (Bld) [Volume fraction] 41.0 % 40-54 [facility] - Chemistry and C hemistry - challengeOrdered By: Mariana Brown on 02-13-2023 ALP [Catalytic activity/Vol] 89 U/L 45-117 [facility] ALT [Catalytic activity/Vol] 12 U/L 16-61 [facility] CO2 [Moles/Vol] 26.0 mmol/L 21.0-32.0 [facility] Globulin (S) [Mass/Vol] 3.2 g/dL 2.2-4.2 [facility] Urea nitrogen/Creatinine [Mass ratio] 21.8 mg/mg 10-20 [facility] - Hematology and Cell countsOrdered By: Mariana Brown on 02-13-2023 Erythrocyte distribution width (RBC) [Entitic vol] 48.1 fL 35.1-43.9 [facility] Erythrocyte distribution width (RBC) [Ratio] 12.9 % 11.6-14.6 [facility] Immature granulocytes/100 WBC (Bld) 0.400 % 0.0-0.9 [facility] Comment on above: IG% - Immature Granu locytes (promyelocytes, myelocytes and metamyelocytes) > 1% indicates that a LEFT SHIFT is Present. MCH (RBC) [Entitic mass] 33.3 pg 27.0-32.0 [facility] Nucleated RBC/100 WBC (Bld) [Ratio] 0 % 0-5 [facility] MCHC Auto (RBC) [Mass/Vol]Or dered By: Mariana Brown on 02-13-2023 MCHC (RBC) [Mass/Vol] 32.9 g/dL 32-36 [facility] No Panel InformationOrdered By: Mariana Brown on 02-13-2023 Estimated Creatinine Clearance Calc 60.61 ml/min [facility] Estimated GFR (MDRD) Amer 101 mL/min >60 [facility] Comment on above: GFR Calc Estimated GFR (MDRD) Non-Af Amer 83 mL/min >60 [facility] Comment on above: Non- GFR Calc Platelets bldOrdered By: Martinez Brown on 02-13-2023 Platelets (Bld) [#/Vol] 144 10*3/uL 150-450 [facility] Serum or plasma albumin patricia urement (mass/volume)Ordered By: Mariana Brown on 02-13-2023 Albumin [Mass/Vol] 2.6 g/dL 3.2-5.0 [facility] Serum or plasma albumin/glob ulin mass ratioOrdered By: Mariana Brown on 02-13-2023 Albumin/Globulin [Mass ratio] 0.8 {ratio} 0.9-2.4 [facility] Serum or plasma calcium patricia urement (mass/volume)Ordered By: Mariana Brown on 02-13-2023 Calcium [Mass/Vol] 8.3 mg/dL 8.5-10.1 [facility] Serum or plasma creatinine m easurement (mass/volume)Ordered By: Mariana Brown on 02-13-2023 Creatinine [Mass/Vol] 0.92 mg/dL 0.70-1.30 [facility] Comment on above: The validity of the calculated GFR & GFRAA in patients over 70 years has not been determined. Clinical correlation is essential. Serum or plasma urea nitroge n measurement (mass/volume)Ordered By: Mariana Brown on 02-13-2023 Urea nitrogen [Mass/Vol] 20 mg/dL 7-18 [facility] Thin prep Papanicolaou smear with manual screeningOrdered By: Mariana Brown on 02-13-2023 Thin prep Papanicolaou smear with manual screening 10 U/L 15-37 [facility] Thin prep Papanicolaou smear with manual screening 5 5-15 [facility] Absolute lymphocyte countOrd ered By: Simeon Gusman on 02-12-2023 Lymphocytes Auto (Unsp spec) [#/Vol] 1.81 10*3/uL 0.83-4.51 [facility] Basophil percentageOrdered B y: Simeon Gusman on 02-12-2023 Basophils/100 WBC (Bld) 0.4 % 0-1 [facility] Chloride [Moles/Vol] 110 mmol/L 98-107 [facility] Eosinophils/100 WBC (Bld) 0.5 % 0-5 [facility] Glucose [Mass/Vol] 145 mg/dL 74-106 [facility] Comment on above: Fasting Glucose resu lt greater than or equal to 126 mg/dL suggests DIABETES MELLITUS per A.D.A. criteria. Neutrophils (Bld) [#/Vol] 5.2 10*3/uL 2.0-7.7 [facility] Neutrophils/100 WBC (Bld) 66.8 % 47-70 [facility] Potassium [Moles/Vol] 3.6 mmol/L 3.5-5.1 [facility] Sodium [Moles/Vol] 142 mmol/L 136-145 [facility] WBC (Bld) [#/Vol] 7.7 10*3/uL 4.4-11.0 [facility] Blood erythrocytes count (nu mber/volume)Ordered By: Simeon Gusman on 02-12-2023 RBC (Bld) [#/Vol] 4.41 10*6/uL 4.6-6.2 [facility] Blood hemoglobin measurement (mass/volume)Ordered By: Simeon Gusman on 02-12-2023 Hemoglobin (Bld) [Mass/Vol] 14.4 g/dL 13.0-16.5 [facility] Blood lymphocytes/100 leukoc ytesOrdered By: Simeon Gusman on 02-12-2023 Lymphocytes/100 WBC (Bld) 23.5 % 19-41 [facility] Blood monocytes/100 leukocyt esOrdered By: Simeon Gusman on 02-12-2023 Monocytes/100 WBC (Bld) 8.2 % 0-10 [facility] Blood platelet mean volumeOr dered By: Simeon Gusman on 02-12-2023 Platelet mean volume (Bld) [Entitic vol] 9.2 fL 6.2-12.0 [facility] Determination of erythrocyte mean corpuscular volume (MCV)Ordered By: Simeon Gusman on 02-12-2023 MCV (RBC) [Entitic vol] 100.7 fL 80-94 [facility] Hematocrit Auto (Bld) [Volum e fraction]Ordered By: Simeon Gusman on 02-12-2023 Hematocrit (Bld) [Volume fraction] 44.4 % 40-54 [facility] - Chemistry and C hemistry - challengeOrdered By: Simeon Gusman on 02-12-2023 CO2 [Moles/Vol] 31.0 mmol/L 21.0-32.0 [facility] Urea nitrogen/Creatinine [Mass ratio] 26.4 mg/mg 10-20 [facility] - Chemistry and C hemistry - challengeOrdered By: Mariana Brown on 02-12-2023 Magnesium [Mass/Vol] 2.5 mg/dL 1.6-2.6 [facility] - Hematology and Cell countsOrdered By: Simeon Gusman on 02-12-2023 Erythrocyte distribution width (RBC) [Entitic vol] 48.6 fL 35.1-43.9 [facility] Erythrocyte distribution width (RBC) [Ratio] 13.0 % 11.6-14.6 [facility] Immature granulocytes/100 WBC (Bld) 0.600 % 0.0-0.9 [facility] Comment on above: IG% - Immature Granu locytes (promyelocytes, myelocytes and metamyelocytes) > 1% indicates that a LEFT SHIFT is Present. MCH (RBC) [Entitic mass] 32.7 pg 27.0-32.0 [facility] Nucleated RBC/100 WBC (Bld) [Ratio] 0 % 0-5 [facility] MCHC Auto (RBC) [Mass/Vol]Or dered By: Simeon Gusman on 02-12-2023 MCHC (RBC) [Mass/Vol] 32.4 g/dL 32-36 [facility] No Panel InformationOrdered By: Simeon Gusman on 02-12-2023 Estimated Creatinine Clearance Calc 52.61 ml/min [facility] Estimated GFR (MDRD) Amer 85 mL/min >60 [facility] Comment on above: GFR Calc Estimated GFR (MDRD) Non-Af Amer 70 mL/min >60 [facility] Comment on above: Non- GFR Calc Platelets bldOrdered By: Jerrell Gusman on 02-12-2023 Platelets (Bld) [#/Vol] 160 10*3/uL 150-450 [facility] Serum or plasma calcium patricia urement (mass/volume)Ordered By: Simeon Gusman on 02-12-2023 Calcium [Mass/Vol] 8.9 mg/dL 8.5-10.1 [facility] Serum or plasma creatinine m easurement (mass/volume)Ordered By: Simeon Gusman on 02-12-2023 Creatinine [Mass/Vol] 1.06 mg/dL 0.70-1.30 [facility] Comment on above: The validity of the calculated GFR & GFRAA in patients over 70 years has not been determined. Clinical correlation is essential. Serum or plasma urea nitroge n measurement (mass/volume)Ordered By: Simeon Gusman on 02-12-2023 Urea nitrogen [Mass/Vol] 28 mg/dL 7-18 [facility] Thin prep Papanicolaou smear with manual screeningOrdered By: Simeon Gusman on 02-12-2023 Thin prep Papanicolaou smear with manual screening 1 5-15 [facility] Absolute lymphocyte countOrd ered By: Dyan Kyle on 01-21-2023 Lymphocytes Auto (Unsp spec) [#/Vol] 2.87 10*3/uL 0.83-4.51 [facility] Basophil percentageOrdered B y: Dyan Kyle on 01-21-2023 Basophil percentage 0 SEEN /hpf 0-5 [facility] Basophils/100 WBC (Bld) 0.6 % 0-1 [facility] Bilirubin [Mass/Vol] 1.00 mg/dL 0.20-1.00 [facility] Comment on above: For patients on eltr ombopag therapy, use of Dimension [place] TBIL is not recommended. Chloride [Moles/Vol] 109 mmol/L 98-107 [facility] Cholesterol [Mass/Vol] 164 mg/dL <200 [facility] Comment on above: <200 mg/dL Desirable 200-240 mg/dL Borderline >240 mg/dL High Risk Eosinophils/100 WBC (Bld) 1.2 % 0-5 [facility] Glucose [Mass/Vol] 129 mg/dL 74-106 [facility] Comment on above: Fasting Glucose resu lt greater than or equal to 126 mg/dL suggests DIABETES MELLITUS per A.D.A. criteria. Neutrophils (Bld) [#/Vol] 3.1 10*3/uL 2.0-7.7 [facility] Neutrophils/100 WBC (Bld) 47.1 % 47-70 [facility] Potassium [Moles/Vol] 4.6 mmol/L 3.5-5.1 [facility] Protein [Mass/Vol] 7.2 g/dL 6.4-8.2 [facility] Sodium [Moles/Vol] 141 mmol/L 136-145 [facility] Triglyceride [Mass/Vol] 88 mg/dL <199 [facility] Comment on above: The drugs N-Acetylcy steine and Metamizole may falsely depress this assay.Serum Triglycerides Reference Interval Normal <150 mg/dL Borderline high 150 - 199 mg/dL High 200 - 499 mg/dL Very High > or = 500 mg/dL WBC (Bld) [#/Vol] 6.5 10*3/uL 4.4-11.0 [facility] Bilirubin Test strip Ql (U)O rdered By: Dyan Kyle on 01-21-2023 Bilirubin Ql (U) Negative Negative [facility] Blood erythrocytes count (nu mber/volume)Ordered By: Dyan Kyle on 01-21-2023 RBC (Bld) [#/Vol] 4.51 10*6/uL 4.6-6.2 [facility] Blood hemoglobin measurement (mass/volume)Ordered By: Dyan Kyle on 01-21-2023 Hemoglobin (Bld) [Mass/Vol] 14.9 g/dL 13.0-16.5 [facility] Blood lymphocytes/100 leukoc ytesOrdered By: Dyan Kyle on 01-21-2023 Lymphocytes/100 WBC (Bld) 43.9 % 19-41 [facility] Blood monocytes/100 leukocyt esOrdered By: Dyan Kyle on 01-21-2023 Monocytes/100 WBC (Bld) 6.9 % 0-10 [facility] Blood platelet mean volumeOr dered By: Dyan Kyle on 01-21-2023 Platelet mean volume (Bld) [Entitic vol] 10.5 fL 6.2-12.0 [facility] Determination of erythrocyte mean corpuscular volume (MCV)Ordered By: Dyan Kyle on 01-21-2023 MCV (RBC) [Entitic vol] 102.2 fL 80-94 [facility] Erythrocyte sedimentation ra teOrdered By: Dyan Kyle on 01-21-2023 ESR (Bld) [Velocity] 6 mm/h 0-20 [facility] Hematocrit Auto (Bld) [Volum e fraction]Ordered By: Dyan Kyle on 01-21-2023 Hematocrit (Bld) [Volume fraction] 46.1 % 40-54 [facility] Ketones Test strip Ql (U)Ord ered By: Dyan Kyle on 01-21-2023 Ketones Ql (U) 5 mg/dl Negative [facility] - Chemistry and C hemistry - challengeOrdered By: Dyan Kyle on 01-21-2023 ALP [Catalytic activity/Vol] 84 U/L 45-117 [facility] ALT [Catalytic activity/Vol] 15 U/L 16-61 [facility] [facility] CO2 [Moles/Vol] 25.0 mmol/L 21.0-32.0 [facility] Free T4 [Mass/Vol] 1.15 ng/dL 0.76-1.46 [facility] Globulin (S) [Mass/Vol] 3.7 g/dL 2.2-4.2 [facility] Urea nitrogen/Creatinine [Mass ratio] 19.8 mg/mg 10-20 [facility] Laboratory - Hematology and Cell countsOrdered By: Dyan Kyle on 01-21-2023 Erythrocyte distribution width (RBC) [Entitic vol] 50.8 fL 35.1-43.9 [facility] Erythrocyte distribution width (RBC) [Ratio] 13.3 % 11.6-14.6 [facility] Immature granulocytes/100 WBC (Bld) 0.300 % 0.0-0.9 [facility] Comment on above: IG% - Immature Granu locytes (promyelocytes, myelocytes and metamyelocytes) > 1% indicates that a LEFT SHIFT is Present. MCH (RBC) [Entitic mass] 33.0 pg 27.0-32.0 [facility] Nucleated RBC/100 WBC (Bld) [Ratio] 0 % 0-5 [facility] MCHC Auto (RBC) [Mass/Vol]Or dered By: Dyan Kyle on 01-21-2023 MCHC (RBC) [Mass/Vol] 32.3 g/dL 32-36 [facility] Mucus LM Ql (Urine sed)Order ed By: Dyan Kyle on 01-21-2023 Mucus Ql (Urine sed) 0 SEEN /hpf [facility] Nitrite Test strip Ql (U)Ord ered By: Dyan Kyle on 01-21-2023 Nitrite Ql (U) Negative Negative [facility] No Panel InformationOrdered By: Dyan Kyle on 01-21-2023 Estimated GFR (MDRD) Amer 81 mL/min >60 [facility] Comment on above: GFR Calc Estimated GFR (MDRD) Non-Af Amer 67 mL/min >60 [facility] Comment on above: Non- GFR Calc Prostate Specific Antigen Screen 513.00 ng/mL 0.00-4.00 [facility] Comment on above: This test was perfor med using the TPSA assay method for the[facility] system. Values obtained with differentassay methods cannot be used interchangably.When changing PSA assays in the course of monitoring apatient, additional sequential testing should be carriedout to confirm baseline values. Thyroid Stimulating Hormone (TSH) 1.86 uIU/mL 0.358-3.74 [facility] Platelets bldOrdered By: Shayne juanvania Kyle on 01-21-2023 Platelets (Bld) [#/Vol] 213 10*3/uL 150-450 [facility] Protein Test strip Ql (U)Ord ered By: Dyan Kyle on 01-21-2023 Protein Ql (U) Negative Negative [facility] Serum or plasma albumin patricia urement (mass/volume)Ordered By: Dyan Kyle on 01-21-2023 Albumin [Mass/Vol] 3.5 g/dL 3.2-5.0 [facility] Serum or plasma albumin/glob ulin mass ratioOrdered By: Dyan Kyle on 01-21-2023 Albumin/Globulin [Mass ratio] 0.9 {ratio} 0.9-2.4 [facility] Serum or plasma calcium patricia urement (mass/volume)Ordered By: Dyan Kyle on 01-21-2023 Calcium [Mass/Vol] 9.2 mg/dL 8.5-10.1 [facility] Serum or plasma cholesterol in HDL measurement (mass/volume)Ordered By: Dyan Kyle on 01-21-2023 Cholesterol in HDL [Mass/Vol] 54 mg/dL >40 [facility] Comment on above: The drugs N-Acetylcy steine and Metamizole may falsely depress this assay. Reference Range HDL <40 mg/dL Low HDL Cholesterol HDL >or= 60 mg/dL High HDL Cholesterol Serum or plasma cholesterol in VLDL measurement (mass/volume)Ordered By: Dyan Kyle on 01-21-2023 Cholesterol in VLDL [Mass/Vol] 18 mg/dL 5-40 [facility] Serum or plasma creatinine m easurement (mass/volume)Ordered By: Dyan Kyle on 01-21-2023 Creatinine [Mass/Vol] 1.11 mg/dL 0.70-1.30 [facility] Comment on above: The validity of the calculated GFR & GFRAA in patients over 70 years has not been determined. Clinical correlation is essential. Serum or plasma low density lipoprotein (LDL) cholesterol measurement (mass/volume)Ordered By: Dyan Kyle on 01-21-2023 Cholesterol in LDL [Mass/Vol] 92 mg/dL 0-130 [facility] Serum or plasma urea nitroge n measurement (mass/volume)Ordered By: Dyan Kyle on 01-21-2023 Urea nitrogen [Mass/Vol] 22 mg/dL 7-18 [facility] Squamous epithelial cells de tection in urine sediment by light microscopyOrdered By: Dyan Kyle on 01-21-2023 Epithelial cells.squamous LM Ql (Urine sed) 0 SEEN /hpf 0-5 [facility] Thin prep Papanicolaou smear with manual screeningOrdered By: Dyan Kyle on 01-21-2023 Thin prep Papanicolaou smear with manual screening 14 U/L 15-37 [facility] Thin prep Papanicolaou smear with manual screening 7 5-15 [facility] Urine blood detectionOrdered By: Dyan Kyle on 01-21-2023 RBC Ql (U) Negative Negative [facility] RBC Ql (U) 0 SEEN /hpf 0-5 [facility] Urine clarityOrdered By: Shayne Kyle on 01-21-2023 Clarity (U) Clear Clear [facility] Urine color determinationOrd ered By: Dyan Kyle on 01-21-2023 Color (U) Yellow Yellow [facility] Urine glucose detectionOrder ed By: Dyan Kyle on 01-21-2023 Glucose Ql (U) Normal mg/dl Normal [facility] Urine leukocyte esterase det ection by dipstickOrdered By: Dyan Kyle on 01-21-2023 Leukocyte esterase Test strip Ql (U) Negative Negative [facility] Urine pHOrdered By: Essence Kyle on 01-21-2023 pH (U) 5.0 [pH] 5.0 - 8.0 [facility] Urine sediment bacteria coun t by microscopy (number/high power field)Ordered By: Dyan Kyle on 08-31-2023 Bacteria LM.HPF (Urine sed) [#/Area] 0 /[HPF] None Seen [facility] Urine specific gravity measu rementOrdered By: Dyan Kyle on 01-21-2023 Specific gravity (U) [Rel density] 1.020 1.002-1.030 [facility] Urobilinogen Auto test strip Ql (U)Ordered By: Dyan Kyle on 01-21-2023 Urobilinogen Ql (U) Normal mg/dl Normal [facility] Laboratory - Hematology and Cell countson 01-20-2023 HbA1c (Bld) [Mass fraction] 6.2 % 4.2-6.3 [facility] Absolute lymphocyte counton 11-28-2021 Lymphocytes Auto (Unsp spec) [#/Vol] 3.25 10*3/uL 0.83-4.51 [facility] Work Phone: Basophil percentageon 2021 Basophils/100 WBC (Bld) 0.6 % 0-1 [facility] Work Phone: Bilirubin [Mass/Vol] 0.80 mg/dL 0.20-1.00 [facility] Work Phone: Comment on above: For patients on eltr ombopag therapy, use of Dimension [place] TBIL is not recommended. Chloride [Moles/Vol] 111 mmol/L 98-107 [facility] Work Phone: Cholesterol [Mass/Vol] 167 mg/dL <200 [facility] Work Phone: Comment on above: <200 mg/dL Desirable 200-240 mg/dL Borderline >240 mg/dL High Risk Eosinophils/100 WBC (Bld) 1.4 % 0-5 [facility] Work Phone: Glucose [Mass/Vol] 122 mg/dL 74-106 [facility] Work Phone: Comment on above: Fasting Glucose resu lt from 100 to 125 mg/dL suggests IMPAIRED HOMEOSTASIS per A.D.A. criteria. Neutrophils (Bld) [#/Vol] 2.6 10*3/uL 2.0-7.7 [facility] Work Phone: Neutrophils/100 WBC (Bld) 40.4 % 47-70 [facility] Work Phone: Potassium [Moles/Vol] 4.6 mmol/L 3.5-5.1 [facility] Work Phone: Protein [Mass/Vol] 7.1 g/dL 6.4-8.2 [facility] Work Phone: Sodium [Moles/Vol] 142 mmol/L 136-145 [facility] Work Phone: Triglyceride [Mass/Vol] 67 mg/dL <199 [facility] Work Phone: Comment on above: The drugs N-Acetylcy steine and Metamizole may falsely depress this assay.Serum Triglycerides Reference Interval Normal <150 mg/dL Borderline high 150 - 199 mg/dL High 200 - 499 mg/dL Very High > or = 500 mg/dL WBC (Bld) [#/Vol] 6.4 10*3/uL 4.4-11.0 [facility] Work Phone: Blood erythrocytes count (nu mber/volume)on 11-28-2021 RBC (Bld) [#/Vol] 4.37 10*6/uL 4.6-6.2 [facility] Work Phone: Blood hemoglobin measurement (mass/volume)on 11-28-2021 Hemoglobin (Bld) [Mass/Vol] 14.5 g/dL 13.0-16.5 [facility] Work Phone: Blood lymphocytes/100 leukoc yteson 11-28-2021 Lymphocytes/100 WBC (Bld) 50.5 % 19-41 [facility] Work Phone: Blood monocytes/100 leukocyt eson 11-28-2021 Monocytes/100 WBC (Bld) 6.8 % 0-10 [facility] Work Phone: Blood platelet mean volumeon 11-28-2021 Platelet mean volume (Bld) [Entitic vol] 10.8 fL 6.2-12.0 [facility] Work Phone: Determination of erythrocyte mean corpuscular volume (MCV)on 11-28-2021 MCV (RBC) [Entitic vol] 99.5 fL 80-94 [facility] Work Phone: Hematocrit Auto (Bld) [Volum e fraction]on 11-28-2021 Hematocrit (Bld) [Volume fraction] 43.5 % 40-54 [facility] Work Phone: Laboratory - Chemistry and C hemistry - challengeon 11-28-2021 ALP [Catalytic activity/Vol] 55 U/L 45-117 [facility] Work Phone: ALT [Catalytic activity/Vol] 16 U/L 16-61 [facility] Work Phone: CO2 [Moles/Vol] 29.0 mmol/L 21.0-32.0 [facility] Work Phone: Globulin (S) [Mass/Vol] 3.7 g/dL 2.2-4.2 [facility] Work Phone: Urea nitrogen/Creatinine [Mass ratio] 22.1 mg/mg 10-20 [facility] Work Phone: Laboratory - Hematology and Cell countson 11-28-2021 Erythrocyte distribution width (RBC) [Entitic vol] 48.6 fL 35.1-43.9 [facility] Work Phone: Erythrocyte distribution width (RBC) [Ratio] 13.2 % 11.6-14.6 [facility] Work Phone: Immature granulocytes/100 WBC (Bld) 0.300 % 0.0-0.9 [facility] Work Phone: Comment on above: IG% - Immature Granu locytes (promyelocytes, myelocytes and metamyelocytes) > 1% indicates that a LEFT SHIFT is Present. MCH (RBC) [Entitic mass] 33.2 pg 27.0-32.0 [facility] Work Phone: Nucleated RBC/100 WBC (Bld) [Ratio] 0 % 0-5 [facility] Work Phone: MCHC Auto (RBC) [Mass/Vol]on 11-28-2021 MCHC (RBC) [Mass/Vol] 33.3 g/dL 32-36 [facility] Work Phone: No Panel Informationon 11-28 Estimated GFR (MDRD) Amer 79 mL/min >60 [facility] Work Phone: Comment on above: GFR Calc Estimated GFR (MDRD) Non-Af Amer 66 mL/min >60 [facility] Work Phone: Comment on above: Non- GFR Calc Platelets bldon 11-28-2021 Platelets (Bld) [#/Vol] 193 10*3/uL 150-450 [facility] Work Phone: Serum or plasma albumin patricia urement (mass/volume)on 11-28-2021 Albumin [Mass/Vol] 3.4 g/dL 3.2-5.0 [facility] Work Phone: Serum or plasma albumin/glob ulin mass ratioon 11-28-2021 Albumin/Globulin [Mass ratio] 0.9 {ratio} 0.9-2.4 [facility] Work Phone: Serum or plasma calcium patricia urement (mass/volume)on 11-28-2021 Calcium [Mass/Vol] 9.0 mg/dL 8.5-10.1 [facility] Work Phone: Serum or plasma cholesterol in HDL measurement (mass/volume)on 11-28-2021 Cholesterol in HDL [Mass/Vol] 54 mg/dL >40 [facility] Work Phone: Comment on above: The drugs N-Acetylcy steine and Metamizole may falsely depress this assay. Reference Range HDL <40 mg/dL Low HDL Cholesterol HDL >or= 60 mg/dL High HDL Cholesterol Serum or plasma cholesterol in VLDL measurement (mass/volume)on 11-28-2021 Cholesterol in VLDL [Mass/Vol] 13 mg/dL 5-40 [facility] Work Phone: Serum or plasma creatinine m easurement (mass/volume)on 11-28-2021 Creatinine [Mass/Vol] 1.13 mg/dL 0.70-1.30 [facility] Work Phone: Comment on above: The validity of the calculated GFR & GFRAA in patients over 70 years has not been determined. Clinical correlation is essential. Serum or plasma low density lipoprotein (LDL) cholesterol measurement (mass/volume)on 11-28-2021 Cholesterol in LDL [Mass/Vol] 100 mg/dL 0-130 [facility] Work Phone: Serum or plasma urea nitroge n measurement (mass/volume)on 11-28-2021 Urea nitrogen [Mass/Vol] 25 mg/dL 7-18 [facility] Work Phone: Thin prep Papanicolaou smear with manual screeningon 11-28-2021 Thin prep Papanicolaou smear with manual screening 19 U/L 15-37 [facility] Work Phone: Thin prep Papanicolaou smear with manual screening 2 5-15 [facility] Work Phone: Laboratory - Hematology and Cell countson 11-27-2021 HbA1c (Bld) [Mass fraction] 5.7 % 4.2-6.3 [facility] Work Phone: [place] 12-13-2020 CNPN Telephone (INTMWS) JESS JAMES ([id number]) 1935 M Date Time Provider Department 12/13/20 JENNIFER TRENT INTMWS During your visit today, we recorded the following information about you: Lily Nguyễn RN 12/13/2020 4:13 PM Signed Patient notified of results and provider's instructions. Joce Hernandez APRN.CNP 11/28/2020 11:49 PM EDT Back to Top [...] Encounter Status:Closed by LILY NGUYỄN on 12/13/20 [facility] OBSOLETEon 12-13-2020 OBSOLETE Refill (INTMWS) JESS JAMES ([id number]) 1935 M Date Time Provider Department 12/13/20 [...] Thank you. Lily Nguyễn RN Joce Hernandez APRN.[employer] 12/13/2020 4:15 PM Signed The following approved medication requests have been transmitted electronically. Signed Prescriptions Disp Refills metFORMIN ER (GLUCOPHAGE XR) 500 mg 24 hr tablet 90 tablet 3 Sig: Take 1 tablet by mouth daily with breakfast. MICA: No Authorizing Provider: JOCE HERNANDEZ APRN.[employer] Allergies As of Date: 12/13/2020 Noted [...] Encounter Status:Closed by JOCE HERNA[facility]DEZ [facility]/13/[facility] Nurse Visit (FAMPWS) JESS JAMES ([id number]) 1935 M Date Time Provider Department 11/28/20 9:45 AM [place] [facility] During your visit today, we recorded the [...] Sophia Pineda LPN Referring Provider: JOCE HERNANDEZ [[id number]] Allergies As of Date: 11/28/2020 Noted Allergy [...] Status:Closed by SOPHIA PINEDA LPN on 11/28/20 [facility] 11-28-2020 [facility] Telephone (INTMWS) JESS JAMES ([id number]) 1935 M Date Time Provider Department 11/28/20 [...] by HAILEY PIMENTEL MA on 11/29/20 [facility] Remote BMP (for [facility] use only )on 11-22-2020 Anion gap [Moles/Vol] 12 mmol/L Normal 9-18 [facility] Comment on above: Performed By: #### R BMP, RHBA1C #### [facility] [employer], [place] [address] Calcium [Mass/Vol] 9.4 mg/dL Normal 8.5-10.2 [facility] Comment on above: Performed By: #### R BMP, RHBA1C #### [facility] [employer] [address] [place], [place] [address] Chloride [Moles/Vol] 107 mmol/L High 97-105 [facility] Comment on above: Performed By: #### R BMP, RHBA1C #### [facility] [employer] [place], [place] [address] CO2 [Moles/Vol] 24 mmol/L Normal 22-30 [facility] Comment on above: Performed By: #### R BMP, RHBA1C #### [facility] [employer], [place] [id number] Creatinine [Mass/Vol] 1.15 mg/dL Normal 0.73-1.22 [facility] Comment on above: Performed By: #### R WARREN, RHBA1C #### [facility] [address] [place] [address] eGFR- Amer. >60 Normal [facility] Comment on above: Performed By: #### R WARREN, RHBA1C #### [facility] [address] [place] [address] eGFR-All Other Races >60 Normal [facility] Comment on above: Result Comment: eGFR [...] reflect actual GFR. Performed By: #### R WARREN RHBA1C #### [facility] [address] [place] [address] Glucose [Mass/Vol] 113 mg/dL High 74-99 [facility] Comment on above: Result Comment: The [place] Diabetes Association (ADA) provides guidance for cutoff [...] Standards of Medical Care in Diabetes 2016, [place] Diabetes Association. Diabetes Care. 2016.39(Suppl 1). Performed By: #### R WARREN, RHBA1C #### [facility] [address] [place] [address] Potassium [Moles/Vol] 4.5 mmol/L Normal 3.7-5.1 [facility] Comment on above: Performed By: #### R BMP, RHBA1C #### [facility] [address] [place] [address] Sodium [Moles/Vol] 143 mmol/L Normal 136-144 [facility] Comment on above: Performed By: #### R BMP, RHBA1C #### [place] [id number] [place] [address] Urea nitrogen [Mass/Vol] 27 mg/dL High 9-24 [facility] Comment on above: Performed By: #### R BMP, RHBA1C #### [place] [address] Remote HBA1C (for [facility] use on ly)on 11-22-2020 Glucose [Mass/Vol] 128 mg/dL Normal [facility] Comment on above: Result Comment: eAG: (Estimated average glucose) is a calculated value from HgbA1c and is hvac sales representative of the average blood glucose level in the last 2-3 month period. Performed By: #### R BMP, RHBA1C #### [facility] [address] [place] [address] HbA1c (Bld) [Mass fraction] 6.1 % High 4.3-5.6 [facility] Comment on above: Result Comment: Amer [place] Diabetes Association guidelines indicate that patients with HgbA1c in the range 5.7-6.4% are at increased risk for development of diabetes, and intervention by lifestyle modification may be beneficial. HgbA1c greater or equal to 6.5% is considered diagnostic of diabetes. Performed By: #### R BMP, RHBA1C #### [facility] [address] [place] [id number] CNPNon 09-24-2020 CNPN Telephone (PSYLME) JESS JAMES ([id number]) 1935 M Date Time Provider Department 09/24/20 FAUSTO DUBOIS During your visit today, we recorded the following information about you: TYRESE Young 09/24/2020 1:42 PM Signed Behavioral Health Social Work Progress Note Patient identified for [facility] from: PCP (Joce Hernandez CNP) Reason for referral: Resources Behavioral Health Resources: Psychology - talk therapy (situational depression) [facility] encounter type: Telephone Encounter Attempts to Outreach: 1 attempt Final Disposition: Unable to reach (09-24-20 let ) Patient Discharged?: No Patient reported that caregiver was able to meet their needs today?: N/A [facility] received a consult from Joce Hernandez CNP, for psychology, to address situational depression -since pandemic increased emotions -doesn't go anywhere -isolation has been depressing -several friends have [facility] reviewed Pt's chart/insurance Pt resides in [facility]/[employer] medicare [facility] attempted to contact Pt at [phone] -no answer -left vm to return call to [phone] -also left on voice message [facility] will be sending resources in a ltr [facility] will send the following resources in a ltr: [facility] [address], [facility] [address] [facility] [address] [place] [address] [employer] [address] [place] [address] [address] [place], [place] [id number] [employer] [facility] [address] Xiao [place], [place] [id number] If you are interested in receiving psychiatry/psychology services at the [facility], a behavioral health assessment needs to be completed prior to seeing a provider, I would be happy to complete your assessment, please call me at [phone] to schedule a virtual appointment. Crisis line [phone] [facility] will f/u with Pt ELOINA Young September 24, 2020 Allergies As of Date: 09/24/2020 Noted Allergy Reaction SHELLFISH DERIVED 12/12/2015 7 - Swelling Date Reviewed: 09/20/2020 Reviewed by: Viki Up MA - Fully Assessed Reason for Visit: Consult [173] Cmt: Initial [facility] Pt Outreach Prescriptions as of 09/24/2020 Sig: METFORMIN ER 500 MG TABLET,EX* Take 1 tablet by mouth daily * CENTRUM SILVER MEN ORAL Take by mouth. Problem List As Of Date 09/24/2020 Noted Resolved Closed fracture of part of fibula [S82.409A] 12/24/2015 Letter Text Encounter Status:Closed by FAUSTO DUBOIS on 09/24/20 [facility] CNOVon 09-20-2020 CNOV Office Visit (INTMWS ) JESS JAMES ([id number]) 1935 M Date Time Provider Department 09/20/20 [...] disease, without long-term current use of insulin ([facility]) - ICD9: 250.40, 585.3, ICD10: E11.22, N18.30 (primary diagnosis) Controlled. - Continue current medications - Check HgA1C and BMP in October 2020 as discussed - Follow up in 6 months, sooner should any other issues arise. - BP goal of <130/80 - LDL goal of <100 - BMP (more content not included)... [facility] OBSOLETEon 09-16-2020 OBSOLETE Refill (INTMWS) JESS JAMES ([id number]) 1935 M Date Time Provider Department 09/16/20 JOCE HERNANDEZ (GEORGIE) ANNABELLA During your visit today, we recorded the following information about you: Eileen Karl Admin Sec 09/16/2020 11:17 AM Signed Patient [...] MICA: No Please review and advise. Eileen Karl Admin Sec Susan Guerrero LPN 09/16/2020 12:44 [...] Status:Closed by JENNIFER TRENT on 09/17/20 [facility] Vital Signs Date Time Vital Sign Value Performing Clinician Faci lity 03-22-2025 15:35-0400 Diastolic blood pressure 59 mm[Hg] Dr. Dyan Kyle MD Work Phone: [facility] 03-22-2025 15:35-0400 Heart rate 61 /min Dr. Dyan Kyle MD Work Phone: [facility] 03-22-2025 15:35-0400 Systolic blood pressure 134 mm[Hg] Dr. Dyan Kyle MD Work Phone: [facility] 03-22-2025 13:20-0400 Body height 177.[address] Dyan Kyle MD Work Phone: [facility] 03-22-2025 13:20-0400 Body mass index (BMI) [Ratio] 23.8 kg/m2 Dr. Dyan Kyle MD Work Phone: [facility] 03-22-2025 13:20-0400 Body temperature 98.2 [degF] Dr. Dyan Kyle MD Work Phone: [facility] 03-22-2025 13:20-0400 Body weight 75.[address] Dyan Kyle MD Work Phone: [facility] 03-22-2025 13:20-0400 Diastolic blood pressure 73 mm[Hg] Dr. Dyan Kyle MD Work Phone: [facility] 03-22-2025 13:20-0400 Heart rate 64 /min Dr. Dyan Kyle MD Work Phone: [facility] 03-22-2025 13:20-0400 Respiratory rate 18 /min Dr. Dyan Kyle MD Work Phone: [facility] 03-22-2025 13:20-0400 SaO2% (BldA) [Mass fraction] 96 % Dr. Dyan Kyle MD Work Phone: [facility] 03-22-2025 13:20-0400 Systolic blood pressure 120 mm[Hg] Dr. Dyan Kyle MD Work Phone: [facility] 03-12-2025 08:14-0400 Body mass index (BMI) [Ratio] 23.8 kg/m2 Dr. Dyan Kyle MD Work Phone: [facility] 03-12-2025 08:14-0400 Body weight 75.[address] Dyan Kyle MD Work Phone: [facility] 03-12-2025 08:14-0400 Diastolic blood pressure 78 mm[Hg] Dr. Dyan Kyle MD Work Phone: [facility] 03-12-2025 08:14-0400 Heart rate 74 /min Dr. Dyan Kyle MD Work Phone: [facility] 03-12-2025 08:14-0400 Respiratory rate 18 /min Dr. Dyan Kyle MD Work Phone: [facility] 03-12-2025 08:14-0400 SaO2% (BldA) [Mass fraction] 84 % Dr. Dyan Kyle MD Work Phone: [facility] 03-12-2025 08:14-0400 Systolic blood pressure 127 mm[Hg] Dr. Dyan Kyle MD Work Phone: [facility] 02-14-2025 09:35-0400 Body height 177.[address] Dyan Kyle MD Work Phone: [facility] 02-14-2025 09:35-0400 Body mass index (BMI) [Ratio] 24.2 kg/m2 Dr. Dyan Kyle MD Work Phone: [facility] 02-14-2025 09:35-0400 Body temperature 96.8 [degF] Dr. Dyan Kyle MD Work Phone: [facility] 02-14-2025 09:35-0400 Body weight 76.[address] Dyan Kyle MD Work Phone: [facility] 02-14-2025 09:35-0400 Diastolic blood pressure 78 mm[Hg] Dr. Dyan Kyle MD Work Phone: [facility] 02-14-2025 09:35-0400 Heart rate 92 /min Dr. Dyan Kyle MD Work Phone: [facility] 02-14-2025 09:35-0400 Respiratory rate 18 /min Dr. Dyan Kyle MD Work Phone: [facility] 02-14-2025 09:35-0400 SaO2% (BldA) [Mass fraction] 97 % Dr. Dyan Kyle MD Work Phone: [facility] 02-14-2025 09:35-0400 Systolic blood pressure 142 mm[Hg] Dr. Dyan Kyle MD Work Phone: [facility] 01-15-2025 08:03-0400 Body height 177.[address] Dyan Kyle MD Work Phone: [facility] 01-15-2025 08:03-0400 Body mass index (BMI) [Ratio] 24 kg/m2 Dr. Dyan Kyle MD Work Phone: [facility] 01-15-2025 08:03-0400 Body temperature 98.6 [degF] Dr. Dyan Kyle MD Work Phone: [facility] 01-15-2025 08:03-0400 Body weight 76.[address] Dyan Kyle MD Work Phone: [facility] 01-15-2025 08:03-0400 Diastolic blood pressure 46 mm[Hg] Dr. Dyan Kyle MD Work Phone: [facility] 01-15-2025 08:03-0400 Heart rate 58 /min Dr. Dyan Kyle MD Work Phone: [facility] 01-15-2025 08:03-0400 Respiratory rate 14 /min Dr. Dyan Kyle MD Work Phone: [facility] 01-15-2025 08:03-0400 Systolic blood pressure 94 mm[Hg] Dr. Dyan Kyle MD Work Phone: [facility] 12-24-2024 13:49-0400 Body temperature 98.5 [degF] Dr. Dyan Kyle MD Work Phone: [facility] 12-24-2024 13:49-0400 Diastolic blood pressure 60 mm[Hg] Dr. Dyan Kyle MD Work Phone: [facility] 12-24-2024 13:49-0400 Heart rate 83 /min Dr. Dyan Kyle MD Work Phone: [facility] 12-24-2024 13:49-0400 Respiratory rate 18 /min Dr. Dyan Kyle MD Work Phone: [facility] 12-24-2024 13:49-0400 SaO2% (BldA) [Mass fraction] 95 % Dr. Dyan Kyle MD Work Phone: [facility] 12-24-2024 13:49-0400 Systolic blood pressure 108 mm[Hg] Dr. Dyan Kyle MD Work Phone: [facility] 12-21-2024 16:07-0400 Body height 177.[address] Dyan Kyle MD Work Phone: [facility] 12-21-2024 16:07-0400 Body weight 81.[address] Dyan Kyle MD Work Phone: [facility] 12-19-2024 21:40-0400 Inhaled oxygen flow rate 2 L/min Dr. Dyan Kyle MD Work Phone: [facility] 12-19-2024 10:42-0400 Body mass index (BMI) [Ratio] 25.7 kg/m2 Dr. Dyan Kyle MD Work Phone: [facility] 12-18-2024 15:03-0400 Body temperature 97.8 [degF] Dr. Dyan Kyle MD Work Phone: [facility] 12-18-2024 15:03-0400 Diastolic blood pressure 87 mm[Hg] Dr. Dyan Kyle MD Work Phone: [facility] 12-18-2024 15:03-0400 Heart rate 59 /min Dr. Dyan Kyle MD Work Phone: [facility] 12-18-2024 15:03-0400 Respiratory rate 16 /min Dr. Dyan Kyle MD Work Phone: [facility] 12-18-2024 15:03-0400 SaO2% (BldA) [Mass fraction] 98 % Dr. Dyan Kyle MD Work Phone: [facility] 12-18-2024 15:03-0400 Systolic blood pressure 144 mm[Hg] Dr. Dyan Kyle MD Work Phone: [facility] 12-18-2024 11:52-0400 Body height 177.[address] Dyan Kyle MD Work Phone: [facility] 12-18-2024 11:52-0400 Body mass index (BMI) [Ratio] 26.4 kg/m2 Dr. Dyan Kyle MD Work Phone: [facility] 12-18-2024 11:52-0400 Body weight 83.[address] Dyan Kyle MD Work Phone: [facility] 11-07-2024 15:34-0400 Body temperature 97.5 [degF] Dr. Dyan Kyle MD Work Phone: [facility] 11-07-2024 15:34-0400 Diastolic blood pressure 74 mm[Hg] Dr. Dyan Kyle MD Work Phone: [facility] 11-07-2024 15:34-0400 Heart rate 49 /min Dr. Dyan Kyle MD Work Phone: [facility] 11-07-2024 15:34-0400 Respiratory rate 16 /min Dr. Dyan Kyle MD Work Phone: [facility] 11-07-2024 15:34-0400 SaO2% (BldA) [Mass fraction] 98 % Dr. Dyan Kyle MD Work Phone: [facility] 11-07-2024 15:34-0400 Systolic blood pressure 141 mm[Hg] Dr. Dyan Kyle MD Work Phone: [facility] 11-07-2024 14:56-0400 Body mass index (BMI) [Ratio] 25.5 kg/m2 Dr. Dyan Kyle MD Work Phone: [facility] 11-07-2024 14:56-0400 Body weight 80.[address] Dyan Kyle MD Work Phone: [facility] 11-07-2024 13:50-0400 Body height 177.[address] Dyan Kyle MD Work Phone: [facility] 11-07-2024 13:50-0400 Body mass index (BMI) [Ratio] 25.5 kg/m2 Dr. Dyan Kyle MD Work Phone: [facility] 11-07-2024 13:50-0400 Body temperature 97.9 [degF] Dr. Dyan Kyle MD Work Phone: [facility] 11-07-2024 13:50-0400 Body weight 80.[address] Dyan Kyle MD Work Phone: [facility] 11-07-2024 13:50-0400 Diastolic blood pressure 70 mm[Hg] Dr. Dyan Kyle MD Work Phone: [facility] 11-07-2024 13:50-0400 Heart rate 50 /min Dr. Dyan Kyle MD Work Phone: [facility] 11-07-2024 13:50-0400 Respiratory rate 16 /min Dr. Dyan Kyle MD Work Phone: [facility] 11-07-2024 13:50-0400 SaO2% (BldA) [Mass fraction] 94 % Dr. Dyan Kyle MD Work Phone: [facility] 11-07-2024 13:50-0400 Systolic blood pressure 130 mm[Hg] Dr. Dyan Kyle MD Work Phone: [facility] 10-25-2024 14:46-0400 Body height 177.[address] Dyan Kyle MD Work Phone: [facility] 10-25-2024 14:46-0400 Body mass index (BMI) [Ratio] 25.1 kg/m2 Dr. Dyan Kyle MD Work Phone: [facility] 10-25-2024 14:46-0400 Body temperature 97.7 [degF] Dr. Dyan Kyle MD Work Phone: [facility] 10-25-2024 14:46-0400 Body weight 79.[address] Dyan Kyle MD Work Phone: [facility] 10-25-2024 14:46-0400 Diastolic blood pressure 64 mm[Hg] Dr. Dyan Kyle MD Work Phone: [facility] 10-25-2024 14:46-0400 Heart rate 48 /min Dr. Dyan Kyle MD Work Phone: [facility] 10-25-2024 14:46-0400 Respiratory rate 16 /min Dr. Dyan Kyle MD Work Phone: [facility] 10-25-2024 14:46-0400 SaO2% (BldA) [Mass fraction] 97 % Dr. Dyan Kyle MD Work Phone: [facility] 10-25-2024 14:46-0400 Systolic blood pressure 110 mm[Hg] Dr. Dyan Kyle MD Work Phone: [facility] 09-26-2024 14:20-0400 Body mass index (BMI) [Ratio] 25.2 kg/m2 Dr. Dyan Kyle MD Work Phone: [facility] 09-26-2024 14:20-0400 Body temperature 97.3 [degF] Dr. Dyan Kyle MD Work Phone: [facility] 09-26-2024 14:20-0400 Body weight 79.[address] Dyan Kyle MD Work Phone: [facility] 09-26-2024 14:20-0400 Diastolic blood pressure 73 mm[Hg] Dr. Dyan Kyle MD Work Phone: [facility] 09-26-2024 14:20-0400 Heart rate 48 /min Dr. Dyan Kyle MD Work Phone: [facility] 09-26-2024 14:20-0400 Respiratory rate 16 /min Dr. Dyan Kyle MD Work Phone: [facility] 09-26-2024 14:20-0400 SaO2% (BldA) [Mass fraction] 93 % Dr. Dyan Kyle MD Work Phone: [facility] 09-26-2024 14:20-0400 Systolic blood pressure 121 mm[Hg] Dr. Dyan Kyle MD Work Phone: [facility] 09-12-2024 07:41-0400 Body mass index (BMI) [Ratio] 25.1 kg/m2 Dr. Dyan Kyle MD Work Phone: [facility] 09-12-2024 07:41-0400 Body weight 79.[address] Dyan Kyle MD Work Phone: [facility] 09-12-2024 07:41-0400 Diastolic blood pressure 89 mm[Hg] Dr. Dyan Kyle MD Work Phone: [facility] 09-12-2024 07:41-0400 Heart rate 59 /min Dr. Dyan Kyle MD Work Phone: [facility] 09-12-2024 07:41-0400 Respiratory rate 18 /min Dr. Dyan Kyle MD Work Phone: [facility] 09-12-2024 07:41-0400 SaO2% (BldA) [Mass fraction] 96 % Dr. Dyan Kyle MD Work Phone: [facility] 09-12-2024 07:41-0400 Systolic blood pressure 135 mm[Hg] Dr. Dyan Kyle MD Work Phone: [facility] 08-15-2024 17:04-0400 Diastolic blood pressure 55 mm[Hg] Dr. Dyan Kyle MD Work Phone: [facility] 08-15-2024 17:04-0400 Heart rate 48 /min Dr. Dyan Kyle MD Work Phone: [facility] 08-15-2024 17:04-0400 Respiratory rate 16 /min Dr. Dyan Kyle MD Work Phone: [facility] 08-15-2024 17:04-0400 Systolic blood pressure 140 mm[Hg] Dr. Dyan Kyle MD Work Phone: [facility] 08-15-2024 15:18-0400 Body mass index (BMI) [Ratio] 25.4 kg/m2 Dr. Dyan Kyle MD Work Phone: [facility] 08-15-2024 15:18-0400 Body temperature 97.7 [degF] Dr. Dyan Kyle MD Work Phone: [facility] 08-15-2024 15:18-0400 Body weight 80.[address] Dyan Kyle MD Work Phone: [facility] 08-15-2024 15:18-0400 Diastolic blood pressure 69 mm[Hg] Dr. Dyan Kyle MD Work Phone: [facility] 08-15-2024 15:18-0400 Heart rate 38 /min Dr. Dyan Kyle MD Work Phone: [facility] 08-15-2024 15:18-0400 Respiratory rate 16 /min Dr. Dyan Kyle MD Work Phone: [facility] 08-15-2024 15:18-0400 SaO2% (BldA) [Mass fraction] 94 % Dr. Dyan Kyle MD Work Phone: [facility] 08-15-2024 15:18-0400 Systolic blood pressure 132 mm[Hg] Dr. Dyan Kyle MD Work Phone: [facility] 07-04-2024 14:07-0500 Body height 177.[address] Dyan Kyle MD Work Phone: [facility] 07-04-2024 14:07-0500 Body mass index (BMI) [Ratio] 25.2 kg/m2 Dr. Dyan Kyle MD Work Phone: [facility] 07-04-2024 14:07-0500 Body temperature 97.6 [degF] Dr. Dyan Kyle MD Work Phone: [facility] 07-04-2024 14:07-0500 Body weight [address] Dyan Kyle MD Work Phone: [facility] 07-04-2024 14:07-0500 Diastolic blood pressure 82 mm[Hg] Dr. Dyan Kyle MD Work Phone: [facility] 07-04-2024 14:07-0500 Heart rate 53 /min Dr. Dyan Kyle MD Work Phone: [facility] 07-04-2024 14:07-0500 Respiratory rate 16 /min Dr. Dyan Kyle MD Work Phone: [facility] 07-04-2024 14:07-0500 SaO2% (BldA) [Mass fraction] 96 % Dr. Dyan Kyle MD Work Phone: [facility] 07-04-2024 14:07-0500 Systolic blood pressure 158 mm[Hg] Dr. Dyan Kyle MD Work Phone: [facility] 06-03-2024 18:38-0500 Body temperature 96.8 [degF] Dr. Dyan Kyle MD Work Phone: [facility] 06-03-2024 18:38-0500 Diastolic blood pressure 67 mm[Hg] Dr. Dyan Kyle MD Work Phone: [facility] 06-03-2024 18:38-0500 Heart rate 57 /min Dr. Dyan Kyle MD Work Phone: [facility] 06-03-2024 18:38-0500 Respiratory rate 18 /min Dr. Dyan Kyle MD Work Phone: [facility] 06-03-2024 18:38-0500 SaO2% (BldA) [Mass fraction] 96 % Dr. Dyan Kyle MD Work Phone: [facility] 06-03-2024 18:38-0500 Systolic blood pressure 143 mm[Hg] Dr. Dyan Kyle MD Work Phone: [facility] 05-23-2024 12:17-0500 Body temperature 96.3 [degF] Dr. Dyan Kyle MD Work Phone: [facility] 05-23-2024 12:17-0500 Diastolic blood pressure 64 mm[Hg] Dr. Dyan Kyle MD Work Phone: [facility] 05-23-2024 12:17-0500 Heart rate 51 /min Dr. Dyan Kyle MD Work Phone: [facility] 05-23-2024 12:17-0500 Respiratory rate 16 /min Dr. Dyan Kyle MD Work Phone: [facility] 05-23-2024 12:17-0500 SaO2% (BldA) [Mass fraction] 95 % Dr. Dyan Kyle MD Work Phone: [facility] 05-23-2024 12:17-0500 Systolic blood pressure 128 mm[Hg] Dr. Dyan Kyle MD Work Phone: [facility] 05-23-2024 11:23-0500 Body mass index (BMI) [Ratio] 25.2 kg/m2 Dr. Dyan Kyle MD Work Phone: [facility] 05-23-2024 10:32-0500 Body mass index (BMI) [Ratio] 25.2 kg/m2 Dr. Dyan Kyle MD Work Phone: [facility] 05-23-2024 10:32-0500 Body temperature 976 [degF] Dr. Dyan Kyle MD Work Phone: [facility] 05-23-2024 10:32-0500 Body weight 79.[address] Dyan Kyle MD Work Phone: [facility] 05-23-2024 10:32-0500 Diastolic blood pressure 66 mm[Hg] Dr. Dyan Kyle MD Work Phone: [facility] 05-23-2024 10:32-0500 Heart rate 53 /min Dr. Dyan Kyle MD Work Phone: [facility] 05-23-2024 10:32-0500 Respiratory rate 18 /min Dr. Dyan Kyle MD Work Phone: [facility] 05-23-2024 10:32-0500 SaO2% (BldA) [Mass fraction] 97 % Dr. Dyan Kyle MD Work Phone: [facility] 05-23-2024 10:32-0500 Systolic blood pressure 138 mm[Hg] Dr. Dyan Kyle MD Work Phone: [facility] 04-26-2024 16:45-0500 Body mass index (BMI) [Ratio] 17.8 kg/m2 Dr. Dyan Kyle MD Work Phone: [facility] 04-26-2024 16:45-0500 Body temperature 99.5 [degF] Dr. Dyan Kyle MD Work Phone: [facility] 04-26-2024 16:45-0500 Body weight 56.[address] Dyan Kyle MD Work Phone: [facility] 04-26-2024 16:45-0500 Diastolic blood pressure 78 mm[Hg] Dr. Dyan Kyle MD Work Phone: [facility] 04-26-2024 16:45-0500 Heart rate 48 /min Dr. Dyan Kyle MD Work Phone: [facility] 04-26-2024 16:45-0500 Respiratory rate 16 /min Dr. Dyan Kyle MD Work Phone: [facility] 04-26-2024 16:45-0500 SaO2% (BldA) [Mass fraction] 98 % Dr. Dyan Kyle MD Work Phone: [facility] 04-26-2024 16:45-0500 Systolic blood pressure 126 mm[Hg] Dr. Dyan Kyle MD Work Phone: [facility] 07-07-2023 10:40-0500 Body height 177.[address] Dyan Kyle Work Phone: [facility] 07-07-2023 10:40-0500 Body mass index (BMI) [Ratio] 25 kg/m2 Dr. Dyan Kyle Work Phone: [facility] 07-07-2023 10:40-0500 Body temperature 97.3 [degF] Dr. Dyan Kyle Work Phone: [facility] 07-07-2023 10:40-0500 Body weight 79.[address] Dyan Kyle Work Phone: [facility] 07-07-2023 10:40-0500 Diastolic blood pressure 80 mm[Hg] Dr. Dyan Kyle Work Phone: [facility] 07-07-2023 10:40-0500 Heart rate 92 /min Dr. Dyan Kyle Work Phone: [facility] 07-07-2023 10:40-0500 Respiratory rate 16 /min Dr. Dyan Kyle Work Phone: [facility] 07-07-2023 10:40-0500 SaO2% (BldA) [Mass fraction] 97 % Dr. Dyan Kyle Work Phone: [facility] 07-07-2023 10:40-0500 Systolic blood pressure 138 mm[Hg] Dr. Dyan Kyle Work Phone: [facility] 06-21-2023 16:21-0500 Body temperature 96.6 [degF] Dr. Dyan Kyle Work Phone: [facility] 06-21-2023 16:21-0500 Diastolic blood pressure 78 mm[Hg] Dr. Dyan Kyle Work Phone: [facility] 06-21-2023 16:21-0500 Heart rate 75 /min Dr. Dyan Kyle Work Phone: [facility] 06-21-2023 16:21-0500 Respiratory rate 16 /min Dr. Dyan Kyle Work Phone: [facility] 06-21-2023 16:21-0500 SaO2% (BldA) [Mass fraction] 99 % Dr. Dyan Kyle Work Phone: [facility] 06-21-2023 16:21-0500 Systolic blood pressure 143 mm[Hg] Dr. Dyan Kyle Work Phone: [facility] 06-21-2023 15:20-0500 Body height 177.[address] Dyan Kyle Work Phone: [facility] 06-21-2023 14:14-0500 Body mass index (BMI) [Ratio] 25.5 kg/m2 Dr. Dyan Kyle Work Phone: [facility] 06-21-2023 14:14-0500 Body temperature 97.8 [degF] Dr. Dyan Kyle Work Phone: [facility] 06-21-2023 14:14-0500 Body weight 80.[address] Dyan Kyle Work Phone: [facility] 06-21-2023 14:14-0500 Diastolic blood pressure 92 mm[Hg] Dr. Dyan Kyle Work Phone: [facility] 06-21-2023 14:14-0500 Heart rate 98 /min Dr. Dyan Kyle Work Phone: [facility] 06-21-2023 14:14-0500 Respiratory rate 15 /min Dr. Dyan Kyle Work Phone: [facility] 06-21-2023 14:14-0500 SaO2% (BldA) [Mass fraction] 97 % Dr. Dyan Kyle Work Phone: [facility] 06-21-2023 14:14-0500 Systolic blood pressure 169 mm[Hg] Dr. Dyan Kyle Work Phone: [facility] 05-10-2023 11:38-0500 Body height 177.[address] Dyan Kyel Work Phone: [facility] 05-10-2023 11:38-0500 Body mass index (BMI) [Ratio] 25.7 kg/m2 Dr. Dyan Kyle Work Phone: [facility] 05-10-2023 11:38-0500 Body temperature 98.3 [degF] Dr. Dyan Kyle Work Phone: [facility] 05-10-2023 11:38-0500 Body weight 81.[address] Dyan Kyle Work Phone: [facility] 05-10-2023 11:38-0500 Diastolic blood pressure 78 mm[Hg] Dr. Dyan Kyle Work Phone: [facility] 05-10-2023 11:38-0500 Heart rate 78 /min Dr. Dyan Kyle Work Phone: [facility] 05-10-2023 11:38-0500 Respiratory rate 18 /min Dr. Dyan Kyle Work Phone: [facility] 05-10-2023 11:38-0500 SaO2% (BldA) [Mass fraction] 97 % Dr. Dyan Kyle Work Phone: [facility] 05-10-2023 11:38-0500 Systolic blood pressure 140 mm[Hg] Dr. Dyan Kyle Work Phone: [facility] 03-29-2023 16:39-0500 Body temperature 97 [degF] Dr. Dyan Kyle Work Phone: [facility] 03-29-2023 16:39-0500 Diastolic blood pressure 68 mm[Hg] Dr. Dyan Kyle Work Phone: [facility] 03-29-2023 16:39-0500 Heart rate 67 /min Dr. Dyan Kyle Work Phone: [facility] 03-29-2023 16:39-0500 Respiratory rate 16 /min Dr. Dyan Kyle Work Phone: [facility] 03-29-2023 16:39-0500 SaO2% (BldA) [Mass fraction] 100 % Dr. Dyan Kyle Work Phone: [facility] 03-29-2023 16:39-0500 Systolic blood pressure 142 mm[Hg] Dr. Dyan Kyle Work Phone: [facility] 03-29-2023 15:37-0500 Body height 177.[address] Dyan Kyle Work Phone: [facility] 03-29-2023 15:37-0500 Body mass index (BMI) [Ratio] 25.3 kg/m2 Dr. Dyan Kyle Work Phone: [facility] 03-29-2023 15:37-0500 Body weight 80.[address] Dyan Kyle Work Phone: [facility] 03-29-2023 14:59-0500 Body mass index (BMI) [Ratio] 25.3 kg/m2 Dr. Dyan Kyle Work Phone: [facility] 03-29-2023 14:59-0500 Body temperature 97.5 [degF] Dr. Dyan Kyle Work Phone: [facility] 03-29-2023 14:59-0500 Body weight 80.[address] Dyan Kyle Work Phone: [facility] 03-29-2023 14:59-0500 Diastolic blood pressure 77 mm[Hg] Dr. Dyan Kyle Work Phone: [facility] 03-29-2023 14:59-0500 Heart rate 79 /min Dr. Dyan Kyle Work Phone: [facility] 03-29-2023 14:59-0500 Respiratory rate 18 /min Dr. Dyan Kyle Work Phone: [facility] 03-29-2023 14:59-0500 SaO2% (BldA) [Mass fraction] 97 % Dr. Dyan Kyle Work Phone: [facility] 03-29-2023 14:59-0500 Systolic blood pressure 151 mm[Hg] Dr. Dyan Kyle Work Phone: [facility] 03-24-2023 10:37-0400 Body mass index (BMI) [Ratio] 25.5 kg/m2 Dr. Dyan Kyle Work Phone: [facility] 03-24-2023 10:37-0400 Body temperature 97.9 [degF] Dr. Dyan Kyle Work Phone: [facility] 03-24-2023 10:37-0400 Body weight 80.[address] Dyan Kyle Work Phone: [facility] 03-24-2023 10:37-0400 Diastolic blood pressure 62 mm[Hg] Dr. Dyan Kyle Work Phone: [facility] 03-24-2023 10:37-0400 Heart rate 53 /min Dr. Dyan Kyle Work Phone: [facility] 03-24-2023 10:37-0400 Respiratory rate 16 /min Dr. Dyan Kyle Work Phone: [facility] 03-24-2023 10:37-0400 SaO2% (BldA) [Mass fraction] 93 % Dr. Dyan Kyle Work Phone: [facility] 03-24-2023 10:37-0400 Systolic blood pressure 120 mm[Hg] Dr. Dyan Kyle Work Phone: [facility] 02-24-2023 10:38-0400 Body height 177.[address] Dyan Kyle Work Phone: [facility] 02-24-2023 10:38-0400 Body mass index (BMI) [Ratio] 25.4 kg/m2 Dr. Dyan Kyle Work Phone: [facility] 02-24-2023 10:38-0400 Body temperature 97.5 [degF] Dr. Dyan Kyle Work Phone: [facility] 02-24-2023 10:38-0400 Body weight 80.[address] Dyan Kyle Work Phone: [facility] 02-24-2023 10:38-0400 Diastolic blood pressure 76 mm[Hg] Dr. Dyan Kyle Work Phone: [facility] 02-24-2023 10:38-0400 Heart rate 102 /min Dr. Dyan Kyle Work Phone: [facility] 02-24-2023 10:38-0400 Respiratory rate 16 /min Dr. Dyan Kyle Work Phone: [facility] 02-24-2023 10:38-0400 SaO2% (BldA) [Mass fraction] 94 % Dr. Dyan Kyle Work Phone: [facility] 02-24-2023 10:38-0400 Systolic blood pressure 134 mm[Hg] Dr. Dyan Kyle Work Phone: [facility] 02-17-2023 13:11-0400 Body height 177.[address] Dyan Kyle Work Phone: [facility] 02-17-2023 13:11-0400 Body mass index (BMI) [Ratio] 25.9 kg/m2 Dr. Dyan Kyle Work Phone: [facility] 02-17-2023 13:11-0400 Body temperature 97.4 [degF] Dr. Dyan Kyle Work Phone: [facility] 02-17-2023 13:11-0400 Body weight 81.[address] Dyan Kyle Work Phone: [facility] 02-17-2023 13:11-0400 Diastolic blood pressure 78 mm[Hg] Dr. Dyan Kyle Work Phone: [facility] 02-17-2023 13:11-0400 Heart rate 86 /min Dr. Dyan Kyle Work Phone: [facility] 02-17-2023 13:11-0400 Respiratory rate 18 /min Dr. Dyan Kyle Work Phone: [facility] 02-17-2023 13:11-0400 SaO2% (BldA) [Mass fraction] 96 % Dr. Dyan Kyle Work Phone: [facility] 02-17-2023 13:11-0400 Systolic blood pressure 126 mm[Hg] Dr. Dyan Kyle Work Phone: [facility] 02-14-2023 07:58-0400 SaO2% (BldA) [Mass fraction] 97 % Dr. Dyan Kyle Work Phone: [facility] 02-14-2023 07:40-0400 Body temperature 97.7 [degF] Dr. Dyan Kyle Work Phone: [facility] 02-14-2023 07:40-0400 Diastolic blood pressure 77 mm[Hg] Dr. Dyan Kyle Work Phone: [facility] 02-14-2023 07:40-0400 Heart rate 79 /min Dr. Dyan Kyle Work Phone: [facility] 02-14-2023 07:40-0400 Respiratory rate 16 /min Dr. Dyan Kyle Work Phone: [facility] 02-14-2023 07:40-0400 Systolic blood pressure 140 mm[Hg] Dr. Dyan Kyle Work Phone: [facility] 02-14-2023 06:00-0400 Body mass index (BMI) [Ratio] 25.7 kg/m2 Dr. Dyan Kyle Work Phone: [facility] 02-14-2023 06:00-0400 Body weight 81.[address] Dyan Kyle Work Phone: [facility] 02-14-2023 05:41-0400 Inhaled oxygen flow rate 2 L/min Dr. Dyan Kyle Work Phone: [facility] 02-12-2023 16:45-0400 Body height 177.[address] Dyan Kyle Work Phone: [facility] 02-12-2023 15:44-0400 Body temperature 98.3 [degF] Dr. Dyan Kyle Work Phone: [facility] 02-12-2023 15:44-0400 Diastolic blood pressure 76 mm[Hg] Dr. Dyan Kyle Work Phone: [facility] 02-12-2023 15:44-0400 Heart rate 85 /min Dr. Dyan Kyle Work Phone: [facility] 02-12-2023 15:44-0400 Respiratory rate 20 /min Dr. Dyan Kyle Work Phone: [facility] 02-12-2023 15:44-0400 SaO2% (BldA) [Mass fraction] 95 % Dr. Dyan Kyle Work Phone: [facility] 02-12-2023 15:44-0400 Systolic blood pressure 160 mm[Hg] Dr. Dyan Kyle Work Phone: [facility] 02-12-2023 12:54-0400 Body height 177.[address] Dyan Kyle Work Phone: [facility] 02-12-2023 12:54-0400 Body mass index (BMI) [Ratio] 25.5 kg/m2 Dr. Dyan Kyle Work Phone: [facility] 02-12-2023 12:54-0400 Body weight 80.[address] Dyan Kyle Work Phone: [facility] 02-12-2023 11:36-0400 Body mass index (BMI) [Ratio] 24 kg/m2 Dr. Dyan Kyle Work Phone: [facility] 02-12-2023 11:36-0400 Body temperature 99.6 [degF] Dr. Dyan Kyle Work Phone: [facility] 02-12-2023 11:36-0400 Body weight 80.[address] Dyan Kyle Work Phone: [facility] 02-12-2023 11:36-0400 Diastolic blood pressure 76 mm[Hg] Dr. Dyan Kyle Work Phone: [facility] 02-12-2023 11:36-0400 SaO2% (BldA) [Mass fraction] 97 % Dr. Dyan Kyle Work Phone: [facility] 02-12-2023 11:36-0400 Systolic blood pressure 124 mm[Hg] Dr. Dyan Kyle Work Phone: [facility] 01-20-2023 11:51-0400 Body mass index (BMI) [Ratio] 24 kg/m2 Dr. Dyan Kyle Work Phone: [facility] 01-20-2023 11:51-0400 Body temperature 97.1 [degF] Dr. Dyan Kyle Work Phone: [facility] 01-20-2023 11:51-0400 Body weight 80.[address] Dyan yKle Work Phone: [facility] 01-20-2023 11:51-0400 Diastolic blood pressure 78 mm[Hg] Dr. Dyan Kyle Work Phone: [facility] 01-20-2023 11:51-0400 Heart rate 86 /min Dr. Dyan Kyle Work Phone: [facility] 01-20-2023 11:51-0400 Respiratory rate 16 /min Dr. Dyan Kyle Work Phone: [facility] 01-20-2023 11:51-0400 SaO2% (BldA) [Mass fraction] 98 % Dr. Dyan Kyle Work Phone: [facility] 01-20-2023 11:51-0400 Systolic blood pressure 142 mm[Hg] Dr. Dyan Kyle Work Phone: [facility] 11-27-2021 17:47-0400 Body height 182.[address] [facility] Work Phone: 11-27-2021 17:47-0400 Body mass index (BMI) [Ratio] 24.9 kg/m2 [facility] Work Phone: 11-27-2021 17:47-0400 Body temperature 98 [degF] [facility] Work Phone: 11-27-2021 17:47-0400 Body weight 83.[address] [facility] Work Phone: 11-27-2021 17:47-0400 Diastolic blood pressure 76 mm[Hg] [facility] Work Phone: 11-27-2021 17:47-0400 Heart rate 72 /min [facility] Work Phone: 11-27-2021 17:47-0400 Respiratory rate 14 /min [facility] Work Phone: 11-27-2021 17:47-0400 SaO2% (BldA) [Mass fraction] 98 % [facility] Work Phone: 11-27-2021 17:47-0400 Systolic blood pressure 142 mm[Hg] Brenda Raymond [facility] Work Phone: Encounters Encounter Date Encounter Type Care Provider Facility Start: 03-22-2025 End: 03-22-2025 ambulatory Dyan Kyle Facility:[facility] Start: 03-16-2025 End: 03-16-2025 ambulatory Dyan Kyle Facility[facility] Start: 03-12-2025 End: 03-12-2025 Bob IGLESIAS -[facility] Work Phone: Start: 03-12-2025 End: 03-12-[address] Dyan Kyle MD Work Phone: [facility] Start: 02-14-2025 End: 02-14-2025 Dr. Dyan Kyle MD -[facility] Work Phone: Start: 02-14-2025 End: 02-14-[address] Dyan Kyle MD Work Phone: -[facility] Start: 02-02-2025 End: 02-02-[address] Yadiel Bettencourt MD -[facility] Start: 02-02-2025 End: 02-02-2025 Jackie MONZON -[facility] Work Phone: Start: 02-02-2025 End: 02-02-[address] Dyan Kyle MD Work Phone: -[facility] Start: 01-17-2025 End: 01-17-[address] Dyan Kyle MD Work Phone: -[facility] Start: 01-17-2025 End: 01-17-[address] Dyan Kyle MD -[facility] Work Phone: Start: 01-17-2025 End: 01-17-2025 Dr. Dyan Kyel MD -[facility] Work Phone: Start: 01-17-2025 End: 01-17-2025 ambulatory Efluis Nicholase Facility:[facility] Start: 01-15-2025 End: 01-15-[address] Dyan Kyle MD -[facility] Work Phone: Start: 01-15-2025 End: 01-15-2025 Dr. Dyan Kyle MD -[facility] Work Phone: Start: 01-15-2025 End: 01-15-[address] Dyan Kyle MD Work Phone: -[facility] Start: 01-09-2025 ambulatory Efewongbe Wesleye Facili ty:[facility] Start: 01-09-[address] Arin Weston MD -[facility] Start: 01-09-2025 Dr. Arin Weston MD -[facility] Start: 01-05-2025 End: 01-05-[address] Yadiel Bettencourt MD -[facility] Start: 01-05-2025 End: 01-05-2025 Jackie MONZON -[facility] Work Phone: Start: 01-05-2025 End: 01-05-[address] Dyan Kyle MD Work Phone: -[facility] Start: 01-02-2025 ambulatory Efewongbe Oleghe Facili ty:[facility] Start: 01-02-[address] Arin Weston MD -[facility] Start: 01-02-2025 Dr. Arin Weston MD [facility] Start: 12-26-2024 ambulatory Efewongbe Oleghe Facili ty:[facility] Start: 12-26-[address] Arin Weston MD -[facility] Start: 12-26-2024 Dr. Arin Weston MD -[facility] Start: 12-24-2024 Non-patient / Non-visit Dr. Radha Cope DO [facility] Work Phone: Start: 12-24-2024 Dr. Radha Cope DO [facility] Work Phone: Start: 12-23-2024 Non-patient / Non-visit Dr. Radha Cope DO [facility] Work Phone: Start: 12-23-2024 Dr. Radha Cope [facility] Work Phone: Start: 12-22-2024 Non-patient / Non-visit Dr. Radha Cope DO [facility] Work Phone: Start: 12-22-2024 Dr. Radha Cope DO [facility] Work Phone: Start: 12-22-2024 [facility] Start: 12-22-2024 [facility] Start: 12-21-2024 Non-patient / Non-visit Dr. Radha Cope DO [facility] Work Phone: Start: 12-21-2024 Dr. Radha Cope DO [facility] Work Phone: Start: 12-20-2024 Non-patient / [facility] Start: [facility]24 [facility] Start: 12-19-2024 Non-patient / [facility] Start: 12-19-2024 [facility] Start: 12-19-2024 Non-patient / Non-visit Dr. Radha Cope DO [facility] Work Phone: Start: 12-19-2024 Dr. Radha Cope DO [facility] Work Phone: Start: 12-18-2024 ambulatory Efewongbe Oleghe Facili ty:[facility] Start: 12-18-2024 End: 12-24-2024 Evaluation and management of inpatient Dr. Amado Jean -[facility] Work Phone: Start: 12-18-2024 End: 12-24-2024 Dr. Radha Cope DO -[facility] Work Phone: Start: 11-07-[address] Lindsey Mcgee MD [facility] Start: 11-07-2024 End: 11-07-[address] Carolina Mcgee MD -[facility] Work Phone: Start: 11-07-2024 End: 11-07-2024 Dr. Carolina Mcgee MD -[facility] Work Phone: Start: 11-07-2024 End: 11-07-[address] Dyan Kyle MD Work Phone: [facility] Work Phone: Start: 10-25-2024 End: 10-25-[address] Dyan Kyle MD -[facility] Work Phone: Start: 10-25-2024 End: 10-25-2024 Dr. Dyan Kyle MD -[facility] Work Phone: Start: 10-25-2024 End: 10-25-[address] Dyan Kyle MD Work Phone: [facility] Work Phone: Start: 09-26-2024 End: 09-26-[address] Carolina Mcgee MD -[facility] Work Phone: Start: 09-26-2024 End: 09-26-2024 ambulatory Carolina Mcgee Facility[facility] Start: 09-26-[address] Lindsey Mcgee MD -[facility] Start: 09-12-2024 End: 09-12-2024 Patient encounter procedure Bob IGLESIAS -[facility] Work Phone: Start: 09-12-2024 End: 09-12-2024 ambulatory luis Kyle [facility] Start: 08-15-2024 End: 08-15-[address] Carolina Mcgee MD -[facility] Work Phone: Start: 08-15-2024 End: 08-15-2024 ambulatory Carolina Mcgee [facility] Start: 08-07-2024 End: 08-07-[address] Dyan Kyle MD Work Phone: [facility] Work Phone: Start: 08-07-2024 End: 08-07-[address] Carolina Mcgee MD -Nuclear Medicine, [facility] Work Phone: Start: 08-07-2024 End: 08-07-2024 ambulatory Carolina Mcgee Facility:[facility] Start: 07-04-2024 End: 07-04-[address] Carolina Mcgee MD -[facility] Work Phone: Start: 07-04-2024 End: 07-04-2024 ambulatory evapalisades park[place]ia Kyle [facility] Start: 07-04-[address] Lindsey Mcgee MD -[facility] Start: 06-03-2024 End: 06-03-2024 Emergency department patient visit Dr. Carl Anders DO -Emergency Department Work Phone: Start: 05-23-2024 End: 05-23-2024 Patient encounter procedure Rachael MONZON -[facility] Work Phone: Start: 05-23-2024 End: 05-23-2024 [facility] Start: 04-26-2024 End: 04-26-2024 [facility] Start: 04-26-2024 End: 04-26-[address] Dyan Kyle MD -[facility] Work Phone: Start: 04-10-2024 End: 04-10-2024 ambulatory Dyan Kyle [facility] Start: 07-16-2023 Non-patient / Non-visit Dr. Pollo Kyle Work Phone: [facility] Start: 07-16-2023 End: 07-16-[address] Dyan Kyle Work Phone: [facility] Work Phone: Start: 07-16-2023 End: 07-16-[address] Dyan Kyle Work Phone: [facility]-Cardiovascular Services Work Phone: Start: 07-16-2023 ambulatory LONNIE Lay ty:[facility] Start: 07-13-2023 End: 07-13-[address] Dyan Kyle Work Phone: [facility] Work Phone: Start: 07-13-2023 End: 07-13-[address] Dyan Kyle Work Phone: [facility]-Critical access hospital Work Phone: Start: 07-12-2023 ambulatory DYAN Gomez lity:[facility] Start: 07-07-2023 End: 07-07-[address] Dyan Kyle Work Phone: [facility] Internal Medicine Work Phone: Start: 06-21-2023 End: 06-21-[address] Dyan Kyle Work Phone: [facility] Work Phone: Start: 06-21-[address] Joaquin Kyle Work Phone: [facility] Oncology Start: 05-12-2023 ambulatory EFEWONGBE David NICHOLASE Faci lity:[facility] Start: 05-11-2023 End: 05-11-[address] Dyan Kyle Work Phone: [facility] Work Phone: Start: 05-11-2023 End: 05-11-[address] Dyan Kyle Work Phone: [facility]-Radiology, [facility] Work Phone: Start: 05-10-2023 End: 05-10-[address] Dyan Kyle Work Phone: [facility] Work Phone: Start: 05-10-[address] Joaquin Kyle Work Phone: [facility] Start: 04-12-2023 ambulatory EFEWONGBE David NICHOLASE Faci lity:[facility] Start: 04-12-2023 End: 04-12-2023 Subsequent hospital visit by physician Lonnie Fischer MD Work Phone: Department of Radiology Comment on above: Arrived Start: 03-30-2023 End: 03-30-[address] Dyan Kyle Work Phone: [facility] Work Phone: Start: 03-30-2023 End: 03-30-[address] Dyan Kyle Work Phone: [facility] Work Phone: Start: 03-29-2023 End: 03-29-[address] Dyan Kyle Work Phone: [facility] Work Phone: Start: 03-29-[address] [facility]quin [facility] Start: 03-24-2023 End: 03-24-[address] Dyan Kyle Work Phone: [facility] Internal Medicine Work Phone: Start: 03-12-2023 ambulatory EFLUIS KYLE Faci lity:[facility] Start: 03-12-2023 End: 03-12-2023 Subsequent hospital visit by physician Lonnie Fischer MD Work Phone: Department of Radiology Comment on above: Arrived Start: 03-12-[address] Joaquin Kyle Work Phone: [facility] Work Phone: Start: 03-12-2023 ambulatory DYAN Vicki lity:[facility] Start: 03-08-2023 End: 03-08-[address] Dyan Kyle Work Phone: [facility] Work Phone: Start: 03-08-2023 End: 03-08-[address] Dyan Kyle Work Phone: [facility]-Nuclear Medicine, [facility] Work Phone: Start: 03-04-2023 End: 03-04-[address] Dyan Kyle Work Phone: [facility] Work Phone: Start: 03-04-2023 End: 03-04-[address] Dyan Kyle Work Phone: [facility]-Occupational Therapy Work Phone: Start: 03-04-[address] Joaquin Kyle Work Phone: [facility]-Occupational Therapy Work Phone: Start: 02-26-2023 ambulatory DYAN KYLE Facili ty:[facility] Start: 02-24-[address] Joaquin Kyle Work Phone: [facility] On[facility] Start: 02-24-2023 End: 02-24-[address] Dyan Kyle Work Phone: [facility] Work Phone: Start: 02-17-2023 End: 02-17-[address] Dyan Kyle Work Phone: [facility] Internal Medicine Work Phone: Start: 02-16-2023 End: 02-16-[address] Dyan Kyle Work Phone: [facility] Work Phone: Start: 02-16-2023 End: 02-16-[address] Dyan Kyle Work Phone: [facility] Work Phone: Start: 02-14-2023 Non-patient / Non-visit Dr. Pollo Kyle Work Phone: [facility] Start: 02-13-2023 Non-patient / Non-visit Dr. Pollo Kyle Work Phone: [facility] Start: 02-13-2023 Non-patient / Non-visit Dr. Pollo Kyle Work Phone: [facility] Work Phone: Start: 02-12-2023 Non-patient / Non-visit Dr. Pollo Kyle Work Phone: [facility] Work Phone: Start: 02-12-2023 End: 02-14-2023 Evaluation and management of inpatient Dr. Dyan Kyle Work Phone: [facility]-Medical Surgical 3 Work Phone: Start: 02-12-2023 End: 02-12-[address] Dyan Kyle Work Phone: [facility] Work Phone: Start: 02-12-2023 End: 02-12-[address] Dyan Kyle Work Phone: [facility] Work Phone: Start: 01-21-2023 End: 01-21-[address] Dyan Kyle Work Phone: [facility]-Laboratory, [place] Start: 01-20-2023 End: 01-20-[address] Dyan Kyle Work Phone: [facility] Internal Medicine Work Phone: Start: 12-10-2021 Refill Joce Roach PRN.CNP Work Phone: [facility] Comment on above: Refill Request Start: 11-28-2021 End: 11-28-2021 Patient encounter procedure [facility] Start: 11-27-2021 End: 11-27-2021 Patient encounter procedure [facility] Internal Medicine Start: 11-13-2021 Non-patient / Non-visit [facility] Start: 10-16-2021 Non-patient / Non-visit [facility] Internal Medicine Procedures Date Procedure Procedure Detail Performing Clinician Start: 03-22-2025 Prostate specific an tigen measurement Dr. Dyan Kyle MD Work Phone: Start: 03-22-[address] Dyan Kyle MD Work Phone: Start: 03-22-2025 Mean corpuscular hem oglobin concentration determination Dr. Dyan Kyle MD Work Phone: Start: 03-22-[address] Pollo Kyle MD Work Phone: Start: 03-22-2025 Nucleated red blood cell count procedure Dr. Dyan Kyle MD Work Phone: Start: 03-22-2025 Platelet mean volume determination Dr. Dyan Kyle MD Work Phone: Start: 03-22-2025 Total cholesterol:HD L ratio measurement Dr. Dyan Kyle MD Work Phone: Start: 03-22-[address] Dyan Kyle MD Work Phone: Start: 02-02-2025 Plain x-ray of pelvi s and lower extremity Dr. Dyan Kyle MD Work Phone: Start: 01-09-2025 Blood count smear mc rscp w/mnl difrntl wbc count Dr. Dyan Kyle MD Work Phone: Start: 01-09-2025 Mean corpuscular hem oglobin concentration determination Dr. Dyan Kyle MD Work Phone: Start: 01-09-[address] Pollo Kyle MD Work Phone: Start: 01-09-2025 Nucleated red blood cell count procedure Dr. Dyan Kyle MD Work Phone: Start: 01-09-2025 Platelet mean volume determination Dr. Dyan Kyle MD Work Phone: Start: 01-05-2025 Plain x-ray of pelvi s and lower extremity Dr. Dyan Kyle MD Work Phone: Start: 01-02-2025 Blood count smear mc rscp w/mnl difrntl wbc count Dr. Dyan Kyle MD Work Phone: Start: 01-02-2025 Mean corpuscular hem oglobin concentration determination Dr. Dyan Kyle MD Work Phone: Start: 01-02-[address] Pollo Kyle MD Work Phone: Start: 01-02-2025 Nucleated red blood cell count procedure Dr. Dyan Kyle MD Work Phone: Start: 01-02-2025 Platelet mean volume determination Dr. Dyan Kyle MD Work Phone: Start: 01-02-2025 Total cholesterol:HD L ratio measurement Dr. Dyan Kyle MD Work Phone: Start: 01-02-[address] Dyan Kyle MD Work Phone: Start: 01-02-2025 Vitamin D, 25-hydrox y measurement Dr. Dyan Kyle MD Work Phone: Comment on above: Vitamin D StatusDefi ciency: <20 ng/mL (50nmol/L)Insufficiency: 20-30 ng/mL (50-75 nmol/L)Sufficiency: 30-100 ng/mL (75-250 nmol/L)Toxicity: >100 ng/mL (>250 nmol/L) Start: 12-26-2024 Blood count smear mc rscp w/mnl difrntl wbc count Dr. Dyan Kyle MD Work Phone: Start: 12-26-2024 Mean corpuscular hem oglobin concentration determination Dr. Dyan Kyle MD Work Phone: Start: 12-26-[address] Pollo Kyle MD Work Phone: Start: 12-26-2024 Nucleated red blood cell count procedure Dr. Dyan Kyle MD Work Phone: Start: 12-26-2024 Platelet mean volume determination Dr. Dyan Kyle MD Work Phone: Start: 12-24-[address] Dyan Kyle MD Work Phone: Start: 12-24-2024 Mean corpuscular hem oglobin concentration determination Dr. Dyan Kyle MD Work Phone: Start: 12-24-2024 Platelet mean volume determination Dr. Dyan Kyle MD Work Phone: Start: 12-19-2024 Plain x-ray of pelvi s and lower extremity Dr. Dyan Kyle MD Work Phone: Start: 12-19-2024 Prosthetic uncemente d hemiarthroplasty of hip Dr. Dyan Kyle MD Work Phone: Start: 12-18-2024 Urine microscopy: red cells Dr. Dyan Kyle MD Work Phone: Start: 12-18-2024 Urnls dip stick/tabl et reagent auto microscopy Dr. Dyan Kyle MD Work Phone: Start: 12-18-2024 Calculation of inter national normalized ratio Dr. Dyan Kyle MD Work Phone: Start: 12-18-2024 Blood count smear mc rscp w/mnl difrntl wbc count Dr. Dyan Kyle MD Work Phone: Start: 12-18-[address] Dyan Kyle MD Work Phone: Start: 12-18-[address] Pollo Kyle MD Work Phone: Start: 12-18-2024 Nucleated red blood cell count procedure Dr. Dyan Kyle MD Work Phone: Start: [...] Dyan Kyle MD Work Phone: Start: 11-07-2024 Mean corpuscular hem oglobin concentration determination Dr. Dyan Kyle MD Work Phone: Start: 11-07-2024 Nucleated red blood cell count procedure Dr. Dyan Kyle MD Work Phone: Start: 11-07-2024 Platelet mean volume determination Dr. Dyan Kyle MD Work Phone: Start: 11-07-2024 Prostate specific an tigen measurement Dr. Dyan Kyle MD Work Phone: Start: [...] X-ray of radius and ulna Dr. Dyan Klye Work Phone: Start: 02-12-2023 Plain x-ray of elbow Dr Martina Kyle Work Phone: Start: 02-12-2023 Plain x-ray of hand Dr. Dyan Kyle Work Phone: Plan of Treatment Date Care Activity Detail Author Start: 03-22-2025 End: 03-22-2025 -[facility] Work Phone: Start: 03-16-2025 Plain x-ray of pelvis and lower extremity [facility] Start: 03-16-2025 End: 03-16-2025 -[facility] Work Phone: Start: 02-02-2025 Plain X-ray of hip Hip uni 4+ views with Pelvis [facility] Start: 02-02-2025 XR Hip Views [facility] Start: 02-02-2025 Plain x-ray of pelvis and lower extremity HIP, UNI W/ Pelvis 2-3 Views [facility] Start: 02-02-2025 XR Pelvis and Hip Views [facility] Start: 01-05-2025 Plain X-ray of hip Hip uni 4+ views with Pelvis [facility] Start: 01-05-2025 XR Hip Views [facility] Start: 01-05-2025 Plain x-ray of pelvis and lower extremity HIP, UNI W/ Pelvis 2-3 Views [facility] Start: 01-05-2025 XR Pelvis and Hip Views [facility] Start: 12-24-2024 Patient discharge [facility] Start: 12-19-2024 End: 12-19-2024 [facility] Start: 12-19-2024 Ambulation therapy management [facility] Start: 12-19-2024 Application of device [facility] Start: 12-19-2024 Exercises [facility] Start: 12-19-2024 Following clinical pathway protocol [facility] Start: 12-19-2024 Introduction of urinary catheter [facility] Start: 12-19-2024 Neurovascular assessment [facility] Start: 12-19-2024 Patient education [facility] Start: 12-19-2024 Provision of activity privileges [facility] Start: 12-19-2024 Referral for physical therapy [facility] Start: 12-19-2024 Referral to occupational therapist [facility] Start: 12-19-2024 Referral to service [facility] Start: 12-19-2024 Vital signs measurements [facility] Start: 12-19-2024 Wound care [facility] Start: 12-18-2024 Application of intermittent pneumatic compression device [facility] Start: 12-18-2024 Assessment of risk of venous thromboembolism [facility] Start: 12-18-2024 Consultation [facility] Start: 12-18-2024 Insertion of catheter into peripheral vein [facility] Start: 12-18-2024 Measuring intake and output [facility] Start: 12-18-2024 Providing care according to standard [facility] Start: 12-18-2024 Provision of activity privileges [facility] Start: 12-18-2024 Referral for physical therapy [facility] Start: 12-18-2024 Referral to occupational therapist [facility] Start: 12-18-2024 Referral to service [facility] Start: 12-18-2024 [facility] Start: 12-18-2024 Following clinical pathway protocol [facility] Start: 12-18-2024 Verification routine [facility] Start: 12-18-2024 Hospital admission, emergency, from emergency room, medical nature [facility] Start: 12-18-2024 Admission procedure [facility] Start: 12-18-2024 Hepatic function panel [facility] Start: 12-18-2024 [facility] Start: 12-18-2024 Consultation [facility] Start: 12-18-2024 [facility] Start: 11-07-2024 [facility] Start: 06-03-2024 [facility] Start: 11-23-2023 DIABETES SCREEN DIABETES SCREEN [facility] Start: 05-12-2023 End: 05-12-2023 Patient encounter procedure [facility] Start: 04-12-2023 End: 04-12-2023 Patient encounter procedure [facility] Start: 03-24-2023 Evaluation of diagnostic study results [facility] Start: 02-24-2023 Patient referral [facility] Work Phone: Start: 02-17-2023 Patient referral [facility] Work Phone: Start: 02-14-2023 Patient discharge [facility] Start: 02-13-2023 Bacterial nucleic acid assay [facility] Start: 02-12-2023 Application of ice collar, cap or bag [facility] Start: 02-12-2023 Assessment of risk of venous thromboembolism [facility] Start: 02-12-2023 Consultation [facility] Start: 02-12-2023 Elevation of affected extremity [facility] Start: 02-12-2023 Fall prevention [facility] Start: 02-12-2023 Inhalation therapy procedure [facility] Start: 02-12-2023 Insertion of catheter into peripheral vein [facility] Start: 02-12-2023 Introduction of urinary catheter [facility] Start: 02-12-2023 Measuring intake and output [facility] Start: 02-12-2023 Methicillin resistant Staphylococcus aureus screening test [facility] Start: 02-12-2023 Providing care according to standard [facility] Start: 02-12-2023 Provision of activity privileges [facility] Start: 02-12-2023 Referral to occupational therapist [facility] Start: 02-12-2023 Referral to service [facility] Start: 02-12-2023 [facility] Start: 02-12-2023 Following clinical pathway protocol [facility] Start: 02-12-2023 Verification routine [facility] Start: 02-12-2023 Admission procedure [facility] Start: 02-12-2023 [facility] Start: 01-22-2023 COVID-19 VACCINE () COVID-19 VACCINE () [facility] Start: 01-22-2023 Influenza vaccination INFLUENZA VACCINE (#1) [facility] Start: 01-20-2023 Patient referral [facility] Work Phone: Start: 01-22-2022 Influenza vaccination INFLUENZA (#1) [facility] Start: 11-27-2021 Patient referral [facility] Work Phone: Start: 05-24-2021 ADVANCE DIRECTIVE DISCUSSION ADVANCE DIRECTIVE DISCUSSION [facility] Start: 02-18-2021 COVID-19 VACCINE (3 - Booster for Moderna series) COVID-19 VACCINE (3 - Booster for Moderna series) [facility] Start: 02-07-2021 PNEUMOCOCCAL: 65+ (2 - PPSV23 or PCV20) PNEUMOCOCCAL: 65+ (2 - PPSV23 or PCV20) [facility] Start: 1982 Screening for malignant neoplasm of colon COLORECTAL CANCER SCREENING DISCUSSION [facility] Start: 1956 Third diphtheria, tetanus and acellular pertussis (DTaP) vaccination TDAP (ADULT) [facility] Start: 1956 Urine microalbumin profile DTAP,TDAP,TD (1 - Tdap) [facility] Start: 1937 Tetanus vaccination TETANUS [facility] Alanine aminotransfe rase [Enzymatic activity/volume] in Serum or Plasma [facility] Albumin [Mass/volume ] in Serum or Plasma [facility] Alkaline phosphatase [Enzymatic activity/volume] in Serum or Plasma [facility] Bilirubin measuremen t, urine [facility] Bilirubin, total measurement [facility] Bilirubin.direct [Mass/volume] in Serum or Plasma [facility] CBC W Auto Different ial panel - Blood [facility] CBC W Auto Different ial panel - Blood [facility] CBC W Auto Different ial panel - Blood [facility] CBC W Auto Different ial panel - Blood [facility] CBC W Auto Different ial panel - Blood [facility] CBC W Auto Different ial panel - Blood [facility] CBC W Auto Different ial panel - Blood [facility] metabo lic 1999 panel - Serum or Plasma [facility] 1999 panel - Serum or Plasma [facility] metabo lic 1999 panel - Serum or Plasma [facility] 1999 panel - Serum or Plasma [facility] Hemoglobin [Presence ] in Urine [facility] Hemoglobin A1c/Hemoglobin.total in Blood [facility] Hepatic function panel [facility] Lipid 1995 panel - S alfonso or Plasma [facility] Measurement of keton es in urine using dipstick [facility] Microscopic urinalysis [facility] Natriuretic peptide. B prohormone N-Terminal [Mass/volume] in Serum or Plasma [facility] Patient Education ED Esophageal Foreign Body, Resolved [facility] Work Phone: Patient referral [facility] Work Phone: pH of Urine [facility] Prostate specific an tigen measurement [facility] Prostate specific an tigen measurement [facility] Prostate specific an tigen measurement [facility] Prostate specific an tigen measurement [facility] Prostate specific an tigen measurement [facility] Prostate specific an tigen measurement [facility] Prostate specific an tigen measurement [facility] Specific gravity of Urine [facility] Total protein measurement [facility] Urine blood test [facility] Urine dipstick for glucose [facility] Urine dipstick for leukocyte esterase [facility] Urine dipstick for nitrite [facility] Urine dipstick for protein [facility] Urine examination [facility] Urine microscopy: epithelial cells [facility] Urine Microscopy: wh ite cells [facility] Urobilinogen [Presen ce] in Urine [facility] Immunizations Immunization Date Immunization Notes Care Provider Fa [facility] 02-14-2025 Seasonal trivalent influenza vaccine, adjuvanted, preservative free Dr. Dyan Kyle MD Work Phone: [facility] 03-03-2024 Seasonal trivalent influenza vaccine, adjuvanted, preservative free Dr. Dyan Kyle MD Work Phone: [facility] 07-07-2023 influenza, injectabl e, quadrivalent, preservative free Dr. Dyan Kyle Work Phone: [facility] 04-06-2022 influenza, injectabl e, quadrivalent, preservative free Dr. Dyan Kyle Work Phone: [facility] 04-06-2022 influenza virus vaccine, unspecified formulation Lonnie Fischer MD Work Phone: [facility] 09-18-2020 COVID-19 vaccine, fu ll dose (MODERNA) Joce Hernandez APRN.[employer]IRE [employer]KER Work Phone: [facility] 08-20-2020 COVID-19 vaccine, fu ll dose (MODERNA) Joce Hernandez APRN.[employer]KER Work Phone: [facility] Work Phone: 04-11-2020 zoster vaccine recombinant Joce Hernandez APRN.[employer] Work Phone: [facility] Work Phone: 02-08-2020 influenza, injectabl e, quadrivalent, preservative free Joce Hernandez APRN.[employer] Work Phone: [facility] Work Phone: 02-08-2020 pneumococcal conjuga te vaccine, 13 valent Joce Hernandez CHELLE.WIRE [employer] SHADE MAKER Work Phone: [facility] Work Phone: 02-08-2020 zoster vaccine recombinant Joce Hernandez CHELLE.W[employer]KER Work Phone: [facility] Work Phone: Payers Date Payer Category Payer Medicare [id number] 2023 Self-pay [id number] 2021 Medicare [place] MED[place] AETNA PPO [id number] 2021-Present [address] [place] [address] [id number] 2015 Private Health Insurance 101 [id number] 2014 Medicare AETNA MEDICARE A ETNA MEDICARE PPO [id number] 2014-Present [phone] [address] [place] [address] O [id number] [id number] 1937 Unknown [id number] 2.16.840.1.824133.3.579.2.5 94 1937 Unknown [id number] 2.16.840.1.746584.3.579.2.5 94 1937 Unknown [id number] 2.16.840.1.033202.3.579.2.5 94 1937 Unknown [id number] 2.16.840.1.062674.3.579.2.5 94 1937 Unknown [id number] 2.16.840.1.231790.3.579.2.5 94 1937 Unknown [id number] 2.16.840.1.635956.3.579.2.5 94 1937 Unknown [id number] 2.16.840.1.477296.3.579.2.5 94 1937 Unknown [id number] 2.16.840.1.264800.3.579.2.5 94 Medicare [id number] Unknown [id number] 2.16.840.1.763941.3.579.2.4 62 Unknown [id number] 2.16.840.1.679839.3.579.2.4 62 Unknown [id number] 2.16.840.1.523677.3.579.2.4 62 Unknown [id number] 2.16.840.1.309447.3.579.2.4 62 Unknown [id number] 2.16.840.1.425377.3.579.2.4 62 Unknown [id number] 2.16.840.1.324081.3.579.2.4 62 Unknown [id number] 2.16.840.1.958006.3.579.2.4 62 Unknown [id number] 2.16.840.1.408539.3.579.2.4 62 Unknown [id number] 2.16.840.1.775632.3.579.2.4 62 Unknown [id number] 2.16.840.1.915835.3.579.2.4 62 Unknown [id number] 2.16.840.1.808855.3.579.2.4 62 Unknown [id number] 2.16.840.1.765345.3.579.2.4 62 Unknown [id number] 2.16.840.1.668795.3.579.2.4 62 Unknown [id number] 2.16.840.1.701934.3.579.2.4 62 Unknown [id number] 2.16.840.1.539349.3.579.2.4 62 Unknown [id number] 2.16.840.1.864521.3.579.2.4 62 Unknown [id number] 2.16.840.1.761339.3.579.2.4 62 Unknown [id number] 2.16.840.1.553815.3.579.2.4 62 Unknown [id number] 2.16.840.1.941586.3.579.2.4 62 Unknown [id number] 2.16.840.1.820647.3.579.2.4 62 Unknown [id number] 2.16.840.1.171136.3.579.2.4 62 Unknown [id number] 2.16.840.1.747409.3.579.2.4 62 Unknown [id number] 2.16.840.1.089395.3.579.2.4 62 Unknown [id number] 2.16.840.1.513385.3.579.2.4 62 Unknown [id number] 2.16.840.1.982153.3.579.2.4 62 Unknown [id number] 2.16.840.1.800527.3.579.2.4 62 Unknown [id number] 2.16.840.1.278547.3.579.2.4 62 Unknown [id number] 2.16.840.1.376194.3.579.2.4 62 Unknown [id number] 2.16.840.1.831796.3.579.2.4 62 Unknown [id number] 2.16.840.1.272291.3.579.2.4 62 Unknown [id number] 2.16.840.1.176931.3.579.2.4 62 Unknown [id number] 2.16.840.1.232512.3.579.2.4 62 Unknown [id number] 2.16.840.1.988170.3.579.2.4 62 Unknown [id number] 2.16.840.1.122466.3.579.2.4 62 Unknown [id number] 2.16.840.1.896162.3.579.2.4 62 Unknown [id number] 2.16.840.1.612008.3.579.2.4 62 Unknown [id number] 2.16.840.1.425713.3.579.2.4 62 Social History Date Type Detail Facility Start: 11-27-2021 End: 07-07-2023 Tobacco smoking status RIIS Unknown if ever smoked [facility] Start: 1935 Sex Assigned At Male [facility] Start: 12-24-2015 Tobacco smoking stat us RIIS Ex-smoker [facility] Work Phone: History of tobacco use Cigarette Smoker C [facility] Work Phone: Start: 12-24-2015 End: 03-12-2023 Tobacco use and exposure Smokeless tobacco non-user [facility] Work Phone: Start: 11-28-2020 Alcohol intake Current non-dr sausage linker of alcohol (finding) [facility] Start: 1935 Sex Assigned At Not on file [facility] Start: 03-12-2023 End: 12-18-2024 Tobacco smoking status NHIS Never smoked tobacco [facility] Start: 03-12-2023 End: 04-12-2023 Alcohol intake Ex-drinker (finding) [facility] Start: 03-12-2023 End: 04-12-2023 History of Social function [facility] Start: 03-12-2023 End: 04-12-[address] [facility] Adolescent depressio n screening assessment 2 [facility] Start: 08-14-2024 Sex Male (finding) [facility] Medical Equipment Procedure Code Equipment Code Equipment Original Text Equipment Identifier Dates Primary uncemented hemiarthroplasty of hip KIT,FEMORAL BONE CEMENT PREP FDA Start: 12-19-2024 Primary uncemented hemiarthroplasty of hip ()[id number] FDA Start: 12-19-2024 Primary uncemented hemiarthroplasty of hip ([id number]) ()[id number] 0 [id number] FDA Start: 12-19-2024 Primary uncemented hemiarthroplasty of hip ()[id number] [id number])[id number] [id number] FDA Start: 12-19-2024 Primary uncemented hemiarthroplasty of hip ()[id number] 3 [id number] FDA Start: 12-19-2024 Primary uncemented hemiarthroplasty of hip ()[id number] 2 [id number])[id number] FDA Start: 12-19-2024 Primary uncemented hemiarthroplasty of [...] Start: 12-19-2024 Primary uncemented hemiarthroplasty of hip FDA Start: 12-19-2024 Primary uncemented hemiarthroplasty of hip FDA Start: 12-19-2024 Goals Date Patient Goal Desired Activity /State Functional Status Date Assessment Result Facility 12-24-2024 Functional status Bathroom [facility] Work Phone: 02-14-2023 Functional status Activity Abili ty Standby Assist;With Assist of 1 [facility] Work Phone: 02-14-2023 Functional status Patient Activity Ambula sandoval [facility] Work Phone: 02-13-2023 Functional status Assistive Rossana lily Straight Cane [facility] Work Phone: Mental Status Date Assessment Result Facility 12-24-2024 Cognitive function Voice/Name [facility] Work Phone: 11-07-2024 Cognitive function Voice/Name [facility] Work Phone: 08-15-2024 Cognitive function Awake;Alert;A ppropriate;Follo ws [facility] Work Phone: 06-03-2024 Cognitive function Level Of Cons ciousness Awake;Alert;Appropriate;Follo ws Commands [facility] Work Phone: 05-23-2024 Cognitive function Voice/Name [facility] Work Phone: 06-21-2023 Cognitive function Awake;Alert;[facility] Work Phone: 03-29-2023 Cognitive function Awake;Alert;A ppropriate;Follo ws Commands [facility] Work Phone: 02-14-2023 Cognitive function Voice/Name [facility] Work Phone: Clinical Notes 09-20-2020 to 12-24-2024 Note Date & Type Note Facility 12-24-2024 Hospital Discharg e instructions Additional Instructions 1. Patient should have a repeat BMP and CBC in 1 week 2. Weightbearing as tolerated right lower extremity 3. DVT prophylaxis with Eliquis until instructed to stop by orthopedic surgery 4. Posterior hip precautions Date of Discharge: 12/24/24 [facility] Work Phone: 12-24-2024 Discharge summary [facility] 12-24-2024 Discharge summary [facility] 12-24-2024 Note [facility] 12-23-2024 Progress note Note Date/Time December 23, 2024 3:40pm [facility] Medical Records Department [address] [place] [address] Progress Note - Hospitalist 12/23/24 1536 MR#: [id number] Acct: [id number] Name: JESS JAMES Rep #:[id number] : 1935 89 From: Radha Cope DO PCP: Dr. Dyan Kyle MD Status:A DM IN Location: MS3 [id number] Reason for Visit Chief Complaint: Fall with [...] work/case management following and working on placement -[facility] once approved by insurance Mild anemia -Hemoglobin [...] -FULL CODE Charges/Coding Visit Charges Inpatient E&M: 99148 Subs Hosp L1 Date medically ready for discharge: 12/22/24 Reason for DC delay: Precert pending from insurance 12/23/24 1540 <Electronically signed by Radha Cope DO> Cosigner Signature (if applicable): CC: ~ Signed [facility] Work Phone: 1(468) 624-371708-02-2025 Progress note [facility] Medical Records Department [address] [place] [address] [place] [address] Progress Note - Hospitalist 12/23/24 5816 MR#: [id number] Acct: [id number] Name: JESS JAMES Rep #:[id number] : 1935 89 From: Radha Cope DO PCP: Dr. Dyan Kyle MD Status:A DM IN Location: MS[facility] OF533-7 Reason for Visit Chief Complaint: Fall with [...] work/case management following and working on placement -[facility] once approved by insurance Mild anemia -Hemoglobin [...] -FULL CODE Charges/Coding Visit Charges Inpatient E&M: 32888 Subs Hosp L1 Date medically ready for discharge: 12/22/24 Reason for DC delay: Precert pending from insurance 12/23/24 6410 Cosigner Signature (if applicable): CC: ~ Signed [facility]08-01-2025 Progress note Author Radha Cope [facility] Note Date/Time December 22, 2024 4:4 3pm [facility] Medical Records Department [address] [place] [address] Progress Note - Hospitalist 12/22/24 5368 MR#: [id number] Acct: [id number] Name: JESS JAMES Rep #:[id number] : 1935 89 From: Radha Cope DO PCP: Dr. Dyan Kyle MD Status:A DM IN Location: MS3 LD135-4 Reason for Visit Chief Complaint: Fall with [...] work/case management following and working on placement -[facility] once approved by insurance CODY secondary to [...] -FULL CODE Charges/Coding Visit Charges Inpatient E&M: 52824 Subs Hosp L1 Date medically ready for discharge: 12/22/24 Reason for DC delay: Precert pending from insurance 12/22/24 1643 <Electronically signed by Radha Cope DO> Cosigner Signature (if applicable): CC: ~ Signed [facility] Work Phone: 1(431) 589-748408-01-2025 Progress note [facility] Medical Records Department [address] [facility] [place] [address] Progress Note - Hospitalist 12/22/24 1638 MR#: [id number] Acct: [id number] Name: JESS JAMES Rep #:[id number] : 1935 89 From: Radha Cope DO PCP: Dr. Dyan Kyle MD Status:A DM IN Location: MS3 ID957-9 Reason for Visit Chief Complaint: Fall with [...] work/case management following and working on placement -[facility] once approved by insurance CODY secondary to [...] -FULL CODE Charges/Coding Visit Charges Inpatient E&M: 04279 Subs Hosp L1 Date medically ready for discharge: 12/22/24 Reason for DC delay: Precert pending from insurance 12/22/24 1643 Cosigner Signature (if applicable): CC: ~ Signed [facility]08-01-2025 Progress note Author Renae Rodríguez [facility] Note Date/Time December 22, 2024 7:5 7am [facility] Medical Records Department [address] [place] [address] Progress Note - Orthopedic 12/22/24 0754 MR#: [id number] Acct: [id number] Name: JESS JAMES Rep #:[id number] : 1935 89 From: Renae IGLESIAS PCP: Dr. Dyan Kyle MD Status:A DM IN Location: MS3 WN587-3 Subjective Subjective Patient seen 12/21/[address] [...] Cosigner Signature (if applicable): CC: ~ Signed [facility] Work Phone: 1(337) 357-405308-01-2025 Progress note [facility] Medical Records Department [address] [place] [address] Progress Note - Orthopedic 12/22/24753 MR#: [id number] Acct: [id number] Name: JESS JAMES Rep #:[id number] : 1935 89 From: Renae IGLESIAS PCP: Dr. Dyan Kyle MD Status:A DM IN Location: [place] [address] Subjective Subjective Patient seen 12/21/[address] [...] in 2 weeks for staple removal. 12/22/24 6967 Cosigner Signature (if applicable): CC: ~ Signed [facility]07-31-2025 Progress note Author Radha Cope [facility] Note Date/Time December 21, 2024 5:56 pm [facility] Medical Records Department [address] [place] [address] Progress Note - Hospitalist 12/21/24 0823 MR#: [id number] Acct: [id number] Name: JESS JAMES Rep #:[id number] : 1935 89 From: Radha Cope DO PCP: Dr. Dyan Kyle MD Status:A DM IN Location: [facility] JP165-4 Reason for Visit Chief Complaint: Fall with [...] work/case management following and working on placement -[facility] once approved by insurance CODY secondary to [...] -FULL CODE Charges/Coding Visit Charges Inpatient E&M: 31895 Subs Hosp L2 12/21/24 7857 <Electronically signed by Radha Cope DO> Cosigner Signature (if applicable): CC: ~ Signed [facility] Work Phone: 1(603) 636-518707-31-2025 Progress note [facility] Medical Records Department [address] [place] [address] Progress Note - Hospitalist 12/21/24 0823 MR#: [id number] Acct: [id number] Name: JESS JAMES Rep #:[id number] : 1935 89 From: Radha Cope DO PCP: Dr. Dayn Kyle MD Status:A DM IN Location: [place] [address] Reason for Visit Chief Complaint: Fall with [...] Intake and Output for Last 24 Hours 07/12/20/24 12/21/24 23:59 23:59 23:59 Intake Total 258 [...] work/case management following and working on placement -[facility] once approved by insurance CODY secondary to [...] -FULL CODE Charges/Coding Visit Charges Inpatient E&M: 84477 Subs Hosp L2 12/21/24 8381 Cosigner Signature (if applicable): CC: ~ Signed [facility]07-30-2025 Progress note Author Bj Hamilton [facility] Note Date/Time December 20, 2024 2:06 pm [facility] Medical Records Department [address] [place] [address] Progress Note - Orthopedic 12/20/24 1405 MR#: [id number] Acct: [id number] Name: JESS JAMES Rep #:[id number] : 1935 89 From: Bj Hamilton MD PCP: Dr. Dyan Kyle MD Status:A DM IN Location: [facility] [id number] Subjective Subjective Postop day 1 status post [...] on the solitary view obtained. Reading Location: [place] [address] Physical Exam Narrative Dressing?CDI. Distal neurovascular exam [...] Cosigner Signature (if applicable): CC: ~ Signed [facility] Work Phone: 1(485) 506-553207-30-2025 Progress note Author Radha Cope [facility] Note Date/Time December 20, 2024 1:48 pm [facility] Medical Records Department [address] [place] [address] Progress Note - Hospitalist 12/20/24 1340 MR#: [id number] Acct: [id number] Name: JESS JAMES Rep #:[id number] : 1935 89 From: Radha Cope DO PCP: Dr. Dyan Kyle MD Status:A DM IN Location: [facility]3 HF952-2 Reason for Visit Chief Complaint: Fall with [...] on the solitary view obtained. Reading Location: [place] [address] Physical Exam Const alert, oriented x3, no [...] -FULL CODE Charges/Coding Visit Charges Inpatient E&M: 43409 Subs Hosp L2 12/20/24 1348 <Electronically signed by Radha Cope DO> Cosigner Signature (if applicable): CC: ~ Signed [facility] Work Phone: 1(270) 111-247907-30-2025 Progress note [facility] Medical Records Department [address] [place] [address] Progress Note - Orthopedic 12/20/24 1405 MR#: [id number] Acct: [id number] Name: JESS JAMES Rep #:[id number] : 1935 89 From: Bj Hamilton MD PCP: Dr. Dyan Kyle MD Status:A DM IN Location: [facility]3 AT294-8 Subjective Subjective Postop day 1 status post [...] seen on the solitaryview obtained. Reading Location: [place] [address] Physical Exam Narrative Dressing?CDI. Distal neurovascular exam [...] Cosigner Signature (if applicable): CC: ~ Signed [facility]07-30-2025 Progress note [facility] Medical Records Department [address] [place] [address] Progress Note - Hospitalist 12/20/24 1340 MR#: [id number] Acct: [id number] Name: JESS JAMES Rep #:[id number] : 1935 89 From: Radha Cope DO PCP: Dr. Dyan Kyle MD Status:A DM IN Location: [place] [address] Reason for Visit Chief Complaint: Fall with [...] seen on the solitaryview obtained. Reading Location: [place] [address] Physical Exam Const alert, oriented x3, no [...] -FULL CODE Charges/Coding Visit Charges Inpatient E&M: 73197 Subs Hosp L2 12/20/24 1348 Cosigner Signature (if applicable): CC: ~ Signed [facility]07-29-2025 Consult note Author Bernardino Brian [facility] Note Date/Time December 19, 2024 8:35 pm [facility] Medical Records Department [address] [place] [address] Anesthesia Postop Eval II 12/19/242033 MR#: [id number] Acct: [id number] Name: JESS JAMES Rep #:[id number] : 1935 89 From: Bernardino Brian MD PCP: Dr. Dyan Kyle MD Status:A DM IN Y Race: C Location: [facility] MS324 -1 Anesthesia Postop Eval I Sum Postop Eval Completion status Anesthesia document: Postop Eval 1 completed: Yes Anesthesia Postop Eval I Summary Anesthesia Postop Eval I Summary: Anesthesia Postop Eval I: Assessment Summary 3 Airway patent Yes 12/19/24 16:38 MANAGER ASSEMBLY.SKOBY Spontaneous unlabored Yes 12/19/24 16:38 MANAGER ASSEMBLY.SKOBY respirations Mental status Asleep 12/19/24 16:38 MANAGER ASSEMBLY.SKOBY nausea No 12/19/24 16:38 MANAGER ASSEMBLY.SKOBY Vomiting No 12/19/24 16:38 MANAGER ASSEMBLY.SKOBY Anesthesia Postop Eval I: Fluid Summary Crystalloid volume administer 900 12/19/24 16:38 MANAGER ASSEMBLY.SKOBY (ml) Colloids volume administered ( ml) Blood Product volume administered (ml) Total IV fluid infused 900 12/19/24 16:38 MANAGER ASSEMBLY.SKOBY Anesthesia Postop Eval I: Summary Notes Anesthesia Complication No 12/19/24 16:38 MANAGER ASSEMBLY.SKOBY Anesthesia Complication Comment: Post-operative progress note Anesthesia: Postop Eval II Evaluation Mental status: Awake and Calm Pain Level: 2 nausea: No Vomiting: No Complications Anesthesia Complication: No 12/19/242034 <Electronically signed by Bernardino bermudez MD> Date _ Bernardino Brian MD Cosigner Signature: Date CC: ~ Signed [facility] Work Phone: 1(639) 648-556207-29-2025 Consult note [facility] Medical Records Department [address] [place] [address] Anesthesia Postop Eval II 12/19/242033 MR#: [id number] Acct: [id number] Name: JESS JAMES Rep #:[id number] : 1935 89 From: Bernardino Brian MD PCP: Dr. Dyan Kyle MD Status:A DM IN Y Race: C Location: [facility] MS324 -1 Anesthesia Postop Eval I Sum Postop Eval Completion status Anesthesia document: Postop Eval 1 completed: Yes Anesthesia Postop Eval I Summary Anesthesia Postop Eval I Summary: Anesthesia Postop Eval I: Assessment Summary 3 Airway patent Yes 12/19/24 16:38 MANAGER ASSEMBLY.SKOBY Spontaneous unlabored Yes 12/19/24 16:38 MANAGER ASSEMBLY.SKOBY respirations Mental status Asleep 12/19/24 16:38 MANAGER ASSEMBLY.SKOBY nausea No 12/19/24 16:38 MANAGER ASSEMBLY.SKOBY Vomiting No 12/19/24 16:38 MANAGER ASSEMBLY.SKOBY Anesthesia Postop Eval I: Fluid Summary Crystalloid volume administer 900 12/19/24 16:38 MANAGER ASSEMBLY.SKOBY (ml) Colloids volume administered ( ml) Blood Product volume administered (ml) Total IV fluid infused 900 12/19/24 16:38 MANAGER ASSEMBLY.SKOBY Anesthesia Postop Eval I: Summary Notes Anesthesia Complication No 12/19/24 16:38 MANAGER ASSEMBLY.SKOBY Anesthesia Complication Comment: Post-operative progress note Anesthesia: Postop Eval II Evaluation Mental status: Awake and Calm Pain Level: 2 nausea: No Vomiting: No Complications Anesthesia Complication: No 12/19/242034 aidan COVARRUBIAS> Date _ Bernardino Brian MD Cosigner Signature: Date CC: ~ Signed [facility]07-29-2025 Consult note Author Wanda Garcia [facility] Note Date/Time December 19, 2024 4:38 pm [facility] Medical Records Department [address] [place] [address] Anesthesia Postop Eval I 12/19/241636 MR#: [id number] Acct: [id number] Name: JESS JAMES Rep #:[id number] : 1935 89 From: Wanda jensen CRNA PCP: Dr. Dyan Kyle MD Status:A DM IN Y Race: C Location: [place] [address] Anesthesia: Postop Eval I Current Vital Signs [...] CRNA Cosigner Signature: Date CC: ~ Signed [facility] Work Phone: 1(757) 202-749807-29-2025 Progress note Author Radha Cope [facility] Note Date/Time December 19, 2024 3:44 pm [facility] Medical Records Department [address] [place] [address] Progress Note - Hospitalist 12/19/24 0742 MR#: [id number] Acct: [id number] Name: JESS JAMES Rep #:[id number] : 1935 89 From: Radha Cope DO PCP: Dr. Dyan Kyle MD Status:A DM IN Location: [facility] [id number] Reason for Visit Chief Complaint: Fall with [...] % (Auto) 64.2, Lymph % (Auto) 28.2, [place] % (Auto) 5.6, Eos % (Auto) 1.1, [...] Clarity Clear, Urine pH 7.0, Ur Specific [place] 1.010, Urine Protein 15 H, Urine Glucose [...] of scarring in both lungs. Reading Location: [id number] Hip/Pelvis X-Ray 12/18/24 13:15 IMPRESSION: There is a fracture through the right femoral neck with 0.9 cm impaction. Critical results were discussed with Dr. Alberto by Dr. Bello at the time of dictation. Reading Location: [facility] Physical Exam Const alert, oriented x3, no [...] extensive discussion Charges/Coding Visit Charges Inpatient E&M: 91925 Subs Hosp L2 12/19/24 1544 <Electronically signed by Radha Cope DO> Cosigner Signature (if applicable): CC: ~ Signed [facility] Work Phone: 1(968) 927-578107-29-2025 Procedure note [facility] Medical Records Department [address] [place] [address] Operative Report 12/19/24 1642 MR#: [id number] Acct: [id number] Name: JESS JAMES Rep #:[id number] : 1935 89 From: Bj Hamilton MD PCP: Dr. Dyan Kyle MD Status:A DM IN Location: [facility] [id number] Procedures Musculoskeletal 20xxx-29xxx: Other Procedure See Report Operative Report (Standard) Operative Information Date of Procedure: 12/19/24 Pre-Operative Diagnosis: Right femoral neck fracture, transcervical, displaced Post-Operative Diagnosis: Same Surgery/Procedure Performed: Right hip cemented hemiarthroplasty grain commodity manager: Yes Cooker Soda: Linda Bernstein Tasks completed by waiter/waitress first class: Closing, Removing tissue, Implanting device, Hemostasis: Electrocautery [...] that apply: Prosthetic device Prosthetic device details: [place] Accolade C cemented hip hemiarthroplasty Estimated Blood Loss: 50 cc Specimen collected: No Description of surgery: PRINCIPAL PRE-OP DIAGNOSIS: Right displaced FEMORAL NECK FRACTURE PRINCIPAL POST-OP DIAG: Same PRINCIPAL PROCEDURE: Right cemented HIP HEMIARTHROPLASTY CPT 89848 Surgeon: Bj Hamilton MD ANESTHESIA: General Anesthesia Record E.B.L. 50 SPECIMENS: None COMPLICATIONS: None DISPOSITION: PACU then potentially floor Implants: [place] Accolade C cemented femoral stem, bipolar head [...] See operative note Complications Complications: No 12/19/24 0170 Cosigner Signature (if applicable): CC: Dr. Amado Jean DO; Dr. Bj Hamilton MD; Dr. Dyan Kyle MD~ Signed [facility]07-29-2025 Consult note [facility] Medical Records Department [address] [place] [address] Anesthesia Postop Eval I 12/19/24 1637 MR#: [id number] Acct: [id number] Name: JESS JAMES Rep #:[id number] : 1935 89 From: Wanda jensen MANAGER ASSEMBLY PCP: Dr. Dyan Kyle MD Status:A DM IN Y Race: C Location: [place] [address] Anesthesia: Postop Eval I Current Vital Signs [...] document: Postop Eval 1 completed: Yes 12/19/241637 jaime MANAGER ASSEMBLY> Date _ Wanda Garcia MANAGER ASSEMBLY Cosigner Signature: Date CC: ~ Signed [facility]07-29-2025 Radiology Diagnostic study note [facility] Imaging Services [address] [place] [address] Hip 1 view with Pelvis MR#: [id number] Acct: [id number] Name: JESS JAMES Rep #: [id number] : 1935 M 89 From: Sanchez Aguayo MD PCP: Dr. Dyan Kyle MD Status: A DM IN Study:Hip 1 view with Pelvis Date of Exam: 12/19/24 Exam# [id number] Ordering Dr: Keysha Hamilton MD PROCEDURE: HIP 1 VIEW WITH PELVIS 12/19/2024 REASON FOR EXAM: HIP HEMIARTHROPLASTY TECHNIQUE: Single intraoperative view of the right hip COMPARISON: Preoperative study of 12/18/2024 RAD/Hip 1 view with Pelvis IMPRESSION: Interval placement a right proximal femoral endoprosthesis. No complication is seen on the solitaryview obtained. Reading Location: [place] [address] CC: Dr. Bj Hamilton MD; Dr. Dyan Kyle MD ~ Top Lifter: Signed [facility]07-29-2025 Progress note [facility] Medical Records Department [address] [place] [address] Progress Note - Hospitalist 12/19/24741 MR#: [id number] Acct: [id number] Name: JESS JAMES Rep #:[id number] : 1935 89 From: Radha Cope DO PCP: Dr. Dyan Kyle MD Status:A DM IN [facility] Reason for Visit Chief Complaint: Fall with [...] % (Auto) 64.2, Lymph % (Auto) 28.2, [place] % (Auto) 5.6, Eos % (Auto) 1.1, [...] Clarity Clear, Urine pH 7.0, Ur Specific [place] 1.010, Urine Protein 15 H, Urine Glucose [...] of scarring in both lungs. Reading Location: [facility] Hip/Pelvis X-Ray 12/18/24 13:15 IMPRESSION: There is a fracture through the right femoral neck with 0.9 cm impaction. Critical results were discussed with Dr. Alberto by Dr. Bello at the time of dictation. Reading Location: [facility] Physical Exam Const alert, oriented x3, no [...] extensive discussion Charges/Coding Visit Charges Inpatient E&M: 31238 Subs Hosp L2 12/19/24 1544 Cosigner Signature (if applicable): CC: ~ Signed [facility]07-29-2025 Consult note Author Bernardino Brian [facility] Note Date/Time December 19, 2024 1:33 pm [facility] Medical Records Department [address] [place] [address] [place] [address] Pre-Anesthesia Evaluation 12/19/24 1318 MR#: [id number] Acct: [id number] Name: JESS JAMES Rep #:[id number] : 1935 89 From: Bernardino Brian MD PCP: Dr. Dyan Kyle MD Status:A DM IN Y Race: C Location: [place] [address] ASA Classification* ASA Classification ASA Classification: 3 [...] hip hemiarthroplasty. Anesthesia History Anesthesia History - syrup mixer: Anesthesia History - syrup mixer Hx Hospitalization Any Problems With Anesthesia No [...] sips of water?: No PONV PONV - syrup mixer: PONV - syrup mixer Female HX of Motion Sickness HX of N/V After Surgery Non-Smoker Duration of Surgery greater than 60 minutes Number of Risk Factors PONV Score Height & Weight Height & Weight: Anesthesia: Height & Weight Height 5 ft 10 in 12/19/24 10:42 Weight: 81.238 kg 12/19/24 10:42 Body Mass Index (BMI) 25.7 12/19/24 10:42 Respiratory Assessment Respiratory Assessment - syrup mixer: Respiratory Tract Infection Hx - syrup mixer Hx Respiratory Tract Infection No 12/19/24 10:42 STOP Sleep Apnea STOP Sleep Apnea - syrup mixer: STOP Sleep Apnea - syrup mixer Hx Hypertension No 12/18/24 15:28 Hx Sleep [...] Tobacco Use History Tobacco Use History - syrup mixer: Tobacco Use History - syrup mixer Tobacco Use Smoking Status Never smoker 12/18/24 15:28 Hx Tobacco Use No 12/18/24 15:28 Years Smoking Packs Smoked per Day Smoking Cessation Date was within the last 15 years Hx Smoking Cessation Date Hx Smoking Cessation Counseling Hematologic Medial History Hematologic Hx - syrup mixer: 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 81 Mg Tablet PO BREAKFAST [facility] Atorvastatin Calcium 10 mg 12/18/24 22:00 12/18/24 21:58 Atorvastatin Calcium 10 Mg Tablet PO 10 mg QHS NURIS Administration Carvedilol 25 mg 12/18/24 17:00 12/19/24 09:04 Carvedilol 25 Mg Tablet [facility] Protocol Empagliflozin 10 mg 12/20/24 10:00 Empagliflozin 10 Mg Tablet PO DAILY NURIS Furosemide 40 mg 12/20/24 10:00 Furosemide 40 Mg Tablet PO DAILY [facility] Protocol Hydromorphone HCl 0.5 mg 12/18/24 16:06 Hydromorphone 0.5 Mg/0.5 Ml Syringe IV Q4H PRN PRN Pain Score 6-10 Sodium Chloride 250 mls @ 15 mls/hr 12/18/24 15:40 IV .[id number] PRN Saline Flush Sodium Chloride 250 mls @ 15 mls/hr 12/18/24 15:40 IV .[id number] PRN Additional IVPB Infusion Lactated Ringer's 1,000 [...] 07:09 Senna Tablet PO Not Given BID [facility] Sodium Chloride 10 - 40 ml 12/18/24 15:40 0.9% Saline Lock 10 Ml Syringe IV UD PRN SALINE FLUSH Spironolactone 25 mg 12/20/24 12:00 Spironolactone 25 Mg Tablet PO LUNCH [facility] Protocol PFSH Medical History (Updated 12/19/24 @ [...] no additional complaints, except as documented. 12/19/24 5363 <Electronically signed by Bernardino bermudez MD> Date _ Bernardino Brian MD Cosigner Signature: Date CC: ~ Signed [facility] Work Phone: [phone]) 134-653707-29-2025 Consult note Author [facility] Note Date/Time December 19, 2024 12:4 9pm [facility] Medical Records Department [address] [place] [address] Consultation - Orthopedics 12/19/24 1243 MR#: [id number] Acct: [id number] Name: JESS JAMES Rep #:[id number] : 1935 89 From: Bj Hamilton MD PCP: Dr. Dyan Kyle MD Status:A DM IN Location: [facility] [id number] HPI Consult Data Date of Consult: 12/19/24 HPI Narrative HPI Narrative: JESS JAMES is a 89 M who presents with right hip pain after fall. Patient had a fall when his fell towards him yesterday at the parking lot. This was a ground-level fall. He was brought in and was found to have right femoral neck fracture. I was consulted for orthopedics. Saw the patient today in [facility]. Patient had some balance issues and was [...] EF 35% in February 2024. [facility] Medical History (Updated 12/19/24 @ 12:47 by [...] % (Auto) 64.2, Lymph % (Auto) 28.2, [place] % (Auto) 5.6, Eos % (Auto) 1.1, [...] Clarity Clear, Urine pH 7.0, Ur Specific [place] 1.010, Urine Protein 15 H, Urine Glucose [...] of scarring in both lungs. Reading Location: [facility] Hip/Pelvis X-Ray 12/18/24 13:15 IMPRESSION: There [...] and family. Charges/Coding Visit Charges Inpatient E&M: 11023 Init Hosp L3 12/19/24 1249 <Electronically signed by Bj Hamilton MD> Cosigner Signature (if applicable): CC: Dr. Dyan Kyle MD; Dr. Radha Cope DO~ Signed [facility] Work Phone: 1(371) 245-301607-29-2025 Consult note [facility] Medical Records Department [address] [place] [address] Pre-Anesthesia Evaluation 12/19/24 1318 MR#: [id number] Acct: [id number] Name: JESS JAMES Rep #:[id number] : 1935 89 From: Bernardino Brian MD PCP: Dr. Dyan Kyle MD Status:A DM IN Y Race: C Location: [place] [address] ASA Classification* ASA Classification ASA Classification: 3 [...] hip hemiarthroplasty. Anesthesia History Anesthesia History - syrup mixer: Anesthesia History - syrup mixer Hx Hospitalization Any Problems With Anesthesia No [...] sips of water?: No PONV PONV - syrup mixer: PONV - syrup mixer Female HX of Motion Sickness HX of N/V After Surgery Non-Smoker Duration of Surgery greater than 60 minutes Number of Risk Factors PONV Score Height & Weight Height & Weight: Anesthesia: Height & Weight Height 5 ft 10 in 12/19/24 10:42 Weight: 81.238 kg 12/19/24 10:42 Body Mass Index (BMI) 25.7 12/19/24 10:42 Respiratory Assessment Respiratory Assessment - syrup mixer: Respiratory Tract Infection Hx - syrup mixer Hx Respiratory Tract Infection No 12/19/24 10:42 STOP Sleep Apnea STOP Sleep Apnea - syrup mixer: STOP Sleep Apnea - syrup mixer Hx Hypertension No 12/18/24 15:28 Hx Sleep [...] Tobacco Use History Tobacco Use History - syrup mixer: Tobacco Use History - syrup mixer Tobacco Use Smoking Status Never smoker 12/18/24 15:28 Hx Tobacco Use No 12/18/24 15:28 Years Smoking Packs Smoked per Day Smoking Cessation Date was within the last 15 years Hx Smoking Cessation Date Hx Smoking Cessation Counseling Hematologic Medial History Hematologic Hx - syrup 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: 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 Hx of Blood Transfusion No 12/18/24 15:28 [...] confused, unrespo /Reproduction History /Reproductive History - syrup mixer: /Reproductive Hx- syrup mixer Hx Now No 12/19/24 10:42 Gestational Age [...] mls @ 15 mls/hr 12/18/24 15:40 IV .[id number] PRN Saline Flush Sodium Chloride 250 mls @ 15 mls/hr 12/18/24 15:40 IV .O20Q80T PRN Additional IVPB Infusion Lactated Ringer's 1,000 [...] 12:00 Spironolactone 25 Mg Tablet PO LUNCH [facility] Protocol PFSH Medical History (Updated 12/19/24 @ [...] MD Cosigner Signature: Date CC: ~ Signed [facility]07-29-2025 Consult note [facility] Medical Records Department [address] [place] [address] Consultation - Orthopedics 12/19/24 1243 MR#: [id number] Acct: [id number] Name: JESS JAMES Rep #:[id number] : 1935 89 From: Bj Hamilton MD PCP: Dr. Dyan Kyle MD Status:A DM IN Location: [facility] [id number] HPI Consult Data Date of Consult: 12/19/24 [...] for orthopedics. Saw the patient today in [facility]. Patient had some balance issues and was [...] EF 35% in February 2024. [facility] Medical History (Updated 12/19/24 @ 12:47 by [...] % (Auto) 64.2, Lymph % (Auto) 28.2, [place] % (Auto) 5.6, Eos % (Auto) 1.1, [...] Clarity Clear, Urine pH 7.0, Ur Specific [place] 1.010, Urine Protein 15 H, Urine Glucose [...] of scarring in both lungs. Reading Location: [id number] Hip/Pelvis X-Ray 12/18/24 13:15 IMPRESSION: There is a fracture through the right femoral neck with 0.9 cm impaction. Critical results were discussed with Dr. Alberto by Dr. Bello at the time of dictation. Reading Location: [facility] Assessment & Plan Assessment/Plan (1) Fracture of [...] and family. Charges/Coding Visit Charges Inpatient E&M: 13371 Init Hosp L3 12/19/24 1249 Cosigner Signature (if applicable): CC: Dr. Dyan Kyle MD; Dr. Radha Cope DO~ Signed [facility]07-28-2025 Discharge summary Author Win Alberto [facility] Note Date/Time December 18, 2024 4:36 pm [facility] Medical Records Department [address] [place] [address] Emergency Department Summary 12/18/24 MR#: [id number] Acct: [id number] Name: JESS JAMES Rep #:[id number] : 1935 89 From: Win Morales PCP: Dr. Dyan Kyle MD Status:A DM IN Location: [facility] [id number] HPI HPI - Fall History of Present [...] or weakness. Patient denies any other injuries. [facility] Medical History (Updated 12/18/24 @ [...] motor deficits and no sensory deficits noted Kincaid Coma Scale: document GCS findings Spontaneous Obeys [...] % (Auto) 64.2 Lymph % (Auto) 28.2 [place] % (Auto) 5.6 Eos % (Auto) 1.1 [...] of scarring in both lungs. Reading Location: [id number] Hip/Pelvis X-Ray 12/18/24 13:15 IMPRESSION: There is a fracture through the right femoral neck with 0.9 cm impaction. Critical results were discussed with Dr. Alberto by Dr. Bello at the time of dictation. Reading Location: [facility] X-rays of the right hip were obtained. [...] cancer, Hypertension Disposition Disposition: Acute Care Hospital [facility] Discharge Date/Time: 12/18/24 15:17 What to do if you have Problems For any increased pain, shortness of breath, bleeding, nausea or vomiting, chestpain, or any unexpected problems, contact your Primary Care Provider. Call [facility] ([phone]) or report to the closest Emergency Room. Call 911 if necessary. 12/18/24 1636 <Electronically signed by Win Alberto DO> Cosigner Signature (if applicable): CC: Dr. Dyan Kyle MD ~ Signed [facility] Work Phone: 1([phone]) 495-152907-28-2025 History and physical note Author Amado Jean [facility] Note Date/Time December 18, 2024 4:01 pm [facility] Medical Records Department [address] [place] [address] H&P Exam - Hospitalist 12/18/24 1435 MR#: [id number] Acct: [id number] Name: JESS JAMES Rep #:[id number] : 1935 89 From: Amado ramírez DO PCP: Dr. Dyan Kyle MD Status:A DM IN Location: [facility] [id number] HPI - General General Date of Admission: 12/18/24 Date of Service: 12/18/24 Chief Complaint: Fall with right hip pain HPI Narrative JESS JAMES, is a 89 M who presented to [facility] ED on 12/18/2024 with right hip [...] be admitted for further management. [facility] Medical History (Updated 12/18/24 @ [...] % (Auto) 64.2, Lymph % (Auto) 28.2, [place] % (Auto) 5.6, Eos % (Auto) 1.1, Baso % (Auto) 0.3, Absolute Neuts (auto) 4.0, Absolute Lymphs (auto) 1.75, Nucleated RBC % 0 Imaging Radiology Impression Chest X-Ray 12/18/24 13:15 IMPRESSION: Cardiomegaly. Findings suggestive of scarring in both lungs. Reading Location: [facility] Hip/Pelvis X-Ray 12/18/24 13:15 IMPRESSION: There is a fracture through the right femoral neck with 0.9 cm impaction. Critical results were discussed with Dr. Alberto by Dr. Bello at the time of dictation. Reading Location: [facility] Assessment & Plan Assessment/Plan (1) Fracture of femoral neck, right, closed: PLAN: Plan Patient is an 89-year-old male who presented [facility] ED on 12/18/2024 with right hip pain after a fall at home. 1. Right femoral neck fracture ? Admit under inpatient status to [facility]. Orthopedic surgery consulted. PT/OT/case management consulted. [...] 75 minutes. Charges/Coding Visit Charges Inpatient E&M: 69726 Init Hosp L3 12/18/24 1601 <Electronically signed by Amado Jean DO> Cosigner Signature (if applicable): CC: Dr. Amado Jean DO; Dr. Dyan Kyle MD~ Signed [facility] Work Phone: 1(152) 640-816307-28-2025 Discharge summary [facility] Medical Records Department [address] [facility] [place] [address] Emergency Department Summary 12/18/24 MR#: [id number] Acct: [id number] Name: JESS JAMES Rep #:[id number] : 1935 89 From: Win Morales PCP: Dr. Dyan Kyle MD Status:A DM IN Location: [facility] PD558-5 HPI HPI - Fall History of Present [...] or weakness. Patient denies any other injuries. [facility] Medical History (Updated 12/18/24 @ [...] % (Auto) 64.2 Lymph % (Auto) 28.2 [place] % (Auto) 5.6 Eos % (Auto) 1.1 [...] of scarring in both lungs. Reading Location: [facility] Hip/Pelvis X-Ray 12/18/24 13:15 IMPRESSION: There is a fracture through the right femoral neck with 0.9 cm impaction. Critical results were discussed with Dr. Alberto by Dr. Bello at the time of dictation. Reading Location: [facility] X-rays of the right hip were obtained. [...] cancer, Hypertension Disposition Disposition: Acute Care Hospital [facility] Discharge Date/Time: 12/18/24 15:17 What to do if you have Problems For any increased pain, shortness of breath, bleeding, nausea or vomiting, chestpain, or any unexpected problems, contact your Primary Care Provider. Call [facility] ([phone]) or report tothe closest Emergency Room. Call 911 if necessary. 12/18/24 1636 Cosigner Signature (if applicable): CC: Dr. Dyan Kyle MD ~ Signed [facility]07-28-2025 Evaluation note* Diagnosis Onset Date Resolution Status Admit Date Fracture of femoral neck, right, closed acute December 18, 2024 2:35pm Status post hemiarthroplasty of right hip acute December 18, 2024 2:35pm Fracture of femoral neck, right, closed acute January 05 8:59am Status post hemiarthroplasty of right hip acute January 05 8:59am Status post hemiarthroplasty of right hip acute January 15 7:47am Congestive heart failure (CHF) chron ic January 15, 2025 7:47am Debility chronic January 15, 2 025 7:47am Hypertension chronic January 15, 2025 7:47am Fracture of femoral neck, right, closed acute February 02, 2025 1:30pm Status post hemiarthroplasty of right hip acute February 02, 2025 1:30pm Flu vaccine need acute r 2024 9:23am History of prostate cancer acute February 14, 2025 9:23am Localized skin mass, lump, o r swelling acute February 14, 2025 9:23am Status post hemiarthroplasty of right hip acute February 14, 2025 9:23am Congestive heart failure (CHF) chron ic February 14, 2025 9:23am Debility chronic January 9:23am Hypertension chronic February 142024 9:23am Type 2 diabetes mellitus chronic February 14, 2025 9:23am 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 January 9:23am 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 March 12, 2025 10:07am Hypertension chronic February 10:07am Left bundle branch block chronic March 12, 2025 10:07am 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 March 12, 2025 10:07am Fracture of femoral neck, right, closed acute March 16 1:34pm Status post hemiarthroplasty of right hip acute March 16 1:34pm 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 Dyan Kyle MD Status:A DM IN Location: [facility] [id number] HPI - General General Date of Admission: 12/18/24 Date of Service: 12/18/24 Chief Complaint: Fall with right hip pain HPI Narrative JESS JAMES, is a 89 M who presented to [facility] ED on 12/18/2024 with right hip [...] be admitted for further management. [facility] Medical History (Updated 12/18/24 @ [...] % (Auto) 64.2, Lymph % (Auto) 28.2, [place] % (Auto) 5.6, Eos % (Auto) 1.1, Baso % (Auto) 0.3, Absolute Neuts (auto) 4.0, Absolute Lymphs (auto) 1.75, Nucleated RBC % 0 Imaging Radiology Impression Chest X-Ray 12/18/24 13:15 IMPRESSION: Cardiomegaly. Findings suggestive of scarring in both lungs. Reading Location: [id number] Hip/Pelvis X-Ray 12/18/24 13:15 IMPRESSION: There is a fracture through the right femoral neck with 0.9 cm impaction. Critical results were discussed with Dr. Alberto by Dr. Bello at the time of dictation. Reading Location: [facility] Assessment & Plan Assessment/Plan (1) Fracture of femoral neck, right, closed: PLAN: Plan Patient is an 89-year-old male who presented [facility] ED on 12/18/2024 with right hip pain after a fall at home. 1. Right femoral neck fracture ? Admit under inpatient status to [facility]. Orthopedic surgery consulted. PT/OT/case management consulted. [...] 75 minutes. Charges/Coding Visit Charges Inpatient E&M: 20749 Init Hosp L3 12/18/24 1601 Cosigner Signature (if applicable): CC: Dr. Amado Jean DO; Dr. Dyan Kyle MD~ Signed [facility]07-28-2025 Radiology Diagnostic study note [facility] Imaging Services [address] [place], [place] [address] HIP, UNI W/ Pelvis 2-3 Views MR#: [id number] Acct: [id number] Name: JESS JAMES Rep #: [id number] : 1935 M 89 From: Mark Bello MD PCP: Dr. Dyan Kyle MD Status: R ER Study:HIP, UNI W/ Pelvis 2-3 Views Date of Ex am: 12/18/24 Exam# [id number] Ordering Dr: Win Alberto DO PROCEDURE: HIP, [...] Kyle MD; Dr. Win Alberto DO ~ Top Lifter: Signed [facility]07-28-2025 Radiology Diagnostic study note [facility] Imaging Services [address] [place], [place] [id number] Chest 1 View MR#: [id number] Acct: [id number] Name: JESS JAMES Rep #: [id number] : 1935 M 89 From: Talat Menjivar MD PCP: Dr. Dyan Kyle MD Status: R EG ER Study:Chest 1 View Date of Exam: Exam# [id number] Ordering Dr: Win Alberto DO PROCEDURE: CHEST [...] Kyle MD; Dr. Win Alberto DO ~ Top Lifter: Signed [facility] [facility]06-17-2025 Progress [facility] [address] [place] [address] OFFICE VISIT Date of Service: 11/07/24 1350 MR#: [id number] Acct: [id number] Name: JESS JAMES Rep #: [id number] : 1935 From: Carolina adams MD Age/Sex: 89/M Location: [facility] Status: Signed HPI Subjective Date of Service [...] March 12, 2023 orthopedic oncology evaluation at [facility], Dr. Fischer: Advised conservative management. [...] weeks starting March 29, 2023 [facility] Medical History (Updated 11/07/24 @ 13:58 by [...] room air room air room air Intake Tire Mechanic Required: No Accompanied by: Is patient in [...] gait and assistive device used cane Coordination: ennxmm-ve-zcsg test normal Psych mental status grossly normal [...] subsided. Was evaluated by orthopedic oncology at [facility] and conservative management of the [...] Impression and plan discussed Carolina Mcgee MD County Assessor, [facility] Divisions of Medical Oncology & Hematology Department of Internal Medicine [place] [phone] This note was generated using a voice [...] applicable) CC: Dr. Dyan Kyle MD ~ [facility]06-17-2025 Progress note Author Carolina Mcgee [facility] Note Date/Time November 07, 2024 2:29 pm [facility] [place] [address] OFFICE VISIT Date of Service: 11/07/24 1350 MR#: [id number] Acct: [id number] Name: JESS JAMES Rep #: [id number] : 1935 From: Carolina adams MD Age/Sex: 89/M Location: [facility] Status: Signed HPI Subjective Date of Service [...] March 12, 2023 orthopedic oncology evaluation at [facility], Dr. Fischer: Advised conservative management. [...] weeks starting March 29, 2023 [facility] Medical History (Updated 11/07/24 @ 13:58 by iTffanie Lucia) Cutaneous horn Congestive heart failure (CHF) [...] room air room air room air Intake Tire Mechanic Required: No Accompanied by: Is patient in [...] gait and assistive device used cane Coordination: kdbwby-lo-hmoc test normal Psych mental status grossly normal [...] subsided. Was evaluated by orthopedic oncology at [facility] and conservative management of the [...] Impression and plan discussed Carolina Mcgee MD County Assessor, [facility] Divisions of Medical Oncology & Hematology Department of Internal Medicine [place] [phone] This note was generated using a voice [...] fallen in the past year?: Yes 11/07/24 5575 <Electronically signed by Carolina romero MD> Date _ Carolina [facility] Signature: Date (if applicable) CC: Dr. Dyan Kyle MD ~ [facility] Work Phone: 1([phone]) 874-229206-04-2025 Evaluation note* Diagnosis Onset Date Resolution Status Admit Date BPH (benign prostatic hyperplasia) chronic October 25, [...] of right hip acute January 05 8:59am Status post hemiarthroplasty of right hip acute January 15 7:47am Congestive heart failure (CHF) chron January 15, 2025 7:47am Debility chronic January 15, 2 025 7:47am Hypertension chronic January 15, 2025 7:47am [facility] Work Phone: 1([phone]) 233-991106-04-2025 Evaluation note* Diagnosis Onset Date Resolution Status Admit Date BPH (benign prostatic hyperplasia) chronic October 25, 2024 2 :05pm Congestive heart failure (CHF) chron October 25, 2024 2:05pm Hypertension chronic October 25 2:05pm Type 2 diabetes mellitus chronic October 25, 2024 2:05pm 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 October 222024 1:17pm Pathologic fracture of humerus chron November 07, 2024 1:17pm Prostate cancer chronic October 1:17pm Fracture of femoral neck, right, closed acute December 18, 2024 2:35pm Status post hemiarthroplasty of right hip acute December 18, 2024 2:35pm Fracture of femoral neck, right, closed acute January 05 8:59am Status post hemiarthroplasty of right hip acute January 05 8:59am Status post hemiarthroplasty of right hip acute January 15 7:47am Congestive heart failure (CHF) chron January 15, 2025 7:47am Debility chronic January 15, 2 025 7:47am Hypertension chronic January 15, 2025 7:47am Fracture of femoral neck, right, closed acute February 02, 2025 1:30pm Status post hemiarthroplasty of right hip acute February 02, 2025 1:30pm Flu vaccine need acute 2024 9:23am History of prostate cancer acute February 14, 2025 9:23am Localized skin mass, lump, o r swelling acute February 14, 2025 9:23am Status post hemiarthroplasty of right hip acute February 14, 2025 9:23am Congestive heart failure (CHF) [facility] February 14, 2025 9:23am Debility chronic January 9:23am Hypertension chronic February 142024 9:23am Type 2 diabetes mellitus chronic February 14, 2025 9:23am 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 January 9:23am [facility] Work Phone: [phone] 114-737705-06-2025 Evaluation note* Diagnosis Onset Date Resolution Status [...] of right hip acute January 05 8:59am [facility] Work Phone: 1([phone] 358-199505-06-2025 Evaluation note* Diagnosis Onset Date Resolution Status [...] of right hip acute January 05 8:59am Status post hemiarthroplasty of right hip acute January 15 7:47am Congestive heart failure (CHF) chron ic January 15, 2025 7:47am Debility chronic January 15, 2 025 7:47am Hypertension chronic January 15, 2025 7:47am [facility] Work Phone: [phone] 502-281804-22-2025 Evaluation note* Diagnosis Onset Date Resolution Status [...] 2024 1:17pm Prostate cancer chronic October 1:17pm [facility] Work Phone: 1([phone]) 975-697504-22-2025 Evaluation note* Diagnosis Onset Date Resolution Status [...] right hip acute December 18, 2024 2:35pm [facility] Work Phone: [phone]) 833-693804-22-2025 Evaluation note* Diagnosis Onset Date Resolution Status [...] of right hip acute January 05 8:59am [facility] Work Phone: [phone]) 987-652703-25-2025 Evaluation note* Diagnosis Onset Date Resolution Status [...] 2024 1:17pm Prostate cancer chronic October 1:17pm [facility] Work Phone: 1([phone]) 397-907803-18-2025 Nuclear medicine Diagnostic study note [facility] Imaging Services [address] [place] [address] Bone Scan Whole Body MR#: [id number] Acct: [id number] Name: JESS JAMES Rep #: [id number] : 1935 M 89 From: Biju Araujo DO PCP: Dr. Dyan Kyle MD Status: R EG CLI Study:Bone Scan Whole Body Date of Exam: 08/07/24 Exam# [id number] Ordering Dr: Carolina Mcgee MD PROCEDURE: Nuclear [...] demonstrated on the current examination. Reading Location: [facility] CC: Dr. Dyan Kyle MD; Dr. 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 Stable alignment and progressive healing of a mildly angulated pathologic fracture at the mid left humeral diaphysis. Underlying aggressive lytic lesion with cortical invasion. RADIOLOGY 02-13-2023 Progress note Author Ted Lee [facility] February 13, 2023 4:06pm Note Date/Time February 13, 2023 8:13am [facility] Medical Records Department [address] [place] [address] Progress Note - Hospitalist 02/13/23 0811 MR#: [id number] Acct: [id number] Name: JESS JAMES Rep #:[id number] : 1935 87 From: Ted Loya PCP: Dr. Dyan Kyle MD Status:A DM IN Location: [place] [address] Reason for Visit Reason for Visit: Diagnoses [...] % (Auto) 66.8, Lymph % (Auto) 23.5, [place]% (Auto) 8.2, Eos % (Auto) 0.5, Baso [...] % (Auto) 68.9, Lymph % (Auto) 21.9, [place] % (Auto) 7.5, Eos % (Auto) 0.8, [...] pathological fracture: [facility]. Patient wasevaluated by the orthopedic [...] % (Auto) 68.9, Lymph % (Auto) 21.9, [place] % (Auto) 7.5, Eos % (Auto) 0.8, [...] 149 H Charges/Coding Visit Charges Inpatient E&M: 94249 Subs Hosp L2 02/13/23 1606 <Electronically signed by Ted Lee MD> Cosigner Signature (if applicable): CC: ~ Signed [facility] Work Phone: 1(228) 469-287309-23-2023 Consult note Author Theodore [facility] February 13, 2023 10:45am Note Date/Time February 13, 2023 10:45am [facility] Medical Records Department [address] [place] [address] Consultation 02/13/23 1039 MR#: [id number] Acct: [id number] Name: JESS JAMES Rep #:[id number] : 1935 87 From: Theodore [employer] PCP: Dr. Dyan Kyle MD Status:A DM IN Location: [facility] [id number] Assessment & Plan Assessment/Plan (1) Cellulitis of [...] consistent concerning for pathologic fracture. [facility] Medical History (Updated 02/13/23 @ 10:43 by [...] % (Auto) 66.8, Lymph % (Auto) 23.5, [place]% (Auto) 8.2, Eos % (Auto) 0.5, Baso [...] % (Auto) 68.9, Lymph % (Auto) 21.9, [place] % (Auto) 7.5, Eos % (Auto) 0.8, [...] Menjivar MD at 14:42 EDT , 02/13/23 1045 <Electronically signed by Theodore Starks DO> Cosigner Signature (if applicable): CC: Dr. Mariana Brown MD; Dr. Dyan Kyle MD; Dr. Theodore Starks DO~ Signed [facility] Work Phone: 1([phone]) 476-951509-22-2023 Discharge summary Author Simeon Gusman [facility] February 12, 2023 4:47pm Note Date/Time February 12, 2023 2:16pm [facility] Medical Records Department [address] [place] [address] Emergency Department Summary 02/12/23 MR#: [id number] Acct: [id number] Name: JESS JAMES Rep #:[id number] : 1935 87 From: Simeon Gusman MD PCP: Dr. Dyan Kyle MD Status:A DM IN Location: [place] [address] HPI History of Present Illness HPI Narrative: [...] has a strong radial pulse. He has admission nurse strength in his left hand. And sensation. [...] From the elbow to the wrist. Normal admission nurse strength. Normal radial pulse. Swelling of the [...] Narrative Medical decision making narrative: There is [id number] male who has had recent falls. Is [...] diabetes mellitus Disposition Disposition: Acute Care Hospital [facility] What to do if you have Problems For any increased pain, shortness of breath, bleeding, nausea or vomiting, chestpain, or any unexpected problems, contact your Primary Care Provider. Call [facility] ([phone]) or report to the closest Emergency Room. Call 911 if necessary. 02/12/237 <Electronically signed by Simeon Gusman MD> Cosigner Signature (if applicable): CC: Dr. Dyan Kyle MD ~ Signed [facility] Work Phone: 1([phone]) 611-988109-22-2023 History and physical note Author Mariana Brown [facility] February 12, 2023 3:54pm Note Date/Time February 12, 2023 3:32pm [facility] Medical Records Department [address] [place] [address] H&P Exam - Hospitalist 02/12/23 1528 MR#: [id number] Acct: [id number] Name: JESS JAMES Rep #:[id number] : 1935 87 From: Mariana Brown MD PCP: Dr. Dyan Kyle MD Status:A DM IN Location: [facility] [id number] HPI - General General Date of Admission: 02/12/23 Date of Service: 02/12/23 Chief Complaint: LUE pain, redness, swelling s/p fall. HPI Narrative The patient is an 87 y/o M w/ PMHx: BPH, HTN, Diabetes mellitus type II who presents to the [facility] ED on 02/12/23 with history of mechanical [...] with cellulitic findings with appropriate sensation and admission nurse strength with dressing and splint taken down [...] to see patient in consult. [facility] Medical History (Updated 02/12/23 @ 15:45 by [...] % (Auto) 66.8, Lymph % (Auto) 23.5, [place]% (Auto) 8.2, Eos % (Auto) 0.5, Baso [...] mellitus type II who presents to the [facility] ED on 02/12/23 with history of mechanical [...] 16 minutes. Charges/Coding Visit Charges Inpatient E&M: 14929 Init Hosp L3 Procedures Hospitalists Procedures: 19914 Advncd Care Plan 30 Min 02/12/23 1554 <Electronically signed by Mariana Brown MD> Cosigner Signature (if applicable): CC: Dr. Mariana Brown MD; Dr. Dyan Kyle MD~ Signed [facility] Work Phone: [phone]) 771-742607-20-2022 Miscellaneous Notes* Telephone Encounter - Saniaregi Gregory APRN.CNP - 12/10/2021 2:44 PM EDT [...] Please review. Kimi Reyes [facility] NoteHNO ID: [id number] Author: Sophia Pineda LPN Service: ? Author [...] instructions after review by PCP. Sophia Pineda [facility]04-30-2021 NoteHNO ID: [id number] Author: Joce Hernandez APRN.[employer] SHADE MAKER Service: ? Author Type: Nurse Practitioner Type: [...] - BMP (BMP) (FOR REMOTE [facility] USE) - HEMOGLOBIN A1C (FOR REMOTE [facility] USE) 2. Elevated blood pressure reading without diagnosis of hypertension - ICD9: 796.2, ICD10: R03.0 - Encouraged dietary sodium restriction/DASH diet - Recheck in 2-4 weeks, sooner if needed. 3. Situation (more content not included)...[facility] summary Author Ted Lee [facility] February 14, 2023 11:10am Note Date/Time February 14, 2023 11:05am [facility] Medical Records Department [address] [place] [address] Instructions for Home/Discharge Instructions 02/14/23 1103 MR#: [id number] Acct: [id number] Name: JESS JAMES Rep #:[id number] : 1935 87 From: Ted Loya PCP: [...] Brown Instructions Additional Instructions / Restrictions: call [employer] [address] [[facility], [facility] [address]] and bring prescription to obtain Trujillo clam shell brace to left humerus. than begin elbow ROM and shoulder pendulums as demonstrated by dr Starks 3x/day, in addition to finger and wrist ROM to avoid loss of function and maintain range ofmotion. No lifting pushing or pulling with left arm. Advised to follow-up orthopedic oncology, Dr. Nicholas Menendez, [facility] Ortho quality are Dr. Lopez, in [facility]. Discharge Orders/Prescriptions Prescriptions: New oxycodone 5 mg Tablet 2.5 - 5 mg PO Q4H PRN PRN (Reason: Pain Score 4-10) 7 Days Qty: 20 0RF acetaminophen 325 mg Tablet 1,000 mg PO Q8H Qty: 0 0RF Rx Instructions: Dpfj-fbs-qxqlady. 1000 mg every 8 hourly for 1 [...] MD; Dr. Dyan Kyle MD; Dr. Theodore Starks, DO ~ Signed [facility] Work Phone: Discharge summary Author Radha Cope [facility] Note Date/Time December 24, 2024 1:2 8pm [facility] Medical Records Department [address] [place] [address] Transfer to Extended Care MR#: [id number] Acct: [id number] Name: JESS JAMES Rep #:[id number] : 1935 89 From: Radha Cope DO PCP: Dr. Dyan Kyle MD Status:A DM IN Certification of patient admission REQUIRED AT TIME OF ADMISSION. I CERTIFY THAT POST-HOSPITAL ECF SERVICES ARE REQUIRED TO BE GIVEN ON AN IN-PATIENT BASIS BECAUSE OF THE ABOVE NAMED PATIENT'S NEED FOR SENIOR CARE CARE ON A CONTINUING BASIS FOR THE CONDITION(S) FOR WHICH HE/SHE WAS RECEIVINGIN-PATIENT HOSPITAL SERVICES PRIOR TO HIS/HER TRANSFER TO THE [facility]. 12/24/24 1322<Electronically signed by Radha Cope DO> [...] Hamilton MD; Dr. Dyan Kyle MD~* Signed [facility] Work Phone: Discharge summary Author Radha Cope [facility] Note Date/Time December 24, 2024 1:3 6pm [facility] Medical Records Department [address] [place] [address] Discharge Summary 12/24/24 1322 MR#: [id number] Acct: [id number] Name: JESS JAMES Rep #:[id number] : 1935 89 From: Radha Cope DO PCP: Dr. Dyan Kyle MD Status:A DM IN Location: [facility] [id number] Providers Date of Admission: 12/18/24 Date of [...] surgery by the emergency department physician and planwas for surgical intervention. He was admitted to [...] obtained and he was discharged to [facility] in stable condition at that [...] in before D/C Order can be placed): Long Term Facility Charges/Coding Visit Charges Inpatient E&M: 71805 SNF Disch >30 Min 12/24/24 1336 <Electronically signed by Radha Cope DO> Cosigner Signature (if applicable): CC: Dr. Bj Hamilton MD; Dr. Dyan Kyle MD; Dr. Radha Cope DO~ Signed [facility] Work Phone: Evaluation note* Diagnosis Onset Date Resolution Status Change in skin mole acute Elevated blood pressure reading acute Type 2 diabetes mellitus chr onic [facility] Work Phone: Evaluation note* Diagnosis Controlled type 2 diabetes mellitus with stage 3 chronic kidney disease, without long-term current use of insulin (HCC) documented [facility] this encounter [facility] Diagnosis Onset Date Resolution [...] Fall acute History of diabetes mellitus acute [facility] Work Phone: Evaluation note* Diagnosis Onset [...] Fall acute History of diabetes mellitus acute [id number] acute Pathologic fracture of humerus acute [facility] Work Phone: Evaluation note* Diagnosis Onset [...] acute Elevated PSA acute Prostate enlargement acute [facility] Work Phone: Evaluation note* Diagnosis Onset [...] fracture of humerus acute Prostate cancer acute [facility] Work Phone: Evaluation note* Diagnosis 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, initial encounter [facility] Diagnosis Onset Date Resolution Status [...] fracture of humerus chronic Prostate cancer chronic [facility] Work Phone: Evaluation note* Diagnosis 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, initial encounter [facility] Diagnosis Onset Date Resolution Status Change [...] fracture of humerus chronic Prostate cancer chronic [facility] Work Phone: Evaluation note* Diagnosis Onset [...] Pathologic fracture of humerus chronic Prostate cancer [facility] Work Phone: Evaluation note* Diagnosis Onset [...] lower extremities chronic Weight loss, non-intentional chronic [facility] Work Phone: History and physical note Author Mariana Brown [facility] February 12, 2023 3:54pm Note Date/Time February 12, 2023 3:32pm [facility] Medical Records Department [address] [place] [address] H&P Exam - Hospitalist 02/12/23 1528 MR#: [id number] Acct: [id number] Name: JESS JAMES Rep #:[id number] : 1935 87 From: Mariana Brown MD PCP: Dr. Dyan Kyle MD Status:A DM IN Location: [facility] SY373-6 HPI - General General Date of Admission: 02/12/23 Date of Service: 02/12/23 Chief Complaint: LUE pain, redness, swelling s/p fall. HPI Narrative The patient is an 87 y/o M w/ PMHx: BPH, HTN, Diabetes mellitus type II who presents to the [facility] ED on 02/12/23 with history of mechanical [...] with cellulitic findings with appropriate sensation and admission nurse strength with dressing and splint taken down [...] to see patient in consult. [facility] Medical History (Updated 02/12/23 @ 15:45 by [...] % (Auto) 66.8, Lymph % (Auto) 23.5, [place]% (Auto) 8.2, Eos % (Auto) 0.5, Baso [...] mellitus type II who presents to the [facility] ED on 02/12/23 with history of mechanical [...] 16 minutes. Charges/Coding Visit Charges Inpatient E&M: 93523 Init Hosp L3 Procedures Hospitalists Procedures: 85237 Advncd Care Plan 30 Min 02/12/23 1554 <Electronically signed by Mariana Brown MD> Cosigner Signature (if applicable): CC: Dr. Mariana Brown MD; Dr. Dyan Kyle MD~ Signed [facility] Work Phone: Hospital Discharge instructionsAmbulatory Orders* Oncology Location: None Selected [facility] Work Phone: Progress note Author Theodore [facility] February 14, 2023 10:40am Note Date/Time February 14, 2023 10:35am [facility] Medical Records Department [address] [place] [address] Progress Note - Orthopedic 02/14/23 1030 MR#: [id number] Acct: [id number] Name: JESS JAMES Rep #:[id number] : 1935 87 From: Theodore [employer] PCP: Dr. Dyan Kyle MD Status:A DM IN Location: [facility] [id number] Subjective Subjective Seen and examined doing okay [...] Trujillo clamshell brace to be obtained from [employer]. Instructed to call prior to arriving. Patient [...] 1040 Addendum Once brace is obtained from [employer] begin elbow range of motion and shoulder pendulum exercises as were demonstrated no lifting pushing or pulling left arm. I provided narcotic prescription left on the chart. 02/14/23 1040<Electronically signed by Theodore Starks DO> Cosigner Signature (if applicable): cc: ~* Signed [facility] Work Phone: Progress note Author Dyan Kyle [facility] Note Date/Time February 14, 2025 10:27am [facility] Internal Medicine [address] [place] [address] [place] [address] OFFICE VISIT Date of Service: 02/14/25 MR#: [id number] Acct: [id number] Name: JESS JAMES Rep #: [id number] : 1935 Provider: Dr. Liane Kyle MD Age/Sex: 89/M Location[facility] Status: Signed Intake Vital Signs 01/15/25 08:03 02/14/25 09:35 Height 5 ft 10 in 5 ft 10 in Weight: 168 lb 169 lb BMI 24.0 24.2 BP 94/46 L 142/78 H Blood Pressure Location Lt brachial Rt brachial Position Sitting Sitting Respiration 14 18 Pulse 58 L 92 Pulse Source Palpation Monitor Temp 98.6 F 96.8 F L Temp Source Temporal Temporal Pulse Oximetry (%) 97 Oxygen Delivery Method room air Intake Visit Reasons: 1 M FU Chief Complaint: 1 M FU Is patient in pain?: No Allergies shellfish derived Allergy (Mild, Verified 02/14/25 09:36) swelling in throat Medications ?Medication ?Instructions ?Recorded ?Confirmed ?Type enzalutamide 80 mg tablet (Xtandi) 160 mg PO QHS chemo 03/24/23 02/14/25 History spironolactone 25 mg tablet 25 mg PO LUNCH 90 days #90 tabs 06/29/24 02/02/25 Rx aspirin 81 mg tablet,delayed 81 mg PO QDAY #90 tabs 02/14/25 Rx release (Adult Aspirin Regimen) atorvastatin 10 mg tablet 10 mg PO QDAY #90 tabs 09/1302/14/25 Rx sacubitril 49 mg-valsartan 51 mg 1 tab PO BID #60 tabs 11/20/24 01/15/25 Rx tablet (Entresto) carvedilol 25 mg tablet 25 mg PO BID 30 days #180 ta bs 12/11/24 02/02/25 Rx calcium carbonate 500 mg (2.5 x 200 mg calcium (500 12/24/24 02/14/25 Rx mg)) PO TIDCM #0 tabs Lift Chair #1 ea 01/02/25 02/14/25 Rx dapagliflozin propanediol 5 mg 5 mg PO QAM 01/05/25 History tablet glucagon 1 mg solution for 1 mg subcut Q20M PRN 02/02/25 History injection (Glucagon Emergency Kit) magnesium hydroxide 400 mg/5 mL 30 ml PO ONCE PRN 12/2202/14/25 History oral suspension (Milk of Magnesia) furosemide 40 mg tablet 40 mg PO DAILY #90 tabs 09/1502/14/25 Rx empagliflozin 25 mg tablet 25 mg PO QDAY #90 tabs 10/1502/14/25 Rx (Jardiance) Have you fallen in the past year?: Yes (x1) [facility] Medical History (Updated 02/15/25 @ 07:[address] Dyan Kyle MD) Localized skin mass, lump, or swelling Flu vaccine need History of prostate cancer Fracture of femoral neck, right, closed Left humeral fracture Diabetes Difficulty swallowing Non-smoker [...] 2 diabetes mellitus Bone fracture Surgical History Status post hemiarthroplasty of right hip History of dental surgery Family History Father Melanoma Mother Ovarian cancer Social History household members: spouse Smoking Status: Never smoker alcohol intake: never substance use type: does not use what type of physical activity do you participate in: none HPI HPI Chief Complaint: 1 M FU Details: JESS JAMES, is an 89-year-old male presenting for a follow-up visit to review his current condition and balance management. He reports an improvement in his balance as a result of therapy, which has included a transition from using canes to utilizing a walker for increased stability. He is participating in exercises that focus on improving his posture,pulling his shoulders back, and enhancing his ability to stand on one leg. The patient experienced an almost-fall incident recently but was able to correct himself. He attributes the improved stability partially to the wider base of support afforded by the walker compared to his canes. He is status post hemiarthroplasty of his right hip. In addition to balance concerns, the patient is managing Type 2 Diabetes Mellitus. His A1c readings have remained stable. History of CHF and hypertension., with home blood pressure readings ranging aakc180/70 mmHg to 140/90 mmHg. He is currently on Entresto and uses Coreg occasionally when his blood pressure is on the upper end of the spectrum, particularly when it exceeds 130 mmHg. Also currently on spironolactone, furosemide and Jardiance. His past medical history includes prostate cancer, for which treatments have successfully suppressed his PSA levels to 0.02. The patient is aware of his prescription medications being managed with the help of his caregiver/son, Simeon,who ensures compliance with the medication regimen. Other chronic medical conditions are stable. Attestation: Documentation on this patient encounter was supported using ambient scribe technology/ voice AI technology. The patient consented to recording for the purpose of documenting the encounter. Provider reviewed content of the generatednote prior to signature. ROS Const Constitutional: No body ache, chills, excessive sweating, fatigue, fever(s), frequent falls, headache(s), snoring, weight change, sleep problems, abnormal sleep pattern or change in appetite Eyes Eyes: No blurry vision, change in vision, vision loss, dry eyes, eye pain or Light sensitivity ENT ENT: No abnormal hearing, ear or mastoid pain, tinnitus, nasal congestion, headache(s), neck pain or sore throat Resp Respiratory: No cough, shortness of breath, snoring or wheezing Cardio Cardiology: No chest pain at rest, chest pain with exertion, excessive sweating,shortness of breath, dyspnea on exertion, lightheadedness, orthopnea or palpitations Gastro GI: No abdominal pain, change in bowel habits, constipation, cramping, diarrhea,nausea/dyspepsia or vomiting Genitourinary Male: No burning urination, painful urination, urinary incontinence or urinary frequency Musc Musculoskeletal: No abnormal gait, joint pain, back pain, limited range of motion, neck pain, numbness or tingling Skin Skin: No dry skin, redness, lesions, itchy eyes, rash or wounds Neuro Neurology: No abnormal gait, abnormal hearing, frequent falls, headache(s), memory loss, numbness or tingling Psych Psychiatric: No abnormal sleep pattern, No anxiety, No change in appetite, No irritability, No memory loss and No Thoughts of harming yourself/Others Endo Endocrine: No cold intolerance, excessive sweating, fatigue, flushing, heat intolerance, increased thirst/drinking, increased hunger or weight change Aller/Imm Allergy/Immunologic: No itchy eyes, seasonal allergy symptoms, hives or wheezing Micheal/Lymp Hematologic/Lymphatic: No easy bleeding, easy bruising, enlarged lymph nodes or other Exam Const General: cooperative, comfortable and no acute distress Orientation: alert, awake and oriented x3 HENMT Head: normal to inspection, normocephalic and atraumatic Ears: hearing grossly normal bilaterally Eyes General: appearance normal, both eyes and all related structures Neck Neck: normal visual inspection, full ROM, no lymphadenopathy and supple Neck mass: No Thyroid: thyroid normal Carotids: bruit on the left Resp Effort & Inspection: normal respiratory effort and able to speak in complete sentences Auscultation: Bilateral: Clear to Auscultation Cardio Rhythm: regular rhythm Heart Sounds: S1 normal and S2 normal GI Palpation: soft (Nontender, no palpable organomegaly) Neuro General: patient alert, patient awake, patient oriented x3, moves all extremities and CN's II-XI intact bilaterally Extrem General: pedal edema Psych Appearance: grossly normal Mental Status: mental status grossly normal Mood: congruent mood Affect: normal affect Results POC A1C POC A1C 5.4 % Last Edit by Isabel Hill LPN on 02/14/25 09:48 Immunizations Fluad 2024- 65yr up(PF)45 mcg(15 mcgx3)/0.5 mL intramuscular syringe Performing Provider: Dyan Kyle MD Performing Location: [facility] Administered by: Denisse Chavez MA on 02/14/25 16:42 Dose Route Admin Location Dispensed Lot Number Expiration Date Pack age NDC NDC Civil Engineer Helper 45 mcg IM Left Deltoid 0.5 mL [id number] 09/18/25 [id number] [employer], [employer]. VIS Given Date VIS Provided VIS Publication Date 02/14/25 Single Vaccine 24 Eligibility Eligibility Date Funding Source Not Applicable Coding Level of Care Code Off vis,est,level 4 Diagnoses Status post hemiarthroplasty of right hip Z96.641 Debility R53.81 Type 2 diabetes mellitus E11.9 Congestive heart failure (CHF) I50.9 Primary hypertension I10 Hypertension type: primary hypertension History of prostate cancer Z85.46 Venous insufficiency of both lower extremities I87.2 Localized skin mass, lump, or swelling R22.9 Flu vaccine need Z23 Assessment and Plan Assessment and Plan (1) Status post hemiarthroplasty of right hip: Status: Acute Plan: No acute concerns at this time. As above, continues in therapy which has been helpful. Now using the wheeled walker. Continue same. (2) Debility: Status: Chronic Plan: The patient should continue with the prescribed exercises to enhance posture andbalance. The use of a walker will be maintained as it provides greater stabilitythan canes. (3) Type 2 diabetes mellitus: Status: Chronic Plan: His A1c has been rather stable for a while. Currently not on any medication. Continue lifestyle and dietary modifications. (4) Congestive heart failure (CHF): Status: Chronic Plan: No recent exacerbations. Continue Entresto, Jardiance, furosemide and carvedilol with holding parameters. (5) Hypertension: Status: Chronic Qualifiers: Hypertension type: primary hypertension Qualified Code(s): I10 - Essential (primary) hypertension Plan: Overall stable. Blood pressure readings as above. Continue current management. (6) History of prostate cancer: Status: Acute Plan: Doing well on current regimen. Currently on Xtandi oncology/urology. (7) Venous insufficiency of both lower extremities: Status: Chronic Plan: Continue compression, leg elevation and exercise as tolerated. (8) Localized skin mass, lump, or swelling: Status: Acute Plan: Recently noted. Neck, left sided. Non tender and believes he has had something similar which resolved with time. Monitor for now and call with any concerns. (9) Flu vaccine need: Status: Acute Plan: Flu vaccine given. This note was generated with miiCardation software. It may contain incorrectwords, spelling, and punctuation that were not noted in checking the note beforesigning. Orders: Orders POC A1C 02/14/25 Dr. Dyan Kyle MD E11.9 - Type 2 diabetes mellitus without complications Influenza Immunization 02/14/25 Dr. Dyan Kyle MD Z23 - Encounter for immunization Medications: Resumed sacubitril-valsartan 49-51 mg (Entresto) 1 TAB PO BID 60 tabs 11RF KELSIE Andres carvedilol 25 mg PO BID 30 days 180 tabs 3RF [facility] HYDROLOGY PROFESSOR, HYDROLOGY PROFESSOR-C Clinical Quality Measures Falls Risk Screening/Assistive Devices Have you fallen in the past year?: Yes (x1) 02/15/25 0754 <Electronically signed by Dyan heredia MD> Date _ Dyan Kyle MD Cosigner Signature: Date (if applicable) CC: ~ [facility] Work Phone: Progress note Author Bob Snyder [facility] Note Date/Time March 12, 2025 1 2:15pm [facility] [address] [place] [address]. [address] [place] [address] OFFICE VISIT Date of Service: 03/12/25 MR#: [id number] Acct: [id number] Name: JESS JAMES Rep #: [id number] : 1935 Provider: KELSIE Sosa Age/Sex: 89/M [place] [facility] Status: Signed <Statement entered by Daniel Phillips MD - 03/20/25 16:45> Agree with assessment and plan as outlined. HPI HPI History of Present Illness Details: Jess James is an 89-year-old male who presents to the office today for follow- up for monitoring his cardiovascular health. Patient has a history of nonischemic cardiomyopathy with severe LV dysfunction. In October 2023, patient was noted to have an ejection fraction of 10-15% with mild CAD, 2+ mitral regurgitation felt to be related to annular dilation, pulmonary artery pressure elevated at 46, no significant aortic or pulmonic valve disease. Patient has history of chronic left bundle branch block. Patient has been managed on GDMT. Patient has known chronic lower extremity edema and is compliant with compression stockings. Upon presentation today, patient reports LE edema comes and goes R>L, occasionally wears compressions socks. He reports SOB with activity, SOB coming up to office today; however, reports tolerating mobilizing in his home without concerns. He sleeps with 2 pillow under his feet. He sleeps with a wedge due to pain. Patient denies orthopnea. He notes fatigue and weakness. BP at home typically runs around 120/80. Further ROS below. 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 He is not prescribed oxygen. SpO2 has recovered. Pt and son not able to confirm medications today. [facility] Medical History Localized skin mass, lump, or swelling Flu vaccine need History of prostate cancer Fracture of femoral neck, right, closed Left humeral fracture Diabetes Difficulty swallowing Non-smoker [...] 2 diabetes mellitus Bone fracture Surgical History Status post hemiarthroplasty of right hip History of dental surgery Family History Father Melanoma Mother Ovarian cancer Social History household members: spouse Smoking Status: Never smoker alcohol intake: never substance use type: does not use what type of physical activity do you participate in: none ROS Const Const: Positive for fatigue and weakness; Negative for headache(s) Eyes Eyes: Negative for change in vision ENT ENT: Positive for balance problems (Presents with a walker); Negative for headache(s), dizziness or Nosebleed/epistaxis Cardio Chest Pain: No Palpitations: No Edema: Bilateral Resp Respiratory: Positive for SOB with activity and Cough; Negative for SOB at rest or SOB orthopnea\SOB lying down GI GI: Positive for nausea (One time a couple weeks ago) and black,tarry stools; Negative vomiting, heartburn or bright, red blood in stools : Negative for hematuria Musc Musc: Positive for balance problems (Presents with a walker) Neuro Neuro: Positive for weakness; Negative for dizziness, lightheadedness, syncope or headache(s) Endo Endo: Positive for fatigue Cardiology Exam Const Appearance: cooperative, comfortable, no acute distress and well developed; Negative diaphoretic or ill appearing Nutritional Appearance: average body habitus Orientation: alert and oriented x3 Ambulating with a walker Head Head: normal to inspection, normocephalic and atraumatic Ears: hearing grossly normal bilaterally Nose: external nose normal and Negative epistaxis Face and Sinus: face symmetric Eyes General: appearance normal, both eyes and all related structures Eyelids: eyelids normal Conjunctivae: conjunctivae normal; Negative scleral icterus EOM: EOM intact bilaterally Neck Neck: no JVD Carotids: normal carotid upstroke; Negative bruit Neck Mass: Negative Neck mass Chest Chest inspection: normal respiratory effort; Negative respiratory distress, audible wheezes or tachypneic Auscultation: Bilateral: Clear to Auscultation Cardio Rate: regular rate Rhythm: regular rhythm Heart sounds: S1 normal and S2 normal; Negative rub, gallop or murmur Distant heart tones Neuro General: patient alert, patient awake, patient oriented x3 and moves all extremities Skin Skin: no rashes or lesions noted Extremities Pulses: Normal: Right Posterior Tibial Pulse, Left Posterior Tibial Pulse, RightRadial Pulse and Left Radial Pulse Lower Extremity Edema: +3: Bilateral Psych Psychological: normal affect Supplemental Info Supplemental Information Echocardiogram 03/23/2024 Interpretation Summary The left ventricular ejection fraction is 35 %. Normal LV size. There is moderate global hypokinesis of the left ventricle. Contrast injection was performed. Compared to previous study, the left ventricular systolic function has improved.. Cardiac Catheterization 11/15/2023 PROCEDURE(S) PERFORMED DC01-([id number])LHC/COR/LV CLINICAL PROFILE AND INDICATIONS Indications: Cardiomyopathy Heart Failure: NYHA Class: 3, Newly Diagnosed: Yes, Heart Failure Type: Systolic Stress/Imaging Stress/Image Study Performed: No CAD Presentations: Other: sob CONCLUSIONS Severe cardiomyopathy out of proportion to the extent of the right coronary artery lesion. RECOMMENDATIONS Medical therapy CORONARY ANGIOGRAPHY DOMINANCE: Right Dominant LEFT HEART ASSESSMENT Left Ventricular Ejection Fraction: by LV Gram 12 % Global Hypokinesis - Severe Depressed Left Ventricular systolic function LEFT MAIN: Angiographically normal LEFT ANTERIOR DESCENDING ARTERY: Mild luminal irregularities CIRCUMFLEX ARTERY: Mild luminal irregularities RIGHT CORONARY ARTERY: MID RCA: 60 smooth % Stenosis DISTAL RCA: Mild luminal irregularities Carotid Duplex Ultrasound 07/16/2023 Interpretation Summary Mild (<50%) stenosis right extracranial internal carotid. Mild (<50%) stenosis left extracranial internal carotid. Patent and antegrade vertebrals bilaterally. 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 His left heart catheterization at that time demonstrated nonobstructive coronary artery disease. He was titrated on GDMT and repeat echocardiogram demonstrated improvement in his EF to 35%. Plan: Patient reports his carvedilol was discontinued. He believes this was secondary to hypotension. We will reinitiate this starting at 3.125 mg twice daily. He will continue SGLT2 inhibitor, furosemide, Entresto and spironolactone. Recommend he monitor his blood pressure in his home environment and notify our office with any persistently elevated or low readings. 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 Left heart catheterization 11/23/2023 demonstrating 60% smooth stenosis in the mid RCA and mild luminal irregularities in the distal RCA, circumflex artery, LAD. Most recent lipid panel 01/02/2025 demonstrates total cholesterol 121, triglyceride 93, LDL 52 and HDL 51. Plan: Patient will continue statin therapy and aspirin. He is on beta-keisha for his GDMT. (3) Left bundle branch block: Status: Chronic Plan: With EMR review, LBBB documented on EKG in October of 2023. Patient has undergone catheterization demonstrating non-obstructive disease. (4) Hypertension: Status: Chronic Qualifiers: Hypertension type: primary hypertension Qualified Code(s): I10 - Essential (primary) hypertension Plan: BP 127/78 in office today, it is reported to be controlled in home environment. Plan: Reinitiated carvedilol at low-dose, 3.125 mg twice daily. Patient will continue all other medications as previously on. Recommend patient monitor his BP in his home environment and notify our office with persistently elevated or low readings Medications: Changed From carvedilol 25 mg PO BID 30 days 180 tabs 3RF To carvedilol 3.125 mg PO BID 60 tabs 3RF 30 days Plan 1. Will reinitiate carvedilol as part of his GDMT; however, at a lower dose of 3.125 mg twice daily. Patient will follow-up in 6 months or sooner, if needed. Thank you for allowing me to participate in the care of your patient. Please don't hesitate to call if any issues arise. This note was generated using a voice recognition system and there may be incorrect words, spelling, or punctuation that were not noted when reviewing theoffice note prior to saving. Portions of this documentation were copied and pasted from previous office visitnotes to provide a cohesive continuity of the history. The note has been reviewed, edited, and updated, as necessary. Plan Details Follow Up: 6 Months (Phillips) Coding Level of Care Code Off vis,est,level 4 Diagnoses Heart failure with reduced ejection fraction I50.20 Nonobstructive atherosclerosis of coronary artery I25.10 Left bundle branch block I44.7 Primary hypertension I10 Hypertension type: primary hypertension Coding Level of Care Code Off vis,est,level 4 Diagnoses Heart failure with reduced ejection fraction I50.20 Nonobstructive atherosclerosis of coronary artery I25.10 Left bundle branch block I44.7 Primary hypertension I10 Hypertension type: primary hypertension Clinical Quality Measures Falls Risk Screening/Assistive Devices Have you fallen in the past year?: Yes Cardiac Ejection fraction %: 35 03/20/25 1614 <Electronically signed by Bob IGLESIAS> Date _ Bob IGLESIAS 03/20/25 1645<Electronically signed by Daniel Phillips MD> Cosigner Signature: Date (if applicable) Daniel Phillips MD CC: Dr. Dyan Kyle MD ~ [facility] Work Phone: Reason for referral (narrative)No reason for referral information availableWFairfield [facility] Work Phone: Summary Purpose Family History No Family History Records Found Relationship Condition Age at Onset Recorded Date/T kae father Malignant melanoma Unknown mother Malignant neoplasm of ovary Unknown Advance Directives No Advanced Directives Records Found Advance Directive Response Recorded Date/ Time Living Will No February 12, 2023 2:32pm Power of Processing [employer] Supervisor No January 2:32pm Advance Directive Response Recorded Date/ Time Living Will No February 12, 2023 4:45pm Power of Processing [employer] Supervisor No January 4:45pm Advance Directive Response Recorded Date/ Time Living Will No February 12, 2023 3:45pm Power of Processing [employer] Supervisor No January 3:45pm Advance Directive Response Recorded Date/ Time Living Will No December 06, 2023 1:29pm Do you have a Healthcare Power of Processing Tal[employer] And Borate Supervisor? No December 06, 2023 1:29pm Living Will No February 12, 2023 4:45pm Do you have a Healthcare Power of Processing [employer]ate Supervisor? No February 12, 2023 4:45pm Living Will No June 03 6:39pm Do you have a Healthcare Power of Processing [employer]ate Supervisor? No June 03, 2024 6:39pm Advance Directive Response Recorded Date/ Time Living Will No February 12, 2023 4:45pm Do you have a Healthcare Power of Processing [employer]ate Supervisor? No February 12, 2023 4:45pm Advance Directive Response Recorded Date/ Time Living Will No February 12, 2023 4:45pm Do you have a Healthcare Power of Processing [employer] Supervisor? No February 12, 2023 4:45pm Do you have a Healthcare Power of Processing [employer]ate Supervisor? No December 18, 2024 11:55am Advance Directive Response Recorded Date/ Time Living Will No February 12, 2023 4:45pm Do you have a Healthcare Power of Processing [employer]ate Supervisor? No February 12, 2023 4:45pm Do you have a Healthcare Power of Processing [employer]ate Supervisor? No December 18, 2024 3:28pm Advance Directive Response Recorded Date/ Time Living Will No February 12, 2023 3:45pm Do you have a Healthcare Power of Processing [employer] Supervisor? No February 12, 2023 3:45pm Do you have a Healthcare Power of Processing [employer]ate Supervisor? 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 - NPP SENT Reason for [...] humeral fracture Fall History of diabetes mellitus [id number] Pathologic fracture of humerus Chief Complaint 6 [...] humeral fracture Fall History of diabetes mellitus [id number] Pathologic fracture of humerus Chief Complaint 6 [...] Room 4 January 05, 2025 9: 23am Care Center Discharge Follow up December 232024 7:47am [...] Room 4 January 05, 2025 9: 23am Care Center Discharge Follow up December 232024 7:47am EORDERS January 17, 2025 11 :09am Reason for Visit Admit Date Metastasis to [...] right hi p January 05, 2025 8:59am Status post hemiarthroplasty of right hi p January 15, 2025 7:47am Congestive heart failure (CHF) January 152024 7:47am Debility January 15, 2025 7: 47am Hypertension January 15, 2025 7: 47am Chief Complaint Admit Date 6 M FU October 25, 2024 2:05p [...] LAB WORK December 26, 2024 4:0 0am LAB WORK January 02, 2025 4: 00am RIGHT HIP January 05, 2025 8: 59am Room 4 January 05, 2025 9: 23am LAB WORK January 09, 2025 5: 00am Care Center Discharge Follow up December 232024 7:47am EORDERS January 17, 2025 11 :09am RIGHT HIP February 02, 2025 1:30pm room 2 February 02, 2025 1:42pm Reason for Visit Admit Date BPH (benign prostatic hyperplasia) October 25, 2024 [...] right hi p January 05, 2025 8:59am Status post hemiarthroplasty of right hi p January 15, 2025 7:47am Congestive heart failure (CHF) January 152024 7:47am Debility January 15, 2025 7: 47am Hypertension January 15, 2025 7: 47am Chief Complaint Admit Date 6 M FU October 25, 2024 2:05p [...] LAB WORK December 26, 2024 4:0 0am LAB WORK January 02, 2025 4: 00am RIGHT HIP January 05, 2025 8: 59am Room 4 January 05, 2025 9: 23am LAB WORK January 09, 2025 5: 00am Care Center Discharge Follow up December 232024 7:47am EORDERS January 17, 2025 11 :09am RIGHT HIP February 02, 2025 1:30pm room 2 February 02, 2025 1:42pm 1 M FU February 14, 2025 9:23am Reason for Visit Admit Date BPH (benign prostatic hyperplasia) October 25, 2024 [...] right hi p January 05, 2025 8:59am Status post hemiarthroplasty of right hi p January 15, 2025 7:47am Congestive heart failure (CHF) January 152024 7:47am Debility January 15, 2025 7: 47am Hypertension January 15, 2025 7: 47am Fracture of femoral neck, right, closed February 02, 2025 1:30pm Status post hemiarthroplasty of right hi p February 02, 2025 1:30pm Flu vaccine need February 14, 2025 9:23am History of prostate cancer January 9:23am Localized skin mass, lump, or swelling [facility] 2024 9:23am Status post hemiarthroplasty of right hi p February 14, 2025 9:23am Congestive heart failure (CHF) February 14, 2025 9:23am Debility February 14, 2025 9:23am Hypertension February 14, 2025 9:23am Type 2 diabetes mellitus February 14, 2025 9:23am 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 February 14, 2025 9:23am Chief Complaint Admit Date RIGHT HIP FRACTURE December 18, 2024 2:35 [...] LAB WORK December 26, 2024 4:0 0am LAB WORK January 02, 2025 4: 00am RIGHT HIP January 05, 2025 8: 59am Room 4 January 05, 2025 9: 23am LAB WORK January 09, 2025 5: 00am Care Center Discharge Follow up December 232024 7:47am EORDERS January 17, 2025 11 :09am RIGHT HIP February 02, 2025 1:30pm room 2 February 02, 2025 1:42pm 1 M February 14, 2025 9:23am 6 M March 12, 2025 1 0:07am RIGHT HIP March 16, 2025 1 :34pm Room 3 March 16, 2025 1 :43pm zometa March 22, 2025 1 2:45pm F/U - LABS - LUPRON/ZOMETA March 22, 2025 12:50pm Reason for Visit Admit Date Fracture of femoral neck, right, closed December 18, 2024 2:35pm Status post hemiarthroplasty of right hi p December 18, 2024 2:35pm Fracture of femoral neck, right, closed January 05, 2025 8:59am Status post hemiarthroplasty of right hi p January 05, 2025 8:59am Status post hemiarthroplasty of right hi p January 15, 2025 7:47am Congestive heart failure (CHF) January 152024 7:47am Debility January 15, 2025 7: 47am Hypertension January 15, 2025 7: 47am Fracture of femoral neck, right, closed February 02, 2025 1:30pm Status post hemiarthroplasty of right hi p February 02, 2025 1:30pm Flu vaccine need February 14, 2025 9:23am History of prostate cancer January 9:23am Localized skin mass, lump, or swelling S eptember 2024 9:23am Status post hemiarthroplasty of right hi p February 14, 2025 9:23am Congestive heart failure (CHF) February 14, 2025 9:23am Debility February 14, 2025 9:23am Hypertension February 14, 2025 9:23am Type 2 diabetes mellitus February 14, 2025 9:23am 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 February 14, 2025 9:23am Heart failure with reduced ejection frac tion March 12, 2025 10:07am Hypertension March 12, 2025 1 0:07am Left bundle branch block March 12, 2 025 10:07am Nonobstructive atherosclerosis of chap[place] ry artery March 12, 2025 10:07am Fracture of femoral neck, right, closed March 16, 2025 1:34pm Status post hemiarthroplasty of right hi p March 16, 2025 1:34pm Metastasis to bone March 22, 2025 1 2:50pm Pathologic fracture of humerus February 232024 12:50pm Prostate cancer March 22, 2025 1 2:50pm Reason for Referral Specialty Diagnoses / Procedures Referred By Ailyn valera Referred To Contact Diagnoses 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, initial encounter Procedures XR HUMERUS LEFT Lonnie Fischer MD [address] [place] [address] Referral ID Status Reason Start Date Expiration Date V isits Requested Visits Authorized [id number] New Request 03/12/2023 04/05/2024 1 1 Additional Source Comments (unrecognized sect ion and content) No Status Records FoundNo Status Records FoundNo Status Records Found INFORMATION SOURCE (unrecogn ized section and content) DATE CREATED AUTHOR 06/20/2021 [facility] DATE CREATED AUTHOR AUTHOR'S ORGANIZ ATION 11/11/2023 [facility] DATE CREATED AUTHOR AUTHOR'S ORGANIZ ATION 04/05/2025 [facility] Goals (unrecognized section and content) Goals may [...] this informatio n is protected by the [facility] Confidentiality of Alcohol and Drug Abuse Patient Records regulations: The Federal rules restrict any use of the information to criminally investigate or prosecute any alcohol or drug abuse patient.[facility] Reason for Visit (unrecogniz ed section and content) Reason Comments Refill Request Specialty Diagnoses / Procedures Referred By Contac t Referred To Contact Diagnoses 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 Tian Roberto MD Family Provider Active Dr. Dyan Kyle MD Primary Care Provider Active Team Status: Inactive Member Role Status Dates Dr. Dyan Kyle MD Primary Care Fredi chávez, Attending Provider, Referring Provider Active Team Status: Inactive Member Role Status Dates Dr. Dyan Kyle MD Primary Care Provider, Refer ring Provider Active Albin IGLESIAS, [place] Attending Provider Active Team Status: Active Member [...] Ted Lee MD Attending Provider, Other Provi mraie Active Team Status: Inactive Member Role Status [...] Gusman MD Emergency Provider Active Dr. Mariana Bronw MD Admit Provider, Other Provider Active Dr. [...] Dr. Carolina Mcgee MD Attending Provider Active Staff Counselor Relationship Specialty Start Date End Date Dyan Kyle MD [address] [phone] PCP - General Internal Medicine 03/01/23 Carolina Mcgee [facility] [address] [place], [place] [phone] Oncologist Medical Oncology 03/01/23 Eileen Molina, RN Registered Nurse 03/01/23 Team Status: Inactive Member Role Status Dates Dr. Dyan Kyle MD Primary Care Provider Active Dr. Carolina Mcgee MD Attending Provider Active Team Status: Active Member Role Status Dates Dr. Dyan Kyle MD Primary Care Provider, Atten ding Provider Active Dr. Carolina Mcgee MD Other Provider Active Staff Counselor Relationship Specialty Start Date End Date Dyan Kyle MD [address] [phone] PCP - General Internal Medicine 03/01/23 Carolina Mcgee [facility] [address] [facility] [address] [place], [place] [id number] Oncologist Medical Oncology 03/01/23 Eileen Molina, MAVIS Registered Nurse 03/01/23 Team Status: Inactive Member Role Status Dates Dr. Dyan Kyle MD Primary Care Provider, Refer ring Provider Active Rachael Posada HYDROLOGY PROFESSOR, HYDROLOGY PROFESSOR-C Attending Provider Active Team Status: Inactive Member [...] 23, 2024 End: May 23, 2024 Rachael oPsada NP, HYDROLOGY PROFESSOR-C Attending Provider Active Start: May 23, 2024 [...] , DO Admit Provider Active Start: December 18, 2024 End: December 24, 2024 Dr. Amado Jean , DO Other Provider Active Start: December 18, [...] December 19, 2024 Dr. Amado Jean , Admit Provider Active Start: December 19, 2024 Dr. Amado Jean , Other Provider Active Start: December 19, 2024 [...] December 19, 2024 Dr. Win Alberto , Emergency Provider Active Start: December 19, 2024 [...] December 20, 2024 Dr. Win Alberto , Emergency Provider Active Start: December 20, 2024 [...] December 22, 2024 Dr. Win Alberto , Emergency Provider Active Start: December 22, 2024 Dr. Amado Jean , Admit Provider Active Start: December 22, 2024 Dr. Amado Jean , Other Provider Active Start: December 22, 2024 Dr. Bj Hamilton MD Other Provider Active Star t: December 22, 2024 Dr. Radha Cope DO Attending Provider [...] Jean , Admit Provider Active Start: December 24, 2024 [...] Jean , Other Provider Active Start: December 18, 2024 [...] December 19, 2024 Dr. Amado Jean , Other Provider Active Start: December 19, 2024 [...] December 20, 2024 Dr. Radha Cope , Other Provider Active Start : December 20, [...] Active S tart: December 21, 2024 Dr. aRdha Cope , DO Other Provider Active Start [...] December 22, 2024 Dr. Amado Jean , Admit Provider Active Start: December 22, 2024 Dr. Amado Jean , Other Provider Active Start: December 22, 2024 [...] Start: December 24, 2024 Dr. Win Alberto , DO Emergency Provider Active Start: December 24, [...] January 15, 2025 End: January 15, 2025 Team Status: Active Member Role/Relationship Status Dates Dr. Dyan Kyle MD Primary Care Provider Active Start: December 19, 2024 Dr. Win Alberto DO Emergency Provider Active Start: December 19, 2024 Dr. Amado Jean , Admit Provider Active Start: December 19, 2024 Dr. Amado Jean , Other Provider Active Start: December 19, 2024 Dr. Bj Hamilton MD Attending Provider Active Start: December 19, 2024 Dr. Bj Hamilton MD Other Provider Active Star t: December 19, 2024 Dr. Radha Cope DO Referring Provider Active S tart: December 19, 2024 Dr. Radha Cope DO Other Provider Active Start : December 19, 2024 Team Status: Inactive Member Role/Relationship Status Dates Dr. Dyan Kyle MD Primary Care Provider Active Start: January 17, 2025 End: January 17, 2025 Dr. Dyan Kyle MD Attending Provider Active Start: January 17, 2025 End: January 17, 2025 Dr. Dyan Kyle MD Referring Provider Active Start: January 17, 2025 End: January 17, 2025 Team Status: Inactive Member Role/Relationship Status [...] 19, 2024 Dr. Radha Cope , DO Referring Provider Active S tart: December 19, 2024 [...] Start: December 24, 2024 Dr. Win Alberto , DO Emergency Provider Active Start: December 24, 2024 Dr. Amado Jean , DO Admit Provider Active Start: December 24, 2024 Dr. Amado Jean , DO Other Provider Active Start: December 24, [...] Attending Provider Active Start: January 02, 2025 Dr. Arin ARGUETA MD Referring Provider Active Start: January 02, 2025 Team [...] January 15, 2025 End: January 15, 2025 Team Status: Inactive Member Role/Relationship Status Dates Dr. Dyan Kyle MD Primary Care Provider Active Start: January 17, 2025 End: January 17, 2025 Dr. Dyan Kyle MD Attending Provider Active Start: January 17, 2025 End: January 17, 2025 Dr. Dyan Kyle MD Referring Provider Active Start: January 17, 2025 End: January 17, 2025 Team Status: Active Member Role/Relationship Status Dates Dr. Dyan Kyle MD Primary Care Provider Active Start: February 02, 2025 Dr. Dyan Kyle MD Referring Provider Active Start: February 02, 2025 NICOLÁS Barnes Attending Provider Active Start: February 02, 2025 Team Status: Inactive Member Role/Relationship Status Dates Dr. Dyan Kyle MD Primary Care Provider Active Start: February 02, 2025 End: February 02, 2025 Dr. Yadiel Bettencourt MD Attending Provider Active S tart: February 02, 2025 End: February 02, 2025 Team Status: Inactive Member Role/Relationship Status Dates Dr. Dyan Kyle MD Primary Care Provider Active Start: February 02, 2025 End: February 02, 2025 Dr. Dyan Kyle MD Referring Provider Active Start: February 02, 2025 End: February 02, 2025 NICOLÁS Barnes Attending Provider Active Start: February 02, 2025 End: February 02, 2025 Team Status: Active Member Role/Relationship Status Dates Dr. Dyan Kyle MD Primary care physician Activ e Team Status: Inactive Member Role/Relationship Status Dates Dr. Dyan Kyle MD Primary care physician Activ e Start: October 25, 2024 End: October 25, 2024 Dr. Dyan Kyle MD Attending physician Active Start: October 25, 2024 End: October 25, 2024 Dr. Dyan Kyle MD Referring Provider Active Start: October 25, 2024 End: October 25, 2024 Team Status: Inactive Member Role/Relationship Status Dates Dr. Dyan Kyle MD Primary care physician Activ e Start: November 07, 2024 End: November 07, 2024 Dr. Dyan Kyle MD Referring Provider Active Start: November 07, 2024 End: November 07, 2024 Dr. Carolina Mcgee MD Attending physician Active Start: November 07, 2024 End: November 07, 2024 Team Status: Active Member Role/Relationship Status Dates Dr. Dyan Kyle MD Primary care physician Activ e Start: November 07, 2024 Dr. Carolina Mcgee MD Attending physician Active Start: November 07, 2024 Dr. Carolina Mcgee MD Referring Provider Active Start: November 07, 2024 Team Status: Inactive Member Role/Relationship Status Dates Dr. Dyan Kyle MD Primary care physician Activ e Start: December 18, 2024 End: December 24, 2024 Dr. Win Alberto , DO Emergency Departm ent Physician Active Start: December 18, 2024 End: December 24, 2024 Dr. Amado Jean DO Admitting physician Active Start: December 18 End: December 24, 2024 Dr. Amado Jean DO Nurse Practitioner Active Start: December 18 End: December 24, 2024 Dr. Bj Hamilton MD Nurse Practitioner Active Start: December 18, 2024 End: December 24, 2024 Dr. Radha Cope DO Attending physician Active Start: December 18, 2024 End: December 24, 2024 Team Status: Active Member Role/Relationship Status Dates Dr. Dyan Kyle MD Primary care physician Activ e Start: December 19, 2024 Dr. Win Alberto , DO Emergency Departm ent Physician Active Start: December 19, 2024 Dr. Amado Jean DO Admitting physician Active Start: December 19 Dr. Amado Jean DO Nurse Practitioner Active Start: December 19 Dr. Bj Hamilton MD Nurse Practitioner Active Start: December 19, 2024 Dr. Radha Cope , Attending physician Active Start: December 19, 2024 Dr. Radha Cope DO Nurse Practitioner Active S tart: December 19, 2024 Team Status: Active Member Role/Relationship Status Dates Dr. Dyan Kyle MD Primary care physician Activ e Start: December 19, 2024 Dr. Win Alberto , DO Emergency Departm ent Physician Active Start: December 19, 2024 Dr. Amado Jean , DO Admitting physician Active Start: December 19 Dr. Amado Jean , DO Nurse Practitioner Active Start: December 19 Dr. Bj Hamilton MD Attending physician Active Start: December 19, 2024 Dr. Bj Hamilton MD Nurse Practitioner Active Start: December 19, 2024 Dr. Radha Cope , DO Referring Provider Active S tart: December 19, 2024 Dr. Radha Cope , DO Nurse Practitioner Active S tart: December 19, 2024 Team Status: Active Member Role/Relationship Status Dates Dr. Dyan Kyle MD Primary care physician Activ e Start: December 20, 2024 Dr. Win Alberto , DO Emergency Departm ent Physician Active Start: December 20, 2024 Dr. Amado Jean , DO Admitting physician Active Start: December 20 Dr. Amado Jean , DO Nurse Practitioner Active Start: December 20 Dr. Bj Hamilton MD Nurse Practitioner Active Start: December 20, 2024 Dr. Radha Cope , DO Attending physician Active Start: December 20, 2024 Dr. Radha Cope , DO Nurse Practitioner Active S tart: December 20, 2024 Team Status: Active Member Role/Relationship Status Dates Dr. Dyan Kyle MD Primary care physician Activ e Start: December 20, 2024 Dr. Win Alberto , DO Emergency Departm ent Physician Active Start: December 20, 2024 Dr. Amado Jean , DO Admitting physician Active Start: December 20 Dr. Amado Jean , DO Nurse Practitioner Active Start: December 20 Dr. Bj Hamilton MD Attending physician Active Start: December 20, 2024 Dr. Bj Hamilton MD Nurse Practitioner Active Start: December 20, 2024 Dr. Radha Cope , DO Nurse Practitioner Active S tart: December 20, 2024 Team Status: Active Member Role/Relationship Status Dates Dr. Dyan Kyle MD Primary care physician Activ e Start: December 21, 2024 Dr. Win Alberto , DO Emergency Departm ent Physician Active Start: December 21, 2024 Dr. Amado Mosteller , DO Admitting physician Active Start: December 21 Dr. Amado Jean DO Nurse Practitioner Active Start: December 21 Dr. Bj Hamilton MD Nurse Practitioner Active Start: December 21, 2024 Dr. Radha Cope , Attending physician Active Start: December 21, 2024 Dr. Radha Cope , DO Nurse Practitioner Active S tart: December 21, 2024 Team Status: Active Member Role/Relationship Status Dates Dr. Dyan Kyle MD Primary care physician Activ e Start: December 22, 2024 Dr. Win Alberto , DO Emergency Departm ent Physician Active Start: December 22, 2024 Dr. Amado Jean DO Admitting physician Active Start: December 22 Dr. Amado Jean DO Nurse Practitioner Active Start: December 22 Dr. Bj Hamilton MD Nurse Practitioner Active Start: December 22, 2024 Dr. Radha Cope , DO Nurse Practitioner Active S tart: December 22, 2024 KELSIE Pisano Attending physician Active Sta rt: December 22, 2024 Team Status: Active Member Role/Relationship Status Dates Dr. Dyan Kyle MD Primary care physician Activ e Start: December 22, 2024 Dr. Win Alberto , DO Emergency Departm ent Physician Active Start: December 22, 2024 Dr. Amado Jean DO Admitting physician Active Start: December 22 Dr. Amado Jean DO Nurse Practitioner Active Start: December 22 Dr. Bj Hamilton MD Nurse Practitioner Active Start: December 22, 2024 Dr. Radha Cope , Attending physician Active Start: December 22, 2024 Dr. Radha Cope , DO Nurse Practitioner Active S tart: December 22, 2024 Team Status: Active Member Role/Relationship Status Dates Dr. Dyan Kyle MD Primary care physician Activ e Start: December 23, 2024 Dr. Win Alberto , DO Emergency Departm ent Physician Active Start: December 23, 2024 Dr. Amado Jean DO Admitting physician Active Start: December 23 Dr. Amado Jean DO Nurse Practitioner Active Start: December 23 Dr. Bj Hamilton MD Nurse Practitioner Active Start: December 23, 2024 Dr. Radha Cope , Attending physician Active Start: December 23, 2024 Dr. Radha Cope DO Nurse Practitioner Active S tart: December 23, 2024 Team Status: Active Member Role/Relationship Status Dates Dr. Dyan Kyle MD Primary care physician Activ e Start: December 24, 2024 Dr. Win Alberto DO Emergency Departm ent Physician Active Start: December 24, 2024 Dr. Amado Jean DO Admitting physician Active Start: December 24 Dr. Amado Jean , Nurse Practitioner Active Start: December 24 Dr. Bj Hamilton MD Nurse Practitioner Active Start: December 24, 2024 Dr. Radha Cope DO Attending physician Active Start: December 24, 2024 Dr. Radha Cope DO Nurse Practitioner Active S tart: December 24, 2024 Team Status: Active Member Role/Relationship Status Dates Dr. Dyan Kyle MD Primary care physician Activ e Start: December 26, 2024 Dr. Arin ARGUETA MD Attending physician Active Start: December 26, 2024 Dr. Arin ARGUETA MD Referring Provider Active Start: December 26, 2024 Team Status: Active Member Role/Relationship Status Dates Dr. Dyan Kyle MD Primary care physician Activ e Start: January 02, 2025 Dr. Arin ARGUETA MD Attending physician Active Start: January 02, 2025 Dr. Arin ARGUETA MD Referring Provider Active Start: January 02, 2025 Team Status: Inactive Member Role/Relationship Status Dates Dr. Dyan Kyle MD Primary care physician Activ e Start: January 05, 2025 End: January 05, 2025 Dr. Dyan Kyle MD Referring Provider Active Start: January 05, 2025 End: January 05, 2025 NICOLÁS Barnes Attending physician Active Start: January 05, 2025 End: January 05, 2025 Team Status: Inactive Member Role/Relationship Status Dates Dr. Dyan Kyle MD Primary care physician Activ e Start: January 05, 2025 End: January 05, 2025 Dr. Yadiel Bettencourt MD Attending physician Active Start: January 05, 2025 End: January 05, 2025 Team Status: Active Member Role/Relationship Status Dates Dr. Dyan Kyle MD Primary care physician Activ e Start: January 09, 2025 Dr. Arin ARGUETA MD Attending physician Active Start: January 09, 2025 Team Status: Inactive Member Role/Relationship Status Dates Dr. Dyan Kyle MD Primary care physician Activ e Start: January 15, 2025 End: January 15, 2025 Dr. Dyan Kyle MD Attending physician Active Start: January 15, 2025 End: January 15, 2025 Dr. Dyan Kyle MD Referring Provider Active Start: January 15, 2025 End: January 15, 2025 Team Status: Inactive Member Role/Relationship Status Dates Dr. Dyan Kyle MD Primary care physician Activ e Start: January 17, 2025 End: January 17, 2025 Dr. Dyan Kyle MD Attending physician Active Start: January 17, 2025 End: January 17, 2025 Dr. Dyan Kyle MD Referring Provider Active Start: January 17, 2025 End: January 17, 2025 Team Status: Inactive Member Role/Relationship Status Dates Dr. Dyan Kyle MD Primary care physician Activ e Start: February 02, 2025 End: February 02, 2025 Dr. Dyan Kyle MD Referring Provider Active Start: February 02, 2025 End: February 02, 2025 NICOLÁS Barnes Attending physician Active Start: February 02, 2025 End: February 02, 2025 Team Status: Inactive Member Role/Relationship Status Dates Dr. Dyan Kyle MD Primary care physician Activ e Start: February 02, 2025 End: February 02, 2025 Dr. Yadiel Bettencourt MD Attending physician Active Start: February 02, 2025 End: February 02, 2025 Team Status: Inactive Member Role/Relationship Status Dates Dr. Dyan Kyle MD Primary care physician Activ e Start: February 14, 2025 End: February 14, 2025 Dr. Dyan Kyle MD Attending physician Active Start: February 14, 2025 End: February 14, 2025 Dr. Dyan Kyle MD Referring Provider Active Start: February 14, 2025 End: February 14, 2025 Team Status: Inactive Member Role/Relationship Status Dates Dr. Dyan Kyle MD Primary care physician Activ e Start: December 18, 2024 End: December 24, 2024 Dr. Win Alberto , DO Emergency Departm ent Physician Active Start: December 18, 2024 End: December 24, 2024 Dr. Amado Jean DO Admitting physician Active Start: December 18 End: December 24, 2024 Dr. Amado Jean , DO Nurse Practitioner Active Start: December 18 End: December 24, 2024 Dr. Bj Hamilton MD Nurse Practitioner Active Start: December 18, 2024 End: December 24, 2024 Dr. Radha Cope , DO Attending physician Active Start: December 18, 2024 End: December 24, 2024 Team Status: Active Member Role/Relationship Status Dates Dr. Dyan Kyle MD Primary care physician Activ e Start: December 19, 2024 Dr. Win Alberto , DO Emergency Departm ent Physician Active Start: December 19, 2024 Dr. Amado Jean , Admitting physician Active Start: December 19 Dr. Amado Jean , DO Nurse Practitioner Active Start: December 19 Dr. Bj Hamilton MD Nurse Practitioner Active Start: December 19, 2024 Dr. Radha Cope , DO Attending physician Active Start: December 19, 2024 Dr. Radha Cope , Nurse Practitioner Active S tart: December 19, 2024 Team Status: Active Member Role/Relationship Status Dates Dr. Dyan Kyle MD Primary care physician Activ e Start: December 19, 2024 Dr. Win Alberto , DO Emergency Departm ent Physician Active Start: December 19, 2024 Dr. Amado Jean , DO Admitting physician Active Start: December 19 Dr. Amado Jean , Nurse Practitioner Active Start: December 19 Dr. Bj Hamilton MD Attending physician Active Start: December 19, 2024 Dr. Bj Hamilton MD Nurse Practitioner Active Start: December 19, 2024 Dr. Radha Cope , DO Referring Provider Active S tart: December 19, 2024 Dr. Radha Cope , DO Nurse Practitioner Active S tart: December 19, 2024 Team Status: Active Member Role/Relationship Status Dates Dr. Dyan Kyle MD Primary care physician Activ e Start: December 20, 2024 Dr. Win Alberto , DO Emergency Departm ent Physician Active Start: December 20, 2024 Dr. Amado Jean , DO Admitting physician Active Start: December 20 Dr. Amado Jean , DO Nurse Practitioner Active Start: December 20 Dr. Bj Hamilton MD Nurse Practitioner Active Start: December 20, 2024 Dr. Radha Cope , DO Attending physician Active Start: December 20, 2024 Dr. Radha Cope , DO Nurse Practitioner Active S tart: December 20, 2024 Team Status: Active Member Role/Relationship Status Dates Dr. Dyan Kyle MD Primary care physician Activ e Start: December 20, 2024 Dr. Win Alberto , DO Emergency Departm ent Physician Active Start: December 20, 2024 Dr. Amado Jean DO Admitting physician Active Start: December 20 Dr. Amado Jean , DO Nurse Practitioner Active Start: December 20 Dr. Bj Hamilton MD Attending physician Active Start: December 20, 2024 Dr. Bj Hamilton MD Nurse Practitioner Active Start: December 20, 2024 Dr. Radha Cope , DO Nurse Practitioner Active S tart: December 20, 2024 Team Status: Active Member Role/Relationship Status Dates Dr. Dyan Kyle MD Primary care physician Activ e Start: December 21, 2024 Dr. Win Alberto , DO Emergency Departm ent Physician Active Start: December 21, 2024 Dr. Amado Jean , Admitting physician Active Start: December 21 Dr. Amado Jean , DO Nurse Practitioner Active Start: December 21 Dr. Bj Hamilton MD Nurse Practitioner Active Start: December 21, 2024 Dr. Radha Cope , DO Attending physician Active Start: December 21, 2024 Dr. Radha Cope , DO Nurse Practitioner Active S tart: December 21, 2024 Team Status: Active Member Role/Relationship Status Dates Dr. Dyan Kyle MD Primary care physician Activ e Start: December 22, 2024 Dr. Win Alberto , DO Emergency Departm ent Physician Active Start: December 22, 2024 Dr. Amado Jean DO Admitting physician Active Start: December 22 Dr. Amado Jean , DO Nurse Practitioner Active Start: December 22 Dr. Bj Hamilton MD Nurse Practitioner Active Start: December 22, 2024 Dr. Radha Cope , Nurse Practitioner Active S tart: December 22, 2024 KELSIE Pisano Attending physician Active Sta rt: December 22, 2024 Team Status: Active Member Role/Relationship Status Dates Dr. Dyan Kyle MD Primary care physician Activ e Start: December 22, 2024 Dr. Win Alberto , DO Emergency Departm ent Physician Active Start: December 22, 2024 Dr. Amado Jean DO Admitting physician Active Start: December 22 Dr. Amado Jean DO Nurse Practitioner Active Start: December 22 Dr. Bj Hamilton MD Nurse Practitioner Active Start: December 22, 2024 Dr. Radha Cope DO Attending physician Active Start: December 22, 2024 Dr. Radha Cope , Nurse Practitioner Active S tart: December 22, 2024 Team Status: Active Member Role/Relationship Status Dates Dr. Dyan Kyle MD Primary care physician Activ e Start: December 23, 2024 Dr. Win Alberto , DO Emergency Departm ent Physician Active Start: December 23, 2024 Dr. Amado Jean DO Admitting physician Active Start: December 23 Dr. Amado Jean DO Nurse Practitioner Active Start: December 23 Dr. Bj Hamilton MD Nurse Practitioner Active Start: December 23, 2024 Dr. Radha Cope , Attending physician Active Start: December 23, 2024 Dr. Radha Cope , Nurse Practitioner Active S tart: December 23, 2024 Team Status: Active Member Role/Relationship Status Dates Dr. Dyan Kyle MD Primary care physician Activ e Start: December 24, 2024 Dr. Win Alberto , DO Emergency Departm ent Physician Active Start: December 24, 2024 Dr. Amado Jean DO Admitting physician Active Start: December 24 Dr. Amado Jean DO Nurse Practitioner Active Start: December 24 Dr. Bj Hamilton MD Nurse Practitioner Active Start: December 24, 2024 Dr. Radha Cope , Attending physician Active Start: December 24, 2024 Dr. Radha Cope DO Nurse Practitioner Active S tart: December 24, 2024 Team Status: Active Member Role/Relationship Status Dates Dr. Dyan Kyle MD Primary care physician Activ e Start: December 26, 2024 Dr. Arin ARGUETA MD Attending physician Active Start: December 26, 2024 Dr. Arin ARGUETA MD Referring Provider Active Start: December 26, 2024 Team Status: Active Member Role/Relationship Status Dates Dr. Dyan Kyle MD Primary care physician Activ e Start: January 02, 2025 Dr. Arin ARGUETA MD Attending physician Active Start: January 02, 2025 Dr. Arin ARGUETA MD Referring Provider Active Start: January 02, 2025 Team Status: Inactive Member Role/Relationship Status Dates Dr. Dyan Kyle MD Primary care physician Activ e Start: January 05, 2025 End: January 05, 2025 Dr. Dyan Kyle MD Referring Provider Active Start: January 05, 2025 End: January 05, 2025 NICOLÁS Barnes Attending physician Active Start: January 05, 2025 End: January 05, 2025 Team Status: Inactive Member Role/Relationship Status Dates Dr. Dyan Kyle MD Primary care physician Activ e Start: January 05, 2025 End: January 05, 2025 Dr. Yadiel Bettencourt MD Attending physician Active Start: January 05, 2025 End: January 05, 2025 Team Status: Active Member Role/Relationship Status Dates Dr. Dyan Kyle MD Primary care physician Activ e Start: January 09, 2025 Dr. Arin ARGUETA MD Attending physician Active Start: January 09, 2025 Team Status: Inactive Member Role/Relationship Status Dates Dr. Dyan Kyle MD Primary care physician Activ e Start: January 15, 2025 End: January 15, 2025 Dr. Dyan Kyle MD Attending physician Active Start: January 15, 2025 End: January 15, 2025 Dr. Dyan Kyle MD Referring Provider Active Start: January 15, 2025 End: January 15, 2025 Team Status: Inactive Member Role/Relationship Status Dates Dr. Dyan Kyle MD Primary care physician Activ e Start: January 17, 2025 End: January 17, 2025 Dr. Dyan Kyle MD Attending physician Active Start: January 17, 2025 End: January 17, 2025 Dr. Dyan Kyle MD Referring Provider Active Start: January 17, 2025 End: January 17, 2025 Team Status: Inactive Member Role/Relationship Status Dates Dr. Dyan Kyle MD Primary care physician Activ e Start: February 02, 2025 End: February 02, 2025 Dr. Dyan Kyle MD Referring Provider Active Start: February 02, 2025 End: February 02, 2025 NICOLÁS Barnes Attending physician Active Start: February 02, 2025 End: February 02, 2025 Team Status: Inactive Member Role/Relationship Status Dates Dr. Dyan Kyle MD Primary care physician Activ e Start: February 02, 2025 End: February 02, 2025 Dr. Yadiel Bettencourt MD Attending physician Active Start: February 02, 2025 End: February 02, 2025 Team Status: Inactive Member Role/Relationship Status Dates Dr. Dyan Kyle MD Primary care physician Activ e Start: February 14, 2025 End: February 14, 2025 Dr. Dyan Kyle MD Attending physician Active Start: February 14, 2025 End: February 14, 2025 Dr. Dyan Kyle MD Referring Provider Active Start: February 14, 2025 End: February 14, 2025 Team Status: Inactive Member Role/Relationship Status Dates Dr. Dyan Kyle MD Primary care physician Activ e Start: March 12, 2025 End: March 12, 2025 Dr. Dyan Kyle MD Referring Provider Active Start: March 12, 2025 End: March 12, 2025 KELSIE Andres Attending physician Active S tart: March 12, 2025 End: March 12, 2025 Team Status: Inactive Member Role/Relationship Status Dates Dr. Dyan Kyle MD Primary care physician Activ e Start: March 16, 2025 End: March 16, 2025 Dr. Dyan Kyle MD Referring Provider Active Start: March 16, 2025 End: March 16, 2025 NICOLÁS Barnes Attending physician Active Start: March 16, 2025 End: March 16, 2025 Team Status: Inactive Member Role/Relationship Status Dates Dr. Dyan Kyle MD Primary care physician Activ e Start: March 16, 2025 End: March 16, 2025 Dr. Yadiel Bettencourt MD Attending physician Active Start: March 16, 2025 End: March 16, 2025 Team Status: Active Member Role/Relationship Status Dates Dr. Dyan Kyle MD Primary care physician Activ e Start: March 22, 2025 Dr. Carolina Mcgee MD Attending physician Active Start: March 22, 2025 Dr. Carolina Mcgee MD Referring Provider Active Start: March 22, 2025 Team Status: Inactive Member Role/Relationship Status Dates Dr. Dyan Kyle MD Primary care physician Activ e Start: March 22, 2025 End: March 22, 2025 Dr. Dyan Kyle MD Referring Provider Active Start: March 22, 2025 End: March 22, 2025 NICOLÁS Lopez NP Attending physician Active Start: March 22, 2025 End: March 22, 2025 FOR RECORDS PERTAINING TO PATIENTS WHO [...] BE BASED ON THE PRIMARY CLINICAL RECORDS. [facility] [employer] [facility]. provides no warranty or guarantee of the accuracy or completeness of information in this document.
[2025-04-27 17:56] LABS: Hematocrit 40.7 % (40-54); Hemoglobin 13.3 g/dL (13.0-16.5); Immature Granulocytes Count 0.030 X10^3/uL (0.0-0.0); Mean Corp Hgb Conc 32.7 g/dL (32-36); Mean Corpuscular Volume 104.1 fL (80-94); Mean Platelet Vol. 10.2 fl (6.2-12.0); NRBC Flagged by Analyzer 0 % (0-5); Platelet Count 291 K/mm3 (150-450); RBC Distribution Width CV 13.9 % (11.6-14.6); RBC Distribution Width SD 53.3 fl (35.1-43.9); Red Blood Count 3.91 M/mm3 (4.6-6.2); White Blood Count 7.0 K/mm3 (4.4-11.0)
[2025-04-27 18:04] LABS: AST(SGOT) 17 U/L (<=37); Alanine Aminotransfer ALT/SGPT 5 U/L (<=46); Albumin, Serum 3.7 g/dL (3.4-4.8); Alkaline Phosphatase 64 U/L (40-129); Anion Gap 14 (5-15); BUN 31 mg/dL (4-19); BUN/Creat Ratio 23.0 RATIO (10-20); Calcium,Total 9.4 mg/dL (7.6-11.0); Carbon Dioxide 23.7 mmol/L (21.0-32.0); Chloride 107 mmol/L (98-108); Ferritin 155 ng/mL (37-417); Globulin 3.3 g/dL (2.2-4.2); Glucose 126 mg/dL (70-99); Iron 67 ug/dL (65-175); Iron Binding Capacity,Total 265 ug/dL (250-450); Iron Binding Capacity,Unsat 198 ug/dL (228-428); Potassium 3.9 mmol/L (3.3-5.1); Pro- Brain NATRIURETIC PEPTIDE 1872 pg/mL (<=1800)
== END | disposition home or self-care (01) ==
LOC: MTLAB 16:03
PROVIDERS: PCP Internal Medicine; Referring Provider Internal Medicine; Visit Provider Internal Medicine
DX: E11.9 Type 2 diabetes mellitus without complications (principal); I50.20 Unspecified systolic (congestive) heart failure; D64.9 Anemia, unspecified
CPT/HCPCS: 36415; 80053; 82728; 83540; 83550; 83880; 84439; 84443; 85025